=== PATIENT | female | born 1940 | race Caucasian/White ===

== ENCOUNTER → 2018-01-21 10:38 | Outpatient (POV) | payer MEDICARE, BC, SELFPAY ==
[2018-01-21 11:17] VITALS: BP 136/67; PULSE 91; RESP 18; O2SAT 98; BMI 35.6
--- NOTE | 2018-01-21 11:36 | HMH.PAINSOAP ---
[facility] Pain Management SOAP Note Subjective:: She is a pleasant 77-year-old white female who presents today for medication refills. Patient has been in [place] for the last 5 months. Patient has been able to stretch her medication over this time. Patient states that she is ready for her Dougherty 5 mg 1 p.o. 3 times daily refill. Patient is being treated for pain secondary to degenerative disc disease of lumbar spine with lumbar radiculopathy. Patient has done well with epidurals in the past. Patient denies any side effects or medication. Patient is taking Lyrica from her primary care physician and states that it does well for her. Patient's COLTON #[id number] reviewed and appropriate. Patient will go for UDS today. She rates her pain a 6 out of 10 mainly in her back. ROS General: no recent weight change, no fever, no sleep disturbances Respiratory: no cough, no shortness of air, no recurring pulmonary infections Cardiovascular/Peripheral Vascular: No chest pain, No palpitations, no edema, no shortness of breath. Gastrointestinal: no incontinence, normal bowel movements reported Genitourinary: no incontinence Musculoskeletal: Back pain, leg pain Psychiatric: normal mood/ affect, [denies depression], [denies anxiety] Neurological: [denies weakness in extremities], [denies balance issues] Objective:: Physical Exam General: Alert and oriented x3, no acute distress, pleasant and cooperative, [on room air] Lungs: Resps E/U, Symmetrical chest expansion, Eyes: PERRL Musculoskeletal: Flexion and extension of lumbar spine somewhat guarded secondary to pain, deep tendon reflexes normal, strength in upper and lower extremities [5/5], [abnormal gait noted] Neurological: speech clear, refractory manager equal, no gross sensory deficits Assessment:: Degenerative disc disease of lumbar spine with lumbar radiculopathy Plan:: We will refill the patient's medication give her 2 prescriptions of Dougherty 5 mg 1 p.o. 3 times daily. Patient's Colton reviewed and patient will go for UDS today. Dr. Brown has reviewed this chart and agrees with this plan of care. I will follow-up with this patient in 2 months. Patient has been prescribed a controlled substance after being counseled on the medication, medication safety, and possible side effects. COLTON report has been obtained and reviewed prior to prescription and found to be appropriate. Opioid contract was reviewed and signed by the patient, and that they have agreed to all of the terms set forth by our compliance program. This note was dictated using voice recognition software and may contain errors or omissions
--- NOTE | 2018-01-21 11:39 | P.CONS_ITS ---
[facility] Pain Management SOAP Note Subjective:: She is a pleasant 77-year-old white female who presents today for medication refills. Patient has been in [place] for the last 5 months. Patient has been able to stretch her medication over this time. Patient states that she is ready for her [place] 5 mg 1 p.o. 3 times daily refill. Patient is being treated for pain secondary to degenerative disc disease of lumbar spine with lumbar radiculopathy. Patient has done well with epidurals in the past. Patient denies any side effects or medication. Patient is taking Lyrica from her primary care physician and states that it does well for her. Patient's COLTON # [id number] reviewed and appropriate. Patient will go for UDS today. She rates her pain a 6 out of 10 mainly in her back. ROS General: no recent weight change, no fever, no sleep disturbances Respiratory: no cough, no shortness of air, no recurring pulmonary infections Cardiovascular/Peripheral Vascular: No chest pain, No palpitations, no edema, no shortness of breath. Gastrointestinal: no incontinence, normal bowel movements reported Genitourinary: no incontinence Musculoskeletal: Back pain, leg pain Psychiatric: normal mood/ affect, [denies depression], [denies anxiety] Neurological: [denies weakness in extremities], [denies balance issues] Objective:: Physical Exam General: Alert and oriented x3, no acute distress, pleasant and cooperative, [ on room air] Lungs: Resps E/U, Symmetrical chest expansion, Eyes: PERRL Musculoskeletal: Flexion and extension of lumbar spine somewhat guarded secondary to pain, deep tendon reflexes normal, strength in upper and lower extremities [5/5], [abnormal gait noted] Neurological: speech clear, wood finisher apprentice equal, no gross sensory deficits Assessment:: Degenerative disc disease of lumbar spine with lumbar radiculopathy Plan:: We will refill the patient's medication give her 2 prescriptions of Cres[place] 5 mg 1 p.o. 3 times daily. Patient's Colton reviewed and patient will go for UDS today. Dr. Brown has reviewed this chart and agrees with this plan of care. I will follow-up with this patient in 2 months. Patient has been prescribed a controlled substance after being counseled on the medication, medication safety, and possible side effects. COLTON report has been obtained and reviewed prior to prescription and found to be appropriate. Opioid contract was reviewed and signed by the patient, and that they have agreed to all of the terms set forth by our compliance program. This note was dictated using voice recognition software and may contain errors or omissions
[2018-01-21 15:30] LABS: Amphetamine/Metha Screen,Urine Negative ng/mL (<1000); Barbiturates Screen,Urine Negative ng/mL (<200); Benzodiazepines Screen,Urine Negative ng/mL (200); Cannabinoid Screen,Urine Negative ng/mL (<50); Cocaine Screen,Urine Negative ng/g (<300); Methadone Screen,Urine Negative ng/mL (<300); Opiate Screen,Urine Positive ng/mL (<300); Phencyclidine Screen,Urine Negative ng/mL (<25)
[2018-01-28 19:11] LABS: Codeine Negative (Cutoff=100); Hydrocodone Positive (.); Hydromorphone Positive (.); Morphine Negative (Cutoff=100)
[2018-01-30 15:20] LABS: Opiates Positive (.)
== END ==
PROVIDERS: Family Provider Family Medicine; PCP Family Medicine; Visit Provider Clinical Nurse Specialist Family Health
DX: M54.16 Radiculopathy, lumbar region (principal); Z79.899 Other long term (current) drug therapy
CPT/HCPCS: 80305; 80361; 80365; 99212; G0480

== ENCOUNTER → 2018-02-05 09:59 | Outpatient (CLI) | payer MEDICARE, BC, SELFPAY ==
--- NOTE | 2018-02-05 10:01 | MM_ITS ---
MM Dig screening mamm BI w/CAD CAD Screening ORDERING PHYSICIAN : Peter Persaud MD PATIENT AGE: 77 years GENDER: Female COMPARISON: Previous mammograms: July 2016, 2014.. June 2015 TECHNIQUE: Standard CC and MLO images were obtained. R2 CAD reviewed. FINDINGS: Low-density breast with generalized fatty replacement with minimal fibroglandular elements No dominant mass nor suspicious calcifications either breast. No subcutaneous change since prior studies. Scattered benign appearing calcifications mainly skin calcifications probably with some additional benign punctate calcifications within the breast bilaterally. These are not of concern. Stable and can be followed. . No new mass densities or architectural distortion. Follow-up in one year recommended: IMPRESSION: ...... Stable bilateral mammogram. No new areas of concern Follow up one year BI-RADS Category: 1 Negative RECOMMENDED FOLLOW-UP: 1YR - 1 YEAR FOLLOW-UP (A letter has been sent to the patient regarding results of the study.)
== END ==
PROVIDERS: Family Provider Family Medicine; PCP Family Medicine; Visit Provider Nurse Practitioner Obstetrics & Gynecology
DX: Z12.31 Encounter for screening mammogram for malignant neoplasm of breast (principal)
CPT/HCPCS: 77067

== ENCOUNTER → 2018-03-17 13:09 | Outpatient (POV) | payer MEDICARE, BC, SELFPAY ==
[2018-03-17 13:23] VITALS: BP 144/51; PULSE 76; RESP 18; O2SAT 98; BMI 35.6
--- NOTE | 2018-03-17 13:23 | HMH.PAINSOAP ---
[facility] Pain Management SOAP Note Subjective:: Patient is a pleasant 77-year-old white female who presents today for medication refills. Patient's been doing well on her current medication regimen of [place] 5 mg 1 p.o. 3 times daily for patient is doing well on this and her Lyrica from her primary care physician. Patient's COLTON #[id number] reviewed and appropriate. Patient's UDS has been appropriate in the past. She rates her pain a 0 out of 10 today. We are treating the patient for pain secondary to degenerative disc disease of the lumbar spine with lumbar radiculopathy. ROS General: no recent weight change, no fever, no sleep disturbances Respiratory: no cough, no shortness of air, no recurring pulmonary infections Cardiovascular/Peripheral Vascular: No chest pain, No palpitations, no edema, no shortness of breath. Gastrointestinal: no incontinence, normal bowel movements reported Genitourinary: no incontinence Musculoskeletal: Back pain, leg pain Psychiatric: normal mood/ affect Neurological: [denies weakness in extremities], [denies balance issues] Objective:: Physical Exam General: Alert and oriented x3, no acute distress, pleasant and cooperative, [on room air] Lungs: Resps E/U, Symmetrical chest expansion, Eyes: PERRL Musculoskeletal: Flexion and extension of lumbar spine somewhat guarded secondary to pain, deep tendon reflexes normal, strength in upper and lower extremities [5/5], [abnormal gait noted] Neurological: speech clear, oracle database architect equal, no gross sensory deficits Assessment:: Degenerative disc disease of the lumbar spine with lumbar radiculopathy Plan:: We will refill the patient's medication give HER-2 prescriptions of [place] 5 mg 1 p.o. 3 times daily. Patient's Colton and urine drug screen both reviewed. Dr. Brown has reviewed this chart and agrees with this plan of care. We will follow-up with the patient in 2 months. Patient has been prescribed a controlled substance after being counseled on the medication, medication safety, and possible side effects. COLTON report has been obtained and reviewed prior to prescription and found to be appropriate. Opioid contract was reviewed and signed by the patient, and that they have agreed to all of the terms set forth by our compliance program. This note was dictated using voice recognition software and may contain errors or omissions
--- NOTE | 2018-03-17 13:26 | P.CONS_ITS ---
[facility] Pain Management SOAP Note Subjective:: Patient is a pleasant 77-year-old white female who presents today for medication refills. Patient's been doing well on her current medication regimen of [place] 5 mg 1 p.o. 3 times daily for patient is doing well on this and her Lyrica from her primary care physician. Patient's COLTON #[id number] reviewed and appropriate. Patient's UDS has been appropriate in the past. She rates her pain a 0 out of 10 today. We are treating the patient for pain secondary to degenerative disc disease of the lumbar spine with lumbar radiculopathy. ROS General: no recent weight change, no fever, no sleep disturbances Respiratory: no cough, no shortness of air, no recurring pulmonary infections Cardiovascular/Peripheral Vascular: No chest pain, No palpitations, no edema, no shortness of breath. Gastrointestinal: no incontinence, normal bowel movements reported Genitourinary: no incontinence Musculoskeletal: Back pain, leg pain Psychiatric: normal mood/ affect Neurological: [denies weakness in extremities], [denies balance issues] Objective:: Physical Exam General: Alert and oriented x3, no acute distress, pleasant and cooperative, [ on room air] Lungs: Resps E/U, Symmetrical chest expansion, Eyes: PERRL Musculoskeletal: Flexion and extension of lumbar spine somewhat guarded secondary to pain, deep tendon reflexes normal, strength in upper and lower extremities [5/5], [abnormal gait noted] Neurological: speech clear, secured entrance monitor equal, no gross sensory deficits Assessment:: Degenerative disc disease of the lumbar spine with lumbar radiculopathy Plan:: We will refill the patient's medication give HER-2 prescriptions of [place] 5 mg 1 p.o. 3 times daily. Patient's Colton and urine drug screen both reviewed. Dr. Brown has reviewed this chart and agrees with this plan of care. We will follow-up with the patient in 2 months. Patient has been prescribed a controlled substance after being counseled on the medication, medication safety, and possible side effects. COLTON report has been obtained and reviewed prior to prescription and found to be appropriate. Opioid contract was reviewed and signed by the patient, and that they have agreed to all of the terms set forth by our compliance program. This note was dictated using voice recognition software and may contain errors or omissions
== END ==
PROVIDERS: Family Provider Family Medicine; PCP Family Medicine; Visit Provider Clinical Nurse Specialist Family Health
DX: M54.16 Radiculopathy, lumbar region (principal)
CPT/HCPCS: 99212

== ENCOUNTER → 2018-05-26 13:06 | Outpatient (POV) | payer MEDICARE, BC, SELFPAY ==
[2018-05-26 13:36] VITALS: BP 122/47; PULSE 87; RESP 18; O2SAT 18; BMI 38.4
--- NOTE | 2018-05-26 14:23 | P.CONS_ITS ---
[facility] Pain Management SOAP Note Subjective:: She is a pleasant 77-year-old white female who presents today for medication refills. Patient's been doing well on her current medication regimen of [place] 5 mg 1 p.o. 3 times daily. Patient is also on Lyrica from her primary care physician. Patient's COLTON #[id number] reviewed and appropriate she rates her pain a 3 out of 10 today. Patient's UDS has been appropriate in the past. We are treating her for pain secondary to degenerative disc disease lumbar spine with lumbar radiculopathy. Patient denies side effects or medication and states it helps up to 80%. ROS General: no recent weight change, no fever, no sleep disturbances Respiratory: no cough, no shortness of air, no recurring pulmonary infections Cardiovascular/Peripheral Vascular: No chest pain, No palpitations, no edema, no shortness of breath. Gastrointestinal: no incontinence, normal bowel movements reported Genitourinary: no incontinence Musculoskeletal: Back pain, leg pain Psychiatric: normal mood/ affect Neurological: [denies weakness in extremities], [denies balance issues] Objective:: Physical Exam General: Alert and oriented x3, no acute distress, pleasant and cooperative, [on room air] Lungs: Resps E/U, Symmetrical chest expansion, Eyes: PERRL Musculoskeletal: Flexion and extension of lumbar spine somewhat guarded secondary to pain, deep tendon reflexes normal, strength in upper and lower extremities [5/5], [abnormal gait noted] Neurological: speech clear, cloth bleaching range tender equal, no gross sensory deficits Assessment:: degenerative disc disease lumbar spine with lumbar radiculopathy Plan:: We will refill the patient's medication and give her 2 months worth of [place] 5 mg 1 p.o. 3 times daily. Patient's current drug screen reviewed. Dr. Brown has reviewed this chart and agrees with this plan of care. We will follow-up with her in 2 months. Patient has been prescribed a controlled substance after being counseled on the medication, medication safety, and possible side effects. COLTON report has been obtained and reviewed prior to prescription and found to be appropriate. Opioid contract was reviewed and signed by the patient, and that they have agreed to all of the terms set forth by our compliance program. This note was dictated using voice recognition software and may contain errors or omissions
[2018-05-26 14:53] LABS: Amphetamine/Metha Screen,Urine Negative ng/mL (<1000); Barbiturates Screen,Urine Negative ng/mL (<200); Benzodiazepines Screen,Urine Negative ng/mL (<200); Cannabinoid Screen,Urine Negative ng/mL (<50); Cocaine Screen,Urine Negative ng/mL (<300); Methadone Screen,Urine Negative ng/mL (<300); Opiate Screen,Urine Positive ng/mL (<300); Phencyclidine Screen,Urine Negative ng/mL (<25)
[2018-06-03 00:07] LABS: Codeine Negative (Cutoff=100); Hydrocodone Positive (.); Hydromorphone Positive (.); Morphine Negative (Cutoff=100)
[2018-06-03 07:37] LABS: Opiates Positive (.)
== END ==
PROVIDERS: Family Provider Family Medicine; PCP Family Medicine; Visit Provider Clinical Nurse Specialist Family Health
DX: M51.16 Intervertebral disc disorders with radiculopathy, lumbar region (principal); Z79.899 Other long term (current) drug therapy
CPT/HCPCS: 80305; 80361; 80365; 99213; G0480

== ENCOUNTER → 2018-07-28 13:02 | Outpatient (POV) | payer MEDICARE, BC, SELFPAY ==
[2018-07-28 13:14] VITALS: BP 133/62; PULSE 93; RESP 18; O2SAT 98; BMI 38.4
--- NOTE | 2018-07-28 13:25 | P.CONS_ITS ---
[facility] Pain Management SOAP Note Subjective:: A pleasant 77-year-old white female who presents today for medication refills. Patient is being treated for pain secondary to degenerative disc disease lumbar spine with lumbar radiculopathy. Patient is currently being medically managed with [place] 5 mg 1 p.o. 3 times daily. Patient's urine drug screens have been appropriate. Patient's COLTON reviewed and appropriate. Patient states her pain is a 4 out of 10. She is continue with day care home provider and doing very well with this. She denies side effects or medication and states it helps up to 80% with her symptoms. ROS General: no recent weight change, no fever, no sleep disturbances Respiratory: no cough, no shortness of air, no recurring pulmonary infections Cardiovascular/Peripheral Vascular: No chest pain, No palpitations, no edema, no shortness of breath. Gastrointestinal: no incontinence, normal bowel movements reported Genitourinary: no incontinence Musculoskeletal: Back pain Psychiatric: normal mood/ affect Neurological: [denies weakness in extremities], [denies balance issues] Objective:: Physical Exam General: Alert and oriented x3, no acute distress, pleasant and cooperative, [on room air] Lungs: Resps E/U, Symmetrical chest expansion, Eyes: PERRL Musculoskeletal: Flexion and extension of lumbar spine somewhat guarded secondary to pain, deep tendon reflexes normal, strength in upper and lower extremities [5/5], [abnormal gait noted] Neurological: speech clear, entry level electrician equal, no gross sensory deficits Assessment:: Degenerative disc disease lumbar spine with lumbar radiculopathy Plan:: We will refill the patient's [place] 5 mg 1 p.o. 3 times daily and give her 2 months worth of medication. Patient will follow-up in 3 months. 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 Dr. Brown is re viewed this chart and agrees with this plan of care. Patient has been prescribed a controlled substance after being counseled on the medication, medication safety, and possible side effects. COLTON report has been obtained and reviewed prior to prescription and found to be appropriate. Opioid contract was reviewed and signed by the patient, and that they have agreed to all of the terms set forth by our compliance program. This note was dictated using voice recognition software and may contain errors or omissions
== END ==
PROVIDERS: PCP Family Medicine; Visit Provider Clinical Nurse Specialist Family Health
DX: M51.16 Intervertebral disc disorders with radiculopathy, lumbar region (principal)
CPT/HCPCS: 99213

== ENCOUNTER → 2018-11-04 11:14 | Outpatient (POV) | payer MEDICARE, BC, SELFPAY ==
[2018-11-04 11:23] VITALS: BP 184/60; PULSE 94; RESP 18; O2SAT 98; BMI 38.5
--- NOTE | 2018-11-04 12:10 | HMH.PAINSOAP ---
[facility] Pain Management SOAP Note Subjective:: Patient is a very pleasant 78-year-old white female who presents today for medication refills. She is being treated for pain secondary to degenerative disc disease lumbar spine with lumbar radiculopathy. Patient's UDS and COLTON been appropriate. She states her pain is a 2 out of 10 today. She is continuing with resident care provider and doing well with this. She denies side effects from medication and states it helps up to 80% with her symptoms. ROS General: no recent weight change, no fever, no sleep disturbances Respiratory: no cough, no shortness of air, no recurring pulmonary infections Cardiovascular/Peripheral Vascular: No chest pain, No palpitations, no edema, no shortness of breath. Gastrointestinal: no incontinence, normal bowel movements reported Genitourinary: no incontinence Musculoskeletal: Back pain Psychiatric: normal mood/ affect Neurological: [denies weakness in extremities], [denies balance issues] Objective:: Physical Exam General: Alert and oriented x3, no acute distress, pleasant and cooperative, [on room air] Lungs: Resps E/U, Symmetrical chest expansion, Eyes: PERRL Musculoskeletal: Flexion and extension of lumbar spine somewhat guarded secondary to pain, deep tendon reflexes normal, strength in upper and lower extremities [5/5], [abnormal gait noted] Neurological: speech clear, rangelands conservation laborer equal, no gross sensory deficits Assessment:: Degenerative disc disease lumbar spine with lumbar radiculopathy Plan:: We will refill the patient's [place] 5 mg 1 p.o. 3 times daily and give her 1 month worth of medication. She is to follow-up in 3 months and slate picker her additional prescriptions in the interim. Patient's been instructed to call the office if she has any issues prior to her next appointment. Patient has been prescribed a controlled substance after being counseled on the medication, medication safety, and possible side effects. COLTON report has been obtained and reviewed prior to prescription and found to be appropriate. Opioid contract was reviewed and signed by the patient, and that they have agreed to all of the terms set forth by our compliance program. Dr. Brown has reviewed this note and agrees with this plan of care. This note was dictated using voice recognition software and may contain errors or omissions
== END ==
PROVIDERS: PCP Family Medicine; Visit Provider Clinical Nurse Specialist Family Health
DX: M51.16 Intervertebral disc disorders with radiculopathy, lumbar region (principal)
CPT/HCPCS: 99213

== ENCOUNTER → 2019-01-26 14:18 | Outpatient (POV) | payer MEDICARE, BC, SELFPAY ==
[2019-01-26 14:20] VITALS: BP 169/54; PULSE 97; RESP 18; O2SAT 98; BMI 38.4
--- NOTE | 2019-01-26 14:38 | HMH.PAINSOAP ---
[facility] Pain Management SOAP Note Subjective:: Patient is a pleasant 78-year-old white female who presents today for medication refills. She is being treated for pain secondary to degenerative disc disease lumbar spine with lumbar radiculopathy. Patient rates her pain a 6 out of 10 today. She says her pain was okay until she lifted her walker out of her car prior to coming into the office. Generally her pain medication helps up to 80% with her symptoms. She denies any effects to the medication. The patient does state that she is planning to see Dr. Hayden with orthopedics in the next few months to discuss surgery for her right hip. She has had her left hip and bilateral knee surgery by Dr. Hayden in the past. Patient is being medically managed with [place] 5 mg 1 p.o. 3 times daily. ROS General: no recent weight change, no fever, no sleep disturbances Respiratory: no cough, no shortness of air, no recurring pulmonary infections Cardiovascular/Peripheral Vascular: No chest pain, No palpitations, no edema, no shortness of breath. Gastrointestinal: no incontinence, normal bowel movements reported Genitourinary: no incontinence Musculoskeletal: Back pain Psychiatric: normal mood/ affect, [denies depression], [denies anxiety] Neurological: [denies weakness in extremities], [denies balance issues] Objective:: Physical Exam General: Alert and oriented x3, no acute distress, pleasant and cooperative, [on room air] Lungs: Resps E/U, Symmetrical chest expansion, Eyes: PERRL Musculoskeletal: Flexion and extension of lumbar spine somewhat guarded secondary to pain, deep tendon reflexes normal, strength in upper and lower extremities [5/5], [abnormal gait noted secondary to right hip pain] Neurological: speech clear, senior infrastructure engineer equal, no gross sensory deficits Assessment:: Narrative disc disease lumbar spine with lumbar radiculopathy Plan:: We will refill the patient's [place] 5 mg 1 p.o. 3 times daily and give her 2 months worth of medication. She is to follow-up in 3 months and diamond picker her additional prescriptions in the interim. She has been instructed to call the office if she has any issues prior to her next appointment. Her Colton #[id number] has been reviewed and is appropriate. Patient has been prescribed a controlled substance after being counseled on the medication, medication safety, and possible side effects. COLTON report has been obtained and reviewed prior to prescription and found to be appropriate. Opioid contract was reviewed and signed by the patient, and that they have agreed to all of the terms set forth by our compliance program. Dr. Brown has reviewed this note and agrees with this plan of care. This note was dictated using voice recognition software and may contain errors or omissions
--- NOTE | 2019-01-26 14:41 | P.CONS_ITS ---
[facility] Pain Management SOAP Note Subjective:: Patient is a pleasant 78-year-old white female who presents today for medication refills. She is being treated for pain secondary to degenerative disc disease lumbar spine with lumbar radiculopathy. Patient rates her pain a 6 out of 10 today. She says her pain was okay until she lifted her walker out of her car prior to coming into the office. Generally her pain medication helps up to 80% with her symptoms. She denies any effects to the medication. The patient does state that she is planning to see Dr. Hayden with orthopedics in the next few months to discuss surgery for her right hip. She has had her left hip and bilateral knee surgery by Dr. Hayden in the past. Patient is being medically managed with [place] 5 mg 1 p.o. 3 times daily. ROS General: no recent weight change, no fever, no sleep disturbances Respiratory: no cough, no shortness of air, no recurring pulmonary infections Cardiovascular/Peripheral Vascular: No chest pain, No palpitations, no edema, no shortness of breath. Gastrointestinal: no incontinence, normal bowel movements reported Genitourinary: no incontinence Musculoskeletal: Back pain Psychiatric: normal mood/ affect, [denies depression], [denies anxiety] Neurological: [denies weakness in extremities], [denies balance issues] Objective:: Physical Exam General: Alert and oriented x3, no acute distress, pleasant and cooperative, [on room air] Lungs: Resps E/U, Symmetrical chest expansion, Eyes: PERRL Musculoskeletal: Flexion and extension of lumbar spine somewhat guarded secondary to pain, deep tendon reflexes normal, strength in upper and lower extremities [5/5], [abnormal gait noted secondary to right hip pain] Neurological: speech clear, insurance sales associate equal, no gross sensory deficits Assessment:: Narrative disc disease lumbar spine with lumbar radiculopathy Plan:: We will refill the patient's [place] 5 mg 1 p.o. 3 times daily and give her 2 months worth of medication. She is to follow-up in 3 months and garbage pick up man her additional prescriptions in the interim. She has been instructed to call the office if she has any issues prior to her next appointment. Her Colton #[id number] has been reviewed and is appropriate. Patient has been prescribed a controlled substance after being counseled on the medication, medication safety, and possible side effects. COLTON report has been obtained and reviewed prior to prescription and found to be appropriate. Opioid contract was reviewed and signed by the patient, and that they have agreed to all of the terms set forth by our compliance program. Dr. Brown has reviewed this note and agrees with this plan of care. This note was dictated using voice recognition software and may contain errors or omissions
[2019-01-26 16:35] LABS: Amphetamine/Metha Screen,Urine Negative ng/mL (<1000); Barbiturates Screen,Urine Negative ng/mL (<200); Benzodiazepines Screen,Urine Negative ng/mL (<200); Cannabinoid Screen,Urine Negative ng/mL (<50); Cocaine Screen,Urine Negative ng/mL (<300); Methadone Screen,Urine Negative ng/mL (<300); Opiate Screen,Urine Positive ng/mL (<300); Phencyclidine Screen,Urine Negative ng/mL (<25)
[2019-02-01 14:09] LABS: Codeine Negative (Cutoff=100); Hydrocodone Positive (.); Hydromorphone Positive (.); Morphine Negative (Cutoff=100)
[2019-02-01 15:57] LABS: Opiates Positive (.)
== END ==
PROVIDERS: PCP Family Medicine; Visit Provider Clinical Nurse Specialist Family Health
DX: M51.16 Intervertebral disc disorders with radiculopathy, lumbar region (principal); Z79.899 Other long term (current) drug therapy
CPT/HCPCS: 80305; 80361; 80365; 99212; G0480

== ENCOUNTER → 2019-04-14 09:19 | Outpatient (CLI) | payer MEDICARE, BC, SELFPAY ==
--- NOTE | 2019-04-14 09:22 | MM_ITS ---
PROCEDURE: MM DIG SCREENING MAMM BI W/CAD CLINICAL INDICATION: Routine Screening Mammogram There is no personal or family history of breast cancer. There has been a previous biopsy left breast for benign disease. COMPARISON: [facility] DIG MAMM-SCREEN BRIANA from 08/16/2015 [facility] DIG MAMM-SCREEN BRIANA from 08/22/2016 [facility] MM Dig screening mamm BI w/CAD from 02/05/2018 TECHNIQUE: Standard CC and MLO images were obtained. R2 CAD reviewed. FINDINGS: The breasts are composed primarily of fat with minimal scattered fibroglandular densities in the subareolar regions bilaterally. There are scattered benign-appearing microcalcifications in each breast. There is no suspicious lesion and no suspicious microcalcifications. IMPRESSION: Fibrofatty parenchyma with no suspicious lesions seen BI-RAD Category: 2 Benign Finding(s) FOLLOW-UP: 1YR 1 Year Follow-up (A letter has been sent to the patient regarding results of the study.) Dictated by: Dr. Severiano Zuleta MD 04/17/2019 12:03 Signed by: <Electronically signed by Dr. Severiano Zuleta MD in [place]> 04/17/2019 12:03
--- NOTE | 2019-04-14 09:22 | XR_ITS ---
PROCEDURE: XR CHEST 2V CLINICAL HISTORY: HX MELANOMA COMPARISON: CXR CHEST(2 VIEWS-NOT PORTABLE) from 01/21/2014 CXR CHEST(2 VIEWS-NOT PORTABLE) from 05/03/2017 FINDINGS: The cardiomediastinal silhouette and pulmonary vascularity are within normal limits.The lungs are clear without infiltrates, suspicious nodules, or pleural effusions. There is minimal blunting of the right costophrenic angle.No acute bony abnormalities. There is prominent degenerative change of the AC joint both shoulders. IMPRESSION: No acute findings. Dictated by: Dr. Severiano Zuleta MD 04/14/2019 10:44 Signed by: <Electronically signed by Dr. Severiano Zuleta MD in [place]> 04/14/2019 10:44
== END ==
PROVIDERS: PCP Family Medicine; Visit Provider Nurse Practitioner Obstetrics & Gynecology
DX: Z12.31 Encounter for screening mammogram for malignant neoplasm of breast (principal); Z85.820 Personal history of malignant melanoma of skin
CPT/HCPCS: 71046; 77067

== ENCOUNTER → 2019-04-20 13:09 | Outpatient (POV) | payer MEDICARE, BC, SELFPAY ==
[2019-04-20 13:38] VITALS: BP 147/63; PULSE 96; RESP 18; O2SAT 98; BMI 38.4
--- NOTE | 2019-04-20 13:52 | HMH.PAINSOAP ---
[facility] Pain Management SOAP Note Subjective:: Patient is a pleasant 78-year-old white female who presents today for medication refills. She being treated for pain secondary to degenerative disc disease lumbar spine with lumbar radiculopathy. She rates her pain a 4 out of 10 today. She is currently being medically managed with [place] 5 mg 1 p.o. 3 times daily. oClton #[id number] reviewed and appropriate she denies side effects or medication. Overall she is done well with her medication. She is considering moving into an assisted living. ROS General: no recent weight change, no fever, no sleep disturbances Respiratory: no cough, no shortness of air, no recurring pulmonary infections Cardiovascular/Peripheral Vascular: No chest pain, No palpitations, no edema, no shortness of breath. Gastrointestinal: no incontinence, normal bowel movements reported Genitourinary: no incontinence Musculoskeletal: Back pain, leg pain Psychiatric: normal mood/ affect Neurological: [denies weakness in extremities], [denies balance issues] Objective:: Physical Exam General: Alert and oriented x3, no acute distress, pleasant and cooperative, [on room air] Lungs: Resps E/U, Symmetrical chest expansion, Eyes: PERRL Musculoskeletal: Flexion and extension of lumbar spine somewhat guarded secondary to pain, deep tendon reflexes normal, strength in upper and lower extremities [5/5], [abnormal gait noted] Neurological: speech clear, technical sales support manager equal, no gross sensory deficits Assessment:: Degenerative disc disease lumbar spine with lumbar radiculopathy Plan:: We will refill her [place] 5 mg 1 p.o. 3 times daily give her 2 months with medication we will follow-up with her in 3 months she can curing pickling packer an additional prescription in the interim. Colton reviewed and appropriate. Urine drug screens have been appropriate she is been instructed to call the office if she has any issues prior to her next appointment. Patient has been prescribed a controlled substance after being counseled on the medication, medication safety, and possible side effects. COLTON report has been obtained and reviewed prior to prescription and found to be appropriate. Opioid contract was reviewed and signed by the patient, and that they have agreed to all of the terms set forth by our compliance program. Dr. Brown has reviewed this note and agrees with this plan of care. This note was dictated using voice recognition software and may contain errors or omissions Pain Management Hx Components *Have you ever received a pneumonia vaccine?: Yes *Have you received a flu vaccine this season?: Yes - *Social History *Occupational Status:: other *Travel in the last 8 weeks: None
== END ==
PROVIDERS: PCP Family Medicine; Visit Provider Clinical Nurse Specialist Family Health
DX: M51.16 Intervertebral disc disorders with radiculopathy, lumbar region (principal)
CPT/HCPCS: 99212

== ENCOUNTER → 2019-07-13 13:08 | Outpatient (POV) | payer MEDICARE, BC, SELFPAY ==
[2019-07-13 13:22] VITALS: BP 172/61; PULSE 89; RESP 18; O2SAT 94; BMI 36.1
--- NOTE | 2019-07-13 14:09 | HMH.PAINSOAP ---
[facility] Pain Management SOAP Note Subjective:: Patient is a pleasant 78-year-old white female who presents today for medication refills she is being treated for pain secondary to degenerative disc disease lumbar spine with lumbar radiculopathy she rates her pain a 4 out of 10 she is currently being medically managed with [place] 5 mg 1 p.o. 3 times daily Colton #[id number] reviewed and appropriate. Urine drug screen is appropriate. She denies side effects to her medications. She states it helps up to 80%. ROS General: no recent weight change, no fever, no sleep disturbances Respiratory: no cough, no shortness of air, no recurring pulmonary infections Cardiovascular/Peripheral Vascular: No chest pain, No palpitations, no edema, no shortness of breath. Gastrointestinal: no new onset incontinence, normal bowel movements reported Genitourinary: no new onset incontinence Musculoskeletal: Back pain, leg pain Psychiatric: normal mood/ affect, , Neurological: [denies new onset weakness in extremities], [denies new onset balance issues] Objective:: Physical Exam General: Alert and oriented x3, no acute distress, pleasant and cooperative, [on room air] Lungs: Resps E/U, Symmetrical chest expansion, Eyes: PERRL Musculoskeletal: Flexion and extension of lumbar spine somewhat guarded secondary to pain, deep tendon reflexes normal, strength in upper and lower extremities [5/5], [abnormal gait noted] Neurological: speech clear, sleep manager equal, no gross sensory deficits Assessment:: Degenerative disc disease lumbar spine with lumbar radiculopathy Plan:: We will refill the patient's [place] 5 mg 1 p.o. 3 a day and give her 2 months worth of medication we will follow-up with her in 3 months reassess her symptoms at that time she is able to chart picker her third month in the interim. Is been instructed to call the office if she has any issues prior to her next appointment Patient has been prescribed a controlled substance after being counseled on the medication, medication safety, and possible side effects. COLTON report has been obtained and reviewed prior to prescription and found to be appropriate. Opioid contract was reviewed and signed by the patient, and that they have agreed to all of the terms set forth by our compliance program. Dr. Brown has reviewed this note and agrees with this plan of care. This note was dictated using voice recognition software and may contain errors or omissions [facility] History I have reviewed the patient's past medical history: Yes Medical History: Reports:: Diabetes Mellitus Type 2, Hyperlipidemia, Hypertension, Lung Disease (asthma, katie cpap) Denies:: Diabetes Mellitus Type 1, Internal Pacemaker, Seizures *Have you ever received a pneumonia vaccine?: Yes *Have you received a flu vaccine this season?: Yes Other Surgeries: Yes: Appendectomy, Other (cataract, ankle fx, hip fx). No: Pacemaker - *Social History *Occupational Status:: retired *Travel in the last 8 weeks: None Family Hx:: Non-contributory
--- NOTE | 2019-07-13 14:13 | P.CONS_ITS ---
[facility] Pain Management SOAP Note Subjective:: Patient is a pleasant 78-year-old white female who presents today for medication refills she is being treated for pain secondary to degenerative disc disease lumbar spine with lumbar radiculopathy she rates her pain a 4 out of 10 she is currently being medically managed with [place] 5 mg 1 p.o. 3 times daily Colton #[id number] reviewed and appropriate. Urine drug screen is appropriate. She denies side effects to her medications. She states it helps up to 80%. ROS General: no recent weight change, no fever, no sleep disturbances Respiratory: no cough, no shortness of air, no recurring pulmonary infections Cardiovascular/Peripheral Vascular: No chest pain, No palpitations, no edema, no shortness of breath. Gastrointestinal: no new onset incontinence, normal bowel movements reported Genitourinary: no new onset incontinence Musculoskeletal: Back pain, leg pain Psychiatric: normal mood/ affect, , Neurological: [denies new onset weakness in extremities], [denies new onset balance issues] Objective:: Physical Exam General: Alert and oriented x3, no acute distress, pleasant and cooperative, [on room air] Lungs: Resps E/U, Symmetrical chest expansion, Eyes: PERRL Musculoskeletal: Flexion and extension of lumbar spine somewhat guarded secondary to pain, deep tendon reflexes normal, strength in upper and lower extremities [5/5], [abnormal gait noted] Neurological: speech clear, wood router equal, no gross sensory deficits Assessment:: Degenerative disc disease lumbar spine with lumbar radiculopathy Plan:: We will refill the patient's [place] 5 mg 1 p.o. 3 a day and give her 2 months worth of medication we will follow-up with her in 3 months reassess her symptoms at that time she is able to roll picker her third month in the interim. Is been instructed to call the office if she has any issues prior to her next appointment Patient has been prescribed a controlled substance after being counseled on the medication, medication safety, and possible side effects. COLTON report has been obtained and reviewed prior to prescription and found to be appropriate. Opioid contract was reviewed and signed by the patient, and that they have agreed to all of the terms set forth by our compliance program. Dr. Brown has reviewed this note and agrees with this plan of care. This note was dictated using voice recognition software and may contain errors or omissions [facility] History I have reviewed the patient's past medical history: Yes Medical History: Reports:: Diabetes Mellitus Type 2, Hyperlipidemia, Hypertension, Lung Disease (asthma, katie cpap) Denies:: Diabetes Mellitus Type 1, Internal Pacemaker, Seizures *Have you ever received a pneumonia vaccine?: Yes *Have you received a flu vaccine this season?: Yes Other Surgeries: Yes: Appendectomy, Other (cataract, ankle fx, hip fx). No: Pacemaker - *Social History *Occupational Status:: retired *Travel in the last 8 weeks: None Family Hx:: Non-contributory
[2019-07-13 20:02] LABS: Amphetamine/Metha Screen,Urine Negative ng/mL (<1000); Barbiturates Screen,Urine Negative ng/mL (<200); Benzodiazepines Screen,Urine Negative ng/mL (<200); Cannabinoid Screen,Urine Negative ng/mL (<50); Cocaine Screen,Urine Negative ng/mL (<300); Methadone Screen,Urine Negative ng/mL (<300); Opiate Screen,Urine Positive ng/mL (<300); Phencyclidine Screen,Urine Negative ng/mL (<25)
[2019-07-19 13:40] LABS: Codeine Negative (Cutoff=100); Hydrocodone Positive (.); Hydromorphone Positive (.); Morphine Negative (Cutoff=100)
[2019-07-20 06:38] LABS: Opiates Positive (.)
== END ==
PROVIDERS: PCP Family Medicine; Visit Provider Clinical Nurse Specialist Family Health
DX: M51.16 Intervertebral disc disorders with radiculopathy, lumbar region (principal); Z79.899 Other long term (current) drug therapy
CPT/HCPCS: 80305; 80361; 80365; 99212; G0480

== ENCOUNTER → 2019-10-12 13:10 | Outpatient (POV) | payer MEDICARE, BC, SELFPAY ==
[2019-10-12 13:23] VITALS: BP 156/62; PULSE 115; RESP 18; O2SAT 99; BMI 36.1
--- NOTE | 2019-10-12 13:30 | HMH.PAINSOAP ---
[facility] Pain Management SOAP Note Subjective:: Patient is a pleasant 78-year-old white female who presents today for medication refills. She is being treated for pain secondary to degenerative disc disease lumbar spine with lumbar radiculopathy symptoms. She rates her pain a 5 out of 10 today. She is currently managed with [place] 5 mg 1 tablet p.o. 3 times daily. She denies any side effects from medications. Her [place] #[id number] report has been reviewed and is appropriate. Her urine drug screens are appropriate. Her morphine equivalent is 0. Review of Systems General: No recent weight changes, no fever, no sleep disturbances Respiratory: No cough, no shortness of air, no recurring pulmonary infections Cardiovascular/peripheral vascular: No chest pain, no palpitations, no edema, no shortness of breath Gastrointestinal: No new onset incontinence, normal bowel movements reported Genitourinary: No new onset incontinence Musculoskeletal: Low back pain Psychiatric: Normal mood/affect Neurological: [Denies weakness in extremities], [denies balance issues] Objective:: Physical exam General: Alert and oriented x3, no acute distress, pleasant and cooperative, [on room air] Lungs: Respirations even and unlabored, symmetrical chest expansion Eyes: PERRL Musculoskeletal: Flexion and extension of lumbar spine somewhat guarded secondary to pain, deep tendon reflexes normal, strength in upper and lower extremities [5/5], [abnormal gait noted] Neurological: Speech clear, adobe block maker equal, no gross sensory deficit Assessment:: Degenerative disc disease lumbar spine with lumbar radiculopathy symptoms Plan:: We will refill the patient's [place] 5 mg 1 tablet p.o. 3 times daily. We will give HER-2 and she can sweet pickled fruit maker her third month in the interim. We will see her back in the clinic in 3 months to reassess her symptoms. She has been instructed to contact clinic if she has any concerns before next appointment. Dr. Brown has reviewed this note and agrees with this plan of care. This note was dictated using voice recognition software and make contain errors or omissions. [facility] History Medical History: Reports:: Diabetes Mellitus Type 2, Hyperlipidemia, Hypertension, Lung Disease (asthma, katie cpap) Denies:: Diabetes Mellitus Type 1, Internal Pacemaker, Seizures *Have you ever received a pneumonia vaccine?: Yes *Have you received a flu vaccine this season?: Yes Other Surgeries: Yes: Appendectomy, Other (cataract, ankle fx, hip fx). No: Pacemaker - *Social History *Occupational Status:: other *Travel in the last 8 weeks: None Family Hx:: Non-contributory
[2019-10-12 19:17] LABS: Amphetamine/Metha Screen,Urine Negative ng/mL (<1000); Barbiturates Screen,Urine Negative ng/mL (<200); Benzodiazepines Screen,Urine Negative ng/mL (<200); Cannabinoid Screen,Urine Negative ng/mL (<50); Cocaine Screen,Urine Negative ng/mL (<300); Methadone Screen,Urine Negative ng/mL (<300); Opiate Screen,Urine Positive ng/mL (<300); Phencyclidine Screen,Urine Negative ng/mL (<25)
[2019-10-20 10:19] LABS: Codeine Negative (Cutoff=100); Hydrocodone Positive (.); Hydromorphone Positive (.); Morphine Negative (Cutoff=100)
[2019-10-20 11:51] LABS: Opiates Positive (.)
== END ==
PROVIDERS: Clinical Nurse Specialist Family Health; PCP Family Medicine; Visit Provider Clinical Nurse Specialist Family Health
DX: Z79.899 Other long term (current) drug therapy (principal); M51.16 Intervertebral disc disorders with radiculopathy, lumbar region
CPT/HCPCS: 80305; 80361; 80365; 99212; G0480

== ENCOUNTER → 2020-01-05 11:15 | Outpatient (POV) | payer MEDICARE, BC, SELFPAY ==
[2020-01-05 11:33] VITALS: BP 178/80; PULSE 101; RESP 22; TEMP 36.6; O2SAT 97; BMI 37.1
--- NOTE | 2020-01-05 11:55 | P.CONS_ITS ---
[facility] Pain Management SOAP Note Subjective:: Is a pleasant 79-year-old white female who presents today for medication refills she is being treated for pain secondary to degenerative disc disease lumbar spine with lumbar radiculopathy symptoms she rates her pain today 4 out of 10. She is currently managed with [place] 5 mg 1 tab p.o. 3 times daily she denies side effects to her medication. Colton reviewed and appropriate. Urine drug screens have been appropriate. ROS General: no recent weight change, no fever, no sleep disturbances Respiratory: no cough, no shortness of air, no recurring pulmonary infections Cardiovascular/Peripheral Vascular: No chest pain, No palpitations, no edema, no shortness of breath. Gastrointestinal: no new onset incontinence, normal bowel movements reported Genitourinary: no new onset incontinence Musculoskeletal: Low back pain Psychiatric: normal mood/ affect, [denies depression], [denies anxiety] Neurological: [denies new onset weakness in extremities], [denies new onset balance issues] Objective:: Physical Exam General: Alert and oriented x3, no acute distress, pleasant and cooperative, [on room air] Lungs: Resps E/U, Symmetrical chest expansion, Eyes: PERRL Musculoskeletal: Flexion and extension of lumbar spine somewhat guarded secondary to pain, deep tendon reflexes normal, strength in upper and lower extremities [5/5], [abnormal gait noted] Neurological: speech clear, storekeeper engineering equal, no gross sensory deficits Assessment:: Degenerative disc disease lumbar spine with lumbar radiculopathy Plan:: We will refill her [place] 5 mg 1 p.o. 3 times daily give her 2 months worth of medication. She can bulk picker her /3-month prescription in the interim and return patient's been instructed to call the office if he has any issues prior to her next appointment. Patient has been prescribed a controlled substance after being counseled on the medication, medication safety, and possible side effects. COLTON report has been obtained and reviewed prior to prescription and found to be appropriate. Opioid contract was reviewed and signed by the patient, and that they have agreed to all of the terms set forth by our compliance program. We specifically discussed risk factors for Covid-19 including age, heart or lung disease, diabetes, immunosuppression and travel. We also discussed that NSAIDs may worsen Covid-19 infection symptoms and that they should not be used to treat Covid-19 symptoms. Patient was also informed that corticosteroids in any form oral or injectable will decrease immune response and may increase risk of Covid-[address] Brown has reviewed this patient's chart and this note and agrees with plan of care. Patient has been instructed to call the office if they have any issues prior to the next appointment. [facility] History I have reviewed the patient's past medical history: Yes Medical History: Reports:: Diabetes Mellitus Type 2, Hyperlipidemia, Hypertension, Lung Disease (asthma, katie cpap) Denies:: Diabetes Mellitus Type 1, Internal Pacemaker, Seizures *Have you ever received a pneumonia vaccine?: Yes *Have you received a flu vaccine this season?: Yes Other Surgeries: Yes: Appendectomy, Other (cataract, ankle fx, hip fx). No: Pacemaker - *Social History *Occupational Status:: retired *Travel in the last 8 weeks: None Family Hx:: Non-contributory
== END ==
PROVIDERS: PCP Family Medicine; Visit Provider Clinical Nurse Specialist Family Health
DX: M51.16 Intervertebral disc disorders with radiculopathy, lumbar region (principal)
CPT/HCPCS: 99212

== ENCOUNTER → 2020-04-18 11:47 | Outpatient (POV) | payer MEDICARE, BC, SELFPAY ==
[2020-04-18 12:49] VITALS: BP 127/74; PULSE 74; RESP 18; O2SAT 98; BMI 34.5
--- NOTE | 2020-04-18 12:57 | HMH.PAINSOAP ---
[facility] Pain Management SOAP Note Subjective:: She is a pleasant 79-year-old white female who presents today for medication refills. She is being treated for pain secondary to degenerative disc disease lumbar spine lumbar radiculopathy symptoms. She rates her pain today 6 out of 10. She is currently medically managed with [place] 5 mg 1 tab p.o. 3 times daily. Colton #[id number] reviewed and appropriate. Drug screens have been appropriate. Patient is awaiting a hip replacement by Dr. Hayden. She is scheduled for that this next month. ROS General: no recent weight change, no fever, no sleep disturbances Respiratory: no cough, no shortness of air, no recurring pulmonary infections Cardiovascular/Peripheral Vascular: No chest pain, No palpitations, no edema, no shortness of breath. Gastrointestinal: no new onset incontinence, normal bowel movements reported Genitourinary: no new onset incontinence Musculoskeletal: Hip pain, back pain Psychiatric: normal mood/ affect, Neurological: [denies new onset weakness in extremities], [denies new onset balance issues] Objective:: Physical Exam General: Alert and oriented x3, no acute distress, pleasant and cooperative, [on room air] Lungs: Resps E/U, Symmetrical chest expansion, Eyes: PERRL Musculoskeletal: Flexion and extension of lumbar spine somewhat guarded secondary to pain, deep tendon reflexes normal, strength in upper and lower extremities [5/5], [abnormal gait noted] Neurological: speech clear, hog counter equal, no gross sensory deficits Assessment:: Degenerative disc disease lumbar spine lumbar radiculopathy, arthritis Plan:: We will continue the patient's [place] 5 mg 1 p.o. 3 times daily. We will give her 2 months worth of medication. We will follow-up with her in 3 months reassess her symptoms at that time she has been instructed to call the office if she has any issues prior to her next appointment. Patient has been prescribed a controlled substance after being counseled on the medication, medication safety, and possible side effects. COLTON report has been obtained and reviewed prior to prescription and found to be appropriate. Opioid contract was reviewed and signed by the patient, and that they have agreed to all of the terms set forth by our compliance program. Dr. Brown has reviewed this note and agrees with this plan of care. This note was dictated using voice recognition software and may contain errors or omissions [facility] History I have reviewed the patient's past medical history: Yes Medical History: Reports:: Diabetes Mellitus Type 2, Hyperlipidemia, Hypertension, Lung Disease (asthma, katie cpap) Denies:: Diabetes Mellitus Type 1, Internal Pacemaker, Seizures *Have you ever received a pneumonia vaccine?: Yes *Have you received a flu vaccine this season?: Yes Other Surgeries: Yes: Appendectomy, Other (cataract, ankle fx, hip fx). No: Pacemaker - *Social History *Occupational Status:: other *Travel in the last 8 weeks: None Family Hx:: Non-contributory
== END ==
PROVIDERS: PCP Family Medicine; Visit Provider Clinical Nurse Specialist Family Health
DX: M51.16 Intervertebral disc disorders with radiculopathy, lumbar region (principal); M19.90 Unspecified osteoarthritis, unspecified site
CPT/HCPCS: 99212

== ENCOUNTER → 2020-05-10 11:54 | Outpatient (CLI) | payer MEDICARE, BC, SELFPAY ==
--- NOTE | 2020-05-10 12:03 | XR_ITS ---
PROCEDURE: XR CHEST 2V CLINICAL HISTORY: SOB, PRE-OP COMPARISON: CR CXR CHEST(2 VIEWS-NOT PORTABLE) from 01/21/2014 CR CXR CHEST(2 VIEWS-NOT PORTABLE) from 05/03/2017 CR XR CHEST 2V from 04/14/2019 FINDINGS: There is cardiomegaly with mild pulmonary venous congestion suggesting mild CHF. Chronic changes are present in the lingula. There is a small right pleural effusion. There is mild chronic wedge changes of T12. There is chronic coarsening of the bronchovascular markings. IMPRESSION: Mild CHF with chronic changes of the lungs with small right pleural effusion Dictated by: Janusz Tamayo MD 05/10/2020 18:08 Janusz Tamayo MD in [place] 05/10/2020 18:08
[2020-05-10 12:32] LABS: Microscopic, Urine URINE MICROSCOPIC (MICROSCOPIC)
[2020-05-10 12:56] LABS: Appearance,Urine CLEAR (Clear); Bilirubin,Urine Negative (Negative); Blood, Urine Negative (Negative); Color,Urine YELLOW (Yellow); Glucose,Urine (UA) Negative (Negative); Ketones,Urine Negative (Negative); Leukocyte Esterase,Urine TRACE (Negative); Nitrate,Urine POSITIVE (Negative); PH,Urine 6.5 (5.0-8.5); Protein,Urine Negative (Negative); Specific Gravity, Urine 1.015 (1.005-1.030); Urobilinogen,Urine 0.2 EU/dl (0.2)
--- NOTE | 2020-05-10 12:59 | ECG_ITS ---
APPROVED REPORT Exam: Resting ECG HR:68 bpm ECG Measurements Heart Rate 68 AXES PA 206 P 38 QRSd 78 QRS 73 QT 436 T 56 QTc 463 <Conclusion> Normal sinus rhythm,First Degree AV Block Incomplete RBBB Otherwise a normal ECG Electronically signed by : Salinas Steiner, 05/10/2020 13:54:08
[2020-05-10 13:01] LABS: Basophils % 0.5 % (0.1-2.0); Eosinophils # 0.1 K/mm3 (0.0-0.4); Eosinophils % 2.4 % (0.1-12.0); Hematocrit 37.3 % (37.0-47.0); Hemoglobin 12.2 g/dL (12.2-16.2); Lymphocytes # 1.6 K/mm3 (0.7-4.5); Lymphocytes % 27.1 % (10-50); Mean Corpuscular HGB Conc 32.7 g/dL (31.8-35.4); Mean Corpuscular Hemoglobin 29.3 pg (27.0-31.2); Mean Corpuscular Volume 89.6 fl (81-99); Mean Platelet Volume 8.3 fl (7.4-10.4); Monocytes # 0.5 K/mm3 (0.1-1.0); Monocytes % 8.5 % (1.7-9.3); Neutrophils # 3.6 K/mm3 (1.8-7.8); Neutrophils % 61.5 % (37.0-80.0); Platelet Count 201 K/mm3 (142-424); Red Blood Count 4.17 M/mm3 (4.20-5.40); Red Cell Distribution Width 14.9 % (11.5-17.5); White Blood Count 5.9 K/mm3 (4.8-10.8)
[2020-05-10 13:19] LABS: Bacteria,Urine Trace /lpf; Yeast,Urine 3+ /lpf
[2020-05-10 13:26] LABS: Chloride 101 mmol/L (98-107); Potassium 3.3 mmoL/L (3.5-5.1); Sodium 141 mmol/L (136-145)
[2020-05-10 13:29] LABS: Alanine Aminotransferase 11 U/L (12-78); Albumin Level 3.4 g/dl (3.5-5.0); Albumin/Globulin Ratio 1.3 (1.1-1.8); Alkaline Phosphatase 62 U/L (38-126); Anion Gap 9.3 mEq/L (5-15); Aspartate Amino Transferase 28 U/L (14-36); Bilirubin,Total 0.7 mg/dl (0.2-1.3); Blood Urea Nitrogen 14 mg/dl (7-17); Carbon Dioxide 34 mmol/L (22.0-30.0); Estimated Glomerular Filt Rate 80 ml/min (>60); GFR (African American) 97 ML/MIN (>60); Globulin 2.7 g/dL (1.3-3.2); Glucose 92 mg/dl (74-100); Total Protein,Serum 6.1 g/dl (6.3-8.2)
[2020-05-10 15:31] LABS: Activated Partial Thrombo Time 27.4 seconds (23.6-34.0); INR 1.08 (0.9-1.1); Prothrombin Time 10.8 seconds (9.4-11.8)
[2020-05-11 16:47] LABS: Prealbumin 16 mg/dL (9-32)
== END ==
PROVIDERS: PCP Family Medicine; Visit Provider Family Medicine
DX: Z01.818 Encounter for other preprocedural examination (principal); N39.41 Urge incontinence; E11.9 Type 2 diabetes mellitus without complications; Z79.84 Long term (current) use of oral hypoglycemic drugs; Z51.81 Encounter for therapeutic drug level monitoring
CPT/HCPCS: 36415; 71046; 80053; 81001; 83036; 84134; 85025; 85610; 85730; 87086; 87088; 87186; 93005

== ENCOUNTER → 2020-07-07 10:29 | Outpatient (CLI) | payer MEDICARE, BC, SELFPAY ==
--- NOTE | 2020-07-07 10:29 | MM_ITS ---
PROCEDURE: MM DIG SCREENING MAMM BI W/CAD Digital Breast Tomosynthesis Included CLINICAL INDICATION: Routine Screening Mammogram No personal or family history of breast cancer. There has been a previous biopsy left breast for benign disease. COMPARISON: MG DMSB DIG MAMM-SCREEN BRIANA from 08/22/2016 MG SCBI MM Dig screening mamm BI w/CAD from 02/05/2018 MG MM DIG SCREENING MAMM BI W/CAD from 04/14/2019 TECHNIQUE: Standard CC and MLO images and 3D Tomosynthesis was obtained. R2 CAD reviewed. FINDINGS: Mild to moderate scattered fibroglandular densities are seen in both breast. There are multiple scattered benign-appearing calcifications in each breast many of which appear to be secretory in nature in the right subareolar region. Zeferino images are helpful and there is no suspicious lesions seen in either breast. There are no suspicious microcalcifications. IMPRESSION: Fibrofatty parenchyma with no suspicious lesions seen BI-RAD Category: 2 Benign Finding(s) FOLLOW-UP: 1YR 1 Year Follow-up (A letter has been sent to the patient regarding results of the study.) Dictated by: Dr. Severiano Zuleta MD 07/08/2020 11:35 Dr. Severiano Zuleta MD in [place] 07/08/2020 11:35
== END ==
PROVIDERS: PCP Family Medicine; Visit Provider Nurse Practitioner Obstetrics & Gynecology
DX: Z12.31 Encounter for screening mammogram for malignant neoplasm of breast (principal)
CPT/HCPCS: 77063; 77067

== ENCOUNTER → 2020-07-14 10:14 | Outpatient (POV) | payer MEDICARE, BC, SELFPAY ==
[2020-07-14 10:36] VITALS: BP 182/82; PULSE 82; RESP 18; TEMP 36.7; O2SAT 98; BMI 33.0
--- NOTE | 2020-07-14 13:11 | HMH.PAINSOAP ---
[facility] Pain Management SOAP Note Subjective:: Patient is a pleasant 79-year-old white female who presents today for follow-up. She has been treated for chronic low back pain with lumbar radiculopathy symptoms. Patient reports that she recently had a right hip replacement with Dr. Hayden in April 2020. She is doing very well. She also underwent physical therapy at home. Patient rates her pain at 5 out of 10 today. She says that she is doing much better since having her right hip replaced. She is also currently wearing an left ankle brace. She did see a physician regarding continued left ankle pain, however, was not considered a surgical candidate. She is managed in our clinic with [place] 5 mg 1 tablet p.o. 3 times daily. Her [place] #[id number] has been reviewed and is appropriate. Drug screen is appropriate. Morphine equivalent is 0. She denies any side effects to the medication. Review of Systems General: No recent weight changes, no fever, no sleep disturbances Respiratory: No cough, no shortness of air, no recurring pulmonary infections Cardiovascular/peripheral vascular: No chest pain, no palpitations, no edema, no shortness of breath Gastrointestinal: No new onset incontinence, normal bowel movements reported Genitourinary: No new onset incontinence Musculoskeletal: Low back pain Psychiatric: Normal mood/affect Neurological: [Denies weakness in extremities], [denies balance issues] Objective:: Physical exam General: Alert and oriented x3, no acute distress, pleasant and cooperative, [on room air] Lungs: Respirations even and unlabored, symmetrical chest expansion Eyes: PERRL Musculoskeletal: Flexion and extension of lumbar spine somewhat guarded secondary to pain, deep tendon reflexes normal, strength in upper and lower extremities [5/5], [abnormal gait noted] Neurological: Speech clear, 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 3 times daily. She is doing well with this medication regimen. She says she is feeling much better since having her hip replaced as well. We will give the patient 3 months worth medication see her back in the clinic in 3 months to reassess her symptoms. She has been instructed to contact the clinic if she has any concerns before next appointment. The patient and I specifically discussed risk factors for COVID19. These risks include, but are not limited to age greater than 60, heart or lung disease, diabetes, immunosuppression, and travel. We also discussed NSAIDs may worsen COVID19 infection or symptoms. Patient should not use NSAIDs to treat COVID19 signs or symptoms. Patient was also informed that any type of corticosteroid of any form (oral or injection) will decrease the patient's immune system response and may increase the likelihood of COVID19 infection and symptoms[address] Dr. Brown has reviewed this note and agrees with this plan of care. This note was dictated using voice recognition software and make contain errors or omissions. Patient has been prescribed a controlled substance after being counseled on the medication, medication safety, and possible side effects. COLTON report has been obtained and reviewed prior to prescription and found to be appropriate. Opioid contract was reviewed and signed by the patient, and that they have agreed to all of the terms set forth by our compliance program. [facility] History I have reviewed the patient's past medical history: Yes Medical History: Reports:: Diabetes Mellitus Type 2, Hyperlipidemia, Hypertension, Lung Disease (asthma, katie cpap) Denies:: Diabetes Mellitus Type 1, Internal Pacemaker, Seizures *Have you ever received a pneumonia vaccine?: Yes *Have you received a flu vaccine this season?: Yes Other Surgeries: Yes: Appendectomy, Other (cataract, ankle fx, hip fx). No: Pacemaker - *Social H
== END ==
PROVIDERS: PCP Family Medicine; Visit Provider Clinical Nurse Specialist Family Health
DX: M51.16 Intervertebral disc disorders with radiculopathy, lumbar region (principal)
CPT/HCPCS: 99212

== ENCOUNTER → 2020-09-14 13:06 | Outpatient (POV) | payer MEDICARE, BC, SELFPAY | DX: Z00.00 Encounter for general adult medical examination without abnormal findings (principal) ==

== ENCOUNTER → 2020-10-20 10:28 | Outpatient (POV) | payer MEDICARE, BC, SELFPAY ==
[2020-10-20 11:19] VITALS: BP 136/74; PULSE 74; RESP 18; O2SAT 98; BMI 34.5
--- NOTE | 2020-10-20 11:34 | P.CONS_ITS ---
[facility] Pain Management SOAP Note Subjective:: Patient is an 79-year-old white female who presents today for follow-up and for medication refills. The patient is being treated for pain secondary to degenerative disc disease lumbar spine with lumbar radiculopathy symptoms. She is managed with [place] 5 mg 1 tablet p.o. 3 times daily. She denies any side effects to the medication. She says that she is doing well overall. Patient does report that her nephew recently from [place]. She says that he is the only person that helps her. She is very tearful today regarding this. She does say, however, she gets 70 to 80% relief with her medication regimen. She is a 5 out of 10 pain today. Colton and drug screens are appropriate today. Review of Systems General: No recent weight changes, no fever, no sleep disturbances Respiratory: No cough, no shortness of air, no recurring pulmonary infections Cardiovascular/peripheral vascular: No chest pain, no palpitations, no edema, no shortness of breath Gastrointestinal: No new onset incontinence, normal bowel movements reported Genitourinary: No new onset incontinence Musculoskeletal: Low back pain Psychiatric: Normal mood/affect Neurological: [Denies weakness in extremities], [denies balance issues] Objective:: Physical exam General: Alert and oriented x3, no acute distress, pleasant and cooperative, [on room air] Lungs: Respirations even and unlabored, symmetrical chest expansion Eyes: PERRL Musculoskeletal: Flexion and extension of lumbar spine somewhat guarded secondary to pain, deep tendon reflexes normal, strength in upper and lower extremities [5/5], [abnormal gait noted] Neurological: Speech clear, underbaster equal, no gross sensory deficit Assessment:: Degenerative disc disease lumbar spine with lumbar radiculopathy symptoms Plan:: We will refill the patient's [place] 5 mg 1 tablet p.o. 3 times daily. We will give the patient 2 months of medication. She can call the clinic in the interim months for her third month of medication. We will see her back in the clinic in 3 months. She has been instructed to contact clinic if she has any concerns before her next appointment. Risks and benefits of the medication have been explained in detail to the patient. The patient has been advised to consult with his/her primary care provider and pharmacist regarding drug-drug interaction of medications currently prescribed. Dr. Brown has reviewed this note and agrees with this plan of care. This note was dictated using voice recognition software and make contain errors or omissions. Patient has been prescribed a controlled substance after being counseled on the medication, medication safety, and possible side effects. COLTON report has been obtained and reviewed prior to prescription and found to be appropriate. Opioid contract was reviewed and signed by the patient, and that they have agreed to all of the terms set forth by our compliance program. [facility] History I have reviewed the patient's past medical history: Yes Medical History: Reports:: Diabetes Mellitus Type 2, Hyperlipidemia, Hypertension, Lung Disease (asthma, katie cpap) Denies:: Diabetes Mellitus Type 1, Internal Pacemaker, Seizures *Have you ever received a pneumonia vaccine?: Yes *Have you received a flu vaccine this season?: Yes Other Surgeries: Yes: Appendectomy, Other (cataract, ankle fx, hip fx). No: Pacemaker - *Social History *Occupational Status:: other *Travel in the last 8 weeks: None Family Hx:: Non-contributory
== END ==
PROVIDERS: PCP Family Medicine; Visit Provider Clinical Nurse Specialist Family Health
DX: M51.16 Intervertebral disc disorders with radiculopathy, lumbar region (principal)
CPT/HCPCS: 99212; G0463

== ENCOUNTER → 2021-01-19 10:17 | Outpatient (POV) | payer MEDICARE, BC, SELFPAY ==
[2021-01-19 10:34] VITALS: PULSE 61; RESP 18; O2SAT 96; BMI 35.0
--- NOTE | 2021-01-19 10:51 | P.CONS_ITS ---
[facility] Pain Management SOAP Note Subjective:: Patient is an 80-year-old white female who presents today for follow-up and medication refills. She has been treated for degenerative disc disease lumbar spine with lumbar radiculopathy symptoms. Patient rates her pain a 5 out of 10 today. She will undergo a drug screen. She reports her pain to be in her left ankle at this time. She does have a new brace that she has to her left ankle that she wears while walking. She says this has helped with her pain. She had an ankle fracture approximately 10 years ago and has residual pain to the area. She is managed in the clinic with [place] 5 mg 1 tablet p.o. 3 times daily. She denies any side effects. The patient says that she is doing well overall with the medication regimen and gets up to 70 to 80% relief. Her morphine equivalent is 0. Her [place] #[id number] has been reviewed and is appropriate. Review of Systems General: No recent weight changes, no fever, no sleep disturbances Respiratory: No cough, no shortness of air, no recurring pulmonary infections Cardiovascular/peripheral vascular: No chest pain, no palpitations, no edema, no shortness of breath Gastrointestinal: No new onset incontinence, normal bowel movements reported Genitourinary: No new onset incontinence Musculoskeletal: Chronic low back pain with left ankle pain Psychiatric: Normal mood/affect Neurological: [Denies weakness in extremities], [denies balance issues] Objective:: Physical exam General: Alert and oriented x3, no acute distress, pleasant and cooperative, [on room air] Lungs: Respirations even and unlabored, symmetrical chest expansion Eyes: PERRL Musculoskeletal: Flexion and extension of lumbar spine somewhat guarded secondary to pain, deep tendon reflexes normal, strength in upper and lower extremities [5/5], slightly antalgic gait noted Neurological: Speech clear, roll scale man equal, no gross sensory deficit Assessment:: Degenerative disc disease lumbar spine with lumbar radiculopathy symptoms, left ankle pain Plan:: We will refill the patient's [place] 5 mg 1 tablet p.o. 3 times daily. We will give her 2 months of medication she c Patient has been prescribed a controlled substance after being counseled on the medication, medication safety, and possible side effects. COLTON report has been obtained and reviewed prior to prescription and found to be appropriate. Opioid contract was reviewed and signed by the patient, and that they have agreed to all of the terms set forth by our compliance program.an follow-up with a call in the interim and we will refill her third month. We will schedule her for a 3- month follow-up. She has been instructed to contact clinic if she has any concerns before next appointment. Dr. Brown has reviewed this note and agrees with this plan of care. This note was dictated using voice recognition software and make contain errors or omissions. [facility] History I have reviewed the patient's past medical history: Yes Medical History: Reports:: Diabetes Mellitus Type 2, Hyperlipidemia, Hypertension, Lung Disease (asthma, katie cpap) Denies:: Diabetes Mellitus Type 1, Internal Pacemaker, Seizures *Have you ever received a pneumonia vaccine?: Yes *Have you received a flu vaccine this season?: Yes Other Surgeries: Yes: Appendectomy, Other (cataract, ankle fx, hip fx). No: Pacemaker - *Social History Smoking Status: Never smoker Alcohol Intake: never *Occupational Status:: retired *Travel in the last 8 weeks: None Family Hx:: Non-contributory
== END ==
PROVIDERS: Visit Provider Clinical Nurse Specialist Family Health
DX: M51.16 Intervertebral disc disorders with radiculopathy, lumbar region (principal); M25.572 Pain in left ankle and joints of left foot
CPT/HCPCS: 99212; G0463

== ENCOUNTER → 2021-04-10 10:39 | Outpatient (POV) | payer MEDICARE, BC, SELFPAY ==
[2021-04-10 10:47] VITALS: BP 180/75; PULSE 78; RESP 18; O2SAT 96; BMI 35.5
--- NOTE | 2021-04-10 10:53 | HMH.PAINSOAP ---
[facility] Pain Management SOAP Note Subjective:: Patient is an 80-year-old white female who presents today for follow-up for medication refills. She has been treated for degenerative disc disease lumbar spine with lumbar radiculopathy symptoms. Patient says her pain is baseline 5 out of 10 today. She does have pain in her left ankle that is chronic. She does use a brace to the area for walking. She has had an ankle fracture in the past with which causes residual pain to the area. Patient's [place] #[id number] has been reviewed and is appropriate. Morphine equivalent is 0. She denies any side effects. She is managed with [place] 5 mg 1 tablet p.o. 3 times daily. Review of Systems General: No recent weight changes, no fever, no sleep disturbances Respiratory: No cough, no shortness of air, no recurring pulmonary infections Cardiovascular/peripheral vascular: No chest pain, no palpitations, no edema, no shortness of breath Gastrointestinal: No new onset incontinence, normal bowel movements reported Genitourinary: No new onset incontinence Musculoskeletal: Low back pain, left ankle pain Psychiatric: [Normal mood/affect] Neurological: [Denies weakness in extremities], [denies balance issues] Objective:: Physical exam General: Alert and oriented x3, no acute distress, pleasant and cooperative, [on room air] Lungs: Respirations even and unlabored, symmetrical chest expansion Eyes: PERRL Musculoskeletal: Flexion and extension of [] lumbar [spine] somewhat guarded secondary to pain, strength in upper and lower extremities [5/5], [antalgic gait noted] Neurological: Speech clear, [geodetic technician equal], no gross sensory deficit Assessment:: Degenerative disc disease lumbar spine with lumbar radiculopathy symptoms, left ankle pain Plan:: We will refill the patient's [place] 5 mg 1 tablet p.o. 3 times daily. She will get a month medication and we will plan for a telehealth visit at her next refill. The patient's nephew did pass away from [place]. She does have concerns with being in areas with high risk and her comorbidities. Risks and benefits of the medication have been explained in detail to the patient. The patient has been advised to consult with his/her primary care provider and pharmacist regarding drug-drug interaction of medications currently prescribed. Patient has been prescribed a controlled substance after being counseled on the medication, medication safety, and possible side effects. COLTON report has been obtained and reviewed prior to prescription and found to be appropriate. Opioid contract was reviewed and signed by the patient, and that they have agreed to all of the terms set forth by our compliance program. Patient has been instructed to contact the clinic with any concerns before the next appointment. Dr. Brown has reviewed this note and agrees with this plan of care. This note was dictated using voice recognition software and make contain errors or omissions. [facility] History I have reviewed the patient's past medical history: Yes Medical History: Reports:: Diabetes Mellitus Type 2, Hyperlipidemia, Hypertension, Lung Disease (asthma, katie cpap) Denies:: Diabetes Mellitus Type 1, Internal Pacemaker, Seizures *Have you ever received a pneumonia vaccine?: Yes *Have you received a flu vaccine this season?: No Other Surgeries: Yes: Appendectomy, Other (cataract, ankle fx, hip fx). No: Pacemaker - *Social History Smoking Status: Never smoker Alcohol Intake: never *Occupational Status:: unemployed *Travel in the last 8 weeks: None Family Hx:: Non-contributory
== END ==
PROVIDERS: Visit Provider Clinical Nurse Specialist Family Health
DX: M51.16 Intervertebral disc disorders with radiculopathy, lumbar region (principal); M25.572 Pain in left ankle and joints of left foot
CPT/HCPCS: 99212; G0463

== ENCOUNTER → 2021-05-05 11:16 | Outpatient (CLI) | payer MEDICARE, BC, SELFPAY | PROVIDERS: Visit Provider Internal Medicine Gastroenterology | DX: Z01.812 Encounter for preprocedural laboratory examination (principal); Z20.822 Contact with and (suspected) exposure to COVID-19; Z12.11 Encounter for screening for malignant neoplasm of colon | CPT/HCPCS: U0003 ==

== ENCOUNTER 2021-05-08 07:28 | Day surgery (SDC) | payer MEDICARE, BC, SELFPAY ==
[2021-05-03 14:33] VITALS: BMI 35.5
[2021-05-08 07:52] VITALS: BP 140/62; PULSE 65; RESP 18; TEMP 36.8; O2SAT 92
[2021-05-08 08:11] LABS: POC Glucose,Bedside 111 (70-110)
--- NOTE | 2021-05-08 08:29 | HMH.ANESCL ---
[facility] Anesthesia Checklist - Patient Identification Patient Identification: Arm Band - Structural Data Admitted From: Home Planned Operative Procedure/s: colonoscopy Consent for Planned Operative Procedure(s) Verified: Yes Verified Documents: Surgical Consent, History and Physical - NPO Status Verified Time NPO: 00:00 - Additional verifications Anesthesia Reactions: No - Airway Assessment C-Spine Mobility Assessed: Yes (mp2) TMJ Mobility Assessed: Yes Dentition: Dentures-good fit - Neurological Assessment Level of Consciousness: Awake, Alert - Anesthesia Plan Anesthesia Risk discussed: Yes Anesthesia Plan: Verified ASA Class: III Anesthesia Type: MAC [facility] History I have reviewed the patient's past medical history: Yes Medical History: Reports:: Cancer (skin left eye), Diabetes Mellitus Type 2, Hyperlipidemia, Hypertension, Lung Disease (asthma, katie cpap) Denies:: Diabetes Mellitus Type 1, Internal Pacemaker, MRSA, Seizures *Have you ever received a pneumonia vaccine?: Yes *Have you received a flu vaccine this season?: No Anesthesia experience/problems:: nac Laterality Cases: Bilateral: Cataract, Total Hip Replacement, Total Knee Replacement Other Surgeries: Yes: Appendectomy, Other (cataract, ankle fx, hip fx). No: Pacemaker Amputation: No Fractures: Yes (L ankle ORIF, L arm) - *Social History Last grade of school completed: High school graduate Smoking Status: Never smoker Alcohol Intake: never Substance Use Type: denies use *Occupational Status:: unemployed Household Members: none *Travel in the last 8 weeks: None Family Hx:: Non-contributory
--- NOTE | 2021-05-08 08:57 | HMH.PROC ---
[facility] Procedure Note Procedure Note:: Colonoscopy Procedure Report: Colonoscopy with cold snare polypectomy Endoscopist: Randolph Pineda II, MD Referring physician: Allan Adamson MD Date of Procedure: May 08, 2021 Equipment: Olympus 190 variable stiffness pediatric colonoscope Sedation: MAC sedation Indication: Mrs. Nascimento is an 80-year-old female who is here for surveillance colonoscopy secondary to a personal history of colon polyps. The patient did have a colonoscopy in February 2018 and had 8 colon polyps removed (tubular adenomas x6, serrated adenoma x1/hyperplastic polyp x1) ranging in size from 3 to 11 mm). The patient reports no abdominal pain, weight loss or change in her bowel habits. She does get some intermittent but seldom hemorrhoidal bleeding especially if she has some straining or constipation. Procedure: Prior to the procedure, a history and physical exam was performed, and patient's medications and allergies were reviewed. The risks, benefits and alternatives of the sedation and procedure were discussed with the patient. All questions were answered and informed consent was obtained. The patient was brought to the procedure room. Patient identification and proposed procedure were verified by the physician and the nurse. The patient was placed in a left lateral decubitus position and the scope was passed under direct vision. Throughout the procedure, the patient's blood pressure, pulse, and oxygen saturations were monitored continuously. The colonoscopy was accomplished without difficulty. The patient tolerated the procedure well. Findings: On digital rectal examination there was normal rectal tone. There were no external hemorrhoids. The colonoscope was introduced through the anal canal to the rectum and advanced to the cecum. The ileocecal valve and appendiceal orifice were identified. The scope was advanced a short distance into the ileum which appeared grossly normal. The scope was then withdrawn into the colon. There were 3 colon polyps (cecum x1 (12 mm), ascending x1 (6 mm) and transverse x1 (5 mm)) which were removed via cold snare polypectomy. There were scattered diverticuli throughout the descending and sigmoid colon (LEFT colon). The rectum itself was normal. Upon retroflexion within the rectum there were grade 2 internal hemorrhoids. The preparation was fair throughout with Kelliher Preparation Score of 7 out of 9. The cecal time was 16 minutes. Impression: 1. Colonic polyps x3 2. Left-sided diverticulosis 3. Grade 2 internal hemorrhoids Plan: I will follow up the polyp histology. Based upon the patient's age, I am not convinced that she will require any further surveillance colonoscopy. I will discuss the findings with the patient and family. I would continue a fiber bowel regimen on a long-term daily maintenance basis.
[2021-05-08 09:00] VITALS: BP 137/76; PULSE 65; RESP 12; TEMP 36.3; O2SAT 90
[2021-05-08 09:10] VITALS: BP 162/102; PULSE 57; RESP 12; O2SAT 91
[2021-05-08 09:20] VITALS: BP 187/76; PULSE 72; RESP 16; O2SAT 95
[2021-05-08 09:30] VITALS: BP 189/77; PULSE 64; RESP 16; TEMP 36.3; O2SAT 96
[2021-05-08 12:50] VITALS: O2SAT 97
== END 2021-05-08 09:36 | disposition home or self-care (01) ==
LOC: OUTP 07:30
PROVIDERS: PCP Family Medicine; Visit Provider Internal Medicine Gastroenterology
PROC: 0DJD8ZZ Inspection of Lower Intestinal Tract, Via Natural or Artificial Opening Endoscopic (ICD-10-PCS; CPT 45378; principal; 2021-05-08 08:30)
DX: Z12.11 Encounter for screening for malignant neoplasm of colon (principal); Z86.010 Personal history of colon polyps; K63.5 Polyp of colon; K57.32 Diverticulitis of large intestine without perforation or abscess without bleeding; K64.1 Second degree hemorrhoids; E11.9 Type 2 diabetes mellitus without complications; E78.5 Hyperlipidemia, unspecified; I10 Essential (primary) hypertension; J45.909 Unspecified asthma, uncomplicated; G47.33 Obstructive sleep apnea (adult) (pediatric); Z90.49 Acquired absence of other specified parts of digestive tract; Z85.828 Personal history of other malignant neoplasm of skin
CPT/HCPCS: 45385; 82962; 88305

== ENCOUNTER → 2021-05-11 09:41 | Outpatient (POV) | payer MEDICARE, BC, SELFPAY ==
--- NOTE | 2021-05-11 12:40 | HMH.VVPMSO ---
[facility] PM Virtual Visit SOAP Consent for virtual visit:: With the recent concerns about the COVID-19, we are trying to minimize exposure to you by shifting to telehealth appointments whenever possible. It restricts me from seeing you in person, but the trade off is protecting you during this pandemic. Can you see and hear me okay, and do you consent to this option? If not, I would be happy to see if we can reschedule your appointment in the future, when feasible. Has patient consented to this virtual visit?: Yes Subjective:: Patient is an 80-year-old white female who is following up via telephone for medication refills. The patient is advanced in age with comorbidities placing her at high risk for Covid. To reduce exposure we have agreed to a telephone visit today. 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 Patient does rate her pain a 6 out of 10. She did have a colonoscopy on Saturday. She says prior to the colonoscopy she stopped taking her oral medications for pain management. She wanted to make sure she was not constipated before the procedure. Patient noticed a significant increase in her pain at this time. She denies any side effects to the medication She does take Lyrica as well which is prescribed by her primary care provider. She is managed with us with [place] 5 mg 1 tablet p.o. 3 times daily. Review of Systems General: No recent weight changes, no fever, no sleep disturbances Respiratory: No cough, no shortness of air, no recurring pulmonary infections Cardiovascular/peripheral vascular: No chest pain, no palpitations, no edema, no shortness of breath Gastrointestinal: No new onset incontinence, normal bowel movements reported Genitourinary: No new onset incontinence Musculoskeletal: Chronic low back pain Psychiatric: [Normal mood/affect] Neurological: [Denies weakness in extremities], [denies balance issues] Objective:: Physical exam General: Alert and oriented x3, cooperative and pleasant Assessment:: Degenerative disc disease lumbar spine with lumbar radiculopathy symptoms Plan:: We will refill the patient's [place] 5 mg 1 tablet p.o. 3 times daily. She will get a month medication we will follow up with her in 1 month. [facility] #[id number] has been reviewed and is appropriate. Morphine equivalent is 0. Drug screens have been appropriate. Risks and benefits of the medication have been explained in detail to the patient. The patient has been advised to consult with his/her primary care provider and pharmacist regarding drug-drug interaction of medications currently prescribed. Patient has been prescribed a controlled substance after being counseled on the medication, medication safety, and possible side effects. [place] report has been obtained and reviewed prior to prescription and found to be appropriate. Opioid contract was reviewed and signed by the patient, and that they have agreed to all of the terms set forth by our compliance program. Patient has been instructed to contact the clinic with any concerns before the next appointment. Dr. Brown has reviewed this note and agrees with this plan of care. This note was dictated using voice recognition software and make contain errors or omissions. Time In:: 11:00 Time Out:: 11:[address] [facility] History I have reviewed the patient's past medical history: Yes Medical History: Reports:: Cancer (skin left eye), Diabetes Mellitus Type 2, Hyperlipidemia, Hypertension, Lung Disease (asthma, katie cpap) Denies:: Diabetes Mellitus Type 1, Internal Pacemaker, MRSA, Seizures *Have you ever received a pneumonia vaccine?: Yes *Have you received a flu vaccine this season?: No Laterality Cases: Bilateral: Total Hip Replacement Other Surgeries: Yes: Appendectomy, Other (cataract, ankle fx, hip fx). No: Pacemaker Amputation: No Fractures: Yes (L ankle ORIF, L arm) - *Social History Smoking Status: Never smoker Alcohol Intake: never
== END ==
PROVIDERS: Visit Provider Clinical Nurse Specialist Family Health
DX: M51.16 Intervertebral disc disorders with radiculopathy, lumbar region (principal)
CPT/HCPCS: 99212; G0463

== ENCOUNTER → 2021-06-19 11:03 | Outpatient (POV) | payer MEDICARE, BC, SELFPAY ==
--- NOTE | 2021-06-19 11:11 | HMH.VVPMSO ---
[facility] PM Virtual Visit SOAP Consent for virtual visit:: With the recent concerns about the COVID-19, we are trying to minimize exposure to you by shifting to telehealth appointments whenever possible. It restricts me from seeing you in person, but the trade off is protecting you during this pandemic. Can you see and hear me okay, and do you consent to this option? If not, I would be happy to see if we can reschedule your appointment in the future, when feasible. Has patient consented to this virtual visit?: Yes Subjective:: Patient is an 80-year-old white female who is a telehealth medicine for medication refills. The patient was advised at last visit we can do a telehealth visit to prevent exposure to Covid. Patient is treated for low back pain with lumbar radicular symptoms. We do manage the patient with [place] 5 mg 1 tablet p.o. 3 times daily. The patient denies any side effects. She rates her pain a 4 out of 10. Review of Systems General: No recent weight changes, no fever, no sleep disturbances Respiratory: No cough, no shortness of air, no recurring pulmonary infections Cardiovascular/peripheral vascular: No chest pain, no palpitations, no edema, no shortness of breath Gastrointestinal: No new onset incontinence, normal bowel movements reported Genitourinary: No new onset incontinence Musculoskeletal: Low back pain chronic Psychiatric: [Normal mood/affect] Neurological: [Denies weakness in extremities], [denies balance issues] Objective:: Physical exam General: Alert and oriented x3, no acute distress, pleasant and cooperative Assessment:: Degenerative disc disease lumbar spine with lumbar radiculopathy symptoms Plan:: We will refill the patient's [place] 5 mg 1 tablet p.o. 3 times daily. We will plan a visit within the clinic next visit so that we can obtain a drug screen. Patient's [place] #[id number] has been reviewed and is appropriate. Drug screens are appropriate. Morphine equivalent is 0. Risks and benefits of the medication have been explained in detail to the patient. The patient does understand the risk of dependence on the medication when given over a prolonged period. Patient has been advised of risks of oversedation with the prescribed medication. Narcan has been offered to the paitent in the event of oversedation. Patient has been advised that a family member should also be educated regarding administration of Narcan. The patient has been advised to consult with his/her primary care provider and pharmacist regarding drug-drug interaction of medications currently prescribed. Patient has been prescribed a controlled substance after being counseled on the medication, medication safety, and possible side effects. [place] report has been obtained and reviewed prior to prescription and found to be appropriate. Opioid contract was reviewed and signed by the patient, and that they have agreed to all of the terms set forth by our compliance program. Patient has been instructed to contact the clinic with any concerns before the next appointment. Dr. Brown has reviewed this note and agrees with this plan of care. This note was dictated using voice recognition software and make contain errors or omissions. Time In:: 11:00 Time Out:: 11:10 [facility] History I have reviewed the patient's past medical history: Yes Medical History: Reports:: Cancer (skin left eye), Diabetes Mellitus Type 2, Hyperlipidemia, Hypertension, Lung Disease (asthma, katie cpap) Denies:: Diabetes Mellitus Type 1, Internal Pacemaker, MRSA, Seizures *Have you ever received a pneumonia vaccine?: Yes *Have you received a flu vaccine this season?: Yes Laterality Cases: Bilateral: Total Hip Replacement Other Surgeries: Yes: Appendectomy, Other (cataract, ankle fx, hip fx). No: Pacemaker Amputation: No Fractures: Yes (L ankle ORIF, L arm) - *Social History Smoking Status: Never smoker Alcohol Intake: never Substance Use Type: denies us
== END ==
PROVIDERS: Visit Provider Clinical Nurse Specialist Family Health
DX: M51.16 Intervertebral disc disorders with radiculopathy, lumbar region (principal)
CPT/HCPCS: 99212; G0463

== ENCOUNTER → 2021-07-18 10:23 | Outpatient (CLI) | payer MEDICARE, BC, SELFPAY ==
--- NOTE | 2021-07-18 10:24 | MM_ITS ---
PROCEDURE INFORMATION: Exam: MG Bilateral Screening 3D Mammography Exam date and time: 07/18/2021 10:24 AM Age: 80 years old Clinical indication: Screening mammogram TECHNIQUE: Imaging protocol: Bilateral screening tomosynthesis and 2D mammography including computer-aided detection (CAD) when performed. COMPARISON: 1. MG MM DIG SCREENING MAMM BI W/CAD 07/07/2020 10:39 AM 2. MG MM DIG SCREENING MAMM BI W/CAD 04/14/2019 9:54 AM 3. MG SCBI MM Dig screening mamm BI w/CAD 02/05/2018 10:09 AM 4. MG DMSB DIG MAMM-SCREEN BRIANA 08/22/2016 10:47 AM FINDINGS: MAMMOGRAPHY: Breast composition: There are scattered areas of fibroglandular density. Mass: None. Architectural distortion: No new or suspicious architectural distortion. Calcifications: Stable benign-appearing calcifications are present. No new or suspicious cluster of microcalcifications have developed. Asymmetric density: No new or suspicious asymmetric density is present Skin thickening: None. Axillary adenopathy: None. IMPRESSION: No mammographic evidence of malignancy. Recommend annual screening mammography unless otherwise clinically indicated. ASSESSMENT: BI-RADS category 2: Benign
== END ==
PROVIDERS: PCP Family Medicine; Visit Provider Nurse Practitioner Obstetrics & Gynecology
DX: Z12.31 Encounter for screening mammogram for malignant neoplasm of breast (principal)
CPT/HCPCS: 77063; 77067

== ENCOUNTER → 2021-07-18 11:14 | Outpatient (POV) | payer MEDICARE, BC, SELFPAY ==
[2021-07-18 11:22] VITALS: BP 193/83; PULSE 80; RESP 18; O2SAT 94; BMI 35.0
--- NOTE | 2021-07-18 11:36 | HMH.PAINSOAP ---
[facility] Pain Management SOAP Note Subjective:: Patient is an 80-year-old white female who presents today for medication refills. The patient does have chronic low back pain as well as bilateral lower extremity pain. She is doing well with her medicine. She is currently on [place] 5 mg 1 tablet p.o. 3 times daily and denies any side effects. Last visit was performed via telehealth. The patient has difficulty getting to the clinic with transportation and is advanced age with high risk of Covid. Patient did lose her only living family member this past year to [employer]. She is now along, with few friends. She does have to request transportation from [facility] to get to her appointments. [facility] [place] #[id number] has been reviewed and is appropriate. Direction is appropriate. She denies any side effects from medication. Patient rates her pain a 6 out of 10. Review of Systems General: No recent weight changes, no fever, no sleep disturbances Respiratory: No cough, no shortness of air, no recurring pulmonary infections Cardiovascular/peripheral vascular: No chest pain, no palpitations, no edema, no shortness of breath Gastrointestinal: No new onset incontinence, normal bowel movements reported Genitourinary: No new onset incontinence Musculoskeletal: Chronic low back pain with radiation into bilateral lower extremities Psychiatric: [Normal mood/affect] Neurological: [Denies weakness in extremities], [denies balance issues] Objective:: Physical exam General: Alert and oriented x3, no acute distress, pleasant and cooperative Lungs: Respirations even and unlabored, symmetrical chest expansion Eyes: PERRL Musculoskeletal: Flexion and extension of lumbar [spine] somewhat guarded secondary to pain, [antalgic gait noted] Neurological: Speech clear, no gross sensory deficit Assessment:: Degenerative disc disease lumbar spine with lumbar radiculopathy symptoms Plan:: The patient is doing well with her medication regimen. We will continue her on [place] 5 mg 1 tablet p.o. 3 times daily. We will give the patient a month medication and will follow up with her via telehealth visit in 1 month. Risks and benefits of the medication have been explained in detail to the patient. The patient does understand the risk of dependence on the medication when given over a prolonged period. Patient has been advised of risks of oversedation with the prescribed medication. Narcan has been offered to the paitent in the event of oversedation. Patient has been advised that a family member should also be educated regarding administration of Narcan. The patient has been advised to consult with his/her primary care provider and pharmacist regarding drug-drug interaction of medications currently prescribed. Patient has been prescribed a controlled substance after being counseled on the medication, medication safety, and possible side effects. [place] report has been obtained and reviewed prior to prescription and found to be appropriate. Opioid contract was reviewed and signed by the patient, and that they have agreed to all of the terms set forth by our compliance program. Patient has been instructed to contact the clinic with any concerns before the next appointment. Dr. Brown has reviewed this note and agrees with this plan of care. This note was dictated using voice recognition software and make contain errors or omissions. [facility] History I have reviewed the patient's past medical history: Yes Medical History: Reports:: Cancer (skin left eye), Diabetes Mellitus Type 2, Hyperlipidemia, Hypertension, Lung Disease (asthma, katie cpap) Denies:: Diabetes Mellitus Type 1, Internal Pacemaker, MRSA, Seizures *Have you ever received a pneumonia vaccine?: Yes *Have you received a flu vaccine this season?: Yes Laterality Cases: Bilateral: Total Hip Replacement Other Surgeries: Yes: Appendectomy, Other (cataract, ankle fx, hip fx). No: Pacemaker Amputation: No Fra
[2021-07-18 14:05] LABS: Amphetamine/Metha Screen,Urine Negative ng/ml (<1000)
[2021-07-18 14:06] LABS: Barbiturates Screen,Urine Negative ng/ml (<200); Benzodiazepines Screen,Urine Negative ng/ml (<200)
[2021-07-18 14:07] LABS: Cannabinoid Screen,Urine Negative ng/ml (<50); Cocaine Screen,Urine Negative ng/ml (<300)
[2021-07-18 14:08] LABS: Methadone Screen,Urine Negative ng/ml (<300)
[2021-07-18 14:09] LABS: Opiate Screen,Urine Positive ng/ml (<300)
[2021-07-18 14:10] LABS: Phencyclidine Screen,Urine Negative ng/ml (<25)
== END ==
PROVIDERS: Visit Provider Clinical Nurse Specialist Family Health
DX: M51.16 Intervertebral disc disorders with radiculopathy, lumbar region (principal); Z79.891 Long term (current) use of opiate analgesic; Z12.31 Encounter for screening mammogram for malignant neoplasm of breast
CPT/HCPCS: 77063; 77067; 80305; 99212; G0463

== ENCOUNTER → 2021-08-24 13:03 | Outpatient (POV) | payer MEDICARE, BC, SELFPAY ==
--- NOTE | 2021-08-24 13:30 | HMH.VVPMSO ---
[facility] PM Virtual Visit SOAP Consent for virtual visit:: With the recent concerns about the COVID-19, we are trying to minimize exposure to you by shifting to telehealth appointments whenever possible. It restricts me from seeing you in person, but the trade off is protecting you during this pandemic. Can you see and hear me okay, and do you consent to this option? If not, I would be happy to see if we can reschedule your appointment in the future, when feasible. Has patient consented to this virtual visit?: Yes Subjective:: Patient is an 80-year-old white female who is following up via telehealth medicine today for medication refills. We are doing telehealth visit to decrease patient's exposure to Covid. She does have multiple comorbidities increasing her risk. The patient did lose a family member to Covid this past year. She is doing well with her oral medications. She gets [place] 5 mg 1 tablet p.o. 3 times daily and denies any side effects. She says that the medication is working well. She rates her pain a 2 out of 10 today. [facility] #[id number] has been reviewed and is appropriate. Morphine equivalent is 0. She also takes pregabalin prescribed by Dr. Adamson. She did undergo interventional therapies in the past which gave minimal relief. As result she does continue with oral medication management. She does well with her regimen at this time. Review of Systems General: No recent weight changes, no fever, no sleep disturbances Respiratory: No cough, no shortness of air, no recurring pulmonary infections Cardiovascular/peripheral vascular: No chest pain, no palpitations, no edema, no shortness of breath Gastrointestinal: No new onset incontinence, normal bowel movements reported Genitourinary: No new onset incontinence Musculoskeletal: Chronic low back pain manageable at this time Psychiatric: [Normal mood/affect] Neurological: [Denies weakness in extremities], [denies balance issues] Objective:: Physical exam General: Alert and oriented x3, no acute distress, pleasant and cooperative Assessment:: Degenerative disc disease lumbar spine with lumbar radiculopathy symptoms Plan:: We will continue the patient's [place] 5 mg 1 tablet p.o. 3 times daily. She will get a month medication will be back in the clinic next visit. Risks and benefits of the medication have been explained in detail to the patient. The patient does understand the risk of dependence on the medication when given over a prolonged period. Patient has been advised of risks of oversedation with the prescribed medication. Narcan has been offered to the paitent in the event of oversedation. Patient has been advised that a family member should also be educated regarding administration of Narcan. The patient has been advised to consult with his/her primary care provider and pharmacist regarding drug-drug interaction of medications currently prescribed. Patient has been prescribed a controlled substance after being counseled on the medication, medication safety, and possible side effects. [place] report has been obtained and reviewed prior to prescription and found to be appropriate. Opioid contract was reviewed and signed by the patient, and that they have agreed to all of the terms set forth by our compliance program. Patient has been instructed to contact the clinic with any concerns before the next appointment. Dr. Brown has reviewed this note and agrees with this plan of care. This note was dictated using voice recognition software and make contain errors or omissions. Time In:: 13:00 Time Out:: 13:15 [facility] History I have reviewed the patient's past medical history: Yes Medical History: Reports:: Cancer (skin left eye), Diabetes Mellitus Type 2, Hyperlipidemia, Hypertension, Lung Disease (asthma, katie cpap) Denies:: Diabetes Mellitus Type 1, Internal Pacemaker, MRSA, Seizures *Have you ever received a pneumonia vaccine?: Yes *Have you received
== END ==
PROVIDERS: Visit Provider Clinical Nurse Specialist Family Health
DX: M51.16 Intervertebral disc disorders with radiculopathy, lumbar region (principal)
CPT/HCPCS: 99212; G0463

== ENCOUNTER → 2021-09-21 14:32 | Outpatient (POV) | payer MEDICARE, BC, SELFPAY ==
[2021-09-21 14:46] VITALS: BP 129/65; PULSE 85; RESP 18; O2SAT 95; BMI 35.0
--- NOTE | 2021-09-21 15:09 | HMH.PAINSOAP ---
[facility] Pain Management SOAP Note Subjective:: Patient is an 80-year-old white female who presents today for medication refills. She is treated for chronic low back pain. She is doing well with her medication regimen. She has been doing every other visit via telehealth due to high risk Covid exposure. [place] #[id number] has been reviewed and is appropriate. Drug screens have been appropriate. Morphine equivalent is 15. Patient has had family members with Covid over the last year. She says her medications are working well for her, and does rate her pain a 5 out of 10 today. Review of Systems General: No recent weight changes, no fever, no sleep disturbances Respiratory: No cough, no shortness of air, no recurring pulmonary infections Cardiovascular/peripheral vascular: No chest pain, no palpitations, no edema, no shortness of breath Gastrointestinal: No new onset incontinence, normal bowel movements reported Genitourinary: No new onset incontinence Musculoskeletal: Low back pain with radiation into bilateral lower extremities Psychiatric: [Normal mood/affect] Neurological: [Denies weakness in extremities], [denies balance issues] Objective:: Physical exam General: Alert and oriented x3, no acute distress, pleasant and cooperative Lungs: Respirations even and unlabored, symmetrical chest expansion Eyes: PERRL Musculoskeletal: Flexion and extension of lumbar [spine] somewhat guarded secondary to pain, [antalgic gait noted] Neurological: Speech clear, no gross sensory deficit Assessment:: Degenerative disc disease lumbar spine with lumbar radiculopathy symptoms Plan:: We will continue patient's [place] 5 mg 1 tablet p.o. 3 times daily. Per month medication appointment with [facility] telehealth visit in 1 month. Risks and benefits of the medication have been explained in detail to the patient. The patient does understand the risk of dependence on the medication when given over a prolonged period. Patient has been advised of risks of oversedation with the prescribed medication. Narcan has been offered to the paitent in the event of oversedation. Patient has been advised that a family member should also be educated regarding administration of Narcan. The patient has been advised to consult with his/her primary care provider and pharmacist regarding drug-drug interaction of medications currently prescribed. Patient has been prescribed a controlled substance after being counseled on the medication, medication safety, and possible side effects. [place] report has been obtained and reviewed prior to prescription and found to be appropriate. Opioid contract was reviewed and signed by the patient, and that they have agreed to all of the terms set forth by our compliance program. Patient has been instructed to contact the clinic with any concerns before the next appointment. Dr. Brown has reviewed this note and agrees with this plan of care. This note was dictated using voice recognition software and make contain errors or omissions. [facility] History I have reviewed the patient's past medical history: Yes Medical History: Reports:: Cancer (skin left eye), Diabetes Mellitus Type 2, Hyperlipidemia, Hypertension, Lung Disease (asthma, katie cpap) Denies:: Diabetes Mellitus Type 1, Internal Pacemaker, MRSA, Seizures *Have you ever received a pneumonia vaccine?: Yes *Have you received a flu vaccine this season?: Yes Laterality Cases: Bilateral: Total Hip Replacement Other Surgeries: Yes: Appendectomy, Other (cataract, ankle fx, hip fx). No: Pacemaker Amputation: No Fractures: Yes (L ankle ORIF, L arm) - *Social History Smoking Status: Never smoker Alcohol Intake: never Substance Use Type: denies use *Occupational Status:: unemployed Household Members: none *Travel in the last 8 weeks: None Family Hx:: Non-contributory
== END ==
PROVIDERS: Visit Provider Clinical Nurse Specialist Family Health
DX: M51.16 Intervertebral disc disorders with radiculopathy, lumbar region (principal)
CPT/HCPCS: 99212; G0463

== ENCOUNTER → 2021-10-19 13:19 | Outpatient (POV) | payer MEDICARE, BC, SELFPAY ==
--- NOTE | 2021-10-19 14:30 | P.CONS_ITS ---
[facility] Pain Management SOAP Note Subjective:: This patient is a very pleasant 80-year-old white female who presents today via telehealth visit for follow-up and medication refills. She is currently being treated for degenerative disease of the lumbar spine lumbar radiculopathy. She is currently prescribed hydrocodone 5 mg 1 tablet p.o. 3 times daily but she states that she is currently trying to cut down to 1 tablet a day. However she states that her pain remains uncontrolled with 1 tablet a day for lately with the cold weather. She denies any adverse effects to this medication. She states that the medication helps her maintain her functionality and overall mobility. She rates her pain today as a 6 out of 10. Objective:: General: Alert and oriented x3, no acute distress, pleasant and cooperative Lungs: Resps E/U, symmetric chest expansion Eyes: PERRL Musculoskeletal: limited flexion and extension of the lumbar spine secondary to pain. Deep tendon reflexes were normal in bilateral lower extremities. Motor exam was grossly intact in the bilateral lower extremities, antalgic gait noted. Neurological: Speech is clear, tug master equal, no gross sensory deficits Assessment:: Degenerative disc disease of lumbar spine with lumbar radiculopathy Plan:: I discussed with the patient that we will refill [place] 5 mg 1-2 tablets p.o. twice daily #60 for 1 month supply. I discussed with the patient to take 1 to 2 tablets/day for the management of her chronic pain symptoms. I discussed with the patient depending on how much she is requiring we will potentially wean her to either 30 to 60 tablets for 1 month supply. I will follow up with the patient in 1 month in clinic for reassessment of her chronic pain symptoms and medication refills. [facility] History Medical History: Reports:: Cancer (skin left eye), Diabetes Mellitus Type 2, Hyperlipidemia, Hypertension, Lung Disease (asthma, katie cpap) Denies:: Diabetes Mellitus Type 1, Internal Pacemaker, MRSA, Seizures *Have you ever received a pneumonia vaccine?: Yes *Have you received a flu vaccine this season?: Yes Laterality Cases: Bilateral: Total Hip Replacement Other Surgeries: Yes: Appendectomy, Other (cataract, ankle fx, hip fx). No: Pacemaker Amputation: No Fractures: Yes (L ankle ORIF, L arm) - *Social History Smoking Status: Never smoker Alcohol Intake: never Substance Use Type: denies use *Occupational Status:: unemployed Household Members: none *Travel in the last 8 weeks: None Family Hx:: Non-contributory
== END ==
PROVIDERS: Visit Provider Anesthesiology Pain Medicine
DX: M51.16 Intervertebral disc disorders with radiculopathy, lumbar region (principal)
CPT/HCPCS: 99212; G0463

== ENCOUNTER → 2021-12-05 11:16 | Outpatient (POV) | payer MEDICARE, BC, SELFPAY ==
--- NOTE | 2021-12-05 11:42 | P.CONS_ITS ---
[facility] Pain Management SOAP Note Subjective:: This patient is a very pleasant 80-year-old white female that we have been treating for quite some time for chronic low back pain with medication. She is currently being treated for degenerative disc disease lumbar spine multilevels. Lumbar radiculopathy at times. She is currently being prescribed hydrocodone 5 mg 1 p.o. 3 times daily. Patient states the pain medicine keeps her under control. Patient says her back is dull aching at times. Standing for any length of time increases pain. She rates her pain 6/10 today. Objective:: Patient is awake alert oriented x3. In no acute distress. Flexion and extension of the lumbar spine is guarded secondary to pain. Deep tendon reflexes upper lower extremities normal. Motor strength upper and lower extremities normal. Gait is antalgic requiring walker for assistance. Assessment:: Degenerative disc disease lumbar spine multilevels. Lumbar radiculopathy symptoms. Plan:: Patient will follow up with us in a month. [facility] History Medical History: Reports:: Cancer (skin left eye), Diabetes Mellitus Type 2, Hyperlipidemia, Hypertension, Lung Disease (asthma, katie cpap) Denies:: Diabetes Mellitus Type 1, Internal Pacemaker, MRSA, Seizures *Have you ever received a pneumonia vaccine?: Yes *Have you received a flu vaccine this season?: Yes Laterality Cases: Bilateral: Total Hip Replacement Other Surgeries: Yes: Appendectomy, Other (cataract, ankle fx, hip fx). No: Pacemaker Amputation: No Fractures: Yes (L ankle ORIF, L arm) - *Social History Smoking Status: Never smoker Alcohol Intake: never Substance Use Type: denies use *Occupational Status:: unemployed Household Members: none *Travel in the last 8 weeks: None Family Hx:: Non-contributory
[2021-12-05 11:56] VITALS: BP 197/77; PULSE 70; RESP 18; TEMP 36.8; O2SAT 94; BMI 32.9
[2021-12-05 12:25] LABS: Barbiturates Screen,Urine Negative ng/ml (<200)
[2021-12-05 12:26] LABS: Amphetamine/Metha Screen,Urine Negative ng/ml (<1000); Benzodiazepines Screen,Urine Negative ng/ml (<200)
[2021-12-05 12:27] LABS: Cannabinoid Screen,Urine Negative ng/ml (<50)
[2021-12-05 12:28] LABS: Cocaine Screen,Urine Negative ng/ml (<300); Methadone Screen,Urine Negative ng/ml (<300)
[2021-12-05 12:29] LABS: Opiate Screen,Urine Positive ng/ml (<300)
[2021-12-05 12:30] LABS: Phencyclidine Screen,Urine Negative ng/ml (<25)
[2021-12-13 20:09] LABS: Codeine Negative (Cutoff=100); Hydrocodone Positive (.); Hydromorphone Positive (.); Morphine Negative (Cutoff=100); Opiates Positive (.)
== END ==
PROVIDERS: Student in an Organized Health Care Education/Training Program; Visit Provider Nurse Anesthetist, Certified Registered
DX: M51.16 Intervertebral disc disorders with radiculopathy, lumbar region (principal); Z79.891 Long term (current) use of opiate analgesic
CPT/HCPCS: 80305; 80361; 80365; 99212; G0463; G0480

== ENCOUNTER → 2022-01-04 10:34 | Outpatient (POV) | payer MEDICARE, BC, SELFPAY ==
[2022-01-04 10:57] VITALS: BP 221/89; PULSE 89; RESP 19; TEMP 37.1; O2SAT 88; BMI 32.9
--- NOTE | 2022-01-04 11:35 | HMH.PAINSOAP ---
[facility] Pain Management SOAP Note Subjective:: Patient is a pleasant 81-year-old female who is here for medication refill and follow-up. Patient is currently being treated for degenerative disc disease of the lumbar spine with lumbar radiculopathy symptoms. Patient is being managed with Encino 5 mg twice a day. Patient denies any side effects from the medications. Patient denies any changes to the location and type of pain. Patient states that this is adequately helping manage their pain. Rates pain as 5 out of 10. [facility] number [id number] with an active morphine equivalent 15. Drug screens have been reviewed and appropriate. Patient is also prescribed Lyrica 75 mg twice a day by Dr. Adamson. Additionally, patient states that she typically takes the Encino 1-2 times a day. We will consider decreasing her number of tablets this month. Review of Systems: General: No recent weight changes, no fever, no sleep disturbances Respiratory: No cough, no shortness of air, no recurring pulmonary infections Cardiovascular/peripheral vascular: No chest pain, no palpitations, no edema, no shortness of breath Gastrointestinal: No new onset incontinence, normal bowel movements reported Genitourinary: No new onset incontinence Musculoskeletal: Low back pain Psychiatric: [Normal mood/affect] Neurological: [Denies weakness in extremities], [denies balance issues] Objective:: Physical Exam: General: Alert and oriented x3, no acute distress, pleasant and cooperative Lungs: Respirations even and unlabored, symmetrical chest expansion Eyes: PERRL Musculoskeletal: Flexion and extension of lumbar [spine] somewhat guarded secondary to pain, [antalgic gait noted] Neurological: Speech clear, no gross sensory deficit Assessment:: Degenerative disc disease of lumbar spine with lumbar radiculopathy symptoms Plan:: We will change the patient to Encino 5mg twice a day #75 tablets. We will provide the patient with 1 month of refills. We would like to see the patient back in 1 month for follow-up and reevaluation of chronic pain syndrome. Patient has been advised of risks of oversedation with the prescribed medication. Narcan has been offered to the patient in the event of oversedation. Patient has been advised that a family member should also be educated regarding administration of Narcan. Patient has been instructed to contact the clinic with any concerns before the next appointment. Dr. Brown has reviewed this note and agrees with this plan of care. This note was dictated using voice recognition software and make contain errors or omissions. [facility] History Medical History: Reports:: Cancer (skin left eye), Diabetes Mellitus Type 2, Hyperlipidemia, Hypertension, Lung Disease (asthma, katie cpap) Denies:: Diabetes Mellitus Type 1, Internal Pacemaker, MRSA, Seizures *Have you ever received a pneumonia vaccine?: Yes *Have you received a flu vaccine this season?: Yes Laterality Cases: Bilateral: Total Hip Replacement Other Surgeries: Yes: Appendectomy, Other (cataract, ankle fx, hip fx). No: Pacemaker Amputation: No Fractures: Yes (L ankle ORIF, L arm) - *Social History Smoking Status: Never smoker Alcohol Intake: never Substance Use Type: denies use *Occupational Status:: retired Household Members: none *Travel in the last 8 weeks: None Family Hx:: Non-contributory
== END ==
PROVIDERS: Visit Provider Student in an Organized Health Care Education/Training Program
DX: M51.16 Intervertebral disc disorders with radiculopathy, lumbar region (principal)
CPT/HCPCS: 99212; G0463

== ENCOUNTER → 2022-02-07 12:11 | Outpatient (CLI) | payer MEDICARE, BC, SELFPAY ==
[2022-02-07 12:18] LABS: Microscopic, Urine URINE MICROSCOPIC (MICROSCOPIC)
--- NOTE | 2022-02-07 12:38 | ECG_ITS ---
APPROVED REPORT Exam: Resting ECG HR:71 bpm ECG Measurements Heart Rate 71 AXES NV 210 P -57 QRSd 92 QRS 46 QT 401 T 53 QTc 423 Conclusion SINUS RHYTHM WITH FIRST DEGREE AV BLOCK ABNORMAL ECG UNCONFIRMED REPORT Electronically signed by : Cody Hernandez MD 02/09/2022 17:52:21
[2022-02-07 12:43] LABS: Basophils # 0.1 K/mm3 (0-0.2); Basophils % 0.7 % (0.1-2.0); Eosinophils # 0.1 K/mm3 (0.0-0.4); Hematocrit 41.8 % (37.0-47.0); Hemoglobin 13.8 g/dL (12.2-16.2); Lymphocytes # 1.7 K/mm3 (0.7-4.5); Lymphocytes % 24.5 % (10-50); Mean Corpuscular HGB Conc 33.1 g/dL (31.8-35.4); Mean Corpuscular Hemoglobin 28.1 pg (27.0-31.2); Mean Corpuscular Volume 84.8 fl (81-99); Mean Platelet Volume 8.7 fl (7.4-10.4); Monocytes # 0.5 K/mm3 (0.1-1.0); Monocytes % 7.5 % (1.7-9.3); Neutrophils # 4.5 K/mm3 (1.8-7.8); Neutrophils % 65.2 % (37.0-80.0); Platelet Count 180 K/mm3 (142-424); Red Blood Count 4.92 M/mm3 (4.20-5.40); Red Cell Distribution Width 15.8 % (11.5-17.5); White Blood Count 6.8 K/mm3 (4.8-10.8)
[2022-02-07 12:48] LABS: Appearance,Urine CLEAR (Clear); Bilirubin,Urine Negative (Negative); Blood, Urine Negative (Negative); Color,Urine YELLOW (Yellow); Glucose,Urine (UA) Negative (Negative); Ketones,Urine Negative (Negative); Leukocyte Esterase,Urine Negative (Negative); Nitrate,Urine Negative (Negative); Protein,Urine TRACE (Negative); Specific Gravity, Urine 1.025 (1.005-1.030); Urobilinogen,Urine 0.2 EU/dl (0.2)
[2022-02-07 13:02] LABS: Bacteria,Urine Trace /lpf; RBC,Urine Occasional #/hpf (0-3); Squamous Epithelial Cell,Urine Occasional #/hpf (0-5); WBC,Urine Occasional #/hpf (0-3)
[2022-02-07 13:06] LABS: Alanine Aminotransferase 30 U/L (12-78); Albumin Level 4.3 g/dl (3.5-5.0); Albumin/Globulin Ratio 1.3 (1.1-1.8); Alkaline Phosphatase 66 U/L (38-126); Anion Gap 13.2 mEq/L (5-15); Aspartate Amino Transferase 53 U/L (14-36); Bilirubin,Total 0.6 mg/dl (0.2-1.3); Blood Urea Nitrogen 13 mg/dl (7-17); Calcium 9.6 mg/dl (8.4-10.2); Carbon Dioxide 30 mmol/L (22.0-30.0); Chloride 102 mmol/L (98-107); Estimated Glomerular Filt Rate 60 ml/min (>60); GFR (African American) 72 ML/MIN (>60); Globulin 3.2 g/dL (1.3-3.2); Glucose 114 mg/dl (74-100); Potassium 4.2 mmoL/L (3.5-5.1); Sodium 141 mmol/L (136-145); Total Protein,Serum 7.5 g/dl (6.3-8.2)
== END ==
PROVIDERS: PCP Family Medicine; Visit Provider Family Medicine
DX: Z01.818 Encounter for other preprocedural examination (principal); E11.9 Type 2 diabetes mellitus without complications; Z79.84 Long term (current) use of oral hypoglycemic drugs
CPT/HCPCS: 36415; 80053; 81001; 83036; 85025; 93005

== ENCOUNTER → 2022-02-19 09:15 | Outpatient (POV) | payer MEDICARE, BC, SELFPAY ==
--- NOTE | 2022-02-19 09:55 | HMH.PAINSOAP ---
[facility] Pain Management SOAP Note Subjective:: Patient is a pleasant 81-year-old female who is here as a telehealth for medication refill and follow-up. Patient is currently being treated for degenerative disc disease of lumbar spine with lumbar radiculopathy symptoms. Patient is being managed with Sontag 5 mg twice a day #75tabs. She is also prescribed pregabalin 75 mg 3 times a day by Dr. Adamson. Patient denies any side effects from the medications. Patient denies any changes to the location and type of pain. Patient states that this is adequately helping manage their pain. Rates pain as 5 out of 10. [facility] number [id number] with an active morphine equivalent 0. Drug screens have been reviewed and appropriate. Review of Systems: General: No recent weight changes, no fever, no sleep disturbances Respiratory: No cough, no shortness of air, no recurring pulmonary infections Cardiovascular/peripheral vascular: No chest pain, no palpitations, no edema, no shortness of breath Gastrointestinal: No new onset incontinence, normal bowel movements reported Genitourinary: No new onset incontinence Musculoskeletal: Low back pain Psychiatric: [Normal mood/affect] Neurological: [Denies weakness in extremities], [denies balance issues] Objective:: Physical Exam: General: Alert and oriented x3, no acute distress, pleasant and cooperative Lungs: Respirations even and unlabored, symmetrical chest expansion Eyes: PERRL Musculoskeletal: Flexion and extension of lumbar [spine] somewhat guarded secondary to pain, [antalgic gait noted] Neurological: Speech clear, no gross sensory deficit Assessment:: Degenerative disc disease of lumbar spine with lumbar radiculopathy symptoms Plan:: We will continue the patient's Sontag 5mg BID #75tabs. We will provide the patient with 1 month of refills. We would like to see the patient back in 1 month for follow-up and reevaluation of chronic pain syndrome. Patient has been advised of risks of oversedation with the prescribed medication. Narcan has been offered to the patient in the event of oversedation. Patient has been advised that a family member should also be educated regarding administration of Narcan. Patient has been instructed to contact the clinic with any concerns before the next appointment. Dr. Brown has reviewed this note and agrees with this plan of care. This note was dictated using voice recognition software and make contain errors or omissions. [facility] History Medical History: Reports:: Cancer (skin left eye), Diabetes Mellitus Type 2, Hyperlipidemia, Hypertension, Lung Disease (asthma, katie cpap) Denies:: Diabetes Mellitus Type 1, Internal Pacemaker, MRSA, Seizures *Have you ever received a pneumonia vaccine?: Yes *Have you received a flu vaccine this season?: Yes Laterality Cases: Bilateral: Total Hip Replacement Other Surgeries: Yes: Appendectomy, Other (cataract, ankle fx, hip fx). No: Pacemaker Amputation: No Fractures: Yes (L ankle ORIF, L arm) - *Social History Smoking Status: Never smoker Alcohol Intake: never Substance Use Type: denies use *Occupational Status:: retired Household Members: none *Travel in the last 8 weeks: Inside the [place] Family Hx:: Non-contributory
== END ==
PROVIDERS: Visit Provider Student in an Organized Health Care Education/Training Program
DX: M51.16 Intervertebral disc disorders with radiculopathy, lumbar region (principal)
CPT/HCPCS: 99212; G0463

== ENCOUNTER → 2022-03-15 10:27 | Outpatient (POV) | payer MEDICARE, BC, SELFPAY ==
[2022-03-15 10:31] VITALS: BP 180/62; PULSE 87; RESP 20; O2SAT 91; BMI 34.5
--- NOTE | 2022-03-15 10:36 | HMH.PAINSOAP ---
[facility] Pain Management SOAP Note Subjective:: Patient is a pleasant 81-year-old female who is here for medication refill and follow-up. Patient is currently being treated for degenerative disc disease of lumbar spine with lumbar radiculopathy symptoms. Patient is being managed with Beeson 5 mg twice a day #75tabs. Patient states that she is stable on this medication and currently takes this medication 1 to 2 tablets a day. She is also prescribed pregabalin 75 mg 3 times a day by Dr. Adamson. Patient denies any side effects from the medications. Patient denies any changes to the location and type of pain. Patient states that this is adequately helping manage their pain. Rates pain as 5 out of 10. [facility] number [id number] with an active morphine equivalent 15. Drug screens have been reviewed and appropriate. Review of Systems: General: No recent weight changes, no fever, no sleep disturbances Respiratory: No cough, no shortness of air, no recurring pulmonary infections Cardiovascular/peripheral vascular: No chest pain, no palpitations, no edema, no shortness of breath Gastrointestinal: No new onset incontinence, normal bowel movements reported Genitourinary: No new onset incontinence Musculoskeletal: Low back pain Psychiatric: [Normal mood/affect] Neurological: [Denies weakness in extremities], [denies balance issues] Objective:: Physical Exam: General: Alert and oriented x3, no acute distress, pleasant and cooperative Lungs: Respirations even and unlabored, symmetrical chest expansion Eyes: PERRL Musculoskeletal: Flexion and extension of lumbar [spine] somewhat guarded secondary to pain, [antalgic gait noted] Neurological: Speech clear, no gross sensory deficit Assessment:: Degenerative disc disease of the lumbar spine with lumbar radiculopathy symptoms Plan:: We will continue the patient's Beeson 5 mg twice a day #60 tabs. We will provide the patient with 1 month of refills. We would like to see the patient back in 1 month for follow-up and reevaluation of chronic pain syndrome. Patient has been advised of risks of oversedation with the prescribed medication. Narcan has been offered to the patient in the event of oversedation. Patient has been advised that a family member should also be educated regarding administration of Narcan. Patient has been instructed to contact the clinic with any concerns before the next appointment. Dr. Brown has reviewed this note and agrees with this plan of care. This note was dictated using voice recognition software and make contain errors or omissions. [facility] History Medical History: Reports:: Cancer (skin left eye), Diabetes Mellitus Type 2, Hyperlipidemia, Hypertension, Lung Disease (asthma, katie cpap) Denies:: Diabetes Mellitus Type 1, Internal Pacemaker, MRSA, Seizures *Have you ever received a pneumonia vaccine?: No *Have you received a flu vaccine this season?: Yes Laterality Cases: Bilateral: Total Hip Replacement Other Surgeries: Yes: Appendectomy, Other (cataract, ankle fx, hip fx). No: Pacemaker Amputation: No Fractures: Yes (L ankle ORIF, L arm) - *Social History Smoking Status: Never smoker Alcohol Intake: never Substance Use Type: denies use *Occupational Status:: retired Household Members: none *Travel in the last 8 weeks: None Family Hx:: Non-contributory
== END ==
PROVIDERS: Visit Provider Student in an Organized Health Care Education/Training Program
DX: M51.16 Intervertebral disc disorders with radiculopathy, lumbar region (principal)
CPT/HCPCS: 99212; G0463

== ENCOUNTER → 2022-04-12 10:33 | Outpatient (POV) | payer MEDICARE, BC, SELFPAY ==
--- NOTE | 2022-04-12 11:44 | HMH.PAINSOAP ---
[facility] Pain Management SOAP Note Subjective:: Patient is a pleasant 81-year-old female who is here as a telehealth visit for medication refill and follow-up. Patient is currently being treated for degenerative disc disease of lumbar spine with lumbar radiculopathy symptoms. Patient is being managed with Tar Heel 5 mg twice a day. Patient is also prescribed pregabalin 75 mg 3 times a day that is prescribed by Dr. Adamson. Patient denies any side effects from the medications. Patient denies any changes to the location and type of pain. Patient states that this is adequately helping manage their pain. Rates pain as 5 out of 10. [facility] number [id number] with an active morphine equivalent 10. Drug screens have been reviewed and appropriate. We recently changed this patient from 75 tablets of Tar Heel to 60 tablets of Tar Heel. She has been doing well with the change. Review of Systems: General: No recent weight changes, no fever, no sleep disturbances Respiratory: No cough, no shortness of air, no recurring pulmonary infections Cardiovascular/peripheral vascular: No chest pain, no palpitations, no edema, no shortness of breath Gastrointestinal: No new onset incontinence, normal bowel movements reported Genitourinary: No new onset incontinence Musculoskeletal: Low back pain Psychiatric: [Normal mood/affect] Neurological: [Denies weakness in extremities], [denies balance issues] Objective:: Physical Exam: General: Alert and oriented x3, no acute distress, pleasant and cooperative Lungs: Respirations even and unlabored, symmetrical chest expansion Eyes: PERRL Musculoskeletal: Flexion and extension of lumbar [spine] somewhat guarded secondary to pain, [antalgic gait noted] Neurological: Speech clear, no gross sensory deficit Assessment:: Degenerative disc disease of lumbar spine with lumbar radiculopathy symptoms Plan:: We will continue the patient's [place]el 5 mg twice a day. We will provide the patient with 1 month of refills. We would like to see the patient back in 1 month for follow-up and reevaluation of chronic pain syndrome. Patient has been advised of risks of oversedation with the prescribed medication. Narcan has been offered to the patient in the event of oversedation. Patient has been advised that a family member should also be educated regarding administration of Narcan. Patient has been instructed to contact the clinic with any concerns before the next appointment. Dr. Brown has reviewed this note and agrees with this plan of care. This note was dictated using voice recognition software and make contain errors or omissions. [facility] History Medical History: Reports:: Cancer (skin left eye), Diabetes Mellitus Type 2, Hyperlipidemia, Hypertension, Lung Disease (asthma, katie cpap) Denies:: Diabetes Mellitus Type 1, Internal Pacemaker, MRSA, Seizures *Have you ever received a pneumonia vaccine?: No *Have you received a flu vaccine this season?: Yes Laterality Cases: Bilateral: Total Hip Replacement Other Surgeries: Yes: Appendectomy, Other (cataract, ankle fx, hip fx). No: Pacemaker Amputation: No Fractures: Yes (L ankle ORIF, L arm) - *Social History Smoking Status: Never smoker Alcohol Intake: never Substance Use Type: denies use *Occupational Status:: retired Household Members: none *Travel in the last 8 weeks: Inside the [place] Family Hx:: Non-contributory
== END ==
PROVIDERS: PCP Family Medicine; Visit Provider Student in an Organized Health Care Education/Training Program
DX: M51.16 Intervertebral disc disorders with radiculopathy, lumbar region (principal)
CPT/HCPCS: 99212; G0463

== ENCOUNTER → 2022-05-10 11:35 | Outpatient (POV) | payer MEDICARE, BC, SELFPAY ==
--- NOTE | 2022-05-10 11:53 | A.OFFVIS_ITS ---
[facility] Pain Management SOAP Note Subjective:: Patient is a pleasant 81-year-old female who presents today for follow-up and medication refill. We are currently treating the patient for degenerative disc disease of lumbar spine with lumbar radiculopathy symptoms. Today the patient rates her pain a 4 out of 10. She states her pain is primarily in her low back that radiates into her bilateral extremities. Patient denies any new trauma or injury to the site. Patient denies any change to the location or type of pain she experiences. Patient is currently managed with pregabalin 75 mg twice a day by Dr. Allan Adamson and Hoven 5 mg twice a day by our office. Patient denies any side effects from this medication. She states these medications do adequately manage her pain. She is requesting a refill of her Hoven today. Her Gabriele is [id number]. It has been reviewed and appropriate. Review of Systems: General: No recent weight changes, no fever, no sleep disturbances Respiratory: No cough, no shortness of air, no recurring pulmonary infections Cardiovascular/peripheral vascular: No chest pain, no palpitations, no edema, n o shortness of breath Gastrointestinal: No new onset incontinence, normal bowel movements reported Genitourinary: No new onset incontinence Musculoskeletal: Low back pain, bilateral leg pain Psychiatric: [Normal mood/affect] Neurological: [Denies weakness in extremities], [denies balance issues] Objective:: Physical Exam: General: Alert and oriented x3, no acute distress, pleasant and cooperative Lungs: Respirations even and unlabored, symmetrical chest expansion Eyes: PERRL Musculoskeletal: Flexion and extension of lumbar [spine] somewhat guarded secondary to pain, [antalgic gait noted] Neurological: Speech clear, no gross sensory deficit Assessment:: Degenerative disc disease of lumbar spine with lumbar radiculopathy symptoms Plan:: Patient continues to have significant improvement of her pain symptoms with her current medication regimen. I will refill the patient's Hoven 5 mg twice a day and provide a 1 month supply of this medication. We will follow-up with the patient in 1 month for reevaluation of symptoms and medication refill. Patient has been advised of risks of oversedation with the prescribed medication. Narcan has been offered to the patient in the event of oversedation. Patient has been advised that a family member should also be educated regarding administration of Narcan. Patient has been instructed to contact the clinic with any concerns before the next appointment. Dr. Brown has reviewed this note and agrees with this plan of care. This note was dictated using voice recognition software and make contain errors or omissions. PFSH PFS Social History Smoking Status: Never smoker alcohol intake: never substance use type: denies use current occupational status: retired Travel in the last 8 weeks: Inside the [place] household members: none caffeine: Yes
[2022-05-10 12:05] VITALS: BP 143/65; PULSE 84; RESP 20; TEMP 37.3; O2SAT 92; BMI 34.5
== END | disposition home or self-care (01) ==
PROVIDERS: PCP Family Medicine; Visit Provider Nurse Practitioner Family
DX: M51.16 Intervertebral disc disorders with radiculopathy, lumbar region (principal); Z79.899 Other long term (current) drug therapy
CPT/HCPCS: 99212; G0463

== ENCOUNTER → 2022-06-11 13:54 | Outpatient (POV) | payer MEDICARE, BC, SELFPAY ==
--- NOTE | 2022-06-11 14:06 | A.OFFVIS_ITS ---
[facility] Pain Management SOAP Note Subjective:: Patient is a pleasant 81-year-old female who presents today for telehealth visit for medication refill and follow-up. We are currently treating the patient for degenerative disc disease of lumbar spine with lumbar radiculopathy symptoms. Today she rates her pain a 4-5 out of 10 and states the pain is all in her low back. Patient denies any new trauma or injury. She denies any change to location or type of pain she experiences. Patient is currently managed with pregabalin 75 mg twice a day by Dr. Allan Adamson. She is also prescribed Marissa 5 mg twice a day by our office. Patient denies any side effects from these medications. She states these medications do adequately help manage her pain symptoms. She is requesting a refill of her Marissa at today's visit. This telehealth visit did occur at the patient's home. Her Gabriele is [id number]. It has been reviewed and appropriate. Review of Systems: General: No recent weight changes, no fever, no sleep disturbances Respiratory: No cough, no shortness of air, no recurring pulmonary infections Cardiovascular/peripheral vascular: No chest pain, no palpitations, no edema, no shortness of breath Gastrointestinal: No new onset incontinence, normal bowel movements reported Genitourinary: No new onset incontinence Musculoskeletal: Low back pain Psychiatric: [Normal mood/affect] Neurological: [Denies weakness in extremities], [denies balance issues] Objective:: General: Alert and oriented x3, pleasant and cooperative Lungs: Patient is able to say complete sentences without dyspnea Neurological: Speech clear Assessment:: Degenerative disc disease of lumbar spine with lumbar radiculopathy symptoms Plan:: Patient continues to have low back pain that is managed well with her current medication regimen. I will refill the patient's Marissa 5 mg twice a day and provide a 1 month supply of this medication. This telehealth visit did last for roughly 10 minutes. We will schedule the patient for a 1 month follow-up. Patient will return to clinic in 1 month for reevaluation of symptoms, medication refill and follow-up. Patient has been advised of risks of oversedation with the prescribed medication. Narcan has been offered to the patient in the event of oversedation. Patient has been advised that a family member should also be educated regarding administration of Narcan. Patient has been instructed to contact the clinic with any concerns before the next appointment. Dr. Brown has reviewed this note and agrees with this plan of care. This note was dictated using voice recognition software and make contain errors or omissions. PFSH PFSH Social History Smoking Status: Never smoker alcohol intake: never substance use type: denies use current occupational status: retired Travel in the last 8 weeks: None household members: none caffeine: Yes
== END | disposition home or self-care (01) ==
PROVIDERS: PCP Family Medicine; Visit Provider Nurse Practitioner Family
DX: M51.16 Intervertebral disc disorders with radiculopathy, lumbar region (principal)
CPT/HCPCS: 99212; G0463

== ENCOUNTER → 2022-07-12 10:22 | Outpatient (POV) | payer MEDICARE, BC, SELFPAY ==
--- NOTE | 2022-07-12 10:45 | A.OFFVIS_ITS ---
[facility] Pain Management SOAP Note Subjective:: Patient is a pleasant 81-year-old female who presents today for medication refill and follow-up. We are currently treating the patient for degenerative disc disease of lumbar spine with lumbar radiculopathy symptoms. Today she rates her pain a 4 out of 10. She states the pain is in her low back as well as her left ankle and hands. Patient does state that she feels like all of it is related to worsening arthritis. She also states that years ago she fractured her left ankle and that its not ever been the same since. Patient states that she was not a surgical candidate and that even tried bracing but that made her pain worse. Patient is currently prescribed pregabalin [address] Adamson's office and [place] 5 mg 3 times a day from our office. Patient denies any side effects from this medication. She states these medications do help manage her pain symptoms. She is requesting a refill of her [place] at today's visit. Patient does use a walker for ambulation. Her Gabriele is [phone]. It has been reviewed and appropriate. Review of Systems: General: No recent weight changes, no fever, no sleep disturbances Respiratory: No cough, no shortness of air, no recurring pulmonary infections Cardiovascular/peripheral vascular: No chest pain, no palpitations, no edema, no shortness of breath Gastrointestinal: No new onset incontinence, normal bowel movements reported Genitourinary: No new onset incontinence Musculoskeletal: Low back pain, left ankle pain, hand pain Psychiatric: [Normal mood/affect] Neurological: [Denies weakness in extremities], [denies balance issues] Objective:: Physical Exam: General: Alert and oriented x3, no acute distress, pleasant and cooperative Lungs: Respirations even and unlabored, symmetrical chest expansion Eyes: PERRL Musculoskeletal: Flexion and extension of lumbar [spine] somewhat guarded secondary to pain, [antalgic gait noted] Neurological: Speech clear, no gross sensory deficit Assessment:: Degenerative disc disease of lumbar spine with lumbar radiculopathy symptoms, left ankle pain Plan:: Patient continues to experience significant pain in her low back as well as her left ankle and hands. I will refill the patient's [place] 5 mg 3 times a day and provide a 1 month supply of this medication. I will also order the patient a compounding cream at today's visit. Patient will follow-up in 1 month via telehealth visit for reevaluation of symptoms, medication refill and follow-up. Patient has been advised of risks of oversedation with the prescribed medication. Narcan has been offered to the patient in the event of oversedation. Patient has been advised that a family member should also be educated regarding administration of Narcan. Patient has been instructed to contact the clinic with any concerns before the next appointment. Dr. Brown has reviewed this note and agrees with this plan of care. This note was dictated using voice recognition software and make contain errors or omissions. PFSH PFSH Social History Smoking Status: Never smoker alcohol intake: never substance use type: denies use current occupational status: retired Travel in the last 8 weeks: None household members: none caffeine: Yes
[2022-07-12 11:11] VITALS: BP 163/81; PULSE 77; RESP 18; O2SAT 98; BMI 34.5
[2022-07-12 18:16] LABS: Amphetamine/Metha Screen,Urine Negative ng/ml (<1000)
[2022-07-12 18:17] LABS: Benzodiazepines Screen,Urine Negative ng/ml (<200)
[2022-07-12 18:18] LABS: Barbiturates Screen,Urine Negative ng/ml (<200); Cannabinoid Screen,Urine Negative ng/ml (<50)
[2022-07-12 18:19] LABS: Methadone Screen,Urine Negative ng/ml (<300)
[2022-07-12 18:20] LABS: Cocaine Screen,Urine Negative ng/ml (<300); Opiate Screen,Urine Positive ng/ml (<300)
[2022-07-12 18:21] LABS: Phencyclidine Screen,Urine Negative ng/ml (<25)
[2022-07-20 23:11] LABS: Codeine Negative (Cutoff=100); Hydrocodone Positive (.); Hydromorphone Positive (.); Morphine Negative (Cutoff=100); Opiates Positive (.)
== END | disposition home or self-care (01) ==
PROVIDERS: PCP Family Medicine; Visit Provider Nurse Practitioner Family
DX: M51.16 Intervertebral disc disorders with radiculopathy, lumbar region (principal); Z79.891 Long term (current) use of opiate analgesic; M25.572 Pain in left ankle and joints of left foot
CPT/HCPCS: 80305; 80361; 80365; 99212; G0463; G0480

== ENCOUNTER → 2022-08-10 16:18 | Outpatient (CLI) | payer MEDICARE, BC, SELFPAY ==
--- NOTE | 2022-08-10 16:18 | MM_ITS ---
PROCEDURE INFORMATION: Exam: MG Bilateral Screening 3D Mammography Exam date and time: 08/10/2022 4:26 PM Age: 81 years old Clinical indication: Screening mammogram. TECHNIQUE: Imaging protocol: Bilateral Screening tomosynthesis and 2D mammography including computer-aided detection (CAD) when performed. COMPARISON: 1. MG MM DIG SCREENING MAMM BI W/CAD 07/18/2021 10:45 AM 2. MG MM DIG SCREENING MAMM BI W/CAD 07/07/2020 10:39 AM 3. MG MM DIG SCREENING MAMM BI W/CAD 04/14/2019 9:54 AM 4. MG SCBI MM Dig screening mamm BI w/CAD 02/05/2018 10:09 AM FINDINGS: MAMMOGRAPHY: Breast composition: There are scattered areas of fibroglandular density. Mass: None. Architectural distortion: No new or suspicious architectural distortion. Calcifications: Stable benign-appearing calcifications are present. No new or suspicious cluster of microcalcifications have developed. Asymmetric density: No new or suspicious asymmetric density is present Skin thickening: None. Axillary adenopathy: None. IMPRESSION: No mammographic evidence of malignancy. Recommend annual screening mammography unless otherwise clinically indicated. ASSESSMENT: BI-RADS category 2: Benign
== END ==
PROVIDERS: PCP Family Medicine; Visit Provider Nurse Practitioner Obstetrics & Gynecology
DX: Z12.31 Encounter for screening mammogram for malignant neoplasm of breast (principal)
CPT/HCPCS: 77063; 77067

== ENCOUNTER → 2022-09-03 09:46 | Outpatient (POV) | payer MEDICARE, BC, SELFPAY ==
--- NOTE | 2022-09-03 09:52 | EXP.PAIN.SOA ---
[facility] Pain Management SOAP Note Subjective:: Patient is a pleasant 81-year-old female who presents today for medication refill and follow-up via telehealth visit. This telehealth visit is occurring at the patient's home and she has consented for this appointment. We are currently treating the patient for degenerative disc disease of lumbar spine with lumbar radiculopathy symptoms. Today the patient rates her pain a 4 out of 10. Patient denies any new trauma or injury. Patient denies any change location or type of pain she experiences. Patient does state that she has noticed a significant difference in her pain with the weather. Patient states that rain aggravates her symptoms. Patient continues to have pain also around her left ankle from an old fracture. Patient was not a surgical candidate and even tried bracing however this aggravated her pain symptoms. Patient is currently prescribed pregabalin 75 mg from her primary care doctor's office. Patient denies any side effects from this medication. She is also managed with [place] 5 mg twice a day from our office. Patient denies any side effects from this medication. She states this medication does help her pain symptoms. She is requesting a refill at today's visit. Patient is also prescribed compounding cream however she states she has not noticed significant improvement. Her Gabriele is [phone]. Its been reviewed and appropriate. Review of Systems: General: No recent weight changes, no fever, no sleep disturbances Respiratory: No cough, no shortness of air, no recurring pulmonary infections Cardiovascular/peripheral vascular: No chest pain, no palpitations, no edema, no shortness of breath Gastrointestinal: No new onset incontinence, normal bowel movements reported Genitourinary: No new onset incontinence Musculoskeletal: Low back pain Psychiatric: [Normal mood/affect] Neurological: [Denies weakness in extremities], [denies balance issues] Objective:: Physical Exam: General: Alert and oriented x3, no acute distress, pleasant and cooperative Lungs: Respirations even and unlabored, symmetrical chest expansion Eyes: PERRL Musculoskeletal: Flexion and extension of lumbar [spine] somewhat guarded secondary to pain, [antalgic gait noted] Neurological: Speech clear, no gross sensory deficit Assessment:: Degenerative disc disease of lumbar spine with lumbar radiculopathy symptoms Plan:: Patient continues to experience significant pain in her low back with radiating symptoms into her lower extremities however she is doing well with her current medication regimen. I will refill the patient's [place] 5 mg twice a day and provide a 1 month supply of this medication. Patient will return to clinic in 1 month for reevaluation of symptoms, medication refill and follow-up. This telehealth visit lasted from [id number]. Patient has been advised of risks of oversedation with the prescribed medication. Narcan has been offered to the patient in the event of oversedation. Patient has been advised that a family member should also be educated regarding administration of Narcan. Patient has been instructed to contact the clinic with any concerns before the next appointment. Dr. Brown has reviewed this note and agrees with this plan of care. This note was dictated using voice recognition software and make contain errors or omissions. [facility] Disclaimer: The information contained in this section may have been updated after the patient was seen, as this information can be updated by other users. Social History Smoking Status: Never smoker alcohol intake: never substance use type: denies use current occupational status: retired Travel in the last 8 weeks: None household members: none caffeine: Yes
== END | disposition home or self-care (01) ==
PROVIDERS: Visit Provider Nurse Practitioner Family
DX: M51.16 Intervertebral disc disorders with radiculopathy, lumbar region (principal)
CPT/HCPCS: 99212; G0463

== ENCOUNTER → 2022-10-04 11:39 | Outpatient (POV) | payer MEDICARE, BC, SELFPAY ==
--- NOTE | 2022-10-04 11:49 | A.OFFVIS_ITS ---
[facility] Pain Management SOAP Note Subjective:: Patient is a pleasant 81-year-old female who presents today for medication refill and follow-up. We are currently treating the patient for degenerative disc disease of lumbar spine with lumbar radiculopathy symptoms. Today she rates her pain a 6 out of 10. Patient denies any new trauma or injury. Patient denies any change location or type of pain she experiences. Patient states she continues to experience pain in her low back with some radiating symptoms into her lower extremities. Patient states that it frequently is worse with increased activity such as doing laundry or mopping. Patient does state that she notices back pain more frequently at night when she is going to bed. Isaiah nair is currently managed with pregabalin 75 mg twice a day by her primary care doctor. Patient denies any side effects from this medication. She is also managed with compounding cream and [place] 5 mg twice a day from our office. Patient denies any side effects from this medication and states this medication does improve her pain symptoms. She is requesting a refill of her [place] at today's visit. Her Gabriele is [phone]. Its been reviewed and appropriate. Review of Systems: General: No recent weight changes, no fever, no sleep disturbances Respiratory: No cough, no shortness of air, no recurring pulmonary infections Cardiovascular/peripheral vascular: No chest pain, no palpitations, no edema, no shortness of breath Gastrointestinal: No new onset incontinence, normal bowel movements reported Genitourinary: No new onset incontinence Musculoskeletal: Low back pain Psychiatric: [Normal mood/affect] Neurological: [Denies weakness in extremities], [denies balance issues] Objective:: Physical Exam: General: Alert and oriented x3, no acute distress, pleasant and cooperative Lungs: Respirations even and unlabored, symmetrical chest expansion Eyes: PERRL Musculoskeletal: Flexion and extension of lumbar [spine] somewhat guarded secondary to pain, [antalgic gait noted] Neurological: Speech clear, no gross sensory deficit ORT score updated with low risk Assessment:: Degenerative disc disease of lumbar spine with lumbar radiculopathy symptoms Plan:: Patient continues to experience significant pain in her low back and radiating into her legs however she is doing well with her current medication regimen. I will refill the patient's [place] 5 mg twice a day and provide a 1 month supply of this medication. I will send in a new prescription for tizanidine 4 mg at bedtime as needed and provide a 1 month supply of this medication. Patient will return to clinic in 1 month for reevaluation of symptoms, medication refill and follow-up. Patient has been advised of risks of oversedation with the prescribed medication. Narcan has been offered to the patient in the event of oversedation. Patient has been advised that a family member should also be educated regarding administration of Narcan. Patient has been instructed to contact the clinic with any concerns before the next appointment. Dr. Brown has reviewed this note and agrees with this plan of care. This note was dictated using voice recognition software and make contain errors or omissions. [facility] Disclaimer: The information contained in this section may have been updated after the patient was seen, as this information can be updated by other users. Social History Smoking Status: Never smoker alcohol intake: never substance use type: denies use current occupational status: retired Travel in the last 8 weeks: None household members: none caffeine: Yes
[2022-10-04 12:14] VITALS: BP 151/49; PULSE 90; RESP 18; O2SAT 98; BMI 35.0
[2022-10-04 12:48] LABS: Amphetamine/Metha Screen,Urine Negative ng/ml (<1000); Barbiturates Screen,Urine Negative ng/ml (<200); Benzodiazepines Screen,Urine Negative ng/ml (<200); Cannabinoid Screen,Urine Negative ng/ml (<50); Cocaine Screen,Urine Negative ng/ml (<300); Methadone Screen,Urine Negative ng/ml (<300); Opiate Screen,Urine Positive ng/ml (<300); Phencyclidine Screen,Urine Negative ng/ml (<25)
[2022-10-10 00:08] LABS: Codeine Negative (Cutoff=100); Hydrocodone Positive (.); Hydromorphone Positive (.); Morphine Negative (Cutoff=100); Opiates Positive (.)
== END | disposition home or self-care (01) ==
PROVIDERS: PCP Family Medicine; Visit Provider Nurse Practitioner Family
DX: M51.16 Intervertebral disc disorders with radiculopathy, lumbar region (principal); Z79.891 Long term (current) use of opiate analgesic
CPT/HCPCS: 80305; 80361; 80365; 99212; G0463; G0480

== ENCOUNTER → 2022-11-01 10:15 | Outpatient (POV) | payer MEDICARE, BC, SELFPAY ==
--- NOTE | 2022-11-01 10:27 | EXP.PAIN.SOA ---
[facility] Pain Management SOAP Note Subjective:: Patient is a pleasant 82-year-old female who presents today for 1 month follow-up and medication refill. We are currently treating the patient for degenerative disc disease of lumbar spine with lumbar radiculopathy symptoms. Today she rates her pain a 5 out of 10. Patient denies any new trauma or injury. Patient denies any change location or type of pain she experiences. At our last visit we did prescribe tizanidine 4 mg at night and she states this has significantly improved her symptoms. She is currently managed with pregabalin 75 mg twice a day from her primary care doctor. Patient denies any side effects from this medication. We are prescribing compounding cream along with [place] 5 mg twice a day from our office. Patient denies any side effects from this medication. She does states she does frequently use the cream on her arthritis in her hands which does help along with heat. Her Gabriele is [phone]. Its been reviewed and appropriate. Review of Systems: General: No recent weight changes, no fever, no sleep disturbances Respiratory: No cough, no shortness of air, no recurring pulmonary infections Cardiovascular/peripheral vascular: No chest pain, no palpitations, no edema, no shortness of breath Gastrointestinal: No new onset incontinence, normal bowel movements reported Genitourinary: No new onset incontinence Musculoskeletal: Low back pain Psychiatric: [Normal mood/affect] Neurological: [Denies weakness in extremities], [denies balance issues] Objective:: Physical Exam: General: Alert and oriented x3, no acute distress, pleasant and cooperative Lungs: Respirations even and unlabored, symmetrical chest expansion Eyes: PERRL Musculoskeletal: Flexion and extension of lumbar [spine] somewhat guarded secondary to pain, [antalgic gait noted] Neurological: Speech clear, no gross sensory deficit Assessment:: Degenerative disc disease of lumbar spine with lumbar radiculopathy symptoms Plan:: Patient continues to do well with her current medication regimen. I will refill her [place] 5 mg twice a day and tizanidine 4 mg at bedtime and provide a 1 month supply of this medication. Patient will return to clinic in 1 month for reevaluation of symptoms, medication refill and follow-up. Patient has been advised of risks of oversedation with the prescribed medication. Narcan has been offered to the patient in the event of oversedation. Patient has been advised that a family member should also be educated regarding administration of Narcan. Patient has been instructed to contact the clinic with any concerns before the next appointment. Dr. Brown has reviewed this note and agrees with this plan of care. This note was dictated using voice recognition software and make contain errors or omissions. [facility] Disclaimer: The information contained in this section may have been updated after the patient was seen, as this information can be updated by other users. Social History Smoking Status: Never smoker alcohol intake: never substance use type: denies use current occupational status: retired Travel in the last 8 weeks: None household members: none caffeine: Yes
[2022-11-01 10:39] VITALS: BP 159/53; PULSE 91; RESP 18; O2SAT 96; BMI 35.0
== END | disposition home or self-care (01) ==
PROVIDERS: PCP Family Medicine; Visit Provider Nurse Practitioner Family
DX: M51.16 Intervertebral disc disorders with radiculopathy, lumbar region (principal); Z79.899 Other long term (current) drug therapy
CPT/HCPCS: 99212; G0463

== ENCOUNTER → 2022-12-06 10:53 | Outpatient (POV) | payer MEDICARE, BC, SELFPAY ==
--- NOTE | 2022-12-06 11:41 | EXP.PAIN.SOA ---
[facility] Pain Management SOAP Note Subjective:: Patient is a pleasant 82-year-old female who presents today for 1 month follow-up and medication refill. We are currently treating the patient for degenerative disc disease of lumbar spine with lumbar radiculopathy symptoms. Today she rates her pain a 5 out of 10. Patient denies any new trauma or injury. She is currently managed with tizanidine 4 mg at bedtime and [place] 5 mg twice a day. Patient denies any side effects from this medication. She does state it helps her overall pain. She is also prescribed compounding cream and does get pregabalin 75 mg twice a day from her primary care doctor. Her Gabriele is [phone]. Its been reviewed and appropriate. Review of Systems: General: No recent weight changes, no fever, no sleep disturbances Respiratory: No cough, no shortness of air, no recurring pulmonary infections Cardiovascular/peripheral vascular: No chest pain, no palpitations, no edema, no shortness of breath Gastrointestinal: No new onset incontinence, normal bowel movements reported Genitourinary: No new onset incontinence Musculoskeletal: Low back pain Psychiatric: [Normal mood/affect] Neurological: [Denies weakness in extremities], [denies balance issues] Objective:: Physical Exam: General: Alert and oriented x3, no acute distress, pleasant and cooperative Lungs: Respirations even and unlabored, symmetrical chest expansion Eyes: PERRL Musculoskeletal: Flexion and extension of lumbar [spine] somewhat guarded secondary to pain, [antalgic gait noted] Neurological: Speech clear, no gross sensory deficit Assessment:: Degenerative disc disease of lumbar spine with lumbar radiculopathy symptoms Plan:: Patient is doing well with her current medication regimen. I will refill her [place] 5 mg twice a day and tizanidine 4 mg at bedtime and provide a 1 month supply of this medication. Patient will return to clinic in 1 month for reevaluation of symptoms, medication refill and follow-up. Patient has been advised of risks of oversedation with the prescribed medication. Narcan has been offered to the patient in the event of oversedation. Patient has been advised that a family member should also be educated regarding administration of Narcan. Patient has been instructed to contact the clinic with any concerns before the next appointment. Dr. Brown has reviewed this note and agrees with this plan of care. This note was dictated using voice recognition software and make contain errors or omissions. [facility] Disclaimer: The information contained in this section may have been updated after the patient was seen, as this information can be updated by other users. Social History Smoking Status: Never smoker alcohol intake: never substance use type: denies use current occupational status: retired Travel in the last 8 weeks: None household members: none caffeine: Yes
[2022-12-06 11:44] VITALS: BP 138/56; PULSE 91; RESP 20; O2SAT 96; BMI 38.2
== END | disposition home or self-care (01) ==
PROVIDERS: PCP Family Medicine; Visit Provider Nurse Practitioner Family
DX: M51.16 Intervertebral disc disorders with radiculopathy, lumbar region (principal)
CPT/HCPCS: 99212; G0463

== ENCOUNTER → 2022-12-31 10:45 | Outpatient (POV) | payer MEDICARE, BC, SELFPAY ==
--- NOTE | 2022-12-31 11:44 | EXP.PAIN.SOA ---
[facility] Pain Management SOAP Note Subjective:: Patient is a pleasant 82-year-old female who presents today for medication refill and follow-up. We are currently treating the patient for degenerative disc disease of lumbar spine with lumbar radiculopathy symptoms. Today she rates her pain a 5 out of 10. Patient denies any new trauma or injury. Patient denies any change to location or type of pain she experiences. Patient is currently managed with tizanidine 4 mg at bedtime and [place] 5 mg twice a day. Patient denies any side effects from this medication. She is also prescribed compounding cream and pregabalin 75 mg twice a day from her primary care doctor. Her Gabriele is [id number]. Its been reviewed and appropriate. Patient states she does not need any refills on her tizanidine. Review of Systems: General: No recent weight changes, no fever, no sleep disturbances Respiratory: No cough, no shortness of air, no recurring pulmonary infections Cardiovascular/peripheral vascular: No chest pain, no palpitations, no edema, no shortness of breath Gastrointestinal: No new onset incontinence, normal bowel movements reported Genitourinary: No new onset incontinence Musculoskeletal: Low back pain Psychiatric: [Normal mood/affect] Neurological: [Denies weakness in extremities], [denies balance issues] Objective:: Physical Exam: General: Alert and oriented x3, no acute distress, pleasant and cooperative Lungs: Respirations even and unlabored, symmetrical chest expansion Eyes: PERRL Musculoskeletal: Flexion and extension of lumbar [spine] somewhat guarded secondary to pain, [antalgic gait noted] Neurological: Speech clear, no gross sensory deficit Assessment:: Degenerative disc disease of lumbar spine with lumbar radiculopathy symptoms Plan:: We will refill her [place] 5 mg twice a day and provide a 1 month supply of this medication. Patient will return to clinic in 1 month for reevaluation of symptoms, medication refill and follow-up. Patient has been advised of risks of oversedation with the prescribed medication. Narcan has been offered to the patient in the event of oversedation. Patient has been advised that a family member should also be educated regarding administration of Narcan. Patient has been instructed to contact the clinic with any concerns before the next appointment. Dr. Brown has reviewed this note and agrees with this plan of care. This note was dictated using voice recognition software and make contain errors or omissions. PFSH PFSH Disclaimer: The information contained in this section may have been updated after the patient was seen, as this information can be updated by other users. Social History Smoking Status: Never smoker alcohol intake: never substance use type: denies use current occupational status: retired Travel in the last 8 weeks: None household members: none caffeine: Yes
[2022-12-31 11:54] VITALS: BP 153/68; PULSE 82; RESP 18; O2SAT 97; BMI 35.0
== END | disposition home or self-care (01) ==
PROVIDERS: PCP Family Medicine; Visit Provider Nurse Practitioner Family
DX: M51.16 Intervertebral disc disorders with radiculopathy, lumbar region (principal)
CPT/HCPCS: 99212; G0463

== ENCOUNTER → 2023-01-31 10:18 | Outpatient (POV) | payer MEDICARE, BC, SELFPAY ==
--- NOTE | 2023-01-31 10:31 | EXP.PAIN.SOA ---
[facility] Pain Management SOAP Note Subjective:: Patient is a pleasant 82-year-old female who presents today for medication refill and follow-up. We are currently treating the patient for degenerative disc disease of lumbar spine with lumbar radiculopathy symptoms. Today she rates her pain a 5 out of 10. Patient denies any new trauma or injury. Patient denies any change in location or type of pain she experiences. She is currently managed with [place] 5 mg twice a day from our office and pregabalin 75 mg twice a day from Dr. Adamson's office. Patient denies any side effects from these medications. She states that she does not need refills at this time. Her Gabriele is [id number]. Has been reviewed and appropriate. Review of Systems: General: No recent weight changes, no fever, no sleep disturbances Respiratory: No cough, no shortness of air, no recurring pulmonary infections Cardiovascular/peripheral vascular: No chest pain, no palpitations, no edema, no shortness of breath Gastrointestinal: No new onset incontinence, normal bowel movements reported Genitourinary: No new onset incontinence Musculoskeletal: Low back pain Psychiatric: [Normal mood/affect] Neurological: [Denies weakness in extremities], [denies balance issues] Objective:: Physical Exam: General: Alert and oriented x3, no acute distress, pleasant and cooperative Lungs: Respirations even and unlabored, symmetrical chest expansion Eyes: PERRL Musculoskeletal: Flexion and extension of lumbar [spine] somewhat guarded secondary to pain, [antalgic gait noted] Neurological: Speech clear, no gross sensory deficit Assessment:: Degenerative disc disease of lumbar spine with lumbar radiculopathy symptoms Plan:: Patient does not need any refills at this time. She will return to clinic in 1 month for for reevaluation of symptoms, medication refill and follow-up. Patient has been advised of risks of oversedation with the prescribed medication. Narcan has been offered to the patient in the event of oversedation. Patient has been advised that a family member should also be educated regarding administration of Narcan. Patient has been instructed to contact the clinic with any concerns before the next appointment. Dr. Brown has reviewed this note and agrees with this plan of care. This note was dictated using voice recognition software and make contain errors or omissions. [facility] Disclaimer: The information contained in this section may have been updated after the patient was seen, as this information can be updated by other users. Social History Smoking Status: Never smoker alcohol intake: never substance use type: denies use current occupational status: retired Travel in the last 8 weeks: None household members: none caffeine: Yes
[2023-01-31 11:19] LABS: Barbiturates Screen,Urine Negative ng/ml (<200); Benzodiazepines Screen,Urine Negative ng/ml (<200)
[2023-01-31 11:20] LABS: Amphetamine/Metha Screen,Urine Negative ng/ml (<1000)
[2023-01-31 11:21] LABS: Methadone Screen,Urine Negative ng/ml (<300)
[2023-01-31 11:22] LABS: Cannabinoid Screen,Urine Negative ng/ml (<50); Cocaine Screen,Urine Negative ng/ml (<300)
[2023-01-31 11:23] LABS: Opiate Screen,Urine Positive ng/ml (<300); Phencyclidine Screen,Urine Negative ng/ml (<25)
[2023-01-31 11:32] VITALS: BP 122/71; PULSE 80; RESP 18; O2SAT 90; BMI 35.0
[2023-02-07 12:10] LABS: Codeine Negative (Cutoff=100); Hydrocodone Positive (.); Hydromorphone Positive (.); Morphine Negative (Cutoff=100); Opiates Positive (.)
== END ==
PROVIDERS: PCP Family Medicine; Visit Provider Nurse Practitioner Family
DX: M51.16 Intervertebral disc disorders with radiculopathy, lumbar region (principal); Z79.891 Long term (current) use of opiate analgesic
CPT/HCPCS: 80305; 80361; 80365; 99212; G0463; G0480

== ENCOUNTER → 2023-02-28 10:06 | Outpatient (POV) | payer MEDICARE, BC, SELFPAY ==
--- NOTE | 2023-02-28 10:42 | A.OFFVIS_ITS ---
[facility] Pain Management SOAP Note Subjective:: Patient is a pleasant 82-year-old female who presents today for medication refill and follow-up. We are currently treating the patient for degenerative disc disease of lumbar spine with lumbar radiculopathy symptoms. Today she rates her pain a 4 out of 10. Patient denies any new trauma or injury. She denies any change location or type of pain she experiences. She is currently managed with [place] 5 mg twice a day and tizanidine 4 mg at bedtime from our office and 75 mg twice a day from Dr. Adamson's office. She denies any side effects from these medications. She does state that she does not need any additional refills on her pain medications however she does on her muscle relaxer. Her Gabriele is [id number]. Its been reviewed and appropriate. Review of Systems: General: No recent weight changes, no fever, no sleep disturbances Respiratory: No cough, no shortness of air, no recurring pulmonary infections Cardiovascular/peripheral vascular: No chest pain, no palpitations, no edema, no shortness of breath Gastrointestinal: No new onset incontinence, normal bowel movements reported Genitourinary: No new onset incontinence Musculoskeletal: Low back pain Psychiatric: [Normal mood/affect] Neurological: [Denies weakness in extremities], [denies balance issues] Objective:: Physical Exam: General: Alert and oriented x3, no acute distress, pleasant and cooperative Lungs: Respirations even and unlabored, symmetrical chest expansion Eyes: PERRL Musculoskeletal: Flexion and extension of lumbar [spine] somewhat guarded secondary to pain, [antalgic gait noted] Neurological: Speech clear, no gross sensory deficit Assessment:: Degenerative disc disease of lumbar spine with lumbar radiculopathy symptoms Plan:: I will refill the patient's tizanidine 4 mg at bedtime and provide a 3-month supply of this medication. Patient will return to clinic in 3 months for reevaluation of symptoms and plan of care. Patient has been instructed to contact the clinic with any concerns before the next appointment. Dr. Brown has reviewed this note and agrees with this plan of care. This note was dictated using voice recognition software and make contain errors or omissions. [facility] Disclaimer: The information contained in this section may have been updated after the patient was seen, as this information can be updated by other users. Social History Smoking Status: Never smoker alcohol intake: never substance use type: denies use current occupational status: retired Travel in the last 8 weeks: None household members: none caffeine: Yes
[2023-02-28 11:14] VITALS: BP 114/75; PULSE 80; RESP 20; O2SAT 92; BMI 35.3
== END | disposition home or self-care (01) ==
PROVIDERS: PCP Family Medicine; Visit Provider Nurse Practitioner Family
DX: M51.16 Intervertebral disc disorders with radiculopathy, lumbar region (principal)
CPT/HCPCS: 99212; G0463

== ENCOUNTER → 2023-07-29 10:52 | Outpatient (POV) | payer MEDICARE, BC, SELFPAY ==
--- NOTE | 2023-07-29 11:01 | EXP.PAIN.SOA ---
[facility] Pain Management SOAP Note Subjective:: Patient is a pleasant 82-year-old female who presents today for 3-month follow-up and medication refill. We are currently treating the patient for degenerative disc disease of lumbar spine with lumbar radiculopathy symptoms. Today she rates her pain a out of 10. Patient denies any new trauma or injury or any change to the location or type of pain she experiences. She is currently managed with tizanidine 4 mg at bedtime from our office and pregabalin 75 mg twice a day from her PCP. She denies any side effects from these medications. Patient was previously prescribed [place] 5 mg twice a day from our office however she states that she does well with the tizanidine and that she preferred that medication over the pain medication. Patient does state since our last visit she has had oral surgery from Dr. Brower in [place]. She also states that due to her macular degeneration in both eyes that she has gone back to having to have injections every month. Her Gabriele has been reviewed and appropriate. Review of Systems: General: No recent weight changes, no fever, no sleep disturbances Respiratory: No cough, no shortness of air, no recurring pulmonary infections Cardiovascular/peripheral vascular: No chest pain, no palpitations, no edema, no shortness of breath Gastrointestinal: No new onset incontinence, normal bowel movements reported Genitourinary: No new onset incontinence Musculoskeletal: Low back pain Psychiatric: [Normal mood/affect] Neurological: [Denies weakness in extremities], [denies balance issue Objective:: Physical Exam: General: Alert and oriented x3, no acute distress, pleasant and cooperative Lungs: Respirations even and unlabored, symmetrical chest expansion Eyes: PERRL Musculoskeletal: Flexion and extension of lumbar [spine] somewhat guarded secondary to pain, [antalgic gait noted] Neurological: Speech clear, no gross sensory deficit Assessment:: Degenerative disc disease of lumbar spine with lumbar radiculopathy symptoms Plan:: I will refill the patient's tizanidine 4 mg at bedtime and provide a 3 month supply of these medications. Patient will return to clinic in 3 months for reevaluation of symptoms and plan of care. Patient has been advised of risks of oversedation with the prescribed medication. Narcan has been offered to the patient in the event of oversedation. Patient has been advised that a family member should also be educated regarding administration of Narcan. Patient has been instructed to contact the clinic with any concerns before the next appointment. Dr. Brown has reviewed this note and agrees with this plan of care. This note was dictated using voice recognition software and make contain errors or omissions. [facility] Disclaimer: The information contained in this section may have been updated after the patient was seen, as this information can be updated by other users. Social History Smoking Status: Never smoker alcohol intake: never substance use type: denies use current occupational status: other Travel in the last 8 weeks: None household members: none caffeine: Yes
[2023-07-29 11:25] VITALS: BP 169/67; PULSE 92; RESP 20; O2SAT 91; BMI 35.0
== END | disposition home or self-care (01) ==
PROVIDERS: PCP Family Medicine; Visit Provider Nurse Practitioner Family
DX: M51.16 Intervertebral disc disorders with radiculopathy, lumbar region (principal)
CPT/HCPCS: 99212; G0463

== ENCOUNTER → 2023-08-15 15:49 | Outpatient (CLI) | payer MEDICARE, BC, SELFPAY ==
--- NOTE | 2023-08-15 15:56 | MM_ITS ---
PROCEDURE INFORMATION: Exam: MG Bilateral Screening 3D Mammography Exam date and time: 08/15/2023 3:44 PM Age: 82 years old Clinical indication: Screening examination TECHNIQUE: Imaging protocol: Bilateral Screening tomosynthesis and 2D mammography including computer-aided detection (CAD) when performed. COMPARISON: 1. MG MM DIG SCREENING MAMM BI W/CAD 08/10/2022 4:26 PM 2. MG MM DIG SCREENING MAMM BI W/CAD 07/18/2021 10:45 AM FINDINGS: MAMMOGRAPHY: Breast composition: There are scattered areas of fibroglandular density. Mass: None. Architectural distortion: None. Calcifications: No suspicious calcifications. Asymmetric density: None. Skin thickening: None. Axillary adenopathy: None. IMPRESSION: No mammographic evidence of malignancy. Annual screening is recommended unless otherwise clinically indicated. ASSESSMENT: BI-RADS Category 1: Negative
== END ==
PROVIDERS: PCP Family Medicine; Visit Provider Family Medicine
DX: Z12.31 Encounter for screening mammogram for malignant neoplasm of breast (principal)
CPT/HCPCS: 77063; 77067

== ENCOUNTER 2023-10-28 10:39 | Outpatient (POV) | payer MEDICARE, BC, SELFPAY ==
--- NOTE | 2023-10-28 11:13 | EXP.PAIN.SOA ---
[facility] Pain Management SOAP Note Subjective:: Patient is a pleasant 82-year-old female who presents today for 3-month follow-up and medication refill. We are currently treating the patient for degenerative disc disease of lumbar spine with lumbar radiculopathy symptoms. Today she rates her pain a 5 out of 10. Patient denies any new trauma or injury. She is currently managed with tizanidine 4 mg at bedtime from our office and pregabalin 75 mg twice a day from her PCP. She denies any side effects from these medications. Her Gabriele has been reviewed and appropriate. Review of Systems: General: No recent weight changes, no fever, no sleep disturbances Respiratory: No cough, no shortness of air, no recurring pulmonary infections Cardiovascular/peripheral vascular: No chest pain, no palpitations, no edema, no shortness of breath Gastrointestinal: No new onset incontinence, normal bowel movements reported Genitourinary: No new onset incontinence Musculoskeletal: Low back pain Psychiatric: [Normal mood/affect] Neurological: [Denies weakness in extremities], [denies balance issue Objective:: Physical Exam: General: Alert and oriented x3, no acute distress, pleasant and cooperative Lungs: Respirations even and unlabored, symmetrical chest expansion Eyes: PERRL Musculoskeletal: Flexion and extension of lumbar [spine] somewhat guarded secondary to pain, [antalgic gait noted] Neurological: Speech clear, no gross sensory deficit Assessment:: Degenerative disc disease of lumbar spine with lumbar radiculopathy symptoms Plan:: Will send in a 6-month supply of her tizanidine 4 mg at bedtime. Patient will return to clinic in 6 months for reevaluation of symptoms and plan of care. Patient has been instructed to contact the clinic with any concerns before the next appointment. Dr. Brown has reviewed this note and agrees with this plan of care. This note was dictated using voice recognition software and make contain errors or omissions. [facility] Disclaimer: The information contained in this section may have been updated after the patient was seen, as this information can be updated by other users. Social History Smoking Status: Never smoker alcohol intake: never substance use type: denies use current occupational status: other Travel in the last 8 weeks: None household members: none caffeine: Yes
[2023-10-28 11:41] VITALS: BP 142/60; PULSE 87; RESP 18; BMI 77.2
== END 2023-10-28 23:59 | disposition home or self-care (01) ==
PROVIDERS: PCP Family Medicine; Visit Provider Nurse Practitioner Family
DX: M51.16 Intervertebral disc disorders with radiculopathy, lumbar region (principal)
CPT/HCPCS: 99212; G0463

== ENCOUNTER 2023-11-10 10:25 | Inpatient (IN) | payer MEDICARE, BC, SELFPAY ==
[2023-11-10] VITALS (18 sets, daily range): BP systolic 123–240; BP diastolic 59–145; PULSE 44–88; RESP 14–30; TEMP 36.6–37.1; O2SAT 88–97; BMI 34.5; BMI 33.9
--- NOTE | 2023-11-10 10:37 | XR_ITS ---
PROCEDURE INFORMATION: Exam: XR Chest Exam date and time: 11/10/2023 10:36 AM Age: 83 years old Clinical indication: Other: Weakness; Additional info: General weakness, low o2 sat on ra TECHNIQUE: Imaging protocol: Radiologic exam of the chest. Views: 1 view. COMPARISON: CR XR CHEST 2V 05/10/2020 12:07 PM FINDINGS: Lungs: Basilar increased markings are noted. Pleural spaces: Unremarkable. No pleural effusion. No pneumothorax. Heart/Mediastinum: Unremarkable. No cardiomegaly. Bones/joints: Unremarkable. IMPRESSION: Basilar atelectasis.
--- NOTE | 2023-11-10 10:39 | HMH.EDGENADL ---
Discharge Plan Disposition Patient Disposition: Admitted Clinical Impressions Clinical Impression: Acute exacerbation of CHF (congestive heart failure), Acute hyperkalemia, Hypomagnesemia, Dyspnea on exertion, Acute hypoxic respiratory failure, General weakness, Hypertensive emergency Discharge ED Provider: Claudia Henderson General Adult HPI General Chief complaint: Shortness of Breath/Dyspnea Stated complaint: weakness Time Seen by Provider: 11/10/23 10:30 Mode of Arrival: EMS Source of Information: Patient and EMS Limitations: No Limitations Description of Symptoms (Recalled from ER Triage Doc. by RN): pt c/o SOA, diarrhea, weakness, and a decreased appetite. 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 pt is 88% on RA here and 93% on 4LNC. pt does not use oxygen at baseline. History of Present Illness HPI narrative: This patient is an 83-year-old female with a history of hypertension, hyperlipidemia, and diabetes on metformin presenting with concern for generalized weakness. Patient states that since , she has just not been feeling well. She states that she is generally weak and has had decreased appetite. She also notes that she has had mild diarrhea, but she states is not been anything bad. Diarrhea is nonbloody. She denies any fevers, chills, headache, vision changes, cough, congestion, sore throat, chest pain, shortness of breath, abdominal pain, urinary symptoms, or any focal neurologic symptoms, only stating that she just does not feel well. EMS noted the patient had significant hypertension with systolics greater than 200 on their assessment, and she was hypoxic with an O2 saturation of 88% on room air. Given this, they put her on 4 L nasal cannula prior to arrival. Patient denies any history of cardiopulmonary issues and denies use of oxygen at home. Of note, she does have chronic bilateral lower extremity edema, left greater than right due to a prior left lower extremity fracture. Related Data Home Medications Medication Instructions Recorded Confirmed celecoxib 200 mg capsule 200 mg PO DAILY Pain 03/06/18 11/10/23 lisinopril 20 mg tablet 20 mg PO DAILY High Blood Pressure 03/06/18 11/10/23 metformin 500 mg tablet 500 mg PO BIDWMEAL Diabetes 03/06/18 11/10/23 montelukast 10 mg tablet 10 mg PO PM Allergy Symptoms 03/06/18 11/10/23 pregabalin 75 mg capsule (Lyrica) 75 mg PO BID Pain 03/06/18 11/10/23 simvastatin 20 mg tablet 20 mg PO HS Cholesterol 03/06/18 11/10/23 spironolactone 50 mg tablet 50 mg PO DAILY Fluid 05/03/21 11/10/23 azelastine 137 mcg (0.1 %) nasal 2 spray intranasal BID Allergy 11/10/23 11/10/23 spray aerosol Symptoms escitalopram oxalate 20 mg tablet 20 mg PO DAILY Mood 11/10/23 11/10/23 esomeprazole magnesium 40 mg 40 mg PO DAILY Acid Reflux 11/10/23 11/10/23 capsule,delayed release fluticasone 250 mcg-salmeterol 50 1 ea inhalation BID Breathing 11/10/23 11/10/23 mcg/dose blistr powdr for Problems inhalation (Wixela Inhub) oxybutynin chloride 10 mg 20 mg PO DAILY 11/10/23 11/10/23 tablet,extended release 24 hr tizanidine 4 mg capsule 4 mg PO HSP PRN muscle spasticity 11/10/23 11/10/23 Allergies Allergy/AdvReac Type Severity Reaction Status Date / Time pollen extracts Allergy Intermediate ASTHMA Verified 11/10/23 10:41 [POLLEN EXTRACTS] [facility] Disclaimer: The information contained in this section may have been updated after the patient was seen, as this information can be updated by other users. Medical History (Updated 11/10/23 @ 13:41 by Louisa Sanchez RN) Asthma Hyperlipidemia Neuropathy Depression GERD (gastroesophageal reflux disease) Arthritis Hypertension Diabetes Social History Smoking Status: Never smoker alcohol intake: never substance use type: denies use current occupational status: other Travel in the last 8 weeks: None household members: none caffeine: Yes ROS Obtained: Yes All systems reviewed & no additional complaints except as documented Physical Exam General General appearance: alert, in no apparent distress and obese Head Head exam: atraumatic and normocephalic Eye Eye exam: Present normal appearance, PERRL and EOMI ENT ENT exam: Present normal exam, normal oropharynx, mucous membranes moist and normal external ear exam Neck Neck exam: Present normal inspection, full ROM and trachea midline; Absent tenderness Chest Chest inspection: Present normal inspection and symmetric chest wall rise; Absent tenderness Respiratory Respiratory exam: Present normal lung sounds bilaterally; Absent respiratory distress, wheezes, stridor or accessory muscle use Cardiovascular Cardiovascular exam: Present normal rhythm and bradycardia Abdominal Exam Abdominal exam: Present soft; Absent distention, tenderness or guarding Extremities Exam Extremities exam: Present full ROM, normal capillary refill and edema (Chronic left ankle deformity with left greater than right lower extremity edema, which the patient states is chronic. Chronic skin changes to the bilateral lower legs related to venous stasis.); Absent tenderness Back Exam Back exam: Present normal inspection and full ROM; Absent tenderness Neurological Exam Neurological exam: Present alert, oriented X3, CN II-XII intact and other (Generally weak with no focal deficits); Absent motor sensory deficit Psychiatric Psychiatric exam: Present normal affect and normal mood Skin Skin exam: Present warm and dry Medical Decision Making Medical Records Medical records reviewed: Yes I reviewed the patient's medical records. Gabriele Inquiry Pt receiving controlled substance: No Vital Signs: 11/10/23 10:31 11/10/23 11:01 11/10/23 11:04 Temperature 98 F Temperature Source Oral Pulse Rate 88 79 Pulse Rate [Left] 69 Respiratory Rate 18 Blood Pressure 224/106 H Blood Pressure [Right Arm] 206/98 H Blood Pressure Mean Blood Pressure Mean [Right Arm] 134 Blood Pressure Source [Right Arm] Automatic Cuff Blood Pressure Position [Right Arm] Sitting 02 Sat by Pulse Oximetry 88 L 97 96 Oxygen Delivery Method Room Air Room Air Oxygen Flow Rate (LPM) 11/10/23 11:12 11/10/23 11:31 11/10/23 12:01 Temperature Temperature Source Pulse Rate 67 70 69 Pulse Rate [Left] Respiratory Rate 20 Blood Pressure 229/100 H 187/94 H 191/99 H Blood Pressure [Right Arm] Blood Pressure Mean 125 120 Blood Pressure Mean [Right Arm] Blood Pressure Source [Right Arm] Blood Pressure Position [Right Arm] 02 Sat by Pulse Oximetry 95 94 L 95 Oxygen Delivery Method Room Air Nasal Cannula Room Air Oxygen Flow Rate (LPM) 3 11/10/23 12:30 11/10/23 13:00 11/10/23 13:34 Temperature Temperature Source Pulse Rate 63 57 L Pulse Rate [Left] Respiratory Rate 18 Blood Pressure 215/127 H 221/101 H 187/145 H Blood Pressure [Right Arm] Blood Pressure Mean 141 Blood Pressure Mean [Right Arm] Blood Pressure Source [Right Arm] Blood Pressure Position [Right Arm] 02 Sat by Pulse Oximetry 95 96 96 Oxygen Delivery Method Room Air Room Air Oxygen Flow Rate (LPM) 11/10/23 13:45 11/10/23 13:47 Temperature Temperature Source Pulse Rate 50 L 44 L Pulse Rate [Left] Respiratory Rate Blood Pressure 240/112 H 221/94 H Blood Pressure [Right Arm] Blood Pressure Mean Blood Pressure Mean [Right Arm] Blood Pressure Source [Right Arm] Blood Pressure Position [Right Arm] 02 Sat by Pulse Oximetry 96 95 Oxygen Delivery Method Room Air Room Air Oxygen Flow Rate (LPM) Lab Data Lab results reviewed: Yes I reviewed the patient's lab results. Lab Results 11/10/23 10:35: WBC 4.5 L, RBC 4.69, Hgb 13.1, Hct 40.0, MCV 85.2, MCH 27.9, MCHC 32.7, RDW 17.1, Plt Count 105 L, MPV 12.0 H, Neut % (Auto) 74.9, Lymph % (Auto) 14.4, Sargent % (Auto) 8.5, Eos % (Auto) 1.3, Baso % (Auto) 1.0, Neut # (Auto) 3.4, Lymph # (Auto) 0.7, Sargent # (Auto) 0.4, Eos # (Auto) 0.1, Baso # (Auto) 0.1, D-Dimer 0.83 H, Sodium 138, Potassium 5.8 H, Chloride 98, Carbon Dioxide 31 H, Anion Gap 14.8, BUN 14, Creatinine 0.80, Estimated Creat Clear 63, Estimated GFR 68, Est GFR ( Amer) 82, Glucose 127 H, Calcium 9.5, Phosphorus 4.2, Magnesium 1.3 L, Total Bilirubin 1.6 H, AST 79 H, ALT 27, Alkaline Phosphatase 70, Troponin I 0.02, NT-Pro-B Natriuret Pep 6290 H, Total Protein 8.6 H, Albumin 4.5, Globulin 4.1 H, Albumin/Globulin Ratio 1.1, Lipase 79, TSH 1.34, Thyroxine (T4) 14.7 H, Urine Color Straw, Urine Appearance Clear, Urine pH 7.0, Ur Specific [place] 1.015, Urine Protein 1+, Urine Glucose (UA) Negative, Urine Ketones Negative, Urine Blood Trace-i, Urine Nitrate Negative, Urine Bilirubin Negative, Urine Urobilinogen 0.2, Ur Leukocyte Esterase Negative, Urine RBC 3-5, Urine WBC Occasional, Ur Squamous Epith Cells Occasional, Urine Bacteria Trace 11/10/23 10:45: SARS-CoV-2 (PCR) Not detected, Influenza A Untype (PCR) Not detected, Influenza Type B (PCR) Not detected 11/10/23 10:57: VBG pH 7.38, VBG pCO2 50.4, VBG pO2 44.6 H, VBG HCO3 29.1, VBG Total CO2 30.7 H, VBG O2 Saturation 77.0 H, VBG Base Excess 4.0 H, VBG Lactic Acid 2.1 H 11/10/23 10:35 11/10/23 10:35 Orders (Tests/Meds): ED MEDICATIONS Generic Name Dose Route Start Last Admin Trade Name Freq PRN Reason Stop Dose Admin Acetaminophen 650 mg 11/10/23 13:08 Acetaminophen 325mg Tab PO 12/10/23 13:07 Q6HP PRN Fever or Mild Pain (1-3) Azelastine HCl 0 mcg 11/10/23 21:00 Azelastine Nasal [place] 30ml Bottle NS 12/10/23 20:59 BID GALA Citalopram Hydrobromide 40 mg 11/11/23 09:00 Citalopram 40mg Tablet PO 12/11/23 08:59 DAILY GALA Hydralazine HCl 20 mg 11/10/23 13:08 Hydralazine 20mg/Ml Vial IV 12/10/23 13:07 Q1HP PRN SBP > 200 Ibuprofen 600 mg 11/10/23 13:08 Ibuprofen 600 Mg Tablet PO 12/10/23 13:07 Q6HP PRN Fever or Mild Pain (1-3) Insulin Human Lispro 0 unit 11/10/23 16:30 Humalog 100 Units/Ml 3ml Vial (Ssi) SQ 12/10/23 16:29 ACHS GALA Protocol Lisinopril 20 mg 11/11/23 09:00 Lisinopril 20mg Tablet PO 12/11/23 08:59 DAILY GALA Montelukast Sodium 10 mg 11/10/23 18:00 Montelukast Sodium 10mg Tab PO 12/10/23 17:59 PM GALA Oxybutynin Chloride 10 mg 11/10/23 21:00 Oxybutynin 5mg Tab PO 12/10/23 20:59 BID GALA Pantoprazole Sodium 40 mg 11/10/23 21:00 Pantoprazole 40mg Tablet PO 12/10/23 20:59 HS GALA Pravastatin Sodium 40 mg 11/10/23 21:00 Pravastatin 40mg Tab PO 12/10/23 20:59 HS GALA Pregabalin 75 mg 11/10/23 21:00 Pregabalin 25mg Capsule PO 12/10/23 20:59 BID GALA Fluticasone/Salmeterol 1 puff 11/10/23 18:00 Fluticasone/Salmeterol 250/50mcg Diskus IH 12/10/23 17:59 BIDRT GALA Sodium Chloride 10 ml 11/10/23 13:19 Sodium Chloride 0.9% 10ml Flush Syringe IV 12/10/23 13:18 NEEDED PRN Maintain IV Site Tizanidine HCl 4 mg 11/10/23 14:55 Tizanidine 4mg Tablet PO 12/10/23 14:54 HSP PRN Muscle Spasm Discontinued Medications Generic Name Dose Route Start Last Admin Trade Name Freq PRN Reason Stop Dose Admin Furosemide 80 mg 11/10/23 11:17 11/10/23 11:33 Furosemide 40mg/4ml Vial IV 11/10/23 11:18 80 mg ONCE ONE Administration Hydralazine HCl 20 mg 11/10/23 13:04 11/10/23 13:48 Hydralazine 20mg/Ml Vial IV 11/10/23 13:05 20 mg ONCE ONE Administration Magnesium Sulfate 2 gm in 50 mls @ 50 mls/hr 11/10/23 11:07 11/10/23 11:33 Magnesium Sulfate 2gm/50ml Premix IV 11/10/23 12:06 50 mls/hr ONCE ONE Administration Iopamidol 75 ml 11/10/23 12:21 11/10/23 12:22 Iopamidol-370 (76%);100ml Bottle IV 11/10/23 12:22 75 ml ONCE ONE Administration Sodium Chloride 50 ml 11/10/23 12:21 11/10/23 12:22 0.9 % Sodium Chloride 50 Ml Vial IV 11/10/23 12:22 50 ml ONCE ONE Administration Sodium Chloride 10 ml 11/10/23 12:21 11/10/23 12:22 Sodium Chloride 0.9% 10ml Syr (Rad Only) IV 12/10/23 12:20 10 ml NEEDED PRN Administration Maintain IV Site ORDERS Category Date Time Status CT angio chest PE protocol Stat Cat Scan 11/10/23 11:28 Completed XR chest portable Stat Exams 11/10/23 10:37 Completed Brain Natriuretic Peptide Stat Lab 11/10/23 10:35 Completed Complete Blood Count Auto Diff Stat Lab 11/10/23 10:35 Completed Comprehensive Metabolic Panel Stat Lab 11/10/23 10:35 Completed D-Dimer Stat Lab 11/10/23 10:35 Completed Diarrhea 6-11 Panel, Cdiff PCR Stat Lab 11/10/23 10:37 Ordered Lipase Stat Lab 11/10/23 10:35 Completed Magnesium Stat Lab 11/10/23 10:35 Completed Phosphorous Stat Lab 11/10/23 10:35 Completed Rapid PCR Covid and Flu A/B Routine Lab 11/10/23 10:45 Completed Rapid PCR Covid and Flu A/B Stat Lab 11/10/23 10:37 Ordered T4 (Thyroxine) Stat Lab 11/10/23 10:35 Completed Thyroid Stimulating Hormone Stat Lab 11/10/23 10:35 Completed Troponin I Q3H Lab 11/10/23 13:36 Completed Troponin I Q3H Lab 11/10/23 16:45 Ordered Troponin I Stat Lab 11/10/23 10:35 Completed Urinalysis and Microscopic Stat Lab 11/10/23 10:35 Completed VBG [Venous Blood Gas] Stat RT 11/10/23 10:57 Completed ECG Data Tracing #1: I reviewed this ECG and interpreted as documented below: Normal sinus rhythm with a ventricular rate of 75 bpm. Occasional premature atrial complexes. No acute ST changes concerning for ischemia. No peaked T waves or other QT abnormalities that are significant. ECG initial impression date: 11/10/23 ECG initial impression time: 11:10 Medical Decision Narrative: In summary, this patient is a 83-year-old female presenting to the Emergency Department for evaluation of generalized weakness and diarrhea. EMS also notes hypoxia and hypertension. Differential diagnoses considered include but are not limited to hypertensive urgency, hypertensive emergency, PE, ACS, CHF exacerbation, pneumonia, viral syndrome, gastroenteritis, electrolyte derangements, dehydration. Ruling out the most morbid conditions drove assessment. On exam, the patient is nontoxic-appearing in no acute distress. Her systolic is greater than 200 on initial assessment, though her only complaint is general weakness. She has chronic lower extremity edema, which she states is not significantly changed for her. Workup included broad lab evaluation including CBC, CMP, troponin, BNP, TSH, T4, D-dimer, magnesium, phosphorus, viral swab, VBG, lactic acid, urinalysis, and diarrhea panel as well as chest x-ray and EKG. Patient attempted to ambulate to the restroom, and she was able to make it there, however ambulatory O2 saturation dipped from 97% on 2 L nasal cannula to 68% on 2 L nasal cannula. She does not typically wear oxygen at home. She became very winded and also had perioral cyanosis. Labs demonstrated elevated BNP of greater than 6000. Patient also has hyperkalemia with potassium of 5.8. EKG does not show any significant T wave changes or other concerns related to hyperkalemia. She has hypomagnesemia, for which IV replacement was ordered. D-dimer is elevated in the setting of acute respiratory failure, symptoms and was made to order a CT PE. I independently interpreted CT scan prior to the radiologist read and noted no large pulmonary embolus, pneumothorax, or focal consolidation. Please see their read for final interpretation. Patient had good urine output after administration of Lasix with 650 cc out. She continues to be hypertensive with systolics greater than 200s, so a dose of IV hydralazine was administered. Patient did have improvement in her blood pressure after this. At this time, feel she would benefit from admission for management of her severe hypertension, CHF, and respiratory failure. I had an interactive discussion with Dr. Nguyen who accepted the patient on the behalf of Dr. Adamson. I had a long discussion with the patient prior to admission who advised that she would like her CODE STATUS to be made DNR/DNI. Her niece witnessed this at bedside. Critical Care Critical Care Time Critical Care Time: No
--- NOTE | 2023-11-10 10:42 | PC.NURSE ---
rad at bedside
[2023-11-10 10:55] LABS: Alanine Aminotransferase 27 U/L (12-78); Albumin Level 4.5 g/dl (3.5-5.0); Albumin/Globulin Ratio 1.1 (1.1-1.8); Alkaline Phosphatase 70 U/L (38-126); Anion Gap 14.8 mEq/L (5-15); Aspartate Amino Transferase 79 U/L (14-36); Bilirubin,Total 1.6 mg/dl (0.2-1.3); Blood Urea Nitrogen 14 mg/dl (7-17); Calcium 9.5 mg/dl (8.4-10.2); Carbon Dioxide 31 mmol/L (22.0-30.0); Chloride 98 mmol/L (98-107); Creatinine Clearance Estimated 63 mL/min (50-200); Estimated Glomerular Filt Rate 68 ml/min (>60); GFR (African American) 82 ML/MIN (>60); Globulin 4.1 g/dL (1.3-3.2); Glucose 127 mg/dl (74-100); Lipase 79 U/L (23-300); Magnesium 1.3 mg/dl (1.6-2.3); Phosphorous 4.2 mg/dl (2.5-4.5); Potassium 5.8 mmoL/L (3.5-5.1); Sodium 138 mmol/L (136-145); Total Protein,Serum 8.6 g/dl (6.3-8.2)
[2023-11-10 10:56] LABS: Coronavirus 19, PCR Not Detected (NotDetected); Influenza A, PCR Not Detected (NotDetected); Influenza B, PCR Not Detected (NotDetected)
[2023-11-10 11:00] LABS: Basophils # 0.1 K/mm3 (0-0.2); Eosinophils # 0.1 K/mm3 (0.0-0.4); Eosinophils % 1.3 % (0.1-12.0); Hemoglobin 13.1 g/dL (12.2-16.2); Lymphocytes # 0.7 K/mm3 (0.7-4.5); Lymphocytes % 14.4 % (10-50); Mean Corpuscular HGB Conc 32.7 g/dL (31.8-35.4); Mean Corpuscular Hemoglobin 27.9 pg (27.0-31.2); Mean Corpuscular Volume 85.2 fl (81-99); Monocytes # 0.4 K/mm3 (0.1-1.0); Monocytes % 8.5 % (1.7-9.3); Neutrophils # 3.4 K/mm3 (1.8-7.8); Neutrophils % 74.9 % (37.0-80.0); Platelet Count 105 K/mm3 (142-424); Red Blood Count 4.69 M/mm3 (4.20-5.40); Red Cell Distribution Width 17.1 % (11.5-17.5); White Blood Count 4.5 K/mm3 (4.8-10.8)
--- NOTE | 2023-11-10 11:04 | PC.NURSE ---
Assisted pt to the bathroom. She became fatigued, SOA, dyspnea, lips dusky, and desat to 68%. Increased O2 to 3LPM NC and doing breathing techniques, sat increased to 95%. Dr. Henderson notified.
[2023-11-10 11:06] LABS: NT Pro Brain Natriuretic Pep. 6290 pg/mL (0-450); Troponin I 0.02 ng/ml (0.00-0.034)
--- NOTE | 2023-11-10 11:08 | ECG_ITS ---
APPROVED REPORT Exam: Resting ECG HR:75 bpm ECG Measurements Heart Rate 75 AXES MI 158 P -81 QRSd 91 QRS 81 QT 412 T 64 QTc 440 Conclusion ECTOPIC ATRIAL RHYTHM WITH OCCASIONAL SUPRAVENTRICULAR PREMATURE COMPLEXES ABNORMAL RHYTHM ECG Electronically signed by : SAGAR LOJA, 11/10/2023 15:37:29
[2023-11-10 11:11] LABS: T4 (Thyroxine) 14.7 ug/dl (5.53-11.0)
[2023-11-10 11:21] LABS: D-Dimer 0.83 ug/mL (0.0-0.5)
[2023-11-10 11:25] LABS: Thyroid Stimulating Hormone 1.34 uIU/mL (0.465-4.68)
--- NOTE | 2023-11-10 11:28 | CT_ITS ---
PROCEDURE INFORMATION: Exam: CTA Chest With Contrast Exam date and time: 11/10/2023 12:13 PM Age: 83 years old Clinical indication: Shortness of breath; Additional info: SOA, elevated d-dimer TECHNIQUE: Imaging protocol: Computed tomographic angiography of the chest with contrast. Exam focused on the arteries. 3D rendering (Not supervised by radiologist): MIP and/or 3D reconstructed images were created by the technologist. Radiation optimization: All CT scans at this facility use at least one of these dose optimization techniques: automated exposure control; mA and/or kV adjustment per patient size (includes targeted exams where dose is matched to clinical indication); or iterative reconstruction. Contrast material: ISOVUE; Contrast volume: 75 ml; Contrast route: INTRAVENOUS (IV); COMPARISON: 1. CR XR CHEST PORTABLE 11/10/2023 10:36 AM 2. CR XR CHEST 2V 05/10/2020 12:07 PM FINDINGS: Pulmonary arteries: No pulmonary emboli. Aorta: No aortic aneurysm. No aortic dissection. Lungs: Interstitial thickening and mild scattered ground-glass opacities affect the lung bases more than the upper lobes. No confluent airspace consolidation or nodules. Pleural spaces: No pneumothorax. No pleural effusion. Heart: No cardiomegaly. No pericardial effusion. Coronary arteries: Moderate number of coronary artery calcifications. Lymph nodes: A pretracheal lymph node measures 1.7 cm in short axis diameter. No other lymphadenopathy. Liver: Liver has cirrhotic morphology. Gallbladder and bile ducts: Gallstones are present. Bones/joints: No acute fracture. Soft tissues: No soft tissue masses. IMPRESSION: 1. No pulmonary emboli. No aortic aneurysm or intimal dissection. 2. Pretracheal 1.7 cm lymph node is of unknown significance. If comparison CT scans are not available, consider follow-up CT of the chest with contrast in 3 months. 3. Chronic interstitial lung disease is similar to past chest x-rays. 4. Cholelithiasis. 5. Liver has cirrhotic morphology.
--- NOTE | 2023-11-10 11:28 | PC.NURSE ---
purwick placed on pt
[2023-11-10 11:30] LABS: VBG HCO3 29.1 mmol/L (23-30); VBG PH 7.38 mmol/L (7.31-7.41); VBG PO2 44.6 mmol/L (28-40); VBG Total CO2 30.7 mmol/L (23-27)
[2023-11-10 11:33] LABS: Lactate Venous 2.1 mmol/L (0.4-2.0); VBG PCO2 50.4 mmol/L (35-51)
[2023-11-10] MEDS: FUROSEMIDE 40MG/4ML VIAL 80 MG IV (11:33)
[2023-11-10] MEDS: MAGNESIUM SULFATE IN WATER 2 GM/50 ML PIGGYBACK IV (11:33)
[2023-11-10 12:14] LABS: Microscopic, Urine URINE MICROSCOPIC (MICROSCOPIC)
[2023-11-10 12:21] LABS: Appearance,Urine CLEAR (Clear); Bilirubin,Urine Negative (Negative); Blood, Urine TRACE-I (Negative); Glucose,Urine (UA) Negative (Negative); Ketones,Urine Negative (Negative); Leukocyte Esterase,Urine Negative (Negative); Nitrate,Urine Negative (Negative); Protein,Urine 1+ (Negative); Specific Gravity, Urine 1.015 (1.005-1.030); Urobilinogen,Urine 0.2 EU/dl (0.2)
[2023-11-10] MEDS: 0.9 % SODIUM CHLORIDE 50 ML VIAL IV (12:22)
[2023-11-10] MEDS: SODIUM CHLORIDE 0.9% 10ML SYR (RAD ONLY) 10 ML IV (12:22)
[2023-11-10] MEDS: IOPAMIDOL-370 (76%);100ML BOTTLE 75 ML IV (12:22)
[2023-11-10 12:23] LABS: Color,Urine Straw (Yellow)
--- NOTE | 2023-11-10 12:28 | PC.NURSE ---
The pt requested something to drink, I told her we were waiting on the result of her scans. I gave her a few ice chips per DO.
[2023-11-10 12:37] LABS: Bacteria,Urine Trace /lpf; Squamous Epithelial Cell,Urine Occasional #/hpf (0-5); WBC,Urine Occasional #/hpf (0-3)
--- NOTE | 2023-11-10 12:45 | PC.NURSE ---
yi adams for [employer]
--- NOTE | 2023-11-10 12:58 | PC.NURSE ---
pt voided 650 out of purwick
--- NOTE | 2023-11-10 13:01 | HMH.PHAINT1 ---
Pharmacy Intervention Comments: MEDICATION RECONCILIATION COMPLETED ON PATIENT USING EXTERNAL FILL HISTORY FROM PHARMACY AND [facility] REPORT. -NICKY CAMP, JAMESOND
--- NOTE | 2023-11-10 13:05 | PC.NURSE ---
Dr. Henderson talking to for possible admission.
--- NOTE | 2023-11-10 13:28 | PC.NURSE ---
I called report to Louisa LARSON
--- NOTE | 2023-11-10 13:28 | PC.NURSE ---
Dr Henderson speaking to Dr Hernandez
[2023-11-10] MEDS: HYDRALAZINE 20MG/ML VIAL 20 MG IV (13:48)
--- NOTE | 2023-11-10 14:04 | PC.NURSE ---
arrived by stretcher from ED
[2023-11-10 14:13] LABS: Troponin I 0.02 ng/ml (0.00-0.034)
[2023-11-10 15:32] LABS: Reflex Lactic Add Lactic Reflex
[2023-11-10] MEDS: ONDANSETRON 4MG/2ML VIAL 4 MG IV (16:03)
[2023-11-10 16:31] LABS: POC Glucose,Bedside 123 (70-110)
[2023-11-10] MEDS: MONTELUKAST SODIUM 10MG TAB 10 MG PO (17:32)
[2023-11-10] MEDS: IBUPROFEN 600 MG TABLET PO (17:32)
[2023-11-10] MEDS: ACETAMINOPHEN 325MG TAB 650 MG PO (17:33)
[2023-11-10] MEDS: FLUTICASONE/SALMETEROL 250/50MCG DISKUS 1 PUFF IH (17:58)
[2023-11-10 19:14] LABS: Troponin I 0.02 ng/ml (0.00-0.034)
[2023-11-10] MEDS: PREGABALIN 25MG CAPSULE 75 MG PO (20:36)
[2023-11-10] MEDS: AZELASTINE NASAL SPRAY 30ML BOTTLE NS (20:36)
[2023-11-10] MEDS: OXYBUTYNIN 5MG TAB 10 MG PO (20:37)
[2023-11-10] MEDS: PANTOPRAZOLE 40MG TABLET 40 MG PO (20:37)
[2023-11-10] MEDS: PRAVASTATIN 40MG TAB 40 MG PO (20:37)
[2023-11-10 21:45] LABS: POC Glucose,Bedside 129 (70-110)
[2023-11-11] VITALS (8 sets, daily range): BP systolic 98–136; BP diastolic 46–77; PULSE 60–90; RESP 16–20; TEMP 36.5–37.1; O2SAT 92–99; BMI 33.7
--- NOTE | 2023-11-11 00:01 | CA_ITS ---
APPROVED REPORT EXAM: Comprehensive 2D, Doppler, and color-flow Echocardiogram [employer] Consultant: India Worthy CRT Ht: 5 ft 6 in Wt: 210lbs BSA: 2.04 BP: 220/94 mmHg Indications: Congestive Heart Failure, Diabetes, Peripheral Edema, Hyperlipidemia, Hypertension/HDD 2D Dimensions LA Volume 32.10 mL LA Volume Index 15.40 mL/m2 (M/F) 16-34 M-Mode Dimensions RVDd 2.53 cm (0.9-2.6) LA Diam 3.73 cm (1.9-4.0) LVDd 3.27 cm (3.5-5.7) LVDs 1.94 cm (3.5-5.7) IVSd 1.94 cm (0.6-1.1) PWd 0.77 cm (0.6-1.1) EF (Teich) 72.70% FS 40.70% EDV (Teich) 43.20 mL TAPSE 1.49 (<1.7) ESV (Teich) 11.80 mL LV Diastology E Decel Time 330 (160-240 msec) E/A Ratio 0.60 MED A' 7.30 cm/s LAT A' 11.10 cm/s Aortic Valve AO Peak GR. 10.20 mmHg Mitral Valve MV E Max Mustapha. 67.0 (40-130 cm/s) MV A Velocity 112.0 (40-130 cm/s) E/A Ratio 0.60 MV PHT 97.0 ms Pulmonary Valve PV Peak Velocity 127.0 (50-150 cm/s) Left Ventricle The left ventricle is normal size. The left ventricular systolic function is normal. The left ventricular ejection fraction is within the normal range. There is increased LV wall thickness. There is normal LV segmental wall motion. Transmitral Doppler flow pattern suggests impaired LV relaxation. LVEF is 55%. Right Ventricle Right ventricle is moderately dilated. Right ventricle is mildly hypokinetic. Atria The left atrium size is normal. The right atrium size is normal. There is no Doppler evidence of interatrial shunt. Aortic Valve The aortic valve is mildly thickened. Aortic sclerosis is present, but no evidence of aortic stenosis. No aortic regurgitation is present. Mitral Valve The mitral valve leaflets are mildly thickened. No evidence of mitral valve stenosis. There is no mitral valve regurgitation noted. Tricuspid Valve The tricuspid valve leaflets are thin and pliable. Trace tricuspid regurgitation. There is insufficient TR jet to estimate RVSP. Pulmonic Valve The pulmonary valve is grossly normal in structure. Trace pulmonic regurgitation. Great Vessels The aortic root is normal in size. The ascending aorta is normal in size. The IVC is not well-visualized. Pericardium There is no pericardial effusion. Other Information Study Quality: Technically Difficult Conclusion Technically difficult study due to poor acoustic windows. Normal LV systolic function. Moderately dilated RV with mild reduction in RV function. No significant valvular stenosis or regurgitation. Electronically signed by : Erica Romero MD 11/11/2023 23:56:36
--- NOTE | 2023-11-11 03:43 | PC.NURSE ---
Addendum entered by Erma Plummer RN 11/11/23 04:04: Received v.o. from Dr. Hernandez for NS 50ml/hr Original Note: SRNA reported patient has not urinated since 1600 yesterday 11/10/23; bladder scan showed 35mL. Family reports patient hasn't been drinking very much <240mL since admission yesterday. On-call provider Dr. Hernandez notified waiting response.
[2023-11-11] MEDS: 0.9 % SODIUM CHLORIDE 1000ML 1,000 ML 50 ML IV (04:30)
[2023-11-11] MEDS: FLUTICASONE/SALMETEROL 250/50MCG DISKUS 1 PUFF IH ×2 (06:05→18:16)
[2023-11-11 06:22] LABS: POC Glucose,Bedside 111 (70-110)
[2023-11-11 07:32] LABS: Basophils # 0.1 K/mm3 (0-0.2); Basophils % 0.6 % (0.1-2.0); Eosinophils # 0.1 K/mm3 (0.0-0.4); Eosinophils % 1.1 % (0.1-12.0); Hematocrit 38.4 % (37.0-47.0); Hemoglobin 12.1 g/dL (12.2-16.2); Lymphocytes % 23.1 % (10-50); Mean Corpuscular HGB Conc 31.5 g/dL (31.8-35.4); Mean Corpuscular Hemoglobin 26.8 pg (27.0-31.2); Mean Platelet Volume 8.2 fl (7.4-10.4); Monocytes # 0.8 K/mm3 (0.1-1.0); Monocytes % 8.7 % (1.7-9.3); Neutrophils # 5.7 K/mm3 (1.8-7.8); Neutrophils % 66.5 % (37.0-80.0); Platelet Count 224 K/mm3 (142-424); Red Blood Count 4.52 M/mm3 (4.20-5.40); Red Cell Distribution Width 17.3 % (11.5-17.5); White Blood Count 8.6 K/mm3 (4.8-10.8)
[2023-11-11 07:52] LABS: Calcium 8.7 mg/dl (8.4-10.2); Carbon Dioxide 34 mmol/L (22.0-30.0); Chloride 95 mmol/L (98-107); Glucose 107 mg/dl (74-100); Magnesium 1.7 mg/dl (1.6-2.3); Sodium 138 mmol/L (136-145)
[2023-11-11 08:37] LABS: Blood Urea Nitrogen 23 mg/dl (7-17); Creatinine Clearance Estimated 33 mL/min (50-200); Estimated Glomerular Filt Rate 25 ml/min (>60); GFR (African American) 30 ML/MIN (>60)
[2023-11-11] MEDS: AZELASTINE NASAL SPRAY 30ML BOTTLE NS ×2 (09:14→21:51)
[2023-11-11] MEDS: OXYBUTYNIN 5MG TAB 10 MG PO ×2 (09:15→21:46)
[2023-11-11] MEDS: LISINOPRIL 20MG TABLET 20 MG PO (09:15)
[2023-11-11] MEDS: CITALOPRAM 40MG TABLET 40 MG PO (09:15)
[2023-11-11] MEDS: PREGABALIN 25MG CAPSULE 75 MG PO ×2 (09:18→21:46)
--- NOTE | 2023-11-11 09:23 | P.HP_ITS ---
History of Present Illness *Admission Date: 11/11/23 *Reason for visit:: Weakness and shortness of breath *History of present illness: Ms. cortes is an 83-year-old female with a history of hyperlipidemia, osteoarthritis, hypertension, sleep apnea, depression, degenerative disc disease, who presented to [facility] emergency room for evaluation after feeling terrible for about 4 days. She states this progressed and then she developed shortness of breath and had a cough as well. She denies having any chest pain, fever and besides the cough no other upper respiratory symptoms. She states she did have some diarrhea and has been unable to eat or drink. She states she just had no appetite. With evaluation in the emergency room she was found to be quite hypertensive with blood pressure high of 224/106. She was afebrile white count was low at 4500. Potassium was elevated at 5.8. Be [employer] was 6290. She did receive Tylenol 80 of Lasix IV hydralazine 20 mg IV send magnesium sulfate. CTA of the chest was negative for PE and revealed chronic interstitial lung disease, cholelithiasis, and cirrhotic morphology of the liver. [facility] Disclaimer: The information contained in this section may have been updated after the patient was seen, as this information can be updated by other users. 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 History of arthroplasty of right knee History of appendectomy Family History (Updated 11/11/23 @ 09:30 by Vero Harris APRN) Other Heart attack Social History Smoking Status: Never smoker alcohol intake: never substance use type: denies use current occupational status: other Travel in the last 8 weeks: None household members: none caffeine: Yes Review of Systems Constitutional Constitutional: Denies fever(s), Denies frequent falls, Denies headache(s), Reports poor appetite and Reports lethargy Eyes Eyes: Denies change in vision and Denies loss of vision Comments: Has monthly eye injections by [facility]NT Ears, Nose, Mouth, and Throat: Denies dizziness, Denies dysphagia, Denies otalgia, Denies headache(s), Denies sore throat and Denies vertigo *Cardiovascular Cardiovascular: Denies chest pain, Reports dyspnea and Reports leg edema *Respiratory Respiratory: Reports chest congestion, Reports cough, Reports dyspnea, Denies hemoptysis, Denies pain with cough and Denies wheezing *Gastrointestinal Gastrointestinal: Denies constipation, Reports diarrhea, Denies dyspepsia, Denies dysphagia, Reports heartburn, Denies hematemesis, Denies hematochezia, Denies melena, Denies nausea and Denies vomiting *Genitourinary Genitourinary: Denies difficulty voiding *Musculoskeletal Musculoskeletal: Reports abnormal gait (Uses a walker for ambulation due to chronic left ankle deformity) *Neurologic Neurologic: Reports abnormal gait (Uses a walker for ambulation due to chronic left ankle deformity), Denies abnormal speech, Denies dizziness, Denies frequent falls, Denies headache(s), Denies loss of vision and Denies vertigo Allergic/Immunologic Allergic/Immunologic: Denies wheezing Meds Home Medications and Allergies Home Medications Medication Instructions Recorded Confirmed Type celecoxib 200 mg capsule 200 mg PO DAILY Pain 03/06/18 11/10/23 History lisinopril 20 mg tablet 20 mg PO DAILY High Blood Pressure 03/06/18 11/10/23 History metformin 500 mg tablet 500 mg PO BIDWMEAL Diabetes 03/06/18 11/10/23 History montelukast 10 mg tablet 10 mg PO PM Allergy Symptoms 03/06/18 11/10/23 History pregabalin 75 mg capsule (Lyrica) 75 mg PO BID Pain 03/06/18 11/10/23 History simvastatin 20 mg tablet 20 mg PO HS Cholesterol 03/06/18 11/10/23 History spironolactone 50 mg tablet 50 mg PO DAILY Fluid 05/03/21 11/10/23 History azelastine 137 mcg (0.1 %) nasal 2 spray intranasal BID Allergy 11/10/23 11/10/23 History spray aerosol Symptoms escitalopram oxalate 20 mg tablet 20 mg PO DAILY Mood 11/10/23 11/10/23 History esomeprazole magnesium 40 mg 40 mg PO DAILY Acid Reflux 11/10/23 11/10/23 History capsule,delayed release fluticasone 250 mcg-salmeterol 50 1 ea inhalation BID Breathing 11/10/23 11/10/23 History mcg/dose blistr powdr for Problems inhalation (Wixela Inhub) oxybutynin chloride 10 mg 20 mg PO DAILY 11/10/23 11/10/23 History tablet,extended release 24 hr tizanidine 4 mg capsule 4 mg PO HSP PRN muscle spasticity 11/10/23 11/10/23 History New Prescriptions to Start Prescriptions: Allergies Allergy/AdvReac Type Severity Reaction Status Date / Time pollen extracts Allergy Intermediate ASTHMA Verified 11/10/23 10:41 [POLLEN EXTRACTS] Exam Data for Last 24 hours Vital signs and Labs for Last 24 Hours: Temp Pulse Resp BP Pulse Ox O2 Del Method O2 Flow Rate 98.8 F 76 20 129/59 L 94 L Nasal Cannula 4 11/11/23 07:40 11/11/23 07:40 11/11/23 07:40 11/11/23 07:40 11/11/23 07:40 11/11/23 07:40 11/11/23 07:40 Laboratory Results - last 24 hr 11/10/23 10:35: WBC 4.5 L, RBC 4.69, Hgb 13.1, Hct 40.0, MCV 85.2, MCH 27.9, MCHC 32.7, RDW 17.1, Plt Count 105 L, MPV 12.0 H, Neut % (Auto) 74.9, Lymph % (Auto) 14.4, [place] % (Auto) 8.5, Eos % (Auto) 1.3, Baso % (Auto) 1.0, Neut # (Auto) 3.4, Lymph # (Auto) 0.7, [place] # (Auto) 0.4, Eos # (Auto) 0.1, Baso # (Auto) 0.1, D-Dimer 0.83 H, Sodium 138, Potassium 5.8 H, Chloride 98, Carbon Dioxide 31 H, Anion Gap 14.8, BUN 14, Creatinine 0.80, Estimated Creat Clear 63, Estimated GFR 68, Est GFR ( Amer) 82, Glucose 127 H, Calcium 9.5, Phosphorus 4.2, Magnesium 1.3 L, Total Bilirubin 1.6 H, AST 79 H, ALT 27, Alkaline Phosphatase 70, Troponin I 0.02, NT-Pro-B Natriuret Pep 6290 H, Total Protein 8.6 H, Albumin 4.5, Globulin 4.1 H, Albumin/Globulin Ratio 1.1, Lipase 79, TSH 1.34, Thyroxine (T4) 14.7 H, Urine Color Straw, Urine Appearance Clear, Urine pH 7.0, Ur Specific [place] 1.015, Urine Protein 1+, Urine Glucose (UA) Negative, Urine Ketones Negative, Urine Blood Trace-i, Urine Nitrate Negative, Urine Bilirubin Negative, Urine Urobilinogen 0.2, Ur Leukocyte Esterase Negative, Urine RBC 3-5, Urine WBC Occasional, Ur Squamous Epith Cells Occasional, Urine Bacteria Trace 11/10/23 10:45: SARS-CoV-2 (PCR) Not detected, Influenza A Untype (PCR) Not detected, Influenza Type B (PCR) Not detected 11/10/23 10:57: VBG pH 7.38, VBG pCO2 50.4, VBG pO2 44.6 H, VBG HCO3 29.1, VBG Total CO2 30.7 H, VBG O2 Saturation 77.0 H, VBG Base Excess 4.0 H, VBG Lactic Acid 2.1 H 11/10/23 13:36: Troponin I 0.02 11/10/23 15:50: Lactate 1.0 11/10/23 16:06: POC Glucose 123 H 11/10/23 18:10: Troponin I 0.02 11/10/23 20:35: POC Glucose 129 H 11/11/23 06:15: POC Glucose 111 H 11/11/23 06:45: WBC 8.6 D, RBC 4.52, Hgb 12.1 L, Hct 38.4, MCV 85.0, MCH 26.8 L , MCHC 31.5 L, RDW 17.3, Plt Count 224 D, MPV 8.2, Neut % (Auto) 66.5, Lymph % (Auto) 23.1, [place] % (Auto) 8.7, Eos % (Auto) 1.1, Baso % (Auto) 0.6, Neut # (Auto) 5.7, Lymph # (Auto) 2.0, [place] # (Auto) 0.8, Eos # (Auto) 0.1, Baso # (Au to) 0.1, Sodium 138, Potassium 4.0 D, Chloride 95 L, Carbon Dioxide 34 H, Anion Gap 13.0, BUN 23 H D, Creatinine 1.90 H D, Estimated Creat Clear 33, Estimated GFR 25 L, Est GFR ( Amer) 30 L D, Glucose 107 H, Calcium 8.7, Magnesium 1.7 D I & O for Last 24 hours: Intake & Output 11/08/23 11/09/23 11/10/23 11/11/23 11:59 11:59 11:59 11:59 Intake Total 170 / 170 Output Total 800 / 800 Balance -630 / -630 Weight 214 lb 210 lb 1.608 oz Constitutional Constitutional: no acute distress Comments: eating her breakfast and seeme to enjoy *Routine HEENT Exam Head: Present normocephalic and atraumatic Eye: Present PERRL; Absent conjunctival icterus, scleral injection or conjunctivae pink ENT: Present mucous membranes moist and oropharynx clear *Routine Neck Exam Neck: Present supple; Absent carotid bruit, lymphadenopathy or thyromegaly *Routine Respiratory Exam Respiratory: Present wheezes (bilateral scattered posteriorly) *Routine Cardiovascular Exam Cardiovascular: Present irregular rhythm (frequent PAC's and what appears to be runs of atrial fib) *Routine Abdominal Exam Abdominal: Present soft, normoactive bowel sounds, obese and hernia (umbilical); Absent tenderness or distended *Routine Rectal Exam Rectal:: deferred *Routine Genitalia Exam Genitalia:: deferred *Routine Extremities Exam Extremities: Present edema Comments: left lower leg with alligator like skin *Routine Neurological Exam Neurological: Present alert and oriented X3 Assessment and Plan *Assessment and plan (1) Acute hypoxic respiratory failure: Status: Acute Category: Medical Code(s): J96.01 - Acute respiratory failure with hypoxia (2) Hypertensive urgency: Status: Acute Category: Medical Code(s): I16.0 - Hypertensive urgency (3) Elevated brain natriuretic peptide (BNP) level: Status: Acute Category: Medical Code(s): R79.89 - Other specified abnormal findings of blood chemistry (4) General weakness: Status: Acute Category: Medical Code(s): R53.1 - Weakness (5) Hypomagnesemia: Status: Acute Category: Medical Code(s): E83.42 - Hypomagnesemia (6) Acute hyperkalemia: Status: Acute Category: Medical Code(s): E87.5 - Hyperkalemia Plan ECHO; continue with cardiac monitoring; monitor labs; PT/OT to evaluate Dr. Adamson entry - Saw patient, agree with above note. It seems like she could have CHF, await echo report.
[2023-11-11] MEDS: humaLOG 100 UNITS/ML 3ML VIAL (SSI) SQ ×2 (10:36→21:50)
--- NOTE | 2023-11-11 10:49 | HMH.PTEV ---
Physical Therapy Evaluation Rehab PT IP Evaluation Start: 11/11/23 09:37 Freq: ONCE Status: Active Protocol: Document 11/11/23 10:33 SHALINI (Rec: 11/11/23 10:48 SHALINI [id number]) Subjective/History History History Patient is an 83 yof that presents to [facility] after feeling bad for several days. The patient presented to the ED with a blood pressure of 224/ 106. The patient's PMH is significant for Asthma Hyperlipidemia Neuropathy Depression GERD (gastroesophageal reflux disease) Arthritis Hypertension Diabetes Subjective Subjective Patient is agreeable to PT. The patient is supine in bed upon arrival with 5L of O2 and peripheral IV. The patient reports that she is in no pain , at this time. The patient reports that she lives at the [facility] by herself and has had no trouble with ambulation prior to her admission. The patient reports that she previously used a Rollator for community ambulation. New diagnosis of cancer in past 12 No months? Rehab PT IP Eval Objective Appearance Patient Behavior Appropriate,Cooperative, Patient Baseline Patient Orientation Person,Place,Time,Birthday Difficulty following instructions none Speech Pattern Clear,Appropriate,Coherent, Patient Baseline Ambulation Patient Able to Ambulate Yes Ambulation Observation IP General Gait Pattern Observation Shuffling Step Ambulation Distance (feet) 15 Ambulation Assistive Device Rolling Walker Ambulation Ability Contact Guard/Hand Hold Balance Ability to Arise Able, uses arms to help Sitting Balance Steady, safe Standing Balance Steady, wide stance Dynamic Sitting Balance Ability Good Dynamic Standing Balance Ability Good Transfers Bed Transfer Ability Minimal x 1 (25% assist) Chair Transfer Ability Contact Guard/Hand Hold Sit to Stand Bed Transfer Ability Contact Guard/Hand Hold Sit to Stand Chair Transfer Ability Contact Guard/Hand Hold Rehab PT IP prob,goals,plan Problems Date of Evaluation: 11/11/23 PT IP Problems Bed Mobility,Transfers,Gait, Balance,Self care,Safety Rehab Potential Rehab Potential Good Equipment Needs Assistive Devices Rolling / Wheeled Walker Plan PT Intervention Plan Bed Mobility,Transfers,Gait, Balance,Self care,Safety, Therapeutic Exercise PT Plan Frequency Daily Duration LOS Discharge Goals Bed Transfer Ability Independent Sit to Stand Chair Transfer Ability Independent Ambulation Assistive Device Rolling Walker Ambulation Distance (feet) 50 Discharge Plan PT Discharge Plan The patient presents for initial evaluation today and presents below baseline for functional mobility, transfers and endurance. Skilled PT is indicated for this patient to promote a return to her prior level of function. The patient may be most approrpraite for a discharge to home with home health, when she is deemed medically stable for discharge . Eval Complexity Eval Charge Codes 34201 - High Complexity PHYSICIAN CERTIFICATION: I certify the specified therapy services for Kirstie Nascimento are required, authorized, and reviewed every 30 days.
[2023-11-11 11:07] LABS: POC Glucose,Bedside 166 (70-110)
--- NOTE | 2023-11-11 11:24 | HMH.OTEV ---
OT Inpatient Evaluation Rehab OT IP Evaluation Start: 11/11/23 09:37 Freq: ONCE Status: Active Protocol: Document 11/11/23 11:18 [facility] (Rec: 11/11/23 11:24 [facility] [id number]) Rehab OT IP Assessment Subjective History Patient is an 83 yof that presents to [facility] after feeling bad for several days. The patient presented to the ED with a blood pressure of 224/ 106. The patient's PMH is significant for Asthma Hyperlipidemia Neuropathy Depression GERD (gastroesophageal reflux disease) Arthritis Hypertension Diabetes Subjective Patient is agreeable to OT. The patient is supine in bed upon arrival with 5L of O2 and peripheral IV. The patient reports that she is in no pain , at this time. The patient reports that she lives at the [facility] by herself and has had no trouble with ambulation prior to her admission. The patient reports that she previously used a Rollator for community ambulation. Pt also claims she is normally independent with all ADLs and IADLs. Objective Patient Orientation Person,Place,Birthday Right Upper Extremity Gross ROM WFL Left Upper Extremity Gross ROM WFL Transfer Training Sit/Stand Transfer Assist Level Minimal x 1 (25% assist) Chair Transfer Ability Minimal x 1 (25% assist) Chair Transfer Technique Sit to/from Ambulatory Chair Transfer Assistive Devices Rolling Walker Rehab OT IP prob,goals,plan Problems Date of Evaluation: 11/11/23 OT IP Problems Bed Mobility,Transfers,Balance ,Self care,Safety Rehab Potential Rehab Potential Good Equipment Needs Assistive Devices Rolling / Wheeled Walker Plan OT intervention Plan Bed Mobility,Transfers,Balance ,Self care,Safety,Therapeutic Exercise OT Plan Frequency Daily Duration LOS Discharge Goals Bed Mobility Ability Assistance x1 Sit to Stand Chair Transfer Ability Contact Guard/Hand Hold Chair Transfer Ability Contact Guard/Hand Hold Chair Transfer Technique Sit to/from Ambulatory Chair Transfer Assistive Devices Rolling Walker Self care skills uses utensils to feed self Feeding Ability Assist with Tray Set Up Lower Body Dressing Ability Minimal Assistance Upper Body Dressing Ability Contact Guard Bathing Ability Minimal Assistance Performing Toilet Hygiene Ability Contact Guard Overall Commode/Toilet Transfer Ability Standby Assistance,Contact Guard Commode/Toilet Transfer Technique Sit to/from Ambulatory Commode/Toilet Transfer Assistive Grab Bars Devices Oral Care Assist Minimal Assistance Decrease in Endurance No Discharge Plan OT Discharge Plan Pt will continue to be seen for OT services while at [facility]. Pt appears to be close to baseline. Pt can return home once she is medically stable per physician. Therapist recommends HH OT evaluation as needed. Eval Complexity Eval Charge Codes 17410 - Moderate Complexity PHYSICIAN CERTIFICATION: I certify the specified therapy services for Kirstie Nascimento are required, authorized, and reviewed every 30 days.
[2023-11-11 16:31] LABS: POC Glucose,Bedside 147 (70-110)
[2023-11-11] MEDS: MONTELUKAST SODIUM 10MG TAB 10 MG PO (17:14)
--- NOTE | 2023-11-11 17:18 | PC.NURSE ---
A&OX4. STARTED THE DAY ON 4LNC, HAVE BEEN ABLE TO WEAN DOWN TO 1LNC. WILL ATTEMPT TO GET OFF O2. PT AMBULATORY STANDBY ASSIST IN ROOM WITH WALKER. HAS HAD NO NEEDS OR C/O T/O SHIFT. HAS HAD ONE VOID TODAY, 400ML. PT HAS FLUIDS RUNNING AND HAS GOOD ORAL INTAKE. VSS.
[2023-11-11] MEDS: PANTOPRAZOLE 40MG TABLET 40 MG PO (21:46)
[2023-11-11] MEDS: PRAVASTATIN 40MG TAB 40 MG PO (21:46)
[2023-11-11] MEDS: TIZANIDINE 4MG TABLET 4 MG PO (21:50)
[2023-11-11 22:02] LABS: POC Glucose,Bedside 168 (70-110)
[2023-11-12] VITALS (21 sets, daily range): BP systolic 74–136; BP diastolic 36–62; PULSE 52–84; RESP 16–19; TEMP 36.6–36.9; O2SAT 89–97; BMI 35.9; BMI 35.8
--- NOTE | 2023-11-12 00:09 | ECG_ITS ---
APPROVED REPORT Exam: Resting ECG HR:51 bpm ECG Measurements Heart Rate 51 AXES AZ 224 P -36 QRSd 92 QRS 28 QT 466 T 29 QTc 442 Conclusion SINUS BRADYCARDIA WITH FIRST DEGREE AV BLOCK LOW QRS VOLTAGE IN PRECORDIAL LEADS [QRS DEFLECTION < 1.0 mV IN CHEST LEADS] ABNORMAL ECG UNCONFIRMED REPORT Electronically signed by : ELISABET CORNEJO, 11/12/2023 06:47:23
[2023-11-12] MEDS: 0.9 % SODIUM CHLORIDE 200 ML IV (00:12)
[2023-11-12] MEDS: 0.9 % SODIUM CHLORIDE 1000ML 1,000 ML 75 ML IV (00:13)
[2023-11-12 01:00] LABS: POC Glucose,Bedside 137 (70-110)
--- NOTE | 2023-11-12 04:50 | PC.NURSE ---
bp 81/50, hr 53. pt drowsy but arousable but will not stay awake. fsbs 137. dr dickinson made aware. new order for ns bolus 200ml. ekg revealed sb with first degree block. bp improved to 94/44. dr dickinson made aware. no new orders received. bp did continue to improve and pt became more awake and able to converse without falling asleep
[2023-11-12 06:08] LABS: POC Glucose,Bedside 134 (70-110)
[2023-11-12] MEDS: FLUTICASONE/SALMETEROL 250/50MCG DISKUS 1 PUFF IH ×2 (06:33→18:30)
[2023-11-12 07:12] LABS: Basophils % 0.6 % (0.1-2.0); Eosinophils # 0.2 K/mm3 (0.0-0.4); Lymphocytes # 1.7 K/mm3 (0.7-4.5); Lymphocytes % 21.7 % (10-50); Mean Corpuscular HGB Conc 30.9 g/dL (31.8-35.4); Mean Corpuscular Hemoglobin 26.6 pg (27.0-31.2); Mean Corpuscular Volume 85.9 fl (81-99); Mean Platelet Volume 9.3 fl (7.4-10.4); Monocytes # 0.7 K/mm3 (0.1-1.0); Monocytes % 8.3 % (1.7-9.3); Neutrophils # 5.3 K/mm3 (1.8-7.8); Neutrophils % 67.4 % (37.0-80.0); Platelet Count 203 K/mm3 (142-424); Red Blood Count 4.07 M/mm3 (4.20-5.40); Red Cell Distribution Width 17.3 % (11.5-17.5); White Blood Count 7.9 K/mm3 (4.8-10.8)
[2023-11-12 07:26] LABS: Anion Gap 10.4 mEq/L (5-15); Calcium 8.3 mg/dl (8.4-10.2); Carbon Dioxide 32 mmol/L (22.0-30.0); Chloride 94 mmol/L (98-107); Glucose 120 mg/dl (74-100); Potassium 4.4 mmoL/L (3.5-5.1); Sodium 132 mmol/L (136-145)
[2023-11-12 07:30] LABS: Hemoglobin 10.9 g/dL (12.2-16.2)
[2023-11-12 07:31] LABS: Blood Urea Nitrogen 35 mg/dl (7-17); Creatinine Clearance Estimated 30 mL/min (50-200); Estimated Glomerular Filt Rate 21 ml/min (>60); GFR (African American) 26 ML/MIN (>60)
[2023-11-12] MEDS: OXYBUTYNIN 5MG TAB 10 MG PO ×2 (08:09→22:06)
[2023-11-12] MEDS: AZELASTINE NASAL SPRAY 30ML BOTTLE NS ×2 (08:09→22:06)
[2023-11-12] MEDS: LISINOPRIL 20MG TABLET 20 MG PO (08:09)
[2023-11-12] MEDS: CITALOPRAM 40MG TABLET 40 MG PO (08:09)
[2023-11-12] MEDS: PREGABALIN 25MG CAPSULE 75 MG PO ×2 (08:11→22:07)
--- NOTE | 2023-11-12 08:41 | P.PN_ITS ---
Subjective *Date: 11/12/23 *Time: 08:52 Interval history: Patient states she feels well this morning. She did sleep during the night. She states she was up in a chair most of the day yesterday. She did walk with her walker in the room without difficulties and denies shortness of breath. She denies chest pain. She continues to have a periodic cough. She is eating well without problems. Bowels have moved. She is voiding QS. Patient remains on oxygen at 2 L/min with O2 sats 92-98 as documented Laboratory data this morning revealed white blood cell count of 7900 with a hemoglobin of 10.9 hematocrit of 35. Blood chemistries revealed a sodium of 132 potassium is 4.4 BUN is 35 and creatinine has increased to 2.2. Echocardiogram showed normal left ventricular systolic function; moderately dilated right ventricular with mild reduction to right ventricular function; no significant valvular stenosis or regurgitation. Medical Exam Vital signs and Labs for Last 24 Hours: Vital Signs Temp Pulse Pulse Resp BP Pulse Ox O2 Del Method 11/12/23 08:00 98.3 F 68 19 130/54 L 92 L Nasal Cannula 11/12/23 07:00 Nasal Cannula 11/12/23 06:34 97 Nasal Cannula 11/12/23 06:00 100/48 L 11/12/23 05:00 Nasal Cannula 11/12/23 04:10 53 L 11/12/23 04:00 97.8 F 58 L 16 100/42 L 92 L Nasal Cannula 11/12/23 03:10 53 L 102/53 L 11/12/23 03:00 Nasal Cannula 11/12/23 02:38 95/60 L 11/12/23 02:29 76 89/46 L 11/12/23 01:39 56 L 91/43 L 11/12/23 01:24 81/36 L 11/12/23 01:00 Nasal Cannula 11/12/23 01:00 74/51 L 11/12/23 00:39 52 L 18 94/44 L 11/12/23 00:13 52 L 18 85/50 L 92 L Nasal Cannula 11/12/23 00:00 66 11/12/23 00:00 98.5 F 84 16 91/43 L 89 L Nasal Cannula 11/11/23 23:00 Nasal Cannula 11/11/23 21:55 Nasal Cannula 11/11/23 21:00 Nasal Cannula 11/11/23 20:00 60 11/11/23 20:00 98.1 F 63 16 98/46 L 92 L Nasal Cannula 11/11/23 18:33 Nasal Cannula 11/11/23 18:17 Nasal Cannula 11/11/23 17:00 Nasal Cannula 11/11/23 16:00 90 11/11/23 16:00 97.7 F 80 20 110/57 L 99 Nasal Cannula 11/11/23 16:00 99 Nasal Cannula 11/11/23 15:00 Nasal Cannula 11/11/23 13:00 Nasal Cannula 11/11/23 12:00 80 11/11/23 11:00 Nasal Cannula 11/11/23 09:00 Nasal Cannula O2 Flow Rate 11/12/23 08:00 2 11/12/23 07:00 2 11/12/23 06:34 2 11/12/23 06:00 11/12/23 05:00 2 11/12/23 04:10 11/12/23 04:00 2 11/12/23 03:10 11/12/23 03:00 2 11/12/23 02:38 11/12/23 02:29 11/12/23 01:39 11/12/23 01:24 11/12/23 01:00 2 11/12/23 01:00 11/12/23 00:39 11/12/23 00:13 2 11/12/23 00:00 11/12/23 00:00 2 11/11/23 23:00 2 11/11/23 21:55 2 11/11/23 21:00 2 11/11/23 20:00 11/11/23 20:00 2 11/11/23 18:33 2 11/11/23 18:17 2 11/11/23 17:00 2 11/11/23 16:00 11/11/23 16:00 2 11/11/23 16:00 3 11/11/23 15:00 3 11/11/23 13:00 4 11/11/23 12:00 11/11/23 11:00 4 11/11/23 09:00 4 Intake and Output 11/11/23 11/12/23 11/12/23 19:59 03:59 11:59 Intake Total 1010 / 1010 1296 / 2306 554 / 2860 Output Total 400 / 400 0 / 400 Balance 610 / 610 1296 / 1906 554 / 2460 Intake: Intake, Oral Amount 1010 / 1010 240 / 1250 Intake, Total IV Amount 1296 / 1296 314 / 1610 0.9 % Sodium Chloride 1000ML 1, 1296 / 1296 314 / 1610 000 ml @ 50 mls/hr IV .Q20H [facility] Rx#:[id number] Output: Output, Urine Amount 400 / 400 0 / 400 Other: Number of Unmeasured Voids 0 1 Weight 223 lb 1.6 oz Patient Weight 11/12/23 11:59 Weight 223 lb 1.6 oz Laboratory Results - last 24 hr 11/11/23 06:45: BUN 23 H D, Creatinine 1.90 H D, Estimated Creat Clear 33, Estimated GFR 25 L, Est GFR ( Amer) 30 L D 11/11/23 10:30: POC Glucose 166 H 11/11/23 16:22: POC Glucose 147 H 11/11/23 21:40: POC Glucose 168 H 11/11/23 23:55: POC Glucose 137 H 11/12/23 05:56: POC Glucose 134 H 11/12/23 06:05: WBC 7.9, RBC 4.07 L, Hgb 10.9 L, Hct 35.0 L, MCV 85.9, MCH 26.6 L, MCHC 30.9 L, RDW 17.3, Plt Count 203, MPV 9.3, Neut % (Auto) 67.4, Lymph % (Auto) 21.7, [place] % (Auto) 8.3, Eos % (Auto) 2.0, Baso % (Auto) 0.6, Neut # (Auto) 5.3, Lymph # (Auto) 1.7, [place] # (Auto) 0.7, Eos # (Auto) 0.2, Baso # (Auto) 0.0, Sodium 132 L, Potassium 4.4, Chloride 94 L, Carbon Dioxide 32 H, Anion Gap 10.4, BUN 35 H D, Creatinine 2.20 H, Estimated Creat Clear 30, Estimated GFR 21 L, Est GFR ( Amer) 26 L, Glucose 120 H, Calcium 8.3 L I & O for Labs for Last 24 Hours: Intake & Output 11/09/23 11/10/23 11/11/23 03/19/24 11:59 11:59 11:59 11:59 Intake Total 540 / 540 2860 / 2860 Output Total 800 / 800 400 / 400 Balance -260 / -260 2460 / 2460 Weight 214 lb 210 lb 1.608 oz 223 lb 1.6 oz Constitutional: Present no acute distress Comment:: Awakened for exam. Respiratory: Present CTA bilaterally (Anteriorly and posteriorly) Cardiac: Present Irregularly Regular (Monitor revealing sinus rhythm with very frequent PACs) GI: Present soft (Obese) and normal bowel sounds; Absent tenderness, guarding or rigidity Extremities: Absent tenderness, edema or calf tenderness Comment:: Left lower leg with skin changes. Neuro: Present alert and oriented x 3 Assessment and Plan *Assessment and plan (1) Acute hypoxic respiratory failure: Status: Acute Category: Medical Code(s): J96.01 - Acute respiratory failure with hypoxia (2) Hypertensive urgency: Status: Acute Category: Medical Code(s): I16.0 - Hypertensive urgency (3) Elevated brain natriuretic peptide (BNP) level: Status: Acute Category: Medical Code(s): R79.89 - Other specified abnormal findings of blood chemistry (4) General weakness: Status: Acute Category: Medical Code(s): R53.1 - Weakness (5) Hypomagnesemia: Status: Acute Category: Medical Code(s): E83.42 - Hypomagnesemia (6) Acute hyperkalemia: Status: Acute Category: Medical Code(s): E87.5 - Hyperkalemia (7) RICHIE (acute kidney injury): Status: Acute Category: Medical Code(s): N17.9 - Acute kidney failure, unspecified Plan Will gently give patient IV fluids today. Dr. Adamson entry - Saw patient, agree with above note, attempt to wean O2 today.
[2023-11-12] MEDS: 0.9 % SODIUM CHLORIDE 1000ML 1,000 ML 100 ML IV ×2 (10:09→22:10)
[2023-11-12 11:21] LABS: POC Glucose,Bedside 132 (70-110)
--- NOTE | 2023-11-12 11:40 | CARE MANAGER ---
Addendum entered by Melony Kim 11/14/23 10:00: Mary shine/ [facility] stated that services will start for this patient. Addendum entered by Melony Kim 11/14/23 09:10: The plan for this patient is to return home today. Patient information/order will be faxed to [facility]: I will follow up once reviewed. Addendum entered by Kyung Oscar RN 11/12/23 11:41: Error not faxing now. Will fax when ready for DC. Original Note: Therapy recommended home health at discharge. Spoke with patient and wants [facility] when she is ready for DC. Will fax info now. NEO Michele
[2023-11-12 16:25] LABS: POC Glucose,Bedside 135 (70-110)
--- NOTE | 2023-11-12 16:26 | PC.NURSE ---
A&OX4. TOLERATING 1.5LNC AT THIS TIME. HAVE ATTEMPTED TO WEAN TO 1LNC BUT PT O2 SAT STAYED IN THE LOW 80S, SO INCREASED TO 1.5L. TOLERATING WELL THUS FAR. PT HAS BEEN AMBULATING WITH STANDBY ASSIST AND WALKER, TOLERATING WELL. HAS VOIDED MULTIPLE TIMES THIS SHIFT. NO BM NOTED, IS PASSING GAS. HAS BEEN UP TO CHAIR T/O THIS SHIFT. HAS HAD NO C/O THUS FAR. VSS.
[2023-11-12] MEDS: MONTELUKAST SODIUM 10MG TAB 10 MG PO (17:08)
[2023-11-12 20:51] LABS: POC Glucose,Bedside 144 (70-110)
[2023-11-12] MEDS: PANTOPRAZOLE 40MG TABLET 40 MG PO (22:07)
[2023-11-12] MEDS: PRAVASTATIN 40MG TAB 40 MG PO (22:07)
[2023-11-12] MEDS: TIZANIDINE 4MG TABLET 4 MG PO (22:08)
[2023-11-13] VITALS (9 sets, daily range): BP systolic 100–164; BP diastolic 53–66; PULSE 52–70; RESP 17–21; TEMP 36.6–36.7; O2SAT 85–100; BMI 35.4
--- NOTE | 2023-11-13 | PC.NURSE ---
REPIRATORY CARE PLACED PT ON RA SATS DROPPED TO 87 RETURNED PT TO 1.5L NC
[2023-11-13 06:04] LABS: POC Glucose,Bedside 144 (70-110)
[2023-11-13] MEDS: FLUTICASONE/SALMETEROL 250/50MCG DISKUS 1 PUFF IH ×2 (06:48→18:23)
[2023-11-13 07:17] LABS: Basophils % 0.6 % (0.1-2.0); Eosinophils # 0.2 K/mm3 (0.0-0.4); Eosinophils % 3.4 % (0.1-12.0); Hematocrit 34.8 % (37.0-47.0); Hemoglobin 10.9 g/dL (12.2-16.2); Lymphocytes # 1.2 K/mm3 (0.7-4.5); Mean Corpuscular HGB Conc 31.3 g/dL (31.8-35.4); Mean Corpuscular Hemoglobin 27.1 pg (27.0-31.2); Mean Corpuscular Volume 86.7 fl (81-99); Mean Platelet Volume 8.5 fl (7.4-10.4); Monocytes # 0.4 K/mm3 (0.1-1.0); Monocytes % 7.5 % (1.7-9.3); Neutrophils # 3.1 K/mm3 (1.8-7.8); Neutrophils % 63.6 % (37.0-80.0); Platelet Count 177 K/mm3 (142-424); Red Blood Count 4.02 M/mm3 (4.20-5.40); Red Cell Distribution Width 17.3 % (11.5-17.5); White Blood Count 4.9 K/mm3 (4.8-10.8)
[2023-11-13 08:19] LABS: Chloride 103 mmol/L (98-107); Sodium 137 mmol/L (136-145)
--- NOTE | 2023-11-13 08:19 | EXP.ACUTE.PN ---
Subjective *Date: 11/13/23 *Time: 08:50 Interval history: The patient slept well last night and was up in the chair most of the day yesterday. She is able to walk with her walker in the room but complains of some left foot and ankle pain. She is still on oxygen. Medical Exam Vital signs and Labs for Last 24 Hours: Vital Signs Temp Pulse Pulse Resp BP Pulse Ox O2 Del Method 11/13/23 07:00 Nasal Cannula 11/13/23 06:49 91 L Nasal Cannula 11/13/23 05:00 Nasal Cannula 11/13/23 04:00 52 L 11/13/23 04:00 98.1 F 55 L 17 100/53 L 91 L Nasal Cannula 11/13/23 03:00 Nasal Cannula 11/13/23 01:00 Nasal Cannula 11/13/23 00:00 62 11/13/23 00:00 98 F 69 17 136/64 96 11/12/23 23:00 Nasal Cannula 11/12/23 21:55 Nasal Cannula 11/12/23 21:00 Nasal Cannula 11/12/23 20:00 62 11/12/23 20:00 97.9 F 61 16 136/51 L 91 L Nasal Cannula 11/12/23 19:14 91 L Nasal Cannula 11/12/23 18:55 Nasal Cannula 11/12/23 18:48 Nasal Cannula 11/12/23 16:35 Nasal Cannula 11/12/23 16:00 60 11/12/23 15:58 90 L Nasal Cannula 11/12/23 15:51 97.9 F 58 L 18 120/62 90 L Nasal Cannula 11/12/23 14:53 Nasal Cannula 11/12/23 13:00 Nasal Cannula 11/12/23 12:00 60 11/12/23 11:16 97.9 F 59 L 19 119/53 L 94 L Nasal Cannula 11/12/23 10:31 Nasal Cannula 11/12/23 09:00 Nasal Cannula O2 Flow Rate 11/13/23 07:00 2 11/13/23 06:49 3 11/13/23 05:00 2 11/13/23 04:00 11/13/23 04:00 11/13/23 03:00 2 11/13/23 01:00 2 11/13/23 00:00 11/13/23 00:00 11/12/23 23:00 1.5 11/12/23 21:55 1.5 11/12/23 21:00 1.5 11/12/23 20:00 11/12/23 20:00 11/12/23 19:14 2 11/12/23 18:55 1 11/12/23 18:48 1.5 11/12/23 16:35 1.5 11/12/23 16:00 11/12/23 15:58 1 11/12/23 15:51 1 11/12/23 14:53 1 11/12/23 13:00 2 11/12/23 12:00 11/12/23 11:16 2 11/12/23 10:31 1 11/12/23 09:00 2 Intake and Output 11/12/23 11/13/23 11/13/23 19:59 03:59 11:59 Intake Total 480 / 3055 2320 / 3055 255 / 3055 Output Total 200 / 1900 1000 / 1900 700 / 1900 Balance 280 / 1155 1320 / 1155 -445 / 1155 Intake: Intake, Oral Amount 480 / 600 120 / 600 Intake, Total IV Amount 2200 / 2455 255 / 2455 0.9 % Sodium Chloride 1000ML 1, 2200 / 2455 255 / 2455 000 ml @ 100 mls/hr IV .Q10H [facility] Rx#:[id number] Output: Output, Urine Amount 200 / 1900 1000 / 1900 700 / 1900 Other: Number of Unmeasured Voids 1 1 1 Weight 220 lb 1.6 oz Patient Weight 11/13/23 11:59 Weight 220 lb 1.6 oz Laboratory Results - last 24 hr 11/12/23 11:06: POC Glucose 132 H 11/12/23 16:16: POC Glucose 135 H 11/12/23 19:54: POC Glucose 144 H 11/13/23 05:46: POC Glucose 144 H 11/13/23 06:40: WBC 4.9 D, RBC 4.02 L, Hgb 10.9 L, Hct 34.8 L, MCV 86.7, MCH 27.1, MCHC 31.3 L, RDW 17.3, Plt Count 177, MPV 8.5, Neut % (Auto) 63.6, Lymph % (Auto) 25.0, C[place] % (Auto) 7.5, Eos % (Auto) 3.4, Baso % (Auto) 0.6, Neut # (Auto) 3.1, Lymph # (Auto) 1.2, [place] # (Auto) 0.4, Eos # (Auto) 0.2, Baso # (Auto) 0.0 I & O for Labs for Last 24 Hours: Intake & Output 11/10/23 11/11/23 11/12/23 11/13/23 11:59 11:59 11:59 11:59 Intake Total 540 / 540 2860 / 2860 3055 / 3055 Output Total 800 / 800 400 / 400 1900 / 1900 Balance -260 / -260 2460 / 2460 1155 / 1155 Weight 214 lb 210 lb 1.608 oz 222 lb 10.67 oz 220 lb 1.6 oz Constitutional: Present no acute distress Comment:: Awakened for exam. Respiratory: Present CTA bilaterally (Anteriorly and posteriorly) Cardiac: Present Irregularly Regular (Monitor revealing sinus rhythm with very frequent PACs) GI: Present soft (Obese) and normal bowel sounds; Absent tenderness, guarding or rigidity Extremities: Present edema (bilateral LE's); Absent tenderness or calf tenderness Comment:: Left lower leg with skin changes. Neuro: Present alert, awake and oriented x 3 Assessment and Plan *Assessment and plan (1) Acute hypoxic respiratory failure: Status: Acute Category: Medical Code(s): J96.01 - Acute respiratory failure with hypoxia (2) Elevated brain natriuretic peptide (BNP) level: Status: Acute Category: Medical Code(s): R79.89 - Other specified abnormal findings of blood chemistry (3) General weakness: Status: Acute Category: Medical Code(s): R53.1 - Weakness (4) Hypomagnesemia: Status: Acute Category: Medical Code(s): E83.42 - Hypomagnesemia (5) Acute hyperkalemia: Status: Acute Category: Medical Code(s): E87.5 - Hyperkalemia (6) RICHIE (acute kidney injury): Status: Acute Category: Medical Code(s): N17.9 - Acute kidney failure, unspecified (7) Hypertensive urgency: Status: Acute Category: Medical Code(s): I16.0 - Hypertensive urgency Plan Will attempt to wean oxygen today. Blood pressure was low at 4 AM this morning. Will discuss further care with Dr. Adamson. Dr. Adamson entry - Saw patient, agree with above note. Nurses report O2 sat was 74% on room air overnight after patient walked to the bathroom. Respiratory therapy reported a room air sat of 87% this morning while patient was at rest. BMP still pending this morning.
[2023-11-13 08:58] LABS: Calcium 8.7 mg/dl (8.4-10.2); Carbon Dioxide 30 mmol/L (22.0-30.0); Glucose 132 mg/dl (74-100)
[2023-11-13 09:32] LABS: Creatinine Clearance Estimated 54 mL/min (50-200); Estimated Glomerular Filt Rate 43 ml/min (>60); GFR (African American) 52 ML/MIN (>60)
[2023-11-13] MEDS: AZELASTINE NASAL SPRAY 30ML BOTTLE NS ×2 (09:59→20:06)
[2023-11-13] MEDS: OXYBUTYNIN 5MG TAB 10 MG PO ×2 (09:59→20:05)
[2023-11-13] MEDS: PREGABALIN 25MG CAPSULE 75 MG PO ×2 (10:00→20:05)
[2023-11-13] MEDS: LISINOPRIL 20MG TABLET 20 MG PO (10:00)
[2023-11-13] MEDS: CITALOPRAM 40MG TABLET 40 MG PO (10:02)
[2023-11-13 11:48] LABS: POC Glucose,Bedside 115 (70-110)
[2023-11-13 14:05] LABS: Blood Urea Nitrogen 29 mg/dl (7-17)
[2023-11-13 16:27] LABS: POC Glucose,Bedside 127 (70-110)
--- NOTE | 2023-11-13 17:37 | PC.NURSE ---
Azalea avalos&olga4 and vss. Patient unable to tolerate RA, oxygen at 1.5L NC. Patient RA sat at 85%. Patient has had no c/o pain this shift.
[2023-11-13] MEDS: MONTELUKAST SODIUM 10MG TAB 10 MG PO (18:01)
[2023-11-13] MEDS: PRAVASTATIN 40MG TAB 40 MG PO (20:05)
[2023-11-13] MEDS: TIZANIDINE 4MG TABLET 4 MG PO (20:05)
[2023-11-13] MEDS: PANTOPRAZOLE 40MG TABLET 40 MG PO (20:05)
[2023-11-13 21:26] LABS: POC Glucose,Bedside 130 (70-110)
[2023-11-14] VITALS: BP 133/67; PULSE 60; PULSE 64; RESP 18; TEMP 37; O2SAT 96
[2023-11-14 04:00] VITALS: BP 112/52; PULSE 46; PULSE 50; RESP 18; TEMP 36.5; O2SAT 94; BMI 35.4
--- NOTE | 2023-11-14 04:46 | PC.NURSE ---
pATIENT HAS RESTED WELL THIS SHIFT. 02 REMAINS AT 1.5LNC AND TOLERATING WELL. VITAL SIGNS STABLE. HR DROPS TO MID 40s BUT APPEARS TO BE SINUS WITH 1ST DEGREE AVBLOCK.
[2023-11-14 05:10] LABS: POC Glucose,Bedside 186 (70-110)
[2023-11-14] MEDS: FLUTICASONE/SALMETEROL 250/50MCG DISKUS 1 PUFF IH ×2 (05:10→06:40)
[2023-11-14] MEDS: humaLOG 100 UNITS/ML 3ML VIAL (SSI) SQ (05:10)
[2023-11-14 08:00] VITALS: BP 130/61; PULSE 55; PULSE 57; RESP 18; TEMP 36.6; O2SAT 93
--- NOTE | 2023-11-14 08:07 | EXP.ACUTE.PN ---
Subjective *Date: 11/14/23 *Time: 08:35 Interval history: Patient states she is feeling well today. She sat up in a chair most of the day yesterday. Able to move about the room with her walker. Anxious to go home. States she is eating and sleeping well. Unable to wean from oxygen. Room air sats have been in the mid 80's. Medical Exam Vital signs and Labs for Last 24 Hours: Vital Signs Temp Pulse Pulse Resp BP Pulse Ox O2 Del Method 11/14/23 06:42 Nasal Cannula 11/14/23 05:00 Nasal Cannula 11/14/23 04:00 97.7 F 50 L 18 112/52 L 94 L 11/14/23 04:00 46 L 11/14/23 03:00 Nasal Cannula 11/14/23 01:00 Nasal Cannula 11/14/23 00:00 60 11/14/23 00:00 98.6 F 64 18 133/67 96 11/13/23 23:00 Nasal Cannula 11/13/23 21:00 Nasal Cannula 11/13/23 20:00 100 Nasal Cannula 11/13/23 20:00 57 L 11/13/23 19:55 97.9 F 53 L 17 164/66 H 100 Nasal Cannula 11/13/23 16:00 60 11/13/23 16:00 97.8 F 55 L 18 159/66 H 100 Nasal Cannula 11/13/23 12:00 60 11/13/23 12:00 98.0 F 52 L 19 156/63 H 98 Nasal Cannula 11/13/23 10:00 85 L Room Air O2 Flow Rate 11/14/23 06:42 1.5 11/14/23 05:00 1.5 11/14/23 04:00 11/14/23 04:00 11/14/23 03:00 1.5 11/14/23 01:00 1.5 11/14/23 00:00 11/14/23 00:00 11/13/23 23:00 1.5 11/13/23 21:00 1.5 11/13/23 20:00 1.5 11/13/23 20:00 11/13/23 19:55 11/13/23 16:00 11/13/23 16:00 2 11/13/23 12:00 11/13/23 12:00 2 11/13/23 10:00 Intake and Output 11/13/23 11/14/23 11/14/23 19:59 03:59 11:59 Intake Total 820 / 1060 240 / 1060 Output Total 0 / 200 0 / 200 200 / 200 Balance 820 / 860 240 / 860 -200 / 860 Intake: Intake, Oral Amount 820 / 1060 240 / 1060 Output: Output, Urine Amount 0 / 200 0 / 200 200 / 200 Other: Number of Unmeasured Voids 1 1 0 Weight 220 lb 1.611 oz Patient Weight 11/14/23 11:59 Weight 220 lb 1.611 oz Laboratory Results - last 24 hr 11/13/23 06:40: Sodium 137, Potassium 5.0, Chloride 103, Carbon Dioxide 30, Anion Gap 9.0, BUN 29 H, Creatinine 1.20 H D, Estimated Creat Clear 54, Estimated GFR 43 L, Est GFR ( Amer) 52 L D, Glucose 132 H, Calcium 8.7 11/13/23 11:41: POC Glucose 115 H 11/13/23 16:18: POC Glucose 127 H 11/13/23 19:47: POC Glucose 130 H 11/14/23 05:01: POC Glucose 186 H I & O for Labs for Last 24 Hours: Intake & Output 11/11/23 11/12/23 11/13/23 11/14/23 11:59 11:59 11:59 11:59 Intake Total 540 / 540 2860 / 2860 3635 / 3635 1060 / 1060 Output Total 800 / 800 400 / 400 1900 / 1900 200 / 200 Balance -260 / -260 2460 / 2460 1735 / 1735 860 / 860 Weight 210 lb 1.608 oz 222 lb 10.67 oz 220 lb 1.6 oz 220 lb 1.611 oz Constitutional: Present no acute distress Respiratory: Present CTA bilaterally Cardiac: Present Reg Rate and Rhythm GI: Present soft; Absent distention or tenderness Extremities: Present edema (LLE) Skin: Present intact Neuro: Present alert, awake and oriented x 3 Assessment and Plan *Assessment and plan (1) Acute hypoxic respiratory failure: Status: Acute Category: Medical Code(s): J96.01 - Acute respiratory failure with hypoxia (2) Elevated brain natriuretic peptide (BNP) level: Status: Acute Category: Medical Code(s): R79.89 - Other specified abnormal findings of blood chemistry (3) General weakness: Status: Acute Category: Medical Code(s): R53.1 - Weakness (4) Hypomagnesemia: Status: Acute Category: Medical Code(s): E83.42 - Hypomagnesemia (5) Acute hyperkalemia: Status: Acute Category: Medical Code(s): E87.5 - Hyperkalemia (6) RICHIE (acute kidney injury): Status: Acute Category: Medical Code(s): N17.9 - Acute kidney failure, unspecified (7) Hypertensive urgency: Status: Acute Category: Medical Code(s): I16.0 - Hypertensive urgency Plan Renal function has improved. Can likely discharge today but will need home oxygen. Dr. Adamson entry - Saw patient, agree with above note. OK for discharge today with oxygen, plan office f/u next week.
[2023-11-14] MEDS: OXYBUTYNIN 5MG TAB 10 MG PO (08:54)
[2023-11-14] MEDS: PREGABALIN 25MG CAPSULE 75 MG PO (08:54)
[2023-11-14] MEDS: CITALOPRAM 40MG TABLET 40 MG PO (08:54)
[2023-11-14] MEDS: AZELASTINE NASAL SPRAY 30ML BOTTLE NS (08:55)
[2023-11-14] MEDS: LISINOPRIL 20MG TABLET 20 MG PO (08:55)
--- NOTE | 2023-11-14 09:58 | HMH.PHAINT1 ---
Pharmacy Intervention Comments: Discharge medication counseling was provided; patient had no new medications to stop or start. Patient was to continue home medications. Patient verbalized understanding and had no further questions.
[2023-11-14 13:03] LABS: POC Glucose,Bedside 114 (70-110)
--- NOTE | 2023-11-18 16:28 | CARE MANAGER ---
Attempted post-discharge phone call, no answer. No voicemail option.
--- NOTE | 2023-11-20 11:25 | P.DS_ITS ---
General Admission date:: 11/10/23 Discharge date: 11/14/23 HPI HPI HPI: Ms. cortes is an 83-year-old female with a history of hyperlipidemia, osteoarthritis, hypertension, sleep apnea, depression, degenerative disc d isease, who presented to [facility] emergency room for evaluation after feeling terrible for about 4 days. She states this progressed and then she developed shortness of breath and had a cough as well. She denies having any chest pain, fever and besides the cough no other upper respiratory symptoms. She states she did have some diarrhea and has been unable to eat or drink. She states she just had no appetite. With evaluation in the emergency room she was found to be quite hypertensive with blood pressure high of 224/106. She was afebrile white count was low at 4500. Potassium was elevated at 5.8. Be [employer]ATIONS [employer] was 6290. She did receive Tylenol 80 of Lasix IV hydralazine 20 mg IV send magnesium sulfate. CTA of the chest was negative for PE and revealed chronic interstitial lung disease, cholelithiasis, and cirrhotic morphology of the liver. Hospital Course Hospital Course Hospital Course: The patient was admitted and an echo was ordered. PT and OT were also ordered to evaluate the patient. She was able to get up and sit in the chair and was able to walk with her walker around the room without difficulty. She was eating without problems and her bowels were moving. She remained on oxygen at 2 L/min with sats ranging from 92 to 98%. Her echo showed normal left ventricular systolic function, mildly dilated right ventricle with mild reduction to the right ventricular function, and no significant valvular stenosis or regurgitation. She was given some IV fluids and her oxygen was weaned. Her sats dropped to 74% and her oxygen had to be turned back on. By 11/14/2023, she was feeling much better and was anxious to go home. She was unable to be weaned from her oxygen as her room air sats were in the mid 80s. It was felt she could be discharged home with oxygen as her renal function had improved. She will follow-up with Dr. Adamson in the office. Exam Data for Last 24 hours Vital signs and Labs for Last 24 Hours: Temp Pulse Resp BP Pulse Ox O2 Del Method O2 Flow Rate 97.8 F 57 L 18 130/61 93 L Nasal Cannula 1.5 11/14/23 08:00 11/14/23 08:00 11/14/23 08:00 11/14/23 08:00 11/14/23 08:00 11/14/23 08:00 11/14/23 08:00 Narrative: Constitutional Constitutional: no acute distress Comments: eating her breakfast and seeme to enjoy *Routine HEENT Exam Head: Present normocephalic and atraumatic Eye: Present PERRL; Absent conjunctival icterus, scleral injection or conjunctivae pink ENT: Present mucous membranes moist and oropharynx clear *Routine Neck Exam Neck: Present supple; Absent carotid bruit, lymphadenopathy or thyromegaly *Routine Respiratory Exam Respiratory: Present wheezes (bilateral scattered posteriorly) *Routine Cardiovascular Exam Cardiovascular: Present irregular rhythm (frequent PAC's and what appears to be runs of atrial fib) *Routine Abdominal Exam Abdominal: Present soft, normoactive bowel sounds, obese and hernia (umbilical); Absent tenderness or distended *Routine Rectal Exam Rectal:: deferred *Routine Genitalia Exam Genitalia:: deferred *Routine Extremities Exam Extremities: Present edema Comments: left lower leg with alligator like skin *Routine Neurological Exam Neurological: Present alert and oriented X3 DS: Diagnosis Discharge Diagnosis (1) Acute hypoxic respiratory failure: Status: Acute Code(s): J96.01 - Acute respiratory failure with hypoxia (2) Elevated brain natriuretic peptide (BNP) level: Status: Acute Code(s): R79.89 - Other specified abnormal findings of blood chemistry (3) General weakness: Status: Acute Code(s): R53.1 - Weakness (4) Hypomagnesemia: Status: Acute Code(s): E83.42 - Hypomagnesemia (5) Acute hyperkalemia: Status: Acute Code(s): E87.5 - Hyperkalemia (6) RICHIE (acute kidney injury): Status: Acute Code(s): N17.9 - Acute kidney failure, unspecified (7) Hypertensive urgency: Status: Acute Code(s): I16.0 - Hypertensive urgency Meds Home Medications and Allergies Home Medications Medication Instructions Recorded Confirmed Type celecoxib 200 mg capsule 200 mg PO DAILY Pain 03/06/18 11/10/23 History lisinopril 20 mg tablet 20 mg PO DAILY High Blood Pressure 03/06/18 11/10/23 History metformin 500 mg tablet 500 mg PO BIDWMEAL Diabetes 03/06/18 11/10/23 History montelukast 10 mg tablet 10 mg PO PM Allergy Symptoms 03/06/18 11/10/23 History pregabalin 75 mg capsule (Lyrica) 75 mg PO BID Pain 03/06/18 11/10/23 History simvastatin 20 mg tablet 20 mg PO HS Cholesterol 03/06/18 11/10/23 History spironolactone 50 mg tablet 50 mg PO DAILY Fluid 05/03/21 11/10/23 History azelastine 137 mcg (0.1 %) nasal 2 spray intranasal BID Allergy 11/10/23 11/10/23 History spray aerosol Symptoms escitalopram oxalate 20 mg tablet 20 mg PO DAILY Mood 11/10/23 11/10/23 History esomeprazole magnesium 40 mg 40 mg PO DAILY Acid Reflux 11/10/23 11/10/23 History capsule,delayed release fluticasone 250 mcg-salmeterol 50 1 ea inhalation BID Breathing 11/10/23 11/10/23 History mcg/dose blistr powdr for Problems inhalation (Wixela Inhub) oxybutynin chloride 10 mg 20 mg PO DAILY 11/10/23 11/10/23 History tablet,extended release 24 hr tizanidine 4 mg capsule 4 mg PO HSP PRN muscle spasticity 11/10/23 11/10/23 History mv-mn-folic 200 mcg-vit K 15 1 cap PO BID 11/11/23 11/11/23 History mcg-lutein 5 mg-zeaxanthin 1 mg capsule (PreserVision AREDS 2 Plus Multivit) New Prescriptions to Start Prescriptions: Allergies Allergy/AdvReac Type Severity Reaction Status Date / Time pollen extracts Allergy Intermediate ASTHMA Verified 11/10/23 10:41 [POLLEN EXTRACTS] Discharge Plan Disposition Patient Disposition: Home Health Service Condition: Fair Discharge Order Discharge Orders: Discharge Order (Routine); Ordered 11/14/23 Ordered By: Allan Adamson Follow up Plan Follow up with: Allan Adamson MD [Primary Care Provider] - 11/19/23 10:30 am Prescriptions/Medication Reconciliation: Continued fluticasone propion-salmeterol [Wixela Inhub] 250-50 mcg/dose blister with device 1 ea INHALATION BID oxybutynin chloride 10 mg tablet extended release 24hr 20 mg PO DAILY Patient Comments: TAKE 2 TABLETS BY MOUTH ONCE DAILY esomeprazole magnesium 40 mg capsule,delayed release(DR/EC) 40 mg PO DAILY escitalopram oxalate 20 mg tablet 20 mg PO DAILY Patient Comments: TAKE 1 TABLET BY MOUTH ONCE DAILY azelastine 137 mcg (0.1 %) aerosol,spray 2 spray INTRANASAL BID tizanidine 4 mg capsule 4 mg PO HSP PRN (Reason: muscle spasticity) PreserVision AREDS 2 Plus MV 200 mcg-15 mcg- 5 mg-1 mg Capsule 1 cap PO BID celecoxib 200 capsule 200 mg PO DAILY metformin 500 MG tablet 500 mg PO BIDWMEAL lisinopril 20 tablet 20 mg PO DAILY simvastatin 20 tablet 20 mg PO HS montelukast 10 MG tablet 10 mg PO PM pregabalin [Lyrica] 75 capsule 75 mg PO BID spironolactone 50 MG tablet 50 mg PO DAILY Problem Reconciliation Problems Reviewed?: Yes Patient Discharge Instructions ACTIVITY: Continue current activity DIET: continue same diet Additional Instructions: Supplemental oxygen at 2 L/min/NC Patient Instructions: DI for Heart Failure, Acute Kidney Injury, DI for Hyperkalemia, DI for Respiratory Failure Providers Primary Care Provider: Allan Adamson Admit Provider: Cody Hernandez Attending Provider: Allan Adamson
== END 2023-11-14 12:39 | disposition home health service (06) | DRG 291 ==
LOC: ER 13:05 → 2ND 13:14
PROVIDERS: Admitting Provider Internal Medicine Adolescent Medicine; Emergency Provider Emergency Medicine; PCP Family Medicine; Visit Provider Family Medicine
DX: I11.0 Hypertensive heart disease with heart failure (principal); J96.01 Acute respiratory failure with hypoxia; I16.1 Hypertensive emergency; N17.9 Acute kidney failure, unspecified; I50.9 Heart failure, unspecified; E87.5 Hyperkalemia; E83.42 Hypomagnesemia; E78.5 Hyperlipidemia, unspecified; E11.9 Type 2 diabetes mellitus without complications; Z79.84 Long term (current) use of oral hypoglycemic drugs; E11.40 Type 2 diabetes mellitus with diabetic neuropathy, unspecified; K21.9 Gastro-esophageal reflux disease without esophagitis; Z79.899 Other long term (current) drug therapy
CPT/HCPCS: 36415; 71045; 71275; 80048; 80053; 81001; 82803; 82962; 83605; 83690; 83735; 83880; 84100; 84436; 84443; 84484; 85025; 85378; 87636; 93005; 93306; 94640; 94761; 97110; 97116; 97163; 97166; 97530; 97535; 99285; J2405; J3475; Q9967

== ENCOUNTER 2024-02-20 06:39 | Inpatient (IN) | payer MEDICARE, BC, SELFPAY ==
[2024-02-20] VITALS (11 sets, daily range): BP systolic 113–205; BP diastolic 68–97; PULSE 50–79; RESP 17–22; TEMP 36.6–37; O2SAT 79–100; BMI 35.6; BMI 34.0
--- NOTE | 2024-02-20 06:44 | ECG_ITS ---
APPROVED REPORT Exam: Resting ECG HR:55 bpm ECG Measurements Heart Rate 55 AXES OR 168 P -79 QRSd 113 QRS 79 QT 460 T 53 QTc 448 Conclusion ECTOPIC ATRIAL BRADYCARDIA WITH OCCASIONAL SUPRAVENTRICULAR PREMATURE COMPLEXES INCOMPLETE RIGHT BUNDLE BRANCH BLOCK [90+ ms QRS DURATION, TERMINAL R IN V1/V2, 40+ ms S IN I/aVL/V4/V5/V6] Electronically signed by : ALMAS MCCOLLUM, 02/20/2024 07:03:19
--- NOTE | 2024-02-20 06:46 | XR_ITS ---
FINAL REPORT CLINICAL HISTORY: Shortness of breath, hx CHF COMPARISON: 11/10/2023 FINDINGS: No acute pulmonary opacity is present. There is no evidence of effusion or pneumothorax. Mediastinum is unremarkable. Heart size is enlarged. IMPRESSION: No acute abnormality. Reviewed, Interpreted and Dictated by Carlos Lares MD Transcribed by Mariann Hayes Authenticated and [facility]
--- NOTE | 2024-02-20 06:47 | ED_ITS ---
Discharge Plan Disposition Patient Disposition: Admitted Clinical Impressions Clinical Impression: Acute exacerbation of CHF (congestive heart failure), Hypertensive emergency, Acute hypoxemic respiratory failure, Hyperkalemia Discharge ED Provider: Maryam Quiros HPI <Maryam Quiros MD - Last Filed: 02/20/24 06:57> General Chief Complaint: Shortness of Breath/Dyspnea Stated Complaint: Dyspnea Time Seen by Provider: 02/20/24 06:42 History of Present Illness HPI narrative: Patient is a an 83-year-old female with past medical history hypertension, CHF not on home oxygen presenting with shortness of breath. Patient states that she normally wears a CPAP at night and did wear it this evening but was feeling shortness of breath, got up to walk to the bathroom which exacerbated her shortness of breath prompting her to call EMS. They do note that she had an oxygen saturation in the 70s on room air on their arrival and they placed patient on supplemental oxygen and on 4 L. Patient does note improvement in her symptoms since onset after oxygen. Denies any fevers or chills, chest pain, abdominal pain. Related Data Home Medications Medication Instructions Recorded Confirmed celecoxib 200 mg capsule 200 mg PO DAILY Pain 03/06/18 11/10/23 lisinopril 20 mg tablet 20 mg PO DAILY High Blood Pressure 03/06/18 11/10/23 metformin 500 mg tablet 500 mg PO BIDWMEAL Diabetes 03/06/18 11/10/23 montelukast 10 mg tablet 10 mg PO PM Allergy Symptoms 03/06/18 11/10/23 pregabalin 75 mg capsule (Lyrica) 75 mg PO BID Pain 03/06/18 11/10/23 simvastatin 20 mg tablet 20 mg PO HS Cholesterol 03/06/18 11/10/23 spironolactone 50 mg tablet 50 mg PO DAILY Fluid 05/03/21 11/10/23 azelastine 137 mcg (0.1 %) nasal 2 spray intranasal BID Allergy 11/10/23 11/10/23 spray aerosol Symptoms escitalopram oxalate 20 mg tablet 20 mg PO DAILY Mood 11/10/23 11/10/23 esomeprazole magnesium 40 mg 40 mg PO DAILY Acid Reflux 11/10/23 11/10/23 capsule,delayed release fluticasone 250 mcg-salmeterol 50 1 ea inhalation BID Breathing 11/10/23 11/10/23 mcg/dose blistr powdr for Problems inhalation (Wixela Inhub) oxybutynin chloride 10 mg 20 mg PO DAILY 11/10/23 11/10/23 tablet,extended release 24 hr tizanidine 4 mg capsule 4 mg PO HSP PRN muscle spasticity 11/10/23 11/10/23 mv-mn-folic 200 mcg-vit K 15 1 cap PO BID 11/11/23 11/11/23 mcg-lutein 5 mg-zeaxanthin 1 mg capsule (PreserVision AREDS 2 Plus Multivit) Allergies Allergy/AdvReac Type Severity Reaction Status Date / Time pollen extracts Allergy Intermediate ASTHMA Verified 11/10/23 10:41 [POLLEN EXTRACTS] [facility] <Maryam Quiros MD - Last Filed: 02/20/24 06:57> [facility] Disclaimer: The information contained in this section may have been updated after the patient was seen, as this information can be updated by other users. 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 History of arthroplasty of right knee History of appendectomy Family History (Updated 11/11/23 @ 09:30 by Vero Harris APRN) Other Heart attack Social History Smoking Status: Never smoker alcohol intake: never substance use type: denies use current occupational status: other Travel in the last 8 weeks: None household members: none caffeine: Yes <Maryam Quiros MD - Last Filed: 02/20/24 06:57> ROS Obtained: Yes Systems reviewed as appropriate & no additional complaints except as documented Physical Exam <Maryam Quiros MD - Last Filed: 02/20/24 06:57> General General appearance: alert and in no apparent distress Chest Chest inspection: Present normal inspection and symmetric chest wall rise Respiratory Respiratory exam: Present respiratory distress and other (Diffuse crackles and some scattered wheezes bilaterally, on 4 L nasal cannula ) Cardiovascular Cardiovascular exam: Present regular rate, normal rhythm and bradycardia Abdominal Exam Abdominal exam: Present soft and other (Umbilical hernia that is easily reducible); Absent tenderness Extremities Exam Extremities exam: Present other (Chronic venous stasis of bilateral lower extremities, no significant pedal edema, left lower 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) Neurological Exam Neurological exam: Present alert and oriented X3 Skin Skin exam: Present warm and dry HEART Score <Maryam Quiros MD - Last Filed: 02/20/24 06:57> HEART Score HEART Score assessment performed?: Yes History (anamnesis): Slightly suspicious ECG: Non-specific disturbance Age: >65 years Risk factors: 1-2 risk factors <Claudia Henderson DO - Last Filed: 02/20/24 07:56> HEART Score Troponin: </= normal limit HEART Score: 4 Critical Care <Maryam Quiros MD - Last Filed: 02/20/24 06:57> Critical Care Time Critical Care Time: No Medical Decision Making <Maryam Quiros MD - Last Filed: 02/20/24 06:57> Medical Records Medical records reviewed: Yes I reviewed the patient's medical records. Gabriele Inquiry Pt receiving controlled substance: No Vital Signs Vital Signs: 02/20/24 06:39 02/20/24 07:00 02/20/24 07:00 Temperature 97.8 F Temperature Source Oral Pulse Rate 50 L 54 L Pulse Rate [Left Radial] 56 L Respiratory Rate 19 Blood Pressure Blood Pressure [Right Arm] 194/97 H Blood Pressure Mean Blood Pressure Mean [Right Arm] 129 Blood Pressure Source [Right Arm] Automatic Cuff Blood Pressure Position [Right Arm] Sitting 02 Sat by Pulse Oximetry 91 L Oxygen Delivery Method Nasal Cannula Oxygen Flow Rate (LPM) 4 02/20/24 07:14 02/20/24 07:42 Temperature Temperature Source Pulse Rate 79 60 Pulse Rate [Left Radial] Respiratory Rate 20 17 Blood Pressure 196/83 H 152/86 H Blood Pressure [Right Arm] Blood Pressure Mean 110 Blood Pressure Mean [Right Arm] Blood Pressure Source [Right Arm] Blood Pressure Position [Right Arm] 02 Sat by Pulse Oximetry 100 96 Oxygen Delivery Method Nasal Cannula Nasal Cannula Oxygen Flow Rate (LPM) 4 Lab Data Labs: Lab Results 02/20/24 06:43: WBC 9.0, RBC 4.94, Hgb 12.1 L, Hct 39.4, MCV 79.7 L, MCH 24.4 L, MCHC 30.6 L, RDW 17.9 H, Plt Count 180, MPV 9.8, Neut % (Auto) 79.4, Lymph % (Auto) 14.2, [place] % (Auto) 4.5, Eos % (Auto) 1.2, Baso % (Auto) 0.7, Neut # (Auto) 7.2, Lymph # (Auto) 1.3, [place] # (Auto) 0.4, Eos # (Auto) 0.1, Baso # (Auto) 0.1, Sodium 140, Potassium 5.4 H, Chloride 102, Carbon Dioxide 29, Anion Gap 14.4, BUN 24 H, Creatinine 0.90, Estimated Creat Clear 63, Estimated GFR 60, Est GFR ( Amer) 72, Glucose 151 H, Calcium 9.7, Total Bilirubin 1.1, AST 76 H, ALT 37, Alkaline Phosphatase 67, Troponin I < 0.01, NT-Pro-B Natriuret Pep 5080 H, Total Protein 8.5 H, Albumin 4.5, Globulin 4.0 H, Albumin/Globulin Ratio 1.1 02/20/24 06:43 02/20/24 06:43 Response Orders (Tests/Meds): ED MEDICATIONS Generic Name Dose Route Start Last Admin Trade Name Freq PRN Reason Stop Dose Admin Nitroglycerin 0.4 mg 02/20/24 07:36 Nitroglycerin 0.4mg Sl Tablet SL 03/21/24 07:35 Q5MINP PRN Chest Pain Sodium Chloride 10 ml 02/20/24 06:45 Sodium Chloride 0.9% 10ml Flush Syringe IV 03/21/24 06:44 NEEDED PRN Maintain IV Site Discontinued Medications Generic Name Dose Route Start Last Admin Trade Name Freq PRN Reason Stop Dose Admin Albuterol/Ipratropium 3 ml 02/20/24 06:49 02/20/24 06:59 Ipratropium/Albuterol 3 Ml Neb IH 02/20/24 06:50 3 ml ONCE ONE Administration Furosemide 40 mg 02/20/24 06:45 02/20/24 07:10 Furosemide 40mg/4ml Vial IV 02/20/24 06:46 40 mg ONCE ONE Administration ORDERS Category Date Time Status XR chest portable Stat Exams 02/20/24 06:46 Taken Complete Blood Count Auto Diff Stat Lab 02/20/24 06:43 Completed Comprehensive Metabolic Panel Stat Lab 02/20/24 06:43 Completed NT Pro Brain Natriuretic Pep. Stat Lab 02/20/24 06:43 Completed Troponin I Q3H Lab 02/20/24 10:00 Ordered Troponin I Q3H Lab 02/20/24 13:00 Ordered Troponin I Stat Lab 02/20/24 06:43 Completed ECG Data Tracing #1: Attestation: I reviewed this ECG and interpreted as documented below: ECG Narrative: EKG without acute ischemia or infarction but does show bradycardia at a rate of 55 with normal QRS and QTc, does have an occasional ectopic beat ECG initial impression date: 02/20/24 ECG initial impression time: 06:46 MDM Narrative Medical Decision Narrative: Patient is an 83-year-old female with past medical history CHF and hypertension presenting with shortness of breath. She does wear CPAP at night and had worsening shortness of breath especially exacerbated after exertion with subsequent hypoxia in the 70s on EMS arrival requiring 4 L nasal cannula. She is otherwise hemodynamically stable though hypertensive initially for EMS in the 210s p.o. on arrival 195, already proving but will continue to monitor. She does continue to require 4 L nasal cannula and has some crackles and diffuse wheezing bilaterally. Will provide DuoNeb and obtain blood work for further evaluation. EKG without acute ischemia or infarction but does show occasional ectopic beat. Rest of workup pending at time of signout and care of patient transition to oncoming physician Dr. Henderson. <Claudia Henderson, - Last Filed: 02/20/24 07:56> Vital Signs Vital Signs: 02/20/24 06:39 02/20/24 07:00 02/20/24 07:00 Temperature 97.8 F Temperature Source Oral Pulse Rate 50 L 54 L Pulse Rate [Left Radial] 56 L Respiratory Rate 19 Blood Pressure Blood Pressure [Right Arm] 194/97 H Blood Pressure Mean Blood Pressure Mean [Right Arm] 129 Blood Pressure Source [Right Arm] Automatic Cuff Blood Pressure Position [Right Arm] Sitting 02 Sat by Pulse Oximetry 91 L Oxygen Delivery Method Nasal Cannula Oxygen Flow Rate (LPM) 4 02/20/24 07:14 02/20/24 07:42 Temperature Temperature Source Pulse Rate 79 60 Pulse Rate [Left Radial] Respiratory Rate 20 17 Blood Pressure 196/83 H 152/86 H Blood Pressure [Right Arm] Blood Pressure Mean 110 Blood Pressure Mean [Right Arm] Blood Pressure Source [Right Arm] Blood Pressure Position [Right Arm] 02 Sat by Pulse Oximetry 100 96 Oxygen Delivery Method Nasal Cannula Nasal Cannula Oxygen Flow Rate (LPM) 4 Lab Data Labs: Lab Results 02/20/24 06:43: WBC 9.0, RBC 4.94, Hgb 12.1 L, Hct 39.4, MCV 79.7 L, MCH 24.4 L, MCHC 30.6 L, RDW 17.9 H, Plt Count 180, MPV 9.8, Neut % (Auto) 79.4, Lymph % (Auto) 14.2, [place] % (Auto) 4.5, Eos % (Auto) 1.2, Baso % (Auto) 0.7, Neut # (Auto) 7.2, Lymph # (Auto) 1.3, [place] # (Auto) 0.4, Eos # (Auto) 0.1, Baso # (Auto) 0.1, Sodium 140, Potassium 5.4 H, Chloride 102, Carbon Dioxide 29, Anion Gap 14.4, BUN 24 H, Creatinine 0.90, Estimated Creat Clear 63, Estimated GFR 60, Est GFR ( Amer) 72, Glucose 151 H, Calcium 9.7, Total Bilirubin 1.1, AST 76 H, ALT 37, Alkaline Phosphatase 67, Troponin I < 0.01, NT-Pro-B Natriuret Pep 5080 H, Total Protein 8.5 H, Albumin 4.5, Globulin 4.0 H, Albumin/Globulin Ratio 1.1 Response Orders (Tests/Meds): ED MEDICATIONS Generic Name Dose Route Start Last Admin Trade Name Freq PRN Reason Stop Dose Admin Nitroglycerin 0.4 mg 02/20/24 07:36 Nitroglycerin 0.4mg Sl Tablet SL 03/21/24 07:35 Q5MINP PRN Chest Pain Sodium Chloride 10 ml 02/20/24 06:45 Sodium Chloride 0.9% 10ml Flush Syringe IV 03/21/24 06:44 NEEDED PRN Maintain IV Site Discontinued Medications Generic Name Dose Route Start Last Admin Trade Name Freq PRN Reason Stop Dose Admin Albuterol/Ipratropium 3 ml 02/20/24 06:49 02/20/24 06:59 Ipratropium/Albuterol 3 Ml Neb IH 02/20/24 06:50 3 ml ONCE ONE Administration Furosemide 40 mg 02/20/24 06:45 02/20/24 07:10 Furosemide 40mg/4ml Vial IV 02/20/24 06:46 40 mg ONCE ONE Administration ORDERS Category Date Time Status XR chest portable Stat Exams 02/20/24 06:46 Taken Complete Blood Count Auto Diff Stat Lab 02/20/24 06:43 Completed Comprehensive Metabolic Panel Stat Lab 02/20/24 06:43 Completed NT Pro Brain Natriuretic Pep. Stat Lab 02/20/24 06:43 Completed Troponin I Q3H Lab 02/20/24 10:00 Ordered Troponin I Q3H Lab 02/20/24 13:00 Ordered Troponin I Stat Lab 02/20/24 06:43 Completed MDM Narrative Medical Decision Narrative: Patient is an 83-year-old female with past medical history CHF and hypertension presenting with shortness of breath. She does wear CPAP at night and had worsening shortness of breath especially exacerbated after exertion with subsequent hypoxia in the 70s on EMS arrival requiring 4 L nasal cannula. She is otherwise hemodynamically stable though hypertensive initially for EMS in the 210s p.o. on arrival 195, already proving but will continue to monitor. She does continue to require 4 L nasal cannula and has some crackles and diffuse wheezing bilaterally. Will provide DuoNeb and obtain blood work for further evaluation. EKG without acute ischemia or infarction but does show occasional ectopic beat. Rest of workup pending at time of signout and care of patient transition to oncoming physician Dr. Henderson. Santiago, DO: On reassessment, patient continues to require supplemental oxygen though her exam is reassuring with no significantly increased work of breathing. I independently turbid x-ray prior to radiology read and noted that the patient has bilateral pulmonary edema. This coupled with lower extremity edema and exam is concerning for CHF exacerbation with respiratory failure. Patient already received Lasix from other provider. Her blood pressures in the 190s to low 200s systolic, so she was given nitroglycerin from me. At this time, I feel she would benefit from admission. I called and had an interactive discussion with her primary care provider, Dr. Adamson, who agreed and admitted the patient for further evaluation and management.
--- NOTE | 2024-02-20 06:57 | PC.NURSE ---
Iv attempted X 3 times. Blood work sent but no IV access at this time.
[2024-02-20 06:59] LABS: Basophils # 0.1 K/mm3 (0-0.2); Basophils % 0.7 % (0.1-2.0); Eosinophils # 0.1 K/mm3 (0.0-0.4); Eosinophils % 1.2 % (0.1-12.0); Hematocrit 39.4 % (37.0-47.0); Hemoglobin 12.1 g/dL (12.2-16.2); Lymphocytes # 1.3 K/mm3 (0.7-4.5); Lymphocytes % 14.2 % (10-50); Mean Corpuscular HGB Conc 30.6 g/dL (31.8-35.4); Mean Corpuscular Hemoglobin 24.4 pg (27.0-31.2); Mean Corpuscular Volume 79.7 fl (81-99); Mean Platelet Volume 9.8 fl (7.4-10.4); Monocytes # 0.4 K/mm3 (0.1-1.0); Monocytes % 4.5 % (1.7-9.3); Neutrophils # 7.2 K/mm3 (1.8-7.8); Neutrophils % 79.4 % (37.0-80.0); Platelet Count 180 K/mm3 (142-424); Red Blood Count 4.94 M/mm3 (4.20-5.40); Red Cell Distribution Width 17.9 % (11.5-17.5)
[2024-02-20] MEDS: IPRATROPIUM/ALBUTEROL 3 ML NEB IH (06:59)
[2024-02-20 07:00] LABS: Chloride 102 mmol/L (98-107); Potassium 5.4 mmoL/L (3.5-5.1); Sodium 140 mmol/L (136-145)
[2024-02-20 07:02] LABS: Blood Urea Nitrogen 24 mg/dl (7-17); Creatinine Clearance Estimated 63 mL/min (50-200); Estimated Glomerular Filt Rate 60 ml/min (>60); GFR (African American) 72 ML/MIN (>60)
[2024-02-20 07:03] LABS: Alanine Aminotransferase 37 U/L (12-78); Albumin Level 4.5 g/dl (3.5-5.0); Albumin/Globulin Ratio 1.1 (1.1-1.8); Alkaline Phosphatase 67 U/L (38-126); Anion Gap 14.4 mEq/L (5-15); Aspartate Amino Transferase 76 U/L (14-36); Bilirubin,Total 1.1 mg/dl (0.2-1.3); Calcium 9.7 mg/dl (8.4-10.2); Carbon Dioxide 29 mmol/L (22.0-30.0); Glucose 151 mg/dl (74-100); Total Protein,Serum 8.5 g/dl (6.3-8.2)
[2024-02-20] MEDS: FUROSEMIDE 40MG/4ML VIAL 40 MG IV ×2 (07:10→17:35)
[2024-02-20 07:12] LABS: NT Pro Brain Natriuretic Pep. 5080 pg/mL (0-450)
--- NOTE | 2024-02-20 07:22 | PC.NURSE ---
introduced self to pt. provided with warm blanket. family arrived and updated on plan of care. no questions or concerns voiced. call light within reach
--- NOTE | 2024-02-20 07:36 | PC.NURSE ---
dr heller notified
[2024-02-20 07:38] LABS: Troponin I < 0.01 ng/ml (0.00-0.034)
--- NOTE | 2024-02-20 07:42 | PC.NURSE ---
purewick was placed on pt at this time
--- NOTE | 2024-02-20 07:43 | PC.NURSE ---
DR LOJA IS SPEAKING TO DR KLEIN AT THIS TIME.
--- NOTE | 2024-02-20 07:43 | PC.NURSE ---
dr jackson speaking with dr heller
--- NOTE | 2024-02-20 07:45 | PC.NURSE ---
HOUSE AWARE OF ADMISSION
--- NOTE | 2024-02-20 07:47 | PC.NURSE ---
dr heller accepted pt for admission
--- NOTE | 2024-02-20 07:51 | PC.NURSE ---
PT WAS ON 4L NC TURNED DOWN TO 2L NC TOLERATING WELL. O2 NOTED ABOVE 90.
--- NOTE | 2024-02-20 08:09 | EXP.HP ---
History of Present Illness *Admission Date: 02/20/24 *Reason for visit:: SOA *History of present illness: Patient is a an 83-year-old female with past medical history hypertension, CHF not on home oxygen presenting with shortness of breath. Patient states that she normally wears a CPAP at night and did wear it this evening but was feeling shortness of breath, got up to walk to the bathroom which exacerbated her shortness of breath prompting her to call EMS. They do note that she had an oxygen saturation in the 70s on room air on their arrival and they placed patient on supplemental oxygen and on 4 L. Patient does note improvement in her symptoms since onset after oxygen. Denies any fevers or chills, chest pain, abdominal pain. (above as per ER physician) She was evaluated in the ER and her BNP was elevated. CXR showed pulmonary edema. She was given lasix. Her BP was elevated and she was given nitro. She was placed on oxygen and admitted for futher evaluation and treatment. [facility] Disclaimer: The information contained in this section may have been updated after the patient was seen, as this information can be updated by other users. 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 History of arthroplasty of right knee History of appendectomy Family History Heart attack Social History (Updated 02/20/24 @ 10:28 by Minerva Lopez RN) Smoking Status: Never smoker alcohol intake: never substance use type: denies use current occupational status: other Travel in the last 8 weeks: None household members: none caffeine: Yes Review of Systems Constitutional Constitutional: Denies body ache(s), Denies chills, Reports fatigue, Reports headache(s), Reports poor appetite and Reports weakness Eyes Eyes: Denies blurry vision and Denies diplopia ENT Ears, Nose, Mouth, and Throat: Reports headache(s), Denies nasal congestion, Denies sore throat and Denies vertigo *Cardiovascular Cardiovascular: Denies chest pain, Reports dyspnea and Reports leg edema *Respiratory Respiratory: Denies cough, Reports dyspnea and Reports wheezing *Gastrointestinal Gastrointestinal: Denies abdominal pain, Denies loose stools, Denies nausea and Denies vomiting *Genitourinary Genitourinary: Denies difficulty voiding and Denies dysuria *Musculoskeletal Musculoskeletal: Denies myalgias *Neurologic Neurologic: Reports headache(s), Denies vertigo and Reports weakness Endocrine Endocrine: Reports fatigue Allergic/Immunologic Allergic/Immunologic: Reports wheezing Meds Home Medications and Allergies Home Medications Medication Instructions Recorded Confirmed Type celecoxib 200 mg capsule 200 mg PO DAILY 03/06/18 02/20/24 History lisinopril 20 mg tablet 20 mg PO DAILY 03/06/18 02/20/24 History metformin 500 mg tablet 500 mg PO BIDWMEAL 03/06/18 02/20/24 History montelukast 10 mg tablet 10 mg PO PM 03/06/18 02/20/24 History pregabalin 75 mg capsule (Lyrica) 75 mg PO BID 03/06/18 02/20/24 History simvastatin 20 mg tablet 20 mg PO HS 03/06/18 02/20/24 History escitalopram oxalate 20 mg tablet 20 mg PO DAILY 11/10/23 02/20/24 History fluticasone 250 mcg-salmeterol 50 1 ea inhalation BID 11/10/23 02/20/24 History mcg/dose blistr powdr for inhalation (Korinaela Inhub) oxybutynin chloride 10 mg 20 mg PO DAILY 11/10/23 02/20/24 History tablet,extended release 24 hr tizanidine 4 mg capsule 4 mg PO HSP PRN muscle spasticity 11/10/23 02/20/24 History mv-mn-folic 200 mcg-vit K 15 1 cap PO BID 11/11/23 02/20/24 History mcg-lutein 5 mg-zeaxanthin 1 mg capsule (PreserVision AREDS 2 Plus Multivit) amlodipine 5 mg tablet 5 mg PO DAILY 02/20/24 02/20/24 History magnesium oxide 400 mg (241.3 mg 400 mg PO DAILY 02/20/24 02/20/24 History magnesium) tablet metoprolol succinate 50 mg 50 mg PO DAILY 02/20/24 02/20/24 History tablet,extended release 24 hr New Prescriptions to Start Prescriptions: Allergies Allergy/AdvReac Type Severity Reaction Status Date / Time pollen extracts Allergy Intermediate ASTHMA Verified 11/10/23 10:41 [POLLEN EXTRACTS] Exam Data for Last 24 hours Vital signs and Labs for Last 24 Hours: Temp Pulse Resp BP Pulse Ox O2 Del Method O2 Flow Rate 97.8 F 60 17 152/86 H 96 Nasal Cannula 4 02/20/24 06:39 02/20/24 07:42 02/20/24 07:42 02/20/24 07:42 02/20/24 07:42 02/20/24 07:42 02/20/24 07:14 Laboratory Results - last 24 hr 02/20/24 06:43: WBC 9.0, RBC 4.94, Hgb 12.1 L, Hct 39.4, MCV 79.7 L, MCH 24.4 L, MCHC 30.6 L, RDW 17.9 H, Plt Count 180, MPV 9.8, Neut % (Auto) 79.4, Lymph % (Auto) 14.2, [place] % (Auto) 4.5, Eos % (Auto) 1.2, Baso % (Auto) 0.7, Neut # (Auto) 7.2, Lymph # (Auto) 1.3, [place] # (Auto) 0.4, Eos # (Auto) 0.1, Baso # (Auto) 0.1, Sodium 140, Potassium 5.4 H, Chloride 102, Carbon Dioxide 29, Anion Gap 14.4, BUN 24 H, Creatinine 0.90, Estimated Creat Clear 63, Estimated GFR 60, Est GFR ( Amer) 72, Glucose 151 H, Calcium 9.7, Total Bilirubin 1.1, AST 76 H, ALT 37, Alkaline Phosphatase 67, Troponin I < 0.01, NT-Pro-B Natriuret Pep 5080 H, Total Protein 8.5 H, Albumin 4.5, Globulin 4.0 H, Albumin/Globulin Ratio 1.1 I & O for Last 24 hours: Intake & Output 02/17/24 02/18/24 02/19/24 02/20/24 11:59 11:59 11:59 11:59 Weight 214 lb Constitutional Constitutional: no acute distress *Routine HEENT Exam Head: Present normocephalic and atraumatic Eye: Present EOMI and PERRL ENT: Present mucous membranes moist *Routine Neck Exam Neck: Present supple and full ROM *Routine Respiratory Exam Respiratory: Present decreased breath sounds and wheezes *Routine Cardiovascular Exam Cardiovascular: Present RRR *Routine Abdominal Exam Abdominal: Present soft and normoactive bowel sounds; Absent tenderness *Routine Rectal Exam Rectal:: deferred *Routine Genitalia Exam Genitalia:: deferred *Routine Extremities Exam Extremities: Present edema (bilateral LE's); Absent cyanosis or clubbing *Routine Skin Exam Skin: Present intact; Absent erythema *Routine Neurological Exam Neurological: Present alert and oriented X3 H&P: Result Impressions CXR - nothing acute Assessment and Plan *Assessment and plan (1) Acute hypoxemic respiratory failure: Status: Acute Category: Medical Code(s): J96.01 - Acute respiratory failure with hypoxia (2) Acute exacerbation of CHF (congestive heart failure): Status: Acute Category: Medical Code(s): I50.9 - Heart failure, unspecified (3) Hyperkalemia: Status: Acute Category: Medical Code(s): E87.5 - Hyperkalemia (4) Hypertensive emergency: Status: Acute Category: Medical Code(s): I16.1 - Hypertensive emergency (5) Elevated brain natriuretic peptide (BNP) level: Status: Acute Category: Medical Code(s): R79.89 - Other specified abnormal findings of blood chemistry (6) Diabetes: Status: Acute Category: Medical Code(s): E11.9 - Type 2 diabetes mellitus without complications (7) Hypertension: Status: Acute Category: Medical Code(s): I10 - Essential (primary) hypertension (8) Neuropathy: Status: Acute Category: Medical Code(s): G62.9 - Polyneuropathy, unspecified (9) Depression: Status: Acute Category: Medical Code(s): F32.A - Depression, unspecified (10) GERD (gastroesophageal reflux disease): Status: Acute Category: Medical Code(s): K21.9 - Gastro-esophageal reflux disease without esophagitis (11) Hyperlipidemia: Status: Acute Category: Medical Code(s): E78.5 - Hyperlipidemia, unspecified (12) Asthma: Status: Acute Category: Medical Code(s): J45.909 - Unspecified asthma, uncomplicated Plan Patient was given lasix and nitro and started on duonebs for wheezing. CXR was normal. Will get an Echo.
--- NOTE | 2024-02-20 08:10 | PC.NURSE ---
CALLED REPORT TO SUDHIR LARSON
--- NOTE | 2024-02-20 08:10 | PC.NURSE ---
report received from Kristopher
--- NOTE | 2024-02-20 08:20 | PC.NURSE ---
DR KLEIN AT BEDSIDE
--- NOTE | 2024-02-20 08:25 | HMH.PHAINT1 ---
Pharmacy Intervention Comments: MEDICATION RECONCILIATION COMPLETED ON PATIENT USING EXTERNAL FILL HISTORY FROM PHARMACY. -NICKY CAMP, JAMESOND
--- NOTE | 2024-02-20 08:25 | PC.NURSE ---
DR KLEIN AT BEDSIDE
--- NOTE | 2024-02-20 09:00 | CA_ITS ---
APPROVED REPORT EXAM: Comprehensive 2D, Doppler, and color-flow Echocardiogram Traffic Routing Engineer: India Worthy CRT Ht: 5 ft 5 in Wt: 214lbs BSA: 2.04 BP: 152/86 mmHg Indications: Congestive Heart Failure, Shortness of Breath, Diabetes, Hyperlipidemia, Hypertension/HDD 2D Dimensions LA Volume 48.70 mL LA Volume Index 23.30 mL/m2 (M/F) 16-34 M-Mode Dimensions RVDd 3.13 cm (0.9-2.6) LA Diam 3.85 cm (1.9-4.0) LVDd 3.65 cm (3.5-5.7) LVDs 2.53 cm (3.5-5.7) IVSd 1.93 cm (0.6-1.1) PWd 1.81 cm (0.6-1.1) EF (Teich) 59.10% FS 30.70% EDV (Teich) 56.30 mL TAPSE 2.75 (<1.7) ESV (Teich) 23.00 mL LV Diastology E Decel Time 172 (160-240 msec) E/A Ratio 0.51 MED A' 7.90 cm/s LAT A' 9.70 cm/s Aortic Valve AO Peak GR. 9.60 mmHg Mitral Valve MV E Max Mustapha. 61.0 (40-130 cm/s) MV A Velocity 121.0 (40-130 cm/s) E/A Ratio 0.51 MV PHT 50.0 ms Pulmonary Valve PV Peak Velocity 155.0 (50-150 cm/s) Tricuspid Valve TR P. Velocity 125.00 cm/s RAP Estimate 10.00 mmHg RVSP 16.20 mmHg Left Ventricle The left ventricle is normal size. The left ventricular systolic function is normal. The left ventricular ejection fraction is within the normal range. There is increased LV wall thickness. There is normal LV segmental wall motion. Transmitral Doppler flow pattern suggests impaired LV relaxation. LVEF is 55%. Right Ventricle Right ventricle is mildly dilated. The right ventricular systolic function is normal. Atria The left atrium size is normal. The right atrium size is normal. There is no Doppler evidence of interatrial shunt. Aortic Valve The aortic valve is mildly thickened. There is no aortic valvular stenosis. No aortic regurgitation is present. Mitral Valve The mitral valve is normal in structure. No evidence of mitral valve stenosis. Trace mitral regurgitation. Tricuspid Valve The tricuspid valve leaflets are thin and pliable. Trace tricuspid regurgitation. There is insufficient TR jet to estimate RVSP. Pulmonic Valve The pulmonary valve is normal in structure. Trace pulmonic regurgitation. Great Vessels The aortic root is normal in size. The ascending aorta is normal in size. IVC is normal in size and collapses >50% with inspiration. Pericardium There is no pericardial effusion. Other Information Study Quality: Technically Difficult Conclusion Technically difficult study due to poor acoustic windows. Normal biventricular systolic function. Mild RV dilation. No significant valvular stenosis or regurgitation. Electronically signed by : Erica Romero MD 02/23/2024 21:52:17
[2024-02-20] MEDS: CITALOPRAM 40MG TABLET 40 MG PO (09:48)
[2024-02-20] MEDS: IRBESARTAN 300MG TABLET 300 MG PO (09:48)
[2024-02-20 11:03] LABS: Troponin I < 0.01 ng/ml (0.00-0.034)
[2024-02-20 11:09] LABS: POC Glucose,Bedside 176 (70-110)
--- NOTE | 2024-02-20 11:42 | PC.NURSE ---
PATIENTS ROOM AIR OXYGEN SATURATION IS AT 79% AT REST. NURSE NOTIFIED AND PATIENT WAS PLACED BACK ON 2L NASAL CANNULA. CALL LIGHT IS WITHIN REACH NO REQUESTS VOICED AT THIS TIME.
--- NOTE | 2024-02-20 12:55 | EXP.ACUTE.PN ---
Subjective *Date: 02/20/24 *Time: 12:55 Interval history: Saw patient in the ER this morning. She had SOB overnight and BP was elevated. Saw patient in the office yesterday for elevated BP and made medication changes. Patient has a history of hypoxic respiratory failure. Uses supplemental oxygen at night. Medical Exam Vital signs and Labs for Last 24 Hours: Vital Signs Temp Pulse Pulse Resp BP BP Pulse Ox 02/20/24 12:48 02/20/24 12:00 98.3 F 61 18 158/74 H 94 L 02/20/24 11:41 79 L 02/20/24 11:00 02/20/24 10:44 02/20/24 09:05 97.8 F 58 L 18 113/94 H 94 L 02/20/24 09:00 02/20/24 08:11 98.3 F 56 L 22 205/87 H 02/20/24 08:01 56 L 22 205/87 H 93 L 02/20/24 07:42 60 17 152/86 H 96 02/20/24 07:14 79 20 196/83 H 100 02/20/24 07:00 54 L 02/20/24 07:00 50 L 02/20/24 06:39 97.8 F 56 L 19 194/97 H 91 L O2 Del Method O2 Flow Rate 02/20/24 12:48 Nasal Cannula 2 02/20/24 12:00 Nasal Cannula 2 02/20/24 11:41 Room Air 02/20/24 11:00 Nasal Cannula 2 02/20/24 10:44 Nasal Cannula 2 02/20/24 09:05 Room Air 02/20/24 09:00 Nasal Cannula 2 02/20/24 08:11 Nasal Cannula 2 02/20/24 08:01 Nasal Cannula 2 02/20/24 07:42 Nasal Cannula 02/20/24 07:14 Nasal Cannula 4 02/20/24 07:00 02/20/24 07:00 02/20/24 06:39 Nasal Cannula 4 Intake and Output 02/19/24 02/20/24 02/20/24 23:59 07:59 15:59 Intake Total 350 / 350 Output Total 1150 / 1150 Balance -800 / -800 Intake: Intake, Oral Amount 350 / 350 Output: Output, Urine Amount 1150 / 1150 Other: Number of Unmeasured Voids 1 Weight 214 lb 211 lb 4 oz Patient Weight 02/20/24 23:59 Weight 211 lb 4 oz Laboratory Results - last 24 hr 02/20/24 06:43: WBC 9.0, RBC 4.94, Hgb 12.1 L, Hct 39.4, MCV 79.7 L, MCH 24.4 L, MCHC 30.6 L, RDW 17.9 H, Plt Count 180, MPV 9.8, Neut % (Auto) 79.4, Lymph % (Auto) 14.2, Custer % (Auto) 4.5, Eos % (Auto) 1.2, Baso % (Auto) 0.7, Neut # (Auto) 7.2, Lymph # (Auto) 1.3, Custer # (Auto) 0.4, Eos # (Auto) 0.1, Baso # (Auto) 0.1, Sodium 140, Potassium 5.4 H, Chloride 102, Carbon Dioxide 29, Anion Gap 14.4, BUN 24 H, Creatinine 0.90, Estimated Creat Clear 63, Estimated GFR 60, Est GFR ( Amer) 72, Glucose 151 H, Calcium 9.7, Total Bilirubin 1.1, AST 76 H, ALT 37, Alkaline Phosphatase 67, Troponin I < 0.01, NT-Pro-B Natriuret Pep 5080 H, Total Protein 8.5 H, Albumin 4.5, Globulin 4.0 H, Albumin/Globulin Ratio 1.1 02/20/24 10:15: Troponin I < 0.01 02/20/24 11:01: POC Glucose 176 H I & O for Labs for Last 24 Hours: Intake & Output 02/17/24 02/18/24 02/19/24 02/20/24 23:59 23:59 23:59 23:59 Intake Total 350 / 350 Output Total 1150 / 1150 Balance -800 / -800 Weight 211 lb 4 oz Constitutional: Present no acute distress Respiratory: Present crackles and normal respiratory effort Cardiac: Present Reg Rate and Rhythm GI: Present normal bowel sounds; Absent tenderness Extremities: Present normal inspection and edema Comment:: post surgical changes noted at ankle Skin: Present intact; Absent erythema Neuro: Present Grossly Intact and moves all extremities Assessment and Plan *Assessment and plan (1) Acute hypoxemic respiratory failure: Status: Acute Category: Medical Code(s): J96.01 - Acute respiratory failure with hypoxia (2) Hypertensive emergency: Status: Acute Category: Medical Code(s): I16.1 - Hypertensive emergency (3) Elevated brain natriuretic peptide (BNP) level: Status: Acute Category: Medical Code(s): R79.89 - Other specified abnormal findings of blood chemistry (4) Diabetes: Status: Acute Category: Medical Code(s): E11.9 - Type 2 diabetes mellitus without complications (5) Neuropathy: Status: Acute Category: Medical Code(s): G62.9 - Polyneuropathy, unspecified (6) Depression: Status: Acute Category: Medical Code(s): F32.A - Depression, unspecified (7) GERD (gastroesophageal reflux disease): Status: Acute Category: Medical Code(s): K21.9 - Gastro-esophageal reflux disease without esophagitis (8) Hyperlipidemia: Status: Acute Category: Medical Code(s): E78.5 - Hyperlipidemia, unspecified (9) Sleep apnea: Status: Acute Category: Medical Code(s): G47.30 - Sleep apnea, unspecified Plan Admit for diuresis, echo and BP control, see orders.
[2024-02-20 13:53] LABS: Troponin I < 0.01 ng/ml (0.00-0.034)
[2024-02-20] MEDS: MONTELUKAST SODIUM 10MG TAB 10 MG PO (17:37)
[2024-02-20] MEDS: METFORMIN 500MG TABLET 500 MG PO (17:37)
[2024-02-20 17:50] LABS: POC Glucose,Bedside 131 (70-110)
--- NOTE | 2024-02-20 18:42 | PC.NURSE ---
Pt has done well this shift. No c/o pain. Remains on 2L nasal cannula and is tolerating well. Purewick in place to monitor output from lasix. No c/o N/V/D. Call steel within reach.
[2024-02-20 20:42] LABS: POC Glucose,Bedside 129 (70-110)
[2024-02-20] MEDS: OXYBUTYNIN 5MG TAB 10 MG PO (20:52)
[2024-02-20] MEDS: PRAVASTATIN 40MG TAB 40 MG PO (20:52)
[2024-02-20] MEDS: PREGABALIN 25MG CAPSULE 75 MG PO (20:53)
[2024-02-21] VITALS (9 sets, daily range): BP systolic 121–183; BP diastolic 50–69; PULSE 50–88; RESP 15–18; TEMP 36.6–37; O2SAT 88–95; BMI 34.4
--- NOTE | 2024-02-21 05:15 | PC.NURSE ---
Addendum entered by Katie Koenig RN 02/21/24 05:27: Patient mouth breathes and slightly snores in her sleep. She also had some mild, audible expiratory wheezing. Original Note: At 0500, patient's oxygen saturation was dropping to the low 80s during her sleep. Patient's heart rate had also shown consistent bradycardia on telemetry. Patient was bumped to 4L and was awoken by me to take some deep breaths. Patient's oxygen saturation did not surpass 90, and dropped again once she drifted back to sleep. Respiratory was paged and arrived shortly after to the bedside. At this time, patient's oxygen saturation is 93.
[2024-02-21 05:44] LABS: POC Glucose,Bedside 109 (70-110)
--- NOTE | 2024-02-21 05:51 | PC.NURSE ---
Patient is alert and oriented x4. Patient is now currently on 4 L of oxygen. Her oxygen sats fluctuated in the low 80s to the low 90s during this shift. Respiratory has seen her during this shift (after 05:00). A continuous pulse ox was applied around the beginning of the shift. She had a small episode of excruitiating leg cramps at around 20:15 yesterday; I placed a pillow underneath each of her legs and applied ice packs to her thighs. Patient stated that she thinks her leg cramps were due to sitting in one spot for too long and reported relief of her spasms. She was happy with the elevation of her legs. Patient received her scheduled medications per OCT. Her IV is saline-locked. She did not have any other complaints about leg cramping during the shift. Patient rested very comfortably during the night. Upon auscultation, patient had some crackles present in the right lung, and diminished sounds in her left lung. She had slight expiratory wheezing; it is audible when she is asleep. Her heart rate has shown some bradycardia on telemetry during this shift. Patient has moderate edema in both of her calves and in her left ankle; her right arm had slight swelling as well. She has intact lesions underneath both of her knees, and her legs are dry and red. Patient has not had any complaints of nausea, other pain during this shift, as well as no complaints about shortness of air or dizziness. Patient's fingerstick reading at 21:00 was 129; at 05:30, the reading was 109. I emptied a total of 805mL of urine myself from her canister; her purewick is still in place and functioning. No acute changes were noted at this time. Patient is currently resting. Call light is within her reach.
--- NOTE | 2024-02-21 08:13 | EXP.ACUTE.PN ---
Subjective *Date: 02/21/24 *Time: 08:30 Interval history: Patient is feeling much better this am. She slept well and ate well. Her SOA has improved. She has had quite a bit of urine output. She denies any pain. Medical Exam Vital signs and Labs for Last 24 Hours: Vital Signs Temp Pulse Pulse Resp BP Pulse Ox O2 Del Method 02/21/24 07:39 98.3 F 53 L 15 183/67 H 94 L Nasal Cannula 02/21/24 06:59 Nasal Cannula 02/21/24 04:56 Nasal Cannula 02/21/24 04:00 50 L 02/21/24 04:00 98.1 F 56 L 16 148/63 H 94 L Nasal Cannula 02/21/24 02:47 Nasal Cannula 02/21/24 00:51 Nasal Cannula 02/21/24 00:00 50 L 02/21/24 00:00 98.4 F 62 16 134/69 92 L Nasal Cannula 02/20/24 23:00 Nasal Cannula 02/20/24 21:00 Nasal Cannula 02/20/24 20:00 70 02/20/24 20:00 62 18 92 L Nasal Cannula 02/20/24 20:00 98.6 F 62 18 158/80 H 92 L Nasal Cannula 02/20/24 18:50 Nasal Cannula 02/20/24 17:00 Nasal Cannula 02/20/24 16:00 98.4 F 59 L 22 156/68 H 94 L Nasal Cannula 02/20/24 16:00 50 L 02/20/24 15:00 Nasal Cannula 02/20/24 12:48 Nasal Cannula 02/20/24 12:00 60 02/20/24 12:00 98.3 F 61 18 158/74 H 94 L Nasal Cannula 02/20/24 11:41 79 L Room Air 02/20/24 11:00 Nasal Cannula 02/20/24 10:44 Nasal Cannula 02/20/24 09:05 97.8 F 58 L 18 113/94 H 94 L Room Air 02/20/24 09:00 Nasal Cannula O2 Flow Rate 02/21/24 07:39 4 02/21/24 06:59 4 02/21/24 04:56 4 02/21/24 04:00 02/21/24 04:00 3 02/21/24 02:47 3 02/21/24 00:51 3 02/21/24 00:00 02/21/24 00:00 3 02/20/24 23:00 3 02/20/24 21:00 2 02/20/24 20:00 02/20/24 20:00 2 02/20/24 20:00 2 02/20/24 18:50 2 02/20/24 17:00 2 02/20/24 16:00 2 02/20/24 16:00 02/20/24 15:00 2 02/20/24 12:48 2 02/20/24 12:00 02/20/24 12:00 2 02/20/24 11:41 02/20/24 11:00 2 02/20/24 10:44 2 02/20/24 09:05 02/20/24 09:00 2 Intake and Output 02/20/24 02/21/24 02/21/24 19:59 03:59 11:59 Intake Total 340 / 460 120 / 460 0 / 460 Output Total 1552029 Balance -1210 / -1570 -110 / -1570 -250 / -1570 Intake: Intake, Oral Amount 340 / 460 120 / 460 0 / 460 Output: Output, Urine Amount 1549 Other: Number of Unmeasured Voids 0 Weight 214 lb 4.8 oz Patient Weight 02/21/24 11:59 Weight 214 lb 4.8 oz Laboratory Results - last 24 hr 02/20/24 10:15: Troponin I < 0.01 02/20/24 11:01: POC Glucose 176 H 02/20/24 13:15: Troponin I < 0.01 02/20/24 17:43: POC Glucose 131 H 02/20/24 20:05: POC Glucose 129 H 02/21/24 05:30: POC Glucose 109 I & O for Labs for Last 24 Hours: Intake & Output 02/18/24 02/19/24 02/20/24 02/21/24 11:59 11:59 11:59 11:59 Intake Total 350 / 350 460 / 460 Output Total 1150 / 1150 2029 Balance -800 / -800 -1570 / -1570 Weight 211 lb 4 oz 214 lb 4.8 oz Constitutional: Present no acute distress Respiratory: Present CTA bilaterally and normal respiratory effort Cardiac: Present Reg Rate and Rhythm GI: Present normal bowel sounds; Absent tenderness Extremities: Present normal inspection; Absent edema Comment:: post surgical changes noted at ankle Skin: Present intact; Absent erythema Neuro: Present alert, awake and oriented x 3 Assessment and Plan *Assessment and plan (1) Acute hypoxemic respiratory failure: Status: Acute Category: Medical Code(s): J96.01 - Acute respiratory failure with hypoxia (2) Hypertensive emergency: Status: Acute Category: Medical Code(s): I16.1 - Hypertensive emergency (3) Elevated brain natriuretic peptide (BNP) level: Status: Acute Category: Medical Code(s): R79.89 - Other specified abnormal findings of blood chemistry (4) Diabetes: Status: Acute Category: Medical Code(s): E11.9 - Type 2 diabetes mellitus without complications (5) Neuropathy: Status: Acute Category: Medical Code(s): G62.9 - Polyneuropathy, unspecified (6) Depression: Status: Acute Category: Medical Code(s): F32.A - Depression, unspecified (7) GERD (gastroesophageal reflux disease): Status: Acute Category: Medical Code(s): K21.9 - Gastro-esophageal reflux disease without esophagitis (8) Hyperlipidemia: Status: Acute Category: Medical Code(s): E78.5 - Hyperlipidemia, unspecified (9) Sleep apnea: Status: Acute Category: Medical Code(s): G47.30 - Sleep apnea, unspecified Plan Patient has diuresed well. She is much better. BP is still elevated. Awaiting am labs and echo report. Will consult PT/OT. Dr. Adamson entry - Saw patient, agree with above note, prelim echo report shows a normal LV EF, will change to oral Lasix today.
[2024-02-21] MEDS: OXYBUTYNIN 5MG TAB 10 MG PO ×2 (08:27→20:25)
[2024-02-21] MEDS: METFORMIN 500MG TABLET 500 MG PO ×2 (08:27→16:36)
[2024-02-21] MEDS: PREGABALIN 25MG CAPSULE 75 MG PO ×2 (08:27→20:26)
[2024-02-21] MEDS: IRBESARTAN 300MG TABLET 300 MG PO (08:28)
[2024-02-21] MEDS: CITALOPRAM 40MG TABLET 40 MG PO (08:28)
[2024-02-21 08:40] LABS: Chloride 97 mmol/L (98-107); Sodium 138 mmol/L (136-145)
[2024-02-21 08:43] LABS: Blood Urea Nitrogen 25 mg/dl (7-17); Calcium 9.1 mg/dl (8.4-10.2); Carbon Dioxide 31 mmol/L (22.0-30.0); Creatinine Clearance Estimated 53 mL/min (50-200); Estimated Glomerular Filt Rate 43 ml/min (>60); GFR (African American) 52 ML/MIN (>60); Glucose 112 mg/dl (74-100)
[2024-02-21 08:53] LABS: Basophils # 0.1 K/mm3 (0-0.2); Basophils % 1.8 % (0.1-2.0); Eosinophils # 0.2 K/mm3 (0.0-0.4); Eosinophils % 2.2 % (0.1-12.0); Hematocrit 35.9 % (37.0-47.0); Hemoglobin 11.3 g/dL (12.2-16.2); Lymphocytes # 1.2 K/mm3 (0.7-4.5); Lymphocytes % 16.2 % (10-50); Mean Corpuscular HGB Conc 31.4 g/dL (31.8-35.4); Mean Corpuscular Hemoglobin 24.6 pg (27.0-31.2); Mean Corpuscular Volume 78.4 fl (81-99); Mean Platelet Volume 8.5 fl (7.4-10.4); Monocytes # 0.6 K/mm3 (0.1-1.0); Neutrophils # 5.1 K/mm3 (1.8-7.8); Neutrophils % 70.8 % (37.0-80.0); Platelet Count 131 K/mm3 (142-424); Red Blood Count 4.58 M/mm3 (4.20-5.40); Red Cell Distribution Width 17.7 % (11.5-17.5); White Blood Count 7.2 K/mm3 (4.8-10.8)
--- NOTE | 2024-02-21 09:13 | PC.NURSE ---
COURTESY TECH NOTE; ASSISTED PRIMARY TECH TO CHANGE PT BRIEF AND READJUST PT IN BED. CALL LIGHT WITHIN REACH, NO FURTHER REQUESTS AT THIS TIME Jaimie DEAN, SRNA
--- NOTE | 2024-02-21 09:34 | PC.NURSE ---
Addendum entered by Cl Liang RN 02/21/24 09:40: ROOM AIR SATURATION WAS OBTAINED WITH PATIENT AT REST. Original Note: ROOM AIR SATURATION 88% O2 SUPPORT REAPPLIED.
--- NOTE | 2024-02-21 09:37 | HMH.PTEV ---
Physical Therapy Evaluation Rehab PT IP Evaluation Start: 02/21/24 08:18 Freq: ONCE Status: Active Protocol: Document 02/21/24 09:33 DEUCE (Rec: 02/21/24 09:37 DEUCE [email or web address]) Subjective/History History History Per H&P: Patient is a an 83- year-old female with past medical history hypertension, CHF not on home oxygen presenting with shortness of breath. Patient states that she normally wears a CPAP at night and did wear it this evening but was feeling shortness of breath, got up to walk to the bathroom which exacerbated her shortness of breath prompting her to call EMS. They do note that she had an oxygen saturation in the 70s on room air on their arrival and they placed patient on supplemental oxygen and on 4 L. Patient does note improvement in her symptoms since onset after oxygen. Denies any fevers or chills, chest pain, abdominal pain. (above as per ER physician) Subjective Subjective PLOF per pt report: Lives home alone in a single-story home with 0 DONALD. Used a RW and rollator for modified IND funcitonal mobility. Was driving prior to admission. New diagnosis of cancer in past 12 No months? Rehab PT IP Eval Objective Appearance Patient Behavior Appropriate,Cooperative Patient Orientation Person,Birthday Difficulty following instructions none Speech Pattern Clear Ambulation Patient Able to Ambulate Yes Ambulation Observation IP General Gait Pattern Observation Wide Based Gait Ambulation Distance (feet) 15 Ambulation Assistive Device Rolling Walker Ambulation Ability Contact Guard/Hand Hold Balance Ability to Arise Able, uses arms to help Sitting Balance Steady, safe Standing Balance Steady, wide stance Transfers Bed Transfer Ability Minimal x 1 (25% assist) Sit to Stand Bed Transfer Ability Minimal x 1 (25% assist) Rehab PT IP prob,goals,plan Problems Date of Evaluation: 02/21/24 PT IP Problems Bed Mobility,Transfers,Gait, Balance,Safety Rehab Potential Rehab Potential Good Equipment Needs Assistive Devices Rolling / Wheeled Walker Plan PT Intervention Plan Bed Mobility,Transfers,Gait, Balance,Safety,Therapeutic Exercise Other Intervention Plan 1-2 times PT Plan Frequency Daily Duration LOS Discharge Goals Bed Transfer Ability Supervision/Stand by Sit to Stand Chair Transfer Ability Contact Guard/Hand Hold Ambulation Assistive Device Rolling Walker Ambulation Distance (feet) 20 Discharge Plan PT Discharge Plan Initial physical therapy evaluation performed. Patient presents below baseline at this time in functional mobility, transfers, gait, and strength. Upon discharge from [facility], once medically stable per MD, pt. most appropriate to be discharged to a SNF d/t current level to promote and improve overall generalized conditioning, endurance, and strength to further improve on current status w/ ADLs. Pt may be safe to d/c home with PT services if pt demo's improved mobility while at [facility] . Pt would benefit from skilled acute care PT to prevent further functional decline and maximize safety with mobility. Eval Complexity Eval Charge Codes 78098 - Moderate Complexity PHYSICIAN CERTIFICATION: I certify the specified therapy services for Kirstie Nascimento are required, authorized, and reviewed every 30 days.
[2024-02-21] MEDS: FUROSEMIDE 40 MG TABLET PO (09:56)
--- NOTE | 2024-02-21 09:59 | SW/DCPLANNER ---
Addendum entered by Melony Kim 02/25/24 09:14: Updated patient has been faxed to [facility]. I also updated [facility] that patient is ready for discharge today. Addendum entered by Melony Kim 02/24/24 08:01: Updated patient information faxed to [facility]. Addendum entered by Melony Kim 02/21/24 11:54: [facility] accepted patient for SNF level of care. Patient will have qualifying stay on 02/23/2024. [facility] has requested that nursing staff contact her at [phone] when patient is ready for discharge. I have called and left a message w/ [facility] for Dr Adamson. Original Note: I spoke w/ patient this AM regarding plans once medically stable for discharge. PT/OT evaluated patient and recommended SNF level of care. Patient stated that she has been to [place] several times in the past for rehab and is interested in returning to their facility. [facility] stated there are beds available at this time. Patient information has been faxed to [facility]. I will follow up once information is reviewed. Discharge date is unknown at this time. I will continue to update nursing staff and Dr Adamson.
--- NOTE | 2024-02-21 10:02 | HMH.OTEV ---
OT Inpatient Evaluation Rehab OT IP Evaluation Start: 02/21/24 08:18 Freq: ONCE Status: Active Protocol: Document 02/21/24 09:[facility] (Rec: 02/21/24 10:02 [facility] [id number]) Rehab OT IP Assessment Subjective History Patient is a an 83-year-old female with past medical history hypertension, CHF not on home oxygen presenting with shortness of breath. Patient states that she normally wears a CPAP at night and did wear it this evening but was feeling shortness of breath, got up to walk to the bathroom which exacerbated her shortness of breath prompting her to call EMS. They do note that she had an oxygen saturation in the 70s on room air on their arrival and they placed patient on supplemental oxygen and on 4 L. Patient does note improvement in her symptoms since onset after oxygen. Denies any fevers or chills, chest pain, abdominal pain. (above as per ER physician). She was evaluated in the ER and her BNP was elevated. CXR showed pulmonary edema. She was given lasix. Her BP was elevated and she was given nitro. She was placed on oxygen and admitted for futher evaluation and treatment. Pt was admitted on 02/20/24. PLOF: Pt reports they live at the [facility] by self in single story home. Pt reports they are independent in ADLs and need some assist with IADLs. Pt reports they have an aide that comes every other week to assist with IADLs. Pt reports they still drive. Pt reports they have a walker, rollator, shower chair, and bedside commode. Pt reports they do not wear O2 at home, but wear CPAP at night. Subjective I keep getting cramps in this leg. Pt was supine in bed when therapy arrived this morning. Pt agreed to participate in initial OT eval this morning. Pt was oriented x3. Pt reported they wanted to get into the chair. Pt agreed to sit on EOB while therapy adjusted chair and went to get O2 extension. Pt went from supine to EOB Min Assist when needed. Pt was able to sit on EOB for ~4 minutes displaying good static sitting balance with SBA while therapy adjusted chair and retrieved supplies, walker, socks. Pt agreed to demonstrate to therapy how they don socks, but needed Mod Assist from therapy due to O2 dropping and not being able to reach. Pt then completed a STS transfer with Mod Assist x2 with walker . Pt then held static standing balance for ~1 minute with CGA with walker. Pt then sat back on EOB. Pt completed another STS with walker, Mod Assist x2. Pt then completed functional mobility task ~10 feet with walker, Min Assist x2. Pt needed max verbal cues to take deep breaths. Pt sat in chair displaying good safety reaching for chair arms and making sure back of legs were touching chair. Pt sat in chair. Pt was left in chair with call light and all other needs within reach. Nursing was also in room when therapy completed functional mobility task and transfers. Nursing was also in room when therapy exited. Objective Patient Orientation Person,Place,Birthday Bed Mobility bed mobility-scooting,bed mobility - supine/sit Assist Level Minimal x 1 (25% assist) Transfer Training Sit/Stand Transfer Assist Level Moderate x 2 (50% assist) Chair Transfer Ability Moderate x 2 (50% assist) Chair Transfer Technique Sit to/from Ambulatory Chair Transfer Assistive Devices Standard Walker Lower Body Dressing Ability Moderate Assistance Decrease in Endurance Yes Rehab OT IP prob,goals,plan Problems Date of Evaluation: 02/21/24 OT IP Problems Bed Mobility,Transfers,Balance ,Self care,Safety Rehab Potential Rehab Potential Good Equipment Needs Assistive Devices Standard Walker Plan OT intervention Plan Bed Mobility,Transfers,Balance ,Self care,Safety,Therapeutic Exercise OT Plan Frequency Daily Duration LOS Discharge Goals Bed Mobility Ability Standby Assistance Sit to Stand Chair Transfer Ability Minimal x 1 (25% assist) Chair Transfer Ability Minimal x 1 (25% assist) Chair Transfer Technique Sit to/from Ambulatory Chair Transfer Assistive Devices Standard Walker Feeding Ability Assist with Tray Set Up Lower Body Dressing Ability Standby Assistance Upper Body Dressing Ability Standby Assistance Bathing Ability Moderate Assistance Performing Toilet Hygiene Ability Minimal Assistance Overall Commode/Toilet Transfer Ability Contact Guard Commode/Toilet Transfer Technique Sit to/from Ambulatory Decrease in Endurance No Discharge Plan OT Discharge Plan At this time, it is recommended that pt goes to rehab to address in occupational performance deficits with skilled OT services or home with services to address these occupational performance deficits with skilled OT services all pending orders and medical status. Pt will continue to be seen while at this facility to address occupational performance deficits with skilled OT services and interventions. Eval Complexity Eval Charge Codes 03281 - Moderate Complexity PHYSICIAN CERTIFICATION: I certify the specified therapy services for Kirstie Stephie New are required, authorized, and reviewed every 30 days.
[2024-02-21 12:50] LABS: POC Glucose,Bedside 116 (70-110)
--- NOTE | 2024-02-21 16:12 | PC.NURSE ---
no acute changes since previous assessment. sat up to chair for meals today. still requiring 4lnc for o2 support. desaturations noted with exertion.
[2024-02-21] MEDS: MONTELUKAST SODIUM 10MG TAB 10 MG PO (16:36)
[2024-02-21 16:44] LABS: POC Glucose,Bedside 125 (70-110)
[2024-02-21] MEDS: PRAVASTATIN 40MG TAB 40 MG PO (20:25)
[2024-02-21 21:08] LABS: POC Glucose,Bedside 107 (70-110)
[2024-02-22] VITALS (10 sets, daily range): BP systolic 116–159; BP diastolic 56–67; PULSE 57–80; RESP 16–18; TEMP 36.3–37.1; O2SAT 92–96; BMI 33.2
[2024-02-22] MEDS: METFORMIN 500MG TABLET 500 MG PO ×2 (06:40→17:18)
[2024-02-22 06:49] LABS: POC Glucose,Bedside 104 (70-110)
[2024-02-22] MEDS: OXYBUTYNIN 5MG TAB 10 MG PO ×2 (08:07→20:20)
[2024-02-22] MEDS: PREGABALIN 25MG CAPSULE 75 MG PO ×2 (08:07→20:20)
[2024-02-22] MEDS: IRBESARTAN 300MG TABLET 300 MG PO (08:08)
[2024-02-22] MEDS: CITALOPRAM 40MG TABLET 40 MG PO (08:08)
[2024-02-22] MEDS: FUROSEMIDE 40 MG TABLET PO (08:08)
--- NOTE | 2024-02-22 09:07 | EXP.ACUTE.PN ---
Subjective *Date: 02/22/24 *Time: 09:07 Interval history: Patient with no new complaints today, still requiring 4 L of O2 per NC. Medical Exam Vital signs and Labs for Last 24 Hours: Vital Signs Temp Pulse Pulse Resp BP Pulse Ox O2 Del Method 02/22/24 07:56 98.3 F 62 18 141/67 H 93 L Nasal Cannula 02/22/24 06:57 Nasal Cannula 02/22/24 05:00 Nasal Cannula 02/22/24 04:00 60 02/22/24 04:00 98.0 F 57 L 16 159/56 H 95 Nasal Cannula 02/22/24 03:00 Nasal Cannula 02/22/24 01:00 Nasal Cannula 02/22/24 00:00 60 02/22/24 00:00 98.4 F 60 16 128/65 96 Nasal Cannula 02/21/24 23:00 Nasal Cannula 02/21/24 21:00 Nasal Cannula 02/21/24 20:00 70 02/21/24 20:00 95 Nasal Cannula 02/21/24 20:00 97.9 F 64 18 123/50 L 94 L Nasal Cannula 02/21/24 18:17 Nasal Cannula 02/21/24 17:00 Nasal Cannula 02/21/24 16:00 98.0 F 88 18 135/64 92 L Nasal Cannula 02/21/24 16:00 80 02/21/24 15:00 Nasal Cannula 02/21/24 13:00 Nasal Cannula 02/21/24 12:00 70 02/21/24 12:00 98.6 F 67 18 121/62 93 L Nasal Cannula 02/21/24 11:00 Nasal Cannula 02/21/24 09:33 88 L Room Air O2 Flow Rate 02/22/24 07:56 4 02/22/24 06:57 4 02/22/24 05:00 4 02/22/24 04:00 02/22/24 04:00 4 02/22/24 03:00 4 02/22/24 01:00 4 02/22/24 00:00 02/22/24 00:00 3 02/21/24 23:00 4 02/21/24 21:00 4 02/21/24 20:00 02/21/24 20:00 4 02/21/24 20:00 4 02/21/24 18:17 4 02/21/24 17:00 4 02/21/24 16:00 4 02/21/24 16:00 02/21/24 15:00 4 02/21/24 13:00 4 02/21/24 12:00 02/21/24 12:00 4 02/21/24 11:00 4 02/21/24 09:33 Intake and Output 02/21/24 02/22/24 02/22/24 23:59 07:59 15:59 Intake Total 270 / 940 360 / 360 Output Total 0 / 655 0 / 0 Balance 270 / 285 0 / 360 360 / 360 Intake: Intake, Oral Amount 270 / 940 360 / 360 Output: Output, Urine Amount 0 / 655 0 / 0 Other: Number of Unmeasured Voids 1 1 Weight 206 lb 8 oz Patient Weight 02/22/24 23:59 Weight 206 lb 8 oz Laboratory Results - last 24 hr 02/21/24 12:42: POC Glucose 116 H 02/21/24 16:36: POC Glucose 125 H 02/21/24 20:56: POC Glucose 107 02/22/24 06:38: POC Glucose 104 I & O for Labs for Last 24 Hours: Intake & Output 02/19/24 02/20/24 02/21/24 02/22/24 23:59 23:59 23:59 23:59 Intake Total 690 / 810 940 / 940 360 / 360 Output Total 2700 / 2930 655 / 655 0 / 0 Balance -20090 285 / 285 360 / 360 Weight 211 lb 4 oz 214 lb 4.629 oz 206 lb 8 oz Constitutional: Present no acute distress Respiratory: Present CTA bilaterally and normal respiratory effort Cardiac: Present Reg Rate and Rhythm GI: Present normal bowel sounds; Absent tenderness Extremities: Present normal inspection; Absent edema Comment:: post surgical changes noted at ankle Skin: Present intact; Absent erythema Neuro: Present alert, awake and oriented x 3 Assessment and Plan *Assessment and plan (1) Acute hypoxemic respiratory failure: Status: Acute Category: Medical Code(s): J96.01 - Acute respiratory failure with hypoxia (2) Hypertensive emergency: Status: Acute Category: Medical Code(s): I16.1 - Hypertensive emergency (3) Elevated brain natriuretic peptide (BNP) level: Status: Acute Category: Medical Code(s): R79.89 - Other specified abnormal findings of blood chemistry (4) Diabetes: Status: Acute Category: Medical Code(s): E11.9 - Type 2 diabetes mellitus without complications (5) Neuropathy: Status: Acute Category: Medical Code(s): G62.9 - Polyneuropathy, unspecified (6) Depression: Status: Acute Category: Medical Code(s): F32.A - Depression, unspecified (7) GERD (gastroesophageal reflux disease): Status: Acute Category: Medical Code(s): K21.9 - Gastro-esophageal reflux disease without esophagitis (8) Hyperlipidemia: Status: Acute Category: Medical Code(s): E78.5 - Hyperlipidemia, unspecified (9) Sleep apnea: Status: Acute Category: Medical Code(s): G47.30 - Sleep apnea, unspecified Plan BP is better now, still needing supplemental O2, echo still pending, will check CTA of lungs. Patient is agreeable to short term placement.
--- NOTE | 2024-02-22 09:10 | CT_ITS ---
PROCEDURE INFORMATION: Exam: CTA Chest With Contrast Exam date and time: 02/22/2024 10:24 AM Age: 83 years old Clinical indication: Other: Hypoxia TECHNIQUE: Imaging protocol: Computed tomographic angiography of the chest with contrast. Exam focused on the arteries. 3D rendering (Not supervised by radiologist): MIP and/or 3D reconstructed images were created by the technologist. Radiation optimization: All CT scans at this facility use at least one of these dose optimization techniques: automated exposure control; mA and/or kV adjustment per patient size (includes targeted exams where dose is matched to clinical indication); or iterative reconstruction. Contrast material: ISOVUE 370; Contrast volume: 70 ml; Contrast route: INTRAVENOUS (IV); COMPARISON: CT ANGIO CHEST PE PROTOCOL 11/10/2023 12:13 PM FINDINGS: Pulmonary arteries: No evidence of pulmonary embolus to the segmental level. Aorta: No aneurysm of the aorta. No dissection of the aorta. Lungs: Patchy ground-glass opacities in the left upper lobe and lingula and both lower lobes may represent multifocal pneumonia. Pleural spaces: Unremarkable. No pneumothorax. No pleural effusion. Heart: Unremarkable. No cardiomegaly. No pericardial effusion. Coronary arteries: Coronary artery calcifications may indicate coronary artery disease. Lymph nodes: Pathologic node anterior to the trachea 3 x 2.3 cm . Gallbladder and biliary ducts: Gallstones in the gallbladder.. Bones/joints: Chronic Compression fracture T12 No acute fracture. Soft tissues: Unremarkable. IMPRESSION: 1. No evidence of pulmonary embolus to the segmental level. 2. Pathologic node anterior to the trachea 3 x 2.3 cm . Recommend further evaluation 3. Patchy ground-glass opacities in the left upper lobe and lingula and both lower lobes may represent multifocal pneumonia. 4. Gallstones in the gallbladder..
--- NOTE | 2024-02-22 09:13 | HMH.ITSTN ---
Contacted nurse, wood. Advised pt needs IV bolus of fluids before CT because of GFR. He said he will let the doctor know and call me back
[2024-02-22] MEDS: SODIUM CHLORIDE 0.9% 10ML SYR (RAD ONLY) 10 ML IV (10:31)
[2024-02-22] MEDS: IOPAMIDOL-370 (76%);100ML BOTTLE 70 ML IV (10:31)
[2024-02-22] MEDS: 0.9 % SODIUM CHLORIDE 50 ML VIAL IV (10:31)
[2024-02-22] MEDS: 0.9 % SODIUM CHLORIDE 250 ML 999 ML IV (10:55)
[2024-02-22 12:13] LABS: POC Glucose,Bedside 149 (70-110)
[2024-02-22] MEDS: AZITHROMYCIN 500 MG in 0.9 % SODIUM CHLORIDE 250 ML 250 MG IV (15:08)
[2024-02-22] MEDS: CEFTRIAXONE 1 GM 1 GM in 0.9 % SODIUM CHLORIDE 50 ML IV (15:09)
[2024-02-22] MEDS: ALUMINUM/MAGNESIUM/SIMETHICONE 30ML UDC 30 ML PO (16:01)
[2024-02-22] MEDS: FAMOTIDINE 20MG TABLET 40 MG PO (16:01)
[2024-02-22 17:01] LABS: POC Glucose,Bedside 143 (70-110)
[2024-02-22] MEDS: MONTELUKAST SODIUM 10MG TAB 10 MG PO (17:18)
--- NOTE | 2024-02-22 18:56 | PC.NURSE ---
AOX4, CONTINUES TO REQUIRE 4LNC FOR O2 SUPPORT. ATTEMPTED TO WEAN O2 TODAY BUT PATIENT WAS UNABLE TO TOLERATE. PUREWICK REMAINS IN PLACE.
[2024-02-22] MEDS: PRAVASTATIN 40MG TAB 40 MG PO (20:20)
[2024-02-23] VITALS (8 sets, daily range): BP systolic 115–152; BP diastolic 45–67; PULSE 60–80; RESP 16–18; TEMP 36.6–37.1; O2SAT 89–95; BMI 33.3
[2024-02-23] MEDS: METFORMIN 500MG TABLET 500 MG PO ×2 (06:32→17:57)
[2024-02-23 06:57] LABS: POC Glucose,Bedside 151 (70-110)
[2024-02-23 06:57] LABS: POC Glucose,Bedside 105 (70-110)
[2024-02-23] MEDS: CITALOPRAM 40MG TABLET 40 MG PO (08:14)
[2024-02-23] MEDS: PREGABALIN 25MG CAPSULE 75 MG PO ×2 (08:14→20:51)
[2024-02-23] MEDS: IRBESARTAN 300MG TABLET 300 MG PO (08:14)
[2024-02-23] MEDS: OXYBUTYNIN 5MG TAB 10 MG PO ×2 (08:14→20:51)
[2024-02-23] MEDS: FUROSEMIDE 40 MG TABLET PO (08:14)
[2024-02-23] MEDS: FAMOTIDINE 20MG TABLET 40 MG PO (08:15)
[2024-02-23] MEDS: ENOXAPARIN 40MG/0.4ML SYRINGE 40 MG SQ (08:16)
[2024-02-23 08:22] LABS: Basophils # 0.1 K/mm3 (0-0.2); Basophils % 0.5 % (0.1-2.0); Eosinophils # 0.2 K/mm3 (0.0-0.4); Eosinophils % 2.4 % (0.1-12.0); Lymphocytes # 1.6 K/mm3 (0.7-4.5); Lymphocytes % 18.2 % (10-50); Mean Corpuscular HGB Conc 30.9 g/dL (31.8-35.4); Mean Corpuscular Hemoglobin 23.9 pg (27.0-31.2); Mean Corpuscular Volume 77.4 fl (81-99); Mean Platelet Volume 9.9 fl (7.4-10.4); Monocytes # 0.8 K/mm3 (0.1-1.0); Monocytes % 9.6 % (1.7-9.3); Neutrophils % 69.3 % (37.0-80.0); Platelet Count 150 K/mm3 (142-424); Red Blood Count 5.03 M/mm3 (4.20-5.40); Red Cell Distribution Width 18.2 % (11.5-17.5); White Blood Count 8.7 K/mm3 (4.8-10.8)
[2024-02-23 08:27] LABS: Chloride 94 mmol/L (98-107); Sodium 139 mmol/L (136-145)
[2024-02-23 08:28] LABS: Potassium 4.4 mmoL/L (3.5-5.1)
[2024-02-23 08:31] LABS: Anion Gap 13.4 mEq/L (5-15); Blood Urea Nitrogen 34 mg/dl (7-17); Calcium 9.2 mg/dl (8.4-10.2); Carbon Dioxide 36 mmol/L (22.0-30.0); Creatinine Clearance Estimated 51 mL/min (50-200); Estimated Glomerular Filt Rate 43 ml/min (>60); GFR (African American) 52 ML/MIN (>60); Glucose 112 mg/dl (74-100)
--- NOTE | 2024-02-23 08:52 | P.PN_ITS ---
Subjective *Date: 02/23/24 *Time: 08:52 Interval history: Patient with no new complaints today. CTA yesterday showed possible multifocal pneumonia and an enlarging paratracheal lymph node.. Antibiotics were started. Medical Exam Vital signs and Labs for Last 24 Hours: Vital Signs Temp Pulse Pulse Resp BP Pulse Ox O2 Del Method 02/23/24 08:00 98.6 F 65 18 133/63 93 L Nasal Cannula 02/23/24 06:47 Nasal Cannula 02/23/24 05:00 Nasal Cannula 02/23/24 04:00 98.4 F 63 16 124/66 95 Nasal Cannula 02/23/24 04:00 60 02/23/24 03:00 Nasal Cannula 02/23/24 01:00 Nasal Cannula 02/23/24 00:00 80 02/23/24 00:00 97.9 F 63 16 115/61 94 L Nasal Cannula 02/22/24 23:00 Nasal Cannula 02/22/24 21:00 Nasal Cannula 02/22/24 20:00 80 02/22/24 20:00 Nasal Cannula 02/22/24 19:45 98.7 F 66 18 116/58 L 95 Nasal Cannula 02/22/24 19:09 94 L Nasal Cannula 02/22/24 18:57 Nasal Cannula 02/22/24 17:00 Nasal Cannula 02/22/24 16:00 70 02/22/24 16:00 97.9 F 64 18 136/63 94 L Nasal Cannula 02/22/24 15:00 Nasal Cannula 02/22/24 13:00 Nasal Cannula 02/22/24 12:00 60 02/22/24 11:31 97.4 F L 64 18 131/64 92 L Nasal Cannula 02/22/24 11:00 Nasal Cannula 02/22/24 09:00 Nasal Cannula O2 Flow Rate 02/23/24 08:00 02/23/24 06:47 4 02/23/24 05:00 4 02/23/24 04:00 4 02/23/24 04:00 02/23/24 03:00 4 02/23/24 01:00 4 02/23/24 00:00 02/23/24 00:00 3 02/22/24 23:00 4 02/22/24 21:00 4 02/22/24 20:00 02/22/24 20:00 4 02/22/24 19:45 3 02/22/24 19:09 4 02/22/24 18:57 4 02/22/24 17:00 4 02/22/24 16:00 02/22/24 16:00 4 02/22/24 15:00 4 02/22/24 13:00 4 02/22/24 12:00 02/22/24 11:31 4 02/22/24 11:00 4 02/22/24 09:00 4 Intake and Output 02/22/24 02/23/24 02/23/24 23:59 07:59 15:59 Intake Total 970 / 1690 240 / 240 Output Total 1450 / 1900 450 / 450 0 / 450 Balance -480 / -210 -210 / -210 0 / -210 Intake: Intake, Oral Amount 420 / 1140 240 / 240 Infusion Intake 550 / 550 0.9 % Sodium Chloride 250 ml @ 250 / 250 999 mls/hr IV .Q16M [facility] Rx#: [id number] Azithromycin 500 mg In 0.9 % 250 / 250 Sodium Chloride 250 ml @ 250 mls/hr IV Q24H [facility] Rx#:[id number] Ceftriaxone 1 gm 1 gm In 0.9 % 50 / 50 Sodium Chloride 50 ml @ 100 mls /hr IV Q24H [facility] Rx#:[id number] Output: Output, Urine Amount 1450 / 1900 450 / 450 0 / 450 Other: Number of Unmeasured Voids 0 1 1 Weight 207 lb 9.6 oz Patient Weight 02/23/24 23:59 Weight 207 lb 9.6 oz Laboratory Results - last 24 hr 02/22/24 12:06: POC Glucose 149 H 02/22/24 16:54: POC Glucose 143 H 02/22/24 20:18: POC Glucose 151 H 02/23/24 06:50: POC Glucose 105 02/23/24 07:30: WBC 8.7, RBC 5.03, Hgb 12.0 L, Hct 39.0, MCV 77.4 L, MCH 23.9 L, MCHC 30.9 L, RDW 18.2 H, Plt Count 150, MPV 9.9, Neut % (Auto) 69.3, Lymph % (Auto) 18.2, [place] % (Auto) 9.6 H, Eos % (Auto) 2.4, Baso % (Auto) 0.5, Neut # (Auto) 6.0, Lymph # (Auto) 1.6, [place] # (Auto) 0.8, Eos # (Auto) 0.2, Baso # (Auto) 0.1, Sodium 139, Potassium 4.4, Chloride 94 L, Carbon Dioxide 36 H, Anion Gap 13.4, BUN 34 H D, Creatinine 1.20 H, Estimated Creat Clear 51, Estimated GFR 43 L, Est GFR ( Amer) 52 L, Glucose 112 H, Calcium 9.2 I & O for Labs for Last 24 Hours: Intake & Output 02/20/24 02/21/24 02/22/24 02/23/24 23:59 23:59 23:59 23:59 Intake Total 690 / 810 940 / 940 1690 / 1690 240 / 240 Output Total 2700 / 2930 655 / 655 1450 / 1900 450 / 450 Balance -2009 / -2120 285 / 285 240 / -210 -210 / -210 Weight 211 lb 4 oz 214 lb 4.629 oz 206 lb 8 oz 207 lb 9.6 oz Constitutional: Present no acute distress Respiratory: Present CTA bilaterally and normal respiratory effort Cardiac: Present Reg Rate and Rhythm GI: Present normal bowel sounds; Absent tenderness Extremities: Present normal inspection; Absent edema Comment:: post surgical changes noted at ankle Skin: Present intact; Absent erythema Neuro: Present alert, awake and oriented x 3 Assessment and Plan *Assessment and plan (1) Acute hypoxemic respiratory failure: Status: Acute Category: Medical Code(s): J96.01 - Acute respiratory failure with hypoxia (2) Hypertensive emergency: Status: Acute Category: Medical Code(s): I16.1 - Hypertensive emergency (3) Elevated brain natriuretic peptide (BNP) level: Status: Acute Category: Medical Code(s): R79.89 - Other specified abnormal findings of blood chemistry (4) Diabetes: Status: Acute Category: Medical Code(s): E11.9 - Type 2 diabetes mellitus without complications (5) Neuropathy: Status: Acute Category: Medical Code(s): G62.9 - Polyneuropathy, unspecified (6) Depression: Status: Acute Category: Medical Code(s): F32.A - Depression, unspecified (7) GERD (gastroesophageal reflux disease): Status: Acute Category: Medical Code(s): K21.9 - Gastro-esophageal reflux disease without esophagitis (8) Hyperlipidemia: Status: Acute Category: Medical Code(s): E78.5 - Hyperlipidemia, unspecified (9) Sleep apnea: Status: Acute Category: Medical Code(s): G47.30 - Sleep apnea, unspecified (10) CAP (community acquired pneumonia): Status: Acute Category: Medical Code(s): J18.9 - Pneumonia, unspecified organism (11) Paratracheal lymphadenopathy: Status: Acute Category: Medical Code(s): R59.0 - Localized enlarged lymph nodes Plan Echo still pending. Will ask pulmonology to see patient tomorrow , continue antibiotics.
[2024-02-23] MEDS: FLUTICASONE PROP 50MCG NASAL SPRAY 16GM 1 SPRAY NS ×2 (09:30→20:51)
[2024-02-23] MEDS: CEFTRIAXONE 1 GM 1 GM in 0.9 % SODIUM CHLORIDE 50 ML IV (13:29)
[2024-02-23] MEDS: AZITHROMYCIN 500 MG in 0.9 % SODIUM CHLORIDE 250 ML 250 MG IV (14:14)
[2024-02-23 17:02] LABS: POC Glucose,Bedside 149 (70-110)
[2024-02-23] MEDS: MONTELUKAST SODIUM 10MG TAB 10 MG PO (17:57)
--- NOTE | 2024-02-23 18:12 | PC.NURSE ---
no changes since previous assessment. 4lnc for o2 support with humidification added for comfort. purewick in place. pt has remained in bed for most of shift. tolerating diet well.
[2024-02-23] MEDS: PRAVASTATIN 40MG TAB 40 MG PO (20:51)
[2024-02-23 21:18] LABS: POC Glucose,Bedside 156 (70-110)
[2024-02-24] VITALS (9 sets, daily range): BP systolic 113–158; BP diastolic 56–78; PULSE 60–75; RESP 16–20; TEMP 36.3–37.2; O2SAT 93–98; BMI 33.3
[2024-02-24] MEDS: METFORMIN 500MG TABLET 500 MG PO ×2 (06:48→17:43)
[2024-02-24 06:57] LABS: POC Glucose,Bedside 125 (70-110)
--- NOTE | 2024-02-24 07:59 | P.PN_ITS ---
Subjective *Date: 02/24/24 *Time: 08:56 Interval history: Slept well. Feels she is eating well. States she is much better since admission. She still requires oxygen at 4 L/min and is short of breath with exertion. She has been out of bed and walked with her walker and sat in a chair. She has been working with physical therapy. She denies chest pain and shortness of breath. She plans on going to rehab post Hospital discharge Medical Exam Vital signs and Labs for Last 24 Hours: Vital Signs Temp Pulse Pulse Resp BP Pulse Ox O2 Del Method 02/24/24 06:30 Nasal Cannula 02/24/24 05:00 Nasal Cannula 02/24/24 04:00 60 02/24/24 04:00 97.8 F 63 16 139/69 96 Nasal Cannula 02/24/24 03:00 Nasal Cannula 02/24/24 01:00 Nasal Cannula 02/24/24 00:00 65 02/24/24 00:00 98.1 F 65 16 113/56 L 97 Nasal Cannula 02/23/24 23:00 Nasal Cannula 02/23/24 21:00 Nasal Cannula 02/23/24 20:00 70 02/23/24 20:00 Nasal Cannula 02/23/24 20:00 98.1 F 67 18 121/45 L 95 Nasal Cannula 02/23/24 18:33 Nasal Cannula 02/23/24 18:15 Nasal Cannula 02/23/24 18:00 89 L Room Air 02/23/24 17:00 Nasal Cannula 02/23/24 16:00 70 02/23/24 16:00 98.3 F 62 18 130/60 93 L Nasal Cannula 02/23/24 15:00 Nasal Cannula 02/23/24 12:16 Nasal Cannula 02/23/24 12:00 71 02/23/24 11:40 98.8 F 67 18 152/67 H 92 L Nasal Cannula 02/23/24 11:00 Nasal Cannula 02/23/24 09:00 Nasal Cannula 02/23/24 08:00 76 02/23/24 08:00 Nasal Cannula 02/23/24 08:00 98.6 F 65 18 133/63 93 L Nasal Cannula O2 Flow Rate 02/24/24 06:30 4 02/24/24 05:00 4 02/24/24 04:00 02/24/24 04:00 4 02/24/24 03:00 4 02/24/24 01:00 4 02/24/24 00:00 02/24/24 00:00 02/23/24 23:00 4 02/23/24 21:00 4 02/23/24 20:00 02/23/24 20:00 4 02/23/24 20:00 4 02/23/24 18:33 4 02/23/24 18:15 4 02/23/24 18:00 02/23/24 17:00 4 02/23/24 16:00 02/23/24 16:00 4 02/23/24 15:00 4 02/23/24 12:16 4 02/23/24 12:00 02/23/24 11:40 4 02/23/24 11:00 4 02/23/24 09:00 4 02/23/24 08:00 02/23/24 08:00 4 02/23/24 08:00 Intake and Output 02/23/24 02/24/24 02/24/24 19:59 03:59 11:59 Intake Total 1230 / 1230 240 / 1470 Output Total 550 / 550 Balance 1230 / 1230 -310 / 920 Intake: Intake, Oral Amount 930 / 930 240 / 1170 Infusion Intake 300 / 300 Azithromycin 500 mg In 0.9 % 250 / 250 Sodium Chloride 250 ml @ 250 mls/hr IV Q24H [facility] Rx#:[id number] Ceftriaxone 1 gm 1 gm In 0.9 % 50 / 50 Sodium Chloride 50 ml @ 100 mls /hr IV Q24H [facility] Rx#:[id number] Output: Output, Urine Amount 550 / 550 Other: Number of Unmeasured Voids 1 0 Weight 207 lb 8 oz Patient Weight 02/24/24 11:59 Weight 207 lb 8 oz Laboratory Results - last 24 hr 02/23/24 07:30: WBC 8.7, RBC 5.03, Hgb 12.0 L, Hct 39.0, MCV 77.4 L, MCH 23.9 L, MCHC 30.9 L, RDW 18.2 H, Plt Count 150, MPV 9.9, Neut % (Auto) 69.3, Lymph % (Auto) 18.2, [place] % (Auto) 9.6 H, Eos % (Auto) 2.4, Baso % (Auto) 0.5, Neut # (Auto) 6.0, Lymph # (Auto) 1.6, [place] # (Auto) 0.8, Eos # (Auto) 0.2, Baso # (Auto) 0.1, Sodium 139, Potassium 4.4, Chloride 94 L, Carbon Dioxide 36 H, Anion Gap 13.4, BUN 34 H D, Creatinine 1.20 H, Estimated Creat Clear 51, Estimated GFR 43 L, Est GFR ( Amer) 52 L, Glucose 112 H, Calcium 9.2 02/23/24 16:55: POC Glucose 149 H 02/23/24 20:55: POC Glucose 156 H 02/24/24 06:47: POC Glucose 125 H I & O for Labs for Last 24 Hours: Intake & Output 02/21/24 02/22/24 02/23/24 02/24/24 11:59 11:59 11:59 11:59 Intake Total 730 / 730 910 / 910 1840 / 1840 1470 / 1470 Output Total 2205 / 2205 0 / 0 1900 / 1900 550 / 550 Balance -1475 / -1475 910 / 910 -60 / -60 920 / 920 Weight 214 lb 4.8 oz 206 lb 8 oz 207 lb 9.6 oz 207 lb 8 oz Constitutional: Present no acute distress Comment:: Sitting up in the bed and eating breakfast. Appears quite comfortable. O2 at 4 L/min per nasal cannula. Respiratory: Present decreased breath sounds (Posterior lateral with crackles on the left base) Cardiac: Present Regular Rate and Regular Rhythm GI: Present soft, distention (Ventral hernia) and normal bowel sounds; Absent tenderness or guarding Extremities: Absent tenderness, edema or calf tenderness Comment:: Rough skin changes on bilateral lower extremities Neuro: Present alert, awake and oriented x 3 Comment:: Conversant Assessment and Plan *Assessment and plan (1) Acute hypoxemic respiratory failure: Status: Acute Category: Medical Code(s): J96.01 - Acute respiratory failure with hypoxia (2) Hypertensive emergency: Status: Acute Category: Medical Code(s): I16.1 - Hypertensive emergency (3) Elevated brain natriuretic peptide (BNP) level: Status: Acute Category: Medical Code(s): R79.89 - Other specified abnormal findings of blood chemistry (4) Diabetes: Status: Acute Category: Medical Code(s): E11.9 - Type 2 diabetes mellitus without complications (5) Neuropathy: Status: Acute Category: Medical Code(s): G62.9 - Polyneuropathy, unspecified (6) Depression: Status: Acute Category: Medical Code(s): F32.A - Depression, unspecified (7) GERD (gastroesophageal reflux disease): Status: Acute Category: Medical Code(s): K21.9 - Gastro-esophageal reflux disease without esophagitis (8) Hyperlipidemia: Status: Acute Category: Medical Code(s): E78.5 - Hyperlipidemia, unspecified (9) Sleep apnea: Status: Acute Category: Medical Code(s): G47.30 - Sleep apnea, unspecified (10) CAP (community acquired pneumonia): Status: Acute Category: Medical Code(s): J18.9 - Pneumonia, unspecified organism (11) Paratracheal lymphadenopathy: Status: Acute Category: Medical Code(s): R59.0 - Localized enlarged lymph nodes Plan Pulmonology to see patient today. Continue with PT. Continue with antibiotics. Dr. Adamson entry - Saw patient, agree with above note. Cont. to wean supplemental O2 today
[2024-02-24] MEDS: IRBESARTAN 300MG TABLET 300 MG PO (08:42)
[2024-02-24] MEDS: CITALOPRAM 40MG TABLET 40 MG PO (08:42)
[2024-02-24] MEDS: FAMOTIDINE 20MG TABLET 40 MG PO (08:42)
[2024-02-24] MEDS: ENOXAPARIN 40MG/0.4ML SYRINGE 40 MG SQ (08:42)
[2024-02-24] MEDS: FLUTICASONE PROP 50MCG NASAL SPRAY 16GM 1 SPRAY NS ×2 (08:42→20:01)
[2024-02-24] MEDS: FUROSEMIDE 40 MG TABLET PO (08:42)
[2024-02-24] MEDS: PREGABALIN 25MG CAPSULE 75 MG PO ×2 (08:42→20:01)
[2024-02-24] MEDS: OXYBUTYNIN 5MG TAB 10 MG PO ×2 (08:42→20:01)
--- NOTE | 2024-02-24 09:40 | P.CONS_ITS ---
History of Present Illness History of present illness: Ms. Nascimento is a 83-year-old female with reported history of hypertension congestive heart failure presented to ER with worsening respiratory distress and pulmonary was called for further evaluation and management. She does not use any oxygen supplementation at baseline during the daytime but using oxygen supplementation at 2 L with his CPAP. Carries a diagnosis of asthma and allergies receiving Advair inhaler. [facility] Disclaimer: The information contained in this section may have been updated after the patient was seen, as this information can be updated by other users. 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 History of arthroplasty of right knee History of appendectomy Family History Heart attack Social History (Updated 02/20/24 @ 10:28 by Minerva Lopez RN) Smoking Status: Never smoker alcohol intake: never substance use type: denies use current occupational status: other Travel in the last 8 weeks: None household members: none caffeine: Yes Review of Systems Constitutional Constitutional: Reports fatigue, Reports headache(s) and Reports weakness Eyes Eyes: Denies eye discharge, Denies dry eyes, Denies irritation and Denies itchy eyes ENT Ears, Nose, Mouth, and Throat: Reports headache(s), Denies lip swelling, Denies throat swelling and Denies vertigo *Cardiovascular Cardiovascular: Reports dyspnea, Reports dyspnea on exertion and Reports leg edema *Respiratory Respiratory: Reports chest congestion, Reports cough, Reports dyspnea, Reports dyspnea on exertion, Denies excessive phlegm production, Denies hemoptysis, Denies pain on inspiration, Denies pain with cough and Reports wheezing *Gastrointestinal Gastrointestinal: Denies abdominal pain, Denies belching and Denies cramping *Musculoskeletal Musculoskeletal: Reports back pain, Reports myalgias and Reports other (No small joint swelling or Pain) *Neurologic Neurologic: Reports headache(s), Denies vertigo and Reports weakness Psychiatric Psychiatric: Denies homicidal ideation and Denies suicidal ideation Endocrine Endocrine: Reports fatigue and Denies heat intolerance Hematologic/Lymphatic Hematologic/Lymphatic: Denies easy bleeding and Denies lymphadenopathy Allergic/Immunologic Allergic/Immunologic: Denies itchy eyes, Denies lip swelling, Denies throat swelling and Reports wheezing Pulmonology Exam Inpatient Vital signs and Labs for Last 24 Hours: Temp Pulse Resp BP Pulse Ox O2 Del Method O2 Flow Rate 97.5 F L 70 18 142/78 H 96 Nasal Cannula 3 02/24/24 08:00 02/24/24 08:00 02/24/24 08:00 02/24/24 08:00 02/24/24 08:00 02/24/24 09:00 02/24/24 09:00 Laboratory Results - last 24 hr 02/23/24 16:55: POC Glucose 149 H 02/23/24 20:55: POC Glucose 156 H 02/24/24 06:47: POC Glucose 125 H I & O for Labs for Last 24 Hours: Intake & Output 02/21/24 02/22/24 02/23/24 02/24/24 23:59 23:59 23:59 23:59 Intake Total 940 / 940 1690 / 1690 1740 / 1980 240 / 240 Output Total 655 / 655 1450 / 1900 450 / 1000 550 / 550 Balance 285 / 285 240 / -210 1290 / 980 -310 / -310 Weight 214 lb 4.629 oz 206 lb 8 oz 207 lb 9.6 oz 207 lb 8 oz Constitutional: Present moderate distress Head: Present normocephalic and atraumatic ENT: Present normal exam, normal oropharynx and mucous membranes moist Neck: Present normal inspection and full ROM Respiratory: Present respiratory distress, rhonchi, crackles, diminished air movement and able to speak in complete sentences; Absent wheezes Cardiac: Present S1/S2, Tachycardia and radial pulses present GI: Present soft and distention; Absent tenderness or guarding Rectal (female): Present deferred (female): Present deferred Skin: Present intact; Absent cyanosis or jaundice Neuro: Present alert, awake and oriented x 3 Extremities: Present normal inspection; Absent clubbing or cyanosis Psychiatric: Present normal affect and cooperative Meds Home Medications and Allergies Home Medications Medication Instructions Recorded Confirmed Type celecoxib 200 mg capsule 200 mg PO DAILY 03/06/18 02/20/24 History lisinopril 20 mg tablet 20 mg PO DAILY 03/06/18 02/20/24 History metformin 500 mg tablet 500 mg PO BIDWMEAL 03/06/18 02/20/24 History montelukast 10 mg tablet 10 mg PO PM 03/06/18 02/20/24 History pregabalin 75 mg capsule (Lyrica) 75 mg PO BID 03/06/18 02/20/24 History simvastatin 20 mg tablet 20 mg PO HS 03/06/18 02/20/24 History escitalopram oxalate 20 mg tablet 20 mg PO DAILY 11/10/23 02/20/24 History fluticasone 250 mcg-salmeterol 50 1 ea inhalation BID 11/10/23 02/20/24 History mcg/dose blistr powdr for inhalation (Wixela Inhub) oxybutynin chloride 10 mg 20 mg PO DAILY 11/10/23 02/20/24 History tablet,extended release 24 hr tizanidine 4 mg capsule 4 mg PO HSP PRN muscle spasticity 11/10/23 02/20/24 History mv-mn-folic 200 mcg-vit K 15 1 cap PO BID 11/11/23 02/20/24 History mcg-lutein 5 mg-zeaxanthin 1 mg capsule (PreserVision AREDS 2 Plus Multivit) amlodipine 5 mg tablet 5 mg PO DAILY 02/20/24 02/20/24 History magnesium oxide 400 mg (241.3 mg 400 mg PO DAILY 02/20/24 02/20/24 History magnesium) tablet metoprolol succinate 50 mg 50 mg PO DAILY 02/20/24 02/20/24 History tablet,extended release 24 hr New Prescriptions to Start Prescriptions: Allergies Allergy/AdvReac Type Severity Reaction Status Date / Time pollen extracts Allergy Intermediate ASTHMA Verified 11/10/23 10:41 [POLLEN EXTRACTS] Results Laboratory Findings 02/23/24 07:30 02/23/24 07:30 Abnormal lab findings: Abnormal Labs 02/20/24 02/20/24 02/20/24 06:43 11:01 17:43 Hgb 12.1 L Hct MCV 79.7 L MCH 24.4 L MCHC 30.6 L RDW 17.9 H Plt Count [place] % (Auto) Potassium 5.4 H Chloride Carbon Dioxide BUN 24 H Creatinine Estimated GFR Est GFR ( Amer) Glucose 151 H POC Glucose 176 H 131 H AST 76 H NT-Pro-B Natriuret Pep 5080 H Total Protein 8.5 H Globulin 4.0 H 02/20/24 02/21/24 02/21/24 20:05 08:20 12:42 Hgb 11.3 L Hct 35.9 L MCV 78.4 L MCH 24.6 L MCHC 31.4 L RDW 17.7 H Plt Count 131 L D [place] % (Auto) Potassium Chloride 97 L Carbon Dioxide 31 H BUN 25 H Creatinine 1.20 H D Estimated GFR 43 L Est GFR ( Amer) 52 L D Glucose 112 H POC Glucose 129 H 116 H AST NT-Pro-B Natriuret Pep Total Protein Globulin 02/21/24 02/22/24 02/22/24 16:36 12:06 16:54 Hgb Hct MCV MCH MCHC RDW Plt Count [place] % (Auto) Potassium Chloride Carbon Dioxide BUN Creatinine Estimated GFR Est GFR ( Amer) Glucose POC Glucose 125 H 149 H 143 H AST NT-Pro-B Natriuret Pep Total Protein Globulin 02/22/24 02/23/24 02/23/24 20:18 07:30 16:55 Hgb 12.0 L Hct MCV 77.4 L MCH 23.9 L MCHC 30.9 L RDW 18.2 H Plt Count [place] % (Auto) 9.6 H Potassium Chloride 94 L Carbon Dioxide 36 H BUN 34 H D Creatinine 1.20 H Estimated GFR 43 L Est GFR ( Amer) 52 L Glucose 112 H POC Glucose 151 H 149 H AST NT-Pro-B Natriuret Pep Total Protein Globulin 02/23/24 02/24/24 20:55 06:47 Hgb Hct MCV MCH MCHC RDW Plt Count [place] % (Auto) Potassium Chloride Carbon Dioxide BUN Creatinine Estimated GFR Est GFR ( Amer) Glucose POC Glucose 156 H 125 H AST NT-Pro-B Natriuret Pep Total Protein Globulin Assessment and Plan *Assessment and plan (1) CAP (community acquired pneumonia): Status: Acute Category: Medical Code(s): J18.9 - Pneumonia, unspecified organism (2) Acute hypoxemic respiratory failure: Status: Acute Category: Medical Code(s): J96.01 - Acute respiratory failure with hypoxia (3) Mediastinal lymphadenopathy: Status: Acute Category: Medical Code(s): R59.0 - Localized enlarged lymph nodes Plan Ms. Nascimento is a 83-year-old female with reported history of hypertension congestive heart failure presented to ER with worsening respiratory distress and pulmonary was called for further evaluation and management. She does not use any oxygen supplementation at baseline during the daytime but using oxygen supplementation at 2 L with his CPAP. Carries a diagnosis of asthma and allergies receiving Advair inhaler. Afebrile. Hemodynamically stable. No evidence of leukocytosis. CTA upon admission, no evidence of pulmonary embolism. Motion artifact. Bilateral groundglass opacities with patchy airspace disease left lower and right lower lobes. No dense consolidative changes appreciated. Patient also noted lymphadenopathy station 4R and station 7. These lymphnode are increasing in size from prior but can well be reactive given airspace disease. CT also showed bilateral lower lobe predominant bronchial thickening and mucous plugging. No significant effusions noted Patient is being managed for community-acquired pneumonia and heart failure exacerbation receiving Ceftriaxone azithromycin and diuretics. Discussed with the patient regarding the possible differential diagnosis and therapeutic options for the noted lymph nodes and patient clearly stated that if this were to be malignant patient would not opt for any treatment at this point of time. Plan: -Respiratory viral PCR panel -Incentive spirometry and flutter valve -Initiate Trelegy 200 inhaler -Continue oxygen supplementation to maintain O2 saturation goal of 90 to 95%. Currently on 3 L saturating 89% to 92%. -Continue ceftriaxone and Azithromycin pending culture results -DuoNebs every 6 hours on as-needed basis -For the noted lymphadenopathy we will follow the patient in the clinic in 3 months with a repeat CT chest without contrast # Thank you for involving pulmonary in this patient care. Will continue to follow.
--- NOTE | 2024-02-24 10:21 | DIET.NUTRFU ---
Addendum entered by Bailey Harp RD, LD 02/24/24 10:24: 450ml output on 02/22. Plans to discharge to [facility] when ready. Original Note: notified provider of no noted BM since 02/19 admit. She is tolerating cardiac diet with good meal intake. She is currently on pain meds and ABT tx which maybe contributing to BM. Labs reviewed, renal labs worse on 02/22. Continues on diuretic tx
[2024-02-24] MEDS: SODIUM CHLORIDE 3% 15ML NEB 3 ML IH (10:44)
[2024-02-24] MEDS: AZITHROMYCIN 250MG TABLET 500 MG PO (10:46)
--- NOTE | 2024-02-24 10:47 | PC.NURSE ---
swab sent to lab
[2024-02-24 10:55] LABS: Adenovirus,PCR Not Detected (NotDetected); Bordetella Pertussis Not Detected (NotDetected); Chlamydophila Pneumoniae, PCR Not Detected (NotDetected); Coronavirus 19, PCR Not Detected (NotDetected); Coronavirus 229E Not Detected (NotDetected); Coronavirus NL63 Not Detected (NotDetected); Coronavirus OC43 Not Detected (NotDetected); Coronovirus HKU1,PCR Not Detected (NotDetected); Human Metapneumovirus Not Detected (NotDetected); Influenza A, PCR Not Detected (NotDetected); Influenza AH1, 2009 Not Detected (NotDetected); Influenza AH1, PCR Not Detected (NotDetected); Influenza AH3,PCR Not Detected (NotDetected); Influenza B, PCR Not Detected (NotDetected); Mycoplasma Pneumoniae, PCR Not Detected (NotDetected); Parainfluenza 1, PCR Not Detected (NotDetected); Parainfluenza 2, PCR Not Detected (NotDetected); Parainfluenza 3, PCR Not Detected (NotDetected); Parainfluenza 4, PCR Not Detected (NotDetected); Respiratory Syncytial Virus Not Detected (NotDetected); Rhinovirus/Enterovirus Not Detected (NotDetected)
[2024-02-24 11:45] LABS: POC Glucose,Bedside 101 (70-110)
[2024-02-24] MEDS: FLUTICASONE/UMECLIDIN/VILANTER 200/62.5/25MCG INHALER 1 PUFF IH (13:09)
--- NOTE | 2024-02-24 13:13 | PC.NURSE ---
Pt weaned down to 2L NC and is tolerating well at 98%.
[2024-02-24] MEDS: CEFTRIAXONE 1 GM 1 GM in 0.9 % SODIUM CHLORIDE 50 ML IV (14:02)
[2024-02-24 16:20] LABS: POC Glucose,Bedside 131 (70-110)
[2024-02-24] MEDS: MONTELUKAST SODIUM 10MG TAB 10 MG PO (17:42)
--- NOTE | 2024-02-24 18:10 | PC.NURSE ---
Pt tolerating 2L NC with O2 sat 93% and above this shift. Pt up to bedside chair for lunch with assist of 2. purewick in place. Pt now resting comfortably in bed with no complaints at this time.
[2024-02-24] MEDS: BISACODYL 5MG TABLET 5 MG PO (19:56)
[2024-02-24] MEDS: PRAVASTATIN 40MG TAB 40 MG PO (20:01)
[2024-02-25] VITALS: BP 128/66; PULSE 55; PULSE 56; RESP 18; TEMP 36.8; O2SAT 93
[2024-02-25 04:00] VITALS: BP 136/54; PULSE 51; PULSE 55; RESP 18; TEMP 36.6; O2SAT 95; BMI 33.6
--- NOTE | 2024-02-25 04:21 | PC.NURSE ---
Patient alert and oriented x4. Patient had to be woken up and encouraged to take deep breaths due to O2 stats dropping to low 80s in the middle of the night. Quickly come back up to 88-91% with deep breathing exercises. Currently on 2L NC. Lung sounds diminished bilaterally. Purewick in place. Patient given Dulcolax per MD Adamson. Bowel sounds active. As of now, patient has not had a bowel movement. She states her last bowel movement was 6-27-24 prior to arrival at [facility]. Patient has rested well this shift with no complaints or needs expressed. Call light within reach.
[2024-02-25] MEDS: FLUTICASONE/UMECLIDIN/VILANTER 200/62.5/25MCG INHALER 1 PUFF IH (06:23)
[2024-02-25] MEDS: METFORMIN 500MG TABLET 500 MG PO (06:35)
[2024-02-25 06:45] LABS: Basophils # 0.1 K/mm3 (0-0.2); Basophils % 0.9 % (0.1-2.0); Eosinophils # 0.2 K/mm3 (0.0-0.4); Eosinophils % 3.9 % (0.1-12.0); Hematocrit 32.9 % (37.0-47.0); Hemoglobin 11.4 g/dL (12.2-16.2); Lymphocytes # 1.3 K/mm3 (0.7-4.5); Lymphocytes % 21.7 % (10-50); Mean Corpuscular HGB Conc 34.7 g/dL (31.8-35.4); Mean Corpuscular Hemoglobin 27.5 pg (27.0-31.2); Mean Corpuscular Volume 79.1 fl (81-99); Mean Platelet Volume 9.6 fl (7.4-10.4); Monocytes # 0.5 K/mm3 (0.1-1.0); Monocytes % 9.3 % (1.7-9.3); Neutrophils # 3.8 K/mm3 (1.8-7.8); Neutrophils % 64.2 % (37.0-80.0); Platelet Count 150 K/mm3 (142-424); Red Blood Count 4.16 M/mm3 (4.20-5.40); Red Cell Distribution Width 18.7 % (11.5-17.5); White Blood Count 5.9 K/mm3 (4.8-10.8)
[2024-02-25 06:52] LABS: Chloride 95 mmol/L (98-107); Potassium 4.6 mmoL/L (3.5-5.1); Sodium 137 mmol/L (136-145)
[2024-02-25 06:55] LABS: Anion Gap 8.6 mEq/L (5-15); Blood Urea Nitrogen 44 mg/dl (7-17); Calcium 9.4 mg/dl (8.4-10.2); Carbon Dioxide 38 mmol/L (22.0-30.0); Creatinine Clearance Estimated 39 mL/min (50-200); Estimated Glomerular Filt Rate 31 ml/min (>60); GFR (African American) 37 ML/MIN (>60); Glucose 93 mg/dl (74-100)
[2024-02-25 07:29] VITALS: BP 135/62; PULSE 71; RESP 21; TEMP 37; O2SAT 92
--- NOTE | 2024-02-25 07:50 | EXP.PHA.PN ---
Subjective *Date: 02/25/24 *Time: 07:50 Medical Exam Vital signs and Labs for Last 24 Hours: Vital Signs Temp Pulse Pulse Resp BP Pulse Ox O2 Del Method 02/25/24 07:29 98.6 F 71 21 135/62 92 L Nasal Cannula 02/25/24 06:35 Nasal Cannula 02/25/24 05:05 Nasal Cannula 02/25/24 04:00 51 L 02/25/24 04:00 97.9 F 55 L 18 136/54 L 95 Nasal Cannula 02/25/24 02:52 Nasal Cannula 02/25/24 00:56 Nasal Cannula 02/25/24 00:00 56 L 02/25/24 00:00 98.3 F 55 L 18 128/66 93 L Nasal Cannula 02/24/24 22:57 Nasal Cannula 02/24/24 21:00 Nasal Cannula 02/24/24 20:00 72 02/24/24 20:00 93 L Nasal Cannula 02/24/24 19:54 99 F 70 17 130/58 L 93 L Nasal Cannula 02/24/24 19:00 Nasal Cannula 02/24/24 17:00 Nasal Cannula 02/24/24 16:00 70 02/24/24 16:00 97.4 F L 66 20 158/63 H 93 L Nasal Cannula 02/24/24 14:51 Nasal Cannula 02/24/24 13:11 98 Nasal Cannula 02/24/24 13:00 Nasal Cannula 02/24/24 12:00 75 02/24/24 12:00 99 F 67 18 136/56 L 93 L Nasal Cannula 02/24/24 11:00 Room Air 02/24/24 10:49 71 18 02/24/24 10:49 93 L Nasal Cannula 02/24/24 09:00 Nasal Cannula 02/24/24 08:00 Nasal Cannula 02/24/24 08:00 70 02/24/24 08:00 97.5 F L 70 18 142/78 H 96 Nasal Cannula O2 Flow Rate 02/25/24 07:29 2 02/25/24 06:35 2 02/25/24 05:05 2 02/25/24 04:00 02/25/24 04:00 2 02/25/24 02:52 2 02/25/24 00:56 2 02/25/24 00:00 02/25/24 00:00 2 02/24/24 22:57 2 02/24/24 21:00 2 02/24/24 20:00 02/24/24 20:00 2 02/24/24 19:54 2 02/24/24 19:00 2 02/24/24 17:00 2 02/24/24 16:00 02/24/24 16:00 2 02/24/24 14:51 2 02/24/24 13:11 3 02/24/24 13:00 3 02/24/24 12:00 02/24/24 12:00 4 02/24/24 11:00 02/24/24 10:49 02/24/24 10:49 3 02/24/24 09:00 3 02/24/24 08:00 3 02/24/24 08:00 02/24/24 08:00 4 Intake and Output 02/24/24 02/24/24 02/25/24 15:59 23:59 07:59 Intake Total 830 / 1470 400 / 1470 Output Total 300 / 1350 500 / 1350 950 / 950 Balance 530 / 120 -100 / 120 -950 / -950 Intake: Intake, Oral Amount 830 / 1470 400 / 1470 Output: Output, Urine Amount 300 / 1350 500 / 1350 950 / 950 Other: Number of Unmeasured Voids 0 0 Weight 94.892 kg Patient Weight 02/25/24 23:59 Weight 94.892 kg Laboratory Results - last 24 hr 02/24/24 10:44: Chlamy pneumoniae PCR Not detected, Adenovirus (PCR) Not detected, B. pertussis DNA (PCR) Not detected, Coronavirus OC43 (PCR) Not detected, Coronavirus HKU1 (PCR) Not detected, Coronavirus 229E (PCR) Not detected, SARS-CoV-2 (PCR) Not detected, Coronavirus NL63 (PCR) Not detected, Human Metapneumovir PCR Not detected, Influenza A (H1) PCR Not detected, Influ A (H1N1/09) PCR Not detected, Influenza A (H3) PCR Not detected, Influenza Type A (PCR) Not detected, Influenza Type B (PCR) Not detected, M. pneumoniae (PCR) Not detected, Parainfluenza 1 (PCR) Not detected, Parainfluenza 2 (PCR) Not detected, Parainfluenza 3 (PCR) Not detected, Parainfluenza 4 (PCR) Not detected, RSV (PCR) Not detected, Entero/Rhino (PCR) Not detected 02/24/24 11:38: POC Glucose 101 02/24/24 16:13: POC Glucose 131 H 02/25/24 05:45: WBC 5.9 D, RBC 4.16 L, Hgb 11.4 L, Hct 32.9 L, MCV 79.1 L, MCH 27.5, MCHC 34.7, RDW 18.7 H, Plt Count 150, MPV 9.6, Neut % (Auto) 64.2, Lymph % (Auto) 21.7, [place] % (Auto) 9.3, Eos % (Auto) 3.9, Baso % (Auto) 0.9, Neut # (Auto) 3.8, Lymph # (Auto) 1.3, [place] # (Auto) 0.5, Eos # (Auto) 0.2, Baso # (Auto) 0.1, Sodium 137, Potassium 4.6, Chloride 95 L, Carbon Dioxide 38 H, Anion Gap 8.6, BUN 44 H D, Creatinine 1.60 H D, Estimated Creat Clear 39, Estimated GFR 31 L, Est GFR ( Amer) 37 L D, Glucose 93, Calcium 9.4 I & O for Labs for Last 24 Hours: Intake & Output 02/22/24 02/23/24 02/24/24 02/25/24 23:59 23:59 23:59 23:59 Intake Total 1690 / 1690 1740 / 1980 1470 / 1470 Output Total 1450 / 1900 450 / 1000 1350 / 1350 950 / 950 Balance 240 / -210 1290 / 980 120 / 120 -950 / -950 Weight 93.667 kg 94.166 kg 94.12 kg 94.892 kg Microbiology Reports for the Last 24 Hours: Microbiology 02/24/24 11:38 Sputum - Expectorated Sputum Gram Stain - Final The patient's infection will respond to the chosen ABx?: Yes (SPUTUM CX PENDING, AFEBRILE OVER 24 HRS, WHITE BLOOD CELL COUNT 5.9.) Is the patient receiving the right drug, dose, and route?: Yes Could a more targeted ABx be ordered?: No How long ABx needed (days)?: 7
--- NOTE | 2024-02-25 07:53 | EXP.ACUTE.PN ---
Subjective *Date: 02/25/24 *Time: 08:46 Interval history: Patient has no difficulty with sleeping. She was up out of bed yesterday and did sit in the chair. She states she tolerated well. Nasal O2 is on 2 L/min and she is tolerated this well. She is eating well. She is voiding QS. Bowels have not moved. She denies chest pain and shortness of breath. She was seen by Dr. Ac yesterday. He noted results of CT scan showing that lymphoids increasing in size from prior but felt they could be reactive given airspace disease.; Also showed bilateral lower lobe predominant bronchial thickening and mucous plugging and no significant effusion. He did discuss with the patient possible differential diagnosis and therapeutic Options for the noted lymph nodes. Patient communicated with him that if this were to be a malignant process that she did not want any treatment at this point. Plan is for respiratory viral PCR panel, incentive spirometer and flutter valve, and to initiate Trelegy. He also recommended continuing oxygen to maintain a O2 sats 90 to 95%, to continues Rocephin and Zithromax pending culture results, and DuoNebs every 6 hours as needed. Noted to follow her in 3 months for lymphadenopathy with a repeat CT scan of the chest without contrast. Laboratory data reviewed. BUN is 44 and creatinine is 1.6. Hemoglobin is 11.4 with hematocrit of 32.9. White blood cell count is 5900.Respiratory panel was negative. Medical Exam Vital signs and Labs for Last 24 Hours: Vital Signs Temp Pulse Pulse Resp BP Pulse Ox O2 Del Method 02/25/24 07:29 98.6 F 71 21 135/62 92 L Nasal Cannula 02/25/24 06:35 Nasal Cannula 02/25/24 05:05 Nasal Cannula 02/25/24 04:00 51 L 02/25/24 04:00 97.9 F 55 L 18 136/54 L 95 Nasal Cannula 02/25/24 02:52 Nasal Cannula 02/25/24 00:56 Nasal Cannula 02/25/24 00:00 56 L 02/25/24 00:00 98.3 F 55 L 18 128/66 93 L Nasal Cannula 02/24/24 22:57 Nasal Cannula 02/24/24 21:00 Nasal Cannula 02/24/24 20:00 72 02/24/24 20:00 93 L Nasal Cannula 02/24/24 19:54 99 F 70 17 130/58 L 93 L Nasal Cannula 02/24/24 19:00 Nasal Cannula 02/24/24 17:00 Nasal Cannula 02/24/24 16:00 70 02/24/24 16:00 97.4 F L 66 20 158/63 H 93 L Nasal Cannula 02/24/24 14:51 Nasal Cannula 02/24/24 13:11 98 Nasal Cannula 02/24/24 13:00 Nasal Cannula 02/24/24 12:00 75 02/24/24 12:00 99 F 67 18 136/56 L 93 L Nasal Cannula 02/24/24 11:00 Room Air 02/24/24 10:49 71 18 02/24/24 10:49 93 L Nasal Cannula 02/24/24 09:00 Nasal Cannula 02/24/24 08:00 Nasal Cannula 02/24/24 08:00 70 02/24/24 08:00 97.5 F L 70 18 142/78 H 96 Nasal Cannula O2 Flow Rate 02/25/24 07:29 2 02/25/24 06:35 2 02/25/24 05:05 2 02/25/24 04:00 02/25/24 04:00 2 02/25/24 02:52 2 02/25/24 00:56 2 02/25/24 00:00 02/25/24 00:00 2 02/24/24 22:57 2 02/24/24 21:00 2 02/24/24 20:00 02/24/24 20:00 2 02/24/24 19:54 2 02/24/24 19:00 2 02/24/24 17:00 2 02/24/24 16:00 02/24/24 16:00 2 02/24/24 14:51 2 02/24/24 13:11 3 02/24/24 13:00 3 02/24/24 12:00 02/24/24 12:00 4 02/24/24 11:00 02/24/24 10:49 02/24/24 10:49 3 02/24/24 09:00 3 02/24/24 08:00 3 02/24/24 08:00 02/24/24 08:00 4 Intake and Output 07/01/24 07/02/24 07/02/24 19:59 03:59 11:59 Intake Total 750 / 750 Output Total 500 / 500 400 / 900 550 / 1450 Balance 250 / 250 -400 / -150 -550 / -700 Intake: Intake, Oral Amount 750 / 750 Output: Output, Urine Amount 500 / 500 400 / 900 550 / 1450 Other: Number of Unmeasured Voids 0 Weight 209 lb 3.2 oz Patient Weight 02/25/24 11:59 Weight 209 lb 3.2 oz Laboratory Results - last 24 hr 02/24/24 10:44: Chlamy pneumoniae PCR Not detected, Adenovirus (PCR) Not detected, B. pertussis DNA (PCR) Not detected, Coronavirus OC43 (PCR) Not detected, Coronavirus HKU1 (PCR) Not detected, Coronavirus 229E (PCR) Not detected, SARS-CoV-2 (PCR) Not detected, Coronavirus NL63 (PCR) Not detected, Human Metapneumovir PCR Not detected, Influenza A (H1) PCR Not detected, Influ A (H1N1/09) PCR Not detected, Influenza A (H3) PCR Not detected, Influenza Type A (PCR) Not detected, Influenza Type B (PCR) Not detected, M. pneumoniae (PCR) Not detected, Parainfluenza 1 (PCR) Not detected, Parainfluenza 2 (PCR) Not detected, Parainfluenza 3 (PCR) Not detected, Parainfluenza 4 (PCR) Not detected, RSV (PCR) Not detected, Entero/Rhino (PCR) Not detected 02/24/24 11:38: POC Glucose 101 02/24/24 16:13: POC Glucose 131 H 02/25/24 05:45: WBC 5.9 D, RBC 4.16 L, Hgb 11.4 L, Hct 32.9 L, MCV 79.1 L, MCH 27.5, MCHC 34.7, RDW 18.7 H, Plt Count 150, MPV 9.6, Neut % (Auto) 64.2, Lymph % (Auto) 21.7, [place] % (Auto) 9.3, Eos % (Auto) 3.9, Baso % (Auto) 0.9, Neut # (Auto) 3.8, Lymph # (Auto) 1.3, [place] # (Auto) 0.5, Eos # (Auto) 0.2, Baso # (Auto) 0.1, Sodium 137, Potassium 4.6, Chloride 95 L, Carbon Dioxide 38 H, Anion Gap 8.6, BUN 44 H D, Creatinine 1.60 H D, Estimated Creat Clear 39, Estimated GFR 31 L, Est GFR ( Amer) 37 L D, Glucose 93, Calcium 9.4 I & O for Labs for Last 24 Hours: Intake & Output 02/22/24 02/23/24 02/24/24 02/25/24 11:59 11:59 11:59 11:59 Intake Total 910 / 910 1840 / 1840 1950 / 1950 750 / 750 Output Total 0 / 0 1900 / 1900 850 / 850 1450 / 1450 Balance 910 / 910 -60 / -60 1100 / 1100 -700 / -700 Weight 206 lb 8 oz 207 lb 9.6 oz 207 lb 8 oz 209 lb 3.2 oz Microbiology Reports for the Last 24 Hours: Microbiology 02/24/24 11:38 Sputum - Expectorated Sputum Gram Stain - Final Constitutional: Present no acute distress Comment:: Sitting up in the bed eating her breakfast Respiratory: Present CTA bilaterally (Aand P with diminished breath sounds posteriorly) Cardiac: Present Reg Rate and Rhythm GI: Present soft and normal bowel sounds; Absent tenderness or guarding Extremities: Absent tenderness or edema Neuro: Present alert, awake and oriented x 3 Additional Findings:: Patient does plan to go to [facility]. She does have a bed. Thus possible transfer today for further rehab. Assessment and Plan *Assessment and plan (1) CAP (community acquired pneumonia): Status: Acute Category: Medical Code(s): J18.9 - Pneumonia, unspecified organism (2) Acute hypoxemic respiratory failure: Status: Acute Category: Medical Code(s): J96.01 - Acute respiratory failure with hypoxia (3) Mediastinal lymphadenopathy: Status: Acute Category: Medical Code(s): R59.0 - Localized enlarged lymph nodes (4) Paratracheal lymphadenopathy: Status: Acute Category: Medical Code(s): R59.0 - Localized enlarged lymph nodes (5) Sleep apnea: Status: Acute Category: Medical Code(s): G47.30 - Sleep apnea, unspecified (6) RICHIE (acute kidney injury): Status: Acute Category: Medical Code(s): N17.9 - Acute kidney failure, unspecified (7) Hypertensive urgency: Status: Acute Category: Medical Code(s): I16.0 - Hypertensive urgency (8) Elevated brain natriuretic peptide (BNP) level: Status: Acute Category: Medical Code(s): R79.89 - Other specified abnormal findings of blood chemistry (9) Acute hypoxic respiratory failure: Status: Acute Category: Medical Code(s): J96.01 - Acute respiratory failure with hypoxia (10) Acute exacerbation of CHF (congestive heart failure): Status: Acute Category: Medical Code(s): I50.9 - Heart failure, unspecified (11) General weakness: Status: Acute Category: Medical Code(s): R53.1 - Weakness (12) Depression: Status: Acute Category: Medical Code(s): F32.A - Depression, unspecified (13) GERD (gastroesophageal reflux disease): Status: Acute Category: Medical Code(s): K21.9 - Gastro-esophageal reflux disease without esophagitis (14) Other abnormal blood chemistry: Status: Acute Category: Medical Code(s): R79.89 - Other specified abnormal findings of blood chemistry Plan Pt is stable for ongoing rehab at [facility]. Dr. Adamson entry - Saw patient, agree with above note. OK for discharge to [facility] today, will cont. supplemental oxygen at 2 L/min per NC, oral antibiotics and daily Lasix.
[2024-02-25 08:00] VITALS: PULSE 70; O2SAT 92
--- NOTE | 2024-02-25 08:03 | EXP.DC.SUM ---
General Admission date:: 02/20/24 Discharge date: 02/25/24 HPI HPI HPI: Patient is a an 83-year-old female with past medical history hypertension, CHF not on home oxygen presenting with shortness of breath. Patient states that she normally wears a CPAP at night and did wear it this evening but was feeling shortness of breath, got up to walk to the bathroom which exacerbated her shortness of breath prompting her to call EMS. They do note that she had an oxygen saturation in the 70s on room air on their arrival and they placed patient on supplemental oxygen and on 4 L. Patient does note improvement in her symptoms since onset after oxygen. Denies any fevers or chills, chest pain, abdominal pain. (above as per ER physician) She was evaluated in the ER and her BNP was elevated. CXR showed pulmonary edema. She was given lasix. Her BP was elevated and she was given nitro. She was placed on oxygen and admitted for futher evaluation and treatment. Hospital Course Hospital Course Hospital Course: On admission BNP was elevated and chest x-ray showed pulmonary edema. She was given IV Lasix and started on 40 mg of po Lasix daily. With elevated blood pressure she was given nitro and placed on oxygen. She was started on DuoNebs for wheezing. Patient was noted to have a history of hypoxic respiratory failure using supplemental oxygen at night. She was requiring continuous O2 to maintain adequate O2 sats. She was started on diuretics and blood pressure medicine and her shortness of breath improved. She did have a great response to the diuretics. PT and OT were consulted. Blood pressure did improve. She was continued on O2 at 4 L/min per nasal cannula. At this point patient did agree to short-term placement at discharge. CTA of the chest showed possible multiple focal pneumonia and an enlarging paratracheal lymph node. Antibiotics were initiated. By 02/24/2024 patient stated she felt much better. She was able to walk and sit up in a chair while working with physical therapy. At this point she denied any shortness of breath and chest pain. She was seen by pulmonology who recommended to continue with her antibiotics, O2 supplementation, and DuoNebs every 6 hours. He did order respiratory viral panel which was negative. He encouraged incentive spirometer and flutter valve. He also initiated Trelegy 200 inhaler. And on 02/25/2024 patient continued to feel well. She continued to work with rehab. She denied any cough and shortness of breath. O2 was weaned down to 2 L per nasal cannula with adequate O2 sats. At this point she was ready for discharge to [facility] for ongoing rehab. Exam Data for Last 24 hours Vital signs and Labs for Last 24 Hours: Temp Pulse Resp BP Pulse Ox O2 Del Method O2 Flow Rate 98.6 F 71 21 135/62 92 L Nasal Cannula 2 02/25/24 07:02/25/24 07:02/25/24 07:02/25/24 07:02/25/24 07:02/25/24 07:02/25/24 07:29 Laboratory Results - last 24 hr 02/24/24 10:44: Chlamy pneumoniae PCR Not detected, Adenovirus (PCR) Not detected, B. pertussis DNA (PCR) Not detected, Coronavirus OC43 (PCR) Not detected, Coronavirus HKU1 (PCR) Not detected, Coronavirus 229E (PCR) Not detected, SARS-CoV-2 (PCR) Not detected, Coronavirus NL63 (PCR) Not detected, Human Metapneumovir PCR Not detected, Influenza A (H1) PCR Not detected, Influ A (H1N1/09) PCR Not detected, Influenza A (H3) PCR Not detected, Influenza Type A (PCR) Not detected, Influenza Type B (PCR) Not detected, M. pneumoniae (PCR) Not detected, Parainfluenza 1 (PCR) Not detected, Parainfluenza 2 (PCR) Not detected, Parainfluenza 3 (PCR) Not detected, Parainfluenza 4 (PCR) Not detected, RSV (PCR) Not detected, Entero/Rhino (PCR) Not detected 02/24/24 11:38: POC Glucose 101 02/24/24 16:13: POC Glucose 131 H 02/25/24 05:45: WBC 5.9 D, RBC 4.16 L, Hgb 11.4 L, Hct 32.9 L, MCV 79.1 L, MCH 27.5, MCHC 34.7, RDW 18.7 H, Plt Count 150, MPV 9.6, Neut % (Auto) 64.2, Lymph % (Auto) 21.7, [place] % (Auto) 9.3, Eos % (Auto) 3.9, Baso % (Auto) 0.9, Neut # (Auto) 3.8, Lymph # (Auto) 1.3, [place] # (Auto) 0.5, Eos # (Auto) 0.2, Baso # (Auto) 0.1, Sodium 137, Potassium 4.6, Chloride 95 L, Carbon Dioxide 38 H, Anion Gap 8.6, BUN 44 H D, Creatinine 1.60 H D, Estimated Creat Clear 39, Estimated GFR 31 L, Est GFR ( Amer) 37 L D, Glucose 93, Calcium 9.4 I & O for Last 24 hours: Intake & Output 02/22/24 02/23/24 02/24/24 02/25/24 11:59 11:59 11:59 11:59 Intake Total 910 / 910 1840 / 1840 1950 / 1950 750 / 750 Output Total 0 / 0 1900 / 1900 850 / 850 1450 / 1450 Balance 910 / 910 -60 / -60 1100 / 1100 -700 / -700 Weight 206 lb 8 oz 207 lb 9.6 oz 207 lb 8 oz 209 lb 3.2 oz Microbiology Reports for the Last 24 Hours: Microbiology 02/24/24 11:38 Sputum - Expectorated Sputum Gram Stain - Final Constitutional Constitutional: no acute distress Comments: Sitting up in the bed and eating her breakfast *Routine Respiratory Exam Respiratory: Present CTA bilaterally (Anteriorly and posteriorly with diminished breath sounds) *Routine Cardiovascular Exam Cardiovascular: Present RRR *Routine Abdominal Exam Abdominal: Present soft and normoactive bowel sounds; Absent tenderness *Routine Extremities Exam Extremities: Absent edema or calf tenderness *Routine Neurological Exam Neurological: Present alert, oriented X3 and normal speech Results Data Completed and Pending Completed studies during hospitalization [Text1]: 02/22/2024 CTA of the chest IMPRESSION: 1. No evidence of pulmonary embolus to the segmental level. 2. Pathologic node anterior to the trachea 3 x 2.3 cm . Recommend further evaluation 3. Patchy ground-glass opacities in the left upper lobe and lingula and both lower lobes may represent multifocal pneumonia. 4. Gallstones in the gallbladder.. 02/20/2024 echocardiogram Conclusion Technically difficult study due to poor acoustic windows. Normal biventricular systolic function. Mild RV dilation. No significant valvular stenosis or regurgitation. 02/20/2024 chest x-ray IMPRESSION: No acute abnormality. Labs on day of discharge: Labs from last 24 hours 02/25/24 02/24/24 02/24/24 05:45 16:13 11:38 WBC 5.9 D RBC 4.16 L Hgb 11.4 L Hct 32.9 L MCV 79.1 L MCH 27.5 MCHC 34.7 RDW 18.7 H Plt Count 150 MPV 9.6 Neut % (Auto) 64.2 Lymph % (Auto) 21.7 [place] % (Auto) 9.3 Eos % (Auto) 3.9 Baso % (Auto) 0.9 Neut # (Auto) 3.8 Lymph # (Auto) 1.3 [place] # (Auto) 0.5 Eos # (Auto) 0.2 Baso # (Auto) 0.1 Sodium 137 Potassium 4.6 Chloride 95 L Carbon Dioxide 38 H Anion Gap 8.6 BUN 44 H D Creatinine 1.60 H D Estimated Creat Clear 39 Estimated GFR 31 L Est GFR ( Amer) 37 L D Glucose 93 POC Glucose 131 H 101 Calcium 9.4 Chlamy pneumoniae PCR Adenovirus (PCR) B. pertussis DNA (PCR) Coronavirus OC43 (PCR) Coronavirus HKU1 (PCR) Coronavirus 229E (PCR) SARS-CoV-2 (PCR) Coronavirus NL63 (PCR) Human Metapneumovir PCR Influenza A (H1) PCR Influ A (H1N1/09) PCR Influenza A (H3) PCR Influenza Type A (PCR) Influenza Type B (PCR) M. pneumoniae (PCR) Parainfluenza 1 (PCR) Parainfluenza 2 (PCR) Parainfluenza 3 (PCR) Parainfluenza 4 (PCR) RSV (PCR) Entero/Rhino (PCR) 02/24/24 10:44 WBC RBC Hgb Hct MCV MCH MCHC RDW Plt Count MPV Neut % (Auto) Lymph % (Auto) [place] % (Auto) Eos % (Auto) Baso % (Auto) Neut # (Auto) Lymph # (Auto) [place] # (Auto) Eos # (Auto) Baso # (Auto) Sodium Potassium Chloride Carbon Dioxide Anion Gap BUN Creatinine Estimated Creat Clear Estimated GFR Est GFR ( Amer) Glucose POC Glucose Calcium Chlamy pneumoniae PCR Not detected Adenovirus (PCR) Not detected B. pertussis DNA (PCR) Not detected Coronavirus OC43 (PCR) Not detected Coronavirus HKU1 (PCR) Not detected Coronavirus 229E (PCR) Not detected SARS-CoV-2 (PCR) Not detected Coronavirus NL63 (PCR) Not detected Human Metapneumovir PCR Not detected Influenza A (H1) PCR Not detected Influ A (H1N1/09) PCR Not detected Influenza A (H3) PCR Not detected Influenza Type A (PCR) Not detected Influenza Type B (PCR) Not detected M. pneumoniae (PCR) Not detected Parainfluenza 1 (PCR) Not detected Parainfluenza 2 (PCR) Not detected Parainfluenza 3 (PCR) Not detected Parainfluenza 4 (PCR) Not detected RSV (PCR) Not detected Entero/Rhino (PCR) Not detected DS: Diagnosis Discharge Diagnosis (1) CAP (community acquired pneumonia): Status: Acute Code(s): J18.9 - Pneumonia, unspecified organism (2) Acute hypoxemic respiratory failure: Status: Acute Code(s): J96.01 - Acute respiratory failure with hypoxia (3) Mediastinal lymphadenopathy: Status: Acute Code(s): R59.0 - Localized enlarged lymph nodes (4) Sleep apnea: Status: Acute Code(s): G47.30 - Sleep apnea, unspecified (5) Diabetes: Status: Acute Code(s): E11.9 - Type 2 diabetes mellitus without complications (6) Neuropathy: Status: Acute Code(s): G62.9 - Polyneuropathy, unspecified (7) Depression: Status: Acute Code(s): F32.A - Depression, unspecified (8) GERD (gastroesophageal reflux disease): Status: Acute Code(s): K21.9 - Gastro-esophageal reflux disease without esophagitis (9) Hyperlipidemia: Status: Acute Code(s): E78.5 - Hyperlipidemia, unspecified (10) RICHIE (acute kidney injury): Status: Acute Code(s): N17.9 - Acute kidney failure, unspecified (11) Elevated brain natriuretic peptide (BNP) level: Status: Acute Code(s): R79.89 - Other specified abnormal findings of blood chemistry (12) General weakness: Status: Acute Code(s): R53.1 - Weakness (13) Acute hypoxic respiratory failure: Status: Acute Code(s): J96.01 - Acute respiratory failure with hypoxia (14) Acute exacerbation of CHF (congestive heart failure): Status: Acute Code(s): I50.9 - Heart failure, unspecified Meds Home Medications and Allergies Home Medications Medication Instructions Recorded Confirmed Type celecoxib 200 mg capsule 200 mg PO DAILY 03/06/18 02/20/24 History metformin 500 mg tablet 500 mg PO BIDWMEAL 03/06/18 02/20/24 History montelukast 10 mg tablet 10 mg PO PM 03/06/18 02/20/24 History pregabalin 75 mg capsule (Lyrica) 75 mg PO BID 03/06/18 02/20/24 History simvastatin 20 mg tablet 20 mg PO HS 03/06/18 02/20/24 History escitalopram oxalate 20 mg tablet 20 mg PO DAILY 11/10/23 02/20/24 History fluticasone 250 mcg-salmeterol 50 1 ea inhalation BID 11/10/23 02/20/24 History mcg/dose blistr powdr for inhalation (Wixela Inhub) oxybutynin chloride 10 mg 20 mg PO DAILY 11/10/23 02/20/24 History tablet,extended release 24 hr tizanidine 4 mg capsule 4 mg PO HSP PRN muscle spasticity 11/10/23 02/20/24 History mv-mn-folic 200 mcg-vit K 15 1 cap PO BID 11/11/23 02/20/24 History mcg-lutein 5 mg-zeaxanthin 1 mg capsule (PreserVision AREDS 2 Plus Multivit) magnesium oxide 400 mg (241.3 mg 400 mg PO DAILY 02/20/24 02/20/24 History magnesium) tablet acetaminophen 325 mg tablet 650 mg (2 x 325 mg) PO Q4HP PRN 02/25/24 Rx Fever Or Mild Pain (1-3) #1 tab azithromycin 250 mg tablet 500 mg (2 x 250 mg) PO DAILY #10 02/25/24 Rx tabs famotidine 20 mg tablet 40 mg (2 x 20 mg) PO DAILY 30 days 02/25/24 Rx #60 tabs furosemide 20 mg tablet (Lasix) 20 mg PO DAILY #30 tabs 02/25/24 Rx irbesartan 300 mg tablet 300 mg PO DAILY #30 tabs 02/25/24 Rx New Prescriptions to Start Prescriptions: acetaminophen [place],Allan azithromycin Reno,Allan famotidine Ren[place],Allan furosemide [Lasix] [place],Allan irbesartan [place],Allan Allergies Allergy/AdvReac Type Severity Reaction Status Date / Time pollen extracts Allergy Intermediate ASTHMA Verified 11/10/23 10:41 [POLLEN EXTRACTS] Discharge Plan Disposition Patient Disposition: Xfer SNF Condition: Fair Discharge Order Discharge Orders: Discharge Order (Routine); Ordered 02/25/24 Ordered By: Allan Adamson Follow up Plan Follow up with: Allan Adamson MD [Primary Care Provider] - Enter time for follow up (At [facility]) Prescriptions/Medication Reconciliation: New acetaminophen 325 mg Tablet 650 mg PO Q4HP PRN (Reason: Fever Or Mild Pain (1-3)) Qty: 1 0RF azithromycin 250 mg Tablet 500 mg PO DAILY Qty: 10 0RF famotidine 20 mg Tablet 40 mg PO DAILY 30 Days Qty: 60 0RF irbesartan 300 mg Tablet 300 mg PO DAILY Qty: 30 0RF furosemide [Lasix] 20 mg tablet 20 mg PO DAILY Qty: 30 0RF Continued fluticasone propion-salmeterol [Wixela Inhub] 250-50 mcg/dose blister with device 1 ea INHALATION BID oxybutynin chloride 10 mg tablet extended release 24hr 20 mg PO DAILY Patient Comments: TAKE 2 TABLETS BY MOUTH ONCE DAILY escitalopram oxalate 20 mg tablet 20 mg PO DAILY Patient Comments: TAKE 1 TABLET BY MOUTH ONCE DAILY tizanidine 4 mg capsule 4 mg PO HSP PRN (Reason: muscle spasticity) PreserVision AREDS 2 Plus MV 200 mcg-15 mcg- 5 mg-1 mg Capsule 1 cap PO BID magnesium oxide 400 mg (241.3 mg magnesium) tablet 400 mg PO DAILY Patient Comments: TAKE 1 TABLET BY MOUTH ONCE DAILY celecoxib 200 capsule 200 mg PO DAILY metformin 500 MG tablet 500 mg PO BIDWMEAL simvastatin 20 tablet 20 mg PO HS montelukast 10 MG tablet 10 mg PO PM pregabalin [Lyrica] 75 capsule 75 mg PO BID Discontinued metoprolol succinate 50 mg tablet extended release 24 hr 50 mg PO DAILY Patient Comments: TAKE 1 TABLET BY MOUTH ONCE DAILY amlodipine 5 mg tablet 5 mg PO DAILY lisinopril 20 tablet 20 mg PO DAILY Problem Reconciliation Problems Reviewed?: Yes Patient Discharge Instructions ACTIVITY: Continue current activity DIET: continue same diet Additional Instructions: Supplemental oxygen at 2L/min/NC. Please check CBC and BMP on 03/02/24 Patient Instructions: DI for Heart Failure, DI for Respiratory Failure Providers Primary Care Provider: Allan Adamson Admit Provider: Allan Adamson Attending Provider: Allan Adamson
[2024-02-25] MEDS: ENOXAPARIN 40MG/0.4ML SYRINGE 40 MG SQ (09:22)
[2024-02-25] MEDS: AZITHROMYCIN 250MG TABLET 500 MG PO (09:23)
[2024-02-25] MEDS: CITALOPRAM 40MG TABLET 40 MG PO (09:25)
[2024-02-25] MEDS: FAMOTIDINE 20MG TABLET 40 MG PO (09:25)
[2024-02-25] MEDS: FUROSEMIDE 40 MG TABLET PO (09:26)
[2024-02-25] MEDS: IRBESARTAN 300MG TABLET 300 MG PO (09:28)
[2024-02-25] MEDS: OXYBUTYNIN 5MG TAB 10 MG PO (09:29)
[2024-02-25] MEDS: FLUTICASONE PROP 50MCG NASAL SPRAY 16GM 1 SPRAY NS (09:30)
--- NOTE | 2024-02-25 09:30 | EXP.PULM.PN ---
Subjective *Date: 02/25/24 *Time: 10:23 Interval history: No acute respiratory events overnight. Patient admits continued improvement in her respiratory symptoms. Pulmonology Exam Inpatient Vital signs and Labs for Last 24 Hours: Temp Pulse Resp BP Pulse Ox O2 Del Method O2 Flow Rate 98.6 F 71 21 135/62 92 L Nasal Cannula 2 02/25/24 07:29 02/25/24 07:29 02/25/24 07:29 02/25/24 07:29 02/25/24 08:00 02/25/24 08:00 02/25/24 08:00 Laboratory Results - last 24 hr 02/24/24 10:44: Chlamy pneumoniae PCR Not detected, Adenovirus (PCR) Not detected, B. pertussis DNA (PCR) Not detected, Coronavirus OC43 (PCR) Not detected, Coronavirus HKU1 (PCR) Not detected, Coronavirus 229E (PCR) Not detected, SARS-CoV-2 (PCR) Not detected, Coronavirus NL63 (PCR) Not detected, Human Metapneumovir PCR Not detected, Influenza A (H1) PCR Not detected, Influ A (H1N1/09) PCR Not detected, Influenza A (H3) PCR Not detected, Influenza Type A (PCR) Not detected, Influenza Type B (PCR) Not detected, M. pneumoniae (PCR) Not detected, Parainfluenza 1 (PCR) Not detected, Parainfluenza 2 (PCR) Not detected, Parainfluenza 3 (PCR) Not detected, Parainfluenza 4 (PCR) Not detected, RSV (PCR) Not detected, Entero/Rhino (PCR) Not detected 02/24/24 11:38: POC Glucose 101 02/24/24 16:13: POC Glucose 131 H 02/25/24 05:45: WBC 5.9 D, RBC 4.16 L, Hgb 11.4 L, Hct 32.9 L, MCV 79.1 L, MCH 27.5, MCHC 34.7, RDW 18.7 H, Plt Count 150, MPV 9.6, Neut % (Auto) 64.2, Lymph % (Auto) 21.7, [place] % (Auto) 9.3, Eos % (Auto) 3.9, Baso % (Auto) 0.9, Neut # (Auto) 3.8, Lymph # (Auto) 1.3, [place] # (Auto) 0.5, Eos # (Auto) 0.2, Baso # (Auto) 0.1, Sodium 137, Potassium 4.6, Chloride 95 L, Carbon Dioxide 38 H, Anion Gap 8.6, BUN 44 H D, Creatinine 1.60 H D, Estimated Creat Clear 39, Estimated GFR 31 L, Est GFR ( Amer) 37 L D, Glucose 93, Calcium 9.4 Temp Pulse Resp BP Pulse Ox O2 Del Method O2 Flow Rate 97.5 F L 70 18 142/78 H 96 Nasal Cannula 3 02/24/24 08:00 02/24/24 08:00 02/24/24 08:00 02/24/24 08:00 02/24/24 08:00 02/24/24 09:00 02/24/24 09:00 Laboratory Results - last 24 hr 02/23/24 16:55: POC Glucose 149 H 02/23/24 20:55: POC Glucose 156 H 02/24/24 06:47: POC Glucose 125 H I & O for Labs for Last 24 Hours: Intake & Output 02/22/24 02/23/24 02/24/24 02/25/24 23:59 23:59 23:59 23:59 Intake Total 1690 / 1690 1740 / 1980 1470 / 1470 235 / 235 Output Total 1450 / 1900 450 / 1000 1350 / 1350 950 / 950 Balance 240 / -210 1290 / 980 120 / 120 -715 / -715 Weight 206 lb 8 oz 207 lb 9.6 oz 207 lb 8 oz 209 lb 3.2 oz Intake & Output 02/21/24 02/22/24 02/23/24 02/24/24 23:59 23:59 23:59 23:59 Intake Total 940 / 940 1690 / 1690 1740 / 1980 240 / 240 Output Total 655 / 655 1450 / 1900 450 / 1000 550 / 550 Balance 285 / 285 240 / -210 1290 / 980 -310 / -310 Weight 214 lb 4.629 oz 206 lb 8 oz 207 lb 9.6 oz 207 lb 8 oz Microbiology Reports for the Last 24 Hours: Microbiology 02/24/24 11:38 Sputum - Expectorated Sputum Gram Stain - Final Constitutional: Present moderate distress Head: Present normocephalic and atraumatic ENT: Present normal exam, normal oropharynx and mucous membranes moist Neck: Present normal inspection and full ROM Respiratory: Present respiratory distress, rhonchi, crackles, diminished air movement and able to speak in complete sentences; Absent wheezes Cardiac: Present S1/S2, Tachycardia and radial pulses present GI: Present soft and distention; Absent tenderness or guarding Rectal (female): Present deferred (female): Present deferred Skin: Present intact; Absent cyanosis or jaundice Neuro: Present alert, awake and oriented x 3 Extremities: Present normal inspection; Absent clubbing or cyanosis Psychiatric: Present normal affect and cooperative Assessment and Plan *Assessment and plan (1) CAP (community acquired pneumonia): Status: Acute Category: Medical Code(s): J18.9 - Pneumonia, unspecified organism (2) Acute hypoxemic respiratory failure: Status: Acute Category: Medical Code(s): J96.01 - Acute respiratory failure with hypoxia (3) Mediastinal lymphadenopathy: Status: Acute Category: Medical Code(s): R59.0 - Localized enlarged lymph nodes Plan Ms. Nascimento is a 83-year-old female with reported history of hypertension congestive heart failure presented to ER with worsening respiratory distress and pulmonary was called for further evaluation and management. She does not use any oxygen supplementation at baseline during the daytime but using oxygen supplementation at 2 L with his CPAP. Carries a diagnosis of asthma and allergies receiving Advair inhaler. Afebrile. Hemodynamically stable. No evidence of leukocytosis. CTA upon admission, no evidence of pulmonary embolism. Motion artifact. Bilateral groundglass opacities with patchy airspace disease left lower and right lower lobes. No dense consolidative changes appreciated. Patient also noted lymphadenopathy station 4R and station 7. These lymphnode are increasing in size from prior but can well be reactive given airspace disease. CT also showed bilateral lower lobe predominant bronchial thickening and mucous plugging. No significant effusions noted Patient is being managed for community-acquired pneumonia and heart failure exacerbation receiving Ceftriaxone azithromycin and diuretics. Discussed with the patient regarding the possible differential diagnosis and therapeutic options for the noted lymph nodes and patient clearly stated that if this were to be malignant patient would not opt for any treatment at this point of time. Interval update: Complaints of respiratory viral PCR panel negative. Tolerating new Trelegy inhaler well. Plan: -Incentive spirometry and flutter valve -Continue Trelegy 200 inhaler -Continue oxygen supplementation to maintain O2 saturation goal of 90 to 95%. -Continue ceftriaxone and Azithromycin pending culture results -DuoNebs every 6 hours on as-needed basis -For the noted lymphadenopathy we will follow the patient in the clinic in 3 months with a repeat CT chest without contrast # Thank you for involving pulmonary in this patient care. Will follow the patient in pulmonary clinic 5 to 10 days postdischarge.
[2024-02-25] MEDS: PREGABALIN 25MG CAPSULE 75 MG PO (09:56)
== END 2024-02-25 11:31 | DRG 193 ==
LOC: ER 07:42 → 2ND 07:51
PROVIDERS: Internal Medicine Pulmonary Disease; Physician Assistant; Admitting Provider Family Medicine; Emergency Provider Emergency Medicine; PCP Family Medicine; Visit Provider Family Medicine
DX: J18.9 Pneumonia, unspecified organism (principal); J96.01 Acute respiratory failure with hypoxia; N17.9 Acute kidney failure, unspecified; I16.1 Hypertensive emergency; I11.0 Hypertensive heart disease with heart failure; I50.9 Heart failure, unspecified; G47.30 Sleep apnea, unspecified; E11.42 Type 2 diabetes mellitus with diabetic polyneuropathy; K21.9 Gastro-esophageal reflux disease without esophagitis; F32.A Depression, unspecified; E78.5 Hyperlipidemia, unspecified; Z96.662 Presence of left artificial ankle joint; Z96.641 Presence of right artificial hip joint; Z96.651 Presence of right artificial knee joint; Z79.84 Long term (current) use of oral hypoglycemic drugs
CPT/HCPCS: 36415; 71045; 71275; 80048; 80053; 82962; 83880; 84484; 85025; 87070; 87205; 87581; 87632; 87635; 87798; 93005; 93306; 94761; 97110; 97116; 97162; 97166; 97530; J0456; J0696; J1650; J1940; J7030; J7620; Q9967

== ENCOUNTER 2024-05-04 11:38 | Outpatient (POV) | payer MEDICARE, BC, SELFPAY ==
--- NOTE | 2024-05-04 12:14 | EXP.PAIN.SOA ---
[facility] Disclaimer: The information contained in this section may have been updated after the patient was seen, as this information can be updated by other users. 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 Today she rates her pain a 5 out of 10. Patient denies any new trauma or injury. She does state that she still continues to have the chronic low back and leg symptoms that is worse with increased activity. Patient does state that the increased walking to our office today has flared up some of her pain. Patient is currently managed from our office with tizanidine 4 mg at bedtime and pregabalin from her PCP. She does state that she noticed her recently that she felt like the 4 mg were causing more hallucinations. Patient was thinking that in the past she has been on 2 mg. Her Gabriele has been reviewed and is appropriate. Review of Systems: General: No recent weight changes, no fever, no sleep disturbances Respiratory: No cough, no shortness of air, no recurring pulmonary infections Cardiovascular/peripheral vascular: No chest pain, no palpitations, no edema, no shortness of breath Gastrointestinal: No new onset incontinence, normal bowel movements reported Genitourinary: No new onset incontinence Musculoskeletal: Low back pain Psychiatric: [Normal mood/affect] Neurological: [Denies weakness in extremities], [denies balance issues] Pain at rest (0-10 scale): 5 Objective Objective:: Physical Exam: General: Alert and oriented x3, no acute distress, pleasant and cooperative Lungs: Respirations even and unlabored, symmetrical chest expansion Eyes: PERRL Musculoskeletal: Flexion and extension of lumbar [spine] somewhat guarded secondary to pain, [antalgic gait noted] Neurological: Speech clear, no gross sensory deficit Has patient had previous pain injection?: No Conservative treatment options previously tried: Home exercise plan Length of treatment: Longer than 6 weeks Meds Home Medications and Allergies Home Medications ?Medication ?Instructions ?Recorded ?Confirmed ?Type celecoxib 200 mg capsule 200 mg PO DAILY 03/06/18 02/20/24 History metformin 500 mg tablet 500 mg PO BIDWMEAL 03/06/18 02/20/24 History montelukast 10 mg tablet 10 mg PO PM 03/06/18 02/20/24 History pregabalin 75 mg capsule (Lyrica) 75 mg PO BID 03/06/18 02/20/24 History simvastatin 20 mg tablet 20 mg PO HS 03/06/18 02/20/24 History escitalopram oxalate 20 mg tablet 20 mg PO DAILY 11/10/23 02/20/24 History fluticasone 250 mcg-salmeterol 50 1 ea inhalation BID 11/10/23 02/20/24 History mcg/dose blistr powdr for inhalation (Wixela Inhub) oxybutynin chloride 10 mg 20 mg PO DAILY 11/10/23 02/20/24 History tablet,extended release 24 hr tizanidine 4 mg capsule 4 mg PO HSP PRN muscle spasticity 11/10/23 02/20/24 History mv-mn-folic 200 mcg-vit K 15 1 cap PO BID 11/11/23 02/20/24 History mcg-lutein 5 mg-zeaxanthin 1 mg capsule (PreserVision AREDS 2 Plus Multivit) magnesium oxide 400 mg (241.3 mg 400 mg PO DAILY 02/20/24 02/20/24 Hi
[2024-05-04 12:52] VITALS: BP 133/64; PULSE 65; RESP 16; O2SAT 92; BMI 35.0
== END 2024-05-04 23:59 | disposition home or self-care (01) ==
PROVIDERS: PCP Family Medicine; Visit Provider Nurse Practitioner Family
DX: M51.16 Intervertebral disc disorders with radiculopathy, lumbar region (principal); Z79.899 Other long term (current) drug therapy
CPT/HCPCS: 99212; G0463

== ENCOUNTER 2024-05-08 21:00 | Observation (INO) | payer MEDICARE, BC, SELFPAY ==
[2024-05-08] VITALS (7 sets, daily range): BP systolic 122–156; BP diastolic 46–71; PULSE 57–61; RESP 17–18; TEMP 36.6–36.8; O2SAT 88–94; BMI 35.0
--- NOTE | 2024-05-08 21:00 | XR_ITS ---
PROCEDURE INFORMATION: Exam: XR Left Tibia and Fibula Exam date and time: 05/08/2024 9:04 PM Age: 83 years old Clinical indication: Injury or trauma; Fall; Other: Pain TECHNIQUE: Imaging protocol: Radiologic exam of the left tibia and fibula. Views: 2 views. COMPARISON: CR XR ANKLE LT MIN 3V 05/08/2024 9:04 PM FINDINGS: Bones/joints: Left total knee arthroplasty. Old plate and screw fixation of the ankle. No definite acute fracture seen. Soft tissues: Normal. IMPRESSION: No acute abnormality.
--- NOTE | 2024-05-08 21:00 | XR_ITS ---
PROCEDURE INFORMATION: Exam: XR Left Ankle Exam date and time: 05/08/2024 9:04 PM Age: 83 years old Clinical indication: Injury or trauma; Fall; Other: Pain TECHNIQUE: Imaging protocol: Radiologic exam of the left ankle. Views: 3 or more views. COMPARISON: CR XR ANKLE LT MIN 3V 05/08/2024 9:04 PM FINDINGS: Bones/joints: Healed distal fibula fracture with plate and screw fixation noted. Severe degenerative changes of the tibiotalar joint with total loss of the joint space laterally noted. There is lateral angulation of the talus and foot in relation to the tibia noted. Generalized osteopenia of the bony structures. No definite acute fracture seen. Soft tissues: Normal. IMPRESSION: No definite acute fracture. Lateral angulation of the talus and foot in relation to the tibia with associated widening of the medial tibiotalar joint space. These findings may be chronic related to old trauma and advanced degenerative changes. The possibility these findings may be related to acute injury not totally excluded as we have no previous study for comparison.
--- NOTE | 2024-05-08 21:09 | HMH.EDGENADL ---
Discharge Plan Disposition Patient Disposition: Admitted Prescriptions Prescriptions: No Action tizanidine 2 mg tablet 2 mg PO HS Qty: 30 5RF fluticasone propion-salmeterol [Wixela Inhub] 250-50 mcg/dose blister with device 1 ea INHALATION BID oxybutynin chloride 10 mg tablet extended release 24hr 20 mg PO DAILY Patient Comments: TAKE 2 TABLETS BY MOUTH ONCE DAILY escitalopram oxalate 20 mg tablet 20 mg PO DAILY Patient Comments: TAKE 1 TABLET BY MOUTH ONCE DAILY tizanidine 4 mg capsule 4 mg PO HSP PRN (Reason: muscle spasticity) PreserVision AREDS 2 Plus MV 200 mcg-15 mcg- 5 mg-1 mg Capsule 1 cap PO BID magnesium oxide 400 mg (241.3 mg magnesium) tablet 400 mg PO DAILY Patient Comments: TAKE 1 TABLET BY MOUTH ONCE DAILY acetaminophen 325 mg Tablet 650 mg PO Q4HP PRN (Reason: Fever Or Mild Pain (1-3)) Qty: 1 0RF azithromycin 250 mg Tablet 500 mg PO DAILY Qty: 10 0RF famotidine 20 mg Tablet 40 mg PO DAILY 30 Days Qty: 60 0RF irbesartan 300 mg Tablet 300 mg PO DAILY Qty: 30 0RF furosemide [Lasix] 20 mg tablet 20 mg PO DAILY Qty: 30 0RF celecoxib 200 capsule 200 mg PO DAILY metformin 500 MG tablet 500 mg PO BIDWMEAL simvastatin 20 tablet 20 mg PO HS montelukast 10 MG tablet 10 mg PO PM pregabalin [Lyrica] 75 capsule 75 mg PO BID Clinical Impressions Clinical Impression: Fall, Chronic pain of left ankle, Inability to bear weight Print Language Print Language: Filipino Discharge ED Provider: Ata Stewart General Adult HPI General Chief complaint: Fall Stated complaint: left ankle pain Time Seen by Provider: 05/08/24 21:00 History of Present Illness HPI narrative: Patient is an asymptomatic 83-year-old woman brought in today by EMS because she was unable to ambulate after falling from a seated position and having difficulty walking on her left lower extremity after standing. She does have a history of orthopedic interventions on her left lower extremity and her deformities are chronic and unchanged. She currently denies any pain in her left lower extremity. She states that she otherwise feels normal. She lives at home by herself and typically walks with a walker. Related Data Home Medications ?Medication ?Instructions ?Recorded ?Confirmed celecoxib 200 mg capsule 200 mg PO DAILY 03/06/18 05/04/24 metformin 500 mg tablet 500 mg PO BIDWMEAL 03/06/18 05/04/24 montelukast 10 mg tablet 10 mg PO PM 03/06/18 05/04/24 pregabalin 75 mg capsule (Lyrica) 75 mg PO BID 03/06/18 05/04/24 simvastatin 20 mg tablet 20 mg PO HS 03/06/18 05/04/24 escitalopram oxalate 20 mg tablet 20 mg PO DAILY 11/10/23 05/04/24 fluticasone 250 mcg-salmeterol 50 1 ea inhalation BID 11/10/23 05/04/24 mcg/dose blistr powdr for inhalation (Wixela Inhub) oxybutynin chloride 10 mg 20 mg PO DAILY 11/10/23 05/04/24 tablet,extended release 24 hr tizanidine 4 mg capsule 4 mg PO HSP PRN muscle spasticity 11/10/23 05/04/24 mv-mn-folic 200 mcg-vit K 15 1 cap PO BID 11/11/23 05/04/24 mcg-lutein 5 mg-zeaxanthin 1 mg capsule (PreserVision AREDS 2 Plus Multivit) magnesium oxide 400 mg (241.3 mg 400 mg PO DAILY 02/20/24 05/04/24 magnesium) tablet Previous Rx's ?Medication ?Instructions ?Recorded acetaminophen 325 mg tablet 650 mg (2 x 325 mg) PO Q4HP PRN 02/25/24 Fever Or Mild Pain (1-3) #1 tab azithromycin 250 mg tablet 500 mg (2 x 250 mg) PO DAILY #10 02/25/24 tabs famotidine 20 mg tablet 40 mg (2 x 20 mg) PO DAILY 30 days 02/25/24 #60 tabs furosemide 20 mg tablet (Lasix) 20 mg PO DAILY #30 tabs 02/25/24 irbesartan 300 mg tablet 300 mg PO DAILY #30 tabs 02/25/24 tizanidine 2 mg tablet 2 mg PO HS #30 tabs 05/04/24 Allergies Allergy/AdvReac Type Severity Reaction Status Date / Time pollen extracts Allergy Intermediate ASTHMA Verified 11/10/23 10:41 [POLLEN EXTRACTS] [facility] Disclaimer: The information contained in this section may have been updated after the patient was seen, as this information can be updated by other users. Medical History (Updated 05/08/24 @ 23:05 by Ata Stewart MD) Mediastinal lymphadenopathy Sleep apnea Asthma Hyperlipidemia Neuropathy Depression GERD (gastroesophageal reflux disease) Arthritis Hypertension Diabetes Surgical History (Updated 02/29/24 @ 00:00 by Yared Jackman) History of left ankle joint replacement 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 History of arthroplasty of right knee History of appendectomy Family History Heart attack Social History (Updated 02/20/24 @ 10:28 by Minerva Lopez RN) Smoking Status: Unknown if ever smoked alcohol intake: never substance use type: denies use current occupational status: other Travel in the last 8 weeks: None household members: none caffeine: Yes ROS Obtained: Yes All systems reviewed & no additional complaints except as documented Physical Exam General General appearance: alert Respiratory Respiratory exam: Present normal lung sounds bilaterally Cardiovascular Cardiovascular exam: Present regular rate Extremities Exam Extremities exam: Present other (Significant soft tissue abnormality left medial lateral malleolus of the left ankle no significant tenderness there is swelling bilateral lower extremity edema erythema and warmth which patient states is stable and chronic) Neurological Exam Neurological exam: Present alert and oriented X3 Medical Decision Making Gabriele Inquiry Pt receiving controlled substance: No Vital Signs: 05/08/24 21:00 05/08/24 21:00 05/08/24 21:31 Temperature 98.2 F Temperature Source Oral Pulse Rate 59 L 58 L Pulse Rate [Left Radial] 60 Respiratory Rate 18 Blood Pressure 149/48 H 127/54 L Blood Pressure [Right Arm] 149/71 H Blood Pressure Mean [Right Arm] 97 Blood Pressure Source [Right Arm] Automatic Cuff Blood Pressure Position [Right Arm] Sitting 02 Sat by Pulse Oximetry 92 L 91 L 88 L Oxygen Delivery Method Nasal Cannula Oxygen Flow Rate (LPM) 2 05/08/24 22:01 Temperature Temperature Source Pulse Rate 58 L Pulse Rate [Left Radial] Respiratory Rate Blood Pressure 122/46 L Blood Pressure [Right Arm] Blood Pressure Mean [Right Arm] Blood Pressure Source [Right Arm] Blood Pressure Position [Right Arm] 02 Sat by Pulse Oximetry 93 L Oxygen Delivery Method Oxygen Flow Rate (LPM) Orders (Tests/Meds): ORDERS Category Date Time Status Ankle XR - Left minimum 3 Views [XR ankle LT min 3V] Exams 05/08/24 21:00 Completed Stat Tibia/fibula XR left 2 views [XR tibia fibula LT 2V] Exams 05/08/24 21:00 Completed Stat Medical Decision Narrative: Asymptomatic 83-year-old female with chronic deformity of left lower extremity and ankle after orthopedic intervention in the past with also chronic bilateral lower extremity edema and erythema and warmth which she states is at her baseline presents today with a fall from a seated position and EMS brought her in because she was having difficult time bearing weight in the left foot. She was at home by herself and walks with a walker. Her exact words to me where that she felt like she did not need to be here. We will get plain films of her tib-fib and ankle and then reassess and see if she can bear weight and walk. X-rays performed to person interpreted which show chronic old orthopedic interventions including hardware that has not loosened or is out of place. There is chronic abnormalities but no definitive acute fracture or dislocation. Patient unable to bear weight. No indication for emergent CT at this point patient will need to be admitted for PT OT possible orthopedic evaluation and advanced imaging if she is not improving. Family and patient are aware that she may need to be placed in a penitentiary and they are agreeable to this. I will discuss the case with members on-call for Dr. Adamson the patient will be admitted. Critical Care Critical Care Time Critical Care Time: No
--- OUTSIDE RECORDS SUMMARY | 2024-05-08 21:09 | XMS_ITS | Continuity of Care Document ---
Author Organization [facility] Address [address] [place] [address] Phone Care Team Providers Care Entertainment Production Professional Name Role Phone Adebayo ROSEN, Vikas Merritt Unavaila ble Advance Directives Directive Yes / No Effective Date File Name No Information Encounters Encounter Description Practice Location Reason(s) For Visit Diagnoses Date Provider Providers Copied on Encounter [facility] , [address] [place], [address], tel:[phone] [facility] No Information Adebayo rocha [address] [place] [address], [id number]. tel:[phone] Family History Family Member Type Diagnosis Age [...]
--- NOTE | 2024-05-08 22:51 | PC.NURSE ---
Per Chaim Lares SRNA, pt is unable to bear weight to ambulate
--- NOTE | 2024-05-08 23:08 | PC.NURSE ---
Dr. Hernandez production weigher for Dr. Hanna, page placed
--- NOTE | 2024-05-08 23:29 | PC.NURSE ---
reports called to herve rn at this time
--- NOTE | 2024-05-08 23:41 | PC.NURSE ---
Patient arrived to floor via stretcher from ED at 23:39.
[2024-05-09] VITALS (7 sets, daily range): BP systolic 131–153; BP diastolic 57–77; PULSE 58–61; RESP 17–18; TEMP 37–37.2; O2SAT 91–95; BMI 34.7
--- NOTE | 2024-05-09 02:20 | PC.NURSE ---
Patient arrived to floor via stretcher from ED at 02:19.
--- NOTE | 2024-05-09 02:30 | PC.NURSE ---
At this time, Dr Hernandez (on-call for Dr Adamson) was notified about the patient. Orders were requested.
--- NOTE | 2024-05-09 05:46 | PC.NURSE ---
Ms Nascimento was newly admitted last night on behalf of a fall out of a chair, directly onto her knees at home. She was unable to ambulate with her walker, nor was able to bear weight on her legs and ankles in the ER. She is alert and oriented x4. Patient has a history of a left ankle fracture which has resulted her with a left foot deformity. She also has histories of bilateral ankle and hip replacements. Patient reports pain in her affected foot, as well as pain in her knees with movement. Patient has bilateral scrapes, noticeable redness, and swelling below both knees. She also has rough, scaly skin on her both lower legs. Patient has been on bed rest throughout the night and has a PT consult put into place. Dr Hernandez was made aware of her admission this shift (see prior note). New orders were put into place by his requests. Patient has a history of diabetes but fingerstick glucose was not recommended by Mary at this time; patient takes metformin 500mg BID. DNR wish form was signed by patient this shift per her request; patient wanted no intubation as well. Patient's home medications were reviewed and confirmed during admission. Patient's lung sounds were clear and her bowel sounds were very active upon auscultation. Patient's heart rhythm has been slightly bradycardic this shift. She is currently on 2 L of oxygen per nasal cannula; oxygen saturations have sustained within the low 90s. Patient was observed to have eyes closed, respirations even and unlabored, and no apparent distress throughout the majority of the night since her admission. She has not had any further complaints thus far. Call light within reach.
--- NOTE | 2024-05-09 11:18 | EXP.HP ---
History of Present Illness *Admission Date: 05/08/24 *Reason for visit:: Can not stand up *History of present illness: Mrs. Nascimento is an 83 year old female patient of [facility] who has been in declining health recently. She was admitted a little over a month ago for pneumonia with hypoxic respiratory failure and renal failure. She was just able to be wean off of supplemental oxygen a few weeks ago. She had been feeling stronger but had new problems yesterday. Last night she was at home and was unable to stand due to weakness and pain in her left ankle. She eventually got to her knees and was able to crawl to the phone and call for help. She states she never lost consciousness and did not fall. She has a long history of orthopedic issues with her ankle and with fractures and surgeries. She typically uses a walker to assist with ambulation. She currently lives at home by herself. [facility] Disclaimer: The information contained in this section may have been updated after the patient was seen, as this information can be updated by other users. Medical History (Updated 05/09/24 @ 11:34 by Allan Adamson MD) CKD (chronic kidney disease) stage 3, GFR 30-59 ml/min Pneumonia Allergic rhinitis Colon polyps Hemorrhoids, internal Osteoporosis Herpes zoster Closed left ankle fracture Closed left hip fracture Lumbar spinal stenosis Lumbar compression fracture Ocular melanoma COPD (chronic obstructive pulmonary disease) Mediastinal lymphadenopathy Sleep apnea Asthma Hyperlipidemia Neuropathy Depression GERD (gastroesophageal reflux disease) Arthritis Hypertension Diabetes Surgical History (Updated 05/09/24 @ 00:45 by Katie Koenig RN) History of left knee replacement History of left hip replacement History of left ankle joint replacement 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 History of arthroplasty of right knee History of appendectomy Family History Heart attack Social History (Updated 05/09/24 @ 01:50 by Katie Koenig RN) Smoking Status: Unknown if ever smoked alcohol intake: never substance use type: denies use current occupational status: other Travel in the last 8 weeks: None household members: none caffeine: Yes Review of Systems Constitutional Constitutional: Denies chills and Denies fever(s) ENT Ears, Nose, Mouth, and Throat: Denies dizziness *Cardiovascular Cardiovascular: Denies chest pain and Denies dyspnea *Respiratory Respiratory: Denies cough and Denies dyspnea *Gastrointestinal Gastrointestinal: Denies abdominal pain and Denies dyspepsia *Genitourinary Genitourinary: Denies dysuria *Musculoskeletal Musculoskeletal: Reports arthralgias (left ankle) *Neurologic Neurologic: Denies dizziness Meds Home Medications and Allergies Home Medications ?Medication ?Instructions ?Recorded ?Confirmed ?Type metformin 500 mg tablet 500 mg PO BIDWMEAL 03/06/18 05/09/24 History montelukast 10 mg tablet 10 mg PO PM 03/06/18 05/09/24 History pregabalin 75 mg capsule (Lyrica) 75 mg PO BID 03/06/18 05/09/24 History simvastatin 20 mg tablet 20 mg PO HS 03/06/18 05/09/24 History escitalopram oxalate 20 mg tablet 20 mg PO DAILY 11/10/23 05/09/24 History fluticasone 250 mcg-salmeterol 50 1 ea inhalation BID 11/10/23 05/09/24 History mcg/dose blistr powdr for inhalation (Ishan Inhcarlie) oxybutynin chloride 10 mg 20 mg PO DAILY 11/10/23 05/09/24 History tablet,extended release 24 hr mv-mn-folic 200 mcg-vit K 15 1 cap PO BID 11/11/23 05/09/24 History mcg-lutein 5 mg-zeaxanthin 1 mg capsule (PreserVision AREDS 2 Plus Multivit) magnesium oxide 400 mg (241.3 mg 400 mg PO DAILY 02/20/24 05/09/24 History magnesium) tablet famotidine 20 mg tablet 40 mg (2 x 20 mg) PO DAILY 30 days 02/25/24 05/09/24 Rx #60 tabs furosemide 20 mg tablet (Lasix) 20 mg PO DAILY #30 tabs 02/25/24 05/09/24 Rx irbesartan 300 mg tablet 300 mg PO DAILY #30 tabs 02/25/24 05/09/24 Rx metoprolol succinate 50 mg 50 mg PO DAILY 05/09/24 05/09/24 History tablet,extended release 24 hr New Prescriptions to Start Prescriptions: Allergies Allergy/AdvReac Type Severity Reaction Status Date / Time pollen extracts Allergy Intermediate ASTHMA Verified 11/10/23 10:41 [POLLEN EXTRACTS] Exam Data for Last 24 hours Vital signs and Labs for Last 24 Hours: Temp Pulse Resp BP Pulse Ox O2 Del Method O2 Flow Rate 98.8 F 61 18 153/77 H 91 L Room Air 2 05/09/24 08:00 05/09/24 08:00 05/09/24 08:00 05/09/24 08:00 05/09/24 08:00 05/09/24 09:00 05/09/24 08:00 I & O for Last 24 hours: Intake & Output 05/06/24 05/07/24 05/08/24 05/09/24 23:59 23:59 23:59 23:59 Intake Total 510 / 510 Output Total 800 / 800 Balance -290 / -290 Weight 217 lb 215 lb 14.4 oz Constitutional Constitutional: no acute distress *Routine HEENT Exam Head: Present normocephalic Eye: Present EOMI and PERRL ENT: Present mucous membranes moist *Routine Neck Exam Neck: Present supple; Absent lymphadenopathy *Routine Respiratory Exam Respiratory: Present CTA bilaterally *Routine Cardiovascular Exam Cardiovascular: Present RRR *Routine Abdominal Exam Abdominal: Present soft and normoactive bowel sounds; Absent tenderness *Routine Rectal Exam Rectal:: deferred *Routine Genitalia Exam Genitalia:: deferred *Routine Extremities Exam Extremities: Absent cyanosis, clubbing or edema Comments: chronic deformity of the left ankle, with foot externally rotated *Routine Skin Exam Skin: Present warm Comments: Dull skin redness with thickening of the skin over the anterior portion of both lower legs, few small healing skin wounds as well *Routine Neurological Exam Neurological: Present alert and oriented X3 Assessment and Plan *Assessment and plan (1) Inability to bear weight: Status: Acute Category: Medical Code(s): R26.89 - Other abnormalities of gait and mobility (2) Chronic pain of left ankle: Status: Acute Category: Medical Code(s): M25.572 - Pain in left ankle and joints of left foot; G89.29 - Other chronic pain (3) Lumbar radiculopathy: Status: Acute Category: Medical Code(s): M54.16 - Radiculopathy, lumbar region (4) General weakness: Status: Acute Category: Medical Code(s): R53.1 - Weakness (5) Sleep apnea: Status: Acute Category: Medical Code(s): G47.30 - Sleep apnea, unspecified (6) Diabetes: Status: Acute Category: Medical Code(s): E11.9 - Type 2 diabetes mellitus without complications (7) Hypertension: Status: Acute Category: Medical Code(s): I10 - Essential (primary) hypertension (8) Depression: Status: Acute Category: Medical Code(s): F32.A - Depression, unspecified (9) GERD (gastroesophageal reflux disease): Status: Acute Category: Medical Code(s): K21.9 - Gastro-esophageal reflux disease without esophagitis (10) Hyperlipidemia: Status: Acute Category: Medical Code(s): E78.5 - Hyperlipidemia, unspecified Plan Patient admitted for further evaluation and management. Will have PT see patient, as she may need placement in a SNF. Will need to check some labs and a CXR as well, as these were not done in the ER. Resume some of her home meds.
--- NOTE | 2024-05-09 11:47 | XR_ITS ---
PROCEDURE INFORMATION: Exam: XR Chest Exam date and time: 05/09/2024 2:38 PM Age: 83 years old Clinical indication: Other: Hypoxia TECHNIQUE: Imaging protocol: Radiologic exam of the chest. Views: 1 view. COMPARISON: CT ANGIO CHEST PE PROTOCOL 02/22/2024 10:24 AM FINDINGS: Lungs: Opacity in the left base may represent atelectasis or pneumonia.. Pleural spaces: Blunting in the left costophrenic angle may represent small left pleural effusion. Heart/Mediastinum: Cardiomegaly Bones/joints: Stable IMPRESSION: 1. Blunting in the left costophrenic angle may represent small left pleural effusion. 2. Opacity in the left base may represent atelectasis or pneumonia..
[2024-05-09] MEDS: ACETAMINOPHEN 325MG TAB 650 MG PO ×2 (12:09→22:50)
[2024-05-09 12:35] LABS: Basophils # 0.1 K/mm3 (0-0.2); Eosinophils # 0.2 K/mm3 (0.0-0.4); Eosinophils % 2.6 % (0.1-12.0); Hematocrit 34.6 % (37.0-47.0); Hemoglobin 9.9 g/dL (12.2-16.2); Lymphocytes # 1.2 K/mm3 (0.7-4.5); Lymphocytes % 18.1 % (10-50); Mean Corpuscular HGB Conc 28.6 g/dL (31.8-35.4); Mean Corpuscular Hemoglobin 23.3 pg (27.0-31.2); Mean Corpuscular Volume 81.5 fl (81-99); Mean Platelet Volume 9.4 fl (7.4-10.4); Monocytes # 0.6 K/mm3 (0.1-1.0); Neutrophils # 4.6 K/mm3 (1.8-7.8); Neutrophils % 69.3 % (37.0-80.0); Platelet Count 197 K/mm3 (142-424); Red Blood Count 4.25 M/mm3 (4.20-5.40); Red Cell Distribution Width 19.9 % (11.5-17.5); White Blood Count 6.6 K/mm3 (4.8-10.8)
[2024-05-09] MEDS: CITALOPRAM 40MG TABLET 40 MG PO (13:10)
[2024-05-09] MEDS: FAMOTIDINE 20MG TABLET 40 MG PO (13:11)
[2024-05-09] MEDS: METOPROLOL SUCCINATE XL 50MG TABLET 50 MG PO (13:11)
--- NOTE | 2024-05-09 13:20 | HMH.PTEV ---
Physical Therapy Evaluation Rehab PT IP Evaluation Start: 05/08/24 23:50 Freq: ONCE Status: Active Protocol: Document 05/09/24 13:05 PDESEROUX (Rec: 05/09/24 13:20 PDESEROUX [id number]) Subjective/History History History Pt. is a 83 year old female who presents to [facility] Inpatient secondary to having a fall at home last night. Pt. reports she fell asleep in her recliner at home and fell forward out of the chair onto the floor. Pt. vocalizes crawling on her knees to her bed to assist herself back up. However, pt. reports she was unable to assist herself back up and had to call some people to who were also unable to assist pt. back into chair. Therefore, EMS were called to assist pt. and was brought to the E.R. Pt. reports having an increase in LLE knee and ankle/ft. P! secondary to fall , vocalizes a 6/10 at rest that worsens to a 9/10 w/ activity. Pt. reports having difficulty bearing weight through the LLE secondary to P !. Pt. reports she lives alone , and hates having to call for others to help assist. Pt. reports she current resides in the [facility] at [facility]. Pt. c/ o having a functional decline secondary to of relatives and not having the physical ability to IND. participate in ADLs safely at home w/o the risk for a fall. Pt. vocalizes having a chronic history of falls that have results in BLE hip replacements. PMH includes BLE TKA, LLE ankle jt. replacement, and BLE NASIR. Subjective Subjective Pt. was supine in hospital bed upon entry after being given consent per pt. to enter room. Pt. c/o increased LLE knee and ankle soreness secondary to fall yesterday. Pt. reports having difficulty w/ weight-bearing through the LLE secondary to history of surgery on top of recent fall. Pt. agreeable to participate in Physical Therapy Inpatient initial eval. this date. New diagnosis of cancer in past 12 No months? Rehab PT IP Eval Objective Appearance Patient Behavior Appropriate,Cooperative Patient Orientation Person,Place,Birthday Difficulty following instructions none Speech Pattern Clear,Appropriate Ambulation Patient Able to Ambulate No Balance Ability to Arise Able, uses arms to help Sitting Balance Steady, safe Standing Balance Steady, wide stance Dynamic Sitting Balance Ability Good Dynamic Standing Balance Ability Good Transfers Bed Transfer Ability Supervision/Stand by Sit to Stand Bed Transfer Ability Moderate x 1 (50% assist) Pain Knee Pain Intensity 6 ROM LLE PT ROM Status ABN Abnormal ROM Comment d/t LLE knee P! and hx. LLE ankle surgery RLE PT ROM Status WFL MMT LLE PT MMT ABN RLE PT MMT WFL Rehab PT IP prob,goals,plan Problems Date of Evaluation: 05/09/24 PT IP Problems Transfers,Gait,Balance,Self care,Safety Rehab Potential Rehab Potential Good Equipment Needs Assistive Devices Standard Walker,Rolling / Wheeled Walker Plan PT Intervention Plan Transfers,Gait,Balance,Self care,Safety,Therapeutic Exercise PT Plan Frequency BID Duration LOS Discharge Goals Bed Transfer Ability Supervision/Stand by Sit to Stand Chair Transfer Ability Minimal x 1 (25% assist) Ambulation Assistive Device Standard Walker,Rolling Walker Ambulation Distance (feet) 5 Discharge Plan PT Discharge Plan Upon discharge from [facility], once deemed medically stable per MD , pt. is most appropriate for long-term care facility secondary to current functional status and living environment. Pt. exhibits increased limitations in functional status secondary to history of Orthopedic conditions, but also secondary to increased difficulty to weight bear through the LLE d/ t recent fall. Therefore, pt. would receive the most benefit and reduce the risk for another fall w/ long-term facility care to promote muscle strengthening and endurance to improve current quality of life. Eval Complexity Eval Charge Codes 39133 - Low Complexity PHYSICIAN CERTIFICATION: I certify the specified therapy services for Kisrtie Nascimento are required, authorized, and reviewed every 30 days.
[2024-05-09] MEDS: FLUTICASONE/SALMETEROL 250/50MCG DISKUS 1 PUFF IH ×2 (13:45→18:58)
[2024-05-09 14:36] LABS: Chloride 105 mmol/L (98-107)
[2024-05-09 14:37] LABS: Albumin Level 3.5 g/dl (3.5-5.0); Potassium 4.5 mmoL/L (3.5-5.1); Sodium 141 mmol/L (136-145)
[2024-05-09 14:39] LABS: Blood Urea Nitrogen 23 mg/dl (7-17); Creatinine Clearance Estimated 53 mL/min (50-200); Estimated Glomerular Filt Rate 43 ml/min (>60); GFR (African American) 52 ML/MIN (>60)
[2024-05-09 14:40] LABS: Alanine Aminotransferase 17 U/L (12-78); Albumin/Globulin Ratio 1.1 (1.1-1.8); Alkaline Phosphatase 74 U/L (38-126); Anion Gap 7.5 mEq/L (5-15); Aspartate Amino Transferase 33 U/L (14-36); Bilirubin,Total 0.6 mg/dl (0.2-1.3); Calcium 8.6 mg/dl (8.4-10.2); Carbon Dioxide 33 mmol/L (22.0-30.0); Globulin 3.1 g/dL (1.3-3.2); Glucose 108 mg/dl (74-100); Total Protein,Serum 6.6 g/dl (6.3-8.2)
[2024-05-09 15:10] LABS: Microscopic, Urine URINE MICROSCOPIC (MICROSCOPIC)
[2024-05-09 15:12] LABS: Appearance,Urine CLEAR (Clear); Bilirubin,Urine Negative (Negative); Blood, Urine Negative (Negative); Color,Urine YELLOW (Yellow); Glucose,Urine (UA) Negative (Negative); Ketones,Urine Negative (Negative); Leukocyte Esterase,Urine Negative (Negative); Nitrate,Urine Negative (Negative); Protein,Urine Negative (Negative); Specific Gravity, Urine 1.015 (1.005-1.030); Urobilinogen,Urine 0.2 EU/dl (0.2)
[2024-05-09 15:40] LABS: Squamous Epithelial Cell,Urine Occasional #/hpf (0-5); WBC,Urine Occasional #/hpf (0-3)
[2024-05-09] MEDS: METFORMIN 500MG TABLET 500 MG PO (17:33)
--- NOTE | 2024-05-09 17:38 | PC.NURSE ---
Pt alert and oriented x4. on 2L NC. Pt worked with PT today, she sat on the side of the bed without assistance and stood with assistance with walker but was unable to walk because of being non weight bearing on left ankle because of recent fall. Pt using bedpan to void. Pt has some abrasions below the knees from fall and swelling in the left ankle. Pt has not c/o pain or asked for pain medication. Pt resting in bed comfortably with no complaints at this time.
[2024-05-09] MEDS: PREGABALIN 25MG CAPSULE 75 MG PO (21:30)
[2024-05-10] VITALS (8 sets, daily range): BP systolic 137–159; BP diastolic 59–79; PULSE 52–73; RESP 17–20; TEMP 36.8–37; O2SAT 90–96; BMI 34.1
--- NOTE | 2024-05-10 06:14 | PC.NURSE ---
Addendum entered by Katie Koenig RN 05/10/24 06:31: An umbilical hernia was noticed upon assessment this shift. Patient voiced that the hernia does not cause her problems, stated has been there for a long time, and that Juan Diego is aware of it. Original Note: Patient is alert and oriented x4. Patient was observed to have eyes closed, respirations even and unlabored, and no apparent distress throughout the night. Patient's bilateral lower extremities were assessed; the left leg had more significant swelling and redness compared to the right leg. Skin on bilateral legs to anterior shins and posterior calves is also rough and scaly-like. Swelling of left leg +3 and swelling of right leg +2. Scrapes with no drainage or bleeding were noted below both knees. Patient's left foot is turned outward. Patient's lung sounds were clear and bowel sounds were active this shift. Patient reports pain with movement of her legs but no pain when at rest. Patient was given Tylenol once this shift before bed per OCT per patient's request of pre-medication. Patient also received her scheduled medications per OCT. Patient was observed to be on 3 L of oxygen via nasal cannula this shift; patient's oxygen sats have maintained in the upper 90s. Patient's heart rate has been slightly bradycardic this shift. She has been placed on the purewick the previous shift to void and uses the bedpan to defecate. Patient does not have any further complaints at this time. Patient is currently resting supine in bed. Bed alarm on. Call light within reach.
[2024-05-10] MEDS: FLUTICASONE/SALMETEROL 250/50MCG DISKUS 1 PUFF IH ×2 (06:39→18:23)
--- NOTE | 2024-05-10 07:01 | P.PN_ITS ---
Subjective *Date: 05/10/24 *Time: 07:01 Interval history: Patient with no new complaints today. PT note reviewed. Medical Exam Vital signs and Labs for Last 24 Hours: Vital Signs Temp Pulse Resp BP Pulse Ox O2 Del Method O2 Flow Rate 05/10/24 06:52 Nasal Cannula 3 05/10/24 06:41 96 Nasal Cannula 3 05/10/24 05:00 Nasal Cannula 3 05/10/24 04:00 98.5 F 58 L 18 137/59 L 96 Nasal Cannula 05/10/24 03:00 Nasal Cannula 3 05/10/24 01:00 Nasal Cannula 3 05/09/24 23:00 Nasal Cannula 3 05/09/24 21:00 Nasal Cannula 3 05/09/24 20:00 58 L 17 95 Nasal Cannula 3 05/09/24 20:00 99.0 F 58 L 17 144/66 H 95 05/09/24 19:27 Nasal Cannula 3 05/09/24 18:45 Nasal Cannula 2 05/09/24 18:30 92 L Room Air 05/09/24 17:00 Nasal Cannula 2 05/09/24 16:00 98.6 F 58 L 18 131/60 93 L Nasal Cannula 3 05/09/24 15:00 Nasal Cannula 2 05/09/24 13:48 93 L Nasal Cannula 3 05/09/24 13:00 Nasal Cannula 2 05/09/24 11:00 Room Air 05/09/24 09:00 Room Air 05/09/24 08:00 Room Air 05/09/24 08:00 98.8 F 61 18 153/77 H 91 L Nasal Cannula 2 Intake and Output 05/09/24 05/09/24 05/10/24 15:59 23:59 07:59 Intake Total 630 / 1170 270 / 1170 150 / 150 Output Total 950 / 1750 400 / 400 Balance 630 / -580 -680 / -580 -250 / -250 Intake: Intake, Oral Amount 630 / 1170 270 / 1170 150 / 150 Output: Output, Urine Amount 950 / 1750 400 / 400 Other: Number of Unmeasured Voids 0 0 Weight 212 lb 4.8 oz Patient Weight 05/10/24 23:59 Weight 212 lb 4.8 oz Laboratory Results - last 24 hr 05/09/24 11:59: Urine Color Yellow, Urine Appearance Clear, Urine pH 7.0, Ur Specific [place] 1.015, Urine Protein Negative, Urine Glucose (UA) Negative, Urine Ketones Negative, Urine Blood Negative, Urine Nitrate Negative, Urine Bilirubin Negative, Urine Urobilinogen 0.2, Ur Leukocyte Esterase Negative, Urine RBC None, Urine WBC Occasional, Ur Squamous Epith Cells Occasional, Urine Bacteria None 05/09/24 12:15: WBC 6.6, RBC 4.25, Hgb 9.9 L, Hct 34.6 L, MCV 81.5, MCH 23.3 L, MCHC 28.6 L, RDW 19.9 H, Plt Count 197, MPV 9.4, Neut % (Auto) 69.3, Lymph % (Auto) 18.1, [place] % (Auto) 9.0, Eos % (Auto) 2.6, Baso % (Auto) 1.0, Neut # (Auto) 4.6, Lymph # (Auto) 1.2, [place] # (Auto) 0.6, Eos # (Auto) 0.2, Baso # (Auto) 0.1, Sodium 141, Potassium 4.5, Chloride 105, Carbon Dioxide 33 H, Anion Gap 7.5, BUN 23 H, Creatinine 1.20 H, Estimated Creat Clear 53, Estimated GFR 43 L, Est GFR ( Amer) 52 L, Glucose 108 H, Calcium 8.6, Total Bilirubin 0.6, AST 33, ALT 17, Alkaline Phosphatase 74, Total Protein 6.6, Albumin 3.5, Globulin 3.1, Albumin/Globulin Ratio 1.1 I & O for Labs for Last 24 Hours: Intake & Output 05/07/24 05/08/24 05/09/24 05/10/24 23:59 23:59 23:59 23:59 Intake Total 1020 / 1170 150 / 150 Output Total 1750 / 1750 400 / 400 Balance -730 / -580 -250 / -250 Weight 217 lb 215 lb 14.4 oz 212 lb 4.8 oz Constitutional: Present no acute distress Respiratory: Present normal respiratory effort Cardiac: Present Reg Rate and Rhythm GI: Present normal bowel sounds; Absent tenderness Neuro: Present Grossly Intact and moves all extremities Assessment and Plan *Assessment and plan (1) Inability to bear weight: Status: Acute Category: Medical Code(s): R26.89 - Other abnormalities of gait and mobility (2) Chronic pain of left ankle: Status: Acute Category: Medical Code(s): M25.572 - Pain in left ankle and joints of left foot; G89.29 - Other chronic pain (3) Lumbar radiculopathy: Status: Acute Category: Medical Code(s): M54.16 - Radiculopathy, lumbar region (4) General weakness: Status: Acute Category: Medical Code(s): R53.1 - Weakness (5) Sleep apnea: Status: Acute Category: Medical Code(s): G47.30 - Sleep apnea, unspecified (6) Diabetes: Status: Acute Category: Medical Code(s): E11.9 - Type 2 diabetes mellitus without complications (7) Hypertension: Status: Acute Category: Medical Code(s): I10 - Essential (primary) hypertension (8) Depression: Status: Acute Category: Medical Code(s): F32.A - Depression, unspecified (9) GERD (gastroesophageal reflux disease): Status: Acute Category: Medical Code(s): K21.9 - Gastro-esophageal reflux disease without esophagitis (10) Hyperlipidemia: Status: Acute Category: Medical Code(s): E78.5 - Hyperlipidemia, unspecified (11) Anemia: Status: Acute Category: Medical Code(s): D64.9 - Anemia, unspecified (12) Hypoxia: Status: Acute Category: Medical Code(s): R09.02 - Hypoxemia Plan Testing shows anemia and an abnormal CXR, patient has been requiring supplemental oxygen, will repeat CXR today and will check labs in the morning. PT is recommending placement for rehab due to inability to bear weight, will consult care management.
--- NOTE | 2024-05-10 07:04 | XR_ITS ---
PROCEDURE INFORMATION: Exam: XR Chest Exam date and time: 05/10/2024 11:37 AM Age: 83 years old Clinical indication: Other: Hypoxia TECHNIQUE: Imaging protocol: Radiologic exam of the chest. Views: 1 view. COMPARISON: CR XR CHEST PORTABLE 05/09/2024 2:38 PM FINDINGS: Lungs: There is mild linear atelectasis in the left lung base and medial aspect of the right lung base. Pleural spaces: There is no pneumothorax or pleural effusion. Heart/Mediastinum: Unremarkable. No cardiomegaly. Bones/joints: Unremarkable. IMPRESSION: Mild linear atelectasis in the lung bases. No radiographic evidence of pneumonia.
[2024-05-10] MEDS: CITALOPRAM 40MG TABLET 40 MG PO (08:04)
[2024-05-10] MEDS: METOPROLOL SUCCINATE XL 50MG TABLET 50 MG PO (08:04)
[2024-05-10] MEDS: FAMOTIDINE 20MG TABLET 40 MG PO (08:04)
[2024-05-10] MEDS: METFORMIN 500MG TABLET 500 MG PO ×2 (08:04→17:25)
[2024-05-10] MEDS: PREGABALIN 25MG CAPSULE 75 MG PO ×2 (08:08→20:48)
[2024-05-10] MEDS: ACETAMINOPHEN 325MG TAB 650 MG PO ×2 (10:19→20:55)
--- NOTE | 2024-05-10 17:30 | PC.NURSE ---
Pt resting in bed comfortably most of day. She has been sitting on side of bed for meals. Pt using purewick to void. pt c/o left knee pain and was given tylenol for pain which was effective. Pt LLE is swollen and skin on BLE is rough and scaly. Pt on 3L NC. She is laying in bed at this time with no complaints.
[2024-05-11 04:00] VITALS: BP 142/59; PULSE 64; RESP 17; TEMP 36.9; O2SAT 94; BMI 34.1
--- NOTE | 2024-05-11 05:32 | PC.NURSE ---
Patient is alert and oriented x4. Patient was observed to have eyes closed, respirations even and unlabored, and no apparent distress throughout the night. Patient stated that the pain in her left leg was better this shift, but she still continues to struggle to bear weight on it when working with PT. The swelling in the patient's bilateral lower extremities have slightly decreased but remain significant; swelling in the left leg continues to be more moderate than the right. Scrapes and rough skin are still present. Patient's umbilical hernia protrusion was noted to be slightly mild upon assessment this shift. Expiratory wheezing was noticed with auscultation of the bilateral lung bases this shift; upper lobes were clear. A sputum sample was collected and sent to lab this shift. Patient's bowel sounds were very active, but she stated that she has not had a bowel movement since the day before she was admitted (05/07/24). Her heart rate has been in the 60s and 70s this shift. Patient received her scheduled medication per OCT. She was also given Tylenol at bedtime for premedication per patient request. Patient continues to be on 3 L of oxygen via nasal cannula and tolerates it fairly. Purewick is in place. Patient does not have any further complaints thus far. Patient is currently resting supine in bed. Bed alarm on. Call light within reach.
[2024-05-11] MEDS: FLUTICASONE/SALMETEROL 250/50MCG DISKUS 1 PUFF IH ×2 (06:52→18:31)
[2024-05-11 07:16] LABS: Chloride 103 mmol/L (98-107); Sodium 140 mmol/L (136-145)
[2024-05-11 07:17] LABS: Potassium 4.1 mmoL/L (3.5-5.1)
[2024-05-11 07:19] LABS: Blood Urea Nitrogen 18 mg/dl (7-17); Creatinine Clearance Estimated 63 mL/min (50-200); Estimated Glomerular Filt Rate 60 ml/min (>60); GFR (African American) 72 ML/MIN (>60)
[2024-05-11 07:20] LABS: Anion Gap 6.1 mEq/L (5-15); Calcium 8.7 mg/dl (8.4-10.2); Carbon Dioxide 35 mmol/L (22.0-30.0); Glucose 102 mg/dl (74-100)
--- NOTE | 2024-05-11 07:49 | EXP.ACUTE.PN ---
Subjective *Date: 05/11/24 *Time: 09:08 Interval history: Patient states she slept last night. Breathing is as usual. She states she does have a cough which is sometimes productive. She denies chest pain. She ate poorly this morning. Bowels have not moved in several days and she is on the bedpan now. Physical therapy has seen patient. She is able to sit on the side of the bed. She states she could not bear weight on that left leg and did not walk. Repeat chest x-ray 05/10/2024 FINDINGS: Lungs: There is mild linear atelectasis in the left lung base and medial aspect of the right lung base. Pleural spaces: There is no pneumothorax or pleural effusion. Heart/Mediastinum: Unremarkable. No cardiomegaly. Bones/joints: Unremarkable. IMPRESSION: Mild linear atelectasis in the lung bases. No radiographic evidence of pneumonia. Medical Exam Vital signs and Labs for Last 24 Hours: Vital Signs Temp Pulse Resp BP Pulse Ox O2 Del Method O2 Flow Rate 05/11/24 06:47 Nasal Cannula 3 05/11/24 05:00 Nasal Cannula 3 05/11/24 04:00 98.5 F 64 17 142/59 H 94 L Nasal Cannula 3 05/11/24 03:00 Nasal Cannula 3 05/11/24 01:00 Nasal Cannula 3 05/10/24 23:00 Nasal Cannula 3 05/10/24 21:00 Nasal Cannula 3 05/10/24 20:00 73 17 95 Nasal Cannula 3 05/10/24 20:00 98.6 F 73 17 159/73 H 95 Nasal Cannula 05/10/24 19:27 91 L Nasal Cannula 3 05/10/24 18:35 Nasal Cannula 05/10/24 16:41 Nasal Cannula 3 05/10/24 16:00 98.4 F 52 L 20 146/60 H 96 Nasal Cannula 3 05/10/24 15:00 Nasal Cannula 3 05/10/24 12:48 Nasal Cannula 3 05/10/24 12:00 98.4 F 56 L 19 147/79 H 93 L Nasal Cannula 3 05/10/24 11:41 98.4 F 56 L 19 147/79 H 93 L Nasal Cannula 3 05/10/24 11:00 Nasal Cannula 3 05/10/24 09:00 Nasal Cannula 3 05/10/24 08:00 Nasal Cannula 05/10/24 07:54 98.2 F 65 19 143/63 H 90 L Nasal Cannula 3 Intake and Output 05/10/24 05/11/24 05/11/24 19:59 03:59 11:59 Intake Total 580 / 580 120 / 700 Output Total 175 / 175 350 / 525 Balance 580 / 580 -55 / 525 -350 / 175 Intake: Intake, Oral Amount 580 / 580 120 / 700 Output: Output, Urine Amount 175 / 175 350 / 525 Other: Number of Unmeasured Voids 0 Weight 212 lb 4.812 oz Patient Weight 05/11/24 11:59 Weight 212 lb 4.812 oz Laboratory Results - last 24 hr 05/11/24 06:37: Sodium 140, Potassium 4.1, Chloride 103, Carbon Dioxide 35 H, Anion Gap 6.1, BUN 18 H, Creatinine 0.90 D, Estimated Creat Clear 63, Estimated GFR 60, Est GFR ( Amer) 72 D, Glucose 102 H, Calcium 8.7 I & O for Labs for Last 24 Hours: Intake & Output 05/08/24 05/09/24 05/10/24 05/11/24 11:59 11:59 11:59 11:59 Intake Total 510 / 510 1050 / 1050 700 / 700 Output Total 800 / 800 1750 / 1750 525 / 525 Balance -290 / -290 -700 / -700 175 / 175 Weight 215 lb 14.4 oz 212 lb 4.8 oz 212 lb 4.812 oz Microbiology Reports for the Last 24 Hours: Microbiology 05/10/24 20:50 Sputum - Expectorated Sputum Gram Stain - Final 05/09/24 12:07 Blood Blood Culture - Preliminary NO GROWTH AFTER 24 HOURS 05/09/24 12:15 Blood Blood Culture - Preliminary NO GROWTH AFTER 24 HOURS Constitutional: Present no acute distress Comment:: Sitting on bedpan in bed at present. Respiratory: Present wheezes (Scattered anteriorly) Cardiac: Present Reg Rate and Rhythm GI: Present soft, normal bowel sounds and other (Obese) Extremities: Present edema and joint swelling (Left knee) Comment:: Right leg with minimal edema. Wrinkled skin of bilateral lower extremities with excoriations. Left leg with edema and foot rotated outwards. Skin: Present dry (Bilateral lower legs.) Neuro: Present alert, awake and oriented x 3 Assessment and Plan *Assessment and plan (1) Inability to bear weight: Status: Acute Category: Medical Code(s): R26.89 - Other abnormalities of gait and mobility (2) Chronic pain of left ankle: Status: Acute Category: Medical Code(s): M25.572 - Pain in left ankle and joints of left foot; G89.29 - Other chronic pain (3) Lumbar radiculopathy: Status: Acute Category: Medical Code(s): M54.16 - Radiculopathy, lumbar region (4) General weakness: Status: Acute Category: Medical Code(s): R53.1 - Weakness (5) Sleep apnea: Status: Acute Category: Medical Code(s): G47.30 - Sleep apnea, unspecified (6) Diabetes: Status: Acute Category: Medical Code(s): E11.9 - Type 2 diabetes mellitus without complications (7) Hypertension: Status: Acute Category: Medical Code(s): I10 - Essential (primary) hypertension (8) Depression: Status: Acute Category: Medical Code(s): F32.A - Depression, unspecified (9) GERD (gastroesophageal reflux disease): Status: Acute Category: Medical Code(s): K21.9 - Gastro-esophageal reflux disease without esophagitis (10) Hyperlipidemia: Status: Acute Category: Medical Code(s): E78.5 - Hyperlipidemia, unspecified (11) Anemia: Status: Acute Category: Medical Code(s): D64.9 - Anemia, unspecified (12) Hypoxia: Status: Acute Category: Medical Code(s): R09.02 - Hypoxemia (13) Obesity: Status: Acute Category: Medical Code(s): E66.9 - Obesity, unspecified Plan Patient continues with productive cough and requires O2. Physical therapy is seeing patient. Care management has been consulted. Dr. Adamson entry - Saw patient, agree with above note. Plan to check CT of chest as CXR does not show pneumonia.
[2024-05-11 08:00] VITALS: BP 150/64; PULSE 66; RESP 19; TEMP 37.2; O2SAT 93
[2024-05-11 08:05] LABS: Basophils % 0.3 % (0.1-2.0); Eosinophils # 0.2 K/mm3 (0.0-0.4); Eosinophils % 3.2 % (0.1-12.0); Hematocrit 32.8 % (37.0-47.0); Hemoglobin 9.7 g/dL (12.2-16.2); Lymphocytes # 1.1 K/mm3 (0.7-4.5); Lymphocytes % 17.8 % (10-50); Mean Corpuscular HGB Conc 29.5 g/dL (31.8-35.4); Mean Corpuscular Hemoglobin 23.7 pg (27.0-31.2); Mean Corpuscular Volume 80.4 fl (81-99); Mean Platelet Volume 9.1 fl (7.4-10.4); Monocytes # 0.7 K/mm3 (0.1-1.0); Monocytes % 10.5 % (1.7-9.3); Neutrophils # 4.2 K/mm3 (1.8-7.8); Neutrophils % 68.3 % (37.0-80.0); Platelet Count 178 K/mm3 (142-424); Red Blood Count 4.07 M/mm3 (4.20-5.40); Red Cell Distribution Width 19.7 % (11.5-17.5); White Blood Count 6.2 K/mm3 (4.8-10.8)
[2024-05-11] MEDS: METOPROLOL SUCCINATE XL 50MG TABLET 50 MG PO (08:50)
[2024-05-11] MEDS: METFORMIN 500MG TABLET 500 MG PO ×2 (08:50→17:41)
[2024-05-11] MEDS: CITALOPRAM 40MG TABLET 40 MG PO (08:50)
[2024-05-11] MEDS: FAMOTIDINE 20MG TABLET 40 MG PO (08:51)
[2024-05-11] MEDS: PREGABALIN 25MG CAPSULE 75 MG PO ×2 (08:53→20:10)
--- NOTE | 2024-05-11 09:09 | CT_ITS ---
FINAL REPORT TECHNIQUE: Axial imaging of the chest is obtained after the administration of contrast. 3-D MIP reformatted images were also obtained and reviewed per PE protocol. CLINICAL HISTORY: Hypoxia COMPARISON: 02/22/2024 FINDINGS: The heart is enlarged which is unchanged from prior exam. The pulmonary arteries are well filled. There is no evidence of pulmonary embolus. There is no aortic dissection or intimal flap. There is no axillary lymphadenopathy. There is a stable, enlarged pretracheal lymph node measuring 25 mm. Additional enlarged mediastinal lymph nodes are also stable. There is no hilar lymphadenopathy. There is a small left pleural effusion. There is no pericardial effusion. There is left lower lobe atelectasis. The nodular groundglass opacities in the left upper lobe and right lower lobe are unchanged. Largest nodule is stable at 17 mm. There is interlobular septal thickening which is improved. Limited imaging of the upper abdomen demonstrates cholelithiasis. Liver has a nodular contour. T12 compression fracture is unchanged from prior exam. There is no acute osseous abnormality. IMPRESSION: No PE or dissection. Persistent mediastinal lymphadenopathy. Neoplasm not excluded. Nodular groundglass opacities in the left upper lobe and right lower lobe, stable from prior exam. Continued follow-up recommended. Possible cirrhosis. Reviewed, Interpreted and Dictated by Michelle Frank MD Transcribed by Laina Khalil Authenticated and [facility]
[2024-05-11] MEDS: 0.9 % SODIUM CHLORIDE 50 ML VIAL IV (09:46)
[2024-05-11] MEDS: IOPAMIDOL-370 (76%);100ML BOTTLE 70 ML IV (09:46)
[2024-05-11] MEDS: SODIUM CHLORIDE 0.9% 10ML SYR (RAD ONLY) 10 ML IV (09:46)
--- NOTE | 2024-05-11 10:30 | SW/DCPLANNER ---
Addendum entered by Melony Kim 05/13/24 13:39: Patient has been accepted to [facility] private pay. Patient will need to have belongings from home prior to admission including home O2. I have attempted to contact patient's friend that will be gathering her belongings (Laina Ibrahim [phone]) regarding a time of delivery. Patient can not discharge to [facility] till this happens. I will continue to follow up w/ patient, friend, and [facility]. Addendum entered by Melony Kim 05/13/24 11:14: Patient is now agreeable to placement under private pay at [facility]. Patient information has been faxed to [facility]. I will follow up w/ [facility] once information is reviewed. Original Note: I spoke w/ this patient regarding plans once medically stable for discharge. PT/OT evaluated patient and recommended SNF level of care. Due to patient being in OBS I explained that her Medicare benefit would not cover SNF. Patient is not agreeable to placement under private pay at this time. Patient is agreeable to home health services if covered by insurance. Patient does not have a home health preference. Patient stated that she does have a friend that helps her at home when needed but does not have any family. I have provided patient w/ a private sitters list at this time. I will also set up home health at time of discharge. Discharge date is unknown at this time. I will continue to follow up.
[2024-05-11 11:21] VITALS: BMI 34.1
[2024-05-11 16:05] VITALS: BP 155/70; PULSE 59; RESP 17; TEMP 36.7; O2SAT 94
[2024-05-11 16:08] VITALS: O2SAT 94
[2024-05-11 20:00] VITALS: O2SAT 93
[2024-05-11] MEDS: ACETAMINOPHEN 325MG TAB 650 MG PO (20:11)
[2024-05-11 20:12] VITALS: BP 164/74; PULSE 60; RESP 19; TEMP 37; O2SAT 93
[2024-05-12 04:00] VITALS: BMI 34.1
[2024-05-12 05:12] VITALS: BP 167/74; PULSE 54; RESP 19; TEMP 36.8; O2SAT 93
--- NOTE | 2024-05-12 05:12 | PC.NURSE ---
Patient has rested throughout the night comfortably. Patient remains on 3L of O2 with nasal cannula, lung sounds have wheezing noted on exhaling throughout, bowel sounds active in all quadrants, Pt has used external catheter during this shift 150ml of urine out put noted in canister, about 200ml of urine output noted on brief, pt was changed and repositioned. pt took PRN tyelnol twice this shift, see EMAR. pt states she has slept well tonight and denies any needs at this time.
[2024-05-12] MEDS: ACETAMINOPHEN 325MG TAB 650 MG PO ×2 (05:14→15:59)
[2024-05-12] MEDS: FLUTICASONE/SALMETEROL 250/50MCG DISKUS 1 PUFF IH ×2 (06:28→18:45)
--- NOTE | 2024-05-12 08:18 | EXP.ACUTE.PN ---
Subjective *Date: 05/12/24 *Time: 09:14 Interval history: Patient states she is feeling well this morning. She did sleep. She has eaten all her breakfast. She feels her breathing is better. Her cough is only infrequent. Her bowels finally moved yesterday which made her feel better. She did not stand or walk yesterday. She does sit on the side of the bed. She does feel the discomfort is somewhat better in the left lower extremity and feels she might be able to stand today. CTA of the chest on 05/11/2024 showed no PE or dissection. Persistent mediastinal lymphapathy. Neoplasm not excluded. Nodular pete groundglass opacities in the left upper lobe and right upper lobe stable from prior exam. Possible cirrhosis. Medical Exam Vital signs and Labs for Last 24 Hours: Vital Signs Temp Pulse Resp BP Pulse Ox O2 Del Method O2 Flow Rate 05/12/24 05:12 98.3 F 54 L 19 167/74 H 93 L Nasal Cannula 3 05/12/24 05:00 Nasal Cannula 3 05/12/24 04:00 Nasal Cannula 3 05/12/24 03:00 Nasal Cannula 3 05/12/24 02:28 Nasal Cannula 3 05/12/24 01:00 Nasal Cannula 3 05/12/24 00:00 Nasal Cannula 3 05/11/24 23:00 Nasal Cannula 3 05/11/24 22:00 Nasal Cannula 3 05/11/24 21:15 Nasal Cannula 3 05/11/24 20:12 98.6 F 60 19 164/74 H 93 L Nasal Cannula 3 05/11/24 20:00 Nasal Cannula 3 05/11/24 20:00 93 L Nasal Cannula 3 05/11/24 19:17 Nasal Cannula 3 05/11/24 18:32 Nasal Cannula 3 05/11/24 17:43 Nasal Cannula 3 05/11/24 16:08 94 L Nasal Cannula 3 05/11/24 16:05 98.1 F 59 L 17 155/70 H 94 L Nasal Cannula 3 05/11/24 15:10 Nasal Cannula 3 05/11/24 13:00 Nasal Cannula 3 05/11/24 10:54 Nasal Cannula 3 05/11/24 09:00 Nasal Cannula 3 Intake and Output 05/11/24 05/12/24 05/12/24 19:59 03:59 11:59 Other: Number of Unmeasured Voids 1 1 Weight 212 lb 4.53 oz Patient Weight 05/12/24 11:59 Weight 212 lb 4.53 oz I & O for Labs for Last 24 Hours: Intake & Output 05/09/24 05/10/24 05/11/24 05/12/24 11:59 11:59 11:59 11:59 Intake Total 510 / 510 1050 / 1050 970 / 970 Output Total 800 / 800 1750 / 1750 525 / 525 Balance -290 / -290 -700 / -700 445 / 445 Weight 215 lb 14.4 oz 212 lb 4.8 oz 212 lb 4.53 oz 212 lb 4.53 oz Microbiology Reports for the Last 24 Hours: Microbiology 05/09/24 12:07 Blood Blood Culture - Preliminary NO GROWTH AFTER 48 HOURS 05/09/24 12:15 Blood Blood Culture - Preliminary NO GROWTH AFTER 48 HOURS Constitutional: Present no acute distress Comment:: Sitting on the bedside and has completed all of her breakfast. She appears most comfortable. Respiratory: Present crackles (Bilateral basilar crackles) Cardiac: Present Reg Rate and Rhythm GI: Present soft, normal bowel sounds and hernia (Umbilical); Absent distention or tenderness Comments:: Obese Extremities: Present edema (Left lower extremity) Comment:: Left leg is larger than the right with tuft recalled skin from the knees down bilaterally. External rotation at the left ankle Neuro: Present alert, awake and oriented x 3 Assessment and Plan *Assessment and plan (1) Inability to bear weight: Status: Acute Category: Medical Code(s): R26.89 - Other abnormalities of gait and mobility (2) Chronic pain of left ankle: Status: Acute Category: Medical Code(s): M25.572 - Pain in left ankle and joints of left foot; G89.29 - Other chronic pain (3) Lumbar radiculopathy: Status: Acute Category: Medical Code(s): M54.16 - Radiculopathy, lumbar region (4) General weakness: Status: Acute Category: Medical Code(s): R53.1 - Weakness (5) Sleep apnea: Status: Acute Category: Medical Code(s): G47.30 - Sleep apnea, unspecified (6) Diabetes: Status: Acute Category: Medical Code(s): E11.9 - Type 2 diabetes mellitus without complications (7) Hypertension: Status: Acute Category: Medical Code(s): I10 - Essential (primary) hypertension (8) Depression: Status: Acute Category: Medical Code(s): F32.A - Depression, unspecified (9) GERD (gastroesophageal reflux disease): Status: Acute Category: Medical Code(s): K21.9 - Gastro-esophageal reflux disease without esophagitis (10) Hyperlipidemia: Status: Acute Category: Medical Code(s): E78.5 - Hyperlipidemia, unspecified (11) Anemia: Status: Acute Category: Medical Code(s): D64.9 - Anemia, unspecified (12) Hypoxia: Status: Acute Category: Medical Code(s): R09.02 - Hypoxemia (13) Obesity: Status: Acute Category: Medical Code(s): E66.9 - Obesity, unspecified (14) Degenerative disc disease, lumbar: Status: Acute Category: Medical Code(s): M51.36 - Other intervertebral disc degeneration, lumbar region (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 Disposition is a problem. Physical therapy to see patient today. Blood pressure has been elevated. Will restart her home medicine of irbesartan Dr. Adamson entry - Saw patient, agree with above note. PT will work with patient today.
[2024-05-12 08:25] VITALS: O2SAT 94
[2024-05-12] MEDS: METFORMIN 500MG TABLET 500 MG PO ×2 (08:25→17:52)
[2024-05-12] MEDS: FAMOTIDINE 20MG TABLET 40 MG PO (08:52)
[2024-05-12] MEDS: PREGABALIN 25MG CAPSULE 75 MG PO ×2 (08:52→20:06)
[2024-05-12] MEDS: METOPROLOL SUCCINATE XL 50MG TABLET 50 MG PO (08:52)
[2024-05-12] MEDS: CITALOPRAM 40MG TABLET 40 MG PO (08:52)
[2024-05-12 08:58] VITALS: BP 185/76; PULSE 57; RESP 17; TEMP 36.7; O2SAT 96
[2024-05-12] MEDS: IRBESARTAN 300MG TABLET 300 MG PO (09:47)
--- NOTE | 2024-05-12 13:36 | PC.NURSE ---
PT at bedside.
[2024-05-12 17:04] VITALS: BP 133/60; PULSE 51; PULSE 52; RESP 17; TEMP 36.3; O2SAT 96
--- NOTE | 2024-05-12 18:13 | PC.NURSE ---
Patient taken to 2nd floor at this time via wheelchair.
[2024-05-12 18:46] VITALS: O2SAT 93
--- NOTE | 2024-05-12 19:03 | PC.NURSE ---
PATIENT BACK TO FLOOR, ROOM 210 AROUND 1800. A&OX4. X2 ASSIST FROM CHAIR TO BED, BUT DOES WELL WITH HER WALKER. TOLERATING 3LNC WELL. IN [employer] SPIRITS. BED SAFETY IN PLACE. VSS.
[2024-05-12 20:00] VITALS: BP 127/59; PULSE 57; RESP 18; TEMP 36.4; O2SAT 91
--- NOTE | 2024-05-13 03:10 | PC.NURSE ---
02 at 3lnc. 02 sats 91-92%. Resting in bed. Voices no complaints of pain/discomfort. Vital signs stable, afebrile.
[2024-05-13 04:00] VITALS: BP 142/66; PULSE 54; RESP 18; TEMP 36.6; O2SAT 94; BMI 34.3
[2024-05-13] MEDS: FLUTICASONE/SALMETEROL 250/50MCG DISKUS 1 PUFF IH (06:27)
[2024-05-13 08:00] VITALS: BP 144/70; PULSE 67; RESP 18; TEMP 36.8; O2SAT 90
[2024-05-13] MEDS: IRBESARTAN 300MG TABLET 300 MG PO (08:07)
[2024-05-13] MEDS: METOPROLOL SUCCINATE XL 50MG TABLET 50 MG PO (08:07)
[2024-05-13] MEDS: PREGABALIN 25MG CAPSULE 75 MG PO (08:07)
[2024-05-13] MEDS: METFORMIN 500MG TABLET 500 MG PO (08:07)
[2024-05-13] MEDS: CITALOPRAM 40MG TABLET 40 MG PO (08:07)
[2024-05-13] MEDS: OLOPATADINE 0.1% OP (08:07)
[2024-05-13] MEDS: FLUTICASONE PROPIONATE 50 MCG 2 SPRAY NS (08:08)
[2024-05-13] MEDS: AZELASTINE 274 MCG NS (08:08)
--- NOTE | 2024-05-13 08:26 | EXP.ACUTE.PN ---
Subjective *Date: 05/13/24 *Time: 09:02 Interval history: Patient states she is feeling better today. She has been able to walk 10 feet with PT. She is still weak. She is on oxygen. Medical Exam Vital signs and Labs for Last 24 Hours: Vital Signs Temp Pulse Resp BP Pulse Ox O2 Del Method O2 Flow Rate 05/13/24 06:40 Nasal Cannula 3 05/13/24 04:55 Nasal Cannula 3 05/13/24 04:00 97.8 F 54 L 18 142/66 H 94 L Nasal Cannula 3 05/13/24 02:59 Nasal Cannula 3 05/13/24 01:00 Nasal Cannula 3 05/12/24 23:00 Nasal Cannula 3 05/12/24 21:00 Nasal Cannula 3 05/12/24 20:00 91 L Nasal Cannula 3 05/12/24 20:00 97.6 F 57 L 18 127/59 L 91 L Nasal Cannula 3 05/12/24 19:00 Nasal Cannula 3 05/12/24 18:46 93 L Nasal Cannula 3 05/12/24 17:07 Nasal Cannula 3 05/12/24 17:04 52 L 96 Nasal Cannula 3 05/12/24 17:04 97.3 F L 51 L 17 133/60 96 Nasal Cannula 3 05/12/24 15:55 Nasal Cannula 3 05/12/24 13:51 Nasal Cannula 3 05/12/24 11:25 Nasal Cannula 3 05/12/24 09:09 Nasal Cannula 3 05/12/24 08:58 98.0 F 57 L 17 185/76 H 96 Nasal Cannula 3 Intake and Output 05/12/24 05/13/24 05/13/24 19:59 03:59 11:59 Intake Total 360 / 600 240 / 600 Output Total 200 / 200 0 / 200 Balance 160 / 400 240 / 400 Intake: Intake, Oral Amount 360 / 600 240 / 600 Output: Output, Urine Amount 200 / 200 0 / 200 Other: Number of Unmeasured Voids 1 Number of Bowel Movements 1 Weight 213 lb 8 oz Patient Weight 05/13/24 11:59 Weight 213 lb 8 oz I & O for Labs for Last 24 Hours: Intake & Output 05/10/24 05/11/24 05/12/24 05/13/24 11:59 11:59 11:59 11:59 Intake Total 1050 / 1050 970 / 970 270 / 270 600 / 600 Output Total 1750 / 1750 525 / 525 200 / 200 200 / 200 Balance -700 / -700 445 / 445 70 / 70 400 / 400 Weight 212 lb 4.8 oz 212 lb 4.53 oz 212 lb 4.53 oz 213 lb 8 oz Microbiology Reports for the Last 24 Hours: Microbiology 05/10/24 20:50 Sputum - Expectorated Sputum Gram Stain - Final 05/10/24 20:50 Sputum - Expectorated Sputum Sputum Culture - Preliminary Constitutional: Present no acute distress Respiratory: Present decreased breath sounds and CTA bilaterally Cardiac: Present Reg Rate and Rhythm GI: Present soft; Absent distention or tenderness Extremities: Present edema (bilateral LE's) Skin: Present intact Neuro: Present alert, awake and oriented x 3 Assessment and Plan *Assessment and plan (1) Inability to bear weight: Status: Acute Category: Medical Code(s): R26.89 - Other abnormalities of gait and mobility (2) Chronic pain of left ankle: Status: Acute Category: Medical Code(s): M25.572 - Pain in left ankle and joints of left foot; G89.29 - Other chronic pain (3) Lumbar radiculopathy: Status: Acute Category: Medical Code(s): M54.16 - Radiculopathy, lumbar region (4) General weakness: Status: Acute Category: Medical Code(s): R53.1 - Weakness (5) Sleep apnea: Status: Acute Category: Medical Code(s): G47.30 - Sleep apnea, unspecified (6) Diabetes: Status: Acute Category: Medical Code(s): E11.9 - Type 2 diabetes mellitus without complications (7) Hypertension: Status: Acute Category: Medical Code(s): I10 - Essential (primary) hypertension (8) Depression: Status: Acute Category: Medical Code(s): F32.A - Depression, unspecified (9) GERD (gastroesophageal reflux disease): Status: Acute Category: Medical Code(s): K21.9 - Gastro-esophageal reflux disease without esophagitis (10) Hyperlipidemia: Status: Acute Category: Medical Code(s): E78.5 - Hyperlipidemia, unspecified (11) Anemia: Status: Acute Category: Medical Code(s): D64.9 - Anemia, unspecified (12) Hypoxia: Status: Acute Category: Medical Code(s): R09.02 - Hypoxemia (13) Obesity: Status: Acute Category: Medical Code(s): E66.9 - Obesity, unspecified (14) Degenerative disc disease, lumbar: Status: Acute Category: Medical Code(s): M51.36 - Other intervertebral disc degeneration, lumbar region (15) Left ankle instability: Status: Acute Category: Medical Code(s): M25.372 - Other instability, left ankle (1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 Category: Medical Code(s): M21.962 - Unspecified acquired deformity of left lower leg Plan Doing better. Able to walk with PT. May be able to discharge today. Will discuss with Dr. Adamson. Dr. Adamson entry - Saw patient, agree with above note. Rounded with care management today, discussed discharge options with patient. She is still deciding between short term SNF placement or home with sitters.
[2024-05-13] MEDS: FAMOTIDINE 20MG TABLET 40 MG PO (08:52)
--- NOTE | 2024-05-13 14:57 | PC.NURSE ---
THIS NURSE TOOK OVER CARE OF PATIENT AT THIS TIME.
--- NOTE | 2024-05-13 15:26 | PC.NURSE ---
PATIENT RA SATURATION 68% ON ROOM AIR AT REST.
--- NOTE | 2024-05-13 15:34 | EXP.DC.SUM ---
General Admission date:: 05/08/24 Discharge date: 05/13/24 HPI HPI HPI: Mrs. Nascimento is an 83 year old female patient of [facility] who has been in declining health recently. She was admitted a little over a month ago for pneumonia with hypoxic respiratory failure and renal failure. She was just able to be wean off of supplemental oxygen a few weeks ago. She had been feeling stronger but had new problems yesterday. Last night she was at home and was unable to stand due to weakness and pain in her left ankle. She eventually got to her knees and was able to crawl to the phone and call for help. She states she never lost consciousness and did not fall. She has a long history of orthopedic issues with her ankle and with fractures and surgeries. She typically uses a walker to assist with ambulation. She currently lives at home by herself. Hospital Course Hospital Course Hospital Course: The patient was admitted and physical therapy saw the patient. They felt she would need rehab. A chest x-ray was ordered and was abnormal. She also had anemia. She had been requiring supplemental oxygen and had a room air sat of 68% at rest. Her repeat chest x-ray showed mild linear atelectasis in the lung bases but no pneumonia. She continued to have difficulty with ambulation and could only walk with assistance. She had a CTA of the chest which showed no PE or dissection. It did show persistent mediastinal lymphadenopathy. It also showed nodular groundglass opacities in the left upper lobe and right upper lobe stable from prior exam. The patient was agreeable to go to [facility] for rehab. A bed was found for her and she is stable for discharge today. Exam Data for Last 24 hours Vital signs and Labs for Last 24 Hours: Temp Pulse Resp BP Pulse Ox O2 Del Method O2 Flow Rate 98.2 F 67 18 144/70 H 90 L Room Air 3 05/13/24 08:00 05/13/24 08:00 05/13/24 08:00 05/13/24 08:00 05/13/24 08:00 05/13/24 14:36 05/13/24 08:00 I & O for Last 24 hours: Intake & Output 05/11/24 05/12/24 05/13/24 05/14/24 11:59 11:59 11:59 11:59 Intake Total 970 / 970 270 / 270 1000 / 1000 Output Total 525 / 525 200 / 200 200 / 200 Balance 445 / 445 70 / 70 800 / 800 Weight 212 lb 4.53 oz 212 lb 4.53 oz 213 lb 8 oz Microbiology Reports for the Last 24 Hours: Microbiology 05/09/24 12:07 Blood Blood Culture - Preliminary NO GROWTH AFTER 4 DAYS 05/09/24 12:15 Blood Blood Culture - Preliminary NO GROWTH AFTER 4 DAYS 05/10/24 20:50 Sputum - Expectorated Sputum Gram Stain - Final 05/10/24 20:50 Sputum - Expectorated Sputum Sputum Culture - Preliminary Gram Positive Cocci Narrative: Constitutional Constitutional: no acute distress *Routine HEENT Exam Head: Present normocephalic Eye: Present EOMI and PERRL ENT: Present mucous membranes moist *Routine Neck Exam Neck: Present supple; Absent lymphadenopathy *Routine Respiratory Exam Respiratory: Present CTA bilaterally *Routine Cardiovascular Exam Cardiovascular: Present RRR *Routine Abdominal Exam Abdominal: Present soft and normoactive bowel sounds; Absent tenderness *Routine Rectal Exam Rectal:: deferred *Routine Genitalia Exam Genitalia:: deferred *Routine Extremities Exam Extremities: Absent cyanosis, clubbing or edema Comments: chronic deformity of the left ankle, with foot externally rotated *Routine Skin Exam Skin: Present warm Comments: Dull skin redness with thickening of the skin over the anterior portion of both lower legs, few small healing skin wounds as well *Routine Neurological Exam Neurological: Present alert and oriented X3 Results Data Completed and Pending Labs on day of discharge: Preliminary micro results at discharge 05/09/24 12:07 Blood Culture - Preliminary Blood NO GROWTH AFTER 4 DAYS 05/09/24 12:15 Blood Culture - Preliminary Blood NO GROWTH AFTER 4 DAYS 05/10/24 20:50 Sputum Culture - Preliminary Sputum - Expectorated Sputum Gram Positive Cocci DS: Diagnosis Discharge Diagnosis (1) Inability to bear weight: Status: Acute Code(s): R26.89 - Other abnormalities of gait and mobility (2) Chronic pain of left ankle: Status: Acute Code(s): M25.572 - Pain in left ankle and joints of left foot; G89.29 - Other chronic pain (3) Lumbar radiculopathy: Status: Acute Code(s): M54.16 - Radiculopathy, lumbar region (4) General weakness: Status: Acute Code(s): R53.1 - Weakness (5) Sleep apnea: Status: Acute Code(s): G47.30 - Sleep apnea, unspecified (6) Diabetes: Status: Acute Code(s): E11.9 - Type 2 diabetes mellitus without complications (7) Hypertension: Status: Acute Code(s): I10 - Essential (primary) hypertension (8) Depression: Status: Acute Code(s): F32.A - Depression, unspecified (9) GERD (gastroesophageal reflux disease): Status: Acute Code(s): K21.9 - Gastro-esophageal reflux disease without esophagitis (10) Hyperlipidemia: Status: Acute Code(s): E78.5 - Hyperlipidemia, unspecified (11) Anemia: Status: Acute Code(s): D64.9 - Anemia, unspecified (12) Hypoxia: Status: Acute Code(s): R09.02 - Hypoxemia (13) Obesity: Status: Acute Code(s): E66.9 - Obesity, unspecified (14) Degenerative disc disease, lumbar: Status: Acute Code(s): M51.36 - Other intervertebral disc degeneration, lumbar region (15) Left ankle instability: Status: Acute Code(s): M25.372 - Other instability, left ankle (1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 Code(s): M21.962 - Unspecified acquired deformity of left lower leg Meds Home Medications and Allergies Home Medications ?Medication ?Instructions ?Recorded ?Confirmed ?Type metformin 500 mg tablet 500 mg PO BIDWMEAL 03/06/18 05/09/24 History montelukast 10 mg tablet 10 mg PO PM 03/06/18 05/09/24 History pregabalin 75 mg capsule (Lyrica) 75 mg PO BID 03/06/18 05/09/24 History simvastatin 20 mg tablet 20 mg PO HS 03/06/18 05/09/24 History escitalopram oxalate 20 mg tablet 20 mg PO DAILY 11/10/23 05/09/24 History fluticasone 250 mcg-salmeterol 50 1 ea inhalation BID 11/10/23 05/09/24 History mcg/dose blistr powdr for inhalation (Wixela Inhub) oxybutynin chloride 10 mg 20 mg PO DAILY 11/10/23 05/09/24 History tablet,extended release 24 hr mv-mn-folic 200 mcg-vit K 15 1 cap PO BID 11/11/23 05/09/24 History mcg-lutein 5 mg-zeaxanthin 1 mg capsule (PreserVision AREDS 2 Plus Multivit) magnesium oxide 400 mg (241.3 mg 400 mg PO DAILY 02/20/24 05/09/24 History magnesium) tablet furosemide 20 mg tablet (Lasix) 20 mg PO DAILY #30 tabs 02/25/24 05/09/24 Rx irbesartan 300 mg tablet 300 mg PO DAILY #30 tabs 02/25/24 05/09/24 Rx amlodipine 5 mg tablet 5 mg PO DAILY 05/09/24 05/09/24 History esomeprazole magnesium 40 mg 40 mg PO DAILY 05/09/24 05/09/24 History capsule,delayed release metoprolol succinate 50 mg 50 mg PO DAILY 05/09/24 05/09/24 History tablet,extended release 24 hr tizanidine 2 mg tablet 2 mg PO HSP PRN Muscle Pain 05/09/24 05/09/24 History azelastine 137 mcg (0.1 %) nasal 2 spray intranasal DAILY 05/12/24 05/12/24 History spray fluticasone propionate 50 2 spray intranasal DAILY 05/12/24 05/12/24 History mcg/actuation nasal spray,suspension olopatadine 0.7 % eye drops 1 drp ophthalmic (eye) DAILY 05/12/24 05/12/24 History (Pataday Once Daily Relief) New Prescriptions to Start Prescriptions: Allergies Allergy/AdvReac Type Severity Reaction Status Date / Time pollen extracts Allergy Intermediate ASTHMA Verified 11/10/23 10:41 [POLLEN EXTRACTS] Discharge Plan Disposition Patient Disposition: Xfer Other Condition: Fair Discharge Order Discharge Orders: Discharge Order (Routine); Ordered 05/13/24 Ordered By: Allan Adamson Follow up Plan Follow up with: Allan Adamson MD [Primary Care Provider] - 2 weeks Prescriptions/Medication Reconciliation: Continued fluticasone propion-salmeterol [Wixela Inhub] 250-50 mcg/dose blister with device 1 ea INHALATION BID oxybutynin chloride 10 mg tablet extended release 24hr 20 mg PO DAILY Patient Comments: TAKE 2 TABLETS BY MOUTH ONCE DAILY escitalopram oxalate 20 mg tablet 20 mg PO DAILY Patient Comments: TAKE 1 TABLET BY MOUTH ONCE DAILY PreserVision AREDS 2 Plus MV 200 mcg-15 mcg- 5 mg-1 mg Capsule 1 cap PO BID magnesium oxide 400 mg (241.3 mg magnesium) tablet 400 mg PO DAILY Patient Comments: TAKE 1 TABLET BY MOUTH ONCE DAILY irbesartan 300 mg Tablet 300 mg PO DAILY Qty: 30 0RF furosemide [Lasix] 20 mg tablet 20 mg PO DAILY Qty: 30 0RF metformin 500 MG tablet 500 mg PO BIDWMEAL simvastatin 20 tablet 20 mg PO HS montelukast 10 MG tablet 10 mg PO PM pregabalin [Lyrica] 75 capsule 75 mg PO BID metoprolol succinate 50 mg tablet extended release 24 hr 50 mg PO DAILY Patient Comments: TAKE 1 TABLET BY MOUTH ONCE DAILY amlodipine 5 mg tablet 5 mg PO DAILY Patient Comments: TAKE 1 TABLET BY MOUTH ONCE DAILY esomeprazole magnesium 40 mg capsule,delayed release(DR/EC) 40 mg PO DAILY tizanidine 2 mg tablet 2 mg PO HSP PRN (Reason: Muscle Pain) azelastine 137 mcg (0.1 %) [place],Non-Aerosol 2 spray INTRANASAL DAILY Rx Instructions: administer into each nostril fluticasone propionate 50 mcg/actuation [place],Suspension 2 spray INTRANASAL DAILY Rx Instructions: administer into each nostril Pataday Once Daily Relief 0.7 % Drops 1 drp OPHTHALMIC (EYE) DAILY Problem Reconciliation Problems Reviewed?: Yes Patient Discharge Instructions ACTIVITY: Continue current activity DIET: continue same diet Additional Instructions: PT/OT at [facility] Patient Instructions: Weight-bearing Exercise, How to Prevent Falls, DI for Ankle Pain Print Language: Luxembourgish Providers Primary Care Provider: Allan Adamson Admit Provider: Cody Hernandez Attending Provider: Allan Adamson
--- NOTE | 2024-05-14 14:54 | CARE MANAGER ---
Contacted patient related to hospital discharge. She states she is ok. She feels better today than last night. She is aware needing to follow up with Dr. Adamson. NEO Michele
== END 2024-05-13 16:22 | disposition home or self-care (01) ==
LOC: ER 23:05 → 2ND 23:38 → OB 05-11 14:32 → 2ND 05-12 17:22
PROVIDERS: Admitting Provider Internal Medicine Adolescent Medicine; Emergency Provider Student in an Organized Health Care Education/Training Program; PCP Family Medicine; Visit Provider Family Medicine
DX: R26.89 Other abnormalities of gait and mobility (principal); M25.572 Pain in left ankle and joints of left foot; G89.29 Other chronic pain; W07.XXXA Fall from chair, initial encounter; M54.16 Radiculopathy, lumbar region; R53.1 Weakness; G47.30 Sleep apnea, unspecified; E11.9 Type 2 diabetes mellitus without complications; I10 Essential (primary) hypertension; F32.A Depression, unspecified; K21.9 Gastro-esophageal reflux disease without esophagitis; E78.5 Hyperlipidemia, unspecified; D64.9 Anemia, unspecified; R09.02 Hypoxemia; E66.9 Obesity, unspecified; Z68.34 Body mass index [BMI] 34.0-34.9, adult; M51.36 Other intervertebral disc degeneration, lumbar region; M25.372 Other instability, left ankle; M21.962 Unspecified acquired deformity of left lower leg; Z79.899 Other long term (current) drug therapy; Z79.84 Long term (current) use of oral hypoglycemic drugs
CPT/HCPCS: 36415; 71045; 71275; 73590; 73610; 80048; 80053; 81001; 85025; 87040; 87070; 87077; 87186; 87205; 94640; 94760; 94761; 97116; 97161; 97530; 99285; G0378; Q9967

== ENCOUNTER 2024-06-27 11:42 | Observation (INO) | payer MEDICARE, BC, SELFPAY ==
[2024-06-27] VITALS (12 sets, daily range): BP systolic 135–166; BP diastolic 52–66; PULSE 51–60; RESP 18–22; TEMP 36.5–36.7; O2SAT 88–95; BMI 34.3; BMI 33.7
--- NOTE | 2024-06-27 11:49 | HMH.EDGENADL ---
Discharge Plan Disposition Patient Disposition: Admitted Condition: Fair Clinical Impressions Clinical Impression: Ankle pain Discharge ED Provider: Kaylene Gallardo General Adult HPI General Chief complaint: Extremity Problem,Nontraumatic Stated complaint: LEFT ANKLE PAIN Time Seen by Provider: 06/27/24 11:45 Mode of Arrival: EMS Source of Information: Patient and EMS Limitations: Physical Limitations Description of Symptoms (Recalled from ER Triage Doc. by RN): left ankle pain and deformity. History of Present Illness HPI narrative: Patient is an 83-year-old with past medical history significant for debility in the setting of heart failure hypertension chronic left ankle fracture baseline hypoxic respiratory failure on 3 L nasal cannula at home presents to the emergency department after difficulty bearing weight on her left ankle. Patient currently lives at home but was being moved to an assisted living facility today when she was trying to bear weight on her left ankle using a walker and felt instability of her left ankle with pain 10 out of 10. Patient has no pain whenever she is not putting weight on the ankle however whenever she puts weight on the ankle notes that the ankle everts more than normal with significant pain whenever she puts pressure on the joint. No fevers chills increased swelling or redness of the ankle. Patient has chronic venous stasis with overlying venous dermatitis that has not changed recently. Patient did not fall and did not lose consciousness. Patient was told that she can do weightbearing as tolerated of the left ankle but was not a surgical candidate so never had her ankle fracture operated on. Related Data Home Medications ?Medication ?Instructions ?Recorded ?Confirmed metformin 500 mg tablet 500 mg PO BIDWMEAL 03/06/18 05/09/24 montelukast 10 mg tablet 10 mg PO PM 03/06/18 05/09/24 pregabalin 75 mg capsule (Lyrica) 75 mg PO BID 03/06/18 05/09/24 simvastatin 20 mg tablet 20 mg PO HS 03/06/18 05/09/24 escitalopram oxalate 20 mg tablet 20 mg PO DAILY 11/10/23 05/09/24 fluticasone 250 mcg-salmeterol 50 1 ea inhalation BID 11/10/23 05/09/24 mcg/dose blistr powdr for inhalation (Wixela Inhub) oxybutynin chloride 10 mg 20 mg PO DAILY 11/10/23 05/09/24 tablet,extended release 24 hr mv-mn-folic 200 mcg-vit K 15 1 cap PO BID 11/11/23 05/09/24 mcg-lutein 5 mg-zeaxanthin 1 mg capsule (PreserVision AREDS 2 Plus Multivit) magnesium oxide 400 mg (241.3 mg 400 mg PO DAILY 02/20/24 05/09/24 magnesium) tablet amlodipine 5 mg tablet 5 mg PO DAILY 05/09/24 05/09/24 esomeprazole magnesium 40 mg 40 mg PO DAILY 05/09/24 05/09/24 capsule,delayed release metoprolol succinate 50 mg 50 mg PO DAILY 05/09/24 05/09/24 tablet,extended release 24 hr tizanidine 2 mg tablet 2 mg PO HSP PRN Muscle Pain 05/09/24 05/09/24 azelastine 137 mcg (0.1 %) nasal 2 spray intranasal DAILY 05/12/24 05/12/24 spray fluticasone propionate 50 2 spray intranasal DAILY 05/12/24 05/12/24 mcg/actuation nasal spray,suspension olopatadine 0.7 % eye drops 1 drp ophthalmic (eye) DAILY 05/12/24 05/12/24 (Pataday Once Daily Relief) Previous Rx's ?Medication ?Instructions ?Recorded furosemide 20 mg tablet (Lasix) 20 mg PO DAILY #30 tabs 02/25/24 irbesartan 300 mg tablet 300 mg PO DAILY #30 tabs 02/25/24 Allergies Allergy/AdvReac Type Severity Reaction Status Date / Time pollen extracts Allergy Intermediate ASTHMA Verified 11/10/23 10:41 [POLLEN EXTRACTS] [facility] Disclaimer: The information contained in this section may have been updated after the patient was seen, as this information can be updated by other users. Medical History (Updated 06/27/24 @ 13:19 by Kaylene Gallardo MD) CKD (chronic kidney disease) stage 3, GFR 30-59 ml/min Pneumonia Allergic rhinitis Colon polyps Hemorrhoids, internal Osteoporosis Herpes zoster Closed left ankle fracture Closed left hip fracture Lumbar spinal stenosis Lumbar compression fracture Ocular melanoma COPD (chronic obstructive pulmonary disease) Mediastinal lymphadenopathy Sleep apnea Asthma Hyperlipidemia Neuropathy Depression GERD (gastroesophageal reflux disease) Arthritis Hypertension Diabetes Surgical History (Updated 05/17/24 @ 00:00 by Yared Jackman) History of left knee replacement History of left hip replacement History of left ankle joint replacement 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 History of arthroplasty of right knee History of appendectomy Family History Heart attack Social History (Updated 05/09/24 @ 01:50 by Katie Koenig RN) Smoking Status: Never smoker alcohol intake: never substance use type: denies use current occupational status: other Travel in the last 8 weeks: None household members: none caffeine: Yes Other Medical History Have you received the Flu Vaccine for this season: No Have you received the Pneumonia Vaccine: No ROS Obtained: Yes All systems reviewed & no additional complaints except as documented Physical Exam General General appearance: alert and in no apparent distress Comment: Chronically ill-appearing woman Head Head exam: atraumatic and normocephalic Eye Eye exam: Present PERRL and EOMI ENT ENT exam: Present normal exam and mucous membranes moist Neck Neck exam: Present full ROM; Absent tenderness Chest Chest inspection: Present normal inspection and symmetric chest wall rise Respiratory Respiratory exam: Absent respiratory distress Cardiovascular Cardiovascular exam: Present regular rate, normal rhythm and other (Bilateral nonpitting edema to the knee) Abdominal Exam Abdominal exam: Present soft; Absent tenderness Extremities Exam Extremities exam: Present other (Deformity left ankle without overlying warmth swelling bruising or erythema neurovascularly intact left distal foot with palpable DP and PT pulses, bilateral jennings erythema associated with venous stasis) Back Exam Back exam: Present normal inspection; Absent tenderness Neurological Exam Neurological exam: Present alert and motor sensory deficit (Chronic decreased sensation right lower extremity) Medical Decision Making Medical Records Screening: Per USPSTF and CDC recommendations, given the prevalence of disease in our region, it is our hospital?s policy to screen for HIV and viral Hepatitis for all patients aged 18 and over and those with ongoing risk factors. Gabriele Inquiry Pt receiving controlled substance: No Vital Signs: 06/27/24 11:42 06/27/24 11:44 06/27/24 12:24 Temperature 98 F Temperature Source Oral Pulse Rate 59 L 60 Pulse Rate [Right] 57 L Respiratory Rate 18 18 Blood Pressure 166/62 H 152/52 H Blood Pressure [Right Arm] 166/62 H Blood Pressure Mean 107 125 Blood Pressure Mean [Right Arm] 96 02 Sat by Pulse Oximetry 94 L 94 L 93 L Oxygen Delivery Method Nasal Cannula Nasal Cannula Nasal Cannula Oxygen Flow Rate (LPM) 3 3 3 06/27/24 12:31 06/27/24 13:00 Temperature Temperature Source Pulse Rate 54 L 53 L Pulse Rate [Right] Respiratory Rate Blood Pressure 140/57 L 141/54 H Blood Pressure [Right Arm] Blood Pressure Mean 89 83 Blood Pressure Mean [Right Arm] 02 Sat by Pulse Oximetry 91 L 92 L Oxygen Delivery Method Nasal Cannula Nasal Cannula Oxygen Flow Rate (LPM) 3 3 Orders (Tests/Meds): ORDERS Category Date Time Status Ankle XR - Left minimum 3 Views [XR ankle LT min 3V] Exams 06/27/24 12:00 Completed Stat Fibula/tibia XR left 2 views [XR tibia fibula LT 2V] Exams 06/27/24 12:00 Completed Stat Foot XR left minimum 3 views [XR foot LT min 3V] Stat Exams 06/27/24 12:00 Completed HIV (1&2) Antibody Rapid Stat Lab 06/27/24 11:48 Ordered Hep C Ab with Reflex to RNA Stat Lab 06/27/24 11:48 Ordered Medical Decision Narrative: In summary, this 83-year-old presents to the emergency department today with left ankle pain. On initial evaluation patient is hemodynamically stable saturating appropriately on baseline 3 L nasal cannula. Differential diagnosis includes but is not limited to acute worsening of chronic fracture, dislocation, ligamentous/tendon injury, neurovascular injury. Based on these concerns, I ordered x-rays of the left foot and ankle and tib-fib. XR personally interpreted demonstrates widening of the medial tibiotalar joint which appears similar to ankle film Apr 2024. Per radiology no acute fractures. On reevaluation patient unable to bear weight on left ankle requiring maximum assistance. Patient currently lives at home alone was in the process of going to assisted living facility today however the assisted living facility is only able to check on her and does not provide 24 7 care. At this time it be most beneficial for patient to come in for rehabilitation until she is able to transition to assisted living. I had an interactive discussion with Dr. Vences with hospital medicine with recommendations to admit to hospital medicine. Of note, social determinants of health include limited health literacy. Critical Care Critical Care Time Critical Care Time: No
--- NOTE | 2024-06-27 11:53 | PC.NURSE ---
DR MORALES AT BEDSIDE
--- NOTE | 2024-06-27 12:00 | XR_ITS ---
PROCEDURE INFORMATION: Exam: XR Left Ankle Exam date and time: 06/27/2024 12:00 PM Age: 83 years old Clinical indication: Pain; Ankle; Left; Prior surgery; Surgery date: 6+ months; Surgery type: Orif; Additional info: Fall, pain TECHNIQUE: Imaging protocol: Radiologic exam of the left ankle. Views: 3 or more views. COMPARISON: CR XR ANKLE LT MIN 3V 05/08/2024 9:04 PM FINDINGS: Bones/joints: Prior screw plate fixation distal fibula with additional syndesmotic tibiofibular screw redemonstrated. Hardware is intact. There are pronounced degenerative changes at the ankle mortise with diffuse joint space narrowing, subchondral sclerosis and marginal spurring. There is lateral deviation/angulation of the talar dome in relation to the tibia again noted. No acute fracture detected. Soft tissues: Unremarkable. IMPRESSION: No acute bony abnormalities..
--- NOTE | 2024-06-27 12:00 | XR_ITS ---
PROCEDURE INFORMATION: Exam: XR Left Foot Exam date and time: 06/27/2024 12:00 PM Age: 83 years old Clinical indication: Pain; Foot; Left; Additional info: Fall, pain TECHNIQUE: Imaging protocol: Radiologic exam of the left foot. Views: 3 or more views. COMPARISON: CR XR ANKLE LT MIN 3V 05/08/2024 9:04 PM FINDINGS: Bones/joints: Bones are demineralized. Internally fixed old fracture distal fibula again demonstrated. Advanced degenerative changes of the ankle mortise with lateral deviation of the talar dome again demonstrated. Chronic deformity 5th proximal phalanx that may be postsurgical in nature from prior arthroplasty. Mild degenerative changes 1st MTP joint. No acute fracture detected. No dislocation. Soft tissues: Normal. IMPRESSION: Stable postsurgical and degenerative changes along the ankle mortise. No acute bony abnormalities.
--- NOTE | 2024-06-27 12:00 | XR_ITS ---
PROCEDURE INFORMATION: Exam: XR Left Tibia and Fibula Exam date and time: 06/27/2024 12:00 PM Age: 83 years old Clinical indication: Pain; Lower leg; Left; Prior surgery; Surgery date: 6+ months; Surgery type: Orif; Additional info: Fall, pain TECHNIQUE: Imaging protocol: Radiologic exam of the left tibia and fibula. Views: 2 views. COMPARISON: CR XR TIBIA FIBULA LT 2V 05/08/2024 9:04 PM FINDINGS: Bones/joints: Redemonstration of left total knee arthroplasty and screw plate fixation distal fibula with additional syndesmotic screw. Hardware is intact. Bone mineralization is unremarkable. No periprosthetic fracture. Maintenance of the visualized osseous structures are unremarkable. Soft tissues: Unremarkable. IMPRESSION: No acute bony abnormalities. No evidence of hardware failure.
--- NOTE | 2024-06-27 12:05 | PC.NURSE ---
XR AT BEDSIDE
--- NOTE | 2024-06-27 13:11 | PC.NURSE ---
DR MORALES AT BEDSIDE TO UPDATE PT AND FAMILY
--- NOTE | 2024-06-27 13:14 | PC.NURSE ---
DR HUBER MCCORMICK FOR DR KLEIN
--- NOTE | 2024-06-27 13:32 | PC.NURSE ---
[employer] SUPERVISOR NOTIFIED OF ADMISSION
--- NOTE | 2024-06-27 13:46 | PC.NURSE ---
report called to [facility]
--- NOTE | 2024-06-27 13:57 | HMH.PHAINT1 ---
Pharmacy Intervention Comments: MEDICATION RECONCILIATION COMPLETED ON PATIENT USING EXTERNAL FILL HISTORY FROM PHARMACY AND DISCHARGE SUMMARY FROM PREVIOUS ADMISSION. -NICKY CAMP, JAMESOND
[2024-06-27 18:01] LABS: HIV (1&2) Antibody Rapid NONREACTIVE (NONREACTIVE)
--- NOTE | 2024-06-27 19:46 | PC.NURSE ---
patient alarm on r/t fall hx. increased to 4L NC r/t sats at 88% on 3L NC - with increase patient maintained at 90%.
[2024-06-27] MEDS: METFORMIN 500MG TABLET 500 MG PO (20:19)
[2024-06-27] MEDS: FAMOTIDINE 20MG TABLET 20 MG PO (20:19)
[2024-06-27] MEDS: PREGABALIN 25MG CAPSULE 75 MG PO (20:19)
[2024-06-27] MEDS: PRAVASTATIN 40MG TAB 40 MG PO (20:19)
[2024-06-27 20:26] LABS: Basophils # 0.1 K/mm3 (0-0.2); Eosinophils # 0.1 K/mm3 (0.0-0.4); Eosinophils % 1.8 % (0.1-12.0); Hematocrit 30.6 % (37.0-47.0); Hemoglobin 9.5 g/dL (12.2-16.2); Lymphocytes # 1.4 K/mm3 (0.7-4.5); Lymphocytes % 23.8 % (10-50); Mean Corpuscular HGB Conc 31.2 g/dL (31.8-35.4); Mean Corpuscular Hemoglobin 24.2 pg (27.0-31.2); Mean Corpuscular Volume 77.5 fl (81-99); Monocytes # 0.7 K/mm3 (0.1-1.0); Monocytes % 10.9 % (1.7-9.3); Neutrophils # 3.8 K/mm3 (1.8-7.8); Neutrophils % 62.5 % (37.0-80.0); Platelet Count 180 K/mm3 (142-424); Red Blood Count 3.95 M/mm3 (4.20-5.40); Red Cell Distribution Width 18.9 % (11.5-17.5)
[2024-06-27 20:37] LABS: Chloride 99 mmol/L (98-107)
[2024-06-27 20:38] LABS: Albumin Level 3.4 g/dl (3.5-5.0); Potassium 4.4 mmoL/L (3.5-5.1); Sodium 140 mmol/L (136-145)
[2024-06-27 20:40] LABS: Alanine Aminotransferase 15 U/L (12-78); Alkaline Phosphatase 67 U/L (38-126); Aspartate Amino Transferase 28 U/L (14-36); Bilirubin,Total 0.5 mg/dl (0.2-1.3); Blood Urea Nitrogen 27 mg/dl (7-17); Creatinine Clearance Estimated 51 mL/min (50-200); Estimated Glomerular Filt Rate 43 ml/min (>60); GFR (African American) 52 ML/MIN (>60)
[2024-06-27 20:41] LABS: Albumin/Globulin Ratio 1.1 (1.1-1.8); Anion Gap 5.4 mEq/L (5-15); Calcium 8.3 mg/dl (8.4-10.2); Carbon Dioxide 40 mmol/L (22.0-30.0); Glucose 130 mg/dl (74-100); Total Protein,Serum 6.4 g/dl (6.3-8.2)
[2024-06-27 21:57] LABS: Thyroid Stimulating Hormone 0.78 uIU/mL (0.465-4.68)
[2024-06-28 03:09] VITALS: BP 137/66; PULSE 52; RESP 16; TEMP 36.6; O2SAT 93; BMI 33.7
--- NOTE | 2024-06-28 07:26 | CARE MANAGER ---
Addendum entered by Melony Kim 06/29/24 12:35: Per Sanjuana patient will admit to [facility]. Sanjuana stated that if patient needs to be moved to Healthcare Unit they will take care of this after admission to their facility. Addendum entered by Melony Kim 06/29/24 10:11: Patient does prefer to discharge to [facility] at time of discharge. Sanjuana Moralez stated that she does have a SNF bed available for this patient. Patient does understand she is in OBS status and will require private pay. Per MD patient could be ready for discharge later today. Sanjuana will be onsite to evaluate patient this AM. Addendum entered by Melony Kim 06/29/24 08:21: Updated patient information has been faxed to Sanjuana shine/ Isaías Moralez. Original Note: Patient was moving to [facility] yesterday and was unable to bear weight on ankle. Patient brought to the ER and was admitted due to ankle pain and inability to walk on it. PT eval is ordered. Reached out to [facility] who state that when the MD decides patient is medically stable they do have beds available if patient is interested in rehab and/or their facility or doing assisted living with therapy as done when she was previously there. At this time patient is in observation status and does not have a qualifying stay and would most likely be private pay.
--- NOTE | 2024-06-28 07:57 | P.HP_ITS ---
History of Present Illness *Admission Date: 06/27/24 *Reason for visit:: Left ankle pain/unable to walk *History of present illness: Ms. Nascimento is an 83 year old female patient of [facility] who presented to [facility] ER yesterday with severe left ankle pain and inability to ambulate. She has been in declining health and was in the process of moving into an assisted living room at [facility] yesterday. She had a similar episode of pain a few months ago and was admitted to [facility] at that time. Skilled rehab was recommended but she declined, she has been using a walker to assist with ambulation. She has a history of left ankle fracture/dislocation requiring surgical repair. She has been under the care of a streaming media specialist, Dr. Wright, in [place], [place]. [facility] Disclaimer: The information contained in this section may have been updated after the patient was seen, as this information can be updated by other users. Medical History CKD (chronic kidney disease) stage 3, GFR 30-59 ml/min Pneumonia Allergic rhinitis Colon polyps Hemorrhoids, internal Osteoporosis Herpes zoster Closed left ankle fracture Closed left hip fracture Lumbar spinal stenosis Lumbar compression fracture Ocular melanoma COPD (chronic obstructive pulmonary disease) Mediastinal lymphadenopathy Sleep apnea Asthma Hyperlipidemia Neuropathy Depression GERD (gastroesophageal reflux disease) Arthritis Hypertension Diabetes Surgical History History of left knee replacement History of left hip replacement History of left ankle joint replacement 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 History of arthroplasty of right knee History of appendectomy Family History Heart attack Social History Smoking Status: Never smoker alcohol intake: never substance use type: denies use current occupational status: other Travel in the last 8 weeks: None household members: none caffeine: Yes Other Medical History Have you received the Flu Vaccine for this season: No Have you received the Pneumonia Vaccine: No Review of Systems Constitutional Constitutional: Denies chills and Denies fever(s) ENT Ears, Nose, Mouth, and Throat: Denies dizziness *Cardiovascular Cardiovascular: Denies chest pain and Reports dyspnea on exertion *Respiratory Respiratory: Reports dyspnea on exertion *Gastrointestinal Gastrointestinal: Denies abdominal pain *Genitourinary Genitourinary: Denies difficulty voiding *Musculoskeletal Musculoskeletal: Reports as per HPI *Neurologic Neurologic: Denies dizziness Meds Home Medications and Allergies Home Medications ?Medication ?Instructions ?Recorded ?Confirmed ?Type metformin 500 mg tablet 500 mg PO BIDWMEAL 03/06/18 06/27/24 History montelukast 10 mg tablet 10 mg PO PM 03/06/18 06/27/24 History pregabalin 75 mg capsule (Lyrica) 75 mg PO BID 03/06/18 06/27/24 History simvastatin 20 mg tablet 20 mg PO HS 03/06/18 06/27/24 History escitalopram oxalate 20 mg tablet 20 mg PO DAILY 11/10/23 06/27/24 History fluticasone 250 mcg-salmeterol 50 1 ea inhalation BID 11/10/23 06/27/24 History mcg/dose blistr powdr for inhalation (Wixela Inhub) oxybutynin chloride 10 mg 20 mg PO DAILY 11/10/23 06/27/24 History tablet,extended release 24 hr mv-mn-folic 200 mcg-vit K 15 1 cap PO BID 11/11/23 06/27/24 History mcg-lutein 5 mg-zeaxanthin 1 mg capsule (PreserVision AREDS 2 Plus Multivit) magnesium oxide 400 mg (241.3 mg 400 mg PO DAILY 02/20/24 06/27/24 History magnesium) tablet furosemide 20 mg tablet (Lasix) 20 mg PO DAILY #30 tabs 02/25/24 06/27/24 Rx irbesartan 300 mg tablet 300 mg PO DAILY #30 tabs 02/25/24 06/27/24 Rx amlodipine 5 mg tablet 5 mg PO DAILY 05/09/24 06/27/24 History esomeprazole magnesium 40 mg 40 mg PO DAILY 05/09/24 06/27/24 History capsule,delayed release metoprolol succinate 50 mg 50 mg PO DAILY 05/09/24 06/27/24 History tablet,extended release 24 hr tizanidine 2 mg tablet 2 mg PO HSP PRN Muscle Pain 05/09/24 06/27/24 History azelastine 137 mcg (0.1 %) nasal 2 spray intranasal DAILY 05/12/24 06/27/24 History spray fluticasone propionate 50 2 spray intranasal DAILY 05/12/24 06/27/24 History mcg/actuation nasal spray,suspension olopatadine 0.7 % eye drops 1 drp ophthalmic (eye) DAILY 05/12/24 06/27/24 History (Pataday Once Daily Relief) New Prescriptions to Start Prescriptions: Allergies Allergy/AdvReac Type Severity Reaction Status Date / Time pollen extracts Allergy Intermediate ASTHMA Verified 11/10/23 10:41 [POLLEN EXTRACTS] Exam Data for Last 24 hours Vital signs and Labs for Last 24 Hours: Temp Pulse Resp BP Pulse Ox O2 Del Method O2 Flow Rate 97.9 F 52 L 16 137/66 93 L Nasal Cannula 4 06/28/24 03:09 06/28/24 03:09 06/28/24 03:09 06/28/24 03:09 06/28/24 03:09 06/28/24 06:26 06/28/24 06:26 Laboratory Results - last 24 hr 06/27/24 16:21: HIV 1&2 Antibody Rapid Nonreactive 06/27/24 20:18: WBC 6.0, RBC 3.95 L, Hgb 9.5 L, Hct 30.6 L, MCV 77.5 L, MCH 24.2 L, MCHC 31.2 L, RDW 18.9 H, Plt Count 180, MPV 9.0, Neut % (Auto) 62.5, Lymph % (Auto) 23.8, Ransom % (Auto) 10.9 H, Eos % (Auto) 1.8, Baso % (Auto) 1.0, Neut # (Auto) 3.8, Lymph # (Auto) 1.4, Ransom # (Auto) 0.7, Eos # (Auto) 0.1, Baso # (Auto) 0.1, Sodium 140, Potassium 4.4, Chloride 99, Carbon Dioxide 40 H, Anion Gap 5.4, BUN 27 H, Creatinine 1.20 H, Estimated Creat Clear 51, Estimated GFR 43 L, Est GFR ( Amer) 52 L, Glucose 130 H, Calcium 8.3 L, Total Bilirubin 0.5, AST 28, ALT 15, Alkaline Phosphatase 67, Total Protein 6.4, Albumin 3.4 L, Globulin 3.0, Albumin/Globulin Ratio 1.1, TSH 0.78 I & O for Last 24 hours: Intake & Output 06/25/24 06/26/24 06/27/24 06/28/24 23:59 23:59 23:59 22:59 Intake Total 480 / 480 Output Total 0 / 0 Balance 480 / 480 Weight 208 lb 12.444 oz 210 lb 5.136 oz Constitutional Constitutional: no acute distress *Routine HEENT Exam Head: Present normocephalic Eye: Present EOMI and PERRL ENT: Present mucous membranes moist *Routine Neck Exam Neck: Present supple; Absent lymphadenopathy *Routine Respiratory Exam Respiratory: Present CTA bilaterally *Routine Cardiovascular Exam Cardiovascular: Present RRR *Routine Abdominal Exam Abdominal: Present soft and normoactive bowel sounds; Absent tenderness *Routine Rectal Exam Rectal:: deferred *Routine Genitalia Exam Genitalia:: deferred *Routine Extremities Exam Extremities: Absent cyanosis, clubbing or edema Comments: chronic deformity of the left ankle, with foot externally rotated *Routine Skin Exam Skin: Present warm Comments: Dull skin redness with thickening of the skin over the anterior portion of both lower legs *Routine Neurological Exam Neurological: Present alert and oriented X3 Assessment and Plan *Assessment and plan (1) Ankle pain: Status: Acute Category: Medical Code(s): M25.579 - Pain in unspecified ankle and joints of unspecified foot (2) Left ankle joint deformity: Status: Acute Category: Medical Code(s): M21.962 - Unspecified acquired deformity of left lower leg (3) Left ankle instability: Status: Acute Category: Medical Code(s): M25.372 - Other instability, left ankle (4) Obesity: Status: Acute Category: Medical Code(s): E66.9 - Obesity, unspecified (5) Anemia: Status: Acute Category: Medical Code(s): D64.9 - Anemia, unspecified (6) Hypoxia: Status: Acute Category: Medical Code(s): R09.02 - Hypoxemia (7) Inability to bear weight: Status: Acute Category: Medical Code(s): R26.89 - Other abnormalities of gait and mobility (8) General weakness: Status: Acute Category: Medical Code(s): R53.1 - Weakness (9) Diabetes: Status: Acute Category: Medical Code(s): E11.9 - Type 2 diabetes mellitus without complications (10) Hypertension: Status: Acute Category: Medical Code(s): I10 - Essential (primary) hypertension (11) Neuropathy: Status: Acute Category: Medical Code(s): G62.9 - Polyneuropathy, unspecified Plan Admitted to [facility] for pain control and PT evaluation. Spoke to care management about rehab placement at [facility] with possible transition to assisted living as she improves.
[2024-06-28 08:00] VITALS: BP 132/50; PULSE 53; RESP 18; TEMP 36.8; O2SAT 90
[2024-06-28] MEDS: MAGNESIUM OXIDE 400MG TABLET 400 MG PO (08:36)
[2024-06-28] MEDS: IRBESARTAN 300MG TABLET 300 MG PO (08:36)
[2024-06-28] MEDS: FUROSEMIDE 20MG TABLET 20 MG PO (08:36)
[2024-06-28] MEDS: METOPROLOL SUCCINATE XL 50MG TABLET 50 MG PO (08:36)
[2024-06-28] MEDS: PREGABALIN 25MG CAPSULE 75 MG PO ×2 (08:36→20:05)
[2024-06-28] MEDS: METFORMIN 500MG TABLET 500 MG PO ×2 (08:36→16:51)
[2024-06-28 15:43] VITALS: BP 151/75; PULSE 54; RESP 17; TEMP 36.9; O2SAT 95
--- NOTE | 2024-06-28 16:16 | HMH.PTEV ---
Physical Therapy Evaluation Rehab PT IP Evaluation Start: 06/27/24 20:08 Freq: ONCE Status: Active Protocol: Document 06/28/24 16:05 EVANS (Rec: 06/28/24 16:15 EVANS [id number]) Subjective/History History History Ms. Nascimento is an 83 year old female patient of [facility] who presented to [facility] ER yesterday with severe left ankle pain and inability to ambulate. She has been in declining health and was in the process of moving into an assisted living room at [facility] yesterday. She had a similar episode of pain a few months ago and was admitted to [facility] at that time. Skilled rehab was recommended but she declined, she has been using a walker to assist with ambulation. She has a history of left ankle fracture/dislocation requiring surgical repair. She has been under the care of a sand mill grinder, Dr. Wright, in [place], [place]. Reports of multiple falls over the past 6 months. Previously independent with all ADL's/IADL's per patient report. Fear avoidance noted with transfers/ambulation. Subjective Subjective I just don't know what I'm gonna do. New diagnosis of cancer in past 12 No months? Rehab PT IP Eval Objective Appearance Patient Behavior Appropriate,Cooperative Patient Orientation Person,Place,Birthday Difficulty following instructions none Speech Pattern Clear,Appropriate Ambulation Patient Able to Ambulate No Balance Ability to Arise Unable Sitting Balance Leans or slides in chair Standing Balance Unsteady Dynamic Sitting Balance Ability Poor Dynamic Standing Balance Ability Poor Transfers Bed Transfer Ability Moderate x 1 (50% assist) Chair Transfer Ability Moderate x 1 (50% assist), Maximum x 1 (75% assist) Sit to Stand Bed Transfer Ability Maximum x 1 (75% assist) Pain Left Ankle Pain Intensity 7 ROM LLE PT ROM Status WFL All Extremities PT ROM Status WFL MMT LLE PT MMT WFL Rehab PT IP prob,goals,plan Problems Date of Evaluation: 06/28/24 PT IP Problems Bed Mobility,Transfers,Gait, Balance,Self care,Safety Rehab Potential Rehab Potential Fair Plan PT Intervention Plan Bed Mobility,Transfers,Gait, Balance,Self care,Safety, Therapeutic Exercise PT Plan Frequency BID Duration LOS Discharge Goals Bed Transfer Ability Minimal x 1 (25% assist) Sit to Stand Chair Transfer Ability Minimal x 1 (25% assist) Ambulation Assistive Device Rolling Walker Ambulation Distance (feet) 20 Discharge Plan PT Discharge Plan Patient was previously planning to go to SNF/assisted living. PT suggests discharge to SNF for further rehab and observation. Eval Complexity Eval Charge Codes 90362 - High Complexity PHYSICIAN CERTIFICATION: I certify the specified therapy services for Kirstie Nascimento are required, authorized, and reviewed every 30 days.
--- NOTE | 2024-06-28 16:59 | PC.NURSE ---
AOX4, UP TO CHAIR AT TIME OF WRITING AND TOLERATING WELL. STILL REQUIRING 4LNC FOR O2 SUPPORT. SMALL AMOUNT OF BLEEDING TO FOOT. DSG PLACED BY THIS RN.
[2024-06-28 20:00] VITALS: BP 169/74; PULSE 54; RESP 20; TEMP 36.7; O2SAT 96; O2SAT 99
[2024-06-28] MEDS: FAMOTIDINE 20MG TABLET 20 MG PO (20:05)
[2024-06-28] MEDS: PRAVASTATIN 40MG TAB 40 MG PO (20:05)
[2024-06-29 04:00] VITALS: BP 137/82; PULSE 46; RESP 16; TEMP 36.7; O2SAT 93; BMI 33.5
[2024-06-29] MEDS: METFORMIN 500MG TABLET 500 MG PO (06:38)
[2024-06-29 07:26] VITALS: BP 163/66; PULSE 50; RESP 19; TEMP 36.9; O2SAT 91
--- NOTE | 2024-06-29 08:25 | P.PN_ITS ---
Subjective *Date: 06/29/24 *Time: 09:05 Interval history: Patient states she slept last night. She wears constant nasal oxygen. She states she is short of breath. She has a productive cough at times. She denies chest pain. She ate her breakfast but did not like it. She was up in a chair yesterday. She is working with physical therapy. She does not bear weight on the left leg. Bowels are moving. She has a pure wick in place. Medical Exam Vital signs and Labs for Last 24 Hours: Vital Signs Temp Pulse Resp BP Pulse Ox O2 Del Method O2 Flow Rate 06/29/24 07:26 98.4 F 50 L 19 163/66 H 91 L Nasal Cannula 4 06/29/24 06:32 Nasal Cannula 4 06/29/24 05:00 Nasal Cannula 4 06/29/24 04:00 98.1 F 46 L 16 137/82 93 L Nasal Cannula 4 06/29/24 03:00 Nasal Cannula 4 06/29/24 01:00 Nasal Cannula 4 06/28/24 23:00 Nasal Cannula 4 06/28/24 20:47 Nasal Cannula 4 06/28/24 20:00 98.0 F 54 L 20 169/74 H 99 Nasal Cannula 4 06/28/24 20:00 96 Nasal Cannula 4 06/28/24 18:34 Nasal Cannula 4 06/28/24 16:45 Nasal Cannula 4 06/28/24 15:43 98.4 F 54 L 17 151/75 H 95 Nasal Cannula 3 06/28/24 15:00 Nasal Cannula 4 06/28/24 12:29 Nasal Cannula 4 06/28/24 11:00 Nasal Cannula 4 06/28/24 09:00 Nasal Cannula 4 Intake and Output 06/28/24 06/29/24 06/29/24 19:59 03:59 11:59 Intake Total 720 / 720 120 / 840 Output Total 700 / 700 0 / 700 550 / 1250 Balance 120 / 140 -550 / -410 Intake: Intake, Oral Amount 720 / 720 120 / 840 Output: Output, Urine Amount 700 / 700 0 / 700 550 / 1250 Other: Number of Unmeasured Voids 0 1 0 Number of Bowel Movements 1 Weight 208 lb 9.6 oz Patient Weight 06/29/24 11:59 Weight 208 lb 9.6 oz I & O for Labs for Last 24 Hours: Intake & Output 06/26/24 06/27/24 06/28/24 06/29/24 11:59 11:59 10:59 11:59 Intake Total 980 / 980 840 / 840 Output Total 0 / 0 1250 / 1250 Balance 980 / 980 -410 / -410 Weight 213 lb 210 lb 5.136 oz 208 lb 9.6 oz Constitutional: Present no acute distress Comment:: Sitting up in the bed and appears comfortable. Wearing nasal O2. Respiratory: Present diminished air movement (Posteriorly bilaterally) Cardiac: Present Reg Rate and Rhythm GI: Present soft and normal bowel sounds Comments:: Obese Extremities: Present edema; Absent calf tenderness Comment:: Lesion on inner left foot. Rough dry skin worse on the left lower extremity. Edema of the left lower extremity Skin: Present wounds (Left foot) Neuro: Present alert, awake and oriented x 3 Assessment and Plan *Assessment and plan (1) Ankle pain: Status: Acute Category: Medical Code(s): M25.579 - Pain in unspecified ankle and joints of unspecified foot (2) Left ankle joint deformity: Status: Acute Category: Medical Code(s): M21.962 - Unspecified acquired deformity of left lower leg (3) Left ankle instability: Status: Acute Category: Medical Code(s): M25.372 - Other instability, left ankle (4) Obesity: Status: Acute Category: Medical Code(s): E66.9 - Obesity, unspecified (5) Anemia: Status: Acute Category: Medical Code(s): D64.9 - Anemia, unspecified (6) Hypoxia: Status: Acute Category: Medical Code(s): R09.02 - Hypoxemia (7) Inability to bear weight: Status: Acute Category: Medical Code(s): R26.89 - Other abnormalities of gait and mobility (8) General weakness: Status: Acute Category: Medical Code(s): R53.1 - Weakness (9) Diabetes: Status: Acute Category: Medical Code(s): E11.9 - Type 2 diabetes mellitus without complications (10) Hypertension: Status: Acute Category: Medical Code(s): I10 - Essential (primary) hypertension (11) Neuropathy: Status: Acute Category: Medical Code(s): G62.9 - Polyneuropathy, unspecified Plan Patient seems ready to go to rehab. She still desires to go to [facility] which apparently has been arranged. Will need ongoing physical therapy. She needs her special shoes and order to protect the foot and ankle. Dr. Adamson entry - Saw patient, agree with above note. Probable discharge to [facility] today, would benefit from a short time in skilled care prior to assisted living.
[2024-06-29] MEDS: IRBESARTAN 300MG TABLET 300 MG PO (08:45)
[2024-06-29] MEDS: METOPROLOL SUCCINATE XL 50MG TABLET 50 MG PO (08:45)
[2024-06-29] MEDS: MAGNESIUM OXIDE 400MG TABLET 400 MG PO (08:45)
[2024-06-29] MEDS: FUROSEMIDE 20MG TABLET 20 MG PO (08:45)
[2024-06-29] MEDS: PREGABALIN 25MG CAPSULE 75 MG PO (08:47)
--- NOTE | 2024-06-29 13:54 | EXP.DC.SUM ---
General Admission date:: 06/27/24 Discharge date: 06/29/24 HPI HPI HPI: Ms. Nascimento is an 83 year old female patient of [facility] who presented to [facility] ER yesterday with severe left ankle pain and inability to ambulate. She has been in declining health and was in the process of moving into an assisted living room at [facility] yesterday. She had a similar episode of pain a few months ago and was admitted to [facility] at that time. Skilled rehab was recommended but she declined, she has been using a walker to assist with ambulation. She has a history of left ankle fracture/dislocation requiring surgical repair. She has been under the care of a sports physician, Dr. Wright, in [place], [place]. Hospital Course Hospital Course Hospital Course: Patient was admitted to [facility] for pain control and physical therapy evaluation. Dr. Adamson spoke with care management about rehab placement at [place] initially with possible transition to assisted living as she improves. Patient during her brief stay was able to get out of bed with assistance by physical therapy with no weightbearing on the left leg. She did sit up in a chair without any problems. She was noted to be short of breath with any activity and wears oxygen per nasal cannula at all times. She was able to eat without problems. On 06/29/2024 she was stable to be transferred to [place] for ongoing rehab with plans to transition to [place]. Again she has been unable to bear weight on the left foot/ankle. Exam Data for Last 24 hours Vital signs and Labs for Last 24 Hours: Temp Pulse Resp BP Pulse Ox O2 Del Method O2 Flow Rate 98.4 F 50 L 19 163/66 H 91 L Nasal Cannula 4 06/29/24 07:26 06/29/24 07:26 06/29/24 07:26 06/29/24 07:26 06/29/24 07:26 06/29/24 12:58 06/29/24 12:58 I & O for Last 24 hours: Intake & Output 06/27/24 06/28/24 06/29/24 06/30/24 11:59 10:59 11:59 11:59 Intake Total 980 / 980 1080 / 1080 Output Total 0 / 0 1250 / 1250 Balance 980 / 980 -170 / -170 Weight 213 lb 210 lb 5.136 oz 208 lb 9.6 oz Narrative: Constitutional: Present no acute distress Comment:: Sitting up in the bed and appears comfortable. Wearing nasal O2. Respiratory: Present diminished air movement (Posteriorly bilaterally) Cardiac: Present Reg Rate and Rhythm GI: Present soft and normal bowel sounds Comments:: Obese Extremities: Present edema; Absent calf tenderness Comment:: Lesion on inner left foot. Rough dry skin worse on the left lower extremity. Edema of the left lower extremity Skin: Present wounds (Left foot) Neuro: Present alert, awake and oriented x 3 Results Data Completed and Pending Completed studies during hospitalization [Text1]: 06/27/2024 left ankle xray FINDINGS: Bones/joints: Prior screw plate fixation distal fibula with additional syndesmotic tibiofibular screw redemonstrated. Hardware is intact. There are pronounced degenerative changes at the ankle mortise with diffuse joint space narrowing, subchondral sclerosis and marginal spurring. There is lateral deviation/angulation of the talar dome in relation to the tibia again noted. No acute fracture detected. Soft tissues: Unremarkable. IMPRESSION: No acute bony abnormalities.. 06/27/2024 left foot xray FINDINGS: Bones/joints: Bones are demineralized. Internally fixed old fracture distal fibula again demonstrated. Advanced degenerative changes of the ankle mortise with lateral deviation of the talar dome again demonstrated. Chronic deformity 5th proximal phalanx that may be postsurgical in nature from prior arthroplasty. Mild degenerative changes 1st MTP joint. No acute fracture detected. No dislocation. Soft tissues: Normal. IMPRESSION: Stable postsurgical and degenerative changes along the ankle mortise. No acute bony abnormalities. 06/27/2024 left Tib/fib xray: FINDINGS: Bones/joints: Redemonstration of left total knee arthroplasty and screw plate fixation distal fibula with additional syndesmotic screw. Hardware is intact. Bone mineralization is unremarkable. No periprosthetic fracture. Maintenance of the visualized osseous structures are unremarkable. Soft tissues: Unremarkable. IMPRESSION: No acute bony abnormalities. No evidence of hardware failure. 06/27/24 16:21: HIV 1&2 Antibody Rapid Nonreactive 06/27/24 20:18: WBC 6.0, RBC 3.95 L, Hgb 9.5 L, Hct 30.6 L, MCV 77.5 L, MCH 24.2 L, MCHC 31.2 L, RDW 18.9 H, Plt Count 180, MPV 9.0, Neut % (Auto) 62.5, Lymph % (Auto) 23.8, [place] % (Auto) 10.9 H, Eos % (Auto) 1.8, Baso % (Auto) 1.0, Neut # (Auto) 3.8, Lymph # (Auto) 1.4, [place] # (Auto) 0.7, Eos # (Auto) 0.1, Baso # (Auto) 0.1, Sodium 140, Potassium 4.4, Chloride 99, Carbon Dioxide 40 H, Anion Gap 5.4, BUN 27 H, Creatinine 1.20 H, Estimated Creat Clear 51, Estimated GFR 43 L, Est GFR ( Amer) 52 L, Glucose 130 H, Calcium 8.3 L, Total Bilirubin 0.5, AST 28, ALT 15, Alkaline Phosphatase 67, Total Protein 6.4, Albumin 3.4 L, Globulin 3.0, Albumin/Globulin Ratio 1.1, TSH 0.78 DS: Diagnosis Discharge Diagnosis (1) Ankle pain: Status: Acute Code(s): M25.579 - Pain in unspecified ankle and joints of unspecified foot (2) Left ankle joint deformity: Status: Acute Code(s): M21.962 - Unspecified acquired deformity of left lower leg (3) Left ankle instability: Status: Acute Code(s): M25.372 - Other instability, left ankle (4) Obesity: Status: Acute Code(s): E66.9 - Obesity, unspecified (5) Anemia: Status: Acute Code(s): D64.9 - Anemia, unspecified (6) Hypoxia: Status: Acute Code(s): R09.02 - Hypoxemia (7) Inability to bear weight: Status: Acute Code(s): R26.89 - Other abnormalities of gait and mobility (8) General weakness: Status: Acute Code(s): R53.1 - Weakness (9) Diabetes: Status: Acute Code(s): E11.9 - Type 2 diabetes mellitus without complications (10) Hypertension: Status: Acute Code(s): I10 - Essential (primary) hypertension (11) Neuropathy: Status: Acute Code(s): G62.9 - Polyneuropathy, unspecified Meds Home Medications and Allergies Home Medications ?Medication ?Instructions ?Recorded ?Confirmed ?Type metformin 500 mg tablet 500 mg PO BIDWMEAL 03/06/18 06/27/24 History montelukast 10 mg tablet 10 mg PO PM 03/06/18 06/27/24 History pregabalin 75 mg capsule (Lyrica) 75 mg PO BID 03/06/18 06/27/24 History simvastatin 20 mg tablet 20 mg PO HS 03/06/18 06/27/24 History escitalopram oxalate 20 mg tablet 20 mg PO DAILY 11/10/23 06/27/24 History fluticasone 250 mcg-salmeterol 50 1 ea inhalation BID 11/10/23 06/27/24 History mcg/dose blistr powdr for inhalation (Wixela Inhub) oxybutynin chloride 10 mg 20 mg PO DAILY 11/10/23 06/27/24 History tablet,extended release 24 hr mv-mn-folic 200 mcg-vit K 15 1 cap PO BID 11/11/23 06/27/24 History mcg-lutein 5 mg-zeaxanthin 1 mg capsule (PreserVision AREDS 2 Plus Multivit) magnesium oxide 400 mg (241.3 mg 400 mg PO DAILY 02/20/24 06/27/24 History magnesium) tablet furosemide 20 mg tablet (Lasix) 20 mg PO DAILY #30 tabs 02/25/24 06/27/24 Rx irbesartan 300 mg tablet 300 mg PO DAILY #30 tabs 02/25/24 06/27/24 Rx amlodipine 5 mg tablet 5 mg PO DAILY 05/09/24 06/27/24 History esomeprazole magnesium 40 mg 40 mg PO DAILY 05/09/24 06/27/24 History capsule,delayed release metoprolol succinate 50 mg 50 mg PO DAILY 05/09/24 06/27/24 History tablet,extended release 24 hr tizanidine 2 mg tablet 2 mg PO HSP PRN Muscle Pain 05/09/24 06/27/24 History azelastine 137 mcg (0.1 %) nasal 2 spray intranasal DAILY 05/12/24 06/27/24 History spray fluticasone propionate 50 2 spray intranasal DAILY 05/12/24 06/27/24 History mcg/actuation nasal spray,suspension olopatadine 0.7 % eye drops 1 drp ophthalmic (eye) DAILY 05/12/24 06/27/24 History (Pataday Once Daily Relief) New Prescriptions to Start Prescriptions: Allergies Allergy/AdvReac Type Severity Reaction Status Date / Time pollen extracts Allergy Intermediate ASTHMA Verified 11/10/23 10:41 [POLLEN EXTRACTS] Discharge Plan Disposition Patient Disposition: Xfer Other Condition: Fair Discharge Order Discharge Orders: Discharge Order (Routine); Ordered 06/29/24 Ordered By: Allan Adamson Follow up Plan Follow up with: Allan Adamson MD [Primary Care Provider] - 1 month Prescriptions/Medication Reconciliation: Continued fluticasone propion-salmeterol [Wixela Inhub] 250-50 mcg/dose blister with device 1 ea INHALATION BID oxybutynin chloride 10 mg tablet extended release 24hr 20 mg PO DAILY Patient Comments: TAKE 2 TABLETS BY MOUTH ONCE DAILY escitalopram oxalate 20 mg tablet 20 mg PO DAILY Patient Comments: TAKE 1 TABLET BY MOUTH ONCE DAILY PreserVision AREDS 2 Plus MV 200 mcg-15 mcg- 5 mg-1 mg Capsule 1 cap PO BID magnesium oxide 400 mg (241.3 mg magnesium) tablet 400 mg PO DAILY Patient Comments: TAKE 1 TABLET BY MOUTH ONCE DAILY irbesartan 300 mg Tablet 300 mg PO DAILY Qty: 30 0RF furosemide [Lasix] 20 mg tablet 20 mg PO DAILY Qty: 30 0RF metformin 500 MG tablet 500 mg PO BIDWMEAL simvastatin 20 tablet 20 mg PO HS montelukast 10 MG tablet 10 mg PO PM pregabalin [Lyrica] 75 capsule 75 mg PO BID metoprolol succinate 50 mg tablet extended release 24 hr 50 mg PO DAILY Patient Comments: TAKE 1 TABLET BY MOUTH ONCE DAILY amlodipine 5 mg tablet 5 mg PO DAILY Patient Comments: TAKE 1 TABLET BY MOUTH ONCE DAILY esomeprazole magnesium 40 mg capsule,delayed release(DR/EC) 40 mg PO DAILY tizanidine 2 mg tablet 2 mg PO HSP PRN (Reason: Muscle Pain) azelastine 137 mcg (0.1 %) Reeds,Non-Aerosol 2 spray INTRANASAL DAILY Rx Instructions: administer into each nostril fluticasone propionate 50 mcg/actuation Reeds,Suspension 2 spray INTRANASAL DAILY Rx Instructions: administer into each nostril Pataday Once Daily Relief 0.7 % Drops 1 drp OPHTHALMIC (EYE) DAILY Problem Reconciliation Problems Reviewed?: Yes Patient Discharge Instructions ACTIVITY: Continue current activity DIET: continue same diet Additional Instructions: Patient needs PT at [place] Print Language: Sami Providers Primary Care Provider: Allan Adamson Admit Provider: Allan Adamson Attending Provider: Allan Adamson
[2024-06-30 05:10] LABS: HCV Ab Non Reactive (Non Reactive)
--- NOTE | 2024-06-30 14:10 | CARE MANAGER ---
Contacted patient related to hospital discharge. She reports feeling better. She had no new medication and is aware of follow up appointment. Denies questions or concerns. NEO Michele
== END 2024-06-29 16:35 | disposition home or self-care (01) ==
LOC: ER 13:19 → 2ND 13:34
PROVIDERS: Family Medicine; Admitting Provider Family Medicine; Emergency Provider Student in an Organized Health Care Education/Training Program; PCP Family Medicine; Visit Provider Family Medicine
DX: M25.572 Pain in left ankle and joints of left foot (principal); M21.962 Unspecified acquired deformity of left lower leg; M25.372 Other instability, left ankle; E66.9 Obesity, unspecified; D64.9 Anemia, unspecified; R09.02 Hypoxemia; R26.89 Other abnormalities of gait and mobility; R53.1 Weakness; E11.22 Type 2 diabetes mellitus with diabetic chronic kidney disease; I12.9 Hypertensive chronic kidney disease with stage 1 through stage 4 chronic kidney disease, or unspecified chronic kidney disease; G62.9 Polyneuropathy, unspecified; Z99.81 Dependence on supplemental oxygen; J96.11 Chronic respiratory failure with hypoxia; N18.30 Chronic kidney disease, stage 3 unspecified; Z60.2 Problems related to living alone
CPT/HCPCS: 36415; 73590; 73610; 73630; 80053; 84443; 85025; 86803; 87389; 97163; 97530; 99285; G0378

== ENCOUNTER 2024-07-08 09:07 | Inpatient (IN) | payer MEDICARE, BC, SELFPAY ==
[2024-07-08] VITALS (22 sets, daily range): BP systolic 116–173; BP diastolic 44–63; PULSE 51–69; RESP 14–26; TEMP 36.6–37.1; O2SAT 86–100; BMI 32.9; BMI 35.0
--- NOTE | 2024-07-08 09:10 | ECG_ITS ---
APPROVED REPORT Exam: Resting ECG HR:61 bpm ECG Measurements Heart Rate 61 AXES SC 193 P -84 QRSd 137 QRS 71 QT 468 T 29 QTc 471 Conclusion Ectopic atrial rhythm with right bundle branch block morphology. Electronically signed by : NATHALIA SOARES, 07/08/2024 13:16:06
--- NOTE | 2024-07-08 09:21 | XR_ITS ---
FINAL REPORT CLINICAL HISTORY: Shortness of breath, cough COMPARISON: 05/10/2024 FINDINGS: A single portable view of the chest was obtained. The heart size and pulmonary vascularity are within normal limits. The mediastinum is within normal limits. There are worsening bilateral pulmonary opacities, right greater than left, consistent with bilateral pneumonia. The bony thorax is intact. IMPRESSION: Worsening bilateral pulmonary opacities, right greater than left, consistent with bilateral pneumonia. Reviewed, Interpreted and Dictated by Adrián Peralta III, MD Transcribed by Yamilex Abbott Authenticated and [facility]
--- NOTE | 2024-07-08 09:29 | PC.NURSE ---
XR AT BEDSIDE
[2024-07-08 09:30] LABS: Basophils # 0.2 K/mm3 (0-0.2); Basophils % 1.5 % (0.1-2.0); Eosinophils % 0.2 % (0.1-12.0); Hematocrit 35.3 % (37.0-47.0); Hemoglobin 10.7 g/dL (12.2-16.2); Lymphocytes % 7.6 % (10-50); Mean Corpuscular HGB Conc 30.4 g/dL (31.8-35.4); Mean Platelet Volume 8.2 fl (7.4-10.4); Monocytes # 0.7 K/mm3 (0.1-1.0); Monocytes % 5.8 % (1.7-9.3); Neutrophils # 10.7 K/mm3 (1.8-7.8); Neutrophils % 84.9 % (37.0-80.0); Platelet Count 140 K/mm3 (142-424); Red Blood Count 4.48 M/mm3 (4.20-5.40); Red Cell Distribution Width 18.9 % (11.5-17.5); White Blood Count 12.6 K/mm3 (4.8-10.8)
[2024-07-08] MEDS: METHYLPREDNISOLONE SOD SUCC 125MG VIAL 125 MG IV ×2 (09:30→18:16)
[2024-07-08] MEDS: IPRATROPIUM/ALBUTEROL 3 ML NEB 9 ML IH (09:30)
[2024-07-08 09:34] LABS: VBG Base Excess 5.9 mmol/L (-2.4-2.3); VBG HCO3 33.6 mmol/L (23-30); VBG PH 7.22 mmol/L (7.31-7.41); VBG PO2 43.2 mmol/L (28-40); VBG Total CO2 36.1 mmol/L (23-27)
--- NOTE | 2024-07-08 09:34 | PC.NURSE ---
RESPIRATORY NOTIFIED OF BI-PAP ORDER
[2024-07-08 09:36] LABS: Alanine Aminotransferase 31 U/L (12-78); Albumin Level 4.1 g/dl (3.5-5.0); Albumin/Globulin Ratio 1.2 (1.1-1.8); Alkaline Phosphatase 80 U/L (38-126); Anion Gap 10.1 mEq/L (5-15); Aspartate Amino Transferase 54 U/L (14-36); Bilirubin,Total 1.2 mg/dl (0.2-1.3); Blood Urea Nitrogen 36 mg/dl (7-17); Calcium 8.6 mg/dl (8.4-10.2); Carbon Dioxide 37 mmol/L (22.0-30.0); Chloride 99 mmol/L (98-107); Creatinine Clearance Estimated 55 mL/min (50-200); Estimated Glomerular Filt Rate 47 ml/min (>60); GFR (African American) 57 ML/MIN (>60); Globulin 3.5 g/dL (1.3-3.2); Glucose 174 mg/dl (74-100); Potassium 5.1 mmoL/L (3.5-5.1); Sodium 141 mmol/L (136-145); Total Protein,Serum 7.6 g/dl (6.3-8.2)
[2024-07-08 09:36] LABS: Lactate Venous 2.4 mmol/L (0.4-2.0); VBG PCO2 83.1 mmol/L (35-51)
[2024-07-08 09:37] LABS: Activated Partial Thrombo Time 26.6 seconds (22.8-30.6); INR 1.07 (0.9-1.1); Prothrombin Time 11.9 seconds (10.1-12.5)
--- NOTE | 2024-07-08 09:40 | PC.NURSE ---
Respiratory bedside starting the pt on BIPAP
[2024-07-08 09:47] LABS: NT Pro Brain Natriuretic Pep. 12500 pg/mL (0-450)
[2024-07-08 09:49] LABS: Lactic Acid 1.2 mmol/L (0.7-2.1)
[2024-07-08] MEDS: CEFTRIAXONE SODIUM 2 GM in 0.9 % SODIUM CHLORIDE 100 ML IV (10:03)
[2024-07-08] MEDS: AZITHROMYCIN 500 MG in 0.9 % SODIUM CHLORIDE 250 ML 250 MG IV (10:04)
--- NOTE | 2024-07-08 10:07 | PC.NURSE ---
I rounded on the pt, no new complaints at this time. pt is lethargic. call steel in reach.
[2024-07-08 10:16] LABS: Troponin I < 0.01 ng/ml (0.00-0.034)
--- NOTE | 2024-07-08 10:28 | ED_ITS ---
Discharge Plan Disposition Chief Complaint: Shortness of Breath/Dyspnea Prescriptions Prescriptions: No Action fluticasone propion-salmeterol [Wixela Inhub] 250-50 mcg/dose blister with device 1 ea INHALATION BID oxybutynin chloride 10 mg tablet extended release 24hr 20 mg PO DAILY Patient Comments: TAKE 2 TABLETS BY MOUTH ONCE DAILY escitalopram oxalate 20 mg tablet 20 mg PO DAILY Patient Comments: TAKE 1 TABLET BY MOUTH ONCE DAILY PreserVision AREDS 2 Plus MV 200 mcg-15 mcg- 5 mg-1 mg Capsule 1 cap PO BID magnesium oxide 400 mg (241.3 mg magnesium) tablet 400 mg PO DAILY Patient Comments: TAKE 1 TABLET BY MOUTH ONCE DAILY irbesartan 300 mg Tablet 300 mg PO DAILY Qty: 30 0RF furosemide [Lasix] 20 mg tablet 20 mg PO DAILY Qty: 30 0RF metformin 500 MG tablet 500 mg PO BIDWMEAL simvastatin 20 tablet 20 mg PO HS montelukast 10 MG tablet 10 mg PO PM pregabalin [Lyrica] 75 capsule 75 mg PO BID metoprolol succinate 50 mg tablet extended release 24 hr 50 mg PO DAILY Patient Comments: TAKE 1 TABLET BY MOUTH ONCE DAILY amlodipine 5 mg tablet 5 mg PO DAILY Patient Comments: TAKE 1 TABLET BY MOUTH ONCE DAILY esomeprazole magnesium 40 mg capsule,delayed release(DR/EC) 40 mg PO DAILY tizanidine 2 mg tablet 2 mg PO HSP PRN (Reason: Muscle Pain) azelastine 137 mcg (0.1 %) [place],Non-Aerosol 2 spray INTRANASAL DAILY Rx Instructions: administer into each nostril fluticasone propionate 50 mcg/actuation [place],Suspension 2 spray INTRANASAL DAILY Rx Instructions: administer into each nostril Pataday Once Daily Relief 0.7 % Drops 1 drp OPHTHALMIC (EYE) DAILY Referrals Follow up/Referrals: Allan Adamson MD [Primary Care Provider] - See instructions Clinical Impressions Clinical Impression: Acute hypoxemic respiratory failure, Acute hypercapnic respiratory failure, Pneumonia, Sepsis Print Language Print Language: Azeri Discharge ED Provider: Ken Alston General Chief Complaint: Shortness of Breath/Dyspnea Stated Complaint: SOA Time Seen by Provider: 07/08/24 09:21 Mode of Arrival: EMS Source of Information: Patient and EMS Limitations: No Limitations Description of Symptoms (Recalled from ER Triage Doc. by RN): per EMS pt did not use her CPAP last night. Isaías Moralez called EMS because the pts saturation was in the 70's. On pts arrival she was 86% on 4LNC. pt is now 94% on 6L simple mask. pts baseline is 4LNC. pt is lethargic, SOA and has a weak cough. pt denies pain. pt BLE are red and edematous (pts baseline.) pt is A&O x4. pt received 1 duo neb in route. History of Present Illness HPI narrative: Please note that above description of symptoms, in this electronic medical record under categorization of recalled from ER triage doctor by RN are reflective of an initial nursing assessment, however, is not reflective of my full history and physical exam that was personally taken and clarified. Consequentially, this preceding description of symptoms, which may include the patient's categorized chief complaint in the EMR, do not reflect my personal clinical impression, and the ultimate description of history of present illness and patient stated complaints should be deferred to this section of the note. Unless stated otherwise or congruent with this section of the note, additional signs, symptoms, or incongruence should be interpreted as inaccurate with my clinical impression. Related Data Home Medications ?Medication ?Instructions ?Recorded ?Confirmed metformin 500 mg tablet 500 mg PO BIDWMEAL 03/06/18 06/27/24 montelukast 10 mg tablet 10 mg PO PM 03/06/18 06/27/24 pregabalin 75 mg capsule (Lyrica) 75 mg PO BID 03/06/18 06/27/24 simvastatin 20 mg tablet 20 mg PO HS 03/06/18 06/27/24 escitalopram oxalate 20 mg tablet 20 mg PO DAILY 11/10/23 06/27/24 fluticasone 250 mcg-salmeterol 50 1 ea inhalation BID 11/10/23 06/27/24 mcg/dose blistr powdr for inhalation (Wixela Inhub) oxybutynin chloride 10 mg 20 mg PO DAILY 11/10/23 06/27/24 tablet,extended release 24 hr mv-mn-folic 200 mcg-vit K 15 1 cap PO BID 11/11/23 06/27/24 mcg-lutein 5 mg-zeaxanthin 1 mg capsule (PreserVision AREDS 2 Plus Multivit) magnesium oxide 400 mg (241.3 mg 400 mg PO DAILY 02/20/24 06/27/24 magnesium) tablet amlodipine 5 mg tablet 5 mg PO DAILY 05/09/24 06/27/24 esomeprazole magnesium 40 mg 40 mg PO DAILY 05/09/24 06/27/24 capsule,delayed release metoprolol succinate 50 mg 50 mg PO DAILY 05/09/24 06/27/24 tablet,extended release 24 hr tizanidine 2 mg tablet 2 mg PO HSP PRN Muscle Pain 05/09/24 06/27/24 azelastine 137 mcg (0.1 %) nasal 2 spray intranasal DAILY 05/12/24 06/27/24 spray fluticasone propionate 50 2 spray intranasal DAILY 05/12/24 06/27/24 mcg/actuation nasal spray,suspension olopatadine 0.7 % eye drops 1 drp ophthalmic (eye) DAILY 05/12/24 06/27/24 (Pataday Once Daily Relief) Previous Rx's ?Medication ?Instructions ?Recorded furosemide 20 mg tablet (Lasix) 20 mg PO DAILY #30 tabs 02/25/24 irbesartan 300 mg tablet 300 mg PO DAILY #30 tabs 02/25/24 Allergies Allergy/AdvReac Type Severity Reaction Status Date / Time pollen extracts (POLLEN Allergy Intermediate ASTHMA Verified 07/08/24 09:35 EXTRACTS) [facility] Disclaimer: The information contained in this section may have been updated after the patient was seen, as this information can be updated by other users. Medical History CKD (chronic kidney disease) stage 3, GFR 30-59 ml/min Pneumonia Allergic rhinitis Colon polyps Hemorrhoids, internal Osteoporosis Herpes zoster Closed left ankle fracture Closed left hip fracture Lumbar spinal stenosis Lumbar compression fracture Ocular melanoma COPD (chronic obstructive pulmonary disease) Mediastinal lymphadenopathy Sleep apnea Asthma Hyperlipidemia Neuropathy Depression GERD (gastroesophageal reflux disease) Arthritis Hypertension Diabetes Surgical History History of left knee replacement History of left hip replacement History of left ankle joint replacement 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 History of arthroplasty of right knee History of appendectomy Family History Heart attack Social History Smoking Status: Never smoker alcohol intake: never substance use type: denies use current occupational status: other Travel in the last 8 weeks: None household members: none caffeine: Yes Other Medical History Have you received the Flu Vaccine for this season: No Have you received the Pneumonia Vaccine: No ROS Obtained: Yes All systems reviewed & no additional complaints except as documented Physical Exam General General appearance: alert and in distress Head Head exam: atraumatic and normocephalic Eye Eye exam: Present periorbital swelling Neck Neck exam: Present trachea midline Chest Chest inspection: Present normal inspection and symmetric chest wall rise Respiratory Respiratory exam: Present wheezes (Primarily wheezes on the right, minimal breath sounds on the left.), accessory muscle use and prolonged expiratory phase; Absent respiratory distress or stridor Cardiovascular Cardiovascular exam: Present regular rate, normal rhythm and other (Pulses equal and symmetric in upper and lower extremities) Extremities Exam Extremities exam: Absent edema Neurological Exam Neurological exam: Present alert, oriented X3 and CN II-XII intact Skin Skin exam: Present warm and dry; Absent cyanosis, diaphoresis or pallor HEART Score HEART Score HEART Score assessment performed?: Yes History (anamnesis): Moderately suspicious ECG: Normal Age: >65 years Risk factors: 3 or more risk factors Troponin: </= normal limit HEART Score: 5 Critical Care Critical Care Time Critical Care Time: Yes (respiratory) Attestation: On 07/08/24, the high probability of a clinically significant, sudden or life threatening deterioration of the following system(s) required my full and direct attention, intervention and personal management. The time I documented below is in addition to time spent performing reported procedures but includes the following listed in this critical care notation. Total Time Total Critical Care Time: 60 Medical Decision Making Medical Records Medical records reviewed: Yes I reviewed the patient's medical records. Gabriele Inquiry Pt receiving controlled substance: No Gabriele was queried for this patient: No Vital Signs Vital Signs: 07/08/24 09:21 07/08/24 09:23 07/08/24 09:31 Temperature 98.8 F Temperature Source Axillary Pulse Rate 58 L Pulse Rate [Left] 62 Respiratory Rate 26 H 18 Blood Pressure 159/48 H Blood Pressure [Right Arm] 173/63 H Blood Pressure Mean Blood Pressure Mean [Right Arm] 99 Blood Pressure Source [Right Arm] Automatic Cuff Blood Pressure Position [Right Arm] Sitting 02 Sat by Pulse Oximetry 95 86 L 92 L Oxygen Delivery Method Simple Mask Nasal Cannula BiPAP Oxygen Flow Rate (LPM) 6 07/08/24 09:42 07/08/24 10:01 07/08/24 10:30 Temperature Temperature Source Pulse Rate 69 54 L 54 L Pulse Rate [Left] Respiratory Rate 21 21 17 Blood Pressure 152/59 H 122/45 L 116/44 L Blood Pressure [Right Arm] Blood Pressure Mean 70 62 Blood Pressure Mean [Right Arm] Blood Pressure Source [Right Arm] Blood Pressure Position [Right Arm] 02 Sat by Pulse Oximetry 95 100 96 Oxygen Delivery Method BiPAP Oxygen Flow Rate (LPM) 07/08/24 11:00 Temperature Temperature Source Pulse Rate 54 L Pulse Rate [Left] Respiratory Rate 20 Blood Pressure 128/52 L Blood Pressure [Right Arm] Blood Pressure Mean 66 Blood Pressure Mean [Right Arm] Blood Pressure Source [Right Arm] Blood Pressure Position [Right Arm] 02 Sat by Pulse Oximetry 93 L Oxygen Delivery Method Oxygen Flow Rate (LPM) Lab Data Labs: Lab Results 07/08/24 09:12: WBC 12.6 H, RBC 4.48, Hgb 10.7 L, Hct 35.3 L, MCV 79.0 L, MCH 24.0 L, MCHC 30.4 L, RDW 18.9 H, Plt Count 140 L, MPV 8.2, Neut % (Auto) 84.9 H, Lymph % (Auto) 7.6 L, [place] % (Auto) 5.8, Eos % (Auto) 0.2, Baso % (Auto) 1.5, N eut # (Auto) 10.7 H, Lymph # (Auto) 1.0, [place] # (Auto) 0.7, Eos # (Auto) 0.0, Baso # (Auto) 0.2, PT 11.9, INR 1.07, APTT 26.6, Sodium 141, Potassium 5.1, Chloride 99, Carbon Dioxide 37 H, Anion Gap 10.1, BUN 36 H, Creatinine 1.10 H, Estimated Creat Clear 55, Estimated GFR 47 L, Est GFR ( Amer) 57 L, G lucose 174 H, Lactate 1.2, Calcium 8.6, Total Bilirubin 1.2, AST 54 H, ALT 31, Alkaline Phosphatase 80, Troponin I < 0.01, NT-Pro-B Natriuret Pep 46083 H, Total Protein 7.6, Albumin 4.1, Globulin 3.5 H, Albumin/Globulin Ratio 1.2 07/08/24 09:22: VBG pH 7.22 L, VBG pCO2 83.1 H, VBG pO2 43.2 H, VBG HCO3 33.6 H, VBG Total CO2 36.1 H, VBG O2 Saturation 70.0, VBG Base Excess 5.9 H, VBG Lactic Acid 2.4 H 07/08/24 09:12 07/08/24 09:12 Response Orders (Tests/Meds): ED MEDICATIONS Discontinued Medications Generic Name Dose Route Start Last Admin Trade Name Freq PRN Reason Stop Dose Admin Albuterol/Ipratropium 9 ml 07/08/24 09:21 07/08/24 09:30 Ipratropium/Albuterol 3 Ml Neb IH 07/08/24 09:22 9 ml ONCE ONE Administration Furosemide 60 mg 07/08/24 11:11 07/08/24 11:14 Furosemide 40mg/4ml Vial IV 07/08/24 11:12 60 mg ONCE ONE Administration Azithromycin 500 mg/ Sodium 250 mls @ 250 mls/hr 07/08/24 09:35 07/08/24 10:04 Chloride IV 07/08/24 09:36 250 mls/hr ONCE ONE Administration Ceftriaxone Sodium 2 gm/ 100 mls @ 200 mls/hr 07/08/24 09:35 07/08/24 10:03 Sodium Chloride IV 07/08/24 10:04 200 mls/hr ONCE ONE Administration Magnesium Sulfate 2 gm in 50 mls @ 50 mls/hr 07/08/24 10:33 07/08/24 10:46 Magnesium Sulfate 2gm/50ml Premix IV 07/08/24 11:32 50 mls/hr ONCE ONE Administration Methylprednisolone Sodium Succinate 125 mg 07/08/24 09:21 07/08/24 09:30 Methylprednisolone Sod Succ 125mg Vial IV 07/08/24 09:22 125 mg ONCE ONE Administration ORDERS Category Date Time Status XR chest portable Stat Exams 07/08/24 09:21 Taken Complete Blood Count Auto Diff Stat Lab 07/08/24 09:12 Completed Comprehensive Metabolic Panel Stat Lab 07/08/24 09:12 Completed Lactic Acid Stat Lab 07/08/24 09:12 Completed NT Pro Brain Natriuretic Pep. Stat Lab 07/08/24 09:12 Completed PT INR [Prothrombin Time INR] Stat Lab 07/08/24 09:12 Completed PTT [Activated Partial Thrombo Time] Stat Lab 07/08/24 09:12 Completed Troponin I Q3H Lab 07/08/24 12:30 Ordered Troponin I Q3H Lab 07/08/24 15:30 Ordered Troponin I Stat Lab 07/08/24 09:12 Completed Blood Culture Stat Micro 07/08/24 09:46 Received Venous Blood Gas Stat RT 07/08/24 09:22 Completed MDM Narrative Medical Decision Narrative: This is an ill-appearing 83-year-old female presenting with shortness of patient has hyper, hyperlipidemia, hypoxemia likely secondary to restrictive lung disease and obesity, CHF, COPD, diabetes presenting with shortness of breath. Patient states that she has been feeling short of breath since yesterday, 07/07 in the PM. Got worse throughout the night. Did not wear her CPAP overnight because she did not want to. EMS was called today because she was having difficulty breathing. On arrival, EMS states that she was in the 70%. Given DuoNebs, brought immediately to the emergency department. On arrival, patient speaking in partial 1-2 word sentences, increased accessory muscle use use, prolonged expiratory phase, minimal breath sounds bilaterally, but isolated wheezes on the right. No fevers or chills, nausea or vomiting, or any other concerns. History was obtained via conversation with patient and EMS. On arrival, patient hemodynamically stable, alert, oriented x4, appropriate, GCS 15, moving all extremities spontaneously, pupils equal and reactive to light. Full physical exam performed and significant for patient is ill-appearing. Prolonged expiratory phase, tachypneic, speaking in 1-2 word sentences. Moderate respiratory distress. Minimal breath sounds and minimal air movement bilaterally, primarily on the left. Patient has isolated wheezes throughout on the right. Periorbital edema, patient is able to open her eyes. No evidence of cyanosis. Abdomen soft, nontender, nondistended. No lower extremity edema. Differential includes COPD exacerbation, CHF exacerbation, ACS, MD, pulmonary edema, pleural effusions, pneumonia, bronchitis, among others. Patient was given DuoNebs, Solu-Medrol, BiPAP for symptomatic management and correction of underlying abnormalities. Patient placed on continuous cardiac monitoring and continuous pulse ox with initial blood pressure 173/63, heart rate C2, saturation 95% on BiPAP 50% FiO2 18/10. Independent interpretation of EKG shows what appears to be sinus versus ectopic atrial rhythm 61 beats a minute. NC 193, QRS 137, QTc 471. IV magnesium given. On independent interpretation of imaging, patient has bilateral pleural effusions, pulmonary edema, right middle lobe consolidation. See radiology read for full review of final results. Patient given empiric antibiotics as well as 60 mg IV Lasix. Heart score 5. Independent interpretation of workup with leukocytosis neutrophilia. VBG with hypercapnic respiratory failure with lactate 2.2. Patient's BNP elevated at 12,500. Patient's primary care doctor was contacted and interactive discussion was had, patient to be admitted. Patient appears to be in mixed respiratory failure hypercapnic and hypoxemic in the setting of COPD and CHF exacerbation with pneumonia. Because patient high risk for clinical decompensation, deemed appropriate for inpatient admission. Results were relayed to patient and family who voiced understanding and patient was agreeable to inpatient admission and management. Patient was admitted to the hospital for further definitive management. Respiratory Technician disclaimer Much of this encounter note is an electronic medical office specialist spoken language to printed text. Electronic medical office specialist of the spoken language may permit errors. Although I have reviewed the note, some errors may still exist.
--- NOTE | 2024-07-08 10:45 | PC.NURSE ---
I rounded on the pt, she is resting with her eyes closed. call steel in reach.
[2024-07-08] MEDS: MAGNESIUM SULFATE IN WATER 2 GM/50 ML PIGGYBACK IV (10:46)
--- NOTE | 2024-07-08 11:13 | PC.NURSE ---
I paged the provider medical secretary receptionist for Dr. Adamson
[2024-07-08] MEDS: FUROSEMIDE 40MG/4ML VIAL 60 MG IV (11:14)
--- NOTE | 2024-07-08 11:29 | PC.NURSE ---
DR SOARES SPEAKING WITH DR KLEIN
--- NOTE | 2024-07-08 11:43 | PC.NURSE ---
Juan Diego accepted admission.
--- NOTE | 2024-07-08 12:23 | PC.NURSE ---
COMMUNITY LEADER NOTIFIED OF ADMISSION
--- NOTE | 2024-07-08 12:27 | P.HP_ITS ---
History of Present Illness *Admission Date: 07/08/24 *Reason for visit:: SOA *History of present illness: This is an ill-appearing 83-year-old female presenting with shortness of patient has hyper, hyperlipidemia, hypoxemia likely secondary to restrictive lung disease and obesity, CHF, COPD, diabetes presenting with shortness of breath. Patient states that she has been feeling short of breath since yesterday, 11/12 in the PM. Got worse throughout the night. Did not wear her CPAP overnight because she did not want to. EMS was called today because she was having difficulty breathing. On arrival, EMS states that she was in the 70%. Given DuoNebs, brought immediately to the emergency department. On arrival, patient speaking in partial 1-2 word sentences, increased accessory muscle use use, prolonged expiratory phase, minimal breath sounds bilaterally, but isolated wheezes on the right. No fevers or chills, nausea or vomiting, or any other concerns. History was obtained via conversation with patient and EMS. On arrival, patient hemodynamically stable, alert, oriented x4, appropriate, GCS 15, moving all extremities spontaneously, pupils equal and reactive to light. Full physical exam performed and significant for patient is ill-appearing. Prolonged expiratory phase, tachypneic, speaking in 1-2 word sentences. Moderate respiratory distress. Minimal breath sounds and minimal air movement bilaterally, primarily on the left. Patient has isolated wheezes throughout on the right. Periorbital edema, patient is able to open her eyes. No evidence of cyanosis. Abdomen soft, nontender, nondistended. No lower extremity edema. Differential includes COPD exacerbation, CHF exacerbation, ACS, OK, pulmonary edema, pleural effusions, pneumonia, bronchitis, among others. Patient was given DuoNebs, Solu-Medrol, BiPAP for symptomatic management and correction of underlying abnormalities. Patient placed on continuous cardiac monitoring and continuous pulse ox with initial blood pressure 173/63, heart rate C2, saturation 95% on BiPAP 50% FiO2 18/10. Independent interpretation of EKG shows what appears to be sinus versus ectopic atrial rhythm 61 beats a minute. MI 193, QRS 137, QTc 471. IV magnesium given. On independent interpretation of imaging, patient has bilateral pleural effusions, pulmonary edema, right middle lobe consolidation. See radiology read for full review of final results. Patient given empiric antibiotics as well as 60 mg IV Lasix. Heart score 5. Independent interpretation of workup with leukocytosis neutrophilia. VBG with hypercapnic respiratory failure with lactate 2.2. Patient's BNP elevated at 12,500. Patient's primary care doctor was contacted and interactive discussion was had, patient to be admitted. Patient appears to be in mixed respiratory failure hypercapnic and hypoxemic in the setting of COPD and CHF exacerbation with pneumonia. Because patient high risk for clinical decompensation, deemed appropriate for inpatient admission. Results were relayed to patient and family who voiced understanding and patient was agreeable to inpatient admission and management. Patient was admitted to the hospital for further definitive management. (above as per ER physician) Further to above, patient was just recently discharged from [facility] after a stay for left ankle/foot pain and was discharged to [place] for rehab. She is only minimally responsive but does deny any pain. [facility] Disclaimer: The information contained in this section may have been updated after the patient was seen, as this information can be updated by other users. Medical History Lumbar radiculopathy Degenerative disc disease, lumbar Paratracheal lymphadenopathy CAP (community acquired pneumonia) RICHIE (acute kidney injury) Hypertensive urgency Elevated brain natriuretic peptide (BNP) level Hypertensive emergency CKD (chronic kidney disease) stage 3, GFR 30-59 ml/min Pneumonia Allergic rhinitis Colon polyps Hemorrhoids, internal Osteoporosis Herpes zoster Closed left ankle fracture Closed left hip fracture Lumbar spinal stenosis Lumbar compression fracture Ocular melanoma COPD (chronic obstructive pulmonary disease) Mediastinal lymphadenopathy Sleep apnea Asthma Hyperlipidemia Neuropathy Depression GERD (gastroesophageal reflux disease) Arthritis Hypertension Diabetes Surgical History History of right knee joint replacement History of left knee replacement History of left hip replacement History of left ankle joint replacement 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 History of arthroplasty of right knee History of appendectomy Family History Heart attack Social History Smoking Status: Never smoker alcohol intake: never substance use type: denies use current occupational status: other Travel in the last 8 weeks: None household members: none caffeine: Yes Other Medical History Have you received the Flu Vaccine for this season: No Have you received the Pneumonia Vaccine: No Review of Systems Constitutional Constitutional: Reports fatigue, Denies headache(s), Reports lethargy, Reports malaise and Reports weakness Eyes Eyes: Denies blurry vision and Denies diplopia ENT Ears, Nose, Mouth, and Throat: Denies headache(s), Denies nasal congestion and Denies sore throat *Cardiovascular Cardiovascular: Denies chest pain, Reports dyspnea and Reports leg edema *Respiratory Respiratory: Reports chest congestion, Reports cough and Reports dyspnea *Gastrointestinal Gastrointestinal: Denies abdominal pain, Denies nausea and Denies vomiting *Genitourinary Genitourinary: Reports difficulty voiding *Musculoskeletal Musculoskeletal: Reports arthralgias (left foot/ankle) *Neurologic Neurologic: Denies headache(s) and Reports weakness Endocrine Endocrine: Reports fatigue Meds Home Medications and Allergies Home Medications ?Medication ?Instructions ?Recorded ?Confirmed ?Type metformin 500 mg tablet 500 mg PO BIDWMEAL 03/06/18 07/08/24 History montelukast 10 mg tablet 10 mg PO DAILY 03/06/18 07/08/24 History pregabalin 75 mg capsule (Lyrica) 75 mg PO BID 03/06/18 07/08/24 History simvastatin 20 mg tablet 20 mg PO HS 03/06/18 07/08/24 History escitalopram oxalate 20 mg tablet 20 mg PO DAILY 11/10/23 07/08/24 History fluticasone 250 mcg-salmeterol 50 1 ea inhalation BID 11/10/23 07/08/24 History mcg/dose blistr powdr for inhalation (Wixela Inhub) oxybutynin chloride 10 mg 20 mg PO DAILY 11/10/23 07/08/24 History tablet,extended release 24 hr magnesium oxide 400 mg (241.3 mg 400 mg PO DAILY 02/20/24 07/08/24 History magnesium) tablet furosemide 20 mg tablet (Lasix) 20 mg PO DAILY #30 tabs 02/25/24 07/08/24 Rx irbesartan 300 mg tablet 300 mg PO DAILY #30 tabs 02/25/24 07/08/24 Rx amlodipine 5 mg tablet 5 mg PO DAILY 05/09/24 07/08/24 History esomeprazole magnesium 40 mg 40 mg PO DAILY 05/09/24 07/08/24 History capsule,delayed release metoprolol succinate 50 mg 50 mg PO DAILY 05/09/24 07/08/24 History tablet,extended release 24 hr tizanidine 2 mg tablet 2 mg PO HSP PRN Muscle Pain 05/09/24 07/08/24 History azelastine 137 mcg (0.1 %) nasal 2 spray intranasal DAILY 05/12/24 07/08/24 History spray fluticasone propionate 50 2 spray intranasal DAILY 05/12/24 07/08/24 History mcg/actuation nasal spray,suspension olopatadine 0.7 % eye drops 1 drp ophthalmic (eye) DAILY 05/12/24 07/08/24 History (Pataday Once Daily Relief) bismuth subsalicylate 262 mg tablet 262 mg PO DAILYP PRN indigestion/ 07/08/24 07/08/24 History upset stomach calcium carbonate (Calcium 600) 600 mg PO DAILY 07/08/24 07/08/24 History cholecalciferol (vitamin D3) 25 25 mcg PO DAILY 07/08/24 07/08/24 History mcg (1,000 unit) tablet (Vitamin D3) cinnamon bark 500 mg capsule 1,000 mg PO DAILY 07/08/24 07/08/24 History (Cinnamon) famotidine 20 mg tablet 20 mg PO DAILY 07/08/24 07/08/24 History glucosamine sulfate 2KCl 1,000 mg 1,000 mg PO DAILY 07/08/24 07/08/24 History tablet hydroxyzine HCl 25 mg tablet 25 mg PO TIDP PRN Anxiety 07/08/24 07/08/24 History mecobalamin (vitamin B12) 1,000 3,000 mcg PO DAILY 07/08/24 07/08/24 History mcg chewable tablet (B12 Active) multivitamin 1 tab PO DAILY 07/08/24 07/08/24 History vit C 250 mg-vit E 90 mg-zinc 40 1 tab PO BID 07/08/24 07/08/24 History mg-copper 1 [id number] capsule (PreserVision AREDS-2) New Prescriptions to Start Prescriptions: Allergies Allergy/AdvReac Type Severity Reaction Status Date / Time pollen extracts (POLLEN Allergy Intermediate ASTHMA Verified 07/08/24 09:35 EXTRACTS) Exam Data for Last 24 hours Vital signs and Labs for Last 24 Hours: Temp Pulse Resp BP Pulse Ox O2 Del Method O2 Flow Rate 98.8 F 54 L 20 128/52 L 93 L BiPAP 6 07/08/24 09:23 07/08/24 11:00 07/08/24 11:00 07/08/24 11:00 07/08/24 11:00 07/08/24 09:42 07/08/24 09:21 FiO2 50 07/08/24 10:07 Laboratory Results - last 24 hr 07/08/24 09:12: WBC 12.6 H, RBC 4.48, Hgb 10.7 L, Hct 35.3 L, MCV 79.0 L, MCH 24.0 L, MCHC 30.4 L, RDW 18.9 H, Plt Count 140 L, MPV 8.2, Neut % (Auto) 84.9 H, Lymph % (Auto) 7.6 L, [place] % (Auto) 5.8, Eos % (Auto) 0.2, Baso % (Auto) 1.5, Neut # (Auto) 10.7 H, Lymph # (Auto) 1.0, [place] # (Auto) 0.7, Eos # (Auto) 0.0, Baso # (Auto) 0.2, PT 11.9, INR 1.07, APTT 26.6, Sodium 141, Potassium 5.1, Chloride 99, Carbon Dioxide 37 H, Anion Gap 10.1, BUN 36 H, Creatinine 1.10 H, Estimated Creat Clear 55, Estimated GFR 47 L, Est GFR ( Amer) 57 L, Glucose 174 H, Lactate 1.2, Calcium 8.6, Total Bilirubin 1.2, AST 54 H, ALT 31, Alkaline Phosphatase 80, Troponin I < 0.01, NT-Pro-B Natriuret Pep 88175 H, Total Protein 7.6, Albumin 4.1, Globulin 3.5 H, Albumin/Globulin Ratio 1.2 07/08/24 09:22: VBG pH 7.22 L, VBG pCO2 83.1 H, VBG pO2 43.2 H, VBG HCO3 33.6 H, VBG Total CO2 36.1 H, VBG O2 Saturation 70.0, VBG Base Excess 5.9 H, VBG Lactic Acid 2.4 H I & O for Last 24 hours: Intake & Output 07/06/24 07/07/24 07/08/24 07/09/24 11:59 11:59 11:59 11:59 Weight 204 lb Constitutional Constitutional: mild distress (can shake head yes and no to questioning) *Routine HEENT Exam Head: Present normocephalic Eye: Present EOMI and PERRL ENT: Present mucous membranes dry *Routine Neck Exam Neck: Present supple *Routine Respiratory Exam Respiratory: Present decreased breath sounds (BIPAP in place) *Routine Cardiovascular Exam Cardiovascular: Present RRR *Routine Abdominal Exam Abdominal: Present soft and normoactive bowel sounds; Absent tenderness *Routine Rectal Exam Rectal:: deferred *Routine Genitalia Exam Genitalia:: deferred *Routine Extremities Exam Extremities: Present edema (bilateral LE's) *Routine Skin Exam Skin: Present intact *Routine Neurological Exam Neurological: Present altered mental status (able to answer yes and no questions) H&P: Result Impressions CXR - pending Assessment and Plan *Assessment and plan (1) Sepsis: Status: Acute Category: Medical Code(s): A41.9 - Sepsis, unspecified organism (2) Pneumonia: Status: Acute Category: Medical Code(s): J18.9 - Pneumonia, unspecified organism (3) Acute hypercapnic respiratory failure: Status: Acute Category: Medical Code(s): J96.02 - Acute respiratory failure with hypercapnia (4) Acute hypoxemic respiratory failure: Status: Acute Category: Medical Code(s): J96.01 - Acute respiratory failure with hypoxia (5) Ankle pain: Status: Acute Category: Medical Code(s): M25.579 - Pain in unspecified ankle and joints of unspecified foot (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 Category: Medical Code(s): M21.962 - Unspecified acquired deformity of left lower leg (7) Left ankle instability: Status: Acute Category: Medical Code(s): M25.372 - Other instability, left ankle (8) General weakness: Status: Acute Category: Medical Code(s): R53.1 - Weakness (9) Hypertension: Status: Acute Category: Medical Code(s): I10 - Essential (primary) hypertension (10) Neuropathy: Status: Acute Category: Medical Code(s): G62.9 - Polyneuropathy, unspecified (11) Depression: Status: Acute Category: Medical Code(s): F32.A - Depression, unspecified (12) GERD (gastroesophageal reflux disease): Status: Acute Category: Medical Code(s): K21.9 - Gastro-esophageal reflux disease without esophagitis (13) Hyperlipidemia: Status: Acute Category: Medical Code(s): E78.5 - Hyperlipidemia, unspecified Plan Patient has been started on BIPAP, antibiotics, and lasix. Will get a respiratory panel as well. Dr. Adamson entry - Saw patient, agree with above note.
--- NOTE | 2024-07-08 13:00 | PC.NURSE ---
pt boarding in the ED
[2024-07-08 13:36] LABS: Reflex Lactic Add Lactic Reflex
[2024-07-08 13:59] LABS: Lactic Acid Follow Up (RFLX 1) 1.5 mmol/L (0.7-2.1)
[2024-07-08 14:14] LABS: Microscopic, Urine URINE MICROSCOPIC (MICROSCOPIC)
[2024-07-08 14:23] LABS: Appearance,Urine CLEAR (Clear); Bilirubin,Urine Negative (Negative); Blood, Urine Negative (Negative); Color,Urine YELLOW (Yellow); Glucose,Urine (UA) Negative (Negative); Ketones,Urine Negative (Negative); Leukocyte Esterase,Urine Negative (Negative); Nitrate,Urine Negative (Negative); PH,Urine 5.5 (5.0-8.5); Protein,Urine Negative (Negative); Specific Gravity, Urine 1.025 (1.005-1.030); Urobilinogen,Urine 0.2 EU/dl (0.2)
--- NOTE | 2024-07-08 14:31 | SW/DCPLANNER ---
Addendum entered by Melony Longwood 07/15/24 11:06: I have updated MD that [facility] can accept this patient back SNF level of care and transport patient if medically stable to discharge before 3PM today. Addendum entered by Melony Kim 07/14/24 07:31: Updated patient information faxed to [facility]. Addendum entered by Melony Longwood 07/13/24 09:32: Updated patient information has been faxed to [facility]/ [facility]. Addendum entered by Melony Longwood 07/10/24 13:00: Updated patient information has been faxed to [facility]. Addendum entered by Melony Longwood 07/09/24 09:30: Rich w/ [facility] stated that he will have a female SNF level of care bed available for this patient on Friday 07/13 if needed. Original Note: This patient currently resides at [facility]. I will continue to follow up fátima/ Rich at [facility] until patient is medically stable for discharge. Discharge date is unknown at this time. Updated patient information will be faxed.
--- NOTE | 2024-07-08 14:31 | PC.NURSE ---
report called to ran on second floor
[2024-07-08 14:40] LABS: Squamous Epithelial Cell,Urine Occasional #/hpf (0-5)
--- NOTE | 2024-07-08 14:40 | PC.NURSE ---
arrived by stretcher from ED
--- NOTE | 2024-07-08 16:13 | P.CONPHA_ITS ---
Pharmacy Intervention Comments: home medications verified via [facility] med list and outpatient pharmacy
--- NOTE | 2024-07-08 16:13 | HMH.PHAINT1 ---
Pharmacy Intervention Comments: home medications verified via [facility] med list and outpatient pharmacy
[2024-07-08 16:28] LABS: Troponin I < 0.01 ng/ml (0.00-0.034)
[2024-07-08] MEDS: IPRATROPIUM/ALBUTEROL 3 ML NEB IH ×2 (18:22→23:06)
[2024-07-08] MEDS: FAMOTIDINE 20MG/2ML VIAL 20 MG IV (20:06)
[2024-07-09] VITALS (29 sets, daily range): BP systolic 124–175; BP diastolic 46–81; PULSE 48–76; RESP 18–26; TEMP 36.5–37.1; O2SAT 89–99; BMI 35.2
[2024-07-09] MEDS: METHYLPREDNISOLONE SOD SUCC 125MG VIAL 125 MG IV ×3 (00:47→18:20)
--- NOTE | 2024-07-09 04:17 | PC.NURSE ---
Patient has had a good night. Has woken up confused at times but is quickly reoriented. she has kept her bipap on all night and done well. She did get a bath and has rested well since.
[2024-07-09] MEDS: AZITHROMYCIN 500 MG in 0.9 % SODIUM CHLORIDE 250 ML 250 MG IV (06:06)
[2024-07-09] MEDS: IPRATROPIUM/ALBUTEROL 3 ML NEB IH ×4 (06:57→23:01)
--- NOTE | 2024-07-09 07:00 | XR_ITS ---
FINAL REPORT CLINICAL HISTORY: Shortness of breath COMPARISON: 07/08/2024 FINDINGS: A single portable view of the chest was obtained. The heart is enlarged. Pulmonary vascularity is within normal limits. The mediastinum is within normal limits. There are partially improved bilateral pulmonary opacities consistent with improved edema or pneumonia. The bony thorax is intact. IMPRESSION: Findings consistent with improved edema or pneumonia. Reviewed, Interpreted and Dictated by Adrián Peralta III, MD Transcribed by [employer] Authenticated and [facility]
--- NOTE | 2024-07-09 08:14 | EXP.ACUTE.PN ---
Subjective *Date: 07/09/24 *Time: 09:09 Interval history: Patient is much more awake and alert today. She is c/o her eyes watering and would like something to help. She normally uses pataday. She denies any pain and states her SOA is slightly better today. Medical Exam Vital signs and Labs for Last 24 Hours: Vital Signs Temp Pulse Pulse Resp BP BP Pulse Ox 07/09/24 08:09 96 07/09/24 07:38 60 97 07/09/24 06:56 53 L 07/09/24 06:56 52 L 07/09/24 06:56 07/09/24 06:46 07/09/24 06:00 54 L 18 166/69 H 95 07/09/24 05:00 07/09/24 04:00 60 07/09/24 04:00 98 F 52 L 26 H 146/74 H 94 L 07/09/24 04:00 07/09/24 03:00 07/09/24 02:15 07/09/24 02:00 54 L 18 138/62 93 L 07/09/24 00:33 07/09/24 00:00 50 L 07/09/24 00:00 97.7 F 48 L 18 133/55 L 96 07/08/24 23:07 59 L 07/08/24 23:07 62 07/08/24 23:07 97 07/08/24 23:00 07/08/24 22:45 07/08/24 22:00 66 18 123/56 L 94 L 07/08/24 21:00 07/08/24 20:00 98.3 F 60 18 135/52 L 91 L 07/08/24 20:00 07/08/24 19:50 60 07/08/24 19:00 66 20 147/55 H 95 07/08/24 19:00 07/08/24 18:23 61 07/08/24 18:23 64 07/08/24 18:23 94 L 07/08/24 18:00 60 18 116/49 L 95 07/08/24 17:00 53 L 18 126/55 L 95 07/08/24 17:00 07/08/24 16:30 57 L 95 07/08/24 16:00 60 07/08/24 16:00 97.9 F 07/08/24 15:04 07/08/24 15:00 07/08/24 14:38 98.0 F 59 L 14 123/53 L 07/08/24 12:27 98.0 F 51 L 18 125/48 L 07/08/24 11:00 54 L 20 128/52 L 93 L 07/08/24 10:30 54 L 17 116/44 L 96 07/08/24 10:07 07/08/24 10:01 54 L 21 122/45 L 100 07/08/24 09:42 69 21 152/59 H 95 07/08/24 09:31 58 L 18 159/48 H 92 L 07/08/24 09:23 98.8 F 62 26 H 173/63 H 86 L 07/08/24 09:21 95 O2 Del Method O2 Flow Rate FiO2 07/09/24 08:09 BiPAP 35 07/09/24 07:38 BiPAP 35 07/09/24 06:56 07/09/24 06:56 07/09/24 06:56 35 07/09/24 06:46 BiPAP 07/09/24 06:00 BiPAP 35 07/09/24 05:00 BiPAP 07/09/24 04:00 07/09/24 04:00 BiPAP 07/09/24 04:00 BiPAP 35 07/09/24 03:00 BiPAP 07/09/24 02:15 35 07/09/24 02:00 BiPAP 35 07/09/24 00:33 BiPAP 07/09/24 00:00 07/09/24 00:00 BiPAP 07/08/24 23:07 07/08/24 23:07 07/08/24 23:07 BiPAP 07/08/24 23:00 BiPAP 07/08/24 22:45 50 07/08/24 22:00 Nasal Cannula 6 07/08/24 21:00 Nasal Cannula 6 07/08/24 20:00 Nasal Cannula 6 07/08/24 20:00 Nasal Cannula, BiPAP 07/08/24 19:50 07/08/24 19:00 Nasal Cannula 6 07/08/24 19:00 Nasal Cannula 6 07/08/24 18:23 07/08/24 18:23 07/08/24 18:23 Nasal Cannula 6 07/08/24 18:00 BiPAP 50 07/08/24 17:00 BiPAP 50 07/08/24 17:00 BiPAP 07/08/24 16:30 BiPAP 50 07/08/24 16:00 07/08/24 16:00 07/08/24 15:04 50 07/08/24 15:00 BiPAP 07/08/24 14:38 07/08/24 12:27 BiPAP 07/08/24 11:00 07/08/24 10:30 07/08/24 10:07 50 07/08/24 10:01 07/08/24 09:42 BiPAP 07/08/24 09:31 BiPAP 07/08/24 09:23 Nasal Cannula 07/08/24 09:21 Simple Mask 6 Intake and Output 07/08/24 07/09/24 07/09/24 19:59 03:59 11:59 Intake Total 210 / 210 Output Total 600 / 1600 700 / 1600 300 / 1600 Balance -390 / -1390 -700 / -1390 -300 / -1390 Intake: Intake, Oral Amount 210 / 210 Output: Output, Urine Amount 700 / 700 Output, Urine Amount (Catheter) 600 / 900 300 / 900 Ramirez 600 / 900 300 / 900 Other: Number of Unmeasured Voids 0 0 Weight 218 lb 219 lb Patient Weight 07/09/24 11:59 Weight 219 lb Laboratory Results - last 24 hr 07/08/24 09:12: WBC 12.6 H, RBC 4.48, Hgb 10.7 L, Hct 35.3 L, MCV 79.0 L, MCH 24.0 L, MCHC 30.4 L, RDW 18.9 H, Plt Count 140 L, MPV 8.2, Neut % (Auto) 84.9 H, Lymph % (Auto) 7.6 L, [place] % (Auto) 5.8, Eos % (Auto) 0.2, Baso % (Auto) 1.5, Neut # (Auto) 10.7 H, Lymph # (Auto) 1.0, [place] # (Auto) 0.7, Eos # (Auto) 0.0, Baso # (Auto) 0.2, PT 11.9, INR 1.07, APTT 26.6, Sodium 141, Potassium 5.1, Chloride 99, Carbon Dioxide 37 H, Anion Gap 10.1, BUN 36 H, Creatinine 1.10 H, Estimated Creat Clear 55, Estimated GFR 47 L, Est GFR ( Amer) 57 L, Glucose 174 H, Lactate 1.2, Calcium 8.6, Total Bilirubin 1.2, AST 54 H, ALT 31, Alkaline Phosphatase 80, Troponin I < 0.01, NT-Pro-B Natriuret Pep 96094 H, Total Protein 7.6, Albumin 4.1, Globulin 3.5 H, Albumin/Globulin Ratio 1.2 07/08/24 09:22: VBG pH 7.22 L, VBG pCO2 83.1 H, VBG pO2 43.2 H, VBG HCO3 33.6 H, VBG Total CO2 36.1 H, VBG O2 Saturation 70.0, VBG Base Excess 5.9 H, VBG Lactic Acid 2.4 H 07/08/24 13:31: Urine Color Yellow, Urine Appearance Clear, Urine pH 5.5, Ur Specific [place] 1.025, Urine Protein Negative, Urine Glucose (UA) Negative, Urine Ketones Negative, Urine Blood Negative, Urine Nitrate Negative, Urine Bilirubin Negative, Urine Urobilinogen 0.2, Ur Leukocyte Esterase Negative, Urine RBC None, Urine WBC None, Ur Squamous Epith Cells Occasional, Urine Bacteria None 07/08/24 13:40: Lactate 1.5 07/08/24 15:53: Troponin I < 0.01 I & O for Labs for Last 24 Hours: Intake & Output 07/06/24 07/07/24 07/08/24 07/09/24 11:59 11:59 11:59 11:59 Intake Total 210 / 210 Output Total 1600 / 1600 Balance -1390 / -1390 Weight 204 lb 219 lb Constitutional: Present no acute distress Respiratory: Present decreased breath sounds Cardiac: Present Reg Rate and Rhythm GI: Present soft and hernia; Absent distention or tenderness Extremities: Present edema (bilateral LE's) Skin: Present intact Neuro: Present alert, awake and oriented x 3 Assessment and Plan *Assessment and plan (1) Sepsis: Status: Acute Category: Medical Code(s): A41.9 - Sepsis, unspecified organism (2) Pneumonia: Status: Acute Category: Medical Code(s): J18.9 - Pneumonia, unspecified organism (3) Acute hypercapnic respiratory failure: Status: Acute Category: Medical Code(s): J96.02 - Acute respiratory failure with hypercapnia (4) Acute hypoxemic respiratory failure: Status: Acute Category: Medical Code(s): J96.01 - Acute respiratory failure with hypoxia (5) Ankle pain: Status: Acute Category: Medical Code(s): M25.579 - Pain in unspecified ankle and joints of unspecified foot (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 Category: Medical Code(s): M21.962 - Unspecified acquired deformity of left lower leg (7) Left ankle instability: Status: Acute Category: Medical Code(s): M25.372 - Other instability, left ankle (8) General weakness: Status: Acute Category: Medical Code(s): R53.1 - Weakness (9) Hypertension: Status: Acute Category: Medical Code(s): I10 - Essential (primary) hypertension (10) Neuropathy: Status: Acute Category: Medical Code(s): G62.9 - Polyneuropathy, unspecified (11) Depression: Status: Acute Category: Medical Code(s): F32.A - Depression, unspecified (12) GERD (gastroesophageal reflux disease): Status: Acute Category: Medical Code(s): K21.9 - Gastro-esophageal reflux disease without esophagitis (13) Hyperlipidemia: Status: Acute Category: Medical Code(s): E78.5 - Hyperlipidemia, unspecified Plan Will continue BIPAP, antibiotics, and lasix. Awaiting respiratory panel. Will order pataday eye drops. Dr. Adamson entry - Saw patient, agree with above note, other than will attempt to wean from BiPAP today.
[2024-07-09] MEDS: OLOPATADINE 0.1% OP ×2 (08:44→20:35)
[2024-07-09] MEDS: CEFTRIAXONE 1 GM 1 GM in 0.9 % SODIUM CHLORIDE 50 ML IV (08:46)
[2024-07-09] MEDS: SODIUM CHLORIDE 0.9% 10ML VIAL 8 ML IV (08:46)
[2024-07-09] MEDS: FAMOTIDINE 20MG/2ML VIAL 20 MG IV (08:46)
[2024-07-09] MEDS: ENOXAPARIN 40MG/0.4ML SYRINGE 40 MG SUBCUT (08:46)
[2024-07-09 09:00] LABS: Adenovirus,PCR Not Detected (NotDetected); Bordetella Pertussis Not Detected (NotDetected); Chlamydophila Pneumoniae, PCR Not Detected (NotDetected); Coronavirus 19, PCR Not Detected (NotDetected); Coronavirus 229E Not Detected (NotDetected); Coronavirus NL63 Not Detected (NotDetected); Coronavirus OC43 Not Detected (NotDetected); Coronovirus HKU1,PCR Not Detected (NotDetected); Human Metapneumovirus Not Detected (NotDetected); Influenza A, PCR Not Detected (NotDetected); Influenza AH1, 2009 Not Detected (NotDetected); Influenza AH1, PCR Not Detected (NotDetected); Influenza AH3,PCR Not Detected (NotDetected); Influenza B, PCR Not Detected (NotDetected); Mycoplasma Pneumoniae, PCR Not Detected (NotDetected); Parainfluenza 1, PCR Not Detected (NotDetected); Parainfluenza 2, PCR Not Detected (NotDetected); Parainfluenza 3, PCR Not Detected (NotDetected); Parainfluenza 4, PCR Not Detected (NotDetected); Respiratory Syncytial Virus Not Detected (NotDetected); Rhinovirus/Enterovirus Not Detected (NotDetected)
--- NOTE | 2024-07-09 11:27 | PC.NURSE ---
1124 notified Smita in [facility] that Dr Adamson has ordered for pt to be placed on vapotherm r/t sats 87-89 on 6 lpm
--- NOTE | 2024-07-09 11:38 | PC.NURSE ---
RESP CARE NOTE: Pt placed on 20L/60% vapotherm to maintain SPO2 above 90%. Will continue to monitor patient.
[2024-07-10] VITALS (20 sets, daily range): BP systolic 137–183; BP diastolic 62–99; PULSE 57–82; RESP 18–63; TEMP 36.6–37; O2SAT 87–97; BMI 35.0
[2024-07-10] MEDS: METHYLPREDNISOLONE SOD SUCC 125MG VIAL 125 MG IV ×3 (02:02→16:52)
[2024-07-10] MEDS: IPRATROPIUM/ALBUTEROL 3 ML NEB IH ×4 (06:35→23:05)
[2024-07-10] MEDS: AZITHROMYCIN 500 MG in 0.9 % SODIUM CHLORIDE 250 ML 250 MG IV (07:40)
--- NOTE | 2024-07-10 08:21 | EXP.ACUTE.PN ---
Subjective *Date: 07/10/24 *Time: 08:54 Interval history: Patient is feeling a little better today. She tried nasal oxygen and her saturations dropped so she was placed on vapotherm. She states she would like to try nasal oxygen again today because the vapotherm makes her nose run. She denies any pain. She did not rest as well last night. She got choked on her gravy this am and did not eat very much. Medical Exam Vital signs and Labs for Last 24 Hours: Vital Signs Temp Pulse Pulse Resp BP Pulse Ox O2 Del Method 07/10/24 07:00 Vapotherm 07/10/24 06:35 96 Vapotherm 07/10/24 06:35 63 07/10/24 06:35 57 L 07/10/24 06:00 62 18 183/81 H CPAP 07/10/24 05:00 CPAP 07/10/24 04:00 98.6 F 07/10/24 04:00 70 07/10/24 04:00 64 20 179/72 H CPAP 07/10/24 04:00 95 CPAP 07/10/24 03:00 CPAP 07/10/24 02:00 61 18 157/75 H CPAP 07/10/24 01:00 CPAP 07/10/24 00:44 CPAP 07/10/24 00:00 70 07/09/24 23:34 97.7 F 07/09/24 23:01 67 07/09/24 23:01 67 07/09/24 23:00 CPAP 07/09/24 22:00 74 18 175/81 H Vapotherm 07/09/24 21:00 Vapotherm 07/09/24 20:00 70 07/09/24 20:00 92 L Vapotherm 07/09/24 20:00 98.2 F 07/09/24 18:38 Vapotherm 07/09/24 18:00 74 20 154/68 H 96 Vapotherm 07/09/24 17:29 70 07/09/24 17:29 67 07/09/24 17:29 99 Vapotherm 07/09/24 17:00 Vapotherm 07/09/24 17:00 67 20 159/70 H 97 Vapotherm 07/09/24 16:26 69 20 158/77 H 89 L Vapotherm 07/09/24 16:16 95 Vapotherm 07/09/24 16:00 98.4 F 07/09/24 16:00 70 07/09/24 15:30 66 93 L Vapotherm 07/09/24 15:23 Vapotherm 07/09/24 15:00 76 20 153/66 H 92 L Vapotherm 07/09/24 14:00 66 22 135/65 91 L Vapotherm 07/09/24 13:30 Vapotherm 07/09/24 13:00 73 20 135/64 92 L Vapotherm 07/09/24 12:00 70 07/09/24 11:58 94 L Vapotherm 07/09/24 11:50 Vapotherm 07/09/24 11:26 69 07/09/24 11:26 62 07/09/24 11:26 91 L Nasal Cannula 07/09/24 11:00 98.8 F 07/09/24 11:00 66 20 124/55 L 91 L Vapotherm 07/09/24 10:00 68 22 132/61 91 L Nasal Cannula 07/09/24 09:00 Nasal Cannula 07/09/24 09:00 97.9 F O2 Flow Rate FiO2 07/10/24 07:00 07/10/24 06:35 30 50 07/10/24 06:35 07/10/24 06:35 07/10/24 06:00 07/10/24 05:00 07/10/24 04:00 07/10/24 04:00 07/10/24 04:00 07/10/24 04:00 07/10/24 03:00 07/10/24 02:00 07/10/24 01:00 07/10/24 00:44 6 07/10/24 00:00 07/09/24 23:34 07/09/24 23:01 07/09/24 23:01 07/09/24 23:00 07/09/24 22:00 07/09/24 21:00 07/09/24 20:00 07/09/24 20:00 07/09/24 20:00 07/09/24 18:38 07/09/24 18:00 20 60 07/09/24 17:29 07/09/24 17:29 07/09/24 17:29 20 60 07/09/24 17:00 07/09/24 17:00 20 60 07/09/24 16:26 20 60 07/09/24 16:16 20 60 07/09/24 16:00 07/09/24 16:00 07/09/24 15:30 20 60 07/09/24 15:23 07/09/24 15:00 07/09/24 14:00 07/09/24 13:30 07/09/24 13:00 07/09/24 12:00 07/09/24 11:58 20 60 07/09/24 11:50 07/09/24 11:26 07/09/24 11:26 07/09/24 11:26 6 07/09/24 11:00 07/09/24 11:00 07/09/24 10:00 6 07/09/24 09:00 6 07/09/24 09:00 Intake and Output 07/09/24 07/10/24 07/10/24 19:59 03:59 11:59 Intake Total 900 / 900 Output Total 0 / 1200 800 / 1200 400 / 1200 Balance 900 / -300 -800 / -300 -400 / -300 Intake: Intake, Oral Amount 900 / 900 Output: Output, Urine Amount 0 / 0 Output, Urine Amount (Catheter) 800 / 1200 400 / 1200 Ramirez 800 / 1200 400 / 1200 Other: Number of Voids 0 Number of Unmeasured Voids 0 0 0 Number of Bowel Movements 1 Weight 218 lb 1.6 oz Patient Weight 07/10/24 11:59 Weight 218 lb 1.6 oz Laboratory Results - last 24 hr 07/09/24 08:51: Chlamy pneumoniae PCR Not detected, Adenovirus (PCR) Not detected, B. pertussis DNA (PCR) Not detected, Coronavirus OC43 (PCR) Not detected, Coronavirus HKU1 (PCR) Not detected, Coronavirus 229E (PCR) Not detected, SARS-CoV-2 (PCR) Not detected, Coronavirus NL63 (PCR) Not detected, Human Metapneumovir PCR Not detected, Influenza A (H1) PCR Not detected, Influ A (H1N1/09) PCR Not detected, Influenza A (H3) PCR Not detected, Influenza Type A (PCR) Not detected, Influenza Type B (PCR) Not detected, M. pneumoniae (PCR) Not detected, Parainfluenza 1 (PCR) Not detected, Parainfluenza 2 (PCR) Not detected, Parainfluenza 3 (PCR) Not detected, Parainfluenza 4 (PCR) Not detected, RSV (PCR) Not detected, Entero/Rhino (PCR) Not detected I & O for Labs for Last 24 Hours: Intake & Output 07/07/24 07/08/24 07/09/24 07/10/24 11:59 11:59 11:59 11:59 Intake Total 510 / 510 900 / 900 Output Total 1600 / 1600 1200 / 1200 Balance -1090 / -1090 -300 / -300 Weight 204 lb 219 lb 218 lb 1.6 oz Microbiology Reports for the Last 24 Hours: Microbiology 07/08/24 09:46 Blood Blood Culture - Preliminary NO GROWTH AFTER 24 HOURS 07/08/24 09:40 Blood Blood Culture - Preliminary NO GROWTH AFTER 24 HOURS Constitutional: Present no acute distress Respiratory: Present decreased breath sounds Cardiac: Present Reg Rate and Rhythm GI: Present soft and hernia; Absent distention or tenderness Extremities: Present edema (LLE) Skin: Present intact Neuro: Present alert, awake and oriented x 3 Assessment and Plan *Assessment and plan (1) Sepsis: Status: Acute Category: Medical Code(s): A41.9 - Sepsis, unspecified organism (2) Pneumonia: Status: Acute Category: Medical Code(s): J18.9 - Pneumonia, unspecified organism (3) Acute hypercapnic respiratory failure: Status: Acute Category: Medical Code(s): J96.02 - Acute respiratory failure with hypercapnia (4) Acute hypoxemic respiratory failure: Status: Acute Category: Medical Code(s): J96.01 - Acute respiratory failure with hypoxia (5) Ankle pain: Status: Acute Category: Medical Code(s): M25.579 - Pain in unspecified ankle and joints of unspecified foot (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 Category: Medical Code(s): M21.962 - Unspecified acquired deformity of left lower leg (7) Left ankle instability: Status: Acute Category: Medical Code(s): M25.372 - Other instability, left ankle (8) General weakness: Status: Acute Category: Medical Code(s): R53.1 - Weakness (9) Hypertension: Status: Acute Category: Medical Code(s): I10 - Essential (primary) hypertension (10) Neuropathy: Status: Acute Category: Medical Code(s): G62.9 - Polyneuropathy, unspecified (11) Depression: Status: Acute Category: Medical Code(s): F32.A - Depression, unspecified (12) GERD (gastroesophageal reflux disease): Status: Acute Category: Medical Code(s): K21.9 - Gastro-esophageal reflux disease without esophagitis (13) Hyperlipidemia: Status: Acute Category: Medical Code(s): E78.5 - Hyperlipidemia, unspecified Plan Will continue antibiotics. Respiratory panel was negative. Pataday eye drops are helping. Will attempt to wean from vapotherm today. Dr. Adamson entry - Saw patient, agree with above note.
[2024-07-10] MEDS: CEFTRIAXONE 1 GM 1 GM in 0.9 % SODIUM CHLORIDE 50 ML IV (08:46)
[2024-07-10] MEDS: FAMOTIDINE 20MG/2ML VIAL 20 MG IV (08:48)
[2024-07-10] MEDS: AMLODIPINE 5MG TABLET 5 MG PO (09:39)
[2024-07-10] MEDS: OLOPATADINE 0.1% OP ×2 (09:39→20:14)
[2024-07-10] MEDS: CITALOPRAM 40MG TABLET 40 MG PO (09:39)
[2024-07-10] MEDS: ENOXAPARIN 40MG/0.4ML SYRINGE 40 MG SUBCUT (09:39)
[2024-07-10] MEDS: PREGABALIN 25MG CAPSULE 75 MG PO ×2 (09:41→20:14)
--- NOTE | 2024-07-10 16:29 | PC.NURSE ---
Patient remains on 25L 50% vapotherm, lung sounds diminished. Patient alert and oriented times 4, vs stable. Patient turned q2, lopez in place. Clear yellow drainage noted.
--- NOTE | 2024-07-10 16:30 | PC.NURSE ---
Patient remains on 25L 50% vapotherm, lung sounds diminished. Patient alert and oriented times 4, vs stable. Patient turned q2, lopez in place. Clear yellow urine in lopez bag.
[2024-07-10] MEDS: FUROSEMIDE 40MG/4ML VIAL 40 MG IV (16:52)
[2024-07-10] MEDS: PRAVASTATIN 40MG TAB 40 MG PO (20:14)
[2024-07-10] MEDS: PANTOPRAZOLE 40MG TABLET 40 MG PO (20:14)
[2024-07-11] VITALS (18 sets, daily range): BP systolic 150–197; BP diastolic 63–86; PULSE 51–102; RESP 18–23; TEMP 36.7–37.1; O2SAT 90–97; BMI 35.0
[2024-07-11] MEDS: METHYLPREDNISOLONE SOD SUCC 125MG VIAL 125 MG IV ×3 (00:52→18:02)
--- NOTE | 2024-07-11 05:54 | PC.NURSE ---
Patient remains A/O able to voice needs to staff. Patient rested throughout the night and was compliant with c pap. Turned and repositioned q2 per staff. Reviewed POC and d/c goals pt v/u and has no new c/o. Call light at reach.
[2024-07-11 06:11] LABS: Basophils % 0.2 % (0.1-2.0); Eosinophils % 0.1 % (0.1-12.0); Hematocrit 33.4 % (37.0-47.0); Hemoglobin 10.3 g/dL (12.2-16.2); Lymphocytes # 0.4 K/mm3 (0.7-4.5); Lymphocytes % 4.7 % (10-50); Mean Corpuscular HGB Conc 30.9 g/dL (31.8-35.4); Mean Corpuscular Hemoglobin 23.8 pg (27.0-31.2); Mean Corpuscular Volume 77.1 fl (81-99); Mean Platelet Volume 7.5 fl (7.4-10.4); Monocytes # 0.4 K/mm3 (0.1-1.0); Monocytes % 5.7 % (1.7-9.3); Neutrophils # 6.8 K/mm3 (1.8-7.8); Neutrophils % 89.4 % (37.0-80.0); Platelet Count 163 K/mm3 (142-424); Red Blood Count 4.33 M/mm3 (4.20-5.40); Red Cell Distribution Width 18.9 % (11.5-17.5); White Blood Count 7.6 K/mm3 (4.8-10.8)
[2024-07-11] MEDS: AZITHROMYCIN 500 MG in 0.9 % SODIUM CHLORIDE 250 ML 250 MG IV (06:11)
[2024-07-11 06:12] LABS: MANUAL DIFFERENTIAL MANUAL DIFFERENTIAL (MANUAL DIFF)
[2024-07-11 06:16] LABS: Anion Gap 9.3 mEq/L (5-15); Blood Urea Nitrogen 35 mg/dl (7-17); Calcium 8.6 mg/dl (8.4-10.2); Carbon Dioxide 40 mmol/L (22.0-30.0); Chloride 94 mmol/L (98-107); Creatinine Clearance Estimated 64 mL/min (50-200); Estimated Glomerular Filt Rate 68 ml/min (>60); GFR (African American) 82 ML/MIN (>60); Glucose 242 mg/dl (74-100); Potassium 3.3 mmoL/L (3.5-5.1); Sodium 140 mmol/L (136-145)
[2024-07-11] MEDS: IPRATROPIUM/ALBUTEROL 3 ML NEB IH ×4 (06:17→23:18)
[2024-07-11 06:36] LABS: Lymphocytes % 8 % (10-50); Monocytes % 2 % (2-9); Neutrophils % 90 % (42-76); Platelet Estimate Normal; RBC Morphology Normal; Total Cells Counted 100
[2024-07-11] MEDS: CEFTRIAXONE 1 GM 1 GM in 0.9 % SODIUM CHLORIDE 50 ML IV (08:40)
[2024-07-11] MEDS: CITALOPRAM 40MG TABLET 40 MG PO (08:40)
[2024-07-11] MEDS: ENOXAPARIN 40MG/0.4ML SYRINGE 40 MG SUBCUT (08:40)
[2024-07-11] MEDS: AMLODIPINE 5MG TABLET 5 MG PO (08:41)
[2024-07-11] MEDS: OLOPATADINE 0.1% OP ×2 (08:41→20:10)
[2024-07-11] MEDS: FAMOTIDINE 20MG/2ML VIAL 20 MG IV (08:41)
[2024-07-11] MEDS: SODIUM CHLORIDE 0.9% 10ML VIAL 8 ML IV (08:41)
[2024-07-11] MEDS: PREGABALIN 25MG CAPSULE 75 MG PO ×2 (08:44→20:09)
--- NOTE | 2024-07-11 08:51 | EXP.ACUTE.PN ---
Subjective *Date: 07/11/24 *Time: 08:51 Interval history: Patient states she feels better today, does not like the Vapotherm. Medical Exam Vital signs and Labs for Last 24 Hours: Vital Signs Temp Pulse Pulse Resp BP Pulse Ox O2 Del Method 07/11/24 08:00 98.1 F 07/11/24 08:00 78 18 185/71 H 93 L Vapotherm 07/11/24 07:34 Vapotherm 07/11/24 07:00 Vapotherm 07/11/24 06:17 83 07/11/24 06:17 102 H 07/11/24 06:17 96 Vapotherm 07/11/24 06:00 70 20 183/85 H 95 Vapotherm 07/11/24 05:00 CPAP 07/11/24 04:00 68 07/11/24 04:00 51 L 20 197/86 H CPAP 07/11/24 04:00 CPAP 07/11/24 03:00 CPAP 07/11/24 02:00 68 23 176/82 H 94 L CPAP 07/11/24 00:55 CPAP 07/11/24 00:00 68 07/11/24 00:00 62 18 176/78 H 97 CPAP 07/10/24 23:06 68 07/10/24 23:06 71 07/10/24 23:06 92 L Vapotherm 07/10/24 23:00 Vapotherm 07/10/24 22:00 73 18 183/99 H 97 Vapotherm 07/10/24 21:00 Vapotherm 07/10/24 20:00 80 07/10/24 20:00 98 F 07/10/24 19:50 92 L Vapotherm 07/10/24 19:47 82 20 164/68 H 92 L Vapotherm 07/10/24 18:38 Vapotherm 07/10/24 18:18 71 07/10/24 18:18 72 07/10/24 18:18 91 L Vapotherm 07/10/24 18:00 98.6 F 07/10/24 17:00 Vapotherm 07/10/24 16:00 60 07/10/24 16:00 Vapotherm 07/10/24 16:00 64 20 169/70 H 92 L Vapotherm 07/10/24 15:00 Vapotherm 07/10/24 14:00 66 24 152/67 H 93 L Vapotherm 07/10/24 13:05 Vapotherm 07/10/24 12:00 60 07/10/24 12:00 98.2 F 07/10/24 11:06 Vapotherm 07/10/24 11:00 64 07/10/24 11:00 66 07/10/24 10:00 63 24 176/62 H 93 L Vapotherm 07/10/24 09:33 87 L Vapotherm 07/10/24 09:15 91 L Vapotherm 07/10/24 09:00 Vapotherm O2 Flow Rate FiO2 07/11/24 08:00 07/11/24 08:00 50 07/11/24 07:34 20 50 07/11/24 07:00 07/11/24 06:17 07/11/24 06:17 07/11/24 06:17 20 50 07/11/24 06:00 07/11/24 05:00 07/11/24 04:00 07/11/24 04:00 07/11/24 04:00 07/11/24 03:00 07/11/24 02:00 07/11/24 00:55 07/11/24 00:00 07/11/24 00:00 07/10/24 23:06 07/10/24 23:06 07/10/24 23:06 25 50 07/10/24 23:00 07/10/24 22:00 07/10/24 21:00 07/10/24 20:00 07/10/24 20:00 07/10/24 19:50 07/10/24 19:47 07/10/24 18:38 25 07/10/24 18:18 07/10/24 18:18 07/10/24 18:18 25 50 07/10/24 18:00 07/10/24 17:00 25 07/10/24 16:00 07/10/24 16:00 25 50 07/10/24 16:00 07/10/24 15:00 25 07/10/24 14:00 25 50 07/10/24 13:05 25 07/10/24 12:00 07/10/24 12:00 07/10/24 11:06 25 07/10/24 11:00 07/10/24 11:00 07/10/24 10:00 25 50 07/10/24 09:33 25 50 07/10/24 09:15 20 50 07/10/24 09:00 25 Intake and Output 07/10/24 07/11/24 07/11/24 23:59 07:59 15:59 Intake Total 540 / 1980 240 / 640 400 / 640 Output Total 1000 / 3125 1999 Balance -460 / -1145 -1760 / -1360 400 / -1360 Intake: Intake, Oral Amount 540 / 1630 240 / 640 400 / 640 Output: Output, Urine Amount 1000 / 1425 0 / 0 Output, Urine Amount (Catheter) 1999 Ramirez 1999 Other: Number of Unmeasured Voids 0 0 Weight 218 lb 1.653 oz Patient Weight 07/11/24 23:59 Weight 218 lb 1.653 oz Laboratory Results - last 24 hr 07/11/24 05:39: WBC 7.6 D, RBC 4.33, Hgb 10.3 L, Hct 33.4 L, MCV 77.1 L, MCH 23.8 L, MCHC 30.9 L, RDW 18.9 H, Plt Count 163, MPV 7.5, Neut % (Auto) 89.4 H, Lymph % (Auto) 4.7 L, Dewitt % (Auto) 5.7, Eos % (Auto) 0.1, Baso % (Auto) 0.2, Neut # (Auto) 6.8, Lymph # (Auto) 0.4 L, Dewitt # (Auto) 0.4, Eos # (Auto) 0.0, Baso # (Auto) 0.0, Total Counted 100, Neutrophils % (Manual) 90 H, Lymphocytes % (Manual) 8 L, Monocytes % (Manual) 2, Platelet Estimate Normal, RBC Morphology Normal, Sodium 140, Potassium 3.3 L D, Chloride 94 L, Carbon Dioxide 40 H, Anion Gap 9.3, BUN 35 H, Creatinine 0.80 D, Estimated Creat Clear 64, Estimated GFR 68, Est GFR ( Amer) 82 D, Glucose 242 H, Calcium 8.6 I & O for Labs for Last 24 Hours: Intake & Output 07/08/24 07/09/24 07/10/24 07/11/24 23:59 23:59 23:59 23:59 Intake Total 210 / 210 1200 / 1200 1740 / 1980 640 / 640 Output Total 1300 / 1300 1100 / 1100 1825 / 3125 1999 Balance -1090 / -1090 100 / 100 -85 / -1145 -1360 / -1360 Weight 218 lb 219 lb 218 lb 1.653 oz 218 lb 1.653 oz Microbiology Reports for the Last 24 Hours: Microbiology 07/08/24 09:46 Blood Blood Culture - Preliminary NO GROWTH AFTER 48 HOURS 07/08/24 09:40 Blood Blood Culture - Preliminary NO GROWTH AFTER 48 HOURS Constitutional: Present no acute distress Respiratory: Present decreased breath sounds Cardiac: Present Reg Rate and Rhythm GI: Present soft and hernia; Absent distention or tenderness Extremities: Present edema (LLE) Skin: Present intact Neuro: Present alert, awake and oriented x 3 Assessment and Plan *Assessment and plan (1) Sepsis: Status: Acute Category: Medical Code(s): A41.9 - Sepsis, unspecified organism (2) Pneumonia: Status: Acute Category: Medical Code(s): J18.9 - Pneumonia, unspecified organism (3) Acute hypercapnic respiratory failure: Status: Acute Category: Medical Code(s): J96.02 - Acute respiratory failure with hypercapnia (4) Acute hypoxemic respiratory failure: Status: Acute Category: Medical Code(s): J96.01 - Acute respiratory failure with hypoxia (5) Ankle pain: Status: Acute Category: Medical Code(s): M25.579 - Pain in unspecified ankle and joints of unspecified foot (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 Category: Medical Code(s): M21.962 - Unspecified acquired deformity of left lower leg (7) Left ankle instability: Status: Acute Category: Medical Code(s): M25.372 - Other instability, left ankle (8) General weakness: Status: Acute Category: Medical Code(s): R53.1 - Weakness (9) Hypertension: Status: Acute Category: Medical Code(s): I10 - Essential (primary) hypertension (10) Neuropathy: Status: Acute Category: Medical Code(s): G62.9 - Polyneuropathy, unspecified (11) Depression: Status: Acute Category: Medical Code(s): F32.A - Depression, unspecified (12) GERD (gastroesophageal reflux disease): Status: Acute Category: Medical Code(s): K21.9 - Gastro-esophageal reflux disease without esophagitis (13) Hyperlipidemia: Status: Acute Category: Medical Code(s): E78.5 - Hyperlipidemia, unspecified Plan Plan to give a dose of Lasix today, attempt to wean off of Vapotherm. Replace potassium.
[2024-07-11] MEDS: FUROSEMIDE 40MG/4ML VIAL 40 MG IV ×2 (11:08→18:02)
[2024-07-11] MEDS: POTASSIUM CHLORIDE 20MEQ TAB 20 MEQ PO ×2 (11:09→20:09)
--- NOTE | 2024-07-11 17:41 | PC.NURSE ---
Pt is sitting up in bed. Has been watching jhonny movies on TV. Pt has been less emotional today. Pt states, I can't wait to get this off , pointing to cannula of Vapotherm. She is currently on 20L 40%. Pt has been given 40 mg of Lasix this AM. MD Adamson ordered an additional 40 mg this evening for a total of 80mg of Lasix IV. Pt has diuresed well. 2100 ml. No BM this shift. Pt has c/o any discomfort. Call light within reach.
[2024-07-11] MEDS: PRAVASTATIN 40MG TAB 40 MG PO (20:10)
[2024-07-11] MEDS: PANTOPRAZOLE 40MG TABLET 40 MG PO (20:10)
[2024-07-12] VITALS (16 sets, daily range): BP systolic 106–182; BP diastolic 67–83; PULSE 67–100; RESP 12–24; TEMP 36.8–37.2; O2SAT 89–98; BMI 35.0
[2024-07-12] MEDS: METHYLPREDNISOLONE SOD SUCC 125MG VIAL 125 MG IV ×3 (02:27→16:52)
[2024-07-12] MEDS: IPRATROPIUM/ALBUTEROL 3 ML NEB IH ×4 (05:23→23:37)
[2024-07-12 07:04] LABS: Basophils % 0.4 % (0.1-2.0); Eosinophils % 0.2 % (0.1-12.0); Hemoglobin 11.2 g/dL (12.2-16.2); Lymphocytes # 0.4 K/mm3 (0.7-4.5); Lymphocytes % 4.7 % (10-50); Mean Corpuscular HGB Conc 31.1 g/dL (31.8-35.4); Mean Corpuscular Volume 77.1 fl (81-99); Mean Platelet Volume 8.2 fl (7.4-10.4); Monocytes # 0.5 K/mm3 (0.1-1.0); Monocytes % 6.3 % (1.7-9.3); Neutrophils # 6.8 K/mm3 (1.8-7.8); Neutrophils % 88.4 % (37.0-80.0); Platelet Count 184 K/mm3 (142-424); Red Blood Count 4.67 M/mm3 (4.20-5.40); Red Cell Distribution Width 18.7 % (11.5-17.5); White Blood Count 7.7 K/mm3 (4.8-10.8)
[2024-07-12 07:07] LABS: MANUAL DIFFERENTIAL MANUAL DIFFERENTIAL (MANUAL DIFF)
[2024-07-12 07:08] LABS: Chloride 85 mmol/L (98-107)
[2024-07-12 07:09] LABS: Sodium 139 mmol/L (136-145)
[2024-07-12 07:12] LABS: Blood Urea Nitrogen 36 mg/dl (7-17); Calcium 8.2 mg/dl (8.4-10.2); Creatinine Clearance Estimated 64 mL/min (50-200); Estimated Glomerular Filt Rate 60 ml/min (>60); GFR (African American) 72 ML/MIN (>60); Glucose 347 mg/dl (74-100)
[2024-07-12 07:29] LABS: Carbon Dioxide 42 mmol/L (22.0-30.0)
[2024-07-12 07:35] LABS: Lymphocytes % 7 % (10-50); Monocytes % 3 % (2-9); Neutrophils % 90 % (42-76); Total Cells Counted 100
[2024-07-12 07:36] LABS: Platelet Estimate Normal; RBC Morphology Normal
[2024-07-12] MEDS: OLOPATADINE 0.1% OP ×2 (08:07→20:32)
[2024-07-12] MEDS: AZITHROMYCIN 500 MG in 0.9 % SODIUM CHLORIDE 250 ML 250 MG IV (08:07)
[2024-07-12] MEDS: ENOXAPARIN 40MG/0.4ML SYRINGE 40 MG SUBCUT (08:07)
[2024-07-12] MEDS: CITALOPRAM 40MG TABLET 40 MG PO (08:07)
[2024-07-12] MEDS: AMLODIPINE 5MG TABLET 5 MG PO (08:08)
[2024-07-12] MEDS: FAMOTIDINE 20MG/2ML VIAL 20 MG IV (08:08)
[2024-07-12] MEDS: SODIUM CHLORIDE 0.9% 10ML VIAL 8 ML IV (08:08)
[2024-07-12] MEDS: POTASSIUM CHLORIDE 20MEQ TAB 20 MEQ PO ×2 (08:09→20:30)
[2024-07-12] MEDS: FUROSEMIDE 40MG/4ML VIAL 40 MG IV (08:09)
[2024-07-12] MEDS: PREGABALIN 25MG CAPSULE 75 MG PO ×2 (08:16→20:30)
--- NOTE | 2024-07-12 08:34 | P.PN_ITS ---
Subjective *Date: 07/12/24 *Time: 08:34 Interval history: Patient with no new complaints today, still requiring Vapotherm. Medical Exam Vital signs and Labs for Last 24 Hours: Vital Signs Temp Pulse Pulse Pulse Resp BP Pulse Ox 07/12/24 08:00 98.9 F 96 H 22 166/80 H 91 L 07/12/24 06:54 07/12/24 06:00 89 21 182/82 H 91 L 07/12/24 05:24 78 07/12/24 05:24 75 07/12/24 05:24 92 L 07/12/24 05:00 07/12/24 04:00 98.9 F 07/12/24 04:00 07/12/24 04:00 67 20 166/70 H 92 L 07/12/24 04:00 80 07/12/24 03:00 07/12/24 02:00 72 14 168/77 H 92 L 07/12/24 01:00 07/12/24 00:00 100 H 07/12/24 00:00 98.7 F 07/11/24 23:31 77 07/11/24 23:30 75 07/11/24 23:00 07/11/24 22:00 102 H 21 153/80 H 93 L 07/11/24 21:00 07/11/24 20:00 70 07/11/24 20:00 83 20 172/80 H 91 L 07/11/24 20:00 93 L 07/11/24 20:00 98.8 F 07/11/24 18:47 07/11/24 18:31 07/11/24 18:30 79 07/11/24 18:30 74 07/11/24 18:00 78 22 150/68 H 91 L 07/11/24 17:00 07/11/24 16:00 81 20 162/77 H 90 L 07/11/24 16:00 90 07/11/24 16:00 07/11/24 15:41 98.4 F 07/11/24 14:50 07/11/24 14:00 83 20 160/63 H 90 L 07/11/24 13:00 07/11/24 12:59 79 07/11/24 12:59 83 07/11/24 12:59 96 07/11/24 12:00 70 07/11/24 12:00 82 19 163/79 H 90 L 07/11/24 11:00 07/11/24 10:00 54 L 20 188/67 H 96 07/11/24 08:59 O2 Del Method O2 Flow Rate FiO2 07/12/24 08:00 Vapotherm 07/12/24 06:54 Vapotherm 07/12/24 06:00 Vapotherm 07/12/24 05:24 07/12/24 05:24 07/12/24 05:24 Vapotherm 20 40 07/12/24 05:00 Vapotherm 07/12/24 04:00 07/12/24 04:00 Vapotherm 20 07/12/24 04:00 Vapotherm 20 40 07/12/24 04:00 07/12/24 03:00 Vapotherm 07/12/24 02:00 Vapotherm 20 40 07/12/24 01:00 Vapotherm 07/12/24 00:00 07/12/24 00:00 07/11/24 23:31 07/11/24 23:30 07/11/24 23:00 Vapotherm 07/11/24 22:00 Vapotherm 20 40 07/11/24 21:00 Vapotherm 20 07/11/24 20:00 07/11/24 20:00 Vapotherm 20 40 07/11/24 20:00 Vapotherm 20 40 07/11/24 20:00 07/11/24 18:47 Vapotherm 20 07/11/24 18:31 Vapotherm 20 35 07/11/24 18:30 07/11/24 18:30 07/11/24 18:00 20 40 07/11/24 17:00 Vapotherm 20 07/11/24 16:00 Vapotherm 20 40 07/11/24 16:00 07/11/24 16:00 Vapotherm 20 40 07/11/24 15:41 07/11/24 14:50 Vapotherm 07/11/24 14:00 Vapotherm 07/11/24 13:00 Vapotherm 07/11/24 12:59 07/11/24 12:59 07/11/24 12:59 Vapotherm 20 40 07/11/24 12:00 07/11/24 12:00 Vapotherm 07/11/24 11:00 Vapotherm 07/11/24 10:00 Vapotherm 07/11/24 08:59 Vapotherm 20 Intake and Output 07/11/24 07/12/24 07/12/24 23:59 07:59 15:59 Intake Total 370 / 1280 2600 / 2600 Output Total 300 / 4800 240 / 740 500 / 740 Balance 70 / -3520 2360 / 1860 -500 / 1860 Intake: Intake, Oral Amount 270 / 1180 2600 / 2600 Intake, Total IV Amount 100 / 100 Ceftriaxone 1 gm 1 gm In 0.9 % 100 / 100 Sodium Chloride 50 ml @ 100 mls /hr IV Q24H [facility] Rx#:[id number] Output: Output, Urine Amount 300 / 2400 240 / 240 Output, Urine Amount (Catheter) 500 / 500 Ramirez 500 / 500 Other: Number of Unmeasured Voids 0 Weight 218 lb 1.653 oz Patient Weight 07/12/24 23:59 Weight 218 lb 1.653 oz Laboratory Results - last 24 hr 07/12/24 06:15: WBC 7.7, RBC 4.67, Hgb 11.2 L, Hct 36.0 L, MCV 77.1 L, MCH 24.0 L, MCHC 31.1 L, RDW 18.7 H, Plt Count 184, MPV 8.2, Neut % (Auto) 88.4 H, Lymph % (Auto) 4.7 L, Bonner % (Auto) 6.3, Eos % (Auto) 0.2, Baso % (Auto) 0.4, Neut # (Auto) 6.8, Lymph # (Auto) 0.4 L, Bonner # (Auto) 0.5, Eos # (Auto) 0.0, Baso # (Auto) 0.0, Total Counted 100, Neutrophils % (Manual) 90 H, Lymphocytes % (Manual) 7 L, Monocytes % (Manual) 3, Platelet Estimate Normal, RBC Morphology Normal, Sodium 139, Potassium 3.0 L, Chloride 85 L, Carbon Dioxide 42 H*, Anion Gap 15.0, BUN 36 H, Creatinine 0.90, Estimated Creat Clear 64, Estimated GFR 60, Est GFR ( Amer) 72, Glucose 347 H, Calcium 8.2 L I & O for Labs for Last 24 Hours: Intake & Output 07/09/24 07/10/24 07/11/24 07/12/24 23:59 23:59 23:59 23:59 Intake Total 1200 / 1200 1740 / 1980 1280 / 1280 2600 / 2600 Output Total 1100 / 1100 1825 / 3125 4800 / 4800 740 / 740 Balance 100 / 100 -85 / -1145 -3520 / -3520 1860 / 1860 Weight 219 lb 218 lb 1.653 oz 218 lb 1.653 oz 218 lb 1.653 oz Constitutional: Present no acute distress Respiratory: Present decreased breath sounds Cardiac: Present Reg Rate and Rhythm GI: Present soft and hernia; Absent distention or tenderness Extremities: Present edema (LLE) Skin: Present intact Neuro: Present alert, awake and oriented x 3 Assessment and Plan *Assessment and plan (1) Sepsis: Status: Acute Category: Medical Code(s): A41.9 - Sepsis, unspecified organism (2) Pneumonia: Status: Acute Category: Medical Code(s): J18.9 - Pneumonia, unspecified organism (3) Acute hypercapnic respiratory failure: Status: Acute Category: Medical Code(s): J96.02 - Acute respiratory failure with hypercapnia (4) Acute hypoxemic respiratory failure: Status: Acute Category: Medical Code(s): J96.01 - Acute respiratory failure with hypoxia (5) Ankle pain: Status: Acute Category: Medical Code(s): M25.579 - Pain in unspecified ankle and joints of unspecified foot (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 Category: Medical Code(s): M21.962 - Unspecified acquired deformity of left lower leg (7) Left ankle instability: Status: Acute Category: Medical Code(s): M25.372 - Other instability, left ankle (8) General weakness: Status: Acute Category: Medical Code(s): R53.1 - Weakness (9) Hypertension: Status: Acute Category: Medical Code(s): I10 - Essential (primary) hypertension (10) Neuropathy: Status: Acute Category: Medical Code(s): G62.9 - Polyneuropathy, unspecified (11) Depression: Status: Acute Category: Medical Code(s): F32.A - Depression, unspecified (12) GERD (gastroesophageal reflux disease): Status: Acute Category: Medical Code(s): K21.9 - Gastro-esophageal reflux disease without esophagitis (13) Hyperlipidemia: Status: Acute Category: Medical Code(s): E78.5 - Hyperlipidemia, unspecified (14) Hypokalemia: Status: Acute Category: Medical Code(s): E87.6 - Hypokalemia (15) DM type 2 (diabetes mellitus, type 2): Status: Acute Category: Medical Code(s): E11.9 - Type 2 diabetes mellitus without complications Plan Continue current treatment, replace potassium, start sliding scale insulin.
[2024-07-12] MEDS: IRBESARTAN 75MG TABLET 75 MG PO (10:19)
[2024-07-12] MEDS: KCl 20mEq/100ml 100 ML 50 MEQ IV (10:19)
[2024-07-12] MEDS: CEFTRIAXONE 1 GM 1 GM in 0.9 % SODIUM CHLORIDE 50 ML IV (10:19)
--- NOTE | 2024-07-12 10:30 | EXP.PHA.PN ---
Subjective *Date: 07/12/24 *Time: 10:30 Medical Exam Vital signs and Labs for Last 24 Hours: Vital Signs Temp Pulse Pulse Pulse Resp BP Pulse Ox 07/12/24 08:51 07/12/24 08:00 07/12/24 08:00 98.9 F 96 H 22 166/80 H 91 L 07/12/24 06:54 07/12/24 06:00 89 21 182/82 H 91 L 07/12/24 05:24 78 07/12/24 05:24 75 07/12/24 05:24 92 L 07/12/24 05:00 07/12/24 04:00 98.9 F 07/12/24 04:00 07/12/24 04:00 67 20 166/70 H 92 L 07/12/24 04:00 80 07/12/24 03:00 07/12/24 02:00 72 14 168/77 H 92 L 07/12/24 01:00 07/12/24 00:00 100 H 07/12/24 00:00 98.7 F 07/11/24 23:31 77 07/11/24 23:30 75 07/11/24 23:00 07/11/24 22:00 102 H 21 153/80 H 93 L 07/11/24 21:00 07/11/24 20:00 70 07/11/24 20:00 83 20 172/80 H 91 L 07/11/24 20:00 93 L 07/11/24 20:00 98.8 F 07/11/24 18:47 07/11/24 18:31 07/11/24 18:30 79 07/11/24 18:30 74 07/11/24 18:00 78 22 150/68 H 91 L 07/11/24 17:00 07/11/24 16:00 81 20 162/77 H 90 L 07/11/24 16:00 90 07/11/24 16:00 07/11/24 15:41 98.4 F 07/11/24 14:50 07/11/24 14:00 83 20 160/63 H 90 L 07/11/24 13:00 07/11/24 12:59 79 07/11/24 12:59 83 07/11/24 12:59 96 07/11/24 12:00 70 07/11/24 12:00 82 19 163/79 H 90 L 07/11/24 11:00 O2 Del Method O2 Flow Rate FiO2 07/12/24 08:51 Vapotherm 07/12/24 08:00 Vapotherm 20 40 07/12/24 08:00 Vapotherm 07/12/24 06:54 Vapotherm 07/12/24 06:00 Vapotherm 07/12/24 05:24 07/12/24 05:24 07/12/24 05:24 Vapotherm 20 40 07/12/24 05:00 Vapotherm 07/12/24 04:00 07/12/24 04:00 Vapotherm 20 07/12/24 04:00 Vapotherm 20 40 07/12/24 04:00 07/12/24 03:00 Vapotherm 07/12/24 02:00 Vapotherm 20 40 07/12/24 01:00 Vapotherm 07/12/24 00:00 07/12/24 00:00 07/11/24 23:31 07/11/24 23:30 07/11/24 23:00 Vapotherm 07/11/24 22:00 Vapotherm 20 40 07/11/24 21:00 Vapotherm 20 07/11/24 20:00 07/11/24 20:00 Vapotherm 20 40 07/11/24 20:00 Vapotherm 20 40 07/11/24 20:00 07/11/24 18:47 Vapotherm 20 07/11/24 18:31 Vapotherm 20 35 07/11/24 18:30 07/11/24 18:30 07/11/24 18:00 20 40 07/11/24 17:00 Vapotherm 20 07/11/24 16:00 Vapotherm 20 40 07/11/24 16:00 07/11/24 16:00 Vapotherm 20 40 07/11/24 15:41 07/11/24 14:50 Vapotherm 07/11/24 14:00 Vapotherm 07/11/24 13:00 Vapotherm 07/11/24 12:59 07/11/24 12:59 07/11/24 12:59 Vapotherm 20 40 07/11/24 12:00 07/11/24 12:00 Vapotherm 07/11/24 11:00 Vapotherm Intake and Output 07/11/24 07/12/24 07/12/24 23:59 07:59 15:59 Intake Total 370 / 1280 2600 / 2600 Output Total 300 / 4800 240 / 740 500 / 740 Balance 70 / -3520 2360 / 1860 -500 / 1860 Intake: Intake, Oral Amount 270 / 1180 2600 / 2600 Intake, Total IV Amount 100 / 100 Ceftriaxone 1 gm 1 gm In 0.9 % 100 / 100 Sodium Chloride 50 ml @ 100 mls /hr IV Q24H [facility] Rx#:[id number] Output: Output, Urine Amount 300 / 2400 240 / 240 Output, Urine Amount (Catheter) 500 / 500 Ramirez 500 / 500 Other: Number of Unmeasured Voids 0 0 Weight 98.93 kg Patient Weight 07/12/24 23:59 Weight 98.93 kg Laboratory Results - last 24 hr 07/12/24 06:15: WBC 7.7, RBC 4.67, Hgb 11.2 L, Hct 36.0 L, MCV 77.1 L, MCH 24.0 L, MCHC 31.1 L, RDW 18.7 H, Plt Count 184, MPV 8.2, Neut % (Auto) 88.4 H, Lymph % (Auto) 4.7 L, Lanier % (Auto) 6.3, Eos % (Auto) 0.2, Baso % (Auto) 0.4, Neut # (Auto) 6.8, Lymph # (Auto) 0.4 L, Lanier # (Auto) 0.5, Eos # (Auto) 0.0, Baso # (Auto) 0.0, Total Counted 100, Neutrophils % (Manual) 90 H, Lymphocytes % (Manual) 7 L, Monocytes % (Manual) 3, Platelet Estimate Normal, RBC Morphology Normal, Sodium 139, Potassium 3.0 L, Chloride 85 L, Carbon Dioxide 42 H*, Anion Gap 15.0, BUN 36 H, Creatinine 0.90, Estimated Creat Clear 64, Estimated GFR 60, Est GFR ( Amer) 72, Glucose 347 H, Calcium 8.2 L I & O for Labs for Last 24 Hours: Intake & Output 07/09/24 07/10/24 07/11/24 07/12/24 23:59 23:59 23:59 23:59 Intake Total 1200 / 1200 1740 / 1980 1280 / 1280 2600 / 2600 Output Total 1100 / 1100 1825 / 3125 4800 / 4800 740 / 740 Balance 100 / 100 -85 / -1145 -3520 / -3520 1860 / 1860 Weight 99.337 kg 98.93 kg 98.93 kg 98.93 kg Microbiology Reports for the Last 24 Hours: Microbiology 07/08/24 09:46 Blood Blood Culture - Preliminary NO GROWTH AFTER 4 DAYS 07/08/24 09:40 Blood Blood Culture - Preliminary NO GROWTH AFTER 4 DAYS The patient's infection will respond to the chosen ABx?: Yes Is the patient receiving the right drug, dose, and route?: Yes Could a more targeted ABx be ordered?: No (PATIENT AFEBRILE, WBC WNL NOW, CONTINUE CURRENT.)
[2024-07-12] MEDS: humaLOG 100 UNITS/ML 10ML VIAL (SSI) SUBCUT ×3 (10:48→20:40)
[2024-07-12 11:18] LABS: POC Glucose,Bedside 416 (70-110)
[2024-07-12] MEDS: POTASSIUM CHLORIDE 20 MEQ, LIDOCAINE HCL/PF 3 ML in 0.9 % SODIUM CHLORIDE 100 ML 56.5 MEQ IV ×2 (13:49→16:52)
[2024-07-12 17:14] LABS: POC Glucose,Bedside 290 (70-110)
[2024-07-12] MEDS: PRAVASTATIN 40MG TAB 40 MG PO (20:30)
[2024-07-12] MEDS: PANTOPRAZOLE 40MG TABLET 40 MG PO (20:30)
[2024-07-12 20:52] LABS: POC Glucose,Bedside 375 (70-110)
[2024-07-13] VITALS (21 sets, daily range): BP systolic 122–160; BP diastolic 40–88; PULSE 60–90; RESP 18–24; TEMP 36.8–37.3; O2SAT 89–100; BMI 33.4
[2024-07-13] MEDS: METHYLPREDNISOLONE SOD SUCC 125MG VIAL 125 MG IV ×3 (01:22→16:31)
[2024-07-13] MEDS: humaLOG 100 UNITS/ML 10ML VIAL (SSI) SUBCUT ×4 (05:35→20:01)
[2024-07-13 05:37] LABS: POC Glucose,Bedside 263 (70-110)
--- NOTE | 2024-07-13 06:06 | PC.NURSE ---
Patient remains A/O able to voice needs to staff. Rested well throughout night with no new c/o. Staff provided assist as needed, turned and repositioned every 2 hours and PRN. Reviewed POC and d/c goals patient v/u no new c/o, call light in reach
[2024-07-13] MEDS: IPRATROPIUM/ALBUTEROL 3 ML NEB IH ×3 (06:23→18:24)
--- NOTE | 2024-07-13 07:30 | XR_ITS ---
PROCEDURE INFORMATION: Exam: XR Chest Exam date and time: 07/13/2024 7:07 AM Age: 83 years old Clinical indication: Dyspnea; Additional info: Cap follow up TECHNIQUE: Imaging protocol: Radiologic exam of the chest. Views: 1 view. COMPARISON: CR XR CHEST PORTABLE 07/09/2024 8:36 AM FINDINGS: Lungs: Basilar infiltrates similar to prior comparison likely indicative of atelectasis or scarring. No new pulmonary infiltrate. Pleural spaces: Unremarkable. No pleural effusion. No pneumothorax. Heart/Mediastinum: Unremarkable. No cardiomegaly. Vasculature: Atherosclerotic disease of the aortic arch. 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 Bones/joints: Unremarkable. IMPRESSION: Stable examination from 07/09/2024.
--- NOTE | 2024-07-13 08:09 | EXP.ACUTE.PN ---
Subjective *Date: 07/13/24 *Time: 09:05 Interval history: Patient remains on Vapotherm at 40%. Nursing continues to try to wean. Patient has been unable to get out of bed. Took 4 people to get her up last week. Patient states her left ankle turns and she cannot bear weight on it at all. Patient states she has been eating well. She has no difficulty with sleeping. She states she has diuresed well with the Lasix. Patient feels she is breathing better and would like to be on regular oxygen. She has been wearing her CPAP at night. She denies chest pain. Bowels have not moved in 3 to 4 days. She continues with Ramirez catheter. Blood pressure is elevated. Medical Exam Vital signs and Labs for Last 24 Hours: Vital Signs Temp Pulse Pulse Resp BP Pulse Ox O2 Del Method 07/13/24 08:04 89 L Vapotherm 07/13/24 08:00 80 20 140/69 90 L Vapotherm 07/13/24 08:00 98.2 F 78 24 160/40 H 89 L Vapotherm 07/13/24 06:58 Vapotherm 07/13/24 06:23 69 07/13/24 06:23 65 07/13/24 06:23 93 L Vapotherm 07/13/24 06:00 73 22 159/71 H Vapotherm 07/13/24 05:00 Vapotherm 07/13/24 04:00 70 07/13/24 04:00 Vapotherm 07/13/24 03:22 98.7 F 07/13/24 03:00 Vapotherm 07/13/24 02:00 67 24 152/70 H Vapotherm 07/13/24 01:00 CPAP 07/13/24 00:07 83 07/13/24 00:07 81 07/13/24 00:00 99.2 F 07/13/24 00:00 82 18 157/88 H CPAP 07/12/24 23:00 Vapotherm 07/12/24 22:00 72 12 106/67 L 98 Nasal Cannula 07/12/24 21:00 Vapotherm 07/12/24 20:00 80 07/12/24 19:51 98.2 F 07/12/24 19:45 Vapotherm 07/12/24 19:00 Vapotherm 07/12/24 18:27 Vapotherm 07/12/24 18:26 68 07/12/24 18:26 84 07/12/24 18:00 91 H 19 168/82 H 90 L Vapotherm 07/12/24 17:00 Vapotherm 07/12/24 16:00 75 19 162/83 H 89 L Vapotherm 07/12/24 16:00 80 07/12/24 16:00 Vapotherm 07/12/24 16:00 98.9 F 07/12/24 15:00 Vapotherm 07/12/24 14:00 91 H 24 158/78 H 91 L Vapotherm 07/12/24 13:00 Vapotherm 07/12/24 12:13 85 07/12/24 12:13 69 07/12/24 12:00 79 22 154/67 H 89 L Vapotherm 07/12/24 12:00 80 07/12/24 12:00 98.4 F 07/12/24 10:51 Vapotherm 07/12/24 10:00 92 H 22 146/74 H 90 L Vapotherm 07/12/24 08:51 Vapotherm O2 Flow Rate FiO2 07/13/24 08:04 20 35 07/13/24 08:00 20 35 07/13/24 08:00 20 35 07/13/24 06:58 07/13/24 06:23 07/13/24 06:23 07/13/24 06:23 20 40 07/13/24 06:00 07/13/24 05:00 07/13/24 04:00 07/13/24 04:00 07/13/24 03:22 07/13/24 03:00 07/13/24 02:00 07/13/24 01:00 07/13/24 00:07 07/13/24 00:07 07/13/24 00:00 07/13/24 00:00 07/12/24 23:00 07/12/24 22:00 2 07/12/24 21:00 07/12/24 20:00 07/12/24 19:51 07/12/24 19:45 07/12/24 19:00 20 07/12/24 18:27 20 40 07/12/24 18:26 07/12/24 18:26 07/12/24 18:00 07/12/24 17:00 07/12/24 16:00 07/12/24 16:00 07/12/24 16:00 20 40 07/12/24 16:00 07/12/24 15:00 07/12/24 14:00 07/12/24 13:00 20 07/12/24 12:13 07/12/24 12:13 07/12/24 12:00 07/12/24 12:00 07/12/24 12:00 07/12/24 10:51 20 07/12/24 10:00 07/12/24 08:51 Intake and Output 07/12/24 07/13/24 07/13/24 19:59 03:59 11:59 Intake Total 750 / 750 Output Total 600 / 600 600 / 1200 Balance 150 / 150 -600 / -450 Intake: Intake, Oral Amount 750 / 750 Output: Output, Urine Amount 300 / 300 0 / 300 Output, Urine Amount (Catheter) 300 / 300 600 / 900 Ramirez 300 / 300 600 / 900 Other: Number of Unmeasured Voids 0 0 0 Weight 208 lb 3.2 oz Patient Weight 07/13/24 11:59 Weight 208 lb 3.2 oz Laboratory Results - last 24 hr 07/12/24 10:44: POC Glucose 416 H* 07/12/24 16:58: POC Glucose 290 H 07/12/24 20:27: POC Glucose 375 H* 07/13/24 05:29: POC Glucose 263 H I & O for Labs for Last 24 Hours: Intake & Output 07/10/24 07/11/24 07/12/24 07/13/24 11:59 11:59 11:59 11:59 Intake Total 1650 / 1650 1630 / 1630 3480 / 3480 750 / 750 Output Total 1200 / 1200 3825 / 3825 3840 / 3840 1200 / 1200 Balance 450 / 450 -2195 / -2195 -360 / -360 -450 / -450 Weight 218 lb 1.6 oz 218 lb 1.653 oz 218 lb 1.653 oz 208 lb 3.2 oz Microbiology Reports for the Last 24 Hours: Microbiology 07/08/24 09:46 Blood Blood Culture - Preliminary NO GROWTH AFTER 4 DAYS 07/08/24 09:40 Blood Blood Culture - Preliminary NO GROWTH AFTER 4 DAYS Constitutional: Present no acute distress Comment:: Sitting up in the bed and is eating her breakfast. She appears comfortable. Breathing is easy. Respiratory: Present CTA bilaterally (ANP posteriorly) Cardiac: Absent Regular Rate (Monitor showing atrial fibrillation with varying ventricular response anywhere from 70 up to 130) GI: Present soft, normal bowel sounds and other (Obese); Absent tenderness (female): Present other (Ramirez catheter in place) Extremities: Present edema (Minimal left lower leg edema. Right lower extremity without edema.) Skin: Present wounds (In order left foot wound appears to be healing) Neuro: Present alert, awake and oriented x 3 Assessment and Plan *Assessment and plan (1) Sepsis: Status: Acute Category: Medical Code(s): A41.9 - Sepsis, unspecified organism (2) Pneumonia: Status: Acute Category: Medical Code(s): J18.9 - Pneumonia, unspecified organism (3) Acute hypercapnic respiratory failure: Status: Acute Category: Medical Code(s): J96.02 - Acute respiratory failure with hypercapnia (4) Acute hypoxemic respiratory failure: Status: Acute Category: Medical Code(s): J96.01 - Acute respiratory failure with hypoxia (5) Ankle pain: Status: Acute Category: Medical Code(s): M25.579 - Pain in unspecified ankle and joints of unspecified foot (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 Category: Medical Code(s): M21.962 - Unspecified acquired deformity of left lower leg (7) Left ankle instability: Status: Acute Category: Medical Code(s): M25.372 - Other instability, left ankle (8) General weakness: Status: Acute Category: Medical Code(s): R53.1 - Weakness (9) Hypertension: Status: Acute Category: Medical Code(s): I10 - Essential (primary) hypertension (10) Neuropathy: Status: Acute Category: Medical Code(s): G62.9 - Polyneuropathy, unspecified (11) Depression: Status: Acute Category: Medical Code(s): F32.A - Depression, unspecified (12) GERD (gastroesophageal reflux disease): Status: Acute Category: Medical Code(s): K21.9 - Gastro-esophageal reflux disease without esophagitis (13) Hyperlipidemia: Status: Acute Category: Medical Code(s): E78.5 - Hyperlipidemia, unspecified (14) Hypokalemia: Status: Acute Category: Medical Code(s): E87.6 - Hypokalemia (15) DM type 2 (diabetes mellitus, type 2): Status: Acute Category: Medical Code(s): E11.9 - Type 2 diabetes mellitus without complications Plan Blood sugars are elevated and she remains on sliding scale insulin. She also continues with Solu-Medrol 125 every 8 hours will consider weaning. Will increase irbesartan to 150 mg daily. Will consult PT and OT. Patient needs to be out of bed daily. Nursing will continue to wean from Vapotherm. Dr. Adamson entry - Saw patient, agree with above note. Plan to consult pulmonology about continued Vapotherm need, remove Ramirez today. Last 3 CXR results are still pending.
[2024-07-13 08:49] LABS: Albumin Level 3.4 g/dl (3.5-5.0); Chloride 89 mmol/L (98-107); Potassium 3.5 mmoL/L (3.5-5.1); Sodium 138 mmol/L (136-145)
[2024-07-13 08:52] LABS: Alanine Aminotransferase 52 U/L (12-78); Albumin/Globulin Ratio 1.1 (1.1-1.8); Alkaline Phosphatase 74 U/L (38-126); Aspartate Amino Transferase 46 U/L (14-36); Bilirubin,Total 0.6 mg/dl (0.2-1.3); Blood Urea Nitrogen 36 mg/dl (7-17); Creatinine Clearance Estimated 61 mL/min (50-200); Estimated Glomerular Filt Rate 60 ml/min (>60); GFR (African American) 72 ML/MIN (>60); Total Protein,Serum 6.4 g/dl (6.3-8.2)
[2024-07-13 08:53] LABS: Calcium 7.7 mg/dl (8.4-10.2); Glucose 325 mg/dl (74-100)
[2024-07-13 08:59] LABS: Anion Gap 15.5 mEq/L (5-15); Carbon Dioxide 37 mmol/L (22.0-30.0)
[2024-07-13] MEDS: SODIUM CHLORIDE 3% 15ML NEB 3 ML IH (09:14)
--- NOTE | 2024-07-13 09:15 | HMH.PTEV ---
Physical Therapy Evaluation Rehab PT IP Evaluation Start: 07/13/24 08:18 Freq: ONCE Status: Active Protocol: Document 07/13/24 09:09 DEUCE (Rec: 07/13/24 09:15 DEUCE [id number]) Subjective/History History History Per H&P: This is an ill- appearing 83-year-old female presenting with shortness of patient has hyper, hyperlipidemia, hypoxemia likely secondary to restrictive lung disease and obesity, CHF, COPD, diabetes presenting with shortness of breath. Patient states that she has been feeling short of breath since yesterday, 07/07 in the PM... Subjective Subjective Pt reports she was at [facility] prior to admission. Pt reports she was not ambulating d/t L ankle pain and weakness . Pt used a RW for transfers to/from w/c. I fall a lot New diagnosis of cancer in past 12 No months? Rehab PT IP Eval Objective Appearance Patient Behavior Appropriate,Cooperative Patient Orientation Person,Place,Situation Difficulty following instructions none Speech Pattern Clear Ambulation Patient Able to Ambulate No Balance Ability to Arise Able, uses arms to help Sitting Balance Steady, safe Standing Balance Unsteady Transfers Bed Transfer Ability Minimal x 1 (25% assist) Sit to Stand Bed Transfer Ability Minimal x 2 (25% assist) Sit to Stand Chair Transfer Ability Minimal x 2 (25% assist) Rehab PT IP prob,goals,plan Problems Date of Evaluation: 07/13/24 PT IP Problems Bed Mobility,Transfers,Gait, Balance,Safety Rehab Potential Rehab Potential Good Plan PT Intervention Plan Bed Mobility,Transfers,Gait, Balance,Safety,Therapeutic Exercise Other Intervention Plan 1-2 times PT Plan Frequency Daily Duration LOS Discharge Goals Bed Transfer Ability Contact Guard/Hand Hold Sit to Stand Chair Transfer Ability Minimal x 1 (25% assist) Ambulation Assistive Device Rolling Walker Ambulation Distance (feet) 10 Discharge Plan PT Discharge Plan Initial PT evaluation performed. Pt presents below baseline at this time in bed mobility and transfers. Pt would benefit from skilled PT in rehab placement to address her deficits and return to PLOF. Pt would benefit from skilled acute care PT while at [facility] to prevent functional decline and improve mobility. Eval Complexity Eval Charge Codes 80896 - High Complexity PHYSICIAN CERTIFICATION: I certify the specified therapy services for Kirstie Stephie New are required, authorized, and reviewed every 30 days.
[2024-07-13] MEDS: IRBESARTAN 150MG TAB 150 MG PO (09:33)
[2024-07-13] MEDS: PREGABALIN 25MG CAPSULE 75 MG PO ×2 (09:33→20:01)
[2024-07-13] MEDS: POLYETHYLENE GLYCOL 3350 17 GM PACKET PO ×2 (09:33)
[2024-07-13] MEDS: POTASSIUM CHLORIDE 20MEQ TAB 20 MEQ PO ×2 (09:33→20:01)
[2024-07-13] MEDS: FAMOTIDINE 20MG TABLET 20 MG PO (09:34)
[2024-07-13] MEDS: CITALOPRAM 40MG TABLET 40 MG PO (09:34)
[2024-07-13] MEDS: FUROSEMIDE 40MG/4ML VIAL 40 MG IV (09:35)
[2024-07-13] MEDS: AMLODIPINE 5MG TABLET 5 MG PO (09:35)
[2024-07-13] MEDS: OLOPATADINE 0.1% OP ×2 (09:35→20:01)
[2024-07-13] MEDS: ENOXAPARIN 40MG/0.4ML SYRINGE 40 MG SUBCUT (09:35)
[2024-07-13] MEDS: AZITHROMYCIN 250MG TABLET 500 MG PO (09:35)
[2024-07-13] MEDS: CEFTRIAXONE 1 GM 1 GM in 0.9 % SODIUM CHLORIDE 50 ML IV (09:36)
--- NOTE | 2024-07-13 09:42 | P.CONS_ITS ---
History of Present Illness History of present illness: Ms. Nascimento is a 83-year-old female presented to the hospital on 07/08/2024 with progressively worsening respiratory distress. Patient admission was noted to have hypercarbic respiratory failure, elevated BNP. Patient is and has been managed for COPD and CHF exacerbation along with pneumonia. Patient has been initiate noninvasive ventilatory therapy, eventually weaned to high flow nasal cannula supplementation. She continued to remain on Vapotherm since then and pulmonary was called for further evaluation and management. She continue to use CPAP therapy at night. No significant smoking history. Admits to history of allergic rhinitis and asthma. [facility] Disclaimer: The information contained in this section may have been updated after the patient was seen, as this information can be updated by other users. Medical History (Updated 07/13/24 @ 10:58 by Federico Morris MD) Acute and chronic respiratory failure with hypoxia Lumbar radiculopathy Degenerative disc disease, lumbar Paratracheal lymphadenopathy CAP (community acquired pneumonia) RICHIE (acute kidney injury) Hypertensive urgency Elevated brain natriuretic peptide (BNP) level Hypertensive emergency CKD (chronic kidney disease) stage 3, GFR 30-59 ml/min Pneumonia Allergic rhinitis Colon polyps Hemorrhoids, internal Osteoporosis Herpes zoster Closed left ankle fracture Closed left hip fracture Lumbar spinal stenosis Lumbar compression fracture Ocular melanoma COPD (chronic obstructive pulmonary disease) Mediastinal lymphadenopathy Sleep apnea Asthma Hyperlipidemia Neuropathy Depression GERD (gastroesophageal reflux disease) Arthritis Hypertension Diabetes Surgical History History of right knee joint replacement History of left knee replacement History of left hip replacement History of left ankle joint replacement 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 History of arthroplasty of right knee History of appendectomy Family History Heart attack Social History Smoking Status: Never smoker alcohol intake: never substance use type: denies use current occupational status: other Travel in the last 8 weeks: None household members: none caffeine: Yes Review of Systems Constitutional Constitutional: Reports fatigue, Denies headache(s) and Reports weakness Eyes Eyes: Denies eye discharge, Denies dry eyes, Denies irritation and Denies itchy eyes ENT Ears, Nose, Mouth, and Throat: Denies headache(s), Denies lip swelling and Denies throat swelling *Cardiovascular Cardiovascular: Reports dyspnea and Reports dyspnea on exertion *Respiratory Respiratory: Reports change in phlegm color, Reports chest congestion, Reports cough, Reports dyspnea, Reports dyspnea on exertion, Reports excessive phlegm production, Denies hemoptysis, Denies pain on inspiration, Denies pain with cough and Reports wheezing *Gastrointestinal Gastrointestinal: Denies abdominal pain, Denies belching and Denies cramping *Musculoskeletal Musculoskeletal: Reports back pain, Reports myalgias and Reports other (No small joint swelling or Pain) *Neurologic Neurologic: Denies headache(s) and Reports weakness Psychiatric Psychiatric: Denies homicidal ideation and Denies suicidal ideation Endocrine Endocrine: Reports fatigue and Denies heat intolerance Hematologic/Lymphatic Hematologic/Lymphatic: Denies easy bleeding and Denies lymphadenopathy Allergic/Immunologic Allergic/Immunologic: Denies itchy eyes, Denies lip swelling, Denies throat swelling and Reports wheezing Pulmonology Exam Inpatient Vital signs and Labs for Last 24 Hours: Temp Pulse Resp BP Pulse Ox O2 Del Method O2 Flow Rate 98.2 F 60 18 140/69 95 Nasal Cannula 3 07/13/24 08:00 07/13/24 09:15 07/13/24 09:15 07/13/24 08:00 07/13/24 09:10 07/13/24 09:25 07/13/24 09:25 FiO2 40 07/13/24 09:00 Laboratory Results - last 24 hr 07/12/24 10:44: POC Glucose 416 H* 07/12/24 16:58: POC Glucose 290 H 07/12/24 20:27: POC Glucose 375 H* 07/13/24 05:29: POC Glucose 263 H 07/13/24 08:32: Sodium 138, Potassium 3.5, Chloride 89 L, Carbon Dioxide 37 H, A nion Gap 15.5 H, BUN 36 H, Creatinine 0.90, Glucose 325 H, Calcium 7.7 L, Total Bilirubin 0.6, AST 46 H, ALT 52, Alkaline Phosphatase 74, Total Protein 6.4, A lbumin 3.4 L I & O for Labs for Last 24 Hours: Intake & Output 07/10/24 07/11/24 07/12/24 07/13/24 23:59 23:59 23:59 23:59 Intake Total 1740 / 1980 1280 / 1280 3590 / 3590 270 / 270 Output Total 1825 / 3125 4800 / 4800 2040 / 2040 600 / 600 Balance -85 / -1145 -3520 / -3520 1550 / 1550 -330 / -330 Weight 218 lb 1.653 oz 218 lb 1.653 oz 218 lb 1.653 oz 208 lb 3.2 oz Microbiology Reports for the Last 24 Hours: Microbiology 07/08/24 09:46 Blood Blood Culture - Preliminary NO GROWTH AFTER 4 DAYS 07/08/24 09:40 Blood Blood Culture - Preliminary NO GROWTH AFTER 4 DAYS Constitutional: Present moderate distress Head: Present normocephalic and atraumatic ENT: Present normal exam, normal oropharynx and mucous membranes moist Neck: Present normal inspection and full ROM Respiratory: Present prolonged expiratory phase, respiratory distress, diminished air movement, able to speak in complete sentences and symmetric chest movement; Absent rhonchi, wheezes or crackles Cardiac: Present S1/S2, Tachycardia and radial pulses present GI: Present soft and distention; Absent tenderness or guarding Rectal (female): Present deferred (female): Present deferred Skin: Present intact; Absent cyanosis or jaundice Neuro: Present alert, awake and oriented x 3 Extremities: Present normal inspection; Absent clubbing or cyanosis Psychiatric: Present normal affect and cooperative Meds Home Medications and Allergies Home Medications ?Medication ?Instructions ?Recorded ?Confirmed ?Type metformin 500 mg tablet 500 mg PO BIDWMEAL 03/06/18 07/08/24 History montelukast 10 mg tablet 10 mg PO DAILY 03/06/18 07/08/24 History pregabalin 75 mg capsule (Lyrica) 75 mg PO BID 03/06/18 07/08/24 History simvastatin 20 mg tablet 20 mg PO HS 03/06/18 07/08/24 History escitalopram oxalate 20 mg tablet 20 mg PO DAILY 11/10/23 07/08/24 History fluticasone 250 mcg-salmeterol 50 1 ea inhalation BID 11/10/23 07/08/24 History mcg/dose blistr powdr for inhalation (Wixela Inhub) oxybutynin chloride 10 mg 20 mg PO DAILY 11/10/23 07/08/24 History tablet,extended release 24 hr magnesium oxide 400 mg (241.3 mg 400 mg PO DAILY 02/20/24 07/08/24 History magnesium) tablet furosemide 20 mg tablet (Lasix) 20 mg PO DAILY #30 tabs 02/25/24 07/08/24 Rx irbesartan 300 mg tablet 300 mg PO DAILY #30 tabs 02/25/24 07/08/24 Rx amlodipine 5 mg tablet 5 mg PO DAILY 05/09/24 07/08/24 History esomeprazole magnesium 40 mg 40 mg PO DAILY 05/09/24 07/08/24 History capsule,delayed release metoprolol succinate 50 mg 50 mg PO DAILY 05/09/24 07/08/24 History tablet,extended release 24 hr tizanidine 2 mg tablet 2 mg PO HSP PRN Muscle Pain 05/09/24 07/08/24 History azelastine 137 mcg (0.1 %) nasal 2 spray intranasal DAILY 05/12/24 07/08/24 History spray fluticasone propionate 50 2 spray intranasal DAILY 05/12/24 07/08/24 History mcg/actuation nasal spray,suspension olopatadine 0.7 % eye drops 1 drp ophthalmic (eye) DAILY 05/12/24 07/08/24 History (Pataday Once Daily Relief) bismuth subsalicylate 262 mg tablet 262 mg PO DAILYP PRN indigestion/ 07/08/24 07/08/24 History upset stomach calcium carbonate (Calcium 600) 600 mg PO DAILY 07/08/24 07/08/24 History cholecalciferol (vitamin D3) 25 25 mcg PO DAILY 07/08/24 07/08/24 History mcg (1,000 unit) tablet (Vitamin D3) cinnamon bark 500 mg capsule 1,000 mg PO DAILY 07/08/24 07/08/24 History (Cinnamon) famotidine 20 mg tablet 20 mg PO DAILY 07/08/24 07/08/24 History glucosamine sulfate 2KCl 1,000 mg 1,000 mg PO DAILY 07/08/24 07/08/24 History tablet hydroxyzine HCl 25 mg tablet 25 mg PO TIDP PRN Anxiety 07/08/24 07/08/24 History mecobalamin (vitamin B12) 1,000 3,000 mcg PO DAILY 07/08/24 07/08/24 History mcg chewable tablet (B12 Active) multivitamin 1 tab PO DAILY 07/08/24 07/08/24 History vit C 250 mg-vit E 90 mg-zinc 40 1 tab PO BID 07/08/24 07/08/24 History mg-copper 1 dt-cjtexz-anntlb capsule (PreserVision AREDS-2) New Prescriptions to Start Prescriptions: Allergies Allergy/AdvReac Type Severity Reaction Status Date / Time pollen extracts (POLLEN Allergy Intermediate ASTHMA Verified 07/08/24 09:35 EXTRACTS) Results Laboratory Findings 07/12/24 06:15 07/13/24 08:32 PT/INR, D-dimer PT 11.9 seconds (10.1-12.5) 07/08/24 09:12 INR 1.07 (0.9-1.1) 07/08/24 09:12 Abnormal lab findings: Abnormal Labs 07/08/24 07/08/24 07/11/24 09:12 09:22 05:39 WBC 12.6 H Hgb 10.7 L 10.3 L Hct 35.3 L 33.4 L MCV 79.0 L 77.1 L MCH 24.0 L 23.8 L MCHC 30.4 L 30.9 L RDW 18.9 H 18.9 H Plt Count 140 L Neut % (Auto) 84.9 H 89.4 H Lymph % (Auto) 7.6 L 4.7 L Neut # (Auto) 10.7 H Lymph # (Auto) 0.4 L Neutrophils % (Manual) 90 H Lymphocytes % (Manual) 8 L VBG pH 7.22 L VBG pCO2 83.1 H VBG pO2 43.2 H VBG HCO3 33.6 H VBG Total CO2 36.1 H VBG Base Excess 5.9 H VBG Lactic Acid 2.4 H Potassium 3.3 L D Chloride 94 L Carbon Dioxide 37 H 40 H Anion Gap BUN 36 H 35 H Creatinine 1.10 H Estimated GFR 47 L Est GFR ( Amer) 57 L Glucose 174 H 242 H POC Glucose Calcium AST 54 H NT-Pro-B Natriuret Pep 43577 H Albumin Globulin 3.5 H 07/12/24 07/12/24 07/12/24 06:15 10:44 16:58 WBC Hgb 11.2 L Hct 36.0 L MCV 77.1 L MCH 24.0 L MCHC 31.1 L RDW 18.7 H Plt Count Neut % (Auto) 88.4 H Lymph % (Auto) 4.7 L Neut # (Auto) Lymph # (Auto) 0.4 L Neutrophils % (Manual) 90 H Lymphocytes % (Manual) 7 L VBG pH VBG pCO2 VBG pO2 VBG HCO3 VBG Total CO2 VBG Base Excess VBG Lactic Acid Potassium 3.0 L Chloride 85 L Carbon Dioxide 42 H* Anion Gap BUN 36 H Creatinine Estimated GFR Est GFR ( Amer) Glucose 347 H POC Glucose 416 H* 290 H Calcium 8.2 L AST NT-Pro-B Natriuret Pep Albumin Globulin 07/12/24 07/13/24 07/13/24 20:27 05:29 08:32 WBC Hgb Hct MCV MCH MCHC RDW Plt Count Neut % (Auto) Lymph % (Auto) Neut # (Auto) Lymph # (Auto) Neutrophils % (Manual) Lymphocytes % (Manual) VBG pH VBG pCO2 VBG pO2 VBG HCO3 VBG Total CO2 VBG Base Excess VBG Lactic Acid Potassium Chloride 89 L Carbon Dioxide 37 H Anion Gap 15.5 H BUN 36 H Creatinine Estimated GFR Est GFR ( Amer) Glucose 325 H POC Glucose 375 H* 263 H Calcium 7.7 L AST 46 H NT-Pro-B Natriuret Pep Albumin 3.4 L Globulin Assessment and Plan *Assessment and plan (1) Pneumonia: Status: Acute Category: Medical Code(s): J18.9 - Pneumonia, unspecified organism (2) Acute and chronic respiratory failure with hypoxia: Status: Acute Category: Medical Code(s): J96.21 - Acute and chronic respiratory failure with hypoxia Plan Ms. Nascimento is a 83-year-old female presented to the hospital on 07/08/2024 with progressively worsening respiratory distress. Patient admission was noted to have hypercarbic respiratory failure, elevated BNP. Patient is and has been managed for COPD and CHF exacerbation along with pneumonia. Patient has been initiate noninvasive ventilatory therapy, eventually weaned to high flow nasal cannula supplementation. She continued to remain on Vapotherm since then and pulmonary was called for further evaluation and management. She continue to use CPAP therapy at night. No significant smoking history. Admits to history of allergic rhinitis and asthma. Blood gas upon admission on 07/08/2024 venous, hypercarbic respiratory failure with a pH of 7.22 and a pCO2 of 83.1. Chest x-ray upon admission bilateral diffuse patchy consolidative airspace disease, right greater than left. Repeat chest x-ray from this morning continued improvement in the noted airspace disease. Prior sputum cultures MSSA no sputum cultures available on this admission. Blood cultures no growth at 4 days. Neutrophilic predominant leukocytosis upon admission, improving. Patient has been receiving ceftriaxone and azithromycin since admission. However our patient's airspace disease and respiratory status has been gradually improving since admission. Will continue current management course. Plan: Continue ceftriaxone and azithromycin pending sputum culture results to complete a total of 7-10 day course Continue DuoNebs every 6 hours along with supplementation to maintain O2 saturation goal of 90% and above Incentive spirometry and flutter valve PT OT consult Patient also having frequent hospital admissions recently January and April status posttreatment for pneumonia. No obvious consolidative changes noted on her CT scans on both admissions except for groundglass opacities. Will follow as an outpatient basis.
[2024-07-13] MEDS: INSULIN GLARGINE 100 UNITS/ML 3ML FLEXPEN 20 UNIT SUBCUT (10:23)
[2024-07-13 12:35] LABS: POC Glucose,Bedside 267 (70-110)
[2024-07-13 16:40] LABS: POC Glucose,Bedside 290 (70-110)
[2024-07-13] MEDS: BUDESONIDE 0.5MG/2ML NEB 0.5 MG IH (18:24)
[2024-07-13 19:55] LABS: POC Glucose,Bedside 259 (70-110)
[2024-07-13] MEDS: PRAVASTATIN 40MG TAB 40 MG PO (20:01)
[2024-07-13] MEDS: PANTOPRAZOLE 40MG TABLET 40 MG PO (20:01)
[2024-07-14] VITALS (12 sets, daily range): BP systolic 114–166; BP diastolic 52–86; PULSE 56–90; RESP 16–20; TEMP 36.7–37.2; O2SAT 92–97; BMI 33.3
[2024-07-14 06:07] LABS: POC Glucose,Bedside 229 (70-110)
[2024-07-14] MEDS: humaLOG 100 UNITS/ML 10ML VIAL (SSI) SUBCUT ×4 (06:08→20:56)
[2024-07-14] MEDS: BUDESONIDE 0.5MG/2ML NEB 0.5 MG IH (06:15)
[2024-07-14] MEDS: IPRATROPIUM/ALBUTEROL 3 ML NEB IH ×2 (06:15→11:14)
[2024-07-14 06:47] LABS: Basophils % 0.3 % (0.1-2.0); Eosinophils % 0.1 % (0.1-12.0); Hematocrit 37.9 % (37.0-47.0); Hemoglobin 11.7 g/dL (12.2-16.2); Lymphocytes # 0.5 K/mm3 (0.7-4.5); Lymphocytes % 3.8 % (10-50); Mean Corpuscular HGB Conc 30.9 g/dL (31.8-35.4); Mean Corpuscular Hemoglobin 23.5 pg (27.0-31.2); Mean Corpuscular Volume 75.9 fl (81-99); Mean Platelet Volume 7.8 fl (7.4-10.4); Monocytes # 0.6 K/mm3 (0.1-1.0); Monocytes % 5.1 % (1.7-9.3); Neutrophils # 10.8 K/mm3 (1.8-7.8); Neutrophils % 90.7 % (37.0-80.0); Platelet Count 184 K/mm3 (142-424); Red Blood Count 4.99 M/mm3 (4.20-5.40); Red Cell Distribution Width 18.4 % (11.5-17.5); White Blood Count 11.9 K/mm3 (4.8-10.8)
[2024-07-14 06:49] LABS: Blood Urea Nitrogen 38 mg/dl (7-17); Calcium 7.9 mg/dl (8.4-10.2); Chloride 88 mmol/L (98-107); Creatinine Clearance Estimated 61 mL/min (50-200); Estimated Glomerular Filt Rate 68 ml/min (>60); GFR (African American) 82 ML/MIN (>60); Glucose 228 mg/dl (74-100); Potassium 3.7 mmoL/L (3.5-5.1); Sodium 137 mmol/L (136-145)
[2024-07-14 06:55] LABS: MANUAL DIFFERENTIAL MANUAL DIFFERENTIAL (MANUAL DIFF)
[2024-07-14 06:57] LABS: Anion Gap 15.7 mEq/L (5-15); Carbon Dioxide 37 mmol/L (22.0-30.0)
--- NOTE | 2024-07-14 07:41 | P.PN_ITS ---
Subjective *Date: 07/14/24 *Time: 08:50 Interval history: Patient states she definitely feels better today. She had a good day yesterday. She was weaned to oxygen per nasal cannula at 3 L per minute with adequate oxygen saturations. She denies any pain. She was able to get up and sit in the chair yesterday with the help from physical therapy. She states she thought she did rather well. Ramirez catheter is out she has a pure wick at place and she is voiding QS. Bowels have not moved. She has been able to eat without problems. She states she already sleeps well. Laboratory data with CBC showing white blood cell count 11,900 with a hemoglobin of 11.7 hematocrit 37.9. Blood chemistries with normal potassium at 3.7 BUN is 38 and creatinine is 0.8. Blood sugars have been consistently lower she remains on sliding scale. Chest x-ray 07/13/2024 revealed the following: FINDINGS: Lungs: Basilar infiltrates similar to prior comparison likely indicative of atelectasis or scarring. No new pulmonary infiltrate. Pleural spaces: Unremarkable. No pleural effusion. No pneumothorax. Heart/Mediastinum: Unremarkable. No cardiomegaly. Vasculature: Atherosclerotic disease of the aortic arch. 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 Bones/joints: Unremarkable. IMPRESSION: Stable examination from 07/09/2024. Patient was also seen by special service representative Dr. Morris Medical Exam Vital signs and Labs for Last 24 Hours: Vital Signs Temp Pulse Pulse Resp BP Pulse Ox O2 Del Method 07/14/24 06:42 Nasal Cannula 07/14/24 06:15 80 07/14/24 06:15 80 07/14/24 06:15 96 Nasal Cannula 07/14/24 06:00 92 L Nasal Cannula 07/14/24 05:00 Nasal Cannula, CPAP 07/14/24 04:00 80 07/14/24 03:57 98.5 F 66 17 166/86 H 92 L Nasal Cannula, CPAP 07/14/24 03:00 Nasal Cannula, CPAP 07/14/24 01:00 Nasal Cannula, CPAP 07/14/24 00:00 70 07/14/24 00:00 CPAP 07/14/24 00:00 98.1 F 75 17 164/66 H 97 BiPAP 07/13/24 23:00 Nasal Cannula, CPAP 07/13/24 21:00 Nasal Cannula 07/13/24 20:00 80 07/13/24 20:00 Nasal Cannula 07/13/24 20:00 98.4 F 76 18 122/55 L 92 L Nasal Cannula 07/13/24 19:00 Nasal Cannula 07/13/24 18:35 65 07/13/24 18:35 74 07/13/24 18:35 100 Nasal Cannula 07/13/24 16:55 Nasal Cannula 07/13/24 16:42 69 97 Nasal Cannula 07/13/24 16:14 96 Nasal Cannula 07/13/24 16:00 80 07/13/24 16:00 83 22 157/76 H 96 Nasal Cannula 07/13/24 15:24 Nasal Cannula 07/13/24 14:00 82 24 134/71 90 L Nasal Cannula 07/13/24 13:20 Nasal Cannula 07/13/24 12:00 90 07/13/24 12:00 76 22 136/76 90 L Nasal Cannula 07/13/24 12:00 98.4 F 07/13/24 11:35 71 07/13/24 11:35 74 07/13/24 11:09 Nasal Cannula 07/13/24 10:00 74 22 153/68 H 92 L Nasal Cannula 07/13/24 09:25 Nasal Cannula 07/13/24 09:15 60 18 07/13/24 09:10 95 Nasal Cannula 07/13/24 09:00 75 98 Vapotherm 07/13/24 08:04 89 L Vapotherm 07/13/24 08:00 80 07/13/24 08:00 80 20 140/69 90 L Vapotherm 07/13/24 08:00 98.2 F 78 24 160/40 H 89 L Vapotherm O2 Flow Rate FiO2 07/14/24 06:42 3 07/14/24 06:15 07/14/24 06:15 07/14/24 06:15 3 07/14/24 06:00 3 07/14/24 05:00 3 07/14/24 04:00 07/14/24 03:57 3 07/14/24 03:00 3 07/14/24 01:00 3 07/14/24 00:00 07/14/24 00:00 3 07/14/24 00:00 07/13/24 23:00 3 07/13/24 21:00 3 07/13/24 20:00 07/13/24 20:00 3 07/13/24 20:00 3 07/13/24 19:00 3 07/13/24 18:35 07/13/24 18:35 07/13/24 18:35 3 07/13/24 16:55 3 07/13/24 16:42 3 07/13/24 16:14 3 07/13/24 16:00 07/13/24 16:00 3 07/13/24 15:24 3 07/13/24 14:00 3 07/13/24 13:20 3 07/13/24 12:00 07/13/24 12:00 3 07/13/24 12:00 07/13/24 11:35 07/13/24 11:35 07/13/24 11:09 3 07/13/24 10:00 3 07/13/24 09:25 3 07/13/24 09:15 07/13/24 09:10 2 07/13/24 09:00 20 40 07/13/24 08:04 20 35 07/13/24 08:00 07/13/24 08:00 20 35 07/13/24 08:00 20 35 Intake and Output 07/13/24 07/14/24 07/14/24 19:59 03:59 11:59 Intake Total 580 / 580 Output Total 600 / 600 400 / 1000 Balance 580 / 580 -600 / -20 -400 / -420 Intake: Intake, Oral Amount 580 / 580 Output: Output, Urine Amount 600 / 600 400 / 1000 Other: Number of Unmeasured Voids 0 0 Weight 207 lb 8 oz Patient Weight 07/14/24 11:59 Weight 207 lb 8 oz Laboratory Results - last 24 hr 07/13/24 08:32: Sodium 138, Potassium 3.5, Chloride 89 L, Carbon Dioxide 37 H, Anion Gap 15.5 H, BUN 36 H, Creatinine 0.90, Estimated Creat Clear 61, Estimated GFR 60, Est GFR ( Amer) 72, Glucose 325 H, Calcium 7.7 L, Total Bilirubin 0.6, AST 46 H, ALT 52, Alkaline Phosphatase 74, Total Protein 6.4, Albumin 3.4 L , Globulin 3.0, Albumin/Globulin Ratio 1.1 07/13/24 12:16: POC Glucose 267 H 07/13/24 16:31: POC Glucose 290 H 07/13/24 19:47: POC Glucose 259 H 07/14/24 05:57: POC Glucose 229 H 07/14/24 06:13: WBC 11.9 H D, RBC 4.99, Hgb 11.7 L, Hct 37.9, MCV 75.9 L, MCH 23.5 L, MCHC 30.9 L, RDW 18.4 H, Plt Count 184, MPV 7.8, Neut % (Auto) 90.7 H, Lymph % (Auto) 3.8 L, [place] % (Auto) 5.1, Eos % (Auto) 0.1, Baso % (Auto) 0.3, Neut # (Auto) 10.8 H, Lymph # (Auto) 0.5 L, [place] # (Auto) 0.6, Eos # (Auto) 0.0, Baso # (Auto) 0.0, Sodium 137, Potassium 3.7, Chloride 88 L, Carbon Dioxide 37 H , Anion Gap 15.7 H, BUN 38 H, Creatinine 0.80, Estimated Creat Clear 61, Estimated GFR 68, Est GFR ( Amer) 82, Glucose 228 H D, Calcium 7.9 L I & O for Labs for Last 24 Hours: Intake & Output 07/11/24 07/12/24 07/13/24 07/14/24 11:59 11:59 11:59 11:59 Intake Total 1630 / 1630 3480 / 3480 1120 / 1120 580 / 580 Output Total 3825 / 3825 3840 / 3840 2200 / 2200 1000 / 1000 Balance -2195 / -2195 -360 / -360 -1080 / -1080 -420 / -420 Weight 218 lb 1.653 oz 218 lb 1.653 oz 208 lb 3.2 oz 207 lb 8 oz Microbiology Reports for the Last 24 Hours: Microbiology 07/08/24 09:46 Blood Blood Culture - Final NO GROWTH AFTER 5 DAYS 07/08/24 09:40 Blood Blood Culture - Final NO GROWTH AFTER 5 DAYS Constitutional: Present no acute distress Comment:: Dyspneic with talking Respiratory: Present decreased breath sounds (Posteriorly) and CTA bilaterally (A&P) Cardiac: Present Irregularly Regular (Monitor showing atrial fib) GI: Present soft, hyperactive bowel sounds and other (Obese) Comment:: Pure wick in place Extremities: Present edema (Minimal edema in the left lower leg); Absent calf tenderness Neuro: Present alert, awake and oriented x 3 Assessment and Plan *Assessment and plan (1) Sepsis: Status: Acute Category: Medical Code(s): A41.9 - Sepsis, unspecified organism (2) Pneumonia: Status: Acute Category: Medical Code(s): J18.9 - Pneumonia, unspecified organism (3) Acute hypercapnic respiratory failure: Status: Acute Category: Medical Code(s): J96.02 - Acute respiratory failure with hypercapnia (4) Acute hypoxemic respiratory failure: Status: Acute Category: Medical Code(s): J96.01 - Acute respiratory failure with hypoxia (5) Ankle pain: Status: Acute Category: Medical Code(s): M25.579 - Pain in unspecified ankle and joints of unspecified foot (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 Category: Medical Code(s): M21.962 - Unspecified acquired deformity of left lower leg (7) Left ankle instability: Status: Acute Category: Medical Code(s): M25.372 - Other instability, left ankle (8) General weakness: Status: Acute Category: Medical Code(s): R53.1 - Weakness (9) Hypertension: Status: Acute Category: Medical Code(s): I10 - Essential (primary) hypertension (10) Neuropathy: Status: Acute Category: Medical Code(s): G62.9 - Polyneuropathy, unspecified (11) Depression: Status: Acute Category: Medical Code(s): F32.A - Depression, unspecified (12) GERD (gastroesophageal reflux disease): Status: Acute Category: Medical Code(s): K21.9 - Gastro-esophageal reflux disease without esophagitis (13) Hyperlipidemia: Status: Acute Category: Medical Code(s): E78.5 - Hyperlipidemia, unspecified (14) Hypokalemia: Status: Acute Category: Medical Code(s): E87.6 - Hypokalemia (15) DM type 2 (diabetes mellitus, type 2): Status: Acute Category: Medical Code(s): E11.9 - Type 2 diabetes mellitus without complications (16) Acute and chronic respiratory failure with hypoxia: Status: Acute Category: Medical Code(s): J96.21 - Acute and chronic respiratory failure with hypoxia Plan Will continue with current care. Patient is using incentive spirometer and flutter valve. Continue to get out of bed. Dr. Adamson entry - Saw patient, agree with above note. She is improving, possible discharge to [facility] tomorrow.
[2024-07-14] MEDS: FUROSEMIDE 40MG/4ML VIAL 40 MG IV (09:17)
[2024-07-14] MEDS: CEFTRIAXONE 1 GM 1 GM in 0.9 % SODIUM CHLORIDE 50 ML IV (09:18)
[2024-07-14] MEDS: ENOXAPARIN 40MG/0.4ML SYRINGE 40 MG SUBCUT (09:23)
[2024-07-14] MEDS: AZITHROMYCIN 250MG TABLET 500 MG PO (09:23)
[2024-07-14] MEDS: predniSONE 20MG TAB 40 MG PO (09:23)
[2024-07-14] MEDS: PREGABALIN 25MG CAPSULE 75 MG PO ×2 (09:24→20:55)
[2024-07-14] MEDS: OLOPATADINE 0.1% OP ×2 (09:25→20:56)
[2024-07-14] MEDS: AMLODIPINE 5MG TABLET 5 MG PO (09:25)
[2024-07-14] MEDS: IRBESARTAN 150MG TAB 150 MG PO (09:25)
[2024-07-14] MEDS: POTASSIUM CHLORIDE 20MEQ TAB 20 MEQ PO ×2 (09:25→20:55)
[2024-07-14] MEDS: FAMOTIDINE 20MG TABLET 20 MG PO (09:25)
[2024-07-14] MEDS: CITALOPRAM 40MG TABLET 40 MG PO (09:25)
[2024-07-14] MEDS: INSULIN GLARGINE 100 UNITS/ML 3ML FLEXPEN 20 UNIT SUBCUT (09:26)
[2024-07-14 09:35] LABS: Lymphocytes % 14 % (10-50); Monocytes % 2 % (2-9); Neutrophils % 84 % (42-76); Platelet Estimate Normal; Total Cells Counted 100
[2024-07-14 09:36] LABS: Hypochromasia 1+
[2024-07-14 10:16] LABS: POC Glucose,Bedside 240 (70-110)
--- NOTE | 2024-07-14 10:17 | DIET.NUTRFU ---
interviewed patient who confirmed she has not had a BM since 07/09. She plans on going to rehab tomorrow. Miralax was added yesterday and again today. Patient agreed to try some prune juice also, ordered from kitchen for now and at lunch.
--- NOTE | 2024-07-14 10:45 | P.PN_ITS ---
Subjective *Date: 07/14/24 *Time: 12:17 Interval history: No acute respiratory vents overnight. Patient admits continued improvement in her respiratory symptoms. Pulmonology Exam Inpatient Vital signs and Labs for Last 24 Hours: Temp Pulse Resp BP Pulse Ox O2 Del Method O2 Flow Rate 98.6 F 79 20 147/58 H 94 L Nasal Cannula 3 07/14/24 08:00 07/14/24 08:00 07/14/24 08:00 07/14/24 08:00 07/14/24 08:00 07/14/24 09:52 07/14/24 09:52 FiO2 40 07/13/24 09:00 Laboratory Results - last 24 hr 07/13/24 12:16: POC Glucose 267 H 07/13/24 16:31: POC Glucose 290 H 07/13/24 19:47: POC Glucose 259 H 07/14/24 05:57: POC Glucose 229 H 07/14/24 06:13: WBC 11.9 H D, RBC 4.99, Hgb 11.7 L, Hct 37.9, MCV 75.9 L, MCH 23.5 L, MCHC 30.9 L, RDW 18.4 H, Plt Count 184, MPV 7.8, Neut % (Auto) 90.7 H, Lymph % (Auto) 3.8 L, [place] % (Auto) 5.1, Eos % (Auto) 0.1, Baso % (Auto) 0.3, Neut # (Auto) 10.8 H, Lymph # (Auto) 0.5 L, [place] # (Auto) 0.6, Eos # (Auto) 0.0, Baso # (Auto) 0.0, Total Counted 100, Neutrophils % (Manual) 84 H, Lymphocytes % (Manual) 14, Monocytes % (Manual) 2, Platelet Estimate Normal, Hypochromasia 1+, Sodium 137, Potassium 3.7, Chloride 88 L, Carbon Dioxide 37 H, Anion Gap 15.7 H, BUN 38 H, Creatinine 0.80, Estimated Creat Clear 61, Estimated GFR 68, Est GFR ( Amer) 82, Glucose 228 H D, Calcium 7.9 L 07/14/24 10:10: POC Glucose 240 H Temp Pulse Resp BP Pulse Ox O2 Del Method O2 Flow Rate 98.2 F 60 18 140/69 95 Nasal Cannula 3 07/13/24 08:00 07/13/24 09:15 07/13/24 09:15 07/13/24 08:00 07/13/24 09:10 07/13/24 09:25 07/13/24 09:25 FiO2 40 07/13/24 09:00 Laboratory Results - last 24 hr 07/12/24 10:44: POC Glucose 416 H* 07/12/24 16:58: POC Glucose 290 H 07/12/24 20:27: POC Glucose 375 H* 07/13/24 05:29: POC Glucose 263 H 07/13/24 08:32: Sodium 138, Potassium 3.5, Chloride 89 L, Carbon Dioxide 37 H, Anion Gap 15.5 H, BUN 36 H, Creatinine 0.90, Glucose 325 H, Calcium 7.7 L, Total Bilirubin 0.6, AST 46 H, ALT 52, Alkaline Phosphatase 74, Total Protein 6.4, Albumin 3.4 L I & O for Labs for Last 24 Hours: Intake & Output 07/11/24 07/12/24 07/13/24 07/14/24 23:59 23:59 23:59 23:59 Intake Total 1280 / 1280 3590 / 3590 950 / 950 350 / 350 Output Total 4800 / 4800 2040 / 2040 1600 / 2200 1000 / 1000 Balance -3520 / -3520 1550 / 1550 -650 / -1250 -650 / -650 Weight 218 lb 1.653 oz 218 lb 1.653 oz 208 lb 3.2 oz 207 lb 8 oz Intake & Output 07/10/24 07/11/24 07/12/24 07/13/24 23:59 23:59 23:59 23:59 Intake Total 1740 / 1980 1280 / 1280 3590 / 3590 270 / 270 Output Total 1825 / 3125 4800 / 4800 2040 / 2040 600 / 600 Balance -85 / -1145 -3520 / -3520 1550 / 1550 -330 / -330 Weight 218 lb 1.653 oz 218 lb 1.653 oz 218 lb 1.653 oz 208 lb 3.2 oz Microbiology Reports for the Last 24 Hours: Microbiology 07/08/24 09:46 Blood Blood Culture - Final NO GROWTH AFTER 5 DAYS 07/08/24 09:40 Blood Blood Culture - Final NO GROWTH AFTER 5 DAYS Microbiology 07/08/24 09:46 Blood Blood Culture - Preliminary NO GROWTH AFTER 4 DAYS 07/08/24 09:40 Blood Blood Culture - Preliminary NO GROWTH AFTER 4 DAYS Constitutional: Present moderate distress Head: Present normocephalic and atraumatic ENT: Present normal exam, normal oropharynx and mucous membranes moist Neck: Present normal inspection and full ROM Respiratory: Present prolonged expiratory phase, respiratory distress, diminished air movement, able to speak in complete sentences and symmetric chest movement; Absent rhonchi, wheezes or crackles Cardiac: Present S1/S2, Tachycardia and radial pulses present GI: Present soft and distention; Absent tenderness or guarding Rectal (female): Present deferred (female): Present deferred Skin: Present intact; Absent cyanosis or jaundice Neuro: Present alert, awake and oriented x 3 Extremities: Present normal inspection; Absent clubbing or cyanosis Psychiatric: Present normal affect and cooperative Assessment and Plan *Assessment and plan (1) Pneumonia: Status: Acute Category: Medical Code(s): J18.9 - Pneumonia, unspecified organism (2) Acute and chronic respiratory failure with hypoxia: Status: Acute Category: Medical Code(s): J96.21 - Acute and chronic respiratory failure with hypoxia Plan Ms. Nascimento is a 83-year-old female presented to the hospital on 07/08/2024 with progressively worsening respiratory distress. Patient admission was noted to have hypercarbic respiratory failure, elevated BNP. Patient is and has been managed for COPD and CHF exacerbation along with pneumonia. Patient has been initiate noninvasive ventilatory therapy, eventually weaned to high flow nasal cannula supplementation. She continued to remain on Vapotherm since then and pulmonary was called for further evaluation and management. She continue to use CPAP therapy at night. No significant smoking history. Admits to history of allergic rhinitis and asthma. Blood gas upon admission on 07/08/2024 venous, hypercarbic respiratory failure with a pH of 7.22 and a pCO2 of 83.1. Chest x-ray upon admission bilateral diffuse patchy consolidative airspace disease, right greater than left. Repeat chest x-ray from this morning continued improvement in the noted airspace disease. Prior sputum cultures MSSA no sputum cultures available on this admission. Blood cultures no growth at 4 days. Neutrophilic predominant leukocytosis upon admission, improving. Patient has been receiving ceftriaxone and azithromycin since admission. However our patient's airspace disease and respiratory status has been gradually improving since admission. Will continue current management course. Interval update: Acute respiratory vents overnight. Tolerating nasal cannula well. Slight worsening leukocytosis. Continue to receive antibiotics. Plan: Continue oxygen supplementation to maintain O2 saturation goal of 90% and above Continue ceftriaxone and azithromycin pending sputum culture results to complete a total of 10 day course. No need for prednisone at this point of time. Initiate Advair 250 twice daily as scheduled. Continue DuoNebs only on as- needed basis. Incentive spirometry and flutter valve PT OT consult Patient also having frequent hospital admissions recently January and April status posttreatment for pneumonia. No obvious consolidative changes noted on her CT scans on both admissions except for groundglass opacities. Will follow as an outpatient basis. # Thank you for involving pulmonary in this patient care.
[2024-07-14 16:31] LABS: POC Glucose,Bedside 233 (70-110)
[2024-07-14] MEDS: FLUTICASONE/SALMETEROL 250/50MCG DISKUS 1 PUFF IH (18:12)
[2024-07-14] MEDS: PRAVASTATIN 40MG TAB 40 MG PO (20:55)
[2024-07-14] MEDS: PANTOPRAZOLE 40MG TABLET 40 MG PO (20:55)
[2024-07-14 21:11] LABS: POC Glucose,Bedside 292 (70-110)
[2024-07-15] VITALS: PULSE 60
[2024-07-15 04:00] VITALS: BP 146/75; PULSE 60; RESP 16; TEMP 36.6; O2SAT 96; BMI 32.3
--- NOTE | 2024-07-15 04:59 | PC.NURSE ---
Pt. is alert and orientated x 4. Pt. was on 3 liters nasal cannula oxygen while awake and uses BiPAP at night No c/o pain. Vital signs stable. Pt. is supposed to be transferred to [facility] [place]. Person items and call steel in reach.
[2024-07-15] MEDS: FLUTICASONE/SALMETEROL 250/50MCG DISKUS 1 PUFF IH (06:09)
[2024-07-15 06:10] VITALS: O2SAT 90
[2024-07-15 07:46] VITALS: BP 115/47; PULSE 80; RESP 18; TEMP 36.6; O2SAT 91
--- NOTE | 2024-07-15 08:19 | P.PN_ITS ---
Subjective *Date: 07/15/24 *Time: 08:57 Interval history: Patient states she is feeling a little better. She had some problems with her CPAP last night and had to take it off. She has nasal oxygen on this am and is comfortable. She denies any pain other than in her buttocks from lying in the bed so long. She was able to get up in a chair. She is eating and did rest last night. Medical Exam Vital signs and Labs for Last 24 Hours: Vital Signs Temp Pulse Pulse Resp BP Pulse Ox O2 Del Method 07/15/24 07:46 97.9 F 80 18 115/47 L 91 L Nasal Cannula 07/15/24 07:00 Nasal Cannula 07/15/24 06:10 90 L Nasal Cannula 07/15/24 04:58 Nasal Cannula 07/15/24 04:00 60 07/15/24 04:00 97.8 F 60 16 146/75 H 96 Nasal Cannula 07/15/24 03:00 BiPAP 07/15/24 01:00 BiPAP 07/15/24 00:00 60 07/14/24 23:49 98.6 F 70 18 154/58 H 97 CPAP 07/14/24 23:00 BiPAP 07/14/24 21:00 Nasal Cannula 07/14/24 20:00 Nasal Cannula 07/14/24 20:00 60 07/14/24 19:36 98.9 F 60 16 138/67 92 L Nasal Cannula 07/14/24 19:00 Nasal Cannula 07/14/24 18:18 Nasal Cannula 07/14/24 17:00 Nasal Cannula 07/14/24 16:00 70 07/14/24 16:00 98.6 F 56 L 20 141/64 H 93 L Nasal Cannula 07/14/24 16:00 Nasal Cannula 07/14/24 15:00 Nasal Cannula 07/14/24 12:14 Nasal Cannula 07/14/24 12:00 80 07/14/24 11:59 98.5 F 60 20 114/52 L 93 L Nasal Cannula 07/14/24 09:52 Nasal Cannula 07/14/24 08:52 Nasal Cannula O2 Flow Rate FiO2 07/15/24 07:46 3 07/15/24 07:00 3 07/15/24 06:10 2 07/15/24 04:58 3 07/15/24 04:00 07/15/24 04:00 3 07/15/24 03:00 07/15/24 01:00 07/15/24 00:00 07/14/24 23:49 07/14/24 23:00 07/14/24 21:00 3 07/14/24 20:00 3 07/14/24 20:00 07/14/24 19:36 3 07/14/24 19:00 3 07/14/24 18:18 3 32 07/14/24 17:00 3 07/14/24 16:00 07/14/24 16:00 3 07/14/24 16:00 3 07/14/24 15:00 3 07/14/24 12:14 3 07/14/24 12:00 07/14/24 11:59 3 07/14/24 09:52 3 07/14/24 08:52 3 Intake and Output 07/14/24 07/15/24 07/15/24 19:59 03:59 11:59 Intake Total 600 / 870 270 / 870 Output Total 400 / 1050 650 / 1050 Balance 200 / -180 -380 / -180 Intake: Intake, Oral Amount 600 / 870 270 / 870 Output: Output, Urine Amount 400 / 1050 650 / 1050 Other: Number of Unmeasured Voids 0 Number of Bowel Movements 1 Weight 201 lb 9.6 oz Patient Weight 07/15/24 11:59 Weight 201 lb 9.6 oz Laboratory Results - last 24 hr 07/14/24 06:13: Total Counted 100, Neutrophils % (Manual) 84 H, Lymphocytes % (Manual) 14, Monocytes % (Manual) 2, Platelet Estimate Normal, Hypochromasia 1+ 07/14/24 10:10: POC Glucose 240 H 07/14/24 16:24: POC Glucose 233 H 07/14/24 20:39: POC Glucose 292 H I & O for Labs for Last 24 Hours: Intake & Output 07/12/24 07/13/24 07/14/24 07/15/24 11:59 11:59 11:59 11:59 Intake Total 3480 / 3480 1120 / 1120 930 / 930 870 / 870 Output Total 3840 / 3840 2200 / 2200 2100 / 2100 1050 / 1050 Balance -360 / -360 -1080 / -1080 -1170 / -1170 -180 / -180 Weight 218 lb 1.653 oz 208 lb 3.2 oz 207 lb 8 oz 201 lb 9.6 oz Constitutional: Present no acute distress Respiratory: Present decreased breath sounds (Posteriorly) and wheezes Cardiac: Present Irregularly Regular (Monitor showing atrial fib) GI: Present soft, hyperactive bowel sounds and other (Obese) Comment:: Pure wick in place Extremities: Present edema (Minimal edema in the left lower leg); Absent calf t enderness Neuro: Present alert, awake and oriented x 3 Assessment and Plan *Assessment and plan (1) Sepsis: Status: Acute Category: Medical Code(s): A41.9 - Sepsis, unspecified organism (2) Pneumonia: Status: Acute Category: Medical Code(s): J18.9 - Pneumonia, unspecified organism (3) Acute hypercapnic respiratory failure: Status: Acute Category: Medical Code(s): J96.02 - Acute respiratory failure with hypercapnia (4) Acute hypoxemic respiratory failure: Status: Acute Category: Medical Code(s): J96.01 - Acute respiratory failure with hypoxia (5) Ankle pain: Status: Acute Category: Medical Code(s): M25.579 - Pain in unspecified ankle and joints of unspecified foot (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 Category: Medical Code(s): M21.962 - Unspecified acquired deformity of left lower leg (7) Left ankle instability: Status: Acute Category: Medical Code(s): M25.372 - Other instability, left ankle (8) General weakness: Status: Acute Category: Medical Code(s): R53.1 - Weakness (9) Hypertension: Status: Acute Category: Medical Code(s): I10 - Essential (primary) hypertension (10) Neuropathy: Status: Acute Category: Medical Code(s): G62.9 - Polyneuropathy, unspecified (11) Depression: Status: Acute Category: Medical Code(s): F32.A - Depression, unspecified (12) GERD (gastroesophageal reflux disease): Status: Acute Category: Medical Code(s): K21.9 - Gastro-esophageal reflux disease without esophagitis (13) Hyperlipidemia: Status: Acute Category: Medical Code(s): E78.5 - Hyperlipidemia, unspecified (14) Hypokalemia: Status: Acute Category: Medical Code(s): E87.6 - Hypokalemia (15) DM type 2 (diabetes mellitus, type 2): Status: Acute Category: Medical Code(s): E11.9 - Type 2 diabetes mellitus without complications (16) Acute and chronic respiratory failure with hypoxia: Status: Acute Category: Medical Code(s): J96.21 - Acute and chronic respiratory failure with hypoxia Plan Possible discharge to [place] today. Will discuss with Dr. Adamson. Dr. Adamson entry - Saw patient, agree with above note. Check labs this luhn ing.
[2024-07-15] MEDS: AZITHROMYCIN 250MG TABLET 500 MG PO (08:32)
[2024-07-15] MEDS: IRBESARTAN 150MG TAB 150 MG PO (08:32)
[2024-07-15] MEDS: predniSONE 20MG TAB 40 MG PO (08:32)
[2024-07-15] MEDS: FAMOTIDINE 20MG TABLET 20 MG PO (08:32)
[2024-07-15] MEDS: FUROSEMIDE 40MG/4ML VIAL 40 MG IV (08:33)
[2024-07-15] MEDS: CITALOPRAM 40MG TABLET 40 MG PO (08:33)
[2024-07-15] MEDS: AMLODIPINE 5MG TABLET 5 MG PO (08:33)
[2024-07-15] MEDS: POTASSIUM CHLORIDE 20MEQ TAB 20 MEQ PO (08:33)
[2024-07-15] MEDS: CEFTRIAXONE 1 GM 1 GM in 0.9 % SODIUM CHLORIDE 50 ML IV (08:34)
[2024-07-15] MEDS: OLOPATADINE 0.1% OP (08:34)
[2024-07-15] MEDS: ENOXAPARIN 40MG/0.4ML SYRINGE 40 MG SUBCUT (08:34)
[2024-07-15] MEDS: POLYETHYLENE GLYCOL 3350 17 GM PACKET PO (08:35)
[2024-07-15] MEDS: INSULIN GLARGINE 100 UNITS/ML 3ML FLEXPEN 20 UNIT SUBCUT (08:37)
[2024-07-15] MEDS: PREGABALIN 25MG CAPSULE 75 MG PO (08:39)
[2024-07-15 08:56] LABS: POC Glucose,Bedside 220 (70-110)
--- NOTE | 2024-07-15 09:35 | XR_ITS ---
FINAL REPORT CLINICAL HISTORY: pneumonia COMPARISON: 07/13/2024 FINDINGS: The heart size is normal. The mediastinum is normal. There is scarring at the left base, which is stable. There is no focal infiltrate or edema. There are no pleural effusions. There is no pneumothorax. There is no osseous abnormality. IMPRESSION: Stable exam without acute cardiopulmonary process. Reviewed, Interpreted and Dictated by Matt Lund MD Transcribed by Yamilex Abbott Authenticated and . [facility]
--- NOTE | 2024-07-15 09:35 | P.PN_ITS ---
Subjective *Date: 07/15/24 *Time: 11:15 Interval history: No acute respiratory vents overnight. Patient admits continued improvement in her respiratory symptoms. Pulmonology Exam Inpatient Vital signs and Labs for Last 24 Hours: Temp Pulse Resp BP Pulse Ox O2 Del Method O2 Flow Rate 97.9 F 80 18 115/47 L 91 L Nasal Cannula 3 07/15/24 07:46 07/15/24 07:46 07/15/24 07:46 07/15/24 07:46 07/15/24 07:46 07/15/24 07:46 07/15/24 07:46 FiO2 32 07/14/24 18:18 Laboratory Results - last 24 hr 07/14/24 06:13: Total Counted 100, Neutrophils % (Manual) 84 H, Lymphocytes % (Manual) 14, Monocytes % (Manual) 2, Platelet Estimate Normal, Hypochromasia 1+ 07/14/24 10:10: POC Glucose 240 H 07/14/24 16:24: POC Glucose 233 H 07/14/24 20:39: POC Glucose 292 H 07/15/24 08:30: POC Glucose 220 H Temp Pulse Resp BP Pulse Ox O2 Del Method O2 Flow Rate 98.2 F 60 18 140/69 95 Nasal Cannula 3 07/13/24 08:00 07/13/24 09:15 07/13/24 09:15 07/13/24 08:00 07/13/24 09:10 07/13/24 09:25 07/13/24 09:25 FiO2 40 07/13/24 09:00 Laboratory Results - last 24 hr 07/12/24 10:44: POC Glucose 416 H* 07/12/24 16:58: POC Glucose 290 H 07/12/24 20:27: POC Glucose 375 H* 07/13/24 05:29: POC Glucose 263 H 07/13/24 08:32: Sodium 138, Potassium 3.5, Chloride 89 L, Carbon Dioxide 37 H, Anion Gap 15.5 H, BUN 36 H, Creatinine 0.90, Glucose 325 H, Calcium 7.7 L, Total Bilirubin 0.6, AST 46 H, ALT 52, Alkaline Phosphatase 74, Total Protein 6.4, Albumin 3.4 L I & O for Labs for Last 24 Hours: Intake & Output 07/12/24 07/13/24 07/14/2424 23:59 23:59 23:59 23:59 Intake Total 3590 / 3590 950 / 950 950 / 950 270 / 270 Output Total 2040 / 2040 1600 / 2200 2500 / 2500 650 / 650 Balance 1550 / 1550 -650 / -1250 -1550 / -1550 -380 / -380 Weight 218 lb 1.653 oz 208 lb 3.2 oz 207 lb 8 oz 201 lb 9.6 oz Intake & Output 07/10/24 07/11/24 07/12/24 07/13/24 23:59 23:59 23:59 23:59 Intake Total 1740 / 1980 1280 / 1280 3590 / 3590 270 / 270 Output Total 1825 / 3125 4800 / 4800 2039 / 0 600 / 600 Balance -85 / -1145 -3520 / -3520 1550 / 1550 -330 / -330 Weight 218 lb 1.653 oz 218 lb 1.653 oz 218 lb 1.653 oz 208 lb 3.2 oz Microbiology Reports for the Last 24 Hours: Microbiology 07/08/24 09:46 Blood Blood Culture - Preliminary NO GROWTH AFTER 4 DAYS 07/08/24 09:40 Blood Blood Culture - Preliminary NO GROWTH AFTER 4 DAYS Constitutional: Present moderate distress Head: Present normocephalic and atraumatic ENT: Present normal exam, normal oropharynx and mucous membranes moist Neck: Present normal inspection and full ROM Respiratory: Present prolonged expiratory phase, respiratory distress, diminished air movement, able to speak in complete sentences and symmetric chest movement; Absent rhonchi, wheezes or crackles Cardiac: Present S1/S2, Tachycardia and radial pulses present GI: Present soft and distention; Absent tenderness or guarding Rectal (female): Present deferred (female): Present deferred Skin: Present intact; Absent cyanosis or jaundice Neuro: Present alert, awake and oriented x 3 Extremities: Present normal inspection; Absent clubbing or cyanosis Psychiatric: Present normal affect and cooperative Assessment and Plan *Assessment and plan (1) Pneumonia: Status: Acute Category: Medical Code(s): J18.9 - Pneumonia, unspecified organism (2) Acute and chronic respiratory failure with hypoxia: Status: Acute Category: Medical Code(s): J96.21 - Acute and chronic respiratory failure with hypoxia Plan Ms. Nascimento is a 83-year-old female presented to the hospital on 07/08/2024 with progressively worsening respiratory distress. Patient admission was noted to have hypercarbic respiratory failure, elevated BNP. Patient is and has been managed for COPD and CHF exacerbation along with pneumonia. Patient has been initiate noninvasive ventilatory therapy, eventually weaned to high flow nasal cannula supplementation. She continued to remain on Vapotherm since then and pulmonary was called for further evaluation and management. She continue to use CPAP therapy at night. No significant smoking history. Admits to history of allergic rhinitis and asthma. Blood gas upon admission on 07/08/2024 venous, hypercarbic respiratory failure with a pH of 7.22 and a pCO2 of 83.1. Chest x-ray upon admission bilateral diffuse patchy consolidative airspace disease, right greater than left. Repeat chest x-ray from this morning continued improvement in the noted airspace disease. Prior sputum cultures MSSA no sputum cultures available on this admission. Blood cultures no growth at 4 days. Neutrophilic predominant leukocytosis upon admission, improving. Patient has been receiving ceftriaxone and azithromycin since admission. However our patient's airspace disease and respiratory status has been gradually improving since admission. Will continue current management course. Interval update: No acute respiratory events overnight. Stable oxygen requirements. Leukocytosis mild, relatively stable from yesterday at 11.9. Afebrile. Hemodynamically stable. Chest x-ray from today continued improvement in the noted airspace disease from prior. Plan: Continue oxygen supplementation to maintain O2 saturation goal of 90% and above Continue ceftriaxone and azithromycin pending sputum culture results to complete a total of 10 day course. No need for prednisone at this point of time. Continue Advair 250 twice daily as scheduled. Continue DuoNebs only on as- needed basis. Incentive spirometry and flutter valve PT OT consult Patient also having frequent hospital admissions recently January and April s tatus posttreatment for pneumonia. No obvious consolidative changes noted on her CT scans on both admissions except for groundglass opacities. Will follow as an outpatient basis. # Thank you for involving pulmonary in this patient care. Patient can be discharged from pulmonary standpoint at this point of time to complete total of 10-day course of antibiotics. Will follow the patient in pulmonary clinic 2 to 3 weeks post discharge.
[2024-07-15 09:53] LABS: Basophils # 0.1 K/mm3 (0-0.2); Basophils % 0.4 % (0.1-2.0); Eosinophils # 0.1 K/mm3 (0.0-0.4); Eosinophils % 0.5 % (0.1-12.0); Hematocrit 38.4 % (37.0-47.0); Lymphocytes # 0.7 K/mm3 (0.7-4.5); Lymphocytes % 6.1 % (10-50); Mean Corpuscular HGB Conc 31.2 g/dL (31.8-35.4); Mean Corpuscular Hemoglobin 23.9 pg (27.0-31.2); Mean Corpuscular Volume 76.5 fl (81-99); Mean Platelet Volume 8.1 fl (7.4-10.4); Monocytes # 0.5 K/mm3 (0.1-1.0); Monocytes % 4.5 % (1.7-9.3); Neutrophils # 10.5 K/mm3 (1.8-7.8); Neutrophils % 88.5 % (37.0-80.0); Platelet Count 182 K/mm3 (142-424); Red Blood Count 5.02 M/mm3 (4.20-5.40); Red Cell Distribution Width 18.5 % (11.5-17.5); White Blood Count 11.9 K/mm3 (4.8-10.8)
[2024-07-15 09:55] LABS: MANUAL DIFFERENTIAL MANUAL DIFFERENTIAL (MANUAL DIFF)
[2024-07-15 10:02] LABS: Blood Urea Nitrogen 41 mg/dl (7-17); Calcium 7.6 mg/dl (8.4-10.2); Chloride 91 mmol/L (98-107); Creatinine Clearance Estimated 59 mL/min (50-200); Estimated Glomerular Filt Rate 68 ml/min (>60); GFR (African American) 82 ML/MIN (>60); Glucose 183 mg/dl (74-100); Potassium 3.9 mmoL/L (3.5-5.1); Sodium 138 mmol/L (136-145)
[2024-07-15 10:09] LABS: Anion Gap 13.9 mEq/L (5-15); Carbon Dioxide 37 mmol/L (22.0-30.0)
[2024-07-15 12:00] VITALS: BP 102/64; PULSE 63; RESP 18; TEMP 36.9; O2SAT 91
[2024-07-15] MEDS: humaLOG 100 UNITS/ML 10ML VIAL (SSI) SUBCUT ×2 (12:10→16:51)
--- NOTE | 2024-07-15 14:35 | P.DS_ITS ---
General Admission date:: 07/08/24 Discharge date: 07/15/24 HPI HPI HPI: This is an ill-appearing 83-year-old female presenting with shortness of patient has hyper, hyperlipidemia, hypoxemia likely secondary to restrictive lung disease and obesity, CHF, COPD, diabetes presenting with shortness of breath. Patient states that she has been feeling short of breath since yesterday, 1112 in the PM. Got worse throughout the night. Did not wear her CPAP overnight because she did not want to. EMS was called today because she was having difficulty breathing. On arrival, EMS states that she was in the 70%. Given DuoNebs, brought immediately to the emergency department. On arrival, patient speaking in partial 1-2 word sentences, increased accessory muscle use use, prolonged expiratory phase, minimal breath sounds bilaterally, but isolated wheezes on the right. No fevers or chills, nausea or vomiting, or any other concerns. History was obtained via conversation with patient and EMS. On arrival, patient hemodynamically stable, alert, oriented x4, appropriate, GCS 15, moving all extremities spontaneously, pupils equal and reactive to light. Full physical exam performed and significant for patient is ill-appearing. Prolonged expiratory phase, tachypneic, speaking in 1-2 word sentences. Moderate respiratory distress. Minimal breath sounds and minimal air movement bilaterally, primarily on the left. Patient has isolated wheezes throughout on the right. Periorbital edema, patient is able to open her eyes. No evidence of cyanosis. Abdomen soft, nontender, nondistended. No lower extremity edema. Differential includes COPD exacerbation, CHF exacerbation, ACS, [place], pulmonary edema, pleural effusions, pneumonia, bronchitis, among others. Patient was given DuoNebs, Solu-Medrol, BiPAP for symptomatic management and correction of underlying abnormalities. Patient placed on continuous cardiac monitoring and continuous pulse ox with initial blood pressure 173/63, heart rate C2, saturation 95% on BiPAP 50% FiO2 18/10. Independent interpretation of EKG shows what appears to be sinus versus ectopic atrial rhythm 61 beats a minute. [place] 193, QRS 137, QTc 471. IV magnesium given. On independent interpretation of imaging, patient has bilateral pleural effusions, pulmonary edema, right middle lobe consolidation. See radiology read for full review of final results. Patient given empiric antibiotics as well as 60 mg IV Lasix. Heart score 5. Independent interpretation of workup with leukocytosis neutrophilia. VBG with hypercapnic respiratory failure with lactate 2.2. Patient's BNP elevated at 12,500. Patient's primary care doctor was contacted and interactive discussion was had, patient to be admitted. Patient appears to be in mixed respiratory failure hypercapnic and hypoxemic in the setting of COPD and CHF exacerbation with pneumonia. Because patient high risk for clinical decompensation, deemed appropriate for inpatient admission. Results were relayed to patient and family who voiced understanding and patient was agreeable to inpatient admission and management. Patient was admitted to the hospital for further definitive management. (above as per ER physician) Further to above, patient was just recently discharged from [facility] after a stay for left ankle/foot pain and was discharged to [facility] for rehab. She is only minimally responsive but does deny any pain. Hospital Course Hospital Course Hospital Course: The patient was admitted and started on BiPAP, antibiotics, and Lasix. A respiratory panel was ordered as well and was negative. The patient did become more awake and alert. She was weaned off of the BiPAP and placed on Vapotherm. Her blood culture showed no growth at 48 hours. Her potassium was replaced and she was given Lasix. She was also started on sliding scale insulin. She continued with left ankle pain and had difficulty bearing weight on it. It took numerous people to help get her up in the chair. She diuresed well with Lasix and felt less short of breath. She was wearing her CPAP at night with humidity. She was unable to be weaned off of the Vapotherm. Pulmonology was therefore consulted. PT and OT were also consulted. The java flex developer felt she should continue the Rocephin and Zithromax for 7 to 10-day course as well as DuoNebs every 6 hours and oxygen supplementation to keep her saturation goal above 90%. He also ordered incentive spirometry with a flutter valve. He did not see any obvious consolidative changes on her CT scans except for groundglass opacities. He wanted to follow-up with her on an outpatient basis. She was finally able to be weaned off of her Vapotherm with adequate oxygen saturations on 3 L nasal cannula. She was able to sit up in a chair with the help from physical therapy it was felt she would need intermediate care for rehabilitation. The java flex developer initiated Advair 250 mg twice a day and felt she could be weaned off of her oral steroids. By 07/15/2024 she was stable to be discharged to [facility] for continued rehab. She will remain on nasal oxygen and will also need her CPAP at night. Exam Data for Last 24 hours Vital signs and Labs for Last 24 Hours: Temp Pulse Resp BP Pulse Ox O2 Del Method O2 Flow Rate 98.5 F 63 18 102/64 L 91 L Nasal Cannula 3 07/15/24 12:00 07/15/24 12:00 07/15/24 12:00 07/15/24 12:00 07/15/24 12:00 07/15/24 12:00 07/15/24 12:00 FiO2 32 07/14/24 18:18 Laboratory Results - last 24 hr 07/14/24 16:24: POC Glucose 233 H 07/14/24 20:39: POC Glucose 292 H 07/15/24 08:30: POC Glucose 220 H 07/15/24 09:39: WBC 11.9 H, RBC 5.02, Hgb 12.0 L, Hct 38.4, MCV 76.5 L, MCH 23.9 L, MCHC 31.2 L, RDW 18.5 H, Plt Count 182, MPV 8.1, Neut % (Auto) 88.5 H, Lymph % (Auto) 6.1 L, [place] % (Auto) 4.5, Eos % (Auto) 0.5, Baso % (Auto) 0.4, Neut # (Auto) 10.5 H, Lymph # (Auto) 0.7, [place] # (Auto) 0.5, Eos # (Auto) 0.1, Baso # (Auto) 0.1, Sodium 138, Potassium 3.9, Chloride 91 L, Carbon Dioxide 37 H, Anion Gap 13.9, BUN 41 H, Creatinine 0.80, Estimated Creat Clear 59, Estimated GFR 68, Est GFR ( Amer) 82, Glucose 183 H, Calcium 7.6 L I & O for Last 24 hours: Intake & Output 07/13/24 07/14/24 07/15/24 07/16/24 11:59 11:59 11:59 11:59 Intake Total 1120 / 1120 930 / 930 870 / 870 270 / 270 Output Total 2200 / 2200 2100 / 2100 1050 / 1050 800 / 800 Balance -1080 / -1080 -1170 / -1170 -180 / -180 -530 / -530 Weight 208 lb 3.2 oz 207 lb 8 oz 201 lb 9.6 oz Narrative: Constitutional Constitutional: mild distress (can shake head yes and no to questioning) *Routine HEENT Exam Head: Present normocephalic Eye: Present EOMI and PERRL ENT: Present mucous membranes dry *Routine Neck Exam Neck: Present supple *Routine Respiratory Exam Respiratory: Present decreased breath sounds (BIPAP in place) *Routine Cardiovascular Exam Cardiovascular: Present RRR *Routine Abdominal Exam Abdominal: Present soft and normoactive bowel sounds; Absent tenderness *Routine Rectal Exam Rectal:: deferred *Routine Genitalia Exam Genitalia:: deferred *Routine Extremities Exam Extremities: Present edema (bilateral LE's) *Routine Skin Exam Skin: Present intact *Routine Neurological Exam Neurological: Present altered mental status (able to answer yes and no questions) Results Data Completed and Pending Labs on day of discharge: Labs from last 24 hours 07/15/24 07/15/24 07/14/24 09:39 08:30 20:39 WBC 11.9 H RBC 5.02 Hgb 12.0 L Hct 38.4 MCV 76.5 L MCH 23.9 L MCHC 31.2 L RDW 18.5 H Plt Count 182 MPV 8.1 Neut % (Auto) 88.5 H Lymph % (Auto) 6.1 L [place] % (Auto) 4.5 Eos % (Auto) 0.5 Baso % (Auto) 0.4 Neut # (Auto) 10.5 H Lymph # (Auto) 0.7 [place] # (Auto) 0.5 Eos # (Auto) 0.1 Baso # (Auto) 0.1 Sodium 138 Potassium 3.9 Chloride 91 L Carbon Dioxide 37 H Anion Gap 13.9 BUN 41 H Creatinine 0.80 Estimated Creat Clear 59 Estimated GFR 68 Est GFR ( Amer) 82 Glucose 183 H POC Glucose 220 H 292 H Calcium 7.6 L 07/14/24 16:24 WBC RBC Hgb Hct MCV MCH MCHC RDW Plt Count MPV Neut % (Auto) Lymph % (Auto) [place] % (Auto) Eos % (Auto) Baso % (Auto) Neut # (Auto) Lymph # (Auto) [place] # (Auto) Eos # (Auto) Baso # (Auto) Sodium Potassium Chloride Carbon Dioxide Anion Gap BUN Creatinine Estimated Creat Clear Estimated GFR Est GFR ( Amer) Glucose POC Glucose 233 H Calcium DS: Diagnosis Discharge Diagnosis (1) Pneumonia: Status: Acute Code(s): J18.9 - Pneumonia, unspecified organism (2) Sepsis: Status: Acute Code(s): A41.9 - Sepsis, unspecified organism (3) Acute hypercapnic respiratory failure: Status: Acute Code(s): J96.02 - Acute respiratory failure with hypercapnia (4) Acute hypoxemic respiratory failure: Status: Acute Code(s): J96.01 - Acute respiratory failure with hypoxia (5) Ankle pain: Status: Acute Code(s): M25.579 - Pain in unspecified ankle and joints of unspecified foot (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 Code(s): M21.962 - Unspecified acquired deformity of left lower leg (7) Left ankle instability: Status: Acute Code(s): M25.372 - Other instability, left ankle (8) General weakness: Status: Acute Code(s): R53.1 - Weakness (9) Hypertension: Status: Acute Code(s): I10 - Essential (primary) hypertension (10) Neuropathy: Status: Acute Code(s): G62.9 - Polyneuropathy, unspecified (11) Depression: Status: Acute Code(s): F32.A - Depression, unspecified (12) GERD (gastroesophageal reflux disease): Status: Acute Code(s): K21.9 - Gastro-esophageal reflux disease without esophagitis (13) Hyperlipidemia: Status: Acute Code(s): E78.5 - Hyperlipidemia, unspecified (14) DM type 2 (diabetes mellitus, type 2): Status: Acute Code(s): E11.9 - Type 2 diabetes mellitus without complications (15) Hypokalemia: Status: Acute Code(s): E87.6 - Hypokalemia Meds Home Medications and Allergies Home Medications ?Medication ?Instructions ?Recorded ?Confirmed ?Type metformin 500 mg tablet 500 mg PO BIDWMEAL 03/06/18 07/28/24 History montelukast 10 mg tablet 10 mg PO DAILY 03/06/18 07/28/24 History simvastatin 20 mg tablet 20 mg PO HS 03/06/18 07/28/24 History escitalopram oxalate 20 mg tablet 20 mg PO DAILY 11/10/23 07/28/24 History fluticasone 250 mcg-salmeterol 50 1 ea inhalation BID 11/10/23 07/28/24 History mcg/dose blistr powdr for inhalation (Wixela Inhub) oxybutynin chloride 10 mg 20 mg PO DAILY 11/10/23 07/28/24 History tablet,extended release 24 hr magnesium oxide 400 mg (241.3 mg 400 mg PO DAILY 02/20/24 07/28/24 History magnesium) tablet furosemide 20 mg tablet (Lasix) 20 mg PO DAILY #30 tabs 02/25/24 07/28/24 Rx irbesartan 300 mg tablet 300 mg PO DAILY #30 tabs 02/25/24 07/28/24 Rx amlodipine 5 mg tablet 5 mg PO DAILY 05/09/24 07/28/24 History esomeprazole magnesium 40 mg 40 mg PO DAILY 05/09/24 07/28/24 History capsule,delayed release metoprolol succinate 50 mg 50 mg PO DAILY 05/09/24 07/28/24 History tablet,extended release 24 hr tizanidine 2 mg tablet 2 mg PO HSP PRN Muscle Pain 05/09/24 07/28/24 History azelastine 137 mcg (0.1 %) nasal 2 spray intranasal DAILY 05/12/24 07/28/24 History spray fluticasone propionate 50 2 spray intranasal DAILY 05/12/24 07/28/24 History mcg/actuation nasal spray,suspension olopatadine 0.7 % eye drops 1 drp ophthalmic (eye) DAILY 05/12/24 07/28/24 History (Pataday Once Daily Relief) bismuth subsalicylate 262 mg tablet 262 mg PO DAILYP PRN indigestion/ 07/08/24 07/28/24 History upset stomach calcium carbonate (Calcium 600) 600 mg PO DAILY 07/08/24 07/28/24 History cholecalciferol (vitamin D3) 25 25 mcg PO DAILY 07/08/24 07/28/24 History mcg (1,000 unit) tablet (Vitamin D3) cinnamon bark 500 mg capsule 1,000 mg PO DAILY 07/08/24 07/28/24 History (Cinnamon) famotidine 20 mg tablet 20 mg PO DAILY 07/08/24 07/28/24 History glucosamine sulfate 2KCl 1,000 mg 1,000 mg PO DAILY 07/08/24 07/28/24 History tablet hydroxyzine HCl 25 mg tablet 25 mg PO TIDP PRN Anxiety 07/08/24 07/28/24 History mecobalamin (vitamin B12) 1,000 3,000 mcg PO DAILY 07/08/24 07/28/24 History mcg chewable tablet (B12 Active) multivitamin 1 tab PO DAILY 07/08/24 07/28/24 History vit C 250 mg-vit E 90 mg-zinc 40 1 tab PO BID 07/08/24 07/28/24 History mg-copper 1 [id number] capsule (PreserVision AREDS-2) Bifidobacterium infantis 4 mg 4 mg PO DAILY #30 caps 07/15/24 07/28/24 Rx capsule (Align) azithromycin 500 mg tablet 500 mg PO DAILY 3 days #3 tabs 07/15/24 07/28/24 Rx (Zithromax) cefdinir 300 mg capsule 300 mg PO BID 5 days #10 caps 07/15/24 07/28/24 Rx pregabalin 75 mg capsule (Lyrica) 75 mg PO BID #60 caps 07/15/24 07/28/24 Rx New Prescriptions to Start Prescriptions: azithromycin [Zithromax] Malone,Allan Bifidobacterium infantis [Align] Malone,Allan cefdinir Malone,Lalan pregabalin [Lyrica] Malone,Allan Allergies Allergy/AdvReac Type Severity Reaction Status Date / Time pollen extracts (POLLEN Allergy Intermediate ASTHMA Verified 07/28/24 13:07 EXTRACTS) Discharge Plan Disposition Patient Disposition: Xfer SNF Condition: Fair Discharge Order Discharge Orders: Discharge Order (Routine); Ordered 07/15/24 Ordered By: Allan Adamson Follow up Plan Follow up with: Federico Morris MD [Physician] - 07/28/24 1:00 pm Prescriptions/Medication Reconciliation: New azithromycin [Zithromax] 500 mg tablet 500 mg PO DAILY 3 Days Qty: 3 0RF cefdinir 300 mg capsule 300 mg PO BID 5 Days Qty: 10 0RF Align 4 mg capsule 4 mg PO DAILY Qty: 30 0RF Continued fluticasone propion-salmeterol [Wixela Inhub] 250-50 mcg/dose blister with device 1 ea INHALATION BID oxybutynin chloride 10 mg tablet extended release 24hr 20 mg PO DAILY Patient Comments: TAKE 2 TABLETS BY MOUTH ONCE DAILY escitalopram oxalate 20 mg tablet 20 mg PO DAILY Patient Comments: TAKE 1 TABLET BY MOUTH ONCE DAILY magnesium oxide 400 mg (241.3 mg magnesium) tablet 400 mg PO DAILY Patient Comments: TAKE 1 TABLET BY MOUTH ONCE DAILY irbesartan 300 mg Tablet 300 mg PO DAILY Qty: 30 0RF furosemide [Lasix] 20 mg tablet 20 mg PO DAILY Qty: 30 0RF calcium carbonate [Calcium 600] 600 mg calcium (1,500 mg) Tablet 600 mg PO DAILY hydroxyzine HCl 25 mg Tablet 25 mg PO TIDP PRN (Reason: Anxiety) PreserVision AREDS-2 250-90-40-1 mg Capsule 1 tab PO BID multivitamin Tablet 1 tab PO DAILY famotidine 20 mg Tablet 20 mg PO DAILY bismuth subsalicylate 262 mg Tablet 262 mg PO DAILYP PRN (Reason: indigestion/ upset stomach ) cinnamon bark [Cinnamon] 500 mg Capsule 1,000 mg PO DAILY glucosamine sulfate 2KCl 1,000 mg Tablet 1,000 mg PO DAILY Rx Instructions: administer with meals cholecalciferol (vitamin D3) [Vitamin D3] 25 mcg (1,000 unit) Tablet 25 mcg PO DAILY mecobalamin (vitamin B12) [B12 Active] 1,000 mcg Tablet,Chewable 3,000 mcg PO DAILY pregabalin [Lyrica] 75 capsule 75 mg PO BID Qty: 60 0RF metformin 500 MG tablet 500 mg PO BIDWMEAL simvastatin 20 tablet 20 mg PO HS montelukast 10 MG tablet 10 mg PO DAILY metoprolol succinate 50 mg tablet extended release 24 hr 50 mg PO DAILY Patient Comments: TAKE 1 TABLET BY MOUTH ONCE DAILY amlodipine 5 mg tablet 5 mg PO DAILY Patient Comments: TAKE 1 TABLET BY MOUTH ONCE DAILY esomeprazole magnesium 40 mg capsule,delayed release(DR/EC) 40 mg PO DAILY tizanidine 2 mg tablet 2 mg PO HSP PRN (Reason: Muscle Pain) azelastine 137 mcg (0.1 %) [place],Non-Aerosol 2 spray INTRANASAL DAILY Rx Instructions: administer into each nostril fluticasone propionate 50 mcg/actuation [place],Suspension 2 spray INTRANASAL DAILY Rx Instructions: administer into each nostril Pataday Once Daily Relief 0.7 % Drops 1 drp OPHTHALMIC (EYE) DAILY Rx Instructions: apply 1 drop to the affected eye once daily Problem Reconciliation Problems Reviewed?: Yes Patient Discharge Instructions Additional Instructions: Supplemental oxygen at 3 L/min, please check CBC and BMP in 1 week. Patient Instructions: DI for Pneumonia -- Adult, DI for Sepsis -- Adult, DI for Respiratory Failure Print Language: [place] Citizen Providers Primary Care Provider: Allan Adamson Admit Provider: Allan Adamson Attending Provider: Allan Adamson
[2024-07-15 14:45] LABS: Lymphocytes % 13 % (10-50); Monocytes % 1 % (2-9); Neutrophils % 86 % (42-76); Total Cells Counted 100
[2024-07-15 14:46] LABS: Hypochromasia 2+; Platelet Estimate Normal
[2024-07-15 17:00] LABS: POC Glucose,Bedside 175 (70-110)
[2024-07-15 17:00] LABS: POC Glucose,Bedside 196 (70-110)
[2024-07-15 19:13] LABS: POC Glucose,Bedside 111 (70-110)
== END 2024-07-15 17:29 | DRG 871 ==
LOC: ER 09:39 → 2ND 13:14
PROVIDERS: Nurse Practitioner Family; Physician Assistant; Admitting Provider Family Medicine; Emergency Provider Emergency Medicine; PCP Family Medicine; Visit Provider Family Medicine
DX: A41.9 Sepsis, unspecified organism (principal); J18.9 Pneumonia, unspecified organism; J96.02 Acute respiratory failure with hypercapnia; J96.01 Acute respiratory failure with hypoxia; N17.9 Acute kidney failure, unspecified; I10 Essential (primary) hypertension; G62.9 Polyneuropathy, unspecified; F32.A Depression, unspecified; K21.9 Gastro-esophageal reflux disease without esophagitis; E87.6 Hypokalemia; E78.5 Hyperlipidemia, unspecified; E11.9 Type 2 diabetes mellitus without complications; E66.9 Obesity, unspecified; Z68.32 Body mass index [BMI] 32.0-32.9, adult; N18.9 Chronic kidney disease, unspecified; Z96.612 Presence of left artificial shoulder joint; Z96.611 Presence of right artificial shoulder joint; Z79.84 Long term (current) use of oral hypoglycemic drugs
CPT/HCPCS: 36415; 51702; 71045; 80048; 80053; 81001; 82803; 82962; 83605; 83880; 84484; 85007; 85025; 85610; 85730; 87040; 87633; 93005; 94640; 94660; 94667; 94760; 94761; 97110; 97163; 97530; 99291; J0456; J0696; J1650; J1940; J2919; J3475; J3480; J7050; J7620; S0028

== ENCOUNTER 2024-08-08 07:00 | Inpatient (IN) | payer MEDICARE, BC, SELFPAY ==
[2024-08-08] VITALS (12 sets, daily range): BP systolic 111–176; BP diastolic 44–81; PULSE 75–95; RESP 16–28; TEMP 36.7–39.5; O2SAT 90–97; BMI 32.8
--- NOTE | 2024-08-08 06:58 | ECG_ITS ---
APPROVED REPORT Exam: Resting ECG HR:96 bpm ECG Measurements Heart Rate 96 AXES [place] 194 P 36 QRSd 134 QRS 85 QT 365 T 34 QTc 419 Conclusion SINUS RHYTHM RIGHT BUNDLE BRANCH BLOCK [120+ ms QRS DURATION, UPRIGHT V1, 40+ ms S IN I/aVL/V4/V5/V6] Electronically signed by : SAGAR LOJA, 08/08/2024 16:08:13
--- NOTE | 2024-08-08 07:03 | XR_ITS ---
PROCEDURE INFORMATION: Exam: XR Chest Exam date and time: 08/08/2024 7:05 AM Age: 83 years old Clinical indication: Shortness of breath; Additional info: SOA TECHNIQUE: Imaging protocol: Radiologic exam of the chest. Views: 1 view. COMPARISON: CR XR CHEST PORTABLE 07/15/2024 9:39 AM FINDINGS: Lungs: Mild opacities in the bases have exacerbated since the prior study and may represent atelectasis or pneumonia.. Pleural spaces: There may be mild left pleural effusion.. Heart/Mediastinum: Stable cardiomegaly Bones/joints: Unremarkable. IMPRESSION: 1. Mild opacities in the bases have exacerbated since the prior study and may represent atelectasis or pneumonia.. 2. There may be mild left pleural effusion..
--- NOTE | 2024-08-08 07:04 | [facility].EDCP ---
Discharge Plan Disposition Patient Disposition: Admitted Condition: Fair Clinical Impressions Clinical Impression: Sepsis due to pneumonia, Acute and chronic respiratory failure, Hypomagnesemia, Acute exacerbation of chronic obstructive pulmonary disease, Lymphadenopathy, mediastinal, Gallstone Discharge ED Provider: Claudia Henderson HPI General Chief Complaint: Shortness of Breath/Dyspnea Stated Complaint: SOA, hx of pnuemonia Time Seen by Provider: 08/08/24 07:02 History of Present Illness HPI narrative: This patient is an 83-year-old female with a history of pulmonary emphysema on 3 L nasal cannula at baseline, recurrent pneumonia, mild persistent asthma, prior tobacco use, GERD presenting to the emergency department for evaluation concern for shortness of breath. Patient reports that she was feeling fine when she went to bed last night woke up this morning feeling acutely short of air. EMS notes they were called to [place] where the patient is a resident and patient was noted to be 78% on her home 3 L nasal cannula. She reports that she woke up this morning feeling like she could not breathe. No fevers, chills, chest pain, abdominal pain, or other concerns noted. She does complain of shortness of breath and cough this morning. Related Data Home Medications ?Medication ?Instructions ?Recorded ?Confirmed metformin 500 mg tablet 500 mg PO BIDWMEAL 03/06/18 08/08/24 montelukast 10 mg tablet 10 mg PO DAILY 03/06/18 08/08/24 simvastatin 20 mg tablet 20 mg PO HS 03/06/18 08/08/24 escitalopram oxalate 20 mg tablet 20 mg PO DAILY 11/10/23 08/08/24 fluticasone 250 mcg-salmeterol 50 1 ea inhalation BID 11/10/23 08/08/24 mcg/dose blistr powdr for inhalation (Wixela Inhub) oxybutynin chloride 10 mg 20 mg PO DAILY 11/10/23 08/08/24 tablet,extended release 24 hr magnesium oxide 400 mg (241.3 mg 400 mg PO DAILY 02/20/24 08/08/24 magnesium) tablet amlodipine 5 mg tablet 5 mg PO DAILY 05/09/24 08/08/24 esomeprazole magnesium 40 mg 40 mg PO DAILY 05/09/24 08/08/24 capsule,delayed release metoprolol succinate 50 mg 50 mg PO DAILY 05/09/24 08/08/24 tablet,extended release 24 hr tizanidine 2 mg tablet 2 mg PO HSP PRN Muscle Pain 05/09/24 08/08/24 azelastine 137 mcg (0.1 %) nasal 2 spray intranasal DAILY 05/12/24 08/08/24 spray fluticasone propionate 50 2 spray intranasal DAILY 05/12/24 08/08/24 mcg/actuation nasal spray,suspension olopatadine 0.7 % eye drops 1 drp ophthalmic (eye) DAILY 05/12/24 08/08/24 (Pataday Once Daily Relief) bismuth subsalicylate 262 mg tablet 262 mg PO DAILYP PRN indigestion/ 07/08/24 08/08/24 upset stomach calcium carbonate (Calcium 600) 600 mg PO DAILY 07/08/24 08/08/24 cholecalciferol (vitamin D3) 25 25 mcg PO DAILY 07/08/24 08/08/24 mcg (1,000 unit) tablet (Vitamin D3) cinnamon bark 500 mg capsule 1,000 mg PO DAILY 07/08/24 08/08/24 (Cinnamon) famotidine 20 mg tablet 20 mg PO DAILY 07/08/24 08/08/24 glucosamine sulfate 2KCl 1,000 mg 1,000 mg PO DAILY 07/08/24 08/08/24 tablet mecobalamin (vitamin B12) 1,000 3,000 mcg PO DAILY 07/08/24 08/08/24 mcg chewable tablet (B12 Active) multivitamin 1 tab PO DAILY 07/08/24 08/08/24 vit C 250 mg-vit E 90 mg-zinc 40 1 tab PO BID 07/08/24 08/08/24 mg-copper 1 [id number] capsule (PreserVision AREDS-2) furosemide 40 mg tablet 40 mg PO DAILY 08/08/24 08/08/24 Previous Rx's ?Medication ?Instructions ?Recorded irbesartan 300 mg tablet 300 mg PO DAILY #30 tabs 02/25/24 Bifidobacterium infantis 4 mg 4 mg PO DAILY #30 caps 07/15/24 capsule (Align) pregabalin 75 mg capsule (Lyrica) 75 mg PO BID #60 caps 07/15/24 Allergies Allergy/AdvReac Type Severity Reaction Status Date / Time pollen extracts (POLLEN Allergy Intermediate ASTHMA Verified 07/28/24 13:07 EXTRACTS) PFSH PFSH Disclaimer: The information contained in this section may have been updated after the patient was seen, as this information can be updated by other users. Medical History Pulmonary emphysema Chronic respiratory failure with hypoxia Recurrent pneumonia Acute and chronic respiratory failure with hypoxia Lumbar radiculopathy Degenerative disc disease, lumbar Paratracheal lymphadenopathy CAP (community acquired pneumonia) RICHIE (acute kidney injury) Hypertensive urgency Elevated brain natriuretic peptide (BNP) level Hypertensive emergency CKD (chronic kidney disease) stage 3, GFR 30-59 ml/min Pneumonia Allergic rhinitis Colon polyps Hemorrhoids, internal Osteoporosis Herpes zoster Closed left ankle fracture Closed left hip fracture Lumbar spinal stenosis Lumbar compression fracture Ocular melanoma COPD (chronic obstructive pulmonary disease) Mediastinal lymphadenopathy Sleep apnea Asthma Hyperlipidemia Neuropathy Depression GERD (gastroesophageal reflux disease) Arthritis Hypertension Diabetes Surgical History History of right knee joint replacement History of left knee replacement History of left hip replacement History of left ankle joint replacement 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 History of arthroplasty of right knee History of appendectomy Family History Other Heart attack Social History (Updated 08/08/24 @ 10:42 by Loni Farmer RN) Smoking Status: Unknown if ever smoked alcohol intake: never substance use type: denies use current occupational status: other Travel in the last 8 weeks: None household members: none caffeine: Yes Have you lived/traveled outside US in past 30 days?: No Contact w/someone who lives/traveled outside US past 30 days?: No Exposure to someone with infectious disease in past 14 days?: No Do you have a fever (greater than 100.4 F or 38 C)?: No Have you tested positive for COVID-19: No Exposed to someone with COVID-19 in past 14 days?: No Do you have a sore throat?: No Do you have a cough?: Yes Do you have any weakness?: Yes Do you have any diarrhea?: No Are you experiencing any unusual bleeding?: No Do you have any muscle aches/pain?: No Do you have any abdominal pain?: No Are you experiencing loss of taste or smell?: No Other Medical History Have you received the Flu Vaccine for this season: No Have you received the Pneumonia Vaccine: Yes ROS Obtained: Yes All systems reviewed & no additional complaints except as documented Physical Exam General General appearance: alert, in distress and obese Head Head exam: atraumatic and normocephalic Eye Eye exam: Present normal appearance, PERRL and EOMI ENT ENT exam: Present normal exam, normal oropharynx, mucous membranes moist and normal external ear exam Neck Neck exam: Present normal inspection, full ROM and trachea midline; Absent tenderness Chest Chest inspection: Present normal inspection and symmetric chest wall rise; Absent tenderness Respiratory Respiratory exam: Present respiratory distress, wheezes, accessory muscle use and prolonged expiratory phase; Absent stridor Cardiovascular Cardiovascular exam: Present regular rate and normal rhythm Abdominal Exam Abdominal exam: Present soft; Absent distention, tenderness or guarding Extremities Exam Extremities exam: Present full ROM, normal capillary refill and edema (Symmetric bilateral lower extremity edema with venous stasis changes to lower extremities, chronic deformity of left lower leg); Absent tenderness Back Exam Back exam: Present normal inspection and full ROM; Absent tenderness Neurological Exam Neurological exam: Present alert, oriented X3 and CN II-XII intact; Absent motor sensory deficit Psychiatric Psychiatric exam: Present normal affect and normal mood Skin Skin exam: Present warm and dry HEART Score HEART Score HEART Score assessment performed?: Yes History (anamnesis): Slightly suspicious ECG: Normal Age: >65 years Risk factors: 3 or more risk factors Troponin: </= normal limit HEART Score: 4 Critical Care Critical Care Time Critical Care Time: Yes Attestation: On 08/08/24, the high probability of a clinically significant, sudden or life threatening deterioration of the following system(s) required my full and direct attention, intervention and personal management. The time I documented below is in addition to time spent performing reported procedures but includes the following listed in this critical care notation. Total Time Total Critical Care Time: 30 Medical Decision Making Gabriele Inquiry Pt receiving controlled substance: No Vital Signs Vital Signs: 08/08/24 07:00 08/08/24 07:30 08/08/24 08:00 Temperature 103.1 F H Temperature Source Axillary Pulse Rate 93 H Pulse Rate [Left Radial] 93 H Respiratory Rate 28 H 24 27 H Blood Pressure 126/52 L 120/49 L Blood Pressure [Right Arm] 141/59 H Blood Pressure Mean 82 Blood Pressure Mean [Right Arm] 86 Blood Pressure Source [Right Arm] Automatic Cuff Blood Pressure Position Blood Pressure Position [Right Arm] Sitting 02 Sat by Pulse Oximetry 91 L 95 97 Oxygen Delivery Method Oxygen Flow Rate (LPM) 15 08/08/24 08:31 08/08/24 09:01 08/08/24 09:23 Temperature 101.0 F H Temperature Source Rectal Pulse Rate 90 95 H Pulse Rate [Left Radial] Respiratory Rate 27 H 24 Blood Pressure 116/47 L 124/44 L Blood Pressure [Right Arm] Blood Pressure Mean Blood Pressure Mean [Right Arm] Blood Pressure Source [Right Arm] Blood Pressure Position Blood Pressure Position [Right Arm] 02 Sat by Pulse Oximetry 95 90 L Oxygen Delivery Method Oxygen Flow Rate (LPM) 15 15 08/08/24 10:15 08/08/24 10:30 08/08/24 10:34 Temperature 100.4 F H Temperature Source Axillary Pulse Rate 85 85 85 Pulse Rate [Left Radial] Respiratory Rate 16 20 20 Blood Pressure 150/61 H 176/81 H 176/81 H Blood Pressure [Right Arm] Blood Pressure Mean Blood Pressure Mean [Right Arm] Blood Pressure Source [Right Arm] Blood Pressure Position Sitting Blood Pressure Position [Right Arm] 02 Sat by Pulse Oximetry 90 L 90 L Oxygen Delivery Method Venturi Mask Oxygen Flow Rate (LPM) 15 15 15 08/08/24 11:00 Temperature Temperature Source Pulse Rate 84 Pulse Rate [Left Radial] Respiratory Rate 20 Blood Pressure 166/75 H Blood Pressure [Right Arm] Blood Pressure Mean 105 Blood Pressure Mean [Right Arm] Blood Pressure Source [Right Arm] Blood Pressure Position Blood Pressure Position [Right Arm] 02 Sat by Pulse Oximetry 95 Oxygen Delivery Method Oxygen Flow Rate (LPM) Lab Data Labs: Lab Results 08/08/24 07:00: WBC 10.7, RBC 4.26, Hgb 10.8 L, Hct 33.6 L, MCV 78.9 L, MCH 25.3 L, MCHC 32.1, RDW 21.2 H, Plt Count 199, MPV 8.4, Neut % (Auto) 78.3, Lymph % (Auto) 11.9, [place] % (Auto) 7.3, Eos % (Auto) 1.5, Baso % (Auto) 1.0, Neut # (Auto) 8.4 H, Lymph # (Auto) 1.3, [place] # (Auto) 0.8, Eos # (Auto) 0.2, Baso # (Auto) 0.1, D-Dimer 1.59 H, Sodium 141, Potassium 4.9, Chloride 101, Carbon Dioxide 36 H, Anion Gap 8.9, BUN 27 H, Creatinine 1.30 H, Estimated Creat Clear 46, Estimated GFR 39 L, Est GFR ( Amer) 47 L, Glucose 165 H, Lactate 1.8, Calcium 8.4, Magnesium 0.8 L, Total Bilirubin 0.7, AST 32, ALT 16, Alkaline Phosphatase 88, Troponin I 0.03, C-Reactive Protein 20.6 H, NT-Pro-B Natriuret Pep 958 H, Total Protein 6.3, Albumin 3.4 L, Globulin 2.9, Albumin/Globulin Ratio 1.2, Procalcitonin 0.131, TSH 0.53, Thyroxine (T4) 11.0 08/08/24 07:02: VBG pH 7.41, VBG pCO2 53.0 H, VBG pO2 100.9 H, VBG HCO3 32.5 H, VBG Total CO2 34.2 H, VBG O2 Saturation 97.7 H, VBG Base Excess 7.8 H, VBG Lactic Acid 2.9 H 08/08/24 08:34: Urine Color Yellow, Urine Appearance Clear, Urine pH 8.0, Ur Specific [place] 1.015, Urine Protein Negative, Urine Glucose (UA) Negative, Urine Ketones Negative, Urine Blood Negative, Urine Nitrate Negative, Urine Bilirubin Negative, Urine Urobilinogen 0.2, Ur Leukocyte Esterase Negative, Urine RBC None, Urine WBC None, Ur Squamous Epith Cells 3-5, Urine Bacteria None, SARS-CoV-2 (PCR) Not detected, Influenza A Untype (PCR) Not detected, Influenza Type B (PCR) Not detected 08/08/24 10:11: Chlamy pneumoniae PCR Not detected, Adenovirus (PCR) Not detected, B. pertussis DNA (PCR) Not detected, Coronavirus OC43 (PCR) Not detected, Coronavirus HKU1 (PCR) Not detected, Coronavirus 229E (PCR) Not detected, SARS-CoV-2 (PCR) Not detected, Coronavirus NL63 (PCR) Not detected, Human Metapneumovir PCR Not detected, Influenza A (H1) PCR Not detected, Influ A (H1N1/09) PCR Not detected, Influenza A (H3) PCR Not detected, Influenza Type A (PCR) Not detected, Influenza Type B (PCR) Not detected, M. pneumoniae (PCR) Not detected, Parainfluenza 1 (PCR) Not detected, Parainfluenza 2 (PCR) Not detected, Parainfluenza 3 (PCR) Not detected, Parainfluenza 4 (PCR) Not detected, RSV (PCR) Not detected, Entero/Rhino (PCR) Not detected 08/08/24 07:00 08/08/24 07:00 Response Orders (Tests/Meds): ED MEDICATIONS Generic Name Dose Route Start Last Admin Trade Name Freq PRN Reason Stop Dose Admin Acetaminophen 650 mg 08/08/24 10:12 Acetaminophen 325mg Tab PO 09/07/24 10:11 Q6HP PRN Fever or Mild Pain (1-3) Amlodipine Besylate 5 mg 08/09/24 09:00 Amlodipine 5mg Tablet PO 09/08/24 08:59 DAILY [facility] Azelastine HCl 0 mcg 08/09/24 09:00 Azelastine Nasal [place] 30ml Bottle NS 09/08/24 08:59 DAILY [facility] Calcium Carbonate 500 mg 08/09/24 09:00 Oyster Shell Calcium (Elemental) 500mg Tab PO 09/08/24 08:59 DAILY [facility] Citalopram Hydrobromide 40 mg 08/09/24 09:00 Citalopram 40mg Tablet PO 09/08/24 08:59 DAILY [facility] Famotidine 20 mg 08/09/24 09:00 Famotidine 20mg Tablet PO 09/08/24 08:59 DAILY [facility] Fluticasone Propionate 2 spray 08/09/24 09:00 Fluticasone Prop 50mcg Nasal [place] 16gm NS 09/08/24 08:59 DAILY [facility] Vancomycin/PEG/NADA/Lysine/Water 1.25 gm in 250 mls @ 125 mls/hr 08/09/24 09:00 Vancomycin 1.25gm/250ml (Peg) Premix IV 08/19/24 08:59 Q24H [facility] Cefepime HCl 2 gm/ Sodium 100 mls @ 200 mls/hr 08/08/24 21:00 Chloride IV 08/18/24 20:59 Q12H [facility] Sodium Chloride 1,000 mls @ 100 mls/hr 08/08/24 12:15 08/08/24 12:25 Sod Chlor 0.9% 1000ml Bag IV 09/07/24 12:14 100 mls/hr .Q10H [facility] Administration Irbesartan 300 mg 08/09/24 09:00 Irbesartan 300mg Tablet PO 09/08/24 08:59 DAILY [facility] Lactobacillus 1 cap 08/09/24 09:00 Lactobacillus Probiotic Comb Capsule PO 09/08/24 08:59 DAILY [facility] Magnesium Oxide 400 mg 08/09/24 09:00 Magnesium Oxide 400mg Tablet PO 09/08/24 08:59 DAILY [facility] Metoprolol Succinate 50 mg 08/09/24 09:00 Metoprolol Succinate Xl 50mg Tablet PO 09/08/24 08:59 DAILY [facility] Montelukast Sodium 10 mg 08/09/24 09:00 Montelukast Sodium 10mg Tab PO 09/08/24 08:59 DAILY [facility] Multivitamins 1 each 08/08/24 17:00 Multivitamin Tablet PO 09/07/24 16:59 1700 [facility] Pantoprazole Sodium 40 mg 08/08/24 21:00 Pantoprazole 40mg Tablet PO 09/07/24 20:59 HS [facility] Pravastatin Sodium 40 mg 08/08/24 21:00 Pravastatin 40mg Tab PO 09/07/24 20:59 HS [facility] Pregabalin 75 mg 08/08/24 21:00 Pregabalin 25mg Capsule PO 09/07/24 20:59 BID [facility] Fluticasone/Salmeterol 1 puff 08/08/24 21:00 Fluticasone/Salmeterol 250/50mcg Diskus 09/07/24 20:59 BID [facility] Sodium Chloride 3 ml 08/08/24 07:24 Sodium Chloride 3% 15ml Neb 09/07/24 07:23 ONCE PRN [employer] Tizanidine HCl 2 mg 08/08/24 14:52 Tizanidine 4mg Tablet PO 09/07/24 14:51 HSP PRN Muscle Pain Vitamin D 25 mcg 08/09/24 09:00 Cholecalciferol 1,000 Units (25mcg) Tablet PO 09/08/24 08:59 DAILY [facility] Discontinued Medications Generic Name Dose Route Start Last Admin Trade Name Freq PRN Reason Stop Dose Admin Acetaminophen 1,000 mg 08/08/24 07:24 08/08/24 07:29 Acetaminophen 1,000mg/100ml Vial IV 08/08/24 07:25 1,000 mg ONCE ONE Administration Albuterol/Ipratropium 9 ml 08/08/24 07:03 08/08/24 07:30 Ipratropium/Albuterol 3 Ml Neb IH 08/08/24 07:04 9 ml ONCE ONE Administration Lactated Ringer's 1,000 mls @ 999 mls/hr 08/08/24 07:24 08/08/24 07:30 Lactated Ringer's 1000 Ml Bag IV 08/08/24 08:24 999 mls/hr .Q1H1M ONE Administration Cefepime HCl 2 gm/ Sodium 100 mls @ 200 mls/hr 08/08/24 07:56 08/08/24 08:25 Chloride IV 08/08/24 08:25 200 mls/hr ONCE ONE Administration Vancomycin/PEG/NADA/Lysine/Water 1.5 gm in 300 mls @ 150 mls/hr 08/08/24 08:30 08/08/24 08:38 Vancomycin 1.5gm/300ml (Peg) Premix IV 08/08/24 10:29 150 mls/hr ONCE ONE Administration Magnesium Sulfate 2 gm in 50 mls @ 50 mls/hr 08/08/24 08:32 08/08/24 08:47 Magnesium Sulfate 2gm/50ml Premix IV 08/08/24 09:31 50 mls/hr ONCE ONE Administration Iopamidol 70 ml 08/08/24 08:32 08/08/24 08:33 Iopamidol-370 (76%);100ml Bottle IV 08/08/24 08:33 70 ml ONCE ONE Administration Methylprednisolone Sodium Succinate 125 mg 08/08/24 07:04 08/08/24 07:29 Methylprednisolone Sod Succ 125mg Vial IV 08/08/24 07:05 125 mg ONCE ONE Administration Miscellaneous 1 each 08/08/24 08:00 08/08/24 08:33 Vancomycin Consult Request NOTAPPLIC 09/07/24 07:59 1 each [facility]ULT [facility]Y [facility] Administration Sodium Chloride 10 ml 08/08/24 08:32 08/08/24 08:33 Sodium Chloride 0.9% 10ml Syr (Rad Only) IV 08/08/24 08:33 10 ml ONCE ONE Administration Sodium Chloride 50 ml 08/08/24 08:32 08/08/24 08:33 0.9 % Sodium Chloride 50 Ml Vial IV 08/08/24 08:33 50 ml ONCE ONE Administration ORDERS Category Date Time Status CTA Chest [CT angio chest PE protocol] Stat Cat Scan 08/08/24 07:56 Completed CXR --portable [XR chest portable] Stat Exams 08/08/24 07:03 Completed BNP [NT Pro Brain Natriuretic Pep.] Stat Lab 08/08/24 07:00 Completed CBC w/Auto Diff [Complete Blood Count Auto Diff] Stat Lab 08/08/24 07:00 Completed CMP [Comprehensive Metabolic Panel] Stat Lab 08/08/24 07:00 Completed CRP [C-Reactive Protein] Stat Lab 08/08/24 07:00 Completed D-Dimer Stat Lab 08/08/24 07:00 Completed Full Resp Panel w/COVID ([facility]) Routine Lab 08/08/24 10:11 Completed Lactic Acid Stat Lab 08/08/24 07:00 Completed MAG [Magnesium] Stat Lab 08/08/24 07:00 Completed Procalcitonin Stat Lab 08/08/24 07:00 Completed Rapid PCR Covid and Flu A/B Stat Lab 08/08/24 08:34 Completed T4 (Thyroxine) Stat Lab 08/08/24 07:00 Completed TSH [Thyroid Stimulating Hormone] Stat Lab 08/08/24 07:00 Completed Trop I [Troponin I] Stat Lab 08/08/24 07:00 Completed Troponin I Q3H Lab 08/08/24 11:30 Completed Troponin I Q3H Lab 08/08/24 14:05 Completed UA [Urinalysis and Microscopic] Stat Lab 08/08/24 08:34 Completed Blood Culture Stat Micro 08/08/24 07:00 Received Sputum Culture & Gram Stain Stat Micro 08/08/24 07:24 Ordered Urine Culture Stat Micro 08/08/24 08:34 Received VBG [Venous Blood Gas] Stat RT 08/08/24 07:02 Completed ECG Data Tracing #1: Attestation: I reviewed this ECG and interpreted as documented below: ECG Narrative: Normal sinus rhythm with a ventricular rate of 96 bpm. Right bundle branch block noted. No acute ST changes concerning for STEMI. ECG initial impression date: 08/08/24 ECG initial impression time: 07:00 MDM Narrative Medical Decision Narrative: In summary, this patient is a 83-year-old female presenting to the Emergency Department for evaluation of shortness of breath that started this morning. Differential diagnoses considered include but are not limited to COPD exacerbation, CHF exacerbation, ACS, pneumonia, PE, acute on chronic respiratory failure. Ruling out the most morbid conditions drove assessment. It should be noted patient's history includes chronic respiratory failure, diabetes, pulmonary emphysema, CKD which likely are not at goal therapy. This complicates all aspects of care by increasing patient's risk for morbidity. I reviewed patient's past medical records and noted previous admissions back in June multiple times for respiratory failure in the setting of pulmonary emphysema. Patient was discharged to [place]. Noted outpatient pulmonology follow-up after discharge 07/28/2024. On exam, the patient is in respiratory distress. She arrives by EMS. Workup included lab evaluation to evaluate for infectious, metabolic, cardiac causes. Cannot exclude PE as a cause given the patient's age. Given this, D-dimer was ordered. EKG obtained is reassuring without acute ST changes. Patient was given DuoNebs x 3 as well as IV methylprednisolone. For fever, she was given IV acetaminophen. She is febrile, tachycardic, tachypneic. This started, I gave her a liter bolus of IV fluids, as I felt volume overload could be detrimental to her in the setting of respiratory failure. She was not given full sepsis bolus initially given this. She was given IV acetaminophen for fever. I independently interpreted x-ray prior to the radiologist read and noted concerns for pneumonia. Please see their read for final interpretation. Labs were obtained that demonstrated mild neutrophilic predominance, elevated lactic. Patient also has an RICHIE. Initial troponin reassuring. Second troponin pending. Patient was found to have hypomagnesemia, for which IV replacement was ordered. She was given a liter bolus of IV fluids was not given sepsis bolus given history of volume overload. D-dimer was elevated so CT PE protocol was ordered. On reassessment, patient had good improvement after administration of DuoNeb's and Solu-Medrol. She remained stable after IV fluids and medications. She was started on IV vancomycin and cefepime with concern for sepsis. CT PE concerning for multifocal pneumonia, gallstone, pulmonary nodules but no PE. Patient continues to have low oxygen saturation on 5 L nasal cannula, and she is breathing through her mouth quite a bit, so she was placed on Ventimask which she tolerated well with reassuring oxygen saturations. Ultimately, at this time, it is felt she is stable for admission for pneumonia, COPD suspicion, acute on chronic respiratory failure. I had an indirect discussion with Dr. Hernandez who admitted the patient on behalf of Dr. Adamson. Patient was admitted in stable condition.
[2024-08-08 07:16] LABS: VBG Base Excess 7.8 mmol/L (-2.4-2.3); VBG HCO3 32.5 mmol/L (23-30); VBG Oxygen Saturation 97.7 % (50-70); VBG PH 7.41 mmol/L (7.31-7.41); VBG PO2 100.9 mmol/L (28-40); VBG Total CO2 34.2 mmol/L (23-27)
[2024-08-08 07:17] LABS: Albumin Level 3.4 g/dl (3.5-5.0); Chloride 101 mmol/L (98-107); Potassium 4.9 mmoL/L (3.5-5.1); Sodium 141 mmol/L (136-145)
[2024-08-08 07:18] LABS: Lactate Venous 2.9 mmol/L (0.4-2.0)
[2024-08-08 07:20] LABS: Alanine Aminotransferase 16 U/L (12-78); Albumin/Globulin Ratio 1.2 (1.1-1.8); Alkaline Phosphatase 88 U/L (38-126); Anion Gap 8.9 mEq/L (5-15); Aspartate Amino Transferase 32 U/L (14-36); Bilirubin,Total 0.7 mg/dl (0.2-1.3); Blood Urea Nitrogen 27 mg/dl (7-17); Calcium 8.4 mg/dl (8.4-10.2); Carbon Dioxide 36 mmol/L (22.0-30.0); Creatinine Clearance Estimated 46 mL/min (50-200); Estimated Glomerular Filt Rate 39 ml/min (>60); GFR (African American) 47 ML/MIN (>60); Globulin 2.9 g/dL (1.3-3.2); Glucose 165 mg/dl (74-100); Total Protein,Serum 6.3 g/dl (6.3-8.2)
[2024-08-08 07:21] LABS: Lactic Acid 1.8 mmol/L (0.7-2.1)
[2024-08-08 07:22] LABS: Basophils # 0.1 K/mm3 (0-0.2); Eosinophils # 0.2 K/mm3 (0.0-0.4); Eosinophils % 1.5 % (0.1-12.0); Hematocrit 33.6 % (37.0-47.0); Hemoglobin 10.8 g/dL (12.2-16.2); Lymphocytes # 1.3 K/mm3 (0.7-4.5); Lymphocytes % 11.9 % (10-50); Mean Corpuscular HGB Conc 32.1 g/dL (31.8-35.4); Mean Corpuscular Hemoglobin 25.3 pg (27.0-31.2); Mean Corpuscular Volume 78.9 fl (81-99); Mean Platelet Volume 8.4 fl (7.4-10.4); Monocytes # 0.8 K/mm3 (0.1-1.0); Monocytes % 7.3 % (1.7-9.3); Neutrophils # 8.4 K/mm3 (1.8-7.8); Neutrophils % 78.3 % (37.0-80.0); Platelet Count 199 K/mm3 (142-424); Red Blood Count 4.26 M/mm3 (4.20-5.40); Red Cell Distribution Width 21.2 % (11.5-17.5); White Blood Count 10.7 K/mm3 (4.8-10.8)
[2024-08-08 07:25] LABS: D-Dimer 1.59 ug/mL (0.0-0.5)
[2024-08-08 07:26] LABS: C-Reactive Protein 20.6 mg/L (0-4)
[2024-08-08] MEDS: ACETAMINOPHEN 1,000MG/100ML VIAL 1000 MG IV (07:29)
[2024-08-08] MEDS: METHYLPREDNISOLONE SOD SUCC 125MG VIAL 125 MG IV (07:29)
[2024-08-08] MEDS: IPRATROPIUM/ALBUTEROL 3 ML NEB 9 ML IH (07:30)
[2024-08-08] MEDS: LACTATED RINGERS 1000ML 1,000 ML 999 ML IV (07:30)
[2024-08-08 07:33] LABS: NT Pro Brain Natriuretic Pep. 958 pg/mL (0-450)
[2024-08-08 07:35] LABS: Troponin I 0.03 ng/ml (0.00-0.034)
[2024-08-08 07:54] LABS: Thyroid Stimulating Hormone 0.53 uIU/mL (0.465-4.68)
--- NOTE | 2024-08-08 07:56 | CT_ITS ---
PROCEDURE INFORMATION: Exam: CTA Chest With Contrast Exam date and time: 08/08/2024 8:21 AM Age: 83 years old Clinical indication: Shortness of breath; Additional info: SOA, elevated dimer TECHNIQUE: Imaging protocol: Computed tomographic angiography of the chest with contrast. Exam focused on the arteries. 3D rendering (Not supervised by radiologist): MIP and/or 3D reconstructed images were created by the technologist. Radiation optimization: All CT scans at this facility use at least one of these dose optimization techniques: automated exposure control; mA and/or kV adjustment per patient size (includes targeted exams where dose is matched to clinical indication); or iterative reconstruction. Contrast material: ISOVUE 370; Contrast volume: 70 ml; Contrast route: INTRAVENOUS (IV); COMPARISON: CT ANGIO CHEST PE PROTOCOL 05/11/2024 9:40 AM FINDINGS: Pulmonary arteries: No evidence of pulmonary embolus to the segmental level. Aorta: No aneurysm of the aorta. No dissection of the aorta. Lungs: Ground-glass opacities in the left upper lobe. Mild opacities in the lingula and both lower lobes. Findings may reflect multifocal pneumonia.. Pleural spaces: Unremarkable. No pneumothorax. No pleural effusion. Heart: There is calcification of the aortic valve annulus. There is calcification of the mitral valve annulus. Coronary arteries: Coronary artery calcifications may indicate coronary artery disease. Lymph nodes: Pathologic node adjacent to the celiac axis 17 x 10 mm . Pathologic node adjacent to gallbladder 16 x 17 mm. Pathologic node anterior to the trachea measures 22 x 28 mm. Subcarinal adenopathy 23 x 18 mm. Gallbladder and biliary ducts: Gallstone in the gallbladder.. Bones/joints: Compression fracture T12 Soft tissues: Unremarkable. IMPRESSION: 1. No evidence of pulmonary embolus to the segmental level. 2. Ground-glass opacities in the left upper lobe. Mild opacities in the lingula and both lower lobes. Findings may reflect multifocal pneumonia.. 3. Gallstone in the gallbladder.. 4. Pathologic node anterior to the trachea measures 22 x 28 mm. 5. Subcarinal adenopathy 23 x 18 mm.
[2024-08-08] MEDS: CEFEPIME HCL 2 GM in 0.9 % SODIUM CHLORIDE 100 ML IV ×2 (08:25→21:50)
[2024-08-08 08:30] LABS: Magnesium 0.8 mg/dl (1.6-2.3)
--- NOTE | 2024-08-08 08:32 | PC.NURSE ---
Dr. Henderson notified of critical mag level
[2024-08-08] MEDS: VANCOMYCIN CONSULT REQUEST 1 EACH NOTAPPLIC (08:33)
[2024-08-08] MEDS: IOPAMIDOL-370 (76%);100ML BOTTLE 70 ML IV (08:33)
[2024-08-08] MEDS: 0.9 % SODIUM CHLORIDE 50 ML VIAL IV (08:33)
[2024-08-08] MEDS: SODIUM CHLORIDE 0.9% 10ML SYR (RAD ONLY) 10 ML IV (08:33)
[2024-08-08 08:38] LABS: Procalcitonin 0.131 ng/mL (0.0-2.0)
[2024-08-08 08:38] LABS: Coronavirus 19, PCR Not Detected (NotDetected); Influenza A, PCR Not Detected (NotDetected); Influenza B, PCR Not Detected (NotDetected); Microscopic, Urine URINE MICROSCOPIC (MICROSCOPIC)
[2024-08-08] MEDS: VANCOMYCIN/WATER FOR INJ (PEG) 1.5 GM/300 ML PIGGYBACK IV (08:38)
[2024-08-08 08:45] LABS: Appearance,Urine CLEAR (Clear); Bilirubin,Urine Negative (Negative); Blood, Urine Negative (Negative); Color,Urine YELLOW (Yellow); Glucose,Urine (UA) Negative (Negative); Ketones,Urine Negative (Negative); Leukocyte Esterase,Urine Negative (Negative); Nitrate,Urine Negative (Negative); Protein,Urine Negative (Negative); Specific Gravity, Urine 1.015 (1.005-1.030); Urobilinogen,Urine 0.2 EU/dl (0.2)
[2024-08-08] MEDS: MAGNESIUM SULFATE IN WATER 2 GM/50 ML PIGGYBACK IV (08:47)
--- NOTE | 2024-08-08 09:49 | PC.NURSE ---
DR AUSTIN MCCORMICK
--- NOTE | 2024-08-08 10:08 | PC.NURSE ---
DR AVILA PAGED AGAIN
--- NOTE | 2024-08-08 10:10 | PC.NURSE ---
DR LOJA SPEAKING WITH DR AVILA
--- NOTE | 2024-08-08 10:12 | PC.NURSE ---
BIOLOGICAL TECHNICIAN NOTIFIED OF ADMISSION
--- NOTE | 2024-08-08 10:34 | PC.NURSE ---
REPORT CALLED NEO GALLEGOS
[2024-08-08 10:38] LABS: Adenovirus,PCR Not Detected (NotDetected); Bordetella Pertussis Not Detected (NotDetected); Chlamydophila Pneumoniae, PCR Not Detected (NotDetected); Coronavirus 19, PCR Not Detected (NotDetected); Coronavirus 229E Not Detected (NotDetected); Coronavirus NL63 Not Detected (NotDetected); Coronavirus OC43 Not Detected (NotDetected); Coronovirus HKU1,PCR Not Detected (NotDetected); Human Metapneumovirus Not Detected (NotDetected); Influenza A, PCR Not Detected (NotDetected); Influenza AH1, 2009 Not Detected (NotDetected); Influenza AH1, PCR Not Detected (NotDetected); Influenza AH3,PCR Not Detected (NotDetected); Influenza B, PCR Not Detected (NotDetected); Mycoplasma Pneumoniae, PCR Not Detected (NotDetected); Parainfluenza 1, PCR Not Detected (NotDetected); Parainfluenza 2, PCR Not Detected (NotDetected); Parainfluenza 3, PCR Not Detected (NotDetected); Parainfluenza 4, PCR Not Detected (NotDetected); Respiratory Syncytial Virus Not Detected (NotDetected); Rhinovirus/Enterovirus Not Detected (NotDetected)
--- NOTE | 2024-08-08 11:15 | PC.NURSE ---
pt transferred to floor at this time
[2024-08-08 11:18] LABS: Reflex Lactic Add Lactic Reflex
[2024-08-08 11:49] LABS: Lactic Acid Follow Up (RFLX 1) 1.9 mmol/L (0.7-2.1)
[2024-08-08 12:07] LABS: Troponin I 0.41 ng/ml (0.00-0.034)
[2024-08-08] MEDS: 0.9 % SODIUM CHLORIDE 1000ML 1,000 ML 100 ML IV ×2 (12:25→23:17)
--- NOTE | 2024-08-08 13:35 | PC.NURSE ---
Dr. Hernandez asked to have charge call him with pt's medication list when done.
[2024-08-08 13:39] LABS: POC Glucose,Bedside 245 (70-110)
[2024-08-08 14:58] LABS: Troponin I 0.42 ng/ml (0.00-0.034)
--- NOTE | 2024-08-08 15:03 | EXP.PHA.CONS ---
Pharmacy Consult Date: 08/08/24 Time: 15:04 Referring provider: DR. AVILA Reason for Consult:: VANCOMYCIN DOSING Allergies Allergy/AdvReac Type Severity Reaction Status Date / Time pollen extracts (POLLEN Allergy Intermediate ASTHMA Verified 07/28/24 13:07 EXTRACTS) Home Medications ?Medication ?Instructions ?Recorded ?Confirmed ?Type metformin 500 mg tablet 500 mg PO BIDWMEAL 03/06/18 08/08/24 History montelukast 10 mg tablet 10 mg PO DAILY 03/06/18 08/08/24 History simvastatin 20 mg tablet 20 mg PO HS 03/06/18 08/08/24 History escitalopram oxalate 20 mg tablet 20 mg PO DAILY 11/10/23 08/08/24 History fluticasone 250 mcg-salmeterol 50 1 ea inhalation BID 11/10/23 08/08/24 History mcg/dose blistr powdr for inhalation (Wixela Inhub) oxybutynin chloride 10 mg 20 mg PO DAILY 11/10/23 08/08/24 History tablet,extended release 24 hr magnesium oxide 400 mg (241.3 mg 400 mg PO DAILY 02/20/24 08/08/24 History magnesium) tablet irbesartan 300 mg tablet 300 mg PO DAILY #30 tabs 02/25/24 08/08/24 Rx amlodipine 5 mg tablet 5 mg PO DAILY 05/09/24 08/08/24 History esomeprazole magnesium 40 mg 40 mg PO DAILY 05/09/24 08/08/24 History capsule,delayed release metoprolol succinate 50 mg 50 mg PO DAILY 05/09/24 08/08/24 History tablet,extended release 24 hr tizanidine 2 mg tablet 2 mg PO HSP PRN Muscle Pain 05/09/24 08/08/24 History azelastine 137 mcg (0.1 %) nasal 2 spray intranasal DAILY 05/12/24 08/08/24 History spray fluticasone propionate 50 2 spray intranasal DAILY 05/12/24 08/08/24 History mcg/actuation nasal spray,suspension olopatadine 0.7 % eye drops 1 drp ophthalmic (eye) DAILY 05/12/24 08/08/24 History (Pataday Once Daily Relief) bismuth subsalicylate 262 mg tablet 262 mg PO DAILYP PRN indigestion/ 07/08/24 08/08/24 History upset stomach calcium carbonate (Calcium 600) 600 mg PO DAILY 07/08/24 08/08/24 History cholecalciferol (vitamin D3) 25 25 mcg PO DAILY 07/08/24 08/08/24 History mcg (1,000 unit) tablet (Vitamin D3) cinnamon bark 500 mg capsule 1,000 mg PO DAILY 07/08/24 08/08/24 History (Cinnamon) famotidine 20 mg tablet 20 mg PO DAILY 07/08/24 08/08/24 History glucosamine sulfate 2KCl 1,000 mg 1,000 mg PO DAILY 07/08/24 08/08/24 History tablet mecobalamin (vitamin B12) 1,000 3,000 mcg PO DAILY 07/08/24 08/08/24 History mcg chewable tablet (B12 Active) multivitamin 1 tab PO DAILY 07/08/24 08/08/24 History vit C 250 mg-vit E 90 mg-zinc 40 1 tab PO BID 07/08/24 08/08/24 History mg-copper 1 [id number] capsule (PreserVision AREDS-2) Bifidobacterium infantis 4 mg 4 mg PO DAILY #30 caps 07/15/24 08/08/24 Rx capsule (Align) pregabalin 75 mg capsule (Lyrica) 75 mg PO BID #60 caps 07/15/24 08/08/24 Rx furosemide 40 mg tablet 40 mg PO DAILY 08/08/24 08/08/24 History New Prescriptions to Start Prescriptions: Height: 1.68 m Weight: 92.079 kg Laboratory Results:: Laboratory Results - last 24 hr 08/08/24 07:00: WBC 10.7, RBC 4.26, Hgb 10.8 L, Hct 33.6 L, MCV 78.9 L, MCH 25.3 L, MCHC 32.1, RDW 21.2 H, Plt Count 199, MPV 8.4, Neut % (Auto) 78.3, Lymph % (Auto) 11.9, [place] % (Auto) 7.3, Eos % (Auto) 1.5, Baso % (Auto) 1.0, Neut # (Auto) 8.4 H, Lymph # (Auto) 1.3, [place] # (Auto) 0.8, Eos # (Auto) 0.2, Baso # (Auto) 0.1, D-Dimer 1.59 H, Sodium 141, Potassium 4.9, Chloride 101, Carbon Dioxide 36 H, Anion Gap 8.9, BUN 27 H, Creatinine 1.30 H, Estimated Creat Clear 46, Estimated GFR 39 L, Est GFR ( Amer) 47 L, Glucose 165 H, Lactate 1.8, Calcium 8.4, Magnesium 0.8 L, Total Bilirubin 0.7, AST 32, ALT 16, Alkaline Phosphatase 88, Troponin I 0.03, C-Reactive Protein 20.6 H, NT-Pro-B Natriuret Pep 958 H, Total Protein 6.3, Albumin 3.4 L, Globulin 2.9, Albumin/Globulin Ratio 1.2, Procalcitonin 0.131, TSH 0.53, Thyroxine (T4) 11.0 08/08/24 07:02: VBG pH 7.41, VBG pCO2 53.0 H, VBG pO2 100.9 H, VBG HCO3 32.5 H, VBG Total CO2 34.2 H, VBG O2 Saturation 97.7 H, VBG Base Excess 7.8 H, VBG Lactic Acid 2.9 H 08/08/24 08:34: Urine Color Yellow, Urine Appearance Clear, Urine pH 8.0, Ur Specific [place] 1.015, Urine Protein Negative, Urine Glucose (UA) Negative, Urine Ketones Negative, Urine Blood Negative, Urine Nitrate Negative, Urine Bilirubin Negative, Urine Urobilinogen 0.2, Ur Leukocyte Esterase Negative, Urine RBC None, Urine WBC None, Ur Squamous Epith Cells 3-5, Urine Bacteria None, SARS-CoV-2 (PCR) Not detected, Influenza A Untype (PCR) Not detected, Influenza Type B (PCR) Not detected 08/08/24 10:11: Chlamy pneumoniae PCR Not detected, Adenovirus (PCR) Not detected, B. pertussis DNA (PCR) Not detected, Coronavirus OC43 (PCR) Not detected, Coronavirus HKU1 (PCR) Not detected, Coronavirus 229E (PCR) Not detected, SARS-CoV-2 (PCR) Not detected, Coronavirus NL63 (PCR) Not detected, Human Metapneumovir PCR Not detected, Influenza A (H1) PCR Not detected, Influ A (H1N1/09) PCR Not detected, Influenza A (H3) PCR Not detected, Influenza Type A (PCR) Not detected, Influenza Type B (PCR) Not detected, M. pneumoniae (PCR) Not detected, Parainfluenza 1 (PCR) Not detected, Parainfluenza 2 (PCR) Not detected, Parainfluenza 3 (PCR) Not detected, Parainfluenza 4 (PCR) Not detected, RSV (PCR) Not detected, Entero/Rhino (PCR) Not detected 08/08/24 11:30: Lactate 1.9, Troponin I 0.41 H 08/08/24 13:32: POC Glucose 245 H 08/08/24 14:05: Troponin I 0.42 H Medical History: Medical History (Updated 08/08/24 @ 09:49 by Claudia Henderson DO) Pulmonary emphysema Chronic respiratory failure with hypoxia Recurrent pneumonia Acute and chronic respiratory failure with hypoxia Lumbar radiculopathy Degenerative disc disease, lumbar Paratracheal lymphadenopathy CAP (community acquired pneumonia) RICHIE (acute kidney injury) Hypertensive urgency Elevated brain natriuretic peptide (BNP) level Hypertensive emergency CKD (chronic kidney disease) stage 3, GFR 30-59 ml/min Pneumonia Allergic rhinitis Colon polyps Hemorrhoids, internal Osteoporosis Herpes zoster Closed left ankle fracture Closed left hip fracture Lumbar spinal stenosis Lumbar compression fracture Ocular melanoma COPD (chronic obstructive pulmonary disease) Mediastinal lymphadenopathy Sleep apnea Asthma Hyperlipidemia Neuropathy Depression GERD (gastroesophageal reflux disease) Arthritis Hypertension Diabetes Assessment and Plan Assessment and plan all Dx Assessment and Plan for all problems:: Pharmacokinetic dosing service Objective: Patient: Floor: Age: 83 yo Serum creatinine: 1.3 mg/dL Height: 66.1 Inches Weight (kg): 92 Assessment: IBW (kg): 59.53 Dosing wt(kg): 92 Estimated Creatinine clearance (ml/min): 29.7 CRCL method: Cockcroft and Gault using ibw(default). Drug selected: Vancomycin Loading dose (mg): 0 Vd (liters): 73.6 (factor used: 0.8 L/kg) [place] (hr-1): 0.029 Half life (hrs): 23.90 Recommended dose: 1250 mg Interval: 24 hrs Infusion time (hrs): 2.0 Predicted peak (mcg/mL): 32.9 Predicted trough (mcg/mL): 17.38 Total body weight is being used for vancomycin dosing. Recommendations: Give Vancomycin 1250 mg q 24 hrs with an expected Cpeak of 32.9 mcg/ml and an expected Ctrough of 17.38 mcg/ml ----Vanco only - ignore for aminoglycosides----- CLvanco= 2.13 L/hr AUC 0-24 /SARIKA Data: SARIKA 0.5 mcg/mL: AUC/SARIKA: 1173.7 SARIKA 1.0 mcg/mL: AUC/SARIKA: 586.9 --------- SARIKA 1.5 mcg/mL: AUC/SARIKA: 391.2 SARIKA 2.0 mcg/mL: AUC/SARIKA: 293.4
[2024-08-08] MEDS: FLUTICASONE/SALMETEROL 250/50MCG DISKUS 1 PUFF IH (20:34)
[2024-08-08] MEDS: PANTOPRAZOLE 40MG TABLET 40 MG PO (21:49)
[2024-08-08] MEDS: PREGABALIN 25MG CAPSULE 75 MG PO (21:49)
[2024-08-08] MEDS: PRAVASTATIN 40MG TAB 40 MG PO (21:49)
[2024-08-08 22:04] LABS: POC Glucose,Bedside 242 (70-110)
[2024-08-09] VITALS (7 sets, daily range): BP systolic 112–131; BP diastolic 47–63; PULSE 50–73; RESP 16–22; TEMP 36.6–37; O2SAT 90–96; BMI 34.0
[2024-08-09] MEDS: SODIUM CHLORIDE 3% 15ML NEB 3 ML IH (06:35)
[2024-08-09] MEDS: FLUTICASONE/SALMETEROL 250/50MCG DISKUS 1 PUFF IH (06:36)
[2024-08-09 06:44] LABS: POC Glucose,Bedside 128 (70-110)
[2024-08-09 07:32] LABS: MANUAL DIFFERENTIAL MANUAL DIFFERENTIAL (MANUAL DIFF)
[2024-08-09 08:04] LABS: Albumin Level 3.1 g/dl (3.5-5.0); Chloride 103 mmol/L (98-107); Potassium 4.5 mmoL/L (3.5-5.1); Sodium 140 mmol/L (136-145)
[2024-08-09 08:07] LABS: Alanine Aminotransferase 12 U/L (12-78); Albumin/Globulin Ratio 1.1 (1.1-1.8); Alkaline Phosphatase 80 U/L (38-126); Anion Gap 6.5 mEq/L (5-15); Aspartate Amino Transferase 31 U/L (14-36); Bilirubin,Total 0.4 mg/dl (0.2-1.3); Blood Urea Nitrogen 32 mg/dl (7-17); Carbon Dioxide 35 mmol/L (22.0-30.0); Creatinine Clearance Estimated 62 mL/min (50-200); Estimated Glomerular Filt Rate 53 ml/min (>60); GFR (African American) 64 ML/MIN (>60); Globulin 2.7 g/dL (1.3-3.2); Total Protein,Serum 5.8 g/dl (6.3-8.2)
[2024-08-09 08:08] LABS: Glucose 129 mg/dl (74-100)
[2024-08-09 08:12] LABS: Hematocrit 33.1 % (37.0-47.0); Hemoglobin 9.6 g/dL (12.2-16.2); Mean Corpuscular Hemoglobin 24.1 pg (27.0-31.2); Red Blood Count 3.99 M/mm3 (4.20-5.40); White Blood Count 10.6 K/mm3 (4.8-10.8)
[2024-08-09 08:13] LABS: Basophils % 0.2 % (0.1-2.0); Lymphocytes # 0.6 K/mm3 (0.7-4.5); Lymphocytes % 5.8 % (10-50); Mean Platelet Volume 10.2 fl (7.4-10.4); Monocytes # 0.8 K/mm3 (0.1-1.0); Monocytes % 7.2 % (1.7-9.3); Neutrophils # 9.1 K/mm3 (1.8-7.8); Neutrophils % 85.4 % (37.0-80.0); Platelet Count 194 K/mm3 (142-424); Red Cell Distribution Width 21.7 % (11.5-17.5)
--- NOTE | 2024-08-09 08:14 | PC.NURSE ---
Pt. is alert and orientated x 4. Pt. on venti mask. O2 sats 92-94% 15 liters O2. Pt, slept most of shift. wakes easily. VSS, personal items and call steel in reach.
--- NOTE | 2024-08-09 09:08 | P.HP_ITS ---
History of Present Illness *Admission Date: 08/08/24 *Reason for visit:: Difficulty breathing *History of present illness: Ms. Nascimento is an 83 year old patient of [facility] that was recently admitted into [facility] due to debility and chronic respiratory failure. She has had multiple recent hospital admission due to inability to stand/ambulate and for pneumonia/hypoxia/respiratory failure. She has no recollection of why she was brought to the ER yesterday but per the ER record and the EMS report patient was found to be hypoxic with sats in the mid 70's at [facility] yesterday despite using her supplemental oxygen at 3 L/min/nc. She states that when she went to bed night before last she felt fine. She denies new respiratory problems. ER work up reviewed. CT scan showed bilateral pneumonia. [facility] Disclaimer: The information contained in this section may have been updated after the patient was seen, as this information can be updated by other users. Medical History Pulmonary emphysema Chronic respiratory failure with hypoxia Recurrent pneumonia Acute and chronic respiratory failure with hypoxia Lumbar radiculopathy Degenerative disc disease, lumbar Paratracheal lymphadenopathy CAP (community acquired pneumonia) RICHIE (acute kidney injury) Hypertensive urgency Elevated brain natriuretic peptide (BNP) level Hypertensive emergency CKD (chronic kidney disease) stage 3, GFR 30-59 ml/min Pneumonia Allergic rhinitis Colon polyps Hemorrhoids, internal Osteoporosis Herpes zoster Closed left ankle fracture Closed left hip fracture Lumbar spinal stenosis Lumbar compression fracture Ocular melanoma COPD (chronic obstructive pulmonary disease) Mediastinal lymphadenopathy Sleep apnea Asthma Hyperlipidemia Neuropathy Depression GERD (gastroesophageal reflux disease) Arthritis Hypertension Diabetes Surgical History History of right knee joint replacement History of left knee replacement History of left hip replacement History of left ankle joint replacement 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 History of arthroplasty of right knee History of appendectomy Family History Heart attack Social History Smoking Status: Former smoker alcohol intake: never substance use type: denies use current occupational status: other Travel in the last 8 weeks: None household members: none caffeine: Yes Other Medical History Have you received the Flu Vaccine for this season: Yes Have you received the Pneumonia Vaccine: Yes Review of Systems Constitutional Constitutional: Denies chills and Denies fever(s) ENT Ears, Nose, Mouth, and Throat: Denies dizziness *Cardiovascular Cardiovascular: Denies chest pain *Respiratory Respiratory: Denies cough *Gastrointestinal Gastrointestinal: Denies abdominal pain *Genitourinary Genitourinary: Denies difficulty voiding *Musculoskeletal Musculoskeletal: Reports deformity (left ankle) *Neurologic Neurologic: Denies dizziness Meds Home Medications and Allergies Home Medications ?Medication ?Instructions ?Recorded ?Confirmed ?Type metformin 500 mg tablet 500 mg PO BIDWMEAL 03/06/18 08/08/24 History montelukast 10 mg tablet 10 mg PO DAILY 03/06/18 08/08/24 History simvastatin 20 mg tablet 20 mg PO HS 03/06/18 08/08/24 History escitalopram oxalate 20 mg tablet 20 mg PO DAILY 11/10/23 08/08/24 History fluticasone 250 mcg-salmeterol 50 1 ea inhalation BID 11/10/23 08/08/24 History mcg/dose blistr powdr for inhalation (Wixela Inhub) oxybutynin chloride 10 mg 20 mg PO DAILY 11/10/23 08/08/24 History tablet,extended release 24 hr magnesium oxide 400 mg (241.3 mg 400 mg PO DAILY 02/20/24 08/08/24 History magnesium) tablet irbesartan 300 mg tablet 300 mg PO DAILY #30 tabs 02/25/24 08/08/24 Rx amlodipine 5 mg tablet 5 mg PO DAILY 05/09/24 08/08/24 History esomeprazole magnesium 40 mg 40 mg PO DAILY 05/09/24 08/08/24 History capsule,delayed release metoprolol succinate 50 mg 50 mg PO DAILY 05/09/24 08/08/24 History tablet,extended release 24 hr tizanidine 2 mg tablet 2 mg PO HSP PRN Muscle Pain 05/09/24 08/08/24 History azelastine 137 mcg (0.1 %) nasal 2 spray intranasal DAILY 05/12/24 08/08/24 History spray fluticasone propionate 50 2 spray intranasal DAILY 05/12/24 08/08/24 History mcg/actuation nasal spray,suspension olopatadine 0.7 % eye drops 1 drp ophthalmic (eye) DAILY 05/12/24 08/08/24 History (Pataday Once Daily Relief) bismuth subsalicylate 262 mg tablet 262 mg PO DAILYP PRN indigestion/ 07/08/24 08/08/24 History upset stomach calcium carbonate (Calcium 600) 600 mg PO DAILY 07/08/24 08/08/24 History cholecalciferol (vitamin D3) 25 25 mcg PO DAILY 07/08/24 08/08/24 History mcg (1,000 unit) tablet (Vitamin D3) cinnamon bark 500 mg capsule 1,000 mg PO DAILY 07/08/24 08/08/24 History (Cinnamon) famotidine 20 mg tablet 20 mg PO DAILY 07/08/24 08/08/24 History glucosamine sulfate 2KCl 1,000 mg 1,000 mg PO DAILY 07/08/24 08/08/24 History tablet mecobalamin (vitamin B12) 1,000 3,000 mcg PO DAILY 07/08/24 08/08/24 History mcg chewable tablet (B12 Active) multivitamin 1 tab PO DAILY 07/08/24 08/08/24 History vit C 250 mg-vit E 90 mg-zinc 40 1 tab PO BID 07/08/24 08/08/24 History mg-copper 1 [id number] capsule (PreserVision AREDS-2) Bifidobacterium infantis 4 mg 4 mg PO DAILY #30 caps 07/15/24 08/08/24 Rx capsule (Align) pregabalin 75 mg capsule (Lyrica) 75 mg PO BID #60 caps 07/15/24 08/08/24 Rx furosemide 40 mg tablet 40 mg PO DAILY 08/08/24 08/08/24 History New Prescriptions to Start Prescriptions: Allergies Allergy/AdvReac Type Severity Reaction Status Date / Time pollen extracts (POLLEN Allergy Intermediate ASTHMA Verified 07/28/24 13:07 EXTRACTS) Exam Data for Last 24 hours Vital signs and Labs for Last 24 Hours: Temp Pulse Resp BP Pulse Ox O2 Del Method O2 Flow Rate 97.8 F 66 20 131/63 91 L Nasal Cannula 3 08/09/24 04:00 08/09/24 06:35 08/09/24 04:00 08/09/24 04:00 08/09/24 04:00 08/09/24 09:00 08/09/24 09:00 Laboratory Results - last 24 hr 08/08/24 08:34: SARS-CoV-2 (PCR) Not detected, Influenza A Untype (PCR) Not detected, Influenza Type B (PCR) Not detected 08/08/24 10:11: Chlamy pneumoniae PCR Not detected, Adenovirus (PCR) Not detected, B. pertussis DNA (PCR) Not detected, Coronavirus OC43 (PCR) Not detected, Coronavirus HKU1 (PCR) Not detected, Coronavirus 229E (PCR) Not detected, SARS-CoV-2 (PCR) Not detected, Coronavirus NL63 (PCR) Not detected, Human Metapneumovir PCR Not detected, Influenza A (H1) PCR Not detected, Influ A (H1N1/09) PCR Not detected, Influenza A (H3) PCR Not detected, Influenza Type A (PCR) Not detected, Influenza Type B (PCR) Not detected, M. pneumoniae (PCR) Not detected, Parainfluenza 1 (PCR) Not detected, Parainfluenza 2 (PCR) Not detected, Parainfluenza 3 (PCR) Not detected, Parainfluenza 4 (PCR) Not detected, RSV (PCR) Not detected, Entero/Rhino (PCR) Not detected 08/08/24 11:30: Lactate 1.9, Troponin I 0.41 H 08/08/24 13:32: POC Glucose 245 H 08/08/24 14:05: Troponin I 0.42 H 08/08/24 21:40: POC Glucose 242 H 08/09/24 06:35: POC Glucose 128 H 08/09/24 07:25: WBC 10.6, RBC 3.99 L, Hgb 9.6 L, Hct 33.1 L, MCV 83.0, MCH 24.1 L, MCHC 29.0 L, RDW 21.7 H, Plt Count 194, MPV 10.2, Neut % (Auto) 85.4 H, Lymph % (Auto) 5.8 L, [place] % (Auto) 7.2, Eos % (Auto) 0.0 L, Baso % (Auto) 0.2, Neut # (Auto) 9.1 H, Lymph # (Auto) 0.6 L, [place] # (Auto) 0.8, Eos # (Auto) 0.0, Baso # (Auto) 0.0, Sodium 140, Potassium 4.5, Chloride 103, Carbon Dioxide 35 H, Anion Gap 6.5, BUN 32 H, Creatinine 1.00 D, Estimated Creat Clear 62, Estimated GFR 53 L, Est GFR ( Amer) 64 D, Glucose 129 H, Calcium 8.0 L, Total Bilirubin 0.4, AST 31, ALT 12, Alkaline Phosphatase 80, Total Protein 5.8 L, Albumin 3.1 L, Globulin 2.7, Albumin/Globulin Ratio 1.1 I & O for Last 24 hours: Intake & Output 08/06/24 08/07/24 08/08/24 08/09/24 23:59 23:59 23:59 23:59 Intake Total 980 / 2420 1790 / 1790 Output Total 300 / 300 550 / 550 Balance 680 / 2120 1240 / 1240 Weight 203 lb 211 lb 9.6 oz Microbiology Reports for the Last 24 Hours: Microbiology 08/08/24 07:00 Blood Blood Culture - Preliminary NO GROWTH AFTER 24 HOURS 08/08/24 07:00 Blood Blood Culture - Preliminary NO GROWTH AFTER 24 HOURS Constitutional Constitutional: no acute distress *Routine HEENT Exam Head: Present normocephalic Eye: Present EOMI and PERRL ENT: Present mucous membranes moist *Routine Neck Exam Neck: Present supple; Absent lymphadenopathy *Routine Respiratory Exam Respiratory: Present crackles (few bibasilar); Absent wheezes *Routine Cardiovascular Exam Cardiovascular: Present RRR *Routine Abdominal Exam Abdominal: Present soft and normoactive bowel sounds; Absent tenderness *Routine Rectal Exam Rectal:: deferred *Routine Genitalia Exam Genitalia:: deferred *Routine Extremities Exam Extremities: Absent cyanosis or clubbing Comments: chronic changes at left ankle *Routine Skin Exam Skin: Present warm; Absent rash *Routine Neurological Exam Neurological: Present alert and oriented X3 Assessment and Plan *Assessment and plan (1) Recurrent pneumonia: Status: Acute Category: Medical Code(s): J18.9 - Pneumonia, unspecified organism (2) Sepsis due to pneumonia: Status: Acute Category: Medical Code(s): J18.9 - Pneumonia, unspecified organism; A41.9 - Sepsis, unspecified organism (3) Acute exacerbation of chronic obstructive pulmonary disease: Status: Acute Category: Medical Code(s): J44.1 - Chronic obstructive pulmonary disease with (acute) exacerbation (4) Acute and chronic respiratory failure: Status: Acute Category: Medical Code(s): J96.20 - Acute and chronic respiratory failure, unspecified whether with hypoxia or hypercapnia (5) Lymphadenopathy, mediastinal: Status: Acute Category: Medical Code(s): R59.0 - Localized enlarged lymph nodes (6) Pulmonary emphysema: Status: Acute Category: Medical Code(s): J43.9 - Emphysema, unspecified (7) DM type 2 (diabetes mellitus, type 2): Status: Acute Category: Medical Code(s): E11.9 - Type 2 diabetes mellitus without complications (8) Left ankle joint deformity: Status: Acute Category: Medical Code(s): M21.962 - Unspecified acquired deformity of left lower leg (9) Obesity: Status: Acute Category: Medical Code(s): E66.9 - Obesity, unspecified (10) Anemia: Status: Acute Category: Medical Code(s): D64.9 - Anemia, unspecified (11) Neuropathy: Status: Acute Category: Medical Code(s): G62.9 - Polyneuropathy, unspecified (12) Depression: Status: Acute Category: Medical Code(s): F32.A - Depression, unspecified (13) GERD (gastroesophageal reflux disease): Status: Acute Category: Medical Code(s): K21.9 - Gastro-esophageal reflux disease without esophagitis (14) Hyperlipidemia: Status: Acute Category: Medical Code(s): E78.5 - Hyperlipidemia, unspecified (15) Elevated troponin: Status: Acute Category: Medical Code(s): R79.89 - Other specified abnormal findings of blood chemistry (16) Gallstone: Status: Acute Category: Medical Code(s): K80.20 - Calculus of gallbladder without cholecystitis without obstruction (17) Hypomagnesemia: Status: Acute Category: Medical Code(s): E83.42 - Hypomagnesemia Plan Patient admitted for further evaluation and management of her current pneumonia and respiratory failure. Plan to continue Vanc and Cefepime as patient is feeling better this morning.
[2024-08-09] MEDS: CEFEPIME HCL 2 GM in 0.9 % SODIUM CHLORIDE 100 ML IV ×2 (09:13→20:50)
[2024-08-09] MEDS: FAMOTIDINE 20MG TABLET 20 MG PO (09:14)
[2024-08-09] MEDS: OYSTER SHELL CALCIUM (ELEMENTAL) 500MG TAB 500 MG PO (09:14)
[2024-08-09] MEDS: CITALOPRAM 40MG TABLET 40 MG PO (09:14)
[2024-08-09] MEDS: LACTOBACILLUS PROBIOTIC COMB CAPSULE 1 CAP PO (09:14)
[2024-08-09] MEDS: IRBESARTAN 300MG TABLET 300 MG PO (09:14)
[2024-08-09] MEDS: AZELASTINE NASAL SPRAY 30ML BOTTLE NS (09:14)
[2024-08-09] MEDS: MAGNESIUM OXIDE 400MG TABLET 400 MG PO (09:14)
[2024-08-09] MEDS: AMLODIPINE 5MG TABLET 5 MG PO (09:14)
[2024-08-09] MEDS: MONTELUKAST SODIUM 10MG TAB 10 MG PO (09:14)
[2024-08-09] MEDS: CHOLECALCIFEROL 1,000 UNITS (25MCG) TABLET 25 MCG PO (09:14)
[2024-08-09] MEDS: METOPROLOL SUCCINATE XL 50MG TABLET 50 MG PO (09:14)
[2024-08-09] MEDS: FLUTICASONE PROP 50MCG NASAL SPRAY 16GM 2 SPRAY NS (09:15)
[2024-08-09] MEDS: PREGABALIN 25MG CAPSULE 75 MG PO ×2 (09:31→20:51)
[2024-08-09 09:32] LABS: Lymphocytes % 10 % (10-50); Monocytes % 3 % (2-9); Neutrophils % 87 % (42-76); Platelet Estimate Normal; Total Cells Counted 100
[2024-08-09 09:33] LABS: Hypochromasia 2+
[2024-08-09] MEDS: 0.9 % SODIUM CHLORIDE 1000ML 1,000 ML 100 ML IV (10:03)
[2024-08-09] MEDS: VANCOMYCIN/WATER FOR INJ (PEG) 1.25 GM/250 ML PIGGYBACK IV (10:03)
[2024-08-09 12:01] LABS: POC Glucose,Bedside 149 (70-110)
--- NOTE | 2024-08-09 14:46 | PC.NURSE ---
Pt. is aox 4, turn every two hours, purewick in place, 2-3L nc sats low 90's, 20g L AC NS @ 100ML/HR, [facility], had a BM today, from [facility].
[2024-08-09 17:17] LABS: POC Glucose,Bedside 138 (70-110)
[2024-08-09] MEDS: PRAVASTATIN 40MG TAB 40 MG PO (20:51)
[2024-08-09] MEDS: PANTOPRAZOLE 40MG TABLET 40 MG PO (20:51)
[2024-08-09 21:41] LABS: POC Glucose,Bedside 140 (70-110)
[2024-08-10] VITALS (12 sets, daily range): BP systolic 126–147; BP diastolic 49–67; PULSE 47–70; RESP 18–24; TEMP 36.7–37.1; O2SAT 90–95; BMI 34.2
[2024-08-10] MEDS: IPRATROPIUM/ALBUTEROL 3 ML NEB IH (05:50)
[2024-08-10] MEDS: FLUTICASONE/SALMETEROL 250/50MCG DISKUS 1 PUFF IH ×2 (05:51→17:57)
--- NOTE | 2024-08-10 06:00 | XR_ITS ---
PROCEDURE INFORMATION: Exam: XR Chest Exam date and time: 08/10/2024 5:52 AM Age: 83 years old Clinical indication: Condition or disease; Lung condition and disease; Pneumonia; Additional info: Pneumonia follow up TECHNIQUE: Imaging protocol: Radiologic exam of the chest. Views: 1 view. COMPARISON: CT ANGIO CHEST PE PROTOCOL 08/08/2024 8:21 AM FINDINGS: Lungs: Patchy subtle left retrocardiac airspace disease. No consolidation. Pleural spaces: Unremarkable. No pleural effusion. No pneumothorax. Heart/Mediastinum: Unremarkable. No cardiomegaly. Bones/joints: Unremarkable. IMPRESSION: Subtle retrocardiac airspace disease likely not significantly changed from prior.
--- NOTE | 2024-08-10 06:18 | PC.NURSE ---
83 yo fe pt admitted with PNA/sepsis is A/O X 4. IV to R arm infiltrated during shift. Discontinued and restarted access to R FA with 20 guage. Pt tolerated well. She has been able to rest some however, approx 4 am, pt found to have 02 sats in the mid 80s with 02 on at 4 liters. Increased 02 to 15 liters per Venti mask, notified RT and Dr Hernandez, OC for [place]. Order obtained for neb treatments every 4 hours prn. Pt now resting comfortably.
[2024-08-10 06:48] LABS: POC Glucose,Bedside 121 (70-110)
[2024-08-10 07:28] LABS: Chloride 105 mmol/L (98-107); Potassium 4.4 mmoL/L (3.5-5.1); Sodium 137 mmol/L (136-145)
[2024-08-10 07:31] LABS: Anion Gap 2.4 mEq/L (5-15); Blood Urea Nitrogen 29 mg/dl (7-17); Calcium 8.2 mg/dl (8.4-10.2); Carbon Dioxide 34 mmol/L (22.0-30.0); Creatinine Clearance Estimated 63 mL/min (50-200); Estimated Glomerular Filt Rate 60 ml/min (>60); GFR (African American) 72 ML/MIN (>60); Glucose 90 mg/dl (74-100)
[2024-08-10 07:32] LABS: Basophils % 0.3 % (0.1-2.0); Eosinophils % 0.2 % (0.1-12.0); Hematocrit 31.9 % (37.0-47.0); Hemoglobin 10.1 g/dL (12.2-16.2); Lymphocytes # 1.4 K/mm3 (0.7-4.5); Lymphocytes % 12.8 % (10-50); Mean Corpuscular HGB Conc 31.7 g/dL (31.8-35.4); Mean Corpuscular Hemoglobin 25.2 pg (27.0-31.2); Mean Corpuscular Volume 79.6 fl (81-99); Monocytes # 0.8 K/mm3 (0.1-1.0); Neutrophils # 8.7 K/mm3 (1.8-7.8); Neutrophils % 79.6 % (37.0-80.0); Platelet Count 187 K/mm3 (142-424); Red Cell Distribution Width 21.1 % (11.5-17.5); White Blood Count 10.9 K/mm3 (4.8-10.8)
--- NOTE | 2024-08-10 08:08 | SW/DCPLANNER ---
Addendum entered by Melony Kim 08/14/24 10:18: I have updated Sanjuana shine/ Isaías Moralez that patient will return today. Addendum entered by Melony Kim 08/13/24 14:24: I have updated Sanjuana that patient will not discharge today. Addendum entered by Melony Kim 08/11/24 13:20: Updated patient information has been faxed to Sanjuana shine/ Isaías Moralez. Original Note: This patient currently resides at [facility] level of care. I will continue to follow up w/ Sanjuana until patient is medically stable for discharge. Discharge date is unknown at this time.
--- NOTE | 2024-08-10 08:18 | P.PN_ITS ---
Subjective *Date: 08/10/24 *Time: 09:05 Interval history: Not feeling as well this morning. Oxygen levels have been low. She continues with a cough which is sometimes productive. She states she has a lot of drainage. She is able to eat/drink without any problems. Her bowels did move y esterday after constipation issues at [place]. Per nursing: Patient's O2 sats dropped and she ended up with O2 per mask at 15 L/min. Lab data this morning showed a white blood cell count of 10,900 with a hemoglobin of 10.1 hematocrit 31.9. Blood chemistries with normal sodium potassium BUN is 29 creatinine 0.9. Respiratory panel is negative. She has an Unna boot on which she states has been on for a couple of days. This was placed due to some weeping areas on her left lower leg. Medical Exam Vital signs and Labs for Last 24 Hours: Vital Signs Temp Pulse Resp BP Pulse Ox O2 Del Method O2 Flow Rate 08/10/24 07:00 Venturi Mask 15 08/10/24 05:00 Venturi Mask 15 08/10/24 04:00 98.7 F 63 20 147/61 H 90 L Nasal Cannula 8 08/10/24 03:00 Nasal Cannula 4 08/10/24 00:56 Nasal Cannula 4 08/10/24 00:00 98.0 F 56 L 18 138/64 95 Nasal Cannula 2 08/09/24 23:00 Nasal Cannula 4 08/09/24 21:00 Nasal Cannula 4 08/09/24 20:00 90 L Nasal Cannula 3 08/09/24 20:00 98.3 F 50 L 16 129/57 L 90 L Nasal Cannula 3 08/09/24 18:25 Nasal Cannula 3 08/09/24 16:55 Nasal Cannula 3 08/09/24 16:00 98.6 F 57 L 19 112/47 L 91 L Nasal Cannula 3 08/09/24 14:12 Nasal Cannula 3 08/09/24 12:11 Nasal Cannula 3 08/09/24 11:47 97.9 F 62 18 115/58 L 96 Nasal Cannula 3 08/09/24 09:56 Nasal Cannula 3 08/09/24 09:00 Nasal Cannula 3 Intake and Output 08/09/24 08/10/24 08/10/24 19:59 03:59 11:59 Intake Total 1650 / 1650 600 / 2250 Output Total 0 / 0 0 / 0 650 / 650 Balance 1650 / 1650 600 / 2250 -650 / 1600 Intake: Intake, Oral Amount 750 / 750 Intake, Total IV Amount 900 / 900 600 / 1500 0.9 % Sodium Chloride 1000ML 1, 900 / 900 500 / 1400 000 ml @ 100 mls/hr IV .Q10H [facility] Rx#:[id number] Cefepime HCl 2 gm In 0.9 % 100 / 100 Sodium Chloride 100 ml @ 200 mls/hr IV Q12H [facility] Rx#:[id number] Output: Output, Urine Amount 0 / 0 0 / 0 650 / 650 Other: Number of Unmeasured Voids 1 1 0 Number of Bowel Movements 1 Weight 213 lb 3.2 oz Patient Weight 08/10/24 11:59 Weight 213 lb 3.2 oz Laboratory Results - last 24 hr 08/09/24 07:25: Total Counted 100, Neutrophils % (Manual) 87 H, Lymphocytes % (Manual) 10, Monocytes % (Manual) 3, Platelet Estimate Normal, Hypochromasia 2+ 08/09/24 11:34: POC Glucose 149 H 08/09/24 17:09: POC Glucose 138 H 08/09/24 20:55: POC Glucose 140 H 08/10/24 06:36: POC Glucose 121 H 08/10/24 06:46: WBC 10.9 H, RBC 4.00 L, Hgb 10.1 L, Hct 31.9 L, MCV 79.6 L, MCH 25.2 L, MCHC 31.7 L, RDW 21.1 H, Plt Count 187, MPV 8.0, Neut % (Auto) 79.6, Lymph % (Auto) 12.8, [place] % (Auto) 7.0, Eos % (Auto) 0.2, Baso % (Auto) 0.3, Neut # (Auto) 8.7 H, Lymph # (Auto) 1.4, [place] # (Auto) 0.8, Eos # (Auto) 0.0, Baso # (Auto) 0.0, Sodium 137, Potassium 4.4, Chloride 105, Carbon Dioxide 34 H, Anion Gap 2.4 L, BUN 29 H, Creatinine 0.90, Estimated Creat Clear 63, Estimated GFR 60, Est GFR ( Amer) 72, Glucose 90 D, Calcium 8.2 L, Magnesium 2.0 D I & O for Labs for Last 24 Hours: Intake & Output 08/07/24 08/08/24 08/09/24 08/10/24 11:59 11:59 11:59 11:59 Intake Total 3490 / 3490 2250 / 2250 Output Total 850 / 850 650 / 650 Balance 2640 / 2640 1600 / 1600 Weight 203 lb 211 lb 9.6 oz 213 lb 3.2 oz Microbiology Reports for the Last 24 Hours: Microbiology 08/08/24 07:00 Blood Blood Culture - Preliminary NO GROWTH AFTER 48 HOURS 08/08/24 07:00 Blood Blood Culture - Preliminary NO GROWTH AFTER 48 HOURS 08/09/24 06:55 Sputum - Expectorated Sputum Gram Stain - Final Constitutional: Present no acute distress and cooperative Comment:: Dyspneic with talking Respiratory: Present wheezes (Expiratory wheezing) Cardiac: Present Reg Rate and Rhythm Comment:: Pure wick in place Comment:: Right lower extremity with erythema posteriorly and minimal edema. Left lower extremity with Unna boot on. Neuro: Present alert, awake and oriented x 3 Assessment and Plan *Assessment and plan (1) Recurrent pneumonia: Status: Acute Category: Medical Code(s): J18.9 - Pneumonia, unspecified organism (2) Sepsis due to pneumonia: Status: Acute Category: Medical Code(s): J18.9 - Pneumonia, unspecified organism; A41.9 - Sepsis, unspecified organism (3) Acute exacerbation of chronic obstructive pulmonary disease: Status: Acute Category: Medical Code(s): J44.1 - Chronic obstructive pulmonary disease with (acute) exacerbation (4) Acute and chronic respiratory failure: Status: Acute Category: Medical Code(s): J96.20 - Acute and chronic respiratory failure, unspecified whether with hypoxia or hypercapnia (5) Lymphadenopathy, mediastinal: Status: Acute Category: Medical Code(s): R59.0 - Localized enlarged lymph nodes (6) Pulmonary emphysema: Status: Acute Category: Medical Code(s): J43.9 - Emphysema, unspecified (7) DM type 2 (diabetes mellitus, type 2): Status: Acute Category: Medical Code(s): E11.9 - Type 2 diabetes mellitus without complications (8) Left ankle joint deformity: Status: Acute Category: Medical Code(s): M21.962 - Unspecified acquired deformity of left lower leg (9) Obesity: Status: Acute Category: Medical Code(s): E66.9 - Obesity, unspecified (10) Anemia: Status: Acute Category: Medical Code(s): D64.9 - Anemia, unspecified (11) Neuropathy: Status: Acute Category: Medical Code(s): G62.9 - Polyneuropathy, unspecified (12) Depression: Status: Acute Category: Medical Code(s): F32.A - Depression, unspecified (13) GERD (gastroesophageal reflux disease): Status: Acute Category: Medical Code(s): K21.9 - Gastro-esophageal reflux disease without esophagitis (14) Hyperlipidemia: Status: Acute Category: Medical Code(s): E78.5 - Hyperlipidemia, unspecified (15) Elevated troponin: Status: Acute Category: Medical Code(s): R79.89 - Other specified abnormal findings of blood chemistry (16) Gallstone: Status: Acute Category: Medical Code(s): K80.20 - Calculus of gallbladder without cholecystitis without obstruction (17) Hypomagnesemia: Status: Acute Category: Medical Code(s): E83.42 - Hypomagnesemia Plan Will continue with Vanco and cefepime. DuoNebs have been ordered as needed. Will decrease IV fluids to 50 an hour. Will also do wound care consult. Dr. Adamson entry - Saw patient, agree with above note.
[2024-08-10] MEDS: CEFEPIME HCL 2 GM in 0.9 % SODIUM CHLORIDE 100 ML IV ×2 (08:51→20:24)
[2024-08-10] MEDS: LACTOBACILLUS PROBIOTIC COMB CAPSULE 1 CAP PO (08:54)
[2024-08-10] MEDS: MONTELUKAST SODIUM 10MG TAB 10 MG PO (08:54)
[2024-08-10] MEDS: CITALOPRAM 40MG TABLET 40 MG PO (08:54)
[2024-08-10] MEDS: AZELASTINE NASAL SPRAY 30ML BOTTLE NS (08:55)
[2024-08-10] MEDS: METOPROLOL SUCCINATE XL 50MG TABLET 50 MG PO (08:55)
[2024-08-10] MEDS: CHOLECALCIFEROL 1,000 UNITS (25MCG) TABLET 25 MCG PO (08:55)
[2024-08-10] MEDS: AMLODIPINE 5MG TABLET 5 MG PO (08:55)
[2024-08-10] MEDS: MAGNESIUM OXIDE 400MG TABLET 400 MG PO (08:55)
[2024-08-10] MEDS: OYSTER SHELL CALCIUM (ELEMENTAL) 500MG TAB 500 MG PO (08:55)
[2024-08-10] MEDS: FAMOTIDINE 20MG TABLET 20 MG PO (08:55)
[2024-08-10] MEDS: IRBESARTAN 300MG TABLET 300 MG PO (08:55)
[2024-08-10] MEDS: FLUTICASONE PROP 50MCG NASAL SPRAY 16GM 2 SPRAY NS (08:56)
[2024-08-10] MEDS: PREGABALIN 25MG CAPSULE 75 MG PO ×2 (09:00→20:24)
[2024-08-10] MEDS: VANCOMYCIN/WATER FOR INJ (PEG) 1.25 GM/250 ML PIGGYBACK IV (09:58)
--- NOTE | 2024-08-10 10:05 | P.CONS_ITS ---
History of Present Illness History of present illness: Ms. Nascimento is a 83-year-old female recently admitted to the hospital with a prolonged course of pneumonia exacerbation presented to the ER again complaining of worsening respiratory distress and increasing oxygen requirements and pulmonary was called for further evaluation and management. [facility] Disclaimer: The information contained in this section may have been updated after the patient was seen, as this information can be updated by other users. Medical History Pulmonary emphysema Chronic respiratory failure with hypoxia Recurrent pneumonia Acute and chronic respiratory failure with hypoxia Lumbar radiculopathy Degenerative disc disease, lumbar Paratracheal lymphadenopathy CAP (community acquired pneumonia) RICHIE (acute kidney injury) Hypertensive urgency Elevated brain natriuretic peptide (BNP) level Hypertensive emergency CKD (chronic kidney disease) stage 3, GFR 30-59 ml/min Pneumonia Allergic rhinitis Colon polyps Hemorrhoids, internal Osteoporosis Herpes zoster Closed left ankle fracture Closed left hip fracture Lumbar spinal stenosis Lumbar compression fracture Ocular melanoma COPD (chronic obstructive pulmonary disease) Mediastinal lymphadenopathy Sleep apnea Asthma Hyperlipidemia Neuropathy Depression GERD (gastroesophageal reflux disease) Arthritis Hypertension Diabetes Surgical History History of right knee joint replacement History of left knee replacement History of left hip replacement History of left ankle joint replacement 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 History of arthroplasty of right knee History of appendectomy Family History Heart attack Social History Smoking Status: Former smoker alcohol intake: never substance use type: denies use current occupational status: other Travel in the last 8 weeks: None household members: none caffeine: Yes Have you lived/traveled outside [place] in past 30 days?: No Contact w/someone who lives/traveled outside [place] past 30 days?: No Exposure to someone with infectious disease in past 14 days?: No Do you have a fever (greater than 100.4 F or 38 C)?: No Have you tested positive for COVID-19: No Exposed to someone with COVID-19 in past 14 days?: No Do you have a sore throat?: No Do you have a cough?: Yes Do you have any weakness?: Yes Do you have any diarrhea?: No Are you experiencing any unusual bleeding?: No Do you have any muscle aches/pain?: No Do you have any abdominal pain?: No Are you experiencing loss of taste or smell?: No Review of Systems Constitutional Constitutional: Reports fatigue, Denies headache(s) and Reports weakness Eyes Eyes: Denies eye discharge, Denies dry eyes, Denies irritation and Denies itchy eyes ENT Ears, Nose, Mouth, and Throat: Denies dizziness, Denies headache(s), Denies lip swelling, Reports nasal congestion, Reports nasal discharge, Reports nasal obstruction and Denies throat swelling *Cardiovascular Cardiovascular: Reports dyspnea, Reports dyspnea on exertion and Reports leg edema *Respiratory Respiratory: Denies change in phlegm color, Reports chest congestion, Reports cough, Reports dyspnea, Reports dyspnea on exertion, Denies excessive phlegm production, Denies hemoptysis, Denies pain on inspiration, Denies pain with cough and Reports wheezing *Gastrointestinal Gastrointestinal: Denies abdominal pain, Denies belching and Denies cramping *Musculoskeletal Musculoskeletal: Reports back pain, Reports myalgias and Reports other (No small joint swelling or Pain) *Neurologic Neurologic: Denies dizziness, Denies headache(s) and Reports weakness Psychiatric Psychiatric: Denies homicidal ideation and Denies suicidal ideation Endocrine Endocrine: Reports fatigue and Denies heat intolerance Hematologic/Lymphatic Hematologic/Lymphatic: Denies easy bleeding and Denies lymphadenopathy Allergic/Immunologic Allergic/Immunologic: Denies itchy eyes, Denies lip swelling, Denies throat swelling and Reports wheezing Pulmonology Exam Inpatient Vital signs and Labs for Last 24 Hours: Temp Pulse Resp BP Pulse Ox O2 Del Method O2 Flow Rate 98.8 F 57 L 24 138/59 L 91 L Nasal Cannula 5 08/10/24 08:00 08/10/24 08:00 08/10/24 08:00 08/10/24 08:00 08/10/24 09:21 08/10/24 09:21 08/10/24 09:21 Laboratory Results - last 24 hr 08/09/24 11:34: POC Glucose 149 H 08/09/24 17:09: POC Glucose 138 H 08/09/24 20:55: POC Glucose 140 H 08/10/24 06:36: POC Glucose 121 H 08/10/24 06:46: WBC 10.9 H, RBC 4.00 L, Hgb 10.1 L, Hct 31.9 L, MCV 79.6 L, MCH 25.2 L, MCHC 31.7 L, RDW 21.1 H, Plt Count 187, MPV 8.0, Neut % (Auto) 79.6, Lymph % (Auto) 12.8, [place] % (Auto) 7.0, Eos % (Auto) 0.2, Baso % (Auto) 0.3, [place] # (Auto) 8.7 H, Lymph # (Auto) 1.4, [place] # (Auto) 0.8, Eos # (Auto) 0.0, Baso # (Auto) 0.0, Sodium 137, Potassium 4.4, Chloride 105, Carbon Dioxide 34 H, Anion Gap 2.4 L, BUN 29 H, Creatinine 0.90, Estimated Creat Clear 63, Estimated GFR 60, Est GFR ( Amer) 72, Glucose 90 D, Calcium 8.2 L, Magnesium 2.0 D I & O for Labs for Last 24 Hours: Intake & Output 08/07/24 08/08/24 08/09/24 08/10/24 23:59 23:59 23:59 23:59 Intake Total 980 / 2420 4160 / 4760 4400 / 4400 Output Total 300 / 300 550 / 550 650 / 650 Balance 680 / 2120 3610 / 4210 3750 / 3750 Weight 203 lb 211 lb 9.6 oz 213 lb 3.2 oz Microbiology Reports for the Last 24 Hours: Microbiology 08/08/24 08:34 Urine,Clean Catch Urine Culture - Final 08/08/24 07:00 Blood Blood Culture - Preliminary NO GROWTH AFTER 48 HOURS 08/08/24 07:00 Blood Blood Culture - Preliminary NO GROWTH AFTER 48 HOURS 08/09/24 06:55 Sputum - Expectorated Sputum Gram Stain - Final Constitutional: Present moderate distress Head: Present normocephalic and atraumatic ENT: Present normal exam, normal oropharynx and mucous membranes moist Neck: Present normal inspection and full ROM Respiratory: Present respiratory distress and able to speak in complete sentences; Absent prolonged expiratory phase or wheezes Cardiac: Present S1/S2, Tachycardia and radial pulses present GI: Present soft and distention; Absent tenderness or guarding Rectal (female): Present deferred (female): Present deferred Skin: Present intact; Absent cyanosis or jaundice Neuro: Present alert, awake and oriented x 3 Extremities: Present normal inspection; Absent clubbing or cyanosis Psychiatric: Present normal affect and cooperative Meds Home Medications and Allergies Home Medications ?Medication ?Instructions ?Recorded ?Confirmed ?Type metformin 500 mg tablet 500 mg PO BIDWMEAL 03/06/18 08/08/24 History montelukast 10 mg tablet 10 mg PO DAILY 03/06/18 08/08/24 History simvastatin 20 mg tablet 20 mg PO HS 03/06/18 08/08/24 History escitalopram oxalate 20 mg tablet 20 mg PO DAILY 11/10/23 08/08/24 History fluticasone 250 mcg-salmeterol 50 1 ea inhalation BID 11/10/23 08/08/24 History mcg/dose blistr powdr for inhalation (Wixela Inhub) oxybutynin chloride 10 mg 20 mg PO DAILY 11/10/23 08/08/24 History tablet,extended release 24 hr magnesium oxide 400 mg (241.3 mg 400 mg PO DAILY 02/20/24 08/08/24 History magnesium) tablet irbesartan 300 mg tablet 300 mg PO DAILY #30 tabs 02/25/24 08/08/24 Rx amlodipine 5 mg tablet 5 mg PO DAILY 05/09/24 08/08/24 History esomeprazole magnesium 40 mg 40 mg PO DAILY 05/09/24 08/08/24 History capsule,delayed release metoprolol succinate 50 mg 50 mg PO DAILY 05/09/24 08/08/24 History tablet,extended release 24 hr tizanidine 2 mg tablet 2 mg PO HSP PRN Muscle Pain 05/09/24 08/08/24 History azelastine 137 mcg (0.1 %) nasal 2 spray intranasal DAILY 05/12/24 08/08/24 History spray fluticasone propionate 50 2 spray intranasal DAILY 05/12/24 08/08/24 History mcg/actuation nasal spray,suspension olopatadine 0.7 % eye drops 1 drp ophthalmic (eye) DAILY 05/12/24 08/08/24 History (Pataday Once Daily Relief) bismuth subsalicylate 262 mg tablet 262 mg PO DAILYP PRN indigestion/ 07/08/24 08/08/24 History upset stomach calcium carbonate (Calcium 600) 600 mg PO DAILY 07/08/24 08/08/24 History cholecalciferol (vitamin D3) 25 25 mcg PO DAILY 07/08/24 08/08/24 History mcg (1,000 unit) tablet (Vitamin D3) cinnamon bark 500 mg capsule 1,000 mg PO DAILY 07/08/24 08/08/24 History (Cinnamon) famotidine 20 mg tablet 20 mg PO DAILY 07/08/24 08/08/24 History glucosamine sulfate 2KCl 1,000 mg 1,000 mg PO DAILY 07/08/24 08/08/24 History tablet mecobalamin (vitamin B12) 1,000 3,000 mcg PO DAILY 07/08/24 08/08/24 History mcg chewable tablet (B12 Active) multivitamin 1 tab PO DAILY 07/08/24 08/08/24 History vit C 250 mg-vit E 90 mg-zinc 40 1 tab PO BID 07/08/24 08/08/24 History mg-copper 1 [id number] capsule (PreserVision AREDS-2) Bifidobacterium infantis 4 mg 4 mg PO DAILY #30 caps 07/15/24 08/08/24 Rx capsule (Align) pregabalin 75 mg capsule (Lyrica) 75 mg PO BID #60 caps 07/15/24 08/08/24 Rx furosemide 40 mg tablet 40 mg PO DAILY 08/08/24 08/08/24 History New Prescriptions to Start Prescriptions: Allergies Allergy/AdvReac Type Severity Reaction Status Date / Time pollen extracts (POLLEN Allergy Intermediate ASTHMA Verified 07/28/24 13:07 EXTRACTS) Results Laboratory Findings 08/10/24 06:46 08/10/24 06:46 PT/INR, D-dimer D-Dimer 1.59 ug/mL (0.0-0.5) H 08/08/24 07:00 Abnormal lab findings: Abnormal Labs 08/08/24 08/08/24 08/08/24 07:00 07:02 11:30 WBC RBC Hgb 10.8 L Hct 33.6 L MCV 78.9 L MCH 25.3 L MCHC RDW 21.2 H Neut % (Auto) Lymph % (Auto) Eos % (Auto) Neut # (Auto) 8.4 H Lymph # (Auto) Neutrophils % (Manual) D-Dimer 1.59 H VBG pCO2 53.0 H VBG pO2 100.9 H VBG HCO3 32.5 H VBG Total CO2 34.2 H VBG O2 Saturation 97.7 H VBG Base Excess 7.8 H VBG Lactic Acid 2.9 H Carbon Dioxide 36 H Anion Gap BUN 27 H Creatinine 1.30 H Estimated GFR 39 L Est GFR ( Amer) 47 L Glucose 165 H POC Glucose Calcium Magnesium 0.8 L Troponin I 0.41 H C-Reactive Protein 20.6 H NT-Pro-B Natriuret Pep 958 H Total Protein Albumin 3.4 L 08/08/24 08/08/24 08/08/24 13:32 14:05 21:40 WBC RBC Hgb Hct MCV MCH MCHC RDW Neut % (Auto) Lymph % (Auto) Eos % (Auto) Neut # (Auto) Lymph # (Auto) Neutrophils % (Manual) D-Dimer VBG pCO2 VBG pO2 VBG HCO3 VBG Total CO2 VBG O2 Saturation VBG Base Excess VBG Lactic Acid Carbon Dioxide Anion Gap BUN Creatinine Estimated GFR Est GFR ( Amer) Glucose POC Glucose 245 H 242 H Calcium Magnesium Troponin I 0.42 H C-Reactive Protein NT-Pro-B Natriuret Pep Total Protein Albumin 08/09/24 08/09/24 08/09/24 06:35 07:25 11:34 WBC RBC 3.99 L Hgb 9.6 L Hct 33.1 L MCV MCH 24.1 L MCHC 29.0 L RDW 21.7 H Neut % (Auto) 85.4 H Lymph % (Auto) 5.8 L Eos % (Auto) 0.0 L Neut # (Auto) 9.1 H Lymph # (Auto) 0.6 L Neutrophils % (Manual) 87 H D-Dimer VBG pCO2 VBG pO2 VBG HCO3 VBG Total CO2 VBG O2 Saturation VBG Base Excess VBG Lactic Acid Carbon Dioxide 35 H Anion Gap BUN 32 H Creatinine Estimated GFR 53 L Est GFR ( Amer) Glucose 129 H POC Glucose 128 H 149 H Calcium 8.0 L Magnesium Troponin I C-Reactive Protein NT-Pro-B Natriuret Pep Total Protein 5.8 L Albumin 3.1 L 08/09/24 08/09/24 08/10/24 17:09 20:55 06:36 WBC RBC Hgb Hct MCV MCH MCHC RDW Neut % (Auto) Lymph % (Auto) Eos % (Auto) Neut # (Auto) Lymph # (Auto) Neutrophils % (Manual) D-Dimer VBG pCO2 VBG pO2 VBG HCO3 VBG Total CO2 VBG O2 Saturation VBG Base Excess VBG Lactic Acid Carbon Dioxide Anion Gap BUN Creatinine Estimated GFR Est GFR ( Amer) Glucose POC Glucose 138 H 140 H 121 H Calcium Magnesium Troponin I C-Reactive Protein NT-Pro-B Natriuret Pep Total Protein Albumin 08/10/24 06:46 WBC 10.9 H RBC 4.00 L Hgb 10.1 L Hct 31.9 L MCV 79.6 L MCH 25.2 L MCHC 31.7 L RDW 21.1 H Neut % (Auto) Lymph % (Auto) Eos % (Auto) Neut # (Auto) 8.7 H Lymph # (Auto) Neutrophils % (Manual) D-Dimer VBG pCO2 VBG pO2 VBG HCO3 VBG Total CO2 VBG O2 Saturation VBG Base Excess VBG Lactic Acid Carbon Dioxide 34 H Anion Gap 2.4 L BUN 29 H Creatinine Estimated GFR Est GFR ( Amer) Glucose POC Glucose Calcium 8.2 L Magnesium Troponin I C-Reactive Protein NT-Pro-B Natriuret Pep Total Protein Albumin Assessment and Plan *Assessment and plan (1) Acute and chronic respiratory failure with hypoxia: Status: Acute Category: Medical Code(s): J96.21 - Acute and chronic respiratory failure with hypoxia (2) Pneumonia: Status: Acute Category: Medical Code(s): J18.9 - Pneumonia, unspecified organism Plan Ms. Nascimento is a 83-year-old female recently admitted to the hospital with a prolonged course of pneumonia exacerbation presented to the ER again complaining of worsening respiratory distress and increasing oxygen requirements and pulmonary was called for further evaluation and management. CTA upon admission, negative for pulmonary embolism. Evidence of pulmonary opacities predominantly in the left lingula and lower lobes with no dense consolidative changes noted. Mild neutrophilic predominant leukocytosis. Afebrile. Hemodynamically stable. Comprehensive respiratory viral PCR panel negative. Patient currently receiving vancomycin and cefepime for possible hospital- acquired pneumonia. Echo January 2024 normal EF at 55, diastolic dysfunction. On examination patient appeared to be in respiratory distress. Needing 4 to 5 L Oxygen supplementation with saturations maintained at 90 to 93%. No significant wheezing noted on auscultation. Admits nasal congestion. Plan: Continue home Advair inhaler therapy Continue oxygen supplementation to maintain O2 saturation of 90% and above Wean antibiotics to clindamycin from pulmonary standpoint pending final culture results Lasix 40 mg IV once Thank you for involving pulmonary in this patient care. Will continue to follow
[2024-08-10 11:53] LABS: POC Glucose,Bedside 133 (70-110)
[2024-08-10] MEDS: FUROSEMIDE 40MG/4ML VIAL 40 MG IV (13:39)
[2024-08-10] MEDS: MULTIVITAMIN TABLET 1 EACH PO (16:47)
--- NOTE | 2024-08-10 18:24 | PC.NURSE ---
PT HAS HAD A FAIR DAY. PT HAS HAD TO BE ON VENTI MASK. SHE HAS HAD MULTIPLE EPISODE OF EDUCATION ON LEAVING THE VENTI MASK ON THIS SHIFT DUE TO HOW LOW HER OXYGEN DROPS. PT STATES THAT MASK IS UNCOMFORTABLE.
[2024-08-10] MEDS: PANTOPRAZOLE 40MG TABLET 40 MG PO (20:24)
[2024-08-10] MEDS: PRAVASTATIN 40MG TAB 40 MG PO (20:24)
[2024-08-10] MEDS: 0.9 % SODIUM CHLORIDE 1000ML 1,000 ML 50 ML IV (20:26)
[2024-08-10 21:22] LABS: POC Glucose,Bedside 124 (70-110)
--- NOTE | 2024-08-10 23:37 | PC.NURSE ---
2210: RT contacted at this time, Pt SOA and sating in low 80s, seems to continue when pt is sleeping. Pt admits to wearing CPAP at home. 2220: Pt placed on CPAP and sating in mid 90s
[2024-08-11] VITALS (9 sets, daily range): BP systolic 132–148; BP diastolic 57–64; PULSE 47–60; RESP 17–20; TEMP 36.7–37.2; O2SAT 92–95; BMI 33.9
[2024-08-11 05:34] LABS: POC Glucose,Bedside 92 (70-110)
[2024-08-11] MEDS: FLUTICASONE/SALMETEROL 250/50MCG DISKUS 1 PUFF IH ×2 (06:19→18:07)
[2024-08-11] MEDS: FLUTICASONE PROP 50MCG NASAL SPRAY 16GM 2 SPRAY NS (08:16)
[2024-08-11] MEDS: CEFEPIME HCL 2 GM in 0.9 % SODIUM CHLORIDE 100 ML IV ×2 (08:16→16:21)
[2024-08-11] MEDS: FAMOTIDINE 20MG TABLET 20 MG PO (08:17)
[2024-08-11] MEDS: AMLODIPINE 5MG TABLET 5 MG PO (08:17)
[2024-08-11] MEDS: IRBESARTAN 300MG TABLET 300 MG PO (08:17)
[2024-08-11] MEDS: MONTELUKAST SODIUM 10MG TAB 10 MG PO (08:17)
[2024-08-11] MEDS: OYSTER SHELL CALCIUM (ELEMENTAL) 500MG TAB 500 MG PO (08:17)
[2024-08-11] MEDS: METOPROLOL SUCCINATE XL 50MG TABLET 50 MG PO (08:17)
[2024-08-11] MEDS: MAGNESIUM OXIDE 400MG TABLET 400 MG PO (08:17)
[2024-08-11] MEDS: LACTOBACILLUS PROBIOTIC COMB CAPSULE 1 CAP PO (08:17)
[2024-08-11] MEDS: CHOLECALCIFEROL 1,000 UNITS (25MCG) TABLET 25 MCG PO (08:17)
[2024-08-11] MEDS: CITALOPRAM 40MG TABLET 40 MG PO (08:17)
[2024-08-11] MEDS: AZELASTINE NASAL SPRAY 30ML BOTTLE NS (08:18)
[2024-08-11] MEDS: PREGABALIN 25MG CAPSULE 75 MG PO ×2 (08:20→21:33)
--- NOTE | 2024-08-11 08:33 | EXP.ACUTE.PN ---
Subjective *Date: 08/11/24 *Time: 08:54 Interval history: After waking patient states she is not short of breath. She denies pain. She remains on CPAP. She is anxious to eat. She assist with exam. Medical Exam Vital signs and Labs for Last 24 Hours: Vital Signs Temp Pulse Pulse Resp BP Pulse Ox O2 Del Method 08/11/24 06:35 CPAP 08/11/24 06:23 CPAP 08/11/24 06:14 08/11/24 04:53 CPAP 08/11/24 04:00 98.0 F 47 L 17 136/64 95 CPAP 08/11/24 04:00 50 L 08/11/24 03:00 CPAP 08/11/24 01:00 CPAP 08/11/24 00:00 50 L 08/11/24 00:00 98.0 F 52 L 18 132/57 L 94 L CPAP 08/10/24 23:00 CPAP 08/10/24 22:29 08/10/24 21:00 Venturi Mask 08/10/24 20:00 50 L 08/10/24 20:00 90 L Venturi Mask 08/10/24 20:00 98.7 F 47 L 18 138/67 92 L Venturi Mask 08/10/24 19:55 91 L Venturi Mask 08/10/24 19:00 Venturi Mask 08/10/24 17:00 Venturi Mask 08/10/24 16:00 50 L 08/10/24 16:00 98.5 F 48 L 20 128/58 L 91 L Venturi Mask 08/10/24 16:00 Venturi Mask 08/10/24 15:00 Venturi Mask 08/10/24 13:55 60 08/10/24 13:00 Nasal Cannula 08/10/24 12:00 98.6 F 54 L 22 126/49 L 93 L Nasal Cannula 08/10/24 11:00 Nasal Cannula 08/10/24 09:21 91 L Nasal Cannula 08/10/24 09:00 Nasal Cannula 08/10/24 08:35 70 O2 Flow Rate FiO2 08/11/24 06:35 08/11/24 06:23 40 08/11/24 06:14 40 08/11/24 04:53 08/11/24 04:00 08/11/24 04:00 08/11/24 03:00 08/11/24 01:00 08/11/24 00:00 08/11/24 00:00 08/10/24 23:00 08/10/24 22:29 40 08/10/24 21:00 08/10/24 20:00 08/10/24 20:00 08/10/24 20:00 08/10/24 19:55 15 50 08/10/24 19:00 15 08/10/24 17:00 15 08/10/24 16:00 08/10/24 16:00 08/10/24 16:00 08/10/24 15:00 08/10/24 13:55 08/10/24 13:00 5 08/10/24 12:00 5 08/10/24 11:00 5 08/10/24 09:21 5 08/10/24 09:00 5 08/10/24 08:35 Intake and Output 08/10/24 08/11/24 08/11/24 19:59 03:59 11:59 Intake Total 1223 / 1223 470 / 1693 Output Total 1200 / 1200 1450 / 2650 400 / 3050 Balance -980 / -957 -400 / -1357 Intake: Intake, Oral Amount 510 / 510 120 / 630 Intake, Total IV Amount 713 / 713 350 / 1063 0.9 % Sodium Chloride 1000ML 1, 363 / 363 250 / 613 000 ml @ 50 mls/hr IV .Q20H [facility] Rx#:[id number] Cefepime HCl 2 gm In 0.9 % 100 / 100 100 / 200 Sodium Chloride 100 ml @ 200 mls/hr IV Q12H [facility] Rx#:[id number] Vancomycin/Water For Inj (Peg) 250 / 250 1.25 gm In 250 ml @ 125 mls/hr IV Q24H [facility] Rx#:[id number] Output: Output, Urine Amount 1200 / 1200 1450 / 2650 400 / 3050 Other: Number of Unmeasured Voids 0 0 Weight 211 lb Patient Weight 08/11/24 11:59 Weight 211 lb Laboratory Results - last 24 hr 08/10/24 11:43: POC Glucose 133 H 08/10/24 20:19: POC Glucose 124 H 08/11/24 05:20: POC Glucose 92 I & O for Labs for Last 24 Hours: Intake & Output 1208/09/24 08/10/24 08/11/24 11:59 11:59 11:59 11:59 Intake Total 3490 / 3490 6050 / 6050 1693 / 1693 Output Total 850 / 850 650 / 650 3050 / 3050 Balance 2640 / 2640 5400 / 5400 -1357 / -1357 Weight 203 lb 211 lb 9.6 oz 213 lb 3.2 oz 211 lb Microbiology Reports for the Last 24 Hours: Microbiology 08/08/24 08:34 Urine,Clean Catch Urine Culture - Final 08/08/24 07:00 Blood Blood Culture - Preliminary NO GROWTH AFTER 48 HOURS 08/08/24 07:00 Blood Blood Culture - Preliminary NO GROWTH AFTER 48 HOURS Constitutional: Present no acute distress Comment:: Awaken for physical assessment. She speaks without dyspnea today. At time of exam patient remains on CPAP. Respiratory: Present wheezes (Posteriorly) and crackles (Posteriorly) Cardiac: Present Regular Rate (Monitor showing sinus bradycardia at 49 and in the 50s while sleeping) GI: Present soft and normal bowel sounds; Absent distention, tenderness or guarding Extremities: Present edema (Unna boot remains on the left lower extremity) Neuro: Present alert (Once awake patient who was in where she is) and awake (Awakened for assessment) Assessment and Plan *Assessment and plan (1) Acute and chronic respiratory failure with hypoxia: Status: Acute Category: Medical Code(s): J96.21 - Acute and chronic respiratory failure with hypoxia (2) Pneumonia: Status: Acute Category: Medical Code(s): J18.9 - Pneumonia, unspecified organism (3) Recurrent pneumonia: Status: Acute Category: Medical Code(s): J18.9 - Pneumonia, unspecified organism (4) Sepsis due to pneumonia: Status: Acute Category: Medical Code(s): J18.9 - Pneumonia, unspecified organism; A41.9 - Sepsis, unspecified organism (5) Acute exacerbation of chronic obstructive pulmonary disease: Status: Acute Category: Medical Code(s): J44.1 - Chronic obstructive pulmonary disease with (acute) exacerbation (6) Acute and chronic respiratory failure: Status: Acute Category: Medical Code(s): J96.20 - Acute and chronic respiratory failure, unspecified whether with hypoxia or hypercapnia (7) Lymphadenopathy, mediastinal: Status: Acute Category: Medical Code(s): R59.0 - Localized enlarged lymph nodes (8) Pulmonary emphysema: Status: Acute Category: Medical Code(s): J43.9 - Emphysema, unspecified (9) DM type 2 (diabetes mellitus, type 2): Status: Acute Category: Medical Code(s): E11.9 - Type 2 diabetes mellitus without complications (10) Left ankle joint deformity: Status: Acute Category: Medical Code(s): M21.962 - Unspecified acquired deformity of left lower leg (11) Obesity: Status: Acute Category: Medical Code(s): E66.9 - Obesity, unspecified (12) Anemia: Status: Acute Category: Medical Code(s): D64.9 - Anemia, unspecified (13) Neuropathy: Status: Acute Category: Medical Code(s): G62.9 - Polyneuropathy, unspecified (14) Depression: Status: Acute Category: Medical Code(s): F32.A - Depression, unspecified (15) GERD (gastroesophageal reflux disease): Status: Acute Category: Medical Code(s): K21.9 - Gastro-esophageal reflux disease without esophagitis (16) Hyperlipidemia: Status: Acute Category: Medical Code(s): E78.5 - Hyperlipidemia, unspecified (17) Elevated troponin: Status: Acute Category: Medical Code(s): R79.89 - Other specified abnormal findings of blood chemistry (18) Gallstone: Status: Acute Category: Medical Code(s): K80.20 - Calculus of gallbladder without cholecystitis without obstruction (19) Hypomagnesemia: Status: Acute Category: Medical Code(s): E83.42 - Hypomagnesemia Plan Patient was seen by Dr. Morris, pulmonology, with plans to continue her Advil inhaler therapy, O2 supplementation to maintain O2 sats of 90% or above, and to wean antibiotics to clindamycin from pulmonary standpoint pending final culture results. He also gave her one-time dose of 40 mg of Lasix. Will continue with current care. Patient needs to be out of bed daily. Pulmonology to follow as well. Physical therapy consult. Also wound care consulted yesterday. Dr. Adamson entry - Saw patient, agree with above note.
--- NOTE | 2024-08-11 08:47 | EXP.PHA.PN ---
Subjective *Date: 08/11/24 *Time: 08:47 Medical Exam Vital signs and Labs for Last 24 Hours: Vital Signs Temp Pulse Pulse Resp BP Pulse Ox O2 Del Method 08/11/24 06:35 CPAP 08/11/24 06:23 CPAP 08/11/24 06:14 08/11/24 04:53 CPAP 08/11/24 04:00 98.0 F 47 L 17 136/64 95 CPAP 08/11/24 04:00 50 L 08/11/24 03:00 CPAP 08/11/24 01:00 CPAP 08/11/24 00:00 50 L 08/11/24 00:00 98.0 F 52 L 18 132/57 L 94 L CPAP 08/10/24 23:00 CPAP 08/10/24 22:29 08/10/24 21:00 Venturi Mask 08/10/24 20:00 50 L 08/10/24 20:00 90 L Venturi Mask 08/10/24 20:00 98.7 F 47 L 18 138/67 92 L Venturi Mask 08/10/24 19:55 91 L Venturi Mask 08/10/24 19:00 Venturi Mask 08/10/24 17:00 Venturi Mask 08/10/24 16:00 50 L 08/10/24 16:00 98.5 F 48 L 20 128/58 L 91 L Venturi Mask 08/10/24 16:00 Venturi Mask 08/10/24 15:00 Venturi Mask 08/10/24 13:55 60 08/10/24 13:00 Nasal Cannula 08/10/24 12:00 98.6 F 54 L 22 126/49 L 93 L Nasal Cannula 08/10/24 11:00 Nasal Cannula 08/10/24 09:21 91 L Nasal Cannula 08/10/24 09:00 Nasal Cannula O2 Flow Rate FiO2 08/11/24 06:35 08/11/24 06:23 40 08/11/24 06:14 40 08/11/24 04:53 08/11/24 04:00 08/11/24 04:00 08/11/24 03:00 08/11/24 01:00 08/11/24 00:00 08/11/24 00:00 08/10/24 23:00 08/10/24 22:29 40 08/10/24 21:00 08/10/24 20:00 08/10/24 20:00 08/10/24 20:00 08/10/24 19:55 15 50 08/10/24 19:00 15 08/10/24 17:00 15 08/10/24 16:00 08/10/24 16:00 08/10/24 16:00 08/10/24 15:00 08/10/24 13:55 08/10/24 13:00 5 08/10/24 12:00 5 08/10/24 11:00 5 08/10/24 09:21 5 08/10/24 09:00 5 Intake and Output 08/10/24 08/11/24 08/11/24 23:59 07:59 15:59 Intake Total 953 / 6093 470 / 470 Output Total 850 / 3300 1000 / 1000 Balance 103 / 2793 -530 / -530 Intake: Intake, Oral Amount 240 / 870 120 / 120 Intake, Total IV Amount 713 / 5223 350 / 350 0.9 % Sodium Chloride 1000ML 1, 363 / 4673 250 / 250 000 ml @ 50 mls/hr IV .Q20H [facility] Rx#:[id number] Cefepime HCl 2 gm In 0.9 % 100 / 300 100 / 100 Sodium Chloride 100 ml @ 200 mls/hr IV Q12H [facility] Rx#:[id number] Vancomycin/Water For Inj (Peg) 250 / 250 1.25 gm In 250 ml @ 125 mls/hr IV Q24H [facility] Rx#:[id number] Output: Output, Urine Amount 850 / 3300 1000 / 1000 Other: Number of Unmeasured Voids 1 0 Weight 95.708 kg Patient Weight 08/11/24 23:59 Weight 95.708 kg Laboratory Results - last 24 hr 08/10/24 11:43: POC Glucose 133 H 08/10/24 20:19: POC Glucose 124 H 08/11/24 05:20: POC Glucose 92 I & O for Labs for Last 24 Hours: Intake & Output 08/08/24 08/09/24 08/10/24 08/11/24 23:59 23:59 23:59 23:59 Intake Total 980 / 2420 4160 / 4760 5623 / 6093 470 / 470 Output Total 300 / 300 550 / 550 2700 / 3300 1000 / 1000 Balance 680 / 2120 3610 / 4210 2923 / 2793 -530 / -530 Weight 92.079 kg 95.98 kg 96.706 kg 95.708 kg Microbiology Reports for the Last 24 Hours: Microbiology 08/08/24 08:34 Urine,Clean Catch Urine Culture - Final 08/08/24 07:00 Blood Blood Culture - Preliminary NO GROWTH AFTER 48 HOURS 08/08/24 07:00 Blood Blood Culture - Preliminary NO GROWTH AFTER 48 HOURS The patient's infection will respond to the chosen ABx?: Yes (SPUTUM PENDING, BLOOD CX NO GROWTH AT 48 HR.) Is the patient receiving the right drug, dose, and route?: Yes Could a more targeted ABx be ordered?: No
[2024-08-11 09:00] LABS: Basophils # 0.1 K/mm3 (0-0.2); Basophils % 0.9 % (0.1-2.0); Eosinophils # 0.1 K/mm3 (0.0-0.4); Hematocrit 32.8 % (37.0-47.0); Hemoglobin 10.1 g/dL (12.2-16.2); Lymphocytes # 1.1 K/mm3 (0.7-4.5); Lymphocytes % 15.7 % (10-50); Mean Corpuscular HGB Conc 30.8 g/dL (31.8-35.4); Mean Corpuscular Hemoglobin 24.6 pg (27.0-31.2); Mean Corpuscular Volume 79.8 fl (81-99); Mean Platelet Volume 8.8 fl (7.4-10.4); Monocytes # 0.5 K/mm3 (0.1-1.0); Monocytes % 7.7 % (1.7-9.3); Neutrophils % 74.7 % (37.0-80.0); Platelet Count 141 K/mm3 (142-424); Red Blood Count 4.12 M/mm3 (4.20-5.40); Red Cell Distribution Width 20.9 % (11.5-17.5); White Blood Count 6.7 K/mm3 (4.8-10.8)
[2024-08-11 09:26] LABS: Vancomycin,Trough 14.2 ug/mL (5.0-10.0)
--- NOTE | 2024-08-11 09:46 | P.PN_ITS ---
Subjective *Date: 08/11/24 *Time: 10:53 Interval history: No acute respiratory events overnight. Patient denies any new respiratory complaints. Pulmonology Exam Inpatient Vital signs and Labs for Last 24 Hours: Temp Pulse Resp BP Pulse Ox O2 Del Method O2 Flow Rate 98.0 F 55 L 18 137/61 95 Nasal Cannula 6 08/11/24 08:00 08/11/24 08:00 08/11/24 08:00 08/11/24 08:00 08/11/24 08:00 08/11/24 08:00 08/11/24 08:00 FiO2 40 08/11/24 06:23 Laboratory Results - last 24 hr 08/10/24 11:43: POC Glucose 133 H 08/10/24 20:19: POC Glucose 124 H 08/11/24 05:20: POC Glucose 92 08/11/24 08:20: WBC 6.7 D, RBC 4.12 L, Hgb 10.1 L, Hct 32.8 L, MCV 79.8 L, MCH 24.6 L, MCHC 30.8 L, RDW 20.9 H, Plt Count 141 L, MPV 8.8, Neut % (Auto) 74.7, Lymph % (Auto) 15.7, Christian % (Auto) 7.7, Eos % (Auto) 1.0, Baso % (Auto) 0.9, Neut # (Auto) 5.0, Lymph # (Auto) 1.1, Christian # (Auto) 0.5, Eos # (Auto) 0.1, Baso # (Auto) 0.1, Vancomycin Trough 14.2 H Temp Pulse Resp BP Pulse Ox O2 Del Method O2 Flow Rate 98.8 F 57 L 24 138/59 L 91 L Nasal Cannula 5 08/10/24 08:00 08/10/24 08:00 08/10/24 08:00 08/10/24 08:00 08/10/24 09:21 08/10/24 09:21 08/10/24 09:21 Laboratory Results - last 24 hr 08/09/24 11:34: POC Glucose 149 H 08/09/24 17:09: POC Glucose 138 H 08/09/24 20:55: POC Glucose 140 H 08/10/24 06:36: POC Glucose 121 H 08/10/24 06:46: WBC 10.9 H, RBC 4.00 L, Hgb 10.1 L, Hct 31.9 L, MCV 79.6 L, MCH 25.2 L, MCHC 31.7 L, RDW 21.1 H, Plt Count 187, MPV 8.0, Neut % (Auto) 79.6, Lymph % (Auto) 12.8, Christian % (Auto) 7.0, Eos % (Auto) 0.2, Baso % (Auto) 0.3, Neut # (Auto) 8.7 H, Lymph # (Auto) 1.4, Christian # (Auto) 0.8, Eos # (Auto) 0.0, Baso # (Auto) 0.0, Sodium 137, Potassium 4.4, Chloride 105, Carbon Dioxide 34 H, Anion Gap 2.4 L, BUN 29 H, Creatinine 0.90, Estimated Creat Clear 63, Estimated GFR 60, Est GFR ( Amer) 72, Glucose 90 D, Calcium 8.2 L, Magnesium 2.0 D I & O for Labs for Last 24 Hours: Intake & Output 08/08/24 08/09/24 08/10/24 08/11/24 23:59 23:59 23:59 23:59 Intake Total 980 / 2420 4160 / 4760 5623 / 6093 470 / 470 Output Total 300 / 300 550 / 550 2700 / 3300 1000 / 1000 Balance 680 / 2120 3610 / 4210 2923 / 2793 -530 / -530 Weight 203 lb 211 lb 9.6 oz 213 lb 3.2 oz 211 lb Intake & Output 08/07/24 08/08/24 08/09/24 08/10/24 23:59 23:59 23:59 23:59 Intake Total 980 / 2420 4160 / 4760 4400 / 4400 Output Total 300 / 300 550 / 550 650 / 650 Balance 680 / 2120 3610 / 4210 3750 / 3750 Weight 203 lb 211 lb 9.6 oz 213 lb 3.2 oz Microbiology Reports for the Last 24 Hours: Microbiology 08/08/24 08:34 Urine,Clean Catch Urine Culture - Final 08/08/24 07:00 Blood Blood Culture - Preliminary NO GROWTH AFTER 48 HOURS 08/08/24 07:00 Blood Blood Culture - Preliminary NO GROWTH AFTER 48 HOURS Microbiology 08/08/24 08:34 Urine,Clean Catch Urine Culture - Final 08/08/24 07:00 Blood Blood Culture - Preliminary NO GROWTH AFTER 48 HOURS 08/08/24 07:00 Blood Blood Culture - Preliminary NO GROWTH AFTER 48 HOURS 08/09/24 06:55 Sputum - Expectorated Sputum Gram Stain - Final Constitutional: Present moderate distress Head: Present normocephalic and atraumatic ENT: Present normal exam, normal oropharynx and mucous membranes moist Neck: Present normal inspection and full ROM Respiratory: Present respiratory distress and able to speak in complete sent[place] loy; Absent prolonged expiratory phase or wheezes Cardiac: Present S1/S2, Tachycardia and radial pulses present GI: Present soft and distention; Absent tenderness or guarding Rectal (female): Present deferred (female): Present deferred Skin: Present intact; Absent cyanosis or jaundice Neuro: Present alert, awake and oriented x 3 Extremities: Present normal inspection; Absent clubbing or cyanosis Psychiatric: Present normal affect and cooperative Assessment and Plan *Assessment and plan (1) Acute and chronic respiratory failure with hypoxia: Status: Acute Category: Medical Code(s): J96.21 - Acute and chronic respiratory failure with hypoxia (2) Pneumonia: Status: Acute Category: Medical Code(s): J18.9 - Pneumonia, unspecified organism Plan Ms. Nascimento is a 83-year-old female recently admitted to the hospital with a prolonged course of pneumonia exacerbation presented to the ER again complaining of worsening respiratory distress and increasing oxygen requirements and pulmonary was called for further evaluation and management. CTA upon admission, negative for pulmonary embolism. Evidence of pulmonary opacities predominantly in the left lingula and lower lobes with no dense consolidative changes noted. Mild neutrophilic predominant leukocytosis. A febrile. Hemodynamically stable. Comprehensive respiratory viral PCR panel negative. Patient currently receiving vancomycin and cefepime for possible hospital- acquired pneumonia. Echo January 2024 normal EF at 55, diastolic dysfunction. On examination patient appeared to be in respiratory distress. Needing 4 to 5 L On initial examination oxygen supplementation with saturations maintained at 90 to 93%. No significant wheezing noted on auscultation. Admits nasal congestion. Interval update: Net negative volume status. Continue to receive vancomycin and cefepime. Improving leukocytosis. Improving oxygen requirements, oxygen weaned to 3 L this morning. On 6 L this morning saturating 96%. Increased overnight. Plan: Lasix 40 mg IV once again today Continue home Advair inhaler therapy Continue oxygen supplementation to maintain O2 saturation of 90% and above Wean antibiotics to clindamycin from pulmonary standpoint pending final culture results Concern for concomitant diastolic heart failure, recommend cardiology consult Thank you for involving pulmonary in this patient care. Will continue to follow
[2024-08-11 09:59] LABS: Chloride 104 mmol/L (98-107); Potassium 4.5 mmoL/L (3.5-5.1); Sodium 137 mmol/L (136-145)
[2024-08-11 10:02] LABS: Blood Urea Nitrogen 25 mg/dl (7-17); Creatinine Clearance Estimated 62 mL/min (50-200); Estimated Glomerular Filt Rate 68 ml/min (>60); GFR (African American) 82 ML/MIN (>60)
[2024-08-11 10:03] LABS: Anion Gap 3.5 mEq/L (5-15); Calcium 8.6 mg/dl (8.4-10.2); Carbon Dioxide 34 mmol/L (22.0-30.0); Glucose 95 mg/dl (74-100)
[2024-08-11] MEDS: VANCOMYCIN/WATER FOR INJ (PEG) 1.25 GM/250 ML PIGGYBACK IV (11:16)
[2024-08-11] MEDS: FUROSEMIDE 40MG/4ML VIAL 40 MG IV (11:22)
--- NOTE | 2024-08-11 11:42 | HMH.PTEV ---
Physical Therapy Evaluation Rehab PT IP Evaluation Start: 08/11/24 08:44 Freq: ONCE Status: Active Protocol: Document 08/11/24 11:34 SHALINI (Rec: 08/11/24 11:42 PHOANDREW [id number]) Subjective/History History History 83 year old patient of [facility] that was recently admitted into [facility] due to debility and chronic respiratory failure. She has had multiple recent hospital admission due to inability to stand/ambulate and for pneumonia/hypoxia/respiratory failure. She has no recollection of why she was brought to the ER yesterday but per the ER record and the EMS report patient was found to be hypoxic with sats in the mid 70's at [place] yesterday despite using her supplemental oxygen at 3 L/min /nc. Pt is generally only able to transfer to w/c for mobility, but does so independently at baseline. She presents with unna boot in place on L lower leg and she is unsure of how long it has been on. Subjective Subjective Currently she reports no c/o pain, presents on 4L O2 via NC , agrees to wound care and mobility assessments. New diagnosis of cancer in past 12 No months? Rehab PT IP Eval Objective Appearance Patient Behavior Appropriate Patient Orientation Person,Place Difficulty following instructions none Speech Pattern Clear Ambulation Patient Able to Ambulate No Balance Ability to Arise Able, uses arms to help Sitting Balance Steady, safe Standing Balance Unsteady Dynamic Sitting Balance Ability Good Dynamic Standing Balance Ability Poor Transfers Bed Transfer Ability Supervision/Stand by Chair Transfer Ability Minimal x 1 (25% assist) Sit to Stand Bed Transfer Ability Minimal x 1 (25% assist) Sit to Stand Chair Transfer Ability Minimal x 1 (25% assist) Rehab PT IP prob,goals,plan Problems Date of Evaluation: 08/11/24 PT IP Problems Bed Mobility,Transfers Rehab Potential Rehab Potential Good Plan PT Intervention Plan Bed Mobility,Transfers, Therapeutic Exercise PT Plan Frequency Daily Duration LOS Discharge Goals Bed Transfer Ability Independent Sit to Stand Chair Transfer Ability Contact Guard/Hand Hold Discharge Plan PT Discharge Plan Pt is currently most appropriate to return to SNF for rehab placement once medically stable for d/c. Skilled therapy is indicate to increase strength and improve transfer ability in order to return pt to [facility]. Eval Complexity Eval Charge Codes 41753 - High Complexity PHYSICIAN CERTIFICATION: I certify the specified therapy services for Kirstie Stephie New are required, authorized, and reviewed every 30 days.
--- NOTE | 2024-08-11 11:42 | HMH.PTWOUND ---
Rehab Inpt Wound Evaluation Rehab IP Wound Evaluation Start: 08/11/24 08:45 Freq: ONCE Status: Active Protocol: Document 08/11/24 11:34 SHALINI (Rec: 08/11/24 11:42 SHALINI [id number]) Rehab PT Wound Assessment Subjective Subjective 83 year old patient of [facility] that was recently admitted into [facility] due to debility and chronic respiratory failure. She has had multiple recent hospital admission due to inability to stand/ambulate and for pneumonia/hypoxia/respiratory failure. She has no recollection of why she was brought to the ER yesterday but per the ER record and the EMS report patient was found to be hypoxic with sats in the mid 70's at [place] yesterday despite using her supplemental oxygen at 3 L/min /nc. She presents with unna boot in place on L lower leg and she is unsure of how long it has been on. 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 Yes Wound Length (cm) 3.0 Wound Width (cm) 2.0 Wound Depth (cm) 0.1 Wound Bed Appearance [place] Wound Margins Description Well Defined Surrounding Tissue Appearance [place] Edema Type Pitting Edema Degree 1+ Query Text:1+ Trace, Barely Detectable, Rebound 15-30 seconds 2+ Moderate, Slight Indentation, Rebound 10-20 seconds 3+ Deep, Deeper Indentation, Rebound > 30 seconds 4+ Very Deep, Rebound > 60 seconds Wound Drainage Description Serosanguineous Drainage Amount Small Wound Topical Solution/Irrigant Saline Irrigant Primary Dressing Unna Boot Dressing Change Patient Tolerance Tolerated Well Plan/Recommendation Comment Continue dressing changes once every 3-5 days for UNNA boot until wound is fully healed. PHYSICIAN CERTIFICATION: I certify the specified therapy services for Kirstie Nascimento are required, authorized, and reviewed every 30 days.
--- NOTE | 2024-08-11 13:17 | EXP.PHA.CONS ---
Pharmacy Consult Date: 08/11/24 Time: 13:17 Referring provider: DR. ADAMSON Reason for Consult:: VANCOMYCIN LEVEL Allergies Allergy/AdvReac Type Severity Reaction Status Date / Time pollen extracts (POLLEN Allergy Intermediate ASTHMA Verified 07/28/24 13:07 EXTRACTS) Home Medications ?Medication ?Instructions ?Recorded ?Confirmed ?Type metformin 500 mg tablet 500 mg PO BIDWMEAL 03/06/18 08/08/24 History montelukast 10 mg tablet 10 mg PO DAILY 03/06/18 08/08/24 History simvastatin 20 mg tablet 20 mg PO HS 03/06/18 08/08/24 History escitalopram oxalate 20 mg tablet 20 mg PO DAILY 11/10/23 08/08/24 History fluticasone 250 mcg-salmeterol 50 1 ea inhalation BID 11/10/23 08/08/24 History mcg/dose blistr powdr for inhalation (Wixela Inhub) oxybutynin chloride 10 mg 20 mg PO DAILY 11/10/23 08/08/24 History tablet,extended release 24 hr magnesium oxide 400 mg (241.3 mg 400 mg PO DAILY 02/20/24 08/08/24 History magnesium) tablet irbesartan 300 mg tablet 300 mg PO DAILY #30 tabs 02/25/24 08/08/24 Rx amlodipine 5 mg tablet 5 mg PO DAILY 05/09/24 08/08/24 History esomeprazole magnesium 40 mg 40 mg PO DAILY 05/09/24 08/08/24 History capsule,delayed release metoprolol succinate 50 mg 50 mg PO DAILY 05/09/24 08/08/24 History tablet,extended release 24 hr tizanidine 2 mg tablet 2 mg PO HSP PRN Muscle Pain 05/09/24 08/08/24 History azelastine 137 mcg (0.1 %) nasal 2 spray intranasal DAILY 05/12/24 08/08/24 History spray fluticasone propionate 50 2 spray intranasal DAILY 05/12/24 08/08/24 History mcg/actuation nasal spray,suspension olopatadine 0.7 % eye drops 1 drp ophthalmic (eye) DAILY 05/12/24 08/08/24 History (Pataday Once Daily Relief) bismuth subsalicylate 262 mg tablet 262 mg PO DAILYP PRN indigestion/ 07/08/24 08/08/24 History upset stomach calcium carbonate (Calcium 600) 600 mg PO DAILY 07/08/24 08/08/24 History cholecalciferol (vitamin D3) 25 25 mcg PO DAILY 07/08/24 08/08/24 History mcg (1,000 unit) tablet (Vitamin D3) cinnamon bark 500 mg capsule 1,000 mg PO DAILY 07/08/24 08/08/24 History (Cinnamon) famotidine 20 mg tablet 20 mg PO DAILY 07/08/24 08/08/24 History glucosamine sulfate 2KCl 1,000 mg 1,000 mg PO DAILY 07/08/24 08/08/24 History tablet mecobalamin (vitamin B12) 1,000 3,000 mcg PO DAILY 07/08/24 08/08/24 History mcg chewable tablet (B12 Active) multivitamin 1 tab PO DAILY 07/08/24 08/08/24 History vit C 250 mg-vit E 90 mg-zinc 40 1 tab PO BID 07/08/24 08/08/24 History mg-copper 1 [id number] capsule (PreserVision AREDS-2) Bifidobacterium infantis 4 mg 4 mg PO DAILY #30 caps 07/15/24 08/08/24 Rx capsule (Align) pregabalin 75 mg capsule (Lyrica) 75 mg PO BID #60 caps 07/15/24 08/08/24 Rx furosemide 40 mg tablet 40 mg PO DAILY 08/08/24 08/08/24 History New Prescriptions to Start Prescriptions: Height: 1.68 m Weight: 95.708 kg Laboratory Results:: Laboratory Results - last 24 hr 08/10/24 20:19: POC Glucose 124 H 08/11/24 05:20: POC Glucose 92 08/11/24 08:20: WBC 6.7 D, RBC 4.12 L, Hgb 10.1 L, Hct 32.8 L, MCV 79.8 L, MCH 24.6 L, MCHC 30.8 L, RDW 20.9 H, Plt Count 141 L, MPV 8.8, Neut % (Auto) 74.7, Lymph % (Auto) 15.7, [place] % (Auto) 7.7, Eos % (Auto) 1.0, Baso % (Auto) 0.9, Neut # (Auto) 5.0, Lymph # (Auto) 1.1, [place] # (Auto) 0.5, Eos # (Auto) 0.1, Baso # (Auto) 0.1, Sodium 137, Potassium 4.5, Chloride 104, Carbon Dioxide 34 H, Anion Gap 3.5 L, BUN 25 H, Creatinine 0.80, Estimated Creat Clear 62, Estimated GFR 68, Est GFR ( Amer) 82, Glucose 95, Calcium 8.6, Vancomycin Trough 14.2 H Medical History: Medical History (Updated 08/09/24 @ 09:23 by Allan Adamson MD) Pulmonary emphysema Chronic respiratory failure with hypoxia Recurrent pneumonia Acute and chronic respiratory failure with hypoxia Lumbar radiculopathy Degenerative disc disease, lumbar Paratracheal lymphadenopathy CAP (community acquired pneumonia) RICHIE (acute kidney injury) Hypertensive urgency Elevated brain natriuretic peptide (BNP) level Hypertensive emergency CKD (chronic kidney disease) stage 3, GFR 30-59 ml/min Pneumonia Allergic rhinitis Colon polyps Hemorrhoids, internal Osteoporosis Herpes zoster Closed left ankle fracture Closed left hip fracture Lumbar spinal stenosis Lumbar compression fracture Ocular melanoma COPD (chronic obstructive pulmonary disease) Mediastinal lymphadenopathy Sleep apnea Asthma Hyperlipidemia Neuropathy Depression GERD (gastroesophageal reflux disease) Arthritis Hypertension Diabetes Assessment and Plan Assessment and plan all Dx Assessment and Plan for all problems:: PATIENT'S VANCOMYCIN TROUGH LEVEL WAS 14.2 MCG/ML THIS AM. RECOMMEND CONTINUING WITH VANCOMYCIN 1250 MG Q24H AT THIS TIME.
[2024-08-11 14:15] LABS: Vancomycin,Peak 29.6 ug/ml (11-39)
[2024-08-11] MEDS: MULTIVITAMIN TABLET 1 EACH PO (16:21)
[2024-08-11] MEDS: PANTOPRAZOLE 40MG TABLET 40 MG PO (21:33)
[2024-08-11] MEDS: PRAVASTATIN 40MG TAB 40 MG PO (21:33)
[2024-08-12] VITALS (12 sets, daily range): BP systolic 130–150; BP diastolic 62–74; PULSE 50–75; RESP 16–24; TEMP 36.6–37.6; O2SAT 90–97; BMI 33.5
[2024-08-12] MEDS: CEFEPIME HCL 2 GM in 0.9 % SODIUM CHLORIDE 100 ML IV ×4 (00:09→23:41)
[2024-08-12 06:18] LABS: POC Glucose,Bedside 107 (70-110)
[2024-08-12] MEDS: FLUTICASONE/SALMETEROL 250/50MCG DISKUS 1 PUFF IH ×2 (06:29→18:13)
[2024-08-12] MEDS: MONTELUKAST SODIUM 10MG TAB 10 MG PO (08:12)
[2024-08-12] MEDS: LACTOBACILLUS PROBIOTIC COMB CAPSULE 1 CAP PO (08:12)
[2024-08-12] MEDS: IRBESARTAN 300MG TABLET 300 MG PO (08:12)
[2024-08-12] MEDS: AMLODIPINE 5MG TABLET 5 MG PO (08:13)
[2024-08-12] MEDS: CHOLECALCIFEROL 1,000 UNITS (25MCG) TABLET 25 MCG PO (08:13)
[2024-08-12] MEDS: MAGNESIUM OXIDE 400MG TABLET 400 MG PO (08:13)
[2024-08-12] MEDS: AZELASTINE NASAL SPRAY 30ML BOTTLE NS (08:13)
[2024-08-12] MEDS: OYSTER SHELL CALCIUM (ELEMENTAL) 500MG TAB 500 MG PO (08:13)
[2024-08-12] MEDS: FLUTICASONE PROP 50MCG NASAL SPRAY 16GM 2 SPRAY NS (08:13)
[2024-08-12] MEDS: PREGABALIN 25MG CAPSULE 75 MG PO ×2 (08:13→20:33)
[2024-08-12] MEDS: FAMOTIDINE 20MG TABLET 20 MG PO (08:13)
[2024-08-12] MEDS: CITALOPRAM 40MG TABLET 40 MG PO (08:18)
--- NOTE | 2024-08-12 08:20 | P.PN_ITS ---
Subjective *Date: 08/12/24 *Time: 08:51 Interval history: The patient states she is feeling a little better this morning. She is tired. She denies any pain. She has not eaten yet this morning. Medical Exam Vital signs and Labs for Last 24 Hours: Vital Signs Temp Pulse Pulse Resp BP Pulse Ox O2 Del Method 08/12/24 06:34 94 L CPAP 08/12/24 06:30 08/12/24 04:00 50 L 08/12/24 04:00 98.2 F 53 L 18 143/70 H 95 CPAP 08/12/24 02:00 08/12/24 00:00 60 08/12/24 00:00 99.6 F 52 L 17 138/68 97 CPAP 08/11/24 22:00 08/11/24 20:00 Room Air 08/11/24 20:00 50 L 08/11/24 20:00 99.0 F 51 L 18 148/61 H 93 L Nasal Cannula 08/11/24 19:00 Nasal Cannula 08/11/24 18:08 94 L Nasal Cannula 08/11/24 17:00 Nasal Cannula 08/11/24 16:00 50 L 08/11/24 16:00 98.7 F 58 L 18 134/63 92 L Nasal Cannula 08/11/24 16:00 95 Nasal Cannula 08/11/24 15:00 Nasal Cannula 08/11/24 13:00 Nasal Cannula 08/11/24 12:00 60 08/11/24 12:00 98.7 F 52 L 20 134/63 92 L Nasal Cannula 08/11/24 11:00 Nasal Cannula 08/11/24 09:00 Room Air O2 Flow Rate FiO2 08/12/24 06:34 40 08/12/24 06:30 40 08/12/24 04:00 08/12/24 04:00 08/12/24 02:00 40 08/12/24 00:00 08/12/24 00:00 08/11/24 22:00 40 08/11/24 20:00 08/11/24 20:00 08/11/24 20:00 3 08/11/24 19:00 3 08/11/24 18:08 3 08/11/24 17:00 3.5 08/11/24 16:00 08/11/24 16:00 3.5 08/11/24 16:00 3 08/11/24 15:00 3 08/11/24 13:00 6 08/11/24 12:00 08/11/24 12:00 6 08/11/24 11:00 6 08/11/24 09:00 Intake and Output 08/11/24 08/12/24 08/12/24 19:59 03:59 11:59 Intake Total 630 / 630 Output Total 1500 / 2300 500 / 2300 300 / 2300 Balance -870 / -1670 -500 / -1670 -300 / -1670 Intake: Intake, Oral Amount 630 / 630 Output: Output, Urine Amount 1500 / 2300 500 / 2300 300 / 2300 Other: Number of Unmeasured Voids 1 0 0 Number of Urine Attends/Diapers 3 Number of Bowel Movements 1 Weight 211 lb 209 lb Patient Weight 08/12/24 11:59 Weight 209 lb Laboratory Results - last 24 hr 08/11/24 08:20: WBC 6.7 D, RBC 4.12 L, Hgb 10.1 L, Hct 32.8 L, MCV 79.8 L, MCH 24.6 L, MCHC 30.8 L, RDW 20.9 H, Plt Count 141 L, MPV 8.8, Neut % (Auto) 74.7, Lymph % (Auto) 15.7, [place] % (Auto) 7.7, Eos % (Auto) 1.0, Baso % (Auto) 0.9, Neut # (Auto) 5.0, Lymph # (Auto) 1.1, [place] # (Auto) 0.5, Eos # (Auto) 0.1, Baso # (Auto) 0.1, Sodium 137, Potassium 4.5, Chloride 104, Carbon Dioxide 34 H, Anion Gap 3.5 L, BUN 25 H, Creatinine 0.80, Estimated Creat Clear 62, Estimated GFR 68, Est GFR ( Amer) 82, Glucose 95, Calcium 8.6, Vancomycin Trough 14.2 H 08/11/24 13:25: Vancomycin Peak 29.6 08/12/24 05:56: POC Glucose 107 I & O for Labs for Last 24 Hours: Intake & Output 08/09/24 08/10/24 08/11/24 08/12/24 11:59 11:59 11:59 11:59 Intake Total 3490 / 3490 6050 / 6050 1693 / 1693 630 / 630 Output Total 850 / 850 650 / 650 3050 / 3050 2300 / 2300 Balance 2640 / 2640 5400 / 5400 -1357 / -1357 -1670 / -1670 Weight 211 lb 9.6 oz 213 lb 3.2 oz 211 lb 209 lb Microbiology Reports for the Last 24 Hours: Microbiology 08/08/24 07:00 Blood Blood Culture - Preliminary NO GROWTH AFTER 4 DAYS 08/08/24 07:00 Blood Blood Culture - Preliminary NO GROWTH AFTER 4 DAYS 08/09/24 06:55 Sputum - Expectorated Sputum Gram Stain - Final 08/09/24 06:55 Sputum - Expectorated Sputum Sputum Culture - Preliminary Constitutional: Present no acute distress Comment:: Awaken for physical assessment. At time of exam patient remains on CPAP. Respiratory: Present wheezes (Posteriorly) and crackles (Posteriorly) Cardiac: Present Regular Rate (Monitor showing sinus bradycardia at 49 and in the 50s while sleeping) GI: Present soft and normal bowel sounds; Absent distention, tenderness or guarding Extremities: Present edema (Unna boot remains on the left lower extremity) Skin: Present intact Neuro: Present alert (Once awake patient who was in where she is) and awake (Awakened for assessment) Assessment and Plan *Assessment and plan (1) Acute and chronic respiratory failure with hypoxia: Status: Acute Category: Medical Code(s): J96.21 - Acute and chronic respiratory failure with hypoxia (2) Pneumonia: Status: Acute Category: Medical Code(s): J18.9 - Pneumonia, unspecified organism (3) Recurrent pneumonia: Status: Acute Category: Medical Code(s): J18.9 - Pneumonia, unspecified organism (4) Sepsis due to pneumonia: Status: Acute Category: Medical Code(s): J18.9 - Pneumonia, unspecified organism; A41.9 - Sepsis, unspecified organism (5) Acute exacerbation of chronic obstructive pulmonary disease: Status: Acute Category: Medical Code(s): J44.1 - Chronic obstructive pulmonary disease with (acute) exacerbation (6) Acute and chronic respiratory failure: Status: Acute Category: Medical Code(s): J96.20 - Acute and chronic respiratory failure, unspecified whether with hypoxia or hypercapnia (7) Lymphadenopathy, mediastinal: Status: Acute Category: Medical Code(s): R59.0 - Localized enlarged lymph nodes (8) Pulmonary emphysema: Status: Acute Category: Medical Code(s): J43.9 - Emphysema, unspecified (9) DM type 2 (diabetes mellitus, type 2): Status: Acute Category: Medical Code(s): E11.9 - Type 2 diabetes mellitus without complications (10) Left ankle joint deformity: Status: Acute Category: Medical Code(s): M21.962 - Unspecified acquired deformity of left lower leg (11) Obesity: Status: Acute Category: Medical Code(s): E66.9 - Obesity, unspecified (12) Anemia: Status: Acute Category: Medical Code(s): D64.9 - Anemia, unspecified (13) Neuropathy: Status: Acute Category: Medical Code(s): G62.9 - Polyneuropathy, unspecified (14) Depression: Status: Acute Category: Medical Code(s): F32.A - Depression, unspecified (15) GERD (gastroesophageal reflux disease): Status: Acute Category: Medical Code(s): K21.9 - Gastro-esophageal reflux disease without esophagitis (16) Hyperlipidemia: Status: Acute Category: Medical Code(s): E78.5 - Hyperlipidemia, unspecified (17) Elevated troponin: Status: Acute Category: Medical Code(s): R79.89 - Other specified abnormal findings of blood chemistry (18) Gallstone: Status: Acute Category: Medical Code(s): K80.20 - Calculus of gallbladder without cholecystitis without obstruction (19) Hypomagnesemia: Status: Acute Category: Medical Code(s): E83.42 - Hypomagnesemia Plan Patient was seen by Dr. Morris who gave her a dose of lasix 40 mg IV yesterday and wanted to continue home Advair inhaler therapy, continue oxygen supplementation to maintain O2 saturation of 90% and above, and wean antibiotics to clindamycin. He did recommend a cardiology consult. Will discuss further care with Dr. Adamson. Dr. Adamson entry - Saw patient, agree with above note. Patient is more alert today but is less oriented, OK for cardiology consultation.
--- NOTE | 2024-08-12 08:35 | PC.NURSE ---
Pt. taken off bipap to take morning medications and eat breakfast. O2 applied via NC @ 3L. Pt. states she slept well and feels good this morning. Assisted pt. with breakfast tray. No other needs at this time.
--- NOTE | 2024-08-12 08:51 | PC.NURSE ---
08/12/24 0700 Pt. alert and orientated x 4. Pt. had a stable night. slept most of night. Pt. VSS. personal items and call steel in reach.
--- NOTE | 2024-08-12 09:44 | P.PN_ITS ---
Subjective *Date: 08/12/24 *Time: 11:42 Interval history: No acute respiratory events overnight. Pulmonology Exam Inpatient Vital signs and Labs for Last 24 Hours: Temp Pulse Resp BP Pulse Ox O2 Del Method O2 Flow Rate 98.4 F 53 L 19 134/73 94 L CPAP 2 08/12/24 08:00 08/12/24 08:00 08/12/24 08:00 08/12/24 08:00 08/12/24 08:00 08/12/24 08:00 08/12/24 07:00 FiO2 40 08/12/24 06:34 Laboratory Results - last 24 hr 08/11/24 08:20: Sodium 137, Potassium 4.5, Chloride 104, Carbon Dioxide 34 H, Anion Gap 3.5 L, BUN 25 H, Creatinine 0.80, Estimated Creat Clear 62, Estimated GFR 68, Est GFR ( Amer) 82, Glucose 95, Calcium 8.6 08/11/24 13:25: Vancomycin Peak 29.6 08/12/24 05:56: POC Glucose 107 Temp Pulse Resp BP Pulse Ox O2 Del Method O2 Flow Rate 98.8 F 57 L 24 138/59 L 91 L Nasal Cannula 5 08/10/24 08:00 08/10/24 08:00 08/10/24 08:00 08/10/24 08:00 08/10/24 09:21 08/10/24 09:21 08/10/24 09:21 Laboratory Results - last 24 hr 08/09/24 11:34: POC Glucose 149 H 08/09/24 17:09: POC Glucose 138 H 08/09/24 20:55: POC Glucose 140 H 08/10/24 06:36: POC Glucose 121 H 08/10/24 06:46: WBC 10.9 H, RBC 4.00 L, Hgb 10.1 L, Hct 31.9 L, MCV 79.6 L, MCH 25.2 L, MCHC 31.7 L, RDW 21.1 H, Plt Count 187, MPV 8.0, Neut % (Auto) 79.6, Lymph % (Auto) 12.8, [place] % (Auto) 7.0, Eos % (Auto) 0.2, Baso % (Auto) 0.3, Neut # (Auto) 8.7 H, Lymph # (Auto) 1.4, [place] # (Auto) 0.8, Eos # (Auto) 0.0, Baso # (Auto) 0.0, Sodium 137, Potassium 4.4, Chloride 105, Carbon Dioxide 34 H, Anion Gap 2.4 L, BUN 29 H, Creatinine 0.90, Estimated Creat Clear 63, Estimated GFR 60, Est GFR ( Amer) 72, Glucose 90 D, Calcium 8.2 L, Magnesium 2.0 D I & O for Labs for Last 24 Hours: Intake & Output 08/09/24 08/10/24 08/11/24 08/12/24 23:59 23:59 23:59 23:59 Intake Total 4160 / 4760 5623 / 6093 1100 / 1100 Output Total 550 / 550 2700 / 3300 2500 / 3000 1200 / 1200 Balance 3610 / 4210 2923 / 2793 -1400 / -1900 -1200 / -1200 Weight 211 lb 9.6 oz 213 lb 3.2 oz 211 lb 209 lb Intake & Output 08/07/24 08/08/24 08/09/24 08/10/24 23:59 23:59 23:59 23:59 Intake Total 980 / 2420 4160 / 4760 4400 / 4400 Output Total 300 / 300 550 / 550 650 / 650 Balance 680 / 2120 3610 / 4210 3750 / 3750 Weight 203 lb 211 lb 9.6 oz 213 lb 3.2 oz Microbiology Reports for the Last 24 Hours: Microbiology 08/08/24 07:00 Blood Blood Culture - Preliminary NO GROWTH AFTER 4 DAYS 08/08/24 07:00 Blood Blood Culture - Preliminary NO GROWTH AFTER 4 DAYS 08/09/24 06:55 Sputum - Expectorated Sputum Gram Stain - Final 08/09/24 06:55 Sputum - Expectorated Sputum Sputum Culture - Preliminary Microbiology 08/08/24 08:34 Urine,Clean Catch Urine Culture - Final 08/08/24 07:00 Blood Blood Culture - Preliminary NO GROWTH AFTER 48 HOURS 08/08/24 07:00 Blood Blood Culture - Preliminary NO GROWTH AFTER 48 HOURS 08/09/24 06:55 Sputum - Expectorated Sputum Gram Stain - Final Constitutional: Present moderate distress Head: Present normocephalic and atraumatic ENT: Present normal exam, normal oropharynx and mucous membranes moist Neck: Present normal inspection and full ROM Respiratory: Present respiratory distress and able to speak in complete sentences; Absent prolonged expiratory phase or wheezes Cardiac: Present S1/S2, Tachycardia and radial pulses present GI: Present soft and distention; Absent tenderness or guarding Rectal (female): Present deferred (female): Present deferred Skin: Present intact; Absent cyanosis or jaundice Neuro: Present alert, awake and oriented x 3 Extremities: Present normal inspection; Absent clubbing or cyanosis Psychiatric: Present normal affect and cooperative Assessment and Plan *Assessment and plan (1) Acute and chronic respiratory failure with hypoxia: Status: Acute Category: Medical Code(s): J96.21 - Acute and chronic respiratory failure with hypoxia (2) Pneumonia: Status: Acute Category: Medical Code(s): J18.9 - Pneumonia, unspecified organism Plan Ms. Nascimento is a 83-year-old female recently admitted to the hospital with a prolonged course of pneumonia exacerbation presented to the ER again complaining of worsening respiratory distress and increasing oxygen requirements and pulmonary was called for further evaluation and management. CTA upon admission, negative for pulmonary embolism. Evidence of pulmonary opacities predominantly in the left lingula and lower lobes with no dense consolidative changes noted. Mild neutrophilic predominant leukocytosis. Afebrile. Hemodynamically stable. Comprehensive respiratory viral PCR panel negative. Patient currently receiving vancomycin and cefepime for possible hospital- acquired pneumonia. Echo January 2024 normal EF at 55, diastolic dysfunction. On examination patient appeared to be in respiratory distress. Needing 4 to 5 L On initial examination oxygen supplementation with saturations maintained at 90 to 93%. No significant wheezing noted on auscultation. Admits nasal congestion. Interval update: Improving oxygen requirements. Saturating 96% on 4 L, weaned to 2 L this luh seng. Received 2 doses of diuretics on this admission. Plan: Wean antibiotics to clindamycin to complete a total of 7-day course from pulmonary standpoint Concern for concomitant diastolic heart failure and volume overload as a possible etiology of patient's worsening respiratory status on this admission. Recommend cardiology consult for evaluation Lasix 40 mg IV once Continue home Advair inhaler therapy Continue oxygen supplementation to maintain O2 saturation of 90% and above Thank you for involving pulmonary in this patient care. Will continue to follow
--- NOTE | 2024-08-12 09:45 | XR_ITS ---
FINAL REPORT CLINICAL HISTORY: Hypoxia COMPARISON: 08/10/2024 FINDINGS: There is a small left pleural effusion. Mild left basilar atelectasis is identified. There is chronic elevation of the left diaphragm. Heart size is normal. IMPRESSION: Small left effusion with mild left basilar atelectasis, increased since prior. Reviewed, Interpreted and Dictated by Carlos Lares MD Transcribed by Vero Kulkarni Authenticated and [facility]
[2024-08-12] MEDS: VANCOMYCIN HCL 1,250 MG in 0.9 % SODIUM CHLORIDE 250 ML 125 MG IV (09:59)
--- NOTE | 2024-08-12 10:45 | PC.NURSE ---
PT. assisted to bedside commode, transferred well with assistance and walker. New brief and purwick in place.
[2024-08-12] MEDS: FUROSEMIDE 40MG/4ML VIAL 40 MG IV (12:44)
[2024-08-12] MEDS: MULTIVITAMIN TABLET 1 EACH PO (16:02)
[2024-08-12] MEDS: IPRATROPIUM/ALBUTEROL 3 ML NEB IH (18:13)
--- NOTE | 2024-08-12 18:30 | PC.NURSE ---
AOX4, 2LNC FOR O2 SUPPORT. PUREWICK IN PLACE. SAT UP TO CHAIR FOR MEALS THIS SHIFT.
[2024-08-12] MEDS: PANTOPRAZOLE 40MG TABLET 40 MG PO (20:33)
[2024-08-12] MEDS: PRAVASTATIN 40MG TAB 40 MG PO (20:33)
[2024-08-12] MEDS: humaLOG 100 UNITS/ML 10ML VIAL (SSI) SUBCUT (21:06)
[2024-08-13] VITALS (10 sets, daily range): BP systolic 125–140; BP diastolic 54–68; PULSE 58–80; RESP 16–21; TEMP 36.8–37.4; O2SAT 91–96; BMI 32.7
--- NOTE | 2024-08-13 05:15 | PC.NURSE ---
Alert and oriented. 3L NC, O2 sat >90%. BiPAP placed on patient when she was ready for sleep and has wore it throughout night with no issues. Expiratory wheezing noted. No complaints from patient. ACHS FS, treated per oct. Call light in reach.
[2024-08-13] MEDS: FLUTICASONE/SALMETEROL 250/50MCG DISKUS 1 PUFF IH ×2 (06:05→18:11)
[2024-08-13 07:10] LABS: Chloride 98 mmol/L (98-107)
[2024-08-13 07:11] LABS: Potassium 3.7 mmoL/L (3.5-5.1); Sodium 137 mmol/L (136-145)
[2024-08-13 07:14] LABS: Blood Urea Nitrogen 19 mg/dl (7-17); Calcium 9.1 mg/dl (8.4-10.2); Creatinine Clearance Estimated 60 mL/min (50-200); Estimated Glomerular Filt Rate 60 ml/min (>60); GFR (African American) 72 ML/MIN (>60); Glucose 108 mg/dl (74-100)
[2024-08-13 07:21] LABS: Anion Gap 3.7 mEq/L (5-15); Carbon Dioxide 39 mmol/L (22.0-30.0)
[2024-08-13] MEDS: CHOLECALCIFEROL 1,000 UNITS (25MCG) TABLET 25 MCG PO (08:08)
[2024-08-13] MEDS: FAMOTIDINE 20MG TABLET 20 MG PO (08:09)
[2024-08-13] MEDS: AMLODIPINE 5MG TABLET 5 MG PO (08:09)
[2024-08-13] MEDS: CITALOPRAM 40MG TABLET 40 MG PO (08:09)
[2024-08-13] MEDS: MAGNESIUM OXIDE 400MG TABLET 400 MG PO (08:09)
[2024-08-13] MEDS: IRBESARTAN 300MG TABLET 300 MG PO (08:09)
[2024-08-13] MEDS: MONTELUKAST SODIUM 10MG TAB 10 MG PO (08:09)
[2024-08-13] MEDS: LACTOBACILLUS PROBIOTIC COMB CAPSULE 1 CAP PO (08:09)
[2024-08-13] MEDS: FLUTICASONE PROP 50MCG NASAL SPRAY 16GM 2 SPRAY NS (08:10)
[2024-08-13] MEDS: OYSTER SHELL CALCIUM (ELEMENTAL) 500MG TAB 500 MG PO (08:10)
[2024-08-13] MEDS: AZELASTINE NASAL SPRAY 30ML BOTTLE NS (08:10)
[2024-08-13] MEDS: CEFEPIME HCL 2 GM in 0.9 % SODIUM CHLORIDE 100 ML IV ×3 (08:10→23:37)
--- NOTE | 2024-08-13 08:11 | EXP.ACUTE.PN ---
Subjective *Date: 08/13/24 *Time: 08:50 Interval history: Patient is feeling much better today. She is up sitting in a chair and has had a bath and breakfast. Her only complaint is of a sore on her buttocks. She denies any other pain. Medical Exam Vital signs and Labs for Last 24 Hours: Vital Signs Temp Pulse Pulse Resp BP Pulse Ox O2 Del Method 08/13/24 07:34 98.3 F 58 L 16 140/68 94 L Nasal Cannula 08/13/24 06:39 Nasal Cannula, Venturi Mask 08/13/24 05:00 BiPAP 08/13/24 04:00 60 08/13/24 04:00 98.3 F 61 16 132/64 95 BiPAP 08/13/24 03:00 BiPAP 08/13/24 02:33 08/13/24 00:58 BiPAP 08/13/24 00:00 99.4 F 68 20 136/63 96 BiPAP 08/12/24 23:00 BiPAP 08/12/24 22:25 08/12/24 20:46 Nasal Cannula 08/12/24 19:58 99.0 F 69 18 141/67 H 96 Nasal Cannula 08/12/24 19:50 Nasal Cannula 08/12/24 18:24 Nasal Cannula 08/12/24 18:14 58 L 08/12/24 18:14 62 08/12/24 18:14 90 L Nasal Cannula 08/12/24 17:00 Nasal Cannula 08/12/24 16:00 97.8 F 75 18 130/62 95 Nasal Cannula 08/12/24 15:00 Nasal Cannula 08/12/24 13:00 Nasal Cannula 08/12/24 12:00 60 08/12/24 11:59 98.5 F 56 L 16 150/74 H 94 L Nasal Cannula 08/12/24 11:00 Nasal Cannula 08/12/24 09:00 Nasal Cannula O2 Flow Rate FiO2 08/13/24 07:34 08/13/24 06:39 08/13/24 05:00 08/13/24 04:00 08/13/24 04:00 08/13/24 03:00 08/13/24 02:33 40 08/13/24 00:58 08/13/24 00:00 08/12/24 23:00 08/12/24 22:25 40 08/12/24 20:46 3 08/12/24 19:58 2 08/12/24 19:50 4 08/12/24 18:24 2 08/12/24 18:14 08/12/24 18:14 08/12/24 18:14 2 08/12/24 17:00 2 08/12/24 16:00 2 08/12/24 15:00 2 08/12/24 13:00 3 08/12/24 12:00 08/12/24 11:59 2 08/12/24 11:00 2 08/12/24 09:00 2 Intake and Output 08/12/24 08/13/24 08/13/24 19:59 03:59 11:59 Intake Total 570 / 850 280 / 850 Output Total 1750 / 2350 600 / 2350 Balance -1180 / -1500 280 / -1500 -600 / -1500 Intake: Intake, Oral Amount 570 / 750 180 / 750 Intake, Total IV Amount 100 / 100 Cefepime HCl 2 gm In 0.9 % 100 / 100 Sodium Chloride 100 ml @ 200 mls/hr IV Q8H [facility] Rx#:[id number] Output: Output, Urine Amount 1750 / 2350 600 / 2350 Other: Number of Unmeasured Voids 0 0 Weight 203 lb 8 oz Patient Weight 08/13/24 11:59 Weight 203 lb 8 oz Laboratory Results - last 24 hr 08/13/24 06:39: Sodium 137, Potassium 3.7, Chloride 98, Carbon Dioxide 39 H, Anion Gap 3.7 L, BUN 19 H, Creatinine 0.90, Estimated Creat Clear 60, Estimated GFR 60, Est GFR ( Amer) 72, Glucose 108 H, Calcium 9.1 I & O for Labs for Last 24 Hours: Intake & Output 08/10/24 08/11/24 08/12/24 08/13/24 11:59 11:59 11:59 11:59 Intake Total 6050 / 6050 1693 / 1693 900 / 900 850 / 850 Output Total 650 / 650 3050 / 3050 2850 / 2850 2350 / 2350 Balance 5400 / 5400 -1357 / -1357 -1950 / -1950 -1500 / -1500 Weight 213 lb 3.2 oz 211 lb 209 lb 203 lb 8 oz Microbiology Reports for the Last 24 Hours: Microbiology 08/08/24 07:00 Blood Blood Culture - Final NO GROWTH AFTER 5 DAYS 08/08/24 07:00 Blood Blood Culture - Final NO GROWTH AFTER 5 DAYS 08/09/24 Unknown Sputum - Expectorated Sputum - Final Not Reportable 08/09/24 Unknown Sputum - Expectorated Sputum - Final Not Reportable 08/09/24 Unknown Sputum - Expectorated Sputum - Final Not Reportable 08/09/24 Unknown Sputum - Expectorated Sputum - Final Not Reportable 08/09/24 Unknown Sputum - Expectorated Sputum - Final Not Reportable 08/09/24 06:55 Sputum - Expectorated Sputum Gram Stain - Final 08/09/24 06:55 Sputum - Expectorated Sputum Sputum Culture - Final Constitutional: Present no acute distress Comment:: Conversant. Respiratory: Present decreased breath sounds and CTA bilaterally Cardiac: Present Regular Rate (Monitor showing sinus bradycardia at 49 and in the 50s while sleeping) GI: Present soft and normal bowel sounds; Absent distention, tenderness or guarding Extremities: Present edema (Unna boot remains on the left lower extremity) Skin: Present intact Neuro: Present alert (Once awake patient who was in where she is) and awake (Awakened for assessment) Assessment and Plan *Assessment and plan (1) Acute and chronic respiratory failure with hypoxia: Status: Acute Category: Medical Code(s): J96.21 - Acute and chronic respiratory failure with hypoxia (2) Pneumonia: Status: Acute Category: Medical Code(s): J18.9 - Pneumonia, unspecified organism (3) Recurrent pneumonia: Status: Acute Category: Medical Code(s): J18.9 - Pneumonia, unspecified organism (4) Sepsis due to pneumonia: Status: Acute Category: Medical Code(s): J18.9 - Pneumonia, unspecified organism; A41.9 - Sepsis, unspecified organism (5) Acute exacerbation of chronic obstructive pulmonary disease: Status: Acute Category: Medical Code(s): J44.1 - Chronic obstructive pulmonary disease with (acute) exacerbation (6) Acute and chronic respiratory failure: Status: Acute Category: Medical Code(s): J96.20 - Acute and chronic respiratory failure, unspecified whether with hypoxia or hypercapnia (7) Lymphadenopathy, mediastinal: Status: Acute Category: Medical Code(s): R59.0 - Localized enlarged lymph nodes (8) Pulmonary emphysema: Status: Acute Category: Medical Code(s): J43.9 - Emphysema, unspecified (9) DM type 2 (diabetes mellitus, type 2): Status: Acute Category: Medical Code(s): E11.9 - Type 2 diabetes mellitus without complications (10) Left ankle joint deformity: Status: Acute Category: Medical Code(s): M21.962 - Unspecified acquired deformity of left lower leg (11) Obesity: Status: Acute Category: Medical Code(s): E66.9 - Obesity, unspecified (12) Anemia: Status: Acute Category: Medical Code(s): D64.9 - Anemia, unspecified (13) Neuropathy: Status: Acute Category: Medical Code(s): G62.9 - Polyneuropathy, unspecified (14) Depression: Status: Acute Category: Medical Code(s): F32.A - Depression, unspecified (15) GERD (gastroesophageal reflux disease): Status: Acute Category: Medical Code(s): K21.9 - Gastro-esophageal reflux disease without esophagitis (16) Hyperlipidemia: Status: Acute Category: Medical Code(s): E78.5 - Hyperlipidemia, unspecified (17) Elevated troponin: Status: Acute Category: Medical Code(s): R79.89 - Other specified abnormal findings of blood chemistry (18) Gallstone: Status: Acute Category: Medical Code(s): K80.20 - Calculus of gallbladder without cholecystitis without obstruction (19) Hypomagnesemia: Status: Acute Category: Medical Code(s): E83.42 - Hypomagnesemia Plan Patient is much improved today. Cardiology has been consulted per recommendation by pulmonology. Dr. Adamson entry - Saw patient, agree with above note.
[2024-08-13 08:13] LABS: Red Blood Count 4.36 M/mm3 (4.20-5.40); White Blood Count 9.3 K/mm3 (4.8-10.8)
[2024-08-13 08:14] LABS: Eosinophils % 0.8 % (0.1-12.0); Hematocrit 35.1 % (37.0-47.0); Hemoglobin 10.5 g/dL (12.2-16.2); Lymphocytes # 1.2 K/mm3 (0.7-4.5); Lymphocytes % 12.8 % (10-50); Mean Corpuscular HGB Conc 29.9 g/dL (31.8-35.4); Mean Corpuscular Hemoglobin 24.1 pg (27.0-31.2); Mean Corpuscular Volume 80.5 fl (81-99); Mean Platelet Volume 10.2 fl (7.4-10.4); Monocytes % 7.6 % (1.7-9.3); Neutrophils # 6.8 K/mm3 (1.8-7.8); Neutrophils % 72.5 % (37.0-80.0); Platelet Count 178 K/mm3 (142-424); Red Cell Distribution Width 21.2 % (11.5-17.5)
[2024-08-13 08:15] LABS: Basophils # 0.1 K/mm3 (0-0.2); Eosinophils # 0.1 K/mm3 (0.0-0.4); Monocytes # 0.7 K/mm3 (0.1-1.0)
[2024-08-13] MEDS: PREGABALIN 25MG CAPSULE 75 MG PO ×2 (08:31→20:43)
[2024-08-13] MEDS: 0.9 % SODIUM CHLORIDE 1000ML 1,000 ML 50 ML IV (08:34)
--- NOTE | 2024-08-13 08:52 | CA_ITS ---
APPROVED REPORT EXAM: Comprehensive 2D, Doppler, and color-flow Echocardiogram Print Color Matcher: India Worthy CRT Ht: 5 ft 6 in Wt: 203lbs BSA: 2.01 BP: 131/63 mmHg Indications: Congestive Heart Failure, COPD, Shortness of Breath, Diabetes, Hyperlipidemia, Hypertension/HDD, arrhythmia, ex smoker 2D Dimensions LA Volume 37.10 mL LA Volume Index 18.00 mL/m2 (M/F) 16-34 M-Mode Dimensions RVDd 3.48 cm (0.9-2.6) LA Diam 4.07 cm (1.9-4.0) LVDd 4.42 cm (3.5-5.7) LVDs 2.76 cm (3.5-5.7) IVSd 1.44 cm (0.6-1.1) PWd 1.02 cm (0.6-1.1) EF (Teich) 67.80% FS 37.60% EDV (Teich) 88.60 mL TAPSE 1.15 (<1.7) ESV (Teich) 28.50 mL LV Diastology E Decel Time 293 (160-240 msec) E/A Ratio 0.62 MED A' 7.80 cm/s LAT A' 12.70 cm/s Aortic Valve AO Peak GR. 11.10 mmHg Mitral Valve MV E Max Mustapha. 77.0 (40-130 cm/s) MV A Velocity 125.0 (40-130 cm/s) E/A Ratio 0.62 MV PHT 86.0 ms Pulmonary Valve PV Peak Velocity 125.0 (50-150 cm/s) Tricuspid Valve TR P. Velocity 162.00 cm/s RAP Estimate 10.00 mmHg RVSP 20.50 mmHg Left Ventricle The left ventricle is normal size. The left ventricular systolic function is normal. The left ventricular ejection fraction is within the normal range. There is increased LV wall thickness. The septum is asynchronous. Transmitral Doppler flow pattern suggests impaired LV relaxation. LVEF is 60%. Right Ventricle Right ventricle is mildly dilated. The right ventricular systolic function is normal. Atria Left atrium is mildly dilated. Right atrium is mildly dilated. There is no Doppler evidence of interatrial shunt. Aortic Valve The aortic valve is mildly thickened. There is no aortic valvular stenosis. Mild aortic regurgitation. Mitral Valve The mitral valve is mildly thickened. No evidence of mitral valve stenosis. Mild mitral regurgitation. Tricuspid Valve The tricuspid valve leaflets are thin and pliable. Mild tricuspid regurgitation. RVSP is normal. Pulmonic Valve The pulmonary valve is normal in structure. Trace pulmonic regurgitation. Great Vessels The aortic root is normal in size. The ascending aorta is normal in size. IVC is normal in size and collapses >50% with inspiration. Pericardium There is no pericardial effusion. Other Information Study Quality: Fair Conclusion Normal biventricular systolic function. Asynchronous septum. Mild RV dilation. Mild biatrial dilation. Mild AI, mild TR, mild MR. Electronically signed by : Erica Romero MD 08/13/2024 12:12:25
[2024-08-13 09:19] LABS: NT Pro Brain Natriuretic Pep. 4450 pg/mL (0-450)
--- NOTE | 2024-08-13 09:42 | P.PN_ITS ---
Subjective *Date: 08/13/24 *Time: 12:33 Interval history: No acute respiratory vents overnight. Pulmonology Exam Inpatient Vital signs and Labs for Last 24 Hours: Temp Pulse Resp BP Pulse Ox O2 Del Method O2 Flow Rate 98.3 F 58 L 16 140/68 94 L Nasal Cannula 3 08/13/24 07:34 08/13/24 07:34 08/13/24 07:34 08/13/24 07:34 08/13/24 07:34 08/13/24 07:34 08/12/24 20:46 FiO2 40 08/13/24 02:33 Laboratory Results - last 24 hr 08/13/24 06:39: WBC 9.3 D, RBC 4.36, Hgb 10.5 L, Hct 35.1 L, MCV 80.5 L, MCH 24.1 L, MCHC 29.9 L, RDW 21.2 H, Plt Count 178 D, MPV 10.2, Neut % (Auto) 72.5, Lymph % (Auto) 12.8, Rice % (Auto) 7.6, Eos % (Auto) 0.8, Baso % (Auto) 1.0, Neut # (Auto) 6.8, Lymph # (Auto) 1.2, Rice # (Auto) 0.7, Eos # (Auto) 0.1, Baso # (Auto) 0.1, Sodium 137, Potassium 3.7, Chloride 98, Carbon Dioxide 39 H, Anion Gap 3.7 L, BUN 19 H, Creatinine 0.90, Estimated Creat Clear 60, Estimated GFR 60, Est GFR ( Amer) 72, Glucose 108 H, Calcium 9.1, NT-Pro-B Natriuret Pep 4450 H Temp Pulse Resp BP Pulse Ox O2 Del Method O2 Flow Rate 98.8 F 57 L 24 138/59 L 91 L Nasal Cannula 5 08/10/24 08:00 08/10/24 08:00 08/10/24 08:00 08/10/24 08:00 08/10/24 09:21 08/10/24 09:21 08/10/24 09:21 Laboratory Results - last 24 hr 08/09/24 11:34: POC Glucose 149 H 08/09/24 17:09: POC Glucose 138 H 08/09/24 20:55: POC Glucose 140 H 08/10/24 06:36: POC Glucose 121 H 08/10/24 06:46: WBC 10.9 H, RBC 4.00 L, Hgb 10.1 L, Hct 31.9 L, MCV 79.6 L, MCH 25.2 L, MCHC 31.7 L, RDW 21.1 H, Plt Count 187, MPV 8.0, Neut % (Auto) 79.6, Lymph % (Auto) 12.8, Rice % (Auto) 7.0, Eos % (Auto) 0.2, Baso % (Auto) 0.3, Neut # (Auto) 8.7 H, Lymph # (Auto) 1.4, Rice # (Auto) 0.8, Eos # (Auto) 0.0, Baso # (Auto) 0.0, Sodium 137, Potassium 4.4, Chloride 105, Carbon Dioxide 34 H, Anion Gap 2.4 L, BUN 29 H, Creatinine 0.90, Estimated Creat Clear 63, Estimated GFR 60, Est GFR ( Amer) 72, Glucose 90 D, Calcium 8.2 L, Magnesium 2.0 D I & O for Labs for Last 24 Hours: Intake & Output 08/10/24 08/11/24 08/12/24 08/13/24 23:59 23:59 23:59 23:59 Intake Total 5623 / 6093 1100 / 1100 1120 / 1120 0 / 0 Output Total 2700 / 3300 2500 / 3000 3100 / 3100 600 / 600 Balance 2923 / 2793 -1400 / -1900 -1979 / -1979 -600 / -600 Weight 213 lb 3.2 oz 211 lb 209 lb 203 lb 8 oz Intake & Output 08/07/24 08/08/24 08/09/24 08/10/24 23:59 23:59 23:59 23:59 Intake Total 980 / 2420 4160 / 4760 4400 / 4400 Output Total 300 / 300 550 / 550 650 / 650 Balance 680 / 2120 3610 / 4210 3750 / 3750 Weight 203 lb 211 lb 9.6 oz 213 lb 3.2 oz Microbiology Reports for the Last 24 Hours: Microbiology 08/08/24 07:00 Blood Blood Culture - Final NO GROWTH AFTER 5 DAYS 08/08/24 07:00 Blood Blood Culture - Final NO GROWTH AFTER 5 DAYS 08/09/24 Unknown Sputum - Expectorated Sputum - Final Not Reportable 08/09/24 Unknown Sputum - Expectorated Sputum - Final Not Reportable 08/09/24 Unknown Sputum - Expectorated Sputum - Final Not Reportable 08/09/24 Unknown Sputum - Expectorated Sputum - Final Not Reportable 08/09/24 Unknown Sputum - Expectorated Sputum - Final Not Reportable 08/09/24 06:55 Sputum - Expectorated Sputum Gram Stain - Final 08/09/24 06:55 Sputum - Expectorated Sputum Sputum Culture - Final Microbiology 08/08/24 08:34 Urine,Clean Catch Urine Culture - Final 08/08/24 07:00 Blood Blood Culture - Preliminary NO GROWTH AFTER 48 HOURS 08/08/24 07:00 Blood Blood Culture - Preliminary NO GROWTH AFTER 48 HOURS 08/09/24 06:55 Sputum - Expectorated Sputum Gram Stain - Final Constitutional: Present moderate distress Head: Present normocephalic and atraumatic ENT: Present normal exam, normal oropharynx and mucous membranes moist Neck: Present normal inspection and full ROM Respiratory: Present respiratory distress and able to speak in complete sentences; Absent prolonged expiratory phase or wheezes Cardiac: Present S1/S2, Tachycardia and radial pulses present GI: Present soft and distention; Absent tenderness or guarding Rectal (female): Present deferred (female): Present deferred Skin: Present intact; Absent cyanosis or jaundice Neuro: Present alert, awake and oriented x 3 Extremities: Present normal inspection; Absent clubbing or cyanosis Psychiatric: Present normal affect and cooperative Assessment and Plan *Assessment and plan (1) Acute and chronic respiratory failure with hypoxia: Status: Acute Category: Medical Code(s): J96.21 - Acute and chronic respiratory failure with hypoxia (2) Pneumonia: Status: Acute Category: Medical Code(s): J18.9 - Pneumonia, unspecified organism Plan Ms. Nascimento is a 83-year-old female recently admitted to the hospital with a prolonged course of pneumonia exacerbation presented to the ER again complaining of worsening respiratory distress and increasing oxygen requirements and pulmonary was called for further evaluation and management. CTA upon admission, negative for pulmonary embolism. Evidence of pulmonary opacities predominantly in the left lingula and lower lobes with no dense consolidative changes noted. Mild neutrophilic predominant leukocytosis. Afebrile. Hemodynamically stable. Comprehensive respiratory viral PCR panel negative. Patient currently receiving vancomycin and cefepime for possible hospital- acquired pneumonia. Echo January 2024 normal EF at 55, diastolic dysfunction. On examination patient appeared to be in respiratory distress. Needing 4 to 5 L On initial examination oxygen supplementation with saturations maintained at 90 to 93%. No significant wheezing noted on auscultation. Admits nasal congestion. Interval update: Continued improvement in her respiratory distress with antibiotics and Lasix. Recommended to wean antibiotics to clindamycin. Received Lasix 40 mg IV daily for the last 3 days Plan: Wean antibiotics to clindamycin to complete a total of 7-day course from pulmonary standpoint Concern for concomitant diastolic heart failure and volume overload as a possible etiology of patient's worsening respiratory status on this admission. Continue home Advair inhaler therapy Continue oxygen supplementation to maintain O2 saturation of 90% and above Thank you for involving pulmonary in this patient care. Will continue to follow
[2024-08-13] MEDS: VANCOMYCIN HCL 1,250 MG in 0.9 % SODIUM CHLORIDE 250 ML 125 MG IV (10:54)
--- NOTE | 2024-08-13 14:21 | EXP.CARD.CON ---
History of Present Illness History of Present Illness Consult date: 08/13/24 Requesting physician: Federico Morris Consult reason: shortness of breath Chief complaint: resp failure History of present illness: 83-year-old white female without known cardiovascular disease currently admitted from SN[facility] for debility respiratory failure and recurrent pneumonia. Her respiratory status is not improving as expected so cardiology was asked to evaluate for any possible underlying CV pathology. Her proBNP is 958, chest x-ray shows small left effusion. She had an echo in January of this year showing mild RV dilation otherwise normal. Echo repeated here showing mild asynchronous septum otherwise normal function. EKG sinus rhythm at 69 bpm. Patient is not a great historian but denies cardiac history. She is still mildly short of breath at rest and has bilateral lower extremity edema which is chronic and is currently wrapped and medicated. [facility] Disclaimer: The information contained in this section may have been updated after the patient was seen, as this information can be updated by other users. Medical History Pulmonary emphysema Chronic respiratory failure with hypoxia Recurrent pneumonia Acute and chronic respiratory failure with hypoxia Lumbar radiculopathy Degenerative disc disease, lumbar Paratracheal lymphadenopathy CAP (community acquired pneumonia) RICHIE (acute kidney injury) Hypertensive urgency Elevated brain natriuretic peptide (BNP) level Hypertensive emergency CKD (chronic kidney disease) stage 3, GFR 30-59 ml/min Pneumonia Allergic rhinitis Colon polyps Hemorrhoids, internal Osteoporosis Herpes zoster Closed left ankle fracture Closed left hip fracture Lumbar spinal stenosis Lumbar compression fracture Ocular melanoma COPD (chronic obstructive pulmonary disease) Mediastinal lymphadenopathy Sleep apnea Asthma Hyperlipidemia Neuropathy Depression GERD (gastroesophageal reflux disease) Arthritis Hypertension Diabetes Surgical History History of right knee joint replacement History of left knee replacement History of left hip replacement History of left ankle joint replacement 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 History of arthroplasty of right knee History of appendectomy Family History Other Heart attack Social History Smoking Status: Former smoker alcohol intake: never substance use type: denies use current occupational status: other Travel in the last 8 weeks: None household members: none caffeine: Yes Review of Systems Constitutional Constitutional: Denies headache(s) and Reports weakness ENT Ears, Nose, Mouth, and Throat: Denies dizziness and Denies headache(s) *Neurologic Neurologic: Denies dizziness, Denies headache(s) and Reports weakness Exam Data for Last 24 hours Vital signs and Labs for Last 24 Hours: Temp Pulse Resp BP Pulse Ox O2 Del Method O2 Flow Rate 98.2 F 61 16 125/63 94 L Nasal Cannula 3 08/13/24 11:28 08/13/24 11:08/13/24 11:28 08/13/24 11:28 08/13/24 11:28 08/13/24 13:00 08/13/24 13:00 FiO2 40 08/13/24 02:33 Laboratory Results - last 24 hr 08/13/24 06:39: WBC 9.3 D, RBC 4.36, Hgb 10.5 L, Hct 35.1 L, MCV 80.5 L, MCH 24.1 L, MCHC 29.9 L, RDW 21.2 H, Plt Count 178 D, MPV 10.2, Neut % (Auto) 72.5, Lymph % (Auto) 12.8, Rhea % (Auto) 7.6, Eos % (Auto) 0.8, Baso % (Auto) 1.0, Neut # (Auto) 6.8, Lymph # (Auto) 1.2, Rhea # (Auto) 0.7, Eos # (Auto) 0.1, Baso # (Auto) 0.1, Sodium 137, Potassium 3.7, Chloride 98, Carbon Dioxide 39 H, Anion Gap 3.7 L, BUN 19 H, Creatinine 0.90, Estimated Creat Clear 60, Estimated GFR 60, Est GFR ( Amer) 72, Glucose 108 H, Calcium 9.1, NT-Pro-B Natriuret Pep 4450 H I & O for Last 24 hours: Intake & Output 08/10/24 08/11/24 08/12/24 08/13/24 23:59 23:59 23:59 23:59 Intake Total 5623 / 6093 1100 / 1100 1120 / 1120 500 / 500 Output Total 2700 / 3300 2500 / 3000 3100 / 3100 600 / 600 Balance 2923 / 2793 -1400 / -1900 -1979 / -1979 -100 / -100 Weight 213 lb 3.2 oz 211 lb 209 lb 203 lb 8 oz Microbiology Reports for the Last 24 Hours: Microbiology 08/08/24 07:00 Blood Blood Culture - Final NO GROWTH AFTER 5 DAYS 08/08/24 07:00 Blood Blood Culture - Final NO GROWTH AFTER 5 DAYS 08/09/24 Unknown Sputum - Expectorated Sputum - Final Not Reportable 08/09/24 Unknown Sputum - Expectorated Sputum - Final Not Reportable 08/09/24 Unknown Sputum - Expectorated Sputum - Final Not Reportable 08/09/24 Unknown Sputum - Expectorated Sputum - Final Not Reportable 08/09/24 Unknown Sputum - Expectorated Sputum - Final Not Reportable 08/09/24 06:55 Sputum - Expectorated Sputum Gram Stain - Final 08/09/24 06:55 Sputum - Expectorated Sputum Sputum Culture - Final Constitutional Constitutional: obese *Routine Extremities Exam Extremities: Present edema and ANUM stockings Meds Home Medications and Allergies Home Medications ?Medication ?Instructions ?Recorded ?Confirmed ?Type metformin 500 mg tablet 500 mg PO BIDWMEAL 03/06/18 08/08/24 History montelukast 10 mg tablet 10 mg PO DAILY 03/06/18 08/08/24 History simvastatin 20 mg tablet 20 mg PO HS 03/06/18 08/08/24 History escitalopram oxalate 20 mg tablet 20 mg PO DAILY 11/10/23 08/08/24 History fluticasone 250 mcg-salmeterol 50 1 ea inhalation BID 11/10/23 08/08/24 History mcg/dose blistr powdr for inhalation (Wixela Inhub) oxybutynin chloride 10 mg 20 mg PO DAILY 11/10/23 08/08/24 History tablet,extended release 24 hr magnesium oxide 400 mg (241.3 mg 400 mg PO DAILY 02/20/24 08/08/24 History magnesium) tablet irbesartan 300 mg tablet 300 mg PO DAILY #30 tabs 02/25/24 08/08/24 Rx amlodipine 5 mg tablet 5 mg PO DAILY 05/09/24 08/08/24 History esomeprazole magnesium 40 mg 40 mg PO DAILY 05/09/24 08/08/24 History capsule,delayed release metoprolol succinate 50 mg 50 mg PO DAILY 05/09/24 08/08/24 History tablet,extended release 24 hr tizanidine 2 mg tablet 2 mg PO HSP PRN Muscle Pain 05/09/24 08/08/24 History azelastine 137 mcg (0.1 %) nasal 2 spray intranasal DAILY 05/12/24 08/08/24 History spray fluticasone propionate 50 2 spray intranasal DAILY 05/12/24 08/08/24 History mcg/actuation nasal spray,suspension olopatadine 0.7 % eye drops 1 drp ophthalmic (eye) DAILY 05/12/24 08/08/24 History (Pataday Once Daily Relief) bismuth subsalicylate 262 mg tablet 262 mg PO DAILYP PRN indigestion/ 07/08/24 08/08/24 History upset stomach calcium carbonate (Calcium 600) 600 mg PO DAILY 07/08/24 08/08/24 History cholecalciferol (vitamin D3) 25 25 mcg PO DAILY 07/08/24 08/08/24 History mcg (1,000 unit) tablet (Vitamin D3) cinnamon bark 500 mg capsule 1,000 mg PO DAILY 07/08/24 08/08/24 History (Cinnamon) famotidine 20 mg tablet 20 mg PO DAILY 07/08/24 08/08/24 History glucosamine sulfate 2KCl 1,000 mg 1,000 mg PO DAILY 07/08/24 08/08/24 History tablet mecobalamin (vitamin B12) 1,000 3,000 mcg PO DAILY 07/08/24 08/08/24 History mcg chewable tablet (B12 Active) multivitamin 1 tab PO DAILY 07/08/24 08/08/24 History vit C 250 mg-vit E 90 mg-zinc 40 1 tab PO BID 07/08/24 08/08/24 History mg-copper 1 [id number] capsule (PreserVision AREDS-2) Bifidobacterium infantis 4 mg 4 mg PO DAILY #30 caps 07/15/24 08/08/24 Rx capsule (Align) pregabalin 75 mg capsule (Lyrica) 75 mg PO BID #60 caps 07/15/24 08/08/24 Rx furosemide 40 mg tablet 40 mg PO DAILY 08/08/24 08/08/24 History New Prescriptions to Start Prescriptions: Allergies Allergy/AdvReac Type Severity Reaction Status Date / Time pollen extracts (POLLEN Allergy Intermediate ASTHMA Verified 07/28/24 13:07 EXTRACTS) Assessment and Plan *Assessment and plan (1) Acute exacerbation of chronic obstructive pulmonary disease: Status: Acute Category: Medical Code(s): J44.1 - Chronic obstructive pulmonary disease with (acute) exacerbation (2) Recurrent pneumonia: Status: Acute Category: Medical Code(s): J18.9 - Pneumonia, unspecified organism Plan Acute on Chronic HFpEF - ECHO is largely unremarkable but pt has clinical heart failure with SOA, pleural effusion, elevated ProBNP and LE Edema - continue Lasix - change amlodipine to aldactone due to swelling of hfpef - add farxiga - can consider RHC this admission if needed but I think primarly her acute issues are respiratory not cardiac COPD and Recurrent PNA - per Pulmonology Htn - change amlodipine to aldactone due to LE edema No further inpatient cardiac intervention anticipated at this time. I recommend she f/u in our clinic 1-2 weeks post discharge.
[2024-08-13] MEDS: DAPAGLIFLOZIN PROPANEDIOL 10 MG TABLET PO (14:53)
[2024-08-13] MEDS: SPIRONOLACTONE 25MG TABLET 25 MG PO (14:53)
[2024-08-13] MEDS: FUROSEMIDE 40MG/4ML VIAL 40 MG IV (14:54)
[2024-08-13] MEDS: MULTIVITAMIN TABLET 1 EACH PO (16:05)
[2024-08-13] MEDS: humaLOG 100 UNITS/ML 10ML VIAL (SSI) SUBCUT ×2 (16:06→20:43)
[2024-08-13 19:07] LABS: POC Glucose,Bedside 184 (70-110)
[2024-08-13] MEDS: PRAVASTATIN 40MG TAB 40 MG PO (20:43)
[2024-08-13] MEDS: PANTOPRAZOLE 40MG TABLET 40 MG PO (20:43)
[2024-08-14] VITALS: BP 131/68; PULSE 64; PULSE 70; RESP 18; TEMP 36.9; O2SAT 95
[2024-08-14 01:38] VITALS: RESP 25
[2024-08-14 04:00] VITALS: BP 126/53; PULSE 56; PULSE 70; RESP 16; TEMP 36.6; O2SAT 95; BMI 32.6
[2024-08-14 05:56] VITALS: O2SAT 98
[2024-08-14] MEDS: FLUTICASONE/SALMETEROL 250/50MCG DISKUS 1 PUFF IH (05:56)
--- NOTE | 2024-08-14 06:06 | PC.NURSE ---
Alert and oriented. Patient had no complaints. Requested to be turned throughout the night to help her hip that felt sore and turning relieved this feeling. 3L NC, wore BiPAP some through night, tolerated well. Lung sounds diminished. ACHS FS. Antibiotics given per oct. Call light in reach.
[2024-08-14 08:00] VITALS: BP 116/59; PULSE 68; PULSE 90; RESP 22; TEMP 36.9; O2SAT 90
--- NOTE | 2024-08-14 08:08 | P.PN_ITS ---
Subjective *Date: 08/14/24 *Time: 08:33 Interval history: Patient is feeling better today. She slept and ate well and was actually able to walk in the rouse with her walker yesterday. She denies any pain and is less SOA. Medical Exam Vital signs and Labs for Last 24 Hours: Vital Signs Temp Pulse Pulse Resp BP Pulse Ox O2 Del Method 08/14/24 06:45 Nasal Cannula 08/14/24 05:56 98 Nasal Cannula 08/14/24 05:00 Nasal Cannula 08/14/24 04:00 70 08/14/24 04:00 97.9 F 56 L 16 126/53 L 95 BiPAP 08/14/24 03:00 BiPAP 08/14/24 01:38 08/14/24 01:00 Nasal Cannula 08/14/24 00:00 70 08/14/24 00:00 98.5 F 64 18 131/68 95 Nasal Cannula 08/13/24 22:44 Nasal Cannula 08/13/24 21:00 Nasal Cannula 08/13/24 20:00 80 08/13/24 20:00 98.7 F 74 18 135/54 L 92 L Nasal Cannula 08/13/24 20:00 Nasal Cannula 08/13/24 18:18 Nasal Cannula 08/13/24 18:12 91 L Nasal Cannula 08/13/24 16:17 Nasal Cannula 08/13/24 16:15 Nasal Cannula 08/13/24 16:00 70 08/13/24 16:00 98.6 F 74 17 127/61 91 L Room Air 08/13/24 13:00 Nasal Cannula 08/13/24 12:00 80 08/13/24 11:28 98.2 F 61 16 125/63 94 L Nasal Cannula 08/13/24 11:00 Nasal Cannula 08/13/24 09:00 Nasal Cannula O2 Flow Rate FiO2 08/14/24 06:45 3 08/14/24 05:56 3 08/14/24 05:00 3 08/14/24 04:00 08/14/24 04:00 08/14/24 03:00 08/14/24 01:38 40 08/14/24 01:00 3 08/14/24 00:00 08/14/24 00:00 2 08/13/24 22:44 3 08/13/24 21:00 3 08/13/24 20:00 12/19/24 20:00 2 08/13/24 20:00 3 08/13/24 18:18 3 08/13/24 18:12 3 08/13/24 16:17 3 08/13/24 16:15 3 08/13/24 16:00 08/13/24 16:00 08/13/24 13:00 3 08/13/24 12:00 08/13/24 11:28 08/13/24 11:00 3 08/13/24 09:00 3 Intake and Output 08/13/24 08/14/24 08/14/24 19:59 03:59 11:59 Intake Total 675 / 955 280 / 955 Output Total 1100 / 1850 750 / 1850 Balance -425 / -895 -470 / -895 Intake: Intake, Oral Amount 675 / 855 180 / 855 Intake, Total IV Amount 100 / 100 Cefepime HCl 2 gm In 0.9 % 100 / 100 Sodium Chloride 100 ml @ 200 mls/hr IV Q8H [facility] Rx#:[id number] Output: Output, Urine Amount 1100 / 1850 750 / 1850 Other: Number of Unmeasured Voids 0 Weight 203 lb 6.4 oz Patient Weight 08/14/24 11:59 Weight 203 lb 6.4 oz Laboratory Results - last 24 hr 08/13/24 06:39: WBC 9.3 D, RBC 4.36, Hgb 10.5 L, Hct 35.1 L, MCV 80.5 L, MCH 24.1 L, MCHC 29.9 L, RDW 21.2 H, Plt Count 178 D, MPV 10.2, Neut % (Auto) 72.5, Lymph % (Auto) 12.8, [place] % (Auto) 7.6, Eos % (Auto) 0.8, Baso % (Auto) 1.0, Neut # (Auto) 6.8, Lymph # (Auto) 1.2, [place] # (Auto) 0.7, Eos # (Auto) 0.1, Baso # (Auto) 0.1, NT-Pro-B Natriuret Pep 4450 H 08/13/24 16:03: POC Glucose 184 H I & O for Labs for Last 24 Hours: Intake & Output 08/11/24 08/12/24 08/13/24 12/20/24 11:59 11:59 11:59 11:59 Intake Total 1693 / 1693 900 / 900 850 / 850 955 / 955 Output Total 3050 / 3050 2850 / 2850 2350 / 2350 1850 / 1850 Balance -1357 / -1357 -1950 / -1950 -1500 / -1500 -895 / -895 Weight 211 lb 209 lb 203 lb 8 oz 203 lb 6.4 oz Microbiology Reports for the Last 24 Hours: Microbiology 08/08/24 07:00 Blood Blood Culture - Final NO GROWTH AFTER 5 DAYS 08/08/24 07:00 Blood Blood Culture - Final NO GROWTH AFTER 5 DAYS Constitutional: Present no acute distress Comment:: Conversant. Respiratory: Present decreased breath sounds and CTA bilaterally Cardiac: Present Regular Rate (Monitor showing sinus bradycardia at 49 and in the 50s while sleeping) GI: Present soft and normal bowel sounds; Absent distention, tenderness or guarding Extremities: Present edema (Unna boot remains on the left lower extremity) Skin: Present intact Neuro: Present alert (Once awake patient who was in where she is) and awake (Awakened for assessment) Assessment and Plan *Assessment and plan (1) Acute and chronic respiratory failure with hypoxia: Status: Acute Category: Medical Code(s): J96.21 - Acute and chronic respiratory failure with hypoxia (2) Pneumonia: Status: Acute Category: Medical Code(s): J18.9 - Pneumonia, unspecified organism (3) Recurrent pneumonia: Status: Acute Category: Medical Code(s): J18.9 - Pneumonia, unspecified organism (4) Sepsis due to pneumonia: Status: Acute Category: Medical Code(s): J18.9 - Pneumonia, unspecified organism; A41.9 - Sepsis, unspecified organism (5) Acute exacerbation of chronic obstructive pulmonary disease: Status: Acute Category: Medical Code(s): J44.1 - Chronic obstructive pulmonary disease with (acute) exacerbation (6) Acute and chronic respiratory failure: Status: Acute Category: Medical Code(s): J96.20 - Acute and chronic respiratory failure, unspecified whether with hypoxia or hypercapnia (7) Lymphadenopathy, mediastinal: Status: Acute Category: Medical Code(s): R59.0 - Localized enlarged lymph nodes (8) Pulmonary emphysema: Status: Acute Category: Medical Code(s): J43.9 - Emphysema, unspecified (9) DM type 2 (diabetes mellitus, type 2): Status: Acute Category: Medical Code(s): E11.9 - Type 2 diabetes mellitus without complications (10) Left ankle joint deformity: Status: Acute Category: Medical Code(s): M21.962 - Unspecified acquired deformity of left lower leg (11) Obesity: Status: Acute Category: Medical Code(s): E66.9 - Obesity, unspecified (12) Anemia: Status: Acute Category: Medical Code(s): D64.9 - Anemia, unspecified (13) Neuropathy: Status: Acute Category: Medical Code(s): G62.9 - Polyneuropathy, unspecified (14) Depression: Status: Acute Category: Medical Code(s): F32.A - Depression, unspecified (15) GERD (gastroesophageal reflux disease): Status: Acute Category: Medical Code(s): K21.9 - Gastro-esophageal reflux disease without esophagitis (16) Hyperlipidemia: Status: Acute Category: Medical Code(s): E78.5 - Hyperlipidemia, unspecified (17) Elevated troponin: Status: Acute Category: Medical Code(s): R79.89 - Other specified abnormal findings of blood chemistry (18) Gallstone: Status: Acute Category: Medical Code(s): K80.20 - Calculus of gallbladder without cholecystitis without obstruction (19) Hypomagnesemia: Status: Acute Category: Medical Code(s): E83.42 - Hypomagnesemia Plan Patient can likely be discharged today. Cardiology made some medication changes and pulmonology wanted her to complete a 7 day course of clindamycin. Will discuss with Dr. Adamson. Dr. Adamson entry - Saw patient, agree with above note. Today is day 7 of antibiotics, will change BP meds as recommended, discharge back to [facility].
--- NOTE | 2024-08-14 08:34 | P.DS_ITS ---
General Admission date:: 08/08/24 Discharge date: 08/14/24 HPI HPI HPI: Ms. Nascimento is an 83 year old patient of [facility] that was recently admitted into [facility] due to debility and chronic respiratory failure. She has had multiple recent hospital admission due to inability to stand/ambulate and for pneumonia/hypoxia/respiratory failure. She has no recollection of why she was brought to the ER yesterday but per the ER record and the EMS report patient was found to be hypoxic with sats in the mid 70's at [facility] yesterday despite using her supplemental oxygen at 3 L/min/nc. She states that when she went to bed night before last she felt fine. She denies new respiratory problems. ER work up reviewed. CT scan showed bilateral pneumonia. Hospital Course Hospital Course Hospital Course: The patient was admitted and started on vancomycin and cefepime. Her oxygen sats dropped and she had to be placed on oxygen per mask at 15 L/min. DuoNebs were ordered as well. A wound care consult was made for her left foot and leg and an unna boot was placed. Pulmonology was consulted and wanted the patient continued on Advair. He wanted her antibiotics weaned to clindamycin and gave her a dose of Lasix. Physical therapy was consulted. She was given additional IV Lasix and her breathing did improve. There was concern for diastolic heart failure and pulmonology recommended a cardiology consult as well. The patient did begin feeling better. She was able to get up in the chair and also walk in the hallway with physical therapy. Cardiology saw the patient and her felt her echo was largely unremarkable. They wanted her Lasix continued and they changed her amlodipine to Aldactone due to swelling. They also added Farxiga. By 08/14/2024, the patient was feeling well and was stable to be discharged back to [facility] for continued rehab. Exam Data for Last 24 hours Vital signs and Labs for Last 24 Hours: Temp Pulse Resp BP Pulse Ox O2 Del Method O2 Flow Rate 97.9 F 56 L 16 126/53 L 98 Nasal Cannula 3 08/14/24 04:00 08/14/24 04:00 08/14/24 04:00 08/14/24 04:00 08/14/24 05:56 08/14/24 06:45 08/14/24 06:45 FiO2 40 08/14/24 01:38 Laboratory Results - last 24 hr 08/13/24 06:39: NT-Pro-B Natriuret Pep 4450 H 08/13/24 16:03: POC Glucose 184 H I & O for Last 24 hours: Intake & Output 08/11/24 08/12/24 08/13/24 08/14/24 11:59 11:59 11:59 11:59 Intake Total 1693 / 1693 900 / 900 850 / 850 955 / 955 Output Total 3050 / 3050 2850 / 2850 2350 / 2350 1850 / 1850 Balance -1357 / -1357 -1950 / -1950 -1500 / -1500 -895 / -895 Weight 211 lb 209 lb 203 lb 8 oz 203 lb 6.4 oz Microbiology Reports for the Last 24 Hours: Microbiology 08/08/24 07:00 Blood Blood Culture - Final NO GROWTH AFTER 5 DAYS 08/08/24 07:00 Blood Blood Culture - Final NO GROWTH AFTER 5 DAYS Narrative: Constitutional Constitutional: no acute distress *Routine HEENT Exam Head: Present normocephalic Eye: Present EOMI and PERRL ENT: Present mucous membranes moist *Routine Neck Exam Neck: Present supple; Absent lymphadenopathy *Routine Respiratory Exam Respiratory: Present crackles (few bibasilar); Absent wheezes *Routine Cardiovascular Exam Cardiovascular: Present RRR *Routine Abdominal Exam Abdominal: Present soft and normoactive bowel sounds; Absent tenderness *Routine Rectal Exam Rectal:: deferred *Routine Genitalia Exam Genitalia:: deferred *Routine Extremities Exam Extremities: Absent cyanosis or clubbing Comments: chronic changes at left ankle *Routine Skin Exam Skin: Present warm; Absent rash *Routine Neurological Exam Neurological: Present alert and oriented X3 Results Data Completed and Pending Labs on day of discharge: Labs from last 24 hours 08/13/24 08/13/24 16:03 06:39 POC Glucose 184 H NT-Pro-B Natriuret Pep 4450 H DS: Diagnosis Discharge Diagnosis (1) Acute and chronic respiratory failure with hypoxia: Status: Acute Code(s): J96.21 - Acute and chronic respiratory failure with hypoxia (2) Pneumonia: Status: Acute Code(s): J18.9 - Pneumonia, unspecified organism (3) Recurrent pneumonia: Status: Acute Code(s): J18.9 - Pneumonia, unspecified organism (4) Sepsis due to pneumonia: Status: Acute Code(s): J18.9 - Pneumonia, unspecified organism; A41.9 - Sepsis, unspecified organism (5) Acute exacerbation of chronic obstructive pulmonary disease: Status: Acute Code(s): J44.1 - Chronic obstructive pulmonary disease with (acute) exacerbation (6) Acute and chronic respiratory failure: Status: Acute Code(s): J96.20 - Acute and chronic respiratory failure, unspecified whether with hypoxia or hypercapnia (7) Lymphadenopathy, mediastinal: Status: Acute Code(s): R59.0 - Localized enlarged lymph nodes (8) Pulmonary emphysema: Status: Acute Code(s): J43.9 - Emphysema, unspecified (9) DM type 2 (diabetes mellitus, type 2): Status: Acute Code(s): E11.9 - Type 2 diabetes mellitus without complications (10) Left ankle joint deformity: Status: Acute Code(s): M21.962 - Unspecified acquired deformity of left lower leg (11) Obesity: Status: Acute Code(s): E66.9 - Obesity, unspecified (12) Anemia: Status: Acute Code(s): D64.9 - Anemia, unspecified (13) Neuropathy: Status: Acute Code(s): G62.9 - Polyneuropathy, unspecified (14) Depression: Status: Acute Code(s): F32.A - Depression, unspecified (15) GERD (gastroesophageal reflux disease): Status: Acute Code(s): K21.9 - Gastro-esophageal reflux disease without esophagitis (16) Hyperlipidemia: Status: Acute Code(s): E78.5 - Hyperlipidemia, unspecified (17) Elevated troponin: Status: Acute Code(s): R79.89 - Other specified abnormal findings of blood chemistry (18) Gallstone: Status: Acute Code(s): K80.20 - Calculus of gallbladder without cholecystitis without obstruction (19) Hypomagnesemia: Status: Acute Code(s): E83.42 - Hypomagnesemia Meds Home Medications and Allergies Home Medications ?Medication ?Instructions ?Recorded ?Confirmed ?Type metformin 500 mg tablet 500 mg PO BIDWMEAL 03/06/18 08/08/24 History montelukast 10 mg tablet 10 mg PO DAILY 03/06/18 08/08/24 History simvastatin 20 mg tablet 20 mg PO HS 03/06/18 08/08/24 History escitalopram oxalate 20 mg tablet 20 mg PO DAILY 11/10/23 08/08/24 History fluticasone 250 mcg-salmeterol 50 1 ea inhalation BID 11/10/23 08/08/24 History mcg/dose blistr powdr for inhalation (Wixela Inhub) oxybutynin chloride 10 mg 20 mg PO DAILY 11/10/23 08/08/24 History tablet,extended release 24 hr magnesium oxide 400 mg (241.3 mg 400 mg PO DAILY 02/20/24 08/08/24 History magnesium) tablet irbesartan 300 mg tablet 300 mg PO DAILY #30 tabs 02/25/24 08/08/24 Rx esomeprazole magnesium 40 mg 40 mg PO DAILY 05/09/24 08/08/24 History capsule,delayed release metoprolol succinate 50 mg 50 mg PO DAILY 05/09/24 08/08/24 History tablet,extended release 24 hr tizanidine 2 mg tablet 2 mg PO HSP PRN Muscle Pain 05/09/24 08/08/24 History azelastine 137 mcg (0.1 %) nasal 2 spray intranasal DAILY 05/12/24 08/08/24 History spray fluticasone propionate 50 2 spray intranasal DAILY 05/12/24 08/08/24 History mcg/actuation nasal spray,suspension olopatadine 0.7 % eye drops 1 drp ophthalmic (eye) DAILY 05/12/24 08/08/24 History (Pataday Once Daily Relief) bismuth subsalicylate 262 mg tablet 262 mg PO DAILYP PRN indigestion/ 07/08/24 08/08/24 History upset stomach calcium carbonate (Calcium 600) 600 mg PO DAILY 07/08/24 08/08/24 History cholecalciferol (vitamin D3) 25 25 mcg PO DAILY 07/08/24 08/08/24 History mcg (1,000 unit) tablet (Vitamin D3) cinnamon bark 500 mg capsule 1,000 mg PO DAILY 07/08/24 08/08/24 History (Cinnamon) famotidine 20 mg tablet 20 mg PO DAILY 07/08/24 08/08/24 History glucosamine sulfate 2KCl 1,000 mg 1,000 mg PO DAILY 07/08/24 08/08/24 History tablet mecobalamin (vitamin B12) 1,000 3,000 mcg PO DAILY 07/08/24 08/08/24 History mcg chewable tablet (B12 Active) multivitamin 1 tab PO DAILY 07/08/24 08/08/24 History vit C 250 mg-vit E 90 mg-zinc 40 1 tab PO BID 07/08/24 08/08/24 History mg-copper 1 [id number] capsule (PreserVision AREDS-2) Bifidobacterium infantis 4 mg 4 mg PO DAILY #30 caps 07/15/24 08/08/24 Rx capsule (Align) furosemide 40 mg tablet 40 mg PO DAILY 08/08/24 08/08/24 History dapagliflozin propanediol 10 mg 10 mg PO DAILY #30 tabs 08/14/24 Rx tablet (Farxiga) pregabalin 75 mg capsule (Lyrica) 75 mg PO BID #60 caps 08/14/24 Rx spironolactone 50 mg tablet 50 mg PO DAILY #30 tabs 08/14/24 Rx New Prescriptions to Start Prescriptions: dapagliflozin propanediol [Farxiga] Darlington,Allan pregabalin [Lyrica] Darlington,Allan spironolactone Darlington,Allan Allergies Allergy/AdvReac Type Severity Reaction Status Date / Time pollen extracts (POLLEN Allergy Intermediate ASTHMA Verified 07/28/24 13:07 EXTRACTS) Discharge Plan Disposition Patient Disposition: Xfer [facility] Condition: Fair Discharge Order Discharge Orders: Discharge Order (Routine); Ordered 08/14/24 Ordered By: Allan Adamson Follow up Plan Follow up with: Federico Morris MD [Physician] - 09/09/24 1:00 pm Prescriptions/Medication Reconciliation: New spironolactone 50 mg tablet 50 mg PO DAILY Qty: 30 0RF dapagliflozin propanediol [Farxiga] 10 mg tablet 10 mg PO DAILY Qty: 30 0RF Continued fluticasone propion-salmeterol [Wixela Inhub] 250-50 mcg/dose blister with device 1 ea INHALATION BID oxybutynin chloride 10 mg tablet extended release 24hr 20 mg PO DAILY Patient Comments: TAKE 2 TABLETS BY MOUTH ONCE DAILY escitalopram oxalate 20 mg tablet 20 mg PO DAILY Patient Comments: TAKE 1 TABLET BY MOUTH ONCE DAILY magnesium oxide 400 mg (241.3 mg magnesium) tablet 400 mg PO DAILY Patient Comments: TAKE 1 TABLET BY MOUTH ONCE DAILY irbesartan 300 mg Tablet 300 mg PO DAILY Qty: 30 0RF calcium carbonate [Calcium 600] 600 mg calcium (1,500 mg) Tablet 600 mg PO DAILY PreserVision AREDS-2 250-90-40-1 mg Capsule 1 tab PO BID multivitamin Tablet 1 tab PO DAILY famotidine 20 mg Tablet 20 mg PO DAILY bismuth subsalicylate 262 mg Tablet 262 mg PO DAILYP PRN (Reason: indigestion/ upset stomach ) cinnamon bark [Cinnamon] 500 mg Capsule 1,000 mg PO DAILY glucosamine sulfate 2KCl 1,000 mg Tablet 1,000 mg PO DAILY Rx Instructions: administer with meals cholecalciferol (vitamin D3) [Vitamin D3] 25 mcg (1,000 unit) Tablet 25 mcg PO DAILY mecobalamin (vitamin B12) [B12 Active] 1,000 mcg Tablet,Chewable 3,000 mcg PO DAILY Align 4 mg capsule 4 mg PO DAILY Qty: 30 0RF metformin 500 MG tablet 500 mg PO BIDWMEAL simvastatin 20 tablet 20 mg PO HS montelukast 10 MG tablet 10 mg PO DAILY metoprolol succinate 50 mg tablet extended release 24 hr 50 mg PO DAILY Patient Comments: TAKE 1 TABLET BY MOUTH ONCE DAILY esomeprazole magnesium 40 mg capsule,delayed release(DR/EC) 40 mg PO DAILY tizanidine 2 mg tablet 2 mg PO HSP PRN (Reason: Muscle Pain) azelastine 137 mcg (0.1 %) [place],Non-Aerosol 2 spray INTRANASAL DAILY Rx Instructions: administer into each nostril fluticasone propionate 50 mcg/actuation [place],Suspension 2 spray INTRANASAL DAILY Rx Instructions: administer into each nostril Pataday Once Daily Relief 0.7 % Drops 1 drp OPHTHALMIC (EYE) DAILY Rx Instructions: apply 1 drop to the affected eye once daily furosemide 40 mg Tablet 40 mg PO DAILY pregabalin [Lyrica] 75 capsule 75 mg PO BID Qty: 60 0RF Discontinued amlodipine 5 mg tablet 5 mg PO DAILY Patient Comments: TAKE 1 TABLET BY MOUTH ONCE DAILY Problem Reconciliation Problems Reviewed?: Yes Patient Discharge Instructions ACTIVITY: Continue current activity DIET: low salt diet Patient Instructions: DI for Pneumonia -- Adult, DI for Sepsis -- Adult, DI for Hypomagnesemia Print Language: Guamanian Providers Primary Care Provider: Allan Adamson Admit Provider: Cody Hernandez Attending Provider: Allan Adamson
--- NOTE | 2024-08-14 08:36 | P.PN_ITS ---
Subjective *Date: 08/14/24 *Time: 08:36 Medical Exam Vital signs and Labs for Last 24 Hours: Vital Signs Temp Pulse Pulse Resp BP Pulse Ox O2 Del Method 08/14/24 06:45 Nasal Cannula 08/14/24 05:56 98 Nasal Cannula 08/14/24 05:00 Nasal Cannula 08/14/24 04:00 70 08/14/24 04:00 97.9 F 56 L 16 126/53 L 95 BiPAP 08/14/24 03:00 BiPAP 08/14/24 01:38 08/14/24 01:00 Nasal Cannula 08/14/24 00:00 70 08/14/24 00:00 98.5 F 64 18 131/68 95 Nasal Cannula 08/13/24 22:44 Nasal Cannula 08/13/24 21:00 Nasal Cannula 08/13/24 20:00 80 08/13/24 20:00 98.7 F 74 18 135/54 L 92 L Nasal Cannula 08/13/24 20:00 Nasal Cannula 08/13/24 18:18 Nasal Cannula 08/13/24 18:12 91 L Nasal Cannula 08/13/24 16:17 Nasal Cannula 08/13/24 16:15 Nasal Cannula 08/13/24 16:00 70 08/13/24 16:00 98.6 F 74 17 127/61 91 L Room Air 08/13/24 13:00 Nasal Cannula 08/13/24 12:00 80 08/13/24 11:28 98.2 F 61 16 125/63 94 L Nasal Cannula 08/13/24 11:00 Nasal Cannula 08/13/24 09:00 Nasal Cannula O2 Flow Rate FiO2 08/14/24 06:45 3 08/14/24 05:56 3 08/14/24 05:00 3 08/14/24 04:00 08/14/24 04:00 08/14/24 03:00 08/14/24 01:38 40 08/14/24 01:00 3 08/14/24 00:00 08/14/24 00:00 2 08/13/24 22:44 3 08/13/24 21:00 3 08/13/24 20:00 08/13/24 20:00 2 08/13/24 20:00 3 08/13/24 18:18 3 08/13/24 18:12 3 08/13/24 16:17 3 08/13/24 16:15 3 08/13/24 16:00 08/13/24 16:00 08/13/24 13:00 3 08/13/24 12:00 08/13/24 11:28 08/13/24 11:00 3 08/13/24 09:00 3 Intake and Output 08/13/24 08/14/24 08/14/24 23:59 07:59 15:59 Intake Total 175 / 955 280 / 280 Output Total 1850 / 2450 Balance -1675 / -1495 280 / 280 Intake: Intake, Oral Amount 175 / 855 180 / 180 Intake, Total IV Amount 100 / 100 Cefepime HCl 2 gm In 0.9 % 100 / 100 Sodium Chloride 100 ml @ 200 mls/hr IV Q8H [facility] Rx#:[id number] Output: Output, Urine Amount 1850 / 2450 Other: Number of Unmeasured Voids 0 Weight 92.261 kg Patient Weight 08/14/24 23:59 Weight 92.261 kg Laboratory Results - last 24 hr 08/13/24 06:39: NT-Pro-B Natriuret Pep 4450 H 08/13/24 16:03: POC Glucose 184 H I & O for Labs for Last 24 Hours: Intake & Output 08/11/24 08/12/24 08/13/24 08/14/24 23:59 23:59 23:59 23:59 Intake Total 1100 / 1100 1120 / 1120 675 / 955 280 / 280 Output Total 2500 / 3000 3100 / 3100 2450 / 2450 Balance -1400 / -1900 -1980 / -1980 -1775 / -1495 280 / 280 Weight 95.708 kg 94.801 kg 92.306 kg 92.261 kg Microbiology Reports for the Last 24 Hours: Microbiology 08/08/24 07:00 Blood Blood Culture - Final NO GROWTH AFTER 5 DAYS 08/08/24 07:00 Blood Blood Culture - Final NO GROWTH AFTER 5 DAYS The patient's infection will respond to the chosen ABx?: Yes (SPUTUM PENDING, URINE CONTAMINATED, BLOOD NO GROWTH 5 DAYS, AFEBRILE 24HR) Is the patient receiving the right drug, dose, and route?: Yes Could a more targeted ABx be ordered?: No How long ABx needed (days)?: 7
[2024-08-14] MEDS: IRBESARTAN 300MG TABLET 300 MG PO (09:14)
[2024-08-14] MEDS: SPIRONOLACTONE 25MG TABLET 25 MG PO (09:14)
[2024-08-14] MEDS: DAPAGLIFLOZIN PROPANEDIOL 10 MG TABLET PO (09:14)
[2024-08-14] MEDS: MONTELUKAST SODIUM 10MG TAB 10 MG PO (09:14)
[2024-08-14] MEDS: LACTOBACILLUS PROBIOTIC COMB CAPSULE 1 CAP PO (09:14)
[2024-08-14] MEDS: OYSTER SHELL CALCIUM (ELEMENTAL) 500MG TAB 500 MG PO (09:14)
[2024-08-14] MEDS: CITALOPRAM 40MG TABLET 40 MG PO (09:14)
[2024-08-14] MEDS: MAGNESIUM OXIDE 400MG TABLET 400 MG PO (09:14)
[2024-08-14] MEDS: CHOLECALCIFEROL 1,000 UNITS (25MCG) TABLET 25 MCG PO (09:14)
[2024-08-14] MEDS: PREGABALIN 25MG CAPSULE 75 MG PO (09:14)
[2024-08-14] MEDS: FAMOTIDINE 20MG TABLET 20 MG PO (09:14)
[2024-08-14] MEDS: CEFEPIME HCL 2 GM in 0.9 % SODIUM CHLORIDE 100 ML IV (09:15)
[2024-08-14] MEDS: AZELASTINE NASAL SPRAY 30ML BOTTLE NS (09:15)
[2024-08-14] MEDS: FLUTICASONE PROP 50MCG NASAL SPRAY 16GM 2 SPRAY NS (09:15)
--- NOTE | 2024-08-14 09:45 | EXP.PULM.PN ---
Subjective *Date: 08/14/24 *Time: 12:00 Interval history: No acute respiratory vents overnight. Pulmonology Exam Inpatient Vital signs and Labs for Last 24 Hours: Temp Pulse Resp BP Pulse Ox O2 Del Method O2 Flow Rate 98.5 F 68 22 116/59 L 90 L Nasal Cannula 3 08/14/24 08:00 08/14/24 08:00 08/14/24 08:00 08/14/24 08:00 08/14/24 08:00 08/14/24 09:00 08/14/24 09:00 FiO2 40 08/14/24 01:38 Laboratory Results - last 24 hr 08/13/24 16:03: POC Glucose 184 H Temp Pulse Resp BP Pulse Ox O2 Del Method O2 Flow Rate 98.8 F 57 L 24 138/59 L 91 L Nasal Cannula 5 08/10/24 08:00 08/10/24 08:00 08/10/24 08:00 08/10/24 08:00 08/10/24 09:21 08/10/24 09:21 08/10/24 09:21 Laboratory Results - last 24 hr 08/09/24 11:34: POC Glucose 149 H 08/09/24 17:09: POC Glucose 138 H 08/09/24 20:55: POC Glucose 140 H 08/10/24 06:36: POC Glucose 121 H 08/10/24 06:46: WBC 10.9 H, RBC 4.00 L, Hgb 10.1 L, Hct 31.9 L, MCV 79.6 L, MCH 25.2 L, MCHC 31.7 L, RDW 21.1 H, Plt Count 187, MPV 8.0, Neut % (Auto) 79.6, Lymph % (Auto) 12.8, Dickson % (Auto) 7.0, Eos % (Auto) 0.2, Baso % (Auto) 0.3, Neut # (Auto) 8.7 H, Lymph # (Auto) 1.4, Dickson # (Auto) 0.8, Eos # (Auto) 0.0, Baso # (Auto) 0.0, Sodium 137, Potassium 4.4, Chloride 105, Carbon Dioxide 34 H, Anion Gap 2.4 L, BUN 29 H, Creatinine 0.90, Estimated Creat Clear 63, Estimated GFR 60, Est GFR ( Amer) 72, Glucose 90 D, Calcium 8.2 L, Magnesium 2.0 D I & O for Labs for Last 24 Hours: Intake & Output 08/11/24 08/12/24 08/13/24 08/14/24 23:59 23:59 23:59 23:59 Intake Total 1100 / 1100 1120 / 1120 675 / 955 380 / 380 Output Total 2500 / 3000 3100 / 3100 2450 / 2450 0 / 0 Balance -1400 / -1900 -1979 / -1979 -1775 / -1495 380 / 380 Weight 211 lb 209 lb 203 lb 8 oz 203 lb 6.4 oz Intake & Output 08/07/24 08/08/24 08/09/24 08/10/24 23:59 23:59 23:59 23:59 Intake Total 980 / 2420 4160 / 4760 4400 / 4400 Output Total 300 / 300 550 / 550 650 / 650 Balance 680 / 2120 3610 / 4210 3750 / 3750 Weight 203 lb 211 lb 9.6 oz 213 lb 3.2 oz Microbiology Reports for the Last 24 Hours: Microbiology 08/08/24 07:00 Blood Blood Culture - Final NO GROWTH AFTER 5 DAYS 08/08/24 07:00 Blood Blood Culture - Final NO GROWTH AFTER 5 DAYS Microbiology 08/08/24 08:34 Urine,Clean Catch Urine Culture - Final 08/08/24 07:00 Blood Blood Culture - Preliminary NO GROWTH AFTER 48 HOURS 08/08/24 07:00 Blood Blood Culture - Preliminary NO GROWTH AFTER 48 HOURS 08/09/24 06:55 Sputum - Expectorated Sputum Gram Stain - Final Constitutional: Present moderate distress Head: Present normocephalic and atraumatic ENT: Present normal exam, normal oropharynx and mucous membranes moist Neck: Present normal inspection and full ROM Respiratory: Present respiratory distress and able to speak in complete sentences; Absent prolonged expiratory phase or wheezes Cardiac: Present S1/S2, Tachycardia and radial pulses present GI: Present soft and distention; Absent tenderness or guarding Rectal (female): Present deferred (female): Present deferred Skin: Present intact; Absent cyanosis or jaundice Neuro: Present alert, awake and oriented x 3 Extremities: Present normal inspection; Absent clubbing or cyanosis Psychiatric: Present normal affect and cooperative Assessment and Plan *Assessment and plan (1) Acute and chronic respiratory failure with hypoxia: Status: Acute Category: Medical Code(s): J96.21 - Acute and chronic respiratory failure with hypoxia (2) Pneumonia: Status: Acute Category: Medical Code(s): J18.9 - Pneumonia, unspecified organism Plan Ms. Nascimento is a 83-year-old female recently admitted to the hospital with a prolonged course of pneumonia presented to the ER again complaining of worsening respiratory distress and increasing oxygen requirements and pulmonary was called for further evaluation and management. CTA upon admission, negative for pulmonary embolism. Evidence of pulmonary opacities predominantly in the left lingula and lower lobes with no dense consolidative changes noted. Mild neutrophilic predominant leukocytosis. Afebrile. Hemodynamically stable. Comprehensive respiratory viral PCR panel negative. Patient currently receiving vancomycin and cefepime for possible hospital-acquired pneumonia. Echo January 2024 normal EF at 55, diastolic dysfunction. On examination patient appeared to be in respiratory distress. Needing 4 to 5 L On initial examination oxygen supplementation with saturations maintained at 90 to 93%. No significant wheezing noted on auscultation. Admits nasal congestion. Etiology likely combination of her baseline respiratory comorbidities/emphysema wit Pneumonia and diastolic heart failure exacerbation. Patient has prior admissions admissions this year with elevated BNP and clinical evidence of volume overload with symptoms improved post diuresis Interval update: Continued improvement in her respiratory distress with antibiotics and Lasix. Recommended to wean antibiotics to clindamycin. Saturating 99% on 2 L methadone this morning. Weaned to 1 L. Continue to wean as tolerated. Plan: Wean antibiotics to clindamycin to complete a total of 7-day course from pulmonary standpoint Volume optimization as per primary team and cardiology. Continue home Advair inhaler therapy Continue oxygen supplementation to maintain O2 saturation of 90% and above Thank you for involving pulmonary in this patient care. Will follow the patient in pulmonary clinic 2 to 4 weeks post discharge.
[2024-08-14] MEDS: VANCOMYCIN HCL 1,250 MG in 0.9 % SODIUM CHLORIDE 250 ML 125 MG IV (10:04)
[2024-08-14 10:35] LABS: POC Glucose,Bedside 152 (70-110)
--- NOTE | 2024-08-14 10:45 | PC.NURSE ---
Report called to [facility] nurse Buc[facility].
--- NOTE | 2024-08-14 11:57 | PC.NURSE ---
Ambulance called and iv removed.
[2024-08-14 12:01] VITALS: PULSE 80
== END 2024-08-14 12:37 | DRG 193 ==
LOC: ER 07:55 → 2ND 10:21
PROVIDERS: Physician Assistant; Admitting Provider Internal Medicine Adolescent Medicine; Emergency Provider Emergency Medicine; PCP Family Medicine; Visit Provider Family Medicine
DX: J18.9 Pneumonia, unspecified organism (principal); I50.33 Acute on chronic diastolic (congestive) heart failure; J96.21 Acute and chronic respiratory failure with hypoxia; J44.1 Chronic obstructive pulmonary disease with (acute) exacerbation; I13.0 Hypertensive heart and chronic kidney disease with heart failure and stage 1 through stage 4 chronic kidney disease, or unspecified chronic kidney disease; J43.9 Emphysema, unspecified; E11.22 Type 2 diabetes mellitus with diabetic chronic kidney disease; M21.962 Unspecified acquired deformity of left lower leg; E66.9 Obesity, unspecified; D64.9 Anemia, unspecified; E78.5 Hyperlipidemia, unspecified; K80.20 Calculus of gallbladder without cholecystitis without obstruction; E83.42 Hypomagnesemia; Z68.32 Body mass index [BMI] 32.0-32.9, adult; Z79.899 Other long term (current) drug therapy; Z99.81 Dependence on supplemental oxygen; N18.30 Chronic kidney disease, stage 3 unspecified
CPT/HCPCS: 36415; 71045; 71275; 80048; 80053; 80202; 81001; 82803; 82962; 83605; 83735; 83880; 84145; 84436; 84443; 84484; 85007; 85014; 85018; 85025; 85048; 85049; 85378; 86140; 87040; 87070; 87077; 87086; 87205; 87633; 87636; 93005; 93306; 94640; 94660; 94760; 94761; 97110; 97163; 97530; 99291; J0131; J1940; J2919; J3370; J3372; J3475; J7030; J7120; J7620; Q9967

== ENCOUNTER 2024-09-29 13:16 | Outpatient (CLI) | payer MEDICARE, BC, SELFPAY ==
--- NOTE | 2024-09-29 14:38 | CT_ITS ---
FINAL REPORT TECHNIQUE: Axial images were obtained from the lung apices through the pubic symphysis by computed tomography. Supine inspiration and expiration and prone inspiration hi-resolution images were obtained and reviewed. This study was performed with techniques to keep radiation doses as low as reasonably achievable, (ALARA). Individualized dose reduction techniques using automated exposure control or adjustment of mA and/or kV according to the patient's size were employed. CLINICAL HISTORY: SOB. HISTORY OF INTERISTIAL LUNG DISEASE. COMPARISON: CTA from 08/08/2024 FINDINGS: There is no axillary or hilar adenopathy. Again noted are moderately enlarged mediastinal nodes. The right paratracheal node measures up to 2.7 x 1.4 cm. There are smaller prevascular nodes present. Heart size is normal. There is some coarse linear opacity at the lung bases. This coarse and basilar linear opacity is stable as compared to the previous exam and may be due to scar or fibrosis. There is no definite honeycombing seen. There is no significant bronchiectasis. There is no pericardial or pleural effusion identified. Gallstones are noted in the gallbladder. IMPRESSION: Stable basilar scar or atelectasis. Stable moderate mediastinal adenopathy. Reviewed, Interpreted and Dictated by Matt Lund MD Transcribed by Yamilex Abbott Authenticated and . [facility]
[2024-09-29] MEDS: IPRATROPIUM/ALBUTEROL 3 ML NEB IH (15:39)
== END 2024-09-29 23:59 | disposition home or self-care (01) ==
LOC: RT 13:17
PROVIDERS: PCP Family Medicine; Visit Provider Internal Medicine Pulmonary Disease
DX: J84.9 Interstitial pulmonary disease, unspecified (principal); R06.09 Other forms of dyspnea
CPT/HCPCS: 71250; 94060; 94727; 94729; J7620

== ENCOUNTER 2024-12-27 09:42 | Emergency (ER) | payer MEDICARE, BC, SELFPAY ==
[2024-12-27 09:49] VITALS: BP 118/52; PULSE 56; RESP 20; TEMP 36.7; O2SAT 90; BMI 34.0
--- NOTE | 2024-12-27 09:57 | XR_ITS ---
PROCEDURE INFORMATION: Exam: XR Right Femur Exam date and time: 12/27/2024 10:02 AM Age: 84 years old Clinical indication: Injury or trauma; Fall; Other: Pain; Additional info: Fall, controlled to ground, bilateral hip pain TECHNIQUE: Imaging protocol: Radiologic exam of the right femur. Views: 2 views. COMPARISON: CR XR HIP RT 2-3V W/PELVIS 12/27/2024 10:02 AM FINDINGS: Bones/joints: Total hip and knee prostheses. No acute fracture or dislocation. No evidence of hardware malfunction. Soft tissues: Unremarkable. IMPRESSION: No acute findings.
--- NOTE | 2024-12-27 09:57 | XR_ITS ---
PROCEDURE INFORMATION: Exam: XR Left Hip Exam date and time: 12/27/2024 10:02 AM Age: 84 years old Clinical indication: Injury or trauma; Fall; Other: Pain; Additional info: Fall, controlled to ground, bilateral hip pain TECHNIQUE: Imaging protocol: Radiologic exam of the left hip. Views: 2 or 3 views hip with pelvis when performed. COMPARISON: CR XR FEMUR LT 2V 12/27/2024 10:02 AM FINDINGS: Bones/joints: Bilateral hip prostheses. No acute fracture or evidence of hardware malfunction. Degenerative changes lumbar spine. Soft tissues: Unremarkable. IMPRESSION: No acute findings.
--- NOTE | 2024-12-27 09:57 | XR_ITS ---
PROCEDURE INFORMATION: Exam: XR Left Femur Exam date and time: 12/27/2024 10:02 AM Age: 84 years old Clinical indication: Injury or trauma; Fall; Other: Pain; Additional info: Fall, controlled to ground, bilateral hip pain TECHNIQUE: Imaging protocol: Radiologic exam of the left femur. Views: 2 views. COMPARISON: CR XR HIP LT 2-3V W/PELVIS 12/27/2024 10:02 AM FINDINGS: Bones/joints: Total hip and knee prostheses. No acute fracture or dislocation. No evidence of hardware malfunction. Soft tissues: Unremarkable. IMPRESSION: No acute findings.
--- NOTE | 2024-12-27 09:57 | XR_ITS ---
PROCEDURE INFORMATION: Exam: XR Right Hip Exam date and time: 12/27/2024 10:02 AM Age: 84 years old Clinical indication: Injury or trauma; Fall; Other: Pain; Additional info: Fall, controlled to ground, bilateral hip pain TECHNIQUE: Imaging protocol: Radiologic exam of the right hip. Views: 2 or 3 views hip with pelvis when performed. COMPARISON: CR XR FEMUR RT 2V 12/27/2024 10:02 AM FINDINGS: Bones/joints: Bilateral hip prostheses. No acute fracture or evidence of hardware malfunction. Degenerative changes lumbar spine. Soft tissues: Unremarkable. IMPRESSION: No acute findings.
--- NOTE | 2024-12-27 09:58 | HMH.EDGENADL ---
Discharge Plan Disposition Patient Disposition: Home, Self-Care Condition: Good Chief Complaint: Fall Prescriptions Prescriptions: No Action fluticasone propion-salmeterol [Wixela Inhub] 250-50 mcg/dose blister with device 1 inh inhalation BID 90 Days Qty: 180 3RF fluticasone propionate [Flonase Allergy Relief] 50 mcg/actuation spray,suspension 2 spray intranasal DAILY 90 Days Qty: 16 2RF Rx Instructions: administer into each nostril montelukast 10 mg tablet 10 mg PO QPM 90 Days Qty: 90 2RF albuterol sulfate 90 mcg/actuation HFA aerosol inhaler 2 inh inhalation Q6H PRN (Reason: shortness of breath or wheezing) 90 Days Qty: 8.5 2RF fluticasone propion-salmeterol [Wixela Inhub] 250-50 mcg/dose blister with device 1 ea INHALATION BID oxybutynin chloride 10 mg tablet extended release 24hr 20 mg PO DAILY Patient Comments: TAKE 2 TABLETS BY MOUTH ONCE DAILY escitalopram oxalate 20 mg tablet 20 mg PO DAILY Patient Comments: TAKE 1 TABLET BY MOUTH ONCE DAILY irbesartan 300 mg Tablet 300 mg PO DAILY Qty: 30 0RF calcium carbonate [Calcium 600] 600 mg calcium (1,500 mg) Tablet 600 mg PO DAILY PreserVision AREDS-2 250-90-40-1 mg Capsule 1 tab PO BID multivitamin Tablet 1 tab PO DAILY glucosamine sulfate 2KCl 1,000 mg Tablet 1,000 mg PO DAILY Rx Instructions: administer with meals mecobalamin (vitamin B12) [B12 Active] 1,000 mcg Tablet,Chewable 3,000 mcg PO DAILY metformin 500 MG tablet 500 mg PO BIDWMEAL simvastatin 20 tablet 20 mg PO HS montelukast 10 MG tablet 10 mg PO DAILY metoprolol succinate 50 mg tablet extended release 24 hr 50 mg PO DAILY Patient Comments: TAKE 1 TABLET BY MOUTH ONCE DAILY esomeprazole magnesium 40 mg capsule,delayed release(DR/EC) 40 mg PO DAILY tizanidine 2 mg tablet 2 mg PO HSP PRN (Reason: Muscle Pain) azelastine 137 mcg (0.1 %) [place],Non-Aerosol 2 spray INTRANASAL DAILY Rx Instructions: administer into each nostril fluticasone propionate 50 mcg/actuation [place],Suspension 2 spray INTRANASAL DAILY Rx Instructions: administer into each nostril furosemide 40 mg Tablet 40 mg PO DAILY spironolactone 50 mg tablet 50 mg PO DAILY Qty: 30 0RF dapagliflozin propanediol [Farxiga] 10 mg tablet 10 mg PO DAILY Qty: 30 0RF pregabalin [Lyrica] 75 capsule 75 mg PO BID Qty: 60 0RF Referrals Follow up/Referrals: Allan Adamson MD [Primary Care Provider] - See instructions Activity Restrictions/Add. Instructions Additional Instructions/Restrictions: Please follow-up with primary care provider regarding today's visit to the ED. Return to ED if symptoms worsen. Clinical Impressions Clinical Impression: Fall, Acute hip pain, bilateral Instructions Patient Instructions: How to Prevent Falls Print Language Print Language: Georgian Discharge ED Provider: Nathan Gates General Adult HPI General Chief complaint: Fall Stated complaint: Assisted Fall, R hip/tailbone pain Time Seen by Provider: 12/27/24 09:46 Mode of Arrival: EMS Source of Information: Patient and EMS Description of Symptoms (Recalled from ER Triage Doc. by RN): States she was trying to transfer herself from a chair to her wheelchair when her knees gave out and she was assisted to the floor. Denies hitting her head or LOC. Complaint of right hip pain. History of Present Illness HPI narrative: 84-year-old female presents to ED via EMS from care facility due to falling from her wheelchair while trying to transfer from chair to wheelchair. States that her knees gave out, patient was assisted to the floor without significant fall mechanism or injury. Denies head injury, loss of consciousness, neck pain, back pain beyond her chronic back pain, further injury or complaints beyond pain at left and right hips with right hip being more painful. Pulse motor sensory intact. Past medical history significant for COPD, 4 L O2 at baseline, diabetes, spinal stenosis, heart failure. Patient denies chest pain, shortness of breath, nausea, vomiting, abdominal pain, any other symptoms or complaints at this time Please note that above description of symptoms, in this electronic medical record under categorization of recalled from ER triage doctor by RN are reflective of an initial nursing assessment, however, is not reflective of my full history and physical exam that was personally taken and clarified. Consequentially, this preceding description of symptoms, which may include the patient's categorized chief complaint in the EMR, do not reflect my personal clinical impression, and the ultimate description of history of present illness and patient stated complaints should be deferred to this section of the note. Unless stated otherwise or congruent with this section of the note, additional signs, symptoms, or incongruence should be interpreted as inaccurate with my clinical impression. Related Data Home Medications ?Medication ?Instructions ?Recorded ?Confirmed metformin 500 mg tablet 500 mg PO BIDWMEAL 03/06/18 09/29/24 montelukast 10 mg tablet 10 mg PO DAILY 03/06/18 09/29/24 simvastatin 20 mg tablet 20 mg PO HS 03/06/18 09/29/24 escitalopram oxalate 20 mg tablet 20 mg PO DAILY 11/10/23 09/29/24 fluticasone 250 mcg-salmeterol 50 1 ea inhalation BID 11/10/23 09/29/24 mcg/dose blistr powdr for inhalation (Wixela Inhub) oxybutynin chloride 10 mg 20 mg PO DAILY 11/10/23 09/29/24 tablet,extended release 24 hr esomeprazole magnesium 40 mg 40 mg PO DAILY 05/09/24 09/29/24 capsule,delayed release metoprolol succinate 50 mg 50 mg PO DAILY 05/09/24 09/29/24 tablet,extended release 24 hr tizanidine 2 mg tablet 2 mg PO HSP PRN Muscle Pain 05/09/24 09/29/24 azelastine 137 mcg (0.1 %) nasal 2 spray intranasal DAILY 05/12/24 09/29/24 spray fluticasone propionate 50 2 spray intranasal DAILY 05/12/24 09/29/24 mcg/actuation nasal spray,suspension calcium carbonate (Calcium 600) 600 mg PO DAILY 07/08/24 09/29/24 glucosamine sulfate 2KCl 1,000 mg 1,000 mg PO DAILY 07/08/24 09/29/24 tablet mecobalamin (vitamin B12) 1,000 3,000 mcg PO DAILY 07/08/24 09/29/24 mcg chewable tablet (B12 Active) multivitamin 1 tab PO DAILY 07/08/24 09/29/24 vit C 250 mg-vit E 90 mg-zinc 40 1 tab PO BID 07/08/24 09/29/24 mg-copper 1 [id number] capsule (PreserVision AREDS-2) furosemide 40 mg tablet 40 mg PO DAILY 08/08/24 09/29/24 Previous Rx's ?Medication ?Instructions ?Recorded irbesartan 300 mg tablet 300 mg PO DAILY #30 tabs 02/25/24 dapagliflozin propanediol 10 mg 10 mg PO DAILY #30 tabs 08/14/24 tablet (Farxiga) pregabalin 75 mg capsule (Lyrica) 75 mg PO BID #60 caps 08/14/24 spironolactone 50 mg tablet 50 mg PO DAILY #30 tabs 08/14/24 albuterol sulfate 90 mcg/actuation 2 inh inhalation Q6H PRN shortness 09/29/24 aerosol inhaler of breath or wheezing 90 days #8.5 grams fluticasone 250 mcg-salmeterol 50 1 inh inhalation BID 90 days #180 09/29/24 mcg/dose blistr powdr for ea inhalation (Wixela Inhub) fluticasone propionate 50 2 spray intranasal DAILY 90 days 09/29/24 mcg/actuation nasal #16 grams spray,suspension (Flonase Allergy Relief) montelukast 10 mg tablet 10 mg PO QPM 90 days #90 tabs 09/29/24 Allergies Allergy/AdvReac Type Severity Reaction Status Date / Time pollen extracts (POLLEN Allergy Intermediate ASTHMA Verified 09/29/24 15:33 EXTRACTS) [facility] Disclaimer: The information contained in this section may have been updated after the patient was seen, as this information can be updated by other users. Medical History (Updated 12/27/24 @ 10:59 by Nathan Gates DO) Asthma Fibrosis of lung Decreased diffusion capacity of lung Pulmonary emphysema Chronic respiratory failure with hypoxia Recurrent pneumonia Acute and chronic respiratory failure with hypoxia Lumbar radiculopathy Degenerative disc disease, lumbar Paratracheal lymphadenopathy CAP (community acquired pneumonia) RICHIE (acute kidney injury) Hypertensive urgency Elevated brain natriuretic peptide (BNP) level Hypertensive emergency CKD (chronic kidney disease) stage 3, GFR 30-59 ml/min Pneumonia Allergic rhinitis Colon polyps Hemorrhoids, internal Osteoporosis Herpes zoster Closed left ankle fracture Closed left hip fracture Lumbar spinal stenosis Lumbar compression fracture Ocular melanoma COPD (chronic obstructive pulmonary disease) Mediastinal lymphadenopathy Sleep apnea Hyperlipidemia Neuropathy Depression GERD (gastroesophageal reflux disease) Arthritis Hypertension Diabetes Surgical History History of right knee joint replacement History of left knee replacement History of left hip replacement History of left ankle joint replacement 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 History of arthroplasty of right knee History of appendectomy Family History Other Heart attack Social History Smoking Status: Former smoker alcohol intake: never substance use type: denies use current occupational status: other Travel in the last 8 weeks?: None household members: none caffeine: Yes Have you lived/traveled outside US in past 30 days?: No Contact w/someone who lives/traveled outside US past 30 days?: No Exposure to someone with infectious disease in past 14 days?: No Do you have a fever (greater than 100.4 F or 38 C)?: No Have you tested positive for COVID-19?: No Exposed to someone with COVID-19 in past 14 days?: No Do you have a sore throat?: No Do you have a cough?: No Do you have any weakness?: No Do you have any diarrhea?: No Are you experiencing any unusual bleeding?: No Do you have any muscle aches/pain?: Yes Do you have any abdominal pain?: No Are you experiencing loss of taste or smell?: No Other Medical History Have you received the Flu Vaccine for this season: No Have you received the Pneumonia Vaccine: Yes ROS Obtained: Yes Systems reviewed as appropriate & no additional complaints except as documented Physical Exam General General appearance: alert and in no apparent distress Head Head exam: atraumatic, normocephalic and normal inspection Eye Eye exam: Present normal appearance and EOMI ENT ENT exam: Present normal exam Neck Neck exam: Present normal inspection, full ROM and tenderness Chest Chest inspection: Present normal inspection and symmetric chest wall rise; Absent tenderness Respiratory Respiratory exam: Present normal lung sounds bilaterally; Absent respiratory distress, wheezes, stridor or accessory muscle use Cardiovascular Cardiovascular exam: Present regular rate, normal rhythm and normal heart sounds Abdominal Exam Abdominal exam: Present soft and normal bowel sounds; Absent distention, tenderness, guarding, rebound or rigidity Extremities Exam Extremities exam: Present normal inspection, full ROM and tenderness (Mild tenderness to palpation of right and left hips. Spine nontender to palpation, remainder of exam without tenderness. Patient has deformity of left ankle which is chronic, nontender. Pulse motor sensory intact) Back Exam Back exam: Present normal inspection; Absent tenderness Neurological Exam Neurological exam: Present alert, oriented X3, CN II-XII intact and motor sensory deficit (Motor and sensory intact beyond neuropathy of bilateral lower extremities at feet which is chronic, symmetrical, and normal for patient.) Psychiatric Psychiatric exam: Present normal affect and normal mood Skin Skin exam: Present warm, dry, intact and normal color; Absent rash Medical Decision Making Medical Records Medical records reviewed: Yes I reviewed the patient's medical records. Screening: Per USPSTF and CDC recommendations, given the prevalence of disease in our region, it is our hospital?s policy to screen for HIV and viral Hepatitis for all patients aged 18 and over and those with ongoing risk factors. Gabriele Inquiry Pt receiving controlled substance: No Vital Signs: 12/27/24 09:49 Temperature 98.0 F Temperature Source Oral Pulse Rate [Radial] 56 L Respiratory Rate 20 Blood Pressure [Right Arm] 118/52 L Blood Pressure Mean [Right Arm] 74 Blood Pressure Source [Right Arm] Automatic Cuff Blood Pressure Position [Right Arm] Sitting 02 Sat by Pulse Oximetry 90 L Oxygen Delivery Method Nasal Cannula Oxygen Flow Rate (LPM) 4 Orders (Tests/Meds): ORDERS Category Date Time Status Hip XR left minimum 2 views [XR hip LT 2-3V w/pelvis] Exams 12/27/24 09:57 Completed Stat XR femur LT 2V Stat Exams 12/27/24 09:57 Completed XR femur RT 2V Stat Exams 12/27/24 09:57 Completed XR hip RT 2-3V w/pelvis Stat Exams 12/27/24 09:57 Completed Medical Decision Narrative: Patient with history and exam per above presenting for evaluation of controlled fall without loss of consciousness for which patient is now having some worsening pain of bilateral hips. Physical and neurologic exam as above, reassuring. Patient denies chest pain, shortness of breath, on baseline O2 requirement. Fall was mechanical and controlled this patient was trying to transfer from chair to wheelchair and was assisted to the ground without significant injury per report and per patient Diagnoses considered include fracture, dislocation, musculoskeletal pain, ligamentous injury, among others ED workup and treatment included: As above, radiographs obtained. Further imaging and labs deferred given reassuring story, physical exam, patient presentation. Imaging was independently visualized and interpreted by me, significant for no noted acute fracture or dislocation, prosthetic hardware in place without noted failure, damage. Please refer to radiology report for full details. My clinical impression at this time is most consistent with fall with musculoskeletal pain. On reassessment patient resting comfortably, doing well. Remains hemodynamically stable, well-appearing. Medically clear for discharge at this time. Patient is agreeable with this plan. Given instructions to return to ED if symptoms worsen otherwise to follow-up with patient primary care provider. Discharged with hemodynamically stable vitals I discussed my clinical impression with patient and answered all questions. At this time, the evidence for any other entities in the differential is insufficient to warrant any further testing or ED observation. This was explained to the patient. The patient was advised that persistent or worsening symptoms require further evaluation. Critical Care Critical Care Time Critical Care Time: No
[2024-12-27 10:00] VITALS: BP 124/40; PULSE 57; RESP 14; O2SAT 83
--- NOTE | 2024-12-27 10:09 | PC.NURSE ---
RAD currently in room with pt for xrays at bedside
[2024-12-27 10:30] VITALS: BP 132/46; RESP 17
[2024-12-27 11:00] VITALS: BP 127/50; RESP 20
[2024-12-27 11:31] VITALS: BP 127/50; PULSE 57; RESP 18; TEMP 36.7; O2SAT 90
== END 2024-12-27 11:32 | disposition home or self-care (01) ==
PROVIDERS: Emergency Provider Student in an Organized Health Care Education/Training Program; PCP Family Medicine
DX: M25.551 Pain in right hip (principal); M25.552 Pain in left hip; W07.XXXA Fall from chair, initial encounter
CPT/HCPCS: 73502; 73552; 99284

== ENCOUNTER 2025-02-21 10:16 | Outpatient (CLI) | payer MEDICARE, BC, SELFPAY ==
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
--- OUTSIDE RECORDS SUMMARY | 2025-02-21 10:19 | XMS_ITS | Clinical Summary ---
Author Organization [email or web address] [employer] Address [address] [place] [id number] Care Team Providers Care Dealer Support Technician Name Role Phone Unavailable Primary Care Provider Unavailabl e Social History Tobacco Use Types Packs/Day Years Used Date Smoking Tobacco: Never Assessed Comments Unknown Sex and Gender Information Value Date Recorded Sex Assigned at Female 02/20/2022 5:50 PM CDT Legal Sex Female 5:50 PM CDT Gender Identity Female 02/20/2022 5:50 PM CDT Sexual Orientation Not on file Plan of Treatment Not on file
--- OUTSIDE RECORDS SUMMARY | 2025-02-21 10:19 | XMS_ITS | Referral Summary ---
Author Organization [facility] [employer] Address [address] [place] [id number] Care Team Providers Care Reo Asset Manager Name Role Phone Unavailable Primary Care Provider [...]
--- OUTSIDE RECORDS SUMMARY | 2025-02-21 10:19 | XMS_ITS | Clinical Summary ---
Author Organization [facility] Address [address] [place] [address] Care Team Providers Care Mechanical Expert Name Role Phone Allan Adamson MD Primary Care Provider [phone] Allergies No known active allergies Medications lisinopril 20 MG tablet Take 20 mg by mouth 1 (one) time each day. Active simvastatin (Zocor) 10 MG tablet Take 20 mg by mouth every night. Active glucosamine-cho ndroitin 500-400 MG tablet Take 1 tablet by mouth 3 (three) times a day. Active calcium citrate-vitamin D 250-100 MG-UNIT tablet Take 1 tablet by mouth 2 (two) times a day. Active escitalopram (Lexapro) 20 MG tablet Take 20 mg by mouth 1 (one) time each day. Active montelukast (Singulair) 10 MG tablet Take 10 mg by mouth every night. Active celecoxib (CeleBREX) 200 MG capsule Take 200 mg by mouth 2 (two) times a day. Active HYDROcodone-rikki taminophen ([place]) 5-325 MG tablet Active oxybutynin XL (Ditropan-XL) 10 MG 24 hr tablet Take 10 mg by mouth 2 (two) times a day. Do not crush, chew, or split. Active cetirizine (ZyrTEC) 10 MG tablet Take 10 mg by mouth 1 (one) time each day. Active metFORMIN (Glucophage) 1000 MG tablet Take 1,000 mg by mouth 2 (two) times a day with meals. Active esomeprazole (NexIUM) [address] capsule Take 20 mg by mouth 1 (one) time each day before breakfast. Do not open capsule. Active amoxicillin-cla vulanate (Augmentin) 875-125 MG tablet Take 1 tablet by mouth 2 (two) times a day. 14 tablet 2 Active Elastic Bandages & Supports (Post-OP Shoe/Soft Top Men) misc Use for ambulation on surgical foot as instructed 1 each 2 Active Social History Tobacco Use Types Packs/Day Years Used Date Smoking Tobacco: Never Smokeless Tobacco: Never Alcohol Use Standard Drinks/Week Comments Not Currently 0 (1 standard drink = 0.6 oz pur e alcohol) Comments No Sex and Gender Information Value Date Recorded Sex Assigned at Not on file Legal Sex Female 8:25 PM EDT Gender Identity Not on file Sexual Orientation Not on file Last Filed Vital Signs Vital Sign Reading Time Taken Comments Blood Pressure 147/70 02/14/2022 11:00 AM EDT Pulse 66 02/14/2022 11:00 AM EDT Temperature 36.1 C (97 F) 02/14/2022 11:00 AM EDT Respiratory Rate 15 02/14/2022 11:00 AM EDT Oxygen Saturation 93% 02/14/2022 11:00 AM EDT Inhaled Oxygen Concentration - - Weight 97 kg (213 lb 13.5 oz) 02/14/2022 7:50 AM EDT Height 165.1 cm (5' 5 ) 02/14/2022 7:50 AM EDT Body Mass Index 35.59 02/14/2022 7:50 AM EDT Plan of Treatment Not on file Insurance MEDICARE [facility] Care Teams Mechanical Expert Relationship Specialty Start Date End Date Allan Adamson MD [facility] [place] [address] PCP - General 01/06/21
--- OUTSIDE RECORDS SUMMARY | 2025-02-21 10:20 | XMS_ITS | Patient Health Record ---
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 Role Phone Allan Adamson Primary Care Provider Ata Vences Unavailable [phone] Yvette Harris Unavailable [phone] MylesYanci mccauley Unavailable [phone] Allergies No Known Allergies Results Component Value [...] 26 Performing Lab: Notes/Report: Test performed by [email or web address] [address] [place] [address] , [address], [place] [address] Tristian Amado MD, Event Planner CLIA: [id number] Sodium 142 135-145 mmol/L Potassium 5.0 3.5-5.3 mmol/L Chloride 99 97-108 mmol/L CO2 34 22-32 mmol/L Glucose 61 65-99 mg/dL BUN 51 8-23 mg/dL Creatinine 1.87 0.50-1.00 mg/dL Calcium 9.3 8.6-10.4 mg/dL eGFR by Creatinine 26 >59 mL/min/1.73m2 P-Hemoglobin A1C Reviewed date:12/22/2024 09:28:32 AM Interpretation:6.1 Performing Lab: Notes/Report: Test performed by [facility] [address] [place] [address] [address], [place] [address] Tristian Amado MD, Event Planner CLIA: [id number] Hemoglobin A1C 6.1 <5.7 % The following HbA1c ranges recommended by the [place] [employer] (ADA) may be used as an aid in the diagnosis of diabetes mellitus. HbA1c Suggested Diagnosis >=6.5% Diabetic 5.7% - 6.4% Pre-Diabetic <5.7% Non-Diabetic P-Magnesium Reviewed date:12/22/2024 09:28:32 AM Interpretation: Normal Performing Lab: Notes/Report: Test performed by [facility] [address] [place] [address] [place] [address] Tristian Amado MD, Event Planner CLIA: [id number] Magnesium 1.9 1.6-2.4 mg/dL Estimated Average Glucose Reviewed date:12/22/2024 09:28:32 AM Interpretation:128 Performing Lab: Notes/Report: Test performed by [email or web address] [address] [place] [address] Tristian Amado MD, Event Planner CLIA: [id number] Estimated Average Glucose (eAG) 128 Estimated Average Glucose (eAG) is calculated using the equation eAG = (28.7 x HbA1c) - 46.7 based on the guidelines established by the ADA. If the patient has certain diseases including kidney disease, sickle cell anemia, thalassemia, or is taking medications such as dapsone, erythropoietin, or iron, eAG should not be evaluated. P-Basic Metabolic Panel (BMP ) Reviewed date:05/06/2024 08:56:47 AM Interpretation:bun 27, Cr 1.32, gfr 39 Performing Lab: Notes/Report: Test performed by [facility] [address] [place] [address] [place] [address] Tristian Amado MD, Event Planner CLIA: [id number] Sodium 145 135-145 mmol/L Potassium 4.4 3.5-5.3 mmol/L Chloride 103 97-108 mmol/L CO2 32 22-32 mmol/L Glucose 97 65-99 mg/dL BUN 27 8-23 mg/dL Creatinine 1.32 0.50-1.00 mg/dL Calcium 8.7 8.6-10.4 mg/dL eGFR by Creatinine 39 >59 mL/min/1.73m2 H-CMP Reviewed date:07/13/2024 03:48:34 PM Interpretation: Performing Lab: Notes/Report: NA 138 136-145 mmol/L K 3.5 3.5-5.1 mmoL/L CL 89 98-107 mmol/L CO2 37 22.0-30.0 mmol/L GAP 15.5 5-15 mEq/L BUN 36 7-17 mg/dl CREATT 0.90 0.52-1.04 mg/dl CRCLE 61 50-200 mL/min GFRAA 72 >60 ML/MIN EGFR 60 >60 ml/min GLU 325 74-100 mg/dl CA 7.7 8.4-10.2 mg/dl BILIT 0.6 0.2-1.3 mg/dl AST 46 14-36 U/L ALT 52 12-78 U/L TP 6.4 6.3-8.2 g/dl ALB 3.4 3.5-5.0 g/dl GLOB 3.0 1.3-3.2 g/dL AGRATIO 1.1 1.1-1.8 ALP 74 38-126 U/L H-DIFF Reviewed date:07/14/2024 10:33:49 AM Interpretation: Performing Lab: Notes/Report: PIPE MANUAL DIFFERENTIAL MANUAL DIFF TCC 100 NEUT%M 84 42-76 % LYMPH%M 14 10-50 % MONO%M 2 2-9 % PLTE Normal HYPO 1+ H-BMP Reviewed date:07/14/2024 08:47:31 AM Interpretation: Performing Lab: Notes/Report: NA 137 136-145 mmol/L K 3.7 3.5-5.1 mmoL/L CL 88 98-107 mmol/L GAP 12.7 5-15 mEq/L BUN 38 7-17 mg/dl CREATT 0.80 0.52-1.04 mg/dl CRCLE 61 50-200 mL/min GFRAA 82 >60 ML/MIN EGFR 68 >60 ml/min GLU 228 74-100 mg/dl Delta: 325 on 07/13/24 Delta: 325 on 07/13/24 CA 7.9 8.4-10.2 mg/dl NA 137 136-145 mmol/L K 3.7 3.5-5.1 mmoL/L CL 88 98-107 mmol/L CO2 37 22.0-30.0 mmol/L GAP 15.7 5-15 mEq/L BUN 38 7-17 mg/dl CREATT 0.80 0.52-1.04 mg/dl CRCLE 61 50-200 mL/min GFRAA 82 >60 ML/MIN EGFR 68 >60 ml/min GLU 228 74-100 mg/dl Delta: 325 on 07/13/24 Delta: 325 on 07/13/24 CA 7.9 8.4-10.2 mg/dl H-CBC Reviewed date:07/15/2024 04:26:26 PM Interpretation: Performing Lab: Notes/Report: WBC 11.9 4.8-10.8 K/mm3 RBC 5.02 4.20-5.40 M/mm3 HGB 12.0 12.2-16.2 g/dL HCT 38.4 37.0-47.0 % MCV 76.5 81-99 fl MCH 23.9 27.0-31.2 pg MCHC 31.2 31.8-35.4 g/dL RDW 18.5 11.5-17.5 % PLT 182 142-424 K/mm3 MPV 8.1 7.4-10.4 fl NE% 88.5 37.0-80.0 % LY% 6.1 10-50 % MO% 4.5 1.7-9.3 % EO% 0.5 0.1-12.0 % BA% 0.4 0.1-2.0 % NE# 10.5 1.8-7.8 K/mm3 LY# 0.7 0.7-4.5 K/mm3 MO# 0.5 0.1-1.0 K/mm3 EO# 0.1 0.0-0.4 K/mm3 BA# 0.1 0-0.2 K/mm3 H-DIFF Reviewed date:07/15/2024 04:26:26 PM Interpretation: Performing Lab: Notes/Report: PIPE MANUAL DIFFERENTIAL MANUAL DIFF TCC 100 NEUT%M 86 42-76 % LYMPH%M 13 10-50 % MONO%M 1 2-9 % PLTE Normal HYPO 2+ H-BMP Reviewed date:07/15/2024 11:15:17 AM Interpretation: Performing Lab: Notes/Report: NA 138 136-145 mmol/L K 3.9 3.5-5.1 mmoL/L CL 91 98-107 mmol/L CO2 37 22.0-30.0 mmol/L GAP 13.9 5-15 mEq/L BUN 41 7-17 mg/dl CREATT 0.80 0.52-1.04 mg/dl CRCLE 59 50-200 mL/min GFRAA 82 >60 ML/MIN EGFR 68 >60 ml/min GLU 183 74-100 mg/dl CA 7.6 8.4-10.2 mg/dl H-Vancomycin, Peak Reviewed date:08/12/2024 02:40:36 PM Interpretation: Performing Lab: Notes/Report: VANCP 29.6 11-39 ug/ml H-CBC Reviewed date:05/11/2024 09:23:49 AM Interpretation: Performing Lab: Notes/Report: WBC 6.6 4.8-10.8 K/mm3 RBC 4.25 4.20-5.40 M/mm3 HGB 9.9 12.2-16.2 g/dL HCT 34.6 37.0-47.0 % MCV 81.5 81-99 fl MCH 23.3 27.0-31.2 pg MCHC 28.6 31.8-35.4 g/dL RDW 19.9 11.5-17.5 % PLT 197 142-424 K/mm3 MPV 9.4 7.4-10.4 fl NE% 69.3 37.0-80.0 % LY% 18.1 10-50 % MO% 9.0 1.7-9.3 % EO% 2.6 0.1-12.0 % BA% 1.0 0.1-2.0 % NE# 4.6 1.8-7.8 K/mm3 LY# 1.2 0.7-4.5 K/mm3 MO# 0.6 0.1-1.0 K/mm3 EO# 0.2 0.0-0.4 K/mm3 BA# 0.1 0-0.2 K/mm3 H-UA Reviewed date:05/11/2024 09:23:49 AM Interpretation: Performing Lab: Notes/Report: Method to collect specimen clean catch UCOL YELLOW Yellow UAPP CLEAR Clear UPH 7.0 5.0-8.5 USG 1.015 1.005-1.030 UPRO Negative Negative UGLU Negative Negative UKET Negative Negative UBLD Negative Negative UNIT Negative Negative UBIL Negative Negative UURO 0.2 0.2 EU/dl ULEU Negative Negative UMICU URINE MICROSCOPIC MICROSCOPIC URBC None 0-3 #/hpf UWBC Occasional 0-3 #/hpf USQEPI Occasional 0-5 #/hpf UBACT None NONE /lpf H-CMP Reviewed date:05/11/2024 09:23:50 AM Interpretation: Performing Lab: Notes/Report: NA 141 136-145 mmol/L K 4.5 3.5-5.1 mmoL/L CL 105 98-107 mmol/L CO2 33 22.0-30.0 mmol/L GAP 7.5 5-15 mEq/L BUN 23 7-17 mg/dl CREATT 1.20 0.52-1.04 mg/dl CRCLE 53 50-200 mL/min GFRAA 52 >60 ML/MIN EGFR 43 >60 ml/min GLU 108 74-100 mg/dl CA 8.6 8.4-10.2 mg/dl BILIT 0.6 0.2-1.3 mg/dl AST 33 14-36 U/L ALT 17 12-78 U/L TP 6.6 6.3-8.2 g/dl ALB 3.5 3.5-5.0 g/dl GLOB 3.1 1.3-3.2 g/dL AGRATIO 1.1 1.1-1.8 ALP 74 38-126 U/L H-Culture, Blood Reviewed date:05/15/2024 10:24:55 AM Interpretation: Performing Lab: Notes/Report: CUBLD NO GROWTH AFTER 5 DAYS CUBLD NO GROWTH AFTER 5 DAYS H-Sputum Culture with Gram Chaim gilliland Reviewed date:05/14/2024 08:29:43 AM Interpretation: Performing Lab: Notes/Report: Comment: Induce w/3ml NS neb tx if necessary GS Gram Stain: GS 10 - 25 White Blood Cells / LPF GS Moderate Gram Positi ve Cocci GS <10 Epithelial Cells / LPF CUSPU ORGANISM 1: Staphylococcus aureus RX CHANG: R- Resistant S- Susceptible I- Intermediate * [facility]: R- Resistant S- Susceptible I- Intermediate * Not on [facility] RX CHANG: R- Resistant S- Susceptible I- Intermediate * Not on [facility] RX CHANG: R- Resistant S- Susceptible I- Intermediate * Not on [facility] Staphylococcus aureu s: REACTION RX CHANG: R- Resistant S- Susceptible I- Intermediate * Not on [facility] Clindamycin <=0.5 S RX CHANG: R- Resistant S- Susceptible I- Intermediate * Not on [facility] Erythromycin <=0.5 S RX CHANG: R- Resistant S- Susceptible I- Intermediate * Not on [facility] Gentamicin <=1 S RX CHANG: R- Resistant S- Susceptible I- Intermediate * Not on [facility] Minocycline <=1 S RX CHANG: R- Resistant S- Susceptible I- Intermediate * Not on [facility] Oxacillin <=0.25 S RX CHANG: R- Resistant S- Susceptible I- Intermediate * Not on [facility] Rifampin <=0.5 S RX CHANG: R- Resistant S- Susceptible I- Intermediate * Not on [facility] Tetracycline <=0.5 S RX CHANG: R- Resistant S- Susceptible I- Intermediate * Not on [facility] Trimethoprim/Sulfame tho xazole <=0.5/9.5 S RX CHANG: R- Resistant S- Susceptible I- Intermediate * Not on [facility] Vancomycin 1 S RX CHANG: R- Resistant S- Susceptible I- Intermediate * Not on [facility] RX CHANG: R- Resistant S- Susceptible I- Intermediate * Not on [facility] H-CBC Reviewed date:05/11/2024 09:23:49 AM Interpretation: Performing Lab: Notes/Report: WBC 6.2 4.8-10.8 K/mm3 RBC 4.07 4.20-5.40 M/mm3 HGB 9.7 12.2-16.2 g/dL HCT 32.8 37.0-47.0 % MCV 80.4 81-99 fl MCH 23.7 27.0-31.2 pg MCHC 29.5 31.8-35.4 g/dL RDW 19.7 11.5-17.5 % PLT 178 142-424 K/mm3 MPV 9.1 7.4-10.4 fl NE% 68.3 37.0-80.0 % LY% 17.8 10-50 % MO% 10.5 1.7-9.3 % EO% 3.2 0.1-12.0 % BA% 0.3 0.1-2.0 % NE# 4.2 1.8-7.8 K/mm3 LY# 1.1 0.7-4.5 K/mm3 MO# 0.7 0.1-1.0 K/mm3 EO# 0.2 0.0-0.4 K/mm3 BA# 0.0 0-0.2 K/mm3 H-BMP Reviewed date:05/11/2024 09:23:49 AM Interpretation: Performing Lab: Notes/Report: NA 140 136-145 mmol/L K 4.1 3.5-5.1 mmoL/L CL 103 98-107 mmol/L CO2 35 22.0-30.0 mmol/L GAP 6.1 5-15 mEq/L BUN 18 7-17 mg/dl CREATT 0.90 0.52-1.04 mg/dl Delta: 1.20 on 05/09/24 CRCLE 63 50-200 mL/min GFRAA 72 >60 ML/MIN Delta: 52 on 05/09/24 EGFR 60 >60 ml/min GLU 102 74-100 mg/dl CA 8.7 8.4-10.2 mg/dl H-CBC Reviewed date:07/11/2024 09:06:38 AM Interpretation: Performing Lab: Notes/Report: WBC 7.6 4.8-10.8 K/mm3 Delta: 12.6 o n 07/08/24 RBC 4.33 4.20-5.40 M/mm3 HGB 10.3 12.2-16.2 g/dL HCT 33.4 37.0-47.0 % MCV 77.1 81-99 fl MCH 23.8 27.0-31.2 pg MCHC 30.9 31.8-35.4 g/dL RDW 18.9 11.5-17.5 % PLT 163 142-424 K/mm3 MPV 7.5 7.4-10.4 fl NE% 89.4 37.0-80.0 % LY% 4.7 10-50 % MO% 5.7 1.7-9.3 % EO% 0.1 0.1-12.0 % BA% 0.2 0.1-2.0 % NE# 6.8 1.8-7.8 K/mm3 LY# 0.4 0.7-4.5 K/mm3 MO# 0.4 0.1-1.0 K/mm3 EO# 0.0 0.0-0.4 K/mm3 BA# 0.0 0-0.2 K/mm3 H-DIFF Reviewed date:07/11/2024 09:06:38 AM Interpretation: Performing Lab: Notes/Report: PIPE MANUAL DIFFERENTIAL MANUAL DIFF TCC 100 NEUT%M 90 42-76 % LYMPH%M 8 10-50 % MONO%M 2 2-9 % PLTE Normal RM Normal H-BMP Reviewed date:07/11/2024 09:06:38 AM Interpretation: Performing Lab: Notes/Report: NA 140 136-145 mmol/L K 3.3 3.5-5.1 mmoL/L Delta: 5.1 on 07/08/24 CL 94 98-107 mmol/L CO2 40 22.0-30.0 mmol/L GAP 9.3 5-15 mEq/L BUN 35 7-17 mg/dl CREATT 0.80 0.52-1.04 mg/dl Delta: 1.10 on 07/08/24 CRCLE 64 50-200 mL/min GFRAA 82 >60 ML/MIN Delta: 57 on 07/08/24 EGFR 68 >60 ml/min GLU 242 74-100 mg/dl CA 8.6 8.4-10.2 mg/dl H-Sputum Culture with Gram Chaim gilliland Reviewed date:07/15/2024 06:28:51 PM Interpretation: Performing Lab: Notes/Report: Cancel Comments Cancelled via OM: Order cancelled - Patient discharged Comment: Induce w/3ml NS neb tx if necessary P-Magnesium Reviewed date:03/23/2024 09:26:48 AM Interpretation:Normal Performing Lab: Notes/Report: Test performed by [facility] [address] [place] [address] , [address], [place] [address] Tristian Amado MD, Event Planner CLIA: [id number] Magnesium 2.0 1.6-2.4 mg/dL P-Basic Metabolic Panel (BMP ) Reviewed date:03/23/2024 09:26:19 AM Interpretation:bun 64, creat 1.63, K+ 5.4, gfr 31 Performing Lab: Notes/Report: Test performed by [email or web address] [address] , [address], [place] [address] Tristian Amado MD, Event Planner CLIA: [id number] Sodium 145 135-145 mmol/L Potassium 5.4 3.5-5.3 mmol/L Chloride 108 97-108 mmol/L CO2 26 22-32 mmol/L Glucose 89 65-99 mg/dL BUN 64 8-23 mg/dL Creatinine 1.63 0.50-1.00 mg/dL Calcium 9.3 8.6-10.4 mg/dL eGFR by Creatinine 31 >59 mL/min/1.73m2 CBC Venipuncture (in house) Reviewed date:03/23/2024 09:27:05 AM Interpretation: Performing Lab: Notes/Report: wbc 5.2 3.5 - 10 lymph 23.7% 15 - 50 mid 5.9% 2 - 15 gran 70.4% 35 - 80 rbc 4.18 3.5 - 5.5 hgb 10.3 11.5 - 16.5 hct 33.4 35 - 55 mcv 79.8 75 - 100 mch 24.7 25 - 35 mchc 31.0 31 - 38 platlet 113 100 - 400 CBC Venipuncture (in house) Reviewed date:04/29/2024 09:47:53 AM Interpretation: Performing Lab: Notes/Report: wbc 6.7 3.5 - 10 lymph 21.7 15 - 50 mid 6.7 2 - 15 gran 71.6 35 - 80 rbc 4.03 3.5 - 5.5 hgb 9.9 11.5 - 16.5 hct 31.9 35 - 55 mcv 79.1 75 - 100 mch 24.6 25 - 35 mchc 31.1 31 - 38 platlet 158 100 - 400 P-Comprehensive Metabolic Pa amador (CMP) Reviewed date:04/29/2024 09:47:53 AM Interpretation:K+ 5.8, bun 27, creat 1.40, gfr 37 Performing Lab: Notes/Report: Test performed by [facility] [address] [place] [address] , [address], [place] [address] Tristian Amado MD, Event Planner CLIA: [id number] Sodium 145 135-145 mmol/L Potassium 5.8 3.5-5.3 mmol/L Chloride 108 97-108 mmol/L CO2 28 22-32 mmol/L Glucose 82 65-99 mg/dL BUN 27 8-23 mg/dL Creatinine 1.40 0.50-1.00 mg/dL Calcium 9.1 8.6-10.4 mg/dL eGFR by Creatinine 37 >59 mL/min/1.73m2 Protein 6.3 6.0-8.3 g/dL Albumin 3.7 3.5-5.3 g/dL Alkaline Phosphatase 94 35-121 IU/L ALT (SGPT) 13 <5-47 IU/L AST (SGOT) 26 <5-40 IU/L Bilirubin, Total 0.4 <0.2-1.2 mg/dL A/G Ratio 1.4 1.1-2.5 P-Iron Reviewed date:04/29/2024 09:47:53 AM Interpretation:21 Performing Lab: Notes/Report: Test performed by [email or web address] [address] , [address], [place] [address] Tristian Amado MD, Event Planner CLIA: [id number] Iron 21 37-145 ug/dL P-Magnesium Reviewed date:04/29/2024 09:47:53 AM Interpretation:Normal Performing Lab: Notes/Report: Test performed by [email or web address] [address] , [address], [place] [address] Tristian Amado MD, Event Planner CLIA: [id number] Magnesium 1.8 1.6-2.4 mg/dL H-BMP Reviewed date:02/25/2024 10:57:35 AM Interpretation: Performing Lab: Notes/Report: NA 137 136-145 mmol/L K 4.6 3.5-5.1 mmoL/L CL 95 98-107 mmol/L CO2 38 22.0-30.0 mmol/L GAP 8.6 5-15 mEq/L BUN 44 7-17 mg/dl Delta: 34 on 02/23/24 CREATT 1.60 0.52-1.04 mg/dl Delta: 1.20 on 02/23/24 CRCLE 39 50-200 mL/min GFRAA 37 >60 ML/MIN Delta: 52 on 02/23/24 EGFR 31 >60 ml/min GLU 93 74-100 mg/dl CA 9.4 8.4-10.2 mg/dl H-CBC Reviewed date:02/25/2024 10:57:35 AM Interpretation: Performing Lab: Notes/Report: WBC 5.9 4.8-10.8 K/mm3 Delta: 8.7 on 02/23/24 RBC 4.16 4.20-5.40 M/mm3 HGB 11.4 12.2-16.2 g/dL HCT 32.9 37.0-47.0 % MCV 79.1 81-99 fl MCH 27.5 27.0-31.2 pg MCHC 34.7 31.8-35.4 g/dL RDW 18.7 11.5-17.5 % PLT 150 142-424 K/mm3 MPV 9.6 7.4-10.4 fl NE% 64.2 37.0-80.0 % LY% 21.7 10-50 % MO% 9.3 1.7-9.3 % EO% 3.9 0.1-12.0 % BA% 0.9 0.1-2.0 % NE# 3.8 1.8-7.8 K/mm3 LY# 1.3 0.7-4.5 K/mm3 MO# 0.5 0.1-1.0 K/mm3 EO# 0.2 0.0-0.4 K/mm3 BA# 0.1 0-0.2 K/mm3 H-Sputum Culture with Ameena gilliland Reviewed date:02/26/2024 09:50:36 AM Interpretation: Performing Lab: Notes/Report: Comment: Induce w/3ml NS neb tx if necessary GS Gram Stain: GS 10 - 25 Epithelial Cells / LPF GS No Organisms Seen CUSPU ORGANISM 1: Yeast CUSPU Quantify Moderate CUSPU YEAST ISOLATED. PLEA SE CONTACT LAB IF FURTHER YEAST ID CUSPU REQUIRED. LAB WILL H OLD YEAST FOR 5 DAYS. H-BMP Reviewed date:02/24/2024 09:26:24 AM Interpretation: Performing Lab: Notes/Report: NA 139 136-145 mmol/L K 4.4 3.5-5.1 mmoL/L CL 94 98-107 mmol/L CO2 36 22.0-30.0 mmol/L GAP 13.4 5-15 mEq/L BUN 34 7-17 mg/dl Delta: 25 on 02/21/24-0820 CREATT 1.20 0.52-1.04 mg/dl CRCLE 51 50-200 mL/min GFRAA 52 >60 ML/MIN EGFR 43 >60 ml/min GLU 112 74-100 mg/dl CA 9.2 8.4-10.2 mg/dl H-CBC Reviewed date:02/24/2024 09:26:24 AM Interpretation: Performing Lab: Notes/Report: WBC 8.7 4.8-10.8 K/mm3 RBC 5.03 4.20-5.40 M/mm3 HGB 12.0 12.2-16.2 g/dL HCT 39.0 37.0-47.0 % MCV 77.4 81-99 fl MCH 23.9 27.0-31.2 pg MCHC 30.9 31.8-35.4 g/dL RDW 18.2 11.5-17.5 % PLT 150 142-424 K/mm3 MPV 9.9 7.4-10.4 fl NE% 69.3 37.0-80.0 % LY% 18.2 10-50 % MO% 9.6 1.7-9.3 % EO% 2.4 0.1-12.0 % BA% 0.5 0.1-2.0 % NE# 6.0 1.8-7.8 K/mm3 LY# 1.6 0.7-4.5 K/mm3 MO# 0.8 0.1-1.0 K/mm3 EO# 0.2 0.0-0.4 K/mm3 BA# 0.1 0-0.2 K/mm3 H-CBC Reviewed date:07/14/2024 10:33:49 AM Interpretation: Performing Lab: Notes/Report: WBC 11.9 4.8-10.8 K/mm3 Delta: 7.7 on 07/12/24-0615 RBC 4.99 4.20-5.40 M/mm3 HGB 11.7 12.2-16.2 g/dL HCT 37.9 37.0-47.0 % MCV 75.9 81-99 fl MCH 23.5 27.0-31.2 pg MCHC 30.9 31.8-35.4 g/dL RDW 18.4 11.5-17.5 % PLT 184 142-424 K/mm3 MPV 7.8 7.4-10.4 fl NE% 90.7 37.0-80.0 % LY% 3.8 10-50 % MO% 5.1 1.7-9.3 % EO% 0.1 0.1-12.0 % BA% 0.3 0.1-2.0 % NE# 10.8 1.8-7.8 K/mm3 LY# 0.5 0.7-4.5 K/mm3 MO# 0.6 0.1-1.0 K/mm3 EO# 0.0 0.0-0.4 K/mm3 BA# 0.0 0-0.2 K/mm3 H-CBC Reviewed date:08/10/2024 03:13:24 PM Interpretation: Performing Lab: Notes/Report: WBC 10.9 4.8-10.8 K/mm3 RBC 4.00 4.20-5.40 M/mm3 HGB 10.1 12.2-16.2 g/dL HCT 31.9 37.0-47.0 % MCV 79.6 81-99 fl MCH 25.2 27.0-31.2 pg MCHC 31.7 31.8-35.4 g/dL RDW 21.1 11.5-17.5 % PLT 187 142-424 K/mm3 MPV 8.0 7.4-10.4 fl NE% 79.6 37.0-80.0 % LY% 12.8 10-50 % MO% 7.0 1.7-9.3 % EO% 0.2 0.1-12.0 % BA% 0.3 0.1-2.0 % NE# 8.7 1.8-7.8 K/mm3 LY# 1.4 0.7-4.5 K/mm3 MO# 0.8 0.1-1.0 K/mm3 EO# 0.0 0.0-0.4 K/mm3 BA# 0.0 0-0.2 K/mm3 H-BMP Reviewed date:08/10/2024 03:13:24 PM Interpretation: Performing Lab: Notes/Report: NA 137 136-145 mmol/L K 4.4 3.5-5.1 mmoL/L CL 105 98-107 mmol/L CO2 34 22.0-30.0 mmol/L GAP 2.4 5-15 mEq/L BUN 29 7-17 mg/dl CREATT 0.90 0.52-1.04 mg/dl CRCLE 63 50-200 mL/min GFRAA 72 >60 ML/MIN EGFR 60 >60 ml/min GLU 90 74-100 mg/dl Delta: 129 on 08/09/24 CA 8.2 8.4-10.2 mg/dl H-Magnesium Reviewed date:08/10/2024 03:13:24 PM Interpretation: Performing Lab: Notes/Report: MG 2.0 1.6-2.3 mg/dl Delta: 0.8 on 08/08/24-0700 H-CBC Reviewed date:08/11/2024 10:07:56 AM Interpretation: Performing Lab: Notes/Report: WBC 6.7 4.8-10.8 K/mm3 Delta: 10.9 o n 08/10/24 RBC 4.12 4.20-5.40 M/mm3 HGB 10.1 12.2-16.2 g/dL HCT 32.8 37.0-47.0 % MCV 79.8 81-99 fl MCH 24.6 27.0-31.2 pg MCHC 30.8 31.8-35.4 g/dL RDW 20.9 11.5-17.5 % PLT 141 142-424 K/mm3 MPV 8.8 7.4-10.4 fl NE% 74.7 37.0-80.0 % LY% 15.7 10-50 % MO% 7.7 1.7-9.3 % EO% 1.0 0.1-12.0 % BA% 0.9 0.1-2.0 % NE# 5.0 1.8-7.8 K/mm3 LY# 1.1 0.7-4.5 K/mm3 MO# 0.5 0.1-1.0 K/mm3 EO# 0.1 0.0-0.4 K/mm3 BA# 0.1 0-0.2 K/mm3 H-BMP Reviewed date:08/11/2024 11:35:04 AM Interpretation: Performing Lab: Notes/Report: NA 137 136-145 mmol/L K 4.5 3.5-5.1 mmoL/L CL 104 98-107 mmol/L CO2 34 22.0-30.0 mmol/L GAP 3.5 5-15 mEq/L BUN 25 7-17 mg/dl CREATT 0.80 0.52-1.04 mg/dl CRCLE 62 50-200 mL/min GFRAA 82 >60 ML/MIN EGFR 68 >60 ml/min GLU 95 74-100 mg/dl CA 8.6 8.4-10.2 mg/dl H-Vancomycin, Trough Reviewed date:08/11/2024 10:07:57 AM Interpretation: Performing Lab: Notes/Report: VANCT 14.2 5.0-10.0 ug/mL H-CBC Reviewed date:08/13/2024 09:36:50 AM Interpretation: Performing Lab: Notes/Report: WBC 9.3 4.8-10.8 K/mm3 Delta: 6.7 on 08/11/24 RBC 4.36 4.20-5.40 M/mm3 HGB 10.5 12.2-16.2 g/dL HCT 35.1 37.0-47.0 % MCV 80.5 81-99 fl MCH 24.1 27.0-31.2 pg MCHC 29.9 31.8-35.4 g/dL RDW 21.2 11.5-17.5 % PLT 178 142-424 K/mm3 Delta: 141 on 08/11/24 MPV 10.2 7.4-10.4 fl NE% 72.5 37.0-80.0 % LY% 12.8 10-50 % MO% 7.6 1.7-9.3 % EO% 0.8 0.1-12.0 % BA% 1.0 0.1-2.0 % NE# 6.8 1.8-7.8 K/mm3 LY# 1.2 0.7-4.5 K/mm3 MO# 0.7 0.1-1.0 K/mm3 EO# 0.1 0.0-0.4 K/mm3 BA# 0.1 0-0.2 K/mm3 H-BMP Reviewed date:08/13/2024 09:36:50 AM Interpretation: Performing Lab: Notes/Report: NA 137 136-145 mmol/L K 3.7 3.5-5.1 mmoL/L CL 98 98-107 mmol/L CO2 39 22.0-30.0 mmol/L GAP 3.7 5-15 mEq/L BUN 19 7-17 mg/dl CREATT 0.90 0.52-1.04 mg/dl CRCLE 60 50-200 mL/min GFRAA 72 >60 ML/MIN EGFR 60 >60 ml/min GLU 108 74-100 mg/dl CA 9.1 8.4-10.2 mg/dl CXR Reviewed date:12/24/2024 08:24:52 AM Interpretation: Performing Lab: Notes/Report: H-COVIDPANEL Reviewed date:07/09/2024 12:34:39 PM Interpretation: Performing Lab: Notes/Report: No Is this the 1st COVID test for the patient? No Does the patient have COVID symptoms? Yes Is the patient employed in healthcare? No Is patient an [facility] employee? N Is patient currently hospitalized? Yes Is patient currently in ICU? No Date of Symptom onset Is patient a resident in a congregate care setting? No ADENOQIA Not Detected NotDetected CORONAHKU1 Not Detected NotDetected [id number] Not Detected NotDetected [id number] Not Detected NotDetected DIRLHJM52 Not Detected NotDetected METAPNEUMO Not Detected NotDetected RHINOENTER Not Detected NotDetected INFLUAPCR Not Detected NotDetected FLUAH1 Not Detected NotDetected [id number] Not Detected NotDetected INFLUAH3 Not Detected NotDetected INFLUB Not Detected NotDetected PARAINFLU1 Not Detected NotDetected PARAINFLU2 Not Detected NotDetected PARAINFLU3 Not Detected NotDetected PARAINFLU 4 Not Detected NotDetected RSVPCR Not Detected NotDetected COVIDHMH Not Detected NotDetected Effective 04/18/21, Positive covid results will no longer be called to the ordering physician. Infection control and the physician?s office will continue to report positive covid results to the local Health Department as required. This assay is for in vitro diagnostic use under FDA Emergency Use Authorization only. Negative results do not preclude infection with SARS CoV 2 virus and should not be the sole basis of a patient treatment/management or public health decision. Follow up testing should be performed according to the current CDC recommendations. BORDPERT Not Detected NotDetected CHLAMYDPNEUM Not Detected NotDetected MYCOPLASM Not Detected NotDetected H-COVIDPANEL Reviewed date:07/08/2024 02:44:12 PM Interpretation: Performing Lab: Notes/Report: Cancel Comments NEEDS REORDER NOT SENT H-BMP Reviewed date:07/13/2024 08:42:30 AM Interpretation: Performing Lab: Notes/Report: NA 139 136-145 mmol/L K 3.0 3.5-5.1 mmoL/L CRITICAL RESULT Results called and read back/verified to: Sarah DUEÑAS on 07/12/24 at 0729 By Val Herrera CL 85 98-107 mmol/L CO2 42 22.0-30.0 mmol/L GAP 15.0 5-15 mEq/L BUN 36 7-17 mg/dl CREATT 0.90 0.52-1.04 mg/dl CRCLE 64 50-200 mL/min GFRAA 72 >60 ML/MIN EGFR 60 >60 ml/min GLU 347 74-100 mg/dl CA 8.2 8.4-10.2 mg/dl H-DIFF Reviewed date:07/13/2024 08:42:29 AM Interpretation: Performing Lab: Notes/Report: MDIFF MANUAL DIFFERENTIAL MANUAL DIFF TCC 100 NEUT%M 90 42-76 % LYMPH%M 7 10-50 % MONO%M 3 2-9 % PLTE Normal RM Normal H-CBC Reviewed date:07/13/2024 08:42:29 AM Interpretation: Performing Lab: Notes/Report: WBC 7.7 4.8-10.8 K/mm3 RBC 4.67 4.20-5.40 M/mm3 HGB 11.2 12.2-16.2 g/dL HCT 36.0 37.0-47.0 % MCV 77.1 81-99 fl MCH 24.0 27.0-31.2 pg MCHC 31.1 31.8-35.4 g/dL RDW 18.7 11.5-17.5 % PLT 184 142-424 K/mm3 MPV 8.2 7.4-10.4 fl NE% 88.4 37.0-80.0 % LY% 4.7 10-50 % MO% 6.3 1.7-9.3 % EO% 0.2 0.1-12.0 % BA% 0.4 0.1-2.0 % NE# 6.8 1.8-7.8 K/mm3 LY# 0.4 0.7-4.5 K/mm3 MO# 0.5 0.1-1.0 K/mm3 EO# 0.0 0.0-0.4 K/mm3 BA# 0.0 0-0.2 K/mm3 H-TSH Reviewed date:06/30/2024 11:34:11 AM Interpretation: Performing Lab: Notes/Report: TSH 0.78 0.465-4.68 uIU/mL H-CBC Reviewed date:06/30/2024 11:34:11 AM Interpretation: Performing Lab: Notes/Report: WBC 6.0 4.8-10.8 K/mm3 RBC 3.95 4.20-5.40 M/mm3 HGB 9.5 12.2-16.2 g/dL HCT 30.6 37.0-47.0 % MCV 77.5 81-99 fl MCH 24.2 27.0-31.2 pg MCHC 31.2 31.8-35.4 g/dL RDW 18.9 11.5-17.5 % PLT 180 142-424 K/mm3 MPV 9.0 7.4-10.4 fl NE% 62.5 37.0-80.0 % LY% 23.8 10-50 % MO% 10.9 1.7-9.3 % EO% 1.8 0.1-12.0 % BA% 1.0 0.1-2.0 % NE# 3.8 1.8-7.8 K/mm3 LY# 1.4 0.7-4.5 K/mm3 MO# 0.7 0.1-1.0 K/mm3 EO# 0.1 0.0-0.4 K/mm3 BA# 0.1 0-0.2 K/mm3 H-CMP Reviewed date:06/30/2024 11:34:12 AM Interpretation: Performing Lab: Notes/Report: NA 140 136-145 mmol/L K 4.4 3.5-5.1 mmoL/L CL 99 98-107 mmol/L CO2 40 22.0-30.0 mmol/L GAP 5.4 5-15 mEq/L BUN 27 7-17 mg/dl CREATT 1.20 0.52-1.04 mg/dl CRCLE 51 50-200 mL/min GFRAA 52 >60 ML/MIN EGFR 43 >60 ml/min GLU 130 74-100 mg/dl CA 8.3 8.4-10.2 mg/dl BILIT 0.5 0.2-1.3 mg/dl AST 28 14-36 U/L ALT 15 12-78 U/L TP 6.4 6.3-8.2 g/dl ALB 3.4 3.5-5.0 g/dl GLOB 3.0 1.3-3.2 g/dL AGRATIO 1.1 1.1-1.8 ALP 67 38-126 U/L Medications Medication SIG (Take, Route, Frequency, Duration) Notes Start Date End Date Status tiZANidine HCl 4 MG 1 tablet at bedtime as needed Orally at HS prn Active Oxygen - per nasal cannula as directed 3 LPM Active Eye Vitamins - as directed Orally Active Zithromax Z-Paul 250 MG as directed Orall y once daily; Duration: 5 days 12/25/2024 Active CPAP machine and supplies - as directed as directed at night and whenever sleepng Active Escitalopram Oxalate 20 MG Take 1 tablet by mouth once daily Active Fluticasone-Salmeterol 250-50 MCG/ACT 1 puff Inhalation Twice a day Active Anusol-HC 25 MG 1 suppository Rectal Twice a day 12/21/2024 Active Glucosamine Sulfate 1000 MG as directed Orally qd Active Vitamin B12 1000 MCG 1 tablet Orally Once a day; Duration: 90 days Active Acetaminophen 500 MG 2 tablet as needed Orally every 6h prn Active Esomeprazole Magnesium 40 MG 1 cap(s) orally once a day; Duration: 90 days Active Dapagliflozin Propanediol 10 MG 1 tablet Orally Once a day; Duration: 90 days Active Metoprolol Succinate 50 MG as directed Orally Once a day; Duration: 90 days Active Furosemide 40 MG 1 tablet Orally Once a day Active Hospital Bed - as directed 12/28/2024 Ac tive metFORMIN HCl 500 MG TAKE 1 TABLET BY MOUTH TWICE DAILY WITH MEALS; Duration: 90 Active Metoprolol Succinate ER 50 MG Take 1 tablet by mouth once daily; Duration: 90 Active Pregabalin 75 MG 1 cap(s) orally 2 times a day; Duration: 7 days 11/13/2024 Active Montelukast Sodium 10 MG 1 tablet Orally Once a day; Duration: 90 days Active Nebulizer Air Tube/Plugs - as directed 12/03/2024 Active o2 with portable conserving device 1 use as directed 06/04/2024 Activ e Nebulizer - as directed 12/03/2024 Activ e Escitalopram Oxalate 20 MG 1 tablet Orally Once a day; Duration: 90 days Active Spironolactone 50 MG Take 1 tablet by mouth once daily; Duration: 90 Active Wheelchair - as directed As needed Diagnosis: E11.42, M15.0, M16.11, M21.969, I51.89, J44.9, M21.962, R26.89, G62.9 08/04/2024 Active Irbesartan 300 MG Take 1 tablet by mouth once daily for 90 days; Duration: 90 Active Multivitamin Adults - as directed Orally qd Active oxyBUTYnin Chloride ER 10 MG 2 tab(s) Orally Once a day; Duration: 90 days Active Fluticasone Propionate 50 MCG/DOSE 1 spray in each nostril Nasally Twice a day Active Simvastatin 20 MG TAKE 1 TABLET BY MOUTH ONCE DAILY AT BEDTIME FOR 90 DAYS; Duration: 90 Active Regular Diet - as directed RICARDO; CCHO Act linda Caltrate 600+D3 600-800 MG-UNIT 1 tablet with a meal Orally Once a day Active Immunizations Vaccine Route Administration Date Status Comme nts XXXDexamethasone IM Intramuscular 02/01/2006 Administered xFluzone High Dose-private (65yr&older) IM Intramuscular 05/13/2013 Administered xFluzone High Dose-private (65yr&older) Unknown 05/14/2019 Administered Tetanus Tdap-Adacel (over 7yrs) IM Intramuscular 10/29/2013 Administered Shingrix IM Intramuscular 01/13/2019 Administered Shingrix IM Intramuscular 03/18/2019 Administered Prevnar (PCV13) IM Intramuscular 11/01/2014 Administered PNEUMOVAX 23 VACCINE IM Intramuscular 06/12/2016 Administe red Fluzone PF Quad (6-35 months) Unknown 05/18/2020 Administered Fluzone High Dose (65yr and older) IM Intramuscular 05/02/2012 Administered Fluzone High Dose (65yr and older) IM Intramuscular 05/03/2015 Administered Fluzone High Dose (65yr and older) IM Intramuscular 06/12/2016 Administered Fluzone High Dose (65yr and older) IM Intramuscular 05/21/2018 Administered Fluzone High Dose (65yr and older) Unknown 05/19/2021 Administered Fluzone High Dose (65yr and older) Unknown 05/17/2023 Administered COVID 19 Moderna Unknown 10/03/2020 Administered COVID 19 Moderna Unknown 06/07/2021 Administered COVID 19 Moderna Unknown 12/05/2021 Administered Problems Problem Type SNOMED Code ICD Code Onset Dates Problem Status W/U Status Risk Notes Problem Hyperlipidaemia (68496827) Hyperlipemia (272.4) Active confirmed Problem Essential hypertension (08433302) Essential (primary) hypertension (I10) Active confirmed Problem Tear film insufficiency (87562304) Dry eyes, bilateral (H04.123) Active confirmed Problem History of malignant melanoma of the skin (584647072881) History of melanoma (Z85.820) Active confirmed Problem Essential hypertension (05257748) Essential hypertension (I10) Active confirmed Problem Hypertriglyceridemia (216789202) Hypertriglyceridemia (E78.1) Active confirmed Problem Long-term current us e 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 (746866715) shelter current use 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 (Z79.01) Active confirmed Problem Obstructive sleep apnea (41463374) Obstructive sleep apnea (G47.33) Active confirmed Problem Hypokalemia (51979584) History of hypokalemia (Z86.39) Active confirmed Problem Mixed anxiety and depressive disorder (114215865) Depression with anxiety (F41.8) Active confirmed Problem Acute exacerbation o f chronic obstructive airways disease (353362934) COPD exacerbation (J44.1) Active confirmed Problem Mixed hyperlipidemia (336644985) Mixed hyperlipidemia (E78.2) Active confirmed Problem Hypomagnesemia (616461673) Hypomagnesemia (E83.42) Active confirmed Problem Allergic rhinitis (78235739) Allergic rhinitis, unspecified (J30.9) Active confirmed Problem Chronic respiratory failure (21321017) Chronic respiratory failure, unspecified whether with hypoxia or hypercapnia (J96.10) Active confirmed Problem Syqkv-pp-rwchgnu hypoxemic respiratory failure (00141869036177687) Acute and chronic respiratory failure with hypoxia (J96.21) Active confirmed Problem Abnormal findings on diagnostic imaging of breast (790299661) Other abnormal and inconclusive findings on diagnostic imaging of breast (R92.8) Active confirmed Problem History of polyp of colon (situation) (661585804) History of colon polyps (Z86.010) Active confirmed Problem Chronic pain (60039357) Other chronic pain (G89.29) Active confirmed Problem Pulmonary emphysema (77717322) Pulmonary emphysema, unspecified emphysema type (J43.9) Active confirmed Problem Primary osteoarthritis (987881081) Primary osteoarthritis involving multiple joints (M15.0) Active confirmed Problem Gastroesophageal reflux disease (disorder) (863457887) Chronic GERD (K21.9) Active confirmed Problem COPD - Chronic obstructive pulmonary disease (90518417) Chronic obstructive pulmonary disease, unspecified COPD type (J44.9) Active confirmed Problem Gastroesophageal reflux disease (256886147) Gastroesophageal reflux disease, esophagitis presence not specified (K21.9) Active confirmed Problem Neuropathy (962589518) Neuropathy (G62.9) Active confirmed Problem Allergic rhinitis (95441804) Allergic rhinitis (J30.9) Active confirmed Problem Lumbar spinal stenosis (14771116) Spinal stenosis, lumbar (M48.06) Active confirmed Problem Osteoporosis (78600749) Osteoporosis (M81.0) Active confirmed Problem Cardiac arrhythmia (869945443) Atrial dysrhythmia (I49.8) Active confirmed Problem Sleep apnea (55998809) Sleep apnea, unspecified type (G47.30) Active confirmed Problem Hyperlipidaemia (62889635) Hyperlipidemia, unspecified hyperlipidemia type (E78.5) Active confirmed Problem Polyneuropathy due t o type 2 diabetes mellitus (236320408) 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) Active confirmed Problem Mqrla-df-nvajwxs hypoxemic respiratory failure (55013094258956910) Acute on chronic respiratory failure with hypoxia (J96.21) Active confirmed Problem Atrial ectopic (974840552) Atrial ectopic (I49.1) Active confirmed Problem Low back pain (066610771) Chronic right-sided low back pain without sciatica (M54.5) Active confirmed Problem Type II diabetes mellitus without complication (901189341) Type 2 diabetes mellitus without complication, without long-term current use of insulin (E11.9) Active confirmed Problem Cramp in lower leg associated with rest (445153247) Leg cramps, sleep related (G47.62) Active confirmed Problem 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, choroid, 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 Problem Hypertensive urgency (349616887) Hypertensive urgency (I16.0) Active confirmed Problem Urge incontinence of urine (21543847) Urge incontinence of urine (N39.41) Active confirmed Problem Sleep apnea (84388823) Sleep apnea in adult (G47.30) Active confirmed Problem Arthritis of right hip (8706296882921486) Arthritis of right hip (M16.11) Active confirmed Problem Deformity of foot (finding) (251557404) Deformity of foot, unspecified laterality (M21.969) Active confirmed Problem Type II diabetes mellitus without complication (374019076) Type 2 diabetes mellitus without complication, unspecified whether dedicated intermodal truck driver insulin use (E11.9) Active confirmed Problem Diastolic dysfunctio n (2070293) Diastolic dysfunction (I51.89) Active confirmed Problem Osteomyelitis (93841123) Osteomyelitis of toe of right foot (M86.9) Active confirmed Problem Gastroesophageal reflux disease (677919157) Gastroesophageal reflux disease, unspecified whether esophagitis present (K21.9) Active confirmed Problem Chronic kidney disease stage 3B (disorder) (122347602) Stage 3b chronic kidney disease (CKD) (N18.32) Active confirmed Problem Chronic kidney disease stage 3A (disorder) (900488821) Stage 3a chronic kidney disease (CKD) (N18.31) Active confirmed Problem Anemia (887570121) Acute anemia (D64.9) Active confirmed Problem Abnormal gait (66602999) Inability to bear weight (R26.89) Active confirmed Problem Left ankle joint deformity (M21.962) Active confirmed Vital Signs Heart Rate 54 /min 09/22/2024 Respiratory Rate 18 /min 08/25/2024 Blood pressure diastolic 74 mm Hg 12/21/2024 Height 65.50 in 12/21/2024 Blood pressure systolic 132 mm Hg 12/21/2024 Weight 000 lbs 12/21/2024 BMI 36.70 kg/m2 06/04/2024 Encounters Encounter Location Date Provider Diagnosis [address] [place] [id number] 03/03/2024 Yvette Harris Acute pneumonia J18. 9 ; Acute respiratory failure with hypoxia J96.01 ; Enlarged lymph node in neck R59.0 ; Sleep apnea in adult G47.30 ; Type 2 diabetes mellitus without complication, unspecified whether dedicated intermodal truck driver insulin use E11.9 ; Chronic GERD K21.9 ; Hyperlipidemia, unspecified hyperlipidemia type E78.5 ; RICHIE (acute kidney injury) N17.9 ; Elevated brain natriuretic peptide (BNP) level R79.89 ; Weakness R53.1 ; Essential hypertension I10 ; Depression with anxiety F41.8 ; Primary osteoarthritis involving multiple joints M15.0 ; Spinal stenosis, lumbar M48.06 ; Allergic rhinitis, unspecified J30.9 ; Urge incontinence of urine N39.41 and Diabetic polyneuropathy associated with type [address] [facility] [facility] [address] [place], [place] [id number] 03/20/2024 Allan Festus Essential hypertensi on I10 ; Hypomagnesemia E83.42 ; Anemia, unspecified type D64.9 ; Renal insufficiency N28.9 and Obstructive sleep apnea G47.[address] [facility] [facility] [address] [place], [place] [id number] 04/24/2024 Allan Festus Peripheral edema R60 .0 ; Stage 3b chronic kidney disease (CKD) N18.32 ; Anemia, unspecified type D64.9 ; Hypomagnesemia E83.42 and SOB (shortness of breath) R06.02 [facility] [place] [facility] [address] [place] [id number] 05/04/2024 Allan Festus Hypokalemia E87.6 [facility] [address] [place] [facility] [address] [place] [id number] 06/04/2024 Allan Festus Pain in left ankle a nd joints of left foot M25.572 ; Diastolic dysfunction I51.89 ; Hypoxia R09.02 and Chronic obstructive pulmonary disease, unspecified COPD type J44.[address] [place] [id number] 07/21/2024 Yvette Harris Acute on chronic respiratory failure with hypoxia J96.21 ; Acute left ankle pain M25.572 ; Left ankle joint deformity M21.962 ; Left ankle instability M25.372 ; Hypoxia R09.02 ; Generalized weakness R53.1 ; Type 2 diabetes mellitus without complication, unspecified whether dedicated intermodal truck driver insulin use E11.9 ; Essential (primary) hypertension I10 ; Neuropathy G62.9 ; Chronic obstructive pulmonary disease, unspecified COPD type J44.9 ; Depression with anxiety F41.8 ; Gastroesophageal reflux disease, esophagitis presence not specified K21.9 ; Primary osteoarthritis involving multiple joints M15.0 ; Obstructive sleep apnea G47.33 ; Hypomagnesemia E83.42 ; Renal insufficiency N28.9 ; Urge incontinence of urine N39.41 ; Hyperlipidemia, unspecified hyperlipidemia type E78.5 ; Diabetic polyneuropathy associated with type 2 diabetes mellitus E11.42 ; Osteoporosis M81.0 ; Peripheral edema R60.9 ; Deformity of foot, unspecified laterality M21.969 ; History of melanoma Z85.820 ; Allergic rhinitis J30.9 ; Atrial dysrhythmia I49.8 ; Atrial ectopic I49.1 ; Dry eyes, bilateral H04.123 ; Debility R53.81 and Leg cramps, sleep related G47.62 [address] [place] [id number] 08/25/2024 Yvette Harris Left ankle joint deformity M21.962 ; Acute anemia D64.9 ; Neuropathy G62.9 ; Hyperlipidemia, unspecified hyperlipidemia type E78.5 ; Hypomagnesemia E83.42 ; Acute on chronic respiratory failure with hypoxia J96.21 ; Acute left ankle pain M25.572 ; Left ankle instability M25.372 ; Hypoxia R09.02 ; Generalized weakness R53.1 ; Type 2 diabetes mellitus without complication, unspecified whether fci insulin use E11.9 ; Essential (primary) hypertension I10 ; Chronic obstructive pulmonary disease, unspecified COPD type J44.9 ; Depression with anxiety F41.8 ; Gastroesophageal reflux disease, esophagitis presence not specified K21.9 ; Primary osteoarthritis involving multiple joints M15.0 ; Obstructive sleep apnea G47.33 ; Renal insufficiency N28.9 ; Urge incontinence of urine N39.41 ; Diabetic polyneuropathy associated with type 2 diabetes mellitus E11.42 ; Osteoporosis M81.0 ; Peripheral edema R60.9 ; Deformity of foot, unspecified laterality M21.969 ; History of melanoma Z85.820 ; Allergic rhinitis J30.9 ; Atrial dysrhythmia I49.8 ; Dry eyes, bilateral H04.123 ; Debility R53.81 and Leg cramps, sleep related G47.[address] [facility] [address] [place] [address] [id number] 09/22/2024 Allan Festus Essential hypertensi on I10 ; Chronic obstructive pulmonary disease, unspecified COPD type J44.9 ; Dry eyes, bilateral H04.123 ; Depression with anxiety F41.8 ; Gastroesophageal reflux disease, esophagitis presence not specified K21.9 ; Hypomagnesemia E83.42 ; Debility R53.81 ; Allergic rhinitis J30.9 ; Osteoporosis M81.0 and Obstructive sleep apnea G47.33 [facility] [address] [id number] 12/21/2024 Allan Festus Type 2 diabetes rere itus without complication, without long-term current use of insulin E11.9 ; Chronic respiratory failure, unspecified whether with hypoxia or hypercapnia J96.10 ; Other hemorrhoids K64.8 ; BRBPR (bright red blood per rectum) K62.5 ; Hypomagnesemia E83.42 ; Stage 3b chronic kidney disease (CKD) N18.32 and Chronic obstructive pulmonary disease, unspecified COPD type J44.9 [facility] [address] [place], [place] [id number] 02/25/2024 Allan Festus Diabetic polyneuropa thy associated with type 2 diabetes mellitus E11.42 [facility] [address] [place], [place] [id number] 03/04/2024 Yanci Crowdy [facility] [address] [place] [id number] 03/05/2024 Allan Festus [facility] [address] [place] [id number] 03/09/2024 Allan Festus [facility] [address] [place] [id number] 03/12/2024 Allan Festus [facility] [address] [place] [id number] 03/13/2024 Allan Festus [facility] [address] [place] [id number] 03/23/2024 Allan Festus [facility] [address] [place] [id number] 04/08/2024 Allan Festus [facility] [address] [place] [id number] 04/29/2024 Allan Festus [facility] [address] [place] [id number] 05/06/2024 Allan Festus [facility] [address] [place], [place] [id number] 05/27/2024 Allan Festus Essential hypertensi on I10 [facility] [address] [place] [id number] 06/04/2024 Allan Festus [facility] [address] [place] [id number] 06/18/2024 Allan Festus [facility] [address] [place] [id number] 08/04/2024 Allan Festus [facility] [address] [place] [id number] 08/10/2024 Allan Festus [facility] [address] [place] [id number] 08/21/2024 Allan Festus [facility] [address] [place], [place] [id number] 09/07/2024 Allan Festus Diabetic polyneuropa thy associated with type 2 diabetes mellitus E11.42 [facility] [address] [place], [place] [id number] 09/07/2024 Allan Festus Type 2 diabetes rere itus without complication, unspecified whether dedicated intermodal truck driver insulin use E11.9 ; Peripheral edema R60.9 and Debility R53.81 [facility] [address] [place] [id number] 09/08/2024 Allan Festus Type 2 diabetes rere itus without complication, unspecified whether dedicated intermodal truck driver insulin use E11.9 [facility] [address] [place] [id number] 09/22/2024 Allan Festus [facility] [address] [place] [id number] 09/24/2024 Allan Festus Allergic rhinitis J3 0.9 [facility] [address] [place] [id number] 11/04/2024 Allan Festus [facility] [address] [place] [id number] 11/04/2024 Allan Festus Gastroesophageal ref lux disease, esophagitis presence not specified K21.9 and Diabetic polyneuropathy associated with type 2 diabetes mellitus E11.42 [facility] [address] [place] [id number] 11/05/2024 Allan Festus [facility] [address] [place] [id number] 11/12/2024 Allan Festus [facility] [address] [place] [id number] 11/13/2024 Ata Vences Essential hypertensi on I10 and Diabetic polyneuropathy associated with type 2 diabetes mellitus E11.42 [facility] [address] [place] [id number] 11/27/2024 Allan Festus [facility] [address] [place] [id number] 12/03/2024 Allan Festus Chronic obstructive pulmonary disease, unspecified COPD type J44.9 [facility] [address] [place] [id number] 12/18/2024 Allan Festus [facility] [address] [place] [id number] 12/21/2024 Allan Festus Urge incontinence of urine N39.41 and Hyperlipidemia, unspecified hyperlipidemia type E78.5 [facility] [address] [place] [id number] 12/22/2024 Allan Festus [facility] [address] [place] [id number] 12/23/2024 Allan Festus [facility] [address] [place] [id number] 12/24/2024 Allan Festus [facility] [address] [place] [id number] 12/25/2024 Allan Festus [facility] [address] [place] [id number] 12/28/2024 Allan Festus [facility] [address] [place] [id number] 12/30/2024 Allan Festus [facility] [address] [place] [id number] 12/30/2024 Allan Festus [facility] [address] [place] [id number] 01/04/2025 Allan Festus [facility] [address] [place] [id number] 02/12/2025 Allan Adamson Assessments Encounter Date Diagnosis (ICD Code) Assessment Notes Treatment Notes Treatment Clinical Notes Section Notes 02/25/2024 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) 03/03/2024 Acute respiratory failure with hypoxia (ICD-10 - J96.01) 03/03/2024 Acute pneumonia (ICD-10 - J18.9) 03/20/2024 Essential hypertension (ICD-10 - I10) 03/20/2024 Hypomagnesemia (ICD-10 - E83.42) 05/04/2024 Hypokalemia (ICD-10 - E87.6) 05/27/2024 Essential hypertension (ICD-10 - I10) 06/04/2024 Pain in left ankle and joints of left foot (ICD-10 - M25.572) 06/04/2024 Diastolic dysfunction (ICD-10 - I51.89) 08/25/2024 Left ankle joint deformity (ICD-10 - M21.962) 09/07/2024 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) 09/07/2024 Type 2 diabetes mellitus without complication, unspecified whether dedicated intermodal truck driver insulin use (ICD-10 - E11.9) 09/08/2024 Type 2 diabetes mellitus without complication, unspecified whether fci insulin use (ICD-10 - E11.9) 09/22/2024 Essential hypertension (ICD-10 - I10) 09/22/2024 Chronic obstructive pulmonary disease, unspecified COPD type (ICD-10 - J44.9) Patient to follow up with pulmonology this afternoon 09/24/2024 Allergic rhinitis (ICD-10 - J30.9) 11/04/2024 Gastroesophageal reflux disease, esophagitis presence not specified (ICD-10 - K21.9) 11/13/2024 Essential hypertension (ICD-10 - I10) 12/03/2024 Chronic obstructive pulmonary disease, unspecified COPD type (ICD-10 - J44.9) 12/21/2024 Urge incontinence of urine (ICD-10 - N39.41) 12/21/2024 Chronic respiratory failure, unspecified whether with hypoxia or hypercapnia (ICD-10 - J96.10) 12/21/2024 Type 2 diabetes mellitus without complication, without long-term current use of insulin (ICD-10 - E11.9) 07/21/2024 Acute on chronic respiratory failure with hypoxia (ICD-10 - J96.21) 07/21/2024 Acute left ankle pain (ICD-10 - M25.572) 04/24/2024 Stage 3b chronic kidney disease (CKD) (ICD-10 - N18.32) 04/24/2024 Peripheral edema (ICD-10 - R60.0) 04/24/2024 Anemia, unspecified type (ICD-10 - D64.9) 07/21/2024 Left ankle joint deformity (ICD-10 - M21.962) 12/21/2024 Other hemorrhoids (ICD-10 - K64.8) 12/21/2024 Hyperlipidemia, unspecified hyperlipidemia type (ICD-10 - E78.5) 11/13/2024 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) 11/04/2024 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) 09/07/2024 Peripheral edema (ICD-10 - R60.9) 09/22/2024 Dry eyes, bilateral (ICD-10 - H04.123) 08/25/2024 Acute anemia (ICD-10 - D64.9) 06/04/2024 Hypoxia (ICD-10 - R09.02) Will request a portable concentrator 03/20/2024 Anemia, unspecified type (ICD-10 - D64.9) 03/03/2024 Enlarged lymph node in neck (ICD-10 - R59.0) 03/03/2024 Sleep apnea in adult (ICD-10 - G47.30) 03/20/2024 Renal insufficiency (ICD-10 - N28.9) 06/04/2024 Chronic obstructive pulmonary disease, unspecified COPD type (ICD-10 - J44.9) 09/07/2024 Debility (ICD-10 - R53.81) 08/25/2024 Neuropathy (ICD-10 - G62.9) 09/22/2024 Depression with anxiety (ICD-10 - F41.8) 12/21/2024 BRBPR (bright red blood per rectum) (ICD-10 - K62.5) 07/21/2024 Left ankle instability (ICD-10 - M25.372) continues with PT 04/24/2024 Hypomagnesemia (ICD-10 - E83.42) 04/24/2024 SOB (shortness of breath) (ICD-10 - R06.02) 07/21/2024 Hypoxia (ICD-10 - R09.02) needs O 2 and CPAP EVERY NIGHT AND IF SLEEPS DURING THE DAY 12/21/2024 Hypomagnesemia (ICD-10 - E83.42) 09/22/2024 Gastroesophageal reflux disease, esophagitis presence not specified (ICD-10 - K21.9) 08/25/2024 Hyperlipidemia, unspecified hyperlipidemia type (ICD-10 - E78.5) 03/03/2024 Type 2 diabetes mellitus without complication, unspecified whether dedicated intermodal truck driver insulin use (ICD-10 - E11.9) 03/20/2024 Obstructive sleep apnea (ICD-10 - G47.33) Patient is doing well with CPAP use and needs to continue using it whenever she sleeps. Her machine is inoperable and needs to be replaced 03/03/2024 Chronic GERD (ICD-10 - K21.9) 08/25/2024 Hypomagnesemia (ICD-10 - E83.42) 09/22/2024 Hypomagnesemia (ICD-10 - E83.42) 07/21/2024 Generalized weakness (ICD-10 - R53.1) CONTINUE WITH EXERCISES 07/21/2024 Type 2 diabetes mellitus without complication, unspecified whether dedicated intermodal truck driver insulin use (ICD-10 - E11.9) 12/21/2024 Stage 3b chronic kidney disease (CKD) (ICD-10 - N18.32) 08/25/2024 Acute on chronic respiratory failure with hypoxia (ICD-10 - J96.21) continue with O2 08/25/2024 Acute left ankle pain (ICD-10 - M25.572) 09/22/2024 Debility (ICD-10 - R53.81) 03/03/2024 Hyperlipidemia, unspecified hyperlipidemia type (ICD-10 - E78.5) 03/03/2024 RICHIE (acute kidney injury) (ICD-10 - N17.9) 08/25/2024 Left ankle instability (ICD-10 - M25.372) continues with PT 09/22/2024 Allergic rhinitis (ICD-10 - J30.9) 07/21/2024 Essential (primary) hypertension (ICD-10 - I10) 12/21/2024 Chronic obstructive pulmonary disease, unspecified COPD type (ICD-10 - J44.9) 07/21/2024 Neuropathy (ICD-10 - G62.9) 09/22/2024 Osteoporosis (ICD-10 - M81.0) Patient is required to use a wheelchair as her primary mode of transportation. Patient is only able to walk two to three steps without having to sit back down. 08/25/2024 Hypoxia (ICD-10 - R09.02) needs O 2 and CPAP EVERY NIGHT AND IF SLEEPS DURING THE DAY 03/03/2024 Elevated brain natriuretic peptide (BNP) level (ICD-10 - R79.89) 03/03/2024 Weakness (ICD-10 - R53.1) continue with PT?OT; she plans to return home 08/25/2024 Generalized weakness (ICD-10 - R53.1) CONTINUE WITH EXERCISES 09/22/2024 Obstructive sleep apnea (ICD-10 - G47.33) Patient is compliant with CPAP and should continue CPAP. 07/21/2024 Chronic obstructive pulmonary disease, unspecified COPD type (ICD-10 - J44.9) 07/21/2024 Depression with anxiety (ICD-10 - F41.8) 08/25/2024 Type 2 diabetes mellitus without complication, unspecified whether fci insulin use (ICD-10 - E11.9) 03/03/2024 Essential hypertension (ICD-10 - I10) 03/03/2024 Depression with anxiety (ICD-10 - F41.8) 08/25/2024 Essential (primary) hypertension (ICD-10 - I10) 07/21/2024 Gastroesophageal reflux disease, esophagitis presence not specified (ICD-10 - K21.9) 07/21/2024 Primary osteoarthritis involving multiple joints (ICD-10 - M15.0) 08/25/2024 Chronic obstructive pulmonary disease, unspecified COPD type (ICD-10 - J44.9) 03/03/2024 Primary osteoarthritis involving multiple joints (ICD-10 - M15.0) 03/03/2024 Spinal stenosis, lumbar (ICD-10 - M48.06) 08/25/2024 Depression with anxiety (ICD-10 - F41.8) 07/21/2024 Obstructive sleep apnea (ICD-10 - G47.33) needs CPAP nightly due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
[2025-02-21 10:33] LABS: Microscopic, Urine URINE MICROSCOPIC (MICROSCOPIC)
[2025-02-21 10:35] LABS: Appearance,Urine CLEAR (Clear); Bilirubin,Urine Negative (Negative); Blood, Urine Negative (Negative); Color,Urine YELLOW (Yellow); Glucose,Urine (UA) Negative (Negative); Ketones,Urine Negative (Negative); Leukocyte Esterase,Urine Negative (Negative); Nitrate,Urine Negative (Negative); PH,Urine 5.5 (5.0-8.5); Protein,Urine Negative (Negative); Urobilinogen,Urine 0.2 EU/dl (0.2)
[2025-02-21 10:49] LABS: Bacteria,Urine Trace /lpf; WBC,Urine Occasional #/hpf (0-3)
== END 2025-02-21 23:59 | disposition home or self-care (01) ==
LOC: LAB 10:17
PROVIDERS: PCP Family Medicine; Visit Provider Family Medicine
DX: N39.0 Urinary tract infection, site not specified (principal); R82.79 Other abnormal findings on microbiological examination of urine
CPT/HCPCS: 81001; 87086

== ENCOUNTER 2025-02-26 10:59 | Outpatient (CLI) | payer MEDICARE, BC, SELFPAY ==
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
--- OUTSIDE RECORDS SUMMARY | 2025-02-26 11:03 | XMS_ITS | Clinical Summary ---
Author Organization [facility] ([place], [place], [place], [place]) Address [address] [place] [address] Care Team Providers Care Tower Dragline Operator Name Role Phone Unavailable Primary Care Provider [...]
--- OUTSIDE RECORDS SUMMARY | 2025-02-26 11:03 | XMS_ITS | Clinical Summary ---
Author Organization [facility] Address [address] [place] [address] Care Team Providers Care Pan Devulcanizer Name Role Phone Allan Adamson MD Primary Care Provider [phone] Allergies No known active allergies Medications lisinopril [...] (two) times a day. Active HYDROcodone-rikki taminophen ([place]) 5-325 MG tablet Active oxybutynin XL (Ditropan-XL) [...] of Treatment Not on file Insurance MEDICARE [facility] Care Teams Pan Devulcanizer Relationship Specialty Start Date End Date Allan Adamson MD [facility] [place] [address] PCP - General 01/06/21
--- OUTSIDE RECORDS SUMMARY | 2025-02-26 11:03 | XMS_ITS | Referral Summary ---
Author Organization [employer] ([place], [place], [place], [place]) Address [address] [place] [address] Care Team Providers Care Supervisor Shuttle Fitting Name Role Phone Unavailable Primary Care Provider [...]
--- OUTSIDE RECORDS SUMMARY | 2025-02-26 11:03 | XMS_ITS | Patient Health Record ---
Author Organization [facility] Address [address] [place] [id number] Care Team Providers Care Lapping Machine Set Up Operator Name Role Phone Allan Adamson Primary Care Provider Ata Vences Unavailable [phone] Yvette Harris Unavailable [phone] MylesYanci mccauley Unavailable [phone] Allergies No Known Allergies Results Component Value [...] 26 Performing Lab: Notes/Report: Test performed by [facility] [address] [place] [address] , [address], [place] [address] Tristian Amado MD, [employer] CLIA: [id number] Sodium 142 135-145 mmol/L Potassium 5.0 3.5-5.3 mmol/L Chloride 99 97-108 mmol/L CO2 34 22-32 mmol/L Glucose 61 65-99 mg/dL BUN 51 8-23 mg/dL Creatinine 1.87 0.50-1.00 mg/dL Calcium 9.3 8.6-10.4 mg/dL eGFR by Creatinine 26 >59 mL/min/1.73m2 P-Hemoglobin A1C Reviewed date:12/22/2024 09:28:32 AM Interpretation:6.1 Performing Lab: Notes/Report: Test performed by [facility] [address] [place] [address] Dr[facility] [place] [address] Tristian Amado MD, [employer] CLIA: [id number] Hemoglobin A1C 6.1 <5.7 % The following HbA1c ranges recommended by the [place] [employer] (ADA) may be used as an aid in the diagnosis of diabetes mellitus. HbA1c Suggested Diagnosis >=6.5% Diabetic 5.7% - 6.4% Pre-Diabetic <5.7% Non-Diabetic P-Magnesium Reviewed date:12/22/2024 09:28:32 AM Interpretation: Normal Performing Lab: Notes/Report: Test performed by [facility] [employer] [address] [place] [address] Dr. [facility] [place] [address] Tristian Amado MD, Electric [employer] CLIA: [id number] Magnesium 1.9 1.6-2.4 mg/dL Estimated Average Glucose Reviewed date:12/22/2024 09:28:32 AM Interpretation:128 Performing Lab: Notes/Report: Test performed by [facility] [address] [place] [address] [place] [address] Tristian Amado MD, Electric [employer] CLIA: [id number] Estimated Average Glucose (eAG) 128 Estimated Average Glucose (eAG) is calculated using the equation eAG = (28.7 x HbA1c) - 46.7 based on the guidelines established by the ADA. If the patient has certain diseases including kidney disease, sickle cell anemia, thalassemia, or is taking medications such as dapsone, erythropoietin, or iron, eAG should not be evaluated. H-Urine Culture and Sensitiv ity Reviewed date:02/24/2025 02:29:45 PM Interpretation:suggests contamination Performing Lab: Notes/Report: suggests contamination CXR Reviewed date:12/24/2024 08:24:52 AM Interpretation: Performing Lab: Notes/Report: H-BMP Reviewed date:07/15/2024 11:15:17 AM Interpretation: Performing Lab: Notes/Report: NA 138 136-145 mmol/L K 3.9 3.5-5.1 mmoL/L CL 91 98-107 mmol/L CO2 37 22.0-30.0 mmol/L GAP 13.9 5-15 mEq/L BUN 41 7-17 mg/dl CREATT 0.80 0.52-1.04 mg/dl CRCLE 59 50-200 mL/min GFRAA 82 >60 ML/MIN EGFR 68 >60 ml/min GLU 183 74-100 mg/dl CA 7.6 8.4-10.2 mg/dl H-DIFF Reviewed date:07/15/2024 04:26:26 PM Interpretation: Performing Lab: Notes/Report: PIPE MANUAL DIFFERENTIAL MANUAL DIFF TCC 100 NEUT%M 86 42-76 % LYMPH%M 13 10-50 % MONO%M 1 2-9 % PLTE Normal HYPO 2+ H-CBC Reviewed date:07/15/2024 04:26:26 PM Interpretation: Performing [...] K/mm3 BA# 0.1 0-0.2 K/mm3 H-CMP Reviewed date:07/13/2024 03:48:34 PM Interpretation: Performing [...] AGRATIO 1.1 1.1-1.8 ALP 74 38-126 U/L H-Sputum Culture with Gram S talat Reviewed date:07/15/2024 06:28:51 PM Interpretation: Performing Lab: Notes/Report: Cancel Comments Cancelled via OM: Order cancelled - Patient discharged Comment: Induce w/3ml NS neb tx if necessary H-BMP Reviewed date:07/13/2024 08:42:30 AM Interpretation: Performing [...] 0.0 0.0-0.4 K/mm3 BA# 0.0 0-0.2 K/mm3 H-COVIDPANEL Reviewed date:07/09/2024 12:34:39 PM Interpretation: Performing Lab: Notes/Report: No Is this the 1st COVID test for the patient? No Does the patient have COVID symptoms? Yes Is the patient employed in healthcare? No Is patient an [facility] employee? N Is patient currently hospitalized? Yes Is patient currently in ICU? No Date of Symptom onset Is patient a resident in a congregate care setting? No ADENOQIA Not Detected NotDetected CORONAHKU1 Not Detected NotDetected [id number] Not Detected NotDetected [id number] Not Detected NotDetected [id number] Not Detected NotDetected METAPNEUMO Not Detected NotDetected RHINOENTER Not Detected NotDetected INFLUAPCR Not Detected NotDetected FLUAH1 Not Detected NotDetected [id number] Not Detected NotDetected INFLUAH3 Not Detected NotDetected [...] Notes/Report: Cancel Comments NEEDS REORDER NOT SENT H-Vancomycin, Trough Reviewed date:08/11/2024 10:07:57 AM Interpretation: Performing Lab: Notes/Report: VANCT 14.2 5.0-10.0 ug/mL H-BMP Reviewed date:08/11/2024 11:35:04 AM Interpretation: Performing Lab: Notes/Report: NA 137 136-145 mmol/L K 4.5 3.5-5.1 mmoL/L CL 104 98-107 mmol/L CO2 34 22.0-30.0 mmol/L GAP 3.5 5-15 mEq/L BUN 25 7-17 mg/dl CREATT 0.80 0.52-1.04 mg/dl CRCLE 62 50-200 mL/min GFRAA 82 >60 ML/MIN EGFR 68 >60 ml/min GLU 95 74-100 mg/dl CA 8.6 8.4-10.2 mg/dl H-CBC Reviewed date:08/11/2024 10:07:56 AM Interpretation: Performing [...] 0.1 0.0-0.4 K/mm3 BA# 0.1 0-0.2 K/mm3 H-Magnesium Reviewed date:08/10/2024 03:13:24 PM Interpretation: Performing Lab: Notes/Report: MG 2.0 1.6-2.3 mg/dl Delta: 0.8 on 08/08/24 H-BMP Reviewed date:08/10/2024 03:13:24 PM Interpretation: Performing Lab: Notes/Report: NA 137 136-145 mmol/L K 4.4 3.5-5.1 mmoL/L CL 105 98-107 mmol/L CO2 34 22.0-30.0 mmol/L GAP 2.4 5-15 mEq/L BUN 29 7-17 mg/dl CREATT 0.90 0.52-1.04 mg/dl CRCLE 63 50-200 mL/min GFRAA 72 >60 ML/MIN EGFR 60 >60 ml/min GLU 90 74-100 mg/dl Delta: 129 on 08/09/24 CA 8.2 8.4-10.2 mg/dl H-CBC Reviewed date:08/10/2024 03:13:24 PM Interpretation: Performing [...] K/mm3 BA# 0.0 0-0.2 K/mm3 H-BMP Reviewed date:07/14/2024 08:47:31 AM Interpretation: Performing [...] 325 on 07/13/24 CA 7.9 8.4-10.2 mg/dl H-DIFF Reviewed date:07/14/2024 10:33:49 AM Interpretation: Performing Lab: Notes/Report: PIPE MANUAL DIFFERENTIAL MANUAL DIFF TCC 100 NEUT%M 84 42-76 % LYMPH%M 14 10-50 % MONO%M 2 2-9 % PLTE Normal HYPO 1+ H-CBC Reviewed date:07/14/2024 10:33:49 AM Interpretation: Performing Lab: Notes/Report: WBC 11.9 4.8-10.8 K/mm3 Delta: 7.7 on 07/12/24 RBC 4.99 4.20-5.40 M/mm3 HGB 11.7 12.2-16.2 [...] K/mm3 BA# 0.0 0-0.2 K/mm3 H-BMP Reviewed date:07/11/2024 09:06:38 AM Interpretation: Performing [...] 242 74-100 mg/dl CA 8.6 8.4-10.2 mg/dl H-DIFF Reviewed date:07/11/2024 09:06:38 AM Interpretation: Performing Lab: Notes/Report: PIPE MANUAL DIFFERENTIAL MANUAL DIFF TCC 100 NEUT%M 90 42-76 % LYMPH%M 8 10-50 % MONO%M 2 2-9 % PLTE Normal RM Normal H-CBC Reviewed date:07/11/2024 09:06:38 AM Interpretation: Performing [...] 0.0 0.0-0.4 K/mm3 BA# 0.0 0-0.2 K/mm3 H-CMP Reviewed date:06/30/2024 11:34:12 AM [...] AGRATIO 1.1 1.1-1.8 ALP 67 38-126 U/L H-CBC Reviewed date:06/30/2024 11:34:11 AM Interpretation: Performing [...] 0.1 0.0-0.4 K/mm3 BA# 0.1 0-0.2 K/mm3 H-TSH Reviewed date:06/30/2024 11:34:11 AM Interpretation: Performing Lab: Notes/Report: TSH 0.78 0.465-4.68 uIU/mL H-BMP Reviewed date:05/11/2024 09:23:49 AM Interpretation: Performing [...] mg/dl CA 8.7 8.4-10.2 mg/dl H-CBC Reviewed date:05/11/2024 09:23:49 AM Interpretation: Performing [...] 0.2 0.0-0.4 K/mm3 BA# 0.0 0-0.2 K/mm3 H-Sputum Culture with Gram Chaim gilliland Reviewed date:05/14/2024 08:29:43 AM Interpretation: Performing Lab: Notes/Report: Comment: Induce w/3ml NS neb tx if necessary GS Gram Stain: GS 10 - 25 White Blood Cells / LPF GS Moderate Gram Positi ve Cocci GS <10 Epithelial Cells / LPF CUSPU ORGANISM 1: Staphylococcus aureus RX CHANG: R- Resistant S- Susceptible I- Intermediate * Not on [facility] CUSPU Quantify Many RX CHANG: R- Resistant S- Susceptible I- Intermediate * Not on [facility] CUSU RX CHANG: R- Resistant S- Susceptible I- Intermediate * Not on [facility] CUSU RX CHANG: R- Resistant S- Susceptible I- Intermediate * Not on [facility] Staphylococcus aureu s: REACTION RX CHANG: R- Resistant S- Susceptible I- Intermediate * Not on [facility] Clindamycin <=0.5 S RX CHANG: R- Resistant S- Susceptible I- Intermediate * Not on [facility] Erythromycin <=0.5 S RX CHANG: R- Resistant S- Susceptible I- Intermediate * Not on [facility] Gentamicin <=1 S RX CHANG: R- Resistant S- Susceptible I- Intermediate * [facility] Min[facility]1 S RX CHANG: R- Resistant S- Susceptible I- Intermediate * Not on [facility] Oxacillin <=0.25 S RX CHANG: R- Resistant S- Susceptible I- Intermediate * Not on [facility] Rifampin <=0.5 S RX CHANG: R- Resistant S- Susceptible I- Intermediate * Not on [facility] Tetracycline <=0.5 S RX CHANG: R- Resistant S- Susceptible I- Intermediate * Not on [facility] Trimethoprim/Sulfame tho xazole <=0.5/9.5 S RX CHANG: R- Resistant S- Susceptible I- Intermediate * [facility] Van[facility] 1 S RX CHANG: R- Resistant S- Susceptible I- Intermediate * [facility]ANG: R- Resistant S- Susceptible I- Intermediate * Not on [facility] H-Culture, Blood Reviewed date:05/15/2024 10:24:55 AM Interpretation: Performing Lab: Notes/Report: CUBLD NO GROWTH AFTER 5 DAYS CUBLD NO GROWTH AFTER 5 DAYS H-CMP Reviewed date:05/11/2024 09:23:50 AM Interpretation: Performing [...] AGRATIO 1.1 1.1-1.8 ALP 74 38-126 U/L H-UA Reviewed date:05/11/2024 09:23:49 AM Interpretation: Performing [...] Occasional 0-5 #/hpf UBACT None NONE /lpf H-CBC Reviewed date:05/11/2024 09:23:49 AM Interpretation: Performing [...] 0.2 0.0-0.4 K/mm3 BA# 0.1 0-0.2 K/mm3 P-Basic Metabolic Panel (BMP ) Reviewed date:05/06/2024 08:56:47 AM Interpretation:bun 27, Cr 1.32, gfr 39 Performing Lab: Notes/Report: Test performed by [facility] [address] [place] [address] , [address], [place] [address] Tristian Amado MD, [employer] CLIA: [id number] Sodium 145 135-145 mmol/L Potassium 4.4 3.5-5.3 mmol/L Chloride 103 97-108 mmol/L CO2 32 22-32 mmol/L Glucose 97 65-99 mg/dL BUN 27 8-23 mg/dL Creatinine 1.32 0.50-1.00 mg/dL Calcium 8.7 8.6-10.4 mg/dL eGFR by Creatinine 39 >59 mL/min/1.73m2 CBC Venipuncture (in house) Reviewed date:04/29/2024 09:47:53 [...] 37 Performing Lab: Notes/Report: Test performed by [facility] [address] [place] [address] , [address], [place] [address] Tristian Amado MD, Electric [employer] As[employer]er CLIA: [id number] Sodium 145 135-145 mmol/L Potassium 5.8 3.5-5.3 [...] Interpretation:21 Performing Lab: Notes/Report: Test performed by [employer] [address] [place] [address] , [address], [place] [address] Tristian Amado MD, Electric [employer] CLIA: [id number] Iron 21 37-145 ug/dL P-Magnesium Reviewed date:04/29/2024 09:47:53 AM Interpretation:Normal Performing Lab: Notes/Report: Test performed by [employer] [address] [place] [address] [address], [address], [place] [address] Tristian Amado MD, Electric [employer] CLIA: [id number] Magnesium 1.8 1.6-2.4 mg/dL CBC Venipuncture (in house) Reviewed date:03/23/2024 09:27:05 [...] - 38 platlet 113 100 - 400 P-Basic Metabolic Panel (BMP ) Reviewed date:03/23/2024 09:26:19 AM Interpretation:bun 64, creat 1.63, K+ 5.4, gfr 31 Performing Lab: Notes/Report: Test performed by [employer] [address] [place] [address] , [address], [place] [address] Tristian Amado MD, Electric [employer]er CLIA: [id number] Sodium 145 135-145 mmol/L Potassium 5.4 3.5-5.3 mmol/L Chloride 108 97-108 mmol/L CO2 26 22-32 mmol/L Glucose 89 65-99 mg/dL BUN 64 8-23 mg/dL Creatinine 1.63 0.50-1.00 mg/dL Calcium 9.3 8.6-10.4 mg/dL eGFR by Creatinine 31 >59 mL/min/1.73m2 P-Magnesium Reviewed date:03/23/2024 09:26:48 AM Interpretation:Normal Performing Lab: Notes/Report: Test performed by [employer] [address] [place] [address] , [address], [place] [address] Tristian Amado MD, Electric [employer] Assembler CLIA: [id number] Magnesium 2.0 1.6-2.4 mg/dL H-Vancomycin, Peak Reviewed date:08/12/2024 02:40:36 PM Interpretation: Performing Lab: Notes/Report: VANCP 29.6 11-39 ug/ml H-CBC Reviewed date:08/13/2024 09:36:50 AM Interpretation: Performing Lab: Notes/Report: WBC 9.3 4.8-10.8 K/mm3 Delta: 6.7 on 08/11/24-0820 RBC 4.36 4.20-5.40 M/mm3 HGB 10.5 12.2-16.2 g/dL HCT 35.1 37.0-47.0 % MCV 80.5 81-99 fl MCH 24.1 27.0-31.2 pg MCHC 29.9 31.8-35.4 g/dL RDW 21.2 11.5-17.5 % PLT 178 142-424 K/mm3 Delta: 141 on 08/11/24-0820 MPV 10.2 7.4-10.4 fl NE% 72.5 37.0-80.0 [...] 108 74-100 mg/dl CA 9.1 8.4-10.2 mg/dl H-UA Reviewed date:02/24/2025 04:52:18 PM Interpretation: Performing Lab: Notes/Report: UCOL YELLOW Yellow UAPP CLEAR Clear UPH 5.5 5.0-8.5 USG 1.020 1.005-1.030 UPRO Negative Negative UGLU Negative Negative UKET Negative Negative UBLD Negative Negative UNIT Negative Negative UBIL Negative Negative UURO 0.2 0.2 EU/dl ULEU Negative Negative UMICU URINE MICROSCOPIC MICROSCOPIC URBC None 0-3 #/hpf UWBC Occasional 0-3 #/hpf USQEPI 3-5 0-5 #/hpf UBACT Trace NONE /lpf Medications Medication SIG (Take, Route, Frequency, Duration) [...] Active Regular Diet - as directed [facility]; [facility] Act linda Caltrate 600+D3 600-800 MG-UNIT [...] Status W/U Status Risk Notes Problem Hyperlipidaemia (59783888) Hyperlipemia (272.4) Active confirmed Problem Essential hypertension (71697574) Essential (primary) hypertension (I10) Active confirmed Problem Tear film insufficiency (57113568) Dry eyes, bilateral (H04.123) Active confirmed Problem History of malignant melanoma of the skin (612281074395) History of melanoma (Z85.820) Active confirmed Problem Essential hypertension (05877729) Essential hypertension (I10) Active confirmed Problem Hypertriglyceridemia (838734767) Hypertriglyceridemia (E78.1) Active confirmed Problem 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-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 confirmed Problem Obstructive sleep apnea (74069259) Obstructive sleep apnea (G47.33) Active confirmed Problem Hypokalemia (23867753) History of hypokalemia (Z86.39) Active confirmed Problem Mixed anxiety and depressive disorder (332244691) Depression with anxiety (F41.8) Active confirmed Problem Acute exacerbation o f chronic obstructive airways disease (671265793) COPD exacerbation (J44.1) Active confirmed Problem Mixed hyperlipidemia (352887536) Mixed hyperlipidemia (E78.2) Active confirmed Problem Hypomagnesemia (882815952) Hypomagnesemia (E83.42) Active confirmed Problem Allergic rhinitis (87474754) Allergic rhinitis, unspecified (J30.9) Active confirmed Problem Chronic respiratory failure (86906665) Chronic respiratory failure, unspecified whether with hypoxia or hypercapnia (J96.10) Active confirmed Problem Ppppw-fb-cmdpatf hypoxemic respiratory failure (58138955690800318) Acute and chronic respiratory failure with hypoxia (J96.21) Active confirmed Problem Abnormal findings on diagnostic imaging of breast (738911417) Other abnormal and inconclusive findings on diagnostic imaging of breast (R92.8) Active confirmed Problem History of polyp of colon (situation) (873557267) History of colon polyps (Z86.010) Active confirmed Problem Chronic pain (42109731) Other chronic pain (G89.29) Active confirmed Problem Pulmonary emphysema (40667479) Pulmonary emphysema, unspecified emphysema type (J43.9) Active confirmed Problem Primary osteoarthritis (822054531) Primary osteoarthritis involving multiple joints (M15.0) Active confirmed Problem Gastroesophageal reflux disease (disorder) (064865333) Chronic GERD (K21.9) Active confirmed Problem COPD - Chronic obstructive pulmonary disease (34140729) Chronic obstructive pulmonary disease, unspecified COPD type (J44.9) Active confirmed Problem Gastroesophageal reflux disease (731854915) Gastroesophageal reflux disease, esophagitis presence not specified (K21.9) Active confirmed Problem Neuropathy (459936563) Neuropathy (G62.9) Active confirmed Problem Allergic rhinitis (86674653) Allergic rhinitis (J30.9) Active confirmed Problem Lumbar spinal stenosis (14474480) Spinal stenosis, lumbar (M48.06) Active confirmed Problem Osteoporosis (68527434) Osteoporosis (M81.0) Active confirmed Problem Cardiac arrhythmia (904816044) Atrial dysrhythmia (I49.8) Active confirmed Problem Sleep apnea (05531438) Sleep apnea, unspecified type (G47.30) Active confirmed Problem Hyperlipidaemia (60053945) Hyperlipidemia, unspecified hyperlipidemia type (E78.5) Active confirmed Problem Polyneuropathy due t o type 2 diabetes mellitus (928276049) 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) Active confirmed Problem Lftqj-qm-kbswmqp hypoxemic respiratory failure (11849199502673104) Acute on chronic respiratory failure with hypoxia (J96.21) Active confirmed Problem Atrial ectopic (237728502) Atrial ectopic (I49.1) Active confirmed Problem Low back pain (408135034) Chronic right-sided low back pain without sciatica (M54.5) Active confirmed Problem Type II diabetes mellitus without complication (808239316) Type 2 diabetes mellitus without complication, without long-term current use of insulin (E11.9) Active confirmed Problem Cramp in lower leg associated with rest (320411278) Leg cramps, sleep related (G47.62) Active confirmed Problem 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, choroid, 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 Problem Hypertensive urgency (882897436) Hypertensive urgency (I16.0) Active confirmed Problem Urge incontinence of urine (34353808) Urge incontinence of urine (N39.41) Active confirmed Problem Sleep apnea (32399472) Sleep apnea in adult (G47.30) Active confirmed Problem Arthritis of right hip (3297892429371338) Arthritis of right hip (M16.11) Active confirmed Problem Deformity of foot (finding) (417749252) Deformity of foot, unspecified laterality (M21.969) Active confirmed Problem Type II diabetes mellitus without complication (230880479) Type 2 diabetes mellitus without complication, unspecified whether supervisor intermediates insulin use (E11.9) Active confirmed Problem Diastolic dysfunctio n (6244946) Diastolic dysfunction (I51.89) Active confirmed Problem Osteomyelitis (17934684) Osteomyelitis of toe of right foot (M86.9) Active confirmed Problem Gastroesophageal reflux disease (529427815) Gastroesophageal reflux disease, unspecified whether esophagitis present (K21.9) Active confirmed Problem Chronic kidney disease stage 3B (disorder) (753512955) Stage 3b chronic kidney disease (CKD) (N18.32) Active confirmed Problem Chronic kidney disease stage 3A (disorder) (940091555) Stage 3a chronic kidney disease (CKD) (N18.31) Active confirmed Problem Anemia (296792622) Acute anemia (D64.9) Active confirmed Problem Abnormal gait (89797976) Inability to bear weight (R26.89) Active confirmed Problem Left ankle joint deformity (M21.962) Active confirmed Vital Signs Heart Rate 54 /min 09/22/2024 Respiratory Rate 18 /min 08/25/2024 Blood pressure diastolic 74 mm Hg 12/21/2024 Height 65.50 in 12/21/2024 Blood pressure systolic 132 mm Hg 12/21/2024 Weight 000 lbs 12/21/2024 BMI 36.70 kg/m2 06/04/2024 Encounters Encounter Location Date Provider Diagnosis [address] [place] [id number] 03/03/2024 Yvette Harris Acute pneumonia J18. 9 ; Acute respiratory failure with hypoxia J96.01 ; Enlarged lymph node in neck R59.0 ; Sleep apnea in adult G47.30 ; Type 2 diabetes mellitus without complication, unspecified whether correction insulin use E11.9 ; Chronic GERD K21.9 [...] associated with type 2 diabetes mellitus E11.42 [facility] [address] [facility] [address] [place] [id number] 03/20/2024 Allan Newkirk Essential hypertensi on I10 ; Hypomagnesemia E83.42 ; Anemia, unspecified type D64.9 ; Renal insufficiency N28.9 and Obstructive sleep apnea G47.33 [facility] [address] [facility] [address] [place] [id number] 04/24/2024 Allan Newkirk Peripheral edema R60 .0 ; Stage 3b chronic kidney disease (CKD) N18.32 ; Anemia, unspecified type D64.9 ; Hypomagnesemia E83.42 and SOB (shortness of breath) R06.02 [facility] [address] [facility] [address] [place] [id number] 05/04/2024 Allan Newkirk Hypokalemia E87.6 [facility] [address] [address] [place] [id number] 06/04/2024 Allan Newkirk Pain in left ankle a nd joints of left foot M25.572 ; Diastolic dysfunction I51.89 ; Hypoxia R09.02 and Chronic obstructive pulmonary disease, unspecified COPD type J44.9 [address] [place] [id number] 07/21/2024 Yvette Harris Acute on chronic respiratory failure with hypoxia J96.21 ; Acute left ankle pain M25.572 ; Left ankle joint deformity M21.962 ; Left ankle instability M25.372 ; Hypoxia R09.02 ; Generalized weakness R53.1 ; Type 2 diabetes mellitus without complication, unspecified whether supervisor intermediates insulin use E11.9 ; Essential (primary) hypertension [...] R53.81 and Leg cramps, sleep related G47.62 [place] [address] [place] [id number] 08/25/2024 Yvette Harris Left ankle joint deformity M21.962 ; Acute anemia D64.9 ; Neuropathy G62.9 ; Hyperlipidemia, unspecified hyperlipidemia type E78.5 ; Hypomagnesemia E83.42 ; Acute on chronic respiratory failure with hypoxia J96.21 ; Acute left ankle pain M25.572 ; Left ankle instability M25.372 ; Hypoxia R09.02 ; Generalized weakness R53.1 ; Type 2 diabetes mellitus without complication, unspecified whether supervisor intermediates insulin use E11.9 ; Essential (primary) hypertension [...] R53.81 and Leg cramps, sleep related G47.62 [place] [address] [place] [id number] 09/22/2024 Allan Adamson Essential hypertensi on I10 ; Chronic obstructive pulmonary disease, unspecified COPD type J44.9 ; Dry eyes, bilateral H04.123 ; Depression with anxiety F41.8 ; Gastroesophageal reflux disease, esophagitis presence not specified K21.9 ; Hypomagnesemia E83.42 ; Debility R53.81 ; Allergic rhinitis J30.9 ; Osteoporosis M81.0 and Obstructive sleep apnea G47.33 [facility] [address] [place], [place] [id number] 12/21/2024 Allan Newkirk Type 2 diabetes rere itus without complication, without long-term current use of insulin E11.9 ; Chronic respiratory failure, unspecified whether with hypoxia or hypercapnia J96.10 ; Other hemorrhoids K64.8 ; BRBPR (bright red blood per rectum) K62.5 ; Hypomagnesemia E83.42 ; Stage 3b chronic kidney disease (CKD) N18.32 and Chronic obstructive pulmonary disease, unspecified COPD type J44.9 [facility] [address] [place], [place] [id number] 03/04/2024 Yanci Crowdy [facility] [address] [place], [place] [id number] 03/05/2024 Allan Newkirk [facility] [address] [place], [place] [id number] 03/09/2024 Allan Newkirk [facility] [address] [place], [place] [id number] 03/12/2024 Allan Newkirk [facility] [address] [place], [place] [id number] 03/13/2024 Allan Newkirk [facility] [address] [place], [place] [id number] 03/23/2024 Allan Newkirk [facility] [address] [place], [place] [id number] 04/08/2024 Allan Newkirk [facility] [address] [place], [place] [id number] 04/29/2024 Allan Newkirk [facility] [address] [place], [place] [id number] 05/06/2024 Allan Newkirk [facility] [address] [place], [place] [id number] 05/27/2024 Allan Newkirk Essential hypertensi on I10 [facility] [address] [place], [place] [id number] 06/04/2024 Allan Newkirk [facility] [address] [place], [place] [id number] 06/18/2024 Allan Newkirk [facility] [address] [place], [place] [id number] 08/04/2024 Allan Newkirk [facility] [address] [place], [place] [id number] 08/10/2024 Allan Newkirk [facility] [address] [place] [id number] 08/21/2024 Allan Newkirk [facility] [address] [place], [place] [id number] 09/07/2024 Allan Newkirk Diabetic polyneuropa thy associated with type 2 diabetes mellitus E11.42 [facility] [address] [place], [place] [id number] 09/07/2024 Allan Newkirk Type 2 diabetes rere itus without complication, unspecified whether correction insulin use E11.9 ; Peripheral edema R60.9 and Debility R53.81 [facility] [address] [place], [place] [id number] 09/08/2024 Allan Newkirk Type 2 diabetes rere itus without complication, unspecified whether correction insulin use E11.9 [facility] [address] [place], [place] [id number] 09/22/2024 Allan Newkirk [facility] [address] [place] [id number] 09/24/2024 Allan Newkirk Allergic rhinitis J3 0.9 [facility] [address] [place], [place] [id number] 11/04/2024 Allan Newkirk [facility] [address] [place], [place] [id number] 11/04/2024 Allan Newkirk Gastroesophageal ref lux disease, esophagitis presence not specified K21.9 and Diabetic polyneuropathy associated with type 2 diabetes mellitus E11.42 [facility] [address] [place], [place] [id number] 11/05/2024 Allan Newkirk [facility] [address]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
[2025-02-26 11:07] LABS: Microscopic, Urine URINE MICROSCOPIC (MICROSCOPIC)
[2025-02-26 11:19] LABS: Bilirubin,Urine Negative (Negative); Color,Urine YELLOW (Yellow); Glucose,Urine (UA) Negative (Negative); Ketones,Urine Negative (Negative); Leukocyte Esterase,Urine Negative (Negative); PH,Urine 5.5 (5.0-8.5); Protein,Urine Negative (Negative); Specific Gravity, Urine 1.020 (1.005-1.030); Urobilinogen,Urine 0.2 EU/dl (0.2)
[2025-02-26 11:26] LABS: WBC,Urine Occasional #/hpf (0-3)
[2025-02-26 11:27] LABS: Bacteria,Urine Trace /lpf; Squamous Epithelial Cell,Urine Occasional #/hpf (0-5)
== END 2025-02-26 23:59 | disposition home or self-care (01) ==
LOC: LAB.DROPOF 11:00
PROVIDERS: PCP Family Medicine; Visit Provider Family Medicine
DX: N39.0 Urinary tract infection, site not specified (principal)
CPT/HCPCS: 81001; 87086

== ENCOUNTER 2025-04-01 18:33 | Inpatient (IN) | payer MEDICARE, BC, SELFPAY ==
--- OUTSIDE RECORDS SUMMARY | 2016-01-31 05:28 | XMS_ITS | Continuity of Care Document ---
Author Organization [facility] Address [address] [place] [address] Phone Care Team Providers Care Delivery Driver/Customer Service Name Role Phone Adebayo ROSEN, Vikas Merritt Unavaila ble Advance Directives Directive Yes / No Effective Date File Name No Information Encounters Encounter Description Practice Location Reason(s) For Visit Diagnoses Date Provider Providers Copied on Encounter [facility] , [address] [place], [address], tel:[phone] [facility] No Information Adebayo rocha [address] [place] [address], [id number]. tel:[phone] Family History Family Member Type Diagnosis Age At Onset No Information Payers Payer name Insurance type Covered libertarian ID Authoriza tion(s) No Information Social History Type Description Quantity Date Captured Comments Sex Female Smoking Status No Information Chief Complaint And Reason For Visit No Information Reason For Referral Reason For Referral No Information History Of Present Illness Encounter Date Complaint History Of Prese nt Illness No Information Functional Status Date Functional Assessmen t No Information Instructions Date Instruction Additional Infor mation No Information Assessments Type Assessment Date No Information Patient Care Teams Name Effective Dates (start - stop) Status Members No Information
--- OUTSIDE RECORDS SUMMARY | 2016-01-31 05:28 | XMS_ITS | Continuity of Care Document ---
Author Organization [facility] Address [address] [place] [address] Phone Care Team Providers Care Audio Installer Name Role Phone Adebayo ROSEN, Vikas Merritt Unavaila ble Advance Directives Directive Yes / No Effective Date File Name No Information Encounters Encounter Description Practice Location Reason(s) For Visit Diagnoses Date Provider Providers Copied on Encounter [facility] , [address] [place], [address], tel:[phone] [facility] No Information Adebayo rocha [address] [place] [address], [id number]. tel:[phone] Family History Family Member Type Diagnosis Age At Onset No Information Payers Payer name Insurance type Covered democrat ID Authoriza tion(s) No Information Social History [...]
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
--- OUTSIDE RECORDS SUMMARY | 2025-03-24 10:15 | XMS_ITS ---
Author Organization [facility] Address [address] [place] [id number] Care Team Providers Care Engraver Name Role Phone Allan Adamson Primary Care Provider REASON FOR VISIT check up Encounters Encounter Location Date Provider Diagnosis [facility] [address] [place] [id number] 03/24/2025 Allan Adamson Plan Of Treatment No Information Progress Notes * CAMPOS MONTGOMERYDOB:1940 ( 84 yo F)Acc No.[id number]:03/24/2025 Progress Notes Patient: CAMPOS PHAM Provider: Meli Adamson M.D. :1940 A ge:84 Y S ex:Female Date:03/24/2025 Address:[address] [facility] [id number] Subjective: * Chief Complaints: * 1 . Check up. * Medical History: Objective: * Vitals: Assessment: Plan: * Treatment: * Images: Billing Information: * Visit Code: * Procedure Codes: * Electronic signature of Julia Adamson MD on 04/01/2025 at 06:41 PM EDT Sign off status: Pending * Provider: Meli Adamson M.D. Date: 03/24/2025 Generated for Chucho forrester/Rubia/eTjennyfersmitting on: 04/01/2025 06:41 PM EDT
[2025-04-01] VITALS (18 sets, daily range): BP systolic 132–167; BP diastolic 50–87; PULSE 43–85; RESP 11–24; TEMP 36.8–36.9; O2SAT 79–98; BMI 32.5
--- NOTE | 2025-04-01 18:31 | ECG_ITS ---
APPROVED REPORT Exam: Resting ECG HR:62 bpm ECG Measurements Heart Rate 62 AXES RI 194 P 243 QRSd 136 QRS 71 QT 422 T 30 QTc 428 Conclusion Normal sinus rhythm rate of [address] or T wave changes concerning for ischemia Electronically signed by : Lazara Macedo, 04/02/2025 01:03:26
--- NOTE | 2025-04-01 18:33 | CT_ITS ---
PROCEDURE INFORMATION: Exam: CTA Chest With Contrast Exam date and time: 04/01/2025 6:45 PM Age: 84 years old Clinical indication: Other: Hypoxic TECHNIQUE: Imaging protocol: Computed tomographic angiography of the chest with contrast. Exam focused on the arteries. 3D rendering (Not supervised by radiologist): MIP and/or 3D reconstructed images were created by the technologist. Radiation optimization: All CT scans at this facility use at least one of these dose optimization techniques: automated exposure control; mA and/or kV adjustment per patient size (includes targeted exams where dose is matched to clinical indication); or iterative reconstruction. Contrast material: ISO 370; Contrast volume: 70 ml; Contrast route: INTRAVENOUS (IV); COMPARISON: CT ANGIO CHEST PE PROTOCOL 08/08/2024 8:21 AM FINDINGS: Pulmonary arteries: No central or segmental pulmonary arterial intraluminal filling defects identified. Aorta: Atherosclerotic calcification of aorta without aneurysm. Lungs: Interstitial prominence. Subtle Ankit B-lines. Right middle lobar perihilar opacity. Pleural spaces: Unremarkable. No pneumothorax. No pleural effusion. Heart: Unremarkable. No cardiomegaly. No pericardial effusion. Coronary arteries: Atherosclerotic calcification of left anterior descending coronary artery. Lymph nodes: Unremarkable. No enlarged lymph nodes. Bones/joints: Age-indeterminate T12 vertebral body height loss. No bony retropulsion. No acute osseous findings identified. Soft tissues: Unremarkable. Other findings: Image degradation from motion artifacts. IMPRESSION: 1. No central or segmental pulmonary arterial intraluminal emboli identified. 2. Interstitial prominence. Correlate with low-grade CHF/pulmonary edema. 3. Right middle lobar perihilar infiltration.
--- NOTE | 2025-04-01 18:33 | CT_ITS ---
PROCEDURE INFORMATION: Exam: CTA Head With Contrast, Arteriography Exam date and time: 04/01/2025 6:40 PM Age: 84 years old Clinical indication: Stroke-like symptoms; Other: Stroke symptoms; Additional info: Stroke alert TECHNIQUE: Imaging protocol: Computed tomographic angiography of the head with contrast. Exam focused on the arteries. 3D rendering (Not supervised by radiologist): MIP and/or 3D reconstructed images were created by the technologist. Radiation optimization: All CT scans at this facility use at least one of these dose optimization techniques: automated exposure control; mA and/or kV adjustment per patient size (includes targeted exams where dose is matched to clinical indication); or iterative reconstruction. Contrast material: ISO 370; Contrast volume: 80 ml; Contrast route: INTRAVENOUS (IV); COMPARISON: CT HEAD/BRAIN WO CON 04/01/2025 6:38 PM FINDINGS: ANTERIOR CIRCULATION: Right internal carotid artery: Calcified plaque causes mild stenosis of the right intracranial ICA. Right middle cerebral artery: No occlusion or significant stenosis. No aneurysm. Right anterior cerebral artery: No occlusion or significant stenosis. No aneurysm. Left internal carotid artery: Calcified plaque causes mild stenosis of the left intracranial ICA. Left middle cerebral artery: No occlusion or significant stenosis. No aneurysm. Left anterior cerebral artery: No occlusion or significant stenosis. No aneurysm. POSTERIOR CIRCULATION: Right vertebral artery: No occlusion or significant stenosis. No aneurysm. Left vertebral artery: No occlusion or significant stenosis. No aneurysm. Basilar artery: No occlusion or significant stenosis. No aneurysm. Right posterior cerebral artery: No occlusion or significant stenosis. No aneurysm. Left posterior cerebral artery: No occlusion or significant stenosis. No aneurysm. Brain: No definite mass, mass effect, or midline shift. Cerebral ventricles: No ventriculomegaly. Bones/joints: Unremarkable. No acute fracture. Soft tissues: Unremarkable. IMPRESSION: Mild stenosis of the intracranial ICAs bilaterally.
--- NOTE | 2025-04-01 18:33 | CT_ITS ---
PROCEDURE INFORMATION: Exam: CT Head Without Contrast Exam date and time: 04/01/2025 6:38 PM Age: 84 years old Clinical indication: Stroke-like symptoms; Other: Stroke symptoms TECHNIQUE: Imaging protocol: Computed tomography of the head without contrast. Radiation optimization: All CT scans at this facility use at least one of these dose optimization techniques: automated exposure control; mA and/or kV adjustment per patient size (includes targeted exams where dose is matched to clinical indication); or iterative reconstruction. Other technique: STROKE PROTOCOL was implemented. COMPARISON: No relevant prior studies available. FINDINGS: Tubes, catheters and devices: There is significant beam hardening artifact related to metallic densities external to the patient. Motion artifact also significantly degrades anatomic detail on portions this study. Brain: There are global involutional changes of the brain which are in keeping with the patient's age. Periventricular hypodensities are nonspecific but most likely reflect chronic microvascular ischemic disease. No acute intracranial hemorrhage, mass effect or midline shift is seen. Reece-white differentiation appears preserved. Cerebral ventricles: No ventriculomegaly. Paranasal sinuses: There is minimal sinus mucosal disease, with no air-fluid level identified. Mastoid air cells: There is no mastoid effusion detected. Bones: No calvarial fracture. Soft tissues: Unremarkable. IMPRESSION: 1. Artifactual degradation of the study. 2. No acute intracranial hemorrhage, mass effect or midline shift. 3. Involutional changes of the brain in keeping with the patient's age, with findings of chronic microvascular ischemic disease. ASSESSMENT: ASPECTS ([place] Stroke Program Early CT Score) is 10.
--- NOTE | 2025-04-01 18:33 | CT_ITS ---
PROCEDURE INFORMATION: Exam: CTA Neck With Contrast Exam date and time: 04/01/2025 6:40 PM Age: 84 years old Clinical indication: Stroke alert TECHNIQUE: Imaging protocol: Computed tomographic angiography of the neck with contrast. Exam focused on the cervical segments of the vasculature. 3D rendering (Not supervised by radiologist): MIP and/or 3D reconstructed images were created by the technologist. Radiation optimization: All CT scans at this facility use at least one of these dose optimization techniques: automated exposure control; mA and/or kV adjustment per patient size (includes targeted exams where dose is matched to clinical indication); or iterative reconstruction. Contrast material: ISOVUE 370; Contrast volume: 80 ml; Contrast route: INTRAVENOUS (IV); COMPARISON: CT ANGIO CHEST PE PROTOCOL 08/08/2024 8:21 AM FINDINGS: Right common carotid artery: No stenosis. No dissection or occlusion. Right internal carotid artery: No stenosis of the extracranial segment. No dissection or occlusion. Right external carotid artery: No occlusion or stenosis of the origin. Left common carotid artery: No stenosis. No dissection or occlusion. Left internal carotid artery: Calcified plaque causes mild stenosis of the left proximal ICA. Left external carotid artery: No occlusion or stenosis of the origin. Right vertebral artery: No stenosis. No dissection or occlusion. Left vertebral artery: No stenosis. No dissection or occlusion. Lymph nodes: There is mediastinal lymphadenopathy, with nodes measuring up to 2.1 cm in the short axis. These are nonspecific. Differential diagnosis includes inflammatory response, lymphangitic tumor metastatic disease. Soft tissues: Normal. No significant soft tissue swelling. Bones/joints: Spinal degenerative changes. Lungs: Patchy density in the right lobe may reflect atelectasis or pneumonitis. IMPRESSION: 1. Mild left ICA stenosis. 2. Patchy density in the right lobe may reflect atelectasis or pneumonitis. 3. Mediastinal lymphadenopathy, with differential diagnosis as above. REFERENCES: NASCET CRITERIA. The degree of stenosis in the cervical segment of the internal carotid artery is based on NASCET criteria. Normal is no stenosis. Mild is less than 50% stenosis. Moderate is 50-69% stenosis. Severe is 70% to 99% stenosis. Total occlusion is no detectable patent lumen.
--- OUTSIDE RECORDS SUMMARY | 2025-04-01 18:41 | XMS_ITS | Referral Summary ---
Author Organization [employer] ([place], [place], [place], [place]) Address [address] [place] [address] Care Team Providers Care Rider Ticket Worker Name Role Phone Unavailable Primary Care Provider [...]
--- OUTSIDE RECORDS SUMMARY | 2025-04-01 18:41 | XMS_ITS | Clinical Summary ---
Author Organization [facility] Address [address] [place] [address] Care Team Providers Care On Air Personality Name Role Phone Allan Adamson MD Primary Care Provider [phone] Allergies No known active allergies Medications lisinopril [...] (two) times a day. Active HYDROcodone-rikki taminophen (Durand) 5-325 MG tablet Active oxybutynin XL (Ditropan-XL) [...] of Treatment Not on file Insurance MEDICARE [facility] Care Teams On Air Personality Relationship Specialty Start Date End Date Allan Adamson MD [facility] [place] [address] PCP - General 01/06/21
--- OUTSIDE RECORDS SUMMARY | 2025-04-01 18:41 | XMS_ITS | Clinical Summary ---
Author Organization [employer] ([place], [place], [place], [place]) Address [address] [place] [address] Care Team Providers Care Reconciliation Manager Name Role Phone Unavailable Primary Care [...]
--- OUTSIDE RECORDS SUMMARY | 2025-04-01 18:41 | XMS_ITS ---
Author Organization Unknown Problems Date Problem Result OnSetDate Icd10 SnomedCode Severity Cu stom 04/24/2024 00:00:00 Stage 3b chronic kidney disease (CKD) N18.32 [id number] 05/14/2024 00:00:00 Other chronic pain G89.29 [id number] 05/14/2024 00:00:00 Sleep apnea, unspecified type G47.30 [id number] 05/14/2024 00:00:00 Essential (primary) hypertension I10 [id number] 05/14/2024 00:00:00 Gastroesophageal reflux disease, unspecified whether esophagitis present K21.9 [id number] 06/04/2024 00:00:00 Chronic obstructive pulmonary disease, unspecified COPD type J44.9 [id number] 06/30/2024 00:00:00 Left ankle joint deformity M21.962 [id number] 06/30/2024 00:00:00 Acute anemia D64.9 [id number] 06/30/2024 00:00:00 Inability to bear weight R26.89 [id number] 06/30/2024 00:00:00 Neuropathy G62.9 [id number] 07/16/2024 00:00:00 Acute on chronic respiratory failure with hypoxia J96.21 [id number] 07/25/2024 00:00:00 Atrial dysrhythmia I49.8 07/25/2024 00:00:00 Atrial ectopic I49.1 07/25/2024 00:00:00 Dry eyes, bilateral H04.123 07/25/2024 00:00:00 Leg cramps, sleep related G47.62 08/14/2024 00:00:00 Acute and chronic respiratory failure with hypoxia J96.21 [id number] 08/14/2024 00:00:00 COPD exacerbation J44.1 [id number] 08/14/2024 00:00:00 Pulmonary emphysema, unspecified emphysema type J43.9 [id number] 08/17/2024 00:00:00 Other abnormal and inconclusive findings on diagnostic imaging of breast R92.8 12/21/2024 00:00:00 Chronic respiratory failure, unspecified whether with hypoxia or hypercapnia J96.10 [id number]
--- OUTSIDE RECORDS SUMMARY | 2025-04-01 18:42 | XMS_ITS | Patient Health Record ---
[facility] Organization [facility] Address [address] [facility] [address] [place] [id number] Care Team Providers Care Arm Maker Name Role Phone Allan Adamson Primary Care Provider Ata Vences Unavailable [phone] Yvette Harris Unavailable [phone] Allergies No Known Allergies Results Component Value [...] 26 Performing Lab: Notes/Report: Test performed by [facility] [address] [place] [address] , [address], [place] [address] Tristian Amado MD, Shrimp Peeling Machine Tender CLIA: [id number] Sodium 142 135-145 mmol/L Potassium 5.0 3.5-5.3 mmol/L Chloride 99 97-108 mmol/L CO2 34 22-32 mmol/L Glucose 61 65-99 mg/dL BUN 51 8-23 mg/dL Creatinine 1.87 0.50-1.00 mg/dL Calcium 9.3 8.6-10.4 mg/dL eGFR by Creatinine 26 >59 mL/min/1.73m2 P-Hemoglobin A1C Reviewed date:12/22/2024 09:28:32 AM Interpretation:6.1 Performing Lab: Notes/Report: Test performed by [facility] [address] [place] [address] [place] [address] Tristian Amado MD, Shrimp Peeling Machine Tender CLIA: [id number] Hemoglobin A1C 6.1 <5.7 % The following HbA1c ranges recommended by the [place] [employer] (ADA) may be used as an aid in the diagnosis of diabetes mellitus. HbA1c Suggested Diagnosis >=6.5% Diabetic 5.7% - 6.4% Pre-Diabetic <5.7% Non-Diabetic P-Magnesium Reviewed date:12/22/2024 09:28:32 AM Interpretation: Normal Performing Lab: Notes/Report: Test performed by [facility] [address] [place] [address] [place] [address] Tristian Amado MD, Shrimp Peeling Machine Tender CLIA: [id number] Magnesium 1.9 1.6-2.4 mg/dL Estimated Average Glucose Reviewed date:12/22/2024 09:28:32 AM Interpretation:128 Performing Lab: Notes/Report: Test performed by [facility] [address] [place] [address] [place] [address] Tristian Amado MD, Shrimp Peeling Machine Tender CLIA: [id number] Estimated Average Glucose (eAG) 128 Estimated Average Glucose (eAG) is calculated using the equation eAG = (28.7 x HbA1c) - 46.7 based on the guidelines established by the ADA. If the patient has certain diseases including kidney disease, sickle cell anemia, thalassemia, or is taking medications such as dapsone, erythropoietin, or iron, eAG should not be evaluated. H-BMP Reviewed date:05/11/2024 09:23:49 AM Interpretation: Performing Lab: Notes/Report: NA 140 136-145 mmol/L K 4.1 3.5-5.1 mmoL/L CL 103 98-107 mmol/L CO2 35 22.0-30.0 mmol/L GAP 6.1 5-15 mEq/L BUN 18 7-17 mg/dl CREATT 0.90 0.52-1.04 mg/dl Delta: 1.20 on 09/14/24-1215 CRCLE 63 50-200 mL/min GFRAA 72 >60 ML/MIN Delta: 52 on 05/09/24 EGFR 60 >60 ml/min GLU 102 74-100 mg/dl CA 8.7 8.4-10.2 mg/dl H-CBC Reviewed date:07/13/2024 08:42:29 AM Interpretation: Performing [...] K/mm3 BA# 0.0 0-0.2 K/mm3 H-DIFF Reviewed date:07/13/2024 08:42:29 AM Interpretation: Performing Lab: Notes/Report: PIPE MANUAL DIFFERENTIAL MANUAL DIFF TCC 100 NEUT%M 90 42-76 % LYMPH%M 7 10-50 % MONO%M 3 2-9 % PLTE Normal RM Normal H-BMP Reviewed date:07/13/2024 08:42:30 AM Interpretation: Performing [...] 347 74-100 mg/dl CA 8.2 8.4-10.2 mg/dl H-CMP Reviewed date:07/13/2024 03:48:34 PM Interpretation: Performing [...] 1.1-1.8 ALP 74 38-126 U/L H-UA Reviewed date:03/15/2025 04:38:33 PM Interpretation: Performing Lab: Notes/Report: UCOL YELLOW Yellow UAPP CLEAR Clear UPH 5.5 5.0-8.5 USG 1.020 1.005-1.030 UPRO Negative Negative UGLU Negative Negative UKET Negative Negative UBLD Negative Negative UNIT Negative Negative UBIL Negative Negative UURO 0.2 0.2 EU/dl ULEU Negative Negative UMICU URINE MICROSCOPIC MICROSCOPIC URBC None 0-3 #/hpf UWBC Occasional 0-3 #/hpf USQEPI Occasional 0-5 #/hpf UBACT Trace NONE /lpf H-Urine Culture and Sensitiv ity Reviewed date:03/15/2025 04:38:33 PM Interpretation: Performing Lab: Notes/Report: CUU Multiple organisms, suggests contamination. CBC Venipuncture (in house) Reviewed date:04/29/2024 09:47:53 [...] 37 Performing Lab: Notes/Report: Test performed by [facility] [address] [place], [place] [address] , [address], [place] [address] Tristian Amado MD, Shrimp Peeling Machine Tender CLIA: [id number] Sodium 145 135-145 mmol/L Potassium 5.8 3.5-5.3 [...] Interpretation:21 Performing Lab: Notes/Report: Test performed by [facility] [address] [place], [place] [address] , [address], [place] [address] Tristian Amado MD, Shrimp Peeling Machine Tender CLIA: [id number] Iron 21 37-145 ug/dL P-Magnesium Reviewed date:04/29/2024 09:47:53 AM Interpretation:Normal Performing Lab: Notes/Report: Test performed by [facility] [address] , [address], [place] [address] Tristian Amado MD, Shrimp Peeling Machine Tender CLIA: [id number] Magnesium 1.8 1.6-2.4 mg/dL P-Basic Metabolic Panel (BMP ) Reviewed date:05/06/2024 08:56:47 AM Interpretation:bun 27, Cr 1.32, gfr 39 Performing Lab: Notes/Report: Test performed by [facility] [address] , [place] [address] Tristian Amado MD, Shrimp Peeling Machine Tender CLIA: [id number] Sodium 145 135-145 mmol/L Potassium 4.4 3.5-5.3 mmol/L Chloride 103 97-108 mmol/L CO2 32 22-32 mmol/L Glucose 97 65-99 mg/dL BUN 27 8-23 mg/dL Creatinine 1.32 0.50-1.00 mg/dL Calcium 8.7 8.6-10.4 mg/dL eGFR by Creatinine 39 >59 mL/min/1.73m2 H-CBC Reviewed date:05/11/2024 09:23:49 AM Interpretation: Performing [...] S- Susceptible I- Intermediate * Not on [facility] CUSPU Quantify Many RX CHAGN: R- Resistant S- Susceptible I- Intermediate * [facility]- [facility] S- Susceptible I- Intermediate * Not on [facility] RX CHANG: R- Resistant S- Susceptible I- Intermediate * Not on [facility] Staphylococcus aureu s: REACTION RX CHANG: R- Resistant S- Susceptible I- Intermediate * Not on [facility] Clindamycin <=0.5 S RX CHANG: R- Resistant S- Susceptible I- Intermediate * Not on [facility] Erythromycin <=0.5 S RX CHANG: R- Resistant S- Susceptible I- Intermediate * Not on [facility] Gentamicin <=1 S RX CHANG: R- Resistant S- Susceptible I- Intermediate * Not on [facility] Minocycline <=1 S RX CHANG: R- Resistant S- Susceptible I- Intermediate * Not on [facility] Oxacillin <=0.25 S RX CHANG: R- Resistant S- Susceptible I- Intermediate * Not on [facility] Rifampin <=0.5 S RX CHANG: R- Resistant S- Susceptible I- Intermediate * Not on [facility] Tetracycline <=0.5 S RX CHANG: R- Resistant S- Susceptible I- Intermediate * Not on [facility] Trimethoprim/Sulfame tho xazole <=0.5/9.5 S RX CHANG: R- Resistant S- Susceptible I- Intermediate * Not on [facility] Vancomycin 1 S RX CHANG: R- Resistant S- Susceptible I- Intermediate * Not on [facility] RX CHANG: R- Resistant S- Susceptible I- Intermediate * Not on [facility] H-CBC Reviewed date:05/11/2024 09:23:49 AM [...] 0.2 0.0-0.4 K/mm3 BA# 0.0 0-0.2 K/mm3 H-TSH [...] 1.1-1.8 ALP 67 38-126 U/L H-CBC Reviewed date:07/11/2024 09:06:38 AM Interpretation: Performing Lab: Notes/Report: WBC 7.6 4.8-10.8 K/mm3 Delta: 12.6 o n 07/08/24-911 RBC 4.33 4.20-5.40 M/mm3 HGB 10.3 12.2-16.2 [...] 8.6 8.4-10.2 mg/dl H-Sputum Culture with Gram S talat Reviewed date:07/15/2024 06:28:51 PM Interpretation: Performing Lab: Notes/Report: Cancel Comments Cancelled via OM: Order cancelled - Patient discharged Comment: Induce w/3ml NS neb tx if necessary H-CBC Reviewed date:07/14/2024 10:33:49 AM Interpretation: Performing [...] K/mm3 BA# 0.0 0-0.2 K/mm3 H-DIFF Reviewed date:07/14/2024 10:33:49 AM Interpretation: Performing [...] 183 74-100 mg/dl CA 7.6 8.4-10.2 mg/dl H-CBC Reviewed date:08/10/2024 03:13:24 PM [...] MG 2.0 1.6-2.3 mg/dl Delta: 0.8 on 08/08/24-699 H-CBC Reviewed date:08/11/2024 10:07:56 AM Interpretation: Performing [...] Performing Lab: Notes/Report: VANCT 14.2 5.0-10.0 ug/mL H-Vancomycin, Peak Reviewed date:08/12/2024 02:40:36 PM Interpretation: [...] date:12/24/2024 08:24:52 AM Interpretation: Performing Lab: Notes/Report: H-Urine Culture and Sensitiv ity Reviewed date:03/15/2025 04:38:33 PM Interpretation: Performing Lab: Notes/Report: CUU Multiple organisms, suggests contamination. H-COVIDPANEL Reviewed date:07/08/2024 02:44:12 PM Interpretation: Performing Lab: Notes/Report: Cancel Comments NEEDS REORDER NOT SENT H-COVIDPANEL Reviewed date:07/09/2024 12:34:39 PM Interpretation: Performing Lab: Notes/Report: No Is this the 1st COVID test for the patient? No Does the patient have COVID symptoms? Yes Is the patient employed in healthcare? No Is patient an [facility] employee? N Is patient currently hospitalized? Yes Is patient currently in ICU? No Date of Symptom onset Is patient a resident in a congregate care setting? No ADENOQIA Not Detected NotDetected CORONAHKU1 Not Detected NotDetected [id number] Not Detected NotDetected [id number] Not Detected NotDetected LEFYBHN12 Not Detected NotDetected METAPNEUMO Not Detected NotDetected RHINOENTER Not Detected NotDetected INFLUAPCR Not Detected NotDetected FLUAH1 Not Detected NotDetected [id number] Not Detected NotDetected INFLUAH3 Not Detected NotDetected [...] Not Detected NotDetected MYCOPLASM Not Detected NotDetected H-Urine Culture and Sensitiv ity Reviewed date:02/24/2025 02:29:45 PM Interpretation:suggests contamination Performing Lab: Notes/Report: suggests contamination Iron (Not yet reviewed by quinn escalante) Interpretation: Performing Lab: Notes/Report: Urine Culture and Sensitivit y Reviewed date:03/31/2025 02:29:25 PM Interpretation:No Growth Performing Lab: Notes/Report: No Growth H-UA Reviewed date:02/24/2025 04:52:18 PM Interpretation: Performing [...] 3-5 0-5 #/hpf UBACT Trace NONE /lpf UA Reviewed date:03/30/2025 01:01:11 PM Interpretation:Abnormal Performing Lab: Notes/Report: Abnormal CBC Reviewed date:04/01/2025 04:10:32 PM Interpretation: Performing Lab: Notes/Report: Medications Medication SIG (Take, Route, Frequency, Duration) Notes Start Date End Date Status tiZANidine HCl 4 MG 1 tablet at bedtime as needed Orally at HS prn Active Oxygen - per nasal cannula as directed 3 LPM Active Zithromax Z-Paul 250 MG as directed Orall y daily; Duration: 5 days 03/31/2025 Active Cefdinir 300 MG 1 capsule Orally twice a day; Duration: 7 days 03/31/2025 Active Eye Vitamins - as directed Orally [...] Once a day; Duration: 90 days Active Pregabalin 75 MG 1 cap(s) orally 2 times a day; Duration: 90 days 03/08/2025 Active Acetaminophen 500 MG 2 tablet as [...] by mouth once daily; Duration: 90 Active Montelukast Sodium 10 MG 1 tablet [...] Vaccine Route Administration Date Status Comme nts COVID 19 Moderna Unknown 10/03/2020 Administered COVID 19 Moderna Unknown 06/07/2021 Administered COVID 19 Moderna Unknown 12/05/2021 Administered Fluzone High Dose (65yr and older) IM Intramuscular 05/02/2012 Administered Fluzone High Dose (65yr and older) IM Intramuscular 05/03/2015 Administered Fluzone High Dose (65yr and older) IM Intramuscular 06/12/2016 Administered Fluzone High Dose (65yr and older) IM Intramuscular 05/21/2018 Administered Fluzone High Dose (65yr and older) Unknown 05/19/2021 Administered Fluzone High Dose (65yr and older) Unknown 05/17/2023 Administered Fluzone PF Quad (6-35 months) Unknown 05/18/2020 Administered PNEUMOVAX 23 VACCINE IM Intramuscular 06/12/2016 Administe red Prevnar (PCV13) IM Intramuscular 11/01/2014 Administered Shingrix IM Intramuscular 01/13/2019 Administered Shingrix IM Intramuscular 03/18/2019 Administered Tetanus Tdap-Adacel (over 7yrs) IM Intramuscular 10/29/2013 Administered xFluzone High Dose-private (65yr&older) IM Intramuscular 05/13/2013 Administered xFluzone High Dose-private (65yr&older) Unknown 05/14/2019 Administered XXXDexamethasone IM Intramuscular 02/01/2006 Administered Problems Problem Type SNOMED Code ICD Code Onset Dates Problem Status W/U Status Risk Notes Problem Hyperlipidaemia (65748249) Hyperlipemia (272.4) Active confirmed Problem Essential hypertension (43366934) Essential (primary) hypertension (I10) Active confirmed Problem Tear film insufficiency (50326227) Dry eyes, bilateral (H04.123) Active confirmed Problem History of malignant melanoma of the skin (598808368392) History of melanoma (Z85.820) Active confirmed Problem Essential hypertension (54286409) Essential hypertension (I10) Active confirmed Problem Hypertriglyceridemia (794431030) Hypertriglyceridemia (E78.1) Active confirmed Problem Long-term current us e 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 (642091835) 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 customer service current use 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 (Z79.01) Active confirmed Problem Obstructive sleep apnea (46102477) Obstructive sleep apnea (G47.33) Active confirmed Problem Hypokalemia (87872975) History of hypokalemia (Z86.39) Active confirmed Problem Mixed anxiety and depressive disorder (402869360) Depression with anxiety (F41.8) Active confirmed Problem Acute exacerbation o f chronic obstructive airways disease (076825720) COPD exacerbation (J44.1) Active confirmed Problem Mixed hyperlipidemia (311861343) Mixed hyperlipidemia (E78.2) Active confirmed Problem Hypomagnesemia (524593912) Hypomagnesemia (E83.42) Active confirmed Problem Allergic rhinitis (59519029) Allergic rhinitis, unspecified (J30.9) Active confirmed Problem Chronic respiratory failure (44196329) Chronic respiratory failure, unspecified whether with hypoxia or hypercapnia (J96.10) Active confirmed Problem Hkjkx-wb-clvajjm hypoxemic respiratory failure (76705070502262596) Acute and chronic respiratory failure with hypoxia (J96.21) Active confirmed Problem Abnormal findings on diagnostic imaging of breast (895536735) Other abnormal and inconclusive findings on diagnostic imaging of breast (R92.8) Active confirmed Problem History of polyp of colon (situation) (831365705) History of colon polyps (Z86.010) Active confirmed Problem Chronic pain (23895987) Other chronic pain (G89.29) Active confirmed Problem Pulmonary emphysema (13499526) Pulmonary emphysema, unspecified emphysema type (J43.9) Active confirmed Problem Primary osteoarthritis (325890059) Primary osteoarthritis involving multiple joints (M15.0) Active confirmed Problem Gastroesophageal reflux disease (disorder) (529799756) Chronic GERD (K21.9) Active confirmed Problem COPD - Chronic obstructive pulmonary disease (27092530) Chronic obstructive pulmonary disease, unspecified COPD type (J44.9) Active confirmed Problem Gastroesophageal reflux disease (003377324) Gastroesophageal reflux disease, esophagitis presence not specified (K21.9) Active confirmed Problem Neuropathy (599780896) Neuropathy (G62.9) Active confirmed Problem Allergic rhinitis (03872706) Allergic rhinitis (J30.9) Active confirmed Problem Lumbar spinal stenosis (33453594) Spinal stenosis, lumbar (M48.06) Active confirmed Problem Osteoporosis (70151689) Osteoporosis (M81.0) Active confirmed Problem Cardiac arrhythmia (999416762) Atrial dysrhythmia (I49.8) Active confirmed Problem Sleep apnea (41458812) Sleep apnea, unspecified type (G47.30) Active confirmed Problem Hyperlipidaemia (32411874) Hyperlipidemia, unspecified hyperlipidemia type (E78.5) Active confirmed Problem Polyneuropathy due t o type 2 diabetes mellitus (756130233) 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) Active confirmed Problem Kqfvf-wm-ywyruqw hypoxemic respiratory failure (41530766792000901) Acute on chronic respiratory failure with hypoxia (J96.21) Active confirmed Problem Atrial ectopic (265046047) Atrial ectopic (I49.1) Active confirmed Problem Low back pain (656463392) Chronic right-sided low back pain without sciatica (M54.5) Active confirmed Problem Type II diabetes mellitus without complication (815174920) Type 2 diabetes mellitus without complication, without long-term current use of insulin (E11.9) Active confirmed Problem Cramp in lower leg associated with rest (229015250) Leg cramps, sleep related (G47.62) Active confirmed Problem 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, choroid, 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 Problem Hypertensive urgency (748303855) Hypertensive urgency (I16.0) Active confirmed Problem Urge incontinence of urine (94779885) Urge incontinence of urine (N39.41) Active confirmed Problem Sleep apnea (09586655) Sleep apnea in adult (G47.30) Active confirmed Problem Arthritis of right hip (4779256498650751) Arthritis of right hip (M16.11) Active confirmed Problem Deformity of foot (finding) (807855451) Deformity of foot, unspecified laterality (M21.969) Active confirmed Problem Type II diabetes mellitus without complication (816611600) Type 2 diabetes mellitus without complication, unspecified whether mcc insulin use (E11.9) Active confirmed Problem Diastolic dysfunctio n (1970074) Diastolic dysfunction (I51.89) Active confirmed Problem Osteomyelitis (90815537) Osteomyelitis of toe of right foot (M86.9) Active confirmed Problem Gastroesophageal reflux disease (339861240) Gastroesophageal reflux disease, unspecified whether esophagitis present (K21.9) Active confirmed Problem Chronic kidney disease stage 3B (disorder) (920574583) Stage 3b chronic kidney disease (CKD) (N18.32) Active confirmed Problem Chronic kidney disease stage 3A (disorder) (199548033) Stage 3a chronic kidney disease (CKD) (N18.31) Active confirmed Problem Anemia (638398106) Acute anemia (D64.9) Active confirmed Problem Abnormal gait (88483689) Inability to bear weight (R26.89) Active confirmed Problem Left ankle joint deformity (M21.962) Active confirmed Vital Signs Heart Rate 54 /min 09/22/2024 Respiratory Rate 18 /min 08/25/2024 Blood pressure diastolic 74 mm Hg 12/21/2024 Height 65.50 in 12/21/2024 Blood pressure systolic 132 mm Hg 12/21/2024 Weight 000 lbs 12/21/2024 BMI 36.70 kg/m2 06/04/2024 Encounters Encounter Location Date Provider Diagnosis [facility] [address] [facility] [address] [place], [place] [id number] 04/24/2024 Allan Gatzke Peripheral edema R60 .0 ; Stage 3b chronic kidney disease (CKD) N18.32 ; Anemia, unspecified type D64.9 ; Hypomagnesemia E83.42 and SOB (shortness of breath) R06.02 [facility] [address] [facility] [address] [place], [place] [id number] 05/04/2024 Allan Gatzke Hypokalemia E87.6 [facility] [address] [facility] [address] [place], [place] [id number] 06/04/2024 Allan Gatzke Pain in left ankle a nd joints of left foot M25.572 ; Diastolic dysfunction I51.89 ; Hypoxia R09.02 and Chronic obstructive pulmonary disease, unspecified COPD type J44.9 [address] [place], [place] [id number] 07/21/2024 Yvette Harris Acute on chronic respiratory failure with hypoxia J96.21 ; Acute left ankle pain M25.572 ; Left ankle joint deformity M21.962 ; Left ankle instability M25.372 ; Hypoxia R09.02 ; Generalized weakness R53.1 ; Type 2 diabetes mellitus without complication, unspecified whether mcc insulin use E11.9 ; Essential (primary) hypertension [...] R53.81 and Leg cramps, sleep related G47.[address] [place] [id number] 08/25/2024 Yvette Harris Left ankle joint deformity M21.962 ; Acute anemia D64.9 ; Neuropathy G62.9 ; Hyperlipidemia, unspecified hyperlipidemia type E78.5 ; Hypomagnesemia E83.42 ; Acute on chronic respiratory failure with hypoxia J96.21 ; Acute left ankle pain M25.572 ; Left ankle instability M25.372 ; Hypoxia R09.02 ; Generalized weakness R53.1 ; Type 2 diabetes mellitus without complication, unspecified whether terminal gauger supervisor insulin use E11.9 ; Essential (primary) hypertension [...] R53.81 and Leg cramps, sleep related G47.62 [facility] [address] [place], [place] [id number] 09/22/2024 Allan Gatzke Essential hypertensi on I10 ; Chronic obstructive pulmonary disease, unspecified COPD type J44.9 ; Dry eyes, bilateral H04.123 ; Depression with anxiety F41.8 ; Gastroesophageal reflux disease, esophagitis presence not specified K21.9 ; Hypomagnesemia E83.42 ; Debility R53.81 ; Allergic rhinitis J30.9 ; Osteoporosis M81.0 and Obstructive sleep apnea G47.33 [facility] [address] [place] [id number] 12/21/2024 Allan Gatzke Type 2 diabetes rere itus without complication, without long-term current use of insulin E11.9 ; Chronic respiratory failure, unspecified whether with hypoxia or hypercapnia J96.10 ; Other hemorrhoids K64.8 ; BRBPR (bright red blood per rectum) K62.5 ; Hypomagnesemia E83.42 ; Stage 3b chronic kidney disease (CKD) N18.32 and Chronic obstructive pulmonary disease, unspecified COPD type J44.9 [facility] [address] [facility] [address] [place], [place] [id number] 04/01/2025 Allan Gatzke [facility] [address] [facility] [address] [place] [id number] 04/08/2024 Allan Gatzke [facility] [address] [facility] [address] [place] [id number] 04/29/2024 Allan Gatzke [facility] [address] [facility] [address] [place] [id number] 05/06/2024 Allan Gatzke [facility] [address] [place], [place] [id number] 05/27/2024 Allan Gatzke Essential hypertensi on I10 [facility] [address] [place], [place] [id number] 06/04/2024 Allan Gatzke [facility] [address] [place] [id number] 06/18/2024 Allan Gatzke [facility] [address] [place], [place] [id number] 08/04/2024 Allan Gatzke [facility] [address] [place] [id number] 08/10/2024 Allan Gatzke [facility] [address] [place] [id number] 08/21/2024 Allan Gatzke [facility] [address] [place] [id number] 09/07/2024 Allan Gatzke Diabetic polyneuropa thy associated with type 2 diabetes mellitus E11.42 [facility] [address] [place] [id number] 09/07/2024 Allan Gatzke Type 2 diabetes rere itus without complication, unspecified whether terminal gauger supervisor insulin use E11.9 ; Peripheral edema R60.9 and Debility R53.81 [facility] [address] [place] [id number] 09/08/2024 Allan Gatzke Type 2 diabetes rere itus without complication, unspecified whether terminal gauger supervisor insulin use E11.9 [facility] [address] [place] [id number] 09/22/2024 Allan Gatzke [facility] [address] [place] [id number] 09/24/2024 Allan Gatzke Allergic rhinitis J3 0.9 [facility] [address] [place] [id number] 11/04/2024 Allan Gatzke [facility] [address] [place], [place] [id number] 11/04/2024 Allan Gatzke Gastroesophageal ref lux disease, esophagitis presence not specified K21.9 and Diabetic polyneuropathy associated with type 2 diabetes mellitus E11.42 [facility] [address] [place] [id number] 11/05/2024 Allan Gatzke [facility] [address] [place] [id number] 11/12/2024 Allan Gatzke [facility] [address] [place] [id number] 11/13/2024 Ata IslasWilber Ru Essential hypertensi on I10 and Diabetic polyneuropathy associated with type 2 diabetes mellitus E11.42 [facility] [address] [place] [id number] 11/27/2024 Allan Gatzke [facility] [address] [place] [id number] 12/03/2024 Allan Gatzke Chronic obstructive pulmonary disease, unspecified COPD type J44.9 [facility] [address] [place] [id number] 12/18/2024 Allan Gatzke [facility] [address] [place] [id number] 12/21/2024 Allan Gatzke Urge incontinence of urine N39.41 and Hyperlipidemia, unspecified hyperlipidemia type E78.5 [facility] [address] [place] [id number] 12/22/2024 Allan Gatzke [facility] [address] [place] [id number] 12/23/2024 Allan Gatzke [facility] [address] [place], [place] [id number] 12/24/2024 Allan Gatzke [facility] [address] [place], [place] [id number] 12/25/2024 Allan Gatzke [facility] [address] [place], [place] [id number] 12/28/2024 Allan Gatzke [facility] [address] [place], [place] [id number] 12/30/2024 Allan Gatzke [facility] [address] [place], [place] [id number] 12/30/2024 Allan Gatzke [facility] [address] [place], [place] [id number] 01/04/2025 Allan Gatzke [facility] [address] [place], [place] [id number] 02/12/2025 Allan Gatzke [facility] [address] [place], [place] [id number] 02/24/2025 Allan Gatzke [facility] [address] [place], [place] [id number] 03/02/2025 Allan Gatzke [facility] [address] [place], [place] [id number] 03/08/2025 Allan Gatzke Diabetic polyneuropa thy associated with type 2 diabetes mellitus E11.42 [facility] [address] [place], [place] [id number] 03/25/2025 Allan Gatzke [facility] [address] [place], [place] [id number] 03/29/2025 Allan Gatzke [facility] [address] [place], [place] [id number] 03/31/2025 Allan Gatzke [facility] [address] [place], [place] [id number] 03/31/2025 Allan Gatzke Assessments Encounter Date Diagnosis (ICD Code) Assessment Notes Treatment Notes Treatment Clinical Notes Section Notes 04/24/2024 Stage 3b chronic kidney disease (CKD) (ICD-10 - N18.32) 04/24/2024 Peripheral edema (ICD-10 - R60.0) 05/04/2024 Hypokalemia (ICD-10 - E87.6) 05/27/2024 Essential hypertension (ICD-10 - I10) 06/04/2024 Pain in left ankle and joints of left foot (ICD-10 - M25.572) 06/04/2024 Diastolic dysfunction (ICD-10 - I51.89) 07/21/2024 Acute on chronic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
[2025-04-01] MEDS: IOPAMIDOL-370 (76%);100ML BOTTLE 150 ML IV (18:46)
[2025-04-01] MEDS: SODIUM CHLORIDE 0.9% 10ML SYR (RAD ONLY) 10 ML IV (18:46)
[2025-04-01] MEDS: 0.9 % SODIUM CHLORIDE 50 ML VIAL IV (18:46)
[2025-04-01] MEDS: IPRATROPIUM/ALBUTEROL 3 ML NEB 9 ML IH (18:47)
[2025-04-01 18:52] LABS: Hematocrit 39.4 % (37.0-47.0); Hemoglobin 11.3 g/dL (12.2-16.2); Immature Granulocytes % 2.6 %; Mean Corpuscular HGB Conc 28.7 g/dL (31.8-35.4); Mean Corpuscular Hemoglobin 26.8 pg (27.0-31.2); Mean Corpuscular Volume 93.6 fl (81-99); Nucleated Red Blood Cells % 0 %; Platelet Count 131 K/mm3 (142-424); Red Blood Count 4.21 M/mm3 (4.20-5.40); Red Cell Distribution Width-SD 60.2 fL; White Blood Count 9.1 K/mm3 (4.8-10.8)
[2025-04-01 18:59] LABS: Adenovirus,PCR Not Detected (NotDetected); Chlamydophila Pneumoniae, PCR Not Detected (NotDetected); Coronavirus 19, PCR Not Detected (NotDetected); Coronovirus HKU1,PCR Not Detected (NotDetected); Influenza A, PCR Not Detected (NotDetected); Influenza AH1, 2009 Not Detected (NotDetected); Influenza AH1, PCR Not Detected (NotDetected); Influenza AH3,PCR Not Detected (NotDetected); Influenza B, PCR Not Detected (NotDetected); Mycoplasma Pneumoniae, PCR Not Detected (NotDetected); Parainfluenza 1, PCR Not Detected (NotDetected); Parainfluenza 2, PCR Not Detected (NotDetected); Parainfluenza 3, PCR Not Detected (NotDetected); Parainfluenza 4, PCR Not Detected (NotDetected)
[2025-04-01 19:00] LABS: Lactate Venous 1.4 mmol/L (0.4-2.0); VBG HCO3 35.0 mmol/L (23-30); VBG PH 7.31 mmol/L (7.31-7.41); VBG PO2 30.8 mmol/L (28-40)
[2025-04-01 19:01] LABS: VBG PCO2 70.8 mmol/L (35-51)
[2025-04-01 19:02] LABS: Albumin Level 4.0 g/dl (3.5-5.0); Chloride 101 mmol/L (98-107); Potassium 5.0 mmoL/L (3.5-5.1); Sodium 146 mmol/L (136-145)
[2025-04-01 19:04] LABS: Blood Urea Nitrogen 53 mg/dl (7-17); Creatinine Clearance Estimated 39 mL/min (50-200); Creatinine,Serum 1.40 mg/dl (0.52-1.04); Estimated Glomerular Filt Rate 36 ml/min (>60); GFR (African American) 43 ML/MIN (>60); INR 1.11 (0.9-1.1); Prothrombin Time 12.2 seconds (10.1-12.5)
[2025-04-01 19:05] LABS: Alanine Aminotransferase 11 U/L (12-78); Alkaline Phosphatase 84 U/L (38-126); Aspartate Amino Transferase 27 U/L (14-36); Bilirubin,Total 0.4 mg/dl (0.2-1.3); Calcium 9.9 mg/dl (8.4-10.2); Glucose 137 mg/dl (74-100); Magnesium 1.7 mg/dl (1.6-2.3)
[2025-04-01 19:12] LABS: Anion Gap 11.0 mEq/L (5-15); Carbon Dioxide 39 mmol/L (22.0-30.0)
[2025-04-01 19:19] LABS: Troponin I < 0.01 ng/ml (0.00-0.034)
[2025-04-01] MEDS: METHYLPREDNISOLONE SOD SUCC 125MG VIAL 125 MG IV (19:22)
[2025-04-01] MEDS: LACTATED RINGERS 1000ML 1,000 ML 999 ML IV (19:22)
[2025-04-01 19:23] LABS: Free T4 (Free Thyroxine) 1.29 ng/dl (0.78-2.19)
[2025-04-01 19:36] LABS: Thyroid Stimulating Hormone 1.11 uIU/mL (0.465-4.68)
--- NOTE | 2025-04-01 19:41 | HMH.EDGENADL ---
Discharge Plan Disposition Patient Disposition: Admitted Condition: Fair Clinical Impressions Clinical Impression: Acute exacerbation of chronic obstructive pulmonary disease, Pneumonia, RICHIE (acute kidney injury) Discharge ED Provider: Lazara Macedo Adult HPI General Chief complaint: Neuro Symptoms/Deficit Stated complaint: Confusion Time Seen by Provider: 04/01/25 18:33 Mode of Arrival: Ambulatory Source of Information: Patient Description of Symptoms (Recalled from ER Triage Doc. by RN): Pt presents via [facility] from [facility] as a stroke alert. Per staff patient is normally AO x4, but has been altered all day. Staff was unable to provide a LKN. Per staff patient has been incontinent today, had right sided droop, and slurred. speech. BGL 160, pt on 4L o2 which is baseline History of Present Illness HPI narrative: Patient is an 84-year-old female who presented to the emergency department from [place] with concern for a stroke alert. Per EMS, had increased lethargy over the last several days, nursing facility had reported a possible right-sided facial droop. Nursing facility was unable to report last known normal. They felt that her speech was also worse than her usual. Patient does have a history of COPD, wears 4 L nasal cannula at baseline. Patient had a normal blood sugar with EMS. At this time, patient denies any symptoms. Patient reports mild shortness of breath but no chest pain. Patient denies any abdominal pain nausea vomiting. Does report some mild decreased oral intake. 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 Related Data Home Medications ?Medication ?Instructions ?Recorded ?Confirmed metformin 500 mg tablet 500 mg PO BIDWMEAL 03/06/18 04/01/25 montelukast 10 mg tablet 10 mg PO DAILY 03/06/18 04/01/25 simvastatin 20 mg tablet 20 mg PO HS 03/06/18 04/01/25 escitalopram oxalate 20 mg tablet 20 mg PO DAILY 11/10/23 04/01/25 fluticasone 250 mcg-salmeterol 50 1 ea inhalation BID 11/10/23 09/29/24 mcg/dose blistr powdr for inhalation (Wixela Inhub) oxybutynin chloride 10 mg 20 mg PO DAILY 11/10/23 04/01/25 tablet,extended release 24 hr esomeprazole magnesium 40 mg 40 mg PO DAILY 05/09/24 04/01/25 capsule,delayed release metoprolol succinate 50 mg 50 mg PO DAILY 05/09/24 04/01/25 tablet,extended release 24 hr tizanidine 2 mg tablet 2 mg PO HSP PRN Muscle Pain 05/09/24 04/01/25 azelastine 137 mcg (0.1 %) nasal 2 spray intranasal DAILY 05/12/24 09/29/24 spray fluticasone propionate 50 2 spray intranasal DAILY 05/12/24 04/01/25 mcg/actuation nasal spray,suspension calcium carbonate (Calcium 600) 600 mg PO DAILY 07/08/24 04/01/25 glucosamine sulfate 2KCl 1,000 mg 1,000 mg PO DAILY 07/08/24 04/01/25 tablet mecobalamin (vitamin B12) 1,000 1,000 mcg PO DAILY 07/08/24 04/01/25 mcg chewable tablet (B12 Active) multivitamin 1 tab PO DAILY 07/08/24 04/01/25 vit C 250 mg-vit E 90 mg-zinc 40 1 tab PO BID 07/08/24 09/29/24 mg-copper 1 [id number] capsule (PreserVision AREDS-2) furosemide 40 mg tablet 40 mg PO DAILY 08/08/24 04/01/25 cefdinir 300 mg capsule 300 mg PO BID 04/01/25 04/01/25 Previous Rx's ?Medication ?Instructions ?Recorded irbesartan 300 mg tablet 300 mg PO DAILY #30 tabs 02/25/24 dapagliflozin propanediol 10 mg 10 mg PO DAILY #30 tabs 08/14/24 tablet (Farxiga) pregabalin 75 mg capsule (Lyrica) 75 mg PO BID #60 caps 08/14/24 spironolactone 50 mg tablet 50 mg PO DAILY #30 tabs 08/14/24 albuterol sulfate 90 mcg/actuation 2 inh inhalation Q6H PRN shortness 09/29/24 aerosol inhaler of breath or wheezing 90 days #8.5 grams fluticasone 250 mcg-salmeterol 50 1 inh inhalation BID 90 days #180 09/29/24 mcg/dose blistr powdr for ea inhalation (Wixela Inhub) fluticasone propionate 50 2 spray intranasal DAILY 90 days 09/29/24 mcg/actuation nasal #16 grams spray,suspension (Flonase Allergy Relief) montelukast 10 mg tablet 10 mg PO QPM 90 days #90 tabs 09/29/24 Allergies Allergy/AdvReac Type Severity Reaction Status Date / Time pollen extracts (POLLEN Allergy Intermediate ASTHMA Verified 09/29/24 15:33 EXTRACTS) azithromycin Allergy Redness of Verified 04/01/25 22:47 Skin ceftriaxone (From Rocephin) Allergy Redness of Verified 04/01/25 22:48 Skin PFSH [facility] Disclaimer: The information contained in this section may have been updated after the patient was seen, as this information can be updated by other users. Medical History (Updated 04/01/25 @ 20:59 by Lazara Macedo DO) Asthma Fibrosis of lung Decreased diffusion capacity of lung Pulmonary emphysema Chronic respiratory failure with hypoxia Recurrent pneumonia Acute and chronic respiratory failure with hypoxia Lumbar radiculopathy Degenerative disc disease, lumbar Paratracheal lymphadenopathy CAP (community acquired pneumonia) RICHIE (acute kidney injury) Hypertensive urgency Elevated brain natriuretic peptide (BNP) level Hypertensive emergency CKD (chronic kidney disease) stage 3, GFR 30-59 ml/min Pneumonia Allergic rhinitis Colon polyps Hemorrhoids, internal Osteoporosis Herpes zoster Closed left ankle fracture Closed left hip fracture Lumbar spinal stenosis Lumbar compression fracture Ocular melanoma COPD (chronic obstructive pulmonary disease) Mediastinal lymphadenopathy Sleep apnea Hyperlipidemia Neuropathy Depression GERD (gastroesophageal reflux disease) Arthritis Hypertension Diabetes Surgical History History of right knee joint replacement History of left knee replacement History of left hip replacement History of left ankle joint replacement 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 History of arthroplasty of right knee History of appendectomy Family History Other Heart attack Social History (Updated 04/02/25 @ 00:46 by Brittany Velazquez RN) Smoking Status: Never smoker alcohol intake: never substance use type: denies use current occupational status: other Travel in the last 8 weeks?: None household members: none caffeine: Yes Have you lived/traveled outside US in past 30 days?: No Contact w/someone who lives/traveled outside US past 30 days?: No Exposure to someone with infectious disease in past 14 days?: No Do you have a fever (greater than 100.4 F or 38 C)?: No Have you tested positive for COVID-19?: No Exposed to someone with COVID-19 in past 14 days?: No Do you have a sore throat?: No Do you have a cough?: No Do you have any weakness?: No Do you have any diarrhea?: No Are you experiencing any unusual bleeding?: No Do you have any muscle aches/pain?: No Do you have any abdominal pain?: No Are you experiencing loss of taste or smell?: No Other Medical History Have you received the Flu Vaccine for this season: No Have you received the Pneumonia Vaccine: Yes ROS Obtained: Yes All systems reviewed & no additional complaints except as documented and Yes Systems reviewed as appropriate & no additional complaints except as documented Physical Exam General General appearance: alert and in no apparent distress Head Head exam: atraumatic, normocephalic and normal inspection Eye Eye exam: Present normal appearance, PERRL and EOMI; Absent scleral icterus ENT ENT exam: Present normal exam and normal external ear exam Neck Neck exam: Present normal inspection and full ROM Chest Chest inspection: Present normal inspection and symmetric chest wall rise Respiratory Respiratory exam: Present normal lung sounds bilaterally, wheezes and other (Decreased breath sounds bilaterally); Absent respiratory distress Cardiovascular Cardiovascular exam: Present regular rate, normal rhythm and normal heart sounds Abdominal Exam Abdominal exam: Present soft and distention; Absent tenderness, guarding or rebound Extremities Exam Extremities exam: Present normal inspection and full ROM Back Exam Back exam: Present normal inspection and full ROM Neurological Exam Neurological exam: Present alert, oriented X3 and other (NIH 2, no slurred speech, no facial droop, 5 out of 5 strength in bilateral upper extremities, full strength in right lower extremity, decrease strength in the left lower extremity was at patient's baseline, sensation intact, normal [id number], vision intact) Psychiatric Psychiatric exam: Present normal affect and normal mood Skin Skin exam: Present warm and dry Medical Decision Making Medical Records Medical records reviewed: Yes I reviewed the patient's medical records. Screening: Per USPSTF and CDC recommendations, given the prevalence of disease in our region, it is our hospital?s policy to screen for HIV and viral Hepatitis for all patients aged 18 and over and those with ongoing risk factors. Gabriele Inquiry Pt receiving controlled substance: No Vital Signs: 04/01/25 18:31 04/01/25 18:33 04/01/25 18:51 Temperature 98.3 F Temperature Source Oral Pulse Rate 53 L 60 Pulse Rate [Right] 54 L Respiratory Rate 20 21 Blood Pressure 136/56 L 142/54 H Blood Pressure [Right Arm] 148/54 H Blood Pressure Mean Blood Pressure Mean [Right Arm] 85 Blood Pressure Source [Right Arm] Automatic Cuff Blood Pressure Position [Right Arm] Sitting 02 Sat by Pulse Oximetry 96 79 L 98 Oxygen Delivery Method Room Air Fraction of Inspired Oxygen 04/01/25 18:59 04/01/25 19:01 04/01/25 19:30 Temperature Temperature Source Pulse Rate 61 55 L 60 Pulse Rate [Right] Respiratory Rate 20 Blood Pressure 132/50 L Blood Pressure [Right Arm] Blood Pressure Mean 77 Blood Pressure Mean [Right Arm] Blood Pressure Source [Right Arm] Blood Pressure Position [Right Arm] 02 Sat by Pulse Oximetry 98 Oxygen Delivery Method Fraction of Inspired Oxygen 04/01/25 19:31 04/01/25 20:00 04/01/25 20:30 Temperature Temperature Source Pulse Rate 62 58 L 52 L Pulse Rate [Right] Respiratory Rate 16 17 11 L Blood Pressure 146/59 H 158/60 H 138/50 L Blood Pressure [Right Arm] Blood Pressure Mean 74 80 Blood Pressure Mean [Right Arm] Blood Pressure Source [Right Arm] Blood Pressure Position [Right Arm] 02 Sat by Pulse Oximetry 98 98 93 L Oxygen Delivery Method Fraction of Inspired Oxygen 04/01/25 20:51 04/01/25 21:00 04/01/25 21:05 Temperature Temperature Source Pulse Rate 52 L Pulse Rate [Right] 55 L Respiratory Rate 17 Blood Pressure 146/61 H Blood Pressure [Right Arm] Blood Pressure Mean Blood Pressure Mean [Right Arm] Blood Pressure Source [Right Arm] Blood Pressure Position [Right Arm] 02 Sat by Pulse Oximetry 93 L 95 Oxygen Delivery Method BiPAP Fraction of Inspired Oxygen 45 35 Lab Data Lab results reviewed: Yes I reviewed the patient's lab results. Lab Results 04/01/25 18:29: WBC 9.1, RBC 4.21, Hgb 11.3 L, Hct 39.4, MCV 93.6, MCH 26.8 L, MCHC 28.7 L, RDW 17.5, Plt Count 131 L, MPV 10.7 H, Neut % (Auto) 74.4, Lymph % (Auto) 12.1, [place] % (Auto) 8.7, Eos % (Auto) 1.8, Baso % (Auto) 0.4, Neut # (Auto) 6.8, Lymph # (Auto) 1.1, [place] # (Auto) 0.8, Eos # (Auto) 0.2, Baso # (Auto) 0.0, PT 12.2, INR 1.11 H, VBG pH 7.31, VBG pCO2 70.8 H, VBG pO2 30.8, VBG HCO3 35.0 H, VBG Total CO2 37.2 H, VBG O2 Saturation 61.7, VBG Base Excess 8.8 H, VBG Lactic Acid 1.4, Sodium 146 H, Potassium 5.0, Chloride 101, Carbon Dioxide 39 H, Anion Gap 11.0, BUN 53 H, Creatinine 1.40 H, Estimated Creat Clear 39, Estimated GFR 36 L, Est GFR ( Amer) 43 L, Glucose 137 H, Calcium 9.9, Magnesium 1.7, Total Bilirubin 0.4, AST 27, ALT 11 L, Alkaline Phosphatase 84, Troponin I < 0.01, Total Protein 7.4 D, Albumin 4.0, Globulin 3.4 H, Albumin/Globulin Ratio 1.2, TSH 1.11, Free T4 1.29 04/01/25 18:52: Chlamy pneumoniae PCR Not detected, Adenovirus (PCR) Not detected, B. pertussis DNA (PCR) Not detected, Coronavirus OC43 (PCR) Not detected, Coronavirus HKU1 (PCR) Not detected, Coronavirus 229E (PCR) Not detected, SARS-CoV-2 (PCR) Not detected, Coronavirus NL63 (PCR) Not detected, Human Metapneumovir PCR Not detected, Influenza A (H1) PCR Not detected, Influ A (H1N1/09) PCR Not detected, Influenza A (H3) PCR Not detected, Influenza Type A (PCR) Not detected, Influenza Type B (PCR) Not detected, M. pneumoniae (PCR) Not detected, Parainfluenza 1 (PCR) Not detected, Parainfluenza 2 (PCR) Not detected, Parainfluenza 3 (PCR) Not detected, Parainfluenza 4 (PCR) Not detected, RSV (PCR) Not detected, Entero/Rhino (PCR) Not detected 04/01/25 19:30: Urine Color Yellow, Urine Appearance Clear, Urine pH 6.0, Ur Specific Burt 1.010, Urine Protein Negative, Urine Glucose (UA) Negative, Urine Ketones Negative, Urine Blood Negative, Urine Nitrate Negative, Urine Bilirubin Negative, Urine Urobilinogen 0.2, Ur Leukocyte Esterase Negative, Urine RBC None, Urine WBC Occasional, Ur Squamous Epith Cells Occasional, Urine Bacteria Trace 04/01/25 20:26: VBG pH 7.26 L, VBG pCO2 74.9 H, VBG pO2 30.4, VBG HCO3 32.9 H, VBG Total CO2 35.2 H, VBG O2 Saturation 56.3, VBG Base Excess 5.9 H, VBG Lactic Acid 1.9 04/01/25 18:29 04/01/25 18:29 Orders (Tests/Meds): ED MEDICATIONS Generic Name Dose Route Start Last Admin Trade Name Freq PRN Reason Stop Dose Admin Acetaminophen 650 mg 04/01/25 21:17 Acetaminophen 325mg Tab PO 05/01/25 21:16 Q6HP PRN Fever or Mild Pain (1-3) Diphenhydramine HCl 25 mg 04/01/25 21:08 04/01/25 21:09 Diphenhydramine 50mg/Ml Vial IV 04/01/25 21:09 25 mg ONCE ONE Administration Ceftriaxone Sodium 2 gm/ 100 mls @ 200 mls/hr 04/01/25 20:00 04/01/25 20:12 Sodium Chloride IV 04/11/25 19:59 200 mls/hr Q24H GALA Administration Azithromycin 500 mg/ Sodium 250 mls @ 250 mls/hr 04/01/25 20:00 04/01/25 20:46 Chloride IV 04/11/25 19:59 250 mls/hr Q24H GALA Administration Ibuprofen 600 mg 04/01/25 21:17 Ibuprofen 600 Mg Tablet PO 05/01/25 21:16 Q6HP PRN Fever or Mild Pain (1-3) Irbesartan 300 mg 04/02/25 09:00 Irbesartan 300mg Tablet PO 05/02/25 08:59 DAILY GALA Metformin HCl 500 mg 04/02/25 07:30 Metformin 500mg Tablet PO 05/02/25 07:29 BIDWMEAL GALA Metoprolol Succinate 50 mg 04/02/25 09:00 Metoprolol Succinate Xl 50mg Tablet PO 05/02/25 08:59 DAILY GALA Discontinued Medications Generic Name Dose Route Start Last Admin Trade Name Rajesh PRN Reason Stop Dose Admin Albuterol/Ipratropium 9 ml 04/01/25 18:37 04/01/25 18:47 Ipratropium/Albuterol 3 Ml Neb IH 04/01/25 18:38 9 ml ONCE ONE Administration Lactated Ringer's 1,000 mls @ 999 mls/hr 04/01/25 19:09 04/01/25 19:22 Lactated Ringer's 1000 Ml Bag IV 04/01/25 20:09 999 mls/hr .Q1H1M ONE Administration Iopamidol 150 ml 04/01/25 18:45 04/01/25 18:46 Iopamidol-370 (76%);100ml Bottle IV 04/01/25 18:46 150 ml ONCE ONE Administration Methylprednisolone Sodium Succinate 125 mg 04/01/25 19:09 04/01/25 19:22 Methylprednisolone Sod Succ 125mg Vial IV 04/01/25 19:10 125 mg ONCE ONE Administration Methylprednisolone Sodium Succinate 125 mg 04/01/25 22:15 04/01/25 22:24 Methylprednisolone Sod Succ 125mg Vial IV 04/01/25 22:16 Not Given ONCE ONE Sodium Chloride 50 ml 04/01/25 18:45 04/01/25 18:46 0.9 % Sodium Chloride 50 Ml Vial IV 04/01/25 18:46 50 ml ONCE ONE Administration Sodium Chloride 10 ml 04/01/25 18:45 04/01/25 18:46 Sodium Chloride 0.9% 10ml Syr (Rad Only) IV 04/01/25 18:46 10 ml ONCE ONE Administration ORDERS Category Date Time Status CT angio chest PE protocol Stat Cat Scan 04/01/25 18:[address] angio head Stat Cat Scan 04/01/25 18:[address] angio neck Stat Cat Scan 04/01/25 18:[address] head/brain wo con Stat Cat Scan 04/01/25 18:33 Completed CBC w/Auto Diff [Complete Blood Count Auto Diff] Stat Lab 04/01/25 18:29 Completed CMP [Comprehensive Metabolic Panel] Stat Lab 04/01/25 18:29 Completed Free T4 (Free Thyroxine) Stat Lab 04/01/25 18:29 Completed Full Resp Panel w/COVID ([facility]) Routine Lab 04/01/25 18:52 Completed MAG [Magnesium] Stat Lab 04/01/25 18:29 Completed PT INR [Prothrombin Time INR] Stat Lab 04/01/25 18:29 Completed Thyroid Stimulating Hormone Stat Lab 04/01/25 18:29 Completed Trop I [Troponin I] Stat Lab 04/01/25 18:29 Completed Troponin I Q3H Lab 04/01/25 22:08 Completed Troponin I Q3H Lab 04/02/25 00:45 Ordered Urinalysis and Microscopic Stat Lab 04/01/25 19:30 Completed Blood Culture Stat Micro 04/01/25 20:28 Received VBG [Venous Blood Gas] Stat RT 04/01/25 18:33 Ordered VBG [Venous Blood Gas] Stat RT 04/01/25 20:26 Completed Medical Decision Narrative: Patient is an 84-year-old female with a past medical history of COPD, heart failure who presented to the emergency department from her nursing facility with concern for possible stroke and lethargy. Patient was made a stroke alert by EMS on arrival. Patient was also found to be hypoxic on arrival, patient was requiring a nonrebreather found to be 80% on her baseline 4 L nasal cannula. Differential includes but not limited to: Dehydration, electrolyte abnormalities, intracranial pathology including hemorrhage versus stroke, infectious etiology such as pneumonia, COPD exacerbation, hypercapnia, UTI, PE, amongst others. Patient's labs were reviewed and interpreted by myself and patient's CBC showed no leukocytosis, hemoglobin was stable, INR was mildly elevated at 1.11, VBG showed mild acidosis at 7.31 with hypercapnia with a CO2 of 70. Patient was mildly hypernatremic at 146, had a mild RICHIE with a creatinine of 1.4. Patient's UA showed no evidence of infection. Patient CT scans including CT head, CTA head and neck and CT chest showed no intracranial ischemia, no LVO, no increased intracranial hemorrhage. CT chest showed possible edema and concern for perihilar infiltrate. Given that patient's CT scan showed no intracranial hemorrhage or ischemia, I had low concern for stroke at this time after further discussion with the nursing facility stating that patient symptoms were only lethargy over the last 3 days with unknown last known normal. Patient was outside the window for thrombolytics or further intervention. Patient was given 3 DuoNebs given her decreased breath sounds as well as Solu-Medrol with concern for COPD exacerbation. Given patient CT scan showed possible perihilar infiltrate, patient was given Rocephin as well as azithromycin for COPD coverage as well as community-acquired pneumonia. Patient's repeat VBG was obtained which showed worsening acidosis and increasing CO2 therefore patient was placed on BiPAP. Hospital medicine was consulted and patient was admitted to their service for COPD exacerbation, hypercapnic respiratory failure as well as pneumonia and RICHIE. Critical Care Critical Care Time Critical Care Time: Yes Attestation: On 04/01/25, the high probability of a clinically significant, sudden or life threatening deterioration of the following system(s) required my full and direct attention, intervention and personal management. The time I documented below is in addition to time spent performing reported procedures but includes the following listed in this critical care notation. Total Time Total Critical Care Time: 30
[2025-04-01 19:47] LABS: Microscopic, Urine URINE MICROSCOPIC (MICROSCOPIC)
[2025-04-01 19:58] LABS: Bilirubin,Urine Negative (Negative); Color,Urine YELLOW (Yellow); Glucose,Urine (UA) Negative (Negative); Ketones,Urine Negative (Negative); Leukocyte Esterase,Urine Negative (Negative); PH,Urine 6.0 (5.0-8.5); Protein,Urine Negative (Negative); Specific Gravity, Urine 1.010 (1.005-1.030); Urobilinogen,Urine 0.2 EU/dl (0.2)
[2025-04-01 20:32] LABS: Lactate Venous 1.9 mmol/L (0.4-2.0); VBG HCO3 32.9 mmol/L (23-30); VBG PH 7.26 mmol/L (7.31-7.41); VBG PO2 30.4 mmol/L (28-40)
[2025-04-01 20:33] LABS: Bacteria,Urine Trace /lpf; Squamous Epithelial Cell,Urine Occasional #/hpf (0-5); WBC,Urine Occasional #/hpf (0-3)
[2025-04-01 20:35] LABS: VBG PCO2 74.9 mmol/L (35-51)
--- NOTE | 2025-04-01 20:35 | PC.NURSE ---
repeat vbg results given to
[2025-04-01 20:44] LABS: Albumin/Globulin Ratio 1.2 (1.1-1.8); Globulin 3.4 g/dL (1.3-3.2); Total Protein,Serum 7.4 g/dl (6.3-8.2)
[2025-04-01] MEDS: AZITHROMYCIN 500 MG in 0.9 % SODIUM CHLORIDE 250 ML 250 MG IV (20:46)
--- NOTE | 2025-04-01 21:02 | PC.NURSE ---
report given to NEO Baker. patient being taken to ICU
--- NOTE | 2025-04-01 21:02 | PC.NURSE ---
redness noted on patients coccyx/sacrum
--- NOTE | 2025-04-01 21:08 | PC.NURSE ---
RT notifies staff of redness to left arm and pt complains of itching. Pt denies other complaints. Remington ROSEN notified verbal ordered received for benadryl 25mg IV to be given and zithromax paused. Pt being prepared for transport to assigned room by giovanna LARSON
--- NOTE | 2025-04-01 21:09 | PC.NURSE ---
red rash noted in patients left hand Iv after the start of zithromax IV. antibiotic stopped. VO given by MD to give 25mg IV benadryl now. Verbal orders repeated and correct. 25 mg IV benadryl administered.
--- OUTSIDE RECORDS SUMMARY | 2025-04-01 21:29 | XMS_ITS | Clinical Summary ---
Author Organization [facility] Address [address] [place] [address] Care Team Providers Care Coal Trammer Name Role Phone Allan Adamson MD Primary Care Provider [phone] Allergies No known active allergies Medications lisinopril [...] (two) times a day. Active HYDROcodone-rikki taminophen ([place]) 5-325 MG tablet Active oxybutynin XL (Ditropan-XL) [...] of Treatment Not on file Insurance MEDICARE [facility] Care Teams Coal Trammer Relationship Specialty Start Date End Date Allan Adamson MD [facility] [place] [address] PCP - General 01/06/21
--- OUTSIDE RECORDS SUMMARY | 2025-04-01 21:29 | XMS_ITS | Clinical Summary ---
Author Organization [facility] ([place] Address [address] [place] [address] Care Team Providers Care Radio Officer Name Role Phone Unavailable Primary Care Provider [...]
--- OUTSIDE RECORDS SUMMARY | 2025-04-01 21:29 | XMS_ITS | Referral Summary ---
Author Organization [employer] ([place]) Address [address] [place] [address] Care Team Providers Care Water Project Engineer Name Role Phone Unavailable Primary Care Provider [...]
--- NOTE | 2025-04-01 21:53 | ECG_ITS ---
APPROVED REPORT Exam: Resting ECG HR:56 bpm ECG Measurements Heart Rate [address] 208 P -69 QRSd 139 QRS 70 QT 448 T 31 QTc 439 Conclusion SINUS BRADYCARDIA WITH FREQUENT SUPRAVENTRICULAR PREMATURE COMPLEXES RIGHT BUNDLE BRANCH BLOCK [120+ ms QRS DURATION, UPRIGHT V1, 40+ ms S IN I/aVL/V4/V5/V6] ABNORMAL ECG INTERPRETATION BASED ON A DEFAULT AGE OF 38 YEARS UNCONFIRMED REPORT Electronically signed by : Cody Hernandez MD 04/02/2025 08:37:53
--- NOTE | 2025-04-01 22:15 | PC.NURSE ---
Patient admitted to stepdown in the icu in 2621, patient arrived at 2114 to unit. RT and nursing staff brought up patient to room. At this time, patient HR was having some pauses and irregularity and with no PMH and family present, we did an EKG and called dr dickinson who is television picture tube rebuilder for their service since it is [place] patient. I expressed my concerns and updated him on the patient condition with hypertensive blood pressure of 182/71 and HR of 51 appearing irregular on the monitor. Patient mentation is alert to self and that is all. She is covered in trunk, bilateral arms and neck redness with moderate itching and facial redness from the reaction to ABX in er, Dr dickinson was also made aware of this. He stated she had a history of bradycardia and her blood pressure is fine with him at this time stable . I will continue to call the service if my assessments change and for any orders or condition updates. no new orders at this time, will continue to monitor patient at the bedside closely.
[2025-04-01 22:40] LABS: Troponin I < 0.01 ng/ml (0.00-0.034)
[2025-04-01 22:45] LABS: Lactate Venous 1.6 mmol/L (0.4-2.0); VBG HCO3 33.8 mmol/L (23-30); VBG PH 7.29 mmol/L (7.31-7.41); VBG PO2 28.5 mmol/L (28-40)
[2025-04-01 22:48] LABS: VBG PCO2 72.0 mmol/L (35-51)
--- NOTE | 2025-04-01 22:57 | PC.WOUNDNOTE ---
bottom with paste present
--- NOTE | 2025-04-01 22:58 | PC.WOUNDNOTE ---
hive/itchy reaction to abx.
[2025-04-02] VITALS (40 sets, daily range): BP systolic 115–178; BP diastolic 42–79; PULSE 44–74; RESP 13–24; TEMP 36.7–37.3; O2SAT 87–97; BMI 32.5
[2025-04-02 02:19] LABS: Troponin I < 0.01 ng/ml (0.00-0.034)
[2025-04-02 03:05] LABS: Lactate Venous 1.7 mmol/L (0.4-2.0); VBG HCO3 34.0 mmol/L (23-30); VBG PH 7.37 mmol/L (7.31-7.41); VBG PO2 36.9 mmol/L (28-40)
[2025-04-02 03:07] LABS: VBG PCO2 59.8 mmol/L (35-51)
--- NOTE | 2025-04-02 03:11 | PC.NURSE ---
Dr Vences was called for orders, patient is very agitated wearing the bipap, I have had no new orders for agitation or a repeat VBG since the one from 2244 was done and adjustments were made to her rate. I personally called him since he is communications instructor for their services and obtained permission and a verbal order to follow up on her co2 and get another vbg. He had no new orders or concerns besides the vbg to be ordered. VBG revealed better c02 but there is concern that since she is requiring a high amt of o2 on the venti mask when she is off, the co2 will climb again.patient is altered and her mentation is poor stating she wants to if she has to keep this mask on . I have educated her on the use of the mask and decreasing her co2 levels and why it is important to wear the mask when her levels of c02 are high. I will call Dr. Vences again if concerns continue with agitation and see what he would like to do to address her comfort at this time. patient repositioned and warm blanket provided, will monitor her closely at the bedside. HR still dipping into the low 40's and is irregular with pauses. sbp is 158 and saturations on her o2 are staying 91-96%, on venti mask now.
[2025-04-02] MEDS: ACETAMINOPHEN 325MG TAB 650 MG PO (03:27)
--- NOTE | 2025-04-02 05:29 | PC.NURSE ---
Patient crying, Nurse and Cherelle coulter Rn at bedside to witness her confusion. She states she is outside and wants to go inside also thinks she is trying to get in her house and is periodically yelling out a adriana name, when asked who he is, she stated we should know . Nurses provided therapeutic communication at this time and have had multiple attempts to reorient her without success. patient pulled out her iv in left hand, we have put her in mittens still keeping good circulation and pulses on both sides and she will not stop yelling out.
--- NOTE | 2025-04-02 08:18 | SW/DCPLANNER ---
Addendum entered by Melony [place] 04/07/25 08:51: I have updated Larry that patient will return to [facility] today. Patient will be SNF level of care. Addendum entered by Melony [place] 04/06/25 10:59: I have updated Larry shine/ Isaías Moralez that per Dr Adamson patient may be ready for discharge tomorrow pending no setbacks. CM will continue to follow up. Addendum entered by Melony [place] 04/05/25 09:44: Per patient is not medically stable for discharge today. I have updated Larry shine/ Isaías Moralez. Addendum entered by Melony [place] 04/02/25 10:03: Per Larry patient can admit Saturday or Saturday if medically stable for discharge. Addendum entered by [facility] 04/02/25 08:53: Per Larry if SNF is needed at discharge they can accept starting 04/04. I will continue to follow up w/ and Isaías Moralez. Discharge date is unknown at this time. Original Note: Patient currently resides at [facility]. Updated patient information has been faxed to Larry. Discharge date is unknown at this time. CM will continue to follow up.
--- NOTE | 2025-04-02 08:24 | EXP.HP ---
History of Present Illness *Admission Date: 04/01/25 *Reason for visit:: shortness of breath *History of present illness: Patient is an 84-year-old female who presented to the emergency department from [place] with concern for a stroke alert. Per EMS, had increased lethargy over the last several days, nursing facility had reported a possible right-sided facial droop. Nursing facility was unable to report last known normal. They felt that her speech was also worse than her usual. Patient does have a history of COPD, wears 4 L nasal cannula at baseline. Patient had a normal blood sugar with EMS. At this time, patient denies any symptoms. Patient reports mild shortness of breath but no chest pain. Patient denies any abdominal pain nausea vomiting. Does report some mild decreased oral intake. 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 Patient's labs were reviewed and interpreted by myself and patient's CBC showed no leukocytosis, hemoglobin was stable, INR was mildly elevated at 1.11, VBG showed mild acidosis at 7.31 with hypercapnia with a CO2 of 70. Patient was mildly hypernatremic at 146, had a mild RICHIE with a creatinine of 1.4. Patient's UA showed no evidence of infection. Patient CT scans including CT head, CTA head and neck and CT chest showed no intracranial ischemia, no LVO, no increased intracranial hemorrhage. CT chest showed possible edema and concern for perihilar infiltrate. Given that patient's CT scan showed no intracranial hemorrhage or ischemia, I had low concern for stroke at this time after further discussion with the nursing facility stating that patient symptoms were only lethargy over the last 3 days with unknown last known normal. Patient was outside the window for thrombolytics or further intervention. Patient was given 3 DuoNebs given her decreased breath sounds as well as Solu-Medrol with concern for COPD exacerbation. Given patient CT scan showed possible perihilar infiltrate, patient was given Rocephin as well as azithromycin for COPD coverage as well as community-acquired pneumonia. Patient's repeat VBG was obtained which showed worsening acidosis and increasing CO2 therefore patient was placed on BiPAP. Hospital medicine was consulted and patient was admitted to their service for COPD exacerbation, hypercapnic respiratory failure as well as pneumonia and RICHIE. (above as per ER physican) Of note, patient had been on antibiotics for a UTI and was then switched to zithromax and cefdinir yesterday for possible pneumonia on CXR. She states she feels much better this am. She did not like wearing the BIPAP and this was removed during the night. She is now on nasal oxygen. [facility] Disclaimer: The information contained in this section may have been updated after the patient was seen, as this information can be updated by other users. Medical History Asthma Fibrosis of lung Decreased diffusion capacity of lung Pulmonary emphysema Chronic respiratory failure with hypoxia Recurrent pneumonia Acute and chronic respiratory failure with hypoxia Lumbar radiculopathy Degenerative disc disease, lumbar Paratracheal lymphadenopathy CAP (community acquired pneumonia) RICHIE (acute kidney injury) Hypertensive urgency Elevated brain natriuretic peptide (BNP) level Hypertensive emergency CKD (chronic kidney disease) stage 3, GFR 30-59 ml/min Pneumonia Allergic rhinitis Colon polyps Hemorrhoids, internal Osteoporosis Herpes zoster Closed left ankle fracture Closed left hip fracture Lumbar spinal stenosis Lumbar compression fracture Ocular melanoma COPD (chronic obstructive pulmonary disease) Mediastinal lymphadenopathy Sleep apnea Hyperlipidemia Neuropathy Depression GERD (gastroesophageal reflux disease) Arthritis Hypertension Diabetes Surgical History History of right knee joint replacement History of left knee replacement History of left hip replacement History of left ankle joint replacement 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 History of arthroplasty of right knee History of appendectomy Family History Heart attack Social History Smoking Status: Never smoker alcohol intake: never substance use type: denies use current occupational status: other Travel in the last 8 weeks?: None household members: none caffeine: Yes Have you lived/traveled outside US in past 30 days?: No Contact w/someone who lives/traveled outside US past 30 days?: No Exposure to someone with infectious disease in past 14 days?: No Do you have a fever (greater than 100.4 F or 38 C)?: No Have you tested positive for COVID-19?: No Exposed to someone with COVID-19 in past 14 days?: No Do you have a sore throat?: No Do you have a cough?: No Do you have any weakness?: No Do you have any diarrhea?: No Are you experiencing any unusual bleeding?: No Do you have any muscle aches/pain?: No Do you have any abdominal pain?: No Are you experiencing loss of taste or smell?: No Other Medical History Have you received the Flu Vaccine for this season: Yes Have you received the Pneumonia Vaccine: Yes Review of Systems Constitutional Constitutional: Reports fatigue, Denies fever(s), Denies headache(s) and Reports weakness Eyes Eyes: Denies blurry vision and Denies diplopia ENT Ears, Nose, Mouth, and Throat: Denies headache(s), Denies sore throat and Denies vertigo *Cardiovascular Cardiovascular: Denies chest pain and Reports dyspnea *Respiratory Respiratory: Reports chest congestion, Reports cough and Reports dyspnea *Gastrointestinal Gastrointestinal: Denies abdominal pain, Denies loose stools, Denies nausea and Denies vomiting *Genitourinary Genitourinary: Denies difficulty voiding and Denies dysuria *Musculoskeletal Musculoskeletal: Reports muscle weakness and Denies myalgias *Neurologic Neurologic: Denies headache(s), Denies vertigo and Reports weakness Endocrine Endocrine: Reports fatigue Meds Home Medications and Allergies Home Medications ?Medication ?Instructions ?Recorded ?Confirmed ?Type metformin 500 mg tablet 500 mg PO BIDWMEAL 03/06/18 04/01/25 History simvastatin 20 mg tablet 20 mg PO HS 03/06/18 04/01/25 History escitalopram oxalate 20 mg tablet 20 mg PO DAILY 11/10/23 04/01/25 History fluticasone 250 mcg-salmeterol 50 1 ea inhalation BID 11/10/23 04/02/25 History mcg/dose blistr powdr for inhalation (Wixela Inhub) oxybutynin chloride 10 mg 10 mg PO DAILY 11/10/23 04/02/25 History tablet,extended release 24 hr irbesartan 300 mg tablet 300 mg PO DAILY #30 tabs 02/25/24 04/01/25 Rx esomeprazole magnesium 40 mg 40 mg PO DAILY 05/09/24 04/01/25 History capsule,delayed release metoprolol succinate 50 mg 50 mg PO DAILY 05/09/24 04/01/25 History tablet,extended release 24 hr tizanidine 2 mg tablet 2 mg PO HSP PRN Muscle Pain 05/09/24 04/01/25 History fluticasone propionate 50 2 spray intranasal DAILY 05/12/24 04/01/25 History mcg/actuation nasal spray,suspension calcium carbonate (Calcium 600) 600 mg PO DAILY 07/08/24 04/01/25 History glucosamine sulfate 2KCl 1,000 mg 1,000 mg PO DAILY 07/08/24 04/01/25 History tablet mecobalamin (vitamin B12) 1,000 1,000 mcg PO DAILY 07/08/24 04/01/25 History mcg chewable tablet (B12 Active) multivitamin 1 tab PO DAILY 07/08/24 04/01/25 History vit C 250 mg-vit E 90 mg-zinc 40 1 tab PO BID 07/08/24 04/02/25 History mg-copper 1 [id number] capsule (PreserVision AREDS-2) furosemide 40 mg tablet 40 mg PO DAILY 08/08/24 04/01/25 History dapagliflozin propanediol 10 mg 10 mg PO DAILY #30 tabs 08/14/24 04/01/25 Rx tablet (Farxiga) pregabalin 75 mg capsule (Lyrica) 75 mg PO BID #60 caps 08/14/24 04/01/25 Rx spironolactone 50 mg tablet 50 mg PO DAILY #30 tabs 08/14/24 04/01/25 Rx cefdinir 300 mg capsule 300 mg PO BID 04/01/25 04/01/25 History acetaminophen 500 mg tablet 500 mg PO Q6HP PRN Mild Pain 04/02/25 04/02/25 History (Scale Score 1-4) azithromycin 250 mg tablet 250 mg PO DAILY 04/02/25 04/02/25 History ipratropium 0.5 mg-albuterol 3 mg 3 ml inhalation Q6HP PRN Shortness 04/02/25 04/02/25 History (2.5 mg base)/3 mL nebulization Of Breath soln lidocaine 4 % topical patch 1 - 3 patch topical DAILY 04/02/25 04/02/25 History montelukast 10 mg tablet 10 mg PO PM 04/02/25 04/02/25 History New Prescriptions to Start Prescriptions: Allergies Allergy/AdvReac Type Severity Reaction Status Date / Time pollen extracts (POLLEN Allergy Intermediate ASTHMA Verified 09/29/24 15:33 EXTRACTS) azithromycin Allergy Redness of Verified 04/01/25 22:47 Skin ceftriaxone (From [facility]) Allergy Redness of Verified 04/01/25 22:48 Skin Exam Data for Last 24 hours Vital signs and Labs for Last 24 Hours: Temp Pulse Resp BP Pulse Ox O2 Del Method FiO2 98.4 F 63 19 156/58 H 94 L Venturi Mask 35 04/01/25 21:16 04/02/25 08:00 04/02/25 06:00 04/02/25 06:00 04/02/25 07:38 04/02/25 07:38 04/02/25 02:00 Laboratory Results - last 24 hr 04/01/25 18:29: WBC 9.1, RBC 4.21, Hgb 11.3 L, Hct 39.4, MCV 93.6, MCH 26.8 L, MCHC 28.7 L, RDW 17.5, Plt Count 131 L, MPV 10.7 H, Neut % (Auto) 74.4, Lymph % (Auto) 12.1, Douglas % (Auto) 8.7, Eos % (Auto) 1.8, Baso % (Auto) 0.4, Neut # (Auto) 6.8, Lymph # (Auto) 1.1, Douglas # (Auto) 0.8, Eos # (Auto) 0.2, Baso # (Auto) 0.0, PT 12.2, INR 1.11 H, VBG pH 7.31, VBG pCO2 70.8 H, VBG pO2 30.8, VBG HCO3 35.0 H, VBG Total CO2 37.2 H, VBG O2 Saturation 61.7, VBG Base Excess 8.8 H, VBG Lactic Acid 1.4, Sodium 146 H, Potassium 5.0, Chloride 101, Carbon Dioxide 39 H, Anion Gap 11.0, BUN 53 H, Creatinine 1.40 H, Estimated Creat Clear 39, Estimated GFR 36 L, Est GFR ( Amer) 43 L, Glucose 137 H, Calcium 9.9, Magnesium 1.7, Total Bilirubin 0.4, AST 27, ALT 11 L, Alkaline Phosphatase 84, Troponin I < 0.01, Total Protein 7.4 D, Albumin 4.0, Globulin 3.4 H, Albumin/Globulin Ratio 1.2, TSH 1.11, Free T4 1.29 04/01/25 18:52: Chlamy pneumoniae PCR Not detected, Adenovirus (PCR) Not detected, B. pertussis DNA (PCR) Not detected, Coronavirus OC43 (PCR) Not detected, Coronavirus HKU1 (PCR) Not detected, Coronavirus 229E (PCR) Not detected, SARS-CoV-2 (PCR) Not detected, Coronavirus NL63 (PCR) Not detected, Human Metapneumovir PCR Not detected, Influenza A (H1) PCR Not detected, Influ A (H1N1/09) PCR Not detected, Influenza A (H3) PCR Not detected, Influenza Type A (PCR) Not detected, Influenza Type B (PCR) Not detected, M. pneumoniae (PCR) Not detected, Parainfluenza 1 (PCR) Not detected, Parainfluenza 2 (PCR) Not detected, Parainfluenza 3 (PCR) Not detected, Parainfluenza 4 (PCR) Not detected, RSV (PCR) Not detected, Entero/Rhino (PCR) Not detected 04/01/25 19:30: Urine Color Yellow, Urine Appearance Clear, Urine pH 6.0, Ur Specific [place] 1.010, Urine Protein Negative, Urine Glucose (UA) Negative, Urine Ketones Negative, Urine Blood Negative, Urine Nitrate Negative, Urine Bilirubin Negative, Urine Urobilinogen 0.2, Ur Leukocyte Esterase Negative, Urine RBC None, Urine WBC Occasional, Ur Squamous Epith Cells Occasional, Urine Bacteria Trace 04/01/25 20:26: VBG pH 7.26 L, VBG pCO2 74.9 H, VBG pO2 30.4, VBG HCO3 32.9 H, VBG Total CO2 35.2 H, VBG O2 Saturation 56.3, VBG Base Excess 5.9 H, VBG Lactic Acid 1.9 04/01/25 22:08: Troponin I < 0.01 04/01/25 22:40: VBG pH 7.29 L, VBG pCO2 72.0 H, VBG pO2 28.5, VBG HCO3 33.8 H, VBG Total CO2 36.1 H, VBG O2 Saturation 54.6, VBG Base Excess 7.3 H, VBG Lactic Acid 1.6 04/02/25 01:24: Troponin I < 0.01 04/02/25 03:00: VBG pH 7.37, VBG pCO2 59.8 H, VBG pO2 36.9, VBG HCO3 34.0 H, VBG Total CO2 35.9 H, VBG O2 Saturation 71.7 H, VBG Base Excess 8.8 H, VBG Lactic Acid 1.7 I & O for Last 24 hours: Intake & Output 03/30/25 03/31/25 04/01/25 04/02/25 11:59 11:59 11:59 11:59 Intake Total 200 / 200 Output Total 1000 / 1000 Balance -800 / -800 Weight 190 lb 11.198 oz Constitutional Constitutional: no acute distress *Routine HEENT Exam Head: Present normocephalic and atraumatic Eye: Present EOMI and PERRL ENT: Present mucous membranes dry *Routine Neck Exam Neck: Present supple and full ROM *Routine Respiratory Exam Respiratory: Present decreased breath sounds, rhonchi and wheezes *Routine Cardiovascular Exam Cardiovascular: Present RRR and ectopic (frequent ectopics) *Routine Abdominal Exam Abdominal: Present soft and normoactive bowel sounds; Absent tenderness *Routine Rectal Exam Rectal:: deferred *Routine Genitalia Exam Genitalia:: deferred *Routine Extremities Exam Extremities: Present edema (trace bilateral LE's); Absent cyanosis or clubbing *Routine Skin Exam Skin: Present intact; Absent erythema *Routine Neurological Exam Neurological: Present alert and oriented X3 H&P: Result Impressions Chest CTA 1. No central or segmental pulmonary arterial intraluminal emboli identified. 2. Interstitial prominence. Correlate with low-grade CHF/pulmonary edema. 3. Right middle lobar perihilar infiltration. Head CT 1. Artifactual degradation of the study. 2. No acute intracranial hemorrhage, mass effect or midline shift. 3. Involutional changes of the brain in keeping with the patient's age, with findings of chronic microvascular ischemic disease. Head CTA - Mild stenosis of the intracranial ICAs bilaterally. Neck CTA - 1. Mild left ICA stenosis. 2. Patchy density in the right lobe may reflect atelectasis or pneumonitis. 3. Mediastinal lymphadenopathy, with differential diagnosis as above. Assessment and Plan *Assessment and plan (1) Acute hypercapnic respiratory failure: Status: Acute Category: Medical Code(s): J96.02 - Acute respiratory failure with hypercapnia (2) Pneumonia: Status: Acute Qualifiers: Pneumonia type: due to unspecified organism Laterality: right Lung location: middle lobe of lung Qualified Code(s): J18.9 - Pneumonia, unspecified organism Category: Medical Code(s): J18.9 - Pneumonia, unspecified organism (3) Acute exacerbation of chronic obstructive pulmonary disease: Status: Acute Category: Medical Code(s): J44.1 - Chronic obstructive pulmonary disease with (acute) exacerbation (4) Pulmonary edema: Status: Acute Qualifiers: Chronicity: acute Qualified Code(s): J81.0 - Acute pulmonary edema Category: Medical Code(s): J81.1 - Chronic pulmonary edema (5) General weakness: Status: Acute Category: Medical Code(s): R53.1 - Weakness (6) RICHIE (acute kidney injury): Status: Acute Category: Medical Code(s): N17.9 - Acute kidney failure, unspecified (7) Asthma: Status: Acute Qualifiers: Asthma complication type: uncomplicated Asthma persistence: persistent Asthma severity: moderate Qualified Code(s): J45.40 - Moderate persistent asthma, uncomplicated Category: Medical Code(s): J45.909 - Unspecified asthma, uncomplicated (8) DM type 2 (diabetes mellitus, type 2): Status: Acute Qualifiers: Diabetes mellitus [facility] insulin use: unspecified [facility] insulin use status Diabetes mellitus complication detail: with chronic kidney disease Chronic kidney disease stage: stage 3 (moderate) Chronic kidney disease stage 3 subtype: stage 3b (GFR 30-44) Category: Medical Code(s): E11.9 - Type 2 diabetes mellitus without complications (9) Hypertension: Status: Acute Qualifiers: Hypertension type: primary hypertension Qualified Code(s): I10 - Essential (primary) hypertension Category: Medical Code(s): I10 - Essential (primary) hypertension (10) Neuropathy: Status: Acute Category: Medical Code(s): G62.9 - Polyneuropathy, unspecified (11) Depression: Status: Acute Qualifiers: Depression Type: unspecified Qualified Code(s): F32.A - Depression, unspecified Category: Medical Code(s): F32.A - Depression, unspecified (12) GERD (gastroesophageal reflux disease): Status: Acute Qualifiers: Esophagitis presence: esophagitis presence not specified Qualified Code(s): K21.9 - Gastro-esophageal reflux disease without esophagitis Category: Medical Code(s): K21.9 - Gastro-esophageal reflux disease without esophagitis (13) Hyperlipidemia: Status: Acute Qualifiers: Hyperlipidemia type: unspecified Qualified Code(s): E78.5 - Hyperlipidemia, unspecified Category: Medical Code(s): E78.5 - Hyperlipidemia, unspecified Plan Patient was placed on BIPAP during the night and confusion has improved. She is on nasal oxygen this am. She is able to eat and feels better this am. Will continue current antibiotics and await sputum and blood cultures. Respiratory panel was negative. Dr. Adamson entry - Saw patient, agree with above note. CTA chest showed right sided pneumonia and some pulmonary edema. Patient has a skin reaction after receiving Zithromax and Ceftriaxone last night. Will give one dose of Lasix and continue antibiotics but change to Levaquin due to reaction, wean FiO2 down to 4 L/min. Recheck labs tomorrow, hold Metformin, use sliding scale insulin as needed.
--- NOTE | 2025-04-02 08:30 | P.CONPHA_ITS ---
Pharmacy Intervention Comments: MEDICATION RECONCILIATION COMPLETED ON PATIENT USING MAR FROM [facility]. -NICKY CAMP, JAMESOND
--- NOTE | 2025-04-02 08:30 | HMH.PHAINT1 ---
Pharmacy Intervention Comments: MEDICATION RECONCILIATION COMPLETED ON PATIENT USING [facility] FROM [facility]. -NICKY CAMP, JAMESOND
--- NOTE | 2025-04-02 08:41 | PC.NURSE ---
Physical therapy and this SRNA got patient up to chair upon request. Patient is now up to chair with legs elevated. call light is within reach and pure wick is still in place.
--- NOTE | 2025-04-02 09:00 | PC.NURSE ---
states I will review the chart and put in orders. Continuation of care plan.
--- NOTE | 2025-04-02 09:00 | PC.NURSE ---
Patients oxygen weaned down from 6 L NC to 5 L NC at this time. Continuation of care plan.
[2025-04-02] MEDS: IRBESARTAN 300MG TABLET 300 MG PO (09:19)
[2025-04-02] MEDS: FUROSEMIDE 40MG/4ML VIAL 40 MG IV (09:21)
--- NOTE | 2025-04-02 09:47 | HMH.OTEV ---
OT Inpatient Evaluation Rehab OT IP Evaluation Start: 04/02/25 08:24 Freq: ONCE Status: Active Protocol: Document 04/02/25 09:43 HAROLDOCOOSADA (Rec: 04/02/25 09:[address] [facility] [id number]) Rehab OT IP Assessment Subjective History Pt oriented x 2 on arrival. Pt confused at times throughout therapy evaluation. Pt admitted on 04/01/25 due to acute respiratory failure. History and physical: Patient is an 84-year-old female who presented to the emergency department from [place] with concern for a stroke alert. Per EMS, had increased lethargy over the last several days, nursing facility had reported a possible right-sided facial droop. Nursing facility was unable to report last known normal. They felt that her speech was also worse than her usual. Patient does have a history of COPD, wears 4 L nasal cannula at baseline. Patient had a normal blood sugar with EMS. At this time, patient denies any symptoms. Patient reports mild shortness of breath but no chest pain. Patient denies any abdominal pain nausea vomiting. Does report some mild decreased oral intake. 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 Subjective Pt reports prior to being in the hospital, she was living at [facility] assisted living. Pt claims she is normally independent with feeding and dressing. However, she does get assistance with bathing. She is dependent upon staff for completion of all IADLs. Pt uses a wheelchair primarily for functional transfers. She does need assistance transferring to and from wheelchair. Objective Patient Orientation Person,Birthday Transfer Training Sit/Stand/Pivot Transfer Assist Level Moderate x 1 (50% assist) Chair Transfer Moderate x 2 (50% assist) Ability Chair Transfer Stand Step Pivot Technique Rehab OT IP prob,goals,plan Problems Date of Evaluation: 04/02/25 OT IP Problems Bed Mobility,Transfers,Balance,Self care,Safety Rehab Potential Rehab Potential Good Equipment Needs Assistive Devices Rolling / Wheeled Walker Plan OT intervention Plan Bed Mobility,Transfers,Balance,Self care,Safety, Therapeutic Exercise OT Plan Frequency Daily Duration LOS Discharge Goals Bed Mobility Ability Assistance x1 Sit to Stand Chair Moderate x 1 (50% assist) Transfer Ability Chair Transfer Moderate x 1 (50% assist) Ability Chair Transfer Stand Step Pivot Technique Chair Transfer Rolling Walker Assistive Devices Lower Body Dressing Moderate Assistance Ability Upper Body Dressing Standby Assistance Ability Performing Toilet Moderate Assistance Hygiene Ability Overall Commode/ Moderate Assistance Toilet Transfer Ability Commode/Toilet Stand Step Pivot Transfer Technique Discharge Plan OT Discharge Plan Pt will continue to be seen for OT services while at [facility]. Pt would benefit most from short term rehab once she returns to [place]. Continued skilled therapy is important in order for patient to improve strength, safety, endurance, ADL independence, and functional transfers to reach OF. Eval Complexity Eval Charge Codes 44895 - Moderate Complexity PHYSICIAN CERTIFICATION: I certify the specified therapy services for Kirstie Nascimento are required, authorized, and reviewed every 30 days.
--- NOTE | 2025-04-02 09:51 | HMH.PTEV ---
Physical Therapy Evaluation Rehab PT IP Evaluation Start: 04/02/25 08:24 Freq: ONCE Status: Active Protocol: Document 04/02/25 09:00 SHALINI (Rec: 04/02/25 09:51 SHALINI [id number]) Subjective/History History History 84-year-old female who presented to the emergency department from [place] with concern for a stroke alert. Per EMS, had increased lethargy over the last several days, nursing facility had reported a possible right-sided facial droop. Nursing facility was unable to report last known normal. They felt that her speech was also worse than her usual. Patient does have a history of COPD, wears 4 L nasal cannula at baseline. Patient had a normal blood sugar with EMS. At this time, patient denies any symptoms. Patient reports mild shortness of breath but no chest pain. Patient denies any abdominal pain nausea vomiting. Does report some mild decreased oral intake. 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 Pt resides in [facility] at baseline requiring assistance to transfer to w/c and uses the w/c for all mobility. She does report independent with ADLs at baseline. Subjective Subjective Pt reports she feels tired this am, I had a rough night, but she does agree to mobility assessment. [facility] How much help from another person do you currently need... Turning from your None back to your side while in a flat bed without using bedrails? Moving from lying on A little back to sitting on the side of a flat bed without using bedrails? Moving to and from a A little bed to a chair ( including a wheelchair)? Standing up from a A little chair using your arms? (e.g., wheelchair, bedside chair) Walking in hospital A lot room? Climbing 3-5 steps A lot with a railing? Mobility Score 17 Mobility Level [facility] Mobility 5 Stand (1 or more minutes) Mobility Calculator Rehab PT IP Eval Objective Appearance Patient Behavior Appropriate Patient Orientation Person,Place,Time Difficulty following none instructions Speech Pattern Clear Ambulation Patient Able to Yes Ambulate Ambulation Observation IP General Gait Wide Based Gait,Shuffling Step Pattern Observation Ambulation Distance 3 (feet) Ambulation Assistive None Device Ambulation Ability Moderate x 1 (50% assist) Balance Ability to Arise Able, uses arms to help Sitting Balance Steady, safe Standing Balance Unsteady Dynamic Sitting Fair Balance Ability Dynamic Standing Poor Balance Ability Transfers Bed Transfer Ability Minimal x 1 (25% assist) Chair Transfer Moderate x 1 (50% assist) Ability Sit to Stand Bed Moderate x 1 (50% assist) Transfer Ability Sit to Stand Chair Moderate x 1 (50% assist) Transfer Ability Rehab PT IP prob,goals,plan Problems Date of Evaluation: 04/02/25 PT IP Problems Bed Mobility,Transfers,Gait Rehab Potential Rehab Potential Good Plan PT Intervention Plan Bed Mobility,Transfers,Gait,Therapeutic Exercise PT Plan Frequency Daily Duration LOS Discharge Goals Bed Transfer Ability Contact Guard/Hand Hold Sit to Stand Chair Minimal x 2 (25% assist) Transfer Ability Ambulation Assistive Rolling Walker Device Ambulation Distance 5 (feet) Discharge Plan PT Discharge Plan Pt is currently most appropriate for rehab placement once medically stable for d/c. Skilled acute therapy services are indicated to improve all mobility, general strength, and endurance to activity in order to return pt to [facility]. Eval Complexity Eval Charge Codes 71290 - High Complexity PHYSICIAN CERTIFICATION: I certify the specified therapy services for Kirstie Nascimento are required, authorized, and reviewed every 30 days.
[2025-04-02] MEDS: METOPROLOL SUCCINATE XL 50MG TABLET 50 MG PO (10:04)
[2025-04-02] MEDS: LEVOFLOXACIN/D5W 750 MG/150 ML 750 MG/150 ML PIGGYBACK 100 MG IV (13:30)
--- NOTE | 2025-04-02 15:00 | PC.NURSE ---
Patients oxygen weaned from 5 L NC to 4 L NC at this time. Continuation of care plan.
--- NOTE | 2025-04-02 18:03 | PC.NURSE ---
Report given to NEO Palma at this time. Continuation of care plan.
--- NOTE | 2025-04-02 18:22 | PC.NURSE ---
Patient transferred to Medical Surgical room 215 by Medical Surgical staff.
--- NOTE | 2025-04-02 18:22 | PC.NURSE ---
PT left the ICU to go to room 215 @[id number] via bed
[2025-04-02 19:57] LABS: POC Glucose,Bedside 105 (70-110)
[2025-04-03] VITALS (7 sets, daily range): BP systolic 129–163; BP diastolic 58–76; PULSE 47–57; RESP 16–19; TEMP 36.7–36.9; O2SAT 91–96; BMI 32.8
--- NOTE | 2025-04-03 04:34 | PC.NURSE ---
Patient alert and oriented x4. Per previous shift report, patient noted to be confused and disoriented; however, during assessment, patient correctly identified self, location, current year, current president, and situation correctly. Speech is clear, appropriate, and coherent. Patient on Bipap for short duration, declined continued use despite being educated on benefits. Nasal cannula reapplied at 4L. Blood glucose monitored per MD order, no insulin coverage indicated per sliding scale protocol. Patient denies pain, discomfort, or additional needs at this time. Patient is in room resting with eyes closed. No needs or complaints voiced at this time.
[2025-04-03 05:07] LABS: POC Glucose,Bedside 264 (70-110)
[2025-04-03 05:07] LABS: POC Glucose,Bedside 143 (70-110)
[2025-04-03 05:38] LABS: POC Glucose,Bedside 120 (70-110)
[2025-04-03 06:27] LABS: Hematocrit 34.9 % (37.0-47.0); Hemoglobin 10.3 g/dL (12.2-16.2); Immature Granulocytes % 2.0 %; Mean Corpuscular HGB Conc 29.5 g/dL (31.8-35.4); Mean Corpuscular Hemoglobin 26.7 pg (27.0-31.2); Mean Corpuscular Volume 90.4 fl (81-99); Nucleated Red Blood Cells % 0 %; Platelet Count 132 K/mm3 (142-424); Red Blood Count 3.86 M/mm3 (4.20-5.40); Red Cell Distribution Width-SD 58.2 fL; White Blood Count 7.9 K/mm3 (4.8-10.8)
[2025-04-03 06:32] LABS: Chloride 101 mmol/L (98-107); Potassium 4.6 mmoL/L (3.5-5.1); Sodium 142 mmol/L (136-145)
[2025-04-03 06:35] LABS: Anion Gap 9.6 mEq/L (5-15); Blood Urea Nitrogen 54 mg/dl (7-17); Calcium 9.7 mg/dl (8.4-10.2); Carbon Dioxide 36 mmol/L (22.0-30.0); Creatinine Clearance Estimated 37 mL/min (50-200); Creatinine,Serum 1.50 mg/dl (0.52-1.04); Estimated Glomerular Filt Rate 33 ml/min (>60); GFR (African American) 40 ML/MIN (>60); Glucose 104 mg/dl (74-100)
--- NOTE | 2025-04-03 09:20 | P.PN_ITS ---
Subjective *Date: 04/03/25 *Time: 09:20 Interval history: Patient feels a little better this morning, no new complaints. Medical Exam Vital signs and Labs for Last 24 Hours: Vital Signs Temp Pulse Pulse Resp BP BP Pulse Ox 04/03/25 08:00 98.5 F 54 L 18 149/65 H 93 L 04/03/25 06:40 04/03/25 05:00 04/03/25 04:00 98.2 F 57 L 19 144/73 H 96 04/03/25 03:00 04/03/25 01:00 04/03/25 00:00 98.3 F 52 L 18 149/76 H 91 L 04/02/25 23:00 04/02/25 22:50 04/02/25 21:00 04/02/25 20:00 94 L 04/02/25 19:42 98.4 F 54 L 19 147/77 H 94 L 04/02/25 18:41 04/02/25 16:13 04/02/25 16:01 98.1 F 56 L 20 155/79 H 92 L 04/02/25 16:00 60 04/02/25 15:54 04/02/25 14:00 60 22 158/73 H 94 L 04/02/25 14:00 94 L 04/02/25 12:39 04/02/25 12:01 99.1 F 61 22 155/68 H 93 L 04/02/25 12:00 65 04/02/25 11:00 57 L 22 91 L 04/02/25 10:46 04/02/25 10:45 54 L 14 94 L 04/02/25 10:35 54 L 22 158/71 H 92 L 04/02/25 10:30 67 14 93 L 04/02/25 10:15 68 17 95 04/02/25 10:02 66 18 128/57 L 94 L 04/02/25 10:00 63 24 95 04/02/25 09:45 68 21 92 L 04/02/25 09:30 65 16 93 L 04/02/25 09:29 68 22 147/55 H 92 L O2 Del Method O2 Flow Rate FiO2 04/03/25 08:00 Nasal Cannula 3.5 04/03/25 06:40 Nasal Cannula 4 04/03/25 05:00 Nasal Cannula 4 04/03/25 04:00 Nasal Cannula 4 04/03/25 03:00 Nasal Cannula 4 04/03/25 01:00 Nasal Cannula 4 04/03/25 00:00 Nasal Cannula 4 04/02/25 23:00 Nasal Cannula 4 04/02/25 22:50 35 04/02/25 21:00 Nasal Cannula 4 04/02/25 20:00 Nasal Cannula 4 04/02/25 19:42 Nasal Cannula 4 04/02/25 18:41 Nasal Cannula 4 04/02/25 16:13 Nasal Cannula 4 04/02/25 16:01 Nasal Cannula 4 04/02/25 16:00 04/02/25 15:54 Nasal Cannula 4 04/02/25 14:00 Nasal Cannula 4 04/02/25 14:00 Nasal Cannula 4 04/02/25 12:39 Nasal Cannula 4 04/02/25 12:01 Nasal Cannula 5 04/02/25 12:00 04/02/25 11:00 Nasal Cannula 5 04/02/25 10:46 Nasal Cannula 5 04/02/25 10:45 Nasal Cannula 5 04/02/25 10:35 Nasal Cannula 5 04/02/25 10:30 Nasal Cannula 5 04/02/25 10:15 Nasal Cannula 5 04/02/25 10:02 Nasal Cannula 5 04/02/25 10:00 Nasal Cannula 5 04/02/25 09:45 Nasal Cannula 5 04/02/25 09:30 Nasal Cannula 5 04/02/25 09:29 Nasal Cannula 5 Intake and Output 04/02/25 04/03/25 04/03/25 23:59 07:59 15:59 Intake Total 105 / 920 0 / 240 240 / 240 Output Total 200 / 1600 0 / 0 Balance -95 / -680 0 / 240 240 / 240 Intake: Intake, Oral Amount 105 / 770 0 / 240 240 / 240 Output: Output, Urine Amount 200 / 1600 0 / 0 Other: Number of Unmeasured Voids 1 1 Number of Bowel Movements 1 Weight 192 lb 4.8 oz Patient Weight 04/03/25 23:59 Weight 192 lb 4.8 oz Laboratory Results - last 24 hr 04/02/25 11:05: POC Glucose 264 H 04/02/25 16:01: POC Glucose 143 H 04/02/25 19:43: POC Glucose 105 04/03/25 05:24: POC Glucose 120 H 04/03/25 06:15: WBC 7.9, RBC 3.86 L, Hgb 10.3 L, Hct 34.9 L, MCV 90.4, MCH 26.7 L, MCHC 29.5 L, RDW 17.5, Plt Count 132 L, MPV 9.9, Neut % (Auto) 72.2, Lymph % (Auto) 14.6, [place] % (Auto) 10.7 H, Eos % (Auto) 0.4, Baso % (Auto) 0.1, Neut # (Auto) 5.7, Lymph # (Auto) 1.2, [place] # (Auto) 0.8, Eos # (Auto) 0.0, Baso # (Auto) 0.0, Sodium 142, Potassium 4.6, Chloride 101, Carbon Dioxide 36 H, Anion Gap 9.6, BUN 54 H, Creatinine 1.50 H, Estimated Creat Clear 37, Estimated GFR 33 L, Est GFR ( Amer) 40 L, Glucose 104 H, Calcium 9.7 I & O for Labs for Last 24 Hours: Intake & Output 03/31/25 04/01/25 04/02/25 04/03/25 23:59 23:59 23:59 23:59 Intake Total 920 / 920 240 / 240 Output Total 1600 / 1600 0 / 0 Balance -680 / -680 240 / 240 Weight 190 lb 190 lb 11.198 oz 192 lb 4.8 oz Microbiology Reports for the Last 24 Hours: Microbiology 04/01/25 20:28 Blood Blood Culture - Preliminary NO GROWTH AFTER 24 HOURS 04/01/25 20:12 Blood Blood Culture - Preliminary NO GROWTH AFTER 24 HOURS Constitutional: Present no acute distress Respiratory: Present normal respiratory effort Cardiac: Present Reg Rate and Rhythm GI: Present normal bowel sounds; Absent tenderness Extremities: Present normal inspection and full ROM Skin: Present intact; Absent erythema Neuro: Present Grossly Intact and moves all extremities Assessment and Plan *Assessment and plan (1) Acute hypercapnic respiratory failure: Status: Acute Category: Medical Code(s): J96.02 - Acute respiratory failure with hypercapnia (2) Pneumonia: Status: Acute Qualifiers: Laterality: right Lung location: middle lobe of lung Pneumonia type: due to unspecified organism Qualified Code(s): J18.9 - Pneumonia, unspecified organism Category: Medical Code(s): J18.9 - Pneumonia, unspecified organism (3) Acute exacerbation of chronic obstructive pulmonary disease: Status: Acute Category: Medical Code(s): J44.1 - Chronic obstructive pulmonary disease with (acute) exacerbation (4) Pulmonary edema: Status: Acute Qualifiers: Chronicity: acute Qualified Code(s): J81.0 - Acute pulmonary edema Category: Medical Code(s): J81.1 - Chronic pulmonary edema (5) General weakness: Status: Acute Category: Medical Code(s): R53.1 - Weakness (6) RICHIE (acute kidney injury): Status: Acute Category: Medical Code(s): N17.9 - Acute kidney failure, unspecified (7) Asthma: Status: Acute Qualifiers: Asthma severity: moderate Asthma persistence: persistent Asthma complication type: uncomplicated Qualified Code(s): J45.40 - Moderate persistent asthma, uncomplicated Category: Medical Code(s): J45.909 - Unspecified asthma, uncomplicated (8) DM type 2 (diabetes mellitus, type 2): Status: Acute Qualifiers: 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 petroleum terminal plant operator insulin use status Diabetes mellitus complication detail: with chronic kidney disease Chronic kidney disease stage: stage 3 (moderate) Chronic kidney disease stage 3 subtype: stage 3b (GFR 30-44) Category: Medical Code(s): E11.9 - Type 2 diabetes mellitus without complications (9) Hypertension: Status: Acute Qualifiers: Hypertension type: primary hypertension Qualified Code(s): I10 - Essential (primary) hypertension Category: Medical Code(s): I10 - Essential (primary) hypertension (10) Neuropathy: Status: Acute Category: Medical Code(s): G62.9 - Polyneuropathy, unspecified (11) Depression: Status: Acute Qualifiers: Depression Type: unspecified Qualified Code(s): F32.A - Depression, unspecified Category: Medical Code(s): F32.A - Depression, unspecified (12) GERD (gastroesophageal reflux disease): Status: Acute Qualifiers: Esophagitis presence: esophagitis presence not specified Qualified Code(s): K21.9 - Gastro-esophageal reflux disease without esophagitis Category: Medical Code(s): K21.9 - Gastro-esophageal reflux disease without esophagitis (13) Hyperlipidemia: Status: Acute Qualifiers: Hyperlipidemia type: unspecified Qualified Code(s): E78.5 - Hyperlipidemia, unspecified Category: Medical Code(s): E78.5 - Hyperlipidemia, unspecified (14) Anemia: Status: Acute Category: Medical Code(s): D64.9 - Anemia, unspecified Plan Patient has improved, continue current treatment.
[2025-04-03] MEDS: METOPROLOL SUCCINATE XL 50MG TABLET 50 MG PO (09:47)
[2025-04-03] MEDS: IRBESARTAN 300MG TABLET 300 MG PO (09:47)
[2025-04-03 11:42] LABS: POC Glucose,Bedside 123 (70-110)
[2025-04-03] MEDS: ONDANSETRON 4MG/2ML VIAL 4 MG IV (12:58)
[2025-04-03 20:25] LABS: POC Glucose,Bedside 138 (70-110)
[2025-04-04] VITALS (7 sets, daily range): BP systolic 120–137; BP diastolic 55–81; PULSE 43–54; RESP 16–22; TEMP 36.4–36.8; O2SAT 92–98; BMI 34.4
--- NOTE | 2025-04-04 02:52 | PC.NURSE ---
Patient alert and oriented x2. Patient noted to be confused and disoriented; unable to tell me location, the current president, and the situation during assessment. Patient was able to identify self and tell me the current year. Patient sleepy but arousable during assessment. Speech was mumbled at times, but appropriate and coherent. Patient declined Bipap despite being educated on benefits. Nasal cannula on at 4L. Blood glucose monitored per MD order, no insulin coverage indicated per sliding scale protocol. Patient denies pain, discomfort, or additional needs at this time. Patient is in room resting with eyes closed. No needs or complaints voiced at this time.
[2025-04-04 05:37] LABS: POC Glucose,Bedside 114 (70-110)
[2025-04-04 06:30] LABS: POC Glucose,Bedside 111 (70-110)
--- NOTE | 2025-04-04 09:59 | EXP.ACUTE.PN ---
Subjective *Date: 04/04/25 *Time: 09:59 Interval history: Patient refused to use BiPAP overnight. O2 sats declined this morning and she finally agreed to use BiPAP and has since done better. Medical Exam Vital signs and Labs for Last 24 Hours: Vital Signs Temp Pulse Pulse Resp BP Pulse Ox O2 Del Method 04/04/25 08:00 98.2 F 51 L 17 130/55 L 97 Nasal Cannula 04/04/25 06:42 Nasal Cannula 04/04/25 05:00 Nasal Cannula 04/04/25 04:00 98.2 F 50 L 137/69 92 L Nasal Cannula 04/04/25 03:00 Nasal Cannula 04/04/25 00:54 Nasal Cannula 04/04/25 00:00 98.3 F 54 L 19 131/65 95 Nasal Cannula 04/03/25 23:00 Nasal Cannula 04/03/25 21:00 Nasal Cannula 04/03/25 20:00 53 L 96 Nasal Cannula 04/03/25 19:44 98.1 F 53 L 19 129/62 96 Nasal Cannula 04/03/25 17:00 Nasal Cannula 04/03/25 16:00 98.3 F 47 L 16 141/70 H 95 Nasal Cannula 04/03/25 15:00 Room Air 04/03/25 13:00 Nasal Cannula 04/03/25 12:00 98.0 F 47 L 16 163/58 H 93 L Nasal Cannula 04/03/25 11:00 Nasal Cannula O2 Flow Rate 04/04/25 08:00 3.5 04/04/25 06:42 4 04/04/25 05:00 4 04/04/25 04:00 3.5 04/04/25 03:00 04/04/25 00:54 4 04/04/25 00:00 3.5 04/03/25 23:00 4 04/03/25 21:00 4 04/03/25 20:00 4 04/03/25 19:44 3.5 04/03/25 17:00 2 04/03/25 16:00 3.5 04/03/25 15:00 04/03/25 13:00 2 04/03/25 12:00 3.5 04/03/25 11:00 2 Intake and Output 04/03/25 04/04/25 04/04/25 23:59 07:59 15:59 Intake Total 275 / 515 0 / 0 Output Total 300 / 300 Balance 275 / 215 -300 / -300 Intake: Intake, Oral Amount 275 / 515 0 / 0 Output: Output, Urine Amount 300 / 300 Other: Number of Unmeasured Voids 0 Weight 201 lb 6.4 oz Patient Weight 04/04/25 23:59 Weight 201 lb 6.4 oz Laboratory Results - last 24 hr 04/03/25 11:30: POC Glucose 123 H 04/03/25 16:44: POC Glucose 111 H 04/03/25 19:49: POC Glucose 138 H 04/04/25 05:18: POC Glucose 114 H I & O for Labs for Last 24 Hours: Intake & Output 04/01/25 04/02/25 04/03/25 04/04/25 23:59 23:59 23:59 23:59 Intake Total 920 / 920 515 / 515 0 / 0 Output Total 1600 / 1600 0 / 300 300 / 300 Balance -680 / -680 515 / 215 -300 / -300 Weight 190 lb 190 lb 11.198 oz 192 lb 4.8 oz 201 lb 6.4 oz Microbiology Reports for the Last 24 Hours: Microbiology 04/01/25 20:28 Blood Blood Culture - Preliminary NO GROWTH AFTER 48 HOURS 04/01/25 20:12 Blood Blood Culture - Preliminary NO GROWTH AFTER 48 HOURS Constitutional: Present no acute distress Comment:: Sleeping quietly Respiratory: Present decreased breath sounds (bases); Absent respiratory distress or wheezes Cardiac: Present Regular Rhythm Assessment and Plan *Assessment and plan (1) Acute hypercapnic respiratory failure: Status: Acute Category: Medical Code(s): J96.02 - Acute respiratory failure with hypercapnia (2) Pneumonia: Status: Acute Qualifiers: Laterality: right Lung location: middle lobe of lung Pneumonia type: due to unspecified organism Qualified Code(s): J18.9 - Pneumonia, unspecified organism Category: Medical Code(s): J18.9 - Pneumonia, unspecified organism (3) Acute exacerbation of chronic obstructive pulmonary disease: Status: Acute Category: Medical Code(s): J44.1 - Chronic obstructive pulmonary disease with (acute) exacerbation (4) Pulmonary edema: Status: Acute Qualifiers: Chronicity: acute Qualified Code(s): J81.0 - Acute pulmonary edema Category: Medical Code(s): J81.1 - Chronic pulmonary edema (5) General weakness: Status: Acute Category: Medical Code(s): R53.1 - Weakness (6) RICHIE (acute kidney injury): Status: Acute Category: Medical Code(s): N17.9 - Acute kidney failure, unspecified (7) Asthma: Status: Acute Qualifiers: Asthma severity: moderate Asthma persistence: persistent Asthma complication type: uncomplicated Qualified Code(s): J45.40 - Moderate persistent asthma, uncomplicated Category: Medical Code(s): J45.909 - Unspecified asthma, uncomplicated (8) DM type 2 (diabetes mellitus, type 2): Status: Acute Qualifiers: 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 care home insulin use status Diabetes mellitus complication detail: with chronic kidney disease Chronic kidney disease stage: stage 3 (moderate) Chronic kidney disease stage 3 subtype: stage 3b (GFR 30-44) Category: Medical Code(s): E11.9 - Type 2 diabetes mellitus without complications (9) Hypertension: Status: Acute Qualifiers: Hypertension type: primary hypertension Qualified Code(s): I10 - Essential (primary) hypertension Category: Medical Code(s): I10 - Essential (primary) hypertension (10) Neuropathy: Status: Acute Category: Medical Code(s): G62.9 - Polyneuropathy, unspecified (11) Depression: Status: Acute Qualifiers: Depression Type: unspecified Qualified Code(s): F32.A - Depression, unspecified Category: Medical Code(s): F32.A - Depression, unspecified (12) GERD (gastroesophageal reflux disease): Status: Acute Qualifiers: Esophagitis presence: esophagitis presence not specified Qualified Code(s): K21.9 - Gastro-esophageal reflux disease without esophagitis Category: Medical Code(s): K21.9 - Gastro-esophageal reflux disease without esophagitis (13) Hyperlipidemia: Status: Acute Qualifiers: Hyperlipidemia type: unspecified Qualified Code(s): E78.5 - Hyperlipidemia, unspecified Category: Medical Code(s): E78.5 - Hyperlipidemia, unspecified (14) Anemia: Status: Acute Category: Medical Code(s): D64.9 - Anemia, unspecified Plan Improved since agreeing to use BiPAP, continue current care, recheck labs in the morning. Will likely need go back to [place] for some skilled care and not directly back to assisted living.
[2025-04-04 12:04] LABS: POC Glucose,Bedside 116 (70-110)
[2025-04-04] MEDS: LEVOFLOXACIN/D5W 750 MG/150 ML 750 MG/150 ML PIGGYBACK 100 MG IV (13:12)
--- NOTE | 2025-04-04 18:00 | PC.NURSE ---
PT DUDLEY BEEN DISORIENTED/CONFUSED FOR MOST OF THE SHIFT. PT WAS PLACED ON HER BIPAP THIS MORNING FOR A COUPLE OF HOURS R/T DROP IN HER O2 SATURATIONS. DR KLEIN ASKED TO KEEP HER ON BIPAP FOR LONG SHE TOLERATED BUT DID NOT WANT ABG/VBG THIS MORNING DURING ROUNDS. PT IS CURRENTLY REQUIRING 4LNC FOR O2 SUPPORT BUT STILL HAS EPISODES OF DESATURATIONS. SHE HAS BEEN TURNED Q2 HOURS AND HAS RECEIVED ORAL CARE T/O SHIFT.
[2025-04-04 20:17] LABS: POC Glucose,Bedside 106 (70-110)
[2025-04-05] VITALS (9 sets, daily range): BP systolic 116–142; BP diastolic 45–68; PULSE 46–80; RESP 14–21; TEMP 36.7–36.9; O2SAT 90–98; BMI 34.4
--- NOTE | 2025-04-05 02:11 | PC.NURSE ---
Pt alert to self and place. No acute changes this shift. Currently resting in bed with eyes closed, respirations even and unlabored. bed is low, locked, and call light is in reach.
[2025-04-05 05:28] LABS: POC Glucose,Bedside 112 (70-110)
[2025-04-05 06:06] LABS: Hematocrit 34.9 % (37.0-47.0); Hemoglobin 10.1 g/dL (12.2-16.2); Immature Granulocytes % 1.5 %; Mean Corpuscular HGB Conc 28.9 g/dL (31.8-35.4); Mean Corpuscular Hemoglobin 26.2 pg (27.0-31.2); Mean Corpuscular Volume 90.6 fl (81-99); Nucleated Red Blood Cells % 0 %; Platelet Count 100 K/mm3 (142-424); Red Blood Count 3.85 M/mm3 (4.20-5.40); Red Cell Distribution Width-SD 56.7 fL; White Blood Count 6.2 K/mm3 (4.8-10.8)
[2025-04-05 06:17] LABS: Chloride 98 mmol/L (98-107)
[2025-04-05 06:18] LABS: Potassium 4.7 mmoL/L (3.5-5.1); Sodium 141 mmol/L (136-145)
[2025-04-05 06:18] LABS: POC Glucose,Bedside 106 (70-110)
[2025-04-05 06:20] LABS: Blood Urea Nitrogen 52 mg/dl (7-17); Creatinine Clearance Estimated 42 mL/min (50-200); Creatinine,Serum 1.40 mg/dl (0.52-1.04); Estimated Glomerular Filt Rate 36 ml/min (>60); GFR (African American) 43 ML/MIN (>60)
[2025-04-05 06:21] LABS: Anion Gap 8.7 mEq/L (5-15); Calcium 9.3 mg/dl (8.4-10.2); Carbon Dioxide 39 mmol/L (22.0-30.0); Glucose 113 mg/dl (74-100)
--- NOTE | 2025-04-05 08:07 | P.PN_ITS ---
Subjective *Date: 04/05/25 *Time: 09:16 Interval history: Patient states she is not hurting anyplace. She is moaning and wants to move. She has declined eating breakfast. Nursing reports that she is usually oriented x 2. She wore her BiPAP about 2 hours last night. She states it hurts to wear it. Laboratory data this morning show white blood cell count of 6200 and a hemoglobin of 10.1 hematocrit 34.9. Platelet count is low at 100. Blood chemistries with normal sodium and potassium. BUN is 52 and creatinine is 1.4. Blood cultures are negative thus far Exam Data for Last 24 hours Vital signs and Labs for Last 24 Hours: Temp Pulse Resp BP Pulse Ox O2 Del Method O2 Flow Rate 98.1 F 47 L 16 119/62 98 Nasal Cannula 4 04/05/25 04:00 04/05/25 04:00 04/05/25 04:00 04/05/25 04:00 04/05/25 04:00 04/05/25 07:47 04/05/25 07:47 FiO2 45 04/05/25 03:58 Laboratory Results - last 24 hr 04/04/25 11:35: POC Glucose 116 H 04/04/25 16:17: POC Glucose 106 04/04/25 19:49: POC Glucose 106 04/05/25 05:12: POC Glucose 112 H 04/05/25 05:35: WBC 6.2, RBC 3.85 L, Hgb 10.1 L, Hct 34.9 L, MCV 90.6, MCH 26.2 L, MCHC 28.9 L, RDW 17.0, Plt Count 100 L, MPV 10.7 H, Neut % (Auto) 71.6, Lymph % (Auto) 15.9, Cotton % (Auto) 8.9, Eos % (Auto) 1.8, Baso % (Auto) 0.3, Neut # (Auto) 4.4, Lymph # (Auto) 1.0, Cotton # (Auto) 0.6, Eos # (Auto) 0.1, Baso # (Auto) 0.0, Sodium 141, Potassium 4.7, Chloride 98, Carbon Dioxide 39 H, Anion Gap 8.7, BUN 52 H, Creatinine 1.40 H, Estimated Creat Clear 42, Estimated GFR 36 L, Est GFR ( Amer) 43 L, Glucose 113 H, Calcium 9.3 I & O for Last 24 hours: Intake & Output 04/02/25 04/03/25 04/04/25 04/05/25 11:59 11:59 11:59 11:59 Intake Total 560 / 560 600 / 600 275 / 275 Output Total 1000 / 1000 600 / 600 300 / 300 450 / 450 Balance -440 / -440 0 / 0 -25 / -25 -450 / -450 Weight 190 lb 11.198 oz 192 lb 4.8 oz 201 lb 6.4 oz 201 lb 6.417 oz Constitutional Constitutional: no acute distress Comments: Lying in bed and crying *Routine Respiratory Exam Respiratory: Present decreased breath sounds (Poor inspiratory effort.) and crackles (More so in the right posteriorly) *Routine Cardiovascular Exam Cardiovascular: Present RRR *Routine Abdominal Exam Abdominal: Present soft, normoactive bowel sounds, tenderness, guarding and obese *Routine Extremities Exam Extremities: Absent edema Comments: Vascular changes in lower extremities. *Routine Neurological Exam Neurological: Present alert; Absent oriented X3 Comments: States she knows me. Answers all questions appropriately. Words sometimes difficult to understand. Assessment and Plan *Assessment and plan (1) Acute hypercapnic respiratory failure: Status: Acute Category: Medical Code(s): J96.02 - Acute respiratory failure with hypercapnia (2) Pneumonia: Status: Acute Qualifiers: Laterality: right Lung location: middle lobe of lung Pneumonia type: due to unspecified organism Qualified Code(s): J18.9 - Pneumonia, unspecified organism Category: Medical Code(s): J18.9 - Pneumonia, unspecified organism (3) Acute exacerbation of chronic obstructive pulmonary disease: Status: Acute Category: Medical Code(s): J44.1 - Chronic obstructive pulmonary disease with (acute) exacerbation (4) Pulmonary edema: Status: Acute Qualifiers: Chronicity: acute Qualified Code(s): J81.0 - Acute pulmonary edema Category: Medical Code(s): J81.1 - Chronic pulmonary edema (5) General weakness: Status: Acute Category: Medical Code(s): R53.1 - Weakness (6) RICHIE (acute kidney injury): Status: Acute Category: Medical Code(s): N17.9 - Acute kidney failure, unspecified (7) Asthma: Status: Acute Qualifiers: Asthma complication type: uncomplicated Asthma persistence: persistent Asthma severity: moderate Qualified Code(s): J45.40 - Moderate persistent asthma, uncomplicated Category: Medical Code(s): J45.909 - Unspecified asthma, uncomplicated (8) DM type 2 (diabetes mellitus, type 2): Status: Acute Qualifiers: Chronic kidney disease stage: stage 3 (moderate) Chronic kidney disease stage 3 subtype: stage 3b (GFR 30-44) Diabetes mellitus complication detail: with chronic kidney disease Diabetes mellitus continuous churn buttermaker insulin use: unspecified chcf insulin use status Category: Medical Code(s): E11.9 - Type 2 diabetes mellitus without complications (9) Hypertension: Status: Acute Qualifiers: Hypertension type: primary hypertension Qualified Code(s): I10 - Essential (primary) hypertension Category: Medical Code(s): I10 - Essential (primary) hypertension (10) Neuropathy: Status: Acute Category: Medical Code(s): G62.9 - Polyneuropathy, unspecified (11) Depression: Status: Acute Qualifiers: Depression Type: unspecified Qualified Code(s): F32.A - Depression, unspecified Category: Medical Code(s): F32.A - Depression, unspecified (12) GERD (gastroesophageal reflux disease): Status: Acute Qualifiers: Esophagitis presence: esophagitis presence not specified Qualified Code(s): K21.9 - Gastro-esophageal reflux disease without esophagitis Category: Medical Code(s): K21.9 - Gastro-esophageal reflux disease without esophagitis (13) Hyperlipidemia: Status: Acute Qualifiers: Hyperlipidemia type: unspecified Qualified Code(s): E78.5 - Hyperlipidemia, unspecified Category: Medical Code(s): E78.5 - Hyperlipidemia, unspecified (14) Anemia: Status: Acute Category: Medical Code(s): D64.9 - Anemia, unspecified Plan Will add breathing treatments. Dr. Adamson entry - Saw patient, agree with above note. SHe seems worse today, has pain all over, doesn't feel well. She did not get any of the ordered neb treatments yesterday. Will schedule doses today.
--- NOTE | 2025-04-05 08:17 | P.PN_ITS ---
Subjective *Date: 04/05/25 *Time: 08:17 Medical Exam Vital signs and Labs for Last 24 Hours: Vital Signs Temp Pulse Resp BP Pulse Ox O2 Del Method O2 Flow Rate 04/05/25 07:47 Nasal Cannula 4 04/05/25 06:44 Nasal Cannula 4 04/05/25 05:00 BiPAP 04/05/25 04:00 98.1 F 47 L 16 119/62 98 BiPAP 2 04/05/25 03:58 04/05/25 03:00 BiPAP 04/05/25 01:00 Nasal Cannula 4 04/05/25 00:00 98.3 F 54 L 16 122/68 97 Nasal Cannula 6 04/04/25 23:00 Nasal Cannula 4 04/04/25 21:00 Nasal Cannula 4 04/04/25 20:00 97.9 F 53 L 18 136/81 98 Non-Rebreather 04/04/25 20:00 Nasal Cannula 4 04/04/25 18:55 Nasal Cannula 4 04/04/25 18:03 Nasal Cannula 4 04/04/25 17:00 Nasal Cannula 4 04/04/25 15:00 Venturi Mask 04/04/25 13:00 Non-Rebreather 04/04/25 12:00 97.6 F 43 L 16 120/68 93 L BiPAP 04/04/25 11:00 BiPAP 04/04/25 09:00 BiPAP 04/04/25 08:38 FiO2 04/05/25 07:47 04/05/25 06:44 04/05/25 05:00 04/05/25 04:00 04/05/25 03:58 45 04/05/25 03:00 04/05/25 01:00 04/05/25 00:00 04/04/25 23:00 04/04/25 21:00 04/04/25 20:00 04/04/25 20:00 04/04/25 18:55 04/04/25 18:03 04/04/25 17:00 04/04/25 15:00 04/04/25 13:00 04/04/25 12:00 04/04/25 11:00 04/04/25 09:00 04/04/25 08:38 45 Intake and Output 04/04/25 04/05/25 04/05/25 23:59 07:59 15:59 Output Total 200 / 750 Balance -200 / -750 Output: Output, Urine Amount 200 / 750 Other: Number of Unmeasured Voids 1 Weight 91.354 kg Patient Weight 04/05/25 23:59 Weight 91.354 kg Laboratory Results - last 24 hr 04/04/25 11:35: POC Glucose 116 H 04/04/25 16:17: POC Glucose 106 04/04/25 19:49: POC Glucose 106 04/05/25 05:12: POC Glucose 112 H 04/05/25 05:35: WBC 6.2, RBC 3.85 L, Hgb 10.1 L, Hct 34.9 L, MCV 90.6, MCH 26.2 L, MCHC 28.9 L, RDW 17.0, Plt Count 100 L, MPV 10.7 H, Neut % (Auto) 71.6, Lymph % (Auto) 15.9, Cavalier % (Auto) 8.9, Eos % (Auto) 1.8, Baso % (Auto) 0.3, Neut # (Auto) 4.4, Lymph # (Auto) 1.0, [place]alier # (Auto) 0.6, Eos # (Auto) 0.1, Baso # (Auto) 0.0, Sodium 141, Potassium 4.7, Chloride 98, Carbon Dioxide 39 H, Anion Gap 8.7, BUN 52 H, Creatinine 1.40 H, Estimated Creat Clear 42, Estimated GFR 36 L, Est GFR ( Amer) 43 L, Glucose 113 H, Calcium 9.3 I & O for Labs for Last 24 Hours: Intake & Output 04/02/25 04/03/25 04/04/25 04/05/25 23:59 23:59 23:59 23:59 Intake Total 920 / 920 515 / 515 0 / 0 Output Total 1600 / 1600 0 / 300 750 / 750 Balance -680 / -680 515 / 215 -750 / -750 Weight 86.5 kg 87.226 kg 91.354 kg 91.354 kg The patient's infection will respond to the chosen ABx?: Yes (SPUTUM UNCOLLECT ED, BLOOD CX NO GROWTH AT 48 HR, AFEBRILE OVER 24 HR) Is the patient receiving the right drug, dose, and route?: Yes Could a more targeted ABx be ordered?: No How long ABx needed (days)?: 7
[2025-04-05] MEDS: IRBESARTAN 300MG TABLET 300 MG PO (08:27)
[2025-04-05] MEDS: ACETAMINOPHEN 325MG TAB 650 MG PO (08:29)
[2025-04-05] MEDS: IPRATROPIUM/ALBUTEROL 3 ML NEB IH ×3 (09:05→19:04)
[2025-04-05] MEDS: SODIUM CHLORIDE 3% 15ML NEB 3 ML IH (09:05)
[2025-04-05 11:15] LABS: POC Glucose,Bedside 131 (70-110)
[2025-04-05] MEDS: ESCITALOPRAM 20MG TABLET 20 MG PO (16:16)
[2025-04-05] MEDS: PREGABALIN 25MG CAPSULE 75 MG PO ×2 (16:16→21:24)
[2025-04-05 16:28] LABS: POC Glucose,Bedside 119 (70-110)
--- NOTE | 2025-04-05 17:52 | PC.NURSE ---
PT IS RESTING IN BED. ALERT AND ORIENTED X2. PT HAS SLEPT ON AND OFF T/O THE SHIFT. WHEN PT IS AWAKE SHE IS VERY RESTLESS AND UNCOMFORTABLE. TURNED AND REPOSITIONED FREQUENTLY IN THE BED. PT HAS HAD MINIMAL PO INTAKE EVEN WITH STAFF ASSISTING WITH FEEDS AND OFFERING SEVERAL OPTIONS. LUNG SOUNDS DIMINISHED WITH RIGHT SIDED CRACKLES. CALLUS NOTED TO RIGHT FOOT. REDNESS NOTED TO BUTTOCKS. O2 SATURATION HAS MAINTAINED 90-93% ON 2 L . WILL CONTINUE TO MONITOR.
[2025-04-05 21:34] LABS: POC Glucose,Bedside 124 (70-110)
[2025-04-06] VITALS (10 sets, daily range): BP systolic 134–163; BP diastolic 55–75; PULSE 56–84; RESP 16–20; TEMP 36.6–36.9; O2SAT 90–97; BMI 34.4
[2025-04-06] MEDS: IPRATROPIUM/ALBUTEROL 3 ML NEB IH (06:00)
--- NOTE | 2025-04-06 06:32 | PC.NURSE ---
v/s, alert to self and place, pt on 2LNC. No acute events to report. Plan of care ongoing.
[2025-04-06 06:55] LABS: POC Glucose,Bedside 118 (70-110)
--- NOTE | 2025-04-06 07:58 | EXP.PN ---
Subjective *Date: 04/06/25 *Time: 08:47 Interval history: Patient feels jittery this morning. She just had a DuoNeb treatment. She denies chest pain and shortness of breath. She states she is not hurting anywhere today and does feel somewhat better. She did sleep some last night. She is eating rather poorly. States she could not get to her dinner last night. She does hate being in the bed and would like to be up and mobile. She hates the BiPAP. She states it hurts. She is concerned about the absence of her rings. And worries about this. Exam Data for Last 24 hours Vital signs and Labs for Last 24 Hours: Temp Pulse Resp BP Pulse Ox O2 Del Method O2 Flow Rate 98.3 F 56 L 20 134/63 93 L Nasal Cannula 2 04/06/25 04:00 04/06/25 06:00 04/06/25 04:00 04/06/25 04:00 04/06/25 06:00 04/06/25 06:31 04/06/25 06:31 FiO2 45 04/05/25 03:58 Laboratory Results - last 24 hr 04/05/25 11:05: POC Glucose 131 H 04/05/25 16:19: POC Glucose 119 H 04/05/25 21:27: POC Glucose 124 H 04/06/25 06:48: POC Glucose 118 H I & O for Last 24 hours: Intake & Output 04/03/25 04/04/25 04/05/25 04/06/25 11:59 11:59 11:59 11:59 Intake Total 600 / 600 275 / 275 260 / 260 240 / 240 Output Total 600 / 600 300 / 300 450 / 450 750 / 750 Balance 0 / 0 -25 / -25 -190 / -190 -510 / -510 Weight 192 lb 4.8 oz 201 lb 6.4 oz 201 lb 6.417 oz 201 lb 6.417 oz Microbiology Reports for the Last 24 Hours: Microbiology 04/01/25 20:12 Blood Blood Culture - Preliminary NO GROWTH AFTER 4 DAYS 04/01/25 20:28 Blood Blood Culture - Preliminary NO GROWTH AFTER 4 DAYS Constitutional Constitutional: no acute distress Comments: Lying on her side and is wide-awake. Calls me by name. *Routine Respiratory Exam Respiratory: Present diminished air movement (Much improved today. Better inspiratory effort. Few scattered crackles.) *Routine Cardiovascular Exam Cardiovascular: Present RRR *Routine Abdominal Exam Abdominal: Present soft and normoactive bowel sounds; Absent tenderness *Routine Extremities Exam Extremities: Absent edema *Routine Neurological Exam Neurological: Present alert and oriented X3 Assessment and Plan *Assessment and plan (1) Acute hypercapnic respiratory failure: Status: Acute Category: Medical Code(s): J96.02 - Acute respiratory failure with hypercapnia (2) Pneumonia: Status: Acute Qualifiers: Laterality: right Lung location: middle lobe of lung Pneumonia type: due to unspecified organism Qualified Code(s): J18.9 - Pneumonia, unspecified organism Category: Medical Code(s): J18.9 - Pneumonia, unspecified organism (3) Acute exacerbation of chronic obstructive pulmonary disease: Status: Acute Category: Medical Code(s): J44.1 - Chronic obstructive pulmonary disease with (acute) exacerbation (4) Pulmonary edema: Status: Acute Qualifiers: Chronicity: acute Qualified Code(s): J81.0 - Acute pulmonary edema Category: Medical Code(s): J81.1 - Chronic pulmonary edema (5) General weakness: Status: Acute Category: Medical Code(s): R53.1 - Weakness (6) RICHIE (acute kidney injury): Status: Acute Category: Medical Code(s): N17.9 - Acute kidney failure, unspecified (7) Asthma: Status: Acute Qualifiers: Asthma complication type: uncomplicated Asthma persistence: persistent Asthma severity: moderate Qualified Code(s): J45.40 - Moderate persistent asthma, uncomplicated Category: Medical Code(s): J45.909 - Unspecified asthma, uncomplicated (8) DM type 2 (diabetes mellitus, type 2): Status: Acute Qualifiers: Chronic kidney disease stage: stage 3 (moderate) Chronic kidney disease stage 3 subtype: stage 3b (GFR 30-44) Diabetes mellitus complication detail: with chronic kidney disease Diabetes mellitus ferry terminal agent insulin use: unspecified ferry terminal agent insulin use status Category: Medical Code(s): E11.9 - Type 2 diabetes mellitus without complications (9) Hypertension: Status: Acute Qualifiers: Hypertension type: primary hypertension Qualified Code(s): I10 - Essential (primary) hypertension Category: Medical Code(s): I10 - Essential (primary) hypertension (10) Neuropathy: Status: Acute Category: Medical Code(s): G62.9 - Polyneuropathy, unspecified (11) Depression: Status: Acute Qualifiers: Depression Type: unspecified Qualified Code(s): F32.A - Depression, unspecified Category: Medical Code(s): F32.A - Depression, unspecified (12) GERD (gastroesophageal reflux disease): Status: Acute Qualifiers: Esophagitis presence: esophagitis presence not specified Qualified Code(s): K21.9 - Gastro-esophageal reflux disease without esophagitis Category: Medical Code(s): K21.9 - Gastro-esophageal reflux disease without esophagitis (13) Hyperlipidemia: Status: Acute Qualifiers: Hyperlipidemia type: unspecified Qualified Code(s): E78.5 - Hyperlipidemia, unspecified Category: Medical Code(s): E78.5 - Hyperlipidemia, unspecified (14) Anemia: Status: Acute Category: Medical Code(s): D64.9 - Anemia, unspecified Plan Will change DuoNebs to Xopenex due to nervousness/tremors. Nurses will assist patient with her breakfast. She needs to be out of bed. Repeat chest x-ray today. Dr. Adamson entry - Saw patient, agree with above note. She feels better today, plan OOB to chair today.
--- NOTE | 2025-04-06 08:04 | XR_ITS ---
FINAL REPORT CLINICAL HISTORY: Pneumonia/CHF FINDINGS: PA and lateral views of the chest are obtained. Heart is borderline in size. There is bilateral lower lobe airspace disease which is likely atelectasis. Trace bilateral pleural effusions are seen. There is no pneumothorax. Osseous structures demonstrate a fracture of a lower thoracic vertebrae which is age-indeterminate. However, this was present on recent chest CT. IMPRESSION: Bilateral lower lobe airspace disease, likely atelectasis, with trace bilateral pleural effusions. Reviewed, Interpreted and Dictated by Michelle Frank MD Transcribed by Laina Khalil Authenticated and [facility]
[2025-04-06] MEDS: IRBESARTAN 300MG TABLET 300 MG PO (08:28)
[2025-04-06] MEDS: ESCITALOPRAM 20MG TABLET 20 MG PO (08:28)
[2025-04-06] MEDS: PREGABALIN 25MG CAPSULE 75 MG PO ×2 (08:31→21:25)
[2025-04-06 10:59] LABS: POC Glucose,Bedside 147 (70-110)
--- NOTE | 2025-04-06 17:41 | PC.NURSE ---
pt A/O x4, been up to the chair today and went to xray via wheelchair, no complaints at this time, Call light in reach
[2025-04-06 21:44] LABS: POC Glucose,Bedside 121 (70-110)
[2025-04-07] VITALS: BP 134/56; PULSE 55; RESP 20; TEMP 36.6; O2SAT 94
[2025-04-07 04:00] VITALS: BP 121/41; PULSE 57; RESP 19; TEMP 36.7; O2SAT 96; BMI 34.4
--- NOTE | 2025-04-07 04:34 | PC.NURSE ---
Pt is A&Ox4 and currently tolerating 2L well at this time. Pt lung sounds remain diminished throughout. Pt has rested well this shift and has tolerated Q2 turns well at pt request. Pt denies pain and needs when asked.
[2025-04-07] MEDS: ACETAMINOPHEN 325MG TAB 650 MG PO (05:21)
[2025-04-07 06:06] VITALS: PULSE 86; PULSE 88; O2SAT 90
[2025-04-07 08:00] VITALS: BP 123/59; PULSE 74; RESP 20; TEMP 36.9; O2SAT 94
--- NOTE | 2025-04-07 08:06 | EXP.ACUTE.PN ---
Subjective *Date: 04/07/25 *Time: 08:30 Interval history: Patient states she is feeling better today. She denies any pain. She did not rest well and wants to go home. Medical Exam Vital signs and Labs for Last 24 Hours: Vital Signs Temp Pulse Pulse Resp BP Pulse Ox O2 Del Method 04/07/25 06:37 Nasal Cannula 04/07/25 06:06 88 04/07/25 06:06 86 04/07/25 06:06 90 L Nasal Cannula 04/07/25 05:00 Nasal Cannula 04/07/25 04:00 98.1 F 57 L 19 121/41 L 96 Nasal Cannula 04/07/25 02:48 Nasal Cannula 04/07/25 01:00 Nasal Cannula 04/07/25 00:00 Nasal Cannula 04/07/25 00:00 97.8 F 55 L 20 134/56 L 94 L Nasal Cannula 04/06/25 22:44 Nasal Cannula 04/06/25 22:16 Nasal Cannula 04/06/25 21:00 Nasal Cannula 04/06/25 20:00 Nasal Cannula 04/06/25 20:00 98.2 F 57 L 19 148/67 H 96 Nasal Cannula 04/06/25 19:40 77 04/06/25 19:30 84 04/06/25 18:41 Nasal Cannula 04/06/25 17:00 Nasal Cannula 04/06/25 16:00 98.3 F 78 20 145/62 H 97 04/06/25 15:00 Room Air 04/06/25 13:00 Room Air 04/06/25 12:57 82 04/06/25 12:57 80 04/06/25 11:54 98.5 F 62 18 141/75 H 97 Nasal Cannula 04/06/25 11:00 Room Air 04/06/25 09:00 Nasal Cannula O2 Flow Rate FiO2 04/07/25 06:37 2 04/07/25 06:06 04/07/25 06:06 04/07/25 06:06 2 04/07/25 05:00 2 04/07/25 04:00 2 04/07/25 02:48 2 04/07/25 01:00 2 04/07/25 00:00 2 04/07/25 00:00 2 04/06/25 22:44 2 04/06/25 22:16 2 28 04/06/25 21:00 2 04/06/25 20:00 2 04/06/25 20:00 2 04/06/25 19:40 04/06/25 19:30 04/06/25 18:41 2 04/06/25 17:00 2 04/06/25 16:00 2 04/06/25 15:00 04/06/25 13:00 04/06/25 12:57 04/06/25 12:57 04/06/25 11:54 2 04/06/25 11:00 04/06/25 09:00 2 Intake and Output 04/06/25 04/07/25 04/07/25 19:59 03:59 11:59 Intake Total 360 / 600 240 / 600 Output Total 250 / 550 300 / 550 Balance 110 / 50 -60 / 50 Intake: Intake, Oral Amount 360 / 600 240 / 600 Output: Output, Urine Amount 250 / 550 300 / 550 Other: Number of Unmeasured Voids 0 0 Weight 201 lb 6.417 oz Patient Weight 04/07/25 11:59 Weight 201 lb 6.417 oz Laboratory Results - last 24 hr 04/06/25 10:51: POC Glucose 147 H 04/06/25 21:24: POC Glucose 121 H I & O for Labs for Last 24 Hours: Intake & Output 04/04/25 04/05/25 04/06/25 04/07/25 11:59 11:59 11:59 11:59 Intake Total 275 / 275 260 / 260 510 / 510 600 / 600 Output Total 300 / 550 450 / 950 750 / 750 550 / 550 Balance -25 / -275 -190 / -690 -240 / -240 50 / 50 Weight 201 lb 6.4 oz 201 lb 6.417 oz 201 lb 6.417 oz 201 lb 6.417 oz Microbiology Reports for the Last 24 Hours: Microbiology 04/01/25 20:12 Blood Blood Culture - Final NO GROWTH AFTER 5 DAYS 04/01/25 20:28 Blood Blood Culture - Final NO GROWTH AFTER 5 DAYS Constitutional: Present no acute distress Respiratory: Present decreased breath sounds (bases); Absent respiratory distress or wheezes Cardiac: Present Regular Rhythm GI: Present soft; Absent distention or tenderness Neuro: Present alert and awake Assessment and Plan *Assessment and plan (1) Acute hypercapnic respiratory failure: Status: Acute Category: Medical Code(s): J96.02 - Acute respiratory failure with hypercapnia (2) Pneumonia: Status: Acute Qualifiers: Laterality: right Lung location: middle lobe of lung Pneumonia type: due to unspecified organism Qualified Code(s): J18.9 - Pneumonia, unspecified organism Category: Medical Code(s): J18.9 - Pneumonia, unspecified organism (3) Acute exacerbation of chronic obstructive pulmonary disease: Status: Acute Category: Medical Code(s): J44.1 - Chronic obstructive pulmonary disease with (acute) exacerbation (4) Pulmonary edema: Status: Acute Qualifiers: Chronicity: acute Qualified Code(s): J81.0 - Acute pulmonary edema Category: Medical Code(s): J81.1 - Chronic pulmonary edema (5) General weakness: Status: Acute Category: Medical Code(s): R53.1 - Weakness (6) RICHIE (acute kidney injury): Status: Acute Category: Medical Code(s): N17.9 - Acute kidney failure, unspecified (7) Asthma: Status: Acute Qualifiers: Asthma complication type: uncomplicated Asthma persistence: persistent Asthma severity: moderate Qualified Code(s): J45.40 - Moderate persistent asthma, uncomplicated Category: Medical Code(s): J45.909 - Unspecified asthma, uncomplicated (8) DM type 2 (diabetes mellitus, type 2): Status: Acute Qualifiers: Chronic kidney disease stage: stage 3 (moderate) Chronic kidney disease stage 3 subtype: stage 3b (GFR 30-44) Diabetes mellitus complication detail: with chronic kidney disease Diabetes mellitus custodial insulin use: unspecified custodial insulin use status Category: Medical Code(s): E11.9 - Type 2 diabetes mellitus without complications (9) Hypertension: Status: Acute Qualifiers: Hypertension type: primary hypertension Qualified Code(s): I10 - Essential (primary) hypertension Category: Medical Code(s): I10 - Essential (primary) hypertension (10) Neuropathy: Status: Acute Category: Medical Code(s): G62.9 - Polyneuropathy, unspecified (11) Depression: Status: Acute Qualifiers: Depression Type: unspecified Qualified Code(s): F32.A - Depression, unspecified Category: Medical Code(s): F32.A - Depression, unspecified (12) GERD (gastroesophageal reflux disease): Status: Acute Qualifiers: Esophagitis presence: esophagitis presence not specified Qualified Code(s): K21.9 - Gastro-esophageal reflux disease without esophagitis Category: Medical Code(s): K21.9 - Gastro-esophageal reflux disease without esophagitis (13) Hyperlipidemia: Status: Acute Qualifiers: Hyperlipidemia type: unspecified Qualified Code(s): E78.5 - Hyperlipidemia, unspecified Category: Medical Code(s): E78.5 - Hyperlipidemia, unspecified (14) Anemia: Status: Acute Category: Medical Code(s): D64.9 - Anemia, unspecified Plan Possible discharge soon. Will discuss with Dr. Adamson. CXR from yesterday showed bilateral lower lobe airspace disease, likely atelectasis, with trace bilateral pleural effusions. Dr. Adamson entry - Saw patient, agree with above note. OK to discharge to [facility] today into skilled care, with plan to transition back to assisted living there as soon as possible.
[2025-04-07] MEDS: PREGABALIN 25MG CAPSULE 75 MG PO (08:52)
[2025-04-07] MEDS: IRBESARTAN 300MG TABLET 300 MG PO (08:53)
[2025-04-07] MEDS: ESCITALOPRAM 20MG TABLET 20 MG PO (08:53)
--- NOTE | 2025-04-07 10:00 | EXP.DC.SUM ---
General Admission date:: 04/01/25 Discharge date: 04/07/25 HPI HPI HPI: Patient is an 84-year-old female who presented to the emergency department from [facility] with concern for a stroke alert. Per EMS, had increased lethargy over the last several days, nursing facility had reported a possible right-sided facial droop. Nursing facility was unable to report last known normal. They felt that her speech was also worse than her usual. Patient does have a history of COPD, wears 4 L nasal cannula at baseline. Patient had a normal blood sugar with EMS. At this time, patient denies any symptoms. Patient reports mild shortness of breath but no chest pain. Patient denies any abdominal pain nausea vomiting. Does report some mild decreased oral intake. 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 Patient's labs were reviewed and interpreted by myself and patient's CBC showed no leukocytosis, hemoglobin was stable, INR was mildly elevated at 1.11, VBG showed mild acidosis at 7.31 with hypercapnia with a CO2 of 70. Patient was mildly hypernatremic at 146, had a mild RICHIE with a creatinine of 1.4. Patient's UA showed no evidence of infection. Patient CT scans including CT head, CTA head and neck and CT chest showed no intracranial ischemia, no LVO, no increased intracranial hemorrhage. CT chest showed possible edema and concern for perihilar infiltrate. Given that patient's CT scan showed no intracranial hemorrhage or ischemia, I had low concern for stroke at this time after further discussion with the nursing facility stating that patient symptoms were only lethargy over the last 3 days with unknown last known normal. Patient was outside the window for thrombolytics or further intervention. Patient was given 3 DuoNebs given her decreased breath sounds as well as Solu-Medrol with concern for COPD exacerbation. Given patient CT scan showed possible perihilar infiltrate, patient was given Rocephin as well as azithromycin for COPD coverage as well as community-acquired pneumonia. Patient's repeat VBG was obtained which showed worsening acidosis and increasing CO2 therefore patient was placed on BiPAP. Hospital medicine was consulted and patient was admitted to their service for COPD exacerbation, hypercapnic respiratory failure as well as pneumonia and RICHIE. (above as per ER physican) Of note, patient had been on antibiotics for a UTI and was then switched to zithromax and cefdinir yesterday for possible pneumonia on CXR. She states she feels much better this am. She did not like wearing the BIPAP and this was removed during the night. She is now on nasal oxygen. Hospital Course Hospital Course Hospital Course: The patient was placed on BiPAP and her confusion improved. She did not tolerate the BiPAP and was changed to nasal oxygen. She began feeling better and was continued on antibiotics. Her respiratory panel was negative. The CTA of her chest showed a right sided pneumonia and some pulmonary edema. She had a skin reaction after receiving Zithromax and Rocephin IV, so her antibiotics were changed to Levaquin. She did begin improving. Her oxygen sats declined on the morning of 04/04/2025 and she initially refused BiPAP, but then finally agreed and improved with the BiPAP. Nebs were also added. She became jittery after the DuoNeb treatments. The DuoNebs were changed to Xopenex nebs due to nervousness/tremors. A repeat x-ray was ordered. By 04/07/2025 she was feeling better and was anxious to go back to the custodial. Her chest x-ray showed bilateral lower lobe airspace disease likely atelectasis with trace bilateral pleural effusions. It was felt she was stable to be discharged to [facility] into the skilled care with plans to transition back to assisted living as soon as possible. Exam Data for Last 24 hours Vital signs and Labs for Last 24 Hours: Temp Pulse Resp BP Pulse Ox O2 Del Method O2 Flow Rate 98.4 F 74 20 123/59 L 94 L Nasal Cannula 2 04/07/25 08:00 04/07/25 08:00 04/07/25 08:00 04/07/25 08:00 04/07/25 08:00 04/07/25 09:00 04/07/25 09:00 FiO2 28 04/06/25 22:16 Laboratory Results - last 24 hr 04/06/25 10:51: POC Glucose 147 H 04/06/25 21:24: POC Glucose 121 H I & O for Last 24 hours: Intake & Output 04/04/25 04/05/25 04/06/25 04/07/25 11:59 11:59 11:59 11:59 Intake Total 275 / 275 260 / 260 510 / 510 600 / 600 Output Total 300 / 550 450 / 950 750 / 750 550 / 550 Balance -25 / -275 -190 / -690 -240 / -240 50 / 50 Weight 201 lb 6.4 oz 201 lb 6.417 oz 201 lb 6.417 oz 201 lb 6.417 oz Microbiology Reports for the Last 24 Hours: Microbiology 04/01/25 20:12 Blood Blood Culture - Final NO GROWTH AFTER 5 DAYS 04/01/25 20:28 Blood Blood Culture - Final NO GROWTH AFTER 5 DAYS Narrative: Constitutional Constitutional: no acute distress *Routine HEENT Exam Head: Present normocephalic and atraumatic Eye: Present EOMI and PERRL ENT: Present mucous membranes dry *Routine Neck Exam Neck: Present supple and full ROM *Routine Respiratory Exam Respiratory: Present decreased breath sounds, rhonchi and wheezes *Routine Cardiovascular Exam Cardiovascular: Present RRR and ectopic (frequent ectopics) *Routine Abdominal Exam Abdominal: Present soft and normoactive bowel sounds; Absent tenderness *Routine Rectal Exam Rectal:: deferred *Routine Genitalia Exam Genitalia:: deferred *Routine Extremities Exam Extremities: Present edema (trace bilateral LE's); Absent cyanosis or clubbing *Routine Skin Exam Skin: Present intact; Absent erythema *Routine Neurological Exam Neurological: Present alert and oriented X3 Results Data Completed and Pending Labs on day of discharge: Labs from last 24 hours 04/06/25 04/06/25 21:24 10:51 POC Glucose 121 H 147 H DS: Diagnosis Discharge Diagnosis (1) Acute hypercapnic respiratory failure: Status: Acute Code(s): J96.02 - Acute respiratory failure with hypercapnia (2) Pneumonia: Status: Acute Code(s): J18.9 - Pneumonia, unspecified organism Qualifiers: Laterality: right Lung location: middle lobe of lung Pneumonia type: due to unspecified organism Qualified Code(s): J18.9 - Pneumonia, unspecified organism (3) Acute exacerbation of chronic obstructive pulmonary disease: Status: Acute Code(s): J44.1 - Chronic obstructive pulmonary disease with (acute) exacerbation (4) Pulmonary edema: Status: Acute Code(s): J81.1 - Chronic pulmonary edema Qualifiers: Chronicity: acute Qualified Code(s): J81.0 - Acute pulmonary edema (5) General weakness: Status: Acute Code(s): R53.1 - Weakness (6) RICHIE (acute kidney injury): Status: Acute Code(s): N17.9 - Acute kidney failure, unspecified (7) Asthma: Status: Acute Code(s): J45.909 - Unspecified asthma, uncomplicated Qualifiers: Asthma complication type: uncomplicated Asthma persistence: persistent Asthma severity: moderate Qualified Code(s): J45.40 - Moderate persistent asthma, uncomplicated (8) DM type 2 (diabetes mellitus, type 2): Status: Acute Code(s): E11.9 - Type 2 diabetes mellitus without complications Qualifiers: Chronic kidney disease stage: stage 3 (moderate) Chronic kidney disease stage 3 subtype: stage 3b (GFR 30-44) Diabetes mellitus complication detail: with chronic kidney disease Diabetes mellitus [facility] insulin use: unspecified long term acute care registered nurse insulin use status (9) Hypertension: Status: Acute Code(s): I10 - Essential (primary) hypertension Qualifiers: Hypertension type: primary hypertension Qualified Code(s): I10 - Essential (primary) hypertension (10) Neuropathy: Status: Acute Code(s): G62.9 - Polyneuropathy, unspecified (11) Depression: Status: Acute Code(s): F32.A - Depression, unspecified Qualifiers: Depression Type: unspecified Qualified Code(s): F32.A - Depression, unspecified (12) GERD (gastroesophageal reflux disease): Status: Acute Code(s): K21.9 - Gastro-esophageal reflux disease without esophagitis Qualifiers: Esophagitis presence: esophagitis presence not specified Qualified Code(s): K21.9 - Gastro-esophageal reflux disease without esophagitis (13) Hyperlipidemia: Status: Acute Code(s): E78.5 - Hyperlipidemia, unspecified Qualifiers: Hyperlipidemia type: unspecified Qualified Code(s): E78.5 - Hyperlipidemia, unspecified (14) Anemia: Status: Acute Code(s): D64.9 - Anemia, unspecified Meds Home Medications and Allergies Home Medications ?Medication ?Instructions ?Recorded ?Confirmed ?Type metformin 500 mg tablet 500 mg PO BIDWMEAL 03/06/18 04/01/25 History simvastatin 20 mg tablet 20 mg PO HS 03/06/18 04/01/25 History escitalopram oxalate 20 mg tablet 20 mg PO DAILY 11/10/23 04/01/25 History fluticasone 250 mcg-salmeterol 50 1 ea inhalation BID 11/10/23 04/02/25 History mcg/dose blistr powdr for inhalation (Ishan Jameson) oxybutynin chloride 10 mg 10 mg PO DAILY 11/10/23 04/02/25 History tablet,extended release 24 hr irbesartan 300 mg tablet 300 mg PO DAILY #30 tabs 02/25/24 04/01/25 Rx esomeprazole magnesium 40 mg 40 mg PO DAILY 05/09/24 04/01/25 History capsule,delayed release metoprolol succinate 50 mg 50 mg PO DAILY 05/09/24 04/01/25 History tablet,extended release 24 hr tizanidine 2 mg tablet 2 mg PO HSP PRN Muscle Pain 05/09/24 04/01/25 History fluticasone propionate 50 2 spray intranasal DAILY 05/12/24 04/01/25 History mcg/actuation nasal spray,suspension calcium carbonate (Calcium 600) 600 mg PO DAILY 07/08/24 04/01/25 History glucosamine sulfate 2KCl 1,000 mg 1,000 mg PO DAILY 07/08/24 04/01/25 History tablet mecobalamin (vitamin B12) 1,000 1,000 mcg PO DAILY 07/08/24 04/01/25 History mcg chewable tablet (B12 Active) multivitamin 1 tab PO DAILY 07/08/24 04/01/25 History vit C 250 mg-vit E 90 mg-zinc 40 1 tab PO BID 07/08/24 04/02/25 History mg-copper 1 [id number] capsule (PreserVision AREDS-2) furosemide 40 mg tablet 40 mg PO DAILY 08/08/24 04/01/25 History dapagliflozin propanediol 10 mg 10 mg PO DAILY #30 tabs 08/14/24 04/01/25 Rx tablet (Farxiga) spironolactone 50 mg tablet 50 mg PO DAILY #30 tabs 08/14/24 04/01/25 Rx acetaminophen 500 mg tablet 500 mg PO Q6HP PRN Mild Pain 04/02/25 04/02/25 History (Scale Score 1-4) ipratropium 0.5 mg-albuterol 3 mg 3 ml inhalation Q6HP PRN Shortness 04/02/25 04/02/25 History (2.5 mg base)/3 mL nebulization Of Breath soln lidocaine 4 % topical patch 1 - 3 patch topical DAILY 04/02/25 04/02/25 History montelukast 10 mg tablet 10 mg PO PM 04/02/25 04/02/25 History levofloxacin 250 mg tablet 250 mg PO DAILY #5 tabs 04/07/25 Rx pregabalin 75 mg capsule (Lyrica) 75 mg PO BID #60 caps 04/07/25 Rx New Prescriptions to Start Prescriptions: levofloxacin Allan Adamson pregabalin [Lyrica] Allan Adamson Allergies Allergy/AdvReac Type Severity Reaction Status Date / Time pollen extracts (POLLEN Allergy Intermediate ASTHMA Verified 09/29/24 15:33 EXTRACTS) azithromycin Allergy Redness of Verified 04/01/25 22:47 Skin ceftriaxone (From Rocephin) Allergy Redness of Verified 04/01/25 22:48 Skin Discharge Plan Disposition Patient Disposition: er [facility] Condition: Fair Discharge Order Discharge Orders: Discharge Order (Routine); Ordered 04/07/25 Ordered By: Allan Adamson Follow up Plan Follow up with: Allan Adamson MD [Primary Care Provider, Medical] - Enter time for follow up Referral Note: At [facility] Prescriptions/Medication Reconciliation: New levofloxacin 250 mg tablet 250 mg PO DAILY Qty: 5 0RF Continued fluticasone propion-salmeterol [Wixela Inhub] 250-50 mcg/dose blister with device 1 ea INHALATION BID oxybutynin chloride 10 mg tablet extended release 24hr 10 mg PO DAILY Patient Comments: TAKE 2 TABLETS BY MOUTH ONCE DAILY escitalopram oxalate 20 mg tablet 20 mg PO DAILY Patient Comments: TAKE 1 TABLET BY MOUTH ONCE DAILY irbesartan 300 mg Tablet 300 mg PO DAILY Qty: 30 0RF calcium carbonate [Calcium 600] 600 mg calcium (1,500 mg) Tablet 600 mg PO DAILY PreserVision AREDS-2 250-90-40-1 mg Capsule 1 tab PO BID multivitamin Tablet 1 tab PO DAILY glucosamine sulfate 2KCl 1,000 mg Tablet 1,000 mg PO DAILY Rx Instructions: administer with meals mecobalamin (vitamin B12) [B12 Active] 1,000 mcg Tablet,Chewable 1,000 mcg PO DAILY ipratropium-albuterol 0.5 mg-3 mg(2.5 mg base)/3 mL Solution For Nebulization 3 ml INHALATION Q6HP PRN (Reason: Shortness Of Breath) lidocaine 4 % Adhesive Patch,Medicated 1 - 3 patch TOPICAL DAILY acetaminophen 500 mg Tablet 500 mg PO Q6HP PRN (Reason: Mild Pain (Scale Score 1-4)) montelukast 10 mg tablet 10 mg PO PM pregabalin [Lyrica] 75 capsule 75 mg PO BID Qty: 60 0RF metformin 500 MG tablet 500 mg PO BIDWMEAL simvastatin 20 tablet 20 mg PO HS metoprolol succinate 50 mg tablet extended release 24 hr 50 mg PO DAILY Patient Comments: TAKE 1 TABLET BY MOUTH ONCE DAILY esomeprazole magnesium 40 mg capsule,delayed release(DR/EC) 40 mg PO DAILY tizanidine 2 mg tablet 2 mg PO HSP PRN (Reason: Muscle Pain) fluticasone propionate 50 mcg/actuation [place],Suspension 2 spray INTRANASAL DAILY Rx Instructions: administer into each nostril furosemide 40 mg Tablet 40 mg PO DAILY spironolactone 50 mg tablet 50 mg PO DAILY Qty: 30 0RF dapagliflozin propanediol [Farxiga] 10 mg tablet 10 mg PO DAILY Qty: 30 0RF Discontinued cefdinir 300 mg Capsule 300 mg PO BID azithromycin 250 mg Tablet 250 mg PO DAILY Problem Reconciliation Problems Reviewed?: Yes Patient Discharge Instructions ACTIVITY: Continue current activity DIET: continue same diet Patient Instructions: DI for Respiratory Failure, DI for Acute Kidney Injury, Stop Light Pneumonia, Stop Light COPD Print Language: Vietnamese Providers Primary Care Provider: Allan Adamson Admit Provider: Carlos Vences Attending Provider: Allan Adamson
--- NOTE | 2025-04-07 10:58 | PC.NURSE ---
attepted to call report 5 times with no answer from nurse desk.
--- NOTE | 2025-04-07 11:01 | PC.NURSE ---
REPORT GIVEN TO [facility]< TRANSPORT SETUP WITH EMS
== END 2025-04-07 11:30 | DRG 193 ==
LOC: ER 20:59 → ICU 21:27 → 2ND 04-02 18:19
PROVIDERS: Admitting Provider Family Medicine; Emergency Provider Student in an Organized Health Care Education/Training Program; PCP Family Medicine; Visit Provider Family Medicine
DX: J18.9 Pneumonia, unspecified organism (principal); G93.41 Metabolic encephalopathy; J96.02 Acute respiratory failure with hypercapnia; J96.21 Acute and chronic respiratory failure with hypoxia; J44.1 Chronic obstructive pulmonary disease with (acute) exacerbation; E87.20 Acidosis, unspecified; N17.9 Acute kidney failure, unspecified; E87.0 Hyperosmolality and hypernatremia; J44.0 Chronic obstructive pulmonary disease with (acute) lower respiratory infection; T36.3X5A Adverse effect of macrolides, initial encounter; T36.1X5A Adverse effect of cephalosporins and other beta-lactam antibiotics, initial encounter; Y92.239 Unspecified place in hospital as the place of occurrence of the external cause; E11.22 Type 2 diabetes mellitus with diabetic chronic kidney disease; N18.32 Chronic kidney disease, stage 3b; I12.9 Hypertensive chronic kidney disease with stage 1 through stage 4 chronic kidney disease, or unspecified chronic kidney disease; E11.40 Type 2 diabetes mellitus with diabetic neuropathy, unspecified; F32.A Depression, unspecified; K21.9 Gastro-esophageal reflux disease without esophagitis; E78.5 Hyperlipidemia, unspecified; G25.1 Drug-induced tremor; T48.6X5A Adverse effect of antiasthmatics, initial encounter; Z91.048 Other nonmedicinal substance allergy status; Z88.1 Allergy status to other antibiotic agents; Z79.84 Long term (current) use of oral hypoglycemic drugs; Z79.899 Other long term (current) drug therapy
CPT/HCPCS: 36415; 70450; 70496; 70498; 71046; 71275; 80048; 80053; 81001; 82803; 82962; 83735; 84439; 84443; 84484; 85025; 85610; 87040; 87633; 93005; 94640; 94660; 94761; 97116; 97163; 97166; 97530; J0456; J0696; J1200; J1938; J1956; J2405; J2919; J7050; J7120; Q9967

== ENCOUNTER 2025-05-08 11:36 | Inpatient (IN) | payer MEDICARE, BC, SELFPAY ==
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
--- OUTSIDE RECORDS SUMMARY | 2025-03-24 10:15 | XMS_ITS ---
Author Organization [facility] Address [address] [place] [id number] Care Team Providers Care Youtuber Name Role Phone Allan Adamson Primary Care Provider [phone] REASON FOR VISIT check up Encounters Encounter Location Date Provider Diagnosis [facility] [address] [place] [id number] 03/24/2025 Allan Adamson Plan Of Treatment No Information Progress Notes * CAMPOS MONTGOMERYDOB:1940 ( 84 yo F)Acc No.[id number]:03/24/2025 Progress Notes Patient: CAMPOS PHAM Provider: Meli Adamson M.D. :1940 A ge:84 Y S ex:Female Date:03/24/2025 Address:[address] [facility] [id number] Subjective: * Chief Complaints: * 1 . Check up. * Medical History: Objective: * Vitals: Assessment: Plan: * Treatment: * Images: Billing Information: * Visit Code: * Procedure Codes: * Electronic signature of Julia Adamson MD on 05/10/2025 at 07:23 AM EDT Sign off status: Pending * Provider: Meli Adamson M.D. Date: 03/24/2025 Generated for Chucho forrester/Rubia/eTjennyfersmitting on: 05/10/2025 07:23 AM EDT
--- OUTSIDE RECORDS SUMMARY | 2025-03-24 10:15 | XMS_ITS ---
Author Organization [facility] Address [address] [place] [id number] Care Team Providers Care Vice President Industrial Relations Name Role Phone Allan Adamson Primary Care Provider REASON FOR VISIT check up Encounters Encounter Location Date Provider Diagnosis [facility] [address] [place] [id number] 03/24/2025 Allan Adamson Plan Of Treatment No Information Progress Notes * CAMPOS MONTGOMERYDOB:1940 ( 84 yo F)Acc No.[id number]:03/24/2025 Progress Notes Patient: CAMPOS PHAM Provider: Meli Adamson M.D. :1940 A ge:84 Y S ex:Female Date:03/24/2025 Address:[address] [facility] [id number] Subjective: * Chief Complaints: * 1 . Check up. * Medical History: Objective: * Vitals: Assessment: Plan: * Treatment: * Images: Billing Information: * Visit Code: * Procedure Codes: * Electronic signature of Julia Adamson MD on 05/08/2025 at 11:50 AM EDT Sign off status: Pending * Provider: Meli Adamson M.D. Date: 03/24/2025 Generated for Chucho forrester/Rubia/eTransmitting on: 05/08/2025 11:50 AM EDT
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
[2025-05-08] VITALS (32 sets, daily range): BP systolic 85–168; BP diastolic 31–113; PULSE 54–80; RESP 3–24; TEMP 36.9–37; O2SAT 81–98; BMI 35.6; BMI 33.3
--- NOTE | 2025-05-08 11:35 | PC.NURSE ---
Patients FSBS is 99
--- NOTE | 2025-05-08 11:38 | CT_ITS ---
PROCEDURE INFORMATION: Exam: CT Head Without Contrast Exam date and time: 05/08/2025 11:43 AM Age: 84 years old Clinical indication: Stroke-like symptoms; Altered mental status/memory loss; Additional info: Possible stroke TECHNIQUE: Imaging protocol: Computed tomography of the head without contrast. Radiation optimization: All CT scans at this facility use at least one of these dose optimization techniques: automated exposure control; mA and/or kV adjustment per patient size (includes targeted exams where dose is matched to clinical indication); or iterative reconstruction. Other technique: STROKE PROTOCOL was implemented. COMPARISON: CT ANGIO HEAD 04/01/2025 6:40 PM FINDINGS: Brain: There is mild small vessel disease. There is no evidence of acute parenchymal hemorrhage, extra-axial collection, or acute infarction. There is no mass effect, midline shift, or downward herniation. Cerebral ventricles: No ventriculomegaly. Paranasal sinuses: Visualized sinuses are unremarkable. No fluid levels. Mastoid air cells: Visualized mastoid air cells are well aerated. Bones: Unremarkable. No acute fracture. Soft tissues: Unremarkable. IMPRESSION: Mild small vessel disease. No evidence of acute intracranial process. ASSESSMENT: ASPECTS ([place] Stroke Program Early CT Score) is 10.
--- NOTE | 2025-05-08 11:38 | CT_ITS ---
PROCEDURE INFORMATION: Exam: CTA Head With Contrast, Arteriography Exam date and time: 05/08/2025 11:48 AM Age: 84 years old Clinical indication: Stroke-like symptoms; Altered mental status/memory loss; Additional info: Possible stroke TECHNIQUE: Imaging protocol: Computed tomographic angiography of the head with contrast. Exam focused on the arteries. 3D rendering (Not supervised by radiologist): MIP and/or 3D reconstructed images were created by the technologist. Radiation optimization: All CT scans at this facility use at least one of these dose optimization techniques: automated exposure control; mA and/or kV adjustment per patient size (includes targeted exams where dose is matched to clinical indication); or iterative reconstruction. Contrast material: ISOVUE 370; Contrast volume: 80 ml; Contrast route: INTRAVENOUS (IV); COMPARISON: CT ANGIO HEAD 04/01/2025 6:40 PM FINDINGS: ANTERIOR CIRCULATION: Right internal carotid artery: Mild stenosis secondary to calcified plaque. Right middle cerebral artery: No occlusion or significant stenosis. No aneurysm. Right anterior cerebral artery: No occlusion or significant stenosis. No aneurysm. Left internal carotid artery: [id number] stenosis secondary to calcified plaque. Left middle cerebral artery: No occlusion or significant stenosis. No aneurysm. Left anterior cerebral artery: No occlusion or significant stenosis. No aneurysm. POSTERIOR CIRCULATION: Right vertebral artery: No occlusion or significant stenosis. No aneurysm. Left vertebral artery: No occlusion or significant stenosis. No aneurysm. Basilar artery: No occlusion or significant stenosis. No aneurysm. Right posterior cerebral artery: No occlusion or significant stenosis. No aneurysm. Left posterior cerebral artery: No occlusion or significant stenosis. No aneurysm. Brain: No definite mass, mass effect, or midline shift. Cerebral ventricles: No ventriculomegaly. Bones/joints: Unremarkable. No acute fracture. Soft tissues: Unremarkable. IMPRESSION: Bilateral internal carotid artery stenosis. Otherwise patent [id number].
--- NOTE | 2025-05-08 11:38 | CT_ITS ---
PROCEDURE INFORMATION: Exam: CTA Neck With Contrast Exam date and time: 05/08/2025 11:48 AM Age: 84 years old Clinical indication: Stroke-like symptoms; Altered mental status/memory loss; Additional info: Possible stroke TECHNIQUE: Imaging protocol: Computed tomographic angiography of the neck with contrast. Exam focused on the cervical segments of the vasculature. 3D rendering (Not supervised by radiologist): MIP and/or 3D reconstructed images were created by the technologist. Radiation optimization: All CT scans at this facility use at least one of these dose optimization techniques: automated exposure control; mA and/or kV adjustment per patient size (includes targeted exams where dose is matched to clinical indication); or iterative reconstruction. Contrast material: ISOVUE 370; Contrast volume: 80 ml; Contrast route: INTRAVENOUS (IV); COMPARISON: CT ANGIO NECK 04/01/2025 6:40 PM FINDINGS: Right common carotid artery: No stenosis. No dissection or occlusion. Right internal carotid artery: No stenosis of the extracranial segment. No dissection or occlusion. Right external carotid artery: No occlusion or stenosis of the origin. Left common carotid artery: No stenosis. No dissection or occlusion. Left internal carotid artery: There is stenosis of the carotid bulb/internal carotid artery origin measuring less than 50% secondary to calcified plaque. Left external carotid artery: No occlusion or stenosis of the origin. Right vertebral artery: No stenosis. No dissection or occlusion. Left vertebral artery: No stenosis. No dissection or occlusion. Lymph nodes: There is stable mediastinal lymphadenopathy identified. Soft tissues: Normal. No significant soft tissue swelling. Bones/joints: No acute fracture. IMPRESSION: Mild left internal carotid artery stenosis. REFERENCES: NASCET CRITERIA. The degree of stenosis in the cervical segment of the internal carotid artery is based on NASCET criteria. Normal is no stenosis. Mild is less than 50% stenosis. Moderate is 50-69% stenosis. Severe is 70% to 99% stenosis. Total occlusion is no detectable patent lumen.
[2025-05-08 11:41] LABS: POC Glucose,Bedside 99 gm/dL (70-110)
--- NOTE | 2025-05-08 11:41 | PC.NURSE ---
Called lab and Respiratory about the VBG.
[2025-05-08] MEDS: 0.9 % SODIUM CHLORIDE 50 ML VIAL IV (11:44)
[2025-05-08] MEDS: IOPAMIDOL-370 (76%);100ML BOTTLE 80 ML IV (11:44)
--- NOTE | 2025-05-08 11:44 | HMH.EDGENADL ---
Discharge Plan Disposition Patient Disposition: Admitted Clinical Impressions Clinical Impression: Pneumonia, RICHIE (acute kidney injury), Acute on chronic respiratory failure with hypoxia and hypercapnia, Acute hyperkalemia Discharge ED Provider: Jack Toledo Adult HPI General Chief complaint: Altered Mental Status Stated complaint: possible resp failure, decreased responsiveness Time Seen by Provider: 05/08/25 11:36 History of Present Illness HPI narrative: Kirstie Nascimento is an 84y female with a history of COPD on 2 L nasal cannula at baseline who presents to the emergency department via EMS as a possible stroke versus respiratory failure. Per EMS, patient is a resident at [facility] and they were told by staff that she was not acting herself this morning while eating breakfast. It is unknown at this time when her last known normal was. They state the patient was hypoxic on their arrival to the facility at 84% but improved with additional O2. She is mildly confused on arrival but knows where she is, knows the date. She does not know where she is. She follows commands. She complains of pain in both of her arms as well as some shortness of breath. Related Data Home Medications ?Medication ?Instructions ?Recorded ?Confirmed metformin 500 mg tablet 500 mg PO BIDWMEAL 03/06/18 05/08/25 simvastatin 20 mg tablet 20 mg PO HS 03/06/18 05/08/25 escitalopram oxalate 20 mg tablet 20 mg PO DAILY 11/10/23 05/08/25 fluticasone 250 mcg-salmeterol 50 1 ea inhalation BID 11/10/23 05/08/25 mcg/dose blistr powdr for inhalation (Wixela Inhub) oxybutynin chloride 10 mg 10 mg PO DAILY 11/10/23 05/08/25 tablet,extended release 24 hr esomeprazole magnesium 40 mg 40 mg PO DAILY 05/09/24 05/08/25 capsule,delayed release metoprolol succinate 50 mg 50 mg PO DAILY 05/09/24 05/08/25 tablet,extended release 24 hr tizanidine 2 mg tablet 2 mg PO HSP PRN Muscle Pain 05/09/24 05/08/25 fluticasone propionate 50 2 spray intranasal DAILY 05/12/24 05/08/25 mcg/actuation nasal spray,suspension calcium carbonate (Calcium 600) 600 mg PO DAILY 07/08/24 05/08/25 glucosamine sulfate 2KCl 1,000 mg 1,000 mg PO DAILY 07/08/24 05/08/25 tablet multivitamin 1 tab PO DAILY 07/08/24 05/08/25 furosemide 40 mg tablet 40 mg PO DAILY 08/08/24 05/08/25 acetaminophen 500 mg tablet 500 mg PO Q6HP PRN Mild Pain 04/02/25 05/08/25 (Scale Score 1-4) ipratropium 0.5 mg-albuterol 3 mg 3 ml inhalation Q6HP PRN Shortness 04/02/25 05/08/25 (2.5 mg base)/3 mL nebulization Of Breath soln lidocaine 4 % topical patch 1 - 3 patch topical DAILY 04/02/25 05/08/25 montelukast 10 mg tablet 10 mg PO PM 04/02/25 05/08/25 Previous Rx's ?Medication ?Instructions ?Recorded irbesartan 300 mg tablet 300 mg PO DAILY #30 tabs 02/25/24 dapagliflozin propanediol 10 mg 10 mg PO DAILY #30 tabs 08/14/24 tablet (Farxiga) spironolactone 50 mg tablet 50 mg PO DAILY #30 tabs 08/14/24 Allergies Allergy/AdvReac Type Severity Reaction Status Date / Time pollen extracts (POLLEN Allergy Intermediate ASTHMA Verified 09/29/24 15:33 EXTRACTS) azithromycin Allergy Redness of Verified 04/01/25 22:47 Skin ceftriaxone (From Rocephin) Allergy Redness of Verified 04/01/25 22:48 Skin PFSH PFSH Disclaimer: The information contained in this section may have been updated after the patient was seen, as this information can be updated by other users. Medical History Asthma Fibrosis of lung Decreased diffusion capacity of lung Pulmonary emphysema Chronic respiratory failure with hypoxia Recurrent pneumonia Acute and chronic respiratory failure with hypoxia Lumbar radiculopathy Degenerative disc disease, lumbar Paratracheal lymphadenopathy CAP (community acquired pneumonia) RICHIE (acute kidney injury) Hypertensive urgency Elevated brain natriuretic peptide (BNP) level Hypertensive emergency CKD (chronic kidney disease) stage 3, GFR 30-59 ml/min Pneumonia Allergic rhinitis Colon polyps Hemorrhoids, internal Osteoporosis Herpes zoster Closed left ankle fracture Closed left hip fracture Lumbar spinal stenosis Lumbar compression fracture Ocular melanoma COPD (chronic obstructive pulmonary disease) Mediastinal lymphadenopathy Sleep apnea Hyperlipidemia Neuropathy Depression GERD (gastroesophageal reflux disease) Arthritis Hypertension Diabetes Surgical History History of right knee joint replacement History of left knee replacement History of left hip replacement History of left ankle joint replacement 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 History of arthroplasty of right knee History of appendectomy Family History Heart attack Social History (Updated 05/08/25 @ 16:20 by Cece Lares RN) Smoking Status: Never smoker alcohol intake: never substance use type: denies use current occupational status: other Travel in the last 8 weeks?: None household members: none caffeine: Yes Have you lived/traveled outside [place] in past 30 days?: No Contact w/someone who lives/traveled outside US past 30 days?: No Exposure to someone with infectious disease in past 14 days?: No Do you have a fever (greater than 100.4 F or 38 C)?: No Have you tested positive for COVID-19?: No Exposed to someone with COVID-19 in past 14 days?: No Do you have a sore throat?: No Do you have a cough?: No Do you have any weakness?: No Are you experiencing any nausea/vomitting?: No Do you have any diarrhea?: No Are you experiencing any unusual bleeding?: No Do you have any muscle aches/pain?: No Do you have any abdominal pain?: No Are you experiencing loss of taste or smell?: No Other Medical History Have you received the Flu Vaccine for this season: No Have you received the Pneumonia Vaccine: No ROS Obtained: Yes Systems reviewed as appropriate & no additional complaints except as documented Physical Exam General General appearance: alert Comment: ill appearing Head Head exam: atraumatic Eye Eye exam: Present normal appearance, PERRL and EOMI ENT ENT exam: Present mucous membranes dry and normal external ear exam Neck Neck exam: Present full ROM Chest Chest inspection: Present symmetric chest wall rise Respiratory Respiratory exam: Present respiratory distress; Absent normal lung sounds bilaterally (rhonchi and diminished lung sounds bilaterally) Cardiovascular Cardiovascular exam: Present regular rate and normal rhythm Abdominal Exam Abdominal exam: Present soft and hernia; Absent tenderness or guarding Extremities Exam Extremities exam: Present normal inspection Back Exam Back exam: Present normal inspection Neurological Exam Neurological exam: Present alert and other; Absent oriented X3 (oriented to self and year, but not location) Skin Skin exam: Present warm and dry Medical Decision Making Medical Records Screening: Per USPSTF and CDC recommendations, given the prevalence of disease in our region, it is our hospital?s policy to screen for HIV and viral Hepatitis for all patients aged 18 and over and those with ongoing risk factors. Gabriele Inquiry Pt receiving controlled substance: No Vital Signs: 05/08/25 11:37 05/08/25 11:45 05/08/25 12:00 Temperature 98.4 F Temperature Source Rectal Pulse Rate 71 Pulse Rate [Right Radial] 69 Respiratory Rate 16 20 18 Blood Pressure 143/70 H Blood Pressure [Right Arm] 143/70 H Blood Pressure Mean [Right Arm] 94 Blood Pressure Source Blood Pressure Source [Right Arm] Automatic Cuff Blood Pressure Position Blood Pressure Position [Right Arm] Supine 02 Sat by Pulse Oximetry 88 L 81 L Oxygen Delivery Method Nasal Cannula Oxygen Flow Rate (LPM) 4 Fraction of Inspired Oxygen 05/08/25 12:17 05/08/25 12:20 05/08/25 12:30 Temperature Temperature Source Pulse Rate 77 78 Pulse Rate [Right Radial] Respiratory Rate 24 16 Blood Pressure 162/67 H 153/113 H Blood Pressure [Right Arm] Blood Pressure Mean [Right Arm] Blood Pressure Source Blood Pressure Source [Right Arm] Blood Pressure Position Blood Pressure Position [Right Arm] 02 Sat by Pulse Oximetry 92 L 94 L Oxygen Delivery Method BiPAP BiPAP Oxygen Flow Rate (LPM) 35 35 Fraction of Inspired Oxygen 35 05/08/25 13:00 05/08/25 13:30 05/08/25 14:01 Temperature Temperature Source Pulse Rate 74 74 77 Pulse Rate [Right Radial] Respiratory Rate 16 14 19 Blood Pressure 137/56 L 155/68 H 168/67 H Blood Pressure [Right Arm] Blood Pressure Mean [Right Arm] Blood Pressure Source Blood Pressure Source [Right Arm] Blood Pressure Position Blood Pressure Position [Right Arm] 02 Sat by Pulse Oximetry 94 L 98 97 Oxygen Delivery Method BiPAP BiPAP Oxygen Flow Rate (LPM) Fraction of Inspired Oxygen 05/08/25 14:40 Temperature 98.4 F Temperature Source Oral Pulse Rate 72 Pulse Rate [Right Radial] Respiratory Rate 18 Blood Pressure 160/62 H Blood Pressure [Right Arm] Blood Pressure Mean [Right Arm] Blood Pressure Source Automatic Cuff Blood Pressure Source [Right Arm] Blood Pressure Position Supine Blood Pressure Position [Right Arm] 02 Sat by Pulse Oximetry Oxygen Delivery Method BiPAP Oxygen Flow Rate (LPM) 35 Fraction of Inspired Oxygen Lab Data Lab Results 05/08/25 11:33: POC Glucose 99 05/08/25 11:39: VBG pH 7.23 L, VBG pCO2 64.4 H, VBG pO2 42.9 H, VBG HCO3 26.5, VBG Total CO2 28.5 H, VBG O2 Saturation 77.4 H, VBG Base Excess -1.0, VBG Lactic Acid 1.7 05/08/25 11:40: WBC 6.9, RBC 4.06 L, Hgb 11.4 L, Hct 36.5 L, MCV 89.9, MCH 28.1, MCHC 31.2 L, RDW 17.3, Plt Count 116 L, MPV 10.5 H, Neut % (Auto) 73.1, Lymph % (Auto) 14.5, Braxton % (Auto) 9.7 H, Eos % (Auto) 1.7, Baso % (Auto) 0.3, Neut # (Auto) 5.0, Lymph # (Auto) 1.0, Braxton # (Auto) 0.7, Eos # (Auto) 0.1, Baso # (Auto) 0.0, PT 12.4, INR 1.13 H, APTT 28.5, Sodium 142, Potassium 6.2 H*, Chloride 104, Carbon Dioxide 27, Anion Gap 17.2 H, BUN 91 H, Creatinine 3.90 H, Estimated GFR 11 L*, Est GFR ( Amer) 13 L*, Glucose 92, Calcium 9.5, Total Bilirubin 0.6, AST 39 H, ALT 12, Alkaline Phosphatase 77, Troponin I < 0.01, Total Protein 7.0, Albumin 4.1, Globulin 2.9, Albumin/Globulin Ratio 1.4, Triglycerides 182 H, Cholesterol 127 L, LDL Cholesterol Direct 54.72 L, VLDL Cholesterol 36, HDL Cholesterol 25 L, Cholesterol/HDL Ratio 5.1 H, Plasma/Serum Alcohol < 10 05/08/25 12:15: Urine Color Yellow, Urine Appearance Clear, Urine pH 5.5, Ur Specific [place] 1.015, Urine Protein Negative, Urine Glucose (UA) Negative, Urine Ketones Negative, Urine Blood Negative, Urine Nitrate Negative, Urine Bilirubin Negative, Urine Urobilinogen 0.2, Ur Leukocyte Esterase Negative, Urine RBC Occasional, Urine WBC None, Ur Squamous Epith Cells Occasional, Urine Bacteria None 05/08/25 13:20: VBG pH 7.20 L, VBG pCO2 62.6 H, VBG pO2 46.6 H, VBG HCO3 23.7, VBG Total CO2 25.6, VBG O2 Saturation 78.1 H, VBG Base Excess -4.4 L, VBG Lactic Acid 1.7 05/08/25 11:40 05/08/25 11:40 Orders (Tests/Meds): ED MEDICATIONS Generic Name Dose Route Start Last Admin Trade Name Rajesh PRN Reason Stop Dose Admin Levofloxacin/Dextrose 750 mg in 150 mls @ 100 mls/hr 05/08/25 13:30 05/08/25 16:05 Levofloxacin 750mg/150ml Premix IV 05/18/25 13:29 Infused Q24H GALA Infusion Sodium Chloride 10 ml 05/08/25 11:38 Sodium Chloride 0.9% 10ml Flush Syringe IV 06/07/25 11:37 NEEDED PRN Maintain IV Site Sodium Chloride 10 ml 05/08/25 11:43 05/08/25 11:45 Sodium Chloride 0.9% 10ml Syr (Rad Only) IV 06/07/25 11:42 10 ml NEEDED PRN Administration Maintain IV Site Discontinued Medications Generic Name Dose Route Start Last Admin Trade Name Rajesh PRN Reason Stop Dose Admin Albuterol/Ipratropium 9 ml 05/08/25 12:09 05/08/25 12:44 Ipratropium/Albuterol 3 Ml Neb IH 05/08/25 12:10 9 ml ONCE ONE Administration Albuterol/Ipratropium 3 ml 05/08/25 14:00 05/08/25 16:07 Ipratropium/Albuterol 3 Ml Neb IH 06/07/25 13:59 Not Given Q1H GALA Dextrose 50 ml 05/08/25 12:03 05/08/25 12:44 Dextrose 50% 50ml Syringe (Crash Cart) IVP 05/08/25 12:04 50 ml ONCE ONE Administration Magnesium Sulfate 2 gm in 50 mls @ 50 mls/hr 05/08/25 12:09 05/08/25 14:07 Magnesium Sulfate 2gm/50ml Premix IV 05/08/25 13:08 Infused ONCE ONE Infusion Lactated Ringer's 1,710 mls @ 855 mls/hr 05/08/25 13:55 05/08/25 16:30 Lactated Ringer's 1000 Ml Bag 30 ml/kg infuse over 2 hr (1710 ml) 05/08/25 15:54 Infused IV Infusion .Q2H ONE Insulin Human Regular 10 unit 05/08/25 12:03 05/08/25 12:44 Insulin Human Regular 100 Units/Ml 10ml Vial IVP 05/08/25 12:04 10 unit ONCE ONE Administration Iopamidol 80 ml 05/08/25 11:43 05/08/25 11:44 Iopamidol-370 (76%);100ml Bottle IV 05/08/25 11:44 80 ml ONCE ONE Administration Methylprednisolone Sodium Succinate 125 mg 05/08/25 12:09 05/08/25 12:44 Methylprednisolone Sod Succ 125mg Vial IV 05/08/25 12:10 125 mg ONCE ONE Administration Sodium Chloride 50 ml 05/08/25 11:43 05/08/25 11:44 0.9 % Sodium Chloride 50 Ml Vial IV 05/08/25 11:44 50 ml ONCE ONE Administration ORDERS Category Date Time Status CT angio head Stat Cat Scan 05/08/25 11:[address] angio neck Stat Cat Scan 05/08/25 11:[address] chest wo con Stat Cat Scan 05/08/25 11:[address] head/brain wo con Stat Cat Scan 05/08/25 11:38 Completed Activated Partial Thrombo Time Stat Lab 05/08/25 11:40 Completed CBC w/Auto Diff [Complete Blood Count Auto Diff] Timed Lab 05/09/25 08:00 Ordered CMP [Comprehensive Metabolic Panel] Timed Lab 05/09/25 08:00 Ordered Complete Blood Count Auto Diff Stat Lab 05/08/25 11:40 Completed Comprehensive Metabolic Panel Stat Lab 05/08/25 11:40 Completed Ethyl Alcohol Stat Lab 05/08/25 11:40 Completed Lipid Panel Stat Lab 05/08/25 11:40 Completed POC Glucose,Bedside Routine Lab 05/08/25 11:33 Completed Prothrombin Time INR Stat Lab 05/08/25 11:40 Completed Troponin I Q3H Lab 05/08/25 15:15 Completed Troponin I Q3H Lab 05/08/25 17:45 Ordered Troponin I Stat Lab 05/08/25 11:40 Completed Urinalysis and Microscopic Stat Lab 05/08/25 12:15 Completed Blood Culture Stat Micro 05/08/25 13:56 Received VBG [Venous Blood Gas] Stat RT 05/08/25 11:39 Completed VBG [Venous Blood Gas] Stat RT 05/08/25 13:20 Completed ECG Request Stat Y 05/08/25 11:38 Ordered ECG Data Tracing #1: I reviewed this ECG and interpreted as documented below: afib, no peaked T waves, no ST elevation or depression Medical Decision Narrative: Kirstie Nascimento is an 84y female with a history of COPD on 2 L nasal cannula at baseline who presents to the emergency department via EMS as a possible stroke versus respiratory failure. Per EMS, patient is a resident at [facility] and they were told by staff that she was not acting herself this morning while eating breakfast. It is unknown at this time when her last known normal was. They state the patient was hypoxic on their arrival to the facility at 84% but improved with additional O2. She is mildly confused on arrival but knows where she is, knows the date. She does not know where she is. She follows commands. She complains of pain in both of her arms as well as some shortness of breath. On arrival, patient arrives as a stroke alert from the scene. Patient initially hypertensive, heart rate within normal limits, borderline hypoxic the patient's oxygen was increased to 4 L/min. Patient is somnolent but will wake with verbal stimuli. She is answering most questions appropriately although she does not know where she is. She does follow most commands but does fall asleep rather quickly. No obvious cranial nerve deficits. She is able to lift both arms in the air, she is able to move both lower extremities. When touching the right leg, she states that I am touching the left leg. When touching the left leg, she also states that I am touching the left leg. Unable to follow commands for [id number] testing. Pupils equal round and reactive to light. Extraocular movements intact. Patient was then taken to the CT scanner for stroke rule out. Initial NIH of 2. Differential diagnosis includes, but is not limited to: Stroke, hypercapnic encephalopathy, hypoxic respiratory failure, COPD exacerbation, ACS, electrolyte derangement, RICHIE, urinary tract infection, among others. The most morbid conditions were considered and workup was based on these. Workup in the emergency department included: CT head without contrast, CTA head and neck, CT chest without contrast, EKG, CBC with differential, CMP, VBG with lactate, PT/INR, lipid profile, [id number] glucose was 99, troponin, urinalysis. CT images interpreted by me personally. No intracranial hemorrhage, mass or midline shift. No large vessel occlusions. See radiology report for details. Patient's VBG came back with respiratory acidosis with pH of 7.2 and elevated pCO2. Patient was continued to remain hypoxic and was placed on BiPAP at this time. Her altered mental status and and ability to consistently follow commands is likely secondary to hypercapnic encephalopathy rather than stroke. TNK was not administered given this. Patient does not have a leukocytosis, patient's hemoglobin stable, INR mildly elevated at 1.13 but coagulation studies otherwise unremarkable. Patient is hyperkalemic with potassium of 6.2. Patient was administered 10 units of regular and insulin IV with an amp of D50. Patient does not have any peaked T waves or EKG changes, thus calcium gluconate was not administered. Patient's anion gap is mildly elevated at 17.2. She does have an RICHIE with creatinine of 3.9 and BUN of 91 (baseline creatinine is around 1.4). Liver enzymes grossly unremarkable nonactionable. Initial troponin negative. Urinalysis without evidence of infection. Patient's chest CT was also interpreted by me personally and shows bilateral ground glass opacities consistent with multifocal pneumonia. Patient was administered IV Levaquin as well as sepsis bolus fluids. I then discussed the patient's case with Dr. Hanna for admission. Patient remains on BiPAP due to pH remaining consistent at 7.2. pCO2 is mildly improved. Dr. Adamson is in agreement to admit the the patient for further management. Ordered CBC and CMP for the morning as well as scheduled DuoNeb treatments per Dr. Adamson's request. Critical Care Critical Care Time Critical Care Time: Yes Attestation: On 05/08/25, the high probability of a clinically significant, sudden or life threatening deterioration of the following system(s) required my full and direct attention, intervention and personal management. The time I documented below is in addition to time spent performing reported procedures but includes the following listed in this critical care notation. Total Time Total Critical Care Time: 45
[2025-05-08] MEDS: SODIUM CHLORIDE 0.9% 10ML SYR (RAD ONLY) 10 ML IV (11:45)
--- NOTE | 2025-05-08 11:45 | CT_ITS ---
PROCEDURE INFORMATION: Exam: CT Chest Without Contrast; Diagnostic Exam date and time: 05/08/2025 11:51 AM Age: 84 years old Clinical indication: Cough; Additional info: Pneumonia? TECHNIQUE: Imaging protocol: Diagnostic computed tomography of the chest without contrast. Radiation optimization: All CT scans at this facility use at least one of these dose optimization techniques: automated exposure control; mA and/or kV adjustment per patient size (includes targeted exams where dose is matched to clinical indication); or iterative reconstruction. COMPARISON: CT ANGIO CHEST PE PROTOCOL 04/01/2025 6:45 PM FINDINGS: Lungs: Ground-glass opacities in the left upper lobe. Consolidation in the lingula and right middle lobe and both lower lobes. Findings consistent with multifocal pneumonia. Pleural spaces: Unremarkable. No pneumothorax. No pleural effusion. Heart: There is calcification of the aortic valve annulus. There is calcification of the mitral valve annulus. Coronary arteries: Coronary artery calcifications may indicate coronary artery disease. Lymph nodes: 2.9 x 2 cm lymph node anterior to the trachea additional lymph node in the anterior mediastinum 13 x 10 mm Vasculature: Unremarkable. No aortic aneurysm. Liver: Lobulated liver consistent with cirrhosis. Gallbladder and biliary ducts: Gallstones in the gallbladder . Pancreas: Pancreatic atrophy Kidneys: Subcentimeter low attenuation area in the left kidney is too small for characterization. Bones/joints: Compression fracture of unknown age T12 Soft tissues: Unremarkable. IMPRESSION: 1. Ground-glass opacities in the left upper lobe. Consolidation in the lingula and right middle lobe and both lower lobes. Findings consistent with multifocal pneumonia. 2. Gallstones in the gallbladder . 3. Lobulated liver consistent with cirrhosis.
[2025-05-08 11:48] LABS: Hematocrit 36.5 % (37.0-47.0); Hemoglobin 11.4 g/dL (12.2-16.2); Immature Granulocytes % 0.7 %; Mean Corpuscular HGB Conc 31.2 g/dL (31.8-35.4); Mean Corpuscular Hemoglobin 28.1 pg (27.0-31.2); Mean Corpuscular Volume 89.9 fl (81-99); Nucleated Red Blood Cells % 0 %; Platelet Count 116 K/mm3 (142-424); Red Blood Count 4.06 M/mm3 (4.20-5.40); Red Cell Distribution Width-SD 57.1 fL; White Blood Count 6.9 K/mm3 (4.8-10.8)
--- OUTSIDE RECORDS SUMMARY | 2025-05-08 11:51 | XMS_ITS | Clinical Summary ---
Author Organization [facility] Address [address] 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
--- OUTSIDE RECORDS SUMMARY | 2025-05-08 11:52 | XMS_ITS | Patient Health Record ---
[facility] Address [address] [facility] [address] [place] [id number] Care Team Providers Care Equalizer Operator Name Role Phone Allan Adamson Primary Care Provider [phone] Ata Vences Unavailable [phone] Yvette Harris Unavailable [phone] Allergies No Known Allergies Results Component Value [...] 26 Performing Lab: Notes/Report: Test performed by [facility] [address] [place] [address] , [address], [place] [address] Tristian Amado MD, Rocket Engine Tester CLIA: [id number] Sodium 142 135-145 mmol/L Potassium 5.0 3.5-5.3 mmol/L Chloride 99 97-108 mmol/L CO2 34 22-32 mmol/L Glucose 61 65-99 mg/dL BUN 51 8-23 mg/dL Creatinine 1.87 0.50-1.00 mg/dL Calcium 9.3 8.6-10.4 mg/dL eGFR by Creatinine 26 >59 mL/min/1.73m2 P-Hemoglobin A1C Reviewed date:12/22/2024 09:28:32 AM Interpretation:6.1 Performing Lab: Notes/Report: Test performed by [facility] [address] [place] [address] [place] [address] Tristian Amado MD, Rocket Engine Tester CLIA: [id number] Hemoglobin A1C 6.1 <5.7 % The following HbA1c ranges recommended by the [place] [employer] (ADA) may be used as an aid in the diagnosis of diabetes mellitus. HbA1c Suggested Diagnosis >=6.5% Diabetic 5.7% - 6.4% Pre-Diabetic <5.7% Non-Diabetic P-Magnesium Reviewed date:12/22/2024 09:28:32 AM Interpretation: Normal Performing Lab: Notes/Report: Test performed by [facility] [address] [place] [address] [place] [address] Tristian Amado MD, Rocket Engine Tester CLIA: [id number] Magnesium 1.9 1.6-2.4 mg/dL Estimated Average Glucose Reviewed date:12/22/2024 09:28:32 AM Interpretation:128 Performing Lab: Notes/Report: Test performed by [facility] [address] [place] [address] [place] [address] Tristian Amado MD, Rocket Engine Tester CLIA: [id number] Estimated Average Glucose (eAG) 128 Estimated Average Glucose (eAG) is calculated using the equation eAG = (28.7 x HbA1c) - 46.7 based on the guidelines established by the ADA. If the patient has certain diseases including kidney disease, sickle cell anemia, thalassemia, or is taking medications such as dapsone, erythropoietin, or iron, eAG should not be evaluated. CXR Reviewed date:12/24/2024 08:24:52 AM Interpretation: Performing Lab: Notes/Report: H-Urine Culture and Sensitiv ity Reviewed date:02/24/2025 02:29:45 PM Interpretation:suggests contamination Performing Lab: Notes/Report: suggests contamination H-CBC Reviewed date:05/11/2024 09:23:49 AM Interpretation: Performing [...] 0.2 0.0-0.4 K/mm3 BA# 0.0 0-0.2 K/mm3 H-CBC [...] 108 74-100 mg/dl CA 9.1 8.4-10.2 mg/dl H-Urine Culture and Sensitiv ity Reviewed date:03/15/2025 04:38:33 PM Interpretation: Performing Lab: Notes/Report: CUU Multiple organisms, suggests contamination. H-UA Reviewed date:03/15/2025 04:38:33 PM Interpretation: Performing [...] Notes/Report: CUU Multiple organisms, suggests contamination. CBC Reviewed date:04/01/2025 04:10:32 PM Interpretation: Performing Lab: Notes/Report: H-CBC Reviewed date:05/11/2024 09:23:49 AM Interpretation: Performing [...] S- Susceptible I- Intermediate * [facility]: R- Resistant S- Susceptible I- Intermediate * Not on [facility] CUSU RX CHANG: R- Resistant S- Susceptible I- Intermediate * [facility]: R- Resistant S- Susceptible I- Intermediate * [facility] Staphylococcus aureu s: REACTION RX CHANG: R- Resistant S- Susceptible I- Intermediate * [facility] Clindamycin <=0.5 S RX CHANG: R- Resistant S- Susceptible I- Intermediate * [facility] Erythromycin <=0.5 S RX CHANG: R- Resistant S- Susceptible I- Intermediate * [facility] Gentamicin <=1 S RX CHANG: R- Resistant S- Susceptible I- Intermediate * [facility] Minocycline <=1 S RX CHANG: R- Resistant S- Susceptible I- Intermediate * Not on [facility] Oxacillin <=0.25 S RX CHANG: R- Resistant S- Susceptible I- Intermediate * Not on [facility] Rifampin <=0.5 S RX CHANG: R- Resistant S- Susceptible I- Intermediate * Not on [facility] Tetracycline <=0.5 S RX CHANG: R- Resistant S- Susceptible I- Intermediate * Not on [facility] Trimethoprim/Sulfame tho xazole <=0.5/9.5 S RX CHANG: R- Resistant S- Susceptible I- Intermediate * Not on [facility] Vancomycin 1 S RX CHANG: R- Resistant S- Susceptible I- Intermediate * Not on [facility] CUSPU RX CHANG: R- Resistant S- Susceptible I- Intermediate * Not on [facility] H-BMP Reviewed date:05/11/2024 09:23:49 AM Interpretation: Performing [...] 102 74-100 mg/dl CA 8.7 8.4-10.2 mg/dl H-TSH Reviewed date:06/30/2024 11:34:11 AM Interpretation: Performing [...] AGRATIO 1.1 1.1-1.8 ALP 67 38-126 U/L H-COVIDPANEL Reviewed date:07/08/2024 02:44:12 PM Interpretation: Performing Lab: Notes/Report: Cancel Comments NEEDS REORDER NOT SENT H-COVIDPANEL Reviewed date:07/09/2024 12:34:39 PM Interpretation: Performing Lab: Notes/Report: No Is this the 1st COVID test for the patient? No Does the patient have COVID symptoms? Yes Is the patient employed in healthcare? No Is patient an [facility] employee? N Is patient currently hospitalized? Yes Is patient currently in ICU? No Date of Symptom onset Is patient a resident in a congregate care setting? No ADENOQIA Not Detected NotDetected CORONAHKU1 Not Detected NotDetected [id number] Not Detected NotDetected [id number] Not Detected NotDetected BNIBHWK72 Not Detected NotDetected METAPNEUMO Not Detected NotDetected RHINOENTER Not Detected NotDetected INFLUAPCR Not Detected NotDetected FLUAH1 Not Detected NotDetected [id number] Not Detected NotDetected INFLUAH3 Not Detected NotDetected [...] Not Detected NotDetected MYCOPLASM Not Detected NotDetected H-CBC Reviewed date:07/11/2024 09:06:38 AM Interpretation: Performing [...] 242 74-100 mg/dl CA 8.6 8.4-10.2 mg/dl H-CBC Reviewed date:07/13/2024 08:42:29 AM [...] 347 74-100 mg/dl CA 8.2 8.4-10.2 mg/dl H-Sputum Culture with Gram Chaim gilliland Reviewed date:07/15/2024 06:28:51 PM Interpretation: Performing Lab: Notes/Report: Cancel Comments Cancelled via OM: Order cancelled - Patient discharged Comment: Induce w/3ml NS neb tx if necessary H-CMP Reviewed date:07/13/2024 03:48:34 PM Interpretation: Performing [...] AGRATIO 1.1 1.1-1.8 ALP 74 38-126 U/L H-CBC Reviewed date:07/14/2024 10:33:49 AM Interpretation: Performing [...] 183 74-100 mg/dl CA 7.6 8.4-10.2 mg/dl H-UA Reviewed date:02/24/2025 04:52:18 PM [...] 01:01:11 PM Interpretation:Abnormal Performing Lab: Notes/Report: Abnormal M-Venous Blood Gas Reviewed date:04/02/2025 11:02:14 AM Interpretation: Performing Lab: Notes/Report: PHVEN 7.37 7.31-7.41 mmol/L KMB7HWD 59.8 35-51 mmol/L CRITICAL RESULT Results called to:DARLING RN by RT Oni, BIOMEDICAL ENGINEERING TECHNOLOGIST at 0307 on 04/02/25 PO2VEN 36.9 28-40 mmol/L RUJ0EEG 34.0 23-30 mmol/L [id number] 35.9 23-27 mmol/L BEVEN 8.8 -2.4-2.3 mmol/L [id number] 71.7 50-70 % LACVEN 1.7 0.4-2.0 mmol/L H-CBC Reviewed date:04/05/2025 08:37:42 AM Interpretation: Performing Lab: Notes/Report: WBC 7.9 4.8-10.8 K/mm3 RBC 3.86 4.20-5.40 M/mm3 HGB 10.3 12.2-16.2 g/dL HCT 34.9 37.0-47.0 % MCV 90.4 81-99 fl MCH 26.7 27.0-31.2 pg MCHC 29.5 31.8-35.4 g/dL RDW-SD 58.2 RDW 17.5 11.5-17.5 % PLT 132 142-424 K/mm3 MPV 9.9 7.4-10.4 fl NE% 72.2 37.0-80.0 % LY% 14.6 10-50 % MO% 10.7 1.7-9.3 % EO% 0.4 0.1-12.0 % BA% 0.1 0.1-2.0 % NRBC% 0 IG% 2.0 NE# 5.7 1.8-7.8 K/mm3 LY# 1.2 0.7-4.5 K/mm3 MO# 0.8 0.1-1.0 K/mm3 EO# 0.0 0.0-0.4 Kmm3 BA# 0.0 0-0.2 K/mm3 NRBC# 0 IG# 0.16 H-BMP Reviewed date:04/05/2025 08:37:42 AM Interpretation: Performing Lab: Notes/Report: NA 142 136-145 mmol/L K 4.6 3.5-5.1 mmoL/L CL 101 98-107 mmol/L CO2 36 22.0-30.0 mmol/L GAP 9.6 5-15 mEq/L BUN 54 7-17 mg/dl CREATT 1.50 0.52-1.04 mg/dl CRCLE 37 50-200 mL/min GFRAA 40 >60 ML/MIN EGFR 33 >60 ml/min GLU 104 74-100 mg/dl CA 9.7 8.4-10.2 mg/dl H-CBC Reviewed date:04/05/2025 08:37:42 AM Interpretation: Performing Lab: Notes/Report: WBC 6.2 4.8-10.8 K/mm3 RBC 3.85 4.20-5.40 M/mm3 HGB 10.1 12.2-16.2 g/dL HCT 34.9 37.0-47.0 % MCV 90.6 81-99 fl MCH 26.2 27.0-31.2 pg MCHC 28.9 31.8-35.4 g/dL RDW-SD 56.7 RDW 17.0 11.5-17.5 % PLT 100 142-424 K/mm3 MPV 10.7 7.4-10.4 fl NE% 71.6 37.0-80.0 % LY% 15.9 10-50 % MO% 8.9 1.7-9.3 % EO% 1.8 0.1-12.0 % BA% 0.3 0.1-2.0 % NRBC% 0 IG% 1.5 NE# 4.4 1.8-7.8 K/mm3 LY# 1.0 0.7-4.5 K/mm3 MO# 0.6 0.1-1.0 K/mm3 EO# 0.1 0.0-0.4 Kmm3 BA# 0.0 0-0.2 K/mm3 NRBC# 0 IG# 0.09 H-BMP Reviewed date:04/05/2025 08:37:42 AM Interpretation: Performing Lab: Notes/Report: NA 141 136-145 mmol/L K 4.7 3.5-5.1 mmoL/L CL 98 98-107 mmol/L CO2 39 22.0-30.0 mmol/L GAP 8.7 5-15 mEq/L BUN 52 7-17 mg/dl CREATT 1.40 0.52-1.04 mg/dl CRCLE 42 50-200 mL/min GFRAA 43 >60 ML/MIN EGFR 36 >60 ml/min GLU 113 74-100 mg/dl CA 9.3 8.4-10.2 mg/dl Urine Culture and Sensitivit y Reviewed date:03/31/2025 02:29:25 PM Interpretation:No Growth Performing Lab: Notes/Report: No Growth Iron Reviewed date:04/02/2025 11:02:14 AM Interpretation: Performing Lab: Notes/Report: BMP Reviewed date:05/03/2025 04:19:34 PM Interpretation: Performing Lab: Notes/Report: H-Sputum Culture with Gram Chaim gilliland Reviewed date:04/07/2025 01:00:59 PM Interpretation: Performing Lab: Notes/Report: Cancel Comments Cancelled via OM: Order cancelled - Patient discharged Comment: Induce w/3ml NS neb tx if necessary CMP Reviewed date:04/23/2025 11:42:34 AM Interpretation:Abnormal Performing Lab: Notes/Report: Abnormal Medications Medication SIG (Take, Route, Frequency, Duration) Notes Start Date End Date Status o2 with portable conserving device 1 use as directed Activ e Regular Diet - as directed RICARDO; CCHO Act linda Zocor 20 MG 1 tab(s) orally once a day at bedtime Active Spironolactone 50 MG Take 1 tablet by mouth once daily Active Paste Base - as directed Kate's magic butt paste daily to gluteal folds Active Simvastatin 20 MG TAKE 1 TABLET BY MOUTH ONCE DAILY AT BEDTIME FOR 90 DAYS Active Biofreeze 10 % to hands Externally 4 times a day As needed Active oxyBUTYnin Chloride ER 10 MG 2 tab(s) Orally Once a day Active Furosemide 40 MG 1 tablet Orally Once a day Active Dapagliflozin Propanediol 10 MG 1 tablet Orally Once a day Active Esomeprazole Magnesium 40 MG 1 cap(s) orally once a day Active Metoprolol Succinate 50 MG as directed Orally Once a day Active Hospital Bed - as directed 12/28/2024 No t-Taking Pregabalin 75 MG 1 cap(s) orally 2 times a day Active Irbesartan 300 MG Take 1 tablet by mouth once daily for 90 days Active Fluticasone-Salmeterol 250-50 MCG/ACT 1 puff Inhalation Twice a day Active Acetaminophen 500 MG 1 tablet as needed Orally every 6h prn Active Vitamin B12 1000 MCG 1 tablet Orally Once a day Active tiZANidine HCl 2 MG 1 tablet at bedtime as needed Orally at HS prn Active CeraVe Daily Moisturizing - as directed Externally daily 04/30/2025 Active Eye Vitamins - as directed Orally [...] a meal Orally Once a day Active metFORMIN HCl 500 MG TAKE 1 TABLET BY MOUTH TWICE DAILY WITH MEALS Active Montelukast Sodium 10 MG 1 tablet Orally Once a day Active Wheelchair - as directed As needed Diagnosis: E11.42, M15.0, M16.11, M21.969, I51.89, J44.9, M21.962, R26.89, G62.9 Active Lidocaine 4 % 1 patch as needed Externally daily As needed Active Oxygen - per nasal cannula as directed 3 LPM Active Nebulizer - as directed 12/03/2024 Activ e Nebulizer Air Tube/Plugs - as directed 12/03/2024 Active Immunizations Vaccine Route Administration Date Status Comme nts XXXDexamethasone IM Intramuscular 02/01/2006 Administered Tetanus Tdap-Adacel (over 7yrs) IM Intramuscular 10/29/2013 Administered Prevnar (PCV13) IM Intramuscular 11/01/2014 Administered PNEUMOVAX 23 VACCINE IM Intramuscular 06/12/2016 Administe red Fluzone High Dose (65yr and older) IM [...] Administered COVID 19 Moderna Unknown 12/05/2021 Administered xFluzone High Dose-private (65yr&older) IM Intramuscular 05/13/2013 Administered xFluzone High Dose-private (65yr&older) Unknown 05/14/2019 Administered Shingrix IM Intramuscular 01/13/2019 Administered Shingrix IM Intramuscular 03/18/2019 Administered Fluzone PF Quad (6-35 months) Unknown 05/18/2020 Administered Problems Problem Type SNOMED Code ICD Code Onset Dates Problem Status W/U Status Risk Notes Problem Hyperlipidaemia (55056907) Hyperlipemia (272.4) Active confirmed Problem Essential hypertension (72092390) Essential (primary) hypertension (I10) Active confirmed Problem Tear film insufficiency (25905626) Dry eyes, bilateral (H04.123) Active confirmed Problem History of malignant melanoma of the skin (009465766766) History of melanoma (Z85.820) Active confirmed Problem Essential hypertension (22634356) Essential hypertension (I10) Active confirmed Problem Hypertriglyceridemia (472680298) Hypertriglyceridemia (E78.1) Active confirmed Problem Long-term current us e 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 (285842057) 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 use 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 (Z79.01) Active confirmed Problem Obstructive sleep apnea (59128496) Obstructive sleep apnea (G47.33) Active confirmed Problem Hypokalemia (64897642) History of hypokalemia (Z86.39) Active confirmed Problem Mixed anxiety and depressive disorder (872428912) Depression with anxiety (F41.8) Active confirmed Problem Acute exacerbation o f chronic obstructive airways disease (669861557) COPD exacerbation (J44.1) Active confirmed Problem Mixed hyperlipidemia (857976215) Mixed hyperlipidemia (E78.2) Active confirmed Problem Hypomagnesemia (280168750) Hypomagnesemia (E83.42) Active confirmed Problem Allergic rhinitis (71213700) Allergic rhinitis, unspecified (J30.9) Active confirmed Problem Chronic pulmonary edema (06919457) Chronic pulmonary edema (J81.1) Active confirmed Problem Chronic respiratory failure (45169148) Chronic respiratory failure, unspecified whether with hypoxia or hypercapnia (J96.10) Active confirmed Problem Aeyja-iz-cmjuhns hypoxemic respiratory failure (82922482967095078) Acute and chronic respiratory failure with hypoxia (J96.21) Active confirmed Problem Abnormal findings on diagnostic imaging of breast (884988623) Other abnormal and inconclusive findings on diagnostic imaging of breast (R92.8) Active confirmed Problem History of polyp of colon (situation) (756814849) History of colon polyps (Z86.010) Active confirmed Problem Chronic pain (50208621) Other chronic pain (G89.29) Active confirmed Problem Pulmonary emphysema (26087975) Pulmonary emphysema, unspecified emphysema type (J43.9) Active confirmed Problem Primary osteoarthritis (390541757) Primary osteoarthritis involving multiple joints (M15.0) Active confirmed Problem Gastroesophageal reflux disease (disorder) (356588388) Chronic GERD (K21.9) Active confirmed Problem COPD - Chronic obstructive pulmonary disease (70343806) Chronic obstructive pulmonary disease, unspecified COPD type (J44.9) Active confirmed Problem Acute exacerbation o f chronic obstructive airways disease (859611852) Acute exacerbation of chronic obstructive pulmonary disease (COPD) (J44.1) Active confirmed Problem Gastroesophageal reflux disease (405578419) Gastroesophageal reflux disease, esophagitis presence not specified (K21.9) Active confirmed Problem Neuropathy (779882488) Neuropathy (G62.9) Active confirmed Problem Allergic rhinitis (71458482) Allergic rhinitis (J30.9) Active confirmed Problem Lumbar spinal stenosis (83741897) Spinal stenosis, lumbar (M48.06) Active confirmed Problem Osteoporosis (38564000) Osteoporosis (M81.0) Active confirmed Problem Cardiac arrhythmia (268917816) Atrial dysrhythmia (I49.8) Active confirmed Problem Anemia (172418098) Anemia, unspe cified type (D64.9) Active confirmed Problem Sleep apnea (99696723) Sleep apnea, unspecified type (G47.30) Active confirmed Problem Hyperlipidaemia (58267809) Hyperlipidemia, unspecified hyperlipidemia type (E78.5) Active confirmed Problem Polyneuropathy due t o type 2 diabetes mellitus (671472170) 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) Active confirmed Problem Mulrr-ex-uhmrkrx hypoxemic respiratory failure (32829892271711609) Acute on chronic respiratory failure with hypoxia (J96.21) Active confirmed Problem Atrial ectopic (159834348) Atrial ectopic (I49.1) Active confirmed Problem Low back pain (653411471) Chronic right-sided low back pain without sciatica (M54.5) Active confirmed Problem Type II diabetes mellitus without complication (135430906) Type 2 diabetes mellitus without complication, without long-term current use of insulin (E11.9) Active confirmed Problem Cramp in lower leg associated with rest (865481180) Leg cramps, sleep related (G47.62) Active confirmed Problem 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, choroid, 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 Problem Hypertensive urgency (256862176) Hypertensive urgency (I16.0) Active confirmed Problem Urge incontinence of urine (41817479) Urge incontinence of urine (N39.41) Active confirmed Problem Sleep apnea (38673855) Sleep apnea in adult (G47.30) Active confirmed Problem Arthritis of right hip (6135276796778600) Arthritis of right hip (M16.11) Active confirmed Problem Deformity of foot (finding) (547944638) Deformity of foot, unspecified laterality (M21.969) Active confirmed Problem Type II diabetes mellitus without complication (382382054) Type 2 diabetes mellitus without complication, unspecified whether alf insulin use (E11.9) Active confirmed Problem Diastolic dysfunctio n (4892804) Diastolic dysfunction (I51.89) Active confirmed Problem Osteomyelitis (43285741) Osteomyelitis of toe of right foot (M86.9) Active confirmed Problem Gastroesophageal reflux disease (146014749) Gastroesophageal reflux disease, unspecified whether esophagitis present (K21.9) Active confirmed Problem Chronic kidney disease stage 3B (disorder) (507733295) Stage 3b chronic kidney disease (CKD) (N18.32) Active confirmed Problem Chronic kidney disease stage 3A (disorder) (255129012) Stage 3a chronic kidney disease (CKD) (N18.31) Active confirmed Problem Anemia (742742510) Acute anemia (D64.9) Active confirmed Problem Abnormal gait (36412318) Inability to bear weight (R26.89) Active confirmed Problem Left ankle joint deformity (M21.962) Active confirmed Vital Signs Heart Rate 62 /min 04/27/2025 Respiratory Rate 18 /min 04/27/2025 Blood pressure diastolic 64 mm Hg 04/27/2025 Height 65.50 in 04/22/2025 Blood pressure systolic 109 mm Hg 04/27/2025 Weight 197.2 lbs 04/27/2025 BMI 32.51 kg/m2 04/22/2025 Encounters Encounter Location Date Provider Diagnosis [facility] [address] [place] [id number] 06/04/2024 Allan Cherokee Pain in left ankle a nd joints of left foot M25.572 ; Diastolic dysfunction I51.89 ; Hypoxia R09.02 and Chronic obstructive pulmonary disease, unspecified COPD type J44.[address] [place] [id number] 07/21/2024 Yvette Harris Acute on chronic respiratory failure with hypoxia J96.21 ; Acute left ankle pain M25.572 ; Left ankle joint deformity M21.962 ; Left ankle instability M25.372 ; Hypoxia R09.02 ; Generalized weakness R53.1 ; Type 2 diabetes mellitus without complication, unspecified whether alf insulin use E11.9 ; Essential (primary) hypertension [...] R53.81 and Leg cramps, sleep related G47.[address] [facility] [address] [place], [place] [id number] 08/25/2024 Yvette Harris Left ankle joint deformity M21.962 ; Acute anemia D64.9 ; Neuropathy G62.9 ; Hyperlipidemia, unspecified hyperlipidemia type E78.5 ; Hypomagnesemia E83.42 ; Acute on chronic respiratory failure with hypoxia J96.21 ; Acute left ankle pain M25.572 ; Left ankle instability M25.372 ; Hypoxia R09.02 ; Generalized weakness R53.1 ; Type 2 diabetes mellitus without complication, unspecified whether alf insulin use E11.9 ; Essential (primary) hypertension [...] R53.81 and Leg cramps, sleep related G47.62 [facility] [address] [place] [id number] 09/22/2024 Allan Cherokee Essential hypertensi on I10 ; Chronic obstructive pulmonary disease, unspecified COPD type J44.9 ; Dry eyes, bilateral H04.123 ; Depression with anxiety F41.8 ; Gastroesophageal reflux disease, esophagitis presence not specified K21.9 ; Hypomagnesemia E83.42 ; Debility R53.81 ; Allergic rhinitis J30.9 ; Osteoporosis M81.0 and Obstructive sleep apnea G47.33 [facility] [address] [place] [id number] 12/21/2024 Allan Adamson Type 2 diabetes rere itus without complication, without long-term current use of insulin E11.9 ; Chronic respiratory failure, unspecified whether with hypoxia or hypercapnia J96.10 ; Other hemorrhoids K64.8 ; BRBPR (bright red blood per rectum) K62.5 ; Hypomagnesemia E83.42 ; Stage 3b chronic kidney disease (CKD) N18.32 and Chronic obstructive pulmonary disease, unspecified COPD type J44.9 [address] [place] [id number] 04/13/2025 Yvette Harris Chronic pulmonary [place] [...] 2 diabetes mellitus without complication, unspecified whether alf insulin use E11.9 [address] [place] [id number] 04/27/2025 Yvette Harris Chronic pulmonary [place] [...] Peripheral edema R60.9 and Dry skin L85.3 [facility] [address] [place], [place] [id number] 05/27/2024 Allan Cherokee Essential hypertensi on I10 [facility] [address] [place], [place] [id number] 06/04/2024 Allan Cherokee [facility] [address] [place], [place] [id number] 06/18/2024 Allan Cherokee [facility] [address] [place], [place] [id number] 08/04/2024 Allan Cherokee [facility] [address] [place] [id number] 08/10/2024 Allan Cherokee [facility] [address] [place] [id number] 08/21/2024 Allan Cherokee [facility] [address] [place], [place] [id number] 09/07/2024 Allan Cherokee Diabetic polyneuropa thy associated with type 2 diabetes mellitus E11.42 [facility] [address] [place], [place] [id number] 09/07/2024 Allan Cherokee Type 2 diabetes rere itus without complication, unspecified whether 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 insulin use E11.9 ; Peripheral edema R60.9 and Debility R53.81 [facility] [address] [place], [place] [id number] 09/08/2024 Allan Cherokee Type 2 diabetes rere itus without complication, unspecified whether termite 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 insulin use E11.9 [facility] [address] [place], [place] [id number] 09/22/2024 Allan Cherokee [facility] [address] [place] [id number] 09/24/2024 Allan Cherokee Allergic rhinitis J3 0.9 [facility] [address] [place], [place] [id number] 11/04/2024 Allan Cherokee [facility] [address] [place], [place] [id number] 11/04/2024 Allan Cherokee Gastroesophageal ref lux disease, esophagitis presence not specified K21.9 and Diabetic polyneuropathy associated with type 2 diabetes mellitus E11.42 [facility] [address] [place], [place] [id number] 11/05/2024 Allan Cherokee [facility] [address] [place] [id number] 11/12/2024 Allan Cherokee [facility] [address] [place] [id number] 11/13/2024 J Wilber Ru Essential hypertensi on I10 and Diabetic polyneuropathy associated with type 2 diabetes mellitus E11.42 [facility] [address] [place], [place] [id number] 11/27/2024 Allan Cherokee [facility] [address] [place], [place] [id number] 12/03/2024 Allan Cherokee Chronic obstructive pulmonary disease, unspecified COPD type J44.9 [facility] [address] [place], [place] [id number] 12/18/2024 Allan Cherokee [facility] [address] [place], [place] [id number] 12/21/2024 Allan Cherokee Urge incontinence of urine N39.41 and Hyperlipidemia, unspecified hyperlipidemia type E78.5 [facility] [address] [place], [place] [id number] 12/22/2024 Allan Cherokee [facility] [address] [place], [place] [id number] 12/23/2024 Allan Cherokee [facility] [address] [place], [place] [id number] 12/24/2024 Allan Cherokee [facility] [address] [place], [place] [id number] 12/25/2024 Allan Cherokee [facility] [address] [place], [place] [id number] 12/28/2024 Allan Cherokee [facility] [address] [place], [place] [id number] 12/30/2024 Allan Cherokee [facility] [address] [place] [id number] 12/30/2024 Allan Cherokee [facility] [address] [place], [place] [id number] 01/04/2025 Allan Cherokee [facility] [address] [place] [id number] 02/12/2025 Allan Cherokee [facility] [address] [place] [id number] 02/24/2025 Allan Cherokee [facility] [address] [place] [id number] 03/02/2025 Allan Cherokee [facility] [address] [place] [id number] 03/08/2025 Allan Cherokee Diabetic polyneuropa thy associated with type 2 diabetes mellitus E11.42 [facility] [address] [place], [place] [id number] 03/25/2025 Allan Cherokee [facility] [address] [place] [id number] 03/29/2025 Allan Cherokee [facility] [address] [place] [id number] 03/31/2025 Allan Cherokee [facility] [address] [place] [id number] 03/31/2025 Allan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
[2025-05-08 11:56] LABS: Albumin Level 4.1 g/dl (3.5-5.0); Chloride 104 mmol/L (98-107); Sodium 142 mmol/L (136-145)
[2025-05-08 11:58] LABS: Creatinine,Serum 3.90 mg/dl (0.52-1.04); Estimated Glomerular Filt Rate 11 ml/min (>60); GFR (African American) 13 ML/MIN (>60)
--- NOTE | 2025-05-08 11:58 | ECG_ITS ---
APPROVED REPORT Exam: Resting ECG HR:72 bpm ECG Measurements Heart Rate 72 AXES QRSd 139 QRS 47 QT 391 T 12 QTc 416 Conclusion ATRIAL FIBRILLATION RIGHT BUNDLE BRANCH BLOCK [120+ ms QRS DURATION, UPRIGHT V1, 40+ ms S IN I/aVL/V4/V5/V6] ABNORMAL ECG UNCONFIRMED REPORT A-fib. Right bundle branch block. No ST elevation or depression. Electronically signed by : MAHAMED MAYEN, 05/11/2025 06:59:11
[2025-05-08 11:59] LABS: Alanine Aminotransferase 12 U/L (12-78); Albumin/Globulin Ratio 1.4 (1.1-1.8); Alkaline Phosphatase 77 U/L (38-126); Anion Gap 17.2 mEq/L (5-15); Aspartate Amino Transferase 39 U/L (14-36); Bilirubin,Total 0.6 mg/dl (0.2-1.3); Calcium 9.5 mg/dl (8.4-10.2); Carbon Dioxide 27 mmol/L (22.0-30.0); Cholesterol 127 mg/dl (140-200); Globulin 2.9 g/dL (1.3-3.2); Glucose 92 mg/dl (74-100); HDL Cholesterol 25 mg/dl (40-60); Total Protein,Serum 7.0 g/dl (6.3-8.2); Triglycerides 182 mg/dl (30-150)
[2025-05-08 12:02] LABS: Blood Urea Nitrogen 91 mg/dl (7-17); Potassium 6.2 mmoL/L (3.5-5.1)
[2025-05-08 12:06] LABS: Lactate Venous 1.7 mmol/L (0.4-2.0); VBG HCO3 26.5 mmol/L (23-30); VBG PH 7.23 mmol/L (7.31-7.41); VBG PO2 42.9 mmol/L (28-40)
[2025-05-08 12:08] LABS: VBG PCO2 64.4 mmol/L (35-51)
[2025-05-08 12:14] LABS: Activated Partial Thrombo Time 28.5 seconds (22.8-30.6); INR 1.13 (0.9-1.1); Prothrombin Time 12.4 seconds (10.1-12.5)
[2025-05-08 12:17] LABS: Troponin I < 0.01 ng/ml (0.00-0.034)
--- NOTE | 2025-05-08 12:24 | PC.NURSE ---
respiratory placed patient on bipap, 16/5, rate 18, 35% 02
[2025-05-08 12:27] LABS: Microscopic, Urine URINE MICROSCOPIC (MICROSCOPIC)
[2025-05-08 12:44] LABS: Bilirubin,Urine Negative (Negative); Color,Urine YELLOW (Yellow); Glucose,Urine (UA) Negative (Negative); Ketones,Urine Negative (Negative); Leukocyte Esterase,Urine Negative (Negative); PH,Urine 5.5 (5.0-8.5); Protein,Urine Negative (Negative); Specific Gravity, Urine 1.015 (1.005-1.030); Urobilinogen,Urine 0.2 EU/dl (0.2)
[2025-05-08] MEDS: MAGNESIUM SULFATE IN WATER 2 GM/50 ML PIGGYBACK IV (12:44)
[2025-05-08] MEDS: INSULIN HUMAN REGULAR 100 UNITS/ML 10ML VIAL 10 UNIT IVP (12:44)
[2025-05-08] MEDS: METHYLPREDNISOLONE SOD SUCC 125MG VIAL 125 MG IV (12:44)
[2025-05-08] MEDS: DEXTROSE 50% 50ML SYRINGE (CRASH CART) 50 ML IVP (12:44)
[2025-05-08] MEDS: IPRATROPIUM/ALBUTEROL 3 ML NEB 9 ML IH (12:44)
[2025-05-08 12:53] LABS: RBC,Urine Occasional #/hpf (0-3); Squamous Epithelial Cell,Urine Occasional #/hpf (0-5)
[2025-05-08 13:40] LABS: Lactate Venous 1.7 mmol/L (0.4-2.0); VBG HCO3 23.7 mmol/L (23-30); VBG PO2 46.6 mmol/L (28-40)
--- NOTE | 2025-05-08 13:46 | PC.NURSE ---
paged Dr. Adamson for this patient
--- NOTE | 2025-05-08 13:53 | PC.NURSE ---
on phone with Dr. Adamson
--- NOTE | 2025-05-08 14:04 | PC.NURSE ---
[facility] notified of need for a bed to admit the pt.
[2025-05-08] MEDS: LACTATED RINGERS 1000ML 1,710 ML 855 ML IV (14:05)
[2025-05-08] MEDS: LEVOFLOXACIN/D5W 750 MG/150 ML 750 MG/150 ML PIGGYBACK 100 MG IV (14:05)
[2025-05-08 14:11] LABS: VBG PCO2 62.6 mmol/L (35-51); VBG PH 7.20 mmol/L (7.31-7.41)
[2025-05-08] MEDS: IPRATROPIUM/ALBUTEROL 3 ML NEB IH ×2 (14:15→23:02)
--- NOTE | 2025-05-08 15:19 | PC.NURSE ---
patient arrived to the ICU at 1445
--- NOTE | 2025-05-08 15:59 | PC.WOUNDNOTE ---
left foot, medial side
[2025-05-08 16:16] LABS: Troponin I < 0.01 ng/ml (0.00-0.034)
[2025-05-08 16:31] LABS: POC Glucose,Bedside 160 gm/dL (70-110)
--- NOTE | 2025-05-08 16:57 | PC.NURSE ---
I spoke with this patient's POA Mia Moore about code status for patient. She stated that at the long-term the patient is a DNR but since the patient is not alert and oriented she would like the patient to be a full code. Also set up a password with the POA of sandor lucio.
[2025-05-08 18:29] LABS: Troponin I < 0.01 ng/ml (0.00-0.034)
[2025-05-08 20:14] LABS: POC Glucose,Bedside 171 gm/dL (70-110)
[2025-05-08] MEDS: 0.9 % SODIUM CHLORIDE 1000ML 1,000 ML 75 ML IV (21:41)
--- NOTE | 2025-05-08 21:51 | PC.NURSE ---
Spoke with Dr. Adamson regarding pts breathing treatments. New orders placed. Also informed Dr Adamson of pts BP being intermittently low w/ MAP <65. NS started @75ml/hr. VBG and CXR ordered for in the morning as well.
[2025-05-09] VITALS (25 sets, daily range): BP systolic 112–163; BP diastolic 46–75; PULSE 59–100; RESP 13–22; TEMP 36.6–37.2; O2SAT 91–100; BMI 33.9
--- NOTE | 2025-05-09 03:49 | PC.NURSE ---
Addendum entered by Elizabeth Shelton RN 05/09/25 04:25: correction, pressure ulcer prevention on beverly. outer knees Original Note: Received care of patient at 0100. Pt has rested well t/o the night with no complaints of pain or discomfort. She has been sleeping but is easily awaken. She is alert to self and place. NS infusing to right ac without signs of infiltration or difficulty. Pt has pressure ulcer prevention device on coccyx, beverly inner knees and left inner foot. (see bio for skin assessment and wound notes for pictures). Pt being repositioned q2 hours. Pt is incontinent with brief and purwick in place. Excoriation noted to inner abdominal folds, powder being applied q2 hours. Tolerating bipap well with sats in upper 90s. 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 BP stable t/o the night. Tolerates removal of bipap for mouth swabs of water. Report to be given to upcoming shift.
--- NOTE | 2025-05-09 06:00 | XR_ITS ---
PROCEDURE INFORMATION: Exam: XR Chest Exam date and time: 05/09/2025 6:02 AM Age: 84 years old Clinical indication: Abnormal findings; Other: Pneumonia TECHNIQUE: Imaging protocol: Radiologic exam of the chest. Views: 1 view. COMPARISON: CT CHEST WO CON 05/08/2025 11:51 AM FINDINGS: Lungs: Opacity in the left base may represent atelectasis or pneumonia.. Pleural spaces: Unremarkable. No pleural effusion. No pneumothorax. Heart/Mediastinum: Unremarkable. No cardiomegaly. Bones/joints: Unremarkable. IMPRESSION: Opacity in the left base may represent atelectasis or pneumonia..
[2025-05-09 06:11] LABS: Lactate Venous 1.5 mmol/L (0.4-2.0); VBG HCO3 19.8 mmol/L (23-30); VBG PCO2 25.1 mmol/L (35-51); VBG PH 7.52 mmol/L (7.31-7.41); VBG PO2 163.1 mmol/L (28-40)
[2025-05-09 06:33] LABS: Hematocrit 32.1 % (37.0-47.0); Immature Granulocytes % 0.8 %; Mean Corpuscular HGB Conc 31.8 g/dL (31.8-35.4); Mean Corpuscular Hemoglobin 28.0 pg (27.0-31.2); Mean Corpuscular Volume 88.2 fl (81-99); Nucleated Red Blood Cells % 0 %; Platelet Count 111 K/mm3 (142-424); Red Blood Count 3.64 M/mm3 (4.20-5.40); Red Cell Distribution Width-SD 54.9 fL; White Blood Count 7.1 K/mm3 (4.8-10.8)
--- NOTE | 2025-05-09 06:39 | PC.NURSE ---
Addendum entered by Elizabeth Shelton RN 05/09/25 06:44: Correction pt is on 4L NC Original Note: Pt removed from bipap after VBG result. Placed on 3l NC (baseline is 2L) and is tolerating fine, sats remaining in low 90s
[2025-05-09 06:50] LABS: POC Glucose,Bedside 166 gm/dL (70-110)
[2025-05-09 06:51] LABS: Alanine Aminotransferase 11 U/L (12-78); Albumin Level 3.4 g/dl (3.5-5.0); Albumin/Globulin Ratio 1.3 (1.1-1.8); Alkaline Phosphatase 74 U/L (38-126); Anion Gap 14.8 mEq/L (5-15); Aspartate Amino Transferase 27 U/L (14-36); Bilirubin,Total 0.4 mg/dl (0.2-1.3); Blood Urea Nitrogen 78 mg/dl (7-17); Calcium 9.2 mg/dl (8.4-10.2); Carbon Dioxide 25 mmol/L (22.0-30.0); Chloride 107 mmol/L (98-107); Creatinine Clearance Estimated 19 mL/min (50-200); Creatinine,Serum 3.10 mg/dl (0.52-1.04); Estimated Glomerular Filt Rate 14 ml/min (>60); GFR (African American) 17 ML/MIN (>60); Globulin 2.6 g/dL (1.3-3.2); Glucose 139 mg/dl (74-100); Potassium 5.8 mmoL/L (3.5-5.1); Sodium 141 mmol/L (136-145); Total Protein,Serum 6.0 g/dl (6.3-8.2)
[2025-05-09] MEDS: IPRATROPIUM/ALBUTEROL 3 ML NEB IH ×4 (07:37→23:47)
--- NOTE | 2025-05-09 09:18 | EXP.HP ---
History of Present Illness *Admission Date: 05/08/25 *Reason for visit:: ALtered mental status *History of present illness: Ms. Nascimento is an 84 year old patient of [facility] that current resides at [place] in the assisted living facility. The patient has a history of oxygen dependent COPD. The nursing staff called and stated she was difficult to arouse yesterday and was unable to take her medications by mouth due to falling asleep easily. EMS was called and she was brought to [facility] were she was found to be hypoxic and be in respiratory failure. BiPAP treatment was initiated in the ER. She was admitted at [facility] a little over one month ago with a very similar presentation. Patient is unable to provide any historical information today. [facility] Disclaimer: The information contained in this section may have been updated after the patient was seen, as this information can be updated by other users. Medical History Asthma Fibrosis of lung Decreased diffusion capacity of lung Pulmonary emphysema Chronic respiratory failure with hypoxia Recurrent pneumonia Acute and chronic respiratory failure with hypoxia Lumbar radiculopathy Degenerative disc disease, lumbar Paratracheal lymphadenopathy CAP (community acquired pneumonia) RICHIE (acute kidney injury) Hypertensive urgency Elevated brain natriuretic peptide (BNP) level Hypertensive emergency CKD (chronic kidney disease) stage 3, GFR 30-59 ml/min Pneumonia Allergic rhinitis Colon polyps Hemorrhoids, internal Osteoporosis Herpes zoster Closed left ankle fracture Closed left hip fracture Lumbar spinal stenosis Lumbar compression fracture Ocular melanoma COPD (chronic obstructive pulmonary disease) Mediastinal lymphadenopathy Sleep apnea Hyperlipidemia Neuropathy Depression GERD (gastroesophageal reflux disease) Arthritis Hypertension Diabetes Surgical History History of right knee joint replacement History of left knee replacement History of left hip replacement History of left ankle joint replacement 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 History of arthroplasty of right knee History of appendectomy Family History Heart attack Social History Smoking Status: Never smoker alcohol intake: never substance use type: denies use current occupational status: other Travel in the last 8 weeks?: None household members: none caffeine: Yes Have you lived/traveled outside [place] in past 30 days?: No Contact w/someone who lives/traveled outside US past 30 days?: No Exposure to someone with infectious disease in past 14 days?: No Do you have a fever (greater than 100.4 F or 38 C)?: No Have you tested positive for COVID-19?: No Exposed to someone with COVID-19 in past 14 days?: No Do you have a sore throat?: No Do you have a cough?: No Do you have any weakness?: No Are you experiencing any nausea/vomitting?: No Do you have any diarrhea?: No Are you experiencing any unusual bleeding?: No Do you have any muscle aches/pain?: No Do you have any abdominal pain?: No Are you experiencing loss of taste or smell?: No Other Medical History Have you received the Flu Vaccine for this season: Yes Have you received the Pneumonia Vaccine: Yes Review of Systems Review of Systems Review of systems:: unable to obtain Meds Home Medications and Allergies Home Medications ?Medication ?Instructions ?Recorded ?Confirmed ?Type metformin 500 mg tablet 500 mg PO BIDWMEAL 03/06/18 05/08/25 History simvastatin 20 mg tablet 20 mg PO HS 03/06/18 05/08/25 History escitalopram oxalate 20 mg tablet 20 mg PO DAILY 11/10/23 05/08/25 History fluticasone 250 mcg-salmeterol 50 1 ea inhalation BID 11/10/23 05/08/25 History mcg/dose blistr powdr for inhalation (Wixela Inhub) oxybutynin chloride 10 mg 10 mg PO DAILY 11/10/23 05/08/25 History tablet,extended release 24 hr irbesartan 300 mg tablet 300 mg PO DAILY #30 tabs 02/25/24 05/08/25 Rx esomeprazole magnesium 40 mg 40 mg PO DAILY 05/09/24 05/08/25 History capsule,delayed release metoprolol succinate 50 mg 50 mg PO DAILY 05/09/24 05/08/25 History tablet,extended release 24 hr tizanidine 2 mg tablet 2 mg PO HSP PRN Muscle Pain 05/09/24 05/08/25 History fluticasone propionate 50 2 spray intranasal DAILY 05/12/24 05/08/25 History mcg/actuation nasal spray,suspension calcium carbonate (Calcium 600) 600 mg PO DAILY 07/08/24 05/08/25 History glucosamine sulfate 2KCl 1,000 mg 1,000 mg PO DAILY 07/08/24 05/08/25 History tablet multivitamin 1 tab PO DAILY 07/08/24 05/08/25 History furosemide 40 mg tablet 40 mg PO DAILY 08/08/24 05/08/25 History dapagliflozin propanediol 10 mg 10 mg PO DAILY #30 tabs 08/14/24 05/08/25 Rx tablet (Farxiga) spironolactone 50 mg tablet 50 mg PO DAILY #30 tabs 08/14/24 05/08/25 Rx acetaminophen 500 mg tablet 500 mg PO Q6HP PRN Mild Pain 04/02/25 05/08/25 History (Scale Score 1-4) ipratropium 0.5 mg-albuterol 3 mg 3 ml inhalation Q6HP PRN Shortness 04/02/25 05/08/25 History (2.5 mg base)/3 mL nebulization Of Breath soln lidocaine 4 % topical patch 1 - 3 patch topical DAILY 04/02/25 05/08/25 History montelukast 10 mg tablet 10 mg PO PM 04/02/25 05/08/25 History New Prescriptions to Start Prescriptions: Allergies Allergy/AdvReac Type Severity Reaction Status Date / Time pollen extracts (POLLEN Allergy Intermediate ASTHMA Verified 09/29/24 15:33 EXTRACTS) azithromycin Allergy Redness of Verified 04/01/25 22:47 Skin ceftriaxone (From [facility]) Allergy Redness of Verified 04/01/25 22:48 Skin Exam Data for Last 24 hours Vital signs and Labs for Last 24 Hours: Temp Pulse Resp BP Pulse Ox O2 Del Method O2 Flow Rate 98.3 F 77 19 136/58 L 100 Nasal Cannula 4 05/09/25 08:00 05/09/25 08:00 05/09/25 08:00 05/09/25 08:00 05/09/25 08:00 05/09/25 08:51 05/09/25 08:51 FiO2 40 05/09/25 06:00 Laboratory Results - last 24 hr 05/08/25 11:33: POC Glucose 99 05/08/25 11:39: VBG pH 7.23 L, VBG pCO2 64.4 H, VBG pO2 42.9 H, VBG HCO3 26.5, VBG Total CO2 28.5 H, VBG O2 Saturation 77.4 H, VBG Base Excess -1.0, VBG Lactic Acid 1.7 05/08/25 11:40: WBC 6.9, RBC 4.06 L, Hgb 11.4 L, Hct 36.5 L, MCV 89.9, MCH 28.1, MCHC 31.2 L, RDW 17.3, Plt Count 116 L, MPV 10.5 H, Neut % (Auto) 73.1, Lymph % (Auto) 14.5, [place] % (Auto) 9.7 H, Eos % (Auto) 1.7, Baso % (Auto) 0.3, Neut # (Auto) 5.0, Lymph # (Auto) 1.0, [place] # (Auto) 0.7, Eos # (Auto) 0.1, Baso # (Auto) 0.0, PT 12.4, INR 1.13 H, APTT 28.5, Sodium 142, Potassium 6.2 H*, Chloride 104, Carbon Dioxide 27, Anion Gap 17.2 H, BUN 91 H, Creatinine 3.90 H, Estimated GFR 11 L*, Est GFR ( Amer) 13 L*, Glucose 92, Calcium 9.5, Total Bilirubin 0.6, AST 39 H, ALT 12, Alkaline Phosphatase 77, Troponin I < 0.01, Total Protein 7.0, Albumin 4.1, Globulin 2.9, Albumin/Globulin Ratio 1.4, Triglycerides 182 H, Cholesterol 127 L, LDL Cholesterol Direct 54.72 L, VLDL Cholesterol 36, HDL Cholesterol 25 L, Cholesterol/HDL Ratio 5.1 H, Plasma/Serum Alcohol < 10 05/08/25 12:15: Urine Color Yellow, Urine Appearance Clear, Urine pH 5.5, Ur Specific [place] 1.015, Urine Protein Negative, Urine Glucose (UA) Negative, Urine Ketones Negative, Urine Blood Negative, Urine Nitrate Negative, Urine Bilirubin Negative, Urine Urobilinogen 0.2, Ur Leukocyte Esterase Negative, Urine RBC Occasional, Urine WBC None, Ur Squamous Epith Cells Occasional, Urine Bacteria None 05/08/25 13:20: VBG pH 7.20 L, VBG pCO2 62.6 H, VBG pO2 46.6 H, VBG HCO3 23.7, VBG Total CO2 25.6, VBG O2 Saturation 78.1 H, VBG Base Excess -4.4 L, VBG Lactic Acid 1.7 05/08/25 15:15: Troponin I < 0.01 05/08/25 16:23: POC Glucose 160 H 05/08/25 17:45: Troponin I < 0.01 05/08/25 19:51: POC Glucose 171 H 05/09/25 05:42: VBG pH 7.52 H, VBG pCO2 25.1 L, VBG pO2 163.1 H, VBG HCO3 19.8 L, VBG Total CO2 20.6 L, VBG O2 Saturation 98.9 H, VBG Base Excess -3.1 L, VBG Lactic Acid 1.5 05/09/25 05:45: WBC 7.1, RBC 3.64 L, Hct 32.1 L, MCV 88.2, MCH 28.0, MCHC 31.8, RDW 17.0, Plt Count 111 L, MPV 10.7 H, Neut % (Auto) 88.7 H, Lymph % (Auto) 5.5 L, [place] % (Auto) 4.9, Eos % (Auto) 0.0 L, Baso % (Auto) 0.1, Neut # (Auto) 6.3, Lymph # (Auto) 0.4 L, [place] # (Auto) 0.4, Eos # (Auto) 0.0, Baso # (Auto) 0.0, Sodium 141, Potassium 5.8 H, Chloride 107, Carbon Dioxide 25, Anion Gap 14.8, BUN 78 H, Creatinine 3.10 H D, Estimated Creat Clear 19, Estimated GFR 14 L*, Est GFR ( Amer) 17 L* D, Glucose 139 H D, Calcium 9.2, Total Bilirubin 0.4, AST 27 D, ALT 11 L, Alkaline Phosphatase 74, Total Protein 6.0 L, Albumin 3.4 L D, Globulin 2.6, Albumin/Globulin Ratio 1.3 05/09/25 06:16: POC Glucose 166 H I & O for Last 24 hours: Intake & Output 05/06/25 05/07/25 05/08/25 05/09/25 23:59 23:59 23:59 23:59 Intake Total 1910 / 1910 712 / 712 Output Total 750 / 750 550 / 550 Balance 1160 / 1160 162 / 162 Weight 200 lb 6.4 oz 203 lb 11.2 oz Constitutional Comments: Sleeping, will awakens to voice and follow a few commands *Routine HEENT Exam Head: Present normocephalic Eye: Present EOMI and PERRL ENT: Present mucous membranes moist *Routine Neck Exam Neck: Present supple; Absent lymphadenopathy *Routine Respiratory Exam Respiratory: Present CTA bilaterally *Routine Cardiovascular Exam Cardiovascular: Present RRR *Routine Abdominal Exam Abdominal: Present soft and normoactive bowel sounds; Absent tenderness *Routine Rectal Exam Rectal:: deferred *Routine Genitalia Exam Genitalia:: deferred *Routine Extremities Exam Extremities: Absent cyanosis, clubbing or edema *Routine Skin Exam Skin: Present warm; Absent rash *Routine Neurological Exam Comments: Awakens to voice, falls back asleep. Assessment and Plan *Assessment and plan (1) Acute on chronic respiratory failure with hypoxia and hypercapnia: Status: Acute Category: Medical Code(s): J96.21 - Acute and chronic respiratory failure with hypoxia; J96.22 - Acute and chronic respiratory failure with hypercapnia (2) Pneumonia: Status: Acute Category: Medical Code(s): J18.9 - Pneumonia, unspecified organism (3) Acute hyperkalemia: Status: Acute Category: Medical Code(s): E87.5 - Hyperkalemia (4) RICHIE (acute kidney injury): Status: Acute Category: Medical Code(s): N17.9 - Acute kidney failure, unspecified (5) Acidosis, metabolic, with respiratory acidosis: Status: Acute Category: Medical Code(s): E87.4 - Mixed disorder of acid-base balance (6) DM type 2 (diabetes mellitus, type 2): Status: Acute Qualifiers: Chronic kidney disease stage: stage 3 (moderate) Chronic kidney disease stage 3 subtype: stage 3b (GFR 30-44) Diabetes mellitus complication detail: with chronic kidney disease 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 insulin use: unspecified half-way insulin use status Category: Medical Code(s): E11.9 - Type 2 diabetes mellitus without complications (7) Hypertension: Status: Acute Qualifiers: Hypertension type: primary hypertension Qualified Code(s): I10 - Essential (primary) hypertension Category: Medical Code(s): I10 - Essential (primary) hypertension (8) Neuropathy: Status: Acute Category: Medical Code(s): G62.9 - Polyneuropathy, unspecified (9) Depression: Status: Acute Qualifiers: Depression Type: unspecified Qualified Code(s): F32.A - Depression, unspecified Category: Medical Code(s): F32.A - Depression, unspecified (10) GERD (gastroesophageal reflux disease): Status: Acute Qualifiers: Esophagitis presence: esophagitis presence not specified Qualified Code(s): K21.9 - Gastro-esophageal reflux disease without esophagitis Category: Medical Code(s): K21.9 - Gastro-esophageal reflux disease without esophagitis (11) Hyperlipidemia: Status: Acute Qualifiers: Hyperlipidemia type: unspecified Qualified Code(s): E78.5 - Hyperlipidemia, unspecified Category: Medical Code(s): E78.5 - Hyperlipidemia, unspecified Plan Patient admitted for further evaluation and management of her pneumonia, respiratory failure and RICHIE. Labs have improved after BiPAP treatment, pH is 7.5 this morning. Artemio IV hydration will be continued over the next few days, plan a total of 4 liters of NS. See orders.
[2025-05-09 09:53] LABS: Hemoglobin 10.2 g/dL (12.2-16.2)
--- NOTE | 2025-05-09 09:54 | P.CONPHA_ITS ---
Pharmacy Intervention Comments: MEDICATION RECONCILIATION COMPLETE USING MAR FROM [facility].
--- NOTE | 2025-05-09 09:54 | HMH.PHAINT1 ---
Pharmacy Intervention Comments: MEDICATION RECONCILIATION COMPLETE USING MAR FROM [facility].
[2025-05-09 10:08] LABS: RBC Morphology Normal; Total Cells Counted 100
[2025-05-09] MEDS: SODIUM CHLORIDE 3% 15ML NEB 3 ML IH (11:00)
[2025-05-09] MEDS: 0.9 % SODIUM CHLORIDE 1000ML 1,000 ML 75 ML IV (11:03)
[2025-05-09 11:18] LABS: POC Glucose,Bedside 147 gm/dL (70-110)
--- NOTE | 2025-05-09 12:24 | PC.NURSE ---
Pt's POA Mia stated that she still could not make a decision on if she wanted to make the pt a DNR while in the hospital. POA is aware that she is a DNR at the senior living and that patient had made the decision in the past of her own DNR. Currently the patient is only alert to self and cannot tell me where she is, her date of , or her situation. Patient's POA has asked me again to ask the patient what Code status she would like to be. I educated the family member that the patient is confused and is unable to make decisions for herself and we ask the POA for code status. POA kept repeating that she could not make that decision. Patient remains confused.
[2025-05-09 17:14] LABS: POC Glucose,Bedside 119 gm/dL (70-110)
[2025-05-09 19:58] LABS: POC Glucose,Bedside 116 gm/dL (70-110)
--- NOTE | 2025-05-09 20:48 | PC.NURSE ---
received report on pt @1900. Pt is slightly confused, opens eyes spontaneously, follows commands, is appropriate, pleasant, and cooperative with care. Pt is able to tell me her name, age, , location, and the year. Pt is confused to day/month. O2 sat was maintaining >94% so O2 was weaned to 3L NC at this time.
--- NOTE | 2025-05-09 23:42 | PC.NURSE ---
O2 sat >93% so O2 weaned to 2L NC. No changes in pts mental status at this time. Pt turned and repositioned in bed q2 hours. Pt has no complaints.
[2025-05-10] VITALS (23 sets, daily range): BP systolic 96–179; BP diastolic 55–86; PULSE 67–96; RESP 12–27; TEMP 36.7–37.4; O2SAT 85–98; BMI 34.2
[2025-05-10] MEDS: 0.9 % SODIUM CHLORIDE 1000ML 1,000 ML 75 ML IV ×2 (00:45→13:29)
--- NOTE | 2025-05-10 03:35 | PC.NURSE ---
Pt appeared slightly agitated and more confused upon entering room. Pt answering orientation questions the same as previous assessments, but is slightly confused. Pt was placed on BIPAP at this time by RT.
[2025-05-10 05:40] LABS: POC Glucose,Bedside 110 gm/dL (70-110)
[2025-05-10 05:54] LABS: Hematocrit 33.5 % (37.0-47.0); Hemoglobin 10.3 g/dL (12.2-16.2); Immature Granulocytes % 1.5 %; Mean Corpuscular HGB Conc 30.7 g/dL (31.8-35.4); Mean Corpuscular Hemoglobin 28.0 pg (27.0-31.2); Mean Corpuscular Volume 91.0 fl (81-99); Nucleated Red Blood Cells % 0 %; Platelet Count 101 K/mm3 (142-424); Red Blood Count 3.68 M/mm3 (4.20-5.40); Red Cell Distribution Width-SD 59.8 fL; White Blood Count 7.2 K/mm3 (4.8-10.8)
--- NOTE | 2025-05-10 06:16 | PC.NURSE ---
Pt off BIPAP and back on 3L NC per request.
[2025-05-10 06:21] LABS: Alanine Aminotransferase 12 U/L (12-78); Albumin Level 3.5 g/dl (3.5-5.0); Albumin/Globulin Ratio 1.3 (1.1-1.8); Alkaline Phosphatase 59 U/L (38-126); Anion Gap 13.1 mEq/L (5-15); Aspartate Amino Transferase 42 U/L (14-36); Bilirubin,Total 0.7 mg/dl (0.2-1.3); Blood Urea Nitrogen 67 mg/dl (7-17); Calcium 9.1 mg/dl (8.4-10.2); Carbon Dioxide 21 mmol/L (22.0-30.0); Chloride 110 mmol/L (98-107); Creatinine Clearance Estimated 28 mL/min (50-200); Creatinine,Serum 2.10 mg/dl (0.52-1.04); Estimated Glomerular Filt Rate 22 ml/min (>60); GFR (African American) 27 ML/MIN (>60); Globulin 2.7 g/dL (1.3-3.2); Glucose 90 mg/dl (74-100); Magnesium 1.7 mg/dl (1.6-2.3); Phosphorous 3.5 mg/dl (2.5-4.5); Potassium 5.1 mmoL/L (3.5-5.1); Sodium 139 mmol/L (136-145); Total Protein,Serum 6.2 g/dl (6.3-8.2)
[2025-05-10] MEDS: IPRATROPIUM/ALBUTEROL 3 ML NEB IH ×4 (06:27→23:43)
--- OUTSIDE RECORDS SUMMARY | 2025-05-10 07:24 | XMS_ITS | Clinical Summary ---
Author Organization [facility] Address [address] [place] [address] Care Team Providers Care Blending Technician Name Role Phone Allan Adamson MD Primary Care Provider [phone] Allergies No known active allergies Medications lisinopril [...] (two) times a day. Active HYDROcodone-rikki taminophen (Jackson) 5-325 MG tablet Active oxybutynin XL (Ditropan-XL) [...] Not on file Insurance MEDICARE [facility] Care Teams Blending Technician Relationship Specialty Start Date End Date Allan Adamson MD [facility] [place] [address] PCP - General 01/06/21
--- OUTSIDE RECORDS SUMMARY | 2025-05-10 07:25 | XMS_ITS | Patient Health Record ---
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 Facing Machine Operator Name Role Phone Allan Adamson Primary Care Provider Ata Vences Unavailable [phone] Yvette Harris Unavailable [phone] Allergies No Known Allergies Results Component Value [...] 26 Performing Lab: Notes/Report: Test performed by [facility] [address] [place] [address] , [address], [place] [address] Tristian Amado MD, Filbert Grower CLIA: [id number] Sodium 142 135-145 mmol/L Potassium 5.0 3.5-5.3 mmol/L Chloride 99 97-108 mmol/L CO2 34 22-32 mmol/L Glucose 61 65-99 mg/dL BUN 51 8-23 mg/dL Creatinine 1.87 0.50-1.00 mg/dL Calcium 9.3 8.6-10.4 mg/dL eGFR by Creatinine 26 >59 mL/min/1.73m2 P-Hemoglobin A1C Reviewed date:12/22/2024 09:28:32 AM Interpretation:6.1 Performing Lab: Notes/Report: Test performed by [facility] [address] [place] [address] [place] [address] Tristian Amado MD, Filbert Grower CLIA: [id number] Hemoglobin A1C 6.1 <5.7 % The following HbA1c ranges recommended by the [place] [employer] (ADA) may be used as an aid in the diagnosis of diabetes mellitus. HbA1c Suggested Diagnosis >=6.5% Diabetic 5.7% - 6.4% Pre-Diabetic <5.7% Non-Diabetic P-Magnesium Reviewed date:12/22/2024 09:28:32 AM Interpretation: Normal Performing Lab: Notes/Report: Test performed by [facility] [address] [place] [address] [place] [address] Tristian Amado MD, Filbert Grower CLIA: [id number] Magnesium 1.9 1.6-2.4 mg/dL Estimated Average Glucose Reviewed date:12/22/2024 09:28:32 AM Interpretation:128 Performing Lab: Notes/Report: Test performed by [facility] [address] [place] [address] [place] [address] Tristian Amado MD, Filbert Grower CLIA: [id number] Estimated Average Glucose (eAG) 128 Estimated Average Glucose (eAG) is calculated using the equation eAG = (28.7 x HbA1c) - 46.7 based on the guidelines established by the ADA. If the patient has certain diseases including kidney disease, sickle cell anemia, thalassemia, or is taking medications such as dapsone, erythropoietin, or iron, eAG should not be evaluated. H-CBC (Not yet reviewed by stu cagle) Interpretation: Performing Lab: Notes/Report: WBC 7.2 4.8-10.8 K/mm3 RBC 3.68 4.20-5.40 M/mm3 HGB 10.3 12.2-16.2 g/dL HCT 33.5 37.0-47.0 % MCV 91.0 81-99 fl MCH 28.0 27.0-31.2 pg MCHC 30.7 31.8-35.4 g/dL RDW-SD 59.8 RDW 17.9 11.5-17.5 % PLT 101 142-424 K/mm3 MPV 11.1 7.4-10.4 fl NE% 79.2 37.0-80.0 % LY% 9.3 10-50 % MO% 9.7 1.7-9.3 % EO% 0.0 0.1-12.0 % BA% 0.3 0.1-2.0 % NRBC% 0 IG% 1.5 NE# 5.7 1.8-7.8 K/mm3 LY# 0.7 0.7-4.5 K/mm3 MO# 0.7 0.1-1.0 K/mm3 EO# 0.0 0.0-0.4 Kmm3 BA# 0.0 0-0.2 K/mm3 NRBC# 0 IG# 0.11 H-CMP (Not yet reviewed by stu cagle) Interpretation: Performing Lab: Notes/Report: NA 139 136-145 mmol/L K 5.1 3.5-5.1 mmoL/L CL 110 98-107 mmol/L CO2 21 22.0-30.0 mmol/L GAP 13.1 5-15 mEq/L BUN 67 7-17 mg/dl CREATT 2.10 0.52-1.04 mg/dl Delta: 3.10 on 05/09/25 CRCLE 28 50-200 mL/min GFRAA 27 >60 ML/MIN Delta: 17 on 05/09/25 EGFR 22 >60 ml/min GLU 90 74-100 mg/dl Delta: 139 on 05/09/25 CA 9.1 8.4-10.2 mg/dl BILIT 0.7 0.2-1.3 mg/dl AST 42 14-36 U/L Delta: 27 on 05/09/25 ALT 12 12-78 U/L TP 6.2 6.3-8.2 g/dl ALB 3.5 3.5-5.0 g/dl GLOB 2.7 1.3-3.2 g/dL AGRATIO 1.3 1.1-1.8 ALP 59 38-126 U/L H-PHOS (Not yet reviewed by provider) Interpretation: Performing Lab: Notes/Report: PHOS 3.5 2.5-4.5 mg/dl H-Magnesium (Not yet reviewe d by provider) Interpretation: Performing Lab: Notes/Report: MG 1.7 1.6-2.3 mg/dl H-CMP (Not yet reviewed by stu cagle) Interpretation: Performing Lab: Notes/Report: NA 141 136-145 mmol/L K 5.8 3.5-5.1 mmoL/L CL 107 98-107 mmol/L CO2 25 22.0-30.0 mmol/L GAP 14.8 5-15 mEq/L BUN 78 7-17 mg/dl CREATT 3.10 0.52-1.04 mg/dl Delta: 3.90 on 05/08/25 CRCLE 19 50-200 mL/min GFRAA 17 >60 ML/MIN Delta: 13 on 05/08/25 EGFR 14 >60 ml/min GLU 139 74-100 mg/dl Delta: 92 on 05/08/25 CA 9.2 8.4-10.2 mg/dl BILIT 0.4 0.2-1.3 mg/dl AST 27 14-36 U/L Delta: 39 on 05/08/25 ALT 11 12-78 U/L TP 6.0 6.3-8.2 g/dl ALB 3.4 3.5-5.0 g/dl Delta: 4.1 on 05/08/25 GLOB 2.6 1.3-3.2 g/dL AGRATIO 1.3 1.1-1.8 ALP 74 38-126 U/L M-Venous Blood Gas (Not yet reviewed by provider) Interpretation: Performing Lab: Notes/Report: PHVEN 7.52 7.31-7.41 mmol/L [id number] 25.1 35-51 mmol/L PO2VEN 163.1 28-40 mmol/L [id number] 19.8 23-30 mmol/L [id number] 20.6 23-27 mmol/L BEVEN -3.1 -2.4-2.3 mmol/L [id number] 98.9 50-70 % LACVEN 1.5 0.4-2.0 mmol/L H-DIFF (Not yet reviewed by provider) Interpretation: Performing Lab: Notes/Report: PIPE MANUAL DIFFERENTIAL MANUAL DIFF TCC 100 NEUT%M 87 42-76 % LYMPH%M 8 10-50 % MONO%M 5 2-9 % PLTE Slight Decrease RM Normal H-CBC (Not yet reviewed by stu cagle) Interpretation: Performing Lab: Notes/Report: WBC 7.1 4.8-10.8 K/mm3 RBC 3.64 4.20-5.40 M/mm3 HGB 10.2 12.2-16.2 g/dL Delta: 11.4 o n 05/08/25-1140 HCT 32.1 37.0-47.0 % MCV 88.2 81-99 fl MCH 28.0 27.0-31.2 pg MCHC 31.8 31.8-35.4 g/dL RDW-SD 54.9 RDW 17.0 11.5-17.5 % PLT 111 142-424 K/mm3 MPV 10.7 7.4-10.4 fl NE% 88.7 37.0-80.0 % LY% 5.5 10-50 % MO% 4.9 1.7-9.3 % EO% 0.0 0.1-12.0 % BA% 0.1 0.1-2.0 % NRBC% 0 IG% 0.8 NE# 6.3 1.8-7.8 K/mm3 LY# 0.4 0.7-4.5 K/mm3 MO# 0.4 0.1-1.0 K/mm3 EO# 0.0 0.0-0.4 Kmm3 BA# 0.0 0-0.2 K/mm3 NRBC# 0 IG# 0.06 CXR Reviewed date:12/24/2024 08:24:52 AM Interpretation: Performing Lab: Notes/Report: Urine Culture and Sensitivit y Reviewed date:03/31/2025 02:29:25 PM Interpretation:No Growth Performing Lab: Notes/Report: No Growth H-BMP Reviewed date:08/13/2024 09:36:50 AM Interpretation: Performing Lab: Notes/Report: NA 137 136-145 mmol/L K 3.7 3.5-5.1 mmoL/L CL 98 98-107 mmol/L CO2 39 22.0-30.0 mmol/L GAP 3.7 5-15 mEq/L BUN 19 7-17 mg/dl CREATT 0.90 0.52-1.04 mg/dl CRCLE 60 50-200 mL/min GFRAA 72 >60 ML/MIN EGFR 60 >60 ml/min GLU 108 74-100 mg/dl CA 9.1 8.4-10.2 mg/dl H-CBC Reviewed date:08/13/2024 09:36:50 AM Interpretation: Performing [...] MG 2.0 1.6-2.3 mg/dl Delta: 0.8 on 08/08/24-07 H-BMP Reviewed date:08/10/2024 03:13:24 PM Interpretation: Performing [...] K/mm3 BA# 0.0 0-0.2 K/mm3 H-BMP Reviewed date:07/15/2024 11:15:17 AM Interpretation: Performing [...] K/mm3 BA# 0.1 0-0.2 K/mm3 H-BMP Reviewed date:07/14/2024 08:47:31 AM Interpretation: Performing Lab: Notes/Report: NA 137 136-145 mmol/L K 3.7 3.5-5.1 mmoL/L CL 88 98-107 mmol/L GAP 12.7 5-15 mEq/L BUN 38 7-17 mg/dl CREATT 0.80 0.52-1.04 mg/dl CRCLE 61 50-200 mL/min GFRAA 82 >60 ML/MIN EGFR 68 >60 ml/min GLU 228 74-100 mg/dl Delta: 325 on 07/13/24-831 Delta: 325 on 07/13/24 CA 7.9 8.4-10.2 [...] Performing Lab: Notes/Report: TSH 0.78 0.465-4.68 uIU/mL H-Urine Culture and Sensitiv ity Reviewed date:02/24/2025 02:29:45 PM Interpretation:suggests contamination Performing Lab: Notes/Report: suggests contamination H-CBC Reviewed date:04/05/2025 08:37:42 AM Interpretation: Performing [...] 113 74-100 mg/dl CA 9.3 8.4-10.2 mg/dl Iron Reviewed date:04/02/2025 11:02:14 AM Interpretation: Performing Lab: Notes/Report: M-Venous Blood Gas Reviewed date:04/02/2025 11:02:14 AM Interpretation: Performing Lab: Notes/Report: PHVEN 7.37 7.31-7.41 mmol/L [id number] 59.8 35-51 mmol/L CRITICAL RESULT Results called to:DARLING RN by Kate Lopez RT, CHOCOLATE MOLDER at 0307 on 04/02/25 PO2VEN 36.9 28-40 mmol/L JJR3BVU 34.0 23-30 mmol/L [id number] 35.9 23-27 mmol/L BEVEN 8.8 -2.4-2.3 mmol/L [id number] 71.7 50-70 % LACVEN 1.7 0.4-2.0 mmol/L H-Sputum Culture with Gram Chaim gilliland Reviewed date:04/07/2025 01:00:59 PM Interpretation: Performing Lab: Notes/Report: Cancel Comments Cancelled via OM: Order cancelled - Patient discharged Comment: Induce w/3ml NS neb tx if necessary H-CBC Reviewed date:04/05/2025 08:37:42 AM Interpretation: Performing [...] 104 74-100 mg/dl CA 9.7 8.4-10.2 mg/dl CMP Reviewed date:04/23/2025 11:42:34 AM Interpretation:Abnormal Performing Lab: Notes/Report: Abnormal H-COVIDPANEL Reviewed date:07/09/2024 12:34:39 PM Interpretation: Performing Lab: Notes/Report: No Is this the 1st COVID test for the patient? No Does the patient have COVID symptoms? Yes Is the patient employed in healthcare? No Is patient an [employer] employee? N Is patient currently hospitalized? Yes Is patient currently in ICU? No Date of Symptom onset Is patient a resident in a congregate care setting? No ADENOQIA Not Detected NotDetected CORONAHKU1 Not Detected NotDetected [id number] Not Detected NotDetected [id number] Not Detected NotDetected YLBIZVX88 Not Detected NotDetected METAPNEUMO Not Detected NotDetected RHINOENTER Not Detected NotDetected INFLUAPCR Not Detected NotDetected FLUAH1 Not Detected NotDetected [id number] Not Detected NotDetected INFLUAH3 Not Detected NotDetected [...] Notes/Report: Cancel Comments NEEDS REORDER NOT SENT H-UA Reviewed date:03/15/2025 04:38:33 PM Interpretation: Performing [...] date:04/01/2025 04:10:32 PM Interpretation: Performing Lab: Notes/Report: BMP Reviewed date:05/03/2025 04:19:34 PM Interpretation: Performing Lab: Notes/Report: H-UA Reviewed date:02/24/2025 04:52:18 PM Interpretation: Performing [...] 3-5 0-5 #/hpf UBACT Trace NONE /lpf H-Urine Culture and Sensitiv ity Reviewed date:03/15/2025 04:38:33 PM Interpretation: Performing Lab: Notes/Report: CUU Multiple organisms, suggests contamination. H-CBC Reviewed date:08/11/2024 10:07:56 AM Interpretation: Performing Lab: Notes/Report: WBC 6.7 4.8-10.8 K/mm3 Delta: 10.9 o n 08/10/24-0646 RBC 4.12 4.20-5.40 M/mm3 HGB 10.1 12.2-16.2 [...] Performing Lab: Notes/Report: VANCP 29.6 11-39 ug/ml H-CMP Reviewed date:07/13/2024 03:48:34 PM Interpretation: Performing [...] 1.1-1.8 ALP 74 38-126 U/L H-CBC Reviewed date:07/13/2024 08:42:29 AM Interpretation: Performing [...] NS neb tx if necessary H-CBC Reviewed date:07/11/2024 09:06:38 AM Interpretation: Performing [...] 8.4-10.2 mg/dl H-Sputum Culture with Gram Chaim supriyaalena Reviewed date:05/14/2024 08:29:43 AM Interpretation: Performing Lab: Notes/Report: Comment: Induce w/3ml NS neb tx if necessary GS Gram Stain: GS 10 - 25 White Blood Cells / LPF GS Moderate Gram Positi ve Cocci GS <10 Epithelial Cells / LPF CUSPU ORGANISM 1: Staphylococcus aureus RX CHANG: R- Resistant S- Susceptible I- Intermediate * [facility]: R- Resistant S- Susceptible I- Intermediate * Not on [facility] RX CHANG: R- Resistant S- Susceptible I- Intermediate * Not on [facility] RX CHANG: R- Resistant S- Susceptible I- Intermediate * Not on [facility] Staphylococcus aureu s: REACTION RX CHANG: R- Resistant S- Susceptible I- Intermediate * Not on [facility] Clindamycin <=0.5 S RX CHANG: R- Resistant S- Susceptible I- Intermediate * Not on [facility] Erythromycin <=0.5 S RX CHANG: R- Resistant S- Susceptible I- Intermediate * Not on [facility] Gentamicin <=1 S RX CHANG: R- Resistant S- Susceptible I- Intermediate * [facility] Min[facility] <=1 S RX CHANG: R- Resistant S- Susceptible I- Intermediate * Not on [facility] Oxacillin <=0.25 S RX CHANG: R- Resistant S- Susceptible I- Intermediate * Not on [facility] Rifampin <=0.5 S RX CHANG: R- Resistant S- Susceptible I- Intermediate * Not on [facility] Tetracycline <=0.5 S RX CHANG: R- Resistant S- Susceptible I- Intermediate * Not on [facility] Trimethoprim/Sulfame tho xazole <=0.5/9.5 S RX CHANG: R- Resistant S- Susceptible I- Intermediate * Not on [facility] Vancomycin 1 S RX CHANG: R- Resistant S- Susceptible I- Intermediate * Not on [facility] CUSPU RX CHANG: R- Resistant S- Susceptible [...] 102 74-100 mg/dl CA 8.7 8.4-10.2 mg/dl UA Reviewed date:03/30/2025 01:01:11 PM Interpretation:Abnormal Performing Lab: Notes/Report: Abnormal Medications Medication SIG (Take, Route, Frequency, Duration) Notes Start Date End Date Status o2 with portable conserving device 1 use as directed Activ e Regular Diet - as directed [facility] Zocor 20 MG 1 tab(s) [...] Status W/U Status Risk Notes Problem Hyperlipidaemia (18513590) Hyperlipemia (272.4) Active confirmed Problem Essential hypertension (76927504) Essential (primary) hypertension (I10) Active confirmed Problem Tear film insufficiency (90131122) Dry eyes, bilateral (H04.123) Active confirmed Problem History of malignant melanoma of the skin (974103907087) History of melanoma (Z85.820) Active confirmed Problem Essential hypertension (69418386) Essential hypertension (I10) Active confirmed Problem Hypertriglyceridemia (514331066) Hypertriglyceridemia (E78.1) Active confirmed Problem Long-term current us e 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 (206451295) [facility] current use 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 (Z79.01) Active confirmed Problem Obstructive sleep apnea (63165173) Obstructive sleep apnea (G47.33) Active confirmed Problem Hypokalemia (45925053) History of hypokalemia (Z86.39) Active confirmed Problem Mixed anxiety and depressive disorder (740395714) Depression with anxiety (F41.8) Active confirmed Problem Acute exacerbation o f chronic obstructive airways disease (198977111) COPD exacerbation (J44.1) Active confirmed Problem Mixed hyperlipidemia (855794161) Mixed hyperlipidemia (E78.2) Active confirmed Problem Hypomagnesemia (570171277) Hypomagnesemia (E83.42) Active confirmed Problem Allergic rhinitis (79269488) Allergic rhinitis, unspecified (J30.9) Active confirmed Problem Chronic pulmonary edema (15495138) Chronic pulmonary edema (J81.1) Active confirmed Problem Chronic respiratory failure (85082478) Chronic respiratory failure, unspecified whether with hypoxia or hypercapnia (J96.10) Active confirmed Problem Kfqkv-qz-nvppqww hypoxemic respiratory failure (89689039050325756) Acute and chronic respiratory failure with hypoxia (J96.21) Active confirmed Problem Abnormal findings on diagnostic imaging of breast (484239586) Other abnormal and inconclusive findings on diagnostic imaging of breast (R92.8) Active confirmed Problem History of polyp of colon (situation) (946550125) History of colon polyps (Z86.010) Active confirmed Problem Chronic pain (79123942) Other chronic pain (G89.29) Active confirmed Problem Pulmonary emphysema (91741020) Pulmonary emphysema, unspecified emphysema type (J43.9) Active confirmed Problem Primary osteoarthritis (836033365) Primary osteoarthritis involving multiple joints (M15.0) Active confirmed Problem Gastroesophageal reflux disease (disorder) (147764866) Chronic GERD (K21.9) Active confirmed Problem COPD - Chronic obstructive pulmonary disease (14376103) Chronic obstructive pulmonary disease, unspecified COPD type (J44.9) Active confirmed Problem Acute exacerbation o f chronic obstructive airways disease (890930937) Acute exacerbation of chronic obstructive pulmonary disease (COPD) (J44.1) Active confirmed Problem Gastroesophageal reflux disease (936203718) Gastroesophageal reflux disease, esophagitis presence not specified (K21.9) Active confirmed Problem Neuropathy (521965425) Neuropathy (G62.9) Active confirmed Problem Allergic rhinitis (33489464) Allergic rhinitis (J30.9) Active confirmed Problem Lumbar spinal stenosis (47004286) Spinal stenosis, lumbar (M48.06) Active confirmed Problem Osteoporosis (27818790) Osteoporosis (M81.0) Active confirmed Problem Cardiac arrhythmia (339342351) Atrial dysrhythmia (I49.8) Active confirmed Problem Anemia (285317233) Anemia, unspe cified type (D64.9) Active confirmed Problem Sleep apnea (21584437) Sleep apnea, unspecified type (G47.30) Active confirmed Problem Hyperlipidaemia (53716696) Hyperlipidemia, unspecified hyperlipidemia type (E78.5) Active confirmed Problem Polyneuropathy due t o type 2 diabetes mellitus (815158841) 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) Active confirmed Problem Cwaze-tn-hcvzizo hypoxemic respiratory failure (02724547369492705) Acute on chronic respiratory failure with hypoxia (J96.21) Active confirmed Problem Atrial ectopic (960307948) Atrial ectopic (I49.1) Active confirmed Problem Low back pain (740528806) Chronic right-sided low back pain without sciatica (M54.5) Active confirmed Problem Type II diabetes mellitus without complication (427708587) Type 2 diabetes mellitus without complication, without long-term current use of insulin (E11.9) Active confirmed Problem Cramp in lower leg associated with rest (968926558) Leg cramps, sleep related (G47.62) Active confirmed Problem 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, choroid, 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 Problem Hypertensive urgency (498988711) Hypertensive urgency (I16.0) Active confirmed Problem Urge incontinence of urine (81242523) Urge incontinence of urine (N39.41) Active confirmed Problem Sleep apnea (78891315) Sleep apnea in adult (G47.30) Active confirmed Problem Arthritis of right hip (0128860573590050) Arthritis of right hip (M16.11) Active confirmed Problem Deformity of foot (finding) (105053265) Deformity of foot, unspecified laterality (M21.969) Active confirmed Problem Type II diabetes mellitus without complication (530611639) Type 2 diabetes mellitus without complication, unspecified whether binder roller insulin use (E11.9) Active confirmed Problem Diastolic dysfunctio n (6010417) Diastolic dysfunction (I51.89) Active confirmed Problem Osteomyelitis (26034827) Osteomyelitis of toe of right foot (M86.9) Active confirmed Problem Gastroesophageal reflux disease (157737920) Gastroesophageal reflux disease, unspecified whether esophagitis present (K21.9) Active confirmed Problem Chronic kidney disease stage 3B (disorder) (946680902) Stage 3b chronic kidney disease (CKD) (N18.32) Active confirmed Problem Chronic kidney disease stage 3A (disorder) (892897675) Stage 3a chronic kidney disease (CKD) (N18.31) Active confirmed Problem Anemia (999247302) Acute anemia (D64.9) Active confirmed Problem Abnormal gait (43239293) Inability to bear weight (R26.89) Active confirmed Problem Left ankle joint deformity (M21.962) Active confirmed Vital Signs Heart Rate 62 /min 04/27/2025 Respiratory Rate 18 /min 04/27/2025 Blood pressure diastolic 64 mm Hg 04/27/2025 Height 65.50 in 04/22/2025 Blood pressure systolic 109 mm Hg 04/27/2025 Weight 197.2 lbs 04/27/2025 BMI 32.51 kg/m2 04/22/2025 Encounters Encounter Location Date Provider Diagnosis [facility] [address] [facility] [address] [place] [id number] 06/04/2024 Allan [place] Pain in left ankle a nd joints of left foot M25.572 ; Diastolic dysfunction I51.89 ; Hypoxia R09.02 and Chronic obstructive pulmonary disease, unspecified COPD type J44.9 [place] [address] [place] [id number] 07/21/2024 Yvette Larryond Acute on chronic respiratory failure with hypoxia J96.21 ; Acute left ankle pain M25.572 ; Left ankle joint deformity M21.962 ; Left ankle instability M25.372 ; Hypoxia R09.02 ; Generalized weakness R53.1 ; Type 2 diabetes mellitus without complication, unspecified whether shelter insulin use E11.9 ; Essential (primary) hypertension [...] R53.81 and Leg cramps, sleep related G47.62 [place] [address] [place] [id number] 08/25/2024 Yvette Harris Left ankle joint deformity M21.962 ; Acute anemia D64.9 ; Neuropathy G62.9 ; Hyperlipidemia, unspecified hyperlipidemia type E78.5 ; Hypomagnesemia E83.42 ; Acute on chronic respiratory failure with hypoxia J96.21 ; Acute left ankle pain M25.572 ; Left ankle instability M25.372 ; Hypoxia R09.02 ; Generalized weakness R53.1 ; Type 2 diabetes mellitus without complication, unspecified whether binder roller insulin use E11.9 ; Essential (primary) hypertension [...] R53.81 and Leg cramps, sleep related G47.62 [facility] [address] [facility] [address] [facility] [address] [place], [place] [id number] 09/22/2024 Allan [place] Essential hypertensi on I10 ; Chronic obstructive pulmonary disease, unspecified COPD type J44.9 ; Dry eyes, bilateral H04.123 ; Depression with anxiety F41.8 ; Gastroesophageal reflux disease, esophagitis presence not specified K21.9 ; Hypomagnesemia E83.42 ; Debility R53.81 ; Allergic rhinitis J30.9 ; Osteoporosis M81.0 and Obstructive sleep apnea G47.33 [facility] [address] [facility] [address] [place], [place] [id number] 12/21/2024 Allan [place] Type 2 diabetes rere itus without complication, without long-term current use of insulin E11.9 ; Chronic respiratory failure, unspecified whether with hypoxia or hypercapnia J96.10 ; Other hemorrhoids K64.8 ; BRBPR (bright red blood per rectum) K62.5 ; Hypomagnesemia E83.42 ; Stage 3b chronic kidney disease (CKD) N18.32 and Chronic obstructive pulmonary disease, unspecified COPD type J44.9 [address] [place], [place] [id number] 04/13/2025 Yevtte Harris Chronic pulmonary ed [place] J81.1 ; [...] 2 diabetes mellitus without complication, unspecified whether shelter insulin use E11.[address] [place] [address] [place], [place] [id number] 04/27/2025 Yvetteben Harris Chronic pulmonary ed [place] J81.1 ; [...] Peripheral edema R60.9 and Dry skin L85.3 [facility] [address] [place], [place] [id number] 05/27/2024 Allan [place] Essential hypertensi on I10 [facility] [address] [place], [place] [id number] 06/04/2024 Allan [place] [facility] [address] [place], [place] [id number] 06/18/2024 Allan [place] [facility] [address] [place], [place] [id number] 08/04/2024 Allan [place] [facility] [address] [place], [place] [id number] 08/10/2024 Allan [place] [facility] [address] [place], [place] [id number] 08/21/2024 Allan [place] [facility] [address] [place], [place] [id number] 09/07/2024 Allan [place] Diabetic polyneuropa thy associated with type 2 diabetes mellitus E11.42 [facility] [address] [place], [place] [id number] 09/07/2024 Allan [place] Type 2 diabetes rere itus without complication, unspecified whether binder roller insulin use E11.9 ; Peripheral edema R60.9 and Debility R53.81 [facility] [address] [place], [place] [id number] 09/08/2024 Allan [place] Type 2 diabetes rere itus without complication, unspecified whether shelter insulin use E11.9 [facility] [address] [place] [id number] 09/22/2024 Allan [place] [facility] [address] [place] [id number] 09/24/2024 Allan [place] Allergic rhinitis J3 0.9 [facility] [address] [place], [place] [id number] 11/04/2024 Allan [place] [facility] [address] [place], [place] [id number] 11/04/2024 Allan [place] Gastroesophageal ref lux disease, esophagitis presence not specified K21.9 and Diabetic polyneuropathy associated with type 2 diabetes mellitus E11.42 [facility] [address] [place], [place] [id number] 11/05/2024 Allan [place] [facility] [address] [place], [place] [id number] 11/12/2024 Allan [place] [facility] [address] [place], [place] [id number] 11/13/2024 Ata Vences Essential hypertensi on I10 and Diabetic polyneuropathy associated with type 2 diabetes mellitus E11.42 [facility] [address] [place], [place] [id number] 11/27/2024 Allan [place] [facility] [address] [place] [id number] 12/03/2024 Allan [place] Chronic obstructive pulmonary disease, unspecified COPD type J44.9 [facility] [address] [place] [id number] 12/18/2024 Allan [place] [facility] [address] [place] [id number] 12/21/2024 Allan [place] Urge incontinence of urine N39.41 and Hyperlipidemia, unspecified hyperlipidemia type E78.5 [facility] [address] [place], [place] [id number] 12/22/2024 Allan [place] [facility] [address] [place] [id number] 12/23/2024 Allan [place] [facility] [address] [place] [id number] 12/24/2024 Allan [place] [facility] [address] [place] [id number] 12/25/2024 Allan [place] [facility] [address] [place] [id number] 12/28/2024 Allan [place] [facility] [address] [place] [id number] 12/30/2024 Allan [place] [facility] [address] [place], [place] [id number] 12/30/2024 Allan Wichita [facility] [address] [place], [place] [id number] 01/04/2025 Allan Wichita [facility] [address] [place], [place] [id number] 02/12/2025 Allan Wichita [facility] [address] [place], [place] [id number] 02/24/2025 Allan Wichita [facility] [address] [place], [place] [id number] 03/02/2025 Allan Wichita [facility] [address] [place], [place] [id number] 03/08/2025 Allan Wichita Diabetic polyneuropa thy associated with type 2 diabetes mellitus E11.42 [facility] [address] [place], [place] [id number] 03/25/2025 Allan Wichita [facility] [address] [place], [place] [id number] 03/29/2025 Allan Wichita [facility] [address] [place], [place] [id number] 03/31/2025 Allan Wichita [facility] [address] [place] [id number] 03/31/2025 Allan Wichita [facility] [address] [place], [place] [id number] 04/01/2025 Allan Wichita [facility] [address] [place], [place] [id number] 04/07/2025 Allan Wichita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
--- NOTE | 2025-05-10 07:46 | PC.NURSE ---
at 0730 Kailash Garcia APRN with Dr. Adamson is in the room at this time.
--- NOTE | 2025-05-10 08:27 | SW/DCPLANNER ---
Addendum entered by Melony Kim 05/13/25 09:23: I have updated Larry shine/ Isaías Moralez that patient will return today SNF level of care. Addendum entered by Melony Kim 05/12/25 15:19: Updated patient information faxed to Larry Moralez. Addendum entered by Melony Kim 05/11/25 08:01: Updated patient information faxed to Larry Moralez. Per PT/OT recommendation is to return SNF level of care. Original Note: [place] [facility] [place] patient information has been faxed to Larry shine/ Isaías Moralez. Discharge date is unknown at this time. Larry is interested in patient returning SNF if needed at time of discharge.
--- NOTE | 2025-05-10 08:30 | EXP.PN ---
Subjective *Date: 05/10/25 *Time: 09:16 Interval history: Patient is awake this morning. She denies being short of breath at present. She denies chest pain. Potassium is normal this morning at 5.1. BUN has improved to 67 with a creatinine of 2.10. Hemoglobin is 10.3 and hematocrit 33.5. Platelet count is 776043. Chest x-ray completed yesterday 05/09/2025 with the following results.: FINDINGS: Lungs: Opacity in the left base may represent atelectasis or pneumonia.. Pleural spaces: Unremarkable. No pleural effusion. No pneumothorax. Heart/Mediastinum: Unremarkable. No cardiomegaly. Bones/joints: Unremarkable. IMPRESSION: Opacity in the left base may represent atelectasis or pneumonia.. Exam Data for Last 24 hours Vital signs and Labs for Last 24 Hours: Temp Pulse Resp BP Pulse Ox O2 Del Method O2 Flow Rate 98.9 F 84 22 150/70 H 91 L Nasal Cannula 4 05/10/25 08:00 05/10/25 08:00 05/10/25 08:00 05/10/25 08:00 05/10/25 08:00 05/10/25 08:00 05/10/25 08:00 FiO2 40 05/10/25 04:00 Laboratory Results - last 24 hr 05/09/25 05:45: Hgb 10.2 L D, Total Counted 100, Neutrophils % (Manual) 87 H, Lymphocytes % (Manual) 8 L, Monocytes % (Manual) 5, Platelet Estimate Slight decrease, RBC Morphology Normal 05/09/25 11:07: POC Glucose 147 H 05/09/25 17:06: POC Glucose 119 H 05/09/25 19:28: POC Glucose 116 H 05/10/25 05:30: POC Glucose 110 05/10/25 05:36: WBC 7.2, RBC 3.68 L, Hgb 10.3 L, Hct 33.5 L, MCV 91.0, MCH 28.0, MCHC 30.7 L, RDW 17.9 H, Plt Count 101 L, MPV 11.1 H, Neut % (Auto) 79.2, Lymph % (Auto) 9.3 L, Wells % (Auto) 9.7 H, Eos % (Auto) 0.0 L, Baso % (Auto) 0.3, Neut # (Auto) 5.7, Lymph # (Auto) 0.7, Wells # (Auto) 0.7, Eos # (Auto) 0.0, Baso # (Auto) 0.0, Sodium 139, Potassium 5.1, Chloride 110 H, Carbon Dioxide 21 L, Anion Gap 13.1, BUN 67 H, Creatinine 2.10 H D, Estimated Creat Clear 28, Estimated GFR 22 L, Est GFR ( Amer) 27 L D, Glucose 90 D, Calcium 9.1, Phosphorus 3.5, Magnesium 1.7, Total Bilirubin 0.7, AST 42 H D, ALT 12, Alkaline Phosphatase 59, Total Protein 6.2 L, Albumin 3.5, Globulin 2.7, Albumin/Globulin Ratio 1.3 I & O for Last 24 hours: Intake & Output 05/07/25 05/08/25 05/09/25 05/10/25 11:59 11:59 11:59 11:59 Intake Total 3622 / 3622 1720 / 1720 Output Total 1650 / 1650 1550 / 1550 Balance 1971 / 1971 170 / 170 Weight 214 lb 203 lb 11.2 oz 205 lb 9.6 oz Microbiology Reports for the Last 24 Hours: Microbiology 05/08/25 13:56 Blood Blood Culture - Preliminary NO GROWTH AFTER 24 HOURS 05/08/25 13:44 Blood Blood Culture - Preliminary NO GROWTH AFTER 24 HOURS Constitutional Constitutional: no acute distress *Routine Respiratory Exam Respiratory: Present decreased breath sounds (Much improved) and crackles (Right base) *Routine Cardiovascular Exam Cardiovascular: Present RRR (Monitor showing sinus rhythm with runs of PAT.) *Routine Abdominal Exam Abdominal: Present soft, normoactive bowel sounds and obese; Absent tenderness *Routine Extremities Exam Extremities: Present edema (1+ bilateral lower legs) and pulses intact; Absent calf tenderness *Routine Skin Exam Skin: Present dry *Routine Neurological Exam Neurological: Present alert; Absent oriented X3 Assessment and Plan *Assessment and plan (1) Acute on chronic respiratory failure with hypoxia and hypercapnia: Status: Acute Category: Medical Code(s): J96.21 - Acute and chronic respiratory failure with hypoxia; J96.22 - Acute and chronic respiratory failure with hypercapnia (2) Pneumonia: Status: Acute Category: Medical Code(s): J18.9 - Pneumonia, unspecified organism (3) Acute hyperkalemia: Status: Acute Category: Medical Code(s): E87.5 - Hyperkalemia (4) RICHIE (acute kidney injury): Status: Acute Category: Medical Code(s): N17.9 - Acute kidney failure, unspecified (5) Acidosis, metabolic, with respiratory acidosis: Status: Acute Category: Medical Code(s): E87.4 - Mixed disorder of acid-base balance (6) DM type 2 (diabetes mellitus, type 2): Status: Acute Qualifiers: Chronic kidney disease stage: stage 3 (moderate) Chronic kidney disease stage 3 subtype: stage 3b (GFR 30-44) Diabetes mellitus complication detail: with chronic kidney disease Diabetes mellitus halfway insulin use: unspecified intermediate card tender insulin use status Category: Medical Code(s): E11.9 - Type 2 diabetes mellitus without complications (7) Hypertension: Status: Acute Qualifiers: Hypertension type: primary hypertension Qualified Code(s): I10 - Essential (primary) hypertension Category: Medical Code(s): I10 - Essential (primary) hypertension (8) Neuropathy: Status: Acute Category: Medical Code(s): G62.9 - Polyneuropathy, unspecified (9) Depression: Status: Acute Qualifiers: Depression Type: unspecified Qualified Code(s): F32.A - Depression, unspecified Category: Medical Code(s): F32.A - Depression, unspecified (10) GERD (gastroesophageal reflux disease): Status: Acute Qualifiers: Esophagitis presence: esophagitis presence not specified Qualified Code(s): K21.9 - Gastro-esophageal reflux disease without esophagitis Category: Medical Code(s): K21.9 - Gastro-esophageal reflux disease without esophagitis (11) Hyperlipidemia: Status: Acute Qualifiers: Hyperlipidemia type: unspecified Qualified Code(s): E78.5 - Hyperlipidemia, unspecified Category: Medical Code(s): E78.5 - Hyperlipidemia, unspecified (12) Debility: Status: Acute Category: Medical Code(s): R53.81 - Other malaise Plan Continue with current care. Renal function is slowly improving. Respiratory status has greatly improved. Dr. Adamson entry - Saw patient agree with above note.
--- NOTE | 2025-05-10 09:30 | HMH.PTEV ---
Physical Therapy Evaluation Rehab PT IP Evaluation Start: 05/08/25 16:17 Freq: ONCE Status: Active Protocol: Document 05/10/25 09:24 DEUCE (Rec: 05/10/25 09:28 DEUCE [id number]) Subjective/History History History Per H&P: Ms. Nascimento is an 84 year old patient of [facility] that current resides at [place] in the assisted living facility. The patient has a history of oxygen dependent COPD. The nursing staff called and stated she was difficult to arouse yesterday and was unable to take her medications by mouth due to falling asleep easily. EMS was called and she was brought to [facility] were she was found to be hypoxic and be in respiratory failure. BiPAP treatment was initiated in the ER. She was admitted at [facility] a little over one month ago with a very similar presentation. Patient is unable to provide any historical information today. Subjective Subjective Pt reports she lives at [facility] and is usually able to ambulate short distances with a RW and 1 assist. Pt reports she uses a w/c for community distances. New diagnosis of No cancer in past 12 months? [facility] How much help from another person do you currently need... Turning from your A lot back to your side while in a flat bed without using bedrails? Moving from lying on A lot back to sitting on the side of a flat bed without using bedrails? Moving to and from a A lot bed to a chair ( including a wheelchair)? Standing up from a A lot chair using your arms? (e.g., wheelchair, bedside chair) Walking in hospital A lot room? Climbing 3-5 steps A lot with a railing? Mobility Score 12 Mobility Level [facility] Mobility 4 Move to chair/commode Mobility Calculator Rehab PT IP Eval Objective Appearance Patient Behavior Appropriate,Cooperative Difficulty following none instructions Ambulation Patient Able to No Ambulate Balance Ability to Arise Able, uses arms to help Sitting Balance Leans or slides in chair Standing Balance Unsteady Transfers Bed Transfer Ability Moderate x 1 (50% assist) Rehab PT IP prob,goals,plan Problems Date of Evaluation: 05/10/25 PT IP Problems Bed Mobility,Transfers,Gait,Balance,Self care,Safety Rehab Potential Rehab Potential Good Plan PT Intervention Plan Bed Mobility,Transfers,Gait,Balance,Self care,Safety, Therapeutic Exercise Other Intervention 1-2 times Plan PT Plan Frequency Daily Duration LOS Discharge Goals Bed Transfer Ability Minimal x 1 (25% assist) Sit to Stand Chair Moderate x 1 (50% assist) Transfer Ability Ambulation Assistive Rolling Walker Device Ambulation Distance 5 (feet) Discharge Plan PT Discharge Plan Pt is currently most appropriate for rehab placement once medically stable for d/c from [facility]. Skilled acute therapy services are indicated to improve all mobility, general strength, and endurance to activity in order to return pt to [facility]. Eval Complexity Eval Charge Codes 99807 - Moderate Complexity PHYSICIAN CERTIFICATION: I certify the specified therapy services for Kirstie Nascimento are required, authorized, and reviewed every 30 days.
--- NOTE | 2025-05-10 09:52 | HMH.OTEV ---
OT Evaluation Rehab OT IP Evaluation Start: 05/08/25 16:17 Freq: ONCE Status: Active Protocol: Document 05/10/25 09:46 DAVIDA (Rec: 05/10/25 09:52 DAVIDA [id number]) Rehab OT IP Assessment Subjective History Per H&P: Ms. Nascimento is an 84 year old patient of [facility] that current resides at [place] in the assisted living facility. The patient has a history of oxygen dependent COPD. The nursing staff called and stated she was difficult to arouse yesterday and was unable to take her medications by mouth due to falling asleep easily. EMS was called and she was brought to [facility] were she was found to be hypoxic and be in respiratory failure. BiPAP treatment was initiated in the ER. She was admitted at [facility] a little over one month ago with a very similar presentation. Patient is unable to provide any historical information today. Subjective I am scared to fall. Pt supine in bed when therapy entered room. Pt orient x3. Pt reports she lives at [facility] and is usually able to complete FM of short distances with a RW and 1 assist. Pt reports she uses a w/c for community distances. Pt reports they are ind in dressing but need assist for bathing. Pt reports they are normally on O2 at baseline. Pt agreed to sit on EOB. Pt went from supine to EOB with Mod A. Pt able to tolerate sitting at EOB and demo good static sitting balance with CGA. Pt reported they wanted to stay in bed. Pt went from EOB to supine and boost in bed to reposition. Pt left with call light and all other needs within reach. Objective Patient Orientation Person,Place,Name Right Upper WFL Extremity Gross ROM Left Upper Extremity WFL Gross ROM Bed Mobility bed mobility-scooting,bed mobility - supine/sit Assist Level Moderate x 1 (50% assist) Decrease in Yes Endurance Rehab OT IP prob,goals,plan Problems Date of Evaluation: 05/10/25 OT IP Problems Bed Mobility,Transfers,Balance,Self care,Safety Rehab Potential Rehab Potential Good Equipment Needs Assistive Devices Rolling / Wheeled Walker,Wheelchair Plan OT intervention Plan Bed Mobility,Transfers,Balance,Self care,Safety, Therapeutic Exercise OT Plan Frequency Daily Duration LOS Discharge Goals Bed Mobility Ability Standby Assistance Sit to Stand Chair Supervision/Stand by Transfer Ability Chair Transfer Supervision/Stand by Ability Chair Transfer Sit to/from Ambulatory Technique Chair Transfer Rolling Walker Assistive Devices Feeding Ability Assist with Tray Set Up Commode/Toilet Raised Toilet Seat,Grab Bars Transfer Assistive Devices Decrease in No Endurance Discharge Plan OT Discharge Plan At this time, Pt is currently most appropriate for rehab placement once medically stable for d/c from [facility]. Skilled acute OT services are indicated to improve all functional mobility, general strength, and endurance to activity in order to return pt to [facility] to improve optimal occupational performance and QOL. Eval Complexity Eval Charge Codes 50385 - Moderate Complexity PHYSICIAN CERTIFICATION: I certify the specified therapy services for Kirstie Nascimento are required, authorized, and reviewed every 30 days.
[2025-05-10] MEDS: LEVOFLOXACIN/D5W 500 MG/100 ML PIGGYBACK 100 MG IV (10:30)
[2025-05-10] MEDS: ACETAMINOPHEN 325MG TAB 650 MG PO (10:30)
[2025-05-10 11:39] LABS: POC Glucose,Bedside 164 gm/dL (70-110)
[2025-05-10 17:43] LABS: POC Glucose,Bedside 109 gm/dL (70-110)
[2025-05-10 20:11] LABS: POC Glucose,Bedside 115 gm/dL (70-110)
[2025-05-11] VITALS (16 sets, daily range): BP systolic 125–175; BP diastolic 63–91; PULSE 56–110; RESP 16–28; TEMP 36.4–37.1; O2SAT 91–96; BMI 34.5
[2025-05-11] MEDS: IPRATROPIUM/ALBUTEROL 3 ML NEB IH ×3 (06:01→18:54)
[2025-05-11 06:19] LABS: POC Glucose,Bedside 124 gm/dL (70-110)
--- NOTE | 2025-05-11 08:25 | EXP.PN ---
Subjective *Date: 05/11/25 *Time: 08:59 Interval history: Patient appears comfortable. Dyspneic with talking. Will not wear BiPAP. States she will never wear it again. She hates it. She did sleep some. She denies any chest pain. She does not feel short of breath. She states she is not coughing. She did stand at bedside with physical therapy yesterday and became very tired. She has periodic nausea and just does not feel like eating. Exam Data for Last 24 hours Vital signs and Labs for Last 24 Hours: Temp Pulse Resp BP Pulse Ox O2 Del Method O2 Flow Rate 98.6 F 96 H 20 151/75 H 93 L Nasal Cannula 3 05/11/25 08:00 05/11/25 08:00 05/11/25 08:00 05/11/25 08:00 05/11/25 08:00 05/11/25 08:00 05/11/25 08:00 FiO2 40 05/10/25 04:00 Laboratory Results - last 24 hr 05/10/25 11:32: POC Glucose 164 H 05/10/25 17:37: POC Glucose 109 05/10/25 20:02: POC Glucose 115 H 05/11/25 06:11: POC Glucose 124 H I & O for Last 24 hours: Intake & Output 05/08/25 05/09/25 05/10/25 05/11/25 11:59 11:59 11:59 11:59 Intake Total 3622 / 3622 1820 / 1820 2301.25 / 2301.25 Output Total 1650 / 1650 1550 / 1550 2150 / 2150 Balance 1971 / 1971 270 / 270 151.25 / 151.25 Weight 214 lb 203 lb 11.2 oz 205 lb 9.6 oz 207 lb 9.6 oz Microbiology Reports for the Last 24 Hours: Microbiology 05/08/25 13:56 Blood Blood Culture - Preliminary NO GROWTH AFTER 48 HOURS 05/08/25 13:44 Blood Blood Culture - Preliminary NO GROWTH AFTER 48 HOURS Constitutional Constitutional: no acute distress and obese Comments: Sitting up in the bed and completing her breakfast. Appears comfortable. *Routine Respiratory Exam Respiratory: Present CTA bilaterally (Anteriorly and posteriorly with decreased breath sounds.) *Routine Cardiovascular Exam Cardiovascular: Present RRR (Monitor showing sinus rhythm.) *Routine Abdominal Exam Abdominal: Present soft, normoactive bowel sounds and obese; Absent tenderness *Routine Extremities Exam Extremities: Absent edema or calf tenderness *Routine Neurological Exam Neurological: Present alert and oriented X3 (Sometimes difficult to understand due to mumbling) Assessment and Plan *Assessment and plan (1) Acute on chronic respiratory failure with hypoxia and hypercapnia: Status: Acute Category: Medical Code(s): J96.21 - Acute and chronic respiratory failure with hypoxia; J96.22 - Acute and chronic respiratory failure with hypercapnia (2) Pneumonia: Status: Acute Category: Medical Code(s): J18.9 - Pneumonia, unspecified organism (3) Acute hyperkalemia: Status: Acute Category: Medical Code(s): E87.5 - Hyperkalemia (4) RICHIE (acute kidney injury): Status: Acute Category: Medical Code(s): N17.9 - Acute kidney failure, unspecified (5) Acidosis, metabolic, with respiratory acidosis: Status: Acute Category: Medical Code(s): E87.4 - Mixed disorder of acid-base balance (6) DM type 2 (diabetes mellitus, type 2): Status: Acute Qualifiers: Chronic kidney disease stage: stage 3 (moderate) Chronic kidney disease stage 3 subtype: stage 3b (GFR 30-44) Diabetes mellitus complication detail: with chronic kidney disease 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 insulin use status Category: Medical Code(s): E11.9 - Type 2 diabetes mellitus without complications (7) Hypertension: Status: Acute Qualifiers: Hypertension type: primary hypertension Qualified Code(s): I10 - Essential (primary) hypertension Category: Medical Code(s): I10 - Essential (primary) hypertension (8) Neuropathy: Status: Acute Category: Medical Code(s): G62.9 - Polyneuropathy, unspecified (9) Depression: Status: Acute Qualifiers: Depression Type: unspecified Qualified Code(s): F32.A - Depression, unspecified Category: Medical Code(s): F32.A - Depression, unspecified (10) GERD (gastroesophageal reflux disease): Status: Acute Qualifiers: Esophagitis presence: esophagitis presence not specified Qualified Code(s): K21.9 - Gastro-esophageal reflux disease without esophagitis Category: Medical Code(s): K21.9 - Gastro-esophageal reflux disease without esophagitis (11) Hyperlipidemia: Status: Acute Qualifiers: Hyperlipidemia type: unspecified Qualified Code(s): E78.5 - Hyperlipidemia, unspecified Category: Medical Code(s): E78.5 - Hyperlipidemia, unspecified (12) Debility: Status: Acute Category: Medical Code(s): R53.81 - Other malaise Plan Will need to continue with physical therapy. Will restart some of home meds. will move to Med/Surg floor. Dr. Adamson entry - Saw patient, agree with above note. SHe is more alert today, ate some breakfast. She still has some hallucinations. Move to Med/surg today.
[2025-05-11] MEDS: METOPROLOL SUCCINATE XL 50MG TABLET 50 MG PO (09:25)
[2025-05-11] MEDS: ESCITALOPRAM 20MG TABLET 20 MG PO (09:25)
--- NOTE | 2025-05-11 10:34 | PC.NURSE ---
Called report to Gardenia Liang RN. Patient going to med surg room 200
--- NOTE | 2025-05-11 11:17 | PC.NURSE ---
arrived by bed from ICU
[2025-05-11 11:49] LABS: POC Glucose,Bedside 121 gm/dL (70-110)
[2025-05-11 20:12] LABS: POC Glucose,Bedside 114 gm/dL (70-110)
[2025-05-11] MEDS: PRAVASTATIN 40MG TAB 40 MG PO (21:02)
[2025-05-11] MEDS: MONTELUKAST SODIUM 10MG TAB 10 MG PO (21:03)
[2025-05-12] VITALS (12 sets, daily range): BP systolic 128–153; BP diastolic 62–84; PULSE 50–84; RESP 16–20; TEMP 36.1–37.1; O2SAT 91–97; BMI 34.6
[2025-05-12] MEDS: IPRATROPIUM/ALBUTEROL 3 ML NEB IH ×5 (00:01→23:13)
--- NOTE | 2025-05-12 02:37 | PC.NURSE ---
Pt alert and oriented this shift. No acute changes at this point in the shift. VSS. Currently resting in bed with eyes closed. Respirations even and unlabored. Bed is low, locked, and call light is in reach.
[2025-05-12 05:23] LABS: POC Glucose,Bedside 115 gm/dL (70-110)
--- NOTE | 2025-05-12 06:00 | XR_ITS ---
PROCEDURE INFORMATION: Exam: XR Chest Exam date and time: 05/12/2025 5:26 AM Age: 84 years old Clinical indication: Other: F/u pneumonia; Additional info: Follow up pneumonia TECHNIQUE: Imaging protocol: Radiologic exam of the chest. Views: 1 view. COMPARISON: CR XR CHEST PORTABLE 05/09/2025 6:02 AM FINDINGS: Lungs: Increasing airspace disease in the right lung base. Stable opacity in the left lung base. Pleural spaces: Unremarkable. No pleural effusion. No pneumothorax. Heart/Mediastinum: Unremarkable. No cardiomegaly. Bones/joints: Unremarkable. IMPRESSION: Increasing airspace disease in the right lung base. Stable opacity in the left lung base.
[2025-05-12 06:49] LABS: Hematocrit 34.9 % (37.0-47.0); Hemoglobin 10.8 g/dL (12.2-16.2); Immature Granulocytes % 5.8 %; Mean Corpuscular HGB Conc 30.9 g/dL (31.8-35.4); Mean Corpuscular Hemoglobin 27.8 pg (27.0-31.2); Mean Corpuscular Volume 89.9 fl (81-99); Nucleated Red Blood Cells % 0 %; Platelet Count 134 K/mm3 (142-424); Red Blood Count 3.88 M/mm3 (4.20-5.40); Red Cell Distribution Width-SD 58.0 fL; White Blood Count 10.7 K/mm3 (4.8-10.8)
[2025-05-12 07:05] LABS: Alanine Aminotransferase 11 U/L (12-78); Albumin Level 3.2 g/dl (3.5-5.0); Albumin/Globulin Ratio 1.1 (1.1-1.8); Alkaline Phosphatase 80 U/L (38-126); Anion Gap 9.2 mEq/L (5-15); Aspartate Amino Transferase 33 U/L (14-36); Bilirubin,Total 0.6 mg/dl (0.2-1.3); Blood Urea Nitrogen 40 mg/dl (7-17); Calcium 9.4 mg/dl (8.4-10.2); Carbon Dioxide 28 mmol/L (22.0-30.0); Chloride 110 mmol/L (98-107); Creatinine Clearance Estimated 35 mL/min (50-200); Creatinine,Serum 1.70 mg/dl (0.52-1.04); Estimated Glomerular Filt Rate 28 ml/min (>60); GFR (African American) 34 ML/MIN (>60); Globulin 2.8 g/dL (1.3-3.2); Glucose 105 mg/dl (74-100); Potassium 4.2 mmoL/L (3.5-5.1); Sodium 143 mmol/L (136-145); Total Protein,Serum 6.0 g/dl (6.3-8.2)
[2025-05-12 07:16] LABS: Total Cells Counted 100
[2025-05-12 07:17] LABS: RBC Morphology Normal
[2025-05-12] MEDS: ESCITALOPRAM 20MG TABLET 20 MG PO (08:08)
[2025-05-12] MEDS: METOPROLOL SUCCINATE XL 50MG TABLET 50 MG PO (08:08)
--- NOTE | 2025-05-12 08:18 | EXP.ACUTE.PN ---
Subjective *Date: 05/12/25 *Time: 13:41 Interval history: Patient is feeling better this am. She is going to try to eat some breakfast. She denies any pain. Medical Exam Vital signs and Labs for Last 24 Hours: Vital Signs Temp Pulse Pulse Resp BP BP Pulse Ox 05/12/25 08:13 05/12/25 06:35 05/12/25 06:08 68 05/12/25 06:08 70 05/12/25 06:08 95 05/12/25 05:00 05/12/25 04:00 98.7 F 57 L 16 147/62 H 95 05/12/25 04:00 70 05/12/25 03:00 05/12/25 01:00 05/12/25 00:02 58 L 05/12/25 00:02 61 05/12/25 00:00 60 05/11/25 23:46 98.6 F 56 L 17 152/71 H 94 L 05/11/25 23:00 05/11/25 21:00 05/11/25 20:00 05/11/25 20:00 70 05/11/25 20:00 98.6 F 67 17 134/63 91 L 05/11/25 20:00 05/11/25 18:57 92 L 05/11/25 18:57 68 05/11/25 18:57 70 05/11/25 18:24 05/11/25 17:00 05/11/25 16:00 97.6 F 72 16 151/77 H 92 L 05/11/25 16:00 60 05/11/25 15:00 05/11/25 13:00 05/11/25 12:48 79 05/11/25 12:48 80 05/11/25 12:26 90 05/11/25 12:00 98.2 F 72 18 167/88 H 95 05/11/25 11:00 05/11/25 10:00 91 H 16 125/85 92 L 05/11/25 09:00 O2 Del Method O2 Flow Rate FiO2 05/12/25 08:13 Nasal Cannula 05/12/25 06:35 Nasal Cannula 2 05/12/25 06:08 05/12/25 06:08 05/12/25 06:08 Nasal Cannula 2 28 05/12/25 05:00 Nasal Cannula 2 05/12/25 04:00 Nasal Cannula 2 05/12/25 04:00 05/12/25 03:00 Nasal Cannula 2 05/12/25 01:00 Nasal Cannula 2 05/12/25 00:02 05/12/25 00:02 05/12/25 00:00 05/11/25 23:46 Nasal Cannula 3 05/11/25 23:00 Nasal Cannula 2 05/11/25 21:00 Nasal Cannula 2 05/11/25 20:00 3 05/11/25 20:00 05/11/25 20:00 Nasal Cannula 05/11/25 20:00 Nasal Cannula 2 05/11/25 18:57 Nasal Cannula 2 05/11/25 18:57 05/11/25 18:57 05/11/25 18:24 Nasal Cannula 05/11/25 17:00 Nasal Cannula 05/11/25 16:00 Nasal Cannula 3 05/11/25 16:00 05/11/25 15:00 Nasal Cannula 05/11/25 13:00 Nasal Cannula 05/11/25 12:48 05/11/25 12:48 05/11/25 12:26 05/11/25 12:00 Nasal Cannula 3 05/11/25 11:00 Nasal Cannula 05/11/25 10:00 Nasal Cannula 3 05/11/25 09:00 Nasal Cannula 3 Intake and Output 05/11/25 05/12/25 05/12/25 19:59 03:59 11:59 Intake Total 320 / 1180 240 / 1180 620 / 1180 Output Total 0 / 700 300 / 700 400 / 700 Balance 320 / 480 -60 / 480 220 / 480 Intake: Intake, Oral Amount 320 / 1180 240 / 1180 620 / 1180 Output: Output, Urine Amount 0 / 700 300 / 700 400 / 700 Other: Number of Voids 0 Number of Unmeasured Voids 1 0 0 Number of Bowel Movements 1 Weight 207 lb 11.2 oz Patient Weight 05/12/25 11:59 Weight 207 lb 11.2 oz Laboratory Results - last 24 hr 05/11/25 11:42: POC Glucose 121 H 05/11/25 19:52: POC Glucose 114 H 05/12/25 05:13: POC Glucose 115 H 05/12/25 06:38: WBC 10.7 D, RBC 3.88 L, Hgb 10.8 L, Hct 34.9 L, MCV 89.9, MCH 27.8, MCHC 30.9 L, RDW 17.8 H, Plt Count 134 L D, MPV 10.0, Neut % (Auto) 75.3, Lymph % (Auto) 9.6 L, [place] % (Auto) 7.5, Eos % (Auto) 1.2, Baso % (Auto) 0.6, Neut # (Auto) 8.1 H, Lymph # (Auto) 1.0, [place] # (Auto) 0.8, Eos # (Auto) 0.1, Baso # (Auto) 0.1, Total Counted 100, Neutrophils % (Manual) 81 H, Lymphocytes % (Manual) 10, Monocytes % (Manual) 8, Eosinophils % (Manual) 1, Platelet Estimate Normal, RBC Morphology Normal, Sodium 143, Potassium 4.2, Chloride 110 H, Carbon Dioxide 28, Anion Gap 9.2, BUN 40 H D, Creatinine 1.70 H, Estimated Creat Clear 35, Estimated GFR 28 L, Est GFR ( Amer) 34 L D, Glucose 105 H, Calcium 9.4, Total Bilirubin 0.6, AST 33, ALT 11 L, Alkaline Phosphatase 80, Total Protein 6.0 L, Albumin 3.2 L, Globulin 2.8, Albumin/Globulin Ratio 1.1 I & O for Labs for Last 24 Hours: Intake & Output 05/09/25 05/10/25 05/11/25 05/12/25 11:59 11:59 11:59 11:59 Intake Total 3622 / 3622 1820 / 1820 2521.25 / 2521.25 1180 / 1180 Output Total 1650 / 1650 1550 / 1550 2150 / 2150 700 / 700 Balance 1971 / 1971 270 / 270 371.25 / 371.25 480 / 480 Weight 203 lb 11.2 oz 205 lb 9.6 oz 207 lb 9.6 oz 207 lb 11.2 oz Constitutional: Present no acute distress Respiratory: Present decreased breath sounds (bases); Absent respiratory distress or wheezes Cardiac: Present Regular Rhythm GI: Present soft; Absent distention or tenderness Neuro: Present alert and awake Assessment and Plan *Assessment and plan (1) Acute on chronic respiratory failure with hypoxia and hypercapnia: Status: Acute Category: Medical Code(s): J96.21 - Acute and chronic respiratory failure with hypoxia; J96.22 - Acute and chronic respiratory failure with hypercapnia (2) Pneumonia: Status: Acute Category: Medical Code(s): J18.9 - Pneumonia, unspecified organism (3) Acute hyperkalemia: Status: Acute Category: Medical Code(s): E87.5 - Hyperkalemia (4) RICHIE (acute kidney injury): Status: Acute Category: Medical Code(s): N17.9 - Acute kidney failure, unspecified (5) Acidosis, metabolic, with respiratory acidosis: Status: Acute Category: Medical Code(s): E87.4 - Mixed disorder of acid-base balance (6) DM type 2 (diabetes mellitus, type 2): Status: Acute Qualifiers: Chronic kidney disease stage: stage 3 (moderate) Chronic kidney disease stage 3 subtype: stage 3b (GFR 30-44) Diabetes mellitus complication detail: with chronic kidney disease Diabetes mellitus 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 insulin 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 Category: Medical Code(s): E11.9 - Type 2 diabetes mellitus without complications (7) Hypertension: Status: Acute Qualifiers: Hypertension type: primary hypertension Qualified Code(s): I10 - Essential (primary) hypertension Category: Medical Code(s): I10 - Essential (primary) hypertension (8) Neuropathy: Status: Acute Category: Medical Code(s): G62.9 - Polyneuropathy, unspecified (9) Depression: Status: Acute Qualifiers: Depression Type: unspecified Qualified Code(s): F32.A - Depression, unspecified Category: Medical Code(s): F32.A - Depression, unspecified (10) GERD (gastroesophageal reflux disease): Status: Acute Qualifiers: Esophagitis presence: esophagitis presence not specified Qualified Code(s): K21.9 - Gastro-esophageal reflux disease without esophagitis Category: Medical Code(s): K21.9 - Gastro-esophageal reflux disease without esophagitis (11) Hyperlipidemia: Status: Acute Qualifiers: Hyperlipidemia type: unspecified Qualified Code(s): E78.5 - Hyperlipidemia, unspecified Category: Medical Code(s): E78.5 - Hyperlipidemia, unspecified (12) Debility: Status: Acute Category: Medical Code(s): R53.81 - Other malaise Plan Patient is improving. Renal function has improved slightly. Will discuss further care with Dr. Juan Diego Adamson entry - Saw patient, agree with above note.
[2025-05-12 13:53] LABS: POC Glucose,Bedside 170 gm/dL (70-110)
--- NOTE | 2025-05-12 16:52 | PC.NURSE ---
PT IS RESTING IN BED. ALERT AND ORIENTED X3. PT TOLERATED SITTING UP IN THE CHAIR FOR SEVERAL HOURS THIS SHIFT. LUNG SOUNDS DIMINISHED. O2 SATURATION HAS MAINTAINED 92-95% ON 3 L NC . ABDOMEN SOFT/NON TENDER WITH ACTIVE BOWEL SOUNDS. 2 BOWEL MOVEMENTS THIS SHIFT. PURWICK IN PLACE. WILL CONTINUE TO MONITOR.
[2025-05-12] MEDS: PRAVASTATIN 40MG TAB 40 MG PO (19:59)
[2025-05-12] MEDS: MONTELUKAST SODIUM 10MG TAB 10 MG PO (19:59)
[2025-05-12 20:12] LABS: POC Glucose,Bedside 150 gm/dL (70-110)
[2025-05-12] MEDS: ACETAMINOPHEN 325MG TAB 650 MG PO (23:07)
[2025-05-13] VITALS (7 sets, daily range): BP systolic 125–153; BP diastolic 52–74; PULSE 50–80; RESP 16–18; TEMP 36.6–37.1; O2SAT 90–95; BMI 34.3
[2025-05-13 05:54] LABS: POC Glucose,Bedside 110 gm/dL (70-110)
[2025-05-13] MEDS: IPRATROPIUM/ALBUTEROL 3 ML NEB IH (06:00)
[2025-05-13] MEDS: ESCITALOPRAM 20MG TABLET 20 MG PO (08:06)
[2025-05-13] MEDS: METOPROLOL SUCCINATE XL 50MG TABLET 50 MG PO (08:06)
--- NOTE | 2025-05-13 08:12 | EXP.ACUTE.PN ---
Subjective *Date: 05/13/25 *Time: 09:06 Interval history: Patient is feeling better today. She was up in the chair yesterday and is eating and resting well. She denies any pain. Medical Exam Vital signs and Labs for Last 24 Hours: Vital Signs Temp Pulse Pulse Resp BP Pulse Ox O2 Del Method 05/13/25 07:56 98.1 F 64 17 144/74 H 95 Nasal Cannula 05/13/25 06:45 Nasal Cannula 05/13/25 06:00 59 L 05/13/25 06:00 56 L 05/13/25 06:00 95 Nasal Cannula 05/13/25 05:00 Nasal Cannula 05/13/25 04:00 60 05/13/25 04:00 98.3 F 62 17 125/52 L 92 L Nasal Cannula 05/13/25 03:00 Nasal Cannula 05/13/25 01:00 Nasal Cannula 05/13/25 00:00 80 05/13/25 00:00 98.7 F 66 16 133/52 L 92 L Nasal Cannula 05/12/25 23:13 58 L 05/12/25 23:13 59 L 05/12/25 23:00 Nasal Cannula 05/12/25 21:00 Nasal Cannula 05/12/25 20:00 70 05/12/25 20:00 Nasal Cannula 05/12/25 20:00 98.6 F 72 16 130/75 91 L Nasal Cannula 05/12/25 18:29 Nasal Cannula 05/12/25 18:11 56 L 05/12/25 18:11 57 L 05/12/25 18:11 92 L Nasal Cannula 05/12/25 16:57 Nasal Cannula 05/12/25 16:00 60 05/12/25 15:50 97.2 F L 84 20 128/78 97 Nasal Cannula 05/12/25 15:00 Nasal Cannula 05/12/25 13:00 Nasal Cannula 05/12/25 12:00 50 L 05/12/25 12:00 57 L 16 136/84 91 L Nasal Cannula 05/12/25 11:27 57 L 05/12/25 11:27 56 L 05/12/25 11:00 Nasal Cannula 05/12/25 08:13 Nasal Cannula O2 Flow Rate 05/13/25 07:56 05/13/25 06:45 2 05/13/25 06:00 05/13/25 06:00 05/13/25 06:00 3 05/13/25 05:00 2 05/13/25 04:00 05/13/25 04:00 05/13/25 03:00 2 05/13/25 01:00 2 05/13/25 00:00 05/13/25 00:00 2 05/12/25 23:13 05/12/25 23:13 05/12/25 23:00 2 05/12/25 21:00 2 05/12/25 20:00 05/12/25 20:00 2 05/12/25 20:00 05/12/25 18:29 05/12/25 18:11 05/12/25 18:11 05/12/25 18:11 2.5 05/12/25 16:57 05/12/25 16:00 05/12/25 15:50 3 05/12/25 15:00 05/12/25 13:00 05/12/25 12:00 05/12/25 12:00 05/12/25 11:27 05/12/25 11:27 05/12/25 11:00 05/12/25 08:13 Intake and Output 05/12/25 05/13/25 05/13/25 19:59 03:59 11:59 Intake Total 240 / 480 240 / 480 Output Total 350 / 750 400 / 750 Balance -110 / -270 240 / -270 -400 / -270 Intake: Intake, Oral Amount 240 / 480 240 / 480 Output: Output, Urine Amount 350 / 750 400 / 750 Other: Number of Unmeasured Voids 0 0 Number of Bowel Movements 1 Weight 206 lb Patient Weight 05/13/25 11:59 Weight 206 lb Laboratory Results - last 24 hr 05/12/25 13:46: POC Glucose 170 H 05/12/25 19:58: POC Glucose 150 H 05/13/25 05:42: POC Glucose 110 I & O for Labs for Last 24 Hours: Intake & Output 05/10/25 05/11/25 05/12/25 05/13/25 11:59 11:59 11:59 11:59 Intake Total 1820 / 1820 2521.25 / 2521.25 1180 / 1180 480 / 480 Output Total 1550 / 1550 2150 / 2150 1150 / 1150 750 / 750 Balance 270 / 270 371.25 / 371.25 / 30 -270 / -270 Weight 205 lb 9.6 oz 207 lb 9.6 oz 207 lb 11.2 oz 206 lb Microbiology Reports for the Last 24 Hours: Microbiology 05/08/25 13:56 Blood Blood Culture - Preliminary NO GROWTH AFTER 4 DAYS 05/08/25 13:44 Blood Blood Culture - Preliminary NO GROWTH AFTER 4 DAYS Constitutional: Present no acute distress Respiratory: Present decreased breath sounds (bases); Absent respiratory distress or wheezes Cardiac: Present Regular Rhythm GI: Present soft; Absent distention or tenderness Neuro: Present alert and awake Assessment and Plan *Assessment and plan (1) Acute on chronic respiratory failure with hypoxia and hypercapnia: Status: Acute Category: Medical Code(s): J96.21 - Acute and chronic respiratory failure with hypoxia; J96.22 - Acute and chronic respiratory failure with hypercapnia (2) Pneumonia: Status: Acute Category: Medical Code(s): J18.9 - Pneumonia, unspecified organism (3) Acute hyperkalemia: Status: Acute Category: Medical Code(s): E87.5 - Hyperkalemia (4) RICHIE (acute kidney injury): Status: Acute Category: Medical Code(s): N17.9 - Acute kidney failure, unspecified (5) Acidosis, metabolic, with respiratory acidosis: Status: Acute Category: Medical Code(s): E87.4 - Mixed disorder of acid-base balance (6) DM type 2 (diabetes mellitus, type 2): Status: Acute Qualifiers: Chronic kidney disease stage: stage 3 (moderate) Chronic kidney disease stage 3 subtype: stage 3b (GFR 30-44) Diabetes mellitus complication detail: with chronic kidney disease Diabetes mellitus intermediate insulin use: unspecified terminal 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 insulin 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 status Category: Medical Code(s): E11.9 - Type 2 diabetes mellitus without complications (7) Hypertension: Status: Acute Qualifiers: Hypertension type: primary hypertension Qualified Code(s): I10 - Essential (primary) hypertension Category: Medical Code(s): I10 - Essential (primary) hypertension (8) Neuropathy: Status: Acute Category: Medical Code(s): G62.9 - Polyneuropathy, unspecified (9) Depression: Status: Acute Qualifiers: Depression Type: unspecified Qualified Code(s): F32.A - Depression, unspecified Category: Medical Code(s): F32.A - Depression, unspecified (10) GERD (gastroesophageal reflux disease): Status: Acute Qualifiers: Esophagitis presence: esophagitis presence not specified Qualified Code(s): K21.9 - Gastro-esophageal reflux disease without esophagitis Category: Medical Code(s): K21.9 - Gastro-esophageal reflux disease without esophagitis (11) Hyperlipidemia: Status: Acute Qualifiers: Hyperlipidemia type: unspecified Qualified Code(s): E78.5 - Hyperlipidemia, unspecified Category: Medical Code(s): E78.5 - Hyperlipidemia, unspecified (12) Debility: Status: Acute Category: Medical Code(s): R53.81 - Other malaise Plan Patient is improving. Likely back to [place] soon. Dr. Mullen entry - Saw patient, agree with above note. She continues to improve. Plan discharge back to [place] today into skilled care, will continue oral Levaquin for another week.
--- NOTE | 2025-05-13 09:41 | EXP.DC.SUM ---
General Admission date:: 05/08/25 Discharge date: 05/13/25 HPI HPI HPI: Ms. Nascimento is an 84 year old patient of [facility] that current resides at [facility] in the assisted living facility. The patient has a history of oxygen dependent COPD. The nursing staff called and stated she was difficult to arouse yesterday and was unable to take her medications by mouth due to falling asleep easily. EMS was called and she was brought to [facility] were she was found to be hypoxic and be in respiratory failure. BiPAP treatment was initiated in the ER. She was admitted at [facility] a little over one month ago with a very similar presentation. Patient is unable to provide any historical information today. Hospital Course Hospital Course Hospital Course: The patient was admitted and started on BiPAP. Her labs did improve after BiPAP treatment she was given IV hydration and IV antibiotics. Her potassium normalized and her renal function improved. She was able to work with physical therapy and stand and sit in a chair. She began eating and became more alert and awake. She was stable to be discharged back to [facility] into skilled care. She will need continued therapy and oral Levaquin for 1 more week. Exam Data for Last 24 hours Vital signs and Labs for Last 24 Hours: Temp Pulse Resp BP Pulse Ox O2 Del Method O2 Flow Rate 98.1 F 64 17 144/74 H 95 Nasal Cannula 2 05/13/25 07:56 05/13/25 07:56 05/13/25 07:56 05/13/25 07:56 05/13/25 07:56 05/13/25 07:56 05/13/25 06:45 FiO2 28 05/12/25 06:08 Laboratory Results - last 24 hr 05/12/25 13:46: POC Glucose 170 H 05/12/25 19:58: POC Glucose 150 H 05/13/25 05:42: POC Glucose 110 I & O for Last 24 hours: Intake & Output 05/10/25 05/11/25 05/12/25 05/13/25 11:59 11:59 11:59 11:59 Intake Total 1820 / 1820 2521.25 / 2521.25 1180 / 1180 480 / 480 Output Total 1550 / 1550 2150 / 2150 1150 / 1150 750 / 750 Balance 270 / 270 371.25 / 371.25 30 / 30 -270 / -270 Weight 205 lb 9.6 oz 207 lb 9.6 oz 207 lb 11.2 oz 206 lb Microbiology Reports for the Last 24 Hours: Microbiology 05/08/25 13:56 Blood Blood Culture - Preliminary NO GROWTH AFTER 4 DAYS 05/08/25 13:44 Blood Blood Culture - Preliminary NO GROWTH AFTER 4 DAYS Narrative: Constitutional Comments: Sleeping, will awakens to voice and follow a few commands *Routine HEENT Exam Head: Present normocephalic Eye: Present EOMI and PERRL ENT: Present mucous membranes moist *Routine Neck Exam Neck: Present supple; Absent lymphadenopathy *Routine Respiratory Exam Respiratory: Present CTA bilaterally *Routine Cardiovascular Exam Cardiovascular: Present RRR *Routine Abdominal Exam Abdominal: Present soft and normoactive bowel sounds; Absent tenderness *Routine Rectal Exam Rectal:: deferred *Routine Genitalia Exam Genitalia:: deferred *Routine Extremities Exam Extremities: Absent cyanosis, clubbing or edema *Routine Skin Exam Skin: Present warm; Absent rash *Routine Neurological Exam Comments: Awakens to voice, falls back asleep. Results Data Completed and Pending Labs on day of discharge: Labs from last 24 hours 05/13/25 05/12/25 05/12/25 05:42 19:58 13:46 POC Glucose 110 150 H 170 H Preliminary micro results at discharge 05/08/25 13:56 Blood Culture - Preliminary Blood NO GROWTH AFTER 4 DAYS 05/08/25 13:44 Blood Culture - Preliminary Blood NO GROWTH AFTER 4 DAYS DS: Diagnosis Discharge Diagnosis (1) Acute on chronic respiratory failure with hypoxia and hypercapnia: Status: Acute Code(s): J96.21 - Acute and chronic respiratory failure with hypoxia; J96.22 - Acute and chronic respiratory failure with hypercapnia (2) Pneumonia: Status: Acute Code(s): J18.9 - Pneumonia, unspecified organism (3) Acute hyperkalemia: Status: Acute Code(s): E87.5 - Hyperkalemia (4) RICHIE (acute kidney injury): Status: Acute Code(s): N17.9 - Acute kidney failure, unspecified (5) Acidosis, metabolic, with respiratory acidosis: Status: Acute Code(s): E87.4 - Mixed disorder of acid-base balance (6) DM type 2 (diabetes mellitus, type 2): Status: Acute Code(s): E11.9 - Type 2 diabetes mellitus without complications Qualifiers: Chronic kidney disease stage: stage 3 (moderate) Chronic kidney disease stage 3 subtype: stage 3b (GFR 30-44) Diabetes mellitus complication detail: with chronic kidney disease 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: unspecified skilled nursing insulin use status (7) Hypertension: Status: Acute Code(s): I10 - Essential (primary) hypertension Qualifiers: Hypertension type: primary hypertension Qualified Code(s): I10 - Essential (primary) hypertension (8) Neuropathy: Status: Acute Code(s): G62.9 - Polyneuropathy, unspecified (9) Depression: Status: Acute Code(s): F32.A - Depression, unspecified Qualifiers: Depression Type: unspecified Qualified Code(s): F32.A - Depression, unspecified (10) GERD (gastroesophageal reflux disease): Status: Acute Code(s): K21.9 - Gastro-esophageal reflux disease without esophagitis Qualifiers: Esophagitis presence: esophagitis presence not specified Qualified Code(s): K21.9 - Gastro-esophageal reflux disease without esophagitis (11) Hyperlipidemia: Status: Acute Code(s): E78.5 - Hyperlipidemia, unspecified Qualifiers: Hyperlipidemia type: unspecified Qualified Code(s): E78.5 - Hyperlipidemia, unspecified (12) Debility: Status: Acute Code(s): R53.81 - Other malaise Meds Home Medications and Allergies Home Medications ?Medication ?Instructions ?Recorded ?Confirmed ?Type metformin 500 mg tablet 500 mg PO BIDWMEAL 03/06/18 05/09/25 History simvastatin 20 mg tablet 20 mg PO HS 03/06/18 05/09/25 History escitalopram oxalate 20 mg tablet 20 mg PO DAILY 11/10/23 05/09/25 History fluticasone 250 mcg-salmeterol 50 1 ea inhalation BIDRT 11/10/23 05/09/25 History mcg/dose blistr powdr for inhalation (Ishan Inhub) oxybutynin chloride 10 mg 20 mg PO DAILY 11/10/23 05/09/25 History tablet,extended release 24 hr irbesartan 300 mg tablet 300 mg PO DAILY #30 tabs 02/25/24 05/09/25 Rx esomeprazole magnesium 40 mg 40 mg PO DAILY 05/09/24 05/09/25 History capsule,delayed release metoprolol succinate 50 mg 50 mg PO DAILY 05/09/24 05/09/25 History tablet,extended release 24 hr tizanidine 2 mg tablet 2 mg PO HSP PRN Muscle Pain 05/09/24 05/09/25 History fluticasone propionate 50 2 spray intranasal DAILY 05/12/24 05/09/25 History mcg/actuation nasal spray,suspension calcium carbonate (Calcium 600) 600 mg PO DAILY 07/08/24 05/09/25 History glucosamine sulfate 2KCl 1,000 mg 1,000 mg PO DAILY 07/08/24 05/09/25 History tablet multivitamin 1 tab PO DAILY 07/08/24 05/09/25 History furosemide 40 mg tablet 40 mg PO DAILY 08/08/24 05/09/25 History dapagliflozin propanediol 10 mg 10 mg PO DAILY #30 tabs 08/14/24 05/09/25 Rx tablet (Farxiga) spironolactone 50 mg tablet 50 mg PO DAILY #30 tabs 08/14/24 05/09/25 Rx acetaminophen 500 mg tablet 500 mg PO Q6HP PRN Mild Pain 04/02/25 05/09/25 History (Scale Score 1-4) ipratropium 0.5 mg-albuterol 3 mg 3 ml inhalation Q6HP PRN Shortness 04/02/25 05/09/25 History (2.5 mg base)/3 mL nebulization Of Breath soln lidocaine 4 % topical patch 1 patch topical DAILY 04/02/25 05/09/25 History montelukast 10 mg tablet 10 mg PO PM 04/02/25 05/09/25 History cyanocobalamin (vitamin B-12) 1,000 mcg PO DAILY 05/09/25 05/09/25 History 1,000 mcg tablet famotidine 40 mg tablet 40 mg PO HS 05/09/25 05/09/25 History loperamide 2 mg capsule 2 mg PO BID 05/09/25 05/09/25 History menthol 5 % topical gel (Biofreeze 1 ea topical QIDP PRN Pain 05/09/25 05/09/25 History (menthol)) vit C 250 mg-vit E 90 mg-zinc 40 1 tab PO BID 05/09/25 05/09/25 History mg-copper 1 oc-idakme-ivjdmu capsule (PreserVision AREDS-2) levofloxacin 500 mg tablet 500 mg PO Q48H #4 tabs 05/13/25 Rx pregabalin 75 mg capsule 75 mg PO BID #60 caps 05/13/25 Rx New Prescriptions to Start Prescriptions: levofloxacin Allan Adamson pregabalin Allan Adamson Allergies Allergy/AdvReac Type Severity Reaction Status Date / Time pollen extracts (POLLEN Allergy Intermediate ASTHMA Verified 09/29/24 15:33 EXTRACTS) azithromycin Allergy Redness of Verified 04/01/25 22:47 Skin ceftriaxone (From Rocephin) Allergy Redness of Verified 04/01/25 22:48 Skin Discharge Plan Disposition Patient Disposition: [facility] Condition: Fair Discharge Order Discharge Orders: Discharge Order (Routine); Ordered 05/13/25 Ordered By: Allan Adamson Follow up Plan Follow up with: Allan Adamson MD [Staff Physician, Medical] - Enter time for follow up Referral Note: At [facility] Prescriptions/Medication Reconciliation: New levofloxacin 500 mg Tablet 500 mg PO Q48H Qty: 4 0RF Continued fluticasone propion-salmeterol [Wixela Inhub] 250-50 mcg/dose blister with device 1 ea INHALATION BIDRT oxybutynin chloride 10 mg tablet extended release 24hr 20 mg PO DAILY Patient Comments: TAKE 2 TABLETS BY MOUTH ONCE DAILY escitalopram oxalate 20 mg tablet 20 mg PO DAILY irbesartan 300 mg Tablet 300 mg PO DAILY Qty: 30 0RF calcium carbonate [Calcium 600] 600 mg calcium (1,500 mg) Tablet 600 mg PO DAILY multivitamin Tablet 1 tab PO DAILY glucosamine sulfate 2KCl 1,000 mg Tablet 1,000 mg PO DAILY Rx Instructions: administer with meals ipratropium-albuterol 0.5 mg-3 mg(2.5 mg base)/3 mL Solution For Nebulization 3 ml INHALATION Q6HP PRN (Reason: Shortness Of Breath) lidocaine 4 % Adhesive Patch,Medicated 1 patch TOPICAL DAILY acetaminophen 500 mg Tablet 500 mg PO Q6HP PRN (Reason: Mild Pain (Scale Score 1-4)) montelukast 10 mg tablet 10 mg PO PM loperamide 2 mg Capsule 2 mg PO BID famotidine 40 mg Tablet 40 mg PO HS cyanocobalamin (vitamin B-12) 1,000 mcg Tablet 1,000 mcg PO DAILY Biofreeze (menthol) 5 % Gel 1 ea TOPICAL QIDP PRN (Reason: Pain) PreserVision AREDS-2 250-90-40-1 mg Capsule 1 tab PO BID pregabalin 75 mg Capsule 75 mg PO BID Qty: 60 0RF metformin 500 MG tablet 500 mg PO BIDWMEAL simvastatin 20 tablet 20 mg PO HS metoprolol succinate 50 mg tablet extended release 24 hr 50 mg PO DAILY Patient Comments: TAKE 1 TABLET BY MOUTH ONCE DAILY esomeprazole magnesium 40 mg capsule,delayed release(DR/EC) 40 mg PO DAILY tizanidine 2 mg tablet 2 mg PO HSP PRN (Reason: Muscle Pain) fluticasone propionate 50 mcg/actuation [place],Suspension 2 spray INTRANASAL DAILY Rx Instructions: administer into each nostril furosemide 40 mg Tablet 40 mg PO DAILY spironolactone 50 mg tablet 50 mg PO DAILY Qty: 30 0RF dapagliflozin propanediol [Farxiga] 10 mg tablet 10 mg PO DAILY Qty: 30 0RF Problem Reconciliation Problems Reviewed?: Yes Patient Discharge Instructions ACTIVITY: Continue current activity DIET: continue same diet Additional Instructions: Please check CBC and BMP on 05/18/25 Patient Instructions: DI for Kidney Failure, DI for Pneumonia -- Adult, Stop Light Infection Print Language: Macedonian Providers Primary Care Provider: Provider,Referral Admit Provider: Allan Adamson Attending Provider: Allan Adamson
[2025-05-13 11:39] LABS: POC Glucose,Bedside 138 gm/dL (70-110)
[2025-05-13 15:33] LABS: POC Glucose,Bedside 124 gm/dL (70-110)
== END 2025-05-13 17:22 | DRG 193 ==
LOC: ER 12:29 → ICU 05-09 01:21 → 2ND 05-11 10:03
PROVIDERS: Admitting Provider Family Medicine; Emergency Provider Student in an Organized Health Care Education/Training Program; Visit Provider Family Medicine
DX: J18.9 Pneumonia, unspecified organism (principal); J96.21 Acute and chronic respiratory failure with hypoxia; J96.22 Acute and chronic respiratory failure with hypercapnia; J44.0 Chronic obstructive pulmonary disease with (acute) lower respiratory infection; N17.9 Acute kidney failure, unspecified; E87.4 Mixed disorder of acid-base balance; F32.A Depression, unspecified; K21.9 Gastro-esophageal reflux disease without esophagitis; E78.5 Hyperlipidemia, unspecified; E11.22 Type 2 diabetes mellitus with diabetic chronic kidney disease; I12.9 Hypertensive chronic kidney disease with stage 1 through stage 4 chronic kidney disease, or unspecified chronic kidney disease; N18.32 Chronic kidney disease, stage 3b; E11.42 Type 2 diabetes mellitus with diabetic polyneuropathy; R53.81 Other malaise; E87.5 Hyperkalemia; Z91.09 Other allergy status, other than to drugs and biological substances; Z88.1 Allergy status to other antibiotic agents; Z99.81 Dependence on supplemental oxygen; Z79.84 Long term (current) use of oral hypoglycemic drugs; Z79.899 Other long term (current) drug therapy
CPT/HCPCS: 36415; 70450; 70496; 70498; 71045; 71250; 80053; 80061; 80320; 81001; 82803; 82962; 83735; 84100; 84484; 85007; 85025; 85610; 85730; 87040; 89220; 93005; 94640; 94660; 94761; 97110; 97162; 97166; 97530; 99285; J1956; J2919; J3475; J7030; J7120; Q9967

== ENCOUNTER 2025-06-03 17:19 | Emergency (ER) | payer MEDICARE, BC, SELFPAY ==
[2025-06-03 17:05] VITALS: BP 105/44; PULSE 74; RESP 14; O2SAT 77
[2025-06-03 17:14] VITALS: BP 105/44; PULSE 46; RESP 14; TEMP 36.6; O2SAT 94; BMI 22.1
--- NOTE | 2025-06-03 17:28 | CT_ITS ---
PROCEDURE INFORMATION: Exam: CT Head Without Contrast Exam date and time: 06/03/2025 5:56 PM Age: 84 years old Clinical indication: Injury or trauma; Fall; Blunt trauma (contusions or hematomas) TECHNIQUE: Imaging protocol: Computed tomography of the head without contrast. Radiation optimization: All CT scans at this facility use at least one of these dose optimization techniques: automated exposure control; mA and/or kV adjustment per patient size (includes targeted exams where dose is matched to clinical indication); or iterative reconstruction. COMPARISON: 1. CT ANGIO HEAD 05/08/2025 11:[address] HEAD/BRAIN WO CON 05/08/2025 11:[address] HEAD/BRAIN WO CON 04/01/2025 6:38 PM FINDINGS: Brain: No intracranial hemorrhage. Generalized atrophic changes of the ventricles and subarachnoid spaces. Chronic small-vessel ischemic changes noted. No mass, mass effect or midline shift. Intracranial atherosclerotic changes are noted. Cerebral ventricles: See Brain finding. Paranasal sinuses: Visualized sinuses are unremarkable. No fluid levels. Mastoid air cells: Visualized mastoid air cells are well aerated. Bones: Unremarkable. No acute fracture. Soft tissues: Unremarkable. IMPRESSION: Stable noncontrast CT brain with chronic changes. No acute intracranial abnormality.
--- NOTE | 2025-06-03 17:28 | CT_ITS ---
PROCEDURE INFORMATION: Exam: CT Cervical Spine Without Contrast Exam date and time: 06/03/2025 5:59 PM Age: 84 years old Clinical indication: Injury or trauma; Fall; Concussion/head injury TECHNIQUE: Imaging protocol: Computed tomography of the cervical spine without contrast. Radiation optimization: All CT scans at this facility use at least one of these dose optimization techniques: automated exposure control; mA and/or kV adjustment per patient size (includes targeted exams where dose is matched to clinical indication); or iterative reconstruction. COMPARISON: CT ANGIO NECK 05/08/2025 11:48 AM FINDINGS: Bones: No evident fracture. Degenerative changes of the C-spine most pronounced at C3-C4 through C6-C7. Associated moderate degenerative related central canal narrowing at C4-C5 and C5-C6. Otherwise unremarkable CT of the C-spine. Alignment and vertebral body heights are intact. Lungs: Lung apices are normal. Soft tissues: Unremarkable. IMPRESSION: Degenerative changes. No acute abnormality.
[2025-06-03 17:31] VITALS: BP 122/38; PULSE 46; RESP 16; O2SAT 84
--- NOTE | 2025-06-03 17:31 | CT_ITS ---
PROCEDURE INFORMATION: Exam: CT Thoracic Spine Without Contrast Exam date and time: 06/03/2025 6:07 PM Age: 84 years old Clinical indication: Injury or trauma; Fall; Blunt trauma (contusions or hematomas) TECHNIQUE: Imaging protocol: Computed tomography of the thoracic spine without contrast. Radiation optimization: All CT scans at this facility use at least one of these dose optimization techniques: automated exposure control; mA and/or kV adjustment per patient size (includes targeted exams where dose is matched to clinical indication); or iterative reconstruction. COMPARISON: CT CERVICAL SPINE WO CON 06/03/2025 5:59 PM FINDINGS: Bones/joints: Stable moderate compression T12 vertebra with bony retropulsion producing moderate central canal stenosis. No acute vertebral body compression or fracture. [id number] multilevel degenerative disc changes throughout the thoracic spine. Severe degenerative disc changes and facet arthropathy in the lower cervical spine with grade 1 anterolisthesis of C3 and C7. Mild thoracolumbar scoliosis. Soft tissues: Unremarkable. Vasculature: Dense atherosclerotic calcification throughout the thoracic aorta. No aneurysm. Lungs: Diffuse patchy infiltrate noted throughout the visualized portion of the right mid to lower lung. IMPRESSION: 1. Stable moderate compression of T12 with bony retropulsion producing moderate central canal stenosis. No acute fracture 2. Diffuse patchy infiltrate throughout the right mid to lower lung, slightly improved from previous
--- NOTE | 2025-06-03 17:33 | CT_ITS ---
PROCEDURE INFORMATION: Exam: CT Lumbar Spine Without Contrast Exam date and time: 06/03/2025 6:12 PM Age: 84 years old Clinical indication: Injury or trauma; Fall; Blunt trauma (contusions or hematomas) TECHNIQUE: Imaging protocol: Computed tomography of the lumbar spine without contrast. Radiation optimization: All CT scans at this facility use at least one of these dose optimization techniques: automated exposure control; mA and/or kV adjustment per patient size (includes targeted exams where dose is matched to clinical indication); or iterative reconstruction. COMPARISON: CT THORACIC SPINE WO CON 06/03/2025 6:07 PM FINDINGS: Bones/joints: Moderate levoscoliosis of the lumbar spine. Stable moderate compression of T12 with bony retropulsion producing moderate central canal stenosis. Severe multilevel degenerative disc change and facet arthropathy throughout the lumbar spine. Disc bulge and uncovertebral spurring produces moderate multilevel bilateral neural foramen narrowing. Gallbladder and biliary ducts: Partially calcified gallstone noted in the gallbladder. Vasculature: Dense atherosclerotic calcification throughout the abdominal aorta and iliac arteries. No aneurysm. Soft tissues: Unremarkable. IMPRESSION: 1. Stable moderate compression of T12 with bony retropulsion producing moderate central canal stenosis. No acute fracture 2. Cholelithiasis 3. Significant atherosclerotic changes.
--- NOTE | 2025-06-03 17:41 | ECG_ITS ---
APPROVED REPORT Exam: Resting ECG HR:45 bpm ECG Measurements Heart Rate 45 AXES TX 172 P -89 QRSd 142 QRS 42 QT 439 T 3 QTc 396 Conclusion Sinus bradycardia Normal axis Intraventricular conduction delay Electronically signed by : Patrick Perez, 06/04/2025 00:24:51
[2025-06-03 17:43] LABS: Hematocrit 37.2 % (37.0-47.0); Hemoglobin 11.2 g/dL (12.2-16.2); Immature Granulocytes % 2.7 %; Mean Corpuscular HGB Conc 30.1 g/dL (31.8-35.4); Mean Corpuscular Hemoglobin 28.1 pg (27.0-31.2); Mean Corpuscular Volume 93.2 fl (81-99); Nucleated Red Blood Cells % 0 %; Platelet Count 123 K/mm3 (142-424); Red Blood Count 3.99 M/mm3 (4.20-5.40); Red Cell Distribution Width-SD 60.2 fL; White Blood Count 8.5 K/mm3 (4.8-10.8)
--- NOTE | 2025-06-03 17:50 | [facility].EDGENADL ---
Discharge Plan Disposition Patient Disposition: Xfer Other Condition: Serious Prescriptions Prescriptions: No Action fluticasone propion-salmeterol [Wixela Inhub] 250-50 mcg/dose blister with device 1 ea INHALATION BIDRT oxybutynin chloride 10 mg tablet extended release 24hr 20 mg PO DAILY Patient Comments: TAKE 2 TABLETS BY MOUTH ONCE DAILY escitalopram oxalate 20 mg tablet 20 mg PO DAILY irbesartan 300 mg Tablet 300 mg PO DAILY Qty: 30 0RF calcium carbonate [Calcium 600] 600 mg calcium (1,500 mg) Tablet 600 mg PO DAILY multivitamin Tablet 1 tab PO DAILY glucosamine sulfate 2KCl 1,000 mg Tablet 1,000 mg PO DAILY Rx Instructions: administer with meals ipratropium-albuterol 0.5 mg-3 mg(2.5 mg base)/3 mL Solution For Nebulization 3 ml INHALATION Q6HP PRN (Reason: Shortness Of Breath) lidocaine 4 % Adhesive Patch,Medicated 1 patch TOPICAL DAILY acetaminophen 500 mg Tablet 500 mg PO Q6HP PRN (Reason: Mild Pain (Scale Score 1-4)) montelukast 10 mg tablet 10 mg PO PM loperamide 2 mg Capsule 2 mg PO BID famotidine 40 mg Tablet 40 mg PO HS cyanocobalamin (vitamin B-12) 1,000 mcg Tablet 1,000 mcg PO DAILY Biofreeze (menthol) 5 % Gel 1 ea TOPICAL QIDP PRN (Reason: Pain) PreserVision AREDS-2 250-90-40-1 mg Capsule 1 tab PO BID levofloxacin 500 mg Tablet 500 mg PO Q48H Qty: 4 0RF pregabalin 75 mg Capsule 75 mg PO BID Qty: 60 0RF metformin 500 MG tablet 500 mg PO BIDWMEAL simvastatin 20 tablet 20 mg PO HS metoprolol succinate 50 mg tablet extended release 24 hr 50 mg PO DAILY Patient Comments: TAKE 1 TABLET BY MOUTH ONCE DAILY esomeprazole magnesium 40 mg capsule,delayed release(DR/EC) 40 mg PO DAILY tizanidine 2 mg tablet 2 mg PO HSP PRN (Reason: Muscle Pain) fluticasone propionate 50 mcg/actuation [place],Suspension 2 spray INTRANASAL DAILY Rx Instructions: administer into each nostril furosemide 40 mg Tablet 40 mg PO DAILY spironolactone 50 mg tablet 50 mg PO DAILY Qty: 30 0RF dapagliflozin propanediol [Farxiga] 10 mg tablet 10 mg PO DAILY Qty: 30 0RF Clinical Impressions Clinical Impression: Acute renal failure, Acute hyperkalemia, Fall, Contusion of forehead Stand Alone Forms Stand Alone Forms: Transfer Record - ED Instructions Patient Instructions: DI for Altered Mental Status Print Language Print Language: Romansh Discharge ED Provider: Patrick Perez General Adult HPI <Rosalie Bonner (ED), EGG GATHERER - Last Filed: 06/03/25 21:02> General Chief complaint: Altered Mental Status Stated complaint: Fall Oct , Lethargic Time Seen by Provider: 06/03/25 17:57 Mode of Arrival: EMS Source of Information: Patient and EMS Description of Symptoms (Recalled from ER Triage Doc. by RN): PATIENT PRESENTS TO ED FROM [facility] FOR ALTERED MENTAL STATUS. FACILITY REPORTED TO EMS THAT THEY HAVE WITNESSED A DECLINE OVER THE LAST FEW DAYS AND STATES SHE HAS BEEN TALKING OUT OF HER HEAD TODAY AND NOT MAKING SENSE. ON ED ARRIVAL, PT HAS GCS OF 15. History of Present Illness HPI narrative: 84-year-old female presents from correction for altered mental status. This has been on and off for the last few days. Patient has been saying confusing things to staff over the last few days. Not making any sense. But on arrival to the ED she has been GCS 15. Patient has been falling over the last 6 days in the correction. These have been ground-level falls. EMS brought patient in today. Heart rate is mid to high 40s. Staff at [facility] was concerned about this patient as she has declined since she fell the first time on May 28 after reviewing chart patient has seen normal blood pressure typically 1 teens to 120s. On arrival here it was 105/44. Heart rate typically is in the 60s and 70s on arrival here it was 46. Patient does wear oxygen. Patient denies any shortness of breath but O2 with 94% on 2 L nasal cannula. Patient is able to do exam and tell me partially what is going on with her. Related Data Home Medications ?Medication ?Instructions ?Recorded ?Confirmed metformin 500 mg tablet 500 mg PO BIDWMEAL 03/06/18 05/09/25 simvastatin 20 mg tablet 20 mg PO HS 03/06/18 05/09/25 escitalopram oxalate 20 mg tablet 20 mg PO DAILY 11/10/23 05/09/25 fluticasone 250 mcg-salmeterol 50 1 ea inhalation BIDRT 11/10/23 05/09/25 mcg/dose blistr powdr for inhalation (Ishan Jameson) oxybutynin chloride 10 mg 20 mg PO DAILY 11/10/23 05/09/25 tablet,extended release 24 hr esomeprazole magnesium 40 mg 40 mg PO DAILY 05/09/24 05/09/25 capsule,delayed release metoprolol succinate 50 mg 50 mg PO DAILY 05/09/24 05/09/25 tablet,extended release 24 hr tizanidine 2 mg tablet 2 mg PO HSP PRN Muscle Pain 05/09/24 05/09/25 fluticasone propionate 50 2 spray intranasal DAILY 05/12/24 05/09/25 mcg/actuation nasal spray,suspension calcium carbonate (Calcium 600) 600 mg PO DAILY 07/08/24 05/09/25 glucosamine sulfate 2KCl 1,000 mg 1,000 mg PO DAILY 07/08/24 05/09/25 tablet multivitamin 1 tab PO DAILY 07/08/24 05/09/25 furosemide 40 mg tablet 40 mg PO DAILY 08/08/24 05/09/25 acetaminophen 500 mg tablet 500 mg PO Q6HP PRN Mild Pain 04/02/25 05/09/25 (Scale Score 1-4) ipratropium 0.5 mg-albuterol 3 mg 3 ml inhalation Q6HP PRN Shortness 04/02/25 05/09/25 (2.5 mg base)/3 mL nebulization Of Breath soln lidocaine 4 % topical patch 1 patch topical DAILY 04/02/25 05/09/25 montelukast 10 mg tablet 10 mg PO PM 04/02/25 05/09/25 cyanocobalamin (vitamin B-12) 1,000 mcg PO DAILY 05/09/25 05/09/25 1,000 mcg tablet famotidine 40 mg tablet 40 mg PO HS 05/09/25 05/09/25 loperamide 2 mg capsule 2 mg PO BID 05/09/25 05/09/25 menthol 5 % topical gel (Biofreeze 1 ea topical QIDP PRN Pain 05/09/25 05/09/25 (menthol)) vit C 250 mg-vit E 90 mg-zinc 40 1 tab PO BID 05/09/25 05/09/25 mg-copper 1 [id number] capsule (PreserVision AREDS-2) Previous Rx's ?Medication ?Instructions ?Recorded irbesartan 300 mg tablet 300 mg PO DAILY #30 tabs 02/25/24 dapagliflozin propanediol 10 mg 10 mg PO DAILY #30 tabs 08/14/24 tablet (Farxiga) spironolactone 50 mg tablet 50 mg PO DAILY #30 tabs 08/14/24 levofloxacin 500 mg tablet 500 mg PO Q48H #4 tabs 05/13/25 pregabalin 75 mg capsule 75 mg PO BID #60 caps 05/13/25 Allergies Allergy/AdvReac Type Severity Reaction Status Date / Time pollen extracts (POLLEN Allergy Intermediate ASTHMA Verified 09/29/24 15:33 EXTRACTS) azithromycin Allergy Redness of Verified 04/01/25 22:47 Skin ceftriaxone (From Rocephin) Allergy Redness of Verified 04/01/25 22:48 Skin PFSH <Rosalie Bonner (ED), EGG GATHERER - Last Filed: 06/03/25 21:02> PFS Disclaimer: The information contained in this section may have been updated after the patient was seen, as this information can be updated by other users. Medical History Asthma Fibrosis of lung Decreased diffusion capacity of lung Pulmonary emphysema Chronic respiratory failure with hypoxia Recurrent pneumonia Acute and chronic respiratory failure with hypoxia Lumbar radiculopathy Degenerative disc disease, lumbar Paratracheal lymphadenopathy CAP (community acquired pneumonia) RICHIE (acute kidney injury) Hypertensive urgency Elevated brain natriuretic peptide (BNP) level Hypertensive emergency CKD (chronic kidney disease) stage 3, GFR 30-59 ml/min Pneumonia Allergic rhinitis Colon polyps Hemorrhoids, internal Osteoporosis Herpes zoster Closed left ankle fracture Closed left hip fracture Lumbar spinal stenosis Lumbar compression fracture Ocular melanoma COPD (chronic obstructive pulmonary disease) Mediastinal lymphadenopathy Sleep apnea Hyperlipidemia Neuropathy Depression GERD (gastroesophageal reflux disease) Arthritis Hypertension Diabetes Surgical History History of right knee joint replacement History of left knee replacement History of left hip replacement History of left ankle joint replacement 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 History of arthroplasty of right knee History of appendectomy Family History Heart attack Social History Smoking Status: Former smoker alcohol intake: never substance use type: denies use current occupational status: other Travel in the last 8 weeks?: None household members: none caffeine: Yes Have you lived/traveled outside US in past 30 days?: No Contact w/someone who lives/traveled outside US past 30 days?: No Exposure to someone with infectious disease in past 14 days?: No Do you have a fever (greater than 100.4 F or 38 C)?: No Have you tested positive for COVID-19?: No Exposed to someone with COVID-19 in past 14 days?: No Do you have a sore throat?: No Do you have a cough?: No Do you have any weakness?: No Do you have any diarrhea?: No Are you experiencing any unusual bleeding?: No Do you have any muscle aches/pain?: No Do you have any abdominal pain?: No Are you experiencing loss of taste or smell?: No Other Medical History Have you received the Flu Vaccine for this season: No Have you received the Pneumonia Vaccine: No <Rosalie Bonner (ED), EGG GATHERER - Last Filed: 06/03/25 21:02> ROS Obtained: Yes Systems reviewed as appropriate & no additional complaints except as documented Constitutional Constitutional: Reports as per HPI Physical Exam <Rosalie Bonner (ED), EGG GATHERER - Last Filed: 06/03/25 21:02> General General appearance: alert and in no apparent distress Head Head exam: normocephalic Eye Eye exam: Present PERRL and EOMI ENT ENT exam: Present normal oropharynx and mucous membranes moist Neck Neck exam: Present full ROM and trachea midline Respiratory Respiratory exam: Present wheezes Cardiovascular Cardiovascular exam: Present normal rhythm, bradycardia, normal heart sounds, +S1 and +S2 Abdominal Exam Abdominal exam: Present soft and normal bowel sounds Extremities Exam Extremities exam: Present full ROM Neurological Exam Neurological exam: Present alert and oriented X3 Skin Skin exam: Present warm, dry and other (Bilateral lower extremities were dark in color) Medical Decision Making <Rosalie Bonner (ED), EGG GATHERER - Last Filed: 06/03/25 21:02> Medical Records Screening: Per USPSTF and CDC recommendations, given the prevalence of disease in our region, it is our hospital?s policy to screen for HIV and viral Hepatitis for all patients aged 18 and over and those with ongoing risk factors. Gabriele Inquiry Pt receiving controlled substance: No Gabriele was queried for this patient: No Vital Signs: 06/03/25 17:05 06/03/25 17:14 06/03/25 17:14 Temperature 97.9 F 97.9 F Temperature Source Oral Pulse Rate 74 46 L Pulse Rate [Right] 46 L Respiratory Rate 14 14 14 Blood Pressure 105/44 L 105/44 L Blood Pressure [Right Arm] 105/44 L Blood Pressure Mean [Right Arm] 64 02 Sat by Pulse Oximetry 77 L 94 L 94 L Oxygen Delivery Method Nasal Cannula Nasal Cannula Nasal Cannula Oxygen Flow Rate (LPM) 2 2 2 06/03/25 17:31 Temperature Temperature Source Pulse Rate 46 L Pulse Rate [Right] Respiratory Rate 16 Blood Pressure 122/38 L Blood Pressure [Right Arm] Blood Pressure Mean [Right Arm] 02 Sat by Pulse Oximetry 84 L Oxygen Delivery Method Nasal Cannula Oxygen Flow Rate (LPM) 2 Lab Data Lab Results 06/03/25 16:46: WBC 8.5, RBC 3.99 L, Hgb 11.2 L, Hct 37.2, MCV 93.2, MCH 28.1, MCHC 30.1 L, RDW 17.7 H, Plt Count 123 L, MPV 11.3 H, Neut % (Auto) 67.1, Lymph % (Auto) 18.0, Stephenson % (Auto) 9.8 H, Eos % (Auto) 2.0, Baso % (Auto) 0.4, Neut # (Auto) 5.7, Lymph # (Auto) 1.5, Stephenson # (Auto) 0.8, Eos # (Auto) 0.2, Baso # (Auto) 0.0, D-Dimer 1.12 H, Sodium 140, Potassium 7.2 H*, Chloride 103, Carbon Dioxide 24, Anion Gap 20.2 H, BUN 89 H, Creatinine 6.00 H, Estimated Creat Clear 7, Estimated GFR 7 L*, Est GFR ( Amer) 8 L*, Glucose 115 H, Calcium 9.0, Magnesium 1.5 L, Total Bilirubin 0.8, AST 31, ALT 15, Alkaline Phosphatase 105, Troponin I 0.02 06/03/25 16:46: Troponin I 0.02, NT-Pro-B Natriuret Pep 7970 H, Total Protein 6.7, Albumin 3.7, Globulin 3.0, Albumin/Globulin Ratio 1.2, Lipase 122, Acetone Level None detected 06/03/25 18:32: VBG pH 7.23 L, VBG pCO2 57.4 H, VBG pO2 29.1, VBG HCO3 23.6, VBG Total CO2 25.4, VBG O2 Saturation 50.1, VBG Base Excess -3.9 L, VBG Lactic Acid 3.6 H, Sodium 141, Potassium 7.5 H*, Chloride 103, Carbon Dioxide 25, Anion Gap 20.5 H, BUN 88 H, Creatinine 6.20 H, Estimated Creat Clear 6, Estimated GFR 6 L*, Est GFR ( Amer) 8 L*, Glucose 94, Calcium 9.2 06/03/25 19:53: Urine Color Yellow, Urine Appearance Clear, Urine pH 5.5, Ur Specific Aladdin 1.015, Urine Protein Negative, Urine Glucose (UA) Negative, Urine Ketones Negative, Urine Blood Negative, Urine Nitrate Negative, Urine Bilirubin Negative, Urine Urobilinogen 0.2, Ur Leukocyte Esterase Negative, Urine RBC None, Urine WBC None, Ur Squamous Epith Cells Occasional, Urine Bacteria None, Ur Random Urea Nitrogn 399, Urine Creatinine 58, Urine Sodium 86.0 06/03/25 16:46 06/03/25 18:32 Orders (Tests/Meds): ED MEDICATIONS Generic Name Dose Route Start Last Admin Trade Name Freq PRN Reason Stop Dose Admin Calcium Gluconate/Sodium Chloride 2 gm in 100 mls @ 50 mls/hr 06/03/25 19:16 06/03/25 19:50 Calcium Gluconate 2,000mg/100ml Nacl Premix IV 06/03/25 21:15 50 mls/hr ONCE ONE Administration Levofloxacin/Dextrose 750 mg in 150 mls @ 100 mls/hr 06/03/25 20:00 Levofloxacin 750mg/150ml Premix IV 06/13/25 19:59 Q24H GALA Discontinued Medications Generic Name Dose Route Start Last Admin Trade Name Freq PRN Reason Stop Dose Admin Albuterol/Ipratropium 9 ml 06/03/25 19:16 06/03/25 19:48 Ipratropium/Albuterol 3 Ml Neb IH 06/03/25 19:17 9 ml ONCE ONE Administration Dextrose 50 ml 06/03/25 19:16 06/03/25 19:50 Dextrose 50% 50ml Syringe (Crash Cart) IVP 06/03/25 19:17 50 ml ONCE ONE Administration Lactated Ringer's 1,000 mls @ 999 mls/hr 06/03/25 19:34 Lactated Ringer's 1000 Ml Bag IV 06/03/25 20:34 .Q1H1M ONE Insulin Human Regular 5 unit 06/03/25 19:16 06/03/25 20:01 Insulin Human Regular 100 Units/Ml 10ml Vial IVP 06/03/25 19:17 5 unit ONCE ONE Administration Sodium Zirconium Cyclosilicate 10 gm 06/03/25 19:17 06/03/25 19:50 Lokelma 5gm Packet PO 06/03/25 19:18 10 gm ONCE ONE Administration ORDERS Category Date Time Status CT cervical spine wo con Stat Cat Scan 06/03/25 17:[address] head/brain wo con Stat Cat Scan 06/03/25 17:[address] lumbar spine wo con Stat Cat Scan 06/03/25 17:[address] thoracic spine wo con Stat Cat Scan 06/03/25 17:31 Completed CXR --portable [XR chest portable] Stat Exams 06/03/25 19:19 Completed POCUS Point of Care (ER Only) Stat Exams 06/03/25 19:21 Completed XR pelvis 1-2V Stat Exams 06/03/25 19:19 Completed Acetone, Serum (Rapid) Stat Lab 06/03/25 16:46 Completed BMP [Basic Metabolic Panel] Stat Lab 06/03/25 18:32 Completed BNP [NT Pro Brain Natriuretic Pep.] Stat Lab 06/03/25 16:46 Completed CBC [Complete Blood Count Auto Diff] Stat Lab 06/03/25 16:46 Completed Comprehensive Metabolic Panel Stat Lab 06/03/25 16:46 Completed Creatinine,Urine Random Stat Lab 06/03/25 19:53 Completed D-Dimer Stat Lab 06/03/25 16:46 Completed Lipase Stat Lab 06/03/25 16:46 Completed Magnesium Stat Lab 06/03/25 16:46 Completed Sodium,Urine Random Stat Lab 06/03/25 19:53 Completed Trop I [Troponin I] Stat Lab 06/03/25 16:46 Completed Troponin I Q3H Lab 06/03/25 23:45 Ordered Troponin I Stat Lab 06/03/25 16:46 Completed Urea Nitrogen,Urine Random Stat Lab 06/03/25 19:53 Completed Urinalysis and Microscopic Stat Lab 06/03/25 19:53 Completed Venous Blood Gas Stat RT 06/03/25 18:32 Completed Medical Decision Narrative: patient is a 84-year-old female presenting to the emergency department for evaluation of frequent falls and decline. Patient is hemodynamically stable and nontoxic-appearing upon arrival, afebrile. Differential diagnosis includes cognitive decline, falls, altered mental status among others. Workup will be conducted with hematologic labs, specific imaging. Initial inventions include crystalloid bolus. 845 white count, dimer was 1.12, VBG pH was 7.23, pCO2 was 57.4, lactate was 3.6, potassium 7.5 which we gave meds for hyperkalemia, BUN was 88 and creatinine was 6.2. Patient's GFR was 6. BNP was 7970, blood pressure has been stable since patient has been here. Patient has been treated for hyperkalemia. Patient was then given medication for pneumonia as her chest x-ray showed pneumonia. Her CT imaging was all negative. Patient will be sent to [facility] as [facility] was unable to take patient. Dr. Perez talked to DR Philip MOHR who accepted patient to [facility]. Patient safe for discharge with EMS. <Patrick Perez, DO - Last Filed: 06/03/25 21:12> Medical Records Medical records reviewed: Yes I reviewed the patient's medical records. Vital Signs: 06/03/25 17:05 06/03/25 17:14 06/03/25 17:14 Temperature 97.9 F 97.9 F Temperature Source Oral Pulse Rate 74 46 L Pulse Rate [Right] 46 L Respiratory Rate 14 14 14 Blood Pressure 105/44 L 105/44 L Blood Pressure [Right Arm] 105/44 L Blood Pressure Mean [Right Arm] 64 02 Sat by Pulse Oximetry 77 L 94 L 94 L Oxygen Delivery Method Nasal Cannula Nasal Cannula Nasal Cannula Oxygen Flow Rate (LPM) 2 2 2 06/03/25 17:31 Temperature Temperature Source Pulse Rate 46 L Pulse Rate [Right] Respiratory Rate 16 Blood Pressure 122/38 L Blood Pressure [Right Arm] Blood Pressure Mean [Right Arm] 02 Sat by Pulse Oximetry 84 L Oxygen Delivery Method Nasal Cannula Oxygen Flow Rate (LPM) 2 Lab Data Lab Results 06/03/25 16:46: WBC 8.5, RBC 3.99 L, Hgb 11.2 L, Hct 37.2, MCV 93.2, MCH 28.1, MCHC 30.1 L, RDW 17.7 H, Plt Count 123 L, MPV 11.3 H, Neut % (Auto) 67.1, Lymph % (Auto) 18.0, Stephenson % (Auto) 9.8 H, Eos % (Auto) 2.0, Baso % (Auto) 0.4, Neut # (Auto) 5.7, Lymph # (Auto) 1.5, Stephenson # (Auto) 0.8, Eos # (Auto) 0.2, Baso # (Auto) 0.0, D-Dimer 1.12 H, Sodium 140, Potassium 7.2 H*, Chloride 103, Carbon Dioxide 24, Anion Gap 20.2 H, BUN 89 H, Creatinine 6.00 H, Estimated Creat Clear 7, Estimated GFR 7 L*, Est GFR ( Amer) 8 L*, Glucose 115 H, Calcium 9.0, Magnesium 1.5 L, Total Bilirubin 0.8, AST 31, ALT 15, Alkaline Phosphatase 105, Troponin I 0.02 06/03/25 16:46: Troponin I 0.02, NT-Pro-B Natriuret Pep 7970 H, Total Protein 6.7, Albumin 3.7, Globulin 3.0, Albumin/Globulin Ratio 1.2, Lipase 122, Acetone Level None detected 06/03/25 18:32: VBG pH 7.23 L, VBG pCO2 57.4 H, VBG pO2 29.1, VBG HCO3 23.6, VBG Total CO2 25.4, VBG O2 Saturation 50.1, VBG Base Excess -3.9 L, VBG Lactic Acid 3.6 H, Sodium 141, Potassium 7.5 H*, Chloride 103, Carbon Dioxide 25, Anion Gap 20.5 H, BUN 88 H, Creatinine 6.20 H, Estimated Creat Clear 6, Estimated GFR 6 L*, Est GFR ( Amer) 8 L*, Glucose 94, Calcium 9.2 06/03/25 19:53: Urine Color Yellow, Urine Appearance Clear, Urine pH 5.5, Ur Specific Aladdin 1.015, Urine Protein Negative, Urine Glucose (UA) Negative, Urine Ketones Negative, Urine Blood Negative, Urine Nitrate Negative, Urine Bilirubin Negative, Urine Urobilinogen 0.2, Ur Leukocyte Esterase Negative, Urine RBC None, Urine WBC None, Ur Squamous Epith Cells Occasional, Urine Bacteria None, Ur Random Urea Nitrogn 399, Urine Creatinine 58, Urine Sodium 86.0 Orders (Tests/Meds): ED MEDICATIONS Generic Name Dose Route Start Last Admin Trade Name Freq PRN Reason Stop Dose Admin Calcium Gluconate/Sodium Chloride 2 gm in 100 mls @ 50 mls/hr 06/03/25 19:16 06/03/25 19:50 Calcium Gluconate 2,000mg/100ml Nacl Premix IV 06/03/25 21:15 50 mls/hr ONCE ONE Administration Levofloxacin/Dextrose 750 mg in 150 mls @ 100 mls/hr 06/03/25 20:00 Levofloxacin 750mg/150ml Premix IV 06/13/25 19:59 Q24H GALA Discontinued Medications Generic Name Dose Route Start Last Admin Trade Name Rajesh PRN Reason Stop Dose Admin Albuterol/Ipratropium 9 ml 06/03/25 19:16 06/03/25 19:48 Ipratropium/Albuterol 3 Ml Neb IH 06/03/25 19:17 9 ml ONCE ONE Administration Dextrose 50 ml 06/03/25 19:16 06/03/25 19:50 Dextrose 50% 50ml Syringe (Crash Cart) IVP 06/03/25 19:17 50 ml ONCE ONE Administration Lactated Ringer's 1,000 mls @ 999 mls/hr 06/03/25 19:34 Lactated Ringer's 1000 Ml Bag IV 06/03/25 20:34 .Q1H1M ONE Insulin Human Regular 5 unit 06/03/25 19:16 06/03/25 20:01 Insulin Human Regular 100 Units/Ml 10ml Vial IVP 06/03/25 19:17 5 unit ONCE ONE Administration Sodium Zirconium Cyclosilicate 10 gm 06/03/25 19:17 06/03/25 19:50 Lokelma 5gm Packet PO 06/03/25 19:18 10 gm ONCE ONE Administration ORDERS Category Date Time Status CT cervical spine wo con Stat Cat Scan 06/03/25 17:[address] head/brain wo con Stat Cat Scan 06/03/25 17:[address] lumbar spine wo con Stat Cat Scan 06/03/25 17:[address] thoracic spine wo con Stat Cat Scan 06/03/25 17:31 Completed CXR --portable [XR chest portable] Stat Exams 06/03/25 19:19 Completed POCUS Point of Care (ER Only) Stat Exams 06/03/25 19:21 Completed XR pelvis 1-2V Stat Exams 06/03/25 19:19 Completed Acetone, Serum (Rapid) Stat Lab 06/03/25 16:46 Completed BMP [Basic Metabolic Panel] Stat Lab 06/03/25 18:32 Completed BNP [NT Pro Brain Natriuretic Pep.] Stat Lab 06/03/25 16:46 Completed CBC [Complete Blood Count Auto Diff] Stat Lab 06/03/25 16:46 Completed Comprehensive Metabolic Panel Stat Lab 06/03/25 16:46 Completed Creatinine,Urine Random Stat Lab 06/03/25 19:53 Completed D-Dimer Stat Lab 06/03/25 16:46 Completed Lipase Stat Lab 06/03/25 16:46 Completed Magnesium Stat Lab 06/03/25 16:46 Completed Sodium,Urine Random Stat Lab 06/03/25 19:53 Completed Trop I [Troponin I] Stat Lab 06/03/25 16:46 Completed Troponin I Q3H Lab 06/03/25 23:45 Ordered Troponin I Stat Lab 06/03/25 16:46 Completed Urea Nitrogen,Urine Random Stat Lab 06/03/25 19:53 Completed Urinalysis and Microscopic Stat Lab 06/03/25 19:53 Completed Venous Blood Gas Stat RT 06/03/25 18:32 Completed Medical Decision Narrative: patient is a 84-year-old female presenting to the emergency department for evaluation of frequent falls and decline. Patient is hemodynamically stable and nontoxic-appearing upon arrival, afebrile. Differential diagnosis includes cognitive decline, falls, altered mental status among others. Workup will be conducted with hematologic labs, specific imaging. Initial inventions include crystalloid bolus. 845 white count, dimer was 1.12, VBG pH was 7.23, pCO2 was 57.4, lactate was 3.6, potassium 7.5 which we gave meds for hyperkalemia, BUN was 88 and creatinine was 6.2. Patient's GFR was 6. BNP was 7970, blood pressure has been stable since patient has been here. Patient has been treated for hyperkalemia. Patient was then given medication for pneumonia as her chest x-ray showed pneumonia. Her CT imaging was all negative. Patient will be sent to [facility] as [facility] was unable to take patient. Dr. Perez talked to DR Philip MOHR who accepted patient to [facility]. Patient safe for discharge with EMS. Attending attestation This is Dr. Perez. I independently evaluated this patient and obtained collateral history. I do agree with BARBIE assessment and plan above. 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 She was brought in with obvious anterior frontal trauma to the head. On physical examination she had an obvious hematoma along the forehead with no other scalp lacerations, hematomas, or abrasions. She did have tenderness along the thoracic spine. Otherwise, she had no other facial trauma, C and L-spine are nontender, pelvis is stable and she has no anterior chest wall or anterior abdominal wall tenderness. She is requiring 2 L of oxygen to maintain saturations on room air. We proceeded with a screening chest x-ray and screening pelvis x-ray. X-ray of the pelvis was personally interpreted by me and demonstrates no acute bony fracture or malalignment. Chest x-ray was personally interpreted by me and demonstrates a right lower lung field infiltrate. Official radiology read is in agreement and states that this could be compatible with pneumonia. Therefore we treated the patient with 750 mg of Levaquin given that she is allergic to ceftriaxone and azithromycin We then proceeded with CT scans of the head and axial spine. There is no acute intracranial hemorrhages on my interpretation of the scan. Official neurology read is in agreement. CT scans of the spines were interpreted by radiology and demonstrate no acute findings with a stable moderate compression fracture of T12 with bony retropulsion producing moderate central canal stenosis with no acute fracture. We did obtain labs on the patient while she was in the emergency department. These labs were personally interpreted by me and demonstrated a significant elevation of her creatinine to 6.2, her last creatinine on file seems to be around a baseline of 1.4. She has marked hyperkalemia with a potassium of 7.5. Her GFR is 6. BUN is 88. Based on these findings I interviewed the patient again and she told me that she has not been drinking well over the last several days and she feels dehydrated. Her mucous membranes are dry and cru I felt that this could be a prerenal RICHIE with acute renal failure and possible acute tubular necrosis. Sting. She has fissures in her tongue from dry mucous membranes. I then performed a bedside ultrasound and found that her IVC was completely collapsible with respirations. Based on this constellation of findings I felt that her presentation was most consistent with a prerenal RICHIE with acute renal failure and possible acute tubular necrosis. Therefore we administered 1 L of lactated Ringer's to the patient for fluid rehydration. Additionally, we treated the patient with 2 g of calcium gluconate, 10 g of Lokelma, 10 units of insulin with 50 g of dextrose, and albuterol. Patient was closely monitored on telemetry through this time for evidence of cardiac arrhythmia. Additionally we did obtain an EKG that was personally interpreted by me and demonstrated sinus bradycardia at a rate of 45 bpm, borderline first-degree AV block, normal axis, wide QRS this interval with interventricular conduction block, no STEMI. No peaked T waves. We do not have dialysis capabilities at our hospital therefore I do feel this patient necessitates higher level of care at a center that can provide dialysis capabilities if she progresses to necessity for dialysis. Therefore I had an interactive discussion with [facility] in [place]. Dr. Song graciously agreed to accept the patient to an ICU bed at their facility. Patient was transferred in stable condition. Critical Care <Rosalie Bonner (FANI), EGG GATHERER - Last Filed: 06/03/25 21:02> Critical Care Time Critical Care Time: No <Patrick Perez DO - Last Filed: 06/03/25 21:12> Critical Care Time Critical Care Time: Yes Attestation: On 06/03/25, the high probability of a clinically significant, sudden or life threatening deterioration of the following system(s) required my full and direct attention, intervention and personal management. The time I documented below is in addition to time spent performing reported procedures but includes the following listed in this critical care notation. Total Time Total Critical Care Time: 43
[2025-06-03 17:56] LABS: Alanine Aminotransferase 15 U/L (12-78); Albumin Level 3.7 g/dl (3.5-5.0); Albumin/Globulin Ratio 1.2 (1.1-1.8); Alkaline Phosphatase 105 U/L (38-126); Anion Gap 20.2 mEq/L (5-15); Aspartate Amino Transferase 31 U/L (14-36); Bilirubin,Total 0.8 mg/dl (0.2-1.3); Calcium 9.0 mg/dl (8.4-10.2); Carbon Dioxide 24 mmol/L (22.0-30.0); Chloride 103 mmol/L (98-107); Creatinine Clearance Estimated 7 mL/min (50-200); Estimated Glomerular Filt Rate 7 ml/min (>60); GFR (African American) 8 ML/MIN (>60); Globulin 3.0 g/dL (1.3-3.2); Glucose 115 mg/dl (74-100); Lipase 122 U/L (23-300); Magnesium 1.5 mg/dl (1.6-2.3); Sodium 140 mmol/L (136-145); Total Protein,Serum 6.7 g/dl (6.3-8.2)
[2025-06-03 17:57] LABS: Acetone, Serum (Rapid) None Detected (None Detect)
[2025-06-03 18:00] LABS: D-Dimer 1.12 ug/mL (0.0-0.5)
[2025-06-03 18:03] LABS: Potassium 7.2 mmoL/L (3.5-5.1)
[2025-06-03 18:04] LABS: Blood Urea Nitrogen 89 mg/dl (7-17); Creatinine,Serum 6.00 mg/dl (0.52-1.04)
[2025-06-03 18:09] LABS: NT Pro Brain Natriuretic Pep. 7970 pg/mL (0-450); Troponin I 0.02 ng/ml (0.00-0.034)
[2025-06-03 18:16] LABS: Troponin I 0.02 ng/ml (0.00-0.034)
[2025-06-03 18:38] LABS: VBG HCO3 23.6 mmol/L (23-30); VBG PH 7.23 mmol/L (7.31-7.41); VBG PO2 29.1 mmol/L (28-40)
[2025-06-03 18:49] LABS: Lactate Venous 3.6 mmol/L (0.4-2.0); VBG PCO2 57.4 mmol/L (35-51)
[2025-06-03 19:01] LABS: Anion Gap 20.5 mEq/L (5-15); Calcium 9.2 mg/dl (8.4-10.2); Carbon Dioxide 25 mmol/L (22.0-30.0); Chloride 103 mmol/L (98-107); Creatinine Clearance Estimated 6 mL/min (50-200); Estimated Glomerular Filt Rate 6 ml/min (>60); GFR (African American) 8 ML/MIN (>60); Glucose 94 mg/dl (74-100); Sodium 141 mmol/L (136-145)
[2025-06-03 19:13] LABS: Potassium 7.5 mmoL/L (3.5-5.1)
[2025-06-03 19:14] LABS: Blood Urea Nitrogen 88 mg/dl (7-17); Creatinine,Serum 6.20 mg/dl (0.52-1.04)
--- NOTE | 2025-06-03 19:15 | PC.NURSE ---
critical called from MD ananya notified
--- NOTE | 2025-06-03 19:19 | XR_ITS ---
PROCEDURE INFORMATION: Exam: XR Chest Exam date and time: 06/03/2025 7:21 PM Age: 84 years old Clinical indication: Shortness of breath; Additional info: Eval lung grullon TECHNIQUE: Imaging protocol: Radiologic exam of the chest. Views: 1 view. COMPARISON: CR XR CHEST PORTABLE 05/12/2025 5:26 AM FINDINGS: Lungs: Moderate right perihilar airspace disease, most pronounced in the right lower lung. Left lung appears largely clear. Lung volumes are moderately low Pleural spaces: Unremarkable. No pleural effusion. No pneumothorax. Heart/Mediastinum: Unremarkable. No cardiomegaly. Bones/joints: Unremarkable. IMPRESSION: Right perihilar airspace disease suggesting acute pneumonia. This appears slightly worsened from previous.
--- NOTE | 2025-06-03 19:19 | XR_ITS ---
PROCEDURE INFORMATION: Exam: XR Pelvis Exam date and time: 06/03/2025 7:21 PM Age: 84 years old Clinical indication: Injury or trauma; Fall; Blunt trauma (contusions or hematomas); Bilateral; Pelvic region TECHNIQUE: Imaging protocol: Radiologic exam of the pelvis. Views: 1 or 2 view. 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 No evidence of hardware failure or loosening. Severe degenerative disc changes in the lower lumbar spine. No acute fracture. Mild degenerative changes in the pubic symphysis. Soft tissues: Unremarkable. IMPRESSION: No acute abnormality
[2025-06-03] MEDS: IPRATROPIUM/ALBUTEROL 3 ML NEB 9 ML IH (19:48)
[2025-06-03] MEDS: LOKELMA 5GM PACKET 10 GM PO (19:50)
[2025-06-03] MEDS: CALCIUM GLUC IN NACL, ISO-OSM 2 GM/100 ML BAG IV (19:50)
[2025-06-03] MEDS: DEXTROSE 50% 50ML SYRINGE (CRASH CART) 50 ML IVP (19:50)
[2025-06-03 19:59] LABS: Microscopic, Urine URINE MICROSCOPIC (MICROSCOPIC)
--- NOTE | 2025-06-03 19:59 | PC.NURSE ---
Attempted to call [facility] for a transfer to [place] multiple times. Called [facility] to see if they could connect me said they would call back if they could reach them.
[2025-06-03] MEDS: INSULIN HUMAN REGULAR 100 UNITS/ML 10ML VIAL 5 UNIT IVP (20:01)
[2025-06-03 20:16] LABS: Bilirubin,Urine Negative (Negative); Color,Urine YELLOW (Yellow); Glucose,Urine (UA) Negative (Negative); Ketones,Urine Negative (Negative); Leukocyte Esterase,Urine Negative (Negative); PH,Urine 5.5 (5.0-8.5); Protein,Urine Negative (Negative); Specific Gravity, Urine 1.015 (1.005-1.030); Urobilinogen,Urine 0.2 EU/dl (0.2)
[2025-06-03 20:19] LABS: Sodium,Urine Random 86.0 mmol/L (30-90)
--- NOTE | 2025-06-03 20:19 | PC.NURSE ---
Called [facility] to transfer a pt. stated they would call back
[2025-06-03 20:51] LABS: Squamous Epithelial Cell,Urine Occasional #/hpf (0-5)
[2025-06-03] MEDS: LEVOFLOXACIN/D5W 750 MG/150 ML 750 MG/150 ML PIGGYBACK 100 MG IV (21:10)
[2025-06-03 21:23] VITALS: BP 105/54; PULSE 53; RESP 14; TEMP 36.6; O2SAT 95
== END 2025-06-03 21:46 | disposition other institution (70) ==
PROVIDERS: Nurse Practitioner; Emergency Provider Student in an Organized Health Care Education/Training Program
DX: E87.5 Hyperkalemia (principal); J18.9 Pneumonia, unspecified organism; S00.83XA Contusion of other part of head, initial encounter; R74.02 Elevation of levels of lactic acid dehydrogenase [LDH]; N17.9 Acute kidney failure, unspecified; R00.1 Bradycardia, unspecified; E86.0 Dehydration; R41.82 Altered mental status, unspecified; W19.XXXA Unspecified fall, initial encounter
CPT/HCPCS: 51702; 70450; 71045; 72125; 72128; 72131; 72170; 80048; 80053; 81001; 82009; 82570; 82803; 83690; 83735; 83880; 84484; 84540; 85025; 85378; 93005; 96365; 96366; 96367; 96375; 99285; 99291; J0612; J1956; J7030

== ENCOUNTER 2025-07-01 10:59 | Outpatient (CLI) | payer MEDICARE, BC, SELFPAY ==
--- OUTSIDE RECORDS SUMMARY | 2025-07-01 11:09 | XMS_ITS | Clinical Summary ---
Author Organization [facility] Address [address] [place] [address] Care Team Providers Care Requirements Manager Name Role Phone Allan Adamson MD Primary Care Provider [phone] Allergies No known active allergies Medications lisinopril [...] (two) times a day. Active HYDROcodone-rikki taminophen ([place]) 5-325 MG tablet Active oxybutynin XL (Ditropan-XL) [...] Insurance MEDICARE [facility] Care Teams Requirements Manager Relationship Specialty Start Date End Date Allan Adamson MD [facility] [place] [address] PCP - General 01/06/21
== END 2025-07-01 23:59 | disposition home or self-care (01) ==
LOC: RT 11:00
PROVIDERS: PCP Family Medicine; Visit Provider Physician Assistant
DX: I48.92 Unspecified atrial flutter (principal); I49.1 Atrial premature depolarization; I47.19 Other supraventricular tachycardia; I49.3 Ventricular premature depolarization; I48.0 Paroxysmal atrial fibrillation
CPT/HCPCS: 93270

== ENCOUNTER 2025-07-19 07:17 | Outpatient (CLI) | payer MEDICARE, BC, SELFPAY ==
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
--- OUTSIDE RECORDS SUMMARY | 2025-06-03 21:40 | XMS_ITS | Encounter Summary ---
Author Organization [employer] ([place], [place], [place], [place], [place]) Address [address] [place] [address] Care Team Providers Care Silk Screen Cutter Name Role Phone [facility] Ana RenAGaye Primary Care Provider Allan Adamson MD Primary Care Provider [phone] Reason for Visit * Auth/Cert (Routine) Specialty Diagnoses / Procedures Referred By Mary Anne poe Referred To Contact Diagnoses Acute renal failure (ARF) (HCC) Acute Renal Failure [facility] Coronary Care Unit [address] [place] [address] Phone: tel: fax: [facility] [address] [place] [address] Phone: tel: fax: Referral ID Status Reason Start Date Expiration Date Visits Re quested Visits Authorized [id number] 1 1 Encounter Details Date Type Department Care Team (Late st Contact Info) Description 06/03/2025 10:40 PM EDT - 06/11/2025 5:36 PM EDT Hospital Encounter [facility] 5B Medical Telemetry Unit [address] [place] [address] Sima Mancia MD [address] [facility] [place] [place] [address] Jb Turner MD [address] [address] Charity Steiner MD [address] [address] Acute renal failure, unspecified acute renal failure type (HCC) (Primary Dx) Discharge Disposition: [facility] Facility Social History Tobacco Use Types Packs/Day Years Used Date Smoking Tobacco: Former Cigarettes Q uit: 2015 Smokeless Tobacco: Never Tobacco Cessation:Counseling Given: Not Answered Alcohol Use Standard Drinks/Week Comments Never 0 (1 standard drink = 0.6 oz pur e alcohol) Utilities Answer Date Recorded In the past 12 months, has t he electric, gas, oil, or water company threatened to shut off services in your home? No 06/04/2025 Interpersonal Safety Answer Date Record ed How often does anyone, roe stoner family and friends, physically hurt you? Never 06/04/2025 How often does anyone, roe stoner family and friends, insult or talk down to you? Never 06/04/2025 How often does anyone, roe stoner family and friends, threaten you with harm? Never 06/04/2025 How often does anyone, roe stoner family and friends, scream or curse at you? Never 06/04/2025 Housing Stability Answer Date Recorded What is your living situation today? I have a [facility] place to live 06/04/[address] you li ve. Do you have problems with any of the following? None of the above 06/04/2025 Food Insecurity Answer Date Recorded Within the past 12 months, y ou worried that your food would run out before you got money to buy more. Never true 06/04/2025 Within the past 12 months, t he food you bought just didn't last and you didn't have money to get more. Never true 06/04/2025 Transportation Needs Answer Date Record ed In the past 12 months, has l ack of reliable transportation kept you from medical appointments, meetings, work or from getting things needed for daily living? No 06/04/2025 Financial Resource Strain Answer Date R ecorded How hard is it for you to pa y for the very basics like food, housing, medical care, and heating? Would you say it is: Not hard at all 06/04/2025 Employment Answer Date Recorded Do you want help finding or keeping work or a job? I do not need or want help 06/04/2025 Family and Community Support Answer Rio e Recorded If for any reason you need h elp with day-to-day activities such as bathing, preparing meals, shopping, managing finances, etc., do you get the help you need? I get all the help I need 06/04/2025 Feeling Lonely or Isolated 0 06/04 Educational Attainment Answer Date Artur rded Do you speak a language other than Estonian at [facility]? No 06/04/2025 Do you want help with school or training? For example, starting or completing job training or getting a high school diploma, GED or equivalent. No 06/04/2025 Physical Activity Answer Date Recorded Number of minutes of exercise per week 0 06/04/2025 Self Management Answer Date Recorded Because of a physical, menta l, or emotional condition, do you have serious difficulty concentrating, remembering, or making decisions? (5 years or older) No 06/04/2025 Because of a physical, menta l, or emotional condition, do you have difficulty doing errands alone such as visiting a doctor's office or shopping? (15 years or older) No 06/04/2025 Substance Use Answer Date Recorded How many times in the past y ear have you used prescription drugs for non-medical reasons? Never 06/04/2025 How many times in the past year have you used [place] legal drugs? Never 06/04/2025 Mental Health Answer Date Recorded Calculation of above two rows 0 Comments Unknown Sex and Gender Information Value Date Recorded Sex Assigned at Female 02/20/2022 5:50 PM CDT Legal Sex Female 5:50 PM CDT Gender Identity Female 02/20/2022 5:50 PM CDT Sexual Orientation Not on file documented as of this encounter Last Filed Vital Signs Vital Sign Reading Time Taken Comments Blood Pressure 123/61 06/11/2025 12:10 PM EDT Pulse 53 06/11/2025 12:10 PM EDT Temperature 36.3 C (97.3 F) 06/11/2025 12:00 PM EDT Respiratory Rate 17 06/11/2025 9:40 AM EDT Oxygen Saturation 92% 06/11/2025 12:05 PM EDT Inhaled Oxygen Concentration - - Weight 86.7 kg (191 lb 2.2 oz) 06/04/2025 1:00 A M EDT Height 170.2 cm (5' 7 ) 06/04/2025 1:00 AM EDT Body Mass Index 29.94 06/04/2025 1:00 AM EDT documented in this encounter Discharge Summaries * Charity Steiner MD - 06/11/2025 11:09 AM EDT DISCHARGE SUMMARY Internal Medicine, [facility] Patient Name: Kirstie Nascimento : 1940 Date of Admission: 06/03/2025 Date of Discharge: 06/11/2025 Primary Care Physician: Allan Adamson MD Consultations: Treatment Team: Consulting Physician: Steffen Juan PA-C Consulting Physician: Bridgette Perez MD Consulting Physician: Holger Mishra MD Pulmonology/critical care, nephrology Discharge Diagnoses: RICHIE on CKD stage III Acute on chronic respiratory failure Volume overload Sinus arrhythmia Hypernatremia Dysphagia UTI Acute metabolic encephalopathy Chronic thrombocytopenia Chronic anemia Hypomagnesemia Reason for Admission: Per HPI: 84 YO Female with PMH CKD 3, DM 2, HTN, Asthma, Chronic Respiratory Failure, Arthritis, presented on 06/03 from [facility] after she presented there from nursing facility after a fall and noted to have altered mental status and workup showed acute renal failure. At the [facility] workup showed, Na 140, K+ 7.2, Cr 6.00, CO2 24, UA neg, CT Head showed no acute abnormality, CT C-Spine showed degenerativechanges C3-4, C6-7, central canal narrowing C4-C5, C5-C6, CT T-Spine showed showed stable moderate compression T12, patchy infiltrate R mid to lower lung. Pt was placed on hyperkalemia protocol and was transferred for Nephro evaluation. Hospital Course: Patient was admitted to the ICU. Nephrology followed along. Nephrotoxic medications were stopped. Patient was fluid resuscitated. Her BUN and creatinine have trended down and are stable at time of discharge with a creatinine of 2.4 and eGFR of 19. At this time recommend holding Farxiga, Lasix, metformin until follow-up with retort firer. I recommend stopping irbesartan and spironolactone at this time due to the CKD and hyperkalemia on admission. Pulmonology followed along and help to manage her respiratory failure. She did receive a full course of empiric antibiotics for possible pneumonia including aztreonam and doxycycline. Her oxygen requirements have improved to her baseline. At 1 point it appeared she had an episode of rate controlled atrial fibrillation. No other previousdiagnoses in the chart. Her echo had no significant VHD. After this initial episode she has been insinus rhythm. Most recent EKG was sinus bradycardia and a first-degree AV block. She does have an elevated [id number] score but states this was a one-time episode and she is a fall risk, chose not to initiate any anticoagulation. If however in the future patient does have recurrent A-fib we will need to have more of a discussion about anticoagulation. Heart rate has been in the low 50s and I recommend holding the metoprolol at this time. She had hyponatremia which has resolved. She dysphagia and speech therapy saw her. At time of discharge they recommend a regular solid and thin liquid diet. Her encephalopathy has resolved. Of note she does have chronic anemia and thrombocytopenia. No obvious evidence of blood loss. Follow-up with heme-onc for further workup. No further acute inpatient needs at this time and patient is appropriate for discharge. She will goback to longterm facility. Studies Performed: CT chest 06/05: Bronchopneumonia TTE 06/04: EF 55%, normal diastolic function, no significant VHD KUB 06/08: Nonobstructive bowel gas pattern Procedures Performed: None Discharge Medications: Your medication list PAUSE taking these medications Instructions Comments Quantity Refills Farxiga 10 mg tablet Wait to take this until your doctor or other care provider tells you to start again. Until okayed by retort firer Generic drug: dapagliflozin propanediol Take 1 tablet (10 mg total) by mouth daily. 0 furosemide 40 MG tablet Wait to take this until your doctor or other care provider tells you to start again. Until okayed by retort firer Commonly known as: LASIX Take 1 tablet (40 mg total) by mouth daily. 0 metFORMIN 500 MG tablet Wait to take this until your doctor or other care provider tells you to start again. Until okayed by retort firer Commonly known as: GLUCOPHAGE Take 1 tablet (500 mg total) by mouth 2 (two) times daily with breakfast and dinner Look-alike/Sound-alike medication. 0 metoprolol succinate 25 MG 24 hr tablet Wait to take this until your doctor or other care provider tells you to start again. Wait until cardiology follow up. Only recommend taking if HR>60 Commonly known as: TOPROL-XL What changed: medication strength how much to take Take 0.5 tablets (12.5 mg total) by mouth daily for 30 days. 15 tablet 0 START taking these medications Instructions Comments Quantity Refills amLODIPine 5 MG tablet Commonly known as: NORVASC Take 1 tablet (5 mg total) by mouth daily for 30 days. 30 tablet 0 CHANGE how you take these medications Instructions Comments Quantity Refills famotidine 20 MG tablet Commonly known as: PEPCID What changed: how much to take when to take this Take 1 tablet (20 mg total) by mouth daily. 0 CONTINUE taking these medications Instructions Comments Quantity Refills acetaminophen 500 MG tablet Commonly known as: TYLENOL Take 1 tablet (500 mg total) by mouth every 6 (six) hours as needed for pain. 0 Biofreeze (menthol) 5 % Gel Generic drug: menthol Apply 1 Application topically 4 (four) times daily as needed (Pain). 0 calcium carbonate 600 mg calcium (1,500 mg) Commonly known as: OS-ERASMO Take 600 mg by mouth daily. 0 CeraVe Daily Moisturizing Lotn Generic drug: ceramides 1,3,6-II Apply 1 Application topically daily. 0 CertaVite Senior 0.4 mg-300 mcg- 250 mcg Tab tablet Generic drug: wfwrdsft-fue-BX-lycopen-lutein Take 1 tablet by mouth daily. 0 cyanocobalamin 1000 MCG tablet Take 1 tablet (1,000 mcg total) by mouth daily. 0 escitalopram 20 MG tablet Commonly known as: LEXAPRO Take 1 tablet (20 mg total) by mouth daily. 0 esomeprazole 40 MG capsule Commonly known as: NexIUM Take 1 capsule (40 mg total) by mouth Daily (0600). 0 fluticasone propion-salmeteroL 250-50 mcg/dose diskus inhaler Commonly known as: ADVAIR Inhale 1 puff by mouth 2 (two) times daily. 0 fluticasone propionate 50 mcg/actuation nasal spray Commonly known as: FLONASE Administer 2 sprays into each nostril daily. 0 Glucosamine 500 mg Tab Generic drug: glucosamine sulfate Take 1,000 mg by mouth daily. 0 ipratropium-albuteroL 0.5 mg-3 mg(2.5 mg base)/3 mL nebulizer solution Commonly known as: DUO-NEB Inhale 3 mLs by nebulization every 6 (six) hours as needed for wheezing. 0 lidocaine 4 % patch Commonly known as: LIDODERM Place 1 patch on the skin daily. 0 loperamide 2 mg capsule Commonly known as: IMODIUM Take 1 capsule (2 mg total) by mouth 4 (four) times daily as needed for diarrhea. 0 montelukast 10 mg tablet Commonly known as: SINGULAIR Take 1 tablet (10 mg total) by mouth nightly. 0 oxybutynin 10 MG 24 hr tablet Commonly known as: DITROPAN-XL Take 2 tablets (20 mg total) by mouth nightly. 0 pregabalin 75 MG capsule Commonly known as: LYRICA Take 1 capsule (75 mg total) by mouth 2 (two) times daily for 3 days. Max Daily Amount: 150 mg 6 capsule 0 simvastatin 20 MG tablet Commonly known as: ZOCOR Take 1 tablet (20 mg total) by mouth nightly. 0 STOP taking these medications irbesartan 300 MG tablet Commonly known as: AVAPRO spironolactone 50 MG tablet Commonly known as: ALDACTONE TiZANidine 2 MG capsule Commonly known as: ZANAFLEX Where to Get Your Medications These medications were sent to [facility] [address], [facility] [address] amLODIPine 5 MG tablet metoprolol succinate 25 MG 24 hr tablet pregabalin 75 MG capsule Information about where to get these medications is not yet available Ask your nurse or doctor about these medications famotidine 20 MG tablet Physical Exam Constitutional: Appearance: Normal appearance. HENT: Head: Normocephalic. Eyes: Conjunctiva/sclera: Conjunctivae normal. Cardiovascular: Rate and Rhythm: Normal rate and regular rhythm. Heart sounds: No murmur heard. Pulmonary: Effort: No respiratory distress. Breath sounds: Normal breath sounds. No wheezing. Abdominal: General: Bowel sounds are normal. Palpations: Abdomen is soft. Tenderness: There is no abdominal tenderness. Musculoskeletal: General: No swelling or deformity. Skin: General: Skin is warm and dry. Findings: No lesion or rash. Neurological: General: No focal deficit present. Mental Status: She is alert and oriented to person, place, and time. Psychiatric: Mood and Affect: Mood normal. Behavior: Behavior normal. Discharge Instructions Discharge Diet: Regular Discharge Activity: No restrictions Discharge Follow UP: Contact information for follow-up [facility] Specialty: [facility] Facility [address] [place] [address] Next Steps: Follow up Allan Adamson MD Specialty: Family Medicine Relationship: PCP - General [address] [place] [address] [address] [facility] [address] Next Steps: Go in 1 week(s) Instructions: PCP follow up 06/18/25 @11:00am Please discuss Hematology and Nephrology referrals Nicholas Sandy MD Specialty: Nephrology [place] [phone] Next Steps: Follow up in 1 week(s) Instructions: [place] office? [facility] [address] [place] [address] #[phone] You will need a referral prior to scheduling an appointment. Please discuss this with your PCP at your appointment. Ap Kennedy MD Specialty: Hematology and Oncology [address] [place] [address] Next Steps: Follow up in 2 week(s) Instructions: Hemaology follow up for thromboyctopenia You will need a referral prior to scheduling an appointment. Please discuss this with your PCP at your appointment. Lin Fournier MD Specialty: Cardiology [facility] [address] [address] Next Steps: Go in 2 week(s) Instructions: Cardiology follow up 06/28/25 @10:45am with FELICITA Chappell at the [place] office Current Code Status Full Code Time Spent: I have spent 36 minutes discharging this patient including time spent discussing with nursing and case management, as well as time spent educating patient on diagnoses and medication changes. Electronically signed by Charity Steiner MD 06/11/25 11:09 AM EDT documented in this encounter Discharge Instructions * Attachments The following attachments cannot be sent through Care Everywhere. * Acute Kidney Injury Adult (Estonian) documented in this encounter Medications at Time of Discharge calcium carbonate (OS-ERASMO) 600 mg calcium (1,500 mg) Take 600 mg by mouth daily. cyanocobalamin 1000 MCG tablet Take 1 tablet (1,000 mcg total) by mouth daily. dapagliflozin propanediol (Farxiga) 10 mg tablet Take 1 tablet (10 mg total) by mouth daily. escitalopram (LEXAPRO) 20 MG tablet Take 1 tablet (20 mg total) by mouth daily. esomeprazole (NexIUM) 40 MG capsule Take 1 capsule (40 mg total) by mouth Daily (0600). fluticasone propion-salmetero L (ADVAIR) 250-50 mcg/dose diskus inhaler Inhale 1 puff by mouth 2 (two) times daily. furosemide (LASIX) 40 MG tablet Take 1 tablet (40 mg total) by mouth daily. ipratropium-albut Marsha (DUO-NEB) 0.5 mg-3 mg(2.5 mg base)/3 mL nebulizer solution Inhale 3 mLs by nebulization every 6 (six) hours as needed for wheezing. loperamide (IMODIUM) 2 mg capsule Take 1 capsule (2 mg total) by mouth 4 (four) times daily as needed for diarrhea. metFORMIN (GLUCOPHAGE) 500 MG tablet Take 1 tablet (500 mg total) by mouth 2 (two) times daily with breakfast and dinner Look-alike/Soun d-alike medication. montelukast (SINGULAIR) 10 mg tablet Take 1 tablet (10 mg total) by mouth nightly. simvastatin (ZOCOR) 20 MG tablet Take 1 tablet (20 mg total) by mouth nightly. acetaminophen (TYLENOL) 500 MG tablet Take 1 tablet (500 mg total) by mouth every 6 (six) hours as needed for pain. ceramides 1,3,6-II (CeraVe Daily Moisturizing) lotn Apply 1 Application topically daily. famotidine (PEPCID) 20 MG tablet Take 1 tablet (20 mg total) by mouth daily. 06/11/2025 fluticasone propionate (FLONASE) 50 mcg/actuation nasal spray Administer 2 sprays into each nostril daily. glucosamine sulfate (Glucosamine) 500 mg tab Take 1,000 mg by mouth daily. lidocaine (LIDODERM) 4 % patch Place 1 patch on the skin daily. menthol (Biofreeze, menthol,) 5 % gel Apply 1 Application topically 4 (four) times daily as needed (Pain). [id number] ycopen-lutein (CertaVite Senior) 0.4 mg-300 mcg- 250 mcg tab tablet Take 1 tablet by mouth daily. oxybutynin (DITROPAN-XL) 10 MG 24 hr tablet Take 2 tablets (20 mg total) by mouth nightly. amLODIPine (NORVASC) 5 MG tablet Take 1 tablet (5 mg total) by mouth daily for 30 days. 30 tablet 06/11/2025 5 metoprolol succinate (TOPROL-XL) 25 MG 24 hr tablet Take 0.5 tablets (12.5 mg total) by mouth daily for 30 days. 15 tablet 06/11/2025 5 pregabalin (LYRICA) 75 MG capsule Take 1 capsule (75 mg total) by mouth 2 (two) times daily for 3 days. Max Daily Amount: 150 mg 6 capsule 06/11/2025 5 documented as of this encounter Progress Notes * Aleshia Gallegos MD - 06/11/2025 5:36 PM EDT Images from the original note were not included. Pulm/CC Date of consultation: 06/03/2025 Reason for consultation: ICU admission, renal failure Chief complaint: Weakness History of present illness: Patient is an 84-year-old female who presented to an outlying facility from the longterm for altered mental status. Patient has a past medical history including type 2 diabetes mellitus, chronic hypoxemic respiratory failure, chronic kidney disease, BRIDGETTE, hyperlipidemia, depression, GERD. Her mental status has deteriorated over the past couple of days with on and off confusion. Per report she has had multiple ground-level falls without trauma. In the emergency department her blood pressure was 105/44 with a heart rate in the 60s. She does have chronic respiratory failure and typically wears 2 L O2. Her initial laboratory data revealed sodium 140, potassium 7.2, serum CO2 24, serum creatin ine 6.00, glucose 115, WBC 8.5. Patient had a CT scan of the head that revealed no acute abnormalities. CT scan revealed diffuse patchy infiltrate noted throughout the right mid and lower lung. Patient was transferred to [facility] and admitted to the ICU. Pulmonary/critical care consulted for ICU admission. At time of evaluation, patient is awake, answering most questions appropriately. On 2 L O2 with adequate saturation. Hemodynamically stable not requiring vasopressors. No family present at bedside. She denies nausea, vomiting, diarrhea. No chest pain. 06/04 seen examined today, encephalopathic, confused, awake but not oriented, hypoxic 8 L nasal cannula bicarb drip, Azactam/Doxy, chest x-ray right lung infiltrate. Pneumonia panel pending, magnesium replaced, creatinine 5.35, urine output 300 cc. Nephrology following, ultrasound kidney pending 06/05: Seen and examined, awake, follow commands, 5 L nasal cannula, hemodynamically stable, afebrile, Azactam/Doxy. Creatinine trending down 4.7, UOP 1200 cc last 24 hours, 750 cc overnight, nephrology following p.o. diet Discontinue bicarb drip CAT scan of the chest pending 06/06: Seen and examined, remains encephalopathic, but awake follow some commands, alert, not oriented, on nasal cannula 6 L, CAT scan of the chest shows bilateral lower lobe pneumonia patient doxycycline/Azactam, dysphagia: PEG tube feeding, nephrology following. Creatinine 4.16. Patient making urine, urine repeat 2 L, magnesium 1.8. Placement, potassium 4.2. Close monitoring in the ICU 06/07 Patient was seen and evaluated this morning. She is alert and oriented. On 6 L. No issues overnight. Intake to 60, output 1550, -1300. No fever. Sodium up to 147. Free water flushes increased to 30 cc/h. Potassium of 4. Bicarb of 32. Creatinine down to 3.6. Mag 1.7 on replacement. Chest x-ray showing right lung infiltration. On Corpak and tube feeding. 06/08 Patient was seen and evaluated this morning. She was questionable aspiration yesterday but her oxygenation is improving and this morning was on 3 L nasal cannula. Corpak for now. She failed swallow eval this morning. Discussed with RN to place another Corpak and start free water flushes. Sodium up to 152 overnight started on D5. Will repeat BMP at 2:00 and if sodium is improving then we will keepfree water flushes and DC fluid. She still confused. Intake 400, output 700, -300. No family at bedside. 06/09 Patient was seen and evaluated this morning. No issues overnight. She is more alert and oriented this morning. She is answering most of my questions. On 4 L nasal cannula. No fever. Intake 500, output 1200, -700. Sodium down to 147. Creatinine down to 2.5. On free water flushes and D5 quarter per nephrology. Doxycycline discontinued. On Azactam. 06/10: Patient seen and examined at bedside. Alert and oriented. Hemodynamically stable. On supplemental oxygen nasal cannula at 4 L/min and saturating at goal. Remains on IV antibiotics with Azactam. Labs and imaging reviewed. Tolerating oral diet. Normal white count with stable H&H and thrombocytopenia. Electrolytes within normal range. BUN/creatinine stable. Chest x-ray with improving bilateral perihilar opacities. Small pleural effusion stable. 06/11: Patient seen and examined at bedside. Alert and follows commands. On supplemental oxygen via nasal cannula at 4 L/min and saturating around 96%. Hemodynamically stable. Labs and imaging reviewed. On Azactam for aspiration pneumonia. Chest x-ray with improving bibasilar and perihilar opacities. Stable H&H and BUN/creatinine. Electrolytes within normal range. Glycemic control at goal. Very weakand frail and debilitated. Labs and imaging reviewed independently. PAST MEDICAL HISTORY: Past Medical History: Diagnosis Date Asthma Chronic kidney disease Emphysema lung (HCC) History of degenerative disc disease Hypertension Lumbar radiculopathy PAST SURGICAL HISTORY: Allergies: Allergies Allergen Reactions Azithromycin Ceftriaxone Pollen Extracts SOCIAL HISTORY: Social History Tobacco Use Smoking status: Former Current packs/day: 0.00 Types: Cigarettes Quit date: 2014 Years since quittin.8 Smokeless tobacco: Never Substance Use Topics Alcohol use: Never Drug use: Never FAMILY HISTORY: Family history is unknown by patient. ROS Constitutional: No fever, no weight changes HEENT: No headaches, no vision changes Cardiac: No chest pain, no palpitations, no orthopnea Pulmonary: No SOB, no TOLLIVER, no cough GI: No nausea, no vomiting, no abdominal pain, no melena, no constipation, no diarrhea : No dysuria, no hematuria, no flank pain MSK: No muscle cramping, + muscle weakness Neuro: No paresthesias, no focal deficits Skin: No rashes, no skin lesions Psych: No depression, no anxiety Vital Signs Current: Temp: 97.3 ??F (36.3 ??C) Pulse: 53 Resp: 17 BP: 123/61 SpO2: 92 % 24 Hour: No data recorded Intake/Output: No intake/output data recorded. Physical examination: General: Awake and answering questions. Eyes: Pupils equal, round, reactive to light, extraocular movements intact, normal conjunctiva HENT: Normocephalic, atraumatic, Supple, nontender, no carotid bruit Respiratory: Breath sounds equal bilaterally, decreased in the bases, no rhonchi or wheezing Cardiovascular: Normal rhythm, normal rate, currently with controlled rate, S1-S2 Gastrointestinal: Soft, nontender, nondistended, normoactive bowel sounds Integumentary: Warm, intact Genitourinary: Deferred MSK: No deformities, normal range of motion Neurologic: Mostly alert, answering questions. Psychiatric: Cooperative, appropriate mood Vent / O2 Management: LABS No results found for this visit on 06/03/25 (from the past 24 hours). Radiology Radiology Results (last day) No results found for the last 24 hours. Microbiology: Microbiology Results (last 7 days) No results found for the last 168 hours. Echo 06/04/25 Normal sized left ventricle. Mild left ventricular hypertrophy. Visually estimated ejection fraction 55% +/- 5%. Normal left ventricular systolic function with normal systolic strain pattern. Normal left ventricular diastolic function. Normal right ventricular size and function. No hemodynamically significant valvular heart disease. Impression: Neuro: Acute metabolic/uremic encephalopathy, improving Ground level fall Degenerative cervical spine disease T12 compression fracture Pulmonary Acute/chronic hypoxic respiratory failure 4 L nasal cannula Bilateral lower lobe pneumonia Mild pulmonary vascular congestion CXR Former smoker possible COPD Cardiovascular History of hypertension Echo EF 55%, normal LV function, mild LVH Infectious disease Right lung pneumonia possible CAP Renal: Acute hyperkalemia-resolved Acute metabolic acidosis-resolved Acute kidney injury/CKD Hypernatremia Hematology: Chronic anemia Chronic thrombocytopenia Endocrinology Type 2 diabetes mellitus Plan: Neuro: Acute encephalopathy in setting of worsening renal failure, sepsis, pneumonia,. Patient protecting airway on nasal cannula Head CT outside facility: Reported to be negative for acute finding. CT cervical spine degenerative changes with central canal narrowing, moderate compression T12 fracture. Recommend evaluation by neurosurgery. Neuro status is improving and she is more alert and oriented. Pulmonary: Acute on chronic hypoxic respiratory failure. chest x-ray CAT scan bilateral lower lobe infiltrate community-acquired pneumonia possible aspiration Started on Azactam/doxycycline plan to continue 7 days. CAT scan of the chest: Bilateral lower lobe pneumonia Respiratory viral panel: Negative MRSA screen negative Streptococcus pneumonia antigen negative Pulmicort/DuoNebs. Repeated chest x-ray showed improving right lung infiltration. Oxygenation is improving and currently on 4 L nasal cannula Cardiovascular: Hemodynamically stable. Underlying heart failure with EF, proBNP/echo normal EF, mild LVH Infectious: CBC no leukocytosis, Pro-Erasmo elevated, chest imaging suggestive of bilateral pneumonia,IV Azactam , pneumonia workup so far negative, repeat CAT scan of the chest 6 to 8 weeks for resolution of the pneumonia, speech evaluation, rule out aspiration Continue Azactam for total 7 days. S/p doxycycline Renal: RICHIE/CKD, sodium unremarkable, hyperkalemia treated with hyperkalemia cocktail, magnesium replaced Nephrology consulted, ultrasound kidney normal renal ultrasound Mild metabolic acidosis improving. Discontinued bicarb drip Patient making urine. Continue monitoring creatinine trend electrolyte Sodium up to 152. Sodium trended down to 147. Continue with water flushes 50 mL/h. On D5 quarter saline per nephrology. GI/nutrition: Dysphagia, possible aspiration, speech, feeding LFT unremarkable, bilirubin unremarkable, bowel regimen Corpak reinserted and started on tube feeding. She passed swallow eval but she has poor oral intake. Will keep Corpak and tube feeding for now. Hematology: CBC no leukocytosis, H&H stable, thrombocytopenia chronic, mild anemia chronic. Monitor H&H, platelet number Prophylaxis: Subcu heparin/Pepcid Will sign off. * Michelle Shaffer, RAMON - 06/11/2025 3:[address] [facility] NUTRITION ASSESSMENT ADIME Nutrition Assessment The patient is a 84 y.o. female presenting with AMS and s/p fall. Present on Admission: Acute renal failure (ARF) (HCC) Acute resp failure Pna Acute metabolic encephalopathy Nutrition Evaluation Type: Follow Up Reason for Evaluation: MST=2 (2-13# wt loss, decreased intakes) Subjective Comments: 06/10: High f/u. Pt tx to floor, corpak removed. Will d/c TF order. On Renal diet with one intakes recorded at 25%. K WNL. Will adjust diet and add ONS. Noted plan to d/c today. 06/09: RD check on. Pt passed BETTING CLERKS eval, on renal diet. RN reports pt not eating much. Corpak remains in placed, TF running @ 20 ml/hr. Plan to continue to increase to goal as intakes establish. Couldmodify to nocturnal TF prn. 06/08: High f/up. Pt on 3L oxymask. Pulled Corpak overnight. BETTING CLERKS eval this am, recommending continued NPO status. Plan to replace Corpak and resume TF. Orders remain in place. Plan to d/c D5 once TF restarted with 40 ml FW. 06/07: RD check on. Pt remains in ICU, on 6L NC. Corpak placed in duodenum and Nepro started. Running @ 40 ml/hr, goal @ 45 ml/hr. 06/05: Pt remains in ICU, on oxymask. Consult received for TF. Noted per pulmonary- pt with possible aspiration. Corpak placed. KUB pending. Diet still in place, spoke with RN/pulmonary- ok to make pt NPO at this time. 06/04: Screened pt for MST=2. Pt admitted for AMS, s/p falls. Pt passed BETTING CLERKS eval, on soft and bite sized diet. Intakes establishing. Not much wt hx in EMR to determine wt loss. Pt is not appropriate for interview at this time. Will continue to assess for PCM as able. Noted K+ elevated, will add restriction for now. Past Medical/Surgical History: Past Medical History: Diagnosis Date Asthma Chronic kidney disease Emphysema lung (HCC) History of degenerative disc disease Hypertension Lumbar radiculopathy No past surgical history on file. Vitals and Basic Assessment: Vitals: Vitals: 06/11/25 1210 BP: 123/61 Pulse: 53 Resp: Temp: SpO2: Oxygen: 4L NC Julian Scale: Julian Scale Score: 13 Last BM: Last BM Date: 06/10/25 GI Symptoms: WDL Edema: Edema: Right lower extremity, Left lower extremity Skin: ? PU to coccyx per nsg Allergies: Allergies Allergen Reactions Azithromycin Ceftriaxone Pollen Extracts Scheduled Medications: Current Facility-Administered Medications Medication Dose Route Frequency Provider Last Rate Last Admin acetaminophen (TYLENOL) tablet 650 mg 650 mg oral Q6H PRN Sima Mancia MD 650 mg at 06/09/25 2234 amLODIPine (NORVASC) tablet 5 mg 5 mg oral Daily Emhemmid MD Colten 5 mg at 06/10/25 0911 atorvastatin (LIPITOR) tablet 10 mg 10 mg oral Daily Charity Steiner MD 10 mg at 06/11/25 0937 budesonide (PULMICORT) nebulizer suspension 0.5 mg 0.5 mg nebulization 2 times daily Sima Mancia MD 0.5 mg at 06/10/252009 cyanocobalamin tablet 1,000 mcg 1,000 mcg oral Daily Charity Steiner MD 1,000 mcg at 06/11/25 0936 dextrose 50% (D50W) injection 25 g 25 g intravenous Q15 Min PRN Charity Steiner MD escitalopram (LEXAPRO) tablet 20 mg 20 mg oral Daily Charity Steiner MD 20 mg at 06/11/25 0937 famotidine (PEPCID) tablet 20 mg 20 mg oral Daily Sima Mancia MD 20 mg at 06/11/25 0936 glucagon injection 1 mg 1 mg intraMUSCULAR Q15 Min PRN Charity Steiner MD glucose chew tab 16 g 16 g oral Q15 Min PRN Charity Steiner MD heparin injection 5,000 Units 5,000 Units subcutaneous Q8H Octavio Odell MD 5,000 Units at 06/11/25 1331 hydrALAZINE (APRESOLINE) injection 10 mg 10 mg intravenous Q6H PRN Sima Mancia MD 10 mg at 06/07/25 2121 insulin lispro (HUMALOG, ADMELOG) injection 0-6 Units 0-6 Units subcutaneous 4x Daily AC Charity Steiner MD ipratropium-albuteroL (DUO-NEB) 0.5 mg-3 mg(2.5 mg base)/3 mL nebulizer solution 3 mL 3 mL nebulization 2 times daily Sima Mancia MD 3 mL at 06/10/252009 montelukast (SINGULAIR) tablet 10 mg 10 mg oral Every Night Charity Steiner MD 10 mg at 06/10/252055 multivitamin (THERAGRAN) tablet 1 tablet 1 tablet oral Daily Charity Steiner MD 1 tablet at 06/11/25 0936 ondansetron (ZOFRAN) injection 4 mg 4 mg intravenous Q6H PRN Sima Mancia MD oxybutynin (DITROPAN) tablet 20 mg 20 mg oral Daily Charity Steiner MD 20 mg at 06/11/25 0936 polyethylene glycol (GLYCOLAX) packet 17 g 17 g oral Daily PRN Sima Mancia MD polyethylene glycol (GLYCOLAX) packet 17 g 17 g oral Daily Octavio Odell MD 17 g at 06/07/25 0842 pregabalin (LYRICA) capsule 75 mg 75 mg oral BID Charity Steiner MD 75 mg at 06/11/25 0937 Saccharomyces boulardii (FLORASTOR) capsule 250 mg 250 mg oral BID Sima Mancia MD 250 mg at 06/11/25 0936 sennosides-docusate sodium (SENOKOT S) 8.6-50 mg tablet 1 tablet 1 tablet oral BID PRN Sima Mancia MD sodium polystyrene sulf-sorbtL 15-20 gram/60 mL suspension 60 g 60 g oral Once Holger Mishra MD Drips: none Recent Labs 06/09/25 0724 06/09/25 1143 06/10/25 0343 06/10/25 0605 06/10/25 1108 06/10/25 1536 06/11/25 0435 06/11/25 0521 06/11/25 1103 NA 147* -- 143 -- -- -- 142 -- -- K 3.4 -- 3.7 -- 3.9 -- 4.2 -- -- CO2 35* -- 32* -- -- -- 28 -- -- BUN 57.1* -- 57.3* -- -- -- 54.3* -- -- CREATININE 2.50* -- 2.47* -- -- -- 2.40* -- -- GLUCOSE 124* < > 88 < > -- < > 82 90 87 CALCIUM 9.1 -- 9.2 -- -- -- 9.2 -- -- HGB 9.2* -- 8.6* -- -- -- 9.4* -- -- HCT 30.0* -- 28.7* -- -- -- 28.5* -- -- < > = values in this interval not displayed. PLT 70 No results found for: HGBA1C Anthropometrics: Ht: Height: 170.2 cm (5' 7 ) Wt: Weight: 86.7 kg (191 lb 2.2 oz) (06/04). No new wt (06/11) Wt hx: 194# (05/25/25) BMI: Body mass index is 29.94 kg/m??. Wt Change: fairly stable UBW: UTO IBW: 135# Percent IBW: 141% Current Nutrition Intake: Diet Orders: Diet Order(s): Renal diet Supplements: Diet Supplements: None. Will add Nepro BID Intake: 25% x 1 recorded meal so far Enteral Nutrition? no, Rusty hernandez Diet Experience and Nutrition History: Previous Nutrition Education: Unknown Diet Education Provided: pt not appropriate at this time Nutrition Focused Physical Exam: Date performed: unable to assess Physical signs of fat or muscle wasting with severity: UTO Energy intake hx: UTO Wt loss: UTO Assessment of Malnutrition: Unable to complete malnutrition evaluation at this time. Nutrition Diagnoses: Problem #1: Predicted Sub Optimal Intake Etiology: inability to meet metabolic demand Signs/Symptoms: MST=2 Status: New Problem #2: Inadequate Oral Intake Etiology: AMS Signs/Symptoms: NPO, need for TF Status: Resolved Nutrition Interventions and Recommendations: Collaboration with other providers and Enteral nutrition Nutrition Monitoring and Goals: - Adjust diet to 2 g Na, Low phos. Will add Nepro BID Goal: intakes >50%. - Obtain wt 2x weekly Goal: avoid involuntary significant wt change - Monitor elytes/renal fxn Goal: wnls - Assess for PCM as able Goal: accurate PCM diagnosis Nutrition Risk Level: High Risk Michelle Shaffer RD * Emi Salguero RN - 06/11/2025 12:30 PM EDT Report called to [facility] to Vivienne. * Cristina Starks RN - 06/11/2025 8:24 AM EDT Care Coordination Final Discharge Plan Final Discharge Plan IMM reviewed with patient's Mia ALANIZ, , due to patient's confusion, copy with patient. Original to chart. Patient Appealing Discharge: No Does the patient have ability to fill and recive their discharge medications? Yes Patient returning to prior living situation: Yes Support Systems: Home care staff, Family members Discharge Disposition: return to LTC at [facility] Arranged for Discharge: stretcher transport with 4l/min/nc oxygen. Transporation Provider: [employer] [facility] [employer] Provider Date of spring manufacturing set up technician: 06/11/2025 Time of spring manufacturing set up technician: 1300 Pending discharge summary completion and cleared by our pharmacy: Report given to bedside nurse: [phone] Facility Pharmacy: [facility] [place], [place] Notified patient Mia ALANIZ of discharge today back to [facility] with[place] at 1300 today. Mia verbalized appreciation of notification. Cristina MEDINA, RN, [facility] Geophysical Data Technician [phone] 1133: pharmacy cleared discharge summary and sent via [facility] and requested fax of : [phone] Notified nursing report could be called. Cristina MEDINA, RN, [facility] Geophysical Data Technician [phone] 1347: received message from bedside nurse that transport has not arrived. This CM called [facility] [phone] and they stated they had to change transport to 1630. Notified bedside nurse, facility and patient's Mia ALANIZ. Cristina MEDINA, RN, [facility] Geophysical Data Technician [phone] * Aleshia Gallegos MD - 06/10/2025 5:25 PM EDT Images from the original note were not included. Pulm/CC Date of consultation: 06/03/2025 Reason for consultation: ICU admission, renal failure Chief complaint: Weakness History of present illness: Patient is an 84-year-old female who presented to an outlying facility from the longterm for altered mental status. Patient has a past medical history including type 2 diabetes mellitus, chronic hypoxemic respiratory failure, chronic kidney disease, BRIDGETTE, hyperlipidemia, depression, GERD. Her mental status has deteriorated over the past couple of days with on and off confusion. Per report she has had multiple ground-level falls without trauma. In the emergency department her blood pressure was 105/44 with a heart rate in the 60s. She does have chronic respiratory failure and typically wears 2 L O2. Her initial laboratory data revealed sodium 140, potassium 7.2, serum CO2 24, serum creatin ine 6.00, glucose 115, WBC 8.5. Patient had a CT scan of the head that revealed no acute abnormalities. CT scan revealed diffuse patchy infiltrate noted throughout the right mid and lower lung. Patient was transferred to [facility] and admitted to the ICU. Pulmonary/critical care consulted for ICU admission. At time of evaluation, patient is awake, answering most questions appropriately. On 2 L O2 with adequate saturation. Hemodynamically stable not requiring vasopressors. No family present at bedside. She denies nausea, vomiting, diarrhea. No chest pain. 06/04 seen examined today, encephalopathic, confused, awake but not oriented, hypoxic 8 L nasal cannula bicarb drip, Azactam/Doxy, chest x-ray right lung infiltrate. Pneumonia panel pending, magnesium replaced, creatinine 5.35, urine output 300 cc. Nephrology following, ultrasound kidney pending 06/05: Seen and examined, awake, follow commands, 5 L nasal cannula, hemodynamically stable, afebrile, Azactam/Doxy. Creatinine trending down 4.7, UOP 1200 cc last 24 hours, 750 cc overnight, nephrology following p.o. diet Discontinue bicarb drip CAT scan of the chest pending 06/06: Seen and examined, remains encephalopathic, but awake follow some commands, alert, not oriented, on nasal cannula 6 L, CAT scan of the chest shows bilateral lower lobe pneumonia patient doxycycline/Azactam, dysphagia: PEG tube feeding, nephrology following. Creatinine 4.16. Patient making urine, urine repeat 2 L, magnesium 1.8. Placement, potassium 4.2. Close monitoring in the ICU 06/07 Patient was seen and evaluated this morning. She is alert and oriented. On 6 L. No issues overnight. Intake to 60, output 1550, -1300. No fever. Sodium up to 147. Free water flushes increased to 30 cc/h. Potassium of 4. Bicarb of 32. Creatinine down to 3.6. Mag 1.7 on replacement. Chest x-ray showing right lung infiltration. On Corpak and tube feeding. 06/08 Patient was seen and evaluated this morning. She was questionable aspiration yesterday but her oxygenation is improving and this morning was on 3 L nasal cannula. Corpak for now. She failed swallow eval this morning. Discussed with RN to place another Corpak and start free water flushes. Sodium up to 152 overnight started on D5. Will repeat BMP at 2:00 and if sodium is improving then we will keepfree water flushes and DC fluid. She still confused. Intake 400, output 700, -300. No family at bedside. 06/09 Patient was seen and evaluated this morning. No issues overnight. She is more alert and oriented this morning. She is answering most of my questions. On 4 L nasal cannula. No fever. Intake 500, output 1200, -700. Sodium down to 147. Creatinine down to 2.5. On free water flushes and D5 quarter per nephrology. Doxycycline discontinued. On Azactam. 06/10: Patient seen and examined at bedside. Alert and oriented. Hemodynamically stable. On supplemental oxygen nasal cannula at 4 L/min and saturating at goal. Remains on IV antibiotics with Azactam. Labs and imaging reviewed. Tolerating oral diet. Normal white count with stable H&H and thrombocytopenia. Eliquis within normal range. BUN/creatinine stable. Chest x-ray with improving bilateral perihilar opacities. Small pleural effusion stable. PAST MEDICAL HISTORY: Past Medical History: Diagnosis Date Asthma Chronic kidney disease Emphysema lung (HCC) History of degenerative disc disease Hypertension Lumbar radiculopathy PAST SURGICAL HISTORY: Allergies: Allergies Allergen Reactions Azithromycin Ceftriaxone Pollen Extracts SOCIAL HISTORY: Social History Tobacco Use Smoking status: Former Current packs/day: 0.00 Types: Cigarettes Quit date: 2014 Years since quittin.7 Smokeless tobacco: Never Substance Use Topics Alcohol use: Never Drug use: Never FAMILY HISTORY: Family history is unknown by patient. ROS Constitutional: No fever, no weight changes HEENT: No headaches, no vision changes Cardiac: No chest pain, no palpitations, no orthopnea Pulmonary: No SOB, no TOLLIVER, no cough GI: No nausea, no vomiting, no abdominal pain, no melena, no constipation, no diarrhea : No dysuria, no hematuria, no flank pain MSK: No muscle cramping, + muscle weakness Neuro: No paresthesias, no focal deficits Skin: No rashes, no skin lesions Psych: No depression, no anxiety Vital Signs Temp: [98.1 ??F (36.7 ??C)-98.4 ??F (36.9 ??C)] 98.1 ??F (36.7 ??C) Pulse: [49-74] 49 Resp: [16-18] 16 BP: (115-145)/(49-80) 137/55 Current: Temp: 98.1 ??F (36.7 ??C) Pulse: (!) 49 Resp: 16 BP: 137/55 SpO2: 94 % 24 Hour: BP Min: 115/49 Max: 145/80 Temp Min: 98.1 ??F (36.7 ??C) Max: 98.4 ??F (36.9 ??C) Pulse Min: 49 Max: 74 Resp Min: 16 Max: 18 SpO2 Min: 92 % Max: 99 % Intake/Output: I/O last 3 completed shifts: In: 1000 [I.V.:1000] Out: 1004 [Urine:1000; Stool:4] Physical examination: General: Awake and answering questions. Eyes: Pupils equal, round, reactive to light, extraocular movements intact, normal conjunctiva HENT: Normocephalic, atraumatic, Supple, nontender, no carotid bruit Respiratory: Breath sounds equal bilaterally, decreased in the bases, no rhonchi or wheezing Cardiovascular: Normal rhythm, normal rate, currently with controlled rate, S1-S2 Gastrointestinal: Soft, nontender, nondistended, normoactive bowel sounds Integumentary: Warm, intact Genitourinary: Deferred MSK: No deformities, normal range of motion Neurologic: Mostly alert, answering questions. Psychiatric: Cooperative, appropriate mood Vent / O2 Management: LABS Results for orders placed or performed during the hospital encounter of 06/03/25 (from the past 24 hours) Basic Metabolic Panel Status: Abnormal Collection Time: 06/10/25 3:43 AM Result Value Ref Range Sodium 143 136 - 145 meq/L Potassium 3.7 3.4 - 5.1 meq/L CO2 32 (H) 22 - 29 meq/L Chloride 102 98 - 112 meq/L Glucose 88 82 - 115 mg/dL BUN 57.3 (H) 9.8 - 20.1 mg/dL Creatinine 2.47 (H) 0.50 - 1.20 mg/dL BUN/Creatinine 23 (H) 8 - 20 Calcium 9.2 8.4 - 10.2 mg/dL Anion Gap 13 (H) 4 - 12 eGFR (mL/min/1.73m2) 19 (L) >=60 mL/min/1.73m2 Osmolality Calc 300.3 mOsm/kg CBC with automated diff Status: Abnormal Collection Time: 06/10/25 3:43 AM Result Value Ref Range WBC 4.6 4.0 - 10.0 K/??L RBC 3.10 (L) 3.93 - 5.22 M/??L Hemoglobin 8.6 (L) 11.2 - 15.7 GM/DL Hematocrit 28.7 (L) 34.1 - 44.9 % MCV 93 79 - 95 fL MCH 27.7 25.6 - 32.2 pg MCHC 30.0 (L) 32.2 - 35.5 GM/DL RDW 16.6 (H) 11.7 - 14.4 % Platelets 68 (L) 140 - 375 K/CU MM MPV 12.3 9.4 - 12.3 fL % Neutros 64 34 - 71 % % Lymphs 19 19 - 52 % % Monos 12 5 - 13 % % Eos 1.7 1.0 - 6.0 % % Baso 0 0 - 1 % NRBC Absolute <0.01 0 - 0.012 K/ul # Neutros 2.94 1.56 - 6.13 K/??L # Lymphs 0.86 (L) 1.18 - 3.74 K/??L # Monos 0.54 0.24 - 0.86 K/??L # Eos 0.08 0.04 - 0.36 K/??L # Baso <0.03 0.01 - 0.08 K/ L % Imm Grans 4.30 (H) 0.01 - 0.43 % # IG 0.20 (H) 0.00 - 0.03 K/uL Magnesium Status: Normal Collection Time: 06/10/25 3:43 AM Result Value Ref Range Magnesium 1.6 1.6 - 2.6 mg/dL Glucose, Nova Meter Status: None Collection Time: 06/10/25 6:05 AM Result Value Ref Range POC-GLUCOSE 83 70 - 110 mg/dL Electric Organ Checker [id number] ECG 12 lead Status: None (In process) Collection Time: 06/10/25 9:57 AM Result Value Ref Range VENTRICULAR RATE EKG/MIN 56 BPM ATRIAL RATE (MCT) 56 BPM GA Interval 228 ms QRS-INTERVAL (MSEC) 126 ms QT Interval 450 ms QTC Interval 434 ms P [place] 8 degrees R AXIS (MCT) 25 degrees T Wave [place] 0 degrees [place] Diagnosis Sinus bradycardia with 1st degree AV block Right bundle branch block Abnormal ECG When compared with ECG of 07-JUN-2025 07:49, premature supraventricular complexes are no longer present Criteria for Anterior infarct are no longer present Nonspecific T wave abnormality, improved in Lateral leads Glucose, Nova Meter Status: None Collection Time: 06/10/25 10:37 AM Result Value Ref Range POC-GLUCOSE 97 70 - 110 mg/dL Electric Organ Checker [id number] Potassium Status: Normal Collection Time: 06/10/25 11:08 AM Result Value Ref Range Potassium 3.9 3.4 - 5.1 meq/L Glucose, Nova Meter Status: None Collection Time: 06/10/25 3:36 PM Result Value Ref Range POC-GLUCOSE 98 70 - 110 mg/dL Electric Organ Checker [id number] Glucose, Nova Meter Status: Abnormal Collection Time: 06/10/25 7:54 PM Result Value Ref Range POC-GLUCOSE 114 (H) 70 - 110 mg/dL Electric Organ Checker [id number] Radiology Radiology Results (last day) No results found for the last 24 hours. Microbiology: Microbiology Results (last 7 days) Procedure Component Value Units Date/Time Respiratory Panel [[id number]] (Normal) Collected: 06/04/251322 Order Status: Completed Specimen: Nasopharyngeal Swab Updated: 06/04/25 1527 ADENOVIRUS Not detected CORONAVIRUS 229E Not detected CORONAVIRUS HKU1 Not detected CORONAVIRUS NL63 Not detected CORONAVIRUS OC43 Not detected SARS-COV2/RT-PCR Not Detected HUMAN METAPNEUMOVIRUS Not detected HUMAN RHINOVIRUS/ENTEROVIRUS Not detected INFLUENZA A Not detected INFLUENZA B Not detected PARAINFLUENZA VIRUS 1 Not detected PARAINFLUENZA VIRUS 2 Not detected PARAINFLUENZA VIRUS 3 Not detected PARAINFLUENZA VIRUS 4 Not detected RESPIRATORY SYNCYTIAL VIRUS Not detected BORDETELLA PARAPERTUSSIS Not detected BORDETELLA PERTUSSIS Not detected CHLAMYDIA PNEUMONIAE Not detected MYCOPLASMA PNEUMONIAE Not detected Narrative: Testing was performed with RT-PCR methodology using the [employer] Respiratory Panel 2.1 which has FDADe Jacquie approval for SARS-CoV-2 testing. Negative results do not preclude infection with the SARS-CoV-2 virus and should not be used as the sole basis of patient treatment or public health decisions.Negative results must be considered in the context of an individual's recent exposures, history, and presence of clinical signs/symptoms. Follow-up testing should be performed according to the current CDC recommendations. Other viruses and bacteria not targeted by this PCR panel cannot be excluded; therefore clinical correlation and follow up of serology, culture results, and other molecular studies is required. The results are not intended to be used as the sole means for clinical diagnosis or patient management decisions. This sample was tested at the [facility] Molecular Diagnostics Laboratory using the [employer] Respiratory Panel. It is FDA cleared and has been verified and approved by the [facility] for clinical use on nasopharyngeal swab specimens. The performance of the FilmArray RP has not been established in individuals who received influenza vaccine. Recent administration of a nasal influenza vaccine may cause false positive results for Influenza A and/or Influenza B. MRSA Screen [[id number]] (Normal) Collected: 06/04/251322 Order Status: Completed Specimen: Nasal from Nares Updated: 06/04/25 1527 MRSA by PCR [facility] MRSA Not Detected by PCR Pneumonia PCR Panel w/Respiratory Culture [[id number]] Order Status: Canceled Specimen: Sputum from Expectorated Pneumonia PCR Panel [[id number]] Order Status: Canceled Specimen: Sputum from Expectorated Respiratory Culture [[id number]] Order Status: Canceled Specimen: Sputum from Expectorated Strep pneumoniae urine antigen [[id number]] (Normal) Collected: 06/03/25 2350 Order Status: Completed Specimen: Urine, Unspecified Source Updated: 06/04/25 0012 Strep pneumoniae Antigen Presumptive negative for pneumococcal pneumonia - see comment Narrative: A presumptive negative result suggests no current or recent pneumococcal infection. Infection due to S. pneumoniae cannot be ruled out since the antigen present in the specimen may be below the detection limit of the test. Echo 06/04/25 Normal sized left ventricle. Mild left ventricular hypertrophy. Visually estimated ejection fraction 55% +/- 5%. Normal left ventricular systolic function with normal systolic strain pattern. Normal left ventricular diastolic function. Normal right ventricular size and function. No hemodynamically significant valvular heart disease. Impression: Neuro: Acute metabolic/uremic encephalopathy, improving Ground level fall Degenerative cervical spine disease T12 compression fracture Pulmonary Acute/chronic hypoxic respiratory failure 4 L nasal cannula Bilateral lower lobe pneumonia Mild pulmonary vascular congestion CXR Former smoker possible COPD Cardiovascular History of hypertension Echo EF 55%, normal LV function, mild LVH Infectious disease Right lung pneumonia possible CAP Renal: Acute hyperkalemia-resolved Acute metabolic acidosis-resolved Acute kidney injury/CKD Hypernatremia Hematology: Chronic anemia Chronic thrombocytopenia Endocrinology Type 2 diabetes mellitus Plan: Neuro: Acute encephalopathy in setting of worsening renal failure, sepsis, pneumonia,. Patient protecting airway on nasal cannula Head CT outside facility: Reported to be negative for acute finding. CT cervical spine degenerative changes with central canal narrowing, moderate compression T12 fracture. Recommend evaluation by neurosurgery. Neuro status is improving and she is more alert and oriented. Pulmonary: Acute on chronic hypoxic respiratory failure. chest x-ray CAT scan bilateral lower lobe infiltrate community-acquired pneumonia possible aspiration Started on Azactam/doxycycline plan to continue 7 days. CAT scan of the chest: Bilateral lower lobe pneumonia Respiratory viral panel: Negative MRSA screen negative Streptococcus pneumonia antigen negative Pulmicort/DuoNebs. Repeated chest x-ray showed improving right lung infiltration. Oxygenation is improving and currently on 4 L nasal cannula Cardiovascular: Hemodynamically stable. Underlying heart failure with EF, proBNP/echo normal EF, mild LVH Infectious: CBC no leukocytosis, Pro-Erasmo elevated, chest imaging suggestive of bilateral pneumonia,IV Azactam , pneumonia workup so far negative, repeat CAT scan of the chest 6 to 8 weeks for resolution of the pneumonia, speech evaluation, rule out aspiration Continue Azactam for total 7 days. S/p doxycycline Renal: RICHIE/CKD, sodium unremarkable, hyperkalemia treated with hyperkalemia cocktail, magnesium replaced Nephrology consulted, ultrasound kidney normal renal ultrasound Mild metabolic acidosis improving. Discontinued bicarb drip Patient making urine. Continue monitoring creatinine trend electrolyte Sodium up to 152. Sodium trended down to 147. Continue with water flushes 50 mL/h. On D5 quarter saline per nephrology. GI/nutrition: Dysphagia, possible aspiration, speech, feeding LFT unremarkable, bilirubin unremarkable, bowel regimen Corpak reinserted and started on tube feeding. She passed swallow eval but she has poor oral intake. Will keep Corpak and tube feeding for now. Hematology: CBC no leukocytosis, H&H stable, thrombocytopenia chronic, mild anemia chronic. Monitor H&H, platelet number Prophylaxis: Subcu heparin/Pepcid Prognosis: Guarded FULL CODE Patient seen and examined at bedside. Laboratory studies, imaging studies, other diagnostic studies, and inpatient medications reviewed. Chest imaging studies visualized and reviewed independent of radiologist. Complex case and required high level of medical decision making. Voice management trainee technology ([employer]) is used for dictation of this note and sound-alike words might be erroneously placed despite reviewing the note for accuracy. Errors in dictation may reflect use of voice recognition software and not all errors in management trainee may have been detected prior to signing. * Tamar Ha PTA - 06/10/2025 2:50 PM EDT Images from the original note were not included. Inpatient Physical Therapy Treatment Patient Name: Kirstie Pope New Date of : 1940 Date of Treatment: 06/10/25 Start Time 1412 Stop Time 1450 Session Duration 38 minutes General Visit Type: Treatment Approved By: Nurse Middleton Patient Disposition Upon Entry: Supine in bed, Call Light/Pull Cord in reach, All needs met and within reach, Bed Alarm applied , Fall mat placed Patient Verified By: Name and Date of Co-Treated By: OT student Precautions Weight-Bearing Status: No Restrictions Precautions: Fall risk Isolation Precautions: Standard Lines, tubes, drains, airway: nasal cannula , peripheral IV, pulse oximeter , telemetry Subjective Subjective: Patient agreeable to physical therapy treatment. Pain No - Patient not reporting pain at this time Cognition Orientation Level: Oriented to person, Disoriented to place, Disoriented to time, Disoriented to situation Objective Vitals Pre-intervention vitals Heart rate: 99 beats per minute Blood pressure: 141/53 mmHg SpO2: 93% O2: 4 (L/min) nasal cannula O2 sat 84-96% on 4L O2 rest of session with RN alerted. Functional Mobility Bed Mobility: Supine to Sit: moderate assistance, 2-person assist Sit to Supine: moderate assistance, 2-person assist Transfers Unable to assess due to deconditioning, fatigue, weakness, and impaired balance . Gait Unable to assess due to deconditioning, fatigue, weakness, and impaired balance Stair Management Unable to assess due to deconditioning, fatigue, weakness, and impaired balance . Wheelchair Mobility Unable to assess due to deconditioning, fatigue, weakness, and impaired balance . AM-PAC Basic Mobility Inpatient Short Form How much difficulty does the patient currently have: Turning over in bed (including adjusting bedclothes, sheets, and blankets)? (1) Total/Unable (not able to do the activity or can only perform the activity using assistive devices or requires assistance from another person, including supervision or cueing for safety) Sitting down on and standing up from a chair with arms (e.g., wheelchair, bedside commode, etc.)? (1) Total/Unable (not able to do the activity or can only perform the activity using assistive devices or requires assistance from another person, including supervision or cueing for safety) Moving from lying on back to sitting on side of bed? (1) Total/Unable (not able to do the activity or can only perform the activity using assistive devices or requires assistance from another person,including supervision or cueing for safety) How much help from another person does the patient currently need: Moving to and from a bed to a chair (including a wheelchair)? (1) Total/Unable (Total assist/dependent) Need to walk in hospital room? (1) Total/Unable (Total assist/dependent) Climbing 3-5 steps with a railing? (1) Total/Unable (Total assist/dependent) Score Raw score=6 t-Scale score=23.55 Standard error=4.57 [facility] 0-100%=100.00% MDC=4.72 A raw score of >= 16 is significantly associated with increased odds of discharge to home in addition to consideration made for the patient's cognition and social determinants of health. Balance Static/dynamic sitting and static/dynamic standing balance grades Balance Grade Sitting Static Fair - patient able to maintain balance with handhold support; may require occasional minimal assistance Sitting Dynamic Fair - patient accepts minimal challenge; able to maintain balance while turning head/trunk Standing Static Unable to assess Standing Dynamic Unable to assess Activity Tolerance Patient limited with activity/intervention due to fatigue, deconditioning, and weakness Treatment Patient sat EOB for ~20 minutes with SBA and performed ankle pumps x 10 BLE. Assessment Patient was able to transfer to EOB with assistance for safety. Patient would benefit from continued therapy to increase endurance and decrease safety risk and caregiver burden. Plan Treatment plan: Continue per plan of care. PT Frequency/Duration: 5x/week for 14 days Recommendations Discharge recommendations: Patient would benefit from 1-2 hours of multidisciplinary therapy per day upon discharge from acute care setting to assist with returning to prior level of functioning. DME recommendations: Unable to make recommendations at this time. Goals Autvux-jf-xud: By the target date, patient will perform [id number] with contact guard assistance, utilizing no assistive device, to improve independence with bed mobility. Agd-hq-tbipb: By the target date, patient will perform sit to stand with contact guard assistance and rolling walker to improve independence with functional mobility. Transfer: By the target date, patient will perform stand-pivot transfer to a bedside commode, recliner chair, or wheelchair with stand by assistance and utilizing rolling walker, demonstrating ability to safely transfer while in hospital setting to improve independence with functional mobility. Gait: Patient will ambulate 100' with minimal assistance and utilizing rolling walker in order to increase independence with ambulation and improve balance with ambulation and decrease risk of falling Target Date: 06/20/2025 Progress towards goals: progressing Education Patient educated on safety, role of physical therapy, and plan of care and following, they were able to verbalize understanding. No further questions or concerns stated. Interdisciplinary Communication Following treatment, therapist communicated with nursing by completing communication whiteboard in room. Patient Disposition Upon Leaving Supine in bed, Call Light/Pull Cord in reach, All needs met and within reach, Nursing aware/notified, Bed Alarm applied , Fall mat placed If this patient discharges prior to next therapy session, this note serves as the patient's discharge summary. Electronically signed by Tamar Ha PTA - 06/10/25 - 3:53 PM EDT Cosigned by Elpidio Hughes PT at 06/11/2025 1:04 PM EDT Associated attestation - Elpidio Hughes PT - 06/11/2025 12:04 PM CDT I, Elpidio Hughes PT, DPT, reviewed the notes, assessments, and/or procedures performed by Tamar Ha PTA, I concur with their documentation of Kirstie Nascimento. Electronically signed by Elpidio Hughes PT, DPT - 06/11/25 - 1:04 PM EST * Cristina Starks RN - 06/10/2025 2:24 PM EDT Discharge Plan Progress Note Contact Brigid liaison with [facility] to see if patient able to return tomorrow? Brigid reviewingand will let us know if they can accept tomorrow. Patient is a LTC resident at [facility]. Awaiting response and if they have transport available. Cristina MEDINA, RN, [facility] Geophysical Data Technician [phone] Patient Name: Kirstie Nascimento Date of : 1940 Insurance: Primary Coverage (MEDICARE) Authorization number not found. Subscriber number: [id number] Admission Date: 06/03/2025 Admission Diagnosis: Acute renal failure (ARF) (HCC) [N17.9] Hospital Room: [address] [place] [address] Requesting Transport Cristina Starks RN Oxygen Documentation from Nursing Flowsheets: Oxygen Therapy/Pulse Ox Oxygen Therapy: Supplemental oxygen O2 Delivery Method: Nasal cannula O2 Flow Rate (L/min): 4 L/min SpO2: 92 % Patient Activity During SpO2 Measurement: At rest $ Oxygen per 12 hours: Yes $ Pulse Oximetry Spot Check: Single $0 Patient Assessment Charge: Subsequent Ht Readings from Last 3 Encounters: 06/04/25 1.702 m (5' 7 ) Wt Readings from Last 3 Encounters: 06/04/25 86.7 kg (191 lb 2.2 oz) Current Code Status Full Code Isolation precautions: No active isolations Activity from most recent PT note: Bed mobility only (EMS/stretcher appropriate) Transport Type Requested: Ambulance - BLS PCS Justification: PCS Justification: Altered Mental Status, Poor/No Trunk Control, and SignificantWeakness Monitoring Required: Oxygen Administration Destination Type: Destination Types: [facility] Destination Address: [address] [place] [address] Destination Date Transport is Needed: 06/11/2025 afternoon. Phone Number for [facility] Nurses Station: [phone] Cristina MEDINA, RN, [facility] Geophysical Data Technician [phone] * CARLOS Morse/Aditya - 06/10/2025 2:15 PM EDT Images from the original note were not included. [address] [facility] Inpatient Occupational Therapy Treatment Note Patient Name: Kirstie Nascimento Date of : 1940 Date of Treatment: 06/10/25 Start Time: 214 Stop Time: 249 Session Duration: 35 minutes This patient is a 84 y.o. female admitted on 06/03/2025 with Acute renal failure (ARF) (HCC) [N17.9]. Past Medical History: Diagnosis Date Asthma Chronic kidney disease Emphysema lung (HCC) History of degenerative disc disease Hypertension Lumbar radiculopathy No past surgical history on file. General Visit type: Treatment Approved by: Nurse Middleton Patient disposition upon entry: Patient verified by name, Patient verified by date of , Supinein bed, Call light/pull cord in reach, Bed alarm applied, Fall mats in place, Head of bed >30 degrees, Nursing aware/notified Co-treated by: Tamar HILL Assisted by: Therapy student Precautions Weightbearing status: No restrictions Precautions: Fall risk Isolation precautions: Standard LDA/Brace/Protective equipment: Lines, drains, and airways: blood pressure cuff, nasal cannula, peripheral IV, pulse oximeter , telemetry , purewick Subjective Subjective: Pt agreeable Pain No-patient has no complaints of pain Cognition Cognition: Overall cognitive status: Impaired Following commands: Follows one step commands with increased time Follows one step commands with repetition Objective Vitals Heart rate: 101 beats per minute Blood pressure: 141/53 mmHg SpO2: 93% O2 (L/min): 4 (L/min) nasal cannula Bed Mobility Supine to sit: Moderate assistance, 2 person assist, Head of bed elevated, Use of bedrails Sit to supine: Moderate assistance, 2 person assist, Head of bed elevated Balance Static sitting balance:Fair: Patient able to maintain balance with handheld support, may require occasional minimal assistance Dynamic sitting balance:Fair: Patient accepts minimal challenge; able to maintain balance while turning head/trunk Activity Tolerance Patient limited with activity/intervention due to fatigue, weakness, cognitive impairment, and lethargy Treatment Pt presents supine in bed and agreed to therapy session. Pt engaged in bed mobility requiring mod Ax2 to sit EOB. Pt sat EOB for several mins. Pt brushed her hair with brush handed to her. She also demonstrated BLE ROM with PT. While sitting EOB pts O2 remained in the upper 80s low 90s. Pt returned to supine and rolled to each side with min A for pericare. Pt returned supine and positioned comfortably. Nurse notified at the end of session of O2 during session. Assessment Assessment Patient demonstrated improved performance during this treatment session. Patient continues to present with decreased strength, decreased endurance, decreased balance, shortness of air with activity, impaired cognition. These deficits currently impact the patient's ability to perform ADLs and functional mobility, putting them at an increased risk for increased falls, decreased quality of life, poor outcomes, further functional decline, further decreased strength, increased caregiver burden, other medical complications. Patient will benefit from continued OT services to address the aforementioned functional deficits. Plan Recommendations Discharge recommendations: Patient would benefit from 1-2 hours of multidisciplinary therapy per day upon discharge from acute care setting to assist with returning to prior level of functioning. DME recommendations: Unable to make adaptive/DME recommendations at this time. Treatment Plan: Continue OT POC OT Frequency/Duration: 3x/week for 14 days Goals Grooming: grooming, sitting edge of bed with setup Bathing:sponge bath seated with setup. Toileting: toileting with setup. Functional transfers: stand pivot transfer with moderate assistance. Target Date: 06/20/2025 Goals were discussed with patient Progress towards goals: progressing Education Patient educated on safety, use of call light, patient's plan of care and following, they were ableto verbalize understanding. Interdisciplinary Communication Following treatment, therapist communicated with nursing regarding patient's performance during therapy session. Patient Disposition Upon Leaving Patient Disposition: Supine in bed, All needs met and within reach, Call light/pull cord in reach, Bed alarm applied, Fall mats in place, Head of bed >30 degrees, Nursing aware/notified If this patient discharges prior to next therapy session, this note serves as the patient's discharge summary. Electronically signed by Chayito Caruso - 06/10/2025 - 3:15 PM EDT Maryam Farooq OTR/Aditya, has reviewed and agrees with documentation * Bernice Whitney RN - 06/10/2025 1:48 PM EDTSummary: INTEGRITY CONSULTANT USIV placement 20g PIVL placed via US guidance. Flushes and returns blood easily. No ? pain or discomfort at site.Secured with tegaderm and tape. * Holger Mishra MD - 06/10/2025 12:01 PM EDT Images from the original note were not included. Subjective: Patient was seen and examined with all infection control measures. NAD, on 4 L of oxygen, alert andafebrile. Hospital Course: Kirstie Nascimento is an 84 y.o. female with PMHx of stage III CKD, DM 2, HTN, Asthma, Chronic Respiratory Failure, Arthritis, who was transferred from outside hospital after she presented there from nursing facility due to fal and altered mental status. Initial workup showed RICHIE. CXR showed patchy infiltrate R mid to lower lung. Pt was given hyperkalemia protocol and was transferred to [facility] for renal evaluation. Patient is very poor historian and unable to provide reliable history. Allergies: Azithromycin, Ceftriaxone, and Pollen Extracts Home Medications: Prior to Admission medications Medication Sig Start Date End Date Taking? Authorizing Provider calcium carbonate (OS-ERASMO) 600 mg calcium (1,500 mg) Take 600 mg by mouth daily. Yes Historical Provider, cyanocobalamin 1000 MCG tablet Take 1 tablet (1,000 mcg total) by mouth daily. Yes Historical Provider, dapagliflozin propanediol (Farxiga) 10 mg tablet Take 1 tablet (10 mg total) by mouth daily. Yes Historical Provider, escitalopram (LEXAPRO) 20 MG tablet Take 1 tablet (20 mg total) by mouth daily. Yes Historical Provider, esomeprazole (NexIUM) 40 MG capsule Take 1 capsule (40 mg total) by mouth Daily (0600). Yes Historical Provider, famotidine (PEPCID) 20 MG tablet Take 2 tablets (40 mg total) by mouth once at bedtime. Yes Historical Provider, fluticasone propion-salmeteroL (ADVAIR) 250-50 mcg/dose diskus inhaler Inhale 1 puff by mouth 2 (two) times daily. Yes Historical Provider, furosemide (LASIX) 40 MG tablet Take 1 tablet (40 mg total) by mouth daily. Yes Historical Provider, ipratropium-albuteroL (DUO-NEB) 0.5 mg-3 mg(2.5 mg base)/3 mL nebulizer solution Inhale 3 mLs by nebulization every 6 (six) hours as needed for wheezing. Yes Historical Provider, irbesartan (AVAPRO) 300 MG tablet Take 1 tablet (300 mg total) by mouth nightly. Yes Historical Provider, loperamide (IMODIUM) 2 mg capsule Take 1 capsule (2 mg total) by mouth 4 (four) times daily as needed for diarrhea. Yes Historical Provider, metFORMIN (GLUCOPHAGE) 500 MG tablet Take 1 tablet (500 mg total) by mouth 2 (two) times daily withbreakfast and dinner Look-alike/Sound-alike medication. Yes Historical Provider, metoprolol succinate (TOPROL-XL) 50 MG 24 hr tablet Take 1 tablet (50 mg total) by mouth daily. YesHistorical Provider, montelukast (SINGULAIR) 10 mg tablet Take 1 tablet (10 mg total) by mouth nightly. Yes Historical Provider, multivitamin per tablet Take 1 tablet by mouth daily. Yes Historical Provider, oxybutynin (DITROPAN) 5 MG tablet Take 4 tablets (20 mg total) by mouth daily. Yes Historical Provider, pregabalin (LYRICA) 75 MG capsule Take 1 capsule (75 mg total) by mouth 2 (two) times daily. Max Daily Amount: 150 mg Yes Historical Provider, simvastatin (ZOCOR) 20 MG tablet Take 1 tablet (20 mg total) by mouth nightly. Yes Historical Provider, spironolactone (ALDACTONE) 50 MG tablet Take 1 tablet (50 mg total) by mouth daily. Yes Historical Provider, TiZANidine (ZANAFLEX) 2 MG capsule Take 1 capsule (2 mg total) by mouth once at bedtime. Yes Historical Provider, Current Medications: Current Facility-Administered Medications: acetaminophen (TYLENOL) tablet 650 mg, 650 mg, oral, Q6H PRN, Sima Mancia MD, 650 mg at 06/09/25 2234 amLODIPine (NORVASC) tablet 5 mg, 5 mg, oral, Daily, Bela Abel MD, 5 mg at 06/10/25 0911 atorvastatin (LIPITOR) tablet 10 mg, 10 mg, oral, Daily, Charity Steiner MD, 10 mg at 06/10/25 0911 aztreonam (AZACTAM) 1 g in sodium chloride 0.9 % (NS) MBP IVPB, 1 g, intravenous, Q12H, Bela Abel MD, Last Rate: 0 mL/hr at 06/10/25 0415, Restarted at 06/10/25 1139 budesonide (PULMICORT) nebulizer suspension 0.5 mg, 0.5 mg, nebulization, 2 times daily, Sima Mancia MD, 0.5 mg at 06/10/25 08 cyanocobalamin tablet 1,000 mcg, 1,000 mcg, oral, Daily, Charity Steiner MD, 1,000 mcg at 06/10/25 09 dextrose 50% (D50W) injection 25 g, 25 g, intravenous, Q15 Min PRN, Charity Steiner MD escitalopram (LEXAPRO) tablet 20 mg, 20 mg, oral, Daily, Charity Steiner MD, 20 mg at 06/10/25 0910 famotidine (PEPCID) tablet 20 mg, 20 mg, oral, Daily, Sima Mancia MD, 20 mg at 06/10/25 09 glucagon injection 1 mg, 1 mg, intraMUSCULAR, Q15 Min PRN, Charity Steiner MD glucose chew tab 16 g, 16 g, oral, Q15 Min PRN, Charity Steiner MD heparin injection 5,000 Units, 5,000 Units, subcutaneous, Q8H, Octavio Odell MD, 5,000 Units at 06/10/25 0647 hydrALAZINE (APRESOLINE) injection 10 mg, 10 mg, intravenous, Q6H PRN, Sima Mancia MD, 10 mg at 06/07/25 2121 insulin lispro (HUMALOG, ADMELOG) injection 0-6 Units, 0-6 Units, subcutaneous, 4x Daily AC, Charity Steiner MD ipratropium-albuteroL (DUO-NEB) 0.5 mg-3 mg(2.5 mg base)/3 mL nebulizer solution 3 mL, 3 mL, nebulization, 2 times daily, Sima Mancia MD, 3 mL at 06/10/25 08 magnesium sulfate IVPB 2 g in sterile water 50 mL (premix), 2 g, intravenous, Once, Charity Steiner MD metoprolol succinate (TOPROL-XL) 24 hr tablet 50 mg, 50 mg, oral, Daily, Charity Steiner MD, 50 mg at 06/10/25 09 montelukast (SINGULAIR) tablet 10 mg, 10 mg, oral, Every Night, Charity Steiner MD, 10 mg at 06/09/25 2234 multivitamin (THERAGRAN) tablet 1 tablet, 1 tablet, oral, Daily, Charity Steiner MD, 1 tablet at 06/10/25 0912 ondansetron (ZOFRAN) injection 4 mg, 4 mg, intravenous, Q6H PRN, Sima Mancia MD oxybutynin (DITROPAN) tablet 20 mg, 20 mg, oral, Daily, Charity Steiner MD, 20 mg at 06/10/25 0911 polyethylene glycol (GLYCOLAX) packet 17 g, 17 g, oral, Daily PRN, Sima Mancia MD polyethylene glycol (GLYCOLAX) packet 17 g, 17 g, oral, Daily, Octavio Odell MD, 17 g at 06/07/25 0842 pregabalin (LYRICA) capsule 75 mg, 75 mg, oral, BID, Charity Steiner MD, 75 mg at 06/10/25 0911 Saccharomyces boulardii (FLORASTOR) capsule 250 mg, 250 mg, oral, BID, Sima Mancia MD, 250 mg at 06/10/25 0911 sennosides-docusate sodium (SENOKOT S) 8.6-50 mg tablet 1 tablet, 1 tablet, oral, BID PRN, Sima Mancia MD sodium polystyrene sulf-sorbtL 15-20 gram/60 mL suspension 60 g, 60 g, oral, Once, Holger Mishra MD Review of Systems Unable to perform ROS: Mental status change Vitals Blood pressure 135/65, pulse 74, temperature 98.1 ??F (36.7 ??C), temperature source Oral, resp. rate 17, height 1.702 m (5' 7 ), weight 86.7 kg (191 lb 2.2 oz), SpO2 98%. Physical Exam Vitals and nursing note reviewed. Constitutional: Appearance: She is normal weight. She is ill-appearing. HENT: Head: Normocephalic and atraumatic. Nose: Nose normal. Mouth/Throat: Pharynx: Oropharynx is clear. Eyes: Extraocular Movements: Extraocular movements intact. Conjunctiva/sclera: Conjunctivae normal. Pupils: Pupils are equal, round, and reactive to light. Cardiovascular: Rate and Rhythm: Normal rate. Rhythm irregular. Pulses: Normal pulses. Heart sounds: Normal heart sounds. Pulmonary: Effort: Pulmonary effort is normal. Breath sounds: Rhonchi and rales present. Abdominal: General: Abdomen is flat. Bowel sounds are normal. Palpations: Abdomen is soft. Musculoskeletal: General: Normal range of motion. Cervical back: Normal range of motion and neck supple. Right lower leg: Edema present. Left lower leg: Edema present. Skin: General: Skin is warm and dry. Neurological: General: No focal deficit present. Mental Status: She is alert. Mental status is at baseline. She is disoriented. Psychiatric: Behavior: Behavior normal. Labs: Recent Results (from the past 72 hours) Glucose, Nova Meter Collection Time: 06/07/25 5:44 PM Result Value Ref Range POC-GLUCOSE 127 (H) 70 - 110 mg/dL Electric Organ Checker [id number] Glucose, Nova Meter Collection Time: 06/07/25 11:40 PM Result Value Ref Range POC-GLUCOSE 94 70 - 110 mg/dL Electric Organ Checker [id number] Basic Metabolic Panel Collection Time: 06/08/25 2:55 AM Result Value Ref Range Sodium 152 (HH) 136 - 145 meq/L Potassium 3.7 3.4 - 5.1 meq/L CO2 33 (H) 22 - 29 meq/L Chloride 106 98 - 112 meq/L Glucose 94 82 - 115 mg/dL BUN 62.9 (H) 9.8 - 20.1 mg/dL Creatinine 3.01 (H) 0.57 - 1.11 mg/dL BUN/Creatinine 21 (H) 8 - 20 Calcium 8.9 8.4 - 10.2 mg/dL Anion Gap 17 (H) 4 - 12 eGFR (mL/min/1.73m2) 15 (L) >=60 mL/min/1.73m2 Osmolality Calc 319.4 mOsm/kg CBC with automated diff Collection Time: 06/08/25 2:55 AM Result Value Ref Range WBC 4.1 4.0 - 10.0 K/??L RBC 3.30 (L) 3.93 - 5.22 M/??L Hemoglobin 9.3 (L) 11.2 - 15.7 GM/DL Hematocrit 31.0 (L) 34.1 - 44.9 % MCV 94 79 - 95 fL MCH 28.2 25.6 - 32.2 pg MCHC 30.0 (L) 32.2 - 35.5 GM/DL RDW 16.8 (H) 11.7 - 14.4 % Platelets 70 (L) 140 - 375 K/CU MM MPV 11.3 9.4 - 12.3 fL % Neutros 70 34 - 71 % % Lymphs 14 (L) 19 - 52 % % Monos 9 5 - 13 % % Eos 3 1 - 6 % % Baso 0 0 - 1 % NRBC Absolute <0.01 0 - 0.012 K/ul # Neutros 2.84 1.56 - 6.13 K/??L # Lymphs 0.55 (L) 1.18 - 3.74 K/??L # Monos 0.37 0.24 - 0.86 K/??L # Eos 0.11 0.04 - 0.36 K/??L # Baso <0.03 0.01 - 0.08 K/ L % Imm Grans 4.20 (H) 0.01 - 0.43 % # IG 0.17 (H) 0.00 - 0.03 K/uL Glucose, Nova Meter Collection Time: 06/08/25 5:53 AM Result Value Ref Range POC-GLUCOSE 99 70 - 110 mg/dL Electric Organ Checker [id number] Glucose, Nova Meter Collection Time: 06/08/25 12:03 PM Result Value Ref Range POC-GLUCOSE 119 (H) 70 - 110 mg/dL Electric [employer] Checker [id number] Basic Metabolic Panel Collection Time: 06/08/25 2:55 PM Result Value Ref Range Sodium 146 (H) 136 - 145 meq/L Potassium 3.7 3.4 - 5.1 meq/L CO2 33 (H) 22 - 29 meq/L Chloride 100 98 - 112 meq/L Glucose 125 (H) 82 - 115 mg/dL BUN 59.0 (H) 9.8 - 20.1 mg/dL Creatinine 2.86 (H) 0.50 - 1.20 mg/dL BUN/Creatinine 21 (H) 8 - 20 Calcium 8.9 8.4 - 10.2 mg/dL Anion Gap 17 (H) 4 - 12 eGFR (mL/min/1.73m2) 16 (L) >=60 mL/min/1.73m2 Osmolality Calc 308.6 mOsm/kg Glucose, Nova Meter Collection Time: 06/08/25 6:27 PM Result Value Ref Range POC-GLUCOSE 129 (H) 70 - 110 mg/dL Electric [employer] Checker [id number] Glucose, Nova Meter Collection Time: 06/09/25 12:28 AM Result Value Ref Range POC-GLUCOSE 113 (H) 70 - 110 mg/dL Electric Organ Checker [id number] Glucose, Nova Meter Collection Time: 06/09/25 6:13 AM Result Value Ref Range POC-GLUCOSE 105 70 - 110 mg/dL Electric Organ Checker [id number] Basic Metabolic Panel Collection Time: 06/09/25 7:24 AM Result Value Ref Range Sodium 147 (H) 136 - 145 meq/L Potassium 3.4 3.4 - 5.1 meq/L CO2 35 (H) 22 - 29 meq/L Chloride 102 98 - 112 meq/L Glucose 124 (H) 82 - 115 mg/dL BUN 57.1 (H) 9.8 - 20.1 mg/dL Creatinine 2.50 (H) 0.50 - 1.20 mg/dL BUN/Creatinine 23 (H) 8 - 20 Calcium 9.1 8.4 - 10.2 mg/dL Anion Gap 13 (H) 4 - 12 eGFR (mL/min/1.73m2) 18 (L) >=60 mL/min/1.73m2 Osmolality Calc 309.7 mOsm/kg CBC with automated diff Collection Time: 06/09/25 7:24 AM Result Value Ref Range WBC 5.3 4.0 - 10.0 K/??L RBC 3.25 (L) 3.93 - 5.22 M/??L Hemoglobin 9.2 (L) 11.2 - 15.7 GM/DL Hematocrit 30.0 (L) 34.1 - 44.9 % MCV 92 79 - 95 fL MCH 28.3 25.6 - 32.2 pg MCHC 30.7 (L) 32.2 - 35.5 GM/DL RDW 16.6 (H) 11.7 - 14.4 % Platelets 71 (L) 140 - 375 K/CU MM MPV 11.1 9.4 - 12.3 fL % Neutros 69 34 - 71 % % Lymphs 16 (L) 19 - 52 % % Monos 10 5 - 13 % % Eos 2.5 1.0 - 6.0 % % Baso 0 0 - 1 % NRBC Absolute <0.01 0 - 0.012 K/ul # Neutros 3.65 1.56 - 6.13 K/??L # Lymphs 0.85 (L) 1.18 - 3.74 K/??L # Monos 0.53 0.24 - 0.86 K/??L # Eos 0.13 0.04 - 0.36 K/??L # Baso <0.03 0.01 - 0.08 K/ L % Imm Grans 2.10 (H) 0.01 - 0.43 % # IG 0.11 (H) 0.00 - 0.03 K/uL Magnesium Collection Time: 06/09/25 7:24 AM Result Value Ref Range Magnesium 1.8 1.6 - 2.6 mg/dL Glucose, Nova Meter Collection Time: 06/09/25 11:43 AM Result Value Ref Range POC-GLUCOSE 134 (H) 70 - 110 mg/dL Electric [employer] Checker [id number] Glucose, Nova Meter Collection Time: 06/09/25 5:50 PM Result Value Ref Range POC-GLUCOSE 121 (H) 70 - 110 mg/dL Electric Organ Checker [id number] Glucose, Nova Meter Collection Time: 06/09/25 8:49 PM Result Value Ref Range POC-GLUCOSE 159 (H) 70 - 110 mg/dL Electric Organ Checker [id number] Basic Metabolic Panel Collection Time: 06/10/25 3:43 AM Result Value Ref Range Sodium 143 136 - 145 meq/L Potassium 3.7 3.4 - 5.1 meq/L CO2 32 (H) 22 - 29 meq/L Chloride 102 98 - 112 meq/L Glucose 88 82 - 115 mg/dL BUN 57.3 (H) 9.8 - 20.1 mg/dL Creatinine 2.47 (H) 0.50 - 1.20 mg/dL BUN/Creatinine 23 (H) 8 - 20 Calcium 9.2 8.4 - 10.2 mg/dL Anion Gap 13 (H) 4 - 12 eGFR (mL/min/1.73m2) 19 (L) >=60 mL/min/1.73m2 Osmolality Calc 300.3 mOsm/kg CBC with automated diff Collection Time: 06/10/25 3:43 AM Result Value Ref Range WBC 4.6 4.0 - 10.0 K/??L RBC 3.10 (L) 3.93 - 5.22 M/??L Hemoglobin 8.6 (L) 11.2 - 15.7 GM/DL Hematocrit 28.7 (L) 34.1 - 44.9 % MCV 93 79 - 95 fL MCH 27.7 25.6 - 32.2 pg MCHC 30.0 (L) 32.2 - 35.5 GM/DL RDW 16.6 (H) 11.7 - 14.4 % Platelets 68 (L) 140 - 375 K/CU MM MPV 12.3 9.4 - 12.3 fL % Neutros 64 34 - 71 % % Lymphs 19 19 - 52 % % Monos 12 5 - 13 % % Eos 1.7 1.0 - 6.0 % % Baso 0 0 - 1 % NRBC Absolute <0.01 0 - 0.012 K/ul # Neutros 2.94 1.56 - 6.13 K/??L # Lymphs 0.86 (L) 1.18 - 3.74 K/??L # Monos 0.54 0.24 - 0.86 K/??L # Eos 0.08 0.04 - 0.36 K/??L # Baso <0.03 0.01 - 0.08 K/ L % Imm Grans 4.30 (H) 0.01 - 0.43 % # IG 0.20 (H) 0.00 - 0.03 K/uL Magnesium Collection Time: 06/10/25 3:43 AM Result Value Ref Range Magnesium 1.6 1.6 - 2.6 mg/dL Glucose, Nova Meter Collection Time: 06/10/25 6:05 AM Result Value Ref Range POC-GLUCOSE 83 70 - 110 mg/dL Electric Organ Checker [id number] ECG 12 lead Collection Time: 06/10/25 9:57 AM Result Value Ref Range VENTRICULAR RATE EKG/MIN 56 BPM ATRIAL RATE (MCT) 56 BPM GA Interval 228 ms QRS-INTERVAL (MSEC) 126 ms QT Interval 450 ms QTC Interval 434 ms P [place] 8 degrees R AXIS (MCT) 25 degrees T Wave [place] 0 degrees [place] Diagnosis Sinus bradycardia with 1st degree AV block Right bundle branch block Abnormal ECG When compared with ECG of 07-JUN-2025 07:49, premature supraventricular complexes are no longer present Criteria for Anterior infarct are no longer present Nonspecific T wave abnormality, improved in Lateral leads Glucose, Nova Meter Collection Time: 06/10/25 10:37 AM Result Value Ref Range POC-GLUCOSE 97 70 - 110 mg/dL Electric Organ Checker [id number] Imaging: XR KUB PORTABLE Result Date: 06/08/2025 KUB HISTORY: Corpak tube placement. COMPARISON: Earlier in the same day. FINDINGS: A single view ofthe abdomen/pelvis demonstrates an unremarkable bowel gas pattern. A weighted feeding tube is seen just right of midline. This again likely reflects placement within the second portion of the duodenum. There are no abnormal calcifications are identified over the renal shadows or course of the ureters.. No acute osseous findings. Non-obstructive bowel gas pattern. Weighted feeding tube as described above, with tip again overlying the distal second portion of the duodenum. Images reviewed, interpreted, and dictated by Keyon Levy M.D. XR KUB PORTABLE Result Date: 06/08/2025 KUB HISTORY: Feeding tube placement. COMPARISON: 06/05/2025 FINDINGS: The Corpak feeding tube is identified with the tip in the proximal second portion of the duodenum. The bowel gas pattern is nonspecific. There is no bowel obstruction. Feeding tube tip terminates in the proximal second portion of the duodenum. Images reviewed, interpreted, and dictated by Dr. Elbert Hercules. Transcribed by Valarie Abbott XR chest AP portable Result Date: 06/07/2025 PORTABLE CHEST 06/07/2025 2:27 AM HISTORY: Shortness of breath. COMPARISON: Chest x-ray from approximately 11 hours prior. FINDINGS: The heart is stable in size . There has been interval improvement in the perihilar opacities. Small pleural effusions are stable. There is no pneumothorax . There has been interval improvement . Continued follow up recommended . Images reviewed, interpreted, and dictated by Dr. Marisela Luther. Transcribed by Estela Bueno PA-C. XR chest AP portable Result Date: 06/07/2025 Portable chest HISTORY: Shortness of breath FINDINGS: Comparison date 06/04/2025. An enteric tube has been placed rectum towards the left upper quadrant although tip is not included. There are worsening bibasilar infiltrates. There may be a small right effusion. There are low lung volumes with poorinspiration. Heart size is normal. Worsening bibasilar lung infiltrates, which may represent atelectasis and/or pneumonia. XR KUB PORTABLE Result Date: 06/05/2025 SINGLE VIEW ABDOMEN HISTORY: Feeding tube adjustment. COMPARISON: June 04, 2025. ABDOMEN: Singleview of the abdomen demonstrates a nonspecific bowel gas pattern. No abnormal calcifications are identified. There is a feeding tube identified with the tip at the junction of the second and third portion of the duodenum. Nonspecific bowel gas pattern. Feeding tube tip terminates at the junction of the second and third portion of the duodenum. Images reviewed, interpreted, and dictated by Dr. Lino Main. Transcribed by Estela Bueno PA-C. CT CHEST WITHOUT IV CONTRAST Result Date: 06/05/2025 CT SCAN OF THE CHEST WITHOUT CONTRAST 06/05/2025 10:51 AM HISTORY: Pneumonia, unresolved. PROCEDURE: Axial CT images were obtained from the lung apex to the mid abdomen without IV contrast. Coronal and sagittal reformatted images generated from the axial data set and provided for interpretation. This study was performed with techniques to keep radiation doses as low as reasonably achievable, (ALARA). Individualized dose reduction techniques using automated exposure control or adjustment of mA and/or kV according to the patient size were employed. COMPARISON: None. FINDINGS: CHEST: Lack of IV contrast somewhat limits evaluation of the thoracic viscera. Lungs/Pleura: There is severe emphysema. There is severe bronchial wall thickening in the bilateral mid and lower lung zones. Patchy peribronchial consolidations are consistent with bronchopneumonia. There is superimposed atelectasis. No pneumothorax or pleural effusion. Heart, vessels and mediastinum: The heart is normal in size. No erika cardial effusion. There is enlargement of the pulmonary arteries, at to 42 mm. This is consistent with pulmonary arterial hypertension. Coronary artery disease is present. Lymph nodes: No pathologically enlarged thoracic lymph nodes within the limits of a noncontrast-enhanced examination. Chest wall: No acute findings. Bones: No acute fracture. Upper abdomen: Gallbladder is distended with gallstones. There is no evidence of acute cholecystitis. A feeding tube is in place. Bronchopneumonia with superimposed atelectasis. Images reviewed, interpreted, and dictated by Dr. Lino Main. Transcribed by Estela Bueno PA-C. XR KUB PORTABLE Result Date: 06/04/2025 KUB 06/04/2025 2:50 PM HISTORY: Feeding tube placement. COMPARISON: None. FINDINGS: A single view of the abdomen was performed. The feeding tube is identified below the diaphragm at the junction of the second and third portions of duodenum. There is a nonspecific, nonobstructive bowel gas pattern. Corpak feeding tube tip terminates in the second and third portions of duodenum. Images reviewed, interpreted, and dictated by Dr. Matt Lund. Transcribed by Marzena Menendez PA-C. Ultrasound renal limited Result Date: 06/04/2025 RENAL ULTRASOUND HISTORY: Acute kidney injury. PROCEDURE: Ultrasound images of the kidneys were obtained. FINDINGS: Limited images of the liver parenchyma demonstrate normal echogenicity . There are gallstones within the gallbladder. The right kidney measures 10 cm in length. It is normal echogenicity . There is no hydronephrosis . The left kidney measures 11 cm in length. It is normal echogenicity . There is no hydronephrosis . Normal renal ultrasound . Images reviewed, interpreted, and dictated by Dr. Marisela Luther. Transcribed by Maryam Duran PA-C. 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 HR: 60 bpmPatient Status: Routine IP Study Location: [facility] Quality: Adequate visualization History/Tech Notes: Indication: altered mental status R40.4 Impression: Definity ultrasound enhancing agent administered for endocardial border definition. ######################################## Normal sized left ventricle. Mild left ventricular hypertrophy. Visually estimated ejection fraction 55% +/- 5%. Normal left ventricular systolic function with normal systolic strain pattern. Normal left ventricular diastolic function. Normal right ventricular size and function. No hemodynamically significant valvular heart disease. ######################################## Measurements Summary: LVEDd: 3.77 cm LVESd: 2.47 cm IVSEd: 1.28 cm AO Root:3.08 cm LVPWd: 0.8 cm Contractility Score Normal Left Ventricular contractility was noted. LV regional wall motion: (0-Not visualized 1-Normal 2-Hypokinesis 3-Akinesis 4- Dyskinesis 5-Aneurysm) Left Ventricle Peak E-wave: 0.97 Peak A-wave: 1.16 m/s E/A ratio: 0.83 m/s Volume [id number] LV length: 7.95 cm CO: 5.84 l/min ml CI: 2.95 l/min*m^2 Volume .77 ml LVOT diameter: 2.11 cm Normal sized l eft ventricle. Mild left ventricular hypertrophy. Visually estimated ejection fraction 55% +/- 5%. Normal left ventricular systolic function with normal systolic strain pattern. Normal left ventricular diastolic function. No left ventricular masses or thrombi. Right Ventricle Diastolic dimension: 3.39 RV systolic pressure: 24.99 mmHg cm Normal sized right ventricle. Normal TAPSE c/w normal right ventricular function Left Atrium LA dimension: 3.85 cm LA volume:48.99 ml LA/Aorta: 1.25 Normal sized left atrium. Normal left atrial volume index 24.74 ml/m^2. Intact atrial septum. No atrial mass orthrombus. Right Atrium Abnormal right atrial size. Intact atrial septum. No atrial mass or thrombus. Mitral Valve Deceleration time: Mean velocity: 0.8 178.78 msec Area (continuity): m/s 2.95 cm^2 Mean gradient: 2.84 mmHg Peak gradient: 6.38 mmHg Structurally normal mitral valve. Mitral valve annulus calcification. Mild (1+) mitral regurgitation. No mitral stenosis. No masses or vegetations seen.Aortic Valve LVOT VTI: 27.84 cm Mildly thickend free edges of the aortic valve leaflets. Trace aortic valve regurgitation. No aortic stenosis. No masses or vegetations seen. Tricuspid Valve TR velocity: 2.06 m/s TR gradient: 16.47109 mmHg Estimated RAP: 8 mmHg RVSP: 24.99 mmHg Structurally normal tricuspid valve. Trace tricuspid regurgitation. No tricuspid stenosis. No masses or vegetations seen.Pulmonic Valve Acceleration time: 74.22 msec PASP: 24.99 mmHg Structurally normal pulmonic valve. Abnormal pulmonary acceleration time. Trace pulmonic valve regurgitation. No pulmonic stenosis. No masses or vegetations seen. Great Vessels Aorta Aortic Root: 3.08 cm Ascending Aorta: 3.12 cm LVOT Diameter: 2.11 cm Visualized thoracic aorta is normal. Normal aortic root. No evidence of dissection. Dilated IVC with partial inspiratory collapse. Borderline elevated central venous pressure (8-12mmHg). Pericardium / Pleura No pericardial effusion. XR chest AP portable Result Date: 06/04/2025 PORTABLE CHEST 06/04/2025 9:06 AM HISTORY: Acute shortness of breath COMPARISON: 6 hours prior FINDINGS: The heart is mildly enlarged. The mediastinum is unremarkable. Lungs are underinflated with chronic changes throughout both lungs. There is bibasilar atelectasis. There is no pneumothorax. The osseous structures are unremarkable. No acute cardiopulmonary process. Images reviewed, interpreted, and dictated by Dr. Matt Lund. Transcribed by Marzena Menendez PA-C. XR chest AP portable Result Date: 06/04/2025 PORTABLE CHEST 06/04/2025 1:44 AM HISTORY: Acute shortness of breath. COMPARISON: May 18, 2020. FINDINGS: The heart is normal in size . The mediastinum is unremarkable . Lungs are underinflatedwith mild chronic changes in the bases. There is no pneumothorax . No acute cardiopulmonary process . Images reviewed, interpreted, and dictated by Dr. Matt Lund. Transcribed by Pal Cosby PA-C Assessment: Acute kidney injury likely ATN on stage III CKD Hyperkalemia, resolved HAG Metabolic acidosis Uremic and Lactic, resolved Encephalopathy, likely metabolic Thrombocytopenia H/o essential HTN Type II DM Obesity Chronic hypoxemic respiratory failure BRIDGETTE Pneumonia Hypernatremia, resolved Plan: -Renal function slowly improving. -Hypernatremia resolved with Increased free water and short trial of hypotonic solution. -Hyperkalemia and Metabolic acidosis had resolved -Held home meds Irbesartan, Spironolactone, Metformin, and Farxiga. -Renal US was normal -Avoidance of nephrotoxins -Renal dosing of meds -Follow renal function, electrolytes, I/O, and acid base status very closely -Further management of other medical problems is per primary team and other specialities Thank you for this interesting consultation. Please do not hesitate to contact me with any questionor concern regarding this patient at [phone]. * Charity Steiner MD - 06/10/2025 11:15 AM EDT HOSPITALIST PROGRESS NOTE Patient: Kirstie Pope New Date: 06/10/2025 Subjective Date of Service: 06/10/2025 Patient seen this morning on the floor. She states she is feeling okay. No chest pain, no significant shortness of breath. She is on 4 L of oxygen, hemodynamically stable and afebrile. Review of Systems Constitutional: Negative for chills and fever. Respiratory: Negative for cough and shortness of breath. Cardiovascular: Negative for chest pain and palpitations. Gastrointestinal: Negative for abdominal pain, diarrhea and vomiting. Musculoskeletal: Negative for myalgias. Neurological: Negative for weakness and headaches. Objective Vitals: Temp: [97.3 ??F (36.3 ??C)-98.2 ??F (36.8 ??C)] 98.1 ??F (36.7 ??C) Pulse: [58-154] 74 Resp: [14-32] 17 BP: (121-158)/(56-82) 135/65 Intake/Output: Intake/Output Summary (Last 24 hours) at 06/10/2025 1115 Last data filed at 06/09/2025 1800 Gross per 24 hour Intake 1000 ml Output 4 ml Net 996 ml Physical exam: Physical Exam Constitutional: Appearance: Normal appearance. HENT: Head: Normocephalic. Eyes: Conjunctiva/sclera: Conjunctivae normal. Cardiovascular: Rate and Rhythm: Normal rate. Rhythm irregular. Heart sounds: No murmur heard. Pulmonary: Effort: No respiratory distress. Breath sounds: Normal breath sounds. No wheezing. Abdominal: General: Bowel sounds are normal. Palpations: Abdomen is soft. Tenderness: There is no abdominal tenderness. Musculoskeletal: General: No swelling or deformity. Skin: General: Skin is warm and dry. Findings: No lesion or rash. Neurological: General: No focal deficit present. Mental Status: She is alert and oriented to person, place, and time. Psychiatric: Mood and Affect: Mood normal. Behavior: Behavior normal. Pertinent Recent Radiology: CT chest 06/05: Bronchopneumonia TTE 06/04: EF 55%, normal diastolic function, no significant VHD KUB 06/08: Nonobstructive bowel gas pattern Assessment and Plan #RICHIE on suspected CKD stage III Baseline GFR unknown Nephrology following Hold home ARB, metformin, Farxiga, spironolactone BUN stable at 57, creatinine better at 2.4 Order BMP for a.m. #Acute on chronic respiratory failure Currently on 4 L of oxygen, wears 3 L at home Likely due to volume overload Pulmonology following Respiratory panel negative S/p empiric aztreonam, doxycycline #Paroxysmal A-fib--resolved I do not see any previous diagnosis in the chart Related to hypoxia? Echo with no significant VHD [id number] score elevated at 5, however, since this seems to be a one-off, will not initiate any anticoagulation Metoprolol 50 mg daily EKG reviewed with sinus bradycardia rate 56, first-degree AV block Continue to monitor on telemetry #Hypernatremia--resolved Sodium down to 143 D5W Order BMP for a.m. #Dysphagia--resolved Speech therapy following: Regular solids, thin liquids #UTI 21-50 WBCs, 1+ bacteria Culture not sent? Completed empiric antibiotics #Acute metabolic encephalopathy-/resolved Head CT at OSH reportedly unremarkable Could be multifactorial relating to electrolyte disturbances, UTI #Chronic thrombocytopenia, anemia Platelets low at 68, hemoglobin down to 8.6 No obvious signs of blood loss Will monitor Follow-up with heme-onc #Hypomagnesemia Mag low at 1.6 Replace and repeat lab in a.m. Code Status: Current Code Status Full Code Discharge Planning: Barriers to discharge/reason for continued hospitalization: Monitoring improvement in labs, workingon confirmation for facility Expected (tentative) discharge in: 1-2 days Expected discharge disposition: Isaías Moralez Additional discharge needs: Follow-up with nephrology, PCP, heme-onc Signed: Charity Steiner MD 06/10/2025, 2:46 PM * Chaplain Rosa - 06/09/2025 4:05 PM EDT Spiritual Care Progress Note 06/09/25 1604 Clinical Encounter Type Visited With Patient Routine Visit Introduction Crisis Visit Critical care Referral From Cafe Assistant (Claude) Consult Patient care Orthodox Encounters Orthodox Needs Prayer Comments: Routine visit with Ms. Nascimento; Provided reflective and compassionate listening; Alyson is a significant resource; Ms. Nascimento shared all of her relatives have ; Friend, Mia, is appropriate to make decisions, if Ms. Nascimento can't based [place] [phone]; Provided pastoral prayer upon request; Ms. Nascimento expressed gratitude Chaplain Rosa 06/09/2025 4:05 PM * Brea Banks, PT - 06/09/2025 3:30 PM EDT Images from the original note were not included. Inpatient Physical Therapy Treatment Patient Name: Kirstie Nascimento Date of : 1940 Date of Treatment: 06/09/25 Start Time 1452 Stop Time 1517 Session Duration 25 minutes General Visit Type: Treatment Approved by: Nurse Selby Patient Disposition Upon Entry: Supine in bed, Call Light/Pull Cord in reach, All needs met and within reach, Nursing aware/notified, HOB >30 degrees, Side rails up Patient Verified By: Name and Date of Assisted by: pharmacy technician trainee Precautions Weight-Bearing Status: No Restrictions Precautions: Fall risk Isolation Precautions: Standard Lines, tubes, drains, airway: nasal cannula , nasogastric feeding tube, peripheral IV, Purewick, telemetry Subjective Subjective: Patient agreeable to physical therapy treatment. Pain No - Patient not reporting pain at this time Cognition Orientation Level: Oriented x4 Following commands: Follows all commands and directions without difficulty Objective Vitals Heart rate 63 bpm O2 sat : 97% on 4 L O2 nasal cannula Functional Mobility Bed Mobility: Supine to Sit: moderate assistance, 2-person assist, HOB elevated, use of bed features Sit to Supine: moderate assistance, 2-person assist, HOB flat Transfers Unable to assess due to deconditioning, fatigue, and weakness. Gait Not assessed this date due to Pt fatigued from recent transfer to floor room 582 from CCU. Pt reports she mainly transfers to w/c and does not ambulate except a few steps during transfer Stair Management Not addressed today. Focus of treatment today on strengthening exercises and improving activity tolerance. Wheelchair Mobility Not addressed today. Focus of treatment today on strengthening exercises and improving activity tolerance. AM-PAC Basic Mobility Inpatient Short Form How much difficulty does the patient currently have: Turning over in bed (including adjusting bedclothes, sheets, and blankets)? (1) Total/Unable (not able to do the activity or can only perform the activity using assistive devices or requires assistance from another person, including supervision or cueing for safety) Sitting down on and standing up from a chair with arms (e.g., wheelchair, bedside commode, etc.)? (1) Total/Unable (not able to do the activity or can only perform the activity using assistive devices or requires assistance from another person, including supervision or cueing for safety) Moving from lying on back to sitting on side of bed? (1) Total/Unable (not able to do the activity or can only perform the activity using assistive devices or requires assistance from another person,including supervision or cueing for safety) How much help from another person does the patient currently need: Moving to and from a bed to a chair (including a wheelchair)? (2) A lot (Maximal/Moderate assist) Need to walk in hospital room? (1) Total/Unable (Total assist/dependent) Climbing 3-5 steps with a railing? (1) Total/Unable (Total assist/dependent) Score Raw score=7 t-scale score=26.42 Standard error=4.33 [facility] 0-100%=92.36% MDC=4.72 A raw score of >= 16 is significantly associated with increased odds of discharge to home in addition to consideration made for the patient's cognition and social determinants of health. Balance Static/dynamic sitting and static/dynamic standing balance grades Balance Grade Sitting Static Fair - patient able to maintain balance with handhold support; may require occasional minimal assistance Sitting Dynamic Fair - patient accepts minimal challenge; able to maintain balance while turning head/trunk Standing Static Not tested Standing Dynamic Not tested Activity Tolerance Patient limited with activity/intervention due to fatigue, deconditioning, and weakness Treatment Pt was mod asst of 2 for supine-sit to EOB Pt found to have Purewick not attached to wall suction with PT tech obtaining canister and hooking purewick tubing to suction Pt was facilitated with therex of AP, LAQ's, and B UE reaching activity with min ast for dynamic sitting balance Pt fatigued with EOB activity and due to recent transfer to floor with pt declining transfer to chair at this time Pt was able to scoot laterally using B UE tricep depressions with mod asst x 3 reps toward HOB Pt was mod asst of 2 for return supine and total asst to scoot to HOB Pt positioned for comfort with needs in reach and nsg notified of pt status Assessment Patient presenting with decreased activity tolerance, generalized weakness with functional activities, impaired dynamic balance with transfers, shortness of air with physical activity, and fatigue with physical exertion. These functional limitations put the patient at an increased risk for loss of independence with functional mobility and activities of daily living, falling, caregiver burden, anddeconditioning. Pt was cooperative with sitting EOB and therex but too fatigued to attempt transferat this time. Patient would benefit from skilled physical therapy services during length of stay for strengthening, balance training to decrease risk of falling, endurance training to improve activity tolerance, transfer training, and progression of mobility. Problems: Decreased core stability, Decreased functional mobility, Decreased gait tolerance, Decreased strength, Decreased activity tolerance, Impaired sitting balance, Impaired standing balance, Impaired dynamic balance Rehab potential: Good for stated goals Plan Treatment plan: Continue per POC. PT Frequency/Duration: 5x/week for 14 days Recommendations Discharge recommendations: Patient would benefit from 1-2 hours of multidisciplinary therapy per day upon discharge from acute care setting to assist with returning to prior level of functioning. DME recommendations: Unable to make recommendations at this time. Goals [id number]: By the target date, patient will perform [id number]-qy-ecg with contact guard assistance, utilizing no assistive device, to improve independence with bed mobility. [id number]: By the target date, patient will perform sit to stand with contact guard assistance and rolling walker to improve independence with functional mobility. Transfer: By the target date, patient will perform stand-pivot transfer to a bedside commode, recliner chair, or wheelchair with stand by assistance and utilizing rolling walker, demonstrating ability to safely transfer while in hospital setting to improve independence with functional mobility. Gait: Patient will ambulate 100' with minimal assistance and utilizing rolling walker in order to increase independence with ambulation and improve balance with ambulation and decrease risk of falling Target Date: 06/20/2025 Progress towards goals: progressing Education Patient educated on safety, use of call button, role of physical therapy, plan of care, and therapeutic exercise and following, they were able to verbalize understanding. No further questions or concerns stated. Interdisciplinary Communication Following treatment, therapist communicated with nursing regarding patient's performance during physical therapy session and regarding patient's level of assistance needed during transfers for nursing mobility. Patient Disposition Upon Leaving Supine in bed, Call Light/Pull Cord in reach, All needs met and within reach, Nursing aware/notified, HOB >30 degrees, Side rails up If this patient discharges prior to next therapy session, this note serves as the patient's discharge summary. Electronically signed by Brea Banks PT - 06/09/25 - 3:30 PM EDT * Charity Steiner MD - 06/09/2025 2:22 PM EDT HOSPITALIST PROGRESS NOTE Patient: Kirstie Nascimento Date: 06/09/2025 Subjective Date of Service: 06/09/2025 Patient seen this morning in the ICU. She knows that she is in the hospital but does not know the month. She has some confusion as to why she is here. She is currently in A-fib, rate controlled. Denies chest pain or shortness of breath. She is on 4 L of oxygen Review of Systems Constitutional: Negative for chills and fever. Respiratory: Negative for cough and shortness of breath. Cardiovascular: Negative for chest pain and palpitations. Gastrointestinal: Negative for abdominal pain, diarrhea and vomiting. Musculoskeletal: Negative for myalgias. Neurological: Negative for weakness and headaches. Objective Vitals: Temp: [97.7 ??F (36.5 ??C)-98.6 ??F (37 ??C)] 97.8 ??F (36.6 ??C) Pulse: [58-154] 65 Resp: [10-32] 32 BP: (120-172)/(57-94) 126/60 Intake/Output: Intake/Output Summary (Last 24 hours) at 06/09/2025 1422 Last data filed at 06/09/2025 0600 Gross per 24 hour Intake 500 ml Output 1200 ml Net -700 ml Physical exam: Physical Exam Constitutional: Appearance: Normal appearance. HENT: Head: Normocephalic. Eyes: Conjunctiva/sclera: Conjunctivae normal. Cardiovascular: Rate and Rhythm: Normal rate. Rhythm irregular. Heart sounds: No murmur heard. Pulmonary: Effort: No respiratory distress. Breath sounds: Normal breath sounds. No wheezing. Abdominal: General: Bowel sounds are normal. Palpations: Abdomen is soft. Tenderness: There is no abdominal tenderness. Musculoskeletal: General: No swelling or deformity. Skin: General: Skin is warm and dry. Findings: No lesion or rash. Neurological: General: No focal deficit present. Mental Status: She is alert. She is disoriented. Psychiatric: Mood and Affect: Mood normal. Behavior: Behavior normal. Pertinent Recent Radiology: CT chest 06/05: Bronchopneumonia TTE 06/04: EF 55%, normal diastolic function, no significant VHD KUB 06/08: Nonobstructive bowel gas pattern Assessment and Plan #RICHIE on suspected CKD stage III Baseline GFR unknown Nephrology following Hold home ARB, metformin, Farxiga, spironolactone BUN down to 57, creatinine better at 2.5 Order BMP for a.m. #Acute on chronic respiratory failure Currently on 4 L of oxygen, wears 3 L at home Likely due to volume overload Pulmonology following Respiratory panel negative Pulmonology started antibiotics: Aztreonam day 6, doxycycline day 7 Okay to move out of the ICU #A-fib, rate controlled I do not see any previous diagnosis in the chart Related to hypoxia? Echo with no significant VHD [id number] score elevated at 5, if she does not convert with resumption of her home beta-clarence then will need to initiate anticoagulation Metoprolol 50 mg daily Order EKG #Hypernatremia Sodium down to 147 D5W Order BMP for a.m. #Dysphagia Speech therapy following: Regular solids, thin liquids #UTI 21-50 WBCs, 1+ bacteria Culture not sent? Continue IV antibiotics, monitoring for toxicity #Acute metabolic encephalopathy Head CT at OSH reportedly unremarkable Could be multifactorial relating to electrolyte disturbances, UTI #Thrombocytopenia Platelets better at 71 Will monitor #Hyperkalemia--resolved Hold home spironolactone Code Status: Current Code Status Full Code Discharge Planning: Barriers to discharge/reason for continued hospitalization: Patient still confused but better, abnormal electrolytes. Weaning oxygen. Work with PT. Okay to transfer out of the ICU Expected (tentative) discharge in: 2 to 3 days Expected discharge disposition: [facility] Additional discharge needs: Follow-up with nephrology, PCP Signed: Charity Steiner MD 06/09/2025, 2:46 PM * Holger Mishra MD - 06/09/2025 1:04 PM EDT Images from the original note were not included. Subjective: Patient was seen and examined with all infection control measures. SOB improved, more alert. Hospital Course: Kirstie Nascimento is an 84 y.o. female with PMHx of stage III CKD, DM 2, HTN, Asthma, Chronic Respiratory Failure, Arthritis, who was transferred from outside hospital after she presented there from nursing facility due to fal and altered mental status. Initial workup showed RICHIE. CXR showed patchy infiltrate R mid to lower lung. Pt was given hyperkalemia protocol and was transferred to [facility] for renal evaluation. Patient is very poor historian and unable to provide reliable history. Allergies: Azithromycin, Ceftriaxone, and Pollen Extracts Home Medications: Prior to Admission medications Medication Sig Start Date End Date Taking? Authorizing Provider calcium carbonate (OS-ERASMO) 600 mg calcium (1,500 mg) Take 600 mg by mouth daily. Yes Historical Provider, cyanocobalamin 1000 MCG tablet Take 1 tablet (1,000 mcg total) by mouth daily. Yes Historical Provider, dapagliflozin propanediol (Farxiga) 10 mg tablet Take 1 tablet (10 mg total) by mouth daily. Yes Historical Provider, escitalopram (LEXAPRO) 20 MG tablet Take 1 tablet (20 mg total) by mouth daily. Yes Historical Provider, esomeprazole (NexIUM) 40 MG capsule Take 1 capsule (40 mg total) by mouth Daily (0600). Yes Historical Provider, famotidine (PEPCID) 20 MG tablet Take 2 tablets (40 mg total) by mouth once at bedtime. Yes Historical Provider, fluticasone propion-salmeteroL (ADVAIR) 250-50 mcg/dose diskus inhaler Inhale 1 puff by mouth 2 (two) times daily. Yes Historical Provider, furosemide (LASIX) 40 MG tablet Take 1 tablet (40 mg total) by mouth daily. Yes Historical Provider, ipratropium-albuteroL (DUO-NEB) 0.5 mg-3 mg(2.5 mg base)/3 mL nebulizer solution Inhale 3 mLs by nebulization every 6 (six) hours as needed for wheezing. Yes Historical Provider, irbesartan (AVAPRO) 300 MG tablet Take 1 tablet (300 mg total) by mouth nightly. Yes Historical Provider, loperamide (IMODIUM) 2 mg capsule Take 1 capsule (2 mg total) by mouth 4 (four) times daily as needed for diarrhea. Yes Historical Provider, metFORMIN (GLUCOPHAGE) 500 MG tablet Take 1 tablet (500 mg total) by mouth 2 (two) times daily withbreakfast and dinner Look-alike/Sound-alike medication. Yes Historical Provider, metoprolol succinate (TOPROL-XL) 50 MG 24 hr tablet Take 1 tablet (50 mg total) by mouth daily. YesHistorical Provider, montelukast (SINGULAIR) 10 mg tablet Take 1 tablet (10 mg total) by mouth nightly. Yes Historical Provider, multivitamin per tablet Take 1 tablet by mouth daily. Yes Historical Provider, oxybutynin (DITROPAN) 5 MG tablet Take 4 tablets (20 mg total) by mouth daily. Yes Historical Provider, pregabalin (LYRICA) 75 MG capsule Take 1 capsule (75 mg total) by mouth 2 (two) times daily. Max Daily Amount: 150 mg Yes Historical Provider, simvastatin (ZOCOR) 20 MG tablet Take 1 tablet (20 mg total) by mouth nightly. Yes Historical Provider, spironolactone (ALDACTONE) 50 MG tablet Take 1 tablet (50 mg total) by mouth daily. Yes Historical Provider, TiZANidine (ZANAFLEX) 2 MG capsule Take 1 capsule (2 mg total) by mouth once at bedtime. Yes Historical Provider, Current Medications: Current Facility-Administered Medications: acetaminophen (TYLENOL) tablet 650 mg, 650 mg, oral, Q6H PRN, Sima Mancia MD amLODIPine (NORVASC) tablet 5 mg, 5 mg, oral, Daily, Bela Abel MD, 5 mg at 06/09/25 0812 atorvastatin (LIPITOR) tablet 10 mg, 10 mg, oral, Daily, Charity Steiner MD, 10 mg at 06/09/25 1139 aztreonam (AZACTAM) 1 g in sodium chloride 0.9 % (NS) MBP IVPB, 1 g, intravenous, Q12H, Bela Abel MD, Last Rate: 0 mL/hr at 06/09/25 0048, 1 g at 06/09/25 1033 budesonide (PULMICORT) nebulizer suspension 0.5 mg, 0.5 mg, nebulization, 2 times daily, Sima Mancia MD, 0.5 mg at 06/09/25 0806 cyanocobalamin tablet 1,000 mcg, 1,000 mcg, oral, Daily, Charity Steiner MD, 1,000 mcg at 06/09/25 1139 dextrose 5 % infusion, 100 mL/hr, intravenous, Continuous, Holger Mishra MD, Last Rate: 75 mL/hr at 06/08/25 0627, 75 mL/hr at 06/08/25 0627 dextrose 50% (D50W) injection 25 g, 25 g, intravenous, Q15 Min PRN, Sima Mancia MD escitalopram (LEXAPRO) tablet 20 mg, 20 mg, oral, Daily, Charity Steiner MD, 20 mg at 06/09/25 1139 famotidine (PEPCID) tablet 20 mg, 20 mg, oral, Daily, Sima Mancia MD, 20 mg at 06/09/25 0812 glucagon injection 1 mg, 1 mg, intraMUSCULAR, Q15 Min PRN, Sima Mancia MD glucose chew tab 16 g, 16 g, oral, Q15 Min PRN, Sima Mancia MD heparin injection 5,000 Units, 5,000 Units, subcutaneous, Q8H, Octavio Odell MD, 5,000 Units at 06/09/25 1222 hydrALAZINE (APRESOLINE) injection 10 mg, 10 mg, intravenous, Q6H PRN, Sima Mancia MD, 10 mg at 06/07/25 2121 insulin regular (HUMULIN R,NOVOLIN R) injection, 0-6 Units, subcutaneous, Q6H [facility], Stan Robles PA-C, 2 Units at 06/07/25 0025 ipratropium-albuteroL (DUO-NEB) 0.5 mg-3 mg(2.5 mg base)/3 mL nebulizer solution 3 mL, 3 mL, nebulization, 2 times daily, Sima Mancia MD, 3 mL at 06/09/25 0805 metoprolol succinate (TOPROL-XL) 24 hr tablet 50 mg, 50 mg, oral, Daily, Charity Steiner MD, 50 mg at 06/09/25 1139 montelukast (SINGULAIR) tablet 10 mg, 10 mg, oral, Every Night, Charity Steiner MD multivitamin (THERAGRAN) tablet 1 tablet, 1 tablet, oral, Daily, Charity Steiner MD, 1 tablet at 06/09/25 1139 ondansetron (ZOFRAN) injection 4 mg, 4 mg, intravenous, Q6H PRN, Sima Mancia MD oxybutynin (DITROPAN) tablet 20 mg, 20 mg, oral, Daily, Charity Steiner MD, 20 mg at 06/09/25 1139 polyethylene glycol (GLYCOLAX) packet 17 g, 17 g, oral, Daily PRN, Sima Mancia MD polyethylene glycol (GLYCOLAX) packet 17 g, 17 g, oral, Daily, Octavio Odell MD, 17 g at 06/07/25 0842 pregabalin (LYRICA) capsule 75 mg, 75 mg, oral, BID, Charity Steiner MD, 75 mg at 06/09/25 1139 Saccharomyces boulardii (FLORASTOR) capsule 250 mg, 250 mg, oral, BID, Sima Mancia MD, 250 mg at 06/09/25 0812 sennosides-docusate sodium (SENOKOT S) 8.6-50 mg tablet 1 tablet, 1 tablet, oral, BID PRN, Sima Mancia MD sodium polystyrene sulf-sorbtL 15-20 gram/60 mL suspension 60 g, 60 g, oral, Once, Holger Mishra MD Review of Systems Unable to perform ROS: Mental status change Vitals Blood pressure 134/62, pulse 68, temperature 98.1 ??F (36.7 ??C), temperature source Axillary, resp. rate 18, height 1.702 m (5' 7 ), weight 86.7 kg (191 lb 2.2 oz), SpO2 98%. Physical Exam Vitals and nursing note reviewed. Constitutional: Appearance: She is normal weight. She is ill-appearing. HENT: Head: Normocephalic and atraumatic. Nose: Nose normal. Mouth/Throat: Pharynx: Oropharynx is clear. Eyes: Extraocular Movements: Extraocular movements intact. Conjunctiva/sclera: Conjunctivae normal. Pupils: Pupils are equal, round, and reactive to light. Cardiovascular: Rate and Rhythm: Normal rate. Rhythm irregular. Pulses: Normal pulses. Heart sounds: Normal heart sounds. Pulmonary: Effort: Pulmonary effort is normal. Breath sounds: Rhonchi and rales present. Abdominal: General: Abdomen is flat. Bowel sounds are normal. Palpations: Abdomen is soft. Musculoskeletal: General: Normal range of motion. Cervical back: Normal range of motion and neck supple. Right lower leg: Edema present. Left lower leg: Edema present. Skin: General: Skin is warm and dry. Neurological: General: No focal deficit present. Mental Status: She is alert. Mental status is at baseline. She is disoriented. Psychiatric: Behavior: Behavior normal. Labs: Recent Results (from the past 72 hours) Glucose, Nova Meter Collection Time: 10/12/25 4:38 PM Result Value Ref Range POC-GLUCOSE 134 (H) 70 - 110 mg/dL Electric [employer]er [id number] ECG 12 lead Collection Time: 06/06/25 8:45 PM Result Value Ref Range SYSTOLIC BLOOD PRESSURE (MCT) 135 mmHg DIASTOLIC BLOOD PRESSURE (MCT) 62 mmHg VENTRICULAR RATE EKG/MIN 74 BPM ATRIAL RATE (MCT) 61 BPM QRS-INTERVAL (MSEC) 140 ms QT Interval 402 ms QTC Interval 446 ms R AXIS (MCT) 25 degrees T Wave [place] 39 degrees [place] Diagnosis Atrial fibrillation Right bundle branch block Abnormal ECG When compared with ECG of 06-JUN-2025 07:24, No significant change was found Confirmed by Mo Peter ([id number]) on 06/07/2025 8:46:00 PM Glucose, Nova Meter Collection Time: 06/07/25 12:06 AM Result Value Ref Range POC-GLUCOSE 160 (H) 70 - 110 mg/dL [employer] [id number] Basic Metabolic Panel Collection Time: 06/07/25 4:23 AM Result Value Ref Range Sodium 147 (H) 136 - 145 meq/L Potassium 4.0 3.4 - 5.1 meq/L CO2 32 (H) 22 - 29 meq/L Chloride 103 98 - 112 meq/L Glucose 121 (H) 82 - 115 mg/dL BUN 66.4 (H) 9.8 - 20.1 mg/dL Creatinine 3.64 (H) 0.57 - 1.11 mg/dL BUN/Creatinine 18 8 - 20 Calcium 8.5 8.4 - 10.2 mg/dL Anion Gap 16 (H) 4 - 12 eGFR (mL/min/1.73m2) 12 (L) >=60 mL/min/1.73m2 Osmolality Calc 312.9 mOsm/kg CBC with automated diff Collection Time: 06/07/25 4:23 AM Result Value Ref Range WBC 4.4 4.0 - 10.0 K/??L RBC 2.92 (L) 3.93 - 5.22 M/??L Hemoglobin 8.2 (L) 11.2 - 15.7 GM/DL Hematocrit 27.4 (L) 34.1 - 44.9 % MCV 94 79 - 95 fL MCH 28.1 25.6 - 32.2 pg MCHC 29.9 (L) 32.2 - 35.5 GM/DL RDW 17.0 (H) 11.7 - 14.4 % Platelets 61 (L) 140 - 375 K/CU MM MPV 11.3 9.4 - 12.3 fL % Neutros 73 (H) 34 - 71 % % Lymphs 13 (L) 19 - 52 % % Monos 10 5 - 13 % % Eos 2 1 - 6 % % Baso 0 0 - 1 % NRBC Absolute <0.01 0 - 0.012 K/ul # Neutros 3.20 1.56 - 6.13 K/??L # Lymphs 0.59 (L) 1.18 - 3.74 K/??L # Monos 0.43 0.24 - 0.86 K/??L # Eos 0.10 0.04 - 0.36 K/??L # Baso <0.03 0.01 - 0.08 K/ L % Imm Grans 1.40 (H) 0.01 - 0.43 % # IG 0.06 (H) 0.00 - 0.03 K/uL Magnesium Collection Time: 06/07/25 4:23 AM Result Value Ref Range Magnesium 1.7 1.6 - 2.6 mg/dL Glucose, Nova Meter Collection Time: 06/07/25 6:21 AM Result Value Ref Range POC-GLUCOSE 119 (H) 70 - 110 mg/dL [employer] [id number] ECG 12 lead Collection Time: 06/07/25 7:49 AM Result Value Ref Range SYSTOLIC BLOOD PRESSURE (MCT) 120 mmHg DIASTOLIC BLOOD PRESSURE (MCT) 85 mmHg VENTRICULAR RATE EKG/MIN 69 BPM ATRIAL RATE (MCT) 69 BPM GA Interval 220 ms QRS-INTERVAL (MSEC) 132 ms QT Interval 406 ms QTC Interval 435 ms P [place] 63 degrees R AXIS (MCT) 60 degrees T Wave [place] 82 degrees [place] Diagnosis Sinus rhythm with 1st degree AV block with premature supraventricular complexes Right bundle branch block Abnormal ECG When compared with ECG of 06-JUN-2025 20:45, Sinus rhythm has replaced Atrial fibrillation Confirmed by Mo Peter ([id number]) on 06/07/2025 8:58:06 PM Glucose, Nova Meter Collection Time: 06/07/25 11:29 AM Result Value Ref Range POC-GLUCOSE 132 (H) 70 - 110 mg/dL [employer] [id number] Glucose, Nova Meter Collection Time: 06/07/25 5:44 PM Result Value Ref Range POC-GLUCOSE 127 (H) 70 - 110 mg/dL Electric [employer]er [id number] Glucose, Nova Meter Collection Time: 06/07/25 11:40 PM Result Value Ref Range POC-GLUCOSE 94 70 - 110 mg/dL [employer] [id number] Basic Metabolic Panel Collection Time: 06/08/25 2:55 AM Result Value Ref Range Sodium 152 (HH) 136 - 145 meq/L Potassium 3.7 3.4 - 5.1 meq/L CO2 33 (H) 22 - 29 meq/L Chloride 106 98 - 112 meq/L Glucose 94 82 - 115 mg/dL BUN 62.9 (H) 9.8 - 20.1 mg/dL Creatinine 3.01 (H) 0.57 - 1.11 mg/dL BUN/Creatinine 21 (H) 8 - 20 Calcium 8.9 8.4 - 10.2 mg/dL Anion Gap 17 (H) 4 - 12 eGFR (mL/min/1.73m2) 15 (L) >=60 mL/min/1.73m2 Osmolality Calc 319.4 mOsm/kg CBC with automated diff Collection Time: 06/08/25 2:55 AM Result Value Ref Range WBC 4.1 4.0 - 10.0 K/??L RBC 3.30 (L) 3.93 - 5.22 M/??L Hemoglobin 9.3 (L) 11.2 - 15.7 GM/DL Hematocrit 31.0 (L) 34.1 - 44.9 % MCV 94 79 - 95 fL MCH 28.2 25.6 - 32.2 pg MCHC 30.0 (L) 32.2 - 35.5 GM/DL RDW 16.8 (H) 11.7 - 14.4 % Platelets 70 (L) 140 - 375 K/CU MM MPV 11.3 9.4 - 12.3 fL % Neutros 70 34 - 71 % % Lymphs 14 (L) 19 - 52 % % Monos 9 5 - 13 % % Eos 3 1 - 6 % % Baso 0 0 - 1 % NRBC Absolute <0.01 0 - 0.012 K/ul # Neutros 2.84 1.56 - 6.13 K/??L # Lymphs 0.55 (L) 1.18 - 3.74 K/??L # Monos 0.37 0.24 - 0.86 K/??L # Eos 0.11 0.04 - 0.36 K/??L # Baso <0.03 0.01 - 0.08 K/ L % Imm Grans 4.20 (H) 0.01 - 0.43 % # IG 0.17 (H) 0.00 - 0.03 K/uL Glucose, Nova Meter Collection Time: 06/08/25 5:53 AM Result Value Ref Range POC-GLUCOSE 99 70 - 110 mg/dL [employer] [id number] Glucose, Nova Meter Collection Time: 06/08/25 12:03 PM Result Value Ref Range POC-GLUCOSE 119 (H) 70 - 110 mg/dL [employer] [id number] Basic Metabolic Panel Collection Time: 06/08/25 2:55 PM Result Value Ref Range Sodium 146 (H) 136 - 145 meq/L Potassium 3.7 3.4 - 5.1 meq/L CO2 33 (H) 22 - 29 meq/L Chloride 100 98 - 112 meq/L Glucose 125 (H) 82 - 115 mg/dL BUN 59.0 (H) 9.8 - 20.1 mg/dL Creatinine 2.86 (H) 0.50 - 1.20 mg/dL BUN/Creatinine 21 (H) 8 - 20 Calcium 8.9 8.4 - 10.2 mg/dL Anion Gap 17 (H) 4 - 12 eGFR (mL/min/1.73m2) 16 (L) >=60 mL/min/1.73m2 Osmolality Calc 308.6 mOsm/kg Glucose, Nova Meter Collection Time: 06/08/25 6:27 PM Result Value Ref Range POC-GLUCOSE 129 (H) 70 - 110 mg/dL [employer] [id number] Glucose, Nova Meter Collection Time: 06/09/25 12:28 AM Result Value Ref Range POC-GLUCOSE 113 (H) 70 - 110 mg/dL [employer] [id number] Glucose, Nova Meter Collection Time: 06/09/25 6:13 AM Result Value Ref Range POC-GLUCOSE 105 70 - 110 mg/dL [employer] [id number] Basic Metabolic Panel Collection Time: 06/09/25 7:24 AM Result Value Ref Range Sodium 147 (H) 136 - 145 meq/L Potassium 3.4 3.4 - 5.1 meq/L CO2 35 (H) 22 - 29 meq/L Chloride 102 98 - 112 meq/L Glucose 124 (H) 82 - 115 mg/dL BUN 57.1 (H) 9.8 - 20.1 mg/dL Creatinine 2.50 (H) 0.50 - 1.20 mg/dL BUN/Creatinine 23 (H) 8 - 20 Calcium 9.1 8.4 - 10.2 mg/dL Anion Gap 13 (H) 4 - 12 eGFR (mL/min/1.73m2) 18 (L) >=60 mL/min/1.73m2 Osmolality Calc 309.7 mOsm/kg CBC with automated diff Collection Time: 06/09/25 7:24 AM Result Value Ref Range WBC 5.3 4.0 - 10.0 K/??L RBC 3.25 (L) 3.93 - 5.22 M/??L Hemoglobin 9.2 (L) 11.2 - 15.7 GM/DL Hematocrit 30.0 (L) 34.1 - 44.9 % MCV 92 79 - 95 fL MCH 28.3 25.6 - 32.2 pg MCHC 30.7 (L) 32.2 - 35.5 GM/DL RDW 16.6 (H) 11.7 - 14.4 % Platelets 71 (L) 140 - 375 K/CU MM MPV 11.1 9.4 - 12.3 fL % Neutros 69 34 - 71 % % Lymphs 16 (L) 19 - 52 % % Monos 10 5 - 13 % % Eos 2.5 1.0 - 6.0 % % Baso 0 0 - 1 % NRBC Absolute <0.01 0 - 0.012 K/ul # Neutros 3.65 1.56 - 6.13 K/??L # Lymphs 0.85 (L) 1.18 - 3.74 K/??L # Monos 0.53 0.24 - 0.86 K/??L # Eos 0.13 0.04 - 0.36 K/??L # Baso <0.03 0.01 - 0.08 K/ L % Imm Grans 2.10 (H) 0.01 - 0.43 % # IG 0.11 (H) 0.00 - 0.03 K/uL Magnesium Collection Time: 06/09/25 7:24 AM Result Value Ref Range Magnesium 1.8 1.6 - 2.6 mg/dL Glucose, Nova Meter Collection Time: 06/09/25 11:43 AM Result Value Ref Range POC-GLUCOSE 134 (H) 70 - 110 mg/dL Electric Organ Checker [id number] Imaging: XR KUB PORTABLE Result Date: 06/08/2025 KUB HISTORY: Corpak tube placement. COMPARISON: Earlier in the same day. FINDINGS: A single view ofthe abdomen/pelvis demonstrates an unremarkable bowel gas pattern. A weighted feeding tube is seen just right of midline. This again likely reflects placement within the second portion of the duodenum. There are no abnormal calcifications are identified over the renal shadows or course of the ureters.. No acute osseous findings. Non-obstructive bowel gas pattern. Weighted feeding tube as described above, with tip again overlying the distal second portion of the duodenum. Images reviewed, interpreted, and dictated by Keyon Levy M.D. XR KUB PORTABLE Result Date: 06/08/2025 KUB HISTORY: Feeding tube placement. COMPARISON: 06/05/2025 FINDINGS: The Corpak feeding tube is identified with the tip in the proximal second portion of the duodenum. The bowel gas pattern is nonspecific. There is no bowel obstruction. Feeding tube tip terminates in the proximal second portion of the duodenum. Images reviewed, interpreted, and dictated by Dr. Elbert Hercules. Transcribed by Valarie Abbott XR chest AP portable Result Date: 06/07/2025 PORTABLE CHEST 06/07/2025 2:27 AM HISTORY: Shortness of breath. COMPARISON: Chest x-ray from approximately 11 hours prior. FINDINGS: The heart is stable in size . There has been interval improvement in the perihilar opacities. Small pleural effusions are stable. There is no pneumothorax . There has been interval improvement . Continued follow up recommended . Images reviewed, interpreted, and dictated by Dr. Marisela Luther. Transcribed by Estela Bueno PA-C. XR chest AP portable Result Date: 06/07/2025 Portable chest HISTORY: Shortness of breath FINDINGS: Comparison date 06/04/2025. An enteric tube has been placed rectum towards the left upper quadrant although tip is not included. There are worsening bibasilar infiltrates. There may be a small right effusion. There are low lung volumes with poorinspiration. Heart size is normal. Worsening bibasilar lung infiltrates, which may represent atelectasis and/or pneumonia. XR KUB PORTABLE Result Date: 06/05/2025 SINGLE VIEW ABDOMEN HISTORY: Feeding tube adjustment. COMPARISON: June 04, 2025. ABDOMEN: Singleview of the abdomen demonstrates a nonspecific bowel gas pattern. No abnormal calcifications are identified. There is a feeding tube identified with the tip at the junction of the second and third portion of the duodenum. Nonspecific bowel gas pattern. Feeding tube tip terminates at the junction of the second and third portion of the duodenum. Images reviewed, interpreted, and dictated by Dr. Lino Main. Transcribed by Estela Bueno PA-C. CT CHEST WITHOUT IV CONTRAST Result Date: 06/05/2025 CT SCAN OF THE CHEST WITHOUT CONTRAST 06/05/2025 10:51 AM HISTORY: Pneumonia, unresolved. PROCEDURE: Axial CT images were obtained from the lung apex to the mid abdomen without IV contrast. Coronal and sagittal reformatted images generated from the axial data set and provided for interpretation. This study was performed with techniques to keep radiation doses as low as reasonably achievable, (ALARA). Individualized dose reduction techniques using automated exposure control or adjustment of mA and/or kV according to the patient size were employed. COMPARISON: None. FINDINGS: CHEST: Lack of IV contrast somewhat limits evaluation of the thoracic viscera. Lungs/Pleura: There is severe emphysema. There is severe bronchial wall thickening in the bilateral mid and lower lung zones. Patchy peribronchial consolidations are consistent with bronchopneumonia. There is superimposed atelectasis. No pneumothorax or pleural effusion. Heart, vessels and mediastinum: The heart is normal in size. No erika cardial effusion. There is enlargement of the pulmonary arteries, at to 42 mm. This is consistent with pulmonary arterial hypertension. Coronary artery disease is present. Lymph nodes: No pathologically enlarged thoracic lymph nodes within the limits of a noncontrast-enhanced examination. Chest wall: No acute findings. Bones: No acute fracture. Upper abdomen: Gallbladder is distended with gallston es. There is no evidence of acute cholecystitis. A feeding tube is in place. Bronchopneumonia with superimposed atelectasis. Images reviewed, interpreted, and dictated by Dr. Lino Main. Transcribed by Estela Bueno PA-C. XR KUB PORTABLE Result Date: 06/04/2025 KUB 06/04/2025 2:50 PM HISTORY: Feeding tube placement. COMPARISON: None. FINDINGS: A single view of the abdomen was performed. The feeding tube is identified below the diaphragm at the junction of the second and third portions of duodenum. There is a nonspecific, nonobstructive bowel gas pattern. Corpak feeding tube tip terminates in the second and third portions of duodenum. Images reviewed, interpreted, and dictated by Dr. Matt Lund. Transcribed by Marzena Menendez PA-C. Ultrasound renal limited Result Date: 06/04/2025 RENAL ULTRASOUND HISTORY: Acute kidney injury. PROCEDURE: Ultrasound images of the kidneys were obtained. FINDINGS: Limited images of the liver parenchyma demonstrate normal echogenicity . There are gallstones within the gallbladder. The right kidney measures 10 cm in length. It is normal echogenicity . There is no hydronephrosis . The left kidney measures 11 cm in length. It is normal echogenicity . There is no hydronephrosis . Normal renal ultrasound . Images reviewed, interpreted, and dictated by Dr. Marisela Luther. Transcribed by Maryam Duran PA-C. 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 HR: 60 bpmPatient Status: Routine IP Study Location: PortableTechnical Quality: Adequate visualization History/Tech Notes: Indication: altered mental status R40.4 Impression: Definity ultrasound enhancing agent administered for endocardial border definition. ######################################## Normal sized left ventricle. Mild left ventricular hypertrophy. Visually estimated ejection fraction 55% +/- 5%. Normal left ventricular systolic function with normal systolic strain pattern. Normal left ventricular diastolic function. Normal right ventricular size and function. No hemodynamically significant valvular heart disease. ######################################## Measurements Summary: LVEDd: 3.77 cm LVESd: 2.47 cm IVSEd: 1.28 cm AO Root:3.08 cm LVPWd: 0.8 cm Contractility Score Normal Left Ventricular contractility was noted. LV regional wall motion: (0-Not visualized 1-Normal 2-Hypokinesis 3-Akinesis 4- Dyskinesis 5-Aneurysm) Left Ventricle Peak E-wave: 0.97 Peak A-wave: 1.16 m/s E/A ratio: 0.83 m/s Volume [id number] LV length: 7.95 cm CO: 5.84 l/min ml CI: 2.95 l/min*m^2 Volume [id number] ml LVOT diameter: 2.11 cm Normal sized l eft ventricle. Mild left ventricular hypertrophy. Visually estimated ejection fraction 55% +/- 5%. Normal left ventricular systolic function with normal systolic strain pattern. Normal left ventricular diastolic function. No left ventricular masses or thrombi. Right Ventricle Diastolic dimension: 3.39 RV systolic pressure: 24.99 mmHg cm Normal sized right ventricle. Normal TAPSE c/w normal right ventricular function Left Atrium LA dimension: 3.85 cm LA volume:48.99 ml LA/Aorta: 1.25 Normal sized left atrium. Normal left atrial volume index 24.74 ml/m^2. Intact atrial septum. No atrial mass or thrombus. Right Atrium Abnormal right atrial size. Intact atrial septum. No atrial mass or thrombus. Mitral Valve Deceleration time: Mean velocity: 0.8 178.78 msec Area (continuity): m/s 2.95 cm^2 Mean gradient: 2.84 mmHg Peak gradient: 6.38 mmHg Structurally normal mitral valve. Mitral valve annulus calcification. Mild (1+) mitral regurgitation. No mitral stenosis. No masses or vegetations seen. Aortic Valve LVOT VTI: 27.84 cm Mildly thickend free edges of the aortic valve leaflets. Trace aortic valve regurgitation. No aortic stenosis. No masses or vegetations seen. Tricuspid Valve TR velocity: 2.06 m/s TR gradient: 16.68115 mmHg Estimated RAP: 8 mmHg RVSP: 24.99 mmHg Structurally normaltricuspid valve. Trace tricuspid regurgitation. No tricuspid stenosis. No masses or vegetations seen. Pulmonic Valve Acceleration time: 74.22 msec PASP: 24.99 mmHg Structurally normal pulmonic valve.Abnormal pulmonary acceleration time. Trace pulmonic valve regurgitation. No pulmonic stenosis. No masses or vegetations seen. Great Vessels Aorta Aortic Root: 3.08 cm Ascending Aorta: 3.12 cm LVOT Diameter: 2.11 cm Visualized thoracic aorta is normal. Normal aortic root. No evidence of dissection.Dilated IVC with partial inspiratory collapse. Borderline elevated central venous pressure (8-12mmHg). Pericardium / Pleura No pericardial effusion. XR chest AP portable Result Date: 06/04/2025 PORTABLE CHEST 06/04/2025 9:06 AM HISTORY: Acute shortness of breath COMPARISON: 6 hours prior FINDINGS: The heart is mildly enlarged. The mediastinum is unremarkable. Lungs are underinflated with chronic changes throughout both lungs. There is bibasilar atelectasis. There is no pneumothorax. The osseous structures are unremarkable. No acute cardiopulmonary process. Images reviewed, interpreted, and dictated by Dr. Matt Lund. Transcribed by Marzena Menendez PA-C. XR chest AP portable Result Date: 06/04/2025 PORTABLE CHEST 06/04/2025 1:44 AM HISTORY: Acute shortness of breath. COMPARISON: May 18, 2020. FINDINGS: The heart is normal in size . The mediastinum is unremarkable . Lungs are underinflatedwith mild chronic changes in the bases. There is no pneumothorax . No acute cardiopulmonary process . Images reviewed, interpreted, and dictated by Dr. Matt Lund. Transcribed by Pal Cosby PA-C Assessment: Acute kidney injury likely ATN on stage III CKD Hyperkalemia, resolved HAG Metabolic acidosis Uremic and Lactic, resolved Encephalopathy, likely metabolic Thrombocytopenia H/o essential HTN Type II DM Obesity Chronic hypoxemic respiratory failure BRIDGETTE Pneumonia Hypernatremia Plan: -Renal function continue to gradually improve. -Increased free water to address evolving hypernatremia and started short trial of hypotonic solution. Improved -Hyperkalemia and Metabolic acidosis had resolved -Held home meds Irbesartan, Spironolactone, Metformin, and Farxiga. -Renal US was normal -Avoidance of nephrotoxins -Renal dosing of meds -Follow renal function, electrolytes, I/O, and acid base status very closely -Further management of other medical problems is per primary team and other specialities Thank you for this interesting consultation. Please do not hesitate to contact me with any questionor concern regarding this patient at [phone]. * Olivia Casas, RAMON - 06/09/2025 10:57 AM EDT 06/09: RD check on. Pt passed [employer] ericka, on renal diet. RN reports pt not eating much. Corpak remains in placed, TF running @ 20 ml/hr. Plan to continue to increase to goal as intakes establish. Couldmodify to nocturnal TF prn. Estimated Needs 5059-0649 kcal/day (20-22 kcal/kg) ~85 g protein/day (1.0 g/kg) Nutrition Monitoring and Goals: - Continue advancing Nepro to goal @ 45 ml/hr (1782 kcal, 81 gm pro). FW per MD *adjust to nocturnal TF prn Goal: meet >80% of et needs - Continue renal diet, could liberalize prn as elytes are wnls/borderline low. Add ONS if pt showing interest in food. Goal: >50% PO intake - Obtain wt 2x weekly Goal: avoid involuntary significant wt change - Monitor elytes/renal fxn Goal: wnls - Assess for PCM as able Goal: accurate PCM diagnosis Nutrition Risk Level: High Risk Olivia Casas RD * Bela Abel MD - 06/09/2025 8:55 AM EDT Images from the original note were not included. Pulm/CC Date of consultation: 06/03/2025 Reason for consultation: ICU admission, renal failure Chief complaint: Weakness History of present illness: Patient is an 84-year-old female who presented to an outlying facility from the longterm for altered mental status. Patient has a past medical history including type 2 diabetes mellitus, chronic hypoxemic respiratory failure, chronic kidney disease, BRIDGETTE, hyperlipidemia, depression, GERD. Her mental status has deteriorated over the past couple of days with on and off confusion. Per report she has had multiple ground-level falls without trauma. In the emergency department her blood pressure was 105/44 with a heart rate in the 60s. She does have chronic respiratory failure and typically wears 2 L O2. Her initial laboratory data revealed sodium 140, potassium 7.2, serum CO2 24, serum creatin ine 6.00, glucose 115, WBC 8.5. Patient had a CT scan of the head that revealed no acute abnormalities. CT scan revealed diffuse patchy infiltrate noted throughout the right mid and lower lung. Patient was transferred to [facility] and admitted to the ICU. Pulmonary/critical care consulted for ICU admission. At time of evaluation, patient is awake, answering most questions appropriately. On 2 L O2 with adequate saturation. Hemodynamically stable not requiring vasopressors. No family present at bedside. She denies nausea, vomiting, diarrhea. No chest pain. 06/04 seen examined today, encephalopathic, confused, awake but not oriented, hypoxic 8 L nasal cannula bicarb drip, Azactam/Doxy, chest x-ray right lung infiltrate. Pneumonia panel pending, magnesium replaced, creatinine 5.35, urine output 300 cc. Nephrology following, ultrasound kidney pending 06/05: Seen and examined, awake, follow commands, 5 L nasal cannula, hemodynamically stable, afebrile, Azactam/Doxy. Creatinine trending down 4.7, UOP 1200 cc last 24 hours, 750 cc overnight, nephrology following p.o. diet Discontinue bicarb drip CAT scan of the chest pending 06/06: Seen and examined, remains encephalopathic, but awake follow some commands, alert, not oriented, on nasal cannula 6 L, CAT scan of the chest shows bilateral lower lobe pneumonia patient doxycycline/Azactam, dysphagia: PEG tube feeding, nephrology following. Creatinine 4.16. Patient making urine, urine repeat 2 L, magnesium 1.8. Placement, potassium 4.2. Close monitoring in the ICU 06/07 Patient was seen and evaluated this morning. She is alert and oriented. On 6 L. No issues overnight. Intake to 60, output 1550, -1300. No fever. Sodium up to 147. Free water flushes increased to 30 cc/h. Potassium of 4. Bicarb of 32. Creatinine down to 3.6. Mag 1.7 on replacement. Chest x-ray showing right lung infiltration. On Corpak and tube feeding. 06/08 Patient was seen and evaluated this morning. She was questionable aspiration yesterday but her oxygenation is improving and this morning was on 3 L nasal cannula. Corpak for now. She failed swallow eval this morning. Discussed with RN to place another Corpak and start free water flushes. Sodium up to 152 overnight started on D5. Will repeat BMP at 2:00 and if sodium is improving then we will keepfree water flushes and DC fluid. She still confused. Intake 400, output 700, -300. No family at bedside. 06/09 Patient was seen and evaluated this morning. No issues overnight. She is more alert and oriented this morning. She is answering most of my questions. On 4 L nasal cannula. No fever. Intake 500, output 1200, -700. Sodium down to 147. Creatinine down to 2.5. On free water flushes and D5 quarter per nephrology. Doxycycline discontinued. On Azactam. PAST MEDICAL HISTORY: Past Medical History: Diagnosis Date Asthma Chronic kidney disease Emphysema lung (HCC) History of degenerative disc disease Hypertension Lumbar radiculopathy PAST SURGICAL HISTORY: Allergies: Allergies Allergen Reactions Azithromycin Ceftriaxone Pollen Extracts SOCIAL HISTORY: Social History Tobacco Use Smoking status: Former Current packs/day: 0.00 Types: Cigarettes Quit date: 2014 Years since quittin.7 Smokeless tobacco: Never Substance Use Topics Alcohol use: Never Drug use: Never FAMILY HISTORY: Family history is unknown by patient. ROS Constitutional: No fever, no weight changes HEENT: No headaches, no vision changes Cardiac: No chest pain, no palpitations, no orthopnea Pulmonary: No SOB, no TOLLIVER, no cough GI: No nausea, no vomiting, no abdominal pain, no melena, no constipation, no diarrhea : No dysuria, no hematuria, no flank pain MSK: No muscle cramping, + muscle weakness Neuro: No paresthesias, no focal deficits Skin: No rashes, no skin lesions Psych: No depression, no anxiety Vital Signs Temp: [98.1 ??F (36.7 ??C)-98.6 ??F (37 ??C)] 98.1 ??F (36.7 ??C) Pulse: [52-149] 68 Resp: [8-29] 18 BP: (120-177)/(57-79) 167/71 Current: Temp: 98.1 ??F (36.7 ??C) Pulse: 68 Resp: 18 BP: (!) 167/71 SpO2: 98 % 24 Hour: BP Min: 120/58 Max: 177/72 Temp Min: 98.1 ??F (36.7 ??C) Max: 98.6 ??F (37 ??C) Pulse Min: 52 Max: 149 Resp Min: 8 Max: 29 SpO2 Min: 86 % Max: 99 % Intake/Output: I/O last 3 completed shifts: In: 727.5 [I.V.:227.5; IV Piggyback:500] Out: 1900 [Urine:1900] Physical examination: General: Awake and answering questions. Eyes: Pupils equal, round, reactive to light, extraocular movements intact, normal conjunctiva HENT: Normocephalic, atraumatic, Supple, nontender, no carotid bruit Respiratory: Breath sounds equal bilaterally, decreased in the bases, no rhonchi or wheezing Cardiovascular: Normal rhythm, normal rate, currently with controlled rate, S1-S2 Gastrointestinal: Soft, nontender, nondistended, normoactive bowel sounds Integumentary: Warm, intact Genitourinary: Deferred MSK: No deformities, normal range of motion Neurologic: Mostly alert, answering questions. Psychiatric: Cooperative, appropriate mood Vent / O2 Management: LABS Results for orders placed or performed during the hospital encounter of 06/03/25 (from the past 24 hours) Glucose, Nova Meter Status: Abnormal Collection Time: 06/08/25 12:03 PM Result Value Ref Range POC-GLUCOSE 119 (H) 70 - 110 mg/dL Electric Organ Checker [id number] Basic Metabolic Panel Status: Abnormal Collection Time: 06/08/25 2:55 PM Result Value Ref Range Sodium 146 (H) 136 - 145 meq/L Potassium 3.7 3.4 - 5.1 meq/L CO2 33 (H) 22 - 29 meq/L Chloride 100 98 - 112 meq/L Glucose 125 (H) 82 - 115 mg/dL BUN 59.0 (H) 9.8 - 20.1 mg/dL Creatinine 2.86 (H) 0.50 - 1.20 mg/dL BUN/Creatinine 21 (H) 8 - 20 Calcium 8.9 8.4 - 10.2 mg/dL Anion Gap 17 (H) 4 - 12 eGFR (mL/min/1.73m2) 16 (L) >=60 mL/min/1.73m2 Osmolality Calc 308.6 mOsm/kg Glucose, Nova Meter Status: Abnormal Collection Time: 06/08/25 6:27 PM Result Value Ref Range POC-GLUCOSE 129 (H) 70 - 110 mg/dL Electric Organ Checker [id number] Glucose, Nova Meter Status: Abnormal Collection Time: 06/09/25 12:28 AM Result Value Ref Range POC-GLUCOSE 113 (H) 70 - 110 mg/dL Electric Organ Checker [id number] Glucose, Nova Meter Status: None Collection Time: 06/09/25 6:13 AM Result Value Ref Range POC-GLUCOSE 105 70 - 110 mg/dL Electric Organ Checker [id number] Basic Metabolic Panel Status: Abnormal Collection Time: 06/09/25 7:24 AM Result Value Ref Range Sodium 147 (H) 136 - 145 meq/L Potassium 3.4 3.4 - 5.1 meq/L CO2 35 (H) 22 - 29 meq/L Chloride 102 98 - 112 meq/L Glucose 124 (H) 82 - 115 mg/dL BUN 57.1 (H) 9.8 - 20.1 mg/dL Creatinine 2.50 (H) 0.50 - 1.20 mg/dL BUN/Creatinine 23 (H) 8 - 20 Calcium 9.1 8.4 - 10.2 mg/dL Anion Gap 13 (H) 4 - 12 eGFR (mL/min/1.73m2) 18 (L) >=60 mL/min/1.73m2 Osmolality Calc 309.7 mOsm/kg CBC with automated diff Status: Abnormal Collection Time: 06/09/25 7:24 AM Result Value Ref Range WBC 5.3 4.0 - 10.0 K/??L RBC 3.25 (L) 3.93 - 5.22 M/??L Hemoglobin 9.2 (L) 11.2 - 15.7 GM/DL Hematocrit 30.0 (L) 34.1 - 44.9 % MCV 92 79 - 95 fL MCH 28.3 25.6 - 32.2 pg MCHC 30.7 (L) 32.2 - 35.5 GM/DL RDW 16.6 (H) 11.7 - 14.4 % Platelets 71 (L) 140 - 375 K/CU MM MPV 11.1 9.4 - 12.3 fL % Neutros 69 34 - 71 % % Lymphs 16 (L) 19 - 52 % % Monos 10 5 - 13 % % Eos 2.5 1.0 - 6.0 % % Baso 0 0 - 1 % NRBC Absolute <0.01 0 - 0.012 K/ul # Neutros 3.65 1.56 - 6.13 K/??L # Lymphs 0.85 (L) 1.18 - 3.74 K/??L # Monos 0.53 0.24 - 0.86 K/??L # Eos 0.13 0.04 - 0.36 K/??L # Baso <0.03 0.01 - 0.08 K/ L % Imm Grans 2.10 (H) 0.01 - 0.43 % # IG 0.11 (H) 0.00 - 0.03 K/uL Magnesium Status: Normal Collection Time: 06/09/25 7:24 AM Result Value Ref Range Magnesium 1.8 1.6 - 2.6 mg/dL Radiology Radiology Results (last day) Procedure Component Value Units Date/Time XR KUB PORTABLE [[id number]] Collected: 06/08/252301 Order Status: Completed Updated: 06/08/252306 Narrative: KUB HISTORY: Corpak tube placement. COMPARISON: Earlier in the same day. FINDINGS: A single view of the abdomen/pelvis demonstrates an unremarkable bowel gas pattern. A weighted feeding tube is seen just right of midline. This again likely reflects placement within the second portion of the duodenum. There are no abnormal calcifications are identified over the renal shadows or course of the ureters.. No acute osseous findings. Impression: Non-obstructive bowel gas pattern. Weighted feeding tube as described above, with tip again overlying the distal second portion of the duodenum. Images reviewed, interpreted, and dictated by Keyon Levy M.D. XR KUB PORTABLE [[id number]] Collected: 06/08/25 1421 Order Status: Completed Updated: 06/08/25 1508 Narrative: KUB HISTORY: Feeding tube placement. COMPARISON: 06/05/2025 FINDINGS: The Corpak feeding tube is identified with the tip in the proximal second portion of the duodenum. The bowel gas pattern is nonspecific. There is no bowel obstruction. Impression: Feeding tube tip terminates in the proximal second portion of the duodenum. Images reviewed, interpreted, and dictated by Dr. Elbert Hercules. Transcribed by Valarie Abbott Microbiology: Microbiology Results (last 7 days) Procedure Component Value Units Date/Time Respiratory Panel [[id number]] (Normal) Collected: 06/04/25 1323 Order Status: Completed Specimen: Nasopharyngeal Swab Updated: 06/04/25 1527 ADENOVIRUS Not detected CORONAVIRUS 229E Not detected CORONAVIRUS HKU1 Not detected CORONAVIRUS NL63 Not detected CORONAVIRUS OC43 Not detected SARS-COV2/RT-PCR Not Detected HUMAN METAPNEUMOVIRUS Not detected HUMAN RHINOVIRUS/ENTEROVIRUS Not detected INFLUENZA A Not detected INFLUENZA B Not detected PARAINFLUENZA VIRUS 1 Not detected PARAINFLUENZA VIRUS 2 Not detected PARAINFLUENZA VIRUS 3 Not detected PARAINFLUENZA VIRUS 4 Not detected RESPIRATORY SYNCYTIAL VIRUS Not detected BORDETELLA PARAPERTUSSIS Not detected BORDETELLA PERTUSSIS Not detected CHLAMYDIA PNEUMONIAE Not detected MYCOPLASMA PNEUMONIAE Not detected Narrative: Testing was performed with RT-PCR methodology using the [employer] Respiratory Panel 2.1 which has FDADe Jacquie approval for SARS-CoV-2 testing. Negative results do not preclude infection with the SARS-CoV-2 virus and should not be used as the sole basis of patient treatment or public health decisions.Negative results must be considered in the context of an individual's recent exposures, history, and presence of clinical signs/symptoms. Follow-up testing should be performed according to the current CDC recommendations. Other viruses and bacteria not targeted by this PCR panel cannot be excluded; therefore clinical correlation and follow up of serology, culture results, and other molecular studies is required. The results are not intended to be used as the sole means for clinical diagnosis or patient management decisions. This sample was tested at the [facility] using the [employer] FilmArray Respiratory Panel. It is FDA cleared and has been verified and approved by the [facility] for clinical use on nasopharyngeal swab specimens. The performance of the FilmArray RP has not been established in individuals who received influenza vaccine. Recent administration of a nasal influenza vaccine may cause false positive results for Influenza A and/or Influenza B. MRSA Screen [[id number]] (Normal) Collected: 06/04/25 1323 Order Status: Completed Specimen: Nasal from Nares Updated: 06/04/25 1527 MRSA by PCR [facility] MRSA Not Detected by PCR Pneumonia PCR Panel w/Respiratory Culture [[id number]] Order Status: Canceled Specimen: Sputum from Expectorated Pneumonia PCR Panel [[id number]] Order Status: Canceled Specimen: Sputum from Expectorated Respiratory Culture [[id number]] Order Status: Canceled Specimen: Sputum from Expectorated Strep pneumoniae urine antigen [[id number]] (Normal) Collected: 06/03/25 2350 Order Status: Completed Specimen: Urine, Unspecified Source Updated: 06/04/25 0012 Strep pneumoniae Antigen Presumptive negative for pneumococcal pneumonia - see comment Narrative: A presumptive negative result suggests no current or recent pneumococcal infection. Infection due to S. pneumoniae cannot be ruled out since the antigen present in the specimen may be below the detection limit of the test. Echo 06/04/25 Normal sized left ventricle. Mild left ventricular hypertrophy. Visually estimated ejection fraction 55% +/- 5%. Normal left ventricular systolic function with normal systolic strain pattern. Normal left ventricular diastolic function. Normal right ventricular size and function. No hemodynamically significant valvular heart disease. Impression: Neuro: Acute metabolic/uremic encephalopathy, improving Ground level fall Degenerative cervical spine disease T12 compression fracture Pulmonary Acute/chronic hypoxic respiratory failure 4 L nasal cannula Bilateral lower lobe pneumonia Mild pulmonary vascular congestion CXR Former smoker possible COPD Cardiovascular History of hypertension Echo EF 55%, normal LV function, mild LVH Infectious disease Right lung pneumonia possible CAP Renal: Acute hyperkalemia-resolved Acute metabolic acidosis-resolved Acute kidney injury/CKD Hypernatremia Hematology: Chronic anemia Chronic thrombocytopenia Endocrinology Type 2 diabetes mellitus Plan: Neuro: Acute encephalopathy in setting of worsening renal failure, sepsis, pneumonia,. Patient protecting airway on nasal cannula Head CT outside facility: Reported to be negative for acute finding. CT cervical spine degenerative changes with central canal narrowing, moderate compression T12 fracture. Recommend evaluation by neurosurgery. Neuro status is improving and she is more alert and oriented. Pulmonary acute on chronic hypoxic respiratory failure. chest x-ray CAT scan bilateral lower lobe infiltrate community-acquired pneumonia possible aspiration Started on Azactam/doxycycline plan to continue 7 days. CAT scan of the chest: Bilateral lower lobe pneumonia Respiratory viral panel: Negative MRSA screen negative Streptococcus pneumonia antigen negative Pulmicort/DuoNebs. Repeated chest x-ray showed improving right lung infiltration. Oxygenation is improving and currently on 4 L nasal cannula Cardiovascular: Hemodynamically stable. Underlying heart failure with EF, proBNP/echo normal EF, mild LVH Infectious: CBC no leukocytosis, Pro-Erasmo elevated, chest imaging suggestive of bilateral pneumonia,IV Azactam , pneumonia workup so far negative, repeat CAT scan of the chest 6 to 8 weeks for resolution of the pneumonia, speech evaluation, rule out aspiration Continue Azactam for total 7 days. Tomorrow will be the last dose. Will DC doxycycline Renal: RICHIE/CKD, sodium unremarkable, hyperkalemia treated with hyperkalemia cocktail, magnesium replaced Nephrology consulted, ultrasound kidney normal renal ultrasound Mild metabolic acidosis improving. Discontinued bicarb drip Patient making urine. Continue monitoring creatinine trend electrolyte Sodium up to 152. Sodium trended down to 147. Continue with water flushes 50 mL/h. On D5 quarter saline per nephrology. GI/nutrition: Dysphagia, possible aspiration, speech, feeding LFT unremarkable, bilirubin unremarkable, bowel regimen Corpak reinserted and started on tube feeding. She passed swallow eval but she has poor oral intake. Will keep Corpak and tube feeding for now. Hematology: CBC no leukocytosis, H&H stable, thrombocytopenia chronic, mild anemia chronic. Monitor H&H, platelet number Prophylaxis: Subcu heparin/Pepcid CODE STATUS full Prognosis: Guarded/poor Dispo: Okay to transfer patient to telemetry. Oxygenation is improving and currently on 4 L nasal cannula. Continue to monitor sodium. Free water flushes increased to 50 cc/h. On D5 quarter saline atrate of 60 cc/h Per nephrology. PT OT evaluation given her history of fall. Neurosurgery evaluationrecommended giving her T12 fracture Case discussed during round. I have personally evaluated the patient and performed a [id number] diagnostic evaluation on this patient; I have reviewed history, performed physical examination, reviewed laboratory studies. , andreviewed images independent of radiologist. I have actively directed the medical care, formulated assessemnt and plan of care. Patient requires a high complexity of decision making for assessment. 32 minutes critical care time was spent. Voice management trainee technology ([employer]) is used for dictation of this note and sound-alike words might be erroneously placed despite reviewing the note for accuracy.Errors in dictation may reflect use of voice recognition software and not all errors in management trainee may have been detectedprior to signing * MIRIAN Sheldon - 06/09/2025 8:13 AM EDT Images from the original note were not included. [facility] Speech Therapy Treatment Note Dysphagia Patient Name:Kirstie Nascimento Birthday: 1940 Age: 84 y.o. Today: 06/09/2025 Treatment: dysphagia Respiratory: nasal cannula Length of Treatment: [id number] Mental status Alert and Cooperative Pain: [address] Faces Current Diet Recommendation:NPO New Diet Recommendation:Regular solids and thins Subjective RN okayed session Objective Oral Care: yes Photo Printer Goals: Est. PO diet Dysphagia Short Term Goals: 1. Patient will participate in re-evaluation of swallow function. -met Assessment Summary:Patient seen for re-evaluation of swallow function. Patient with improved mentation this date though still confused and required cues to accept PO. Adequate mastication of solids. No overt signs of aspiration noted with single sips of thin liquids. Patient appears safe for regular solids anthin liquids Progress towards goals:All goals met Patient education: Instructed and Verbalized understanding Plan BETTING [employer]ERKS Discharge Planning: No further dysphagia therapy This will serve as a discharge statement if patient is discharged before further visits. Electronically signed by MIRIAN Sheldon- 06/09/2025 - 8:57 AM EDT * Charity Steiner MD - 06/08/2025 2:46 PM EDT HOSPITALIST PROGRESS NOTE Patient: Kirstie Nascimento Date: 06/08/2025 Subjective Date of Service: 06/08/2025 Patient seen this morning, states she feels okay. She is on 3 L of oxygen which is what she says she wears at home. Blood pressure slightly high, no family at bedside Review of Systems Constitutional: Negative for chills and fever. Respiratory: Positive for shortness of breath. Negative for cough. Cardiovascular: Negative for chest pain and palpitations. Gastrointestinal: Negative for abdominal pain, diarrhea and vomiting. Musculoskeletal: Negative for myalgias. Neurological: Negative for weakness and headaches. Objective Vitals: Temp: [97.4 ??F (36.3 ??C)-98.3 ??F (36.8 ??C)] 97.4 ??F (36.3 ??C) Pulse: [52-80] 52 Resp: [10-22] 16 BP: (109-196)/(56-79) 160/71 Intake/Output: Intake/Output Summary (Last 24 hours) at 06/08/2025 1446 Last data filed at 06/08/2025 0627 Gross per 24 hour Intake 227.5 ml Output 700 ml Net -472.5 ml Physical exam: Physical Exam Constitutional: Appearance: Normal appearance. HENT: Head: Normocephalic. Eyes: Conjunctiva/sclera: Conjunctivae normal. Cardiovascular: Rate and Rhythm: Normal rate and regular rhythm. Heart sounds: No murmur heard. Pulmonary: Effort: No respiratory distress. Breath sounds: Normal breath sounds. No wheezing. Abdominal: General: Bowel sounds are normal. Palpations: Abdomen is soft. Tenderness: There is no abdominal tenderness. Musculoskeletal: General: No swelling or deformity. Skin: General: Skin is warm and dry. Findings: No lesion or rash. Neurological: General: No focal deficit present. Mental Status: She is alert and oriented to person, place, and time. Psychiatric: Mood and Affect: Mood normal. Behavior: Behavior normal. Pertinent Recent Radiology: CT chest 06/05: Bronchopneumonia TTE 06/04: EF 55%, normal diastolic function, no significant VHD Assessment and Plan #RICHIE on suspected CKD stage III Baseline GFR unknown Nephrology following Hold home ARB, metformin, Farxiga BUN down to 62, creatinine better at 3.01 Order BMP for a.m. #Acute on chronic respiratory failure Currently back to her home 2 to 3 L of oxygen Likely due to volume overload Pulmonology following Respiratory panel negative Aztreonam, doxycycline #Hypernatremia Sodium up to 152 D5W Order sodium level later this afternoon #Dysphagia Speech therapy following: NPO #UTI 21-50 WBCs, 1+ bacteria Culture not sent? Continue IV antibiotics, monitoring for toxicity #Acute metabolic encephalopathy Head CT at OSH reportedly unremarkable Could be multifactorial relating to electrolyte disturbances, UTI #Thrombocytopenia Platelets better at 70 Will monitor #Hyperkalemia--resolved Hold home spironolactone Code Status: Current Code Status Full Code Discharge Planning: Barriers to discharge/reason for continued hospitalization: Patient still confused, abnormal electrolytes. Weaning oxygen Expected (tentative) discharge in: 2 to 3 days Expected discharge disposition: [facility] Additional discharge needs: Follow-up with nephrology, PCP Signed: Charity Steiner MD 06/08/2025, 2:46 PM * Holger Mishra MD - 06/08/2025 12:28 PM EDT Images from the original note were not included. Subjective: Patient was seen and examined with all infection control measures. On supplemental O2. + lethargy. Hospital Course: Kirstie Nascimento is an 84 y.o. female with PMHx of stage III CKD, DM 2, HTN, Asthma, Chronic Respiratory Failure, Arthritis, who was transferred from outside hospital after she presented there from nursing facility due to fal and altered mental status. Initial workup showed RICHIE. CXR showed patchy infiltrate R mid to lower lung. Pt was given hyperkalemia protocol and was transferred to [facility] for renal evaluation. Patient is very poor historian and unable to provide reliable history. Allergies: Azithromycin, Ceftriaxone, and Pollen Extracts Home Medications: Prior to Admission medications Medication Sig Start Date End Date Taking? Authorizing Provider calcium carbonate (OS-ERASMO) 600 mg calcium (1,500 mg) Take 600 mg by mouth daily. Yes Historical Provider, cyanocobalamin 1000 MCG tablet Take 1 tablet (1,000 mcg total) by mouth daily. Yes Historical Provider, dapagliflozin propanediol (Farxiga) 10 mg tablet Take 1 tablet (10 mg total) by mouth daily. Yes Historical Provider, escitalopram (LEXAPRO) 20 MG tablet Take 1 tablet (20 mg total) by mouth daily. Yes Historical Provider, esomeprazole (NexIUM) 40 MG capsule Take 1 capsule (40 mg total) by mouth Daily (0600). Yes Historical Provider, famotidine (PEPCID) 20 MG tablet Take 2 tablets (40 mg total) by mouth once at bedtime. Yes Historical Provider, fluticasone propion-salmeteroL (ADVAIR) 250-50 mcg/dose diskus inhaler Inhale 1 puff by mouth 2 (two) times daily. Yes Historical Provider, furosemide (LASIX) 40 MG tablet Take 1 tablet (40 mg total) by mouth daily. Yes Historical Provider, ipratropium-albuteroL (DUO-NEB) 0.5 mg-3 mg(2.5 mg base)/3 mL nebulizer solution Inhale 3 mLs by nebulization every 6 (six) hours as needed for wheezing. Yes Historical Provider, irbesartan (AVAPRO) 300 MG tablet Take 1 tablet (300 mg total) by mouth nightly. Yes Historical Provider, loperamide (IMODIUM) 2 mg capsule Take 1 capsule (2 mg total) by mouth 4 (four) times daily as needed for diarrhea. Yes Historical Provider, metFORMIN (GLUCOPHAGE) 500 MG tablet Take 1 tablet (500 mg total) by mouth 2 (two) times daily withbreakfast and dinner Look-alike/Sound-alike medication. Yes Historical Provider, metoprolol succinate (TOPROL-XL) 50 MG 24 hr tablet Take 1 tablet (50 mg total) by mouth daily. YesHistorical Provider, montelukast (SINGULAIR) 10 mg tablet Take 1 tablet (10 mg total) by mouth nightly. Yes Historical Provider, multivitamin per tablet Take 1 tablet by mouth daily. Yes Historical Provider, oxybutynin (DITROPAN) 5 MG tablet Take 4 tablets (20 mg total) by mouth daily. Yes Historical Provider, pregabalin (LYRICA) 75 MG capsule Take 1 capsule (75 mg total) by mouth 2 (two) times daily. Max Daily Amount: 150 mg Yes Historical Provider, simvastatin (ZOCOR) 20 MG tablet Take 1 tablet (20 mg total) by mouth nightly. Yes Historical Provider, spironolactone (ALDACTONE) 50 MG tablet Take 1 tablet (50 mg total) by mouth daily. Yes Historical Provider, TiZANidine (ZANAFLEX) 2 MG capsule Take 1 capsule (2 mg total) by mouth once at bedtime. Yes Historical Provider, Current Medications: Current Facility-Administered Medications: acetaminophen (TYLENOL) tablet 650 mg, 650 mg, oral, Q6H PRN, Sima Mancia MD amLODIPine (NORVASC) tablet 5 mg, 5 mg, oral, Daily, Bela Abel MD aztreonam (AZACTAM) 1 g in sodium chloride 0.9 % (NS) MBP IVPB, 1 g, intravenous, Q12H, Bela Abel MD budesonide (PULMICORT) nebulizer suspension 0.5 mg, 0.5 mg, nebulization, 2 times daily, Sima Mancia MD, 0.5 mg at 06/08/25 0811 dextrose 5 % infusion, 75 mL/hr, intravenous, Continuous, Marcus Bazan DO, Last Rate: 75 mL/hr at 06/08/25 0627, 75 mL/hr at 06/08/25 0627 dextrose 50% (D50W) injection 25 g, 25 g, intravenous, Q15 Min PRN, Sima Mancia MD doxycycline (VIBRAMYCIN) 100 mg in sodium chloride 0.9 % (NS) MADELEINE IVPB, 100 mg, intravenous, Q12H, Bela Abel MD, IVPB Stopped at 06/08/25 0912 famotidine (PEPCID) tablet 20 mg, 20 mg, oral, Daily, Sima Mancia MD, 20 mg at 06/07/25 0843 glucagon injection 1 mg, 1 mg, intraMUSCULAR, Q15 Min PRN, Sima Mancia MD glucose chew tab 16 g, 16 g, oral, Q15 Min PRN, Sima Mancia MD heparin injection 5,000 Units, 5,000 Units, subcutaneous, Q8H, Octavio Odell MD, 5,000 Units at 06/08/25 0559 hydrALAZINE (APRESOLINE) injection 10 mg, 10 mg, intravenous, Q6H PRN, Sima Mancia MD, 10 mg at 06/07/25 2121 insulin regular (HUMULIN R,NOVOLIN R) injection, 0-6 Units, subcutaneous, Q6H GALA, Stan Robles PA-C, 2 Units at 06/07/25 0025 ipratropium-albuteroL (DUO-NEB) 0.5 mg-3 mg(2.5 mg base)/3 mL nebulizer solution 3 mL, 3 mL, nebulization, 2 times daily, Sima Mancia MD, 3 mL at 06/08/25 0811 ondansetron (ZOFRAN) injection 4 mg, 4 mg, intravenous, Q6H PRN, Sima Mancia MD polyethylene glycol (GLYCOLAX) packet 17 g, 17 g, oral, Daily PRN, Sima Mancia MD polyethylene glycol (GLYCOLAX) packet 17 g, 17 g, oral, Daily, Octavio Odell MD, 17 g at 06/07/25 0842 Saccharomyces boulardii (FLORASTOR) capsule 250 mg, 250 mg, oral, BID, Sima Mancia MD, 250 mg at 06/07/25 0843 sennosides-docusate sodium (SENOKOT S) 8.6-50 mg tablet 1 tablet, 1 tablet, oral, BID PRN, Sima Mancia MD sodium polystyrene sulf-sorbtL 15-20 gram/60 mL suspension 60 g, 60 g, oral, Once, Holger Mishra MD Review of Systems Unable to perform ROS: Mental status change Vitals Blood pressure (!) 160/71, pulse 52, temperature 97.4 ??F (36.3 ??C), temperature source Axillary, resp. rate 16, height 1.702 m (5' 7 ), weight 86.7 kg (191 lb 2.2 oz), SpO2 95%. Physical Exam Vitals and nursing note reviewed. Constitutional: Appearance: She is normal weight. She is ill-appearing. HENT: Head: Normocephalic and atraumatic. Nose: Nose normal. Mouth/Throat: Pharynx: Oropharynx is clear. Eyes: Extraocular Movements: Extraocular movements intact. Conjunctiva/sclera: Conjunctivae normal. Pupils: Pupils are equal, round, and reactive to light. Cardiovascular: Rate and Rhythm: Normal rate. Rhythm irregular. Pulses: Normal pulses. Heart sounds: Normal heart sounds. Pulmonary: Effort: Pulmonary effort is normal. Breath sounds: Rhonchi and rales present. Abdominal: General: Abdomen is flat. Bowel sounds are normal. Palpations: Abdomen is soft. Musculoskeletal: General: Normal range of motion. Cervical back: Normal range of motion and neck supple. Right lower leg: Edema present. Left lower leg: Edema present. Skin: General: Skin is warm and dry. Neurological: General: No focal deficit present. Mental Status: She is alert. Mental status is at baseline. She is disoriented. Psychiatric: Behavior: Behavior normal. Labs: Recent Results (from the past 72 hours) Glucose, Nova Meter Collection Time: 06/05/25 5:29 PM Result Value Ref Range POC-GLUCOSE 110 70 - 110 mg/dL Electric Organ Checker [id number] Glucose, Nova Meter Collection Time: 06/05/25 9:34 PM Result Value Ref Range POC-GLUCOSE 87 70 - 110 mg/dL Electric Organ Checker [id number] Glucose, Nova Meter Collection Time: 06/06/25 12:16 AM Result Value Ref Range POC-GLUCOSE 112 (H) 70 - 110 mg/dL Electric Organ Checker [id number] Basic Metabolic Panel Collection Time: 06/06/25 4:24 AM Result Value Ref Range Sodium 145 136 - 145 meq/L Potassium 4.2 3.4 - 5.1 meq/L CO2 31 (H) 22 - 29 meq/L Chloride 100 98 - 112 meq/L Glucose 111 82 - 115 mg/dL BUN 68.2 (H) 9.8 - 20.1 mg/dL Creatinine 4.17 (H) 0.57 - 1.11 mg/dL BUN/Creatinine 16 8 - 20 Calcium 8.3 (L) 8.4 - 10.2 mg/dL Anion Gap 18 (H) 4 - 12 eGFR (mL/min/1.73m2) 10 (L) >=60 mL/min/1.73m2 Osmolality Calc 309.2 mOsm/kg CBC with automated diff Collection Time: 06/06/25 4:24 AM Result Value Ref Range WBC 4.1 4.0 - 10.0 K/??L RBC 3.14 (L) 3.93 - 5.22 M/??L Hemoglobin 8.7 (L) 11.2 - 15.7 GM/DL Hematocrit 29.0 (L) 34.1 - 44.9 % MCV 92 79 - 95 fL MCH 27.7 25.6 - 32.2 pg MCHC 30.0 (L) 32.2 - 35.5 GM/DL RDW 17.4 (H) 11.7 - 14.4 % Platelets 79 (L) 140 - 375 K/CU MM MPV 11.7 9.4 - 12.3 fL % Neutros 70 34 - 71 % % Lymphs 17 (L) 19 - 52 % % Monos 9 5 - 13 % % Eos 2 1 - 6 % % Baso 0 0 - 1 % NRBC Absolute <0.01 0 - 0.012 K/ul # Neutros 2.90 1.56 - 6.13 K/??L # Lymphs 0.69 (L) 1.18 - 3.74 K/??L # Monos 0.39 0.24 - 0.86 K/??L # Eos 0.09 0.04 - 0.36 K/??L # Baso <0.03 0.01 - 0.08 K/ L % Imm Grans 1.40 (H) 0.01 - 0.43 % # IG 0.06 (H) 0.00 - 0.03 K/uL Magnesium Collection Time: 06/06/25 4:24 AM Result Value Ref Range Magnesium 1.8 1.6 - 2.6 mg/dL Glucose, Nova Meter Collection Time: 06/06/25 6:24 AM Result Value Ref Range POC-GLUCOSE 97 70 - 110 mg/dL Electric Organ Checker [id number] ECG 12 lead Collection Time: 06/06/25 7:24 AM Result Value Ref Range SYSTOLIC BLOOD PRESSURE (MCT) 128 mmHg DIASTOLIC BLOOD PRESSURE (MCT) 58 mmHg VENTRICULAR RATE EKG/MIN 68 BPM ATRIAL RATE (MCT) 68 BPM QRS-INTERVAL (MSEC) 128 ms QT Interval 414 ms QTC Interval 440 ms R AXIS (MCT) 37 degrees T Wave [place] 72 degrees [place] Diagnosis Sinus arrhythmia Right bundle branch block Abnormal ECG When compared with ECG of 06-JUN-2025 07:23, Previous ECG has undetermined rhythm, needs review Confirmed by Brandyn LOA STEVE ([id number]) on 06/06/2025 10:14:40 AM Glucose, Nova Meter Collection Time: 06/06/25 11:36 AM Result Value Ref Range POC-GLUCOSE 152 (H) 70 - 110 mg/dL Electric Organ Checker [id number] Glucose, Nova Meter Collection Time: 06/06/25 4:38 PM Result Value Ref Range POC-GLUCOSE 134 (H) 70 - 110 mg/dL Electric Organ Checker [id number] ECG 12 lead Collection Time: 06/06/25 8:45 PM Result Value Ref Range SYSTOLIC BLOOD PRESSURE (MCT) 135 mmHg DIASTOLIC BLOOD PRESSURE (MCT) 62 mmHg VENTRICULAR RATE EKG/MIN 74 BPM ATRIAL RATE (MCT) 61 BPM QRS-INTERVAL (MSEC) 140 ms QT Interval 402 ms QTC Interval 446 ms R AXIS (MCT) 25 degrees T Wave [place] 39 degrees [place] Diagnosis Atrial fibrillation Right bundle branch block Abnormal ECG When compared with ECG of 06-JUN-2025 07:24, No significant change was found Confirmed by Mo Peter ([id number]) on 06/07/2025 8:46:00 PM Glucose, Nova Meter Collection Time: 06/07/25 12:06 AM Result Value Ref Range POC-GLUCOSE 160 (H) 70 - 110 mg/dL Electric Organ Checker [id number] Basic Metabolic Panel Collection Time: 06/07/25 4:23 AM Result Value Ref Range Sodium 147 (H) 136 - 145 meq/L Potassium 4.0 3.4 - 5.1 meq/L CO2 32 (H) 22 - 29 meq/L Chloride 103 98 - 112 meq/L Glucose 121 (H) 82 - 115 mg/dL BUN 66.4 (H) 9.8 - 20.1 mg/dL Creatinine 3.64 (H) 0.57 - 1.11 mg/dL BUN/Creatinine 18 8 - 20 Calcium 8.5 8.4 - 10.2 mg/dL Anion Gap 16 (H) 4 - 12 eGFR (mL/min/1.73m2) 12 (L) >=60 mL/min/1.73m2 Osmolality Calc 312.9 mOsm/kg CBC with automated diff Collection Time: 06/07/25 4:23 AM Result Value Ref Range WBC 4.4 4.0 - 10.0 K/??L RBC 2.92 (L) 3.93 - 5.22 M/??L Hemoglobin 8.2 (L) 11.2 - 15.7 GM/DL Hematocrit 27.4 (L) 34.1 - 44.9 % MCV 94 79 - 95 fL MCH 28.1 25.6 - 32.2 pg MCHC 29.9 (L) 32.2 - 35.5 GM/DL RDW 17.0 (H) 11.7 - 14.4 % Platelets 61 (L) 140 - 375 K/CU MM MPV 11.3 9.4 - 12.3 fL % Neutros 73 (H) 34 - 71 % % Lymphs 13 (L) 19 - 52 % % Monos 10 5 - 13 % % Eos 2 1 - 6 % % Baso 0 0 - 1 % NRBC Absolute <0.01 0 - 0.012 K/ul # Neutros 3.20 1.56 - 6.13 K/??L # Lymphs 0.59 (L) 1.18 - 3.74 K/??L # Monos 0.43 0.24 - 0.86 K/??L # Eos 0.10 0.04 - 0.36 K/??L # Baso <0.03 0.01 - 0.08 K/ L % Imm Grans 1.40 (H) 0.01 - 0.43 % # IG 0.06 (H) 0.00 - 0.03 K/uL Magnesium Collection Time: 06/07/25 4:23 AM Result Value Ref Range Magnesium 1.7 1.6 - 2.6 mg/dL Glucose, Nova Meter Collection Time: 06/07/25 6:21 AM Result Value Ref Range POC-GLUCOSE 119 (H) 70 - 110 mg/dL Electric Organ Checker [id number] ECG 12 lead Collection Time: 06/07/25 7:49 AM Result Value Ref Range SYSTOLIC BLOOD PRESSURE (MCT) 120 mmHg DIASTOLIC BLOOD PRESSURE (MCT) 85 mmHg VENTRICULAR RATE EKG/MIN 69 BPM ATRIAL RATE (MCT) 69 BPM GA Interval 220 ms QRS-INTERVAL (MSEC) 132 ms QT Interval 406 ms QTC Interval 435 ms P [place] 63 degrees R AXIS (MCT) 60 degrees T Wave [place] 82 degrees [place] Diagnosis Sinus rhythm with 1st degree AV block with premature supraventricular complexes Right bundle branch block Abnormal ECG When compared with ECG of 06-JUN-2025 20:45, Sinus rhythm has replaced Atrial fibrillation Confirmed by Mo Peter ([id number]) on 06/07/2025 8:58:06 PM Glucose, Nova Meter Collection Time: 06/07/25 11:29 AM Result Value Ref Range POC-GLUCOSE 132 (H) 70 - 110 mg/dL Electric Organ Checker [id number] Glucose, Nova Meter Collection Time: 06/07/25 5:44 PM Result Value Ref Range POC-GLUCOSE 127 (H) 70 - 110 mg/dL Electric Organ Checker [id number] Glucose, Nova Meter Collection Time: 06/07/25 11:40 PM Result Value Ref Range POC-GLUCOSE 94 70 - 110 mg/dL Electric Organ Checker [id number] Basic Metabolic Panel Collection Time: 06/08/25 2:55 AM Result Value Ref Range Sodium 152 (HH) 136 - 145 meq/L Potassium 3.7 3.4 - 5.1 meq/L CO2 33 (H) 22 - 29 meq/L Chloride 106 98 - 112 meq/L Glucose 94 82 - 115 mg/dL BUN 62.9 (H) 9.8 - 20.1 mg/dL Creatinine 3.01 (H) 0.57 - 1.11 mg/dL BUN/Creatinine 21 (H) 8 - 20 Calcium 8.9 8.4 - 10.2 mg/dL Anion Gap 17 (H) 4 - 12 eGFR (mL/min/1.73m2) 15 (L) >=60 mL/min/1.73m2 Osmolality Calc 319.4 mOsm/kg CBC with automated diff Collection Time: 06/08/25 2:55 AM Result Value Ref Range WBC 4.1 4.0 - 10.0 K/??L RBC 3.30 (L) 3.93 - 5.22 M/??L Hemoglobin 9.3 (L) 11.2 - 15.7 GM/DL Hematocrit 31.0 (L) 34.1 - 44.9 % MCV 94 79 - 95 fL MCH 28.2 25.6 - 32.2 pg MCHC 30.0 (L) 32.2 - 35.5 GM/DL RDW 16.8 (H) 11.7 - 14.4 % Platelets 70 (L) 140 - 375 K/CU MM MPV 11.3 9.4 - 12.3 fL % Neutros 70 34 - 71 % % Lymphs 14 (L) 19 - 52 % % Monos 9 5 - 13 % % Eos 3 1 - 6 % % Baso 0 0 - 1 % NRBC Absolute <0.01 0 - 0.012 K/ul # Neutros 2.84 1.56 - 6.13 K/??L # Lymphs 0.55 (L) 1.18 - 3.74 K/??L # Monos 0.37 0.24 - 0.86 K/??L # Eos 0.11 0.04 - 0.36 K/??L # Baso <0.03 0.01 - 0.08 K/ L % Imm Grans 4.20 (H) 0.01 - 0.43 % # IG 0.17 (H) 0.00 - 0.03 K/uL Glucose, Nova Meter Collection Time: 06/08/25 5:53 AM Result Value Ref Range POC-GLUCOSE 99 70 - 110 mg/dL Electric Organ Checker [id number] Glucose, Nova Meter Collection Time: 06/08/25 12:03 PM Result Value Ref Range POC-GLUCOSE 119 (H) 70 - 110 mg/dL Electric Organ Checker [id number] Imaging: XR chest AP portable Result Date: 06/07/2025 PORTABLE CHEST 06/07/2025 2:27 AM HISTORY: Shortness of breath. COMPARISON: Chest x-ray from approximately 11 hours prior. FINDINGS: The heart is stable in size . There has been interval improvement in the perihilar opacities. Small pleural effusions are stable. There is no pneumothorax . There has been interval improvement . Continued follow up recommended . Images reviewed, interpreted, and dictated by Dr. Marisela Luther. Transcribed by Estela Bueno PA-C. XR chest AP portable Result Date: 06/07/2025 Portable chest HISTORY: Shortness of breath FINDINGS: Comparison date 06/04/2025. An enteric tube has been placed rectum towards the left upper quadrant although tip is not included. There are worsening bibasilar infiltrates. There may be a small right effusion. There are low lung volumes with poorinspiration. Heart size is normal. Worsening bibasilar lung infiltrates, which may represent atelectasis and/or pneumonia. XR KUB PORTABLE Result Date: 06/05/2025 SINGLE VIEW ABDOMEN HISTORY: Feeding tube adjustment. COMPARISON: June 04, 2025. ABDOMEN: Singleview of the abdomen demonstrates a nonspecific bowel gas pattern. No abnormal calcifications are identified. There is a feeding tube identified with the tip at the junction of the second and third portion of the duodenum. Nonspecific bowel gas pattern. Feeding tube tip terminates at the junction of the second and third portion of the duodenum. Images reviewed, interpreted, and dictated by Dr. Lino Main. Transcribed by Estela Bueno PA-C. CT CHEST WITHOUT IV CONTRAST Result Date: 06/05/2025 CT SCAN OF THE CHEST WITHOUT CONTRAST 06/05/2025 10:51 AM HISTORY: Pneumonia, unresolved. PROCEDURE: Axial CT images were obtained from the lung apex to the mid abdomen without IV contrast. Coronal and sagittal reformatted images generated from the axial data set and provided for interpretation. This study was performed with techniques to keep radiation doses as low as reasonably achievable, (ALARA). Individualized dose reduction techniques using automated exposure control or adjustment of mA and/or kV according to the patient size were employed. COMPARISON: None. FINDINGS: CHEST: Lack of IV contrast somewhat limits evaluation of the thoracic viscera. Lungs/Pleura: There is severe emphysema. There is severe bronchial wall thickening in the bilateral mid and lower lung zones. Patchy peribronchial consolidations are consistent with bronchopneumonia. There is superimposed atelectasis. No pneumothorax or pleural effusion. Heart, vessels and mediastinum: The heart is normal in size. No erika cardial effusion. There is enlargement of the pulmonary arteries, at to 42 mm. This is consistent with pulmonary arterial hypertension. Coronary artery disease is present. Lymph nodes: No pathologically enlarged thoracic lymph nodes within the limits of a noncontrast-enhanced examination. Chest wall: No acute findings. Bones: No acute fracture. Upper abdomen: Gallbladder is distended with gallston es. There is no evidence of acute cholecystitis. A feeding tube is in place. Bronchopneumonia with superimposed atelectasis. Images reviewed, interpreted, and dictated by Dr. Lino Main. Transcribed by Estela Bueno PA-C. XR KUB PORTABLE Result Date: 06/04/2025 KUB 06/04/2025 2:50 PM HISTORY: Feeding tube placement. COMPARISON: None. FINDINGS: A single view of the abdomen was performed. The feeding tube is identified below the diaphragm at the junction of the second and third portions of duodenum. There is a nonspecific, nonobstructive bowel gas pattern. Corpak feeding tube tip terminates in the second and third portions of duodenum. Images reviewed, interpreted, and dictated by Dr. Matt Lund. Transcribed by Marzena Menendez PA-C. Ultrasound renal limited Result Date: 06/04/2025 RENAL ULTRASOUND HISTORY: Acute kidney injury. PROCEDURE: Ultrasound images of the kidneys were obtained. FINDINGS: Limited images of the liver parenchyma demonstrate normal echogenicity . There are gallstones within the gallbladder. The right kidney measures 10 cm in length. It is normal echogenicity . There is no hydronephrosis . The left kidney measures 11 cm in length. It is normal echogenicity . There is no hydronephrosis . Normal renal ultrasound . Images reviewed, interpreted, and dictated by Dr. Marisela Luther. Transcribed by Maryam Duran PA-C. 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 HR: 60 bpmPatient Status: Routine IP Study Location: PortableTechnical Quality: Adequate visualization History/Tech Notes: Indication: altered mental [id number] Impression: Definity ultrasound enhancing agent administered for endocardial border definition. ######################################## Normal sized left ventricle. Mild left ventricular hypertrophy. Visually estimated ejection fraction 55% +/- 5%. Normal left ventricular systolic function with normal systolic strain pattern. Normal left ventricular diastolic function. Normal right ventricular size and function. No hemodynamically significant valvular heart disease. ######################################## Measurements Summary: LVEDd: 3.77 cm LVESd: 2.47 cm IVSEd: 1.28 cm AO Root:3.08 cm LVPWd: 0.8 cm Contractility Score Normal Left Ventricular contractility was noted. LV regional wall motion: (0-Not visualized 1-Normal 2-Hypokinesis 3-Akinesis 4- Dyskinesis 5-Aneurysm) Left Ventricle Peak E-wave: 0.97 Peak A-wave: 1.16 m/s E/A ratio: 0.83 m/s Volume [id number] LV length: 7.95cm CO: 5.84 l/min ml CI: 2.95 l/min*m^2 Volume [id number] ml LVOT diameter: 2.11 cm Normal sized left ventricle. Mild left ventricular hypertrophy. Visually estimated ejection fraction 55% +/- 5%.Normal left ventricular systolic function with normal systolic strain pattern. Normal left ventricular diastolic function. No left ventricular masses or thrombi. Right Ventricle Diastolic dimension: 3.39 RV systolic pressure: 24.99 mmHg cm Normal sized right ventricle. Normal TAPSE c/w normal rightventricular function Left Atrium LA dimension: 3.85 cm LA volume:48.99 ml LA/Aorta: 1.25 Normal sized left atrium. Normal left atrial volume index 24.74 ml/m^2. Intact atrial septum. No atrial mass or thrombus. Right Atrium Abnormal right atrial size. Intact atrial septum. No atrial mass or thrombus. Mitral Valve Deceleration time: Mean velocity: 0.8 178.78 msec Area (continuity): m/s 2.95 cm^2 Mean gradient: 2.84 mmHg Peak gradient: 6.38 mmHg Structurally normal mitral valve. Mitral valve annulus calcification. Mild (1+) mitral regurgitation. No mitral stenosis. No masses or vegetations seen. Aortic Valve LVOT VTI: 27.84 cm Mildly thickend free edges of the aortic valve leaflets. Trace aortic valve regurgitation. No aortic stenosis. No masses or vegetations seen. Tricuspid Valve TR velocity: 2.06 m/s TR gradient: 16.97203 mmHg Estimated RAP: 8 mmHg RVSP: 24.99 mmHg Structurally normal tricuspid valve. Trace tricuspid regurgitation. No tricuspid stenosis. No masses or vegetations seen. Pulmonic Valve Acceleration time: 74.22 msec PASP: 24.99 mmHg Structurally normal pulmonic valve. Abnormal pulmonary acceleration time. Trace pulmonic valve regurgitation. No pulmonic stenosis. No masses or vegetations seen. Great Vessels Aorta Aortic Root: 3.08 cm Ascending Aorta: 3.12 cm LVOT Diameter: 2.11 cm Visualized thoracic aorta is normal. Normal aortic root. No evidence of dissection. Dilated IVC with partial inspiratory collapse. Borderline elevated central venous pressure (8-12mmHg). Pericardium / Pleura No pericardial effusion. XR chest AP portable Result Date: 06/04/2025 PORTABLE CHEST 06/04/2025 9:06 AM HISTORY: Acute shortness of breath COMPARISON: 6 hours prior FINDINGS: The heart is mildly enlarged. The mediastinum is unremarkable. Lungs are underinflated with chronic changes throughout both lungs. There is bibasilar atelectasis. There is no pneumothorax. The osseous structures are unremarkable. No acute cardiopulmonary process. Images reviewed, interpreted, and dictated by Dr. Matt Lund. Transcribed by Marzena Menendez PA-C. XR chest AP portable Result Date: 06/04/2025 PORTABLE CHEST 06/04/2025 1:44 AM HISTORY: Acute shortness of breath. COMPARISON: May 18, 2020. FINDINGS: The heart is normal in size . The mediastinum is unremarkable . Lungs are underinflatedwith mild chronic changes in the bases. There is no pneumothorax . No acute cardiopulmonary process . Images reviewed, interpreted, and dictated by Dr. Matt Lund. Transcribed by Pal Cosby PA-C Assessment: Acute kidney injury likely ATN on stage III CKD Hyperkalemia, resolved HAG Metabolic acidosis Uremic and Lactic, resolved Encephalopathy, likely metabolic Thrombocytopenia H/o essential HTN Type II DM Obesity Chronic hypoxemic respiratory failure BRIDGETTE Pneumonia Hypernatremia Plan: -Renal function continue to gradually improve. No need for INTEGRITY CONSULTANT at this time. -Increased free water to address evolving hypernatremia and start short trial of hypotonic solution. -Hyperkalemia and Metabolic acidosis had resolved -Held home meds Irbesartan, Spironolactone, Metformin, and Farxiga. -Initiated RICHIE work up -Avoidance of nephrotoxins -Renal dosing of meds -Follow renal function, electrolytes, I/O, and acid base status very closely -Further management of other medical problems is per primary team and other specialities Thank you for this interesting consultation. Please do not hesitate to contact me with any questionor concern regarding this patient at [phone]. * Olivia Casas RD - 06/08/2025 9:[address] ADIME NUTRITION ASSESSMENT ADIME Nutrition Assessment The patient is a 84 y.o. female presenting with AMS and s/p fall. Present on Admission: Acute renal failure (ARF) (HCC) Acute resp failure Pna Acute metabolic encephalopathy Nutrition Evaluation Type: Follow Up Reason for Evaluation: MST=2 (2-13# wt loss, decreased intakes) Subjective Comments: 06/08: High f/up. Pt on 3L oxymask. Pulled Corpak overnight. BETTING CLERKS eval this am, recommending continued NPO status. Plan to replace Corpak and resume TF. Orders remain in place. Plan to d/c D5 once TF restarted with 40 ml FW. 06/07: RD check on. Pt remains in ICU, on 6L NC. Corpak placed in duodenum and Nepro started. Running @ 40 ml/hr, goal @ 45 ml/hr. 06/05: Pt remains in ICU, on oxymask. Consult received for TF. Noted per pulmonary- pt with possible aspiration. Corpak placed. KUB pending. Diet still in place, spoke with RN/pulmonary- ok to make pt NPO at this time. 06/04: Screened pt for MST=2. Pt admitted for AMS, s/p falls. Pt passed BETTING CLERKS eval, on soft and bite sized diet. Intakes establishing. Not much wt hx in EMR to determine wt loss. Pt is not appropriate for interview at this time. Will continue to assess for PCM as able. Noted K+ elevated, will add restriction for now. Past Medical/Surgical History: Past Medical History: Diagnosis Date Asthma Chronic kidney disease Emphysema lung (HCC) History of degenerative disc disease Hypertension Lumbar radiculopathy No past surgical history on file. Vitals and Basic Assessment: Vitals: Vitals: 06/08/25 0814 BP: Pulse: Resp: 16 Temp: SpO2: 95% Oxygen: 3L oxymask Julian Scale: Julian Scale Score: 13 Last BM: Last BM Date: 06/05/25 (+miralax) GI Symptoms: WDL Edema: Edema: Generalized Skin: ? PU to coccyx per nsg Allergies: Allergies Allergen Reactions Azithromycin Ceftriaxone Pollen Extracts Scheduled Medications: Current Facility-Administered Medications Medication Dose Route Frequency Provider Last Rate Last Admin acetaminophen (TYLENOL) tablet 650 mg 650 mg oral Q6H PRN Sima Mancia MD aztreonam (AZACTAM) 500 mg in sodium chloride 0.9 % (NS) 100 mL IVPB 500 mg intravenous Q12H MD Cherelle IVPB Stopped at 06/07/25 2359 budesonide (PULMICORT) nebulizer suspension 0.5 mg 0.5 mg nebulization 2 times daily Sima Mancia MD 0.5 mg at 06/08/25 0811 dextrose 5 % infusion 75 mL/hr intravenous Continuous Marcus Bazan, DO 75 mL/hr at 06/08/25 0627 75 mL/hr at 06/08/25 0627 dextrose 50% (D50W) injection 25 g 25 g intravenous Q15 Min PRN Sima Mancia MD doxycycline (VIBRAMYCIN) 100 mg in sodium chloride 0.9 % (NS) MADELEINE IVPB 100 mg intravenous Q12H Octavio Odell MD IVPB Stopped at 06/08/25 0912 famotidine (PEPCID) tablet 20 mg 20 mg oral Daily Sima Mancia MD 20 mg at 06/07/25 0843 glucagon injection 1 mg 1 mg intraMUSCULAR Q15 Min PRN Sima Mancia MD glucose chew tab 16 g 16 g oral Q15 Min PRAmelie Mancia MD heparin injection 5,000 Units 5,000 Units subcutaneous Q8H Octavio Odell MD 5,000 Units at 06/08/25 0559 hydrALAZINE (APRESOLINE) injection 10 mg 10 mg intravenous Q6H PRN Sima Mancia MD 10 mg at 06/07/25 2121 insulin regular (HUMULIN R,NOVOLIN R) injection 0-6 Units subcutaneous Q6H FELICITA Crowley-C2 Units at 06/07/25 0025 ipratropium-albuteroL (DUO-NEB) 0.5 mg-3 mg(2.5 mg base)/3 mL nebulizer solution 3 mL 3 mL nebulization 2 times daily Sima Mancia MD 3 mL at 06/08/25 0811 ondansetron (ZOFRAN) injection 4 mg 4 mg intravenous Q6H PRN Sima Mancia MD polyethylene glycol (GLYCOLAX) packet 17 g 17 g oral Daily PRN Sima Mancia MD polyethylene glycol (GLYCOLAX) packet 17 g 17 g oral Daily Octavio Odell MD 17 g at 06/07/25 0842 Saccharomyces boulardii (FLORASTOR) capsule 250 mg 250 mg oral BID Sima Mancia MD 250 mg at 06/07/25 0843 sennosides-docusate sodium (SENOKOT S) 8.6-50 mg tablet 1 tablet 1 tablet oral BID PRN Sima Mancia MD sodium polystyrene sulf-sorbtL 15-20 gram/60 mL suspension 60 g 60 g oral Once Holger Mishra MD Drips: D5 @ 75 ml/hr (306 kcal) Recent Labs 06/06/2542306/06/2524 06/07/25 0423 06/07/25 0621 06/07/25 2340 06/08/25 0255 06/08/25 0553 NA 145 -- 147* -- -- 152* -- K 4.2 -- 4.0 -- -- 3.7 -- CO2 31* -- 32* -- -- 33* -- BUN 68.2* -- 66.4* -- -- 62.9* -- CREATININE 4.17* -- 3.64* -- -- 3.01* -- GLUCOSE 111 < > 121* < > 94 94 99 CALCIUM 8.3* -- 8.5 -- -- 8.9 -- HGB 8.7* -- 8.2* -- -- 9.3* -- HCT 29.0* -- 27.4* -- -- 31.0* -- < > = values in this interval not displayed. PLT 70 No results found for: HGBA1C Anthropometrics: Ht: Height: 170.2 cm (5' 7 ) Wt: Weight: 86.7 kg (191 lb 2.2 oz) (06/04) Wt hx: 194# (05/25/25) BMI: Body mass index is 29.94 kg/m??. Wt Change: fairly stable UBW: UTO IBW: 135# Percent IBW: 141% Current Nutrition Intake: Diet Orders: Diet Order(s): NPO diet Supplements: Diet Supplements: None, NPO Intake: NPO Enteral Nutrition? no, Corpak pulled Diet Experience and Nutrition History: Previous Nutrition Education: Unknown Diet Education Provided: pt not appropriate at this time Nutrition Focused Physical Exam: Date performed: 06/04 - unable to assess Physical signs of fat or muscle wasting with severity: UTO Energy intake hx: UTO Wt loss: UTO Assessment of Malnutrition: Unable to complete malnutrition evaluation at this time. Nutrition Diagnoses: Problem #1: Predicted Sub Optimal Intake Etiology: inability to meet metabolic demand Signs/Symptoms: MST=2 Status: New Problem #2: Inadequate Oral Intake Etiology: AMS Signs/Symptoms: NPO, need for TF Status: Ongoing Nutrition Interventions and Recommendations: Collaboration with other providers and Enteral nutrition Nutrition Monitoring and Goals: - Once Corpak replaced, resume Nepro @ 45 ml/hr (1782 kcal, 81 gm pro). FW per MD *adjust to standard formula prn Goal: meet >80% of et needs - Rec BETTING CLERKS re-eval prior to restarting diet (rec 60g CHO diet with ONS prn) Goal: safe PO - Obtain wt 2x weekly Goal: avoid involuntary significant wt change - Monitor elytes/renal fxn Goal: wnls - Assess for PCM as able Goal: accurate PCM diagnosis Nutrition Risk Level: High Risk Olivia Casas RD * Melony Acevedo, [facility]ET[facility] - 06/08/2025 9:20 AM EDT Images from the original note were not included. [facility] Speech Language Pathology Clinical Swallow Evaluation Initial evaluation Therapy Diagnosis: Decreased mentation impacting safety of swallow Recommendations: NPO with non-oral meds and nutrition Patient Name: Kirstie Nascimento Birthday: 1940 Age: 84 y.o. Today: 06/08/2025 Time: includes time spent for nursing collaboration, chart and systems review, and clinical reasoning. Mental status:Confused and Drowsy Pain: [address] Faces History Additional History: 84-year-old female who presented to an outlying facility from the longterm for altered mental status. Patient has a past medical history including type 2 diabetes mellitus, chronic hypoxemic respiratory failure, chronic kidney disease, BRIDGETTE, hyperlipidemia, depression, GERD. Her mental status has deteriorated over the past couple of days with on and off confusion. Speech and Dysphagia History: NA Intubation History:NA Patient Active Problem List Diagnosis Acute renal failure (ARF) ([facility]) Past Medical History: Diagnosis Date Asthma Chronic kidney disease Emphysema lung ([facility]) History of degenerative disc disease Hypertension Lumbar radiculopathy No past surgical history on file. Diet prior to admission:regular Current diet: NPO diet Diet tube feeding continuous TF Formula: Nepro Subjective RN okayed evaluation Objective Respiratory Status: Simple masks Oral Mechanism Exam: unable to assess and due to impaired mentation Dentition :Adequate Oral hygiene: WFL Secretion Management: functional Vocal Quality: adequate Cough: - Volitional :Could not assess due to impaired mentation - Reflexive : weak Oral Care Completed: yes Oral Feeding Trials: Positioning: upright at 90' Feeding assistance: max assistance Consistencies Administered:ice chips and thin Sofie Swallow Test: not tested due to impaired mentation The three ounce water test -- or Sofie Swallow Protocol -- is a test that identifies patients who may be aspirating. Patients are instructed to drink three ounces of room temperature water consecutively until the cup is empty. This test has high sensitivity/specificity at identifying aspiration, per current research. (Sarah Schmidt. & Genesis Lezama, 2014) Assessment Cognitive/Communication Status: Patient unable to follow commands during evaluation Summary: Patient seen clinical swallow evaluation. Patient awake but confusion. Oral care completed. Patient made no attempt to accept PO therefore BETTING CLERKS placed ice chips in oral cavity. No attempt at mastication noted. Patient let tsp trials of thin fall from oral cavity. When straw trials of thin attempted, patient pull into straw instead. Impaired mentation definite factor at this time. Discussed with RN. BETTING CLERKS will follow. Prognosis: Good Patient Education:Instructed, Needs reinforcement, and Patient Results and recommendations of this evaluation were communicated to RN/MD Plan Therapy Frequency: 5x per week Follow up Imaging: Not indicated at this time Photo Printer Goals: 1.Establish safe PO diet Personal Goals:Did not state Short Term Goals: 1.Patient will participate in re-evaluation of swallow function. BETTING CLERKS Recommendation at Discharge:Patient will need ongoing BETTING CLERKS services at discharge targeting dysphagia This will serve as a discharge statement if patient is discharged before further visits. Electronically signed by Melony Acevedo CCC-BETTING CLERKS - 06/08/2025 - 10:44 AM EDT BETTING CLERKS Evaluation Completed * Bela Abel MD - 06/08/2025 9:06 AM EDT Images from the original note were not included. Pulm/CC Date of consultation: 06/03/2025 Reason for consultation: ICU admission, renal failure Chief complaint: Weakness History of present illness: Patient is an 84-year-old female who presented to an outlying facility from the longterm for altered mental status. Patient has a past medical history including type 2 diabetes mellitus, chronic hypoxemic respiratory failure, chronic kidney disease, BRIDGETTE, hyperlipidemia, depression, GERD. Her mental status has deteriorated over the past couple of days with on and off confusion. Per report she has had multiple ground-level falls without trauma. In the emergency department her blood pressure was 105/44 with a heart rate in the 60s. She does have chronic respiratory failure and typically wears 2 L O2. Her initial laboratory data revealed sodium 140, potassium 7.2, serum CO2 24, serum creatin ine 6.00, glucose 115, WBC 8.5. Patient had a CT scan of the head that revealed no acute abnormalities. CT scan revealed diffuse patchy infiltrate noted throughout the right mid and lower lung. Patient was transferred to [facility] and admitted to the ICU. Pulmonary/critical care consulted for ICU admission. At time of evaluation, patient is awake, answering most questions appropriately. On 2 L O2 with adequate saturation. Hemodynamically stable not requiring vasopressors. No family present at bedside. She denies nausea, vomiting, diarrhea. No chest pain. 06/04 seen examined today, encephalopathic, confused, awake but not oriented, hypoxic 8 L nasal cannula bicarb drip, Azactam/Doxy, chest x-ray right lung infiltrate. Pneumonia panel pending, magnesium replaced, creatinine 5.35, urine output 300 cc. Nephrology following, ultrasound kidney pending 06/05: Seen and examined, awake, follow commands, 5 L nasal cannula, hemodynamically stable, afebrile, Azactam/Doxy. Creatinine trending down 4.7, UOP 1200 cc last 24 hours, 750 cc overnight, nephrology following p.o. diet Discontinue bicarb drip CAT scan of the chest pending 06/06: Seen and examined, remains encephalopathic, but awake follow some commands, alert, not oriented, on nasal cannula 6 L, CAT scan of the chest shows bilateral lower lobe pneumonia patient doxycycline/Azactam, dysphagia: PEG tube feeding, nephrology following. Creatinine 4.16. Patient making urine, urine repeat 2 L, magnesium 1.8. Placement, potassium 4.2. Close monitoring in the ICU 06/07 Patient was seen and evaluated this morning. She is alert and oriented. On 6 L. No issues overnight. Intake to 60, output 1550, -1300. No fever. Sodium up to 147. Free water flushes increased to 30 cc/h. Potassium of 4. Bicarb of 32. Creatinine down to 3.6. Mag 1.7 on replacement. Chest x-ray showing right lung infiltration. On Corpak and tube feeding. 06/08 Patient was seen and evaluated this morning. She was questionable aspiration yesterday but her oxygenation is improving and this morning was on 3 L nasal cannula. Corpak for now. She failed swallow eval this morning. Discussed with RN to place another Corpak and start free water flushes. Sodium up to 152 overnight started on D5. Will repeat BMP at 2:00 and if sodium is improving then we will keepfree water flushes and DC fluid. She still confused. Intake 400, output 700, -300. No family at bedside PAST MEDICAL HISTORY: Past Medical History: Diagnosis Date Asthma Chronic kidney disease Emphysema lung (HCC) History of degenerative disc disease Hypertension Lumbar radiculopathy PAST SURGICAL HISTORY: Allergies: Allergies Allergen Reactions Azithromycin Ceftriaxone Pollen Extracts SOCIAL HISTORY: Social History Tobacco Use Smoking status: Former Current packs/day: 0.00 Types: Cigarettes Quit date: 2014 Years since quittin.7 Smokeless tobacco: Never Substance Use Topics Alcohol use: Never Drug use: Never FAMILY HISTORY: Family history is unknown by patient. ROS Constitutional: No fever, no weight changes HEENT: No headaches, no vision changes Cardiac: No chest pain, no palpitations, no orthopnea Pulmonary: No SOB, no TOLLIVER, no cough GI: No nausea, no vomiting, no abdominal pain, no melena, no constipation, no diarrhea : No dysuria, no hematuria, no flank pain MSK: No muscle cramping, + muscle weakness Neuro: No paresthesias, no focal deficits Skin: No rashes, no skin lesions Psych: No depression, no anxiety Vital Signs Temp: [97.4 ??F (36.3 ??C)-98.8 ??F (37.1 ??C)] 97.4 ??F (36.3 ??C) Pulse: [52-80] 52 Resp: [10-30] 16 BP: (109-196)/(55-82) 160/71 Current: Temp: 97.4 ??F (36.3 ??C) Pulse: 52 Resp: 16 BP: (!) 160/71 SpO2: 95 % 24 Hour: BP Min: 109/56 Max: 196/79 Temp Min: 97.4 ??F (36.3 ??C) Max: 98.8 ??F (37.1 ??C) Pulse Min: 52 Max: 80 Resp Min: 10 Max: 30 SpO2 Min: 90 % Max: 97 % Intake/Output: I/O last 3 completed shifts: In: 437.5 [I.V.:227.5; NG/GT:60; IV Piggyback:150] Out: 1600 [Urine:1600] Physical examination: General: Awake and answering questions. Eyes: Pupils equal, round, reactive to light, extraocular movements intact, normal conjunctiva HENT: Normocephalic, atraumatic, Supple, nontender, no carotid bruit Respiratory: Breath sounds equal bilaterally, decreased in the bases, no rhonchi or wheezing Cardiovascular: Normal rhythm, normal rate, currently with controlled rate, S1-S2 Gastrointestinal: Soft, nontender, nondistended, normoactive bowel sounds Integumentary: Warm, intact Genitourinary: Deferred MSK: No deformities, normal range of motion Neurologic: Mostly alert, answering some questions. Psychiatric: Cooperative, appropriate mood Vent / O2 Management: LABS Results for orders placed or performed during the hospital encounter of 06/03/25 (from the past 24 hours) Glucose, Nova Meter Status: Abnormal Collection Time: 06/07/25 11:29 AM Result Value Ref Range POC-GLUCOSE 132 (H) 70 - 110 mg/dL Electric Organ Checker [id number] Glucose, Nova Meter Status: Abnormal Collection Time: 06/07/25 5:44 PM Result Value Ref Range POC-GLUCOSE 127 (H) 70 - 110 mg/dL Electric Organ Checker [id number] Glucose, Nova Meter Status: None Collection Time: 06/07/25 11:40 PM Result Value Ref Range POC-GLUCOSE 94 70 - 110 mg/dL Electric Organ Checker [id number] Basic Metabolic Panel Status: Abnormal Collection Time: 06/08/25 2:55 AM Result Value Ref Range Sodium 152 (HH) 136 - 145 meq/L Potassium 3.7 3.4 - 5.1 meq/L CO2 33 (H) 22 - 29 meq/L Chloride 106 98 - 112 meq/L Glucose 94 82 - 115 mg/dL BUN 62.9 (H) 9.8 - 20.1 mg/dL Creatinine 3.01 (H) 0.57 - 1.11 mg/dL BUN/Creatinine 21 (H) 8 - 20 Calcium 8.9 8.4 - 10.2 mg/dL Anion Gap 17 (H) 4 - 12 eGFR (mL/min/1.73m2) 15 (L) >=60 mL/min/1.73m2 Osmolality Calc 319.4 mOsm/kg CBC with automated diff Status: Abnormal Collection Time: 06/08/25 2:55 AM Result Value Ref Range WBC 4.1 4.0 - 10.0 K/??L RBC 3.30 (L) 3.93 - 5.22 M/??L Hemoglobin 9.3 (L) 11.2 - 15.7 GM/DL Hematocrit 31.0 (L) 34.1 - 44.9 % MCV 94 79 - 95 fL MCH 28.2 25.6 - 32.2 pg MCHC 30.0 (L) 32.2 - 35.5 GM/DL RDW 16.8 (H) 11.7 - 14.4 % Platelets 70 (L) 140 - 375 K/CU MM MPV 11.3 9.4 - 12.3 fL % Neutros 70 34 - 71 % % Lymphs 14 (L) 19 - 52 % % Monos 9 5 - 13 % % Eos 3 1 - 6 % % Baso 0 0 - 1 % NRBC Absolute <0.01 0 - 0.012 K/ul # Neutros 2.84 1.56 - 6.13 K/??L # Lymphs 0.55 (L) 1.18 - 3.74 K/??L # Monos 0.37 0.24 - 0.86 K/??L # Eos 0.11 0.04 - 0.36 K/??L # Baso <0.03 0.01 - 0.08 K/ L Immature Granulocytes-Relative 4.20 (H) 0.01 - 0.43 % # IG 0.17 (H) 0.00 - 0.03 K/uL Glucose, Nova Meter Status: None Collection Time: 06/08/25 5:53 AM Result Value Ref Range POC-GLUCOSE 99 70 - 110 mg/dL Electric Organ Checker [id number] Radiology Radiology Results (last day) Procedure Component Value Units Date/Time XR chest AP portable [[id number]] Collected: 06/07/25 1552 Order Status: Completed Updated: 06/07/25 1609 Narrative: PORTABLE CHEST 06/07/2025 2:27 AM HISTORY: Shortness of breath. COMPARISON: Chest x-ray from approximately 11 hours prior. FINDINGS: The heart is stable in size . There has been interval improvement in the perihilar opacities. Small pleural effusions are stable. There is no pneumothorax . Impression: There has been interval improvement . Continued follow up recommended . Images reviewed, interpreted, and dictated by Dr. Marisela Luther. Transcribed by Estela Bueno PA-C. Microbiology: Microbiology Results (last 7 days) Procedure Component Value Units Date/Time Respiratory Panel [[id number]] (Normal) Collected: 06/04/251322 Order Status: Completed Specimen: Nasopharyngeal Swab Updated: 06/04/251526 ADENOVIRUS Not detected CORONAVIRUS 229E Not detected CORONAVIRUS HKU1 Not detected CORONAVIRUS NL63 Not detected CORONAVIRUS OC43 Not detected SARS-COV2/RT-PCR Not Detected HUMAN METAPNEUMOVIRUS Not detected HUMAN RHINOVIRUS/ENTEROVIRUS Not detected INFLUENZA A Not detected INFLUENZA B Not detected PARAINFLUENZA VIRUS 1 Not detected PARAINFLUENZA VIRUS 2 Not detected PARAINFLUENZA VIRUS 3 Not detected PARAINFLUENZA VIRUS 4 Not detected RESPIRATORY SYNCYTIAL VIRUS Not detected BORDETELLA PARAPERTUSSIS Not detected BORDETELLA PERTUSSIS Not detected CHLAMYDIA PNEUMONIAE Not detected MYCOPLASMA PNEUMONIAE Not detected Narrative: Testing was performed with RT-PCR methodology using the [employer] Respiratory Panel 2.1 which has FD[employer] Jacquie approval for SARS-CoV-2 testing. Negative results do not preclude infection with the SARS-CoV-2 virus and should not be used as the sole basis of patient treatment or public health decisions.Negative results must be considered in the context of an individual's recent exposures, history, and presence of clinical signs/symptoms. Follow-up testing should be performed according to the current CDC recommendations. Other viruses and bacteria not targeted by this PCR panel cannot be excluded; therefore clinical correlation and follow up of serology, culture results, and other molecular studies is required. The results are not intended to be used as the sole means for clinical diagnosis or patient management decisions. This sample was tested at the [facility] using the [employer] Respiratory Panel. It is FDA cleared and has been verified and approved by the [facility] for clinical use on nasopharyngeal swab specimens. The performance of the Film[employer] RP has not been established in individuals who received influenza vaccine. Recent administration of a nasal influenza vaccine may cause false positive results for Influenza A and/or Influenza B. MRSA Screen [[id number]] (Normal) Collected: 06/04/251322 Order Status: Completed Specimen: Nasal from Nares Updated: 06/04/251526 MRSA by PCR [facility] MRSA Not Detected by PCR Pneumonia PCR Panel w/Respiratory Culture [[id number]] Order Status: Sent Specimen: Sputum from Expectorated Narrative: The following orders were created for panel order Pneumonia PCR Panel w/Respiratory Culture. Procedure Abnormality Status --------- ------ Pneumonia PCR Panel[[id number]] Respiratory Culture[[id number]] Please view results for these tests on the individual orders. Pneumonia PCR Panel [[id number]] Order Status: Sent Specimen: Sputum from Expectorated Respiratory Culture [[id number]] Order Status: Sent Specimen: Sputum from Expectorated Strep pneumoniae urine antigen [[id number]] (Normal) Collected: 06/03/25 4160 Order Status: Completed Specimen: Urine, Unspecified Source Updated: 06/04/2511 Strep pneumoniae Antigen Presumptive negative for pneumococcal pneumonia - see comment Narrative: A presumptive negative result suggests no current or recent pneumococcal infection. Infection due to S. pneumoniae cannot be ruled out since the antigen present in the specimen may be below the detection limit of the test. Echo 06/04/25 Normal sized left ventricle. Mild left ventricular hypertrophy. Visually estimated ejection fraction 55% +/- 5%. Normal left ventricular systolic function with normal systolic strain pattern. Normal left ventricular diastolic function. Normal right ventricular size and function. No hemodynamically significant valvular heart disease. Impression: Neuro: Acute metabolic/uremic encephalopathy Ground level fall Degenerative cervical spine disease T12 compression fracture Pulmonary Acute/chronic hypoxic respiratory failure 6 L nasal cannula Bilateral lower lobe pneumonia Mild pulmonary vascular congestion CXR Former smoker possible COPD Cardiovascular History of hypertension Echo EF 55%, normal LV function, mild LVH Infectious disease Right lung pneumonia possible CAP Renal: Acute hyperkalemia-resolved Acute metabolic acidosis-resolved Acute kidney injury/CKD Hypernatremia Hematology: Chronic anemia Chronic thrombocytopenia Endocrinology Type 2 diabetes mellitus Plan: Neuro: Acute encephalopathy in setting of worsening renal failure, sepsis, pneumonia,. Patient protecting airway on nasal cannula Head CT outside facility: Reported to be negative for acute finding. CT cervical spine degenerative changes with central canal narrowing, moderate compression T12 fracture. Recommend evaluation by neurosurgery. Pulmonary acute on chronic hypoxic respiratory failure. chest x-ray CAT scan bilateral lower lobe infiltrate community-acquired pneumonia possible aspiration Started on Azactam/doxycycline plan to continue 7 days. CAT scan of the chest: Bilateral lower lobe pneumonia Respiratory viral panel: Negative MRSA screen negative Streptococcus pneumonia antigen negative Pulmicort/DuoNebs. Repeated chest x-ray yesterday evening showed improving right lung infiltration. Oxygenation is improving and currently on 3 L nasal cannula Azactam/doxycycline recommend 7 days total Cardiovascular: Hemodynamically stable. Underlying heart failure with EF, proBNP/echo normal EF, mild LVH Infectious: CBC no leukocytosis, Pro-Erasmo elevated, chest imaging suggestive of bilateral pneumonia,IV Azactam doxycycline, pneumonia workup so far negative, repeat CAT scan of the chest 6 to 8 weeksfor resolution of the pneumonia, speech evaluation, rule out aspiration Renal: RICHIE/CKD, sodium unremarkable, hyperkalemia treated with hyperkalemia cocktail, magnesium replaced Nephrology consulted, ultrasound kidney normal renal ultrasound Mild metabolic acidosis improving. Discontinued bicarb drip Patient making urine. Continue monitoring creatinine trend electrolyte Sodium up to 152. Already started on D5 at rate of 75 cc/h. Will repeat BMP at 2:00 and if sodium is improving Will DC fluid and continue free water flushes 40 cc/h after placing Corpak. GI/nutrition: Dysphagia, possible aspiration, speech, feeding LFT unremarkable, bilirubin unremarkable, bowel regimen Will place another Corpak and start tube feeding with a free water flushes today Hematology: CBC no leukocytosis, H&H stable, thrombocytopenia chronic, mild anemia chronic. Monitor H&H, platelet number Prophylaxis: Subcu heparin/Pepcid CODE STATUS full Prognosis: Guarded/poor Dispo: Will keep in ICU today because of the hypernatremia. Oxygenation is improving and currently on 3 L nasal cannula. Continue to monitor her kidney function and sodium. Free water flushes increased to 40 cc/h. On D5 at rate of 75 cc/h. PT OT evaluation given her history of fall. Neurosurgery evaluation recommended giving her T12 fracture Case discussed during round. I have personally evaluated the patient and performed a [id number] diagnostic evaluation on this patient; I have reviewed history, performed physical examination, reviewed laboratory studies. , andreviewed images independent of radiologist. I have actively directed the medical care, formulated assessemnt and plan of care. Patient requires a high complexity of decision making for assessment. 33 minutes critical care time was spent. Voice management trainee technology ([employer]) is used for dictation of this note and sound-alike words might be erroneously placed despite reviewing the note for accuracy.Errors in dictation may reflect use of voice recognition software and not all errors in management trainee may have been detectedprior to signing * Cassy Adams RN - 06/07/2025 6:27 PM EDT Per other nurse, patient's O2 saturation dropped into the mid 80s so she went to check on patient. Nurse found that patient had removed simple mask and had pulled corpak mostly out (including bridle keeping it in place). Tube feeding was stopped, Oxygen was turned up to 10 L simple mask, and patient head was raised. Physician was contacted and nurse was ordered to deep suction patient with no output noted. X-ray ordered per physician (see results), and transfer was canceled at this time. Patient is now back to 5L simple mask with oxygen saturation in the mid to high 90s. Will continue to monitor. * Holger Mishra MD - 06/07/2025 12:27 PM EDT Images from the original note were not included. Subjective: Patient was seen and examined with all infection control measures. On supplemental O2. + lethargy. Hospital Course: Kirstie Nascimento is an 84 y.o. female with PMHx of stage III CKD, DM 2, HTN, Asthma, Chronic Respiratory Failure, Arthritis, who was transferred from outside hospital after she presented there from nursing facility due to fal and altered mental status. Initial workup showed RICHIE. CXR showed patchy infiltrate R mid to lower lung. Pt was given hyperkalemia protocol and was transferred to [facility] for renal evaluation. Patient is very poor historian and unable to provide reliable history. Allergies: Azithromycin, Ceftriaxone, and Pollen Extracts Home Medications: Prior to Admission medications Medication Sig Start Date End Date Taking? Authorizing Provider calcium carbonate (OS-ERASMO) 600 mg calcium (1,500 mg) Take 600 mg by mouth daily. Yes Historical Provider, cyanocobalamin 1000 MCG tablet Take 1 tablet (1,000 mcg total) by mouth daily. Yes Historical Provider, dapagliflozin propanediol (Farxiga) 10 mg tablet Take 1 tablet (10 mg total) by mouth daily. Yes Historical Provider, escitalopram (LEXAPRO) 20 MG tablet Take 1 tablet (20 mg total) by mouth daily. Yes Historical Provider, esomeprazole (NexIUM) 40 MG capsule Take 1 capsule (40 mg total) by mouth Daily (0600). Yes Historical Provider, famotidine (PEPCID) 20 MG tablet Take 2 tablets (40 mg total) by mouth once at bedtime. Yes Historical Provider, fluticasone propion-salmeteroL (ADVAIR) 250-50 mcg/dose diskus inhaler Inhale 1 puff by mouth 2 (two) times daily. Yes Historical Provider, furosemide (LASIX) 40 MG tablet Take 1 tablet (40 mg total) by mouth daily. Yes Historical Provider, ipratropium-albuteroL (DUO-NEB) 0.5 mg-3 mg(2.5 mg base)/3 mL nebulizer solution Inhale 3 mLs by nebulization every 6 (six) hours as needed for wheezing. Yes Historical Provider, irbesartan (AVAPRO) 300 MG tablet Take 1 tablet (300 mg total) by mouth nightly. Yes Historical Provider, loperamide (IMODIUM) 2 mg capsule Take 1 capsule (2 mg total) by mouth 4 (four) times daily as needed for diarrhea. Yes Historical Provider, metFORMIN (GLUCOPHAGE) 500 MG tablet Take 1 tablet (500 mg total) by mouth 2 (two) times daily withbreakfast and dinner Look-alike/Sound-alike medication. Yes Historical Provider, metoprolol succinate (TOPROL-XL) 50 MG 24 hr tablet Take 1 tablet (50 mg total) by mouth daily. YesHistorical Provider, montelukast (SINGULAIR) 10 mg tablet Take 1 tablet (10 mg total) by mouth nightly. Yes Historical Provider, multivitamin per tablet Take 1 tablet by mouth daily. Yes Historical Provider, oxybutynin (DITROPAN) 5 MG tablet Take 4 tablets (20 mg total) by mouth daily. Yes Historical Provider, pregabalin (LYRICA) 75 MG capsule Take 1 capsule (75 mg total) by mouth 2 (two) times daily. Max Daily Amount: 150 mg Yes Historical Provider, simvastatin (ZOCOR) 20 MG tablet Take 1 tablet (20 mg total) by mouth nightly. Yes Historical Provider, spironolactone (ALDACTONE) 50 MG tablet Take 1 tablet (50 mg total) by mouth daily. Yes Historical Provider, TiZANidine (ZANAFLEX) 2 MG capsule Take 1 capsule (2 mg total) by mouth once at bedtime. Yes Historical Provider, Current Medications: Current Facility-Administered Medications: acetaminophen (TYLENOL) tablet 650 mg, 650 mg, oral, Q6H PRN, Sima Mancia MD amLODIPine (NORVASC) tablet 5 mg, 5 mg, oral, Daily, Bela Abel MD aztreonam (AZACTAM) 1 g in sodium chloride 0.9 % (NS) MBP IVPB, 1 g, intravenous, Q12H, Bela Abel MD budesonide (PULMICORT) nebulizer suspension 0.5 mg, 0.5 mg, nebulization, 2 times daily, Sima Mancia MD, 0.5 mg at 06/08/25 0811 dextrose 5 % infusion, 75 mL/hr, intravenous, Continuous, Marcus Bazan DO, Last Rate: 75 mL/hr at 06/08/25 0627, 75 mL/hr at 06/08/25 0627 dextrose 50% (D50W) injection 25 g, 25 g, intravenous, Q15 Min PRN, Sima Mancia MD doxycycline (VIBRAMYCIN) 100 mg in sodium chloride 0.9 % (NS) MADELEINE IVPB, 100 mg, intravenous, Q12H, Bela Abel MD, IVPB Stopped at 06/08/25 0912 famotidine (PEPCID) tablet 20 mg, 20 mg, oral, Daily, Sima Mancia MD, 20 mg at 06/07/25 0843 glucagon injection 1 mg, 1 mg, intraMUSCULAR, Q15 Min PRN, Sima Mancia MD glucose chew tab 16 g, 16 g, oral, Q15 Min PRN, Sima Mancia MD heparin injection 5,000 Units, 5,000 Units, subcutaneous, Q8H, Octavio Odell MD, 5,000 Units at 06/08/25 0559 hydrALAZINE (APRESOLINE) injection 10 mg, 10 mg, intravenous, Q6H PRN, Sima Mancia MD, 10 mg at 06/07/25 2121 insulin regular (HUMULIN R,NOVOLIN R) injection, 0-6 Units, subcutaneous, Q6H [facility], Stan Robles PA-C, 2 Units at 06/07/25 0025 ipratropium-albuteroL (DUO-NEB) 0.5 mg-3 mg(2.5 mg base)/3 mL nebulizer solution 3 mL, 3 mL, nebulization, 2 times daily, Sima Mancia MD, 3 mL at 06/08/25 0811 ondansetron (ZOFRAN) injection 4 mg, 4 mg, intravenous, Q6H PRN, Sima Mancia MD polyethylene glycol (GLYCOLAX) packet 17 g, 17 g, oral, Daily PRN, Sima Mancia MD polyethylene glycol (GLYCOLAX) packet 17 g, 17 g, oral, Daily, Octavio Odell MD, 17 g at 06/07/25 0842 Saccharomyces boulardii (FLORASTOR) capsule 250 mg, 250 mg, oral, BID, Sima Mancia MD, 250 mg at 06/07/25 0843 sennosides-docusate sodium (SENOKOT S) 8.6-50 mg tablet 1 tablet, 1 tablet, oral, BID PRN, Sima Mancia MD sodium polystyrene sulf-sorbtL 15-20 gram/60 mL suspension 60 g, 60 g, oral, Once, Holger Mishra MD Review of Systems Unable to perform ROS: Mental status change Vitals Blood pressure (!) 160/71, pulse 52, temperature 97.4 ??F (36.3 ??C), temperature source Axillary, resp. rate 16, height 1.702 m (5' 7 ), weight 86.7 kg (191 lb 2.2 oz), SpO2 95%. Physical Exam Vitals and nursing note reviewed. Constitutional: Appearance: She is normal weight. She is ill-appearing. HENT: Head: Normocephalic and atraumatic. Nose: Nose normal. Mouth/Throat: Pharynx: Oropharynx is clear. Eyes: Extraocular Movements: Extraocular movements intact. Conjunctiva/sclera: Conjunctivae normal. Pupils: Pupils are equal, round, and reactive to light. Cardiovascular: Rate and Rhythm: Normal rate. Rhythm irregular. Pulses: Normal pulses. Heart sounds: Normal heart sounds. Pulmonary: Effort: Pulmonary effort is normal. Breath sounds: Rhonchi and rales present. Abdominal: General: Abdomen is flat. Bowel sounds are normal. Palpations: Abdomen is soft. Musculoskeletal: General: Normal range of motion. Cervical back: Normal range of motion and neck supple. Right lower leg: Edema present. Left lower leg: Edema present. Skin: General: Skin is warm and dry. Neurological: General: No focal deficit present. Mental Status: She is alert. Mental status is at baseline. She is disoriented. Psychiatric: Behavior: Behavior normal. Labs: Recent Results (from the past 72 hours) Glucose, Nova Meter Collection Time: 06/05/25 5:29 PM Result Value Ref Range POC-GLUCOSE 110 70 - 110 mg/dL Electric Organ Checker [id number] Glucose, Nova Meter Collection Time: 06/05/25 9:34 PM Result Value Ref Range POC-GLUCOSE 87 70 - 110 mg/dL Electric Organ Checker [id number] Glucose, Nova Meter Collection Time: 06/06/25 12:16 AM Result Value Ref Range POC-GLUCOSE 112 (H) 70 - 110 mg/dL Electric Organ Checker [id number] Basic Metabolic Panel Collection Time: 06/06/25 4:24 AM Result Value Ref Range Sodium 145 136 - 145 meq/L Potassium 4.2 3.4 - 5.1 meq/L CO2 31 (H) 22 - 29 meq/L Chloride 100 98 - 112 meq/L Glucose 111 82 - 115 mg/dL BUN 68.2 (H) 9.8 - 20.1 mg/dL Creatinine 4.17 (H) 0.57 - 1.11 mg/dL BUN/Creatinine 16 8 - 20 Calcium 8.3 (L) 8.4 - 10.2 mg/dL Anion Gap 18 (H) 4 - 12 eGFR (mL/min/1.73m2) 10 (L) >=60 mL/min/1.73m2 Osmolality Calc 309.2 mOsm/kg CBC with automated diff Collection Time: 06/06/25 4:24 AM Result Value Ref Range WBC 4.1 4.0 - 10.0 K/??L RBC 3.14 (L) 3.93 - 5.22 M/??L Hemoglobin 8.7 (L) 11.2 - 15.7 GM/DL Hematocrit 29.0 (L) 34.1 - 44.9 % MCV 92 79 - 95 fL MCH 27.7 25.6 - 32.2 pg MCHC 30.0 (L) 32.2 - 35.5 GM/DL RDW 17.4 (H) 11.7 - 14.4 % Platelets 79 (L) 140 - 375 K/CU MM MPV 11.7 9.4 - 12.3 fL % Neutros 70 34 - 71 % % Lymphs 17 (L) 19 - 52 % % Monos 9 5 - 13 % % Eos 2 1 - 6 % % Baso 0 0 - 1 % NRBC Absolute <0.01 0 - 0.012 K/ul # Neutros 2.90 1.56 - 6.13 K/??L # Lymphs 0.69 (L) 1.18 - 3.74 K/??L # Monos 0.39 0.24 - 0.86 K/??L # Eos 0.09 0.04 - 0.36 K/??L # Baso <0.03 0.01 - 0.08 K/ L % Imm Grans 1.40 (H) 0.01 - 0.43 % # IG 0.06 (H) 0.00 - 0.03 K/uL Magnesium Collection Time: 06/06/25 4:24 AM Result Value Ref Range Magnesium 1.8 1.6 - 2.6 mg/dL Glucose, Nova Meter Collection Time: 06/06/25 6:24 AM Result Value Ref Range POC-GLUCOSE 97 70 - 110 mg/dL Electric Organ Checker [id number] ECG 12 lead Collection Time: 06/06/25 7:24 AM Result Value Ref Range SYSTOLIC BLOOD PRESSURE (MCT) 128 mmHg DIASTOLIC BLOOD PRESSURE (MCT) 58 mmHg VENTRICULAR RATE EKG/MIN 68 BPM ATRIAL RATE (MCT) 68 BPM QRS-INTERVAL (MSEC) 128 ms QT Interval 414 ms QTC Interval 440 ms R AXIS (MCT) 37 degrees T Wave [place] 72 degrees [place] Diagnosis Sinus arrhythmia Right bundle branch block Abnormal ECG When compared with ECG of 06-JUN-2025 07:23, Previous ECG has undetermined rhythm, needs review Confirmed by Brandyn LAO STEVE ([id number]) on 06/06/2025 10:14:40 AM Glucose, Nova Meter Collection Time: 06/06/25 11:36 AM Result Value Ref Range POC-GLUCOSE 152 (H) 70 - 110 mg/dL Electric Organ Checker [id number] Glucose, Nova Meter Collection Time: 06/06/25 4:38 PM Result Value Ref Range POC-GLUCOSE 134 (H) 70 - 110 mg/dL Electric Organ Checker [id number] ECG 12 lead Collection Time: 06/06/25 8:45 PM Result Value Ref Range SYSTOLIC BLOOD PRESSURE (MCT) 135 mmHg DIASTOLIC BLOOD PRESSURE (MCT) 62 mmHg VENTRICULAR RATE EKG/MIN 74 BPM ATRIAL RATE (MCT) 61 BPM QRS-INTERVAL (MSEC) 140 ms QT Interval 402 ms QTC Interval 446 ms R AXIS (MCT) 25 degrees T Wave [place] 39 degrees [place] Diagnosis Atrial fibrillation Right bundle branch block Abnormal ECG When compared with ECG of 06-JUN-2025 07:24, No significant change was found Confirmed by Mo Peter ([id number]) on 06/07/2025 8:46:00 PM Glucose, Nova Meter Collection Time: 06/07/25 12:06 AM Result Value Ref Range POC-GLUCOSE 160 (H) 70 - 110 mg/dL Electric Organ Checker [id number] Basic Metabolic Panel Collection Time: 06/07/25 4:23 AM Result Value Ref Range Sodium 147 (H) 136 - 145 meq/L Potassium 4.0 3.4 - 5.1 meq/L CO2 32 (H) 22 - 29 meq/L Chloride 103 98 - 112 meq/L Glucose 121 (H) 82 - 115 mg/dL BUN 66.4 (H) 9.8 - 20.1 mg/dL Creatinine 3.64 (H) 0.57 - 1.11 mg/dL BUN/Creatinine 18 8 - 20 Calcium 8.5 8.4 - 10.2 mg/dL Anion Gap 16 (H) 4 - 12 eGFR (mL/min/1.73m2) 12 (L) >=60 mL/min/1.73m2 Osmolality Calc 312.9 mOsm/kg CBC with automated diff Collection Time: 06/07/25 4:23 AM Result Value Ref Range WBC 4.4 4.0 - 10.0 K/??L RBC 2.92 (L) 3.93 - 5.22 M/??L Hemoglobin 8.2 (L) 11.2 - 15.7 GM/DL Hematocrit 27.4 (L) 34.1 - 44.9 % MCV 94 79 - 95 fL MCH 28.1 25.6 - 32.2 pg MCHC 29.9 (L) 32.2 - 35.5 GM/DL RDW 17.0 (H) 11.7 - 14.4 % Platelets 61 (L) 140 - 375 K/CU MM MPV 11.3 9.4 - 12.3 fL % Neutros 73 (H) 34 - 71 % % Lymphs 13 (L) 19 - 52 % % Monos 10 5 - 13 % % Eos 2 1 - 6 % % Baso 0 0 - 1 % NRBC Absolute <0.01 0 - 0.012 K/ul # Neutros 3.20 1.56 - 6.13 K/??L # Lymphs 0.59 (L) 1.18 - 3.74 K/??L # Monos 0.43 0.24 - 0.86 K/??L # Eos 0.10 0.04 - 0.36 K/??L # Baso <0.03 0.01 - 0.08 K/ L % Imm Grans 1.40 (H) 0.01 - 0.43 % # IG 0.06 (H) 0.00 - 0.03 K/uL Magnesium Collection Time: 06/07/25 4:23 AM Result Value Ref Range Magnesium 1.7 1.6 - 2.6 mg/dL Glucose, Nova Meter Collection Time: 06/07/25 6:21 AM Result Value Ref Range POC-GLUCOSE 119 (H) 70 - 110 mg/dL Electric Organ Checker [id number] ECG 12 lead Collection Time: 06/07/25 7:49 AM Result Value Ref Range SYSTOLIC BLOOD PRESSURE (MCT) 120 mmHg DIASTOLIC BLOOD PRESSURE (MCT) 85 mmHg VENTRICULAR RATE EKG/MIN 69 BPM ATRIAL RATE (MCT) 69 BPM GA Interval 220 ms QRS-INTERVAL (MSEC) 132 ms QT Interval 406 ms QTC Interval 435 ms P [place] 63 degrees R AXIS (MCT) 60 degrees T Wave [place] 82 degrees [place] Diagnosis Sinus rhythm with 1st degree AV block with premature supraventricular complexes Right bundle branch block Abnormal ECG When compared with ECG of 06-JUN-2025 20:45, Sinus rhythm has replaced Atrial fibrillation Confirmed by Mo Peter ([id number]) on 06/07/2025 8:58:06 PM Glucose, Nova Meter Collection Time: 06/07/25 11:29 AM Result Value Ref Range POC-GLUCOSE 132 (H) 70 - 110 mg/dL Electric Organ Checker [id number] Glucose, Nova Meter Collection Time: 06/07/25 5:44 PM Result Value Ref Range POC-GLUCOSE 127 (H) 70 - 110 mg/dL Electric [employer] Checker [id number] Glucose, Nova Meter Collection Time: 06/07/25 11:40 PM Result Value Ref Range POC-GLUCOSE 94 70 - 110 mg/dL Electric [employer] Checker [id number] Basic Metabolic Panel Collection Time: 06/08/25 2:55 AM Result Value Ref Range Sodium 152 (HH) 136 - 145 meq/L Potassium 3.7 3.4 - 5.1 meq/L CO2 33 (H) 22 - 29 meq/L Chloride 106 98 - 112 meq/L Glucose 94 82 - 115 mg/dL BUN 62.9 (H) 9.8 - 20.1 mg/dL Creatinine 3.01 (H) 0.57 - 1.11 mg/dL BUN/Creatinine 21 (H) 8 - 20 Calcium 8.9 8.4 - 10.2 mg/dL Anion Gap 17 (H) 4 - 12 eGFR (mL/min/1.73m2) 15 (L) >=60 mL/min/1.73m2 Osmolality Calc 319.4 mOsm/kg CBC with automated diff Collection Time: 06/08/25 2:55 AM Result Value Ref Range WBC 4.1 4.0 - 10.0 K/??L RBC 3.30 (L) 3.93 - 5.22 M/??L Hemoglobin 9.3 (L) 11.2 - 15.7 GM/DL Hematocrit 31.0 (L) 34.1 - 44.9 % MCV 94 79 - 95 fL MCH 28.2 25.6 - 32.2 pg MCHC 30.0 (L) 32.2 - 35.5 GM/DL RDW 16.8 (H) 11.7 - 14.4 % Platelets 70 (L) 140 - 375 K/CU MM MPV 11.3 9.4 - 12.3 fL % Neutros 70 34 - 71 % % Lymphs 14 (L) 19 - 52 % % Monos 9 5 - 13 % % Eos 3 1 - 6 % % Baso 0 0 - 1 % NRBC Absolute <0.01 0 - 0.012 K/ul # Neutros 2.84 1.56 - 6.13 K/??L # Lymphs 0.55 (L) 1.18 - 3.74 K/??L # Monos 0.37 0.24 - 0.86 K/??L # Eos 0.11 0.04 - 0.36 K/??L # Baso <0.03 0.01 - 0.08 K/ L % Imm Grans 4.20 (H) 0.01 - 0.43 % # IG 0.17 (H) 0.00 - 0.03 K/uL Glucose, Nova Meter Collection Time: 06/08/25 5:53 AM Result Value Ref Range POC-GLUCOSE 99 70 - 110 mg/dL Electric [employer] Checker [id number] Glucose, Nova Meter Collection Time: 06/08/25 12:03 PM Result Value Ref Range POC-GLUCOSE 119 (H) 70 - 110 mg/dL Electric [employer]er [id number] Imaging: XR chest AP portable Result Date: 06/07/2025 PORTABLE CHEST 06/07/2025 2:27 AM HISTORY: Shortness of breath. COMPARISON: Chest x-ray from approximately 11 hours prior. FINDINGS: The heart is stable in size . There has been interval improvement in the perihilar opacities. Small pleural effusions are stable. There is no pneumothorax . There has been interval improvement . Continued follow up recommended . Images reviewed, interpreted, and dictated by Dr. Marisela Luther. Transcribed by Estela Bueno PA-C. XR chest AP portable Result Date: 06/07/2025 Portable chest HISTORY: Shortness of breath FINDINGS: Comparison date 06/04/2025. An enteric tube has been placed rectum towards the left upper quadrant although tip is not included. There are worsening bibasilar infiltrates. There may be a small right effusion. There are low lung volumes with poorinspiration. Heart size is normal. Worsening bibasilar lung infiltrates, which may represent atelectasis and/or pneumonia. XR KUB PORTABLE Result Date: 06/05/2025 SINGLE VIEW ABDOMEN HISTORY: Feeding tube adjustment. COMPARISON: June 04, 2025. ABDOMEN: Singleview of the abdomen demonstrates a nonspecific bowel gas pattern. No abnormal calcifications are identified. There is a feeding tube identified with the tip at the junction of the second and third portion of the duodenum. Nonspecific bowel gas pattern. Feeding tube tip terminates at the junction of the second and third portion of the duodenum. Images reviewed, interpreted, and dictated by Dr. Lino Main. Transcribed by Estela Bueno PA-C. CT CHEST WITHOUT IV CONTRAST Result Date: 06/05/2025 CT SCAN OF THE CHEST WITHOUT CONTRAST 06/05/2025 10:51 AM HISTORY: Pneumonia, unresolved. PROCEDURE: Axial CT images were obtained from the lung apex to the mid abdomen without IV contrast. Coronal and sagittal reformatted images generated from the axial data set and provided for interpretation. This study was performed with techniques to keep radiation doses as low as reasonably achievable, (ALARA). Individualized dose reduction techniques using automated exposure control or adjustment of mA and/or kV according to the patient size were employed. COMPARISON: None. FINDINGS: CHEST: Lack of IV contrast somewhat limits evaluation of the thoracic viscera. Lungs/Pleura: There is severe emphysema. There is severe bronchial wall thickening in the bilateral mid and lower lung zones. Patchy peribronchial consolidations are consistent with bronchopneumonia. There is superimposed atelectasis. No pneumothorax or pleural effusion. Heart, vessels and mediastinum: The heart is normal in size. No erika cardial effusion. There is enlargement of the pulmonary arteries, at to 42 mm. This is consistent with pulmonary arterial hypertension. Coronary artery disease is present. Lymph nodes: No pathologically enlarged thoracic lymph nodes within the limits of a noncontrast-enhanced examination. Chest wall: No acute findings. Bones: No acute fracture. Upper abdomen: Gallbladder is distended with gallstones. There is no evidence of acute cholecystitis. A feeding tube is in place. Bronchopneumonia with superimposed atelectasis. Images reviewed, interpreted, and dictated by Dr. Lino Main. Transcribed by Estela Bueno PA-C. XR KUB PORTABLE Result Date: 06/04/2025 KUB 06/04/2025 2:50 PM HISTORY: Feeding tube placement. COMPARISON: None. FINDINGS: A single view of the abdomen was performed. The feeding tube is identified below the diaphragm at the junction of the second and third portions of duodenum. There is a nonspecific, nonobstructive bowel gas pattern. Corpak feeding tube tip terminates in the second and third portions of duodenum. Images reviewed, interpreted, and dictated by Dr. Matt Lund. Transcribed by Marzena Menendez PA-C. Ultrasound renal limited Result Date: 06/04/2025 RENAL ULTRASOUND HISTORY: Acute kidney injury. PROCEDURE: Ultrasound images of the kidneys were obtained. FINDINGS: Limited images of the liver parenchyma demonstrate normal echogenicity . There are gallstones within the gallbladder. The right kidney measures 10 cm in length. It is normal echogenicity . There is no hydronephrosis . The left kidney measures 11 cm in length. It is normal echogenicity . There is no hydronephrosis . Normal renal ultrasound . Images reviewed, interpreted, and dictated by Dr. Marisela Luther. Transcribed by Maryam Duran PA-C. 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 HR: 60 bpmPatient Status: Routine IP Study Location: [facility] Quality: Adequate visualization History/Tech Notes: Indication: altered mental status R40.4 Impression: Definity ultrasound enhancing agent administered for endocardial border definition. ######################################## Normal sized left ventricle. Mild left ventricular hypertrophy. Visually estimated ejection fraction 55% +/- 5%. Normal left ventricular systolic function with normal systolic strain pattern. Normal left ventricular diastolic function. Normal right ventricular size and function. No hemodynamically significant valvular heart disease. ######################################## Measurements Summary: LVEDd: 3.77 cm LVESd: 2.47 cm IVSEd: 1.28 cm AO Root:3.08cm LVPWd: 0.8 cm Contractility Score Normal Left Ventricular contractility was noted. LV regional wall motion: (0-Not visualized 1-Normal 2-Hypokinesis 3-Akinesis 4- Dyskinesis 5-Aneurysm) Left Ventricle Peak E-wave: 0.97 Peak A-wave: 1.16 m/s E/A ratio: 0.83 m/s Volume [id number] LV length: 7.95 cm CO: 5.84 l/min ml CI: 2.95 l/min*m^2 Volume wcdlpjqi78.77 ml LVOT diameter: 2.11 cm Normal sized left ventricle. Mild left ventricular hypertrophy. Visually estimated ejection fraction 55% +/- 5%. Normal left ventricular systolic function with normal systolic strain pattern. Normal left ventricular diastolic function. No left ventricular masses or thrombi. Right Ventricle Diastolic dimension:3.39 RV systolic pressure: 24.99 mmHg cm Normal sized right ventricle. Normal TAPSE c/w normal right ventricular function Left Atrium LA dimension: 3.85 cm LA volume:48.99 ml LA/Aorta: 1.25 Normal sized left atrium. Normal left atrial volume index 24.74 ml/m^2. Intact atrial septum. No atrial mass or thrombus. Right Atrium Abnormal right atrial size. Intact atrial septum. No atrial mass or thrombus. Mitral Valve Deceleration time: Mean velocity: 0.8 178.78 msec Area (continuity): m/s 2.95 cm^2 Mean gradient: 2.84 mmHg Peak gradient: 6.38 mmHg Structurally normal mitral valve. Mitral valve annulus calcification. Mild (1+) mitral regurgitation. No mitral stenosis. No masses or vegetations seen. Aortic Valve LVOT VTI: 27.84 cm Mildly thickend free edges of the aortic valve leaflets. Trace aortic valve regurgitation. No aortic stenosis. No masses or vegetations seen. Tricuspid Valve TR velocity: 2.06 m/s TR gradient: 16.44700 mmHg Estimated RAP: 8 mmHg RVSP: 24.99 mmHg Structurally normal tricuspid valve. Trace tricuspid regurgitation. No tricuspid stenosis. No masses or vegetations seen. Pulmonic Valve Acceleration time: 74.22 msec PASP: 24.99 mmHg Structurally normal pulmonic valve. Abnormal pulmonary acceleration time. Trace pulmonic valve regurgitation. No pulmonic stenosis. Nomasses or vegetations seen. Great Vessels Aorta Aortic Root: 3.08 cm Ascending Aorta: 3.12 cm LVOT Diameter: 2.11 cm Visualized thoracic aorta is normal. Normal aortic root. No evidence of dissection. Dilated IVC with partial inspiratory collapse. Borderline elevated central venous pressure (8-12mmHg). Pericardium / Pleura No pericardial effusion. XR chest AP portable Result Date: 06/04/2025 PORTABLE CHEST 06/04/2025 9:06 AM HISTORY: Acute shortness of breath COMPARISON: 6 hours prior FINDINGS: The heart is mildly enlarged. The mediastinum is unremarkable. Lungs are underinflated with chronic changes throughout both lungs. There is bibasilar atelectasis. There is no pneumothorax. The osseous structures are unremarkable. No acute cardiopulmonary process. Images reviewed, interpreted, and dictated by Dr. Matt Lund. Transcribed by Marzena Menendez PA-C. XR chest AP portable Result Date: 06/04/2025 PORTABLE CHEST 06/04/2025 1:44 AM HISTORY: Acute shortness of breath. COMPARISON: May 18, 2020. FINDINGS: The heart is normal in size . The mediastinum is unremarkable . Lungs are underinflatedwith mild chronic changes in the bases. There is no pneumothorax . No acute cardiopulmonary process . Images reviewed, interpreted, and dictated by Dr. Matt Lund. Transcribed by Pal Cosby PA-C Assessment: Acute kidney injury likely ATN on stage III CKD Hyperkalemia, resolved HAG Metabolic acidosis Uremic and Lactic, resolved Encephalopathy, likely metabolic Thrombocytopenia H/o essential HTN Type II DM Obesity Chronic hypoxemic respiratory failure BR[place]GETTE Pneumonia Hypernatremia Plan: -Renal function continue to gradually improve. No need for INTEGRITY CONSULTANT at this time. -Increase free water to address evolving hypernatremia -Hyperkalemia and Metabolic acidosis had resolved -Held home meds Irbesartan, Spironolactone, Metformin, and Farxiga. -Initiated RICHIE work up -Avoidance of nephrotoxins -Renal dosing of meds -Follow renal function, electrolytes, I/O, and acid base status very closely -Further management of other medical problems is per primary team and other specialities Thank you for this interesting consultation. Please do not hesitate to contact me with any questionor concern regarding this patient at [phone]. * Jb Turner MD - 06/07/2025 12:16 PM EDT HOSPITALIST PROGRESS NOTE Patient: Kirstie Nascimento Date: 06/07/2025 Subjective Date of Service: 06/07/2025 Patient seen and examined at bedside this AM. In ICU. Lethargic and sleepy this morning. Requiring 6 L nasal cannula. Tube feed at 40 mL/h No family at the bedside Objective Vitals: Temp: [97.7 ??F (36.5 ??C)-98.1 ??F (36.7 ??C)] 97.7 ??F (36.5 ??C) Pulse: [57-90] 63 Resp: [06-23] 16 BP: (108-154)/(55-94) 147/66 Intake/Output: Intake/Output Summary (Last 24 hours) at 06/07/2025 1216 Last data filed at 06/07/2025 1027 Gross per 24 hour Intake 160 ml Output 1550 ml Net -1390 ml Physical exam: General: Drowsy and lethargic, no acute distress Neurologic: no apparent focal deficits Eye: normal conjunctiva HENT: Normocephalic, atraumatic. Corpak in place Neck: no JVD Lungs: Poor air entry bilaterally Heart: Normal rate, regular rhythm Abdomen: nondistended Musculoskeletal: no tenderness or swelling. Chronic foot deformities Skin: Skin is warm, dry, no rashes or lesions Labs: Results for orders placed or performed during the hospital encounter of 06/03/25 (from the past 24 hours) Glucose, Nova Meter Status: Abnormal Collection Time: 06/06/25 4:38 PM Result Value Ref Range POC-GLUCOSE 134 (H) 70 - 110 mg/dL Electric [employer] Checker [id number] ECG 12 lead Status: None (In process) Collection Time: 06/06/25 8:45 PM Result Value Ref Range SYSTOLIC BLOOD PRESSURE (MCT) 135 mmHg DIASTOLIC BLOOD PRESSURE (MCT) 62 mmHg VENTRICULAR RATE EKG/MIN 74 BPM ATRIAL RATE (MCT) 61 BPM QRS-INTERVAL (MSEC) 140 ms QT Interval 402 ms QTC Interval 446 ms R AXIS (MCT) 25 degrees T Wave [place] 39 degrees [place] Diagnosis Atrial fibrillation Right bundle branch block Anterior infarct (cited on or before 06-JUN-2025) Abnormal ECG When compared with ECG of 06-JUN-2025 07:24, No significant change was found Glucose, Nova Meter Status: Abnormal Collection Time: 06/07/25 12:06 AM Result Value Ref Range POC-GLUCOSE 160 (H) 70 - 110 mg/dL Electric [employer] Checker [id number] Basic Metabolic Panel Status: Abnormal Collection Time: 06/07/25 4:23 AM Result Value Ref Range Sodium 147 (H) 136 - 145 meq/L Potassium 4.0 3.4 - 5.1 meq/L CO2 32 (H) 22 - 29 meq/L Chloride 103 98 - 112 meq/L Glucose 121 (H) 82 - 115 mg/dL BUN 66.4 (H) 9.8 - 20.1 mg/dL Creatinine 3.64 (H) 0.57 - 1.11 mg/dL BUN/Creatinine 18 8 - 20 Calcium 8.5 8.4 - 10.2 mg/dL Anion Gap 16 (H) 4 - 12 eGFR (mL/min/1.73m2) 12 (L) >=60 mL/min/1.73m2 Osmolality Calc 312.9 mOsm/kg CBC with automated diff Status: Abnormal Collection Time: 06/07/25 4:23 AM Result Value Ref Range WBC 4.4 4.0 - 10.0 K/??L RBC 2.92 (L) 3.93 - 5.22 M/??L Hemoglobin 8.2 (L) 11.2 - 15.7 GM/DL Hematocrit 27.4 (L) 34.1 - 44.9 % MCV 94 79 - 95 fL MCH 28.1 25.6 - 32.2 pg MCHC 29.9 (L) 32.2 - 35.5 GM/DL RDW 17.0 (H) 11.7 - 14.4 % Platelets 61 (L) 140 - 375 K/CU MM MPV 11.3 9.4 - 12.3 fL % Neutros 73 (H) 34 - 71 % % Lymphs 13 (L) 19 - 52 % % Monos 10 5 - 13 % % Eos 2 1 - 6 % % Baso 0 0 - 1 % NRBC Absolute <0.01 0 - 0.012 K/ul # Neutros 3.20 1.56 - 6.13 K/??L # Lymphs 0.59 (L) 1.18 - 3.74 K/??L # Monos 0.43 0.24 - 0.86 K/??L # Eos 0.10 0.04 - 0.36 K/??L # Baso <0.03 0.01 - 0.08 K/ L Immature Granulocytes-Relative 1.40 (H) 0.01 - 0.43 % # IG 0.06 (H) 0.00 - 0.03 K/uL Magnesium Status: Normal Collection Time: 06/07/25 4:23 AM Result Value Ref Range Magnesium 1.7 1.6 - 2.6 mg/dL Glucose, Nova Meter Status: Abnormal Collection Time: 06/07/25 6:21 AM Result Value Ref Range POC-GLUCOSE 119 (H) 70 - 110 mg/dL Electric [employer] Checker [id number] ECG 12 lead Status: None (In process) Collection Time: 06/07/25 7:49 AM Result Value Ref Range SYSTOLIC BLOOD PRESSURE (MCT) 120 mmHg DIASTOLIC BLOOD PRESSURE (MCT) 85 mmHg VENTRICULAR RATE EKG/MIN 69 BPM ATRIAL RATE (MCT) 69 BPM GA Interval 220 ms QRS-INTERVAL (MSEC) 132 ms QT Interval 406 ms QTC Interval 435 ms P [place] 63 degrees R AXIS (MCT) 60 degrees T Wave [place] 82 degrees [place] Diagnosis Sinus rhythm with 1st degree AV block with premature supraventricular complexes Right bundle branch block Anterior infarct (cited on or before 06-JUN-2025) Abnormal ECG When compared with ECG of 06-JUN-2025 20:45, Sinus rhythm has replaced Atrial fibrillation Glucose, Nova Meter Status: Abnormal Collection Time: 06/07/25 11:29 AM Result Value Ref Range POC-GLUCOSE 132 (H) 70 - 110 mg/dL Electric Organ Checker [id number] Radiology: Radiology Results (last 3 days) Procedure Component Value Units Date/Time XR chest AP portable [[id number]] Collected: 06/07/25 0802 Order Status: Completed Updated: 06/07/25804 Narrative: Portable chest HISTORY: Shortness of breath FINDINGS: Comparison date 06/04/2025. An enteric tube has been placed rectum towards the left upper quadrant although tip is not included. There are worsening bibasilar infiltrates. There may be a small right effusion. There are low lung volumes with poor inspiration. Heart size is normal. Impression: Worsening bibasilar lung infiltrates, which may represent atelectasis and/or pneumonia. XR KUB PORTABLE [[id number]] Collected: 06/05/25 1418 Order Status: Completed Updated: 06/05/251710 Narrative: SINGLE VIEW ABDOMEN HISTORY: Feeding tube adjustment. COMPARISON: June 04, 2025. ABDOMEN: Single view of the abdomen demonstrates a nonspecific bowel gas pattern. No abnormal calcifications are identified. There is a feeding tube identified with the tip at the junction of the second and third portion of the duodenum. Impression: Nonspecific bowel gas pattern. Feeding tube tip terminates at the junction of the second and third portion of the duodenum. Images reviewed, interpreted, and dictated by Dr. Lino Main. Transcribed by sEtela Bueno PA-C. CT CHEST WITHOUT IV CONTRAST [[id number]] Collected: 06/05/25 1145 Order Status: Completed Updated: 06/05/251708 Narrative: CT SCAN OF THE CHEST WITHOUT CONTRAST 06/05/2025 10:51 AM HISTORY: Pneumonia, unresolved. PROCEDURE: Axial CT images were obtained from the lung apex to the mid abdomen without IV contrast. Coronal and sagittal reformatted images generated from the axial data set and provided for interpretation. This study was performed with techniques to keep radiation doses as low as reasonably achievable, (ALARA). Individualized dose reduction techniques using automated exposure control or adjustment of mA and/or kV according to the patient size were employed. COMPARISON: None. FINDINGS: CHEST: Lack of IV contrast somewhat limits evaluation of the thoracic viscera. Lungs/Pleura: There is severe emphysema. There is severe bronchial wall thickening in the bilateral mid and lower lung zones. Patchy peribronchial consolidations are consistent with bronchopneumonia. There is superimposed atelectasis. No pneumothorax or pleural effusion. Heart, vessels and mediastinum: The heart is normal in size. No pericardial effusion. There is enlargement of the pulmonary arteries, at to 42 mm. This is consistent with pulmonary arterial hypertension. Coronary artery disease is present. Lymph nodes: No pathologically enlarged thoracic lymph nodes within the limits of a noncontrast-enhanced examination. Chest wall: No acute findings. Bones: No acute fracture. Upper abdomen: Gallbladder is distended with gallstones. There is no evidence of acute cholecystitis. A feeding tube is in place. Impression: Bronchopneumonia with superimposed atelectasis. Images reviewed, interpreted, and dictated by Dr. Lino Main. Transcribed by Estela Bueno PA-C. XR KUB PORTABLE [[id number]] Collected: 06/04/25 1525 Order Status: Completed Updated: 06/04/25 1536 Narrative: KUB 06/04/2025 2:50 PM HISTORY: Feeding tube placement. COMPARISON: None. FINDINGS: A single view of the abdomen was performed. The feeding tube is identified below the diaphragm at the junction of the second and third portions of duodenum. There is a nonspecific, nonobstructive bowel gas pattern. Impression: Corpak feeding tube tip terminates in the second and third portions of duodenum. Images reviewed, interpreted, and dictated by Dr. Matt Lund. Transcribed by Marzena Menendez PA-C. Ultrasound renal limited [[id number]] Collected: 06/04/25 1435 Order Status: Completed Updated: 06/04/25 1447 Narrative: RENAL ULTRASOUND HISTORY: Acute kidney injury. PROCEDURE: Ultrasound images of the kidneys were obtained. FINDINGS: Limited images of the liver parenchyma demonstrate normal echogenicity . There are gallstones within the gallbladder. The right kidney measures 10 cm in length. It is normal echogenicity . There is no hydronephrosis . The left kidney measures 11 cm in length. It is normal echogenicity . There is no hydronephrosis . Impression: Normal renal ultrasound . Images reviewed, interpreted, and dictated by Dr. Marisela Luther. Transcribed by Maryam Duran PA-C. Medications: Scheduled Meds: aztreonam 500 mg intravenous Q12H 500 mg at 06/07/25 0847 budesonide 0.5 mg nebulization 2 times daily 0.5 mg at 06/07/25 0814 doxycycline 100 mg intravenous Q12H IVPB Stopped at 06/07/25 1027 famotidine 20 mg oral Daily 20 mg at 06/07/25 0843 heparin 5,000 Units subcutaneous Q8H 5,000 Units at 06/07/25 0425 insulin regular 0-6 Units subcutaneous Q6H GALA 2 Units at 06/07/25 0025 ipratropium-albuteroL 3 mL nebulization 2 times daily 3 mL at 06/07/25 0814 magnesium 2 g intravenous Once 2 g at 06/07/25 1030 polyethylene glycol 3350 17 g oral Daily 17 g at 06/07/25 0842 Saccharomyces boulardii 250 mg oral BID 250 mg at 06/07/25 0843 sodium polystyrene sulf-sorbtL 60 g oral Once Continuous Infusions: Current Facility-Administered Medications Medication Dose Route Frequency Provider Last Rate Last Admin acetaminophen (TYLENOL) tablet 650 mg 650 mg oral Q6H PRN Sima Mancia MD aztreonam (AZACTAM) 500 mg in sodium chloride 0.9 % (NS) 100 mL IVPB 500 mg intravenous Q12H MD Cherelle 0 mL/hr at 06/07/25 0000 500 mg at 06/07/25 0847 budesonide (PULMICORT) nebulizer suspension 0.5 mg 0.5 mg nebulization 2 times daily Sima Mancia MD 0.5 mg at 06/07/25 0814 dextrose 50% (D50W) injection 25 g 25 g intravenous Q15 Min PRN Sima Mancia MD doxycycline (VIBRAMYCIN) 100 mg in sodium chloride 0.9 % (NS) MADELEINE IVPB 100 mg intravenous Q12H Octavio Odell MD IVPB Stopped at 06/07/25 1027 famotidine (PEPCID) tablet 20 mg 20 mg oral Daily Sima Mancia MD 20 mg at 06/07/25 0843 glucagon injection 1 mg 1 mg intraMUSCULAR Q15 Min PRN Sima Mancia MD glucose chew tab 16 g 16 g oral Q15 Min PRN Sima Mancia MD heparin injection 5,000 Units 5,000 Units subcutaneous Q8H Octavio Odell MD 5,000 Units at 06/07/25 0425 hydrALAZINE (APRESOLINE) injection 10 mg 10 mg intravenous Q6H PRN Sima Mancia MD insulin regular (HUMULIN R,NOVOLIN R) injection 0-6 Units subcutaneous Q6H [facility] FELICITA King-C2 Units at 06/07/25 0025 ipratropium-albuteroL (DUO-NEB) 0.5 mg-3 mg(2.5 mg base)/3 mL nebulizer solution 3 mL 3 mL nebulization 2 times daily Sima Mancia MD 3 mL at 06/07/25 0814 magnesium sulfate IVPB 2 g in sterile water 50 mL (premix) 2 g intravenous Once Emhemvenus Abel MD 25 mL/hr at 06/07/25 1030 2 g at 06/07/25 1030 ondansetron (ZOFRAN) injection 4 mg 4 mg intravenous Q6H PRN Sima Mancia MD polyethylene glycol (GLYCOLAX) packet 17 g 17 g oral Daily PRN Sima Mancia MD polyethylene glycol (GLYCOLAX) packet 17 g 17 g oral Daily Octavio Odell MD 17 g at 06/07/25 0842 Saccharomyces boulardii (FLORASTOR) capsule 250 mg 250 mg oral BID Sima Mancia MD 250 mg at 06/07/25 0843 sennosides-docusate sodium (SENOKOT S) 8.6-50 mg tablet 1 tablet 1 tablet oral BID PRN Sima Mancia MD sodium polystyrene sulf-sorbtL 15-20 gram/60 mL suspension 60 g 60 g oral Once Holger Mishra MD PRN Meds: @[email or web address]@ Medications Discontinued During This Encounter Medication Reason doxycycline (MONODOX) capsule 100 mg cefTRIAXone (ROCEPHIN) 1 g in sodium chloride 0.9 % (NS) 50 mL MADELEINE IVPB piperacillin-tazobactam (ZOSYN) 2.25 g in sodium chloride 0.9 % (NS) MBP 50 mL IVPB sodium chloride 0.9 % infusion guaiFENesin (mucINEX) 12 hr tablet 600 mg sodium bicarbonate 150 mEq in sterile water 1,150 mL infusion aztreonam (AZACTAM) 1 g in sodium chloride 0.9 % (NS) MBP IVPB doxycycline (VIBRAMYCIN) capsule 100 mg sodium bicarbonate 150 mEq in sterile water 1,150 mL infusion insulin lispro (HUMALOG, ADMELOG) injection 0-[address] scan chest Bronchopneumonia with superimposed atelectasis. Assessment and Plan Acute on chronic renal failure stage III with metabolic acidosis and hyperkalemia -Likely prerenal due to volume depletion -Baseline Cr unknown -Creatinine 5.3---> 4.7---> 3.6 -At home is on irbesartan -Urine studies ordered -Renal US noted within normal limit -Sodium bicarbonate drip discontinued -Nephro consulted Hyperkalemia -Due to renal failure -K+ at [facility] 7.2 -->6.1--> 6.0---> 4.6 -Hyperkalemia protocol at [facility] -[facility] ordered -Continue sodium bicarbonate drip -Monitor closely. -Nephrology following -Resolved Acute on Chronic Hypoxic Respiratory Failure due to bronchopneumonia -At baseline on 2L NC, currently on 6 L NC -Imaging at [facility] showed patchy infiltrate R mid to lower lung -CT scan chest consistent with bronchopneumonia -Urine strep and legionella - Neg -Respiratory PCR panel negative -Speech swallow eval -Corpak and start tube feed for now -DuoNebs BID -Has allergy to Ceftriaxone did get on admission and received solumedrol and benadryl, currently onAztreonam and Dox -CT scan chest noted consistent with bronchopneumonia - Repeat chest x-ray noted worsening -Continue broad-spectrum IV antibiotics. -Pulmonary consulted -Discussed with Dr. Abel Acute Metabolic Encephalopathy -Likely due to renal failure -Pt was confused at nursing facility -CT Head showed no acute abnormality -Speech evaluation - Corpak placed -Started on tube feed titrate up as tolerated Dysphagia. Continue tube feed titrate to goal. Speech evaluation Urinary tract infection. Urinalysis noted. Urine culture pending. Continue broad-spectrum IV antibiotics Fall -CT C-Spine showed degenerative changes C3-4, C6-7, central canal narrowing C4- C5, C5-C6 -CT T-Spine showed showed stable moderate compression T12 -PT/OT Lactic Acidosis -Likely multifactorial volume depletion and hypoxia -Lactic acid 2.4 -Monitor Hypomagnesemia -Replace and monitor Anemia -Hgb currently 10 -Will check iron studies -Monitor Thrombocytopenia -Plt 84K -Will check B12 -Monitor HTN -Hold Irbesartan -IV Hydralazine PRN DM 2, Neuropathy -SSI -Have not restarted Lyrica at this time Debility Physical therapy Occupational Therapy consulted DVT: SCD's at this time Diet: Orders Placed This Encounter Procedures NPO diet Code Status: Current Code Status Full Code Discharge Planning: Acute on chronic renal failure with hyperkalemia and metabolic acidosis. Transferred from ICU to telemetry bed today at 06/07/2025. Inpatient rehab facility referral control system manager consult Discharge date unable to determine. Signed: Jb Turner MD 06/07/2025, 12:22 PM * Olivia Casas RD - 06/07/2025 11:43 AM EDT 06/07: RD check on. Pt remains in ICU, on 6L NC. Corpak placed in duodenum and Nepro started. Running @ 40 ml/hr, goal @ 45 ml/hr. Estimated Needs 4884-1269 kcal/day (20-22 kcal/kg) ~85 g protein/day (1.0 g/kg) Nutrition Monitoring and Goals: - Continue advancing Nepro to goal @ 45 ml/hr (1782 kcal, 81 gm pro). FW per MD Goal: meet >80% of et needs - Rec BETTING CLERKS re-eval prior to restarting diet (rec 60g CHO diet with ONS prn) Goal: safe PO - Obtain wt 2x weekly Goal: avoid involuntary significant wt change - Monitor elytes/renal fxn Goal: wnls - Assess for PCM as able Goal: accurate PCM diagnosis Nutrition Risk Level: High Risk Olivia Casas RD * Tamar Ha PTA - 06/07/2025 11:19 AM EDT Images from the original note were not included. Inpatient Physical Therapy Treatment Patient Name: Kirstie Nascimento Date of : 1940 Date of Treatment: 06/07/25 Start Time 1055 Stop Time 1119 Session Duration 24 minutes General Visit Type: Treatment Approved By: Nurse [place] Patient Disposition Upon Entry: Supine in bed, Call Light/Pull Cord in reach, All needs met and within reach, Fall mat placed Patient Verified By: Name and Date of Precautions Weight-Bearing Status: No Restrictions Precautions: Fall risk Isolation Precautions: Standard Lines, tubes, drains, airway: blood pressure cuff, ramirez catheter, nasogastric feeding tube, peripheral IV, pulse oximeter , telemetry, oxymask Subjective Subjective: Patient agreeable to physical therapy treatment. Pain No - Patient not reporting pain at this time Cognition Orientation Level: Oriented to situation, Oriented to person, Disoriented to place, Disoriented to time Objective Vitals Pre-intervention vitals Heart rate: 61 beats per minute Blood pressure: 137/63 mmHg SpO2: 93% O2: 7 (L/min) oxymask Post-intervention vitals Heart rate: 61 beats per minute Blood pressure: 139/65 mmHg SpO2: 94% O2 : 7 (L/min) oxymask Functional Mobility Bed Mobility: Supine to Sit: moderate assistance Sit to Supine: maximal assistance Transfers Unable to assess due to deconditioning, fatigue, weakness, and impaired balance . Gait Unable to assess due to deconditioning, fatigue, weakness, and impaired balance Stair Management Unable to assess due to deconditioning, fatigue, weakness, and impaired balance . Wheelchair Mobility Unable to assess due to deconditioning, fatigue, weakness, and impaired balance . AM-PAC Basic Mobility Inpatient Short Form How much difficulty does the patient currently have: Turning over in bed (including adjusting bedclothes, sheets, and blankets)? (1) Total/Unable (not able to do the activity or can only perform the activity using assistive devices or requires assistance from another person, including supervision or cueing for safety) Sitting down on and standing up from a chair with arms (e.g., wheelchair, bedside commode, etc.)? (1) Total/Unable (not able to do the activity or can only perform the activity using assistive devices or requires assistance from another person, including supervision or cueing for safety) Moving from lying on back to sitting on side of bed? (1) Total/Unable (not able to do the activity or can only perform the activity using assistive devices or requires assistance from another person,including supervision or cueing for safety) How much help from another person does the patient currently need: Moving to and from a bed to a chair (including a wheelchair)? (1) Total/Unable (Total assist/dependent) Need to walk in hospital room? (1) Total/Unable (Total assist/dependent) Climbing 3-5 steps with a railing? (1) Total/Unable (Total assist/dependent) Score Raw score=6 t-Scale score=23.55 Standard error=4.57 CMS 0-100%=100.00% MDC=4.72 A raw score of >= 16 is significantly associated with increased odds of discharge to home in addition to consideration made for the patient's cognition and social determinants of health. Balance Static/dynamic sitting and static/dynamic standing balance grades Balance Grade Sitting Static Fair - patient able to maintain balance with handhold support; may require occasional minimal assistance Sitting Dynamic Fair - patient accepts minimal challenge; able to maintain balance while turning head/trunk Standing Static Unable to assess Standing Dynamic Unable to assess Activity Tolerance Patient limited with activity/intervention due to fatigue, deconditioning, and weakness Treatment Patient sat EOB for ~8 minutes with SBA initially however became min A to correct R lean as she fatigued. Assessment Patient was able to transfer to EOB with assistance for safety. Patient would benefit from continued therapy to increase endurance and decrease safety risk and caregiver burden. Plan Treatment plan: Continue per plan of care. PT Frequency/Duration: 5x/week for 14 days Recommendations Discharge recommendations: Patient would benefit from 1-2 hours of multidisciplinary therapy per day upon discharge from acute care setting to assist with returning to prior level of functioning. DME recommendations: Unable to make recommendations at this time. Goals [id number]: By the target date, patient will perform [id number] with contact guard assistance, utilizing no assistive device, to improve independence with bed mobility. [id number]-[id number]: By the target date, patient will perform sit to stand with contact guard assistance and rolling walker to improve independence with functional mobility. Transfer: By the target date, patient will perform stand-pivot transfer to a bedside commode, recliner chair, or wheelchair with stand by assistance and utilizing rolling walker, demonstrating ability to safely transfer while in hospital setting to improve independence with functional mobility. Gait: Patient will ambulate 100' with minimal assistance and utilizing rolling walker in order to increase independence with ambulation and improve balance with ambulation and decrease risk of falling Target Date: 06/20/2025 Progress towards goals: progressing Education Patient educated on safety, role of physical therapy, and plan of care and following, they were able to verbalize understanding. No further questions or concerns stated. Interdisciplinary Communication Following treatment, therapist communicated with nursing regarding patient's performance during physical therapy session. Patient Disposition Upon Leaving Supine in bed, Call Light/Pull Cord in reach, All needs met and within reach, Fall mat placed If this patient discharges prior to next therapy session, this note serves as the patient's discharge summary. Electronically signed by Tamar Ha PTA - 06/07/25 - 11:31 AM EDT Cosigned by Elpidio Hughes PT at 06/10/2025 8:14 AM EDT Associated attestation - Elpidio Hughes PT - 06/10/2025 7:14 AM CDT I, Elpidio Hughes PT, DPT, reviewed the notes, assessments, and/or procedures performed by Tamar Ha PTA, I concur with their documentation of Kirstie Pope Ulises. Electronically signed by Elpidio Hughes PT, DPT - 06/10/25 - 8:14 AM EST * Bela Abel MD - 06/07/2025 9:05 AM EDT Images from the original note were not included. Pulm/CC Date of consultation: 06/03/2025 Reason for consultation: ICU admission, renal failure Chief complaint: Weakness History of present illness: Patient is an 84-year-old female who presented to an outlying facility from the longterm for altered mental status. Patient has a past medical history including type 2 diabetes mellitus, chronic hypoxemic respiratory failure, chronic kidney disease, BRIDGETTE, hyperlipidemia, depression, GERD. Her mental status has deteriorated over the past couple of days with on and off confusion. Per report she has had multiple ground-level falls without trauma. In the emergency department her blood pressure was 105/44 with a heart rate in the 60s. She does have chronic respiratory failure and typically wears 2 L O2. Her initial laboratory data revealed sodium 140, potassium 7.2, serum CO2 24, serum creatin ine 6.00, glucose 115, WBC 8.5. Patient had a CT scan of the head that revealed no acute abnormalities. CT scan revealed diffuse patchy infiltrate noted throughout the right mid and lower lung. Patient was transferred to [facility] and admitted to the ICU. Pulmonary/critical care consulted for ICU admission. At time of evaluation, patient is awake, answering most questions appropriately. On 2 L O2 with adequate saturation. Hemodynamically stable not requiring vasopressors. No family present at bedside. She denies nausea, vomiting, diarrhea. No chest pain. 06/04 seen examined today, encephalopathic, confused, awake but not oriented, hypoxic 8 L nasal cannula bicarb drip, Azactam/Doxy, chest x-ray right lung infiltrate. Pneumonia panel pending, magnesium replaced, creatinine 5.35, urine output 300 cc. Nephrology following, ultrasound kidney pending 06/05: Seen and examined, awake, follow commands, 5 L nasal cannula, hemodynamically stable, afebrile, Azactam/Doxy. Creatinine trending down 4.7, UOP 1200 cc last 24 hours, 750 cc overnight, nephrology following p.o. diet Discontinue bicarb drip CAT scan of the chest pending 06/06: Seen and examined, remains encephalopathic, but awake follow some commands, alert, not oriented, on nasal cannula 6 L, CAT scan of the chest shows bilateral lower lobe pneumonia patient doxycycline/Azactam, dysphagia: PEG tube feeding, nephrology following. Creatinine 4.16. Patient making urine, urine repeat 2 L, magnesium 1.8. Placement, potassium 4.2. Close monitoring in the ICU 06/07 Patient was seen and evaluated this morning. She is alert and oriented. On 6 L. No issues overnight. Intake to 60, output 1550, -1300. No fever. Sodium up to 147. Free water flushes increased to 30 cc/h. Potassium of 4. Bicarb of 32. Creatinine down to 3.6. Mag 1.7 on replacement. Chest x-ray showing right lung infiltration. On Corpak and tube feeding. PAST MEDICAL HISTORY: Past Medical History: Diagnosis Date Asthma Chronic kidney disease Emphysema lung (HCC) History of degenerative disc disease Hypertension Lumbar radiculopathy PAST SURGICAL HISTORY: Allergies: Allergies Allergen Reactions Azithromycin Ceftriaxone Pollen Extracts SOCIAL HISTORY: Social History Tobacco Use Smoking status: Former Current packs/day: 0.00 Types: Cigarettes Quit date: 2014 Years since quittin.7 Smokeless tobacco: Never Substance Use Topics Alcohol use: Never Drug use: Never FAMILY HISTORY: Family history is unknown by patient. ROS Constitutional: No fever, no weight changes HEENT: No headaches, no vision changes Cardiac: No chest pain, no palpitations, no orthopnea Pulmonary: No SOB, no TOLLIVER, no cough GI: No nausea, no vomiting, no abdominal pain, no melena, no constipation, no diarrhea : No dysuria, no hematuria, no flank pain MSK: No muscle cramping, + muscle weakness Neuro: No paresthesias, no focal deficits Skin: No rashes, no skin lesions Psych: No depression, no anxiety Vital Signs Temp: [97.8 ??F (36.6 ??C)-98.2 ??F (36.8 ??C)] 97.8 ??F (36.6 ??C) Pulse: [57-90] 64 Resp: [10-29] 19 BP: (108-154)/(52-94) 121/60 Current: Temp: 97.8 ??F (36.6 ??C) Pulse: 64 Resp: 19 BP: 121/60 SpO2: 94 % 24 Hour: BP Min: 108/55 Max: 154/63 Temp Min: 97.8 ??F (36.6 ??C) Max: 98.2 ??F (36.8 ??C) Pulse Min: 57 Max: 90 Resp Min: 10 Max: 29 SpO2 Min: 90 % Max: 98 % Intake/Output: I/O last 3 completed shifts: In: 940 [NG/GT:540; IV Piggyback:400] Out: 2049 [Urine:2049] Physical examination: General: Awake and answering questions. Eyes: Pupils equal, round, reactive to light, extraocular movements intact, normal conjunctiva HENT: Normocephalic, atraumatic, Supple, nontender, no carotid bruit Respiratory: Breath sounds equal bilaterally, decreased in the bases, no rhonchi or wheezing Cardiovascular: Normal rhythm, normal rate, currently with controlled rate, S1-S2 Gastrointestinal: Soft, nontender, nondistended, normoactive bowel sounds Integumentary: Warm, intact Genitourinary: Deferred MSK: No deformities, normal range of motion Neurologic: Mostly alert, answers questions appropriately Psychiatric: Cooperative, appropriate mood Vent / O2 Management: LABS Results for orders placed or performed during the hospital encounter of 06/03/25 (from the past 24 hours) Glucose, Nova Meter Status: Abnormal Collection Time: 06/06/25 11:36 AM Result Value Ref Range POC-GLUCOSE 152 (H) 70 - 110 mg/dL Electric Organ Checker [id number] Glucose, Nova Meter Status: Abnormal Collection Time: 06/06/25 4:38 PM Result Value Ref Range POC-GLUCOSE 134 (H) 70 - 110 mg/dL Electric Organ Checker [id number] ECG 12 lead Status: None (In process) Collection Time: 06/06/25 8:45 PM Result Value Ref Range SYSTOLIC BLOOD PRESSURE (MCT) 135 mmHg DIASTOLIC BLOOD PRESSURE (MCT) 62 mmHg VENTRICULAR RATE EKG/MIN 74 BPM ATRIAL RATE (MCT) 61 BPM QRS-INTERVAL (MSEC) 140 ms QT Interval 402 ms QTC Interval 446 ms R AXIS (MCT) 25 degrees T Wave [place] 39 degrees [place] Diagnosis Atrial fibrillation Right bundle branch block Anterior infarct (cited on or before 06-JUN-2025) Abnormal ECG When compared with ECG of 06-JUN-2025 07:24, No significant change was found Glucose, Nova Meter Status: Abnormal Collection Time: 06/07/25 12:06 AM Result Value Ref Range POC-GLUCOSE 160 (H) 70 - 110 mg/dL Electric Organ Checker [id number] Basic Metabolic Panel Status: Abnormal Collection Time: 06/07/25 4:23 AM Result Value Ref Range Sodium 147 (H) 136 - 145 meq/L Potassium 4.0 3.4 - 5.1 meq/L CO2 32 (H) 22 - 29 meq/L Chloride 103 98 - 112 meq/L Glucose 121 (H) 82 - 115 mg/dL BUN 66.4 (H) 9.8 - 20.1 mg/dL Creatinine 3.64 (H) 0.57 - 1.11 mg/dL BUN/Creatinine 18 8 - 20 Calcium 8.5 8.4 - 10.2 mg/dL Anion Gap 16 (H) 4 - 12 eGFR (mL/min/1.73m2) 12 (L) >=60 mL/min/1.73m2 Osmolality Calc 312.9 mOsm/kg CBC with automated diff Status: Abnormal Collection Time: 06/07/25 4:23 AM Result Value Ref Range WBC 4.4 4.0 - 10.0 K/??L RBC 2.92 (L) 3.93 - 5.22 M/??L Hemoglobin 8.2 (L) 11.2 - 15.7 GM/DL Hematocrit 27.4 (L) 34.1 - 44.9 % MCV 94 79 - 95 fL MCH 28.1 25.6 - 32.2 pg MCHC 29.9 (L) 32.2 - 35.5 GM/DL RDW 17.0 (H) 11.7 - 14.4 % Platelets 61 (L) 140 - 375 K/CU MM MPV 11.3 9.4 - 12.3 fL % Neutros 73 (H) 34 - 71 % % Lymphs 13 (L) 19 - 52 % % Monos 10 5 - 13 % % Eos 2 1 - 6 % % Baso 0 0 - 1 % NRBC Absolute <0.01 0 - 0.012 K/ul # Neutros 3.20 1.56 - 6.13 K/??L # Lymphs 0.59 (L) 1.18 - 3.74 K/??L # Monos 0.43 0.24 - 0.86 K/??L # Eos 0.10 0.04 - 0.36 K/??L # Baso <0.03 0.01 - 0.08 K/ L Immature Granulocytes-Relative 1.40 (H) 0.01 - 0.43 % # IG 0.06 (H) 0.00 - 0.03 K/uL Magnesium Status: Normal Collection Time: 06/07/25 4:23 AM Result Value Ref Range Magnesium 1.7 1.6 - 2.6 mg/dL Glucose, Nova Meter Status: Abnormal Collection Time: 06/07/25 6:21 AM Result Value Ref Range POC-GLUCOSE 119 (H) 70 - 110 mg/dL Electric Organ Checker [id number] ECG 12 lead Status: None (In process) Collection Time: 06/07/25 7:49 AM Result Value Ref Range SYSTOLIC BLOOD PRESSURE (MCT) 120 mmHg DIASTOLIC BLOOD PRESSURE (MCT) 85 mmHg VENTRICULAR RATE EKG/MIN 69 BPM ATRIAL RATE (MCT) 69 BPM GA Interval 220 ms QRS-INTERVAL (MSEC) 132 ms QT Interval 406 ms QTC Interval 435 ms P [place] 63 degrees R AXIS (MCT) 60 degrees T Wave [place] 82 degrees [place] Diagnosis Sinus rhythm with 1st degree AV block with premature supraventricular complexes Right bundle branch block Anterior infarct (cited on or before 06-JUN-2025) Abnormal ECG When compared with ECG of 06-JUN-2025 20:45, Sinus rhythm has replaced Atrial fibrillation Radiology Radiology Results (last day) Procedure Component Value Units Date/Time XR chest AP portable [[id number]] Collected: 06/07/25 08 Order Status: Completed Updated: 06/07/25804 Narrative: Portable chest HISTORY: Shortness of breath FINDINGS: Comparison date 06/04/2025. An enteric tube has been placed rectum towards the left upper quadrant although tip is not included. There are worsening bibasilar infiltrates. There may be a small right effusion. There are low lung volumes with poor inspiration. Heart size is normal. Impression: Worsening bibasilar lung infiltrates, which may represent atelectasis and/or pneumonia. Microbiology: Microbiology Results (last 7 days) Procedure Component Value Units Date/Time Respiratory Panel [[id number]] (Normal) Collected: 06/04/25 1323 Order Status: Completed Specimen: Nasopharyngeal Swab Updated: 06/04/25 1527 ADENOVIRUS Not detected CORONAVIRUS 229E Not detected CORONAVIRUS HKU1 Not detected CORONAVIRUS NL63 Not detected CORONAVIRUS OC43 Not detected SARS-COV2/RT-PCR Not Detected HUMAN METAPNEUMOVIRUS Not detected HUMAN RHINOVIRUS/ENTEROVIRUS Not detected INFLUENZA A Not detected INFLUENZA B Not detected PARAINFLUENZA VIRUS 1 Not detected PARAINFLUENZA VIRUS 2 Not detected PARAINFLUENZA VIRUS 3 Not detected PARAINFLUENZA VIRUS 4 Not detected RESPIRATORY SYNCYTIAL VIRUS Not detected BORDETELLA PARAPERTUSSIS Not detected BORDETELLA PERTUSSIS Not detected CHLAMYDIA PNEUMONIAE Not detected MYCOPLASMA PNEUMONIAE Not detected Narrative: Testing was performed with RT-PCR methodology using the [employer] Respiratory Panel 2.1 which has [employer] Jacquie approval for SARS-CoV-2 testing. Negative results do not preclude infection with the SARS-CoV-2 virus and should not be used as the sole basis of patient treatment or public health decisions.Negative results must be considered in the context of an individual's recent exposures, history, and presence of clinical signs/symptoms. Follow-up testing should be performed according to the current CDC recommendations. Other viruses and bacteria not targeted by this PCR panel cannot be excluded; therefore clinical correlation and follow up of serology, culture results, and other molecular studies is required. The results are not intended to be used as the sole means for clinical diagnosis or patient management decisions. This sample was tested at the [facility] using the [employer] Respiratory Panel. It is FDA cleared and has been verified and approved by the [facility] for clinical use on nasopharyngeal swab specimens. The performance of the FilmArray RP has not been established in individuals who received influenza vaccine. Recent administration of a nasal influenza vaccine may cause false positive results for Influenza A and/or Influenza B. MRSA Screen [[id number]] (Normal) Collected: 06/04/25 1323 Order Status: Completed Specimen: Nasal from Nares Updated: 06/04/25 1527 MRSA by PCR [facility] MRSA Not Detected by PCR Pneumonia PCR Panel w/Respiratory Culture [[id number]] Order Status: Sent Specimen: Sputum from Expectorated Narrative: The following orders were created for panel order Pneumonia PCR Panel w/Respiratory Culture. Procedure Abnormality Status --------- ------ Pneumonia PCR Panel[[id number]] Respiratory Culture[[id number]] Please view results for these tests on the individual orders. Pneumonia PCR Panel [[id number]] Order Status: Sent Specimen: Sputum from Expectorated Respiratory Culture [[id number]] Order Status: Sent Specimen: Sputum from Expectorated Strep pneumoniae urine antigen [[id number]] (Normal) Collected: 06/03/25 2350 Order Status: Completed Specimen: Urine, Unspecified Source Updated: 06/04/25 0012 Strep pneumoniae Antigen Presumptive negative for pneumococcal pneumonia - see comment Narrative: A presumptive negative result suggests no current or recent pneumococcal infection. Infection due to S. pneumoniae cannot be ruled out since the antigen present in the specimen may be below the detection limit of the test. Echo 06/04/25 Normal sized left ventricle. Mild left ventricular hypertrophy. Visually estimated ejection fraction 55% +/- 5%. Normal left ventricular systolic function with normal systolic strain pattern. Normal left ventricular diastolic function. Normal right ventricular size and function. No hemodynamically significant valvular heart disease. Impression: Neuro: Acute metabolic/uremic encephalopathy Ground level fall Degenerative cervical spine disease T12 compression fracture Pulmonary Acute/chronic hypoxic respiratory failure 6 L nasal cannula Bilateral lower lobe pneumonia Mild pulmonary vascular congestion CXR Former smoker possible COPD Cardiovascular History of hypertension Echo EF 55%, normal LV function, mild LVH Infectious disease Right lung pneumonia possible CAP Renal: Acute hyperkalemia-resolved Acute metabolic acidosis-resolved Acute kidney injury/CKD Hematology: Chronic anemia Chronic thrombocytopenia Endocrinology Type 2 diabetes mellitus Plan: Neuro: Acute encephalopathy in setting of worsening renal failure, sepsis, pneumonia,. Patient protecting airway on nasal cannula Head CT outside facility: Reported to be negative for acute finding. CT cervical spine degenerative changes with central canal narrowing, moderate compression T12 fracture. Recommend evaluation by neurosurgery. Pulmonary acute on chronic hypoxic respiratory failure nasal cannula 6 L, chest x-ray CAT scan bilateral lower lobe infiltrate community-acquired pneumonia possible aspiration Started on Azactam/doxycycline CAT scan of the chest: Bilateral lower lobe pneumonia 6L nasal cannula, Respiratory viral panel: Negative MRSA screen negative Streptococcus pneumonia antigen negative Pneumonia PCR pending Pulmicort/DuoNebs. Repeated chest x-ray this morning showed right lung infiltration. Azactam/doxycycline recommend 7 days total Cardiovascular: Hemodynamically stable. Underlying heart failure with EF, proBNP/echo normal EF, mild LVH Infectious: CBC no leukocytosis, Pro-Erasmo elevated, chest imaging suggestive of bilateral pneumonia,IV Azactam doxycycline, pneumonia workup so far negative, repeat CAT scan of the chest 6 to 8 weeksfor resolution of the pneumonia, speech evaluation, rule out aspiration Renal: RICHIE/CKD, sodium unremarkable, hyperkalemia treated with hyperkalemia cocktail, magnesium replaced Nephrology consulted, ultrasound kidney normal renal ultrasound Mild metabolic acidosis improving. Discontinued bicarb drip Patient making urine. Continue monitoring creatinine trend electrolyte GI/nutrition: Dysphagia, possible aspiration, speech, Corpak tube feeding LFT unremarkable, bilirubin unremarkable, bowel regimen Hematology: CBC no leukocytosis, H&H stable, thrombocytopenia chronic, mild anemia chronic. Monitor H&H, platelet number Prophylaxis: Subcu heparin/Pepcid CODE STATUS full Prognosis: Guarded/poor Dispo: Okay to transfer patient to floor from ICU standpoint. Continue to titrate her oxygen down. Continue to monitor her kidney function and sodium. Free water flushes increased to 30 cc/h. PT OT evaluation given her history of fall. Neurosurgery evaluation recommended giving her T12 fracture Case discussed during round. I have personally evaluated the patient and performed a [id number] diagnostic evaluation on this patient; I have reviewed history, performed physical examination, reviewed laboratory studies. , andreviewed images independent of radiologist. I have actively directed the medical care, formulated assessemnt and plan of care. Patient requires a high complexity of decision making for assessment. 33 minutes critical care time was spent. Voice management trainee technology ([employer]) is used for dictation of this note and sound-alike words might be erroneously placed despite reviewing the note for accuracy.Errors in dictation may reflect use of voice recognition software and not all errors in management trainee may have been detectedprior to signing * Neena Petersen, OTR/L - 06/06/2025 3:19 PM EDTSummary: OT Evaluation Images from the original note were not included. [facility] Inpatient Occupational Therapy Initial Evaluation Patient Name: Kirstie Nascimento Date of : 1940 Date of Evaluation: 06/06/25 Start Time: 1107 Stop Time: 1120 Session Duration: 13 minutes Total time: 23 minutes spent, including 10 minutes for nursing collaboration, thorough chart and systems review, and clinical reasoning. This patient is a 84 y.o. female admitted on 06/03/2025 with Acute renal failure (ARF) (HCC) [N17.9]. Past Medical History: Diagnosis Date Asthma Chronic kidney disease Emphysema lung (HCC) History of degenerative disc disease Hypertension Lumbar radiculopathy No past surgical history on file. General Visit type: Initial Evaluation Approved by: Nursing Patient disposition upon entry: Patient verified by name, Patient verified by date of , Patient verified by medical record number, Supine in bed, All needs met and within reach, Call light/pull cord in reach Co-treated by: PT Precautions Weight-Bearing Status: No Restrictions Precautions: Fall risk Isolation Precautions: Standard Lines, tubes, drains, airway: ramirez catheter, nasal cannula , pulse oximeter , telemetry Subjective Subjective: Pt agreeable Patient's stated goal: unable to state Pain No-patient has no complaints of pain Cognition Cognition: Arousal/alertness: Lethargic. Patient appears drowsy and may fall asleep if not stimulated. Patient having difficulty with maintaining attention to activity or command. Home Living Lives with: Alone Home Type: SNF/ECF Home Layout: One level Stairs to enter: None Stairs inside home: none Home Equipment: unable to fully assess due to lethargy Functional Mobility PLOF: Patient reports requiring assistance with all mobility prior to onset. Activities of Daily Living PLOF: Patient reports requiring assistance with ADLs prior to onset. Fall History: Yes, nursing reports multiple fall(s) in the last 6 months. The most recent fall was unknown. Objective Vitals Pre-intervention vitals Heart rate: 61 beats per minute Blood pressure: 116/60 mmHg SpO2: 94% O2: 8 (L/min) non-rebreather Range of Motion Assessment Functional with limitations: Patient is able to use bilateral upper extremities for reaching/grasping/holding objects at or below shoulder level, but not above Strength Assessment Poor: Patient with significant upper extremity weakness and is unable to hold any type of resistance at shoulder, elbow, or wrist. Bed Mobility DNT due to weakness and lethargy Transfers DNT due to weakness and lethergy ADLs Feeding:Maximal Assistance Grooming:Maximal Assistance Bathing:Maximal Assistance Upper body dressing:Maximal Assistance Lower body dressing:Maximal Assistance Toileting:Maximal Assistance Outcome Measures [facility] Daily Living Functional Assessment How much help from another person does the patient currently need: Putting on and taking off regular lower body clothing? 2 Bathing, including washing, rinsing, and drying? 2 Toileting, including using toilet, bedpan or urinal? 2 Putting on and taking off regular upper body clothing? 2 Taking care of personal grooming such as brushing teeth? 2 Eating meals? 2 1=Total/Unable (Total assist/Dependent) 2=A lot (Maximal/Moderate assist) 3=A little (Minimal/Contact guard/Supervision/Setup) 4=None (Modified independent/Independent) The patient's AMPAC raw score is 12. The patient currently has 66.57% functional impairment. Clinicians are most likely to recommend inpatient/SNF/ocean transportation intermediary care for patients with scores between 6-17, home health for scores between 18-22, and routine discharge for scores above 22. Balance DNT Activity Tolerance Patient limited with activity/intervention due to fatigue, deconditioning, weakness, cognitive impairment, difficulty following commands, and lethargy Treatment Pt having difficulty staying awake. Pt completed above MMT/ROM testing Assessment Assessment Prior to admission, patient required assistance with ADLs , required assistance with functional mobility. Currently the patient presents with decreased balance , decreased safety awareness , difficulty with ADLs, fall risk, impaired cognition, impaired endurance, impaired functional mobility, impaired strength . These deficits currently impact the patient's ability to perform ADLs and functional mobility, putting them at an increased risk for increased falls, decreased quality of life, further functional decline, further decreased strength. The patient has guarded rehab potential and would benefit from OT services to address the aforementioned functional deficits in order to return to priorlevel of function. The patient's current AMPAC score of 12 would indicate that the patient will likely be appropriate for inpatient rehab/SNF/ ocean transportation intermediary care post hospitalization. Plan Recommendations Discharge recommendations: Patient would benefit from 1-2 hours of multidisciplinary therapy per day upon discharge from acute care setting to assist with returning to prior level of functioning. DME recommendations: Treatment Plan: ADL training, Cognitive training, Energy conservation instruction, Functional mobility/transfer training, Safety training, Strengthening OT Frequency/Duration: 3x/week for 14 days Goals Grooming: grooming, sitting edge of bed with setup Bathing:sponge bath seated with setup. Toileting: toileting with setup. Functional transfers: stand pivot transfer with moderate assistance. Target Date: 06/20/2025 Goals were discussed with patient Education Patient educated on safety and following, they were able to verbalize understanding. Interdisciplinary Communication Following treatment, therapist communicated with nursing regarding patient's performance during therapy session. Patient Disposition Upon Leaving Patient disposition upon leaving: Supine in bed, All needs met and within reach, Call light/pull cord in reach, Nursing aware/notified If this patient discharges prior to next therapy session, this note serves as the patient's discharge summary. Electronically signed by CARLOS Damico/Aditya - 06/06/2025 - 3:19 PM EDT OT Evaluation Completed * Holger Mishra MD - 06/06/2025 2:04 PM EDT Images from the original note were not included. Subjective: Patient was seen and examined with all infection control measures. On supplemental O2. + lethargy. Hospital Course: Kirstie Nascimento is an 84 y.o. female with PMHx of stage III CKD, DM 2, HTN, Asthma, Chronic Respiratory Failure, Arthritis, who was transferred from outside hospital after she presented there from nursing facility due to fal and altered mental status. Initial workup showed RICHIE. CXR showed patchy infiltrate R mid to lower lung. Pt was given hyperkalemia protocol and was transferred to [facility] for renal evaluation. Patient is very poor historian and unable to provide reliable history. Allergies: Azithromycin, Ceftriaxone, and Pollen Extracts Home Medications: Prior to Admission medications Medication Sig Start Date End Date Taking? Authorizing Provider calcium carbonate (OS-ERASMO) 600 mg calcium (1,500 mg) Take 600 mg by mouth daily. Yes Historical Provider, cyanocobalamin 1000 MCG tablet Take 1 tablet (1,000 mcg total) by mouth daily. Yes Historical Provider, dapagliflozin propanediol (Farxiga) 10 mg tablet Take 1 tablet (10 mg total) by mouth daily. Yes Historical Provider, escitalopram (LEXAPRO) 20 MG tablet Take 1 tablet (20 mg total) by mouth daily. Yes Historical Provider, esomeprazole (NexIUM) 40 MG capsule Take 1 capsule (40 mg total) by mouth Daily (0600). Yes Historical Provider, famotidine (PEPCID) 20 MG tablet Take 2 tablets (40 mg total) by mouth once at bedtime. Yes Historical Provider, fluticasone propion-salmeteroL (ADVAIR) 250-50 mcg/dose diskus inhaler Inhale 1 puff by mouth 2 (two) times daily. Yes Historical Provider, furosemide (LASIX) 40 MG tablet Take 1 tablet (40 mg total) by mouth daily. Yes Historical Provider, ipratropium-albuteroL (DUO-NEB) 0.5 mg-3 mg(2.5 mg base)/3 mL nebulizer solution Inhale 3 mLs by nebulization every 6 (six) hours as needed for wheezing. Yes Historical Provider, irbesartan (AVAPRO) 300 MG tablet Take 1 tablet (300 mg total) by mouth nightly. Yes Historical Provider, loperamide (IMODIUM) 2 mg capsule Take 1 capsule (2 mg total) by mouth 4 (four) times daily as needed for diarrhea. Yes Historical Provider, metFORMIN (GLUCOPHAGE) 500 MG tablet Take 1 tablet (500 mg total) by mouth 2 (two) times daily withbreakfast and dinner Look-alike/Sound-alike medication. Yes Historical Provider, metoprolol succinate (TOPROL-XL) 50 MG 24 hr tablet Take 1 tablet (50 mg total) by mouth daily. YesHistorical Provider, montelukast (SINGULAIR) 10 mg tablet Take 1 tablet (10 mg total) by mouth nightly. Yes Historical Provider, multivitamin per tablet Take 1 tablet by mouth daily. Yes Historical Provider, oxybutynin (DITROPAN) 5 MG tablet Take 4 tablets (20 mg total) by mouth daily. Yes Historical Provider, pregabalin (LYRICA) 75 MG capsule Take 1 capsule (75 mg total) by mouth 2 (two) times daily. Max Daily Amount: 150 mg Yes Historical Provider, simvastatin (ZOCOR) 20 MG tablet Take 1 tablet (20 mg total) by mouth nightly. Yes Historical Provider, spironolactone (ALDACTONE) 50 MG tablet Take 1 tablet (50 mg total) by mouth daily. Yes Historical Provider, TiZANidine (ZANAFLEX) 2 MG capsule Take 1 capsule (2 mg total) by mouth once at bedtime. Yes Historical Provider, Current Medications: Current Facility-Administered Medications: acetaminophen (TYLENOL) tablet 650 mg, 650 mg, oral, Q6H PRN, Sima Mancia MD aztreonam (AZACTAM) 500 mg in sodium chloride 0.9 % (NS) 100 mL IVPB, 500 mg, intravenous, Q12H, Jb Turner MD, IVPB Stopped at 06/06/25 1251 budesonide (PULMICORT) nebulizer suspension 0.5 mg, 0.5 mg, nebulization, 2 times daily, Sima Mancia MD, 0.5 mg at 06/06/25 0757 dextrose 50% (D50W) injection 25 g, 25 g, intravenous, Q15 Min PRN, Sima Mancia MD doxycycline (VIBRAMYCIN) 100 mg in sodium chloride 0.9 % (NS) MADELEINE IVPB, 100 mg, intravenous, Q12H, Octavio Odell MD, IVPB Stopped at 06/06/25 0958 famotidine (PEPCID) tablet 20 mg, 20 mg, oral, Daily, Sima Mancia MD, 20 mg at 06/06/25 0855 glucagon injection 1 mg, 1 mg, intraMUSCULAR, Q15 Min PRN, Sima Mancia MD glucose chew tab 16 g, 16 g, oral, Q15 Min PRN, Sima Mancia MD heparin injection 5,000 Units, 5,000 Units, subcutaneous, Q8H, Octavio Odell MD, 5,000 Units at 06/06/25 1401 hydrALAZINE (APRESOLINE) injection 10 mg, 10 mg, intravenous, Q6H PRN, Sima Mancia MD insulin lispro (HUMALOG, ADMELOG) injection 0-6 Units, 0-6 Units, subcutaneous, 4x Daily AC, Sima Mancia MD, 1 Units at 06/04/25 1230 ipratropium-albuteroL (DUO-NEB) 0.5 mg-3 mg(2.5 mg base)/3 mL nebulizer solution 3 mL, 3 mL, nebulization, 2 times daily, Sima Mancia MD, 3 mL at 06/06/25 0757 ondansetron (ZOFRAN) injection 4 mg, 4 mg, intravenous, Q6H PRN, Sima Mancia MD polyethylene glycol (GLYCOLAX) packet 17 g, 17 g, oral, Daily PRN, Sima Mancia MD polyethylene glycol (GLYCOLAX) packet 17 g, 17 g, oral, Daily, Octavio Odell MD, 17 g at 06/06/25 0854 Saccharomyces boulardii (FLORASTOR) capsule 250 mg, 250 mg, oral, BID, Sima Mancia MD, 250 mg at 06/06/25 0855 sennosides-docusate sodium (SENOKOT S) 8.6-50 mg tablet 1 tablet, 1 tablet, oral, BID PRN, Sima Mancia MD sodium polystyrene sulf-sorbtL 15-20 gram/60 mL suspension 60 g, 60 g, oral, Once, Holger Mishra MD Review of Systems Unable to perform ROS: Mental status change Vitals Blood pressure 130/59, pulse 66, temperature 98.2 ??F (36.8 ??C), temperature source Axillary, resp. rate 21, height 1.702 m (5' 7 ), weight 86.7 kg (191 lb 2.2 oz), SpO2 95%. Physical Exam Vitals and nursing note reviewed. Constitutional: Appearance: She is normal weight. She is ill-appearing. HENT: Head: Normocephalic and atraumatic. Nose: Nose normal. Mouth/Throat: Pharynx: Oropharynx is clear. Eyes: Extraocular Movements: Extraocular movements intact. Conjunctiva/sclera: Conjunctivae normal. Pupils: Pupils are equal, round, and reactive to light. Cardiovascular: Rate and Rhythm: Normal rate. Rhythm irregular. Pulses: Normal pulses. Heart sounds: Normal heart sounds. Pulmonary: Effort: Pulmonary effort is normal. Breath sounds: Rhonchi and rales present. Abdominal: General: Abdomen is flat. Bowel sounds are normal. Palpations: Abdomen is soft. Musculoskeletal: General: Normal range of motion. Cervical back: Normal range of motion and neck supple. Right lower leg: Edema present. Left lower leg: Edema present. Skin: General: Skin is warm and dry. Neurological: General: No focal deficit present. Mental Status: She is alert. Mental status is at baseline. She is disoriented. Psychiatric: Behavior: Behavior normal. Labs: Recent Results (from the past 72 hours) CBC with automated diff Collection Time: 06/03/25 11:42 PM Result Value Ref Range WBC 5.4 4.0 - 10.0 K/??L RBC 3.53 (L) 3.93 - 5.22 M/??L Hemoglobin 10.1 (L) 11.2 - 15.7 GM/DL Hematocrit 33.5 (L) 34.1 - 44.9 % MCV 95 79 - 95 fL MCH 28.6 25.6 - 32.2 pg MCHC 30.1 (L) 32.2 - 35.5 GM/DL RDW 17.3 (H) 11.7 - 14.4 % Platelets 84 (L) 140 - 375 K/CU MM MPV 11.4 9.4 - 12.3 fL % Neutros 65 34 - 71 % % Lymphs 16 (L) 19 - 52 % % Monos 11 5 - 13 % % Eos 2 1 - 6 % % Baso 1 0 - 1 % NRBC Absolute <0.01 0 - 0.012 K/ul # Neutros 3.55 1.56 - 6.13 K/??L # Lymphs 0.88 (L) 1.18 - 3.74 K/??L # Monos 0.59 0.24 - 0.86 K/??L # Eos 0.13 0.04 - 0.36 K/??L # Baso 0.03 0.01 - 0.08 K/??L Immature Granulocytes-Relative 4.60 (H) 0.01 - 0.43 % # IG 0.25 (H) 0.00 - 0.03 K/uL Lactic Acid with reflex (SJ) Collection Time: 06/03/25 11:42 PM Result Value Ref Range Lactic Acid Level (mmol/L) 2.4 (HH) 0.5 - 2.2 mmol/L CBC Scan Collection Time: 06/03/25 11:42 PM Result Value Ref Range Platelet Estimate Decreased (A) Adequate RBC Morphology Normal Normal Basic Metabolic Panel Collection Time: 06/03/25 11:43 PM Result Value Ref Range Sodium 141 136 - 145 meq/L Potassium 6.1 (HH) 3.4 - 5.1 meq/L CO2 16 (L) 22 - 29 meq/L Chloride 109 98 - 112 meq/L Glucose 85 82 - 115 mg/dL BUN 82.5 (H) 9.8 - 20.1 mg/dL Creatinine 5.62 (H) 0.57 - 1.11 mg/dL BUN/Creatinine 15 8 - 20 Calcium 8.9 8.4 - 10.2 mg/dL Anion Gap 22 (H) 4 - 12 eGFR (mL/min/1.73m2) 7 (L) >=60 mL/min/1.73m2 Osmolality Calc 305.4 mOsm/kg Magnesium Collection Time: 06/03/25 11:43 PM Result Value Ref Range Magnesium 1.3 (L) 1.6 - 2.6 mg/dL Phosphorus Collection Time: 06/03/25 11:43 PM Result Value Ref Range Phosphorus 4.4 2.5 - 4.5 mg/dL Creatine Kinase (CK) Collection Time: 06/03/25 11:43 PM Result Value Ref Range Total CK 62 29 - 168 U/L Sodium, random urine Collection Time: 06/03/25 11:50 PM Result Value Ref Range Sodium Urine 109 See Comment meq/L Protein, random urine Collection Time: 06/03/25 11:50 PM Result Value Ref Range Protein, Urine 15 (H) 1 - 14 mg/dL Creatinine, random urine Collection Time: 06/03/25 11:50 PM Result Value Ref Range Creatinine, Ur 39.00 (L) 47.00 - 110.00 mg/dL Strep pneumoniae urine antigen Collection Time: 06/03/25 11:50 PM Specimen: Urine, Unspecified Source Result Value Ref Range Strep pneumoniae Antigen Presumptive negative for pneumococcal pneumonia- see comment Presumptive negative for pneumococcal pneumonia - see comment Legionella antigen, urine Collection Time: 06/03/25 11:50 PM Result Value Ref Range Legionella Urine Antigen Presumptive negative for L. pneumophila serogroup 1 antigen in urine- see comment Presumptive negative for L. pneumophila serogroup 1 antigen in urine- see comment Urea Nitrogen, random urine Collection Time: 06/03/25 11:50 PM Result Value Ref Range Urea Nitrogen, Ur 328 mg/dL Chloride, random urine Collection Time: 06/03/25 11:50 PM Result Value Ref Range ChlorideUr 109 See Comment mmol/L CBC with automated diff Collection Time: 06/04/25 4:41 AM Result Value Ref Range WBC 7.8 4.0 - 10.0 K/??L RBC 3.88 (L) 3.93 - 5.22 M/??L Hemoglobin 11.1 (L) 11.2 - 15.7 GM/DL Hematocrit 36.4 34.1 - 44.9 % MCV 94 79 - 95 fL MCH 28.6 25.6 - 32.2 pg MCHC 30.5 (L) 32.2 - 35.5 GM/DL RDW 17.4 (H) 11.7 - 14.4 % Platelets 83 (L) 140 - 375 K/CU MM MPV 11.5 9.4 - 12.3 fL % Neutros 88 (H) 34 - 71 % % Lymphs 5 (L) 19 - 52 % % Monos 4 (L) 5 - 13 % % Eos 0 (L) 1 - 6 % % Baso 1 0 - 1 % NRBC Absolute <0.01 0 - 0.012 K/ul # Neutros 6.81 (H) 1.56 - 6.13 K/??L # Lymphs 0.37 (L) 1.18 - 3.74 K/??L # Monos 0.28 0.24 - 0.86 K/??L # Eos 0.03 (L) 0.04 - 0.36 K/??L # Baso 0.04 0.01 - 0.08 K/??L Immature Granulocytes-Relative 3.10 (H) 0.01 - 0.43 % # IG 0.24 (H) 0.00 - 0.03 K/uL Comprehensive metabolic panel Collection Time: 06/04/25 5:02 AM Result Value Ref Range Sodium 145 136 - 145 meq/L Potassium 6.5 (HH) 3.4 - 5.1 meq/L Chloride 110 98 - 112 meq/L CO2 17 (L) 22 - 29 meq/L Calcium 8.7 8.4 - 10.2 mg/dL Glucose 116 (H) 82 - 115 mg/dL BUN 79.5 (H) 9.8 - 20.1 mg/dL Creatinine 5.35 (H) 0.57 - 1.11 mg/dL BUN/Creatinine 15 8 - 20 eGFR (mL/min/1.73m2) 7 (L) >=60 mL/min/1.73m2 Albumin 2.5 (L) 3.5 - 5.0 g/dL Alkaline Phosphatase 63 40 - 150 U/L ALT 10 <=34 U/L AST 36 (H) 11 - 34 U/L Total Bilirubin 0.5 0.2 - 1.2 mg/dL Protein, Total 6.3 (L) 6.4 - 8.3 g/dL Globulin 3.8 2.5 - 4.1 g/dL Anion Gap 25 (H) 4 - 12 A/G Ratio 0.7 0.7 - 1.9 Osmolality Calc 313.5 mOsm/kg Iron and TIBC Collection Time: 06/04/25 5:02 AM Result Value Ref Range Iron 101 50 - 170 ug/dL TIBC 244 (L) 250 - 435 ug/dL % Saturation 41 % UIBC 143 Ferritin Collection Time: 06/04/25 5:02 AM Result Value Ref Range Ferritin 162.66 4.63 - 204.00 ng/mL Vitamin B12 Collection Time: 06/04/25 5:02 AM Result Value Ref Range Vitamin B12 >2,000 (H) 213 - 816 pg/mL Magnesium Collection Time: 06/04/25 5:02 AM Result Value Ref Range Magnesium 3.2 (H) 1.6 - 2.6 mg/dL Lactate dehydrogenase (LDH) Collection Time: 06/04/25 5:02 AM Result Value Ref Range LDH 431 (H) 125 - 220 U/L Procalcitonin Collection Time: 06/04/25 5:02 AM Result Value Ref Range Procalcitonin 0.23 See Comment ng/mL PROBNP Collection Time: 06/04/25 5:02 AM Result Value Ref Range ProBNP (pg/mL) 5,625 (H) 16 - 956 pg/mL Glucose, Nova Meter Collection Time: 06/04/25 5:56 AM Result Value Ref Range POC-GLUCOSE 133 (H) 70 - 110 mg/dL Electric Organ Checker [id number] ECG 12 lead Collection Time: 06/04/25 7:16 AM Result Value Ref Range SYSTOLIC BLOOD PRESSURE (MCT) 112 mmHg DIASTOLIC BLOOD PRESSURE (MCT) 53 mmHg VENTRICULAR RATE EKG/MIN 65 BPM ATRIAL RATE (MCT) 65 BPM GA Interval 240 ms QRS-INTERVAL (MSEC) 128 ms QT Interval 420 ms QTC Interval 436 ms P [place] 25 degrees R AXIS (MCT) 20 degrees T Wave [place] 49 degrees [place] Diagnosis Sinus rhythm with 1st degree AV block Right bundle branch block No previous ECGs available Confirmed by Brandyn CONDE MATTHEW ([id number]) on 06/04/2025 6:17:17 PM Complement Components 3 and 4(SENDOUT) Collection Time: 06/04/25 10:53 AM Result Value Ref Range Complement Component 3 109 90 - 180 mg/dL Complement Component 4 30 10 - 40 mg/dL Renal Function Panel Collection Time: 06/04/25 10:58 AM Result Value Ref Range Glucose 183 (H) 82 - 115 mg/dL BUN 81.4 (H) 9.8 - 20.1 mg/dL Creatinine 5.35 (H) 0.57 - 1.11 mg/dL BUN/Creatinine 15 8 - 20 eGFR (mL/min/1.73m2) 7 (L) >=60 mL/min/1.73m2 Sodium 142 136 - 145 meq/L Potassium 6.0 (HH) 3.4 - 5.1 meq/L Chloride 103 98 - 112 meq/L CO2 23 22 - 29 meq/L Anion Gap 22 (H) 4 - 12 Calcium 9.5 8.4 - 10.2 mg/dL Albumin 2.6 (L) 3.5 - 5.0 g/dL Phosphorus 5.1 (H) 2.5 - 4.5 mg/dL Osmolality Calc 312.4 mOsm/kg Glucose, Nova Meter Collection Time: 06/04/25 11:37 AM Result Value Ref Range POC-GLUCOSE 158 (H) 70 - 110 mg/dL Electric Organ Checker [id number] MRSA Screen Collection Time: 06/04/25 1:23 PM Specimen: Nares; Nasal Result Value Ref Range MRSA by PCR [facility] MRSA Not Detected by PCR MRSA Not Detected by PCR Respiratory Panel Collection Time: 06/04/25 1:23 PM Specimen: Nasopharyngeal Swab Result Value Ref Range ADENOVIRUS Not detected Not detected CORONAVIRUS 229E Not detected Not detected CORONAVIRUS HKU1 Not detected Not detected CORONAVIRUS NL63 Not detected Not detected CORONAVIRUS OC43 Not detected Not detected SARS-COV2/RT-PCR Not Detected Not Detected HUMAN METAPNEUMOVIRUS Not detected Not detected HUMAN RHINOVIRUS/ENTEROVIRUS Not detected Not detected INFLUENZA A Not detected Not detected INFLUENZA B Not detected Not detected PARAINFLUENZA VIRUS 1 Not detected Not detected PARAINFLUENZA VIRUS 2 Not detected Not detected PARAINFLUENZA VIRUS 3 Not detected Not detected PARAINFLUENZA VIRUS 4 Not detected Not detected RESPIRATORY SYNCYTIAL VIRUS Not detected Not detected BORDETELLA PARAPERTUSSIS Not detected Not detected BORDETELLA PERTUSSIS Not detected Not detected CHLAMYDIA PNEUMONIAE Not detected Not detected MYCOPLASMA PNEUMONIAE Not detected Not detected Glucose, Nova Meter Collection Time: 06/04/25 5:48 PM Result Value Ref Range POC-GLUCOSE 137 (H) 70 - 110 mg/dL Electric Organ Checker [id number] Renal Function Panel Collection Time: 06/04/25 5:59 PM Result Value Ref Range Glucose 143 (H) 82 - 115 mg/dL BUN 77.1 (H) 9.8 - 20.1 mg/dL Creatinine 5.22 (H) 0.57 - 1.11 mg/dL BUN/Creatinine 15 8 - 20 eGFR (mL/min/1.73m2) 8 (L) >=60 mL/min/1.73m2 Sodium 141 136 - 145 meq/L Potassium 5.7 (H) 3.4 - 5.1 meq/L Chloride 101 98 - 112 meq/L CO2 24 22 - 29 meq/L Anion Gap 22 (H) 4 - 12 Calcium 9.1 8.4 - 10.2 mg/dL Albumin 2.5 (L) 3.5 - 5.0 g/dL Phosphorus 5.3 (H) 2.5 - 4.5 mg/dL Osmolality Calc 306.7 mOsm/kg Urinalysis w/Microscopic Collection Time: 06/04/25 6:56 PM Result Value Ref Range Color, UA Light Yellow Clarity, UA Turbid (A) Clear Specific Goff, UA 1.013 1.005 - 1.030 pH, UA 5.5 (L) 6.0 - 8.0 Leukocytes, UA 250 Danielle/uL (A) Negative Nitrite, UA Negative Negative Protein, UA Trace (A) Negative Glucose, UA 2+ (A) Normal Ketones, UA Negative Negative Urobilinogen, UA Normal Normal Bilirubin, UA Negative Negative Blood, UA 3+ (A) Negative RBC, UA 51-100 (A) None Seen /HPF WBC, UA 21-50 (A) None Seen /HPF Bacteria, UA 1+ (A) None Seen, Trace Mucus 1+ (A) None Seen SQUAMOUS EPITHELIAL 0-2 (A) None Seen /HPF RENAL EPITHELIAL 0-2 (A) None Seen /HPF TRANSITIONAL EPITHELIAL CELLS 0-2 (A) None Seen /HPF HYALINE CASTS 3-5 (A) None Seen /LPF Specimen Source Urine, Ramirez ECG 12 lead Collection Time: 06/04/25 7:49 PM Result Value Ref Range VENTRICULAR RATE EKG/MIN 58 BPM ATRIAL RATE (MCT) 58 BPM GA Interval 230 ms QRS-INTERVAL (MSEC) 116 ms QT Interval 402 ms QTC Interval 394 ms P [place] 59 degrees R AXIS (MCT) 35 degrees T Wave [place] 12 degrees [place] Diagnosis Sinus bradycardia with 1st degree AV block with premature supraventricular complexes Right bundle branch block Poor data quality, interpretation may be adversely affected When compared with ECG of 04-JUN-2025 07:16, premature supraventricular complexes are now present Criteria for Septal infarct are no longer present Confirmed by Brandyn LAO STEVE ([id number]) on 06/05/2025 6:51:23 PM Glucose, Nova Meter Collection Time: 06/04/25 8:47 PM Result Value Ref Range POC-GLUCOSE 109 70 - 110 mg/dL Electric Organ Checker [id number] ECG 12 lead Collection Time: 06/05/25 3:09 AM Result Value Ref Range SYSTOLIC BLOOD PRESSURE (MCT) 160 mmHg DIASTOLIC BLOOD PRESSURE (MCT) 66 mmHg VENTRICULAR RATE EKG/MIN 70 BPM ATRIAL RATE (MCT) 67 BPM QRS-INTERVAL (MSEC) 132 ms QT Interval 398 ms QTC Interval 429 ms R AXIS (MCT) 36 degrees T Wave [place] 53 degrees [place] Diagnosis Normal sinus rhythm Right bundle branch block Anterior infarct , age undetermined Abnormal ECG When compared with ECG of 04-JUN-2025 19:49, Atrial fibrillation has replaced Sinus rhythm Anterior infarct is now present Confirmed by Brandyn LAO STEVE ([id number]) on 06/05/2025 6:30:39 PM Basic Metabolic Panel Collection Time: 06/05/25 4:48 AM Result Value Ref Range Sodium 146 (H) 136 - 145 meq/L Potassium 4.6 3.4 - 5.1 meq/L CO2 30 (H) 22 - 29 meq/L Chloride 101 98 - 112 meq/L Glucose 105 82 - 115 mg/dL BUN 72.3 (H) 9.8 - 20.1 mg/dL Creatinine 4.79 (H) 0.57 - 1.11 mg/dL BUN/Creatinine 15 8 - 20 Calcium 8.7 8.4 - 10.2 mg/dL Anion Gap 20 (H) 4 - 12 eGFR (mL/min/1.73m2) 8 (L) >=60 mL/min/1.73m2 Osmolality Calc 312.2 mOsm/kg CBC with automated diff Collection Time: 06/05/25 4:48 AM Result Value Ref Range WBC 5.4 4.0 - 10.0 K/??L RBC 3.43 (L) 3.93 - 5.22 M/??L Hemoglobin 9.6 (L) 11.2 - 15.7 GM/DL Hematocrit 31.0 (L) 34.1 - 44.9 % MCV 90 79 - 95 fL MCH 28.0 25.6 - 32.2 pg MCHC 31.0 (L) 32.2 - 35.5 GM/DL RDW 17.2 (H) 11.7 - 14.4 % Platelets 87 (L) 140 - 375 K/CU MM MPV 11.5 9.4 - 12.3 fL % Neutros 78 (H) 34 - 71 % % Lymphs 10 (L) 19 - 52 % % Monos 10 5 - 13 % % Eos 0 (L) 1 - 6 % % Baso 0 0 - 1 % NRBC Absolute <0.01 0 - 0.012 K/ul # Neutros 4.22 1.56 - 6.13 K/??L # Lymphs 0.51 (L) 1.18 - 3.74 K/??L # Monos 0.51 0.24 - 0.86 K/??L # Eos <0.03 (L) 0.04 - 0.36 K/ L # Baso <0.03 0.01 - 0.08 K/ L Immature Granulocytes-Relative 2.40 (H) 0.01 - 0.43 % # IG 0.13 (H) 0.00 - 0.03 K/uL Glucose, Nova Meter Collection Time: 06/05/25 6:10 AM Result Value Ref Range POC-GLUCOSE 97 70 - 110 mg/dL Electric [employer] Checker [id number] ECG 12 lead Collection Time: 06/05/25 8:06 AM Result Value Ref Range SYSTOLIC BLOOD PRESSURE (MCT) 151 mmHg DIASTOLIC BLOOD PRESSURE (MCT) 92 mmHg VENTRICULAR RATE EKG/MIN 63 BPM ATRIAL RATE (MCT) 88 BPM QRS-INTERVAL (MSEC) 136 ms QT Interval 440 ms QTC Interval 450 ms R AXIS (MCT) 29 degrees T Wave [place] 50 degrees [place] Diagnosis Normal sinus rhythm with premature atrial contractions Right bundle branch block Anterior infarct (cited on or before 05-JUN-2025) Abnormal ECG When compared with ECG of 05-JUN-2025 03:09, No significant change was found Confirmed by Brandyn LAO STEVE ([id number]) on 06/05/2025 6:27:52 PM Glucose, Nova Meter Collection Time: 06/05/25 11:30 AM Result Value Ref Range POC-GLUCOSE 87 70 - 110 mg/dL Electric [employer] Checker [id number] Glucose, Nova Meter Collection Time: 06/05/25 5:29 PM Result Value Ref Range POC-GLUCOSE 110 70 - 110 mg/dL Electric Organ Checker [id number] Glucose, Nova Meter Collection Time: 06/05/25 9:34 PM Result Value Ref Range POC-GLUCOSE 87 70 - 110 mg/dL Electric [employer] Checker [id number] Glucose, Nova Meter Collection Time: 06/06/25 12:16 AM Result Value Ref Range POC-GLUCOSE 112 (H) 70 - 110 mg/dL Electric [employer] Checker [id number] Basic Metabolic Panel Collection Time: 06/06/25 4:24 AM Result Value Ref Range Sodium 145 136 - 145 meq/L Potassium 4.2 3.4 - 5.1 meq/L CO2 31 (H) 22 - 29 meq/L Chloride 100 98 - 112 meq/L Glucose 111 82 - 115 mg/dL BUN 68.2 (H) 9.8 - 20.1 mg/dL Creatinine 4.17 (H) 0.57 - 1.11 mg/dL BUN/Creatinine 16 8 - 20 Calcium 8.3 (L) 8.4 - 10.2 mg/dL Anion Gap 18 (H) 4 - 12 eGFR (mL/min/1.73m2) 10 (L) >=60 mL/min/1.73m2 Osmolality Calc 309.2 mOsm/kg CBC with automated diff Collection Time: 06/06/25 4:24 AM Result Value Ref Range WBC 4.1 4.0 - 10.0 K/??L RBC 3.14 (L) 3.93 - 5.22 M/??L Hemoglobin 8.7 (L) 11.2 - 15.7 GM/DL Hematocrit 29.0 (L) 34.1 - 44.9 % MCV 92 79 - 95 fL MCH 27.7 25.6 - 32.2 pg MCHC 30.0 (L) 32.2 - 35.5 GM/DL RDW 17.4 (H) 11.7 - 14.4 % Platelets 79 (L) 140 - 375 K/CU MM MPV 11.7 9.4 - 12.3 fL % Neutros 70 34 - 71 % % Lymphs 17 (L) 19 - 52 % % Monos 9 5 - 13 % % Eos 2 1 - 6 % % Baso 0 0 - 1 % NRBC Absolute <0.01 0 - 0.012 K/ul # Neutros 2.90 1.56 - 6.13 K/??L # Lymphs 0.69 (L) 1.18 - 3.74 K/??L # Monos 0.39 0.24 - 0.86 K/??L # Eos 0.09 0.04 - 0.36 K/??L # Baso <0.03 0.01 - 0.08 K/ L Immature Granulocytes-Relative 1.40 (H) 0.01 - 0.43 % # IG 0.06 (H) 0.00 - 0.03 K/uL Magnesium Collection Time: 06/06/25 4:24 AM Result Value Ref Range Magnesium 1.8 1.6 - 2.6 mg/dL Glucose, Nova Meter Collection Time: 06/06/25 6:24 AM Result Value Ref Range POC-GLUCOSE 97 70 - 110 mg/dL Electric Organ Checker [id number] ECG 12 lead Collection Time: 06/06/25 7:24 AM Result Value Ref Range SYSTOLIC BLOOD PRESSURE (MCT) 128 mmHg DIASTOLIC BLOOD PRESSURE (MCT) 58 mmHg VENTRICULAR RATE EKG/MIN 68 BPM ATRIAL RATE (MCT) 68 BPM QRS-INTERVAL (MSEC) 128 ms QT Interval 414 ms QTC Interval 440 ms R AXIS (MCT) 37 degrees T Wave [place] 72 degrees [place] Diagnosis Sinus arrhythmia Right bundle branch block Abnormal ECG When compared with ECG of 06-JUN-2025 07:23, Previous ECG has undetermined rhythm, needs review Confirmed by Brandyn LAO, MATT ([id number]) on 06/06/2025 10:14:40 AM Glucose, Nova Meter Collection Time: 06/06/25 11:36 AM Result Value Ref Range POC-GLUCOSE 152 (H) 70 - 110 mg/dL Electric Organ Checker [id number] Imaging: XR KUB PORTABLE Result Date: 06/05/2025 SINGLE VIEW ABDOMEN HISTORY: Feeding tube adjustment. COMPARISON: June 04, 2025. ABDOMEN: Singleview of the abdomen demonstrates a nonspecific bowel gas pattern. No abnormal calcifications are identified. There is a feeding tube identified with the tip at the junction of the second and third portion of the duodenum. Nonspecific bowel gas pattern. Feeding tube tip terminates at the junction of the second and third portion of the duodenum. Images reviewed, interpreted, and dictated by Dr. Lino Main. Transcribed by Estela Bueno PA-C. CT CHEST WITHOUT IV CONTRAST Result Date: 06/05/2025 CT SCAN OF THE CHEST WITHOUT CONTRAST 06/05/2025 10:51 AM HISTORY: Pneumonia, unresolved. PROCEDURE: Axial CT images were obtained from the lung apex to the mid abdomen without IV contrast. Coronal and sagittal reformatted images generated from the axial data set and provided for interpretation. This study was performed with techniques to keep radiation doses as low as reasonably achievable, (ALARA). Individualized dose reduction techniques using automated exposure control or adjustment of mA and/or kV according to the patient size were employed. COMPARISON: None. FINDINGS: CHEST: Lack of IV contrast somewhat limits evaluation of the thoracic viscera. Lungs/Pleura: There is severe emphysema. There is severe bronchial wall thickening in the bilateral mid and lower lung zones. Patchy peribronchial consolidations are consistent with bronchopneumonia. There is superimposed atelectasis. No pneumothorax or pleural effusion. Heart, vessels and mediastinum: The heart is normal in size. No erika cardial effusion. There is enlargement of the pulmonary arteries, at to 42 mm. This is consistent with pulmonary arterial hypertension. Coronary artery disease is present. Lymph nodes: No pathologically enlarged thoracic lymph nodes within the limits of a noncontrast-enhanced examination. Chest wall: No acute findings. Bones: No acute fracture. Upper abdomen: Gallbladder is distended with gallstones. There is no evidence of acute cholecystitis. A feeding tube is in place. Bronchopneumonia with superimposed atelectasis. Images reviewed, interpreted, and dictated by Dr. Lino Main. Transcribed by Estela Bueno PA-C. XR KUB PORTABLE Result Date: 06/04/2025 KUB 06/04/2025 2:50 PM HISTORY: Feeding tube placement. COMPARISON: None. FINDINGS: A single view of the abdomen was performed. The feeding tube is identified below the diaphragm at the junction of the second and third portions of duodenum. There is a nonspecific, nonobstructive bowel gas pattern. Corpak feeding tube tip terminates in the second and third portions of duodenum. Images reviewed, interpreted, and dictated by Dr. Matt Lund. Transcribed by Marzena Menendez PA-C. Ultrasound renal limited Result Date: 06/04/2025 RENAL ULTRASOUND HISTORY: Acute kidney injury. PROCEDURE: Ultrasound images of the kidneys were obtained. FINDINGS: Limited images of the liver parenchyma demonstrate normal echogenicity . There are gallstones within the gallbladder. The right kidney measures 10 cm in length. It is normal echogenicity . There is no hydronephrosis . The left kidney measures 11 cm in length. It is normal echogenicity . There is no hydronephrosis . Normal renal ultrasound . Images reviewed, interpreted, and dictated by Dr. Marisela Luther. Transcribed by Maryam Duran PA-C. 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 HR: 60 bpmPatient Status: Routine IP [facility] History/Tech Notes: Indication: altered mental [id number] Impression: Definity ultrasound enhancing agent administered for endocardial border definition. ######################################## Normal sized left ventricle. Mild left ventricular hypertrophy. Visually estimated ejection fraction 55% +/- 5%. Normal left ventricular systolic function with normal systolic strain pattern. Normal left ventricular diastolic function. Normal right ventricular size and function. No hemodynamically significant valvular heart disease. ######################################## Measurements Summary: LVEDd: 3.77 cm LVESd: 2.47 cm IVSEd: 1.28 cm AO Root:3.08 cm LVPWd: 0.8 cm Contractility Score Normal Left Ventricular contractility was noted. LV regional wall motion: (0-Not visualized 1-Normal 2-Hypokinesis 3-Akinesis 4- Dyskinesis 5-Aneurysm) Left Ventricle Peak E-wave: 0.97 Peak A-wave: 1.16 m/s E/A ratio: 0.83 m/s Volume .89 LV length: 7.95cm CO: 5.84 l/min ml CI: 2.95 l/min*m^2 Volume osptxixs17.77 ml LVOT diameter: 2.11 cm Normal sized left ventricle. Mild left ventricular hypertrophy. Visually estimated ejection fraction 55% +/- 5%.Normal left ventricular systolic function with normal systolic strain pattern. Normal left ventricular diastolic function. No left ventricular masses or thrombi. Right Ventricle Diastolic dimension: 3.39 RV systolic pressure: 24.99 mmHg cm Normal sized right ventricle. Normal TAPSE c/w normal rightventricular function Left Atrium LA dimension: 3.85 cm LA volume:48.99 ml LA/Aorta: 1.25 Normal sized left atrium. Normal left atrial volume index 24.74 ml/m^2. Intact atrial septum. No atrial mass or thrombus. Right Atrium Abnormal right atrial size. Intact atrial septum. No atrial mass or thrombus. Mitral Valve Deceleration time: Mean velocity: 0.8 178.78 msec Area (continuity): m/s 2.95 cm^2 Mean gradient: 2.84 mmHg Peak gradient: 6.38 mmHg Structurally normal mitral valve. Mitral valve annulus calcification. Mild (1+) mitral regurgitation. No mitral stenosis. No masses or vegetations seen. Aortic Valve LVOT VTI: 27.84 cm Mildly thickend free edges of the aortic valve leaflets. Trace aortic valve regurgitation. No aortic stenosis. No masses or vegetations seen. Tricuspid Valve TR velocity: 2.06 m/s TR gradient: 16.13067 mmHg Estimated RAP: 8 mmHg RVSP: 24.99 mmHg Structurally normal tricuspid valve. Trace tricuspid regurgitation. No tricuspid stenosis. No masses or vegetations seen. Pulmonic Valve Acceleration time: 74.22 msec PASP: 24.99 mmHg Structurally normal pulmonic valve. Abnormal pulmonary acceleration time. Trace pulmonic valve regurgitation. No pulmonic stenosis. No masses or vegetations seen. Great Vessels Aorta Aortic Root: 3.08 cm Ascending Aorta: 3.12 cm LVOT Diameter: 2.11 cm Visualized thoracic aorta is normal. Normal aortic root. No evidence of dissection. Dilated IVC with partial inspiratory collapse. Borderline elevated central venous pressure (8-12mmHg). Pericardium / Pleura No pericardial effusion. XR chest AP portable Result Date: 06/04/2025 PORTABLE CHEST 06/04/2025 9:06 AM HISTORY: Acute shortness of breath COMPARISON: 6 hours prior FINDINGS: The heart is mildly enlarged. The mediastinum is unremarkable. Lungs are underinflated with chronic changes throughout both lungs. There is bibasilar atelectasis. There is no pneumothorax. The osseous structures are unremarkable. No acute cardiopulmonary process. Images reviewed, interpreted, and dictated by Dr. Matt Lund. Transcribed by Marzena Menendez PA-C. XR chest AP portable Result Date: 06/04/2025 PORTABLE CHEST 06/04/2025 1:44 AM HISTORY: Acute shortness of breath. COMPARISON: May 18, 2020. FINDINGS: The heart is normal in size . The mediastinum is unremarkable . Lungs are underinflatedwith mild chronic changes in the bases. There is no pneumothorax . No acute cardiopulmonary process . Images reviewed, interpreted, and dictated by Dr. Matt Lund. Transcribed by Pal Cosby PA-C Assessment: Acute kidney injury likely ATN on stage III CKD Hyperkalemia, resolved HAG Metabolic acidosis Uremic and Lactic, resolved Encephalopathy, likely metabolic Thrombocytopenia H/o essential HTN Type II DM Obesity Chronic hypoxemic respiratory failure BRIDGETTE 11. Pneumonia Plan: -Renal function continue to gradually improve. No need for INTEGRITY CONSULTANT at this time. -Hyperkalemia and Metabolic acidosis had resolved -Held home meds Irbesartan, Spironolactone, Metformin, and Farxiga. -Initiated RICHIE work up -Avoidance of nephrotoxins -Renal dosing of meds -Follow renal function, electrolytes, I/O, and acid base status very closely -Further management of other medical problems is per primary team and other specialities Thank you for this interesting consultation. Please do not hesitate to contact me with any questionor concern regarding this patient at [phone]. * Niranjan Escamilla, PT - 06/06/2025 11:20 AM EDT Images from the original note were not included. Inpatient Physical Therapy Initial Evaluation Patient Name: Kirstie Nsacimento Date of : 1940 Date of Evaluation: 06/06/25 In Time 1107 Out Time 1120 Session Duration 13 minutes Time spent for nursing collaboration, chart and systems review, and clinical reasoning. 11 minutes Total Time 24 minutes Pt is a 84 y.o. female admitted on 06/03/2025 with Acute renal failure (ARF) ([facility]) [N17.9]. Past Medical History: Diagnosis Date Asthma Chronic kidney disease Emphysema lung ([facility]) History of degenerative disc disease Hypertension Lumbar radiculopathy No past surgical history on file. General Visit type: Initial Evaluation Approved by: Nurse [place] Patient Disposition Upon Entry: Supine in bed, Call Light/Pull Cord in reach, All needs met and within reach, Nursing aware/notified, HOB >30 degrees, Yellow non-slip socks donned Patient Verified By: Name and Date of Co-treated by: OT Precautions Weight-Bearing Status: No Restrictions Precautions: Fall risk Isolation Precautions: Standard Lines, tubes, drains, airway: ramirez catheter, nasal cannula , pulse oximeter , telemetry Subjective Subjective: Patient agreeable to physical therapy evaluation and treatment. Patient goal: none stated Pain No - Patient not reporting pain at this time Cognition Overall cognitive status: Impaired Orientation Level: Oriented to time, Oriented to situation, Oriented to person, Disoriented to place Following commands: Follows one step commands with increased time Follows one step commands consistently Home Living Lives with: Alone Home Type: SNF/ECF Home Layout: One level Stairs to enter: None Stairs inside home: none Home Equipment: unable to fully assess due to lethargy Functional Mobility PLOF: Patient reports requiring assistance with all mobility prior to onset. Activities of Daily Living PLOF: Patient reports requiring assistance with ADLs prior to onset. Fall History: Yes, nursing reports multiple fall(s) in the last 6 months. The most recent fall was unknown. Objective Vitals Pre-intervention vitals Heart rate: 61 beats per minute Blood pressure: 116/60 mmHg SpO2: 94% O2: 8 (L/min) non-rebreather Basic Strength Assessment Globally 4-/5 in BLE Range of Motion Assessment WFL LLE WFL RLE L ankle medial malleolus increased prominence with swelling, pt reported this has been that way forawhile, limited EV/IV actively and limited DF Sensation nt Coordination nt Functional Mobility Bed Mobility Patient declined to attempt this date. Transfers Patient declined to attempt this date. Gait Patient declined to attempt this date. Stair Management Patient declined to attempt this date. Wheelchair Mobility Patient declined to attempt this date. AM-PAC Basic Mobility Inpatient Short Form How much difficulty does the patient currently have: Turning over in bed (including adjusting bedclothes, sheets, and blankets)? (1) Total/Unable (not able to do the activity or can only perform the activity using assistive devices or requires assistance from another person, including supervision or cueing for safety) Sitting down on and standing up from a chair with arms (e.g., wheelchair, bedside commode, etc.)? (1) Total/Unable (not able to do the activity or can only perform the activity using assistive devices or requires assistance from another person, including supervision or cueing for safety) Moving from lying on back to sitting on side of bed? (1) Total/Unable (not able to do the activity or can only perform the activity using assistive devices or requires assistance from another person,including supervision or cueing for safety) How much help from another person does the patient currently need: Moving to and from a bed to a chair (including a wheelchair)? (1) Total/Unable (Total assist/dependent) Need to walk in hospital room? (1) Total/Unable (Total assist/dependent) Climbing 3-5 steps with a railing? (1) Total/Unable (Total assist/dependent) Score Raw score=6 t-Scale score=23.55 Standard error=4.57 CMS 0-100%=100.00% MDC=4.72 A raw score of >= 16 is significantly associated with increased odds of discharge to home in addition to consideration made for the patient's cognition and social determinants of health. Balance Unable to assess Activity Tolerance Patient tolerated activity/intervention well with no complaints or adverse events. Treatment Pt sleeping and very lethargic on room entry. She was guided through active ROM following commands well. She did not wish to attempt sitting up due to fatigue and she was left supine following this. She was left with all needs met. Assessment At baseline, patient required assistance with ADLs , required assistance with functional mobility. Patient presenting with decreased activity tolerance, generalized weakness with functional activities, impaired sitting balance, shortness of air with physical activity, and fatigue with physical exertion. Because of this, patient would have difficulty with independently performing bathing, dressing, feeding, grooming, toileting, bed mobility, transferring, ambulating on level surfaces, and ambulating household distances. These functional limitations put the patient at an increased risk for lossof independence with functional mobility and activities of daily living, falling, complications dueto immobilization, deconditioning, and decreased quality of life. Patient would benefit from skilled physical therapy services during length of stay for strengthening, balance training to decrease risk of falling, stair training, gait training, transfer training, progression of mobility, assistive d evice training, review of precautions, and further discharge planning. Problems: Decreased functional mobility, Decreased gait tolerance, Decreased strength, Decreased activity tolerance, Impaired standing balance, Impaired dynamic balance, Gait impairment, Restricted ROM Rehab potential: Good for stated goals Plan Treatment Plan: Therapeutic Exercise, Therapeutic Activity, Gait Training, Neuromuscular Re-education, Transfer Training, Balance Training, Stair Training, Strengthening, Patient/Family/Caregiver Education, DME Recommendations PT Frequency/Duration: 5x/week for 14 days Recommendations Discharge recommendations: Patient would benefit from 1-2 hours of multidisciplinary therapy per day upon discharge from acute care setting to assist with returning to prior level of functioning. DME recommendations: Unable to make recommendations at this time. Goals [id number]: By the target date, patient will perform [id number] with contact guard assistance, utilizing no assistive device, to improve independence with bed mobility. [id number]: By the target date, patient will perform sit to stand with contact guard assistance and rolling walker to improve independence with functional mobility. Transfer: By the target date, patient will perform stand-pivot transfer to a bedside commode, recliner chair, or wheelchair with stand by assistance and utilizing rolling walker, demonstrating ability to safely transfer while in hospital setting to improve independence with functional mobility. Gait: Patient will ambulate 100' with minimal assistance and utilizing rolling walker in order to increase independence with ambulation and improve balance with ambulation and decrease risk of falling Target Date: 06/20/2025 Goals were discussed with patient Education Patient educated on safety, use of call button, role of physical therapy, and plan of care and following, they were able to verbalize understanding. No further questions or concerns stated. Interdisciplinary Communication Following treatment, therapist communicated with nursing regarding patient's performance during physical therapy session and regarding patient's level of assistance needed during transfers for nursing mobility. Patient Disposition Upon Leaving Supine in bed, Call Light/Pull Cord in reach, All needs met and within reach, Nursing aware/notified, HOB >30 degrees, Yellow non-slip socks donned If this patient discharges prior to next therapy session, this note serves as the patient's discharge summary. Electronically signed by Niranjan Escamilla PT - 06/06/25 - 1:26 PM EDT PT Evaluation Completed * Jb Turner MD - 06/06/2025 10:54 AM EDT HOSPITALIST PROGRESS NOTE Patient: Kirstie Nascimento Date: 06/06/2025 Subjective Date of Service: 06/06/2025 Patient seen and examined at bedside this AM. In ICU. Lethargic and sleepy this morning. Requiring 6 L nasal cannula. Tube feed at 30 mL/h No family at the bedside Objective Vitals: Temp: [97.6 ??F (36.4 ??C)-98.6 ??F (37 ??C)] 97.6 ??F (36.4 ??C) Pulse: [56-74] 72 Resp: [11-25] 17 BP: (90-163)/(49-108) 133/59 Intake/Output: Intake/Output Summary (Last 24 hours) at 06/06/2025 1054 Last data filed at 06/06/2025 0600 Gross per 24 hour Intake 735 ml Output 1175 ml Net -440 ml Physical exam: General: Drowsy and lethargic, no acute distress Neurologic: no apparent focal deficits Eye: normal conjunctiva HENT: Normocephalic, atraumatic Neck: no JVD Lungs: Poor air entry bilaterally Heart: Normal rate, regular rhythm Abdomen: nondistended Musculoskeletal: Normal range of motion and strength, no tenderness or swelling Skin: Skin is warm, dry, no rashes or lesions Labs: Results for orders placed or performed during the hospital encounter of 06/03/25 (from the past 24 hours) Glucose, Nova Meter Status: None Collection Time: 06/05/25 11:30 AM Result Value Ref Range POC-GLUCOSE 87 70 - 110 mg/dL Electric Organ Checker [id number] Glucose, Nova Meter Status: None Collection Time: 06/05/25 5:29 PM Result Value Ref Range POC-GLUCOSE 110 70 - 110 mg/dL Electric Organ Checker [id number] Glucose, Nova Meter Status: None Collection Time: 06/05/25 9:34 PM Result Value Ref Range POC-GLUCOSE 87 70 - 110 mg/dL Electric Organ Checker [id number] Glucose, Nova Meter Status: Abnormal Collection Time: 06/06/25 12:16 AM Result Value Ref Range POC-GLUCOSE 112 (H) 70 - 110 mg/dL Electric Organ Checker [id number] Basic Metabolic Panel Status: Abnormal Collection Time: 06/06/25 4:24 AM Result Value Ref Range Sodium 145 136 - 145 meq/L Potassium 4.2 3.4 - 5.1 meq/L CO2 31 (H) 22 - 29 meq/L Chloride 100 98 - 112 meq/L Glucose 111 82 - 115 mg/dL BUN 68.2 (H) 9.8 - 20.1 mg/dL Creatinine 4.17 (H) 0.57 - 1.11 mg/dL BUN/Creatinine 16 8 - 20 Calcium 8.3 (L) 8.4 - 10.2 mg/dL Anion Gap 18 (H) 4 - 12 eGFR (mL/min/1.73m2) 10 (L) >=60 mL/min/1.73m2 Osmolality Calc 309.2 mOsm/kg CBC with automated diff Status: Abnormal Collection Time: 06/06/25 4:24 AM Result Value Ref Range WBC 4.1 4.0 - 10.0 K/??L RBC 3.14 (L) 3.93 - 5.22 M/??L Hemoglobin 8.7 (L) 11.2 - 15.7 GM/DL Hematocrit 29.0 (L) 34.1 - 44.9 % MCV 92 79 - 95 fL MCH 27.7 25.6 - 32.2 pg MCHC 30.0 (L) 32.2 - 35.5 GM/DL RDW 17.4 (H) 11.7 - 14.4 % Platelets 79 (L) 140 - 375 K/CU MM MPV 11.7 9.4 - 12.3 fL % Neutros 70 34 - 71 % % Lymphs 17 (L) 19 - 52 % % Monos 9 5 - 13 % % Eos 2 1 - 6 % % Baso 0 0 - 1 % NRBC Absolute <0.01 0 - 0.012 K/ul # Neutros 2.90 1.56 - 6.13 K/??L # Lymphs 0.69 (L) 1.18 - 3.74 K/??L # Monos 0.39 0.24 - 0.86 K/??L # Eos 0.09 0.04 - 0.36 K/??L # Baso <0.03 0.01 - 0.08 K/ L Immature Granulocytes-Relative 1.40 (H) 0.01 - 0.43 % # IG 0.06 (H) 0.00 - 0.03 K/uL Magnesium Status: Normal Collection Time: 06/06/25 4:24 AM Result Value Ref Range Magnesium 1.8 1.6 - 2.6 mg/dL Glucose, Nova Meter Status: None Collection Time: 06/06/25 6:24 AM Result Value Ref Range POC-GLUCOSE 97 70 - 110 mg/dL Electric Organ Checker [id number] ECG 12 lead Status: None Collection Time: 06/06/25 7:24 AM Result Value Ref Range SYSTOLIC BLOOD PRESSURE (MCT) 128 mmHg DIASTOLIC BLOOD PRESSURE (MCT) 58 mmHg VENTRICULAR RATE EKG/MIN 68 BPM ATRIAL RATE (MCT) 68 BPM QRS-INTERVAL (MSEC) 128 ms QT Interval 414 ms QTC Interval 440 ms R AXIS (MCT) 37 degrees T Wave [place] 72 degrees [place] Diagnosis Sinus arrhythmia Right bundle branch block Abnormal ECG When compared with ECG of 06-JUN-2025 07:23, Previous ECG has undetermined rhythm, needs review Confirmed by Brandyn LAO STEVE ([id number]) on 06/06/2025 10:14:40 AM Radiology: Radiology Results (last 3 days) Procedure Component Value Units Date/Time XR KUB PORTABLE [[id number]] Collected: 06/05/25 1418 Order Status: Completed Updated: 06/05/251710 Narrative: SINGLE VIEW ABDOMEN HISTORY: Feeding tube adjustment. COMPARISON: June 04, 2025. ABDOMEN: Single view of the abdomen demonstrates a nonspecific bowel gas pattern. No abnormal calcifications are identified. There is a feeding tube identified with the tip at the junction of the second and third portion of the duodenum. Impression: Nonspecific bowel gas pattern. Feeding tube tip terminates at the junction of the second and third portion of the duodenum. Images reviewed, interpreted, and dictated by Dr. Lino Main. Transcribed by Estela Bueno PA-C. CT CHEST WITHOUT IV CONTRAST [[id number]] Collected: 06/05/251144 Order Status: Completed Updated: 06/05/251708 Narrative: CT SCAN OF THE CHEST WITHOUT CONTRAST 06/05/2025 10:51 AM HISTORY: Pneumonia, unresolved. PROCEDURE: Axial CT images were obtained from the lung apex to the mid abdomen without IV contrast. Coronal and sagittal reformatted images generated from the axial data set and provided for interpretation. This study was performed with techniques to keep radiation doses as low as reasonably achievable, (ALARA). Individualized dose reduction techniques using automated exposure control or adjustment of mA and/or kV according to the patient size were employed. COMPARISON: None. FINDINGS: CHEST: Lack of IV contrast somewhat limits evaluation of the thoracic viscera. Lungs/Pleura: There is severe emphysema. There is severe bronchial wall thickening in the bilateral mid and lower lung zones. Patchy peribronchial consolidations are consistent with bronchopneumonia. There is superimposed atelectasis. No pneumothorax or pleural effusion. Heart, vessels and mediastinum: The heart is normal in size. No pericardial effusion. There is enlargement of the pulmonary arteries, at to 42 mm. This is consistent with pulmonary arterial hypertension. Coronary artery disease is present. Lymph nodes: No pathologically enlarged thoracic lymph nodes within the limits of a noncontrast-enhanced examination. Chest wall: No acute findings. Bones: No acute fracture. Upper abdomen: Gallbladder is distended with gallstones. There is no evidence of acute cholecystitis. A feeding tube is in place. Impression: Bronchopneumonia with superimposed atelectasis. Images reviewed, interpreted, and dictated by Dr. Lino Main. Transcribed by Estela Bueno PA-C. XR KUB PORTABLE [[id number]] Collected: 06/04/25 1525 Order Status: Completed Updated: 06/04/25 1536 Narrative: KUB 06/04/2025 2:50 PM HISTORY: Feeding tube placement. COMPARISON: None. FINDINGS: A single view of the abdomen was performed. The feeding tube is identified below the diaphragm at the junction of the second and third portions of duodenum. There is a nonspecific, nonobstructive bowel gas pattern. Impression: Corpak feeding tube tip terminates in the second and third portions of duodenum. Images reviewed, interpreted, and dictated by Dr. Matt Lund. Transcribed by Marzena Menendez PA-C. Ultrasound renal limited [[id number]] Collected: 06/04/25 1435 Order Status: Completed Updated: 06/04/25 1447 Narrative: RENAL ULTRASOUND HISTORY: Acute kidney injury. PROCEDURE: Ultrasound images of the kidneys were obtained. FINDINGS: Limited images of the liver parenchyma demonstrate normal echogenicity . There are gallstones within the gallbladder. The right kidney measures 10 cm in length. It is normal echogenicity . There is no hydronephrosis . The left kidney measures 11 cm in length. It is normal echogenicity . There is no hydronephrosis . Impression: Normal renal ultrasound . Images reviewed, interpreted, and dictated by Dr. Marisela Luther. Transcribed by Maryam Duran PA-C. XR chest AP portable [[id number]] Collected: 06/04/25 1000 Order Status: Completed Updated: 06/04/25 1004 Narrative: PORTABLE CHEST 06/04/2025 9:06 AM HISTORY: Acute shortness of breath COMPARISON: 6 hours prior FINDINGS: The heart is mildly enlarged. The mediastinum is unremarkable. Lungs are underinflated with chronic changes throughout both lungs. There is bibasilar atelectasis. There is no pneumothorax. The osseous structures are unremarkable. Impression: No acute cardiopulmonary process. Images reviewed, interpreted, and dictated by Dr. Matt Lund. Transcribed by Marzena Menendez PA-C. XR chest AP portable [[id number]] Collected: 06/04/25728 Order Status: Completed Updated: 06/04/25739 Narrative: PORTABLE CHEST 06/04/2025 1:44 AM HISTORY: Acute shortness of breath. COMPARISON: May 18, 2020. FINDINGS: The heart is normal in size . The mediastinum is unremarkable . Lungs are underinflated with mild chronic changes in the bases. There is no pneumothorax . Impression: No acute cardiopulmonary process . Images reviewed, interpreted, and dictated by Dr. Matt Lund. Transcribed by Pal Cosby PA-C Medications: Scheduled Meds: aztreonam 500 mg intravenous Q12H 500 mg at 06/06/25 0854 budesonide 0.5 mg nebulization 2 times daily 0.5 mg at 06/06/25 0757 doxycycline 100 mg intravenous Q12H IVPB Stopped at 06/06/25 0958 famotidine 20 mg oral Daily 20 mg at 06/06/25 0855 heparin 5,000 Units subcutaneous Q8H 5,000 Units at 06/06/25 0551 insulin lispro 0-6 Units subcutaneous 4x Daily AC 1 Units at 06/04/25 1230 ipratropium-albuteroL 3 mL nebulization 2 times daily 3 mL at 06/06/25 0757 polyethylene glycol 3350 17 g oral Daily 17 g at 06/06/25 0854 Saccharomyces boulardii 250 mg oral BID 250 mg at 06/06/25 0855 sodium polystyrene sulf-sorbtL 60 g oral Once Continuous Infusions: Current Facility-Administered Medications Medication Dose Route Frequency Provider Last Rate Last Admin acetaminophen (TYLENOL) tablet 650 mg 650 mg oral Q6H PRN Sima Mancia MD aztreonam (AZACTAM) 500 mg in sodium chloride 0.9 % (NS) 100 mL IVPB 500 mg intravenous Q12H MD Cherelle 0 mL/hr at 06/06/25 0023 500 mg at 06/06/25 0854 budesonide (PULMICORT) nebulizer suspension 0.5 mg 0.5 mg nebulization 2 times daily Sima Mancia MD 0.5 mg at 06/06/25 0757 dextrose 50% (D50W) injection 25 g 25 g intravenous Q15 Min PRN Sima Mancia MD doxycycline (VIBRAMYCIN) 100 mg in sodium chloride 0.9 % (NS) MADELEINE IVPB 100 mg intravenous Q12H Octavio Odell MD IVPB Stopped at 06/06/25 0958 famotidine (PEPCID) tablet 20 mg 20 mg oral Daily Sima Mancia MD 20 mg at 06/06/25 0855 glucagon injection 1 mg 1 mg intraMUSCULAR Q15 Min PRN Sima Mancia MD glucose chew tab 16 g 16 g oral Q15 Min PRN Sima Mancia MD heparin injection 5,000 Units 5,000 Units subcutaneous Q8H Octavio Odell MD 5,000 Units at 06/06/25 0551 hydrALAZINE (APRESOLINE) injection 10 mg 10 mg intravenous Q6H PRN Sima Mancia MD insulin lispro (HUMALOG, ADMELOG) injection 0-6 Units 0-6 Units subcutaneous 4x Daily AC Sima Mancia MD 1 Units at 06/04/25 1230 ipratropium-albuteroL (DUO-NEB) 0.5 mg-3 mg(2.5 mg base)/3 mL nebulizer solution 3 mL 3 mL nebulization 2 times daily Sima Mancia MD 3 mL at 06/06/25 0757 ondansetron (ZOFRAN) injection 4 mg 4 mg intravenous Q6H PRN Sima Macnia MD polyethylene glycol (GLYCOLAX) packet 17 g 17 g oral Daily PRN Sima Mancia MD polyethylene glycol (GLYCOLAX) packet 17 g 17 g oral Daily Octavio Odell MD 17 g at 06/06/25 0854 Saccharomyces boulardii (FLORASTOR) capsule 250 mg 250 mg oral BID Sima Mancia MD 250 mg at 06/06/25 0855 sennosides-docusate sodium (SENOKOT S) 8.6-50 mg tablet 1 tablet 1 tablet oral BID PRN Sima Mancia MD sodium polystyrene sulf-sorbtL 15-20 gram/60 mL suspension 60 g 60 g oral Once Holger Mishra MD PRN Meds: @MEDSPRN@ Medications Discontinued During This Encounter Medication Reason doxycycline (MONODOX) capsule 100 mg cefTRIAXone (ROCEPHIN) 1 g in sodium chloride 0.9 % (NS) 50 mL MADELEINE IVPB piperacillin-tazobactam (ZOSYN) 2.25 g in sodium chloride 0.9 % (NS) MBP 50 mL IVPB sodium chloride 0.9 % infusion guaiFENesin (mucINEX) 12 hr tablet 600 mg sodium bicarbonate 150 mEq in sterile water 1,150 mL infusion aztreonam (AZACTAM) 1 g in sodium chloride 0.9 % (NS) MBP IVPB doxycycline (VIBRAMYCIN) capsule 100 mg sodium bicarbonate 150 mEq in sterile water 1,[address] scan chest Bronchopneumonia with superimposed atelectasis. Assessment and Plan Acute on chronic renal failure stage III with metabolic acidosis and hyperkalemia -Likely prerenal due to volume depletion -Baseline Cr unknown -Creatinine 5.3---> 4.7 -At home is on irbesartan -Urine studies ordered -Renal US noted within normal limit -Sodium bicarbonate drip discontinued -Nephro consulted Hyperkalemia -Due to renal failure -K+ at [facility] 7.2 -->6.1--> 6.0---> 4.6 -Hyperkalemia protocol at [facility] -[facility] ordered -Continue sodium bicarbonate drip -Monitor closely. -Nephrology following -Resolved Acute on Chronic Hypoxic Respiratory Failure due to bronchopneumonia -At baseline on 2L NC, currently on 6 L NC -Imaging at [facility] showed patchy infiltrate R mid to lower lung -CT scan chest consistent with bronchopneumonia -Urine strep and legionella - Neg -Respiratory PCR panel negative -Speech swallow eval -Corpak and start tube feed for now -DuoNebs BID -Has allergy to Ceftriaxone did get on admission and received solumedrol and benadryl, currently onAztreonam and Dox -CT scan chest pending. -Continue broad-spectrum IV antibiotics. -Pulmonary consulted Acute Metabolic Encephalopathy -Likely due to renal failure -Pt was confused at nursing facility -CT Head showed no acute abnormality -Speech evaluation - Corpak placed -Started on tube feed titrate up as tolerated Urinary tract infection. Urinalysis noted. Urine culture pending. Continue broad-spectrum IV antibiotics Fall -CT C-Spine showed degenerative changes C3-4, C6-7, central canal narrowing C4- C5, C5-C6 -CT T-Spine showed showed stable moderate compression T12 -PT/OT Lactic Acidosis -Likely multifactorial volume depletion and hypoxia -Lactic acid 2.4 -Monitor Hypomagnesemia -Replace and monitor Anemia -Hgb currently 10 -Will check iron studies -Monitor Thrombocytopenia -Plt 84K -Will check B12 -Monitor HTN -Hold Irbesartan -IV Hydralazine PRN DM 2, Neuropathy -SSI -Have not restarted Lyrica at this time DVT: SCD's at this time Diet: Orders Placed This Encounter Procedures NPO diet Code Status: Current Code Status Full Code Discharge Planning: Acute on chronic renal failure with hyperkalemia and metabolic acidosis. Continue ICU management. Discharge date unable to determine. Signed: Jb Turner MD 06/06/2025, 12:22 PM * Octavio Odell MD - 06/06/2025 7:50 AM EDT Images from the original note were not included. Pulm/CC Date of consultation: 06/03/2025 Reason for consultation: ICU admission, renal failure Chief complaint: Weakness History of present illness: Patient is an 84-year-old female who presented to an outlying facility from the longterm for altered mental status. Patient has a past medical history including type 2 diabetes mellitus, chronic hypoxemic respiratory failure, chronic kidney disease, [place], hyperlipidemia, depression, GERD. Her mental status has deteriorated over the past couple of days with on and off confusion. Per report she has had multiple ground-level falls without trauma. In the emergency department her blood pressure was 105/44 with a heart rate in the 60s. She does have chronic respiratory failure and typically wears 2 L O2. Her initial laboratory data revealed sodium 140, potassium 7.2, serum CO2 24, serum creatin ine 6.00, glucose 115, WBC 8.5. Patient had a CT scan of the head that revealed no acute abnormalities. CT scan revealed diffuse patchy infiltrate noted throughout the right mid and lower lung. Patient was transferred to [facility] and admitted to the ICU. Pulmonary/critical care consulted for ICU admission. At time of evaluation, patient is awake, answering most questions appropriately. On 2 L O2 with adequate saturation. Hemodynamically stable not requiring vasopressors. No family present at bedside. She denies nausea, vomiting, diarrhea. No chest pain. 06/04 seen examined today, encephalopathic, confused, awake but not oriented, hypoxic 8 L nasal cannula bicarb drip, Azactam/Doxy, chest x-ray right lung infiltrate. Pneumonia panel pending, magnesium replaced, creatinine 5.35, urine output 300 cc. Nephrology following, ultrasound kidney pending 06/05: Seen and examined, awake, follow commands, 5 L nasal cannula, hemodynamically stable, afebrile, Azactam/Doxy. Creatinine trending down 4.7, UOP 1200 cc last 24 hours, 750 cc overnight, nephrology following p.o. diet Discontinue bicarb drip CAT scan of the chest pending 06/06: Seen and examined, remains encephalopathic, but awake follow some commands, alert, not oriented, on nasal cannula 6 L, CAT scan of the chest shows bilateral lower lobe pneumonia patient doxycycline/Azactam, dysphagia: PEG tube feeding, nephrology following. Creatinine 4.16. Patient making urine, urine repeat 2 L, magnesium 1.8. Placement, potassium 4.2. Close monitoring in the ICU PAST MEDICAL HISTORY: Past Medical History: Diagnosis Date Asthma Chronic kidney disease Emphysema lung (HCC) History of degenerative disc disease Hypertension Lumbar radiculopathy PAST SURGICAL HISTORY: Allergies: Allergies Allergen Reactions Azithromycin Ceftriaxone Pollen Extracts SOCIAL HISTORY: Social History Tobacco Use Smoking status: Former Current packs/day: 0.00 Types: Cigarettes Quit date: 2014 Years since quittin. Smokeless tobacco: Never Substance Use Topics Alcohol use: Never Drug use: Never FAMILY HISTORY: Family history is unknown by patient. ROS Constitutional: No fever, no weight changes HEENT: No headaches, no vision changes Cardiac: No chest pain, no palpitations, no orthopnea Pulmonary: No SOB, no TOLLIVER, no cough GI: No nausea, no vomiting, no abdominal pain, no melena, no constipation, no diarrhea : No dysuria, no hematuria, no flank pain MSK: No muscle cramping, + muscle weakness Neuro: No paresthesias, no focal deficits Skin: No rashes, no skin lesions Psych: No depression, no anxiety Vital Signs Temp: [96.2 ??F (35.7 ??C)-98.6 ??F (37 ??C)] 97.6 ??F (36.4 ??C) Pulse: [56-74] 72 Resp: [11-25] 25 BP: (90-171)/(49-108) 133/59 Current: Temp: 97.6 ??F (36.4 ??C) Pulse: 72 Resp: 25 BP: 133/59 SpO2: 96 % 24 Hour: BP Min: 90/53 Max: 171/74 Temp Min: 96.2 ??F (35.7 ??C) Max: 98.6 ??F (37 ??C) Pulse Min: 56 Max: 74 Resp Min: 11 Max: 25 SpO2 Min: 90 % Max: 99 % Intake/Output: I/O last 3 completed shifts: In: 935 [NG/GT:535; IV Piggyback:400] Out: 1924 [Urine:1924] Physical examination: General: Awake but confused Eyes: Pupils equal, round, reactive to light, extraocular movements intact, normal conjunctiva HENT: Normocephalic, atraumatic, Supple, nontender, no carotid bruit Respiratory: Breath sounds equal bilaterally, decreased in the bases, no rhonchi or wheezing Cardiovascular: Normal rhythm, normal rate, currently with controlled rate, S1-S2 Gastrointestinal: Soft, nontender, nondistended, normoactive bowel sounds Integumentary: Warm, intact Genitourinary: Deferred MSK: No deformities, normal range of motion Neurologic: Mostly alert, answers questions appropriately Psychiatric: Cooperative, appropriate mood Vent / O2 Management: LABS Results for orders placed or performed during the hospital encounter of 06/03/25 (from the past 24 hours) ECG 12 lead Status: None Collection Time: 06/05/25 8:06 AM Result Value Ref Range SYSTOLIC BLOOD PRESSURE (MCT) 151 mmHg DIASTOLIC BLOOD PRESSURE (MCT) 92 mmHg VENTRICULAR RATE EKG/MIN 63 BPM ATRIAL RATE (MCT) 88 BPM QRS-INTERVAL (MSEC) 136 ms QT Interval 440 ms QTC Interval 450 ms R AXIS (MCT) 29 degrees T Wave [place] 50 degrees [place] Diagnosis Normal sinus rhythm with premature atrial contractions Right bundle branch block Anterior infarct (cited on or before 05-JUN-2025) Abnormal ECG When compared with ECG of 05-JUN-2025 03:09, No significant change was found Confirmed by Brandyn LAO STEVE ([id number]) on 06/05/2025 6:27:52 PM Glucose, Nova Meter Status: None Collection Time: 06/05/25 11:30 AM Result Value Ref Range POC-GLUCOSE 87 70 - 110 mg/dL Electric Organ Checker [id number] Glucose, Nova Meter Status: None Collection Time: 06/05/25 5:29 PM Result Value Ref Range POC-GLUCOSE 110 70 - 110 mg/dL Electric Organ Checker [id number] Glucose, Nova Meter Status: None Collection Time: 06/05/25 9:34 PM Result Value Ref Range POC-GLUCOSE 87 70 - 110 mg/dL Electric Organ Checker [id number] Glucose, Nova Meter Status: Abnormal Collection Time: 06/06/25 12:16 AM Result Value Ref Range POC-GLUCOSE 112 (H) 70 - 110 mg/dL Electric Organ Checker [id number] Basic Metabolic Panel Status: Abnormal Collection Time: 06/06/25 4:24 AM Result Value Ref Range Sodium 145 136 - 145 meq/L Potassium 4.2 3.4 - 5.1 meq/L CO2 31 (H) 22 - 29 meq/L Chloride 100 98 - 112 meq/L Glucose 111 82 - 115 mg/dL BUN 68.2 (H) 9.8 - 20.1 mg/dL Creatinine 4.17 (H) 0.57 - 1.11 mg/dL BUN/Creatinine 16 8 - 20 Calcium 8.3 (L) 8.4 - 10.2 mg/dL Anion Gap 18 (H) 4 - 12 eGFR (mL/min/1.73m2) 10 (L) >=60 mL/min/1.73m2 Osmolality Calc 309.2 mOsm/kg CBC with automated diff Status: Abnormal Collection Time: 06/06/25 4:24 AM Result Value Ref Range WBC 4.1 4.0 - 10.0 K/??L RBC 3.14 (L) 3.93 - 5.22 M/??L Hemoglobin 8.7 (L) 11.2 - 15.7 GM/DL Hematocrit 29.0 (L) 34.1 - 44.9 % MCV 92 79 - 95 fL MCH 27.7 25.6 - 32.2 pg MCHC 30.0 (L) 32.2 - 35.5 GM/DL RDW 17.4 (H) 11.7 - 14.4 % Platelets 79 (L) 140 - 375 K/CU MM MPV 11.7 9.4 - 12.3 fL % Neutros 70 34 - 71 % % Lymphs 17 (L) 19 - 52 % % Monos 9 5 - 13 % % Eos 2 1 - 6 % % Baso 0 0 - 1 % NRBC Absolute <0.01 0 - 0.012 K/ul # Neutros 2.90 1.56 - 6.13 K/??L # Lymphs 0.69 (L) 1.18 - 3.74 K/??L # Monos 0.39 0.24 - 0.86 K/??L # Eos 0.09 0.04 - 0.36 K/??L # Baso <0.03 0.01 - 0.08 K/ L Immature Granulocytes-Relative 1.40 (H) 0.01 - 0.43 % # IG 0.06 (H) 0.00 - 0.03 K/uL Magnesium Status: Normal Collection Time: 06/06/25 4:24 AM Result Value Ref Range Magnesium 1.8 1.6 - 2.6 mg/dL Glucose, Nova Meter Status: None Collection Time: 06/06/25 6:24 AM Result Value Ref Range POC-GLUCOSE 97 70 - 110 mg/dL Electric Organ Checker [id number] ECG 12 lead Status: None (In process) Collection Time: 06/06/25 7:24 AM Result Value Ref Range SYSTOLIC BLOOD PRESSURE (MCT) 128 mmHg DIASTOLIC BLOOD PRESSURE (MCT) 58 mmHg VENTRICULAR RATE EKG/MIN 68 BPM ATRIAL RATE (MCT) 68 BPM QRS-INTERVAL (MSEC) 128 ms QT Interval 414 ms QTC Interval 440 ms R AXIS (MCT) 37 degrees T Wave [place] 72 degrees [place] Diagnosis Atrial fibrillation Right bundle branch block Anterior infarct (cited on or before 05-JUN-2025) Abnormal ECG When compared with ECG of 06-JUN-2025 07:23, Previous ECG has undetermined rhythm, needs review Radiology Radiology Results (last day) Procedure Component Value Units Date/Time XR KUB PORTABLE [[id number]] Collected: 06/05/25 1418 Order Status: Completed Updated: 06/05/25 7381 Narrative: SINGLE VIEW ABDOMEN HISTORY: Feeding tube adjustment. COMPARISON: June 04, 2025. ABDOMEN: Single view of the abdomen demonstrates a nonspecific bowel gas pattern. No abnormal calcifications are identified. There is a feeding tube identified with the tip at the junction of the second and third portion of the duodenum. Impression: Nonspecific bowel gas pattern. Feeding tube tip terminates at the junction of the second and third portion of the duodenum. Images reviewed, interpreted, and dictated by Dr. Lino Main. Transcribed by Estela Bueno PA-C. CT CHEST WITHOUT IV CONTRAST [[id number]] Collected: 06/05/25 1145 Order Status: Completed Updated: 06/05/25 1709 Narrative: CT SCAN OF THE CHEST WITHOUT CONTRAST 06/05/2025 10:51 AM HISTORY: Pneumonia, unresolved. PROCEDURE: Axial CT images were obtained from the lung apex to the mid abdomen without IV contrast. Coronal and sagittal reformatted images generated from the axial data set and provided for interpretation. This study was performed with techniques to keep radiation doses as low as reasonably achievable, (ALARA). Individualized dose reduction techniques using automated exposure control or adjustment of mA and/or kV according to the patient size were employed. COMPARISON: None. FINDINGS: CHEST: Lack of IV contrast somewhat limits evaluation of the thoracic viscera. Lungs/Pleura: There is severe emphysema. There is severe bronchial wall thickening in the bilateral mid and lower lung zones. Patchy peribronchial consolidations are consistent with bronchopneumonia. There is superimposed atelectasis. No pneumothorax or pleural effusion. Heart, vessels and mediastinum: The heart is normal in size. No pericardial effusion. There is enlargement of the pulmonary arteries, at to 42 mm. This is consistent with pulmonary arterial hypertension. Coronary artery disease is present. Lymph nodes: No pathologically enlarged thoracic lymph nodes within the limits of a noncontrast-enhanced examination. Chest wall: No acute findings. Bones: No acute fracture. Upper abdomen: Gallbladder is distended with gallstones. There is no evidence of acute cholecystitis. A feeding tube is in place. Impression: Bronchopneumonia with superimposed atelectasis. Images reviewed, interpreted, and dictated by Dr. Lino Main. Transcribed by Estela Bueno PA-C. Microbiology: Microbiology Results (last 7 days) Procedure Component Value Units Date/Time Respiratory Panel [[id number]] (Normal) Collected: 06/04/25 1323 Order Status: Completed Specimen: Nasopharyngeal Swab Updated: 06/04/25 1527 ADENOVIRUS Not detected CORONAVIRUS 229E Not detected CORONAVIRUS HKU1 Not detected CORONAVIRUS NL63 Not detected CORONAVIRUS OC43 Not detected SARS-COV2/RT-PCR Not Detected HUMAN METAPNEUMOVIRUS Not detected HUMAN RHINOVIRUS/ENTEROVIRUS Not detected INFLUENZA A Not detected INFLUENZA B Not detected PARAINFLUENZA VIRUS 1 Not detected PARAINFLUENZA VIRUS 2 Not detected PARAINFLUENZA VIRUS 3 Not detected PARAINFLUENZA VIRUS 4 Not detected RESPIRATORY SYNCYTIAL VIRUS Not detected BORDETELLA PARAPERTUSSIS Not detected BORDETELLA PERTUSSIS Not detected CHLAMYDIA PNEUMONIAE Not detected MYCOPLASMA PNEUMONIAE Not detected Narrative: Testing was performed with RT-PCR methodology using the [employer] Respiratory Panel 2.1 which has FD[employer]e Jacquie approval for SARS-CoV-2 testing. Negative results do not preclude infection with the SARS-CoV-2 virus and should not be used as the sole basis of patient treatment or public health decisions.Negative results must be considered in the context of an individual's recent exposures, history, and presence of clinical signs/symptoms. Follow-up testing should be performed according to the current CDC recommendations. Other viruses and bacteria not targeted by this PCR panel cannot be excluded; therefore clinical correlation and follow up of serology, culture results, and other molecular studies is required. The results are not intended to be used as the sole means for clinical diagnosis or patient management decisions. This sample was tested at the [facility] using the [employer] Respiratory Panel. It is FDA cleared and has been verified and approved by the [facility] for clinical use on nasopharyngeal swab specimens. The performance of the FilmArray RP has not been established in individuals who received influenza vaccine. Recent administration of a nasal influenza vaccine may cause false positive results for Influenza A and/or Influenza B. MRSA Screen [[id number]] (Normal) Collected: 06/04/25 1323 Order Status: Completed Specimen: Nasal from Nares Updated: 06/04/25 1527 MRSA by PCR [facility] MRSA Not Detected by PCR Pneumonia PCR Panel w/Respiratory Culture [[id number]] Order Status: Sent Specimen: Sputum from Expectorated Narrative: The following orders were created for panel order Pneumonia PCR Panel w/Respiratory Culture. Procedure Abnormality Status --------- ------ Pneumonia PCR Panel[[id number]] Respiratory Culture[[id number]] Please view results for these tests on the individual orders. Pneumonia PCR Panel [[id number]] Order Status: Sent Specimen: Sputum from Expectorated Respiratory Culture [[id number]] Order Status: Sent Specimen: Sputum from Expectorated Strep pneumoniae urine antigen [[id number]] (Normal) Collected: 06/03/25 2350 Order Status: Completed Specimen: Urine, Unspecified Source Updated: 06/04/25 001 Strep pneumoniae Antigen Presumptive negative for pneumococcal pneumonia - see comment Narrative: A presumptive negative result suggests no current or recent pneumococcal infection. Infection due to S. pneumoniae cannot be ruled out since the antigen present in the specimen may be below the detection limit of the test. Echo 06/04/25 Normal sized left ventricle. Mild left ventricular hypertrophy. Visually estimated ejection fraction 55% +/- 5%. Normal left ventricular systolic function with normal systolic strain pattern. Normal left ventricular diastolic function. Normal right ventricular size and function. No hemodynamically significant valvular heart disease. Impression: Neuro: Acute metabolic/uremic encephalopathy Ground level fall Degenerative cervical spine disease T12 compression fracture Pulmonary Acute/chronic hypoxic respiratory failure 6 L nasal cannula Bilateral lower lobe pneumonia Mild pulmonary vascular congestion CXR Former smoker possible COPD Cardiovascular History of hypertension Echo EF 55%, normal LV function, mild LVH Infectious disease Right lung pneumonia possible CAP Renal: Acute hyperkalemia-resolved Acute metabolic acidosis-resolved Acute kidney injury/CKD Hematology: Chronic anemia Chronic thrombocytopenia Endocrinology Type 2 diabetes mellitus Plan: Neuro: Acute encephalopathy in setting of worsening renal failure, sepsis, pneumonia,. Patient protecting airway on nasal cannula Head CT outside facility: Reported to be negative for acute finding. CT cervical spine degenerative changes with central canal narrowing, moderate compression T12 fracture. Recommend evaluation by neurosurgery. Pulmonary acute on chronic hypoxic respiratory failure nasal cannula 6 L, chest x-ray CAT scan bilateral lower lobe infiltrate community-acquired pneumonia possible aspiration Started on Azactam/doxycycline CAT scan of the chest: Bilateral lower lobe pneumonia 6L nasal cannula, Respiratory viral panel: Negative MRSA screen negative Streptococcus pneumonia antigen negative Pneumonia PCR pending Pulmicort/DuoNebs. Lactam/doxycycline recommend 7 days total Cardiovascular: Hemodynamically stable. Underlying heart failure with EF, proBNP/echo normal EF, mild LVH Infectious: CBC no leukocytosis, Pro-Erasmo elevated, chest imaging suggestive of bilateral pneumonia,IV Azactam doxycycline, pneumonia workup so far negative, repeat CAT scan of the chest 6 to 8 weeksfor resolution of the pneumonia, speech evaluation, rule out aspiration Renal: RICHIE/CKD, sodium unremarkable, hyperkalemia treated with hyperkalemia cocktail, magnesium replaced Nephrology consulted, ultrasound kidney normal renal ultrasound Mild metabolic acidosis improving. Discontinue bicarb drip Patient making urine. Continue monitoring creatinine trend electrolyte GI/nutrition: Dysphagia, possible aspiration, speech, [place]ak tube feeding LFT unremarkable, bilirubin unremarkable, bowel regimen Hematology: CBC no leukocytosis, H&H stable, thrombocytopenia chronic, mild anemia chronic. Monitor H&H, platelet number Prophylaxis: Subcu heparin/Pepcid CODE STATUS full Prognosis: Guarded/poor Dispo: ICU clear oxygenation/mental status improved PT OT evaluation given her history of fall. Neurosurgery evaluation recommended giving her T12 fracture Case discussed during round. I have personally evaluated the patient and performed a [id number] diagnostic evaluation on this patient; I have reviewed history, performed physical examination, reviewed laboratory studies. , andreviewed images independent of radiologist. I have actively directed the medical care, formulated assessemnt and plan of care. Patient requires a high complexity of decision making for assessment. 36minutes critical care time was spent. Voice management trainee technology ([employer]) is used for dictation of this note and sound-alike words might be erroneously placed despite reviewing the note for accuracy.Errors in dictation may reflect use of voice recognition software and not all errors in management trainee may have been detectedprior to signing * Holger Mishra MD - 06/05/2025 1:29 PM EDT Images from the original note were not included. Subjective: Patient was seen and examined with all infection control measures. On supplemental O2. Feeling better today and more alert. Hospital Course: Kirstie Nascimento is an 84 y.o. female with PMHx of stage III CKD, DM 2, HTN, Asthma, Chronic Respiratory Failure, Arthritis, who was transferred from outside hospital after she presented there from nursing facility due to fal and altered mental status. Initial workup showed RICHIE. CXR showed patchy infiltrate R mid to lower lung. Pt was given hyperkalemia protocol and was transferred to [facility] for renal evaluation. Patient is very poor historian and unable to provide reliable history. Allergies: Azithromycin, Ceftriaxone, and Pollen Extracts Home Medications: Prior to Admission medications Medication Sig Start Date End Date Taking? Authorizing Provider calcium carbonate (OS-ERASMO) 600 mg calcium (1,500 mg) Take 600 mg by mouth daily. Yes Historical Provider, cyanocobalamin 1000 MCG tablet Take 1 tablet (1,000 mcg total) by mouth daily. Yes Historical Provider, dapagliflozin propanediol (Farxiga) 10 mg tablet Take 1 tablet (10 mg total) by mouth daily. Yes Historical Provider, escitalopram (LEXAPRO) 20 MG tablet Take 1 tablet (20 mg total) by mouth daily. Yes Historical Provider, esomeprazole (NexIUM) 40 MG capsule Take 1 capsule (40 mg total) by mouth Daily (0600). Yes Historical Provider, famotidine (PEPCID) 20 MG tablet Take 2 tablets (40 mg total) by mouth once at bedtime. Yes Historical Provider, fluticasone propion-salmeteroL (ADVAIR) 250-50 mcg/dose diskus inhaler Inhale 1 puff by mouth 2 (two) times daily. Yes Historical Provider, furosemide (LASIX) 40 MG tablet Take 1 tablet (40 mg total) by mouth daily. Yes Historical Provider, ipratropium-albuteroL (DUO-NEB) 0.5 mg-3 mg(2.5 mg base)/3 mL nebulizer solution Inhale 3 mLs by nebulization every 6 (six) hours as needed for wheezing. Yes Historical Provider, irbesartan (AVAPRO) 300 MG tablet Take 1 tablet (300 mg total) by mouth nightly. Yes Historical Provider, loperamide (IMODIUM) 2 mg capsule Take 1 capsule (2 mg total) by mouth 4 (four) times daily as needed for diarrhea. Yes Historical Provider, metFORMIN (GLUCOPHAGE) 500 MG tablet Take 1 tablet (500 mg total) by mouth 2 (two) times daily withbreakfast and dinner Look-alike/Sound-alike medication. Yes Historical Provider, metoprolol succinate (TOPROL-XL) 50 MG 24 hr tablet Take 1 tablet (50 mg total) by mouth daily. YesHistorical Provider, montelukast (SINGULAIR) 10 mg tablet Take 1 tablet (10 mg total) by mouth nightly. Yes Historical Provider, multivitamin per tablet Take 1 tablet by mouth daily. Yes Historical Provider, oxybutynin (DITROPAN) 5 MG tablet Take 4 tablets (20 mg total) by mouth daily. Yes Historical Provider, pregabalin (LYRICA) 75 MG capsule Take 1 capsule (75 mg total) by mouth 2 (two) times daily. Max Daily Amount: 150 mg Yes Historical Provider, simvastatin (ZOCOR) 20 MG tablet Take 1 tablet (20 mg total) by mouth nightly. Yes Historical Provider, spironolactone (ALDACTONE) 50 MG tablet Take 1 tablet (50 mg total) by mouth daily. Yes Historical Provider, TiZANidine (ZANAFLEX) 2 MG capsule Take 1 capsule (2 mg total) by mouth once at bedtime. Yes Historical Provider, Current Medications: Current Facility-Administered Medications: acetaminophen (TYLENOL) tablet 650 mg, 650 mg, oral, Q6H PRN, Sima Mancia MD aztreonam (AZACTAM) 500 mg in sodium chloride 0.9 % (NS) 100 mL IVPB, 500 mg, intravenous, Q12H, Jb Turner MD, IVPB Stopped at 06/05/25 1207 budesonide (PULMICORT) nebulizer suspension 0.5 mg, 0.5 mg, nebulization, 2 times daily, Sima Mancia MD, 0.5 mg at 06/05/25 0819 dextrose 50% (D50W) injection 25 g, 25 g, intravenous, Q15 Min PRN, Sima Mancia MD doxycycline (VIBRAMYCIN) 100 mg in sodium chloride 0.9 % (NS) MADELEINE IVPB, 100 mg, intravenous, Q12H, Octavio Odell MD, IVPB Stopped at 06/05/25 1011 famotidine (PEPCID) tablet 20 mg, 20 mg, oral, Daily, Sima Mancia MD, 20 mg at 06/04/25 1538 glucagon injection 1 mg, 1 mg, intraMUSCULAR, Q15 Min PRN, Sima Mancia MD glucose chew tab 16 g, 16 g, oral, Q15 Min PRN, Sima Mancia MD heparin injection 5,000 Units, 5,000 Units, subcutaneous, Q8H, Octavio Odell MD, 5,000 Units at 06/05/25 0452 hydrALAZINE (APRESOLINE) injection 10 mg, 10 mg, intravenous, Q6H PRN, Sima Mancia MD insulin lispro (HUMALOG, ADMELOG) injection 0-6 Units, 0-6 Units, subcutaneous, 4x Daily AC, Sima Mancia MD, 1 Units at 06/04/25 1230 ipratropium-albuteroL (DUO-NEB) 0.5 mg-3 mg(2.5 mg base)/3 mL nebulizer solution 3 mL, 3 mL, nebulization, 2 times daily, Sima Mancia MD, 3 mL at 06/05/25 0818 ondansetron (ZOFRAN) injection 4 mg, 4 mg, intravenous, Q6H PRN, Sima Mancia MD polyethylene glycol (GLYCOLAX) packet 17 g, 17 g, oral, Daily PRN, Sima Mancia MD polyethylene glycol (GLYCOLAX) packet 17 g, 17 g, oral, Daily, Octavio Odell MD Saccharomyces boulardii (FLORASTOR) capsule 250 mg, 250 mg, oral, BID, Sima Mancia MD, 250 mg at 06/04/25 2040 sennosides-docusate sodium (SENOKOT S) 8.6-50 mg tablet 1 tablet, 1 tablet, oral, BID PRN, Sima Mancia MD sodium polystyrene sulf-sorbtL 15-20 gram/60 mL suspension 60 g, 60 g, oral, Once, Holger Mishra MD Review of Systems Unable to perform ROS: Mental status change Vitals Blood pressure (!) 151/66, pulse 61, temperature 96.2 ??F (35.7 ??C), temperature source Oral, resp. rate 12, height 1.702 m (5' 7 ), weight 86.7 kg (191 lb 2.2 oz), SpO2 97%. Physical Exam Vitals and nursing note reviewed. Constitutional: Appearance: She is normal weight. She is ill-appearing. HENT: Head: Normocephalic and atraumatic. Nose: Nose normal. Mouth/Throat: Pharynx: Oropharynx is clear. Eyes: Extraocular Movements: Extraocular movements intact. Conjunctiva/sclera: Conjunctivae normal. Pupils: Pupils are equal, round, and reactive to light. Cardiovascular: Rate and Rhythm: Normal rate. Rhythm irregular. Pulses: Normal pulses. Heart sounds: Normal heart sounds. Pulmonary: Effort: Pulmonary effort is normal. Breath sounds: Rhonchi and rales present. Abdominal: General: Abdomen is flat. Bowel sounds are normal. Palpations: Abdomen is soft. Musculoskeletal: General: Normal range of motion. Cervical back: Normal range of motion and neck supple. Right lower leg: Edema present. Left lower leg: Edema present. Skin: General: Skin is warm and dry. Neurological: General: No focal deficit present. Mental Status: She is alert. Mental status is at baseline. She is disoriented. Psychiatric: Behavior: Behavior normal. Labs: Recent Results (from the past 72 hours) CBC with automated diff Collection Time: 06/03/25 11:42 PM Result Value Ref Range WBC 5.4 4.0 - 10.0 K/??L RBC 3.53 (L) 3.93 - 5.22 M/??L Hemoglobin 10.1 (L) 11.2 - 15.7 GM/DL Hematocrit 33.5 (L) 34.1 - 44.9 % MCV 95 79 - 95 fL MCH 28.6 25.6 - 32.2 pg MCHC 30.1 (L) 32.2 - 35.5 GM/DL RDW 17.3 (H) 11.7 - 14.4 % Platelets 84 (L) 140 - 375 K/CU MM MPV 11.4 9.4 - 12.3 fL % Neutros 65 34 - 71 % % Lymphs 16 (L) 19 - 52 % % Monos 11 5 - 13 % % Eos 2 1 - 6 % % Baso 1 0 - 1 % NRBC Absolute <0.01 0 - 0.012 K/ul # Neutros 3.55 1.56 - 6.13 K/??L # Lymphs 0.88 (L) 1.18 - 3.74 K/??L # Monos 0.59 0.24 - 0.86 K/??L # Eos 0.13 0.04 - 0.36 K/??L # Baso 0.03 0.01 - 0.08 K/??L Immature Granulocytes-Relative 4.60 (H) 0.01 - 0.43 % # IG 0.25 (H) 0.00 - 0.03 K/uL Lactic Acid with reflex (SJ) Collection Time: 06/03/25 11:42 PM Result Value Ref Range Lactic Acid Level (mmol/L) 2.4 (HH) 0.5 - 2.2 mmol/L CBC Scan Collection Time: 06/03/25 11:42 PM Result Value Ref Range Platelet Estimate Decreased (A) Adequate RBC Morphology Normal Normal Basic Metabolic Panel Collection Time: 06/03/25 11:43 PM Result Value Ref Range Sodium 141 136 - 145 meq/L Potassium 6.1 (HH) 3.4 - 5.1 meq/L CO2 16 (L) 22 - 29 meq/L Chloride 109 98 - 112 meq/L Glucose 85 82 - 115 mg/dL BUN 82.5 (H) 9.8 - 20.1 mg/dL Creatinine 5.62 (H) 0.57 - 1.11 mg/dL BUN/Creatinine 15 8 - 20 Calcium 8.9 8.4 - 10.2 mg/dL Anion Gap 22 (H) 4 - 12 eGFR (mL/min/1.73m2) 7 (L) >=60 mL/min/1.73m2 Osmolality Calc 305.4 mOsm/kg Magnesium Collection Time: 06/03/25 11:43 PM Result Value Ref Range Magnesium 1.3 (L) 1.6 - 2.6 mg/dL Phosphorus Collection Time: 06/03/25 11:43 PM Result Value Ref Range Phosphorus 4.4 2.5 - 4.5 mg/dL Creatine Kinase (CK) Collection Time: 06/03/25 11:43 PM Result Value Ref Range Total CK 62 29 - 168 U/L Sodium, random urine Collection Time: 06/03/25 11:50 PM Result Value Ref Range Sodium Urine 109 See Comment meq/L Protein, random urine Collection Time: 06/03/25 11:50 PM Result Value Ref Range Protein, Urine 15 (H) 1 - 14 mg/dL Creatinine, random urine Collection Time: 06/03/25 11:50 PM Result Value Ref Range Creatinine, Ur 39.00 (L) 47.00 - 110.00 mg/dL Strep pneumoniae urine antigen Collection Time: 06/03/25 11:50 PM Specimen: Urine, Unspecified Source Result Value Ref Range Strep pneumoniae Antigen Presumptive negative for pneumococcal pneumonia- see comment Presumptive negative for pneumococcal pneumonia - see comment Legionella antigen, urine Collection Time: 06/03/25 11:50 PM Result Value Ref Range Legionella Urine Antigen Presumptive negative for L. pneumophila serogroup 1 antigen in urine- see comment Presumptive negative for L. pneumophila serogroup 1 antigen in urine- see comment Urea Nitrogen, random urine Collection Time: 06/03/25 11:50 PM Result Value Ref Range Urea Nitrogen, Ur 328 mg/dL Chloride, random urine Collection Time: 06/03/25 11:50 PM Result Value Ref Range ChlorideUr 109 See Comment mmol/L CBC with automated diff Collection Time: 06/04/25 4:41 AM Result Value Ref Range WBC 7.8 4.0 - 10.0 K/??L RBC 3.88 (L) 3.93 - 5.22 M/??L Hemoglobin 11.1 (L) 11.2 - 15.7 GM/DL Hematocrit 36.4 34.1 - 44.9 % MCV 94 79 - 95 fL MCH 28.6 25.6 - 32.2 pg MCHC 30.5 (L) 32.2 - 35.5 GM/DL RDW 17.4 (H) 11.7 - 14.4 % Platelets 83 (L) 140 - 375 K/CU MM MPV 11.5 9.4 - 12.3 fL % Neutros 88 (H) 34 - 71 % % Lymphs 5 (L) 19 - 52 % % Monos 4 (L) 5 - 13 % % Eos 0 (L) 1 - 6 % % Baso 1 0 - 1 % NRBC Absolute <0.01 0 - 0.012 K/ul # Neutros 6.81 (H) 1.56 - 6.13 K/??L # Lymphs 0.37 (L) 1.18 - 3.74 K/??L # Monos 0.28 0.24 - 0.86 K/??L # Eos 0.03 (L) 0.04 - 0.36 K/??L # Baso 0.04 0.01 - 0.08 K/??L Immature Granulocytes-Relative 3.10 (H) 0.01 - 0.43 % # IG 0.24 (H) 0.00 - 0.03 K/uL Comprehensive metabolic panel Collection Time: 06/04/25 5:02 AM Result Value Ref Range Sodium 145 136 - 145 meq/L Potassium 6.5 (HH) 3.4 - 5.1 meq/L Chloride 110 98 - 112 meq/L CO2 17 (L) 22 - 29 meq/L Calcium 8.7 8.4 - 10.2 mg/dL Glucose 116 (H) 82 - 115 mg/dL BUN 79.5 (H) 9.8 - 20.1 mg/dL Creatinine 5.35 (H) 0.57 - 1.11 mg/dL BUN/Creatinine 15 8 - 20 eGFR (mL/min/1.73m2) 7 (L) >=60 mL/min/1.73m2 Albumin 2.5 (L) 3.5 - 5.0 g/dL Alkaline Phosphatase 63 40 - 150 U/L ALT 10 <=34 U/L AST 36 (H) 11 - 34 U/L Total Bilirubin 0.5 0.2 - 1.2 mg/dL Protein, Total 6.3 (L) 6.4 - 8.3 g/dL Globulin 3.8 2.5 - 4.1 g/dL Anion Gap 25 (H) 4 - 12 A/G Ratio 0.7 0.7 - 1.9 Osmolality Calc 313.5 mOsm/kg Iron and TIBC Collection Time: 06/04/25 5:02 AM Result Value Ref Range Iron 101 50 - 170 ug/dL TIBC 244 (L) 250 - 435 ug/dL % Saturation 41 % UIBC 143 Ferritin Collection Time: 06/04/25 5:02 AM Result Value Ref Range Ferritin 162.66 4.63 - 204.00 ng/mL Vitamin B12 Collection Time: 06/04/25 5:02 AM Result Value Ref Range Vitamin B12 >2,000 (H) 213 - 816 pg/mL Magnesium Collection Time: 06/04/25 5:02 AM Result Value Ref Range Magnesium 3.2 (H) 1.6 - 2.6 mg/dL Lactate dehydrogenase (LDH) Collection Time: 06/04/25 5:02 AM Result Value Ref Range LDH 431 (H) 125 - 220 U/L Procalcitonin Collection Time: 06/04/25 5:02 AM Result Value Ref Range Procalcitonin 0.23 See Comment ng/mL PROBNP Collection Time: 06/04/25 5:02 AM Result Value Ref Range ProBNP (pg/mL) 5,625 (H) 16 - 956 pg/mL Glucose, Nova Meter Collection Time: 06/04/25 5:56 AM Result Value Ref Range POC-GLUCOSE 133 (H) 70 - 110 mg/dL [employer]er [id number] ECG 12 lead Collection Time: 06/04/25 7:16 AM Result Value Ref Range SYSTOLIC BLOOD PRESSURE (MCT) 112 mmHg DIASTOLIC BLOOD PRESSURE (MCT) 53 mmHg VENTRICULAR RATE EKG/MIN 65 BPM ATRIAL RATE (MCT) 65 BPM GA Interval 240 ms QRS-INTERVAL (MSEC) 128 ms QT Interval 420 ms QTC Interval 436 ms P [place] 25 degrees R AXIS (MCT) 20 degrees T Wave [place] 49 degrees [place] Diagnosis Sinus rhythm with 1st degree AV block Right bundle branch block No previous ECGs available Confirmed by Brandyn CONDE MATTHEW ([id number]) on 06/04/2025 6:17:17 PM Renal Function Panel Collection Time: 06/04/25 10:58 AM Result Value Ref Range Glucose 183 (H) 82 - 115 mg/dL BUN 81.4 (H) 9.8 - 20.1 mg/dL Creatinine 5.35 (H) 0.57 - 1.11 mg/dL BUN/Creatinine 15 8 - 20 eGFR (mL/min/1.73m2) 7 (L) >=60 mL/min/1.73m2 Sodium 142 136 - 145 meq/L Potassium 6.0 (HH) 3.4 - 5.1 meq/L Chloride 103 98 - 112 meq/L CO2 23 22 - 29 meq/L Anion Gap 22 (H) 4 - 12 Calcium 9.5 8.4 - 10.2 mg/dL Albumin 2.6 (L) 3.5 - 5.0 g/dL Phosphorus 5.1 (H) 2.5 - 4.5 mg/dL Osmolality Calc 312.4 mOsm/kg Glucose, Nova Meter Collection Time: 06/04/25 11:37 AM Result Value Ref Range POC-GLUCOSE 158 (H) 70 - 110 mg/dL [employer] [id number] MRSA Screen Collection Time: 06/04/25 1:23 PM Specimen: Nares; Nasal Result Value Ref Range MRSA by PCR [facility] MRSA Not Detected by PCR MRSA Not Detected by PCR Respiratory Panel Collection Time: 06/04/25 1:23 PM Specimen: Nasopharyngeal Swab Result Value Ref Range ADENOVIRUS Not detected Not detected CORONAVIRUS 229E Not detected Not detected CORONAVIRUS HKU1 Not detected Not detected CORONAVIRUS NL63 Not detected Not detected CORONAVIRUS OC43 Not detected Not detected SARS-COV2/RT-PCR Not Detected Not Detected HUMAN METAPNEUMOVIRUS Not detected Not detected HUMAN RHINOVIRUS/ENTEROVIRUS Not detected Not detected INFLUENZA A Not detected Not detected INFLUENZA B Not detected Not detected PARAINFLUENZA VIRUS 1 Not detected Not detected PARAINFLUENZA VIRUS 2 Not detected Not detected PARAINFLUENZA VIRUS 3 Not detected Not detected PARAINFLUENZA VIRUS 4 Not detected Not detected RESPIRATORY SYNCYTIAL VIRUS Not detected Not detected BORDETELLA PARAPERTUSSIS Not detected Not detected BORDETELLA PERTUSSIS Not detected Not detected CHLAMYDIA PNEUMONIAE Not detected Not detected MYCOPLASMA PNEUMONIAE Not detected Not detected Glucose, Nova Meter Collection Time: 06/04/25 5:48 PM Result Value Ref Range POC-GLUCOSE 137 (H) 70 - 110 mg/dL [employer] [id number] Renal Function Panel Collection Time: 06/04/25 5:59 PM Result Value Ref Range Glucose 143 (H) 82 - 115 mg/dL BUN 77.1 (H) 9.8 - 20.1 mg/dL Creatinine 5.22 (H) 0.57 - 1.11 mg/dL BUN/Creatinine 15 8 - 20 eGFR (mL/min/1.73m2) 8 (L) >=60 mL/min/1.73m2 Sodium 141 136 - 145 meq/L Potassium 5.7 (H) 3.4 - 5.1 meq/L Chloride 101 98 - 112 meq/L CO2 24 22 - 29 meq/L Anion Gap 22 (H) 4 - 12 Calcium 9.1 8.4 - 10.2 mg/dL Albumin 2.5 (L) 3.5 - 5.0 g/dL Phosphorus 5.3 (H) 2.5 - 4.5 mg/dL Osmolality Calc 306.7 mOsm/kg Urinalysis w/Microscopic Collection Time: 06/04/25 6:56 PM Result Value Ref Range Color, UA Light Yellow Clarity, UA Turbid (A) Clear Specific Goff, UA 1.013 1.005 - 1.030 pH, UA 5.5 (L) 6.0 - 8.0 Leukocytes, UA 250 Danielle/uL (A) Negative Nitrite, UA Negative Negative Protein, UA Trace (A) Negative Glucose, UA 2+ (A) Normal Ketones, UA Negative Negative Urobilinogen, UA Normal Normal Bilirubin, UA Negative Negative Blood, UA 3+ (A) Negative RBC, UA 51-100 (A) None Seen /HPF WBC, UA 21-50 (A) None Seen /HPF Bacteria, UA 1+ (A) None Seen, Trace Mucus 1+ (A) None Seen SQUAMOUS EPITHELIAL 0-2 (A) None Seen /HPF RENAL EPITHELIAL 0-2 (A) None Seen /HPF TRANSITIONAL EPITHELIAL CELLS 0-2 (A) None Seen /HPF HYALINE CASTS 3-5 (A) None Seen /LPF Specimen Source Urine, Ramirez ECG 12 lead Collection Time: 06/04/25 7:49 PM Result Value Ref Range VENTRICULAR RATE EKG/MIN 58 BPM ATRIAL RATE (MCT) 58 BPM GA Interval 230 ms QRS-INTERVAL (MSEC) 116 ms QT Interval 402 ms QTC Interval 394 ms P [place] 59 degrees R AXIS (MCT) 35 degrees T Wave [place] 12 degrees [place] Diagnosis Sinus bradycardia with 1st degree AV block with premature supraventricular complexes Right bundle branch block Abnormal ECG When compared with ECG of 04-JUN-2025 07:16, premature supraventricular complexes are now present Criteria for Septal infarct are no longer present Glucose, Nova Meter Collection Time: 06/04/25 8:47 PM Result Value Ref Range POC-GLUCOSE 109 70 - 110 mg/dL Electric Organ Checker [id number] ECG 12 lead Collection Time: 06/05/25 3:09 AM Result Value Ref Range SYSTOLIC BLOOD PRESSURE (MCT) 160 mmHg DIASTOLIC BLOOD PRESSURE (MCT) 66 mmHg VENTRICULAR RATE EKG/MIN 70 BPM ATRIAL RATE (MCT) 67 BPM QRS-INTERVAL (MSEC) 132 ms QT Interval 398 ms QTC Interval 429 ms R AXIS (MCT) 36 degrees T Wave [place] 53 degrees [place] Diagnosis Atrial fibrillation Right bundle branch block Anterior infarct , age undetermined Abnormal ECG When compared with ECG of 04-JUN-2025 19:49, Atrial fibrillation has replaced Sinus rhythm Anterior infarct is now present Basic Metabolic Panel Collection Time: 06/05/25 4:48 AM Result Value Ref Range Sodium 146 (H) 136 - 145 meq/L Potassium 4.6 3.4 - 5.1 meq/L CO2 30 (H) 22 - 29 meq/L Chloride 101 98 - 112 meq/L Glucose 105 82 - 115 mg/dL BUN 72.3 (H) 9.8 - 20.1 mg/dL Creatinine 4.79 (H) 0.57 - 1.11 mg/dL BUN/Creatinine 15 8 - 20 Calcium 8.7 8.4 - 10.2 mg/dL Anion Gap 20 (H) 4 - 12 eGFR (mL/min/1.73m2) 8 (L) >=60 mL/min/1.73m2 Osmolality Calc 312.2 mOsm/kg CBC with automated diff Collection Time: 06/05/25 4:48 AM Result Value Ref Range WBC 5.4 4.0 - 10.0 K/??L RBC 3.43 (L) 3.93 - 5.22 M/??L Hemoglobin 9.6 (L) 11.2 - 15.7 GM/DL Hematocrit 31.0 (L) 34.1 - 44.9 % MCV 90 79 - 95 fL MCH 28.0 25.6 - 32.2 pg MCHC 31.0 (L) 32.2 - 35.5 GM/DL RDW 17.2 (H) 11.7 - 14.4 % Platelets 87 (L) 140 - 375 K/CU MM MPV 11.5 9.4 - 12.3 fL % Neutros 78 (H) 34 - 71 % % Lymphs 10 (L) 19 - 52 % % Monos 10 5 - 13 % % Eos 0 (L) 1 - 6 % % Baso 0 0 - 1 % NRBC Absolute <0.01 0 - 0.012 K/ul # Neutros 4.22 1.56 - 6.13 K/??L # Lymphs 0.51 (L) 1.18 - 3.74 K/??L # Monos 0.51 0.24 - 0.86 K/??L # Eos <0.03 (L) 0.04 - 0.36 K/ L # Baso <0.03 0.01 - 0.08 K/ L Immature Granulocytes-Relative 2.40 (H) 0.01 - 0.43 % # IG 0.13 (H) 0.00 - 0.03 K/uL Glucose, Nova Meter Collection Time: 06/05/25 6:10 AM Result Value Ref Range POC-GLUCOSE 97 70 - 110 mg/dL Electric Organ Checker [id number] ECG 12 lead Collection Time: 06/05/25 8:06 AM Result Value Ref Range SYSTOLIC BLOOD PRESSURE (MCT) 151 mmHg DIASTOLIC BLOOD PRESSURE (MCT) 92 mmHg VENTRICULAR RATE EKG/MIN 63 BPM ATRIAL RATE (MCT) 88 BPM QRS-INTERVAL (MSEC) 136 ms QT Interval 440 ms QTC Interval 450 ms R AXIS (MCT) 29 degrees T Wave [place] 50 degrees [place] Diagnosis Atrial fibrillation Right bundle branch block Anterior infarct (cited on or before 05-JUN-2025) Abnormal ECG When compared with ECG of 05-JUN-2025 03:09, No significant change was found Glucose, Nova Meter Collection Time: 06/05/25 11:30 AM Result Value Ref Range POC-GLUCOSE 87 70 - 110 mg/dL Electric [employer] Checker [id number] Imaging: CT CHEST WITHOUT IV CONTRAST Result Date: 06/05/2025 CT SCAN OF THE CHEST WITHOUT CONTRAST 06/05/2025 10:51 AM HISTORY: Pneumonia, unresolved. PROCEDURE: Axial CT images were obtained from the lung apex to the mid abdomen without IV contrast. Coronal and sagittal reformatted images generated from the axial data set and provided for interpretation. This study was performed with techniques to keep radiation doses as low as reasonably achievable, (ALARA). Individualized dose reduction techniques using automated exposure control or adjustment of mA and/or kV according to the patient size were employed. COMPARISON: None. FINDINGS: CHEST: Lack of IV contrast somewhat limits evaluation of the thoracic viscera. Lungs/Pleura: There is severe emphysema. There is severe bronchial wall thickening in the bilateral mid and lower lung zones. Patchy peribronchial consolidations are consistent with bronchopneumonia. There is superimposed atelectasis. No pneumothorax or pleural effusion. Heart, vessels and mediastinum: The heart is normal in size. No erika cardial effusion. There is enlargement of the pulmonary arteries, at to 42 mm. This is consistent with pulmonary arterial hypertension. Coronary artery disease is present. Lymph nodes: No pathologically enlarged thoracic lymph nodes within the limits of a noncontrast-enhanced examination. Chest wall: No acute findings. Bones: No acute fracture. Upper abdomen: Gallbladder is distended with gallstones. There is no evidence of acute cholecystitis. A feeding tube is in place. Bronchopneumonia with superimposed atelectasis. Images reviewed, interpreted, and dictated by Dr. Lino Main. Transcribed by Estela Bueno PA-C. XR KUB PORTABLE Result Date: 06/04/2025 KUB 06/04/2025 2:50 PM HISTORY: Feeding tube placement. COMPARISON: None. FINDINGS: A single view of the abdomen was performed. The feeding tube is identified below the diaphragm at the junction of the second and third portions of duodenum. There is a nonspecific, nonobstructive bowel gas pattern. Corpak feeding tube tip terminates in the second and third portions of duodenum. Images reviewed, interpreted, and dictated by Dr. Matt Lund. Transcribed by Marzena Menendez PA-C. Ultrasound renal limited Result Date: 06/04/2025 RENAL ULTRASOUND HISTORY: Acute kidney injury. PROCEDURE: Ultrasound images of the kidneys were obtained. FINDINGS: Limited images of the liver parenchyma demonstrate normal echogenicity . There are gallstones within the gallbladder. The right kidney measures 10 cm in length. It is normal echogenicity . There is no hydronephrosis . The left kidney measures 11 cm in length. It is normal echogenicity . There is no hydronephrosis . Normal renal ultrasound . Images reviewed, interpreted, and dictated by Dr. Marisela Luther. Transcribed by Maryam Duran PA-C. 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 HR: 60 bpmPatient Status: Routine IP [facility]quate [facility] History/Tech Notes: Indication: altered mental [id number] Impression: Definity ultrasound enhancing agent administered for endocardial border definition. ######################################## Normal sized left ventricle. Mild left ventricular hypertrophy. Visually estimated ejection fraction 55% +/- 5%. Normal left ventricular systolic function with normal systolic strain pattern. Normal left ventricular diastolic function. Normal right ventricular size and function. No hemodynamically significant valvular heart disease. ######################################## Measurements Summary: LVEDd: 3.77 cm LVESd: 2.47 cm IVSEd: 1.28 cm AO Root:3.08 cm LVPWd: 0.8 cm Contractility Score Normal Left Ventricular contractility was noted. LV regional wall motion: (0-Not visualized 1-Normal 2-Hypokinesis 3-Akinesis 4- Dyskinesis 5-Aneurysm) Left Ventricle Peak E-wave: 0.97 Peak A-wave: 1.16 m/s E/A ratio: 0.83 m/s Volume [id number] LV length: 7.95 cm CO: 5.84 l/min ml CI: 2.95 l/min*m^2 Volume [id number] ml LVOT diameter: 2.11 cm Normal sized left ventricle. Mild left ventricular hypertrophy. Visually estimated ejection fraction 55% +/- 5%. Normal left ventricular systolic function with normal systolic strain pattern. Normal left ventricular diastolic function. No left ventricular masses or thrombi. Right Ventricle Diastolic dimension:3.39 RV systolic pressure: 24.99 mmHg cm Normal sized right ventricle. Normal TAPSE c/w normal right ventricular function Left Atrium LA dimension: 3.85 cm LA volume:48.99 ml LA/Aorta: 1.25 Normal sized left atrium. Normal left atrial volume index 24.74 ml/m^2. Intact atrial septum. No atrial mass or thrombus. Right Atrium Abnormal right atrial size. Intact atrial septum. No atrial mass or thrombus. Mitral Valve Deceleration time: Mean velocity: 0.8 178.78 msec Area (continuity): m/s 2.95 cm^2 Mean gradient: 2.84 mmHg Peak gradient: 6.38 mmHg Structurally normal mitral valve. Mitral valve annulus calcification. Mild (1+) mitral regurgitation. No mitral stenosis. No masses or vegetations seen. Aortic Valve LVOT VTI: 27.84 cm Mildly thickend free edges of the aortic valve leaflets. Trace aortic valve regurgitation. No aortic stenosis. No masses or vegetations seen. Tricuspid Valve TR velocity: 2.06 m/s TR gradient: 16.92050 mmHg Estimated RAP: 8 mmHg RVSP: 24.99 mmHg Structurally normaltricuspid valve. Trace tricuspid regurgitation. No tricuspid stenosis. No masses or vegetations seen. Pulmonic Valve Acceleration time: 74.22 msec PASP: 24.99 mmHg Structurally normal pulmonic valve.Abnormal pulmonary acceleration time. Trace pulmonic valve regurgitation. No pulmonic stenosis. No masses or vegetations seen. Great Vessels Aorta Aortic Root: 3.08 cm Ascending Aorta: 3.12 cm LVOT Diameter: 2.11 cm Visualized thoracic aorta is normal. Normal aortic root. No evidence of dissection.Dilated IVC with partial inspiratory collapse. Borderline elevated central venous pressure (8-12mmHg). Pericardium / Pleura No pericardial effusion. XR chest AP portable Result Date: 06/04/2025 PORTABLE CHEST 06/04/2025 9:06 AM HISTORY: Acute shortness of breath COMPARISON: 6 hours prior FINDINGS: The heart is mildly enlarged. The mediastinum is unremarkable. Lungs are underinflated with chronic changes throughout both lungs. There is bibasilar atelectasis. There is no pneumothorax. The osseous structures are unremarkable. No acute cardiopulmonary process. Images reviewed, interpreted, and dictated by Dr. Matt Lund. Transcribed by Marzena Menendez PA-C. XR chest AP portable Result Date: 06/04/2025 PORTABLE CHEST 06/04/2025 1:44 AM HISTORY: Acute shortness of breath. COMPARISON: May 18, 2020. FINDINGS: The heart is normal in size . The mediastinum is unremarkable . Lungs are underinflatedwith mild chronic changes in the bases. There is no pneumothorax . No acute cardiopulmonary process . Images reviewed, interpreted, and dictated by Dr. Matt Lund. Transcribed by Pal Cosby PA-C Assessment: Acute kidney injury likely ATN on stage III CKD Hyperkalemia, resolved HAG Metabolic acidosis Uremic and Lactic, resolved Encephalopathy, likely metabolic Thrombocytopenia H/o essential HTN Type II DM Obesity Chronic hypoxemic respiratory failure [place] Plan: -Renal function has improved. No need for INTEGRITY CONSULTANT at this time. -Hyperkalemia and Metabolic acidosis had resolved -Held home meds Irbesartan, Spironolactone, Metformin, and Farxiga. -Initiated RICHIE work up -Avoidance of nephrotoxins -Renal dosing of meds -Follow renal function, electrolytes, I/O, and acid base status very closely -Further management of other medical problems is per primary team and other specialities Thank you for this interesting consultation. Please do not hesitate to contact me with any questionor concern regarding this patient at [phone]. Electronically signed by Holger Mishra MD 06/05/2025 at 1:29 PM EDT * Jb Turner MD - 06/05/2025 11:00 AM EDT HOSPITALIST PROGRESS NOTE Patient: Kirstie Pope New Date: 06/05/2025 Subjective Date of Service: 06/05/2025 Patient seen and examined at bedside this AM. In ICU. Lethargic and sleepy this morning. Requiring 6 L nasal cannula. Off sodium bicarbonate drip. Removed her Corpak this morning. No family at the bedside Objective Vitals: Temp: [96.2 ??F (35.7 ??C)-97.9 ??F (36.6 ??C)] 96.2 ??F (35.7 ??C) Pulse: [55-135] 61 Resp: [06-25] 12 BP: (110-159)/(52-104) 151/66 Intake/Output: Intake/Output Summary (Last 24 hours) at 06/05/2025 1100 Last data filed at 06/05/2025 0911 Gross per 24 hour Intake 450 ml Output 1625 ml Net -1175 ml Physical exam: General: Drowsy and lethargic, no acute distress Neurologic: no apparent focal deficits Eye: normal conjunctiva HENT: Normocephalic, atraumatic Neck: no JVD Lungs: Poor air entry bilaterally Heart: Normal rate, regular rhythm Abdomen: nondistended Musculoskeletal: Normal range of motion and strength, no tenderness or swelling Skin: Skin is warm, dry, no rashes or lesions Labs: Results for orders placed or performed during the hospital encounter of 06/03/25 (from the past 24 hours) Glucose, Nova Meter Status: Abnormal Collection Time: 06/04/25 11:37 AM Result Value Ref Range POC-GLUCOSE 158 (H) 70 - 110 mg/dL Electric Organ Checker [id number] MRSA Screen Status: Normal Collection Time: 06/04/25 1:23 PM Specimen: Nares; Nasal Result Value Ref Range MRSA by PCR [facility] MRSA Not Detected by PCR MRSA Not Detected by PCR Respiratory Panel Status: Normal Collection Time: 06/04/25 1:23 PM Specimen: Nasopharyngeal Swab Result Value Ref Range ADENOVIRUS Not detected Not detected CORONAVIRUS 229E Not detected Not detected CORONAVIRUS HKU1 Not detected Not detected CORONAVIRUS NL63 Not detected Not detected CORONAVIRUS OC43 Not detected Not detected SARS-COV2/RT-PCR Not Detected Not Detected HUMAN METAPNEUMOVIRUS Not detected Not detected HUMAN RHINOVIRUS/ENTEROVIRUS Not detected Not detected INFLUENZA A Not detected Not detected INFLUENZA B Not detected Not detected PARAINFLUENZA VIRUS 1 Not detected Not detected PARAINFLUENZA VIRUS 2 Not detected Not detected PARAINFLUENZA VIRUS 3 Not detected Not detected PARAINFLUENZA VIRUS 4 Not detected Not detected RESPIRATORY SYNCYTIAL VIRUS Not detected Not detected BORDETELLA PARAPERTUSSIS Not detected Not detected BORDETELLA PERTUSSIS Not detected Not detected CHLAMYDIA PNEUMONIAE Not detected Not detected MYCOPLASMA PNEUMONIAE Not detected Not detected Glucose, Nova Meter Status: Abnormal Collection Time: 06/04/25 5:48 PM Result Value Ref Range POC-GLUCOSE 137 (H) 70 - 110 mg/dL Electric Organ Checker [id number] Renal Function Panel Status: Abnormal Collection Time: 06/04/25 5:59 PM Result Value Ref Range Glucose 143 (H) 82 - 115 mg/dL BUN 77.1 (H) 9.8 - 20.1 mg/dL Creatinine 5.22 (H) 0.57 - 1.11 mg/dL BUN/Creatinine 15 8 - 20 eGFR (mL/min/1.73m2) 8 (L) >=60 mL/min/1.73m2 Sodium 141 136 - 145 meq/L Potassium 5.7 (H) 3.4 - 5.1 meq/L Chloride 101 98 - 112 meq/L CO2 24 22 - 29 meq/L Anion Gap 22 (H) 4 - 12 Calcium 9.1 8.4 - 10.2 mg/dL Albumin 2.5 (L) 3.5 - 5.0 g/dL Phosphorus 5.3 (H) 2.5 - 4.5 mg/dL Osmolality Calc 306.7 mOsm/kg Urinalysis w/Microscopic Status: Abnormal Collection Time: 06/04/25 6:56 PM Result Value Ref Range Color, UA Light Yellow Clarity, UA Turbid (A) Clear Specific Goff, UA 1.013 1.005 - 1.030 pH, UA 5.5 (L) 6.0 - 8.0 Leukocytes, UA 250 Danielle/uL (A) Negative Nitrite, UA Negative Negative Protein, UA Trace (A) Negative Glucose, UA 2+ (A) Normal Ketones, UA Negative Negative Urobilinogen, UA Normal Normal Bilirubin, UA Negative Negative Blood, UA 3+ (A) Negative RBC, UA 51-100 (A) None Seen /HPF WBC, UA 21-50 (A) None Seen /HPF Bacteria, UA 1+ (A) None Seen, Trace Mucus 1+ (A) None Seen SQUAMOUS EPITHELIAL 0-2 (A) None Seen /HPF RENAL EPITHELIAL 0-2 (A) None Seen /HPF TRANSITIONAL EPITHELIAL CELLS 0-2 (A) None Seen /HPF HYALINE CASTS 3-5 (A) None Seen /LPF Specimen Source Urine, Ramirez ECG 12 lead Status: None (In process) Collection Time: 06/04/25 7:49 PM Result Value Ref Range VENTRICULAR RATE EKG/MIN 58 BPM ATRIAL RATE (MCT) 58 BPM GA Interval 230 ms QRS-INTERVAL (MSEC) 116 ms QT Interval 402 ms QTC Interval 394 ms P [place] 59 degrees R AXIS (MCT) 35 degrees T Wave [place] 12 degrees [place] Diagnosis Sinus bradycardia with 1st degree AV block with premature supraventricular complexes Right bundle branch block Abnormal ECG When compared with ECG of 04-JUN-2025 07:16, premature supraventricular complexes are now present Criteria for Septal infarct are no longer present Glucose, Nova Meter Status: None Collection Time: 06/04/25 8:47 PM Result Value Ref Range POC-GLUCOSE 109 70 - 110 mg/dL Electric Organ Checker [id number] ECG 12 lead Status: None (In process) Collection Time: 06/05/25 3:09 AM Result Value Ref Range SYSTOLIC BLOOD PRESSURE (MCT) 160 mmHg DIASTOLIC BLOOD PRESSURE (MCT) 66 mmHg VENTRICULAR RATE EKG/MIN 70 BPM ATRIAL RATE (MCT) 67 BPM QRS-INTERVAL (MSEC) 132 ms QT Interval 398 ms QTC Interval 429 ms R AXIS (MCT) 36 degrees T Wave [place] 53 degrees [place] Diagnosis Atrial fibrillation Right bundle branch block Anterior infarct , age undetermined Abnormal ECG When compared with ECG of 04-JUN-2025 19:49, Atrial fibrillation has replaced Sinus rhythm Anterior infarct is now present Basic Metabolic Panel Status: Abnormal Collection Time: 06/05/25 4:48 AM Result Value Ref Range Sodium 146 (H) 136 - 145 meq/L Potassium 4.6 3.4 - 5.1 meq/L CO2 30 (H) 22 - 29 meq/L Chloride 101 98 - 112 meq/L Glucose 105 82 - 115 mg/dL BUN 72.3 (H) 9.8 - 20.1 mg/dL Creatinine 4.79 (H) 0.57 - 1.11 mg/dL BUN/Creatinine 15 8 - 20 Calcium 8.7 8.4 - 10.2 mg/dL Anion Gap 20 (H) 4 - 12 eGFR (mL/min/1.73m2) 8 (L) >=60 mL/min/1.73m2 Osmolality Calc 312.2 mOsm/kg CBC with automated diff Status: Abnormal Collection Time: 06/05/25 4:48 AM Result Value Ref Range WBC 5.4 4.0 - 10.0 K/??L RBC 3.43 (L) 3.93 - 5.22 M/??L Hemoglobin 9.6 (L) 11.2 - 15.7 GM/DL Hematocrit 31.0 (L) 34.1 - 44.9 % MCV 90 79 - 95 fL MCH 28.0 25.6 - 32.2 pg MCHC 31.0 (L) 32.2 - 35.5 GM/DL RDW 17.2 (H) 11.7 - 14.4 % Platelets 87 (L) 140 - 375 K/CU MM MPV 11.5 9.4 - 12.3 fL % Neutros 78 (H) 34 - 71 % % Lymphs 10 (L) 19 - 52 % % Monos 10 5 - 13 % % Eos 0 (L) 1 - 6 % % Baso 0 0 - 1 % NRBC Absolute <0.01 0 - 0.012 K/ul # Neutros 4.22 1.56 - 6.13 K/??L # Lymphs 0.51 (L) 1.18 - 3.74 K/??L # Monos 0.51 0.24 - 0.86 K/??L # Eos <0.03 (L) 0.04 - 0.36 K/ L # Baso <0.03 0.01 - 0.08 K/ L Immature Granulocytes-Relative 2.40 (H) 0.01 - 0.43 % # IG 0.13 (H) 0.00 - 0.03 K/uL Glucose, Nova Meter Status: None Collection Time: 06/05/25 6:10 AM Result Value Ref Range POC-GLUCOSE 97 70 - 110 mg/dL Electric Organ Checker [id number] ECG 12 lead Status: None (In process) Collection Time: 06/05/25 8:06 AM Result Value Ref Range SYSTOLIC BLOOD PRESSURE (MCT) 151 mmHg DIASTOLIC BLOOD PRESSURE (MCT) 92 mmHg VENTRICULAR RATE EKG/MIN 63 BPM ATRIAL RATE (MCT) 88 BPM QRS-INTERVAL (MSEC) 136 ms QT Interval 440 ms QTC Interval 450 ms R AXIS (MCT) 29 degrees T Wave [place] 50 degrees [place] Diagnosis Atrial fibrillation Right bundle branch block Anterior infarct (cited on or before 05-JUN-2025) Abnormal ECG When compared with ECG of 05-JUN-2025 03:09, No significant change was found Radiology: Radiology Results (last 3 days) Procedure Component Value Units Date/Time XR KUB PORTABLE [[id number]] Collected: 06/04/25 1525 Order Status: Completed Updated: 06/04/25 1536 Narrative: KUB 06/04/2025 2:50 PM HISTORY: Feeding tube placement. COMPARISON: None. FINDINGS: A single view of the abdomen was performed. The feeding tube is identified below the diaphragm at the junction of the second and third portions of duodenum. There is a nonspecific, nonobstructive bowel gas pattern. Impression: Corpak feeding tube tip terminates in the second and third portions of duodenum. Images reviewed, interpreted, and dictated by Dr. Matt Lund. Transcribed by Marzena [place], PA-C. Ultrasound renal limited [[id number]] Collected: 06/04/25 1435 Order Status: Completed Updated: 06/04/25 1447 Narrative: RENAL ULTRASOUND HISTORY: Acute kidney injury. PROCEDURE: Ultrasound images of the kidneys were obtained. FINDINGS: Limited images of the liver parenchyma demonstrate normal echogenicity . There are gallstones within the gallbladder. The right kidney measures 10 cm in length. It is normal echogenicity . There is no hydronephrosis . The left kidney measures 11 cm in length. It is normal echogenicity . There is no hydronephrosis . Impression: Normal renal ultrasound . Images reviewed, interpreted, and dictated by Dr. Marisela Luther. Transcribed by Maryam Duran PA-C. XR chest AP portable [[id number]] Collected: 06/04/25 1000 Order Status: Completed Updated: 06/04/25 1004 Narrative: PORTABLE CHEST 06/04/2025 9:06 AM HISTORY: Acute shortness of breath COMPARISON: 6 hours prior FINDINGS: The heart is mildly enlarged. The mediastinum is unremarkable. Lungs are underinflated with chronic changes throughout both lungs. There is bibasilar atelectasis. There is no pneumothorax. The osseous structures are unremarkable. Impression: No acute cardiopulmonary process. Images reviewed, interpreted, and dictated by Dr. Matt Lund. Transcribed by Marzena Menendez PA-C. XR chest AP portable [[id number]] Collected: 06/04/25 0729 Order Status: Completed Updated: 06/04/25 0740 Narrative: PORTABLE CHEST 06/04/2025 1:44 AM HISTORY: Acute shortness of breath. COMPARISON: May 18, 2020. FINDINGS: The heart is normal in size . The mediastinum is unremarkable . Lungs are underinflated with mild chronic changes in the bases. There is no pneumothorax . Impression: No acute cardiopulmonary process . Images reviewed, interpreted, and dictated by Dr. Matt Lund. Transcribed by Pal Cosby PA-C Medications: Scheduled Meds: aztreonam 500 mg intravenous Q12H 500 mg at 06/05/25 0907 budesonide 0.5 mg nebulization 2 times daily 0.5 mg at 06/05/25 0819 doxycycline 100 mg intravenous Q12H IVPB Stopped at 06/05/25 1011 famotidine 20 mg oral Daily 20 mg at 06/04/25 1538 heparin 5,000 Units subcutaneous Q8H 5,000 Units at 06/05/25 0452 insulin lispro 0-6 Units subcutaneous 4x Daily AC 1 Units at 06/04/25 1230 ipratropium-albuteroL 3 mL nebulization 2 times daily 3 mL at 06/05/25 0818 polyethylene glycol 3350 17 g oral Daily Saccharomyces boulardii 250 mg oral BID 250 mg at 06/04/25 2040 sodium polystyrene sulf-sorbtL 60 g oral Once Continuous Infusions: Current Facility-Administered Medications Medication Dose Route Frequency Provider Last Rate Last Admin acetaminophen (TYLENOL) tablet 650 mg 650 mg oral Q6H PRN Sima Mancia MD aztreonam (AZACTAM) 500 mg in sodium chloride 0.9 % (NS) 100 mL IVPB 500 mg intravenous Q12H MD Cherelle 0 mL/hr at 06/04/25 2339 500 mg at 06/05/25 0907 budesonide (PULMICORT) nebulizer suspension 0.5 mg 0.5 mg nebulization 2 times daily Sima Mancia MD 0.5 mg at 06/05/25 0819 dextrose 50% (D50W) injection 25 g 25 g intravenous Q15 Min PRAmelie Mancia MD doxycycline (VIBRAMYCIN) 100 mg in sodium chloride 0.9 % (NS) MADELEINE IVPB 100 mg intravenous Q12H Octavio Odell MD IVPB Stopped at 06/05/25 1011 famotidine (PEPCID) tablet 20 mg 20 mg oral Daily Sima Mancia MD 20 mg at 06/04/25 1538 glucagon injection 1 mg 1 mg intraMUSCULAR Q15 Min PRN Sima Mancia MD glucose chew tab 16 g 16 g oral Q15 Min PRN Sima Mancia MD heparin injection 5,000 Units 5,000 Units subcutaneous Q8H Octavio Odell MD 5,000 Units at 06/05/25 0452 hydrALAZINE (APRESOLINE) injection 10 mg 10 mg intravenous Q6H PRAmelie Mancia MD insulin lispro (HUMALOG, ADMELOG) injection 0-6 Units 0-6 Units subcutaneous 4x Daily AC Sima Mancia MD 1 Units at 06/04/25 1230 ipratropium-albuteroL (DUO-NEB) 0.5 mg-3 mg(2.5 mg base)/3 mL nebulizer solution 3 mL 3 mL nebulization 2 times daily Sima Mancia MD 3 mL at 06/05/25 0818 ondansetron (ZOFRAN) injection 4 mg 4 mg intravenous Q6H PRN Sima Mancia MD polyethylene glycol (GLYCOLAX) packet 17 g 17 g oral Daily PRN Sima Mancia MD polyethylene glycol (GLYCOLAX) packet 17 g 17 g oral Daily Octavio Odell MD Saccharomyces boulardii (FLORASTOR) capsule 250 mg 250 mg oral BID Sima Mancia MD 250 mg at 06/04/252039 sennosides-docusate sodium (SENOKOT S) 8.6-50 mg tablet 1 tablet 1 tablet oral BID PRN Sima Mancia MD sodium polystyrene sulf-sorbtL 15-20 gram/60 mL suspension 60 g 60 g oral Once Holger Mishra MD PRN Meds: @[email or web address]@ Medications Discontinued During This Encounter Medication Reason doxycycline (MONODOX) capsule 100 mg cefTRIAXone (ROCEPHIN) 1 g in sodium chloride 0.9 % (NS) 50 mL MADELEINE IVPB piperacillin-tazobactam (ZOSYN) 2.25 g in sodium chloride 0.9 % (NS) MBP 50 mL IVPB sodium chloride 0.9 % infusion guaiFENesin (mucINEX) 12 hr tablet 600 mg sodium bicarbonate 150 mEq in sterile water 1,150 mL infusion aztreonam (AZACTAM) 1 g in sodium chloride 0.9 % (NS) MBP IVPB doxycycline (VIBRAMYCIN) capsule 100 mg sodium bicarbonate 150 mEq in sterile water 1,150 mL infusion Assessment and Plan Acute on chronic renal failure stage III with metabolic acidosis and hyperkalemia -Likely prerenal due to volume depletion -Baseline Cr unknown -Creatinine 5.3---> 4.7 -At home is on irbesartan -Urine studies ordered -Renal US noted within normal limit -Sodium bicarbonate drip discontinued -Nephro consulted Hyperkalemia -Due to renal failure -K+ at [facility] 7.2 -->6.1--> 6.0---> 4.6 -Hyperkalemia protocol at [facility] -[facility] ordered -Continue sodium bicarbonate drip -Monitor closely. -Nephrology following -Resolved Acute on Chronic Hypoxic Respiratory Failure due to PNA Asthma -At baseline on 2L NC, currently on 6 L NC -Imaging at [facility] showed patchy infiltrate R mid to lower lung -Urine strep and legionella - Neg -Speech swallow eval -Corpak and start tube feed for now -DuoNebs BID -Has allergy to Ceftriaxone did get on admission and received solumedrol and benadryl, currently onAztreonam and Dox -CT scan chest pending. -Continue broad-spectrum IV antibiotics. -Pulmonary consulted Acute Metabolic Encephalopathy -Likely due to renal failure -Pt was confused at nursing facility -CT Head showed no acute abnormality -Speech evaluation -May need Corpak and start tube feeding Urinary tract infection. Urinalysis noted. Urine culture pending. Continue broad-spectrum IV antibiotics Fall -CT C-Spine showed degenerative changes C3-4, C6-7, central canal narrowing C4- C5, C5-C6 -CT T-Spine showed showed stable moderate compression T12 -PT/OT Lactic Acidosis -Likely multifactorial volume depletion and hypoxia -Lactic acid 2.4 -Monitor Hypomagnesemia -Replace and monitor Anemia -Hgb currently 10 -Will check iron studies -Monitor Thrombocytopenia -Plt 84K -Will check B12 -Monitor HTN -Hold Irbesartan -IV Hydralazine PRN DM 2, Neuropathy -SSI -Have not restarted Lyrica at this time DVT: SCD's at this time Diet: Orders Placed This Encounter Procedures Level 6 Soft and Bite Sized Dysphagia diet Additional Modifiers: Consistent Carbohydrate, Low Potassium; Carbohydrate: 5 Carbohydrate (5 CHO, 75g per meal) Code Status: Current Code Status Full Code Discharge Planning: Acute on chronic renal failure with hyperkalemia and metabolic acidosis. Continue ICU management. Discharge date unable to determine. Signed: Jb Turner MD 06/05/2025, 12:22 PM * Octavio Odell MD - 06/05/2025 7:53 AM EDT Images from the original note were not included. Pulm/CC Date of consultation: 06/03/2025 Reason for consultation: ICU admission, renal failure Chief complaint: Weakness History of present illness: Patient is an 84-year-old female who presented to an outlying facility from the longterm for altered mental status. Patient has a past medical history including type 2 diabetes mellitus, chronic hypoxemic respiratory failure, chronic kidney disease, BRIDGETTE, hyperlipidemia, depression, GERD. Her mental status has deteriorated over the past couple of days with on and off confusion. Per report she has had multiple ground-level falls without trauma. In the emergency department her blood pressure was 105/44 with a heart rate in the 60s. She does have chronic respiratory failure and typically wears 2 L O2. Her initial laboratory data revealed sodium 140, potassium 7.2, serum CO2 24, serum creatin ine 6.00, glucose 115, WBC 8.5. Patient had a CT scan of the head that revealed no acute abnormalities. CT scan revealed diffuse patchy infiltrate noted throughout the right mid and lower lung. Patient was transferred to [facility] and admitted to the ICU. Pulmonary/critical care consulted for ICU admission. At time of evaluation, patient is awake, answering most questions appropriately. On 2 L O2 with adequate saturation. Hemodynamically stable not requiring vasopressors. No family present at bedside. She denies nausea, vomiting, diarrhea. No chest pain. 06/04 seen examined today, encephalopathic, confused, awake but not oriented, hypoxic 8 L nasal cannula bicarb drip, Azactam/Doxy, chest x-ray right lung infiltrate. Pneumonia panel pending, magnesium replaced, creatinine 5.35, urine output 300 cc. Nephrology following, ultrasound kidney pending 06/05: Seen and examined, awake, follow commands, 5 L nasal cannula, hemodynamically stable, afebrile, Azactam/Doxy. Creatinine trending down 4.7, UOP 1200 cc last 24 hours, 750 cc overnight, nephrology following p.o. diet Discontinue bicarb drip CAT scan of the chest pending PAST MEDICAL HISTORY: Past Medical History: Diagnosis Date Asthma Chronic kidney disease Emphysema lung (HCC) History of degenerative disc disease Hypertension Lumbar radiculopathy PAST SURGICAL HISTORY: Allergies: Allergies Allergen Reactions Azithromycin Ceftriaxone Pollen Extracts SOCIAL HISTORY: Social History Tobacco Use Smoking status: Former Current packs/day: 0.00 Types: Cigarettes Quit date: 2014 Years since quittin.7 Smokeless tobacco: Never Substance Use Topics Alcohol use: Never Drug use: Never FAMILY HISTORY: Family history is unknown by patient. ROS Constitutional: No fever, no weight changes HEENT: No headaches, no vision changes Cardiac: No chest pain, no palpitations, no orthopnea Pulmonary: No SOB, no TOLLIVER, no cough GI: No nausea, no vomiting, no abdominal pain, no melena, no constipation, no diarrhea : No dysuria, no hematuria, no flank pain MSK: No muscle cramping, + muscle weakness Neuro: No paresthesias, no focal deficits Skin: No rashes, no skin lesions Psych: No depression, no anxiety Vital Signs Temp: [97.2 ??F (36.2 ??C)-98.2 ??F (36.8 ??C)] 97.9 ??F (36.6 ??C) Pulse: [55-135] 65 Resp: [10-53] 12 BP: (110-159)/(52-104) 151/66 Current: Temp: 97.9 ??F (36.6 ??C) Pulse: 65 Resp: 12 BP: (!) 151/66 SpO2: 98 % 24 Hour: BP Min: 110/52 Max: 159/67 Temp Min: 97.2 ??F (36.2 ??C) Max: 98.2 ??F (36.8 ??C) Pulse Min: 55 Max: 135 Resp Min: 10 Max: 53 SpO2 Min: 91 % Max: 99 % Intake/Output: I/O last 3 completed shifts: In: 627.1 [I.V.:277.1; NG/GT:250; IV Piggyback:100] Out: 1175 [Urine:1175] Physical examination: General: Awake but confused Eyes: Pupils equal, round, reactive to light, extraocular movements intact, normal conjunctiva HENT: Normocephalic, atraumatic, Supple, nontender, no carotid bruit Respiratory: Breath sounds equal bilaterally, decreased in the bases, no rhonchi or wheezing Cardiovascular: Normal rhythm, normal rate, currently with controlled rate, S1-S2 Gastrointestinal: Soft, nontender, nondistended, normoactive bowel sounds Integumentary: Warm, intact Genitourinary: Deferred MSK: No deformities, normal range of motion Neurologic: Mostly alert, answers questions appropriately Psychiatric: Cooperative, appropriate mood Vent / O2 Management: LABS Results for orders placed or performed during the hospital encounter of 06/03/25 (from the past 24 hours) Renal Function Panel Status: Abnormal Collection Time: 06/04/25 10:58 AM Result Value Ref Range Glucose 183 (H) 82 - 115 mg/dL BUN 81.4 (H) 9.8 - 20.1 mg/dL Creatinine 5.35 (H) 0.57 - 1.11 mg/dL BUN/Creatinine 15 8 - 20 eGFR (mL/min/1.73m2) 7 (L) >=60 mL/min/1.73m2 Sodium 142 136 - 145 meq/L Potassium 6.0 (HH) 3.4 - 5.1 meq/L Chloride 103 98 - 112 meq/L CO2 23 22 - 29 meq/L Anion Gap 22 (H) 4 - 12 Calcium 9.5 8.4 - 10.2 mg/dL Albumin 2.6 (L) 3.5 - 5.0 g/dL Phosphorus 5.1 (H) 2.5 - 4.5 mg/dL Osmolality Calc 312.4 mOsm/kg Glucose, Nova Meter Status: Abnormal Collection Time: 06/04/25 11:37 AM Result Value Ref Range POC-GLUCOSE 158 (H) 70 - 110 mg/dL Electric Organ Checker [id number] MRSA Screen Status: Normal Collection Time: 06/04/25 1:23 PM Specimen: Nares; Nasal Result Value Ref Range MRSA by PCR [facility] MRSA Not Detected by PCR MRSA Not Detected by PCR Respiratory Panel Status: Normal Collection Time: 06/04/25 1:23 PM Specimen: Nasopharyngeal Swab Result Value Ref Range ADENOVIRUS Not detected Not detected CORONAVIRUS 229E Not detected Not detected CORONAVIRUS HKU1 Not detected Not detected CORONAVIRUS NL63 Not detected Not detected CORONAVIRUS OC43 Not detected Not detected SARS-COV2/RT-PCR Not Detected Not Detected HUMAN METAPNEUMOVIRUS Not detected Not detected HUMAN RHINOVIRUS/ENTEROVIRUS Not detected Not detected INFLUENZA A Not detected Not detected INFLUENZA B Not detected Not detected PARAINFLUENZA VIRUS 1 Not detected Not detected PARAINFLUENZA VIRUS 2 Not detected Not detected PARAINFLUENZA VIRUS 3 Not detected Not detected PARAINFLUENZA VIRUS 4 Not detected Not detected RESPIRATORY SYNCYTIAL VIRUS Not detected Not detected BORDETELLA PARAPERTUSSIS Not detected Not detected BORDETELLA PERTUSSIS Not detected Not detected CHLAMYDIA PNEUMONIAE Not detected Not detected MYCOPLASMA PNEUMONIAE Not detected Not detected Glucose, Nova Meter Status: Abnormal Collection Time: 06/04/25 5:48 PM Result Value Ref Range POC-GLUCOSE 137 (H) 70 - 110 mg/dL Electric Organ Checker [id number] Renal Function Panel Status: Abnormal Collection Time: 06/04/25 5:59 PM Result Value Ref Range Glucose 143 (H) 82 - 115 mg/dL BUN 77.1 (H) 9.8 - 20.1 mg/dL Creatinine 5.22 (H) 0.57 - 1.11 mg/dL BUN/Creatinine 15 8 - 20 eGFR (mL/min/1.73m2) 8 (L) >=60 mL/min/1.73m2 Sodium 141 136 - 145 meq/L Potassium 5.7 (H) 3.4 - 5.1 meq/L Chloride 101 98 - 112 meq/L CO2 24 22 - 29 meq/L Anion Gap 22 (H) 4 - 12 Calcium 9.1 8.4 - 10.2 mg/dL Albumin 2.5 (L) 3.5 - 5.0 g/dL Phosphorus 5.3 (H) 2.5 - 4.5 mg/dL Osmolality Calc 306.7 mOsm/kg Urinalysis w/Microscopic Status: Abnormal Collection Time: 06/04/25 6:56 PM Result Value Ref Range Color, UA Light Yellow Clarity, UA Turbid (A) Clear Specific Goff, UA 1.013 1.005 - 1.030 pH, UA 5.5 (L) 6.0 - 8.0 Leukocytes, UA 250 Danielle/uL (A) Negative Nitrite, UA Negative Negative Protein, UA Trace (A) Negative Glucose, UA 2+ (A) Normal Ketones, UA Negative Negative Urobilinogen, UA Normal Normal Bilirubin, UA Negative Negative Blood, UA 3+ (A) Negative RBC, UA 51-100 (A) None Seen /HPF WBC, UA 21-50 (A) None Seen /HPF Bacteria, UA 1+ (A) None Seen, Trace Mucus 1+ (A) None Seen SQUAMOUS EPITHELIAL 0-2 (A) None Seen /HPF RENAL EPITHELIAL 0-2 (A) None Seen /HPF TRANSITIONAL EPITHELIAL CELLS 0-2 (A) None Seen /HPF HYALINE CASTS 3-5 (A) None Seen /LPF Specimen Source Urine, Ramirez ECG 12 lead Status: None (In process) Collection Time: 06/04/25 7:49 PM Result Value Ref Range VENTRICULAR RATE EKG/MIN 58 BPM ATRIAL RATE (MCT) 58 BPM GA Interval 230 ms QRS-INTERVAL (MSEC) 116 ms QT Interval 402 ms QTC Interval 394 ms P [place] 59 degrees R AXIS (MCT) 35 degrees T Wave [place] 12 degrees [place] Diagnosis Sinus bradycardia with 1st degree AV block with premature supraventricular complexes Right bundle branch block Abnormal ECG When compared with ECG of 04-JUN-2025 07:16, premature supraventricular complexes are now present Criteria for Septal infarct are no longer present Glucose, Nova Meter Status: None Collection Time: 06/04/25 8:47 PM Result Value Ref Range POC-GLUCOSE 109 70 - 110 mg/dL Electric Organ Checker [id number] ECG 12 lead Status: None (In process) Collection Time: 06/05/25 3:09 AM Result Value Ref Range SYSTOLIC BLOOD PRESSURE (MCT) 160 mmHg DIASTOLIC BLOOD PRESSURE (MCT) 66 mmHg VENTRICULAR RATE EKG/MIN 70 BPM ATRIAL RATE (MCT) 67 BPM QRS-INTERVAL (MSEC) 132 ms QT Interval 398 ms QTC Interval 429 ms R AXIS (MCT) 36 degrees T Wave [place] 53 degrees [place] Diagnosis Atrial fibrillation Right bundle branch block Anterior infarct , age undetermined Abnormal ECG When compared with ECG of 04-JUN-2025 19:49, Atrial fibrillation has replaced Sinus rhythm Anterior infarct is now present Basic Metabolic Panel Status: Abnormal Collection Time: 06/05/25 4:48 AM Result Value Ref Range Sodium 146 (H) 136 - 145 meq/L Potassium 4.6 3.4 - 5.1 meq/L CO2 30 (H) 22 - 29 meq/L Chloride 101 98 - 112 meq/L Glucose 105 82 - 115 mg/dL BUN 72.3 (H) 9.8 - 20.1 mg/dL Creatinine 4.79 (H) 0.57 - 1.11 mg/dL BUN/Creatinine 15 8 - 20 Calcium 8.7 8.4 - 10.2 mg/dL Anion Gap 20 (H) 4 - 12 eGFR (mL/min/1.73m2) 8 (L) >=60 mL/min/1.73m2 Osmolality Calc 312.2 mOsm/kg CBC with automated diff Status: Abnormal Collection Time: 06/05/25 4:48 AM Result Value Ref Range WBC 5.4 4.0 - 10.0 K/??L RBC 3.43 (L) 3.93 - 5.22 M/??L Hemoglobin 9.6 (L) 11.2 - 15.7 GM/DL Hematocrit 31.0 (L) 34.1 - 44.9 % MCV 90 79 - 95 fL MCH 28.0 25.6 - 32.2 pg MCHC 31.0 (L) 32.2 - 35.5 GM/DL RDW 17.2 (H) 11.7 - 14.4 % Platelets 87 (L) 140 - 375 K/CU MM MPV 11.5 9.4 - 12.3 fL % Neutros 78 (H) 34 - 71 % % Lymphs 10 (L) 19 - 52 % % Monos 10 5 - 13 % % Eos 0 (L) 1 - 6 % % Baso 0 0 - 1 % NRBC Absolute <0.01 0 - 0.012 K/ul # Neutros 4.22 1.56 - 6.13 K/??L # Lymphs 0.51 (L) 1.18 - 3.74 K/??L # Monos 0.51 0.24 - 0.86 K/??L # Eos <0.03 (L) 0.04 - 0.36 K/ L # Baso <0.03 0.01 - 0.08 K/ L Immature Granulocytes-Relative 2.40 (H) 0.01 - 0.43 % # IG 0.13 (H) 0.00 - 0.03 K/uL Glucose, Nova Meter Status: None Collection Time: 06/05/25 6:10 AM Result Value Ref Range POC-GLUCOSE 97 70 - 110 mg/dL Electric Organ Checker [id number] Radiology Radiology Results (last day) Procedure Component Value Units Date/Time XR KUB PORTABLE [[id number]] Collected: 06/04/25 1525 Order Status: Completed Updated: 06/04/25 153 Narrative: KUB 06/04/2025 2:50 PM HISTORY: Feeding tube placement. COMPARISON: None. FINDINGS: A single view of the abdomen was performed. The feeding tube is identified below the diaphragm at the junction of the second and third portions of duodenum. There is a nonspecific, nonobstructive bowel gas pattern. Impression: Corpak feeding tube tip terminates in the second and third portions of duodenum. Images reviewed, interpreted, and dictated by Dr. Matt Lund. Transcribed by Marzena Menendez PA-C. Ultrasound renal limited [[id number]] Collected: 06/04/25 1435 Order Status: Completed Updated: 06/04/25 1447 Narrative: RENAL ULTRASOUND HISTORY: Acute kidney injury. PROCEDURE: Ultrasound images of the kidneys were obtained. FINDINGS: Limited images of the liver parenchyma demonstrate normal echogenicity . There are gallstones within the gallbladder. The right kidney measures 10 cm in length. It is normal echogenicity . There is no hydronephrosis . The left kidney measures 11 cm in length. It is normal echogenicity . There is no hydronephrosis . Impression: Normal renal ultrasound . Images reviewed, interpreted, and dictated by Dr. Marisela Luther. Transcribed by Maryam Duran PA-C. XR chest AP portable [[id number]] Collected: 06/04/25 1000 Order Status: Completed Updated: 06/04/25 1004 Narrative: PORTABLE CHEST 06/04/2025 9:06 AM HISTORY: Acute shortness of breath COMPARISON: 6 hours prior FINDINGS: The heart is mildly enlarged. The mediastinum is unremarkable. Lungs are underinflated with chronic changes throughout both lungs. There is bibasilar atelectasis. There is no pneumothorax. The osseous structures are unremarkable. Impression: No acute cardiopulmonary process. Images reviewed, interpreted, and dictated by Dr. Matt Lund. Transcribed by Marzena Menendez PA-C. Microbiology: Microbiology Results (last 7 days) Procedure Component Value Units Date/Time Respiratory Panel [[id number]] (Normal) Collected: 06/04/25 1323 Order Status: Completed Specimen: Nasopharyngeal Swab Updated: 06/04/25 1527 ADENOVIRUS Not detected CORONAVIRUS 229E Not detected CORONAVIRUS HKU1 Not detected CORONAVIRUS NL63 Not detected CORONAVIRUS OC43 Not detected SARS-COV2/RT-PCR Not Detected HUMAN METAPNEUMOVIRUS Not detected HUMAN RHINOVIRUS/ENTEROVIRUS Not detected INFLUENZA A Not detected INFLUENZA B Not detected PARAINFLUENZA VIRUS 1 Not detected PARAINFLUENZA VIRUS 2 Not detected PARAINFLUENZA VIRUS 3 Not detected PARAINFLUENZA VIRUS 4 Not detected RESPIRATORY SYNCYTIAL VIRUS Not detected BORDETELLA PARAPERTUSSIS Not detected BORDETELLA PERTUSSIS Not detected CHLAMYDIA PNEUMONIAE Not detected MYCOPLASMA PNEUMONIAE Not detected Narrative: Testing was performed with RT-PCR methodology using the [employer] Respiratory Panel 2.1 which has FDADe Jacquie approval for SARS-CoV-2 testing. Negative results do not preclude infection with the SARS-CoV-2 virus and should not be used as the sole basis of patient treatment or public health decisions.Negative results must be considered in the context of an individual's recent exposures, history, and presence of clinical signs/symptoms. Follow-up testing should be performed according to the current CDC recommendations. Other viruses and bacteria not targeted by this PCR panel cannot be excluded; therefore clinical correlation and follow up of serology, culture results, and other molecular studies is required. The results are not intended to be used as the sole means for clinical diagnosis or patient management decisions. This sample was tested at the [facility] using the [employer] Respiratory Panel. It is FDA cleared and has been verified and approved by the [facility] for clinical use on nasopharyngeal swab specimens. The performance of the FilmArray RP has not been established in individuals who received influenza vaccine. Recent administration of a nasal influenza vaccine may cause false positive results for Influenza A and/or Influenza B. MRSA Screen [[id number]] (Normal) Collected: 06/04/25 1323 Order Status: Completed Specimen: Nasal from Nares Updated: 06/04/25 1527 MRSA by PCR [facility] MRSA Not Detected by PCR Pneumonia PCR Panel w/Respiratory Culture [[id number]] Order Status: Sent Specimen: Sputum from Expectorated Narrative: The following orders were created for panel order Pneumonia PCR Panel w/Respiratory Culture. Procedure Abnormality Status --------- ------ Pneumonia PCR Panel[[id number]] Respiratory Culture[[id number]] Please view results for these tests on the individual orders. Pneumonia PCR Panel [[id number]] Order Status: Sent Specimen: Sputum from Expectorated Respiratory Culture [[id number]] Order Status: Sent Specimen: Sputum from Expectorated Strep pneumoniae urine antigen [[id number]] (Normal) Collected: 06/03/25 2350 Order Status: Completed Specimen: Urine, Unspecified Source Updated: 06/04/25 0012 Strep pneumoniae Antigen Presumptive negative for pneumococcal pneumonia - see comment Narrative: A presumptive negative result suggests no current or recent pneumococcal infection. Infection due to S. pneumoniae cannot be ruled out since the antigen present in the specimen may be below the detection limit of the test. Echo 06/04/25 Normal sized left ventricle. Mild left ventricular hypertrophy. Visually estimated ejection fraction 55% +/- 5%. Normal left ventricular systolic function with normal systolic strain pattern. Normal left ventricular diastolic function. Normal right ventricular size and function. No hemodynamically significant valvular heart disease. Impression: Neuro: Acute metabolic/uremic encephalopathy Ground level fall Degenerative cervical spine disease T12 compression fracture Pulmonary Acute/chronic hypoxic respiratory failure 8 L nasal cannula Bilateral lower lobe pneumonia Mild pulmonary vascular congestion CXR Former smoker possible COPD Cardiovascular History of hypertension Echo EF 55%, normal LV function, mild LVH Infectious disease Right lung pneumonia possible CAP Renal: Acute hyperkalemia-resolved Acute metabolic acidosis-resolved Acute kidney injury/CKD Hematology: Chronic anemia Chronic thrombocytopenia Endocrinology Type 2 diabetes mellitus Plan: Neuro: Acute encephalopathy in setting of worsening renal failure hyperkalemia cannot rule out underlying pneumonia. Patient protecting airway on nasal cannula Head CT outside facility: Reported to be negative for acute finding. CT cervical spine degenerative changes with central canal narrowing, moderate compression T12 fracture. Recommend evaluation by neurosurgery . Pulmonary acute on chronic hypoxic respiratory failure nasal cannula right lung infiltrate on chestx-ray possible community-acquired pneumonia Started on Azactam/doxycycline CAT scan of the chest: Bilateral lower lobe pneumonia 4 L nasal cannula, Respiratory viral panel: Negative MRSA screen negative Streptococcus pneumonia antigen negative Pneumonia PCR pending Pulmicort/DuoNebs. Cardiovascular: Hemodynamically stable. Underlying heart failure with EF, proBNP/echo normal EF, mild LVH Infectious: CBC no leukocytosis, Pro-Erasmo level, chest x-ray lung infiltrate on the right, empirically started on IV Azactam doxycycline, pneumonia workup so far negative, repeat CAT scan of the chest Renal: RICHIE/CKD, sodium unremarkable, hyperkalemia treated with hyperkalemia cocktail, magnesium replaced Nephrology consulted, ultrasound kidney normal renal ultrasound Mild metabolic acidosis improving. Discontinue bicarb drip Patient making urine. Continue monitoring creatinine trend electrolyte GI/nutrition: Dysphagia, possible aspiration, speech, Corpak tube feeding LFT unremarkable, bilirubin unremarkable, bowel regimen Hematology: CBC no leukocytosis, H&H stable, thrombocytopenia chronic, mild anemia chronic. Prophylaxis: Subcu heparin/Pepcid CODE STATUS full Prognosis: Guarded/poor Dispo: ICU Case discussed during round. I have personally evaluated the patient and performed a [id number] diagnostic evaluation on this patient; I have reviewed history, performed physical examination, reviewed laboratory studies. , andreviewed images independent of radiologist. I have actively directed the medical care, formulated assessemnt and plan of care. Patient requires a high complexity of decision making for assessment. 55 minutes critical care time was spent. Voice management trainee technology (H[employer]) is used for dictation of this note and sound-alike words might be erroneously placed despite reviewing the note for accuracy.Errors in dictation may reflect use of voice recognition software and not all errors in management trainee may have been detectedprior to signing * Dayday Schwartz, PT - 06/04/2025 2:40 PM EDT Images from the original note were not included. Inpatient Physical Therapy Attempt to Treat Patient Name: Kirstie Nascimento Birthday: 1940 Date of Attempt: 06/04/2025 Attempted to see patient this afternoon. On first attempt pt receiving bedside ultrasound. On 2nd attempt pt having corpak placed. Discussed with nurse who reported pt was very weak and unsure how much she would be able to participate in evaluation. PT will continue to follow. 10 minutes spent for nursing collaboration, thorough chart and systems review, and clinical reasoning in direct relation to patient care. 1 zero charges dropped to account for therapist's time. Electronically signed by Dayday Schwartz, PT - 06/04/2025 - 2:40 PM EDT * CARLOS Melendez/Aditya - 06/04/2025 2:00 PM EDT Images from the original note were not included. [facility] Inpatient Occupational Therapy Attempt to Treat Patient Name: Kirstie Nascimento Birthday: 1940 Date of Attempt: 06/04/2025 Attempted to see patient this afternoon. On first attempt pt receiving bedside ultrasound. On 2nd attempt pt having corpak placed. Discussed with nurse who reported pt was very weak and unsure how much she would be able to participate in evaluation. OT will continue to follow.10 minutes spent for nursing collaboration, thorough chart and systems review, and clinical reasoning in direct relation to patient care. 1 zero charges dropped to account for therapist's time. Electronically signed by Rosmery Gill OTR/L - 06/04/2025 - 3:01 PM EDT * Jb Turner MD - 06/04/2025 12:22 PM EDT HOSPITALIST PROGRESS NOTE Patient: Kirstie Nascimento Date: 06/04/2025 Subjective Date of Service: 06/04/2025 Patient seen and examined at bedside this AM. In ICU. Lethargic and sleepy this morning. Requiring 6 L nasal cannula. No family at the bedside Objective Vitals: Temp: [98.4 ??F (36.9 ??C)] 98.4 ??F (36.9 ??C) Pulse: [48-80] 50 Resp: [11-53] 53 BP: (89-155)/(50-66) 144/66 Intake/Output: Intake/Output Summary (Last 24 hours) at 06/04/2025 1222 Last data filed at 06/04/2025 0400 Gross per 24 hour Intake 377.08 ml Output 300 ml Net 77.08 ml Physical exam: General: Drowsy and lethargic, no acute distress Neurologic: no apparent focal deficits Eye: normal conjunctiva HENT: Normocephalic, atraumatic Neck: no JVD Lungs: Poor air entry bilaterally Heart: Normal rate, regular rhythm Abdomen: nondistended Musculoskeletal: Normal range of motion and strength, no tenderness or swelling Skin: Skin is warm, dry, no rashes or lesions Labs: Results for orders placed or performed during the hospital encounter of 06/03/25 (from the past 24 hours) CBC with automated diff Status: Abnormal Collection Time: 06/03/25 11:42 PM Result Value Ref Range WBC 5.4 4.0 - 10.0 K/??L RBC 3.53 (L) 3.93 - 5.22 M/??L Hemoglobin 10.1 (L) 11.2 - 15.7 GM/DL Hematocrit 33.5 (L) 34.1 - 44.9 % MCV 95 79 - 95 fL MCH 28.6 25.6 - 32.2 pg MCHC 30.1 (L) 32.2 - 35.5 GM/DL RDW 17.3 (H) 11.7 - 14.4 % Platelets 84 (L) 140 - 375 K/CU MM MPV 11.4 9.4 - 12.3 fL % Neutros 65 34 - 71 % % Lymphs 16 (L) 19 - 52 % % Monos 11 5 - 13 % % Eos 2 1 - 6 % % Baso 1 0 - 1 % NRBC Absolute <0.01 0 - 0.012 K/ul # Neutros 3.55 1.56 - 6.13 K/??L # Lymphs 0.88 (L) 1.18 - 3.74 K/??L # Monos 0.59 0.24 - 0.86 K/??L # Eos 0.13 0.04 - 0.36 K/??L # Baso 0.03 0.01 - 0.08 K/??L Immature Granulocytes-Relative 4.60 (H) 0.01 - 0.43 % # IG 0.25 (H) 0.00 - 0.03 K/uL Lactic Acid with reflex (SJ) Status: Abnormal Collection Time: 06/03/25 11:42 PM Result Value Ref Range Lactic Acid Level (mmol/L) 2.4 (HH) 0.5 - 2.2 mmol/L CBC Scan Status: Abnormal Collection Time: 06/03/25 11:42 PM Result Value Ref Range Platelet Estimate Decreased (A) Adequate RBC Morphology Normal Normal Basic Metabolic Panel Status: Abnormal Collection Time: 06/03/25 11:43 PM Result Value Ref Range Sodium 141 136 - 145 meq/L Potassium 6.1 (HH) 3.4 - 5.1 meq/L CO2 16 (L) 22 - 29 meq/L Chloride 109 98 - 112 meq/L Glucose 85 82 - 115 mg/dL BUN 82.5 (H) 9.8 - 20.1 mg/dL Creatinine 5.62 (H) 0.57 - 1.11 mg/dL BUN/Creatinine 15 8 - 20 Calcium 8.9 8.4 - 10.2 mg/dL Anion Gap 22 (H) 4 - 12 eGFR (mL/min/1.73m2) 7 (L) >=60 mL/min/1.73m2 Osmolality Calc 305.4 mOsm/kg Magnesium Status: Abnormal Collection Time: 06/03/25 11:43 PM Result Value Ref Range Magnesium 1.3 (L) 1.6 - 2.6 mg/dL Phosphorus Status: Normal Collection Time: 06/03/25 11:43 PM Result Value Ref Range Phosphorus 4.4 2.5 - 4.5 mg/dL Creatine Kinase (CK) Status: Normal Collection Time: 06/03/25 11:43 PM Result Value Ref Range Total CK 62 29 - 168 U/L Sodium, random urine Status: None Collection Time: 06/03/25 11:50 PM Result Value Ref Range Sodium Urine 109 See Comment meq/L Protein, random urine Status: Abnormal Collection Time: 06/03/25 11:50 PM Result Value Ref Range Protein, Urine 15 (H) 1 - 14 mg/dL Creatinine, random urine Status: Abnormal Collection Time: 06/03/25 11:50 PM Result Value Ref Range Creatinine, Ur 39.00 (L) 47.00 - 110.00 mg/dL Strep pneumoniae urine antigen Status: Normal Collection Time: 06/03/25 11:50 PM Specimen: Urine, Unspecified Source Result Value Ref Range Strep pneumoniae Antigen Presumptive negative for pneumococcal pneumonia- see comment Presumptive negative for pneumococcal pneumonia - see comment Legionella antigen, urine Status: Normal Collection Time: 06/03/25 11:50 PM Result Value Ref Range Legionella Urine Antigen Presumptive negative for L. pneumophila serogroup 1 antigen in urine- see comment Presumptive negative for L. pneumophila serogroup 1 antigen in urine- see comment Urea Nitrogen, random urine Status: None Collection Time: 06/03/25 11:50 PM Result Value Ref Range Urea Nitrogen, Ur 328 mg/dL Chloride, random urine Status: None Collection Time: 06/03/25 11:50 PM Result Value Ref Range ChlorideUr 109 See Comment mmol/L CBC with automated diff Status: Abnormal Collection Time: 06/04/25 4:41 AM Result Value Ref Range WBC 7.8 4.0 - 10.0 K/??L RBC 3.88 (L) 3.93 - 5.22 M/??L Hemoglobin 11.1 (L) 11.2 - 15.7 GM/DL Hematocrit 36.4 34.1 - 44.9 % MCV 94 79 - 95 fL MCH 28.6 25.6 - 32.2 pg MCHC 30.5 (L) 32.2 - 35.5 GM/DL RDW 17.4 (H) 11.7 - 14.4 % Platelets 83 (L) 140 - 375 K/CU MM MPV 11.5 9.4 - 12.3 fL % Neutros 88 (H) 34 - 71 % % Lymphs 5 (L) 19 - 52 % % Monos 4 (L) 5 - 13 % % Eos 0 (L) 1 - 6 % % Baso 1 0 - 1 % NRBC Absolute <0.01 0 - 0.012 K/ul # Neutros 6.81 (H) 1.56 - 6.13 K/??L # Lymphs 0.37 (L) 1.18 - 3.74 K/??L # Monos 0.28 0.24 - 0.86 K/??L # Eos 0.03 (L) 0.04 - 0.36 K/??L # Baso 0.04 0.01 - 0.08 K/??L Immature Granulocytes-Relative 3.10 (H) 0.01 - 0.43 % # IG 0.24 (H) 0.00 - 0.03 K/uL Comprehensive metabolic panel Status: Abnormal Collection Time: 06/04/25 5:02 AM Result Value Ref Range Sodium 145 136 - 145 meq/L Potassium 6.5 (HH) 3.4 - 5.1 meq/L Chloride 110 98 - 112 meq/L CO2 17 (L) 22 - 29 meq/L Calcium 8.7 8.4 - 10.2 mg/dL Glucose 116 (H) 82 - 115 mg/dL BUN 79.5 (H) 9.8 - 20.1 mg/dL Creatinine 5.35 (H) 0.57 - 1.11 mg/dL BUN/Creatinine 15 8 - 20 eGFR (mL/min/1.73m2) 7 (L) >=60 mL/min/1.73m2 Albumin 2.5 (L) 3.5 - 5.0 g/dL Alkaline Phosphatase 63 40 - 150 U/L ALT 10 <=34 U/L AST 36 (H) 11 - 34 U/L Total Bilirubin 0.5 0.2 - 1.2 mg/dL Protein, Total 6.3 (L) 6.4 - 8.3 g/dL Globulin 3.8 2.5 - 4.1 g/dL Anion Gap 25 (H) 4 - 12 A/G Ratio 0.7 0.7 - 1.9 Osmolality Calc 313.5 mOsm/kg Iron and TIBC Status: Abnormal Collection Time: 06/04/25 5:02 AM Result Value Ref Range Iron 101 50 - 170 ug/dL TIBC 244 (L) 250 - 435 ug/dL % Saturation 41 % UIBC 143 Ferritin Status: Normal Collection Time: 06/04/25 5:02 AM Result Value Ref Range Ferritin 162.66 4.63 - 204.00 ng/mL Vitamin B12 Status: Abnormal Collection Time: 06/04/25 5:02 AM Result Value Ref Range Vitamin B12 >2,000 (H) 213 - 816 pg/mL Magnesium Status: Abnormal Collection Time: 06/04/25 5:02 AM Result Value Ref Range Magnesium 3.2 (H) 1.6 - 2.6 mg/dL Lactate dehydrogenase (LDH) Status: Abnormal Collection Time: 06/04/25 5:02 AM Result Value Ref Range LDH 431 (H) 125 - 220 U/L Procalcitonin Status: Normal Collection Time: 06/04/25 5:02 AM Result Value Ref Range Procalcitonin 0.23 See Comment ng/mL PROBNP Status: Abnormal Collection Time: 06/04/25 5:02 AM Result Value Ref Range ProBNP (pg/mL) 5,625 (H) 16 - 956 pg/mL Glucose, Nova Meter Status: Abnormal Collection Time: 06/04/25 5:56 AM Result Value Ref Range POC-GLUCOSE 133 (H) 70 - 110 mg/dL Electric Organ Checker [id number] ECG 12 lead Status: None (In process) Collection Time: 06/04/25 7:16 AM Result Value Ref Range SYSTOLIC BLOOD PRESSURE (MCT) 112 mmHg DIASTOLIC BLOOD PRESSURE (MCT) 53 mmHg VENTRICULAR RATE EKG/MIN 65 BPM ATRIAL RATE (MCT) 65 BPM GA Interval 240 ms QRS-INTERVAL (MSEC) 128 ms QT Interval 420 ms QTC Interval 436 ms P [place] 25 degrees R AXIS (MCT) 20 degrees T Wave [place] 49 degrees [place] Diagnosis Sinus rhythm with 1st degree AV block Right bundle branch block Septal infarct , age undetermined Abnormal ECG No previous ECGs available Renal Function Panel Status: Abnormal Collection Time: 06/04/25 10:58 AM Result Value Ref Range Glucose 183 (H) 82 - 115 mg/dL BUN 81.4 (H) 9.8 - 20.1 mg/dL Creatinine 5.35 (H) 0.57 - 1.11 mg/dL BUN/Creatinine 15 8 - 20 eGFR (mL/min/1.73m2) 7 (L) >=60 mL/min/1.73m2 Sodium 142 136 - 145 meq/L Potassium 6.0 (HH) 3.4 - 5.1 meq/L Chloride 103 98 - 112 meq/L CO2 23 22 - 29 meq/L Anion Gap 22 (H) 4 - 12 Calcium 9.5 8.4 - 10.2 mg/dL Albumin 2.6 (L) 3.5 - 5.0 g/dL Phosphorus 5.1 (H) 2.5 - 4.5 mg/dL Osmolality Calc 312.4 mOsm/kg Glucose, Nova Meter Status: Abnormal Collection Time: 06/04/25 11:37 AM Result Value Ref Range POC-GLUCOSE 158 (H) 70 - 110 mg/dL Electric Organ Checker [id number] Radiology: Radiology Results (last 3 days) Procedure Component Value Units Date/Time XR chest AP portable [[id number]] Collected: 06/04/25 1000 Order Status: Completed Updated: 06/04/25 1004 Narrative: PORTABLE CHEST 06/04/2025 9:06 AM HISTORY: Acute shortness of breath COMPARISON: 6 hours prior FINDINGS: The heart is mildly enlarged. The mediastinum is unremarkable. Lungs are underinflated with chronic changes throughout both lungs. There is bibasilar atelectasis. There is no pneumothorax. The osseous structures are unremarkable. Impression: No acute cardiopulmonary process. Images reviewed, interpreted, and dictated by Dr. Matt Lund. Transcribed by Marzena Menendez PA-C. XR chest AP portable [[id number]] Collected: 06/04/25 07 Order Status: Completed Updated: 06/04/25 0740 Narrative: PORTABLE CHEST 06/04/2025 1:44 AM HISTORY: Acute shortness of breath. COMPARISON: May 18, 2020. FINDINGS: The heart is normal in size . The mediastinum is unremarkable . Lungs are underinflated with mild chronic changes in the bases. There is no pneumothorax . Impression: No acute cardiopulmonary process . Images reviewed, interpreted, and dictated by Dr. Matt Lund. Transcribed by Pal Cosby PA-C Medications: Scheduled Meds: aztreonam 500 mg intravenous Q12H budesonide 0.5 mg nebulization 2 times daily 0.5 mg at 06/04/25 0833 doxycycline 100 mg intravenous Q12H famotidine 20 mg oral Daily heparin 5,000 Units subcutaneous Q8H insulin lispro 0-6 Units subcutaneous 4x Daily AC ipratropium-albuteroL 3 mL nebulization 2 times daily 3 mL at 06/04/25 0833 polyethylene glycol 3350 17 g oral Daily Saccharomyces boulardii 250 mg oral BID sodium polystyrene sulf-sorbtL 60 g oral Once sodium polystyrene sulf-sorbtL 60 g other - see admin instructions/comments Once sodium zirconium cyclosilicate 10 g oral Once Continuous Infusions: Current Facility-Administered Medications Medication Dose Route Frequency Provider Last Rate Last Admin acetaminophen (TYLENOL) tablet 650 mg 650 mg oral Q6H PRN Sima Mancia MD aztreonam (AZACTAM) 500 mg in sodium chloride 0.9 % (NS) 100 mL IVPB 500 mg intravenous Q12H MD Cherelle budesonide (PULMICORT) nebulizer suspension 0.5 mg 0.5 mg nebulization 2 times daily Sima Mancia MD 0.5 mg at 06/04/25 0833 dextrose 50% (D50W) injection 25 g 25 g intravenous Q15 Min PRN Sima Mancia MD doxycycline (VIBRAMYCIN) 100 mg in sodium chloride 0.9 % (NS) MADELEINE IVPB 100 mg intravenous Q12H Octavio Odell MD famotidine (PEPCID) tablet 20 mg 20 mg oral Daily Sima Mancia MD glucagon injection 1 mg 1 mg intraMUSCULAR Q15 Min PRN Sima Mancia MD glucose chew tab 16 g 16 g oral Q15 Min PRN Sima Mancia MD heparin injection 5,000 Units 5,000 Units subcutaneous Q8H Octavio Odell MD hydrALAZINE (APRESOLINE) injection 10 mg 10 mg intravenous Q6H PRN Sima Mancia MD insulin lispro (HUMALOG, ADMELOG) injection 0-6 Units 0-6 Units subcutaneous 4x Daily AC Sima Mancia MD ipratropium-albuteroL (DUO-NEB) 0.5 mg-3 mg(2.5 mg base)/3 mL nebulizer solution 3 mL 3 mL nebulization 2 times daily Sima Mancia MD 3 mL at 06/04/25 0833 ondansetron (ZOFRAN) injection 4 mg 4 mg intravenous Q6H PRN Sima Mancia MD polyethylene glycol (GLYCOLAX) packet 17 g 17 g oral Daily PRN Sima Mancia MD polyethylene glycol (GLYCOLAX) packet 17 g 17 g oral Daily Octavio Odell MD Saccharomyces boulardii (FLORASTOR) capsule 250 mg 250 mg oral BID Sima Mancia MD sennosides-docusate sodium (SENOKOT S) 8.6-50 mg tablet 1 tablet 1 tablet oral BID PRN Sima Mancia MD sodium bicarbonate 150 mEq in sterile water 1,150 mL infusion 150 mEq intravenous Continuous Sima Mancia MD 100 mL/hr at 06/04/25 0702 150 mEq at 06/04/25 0702 sodium polystyrene sulf-sorbtL 15-20 gram/60 mL suspension 60 g 60 g oral Once Holger Mishra MD sodium polystyrene sulf-sorbtL 15-20 gram/60 mL suspension 60 g 60 g other - see admin instructions/comments Once Holger Mishra MD sodium zirconium cyclosilicate (LOKELMA) packet 10 g 10 g oral Once Sima Mancia MD PRN Meds: @[email or web address]@ Medications Discontinued During This Encounter Medication Reason doxycycline (MONODOX) capsule 100 mg cefTRIAXone (ROCEPHIN) 1 g in sodium chloride 0.9 % (NS) 50 mL MADELEINE IVPB piperacillin-tazobactam (ZOSYN) 2.25 g in sodium chloride 0.9 % (NS) MBP 50 mL IVPB sodium chloride 0.9 % infusion guaiFENesin (mucINEX) 12 hr tablet 600 mg sodium bicarbonate 150 mEq in sterile water 1,150 mL infusion aztreonam (AZACTAM) 1 g in sodium chloride 0.9 % (NS) MBP IVPB doxycycline (VIBRAMYCIN) capsule 100 mg Assessment and Plan Acute on chronic renal failure stage III with metabolic acidosis and hyperkalemia -Likely prerenal due to volume depletion -Baseline Cr unknown -At home is on irbesartan -Urine studies ordered -Renal US pending -Continue sodium bicarbonate drip -Nephro consulted Hyperkalemia -Due to renal failure -K+ at [facility] 7.2 -->6.1--> 6.0 -Hyperkalemia protocol at [facility] -[facility] ordered -Continue sodium bicarbonate drip -Monitor closely. -Nephrology following Acute on Chronic Hypoxic Respiratory Failure due to PNA Asthma -At baseline on 2L NC, currently on 3L NC -Imaging at [facility] showed patchy infiltrate R mid to lower lung -Urine strep and legionella - Neg -Speech swallow eval -DuoNebs BID -Has allergy to Ceftriaxone did get on admission and received solumedrol and benadryl, currently onAztreonam and Dox Acute Metabolic Encephalopathy -Likely due to renal failure -Pt was confused at nursing facility -CT Head showed no acute abnormality -Speech evaluation -May need Corpak and start tube feeding Fall -CT C-Spine showed degenerative changes C3-4, C6-7, central canal narrowing C4- C5, C5-C6 -CT T-Spine showed showed stable moderate compression T12 -PT/OT Lactic Acidosis -Likely multifactorial volume depletion and hypoxia -Lactic acid 2.4 -Monitor Hypomagnesemia -Replace and monitor Anemia -Hgb currently 10 -Will check iron studies -Monitor Thrombocytopenia -Plt 84K -Will check B12 -Monitor HTN -Hold Irbesartan -IV Hydralazine PRN DM 2, Neuropathy -SSI -Have not restarted Lyrica at this time DVT: SCD's at this time Diet: Orders Placed This Encounter Procedures Level 6 Soft and Bite Sized Dysphagia diet Additional Modifiers: Consistent Carbohydrate, Low Potassium; Carbohydrate: 5 Carbohydrate (5 CHO, 75g per meal) Code Status: Current Code Status Full Code Discharge Planning: Acute on chronic renal failure with hyperkalemia and metabolic acidosis. Continue ICU management. Discharge date unable to determine. Signed: Jb Turner MD 06/04/2025, 12:22 PM * APOLINAR Al - 06/04/2025 8:29 AM Herminio SCHMID Initial Assessment 06/04/25 0819 Home Environment Type of Residence [facility] Living Arrangements Other (Comment) (SNF) Support Systems Home care staff;Family members Home Caregiver SNF caregivers Accessibilty Issues None Agency Type SNF SNF Name and Number [facility] Patient returning to prior living situation? Yes Adherence Patient has moderate rate of compliance with treatment. Motivation Patient has moderate desire for learning/change. Affect Behavior Confused Prior/Regular Transportation Other (Comment) (Ambulance) Needs Assistance with Transportation Yes ADL Assessment Current Sensory Deficits Cognitive Deficit Patient's Vision Adequate to Safely Complete Daily Activities 1 Patient's Judgement Adequate to Safely Complete Daily Activities 2 Dressing Independent Current Home Care Services Physical Therapy;Speech Therapy;Wound/Ostomy Care (Comment) Assistive Devices Walker;Oxygen;Commode;Other (Comment) (Hospital bed) Special/Community Services None Transition Needs Home or Post Acute Services Post acute facilities (Rehab/SNF/etc) Type of Post Acute Facility Services [facility] Does the patient have the ability to fill and receive their discharge medications? Yes Discharge Plan Discussed The discharge plan was discussed with patient or patient vendor representatives. Discharge Plan Outcome Patient/family vendor representatives agrees with the discharge plan Discharge Barriers Medication(s);Test(s) Pending Type of Assistive Devices Needed for Discharge None Patient Discharge Goal [facility] Facility Mandated Reporting Not applicable Care Coordination Initial Assessment Home Environment Type of Residence: [facility] Living Arrangements: Other (Comment) (SNF) Support System: Home care staff, Family members Home Caregiver: SNF caregivers Accessibility Issues: None Current Agency Name & Number: Agency Type: [facility] SNF Name and Number: [facility] Patient returning to prior living situation? Yes Compliance: Patient has moderate rate of compliance with treatment. Motivation: Patient has moderate desire for learning/change. Affect/Behavior: Confused Prior/Regular Transportation: Other (Comment) (Ambulance) Current Transportation Agency Information: Needs assistance with transportation:Yes ADL Screen Current Sensory Deficits: Cognitive Deficit Patient's Vision Adequate to Safely complete ADLs:Yes Patient's Judgement Adequate to safely completed ADLs: No Dressing: Independent Current Home Care Services: Current Home Care Services: Physical Therapy, Speech Therapy, Wound/Ostomy Care (Comment) Assistive DevicesYes Patient's Judgement Adequate to Safely Complete Daily Activities: No Dressing: Independent Current Lines, Tubes: Special/Community Services: (P) None Transition Needs Expected Discharge Date: Home or Post Acute Services Needed: (P) Post acute facilities (Rehab/SNF/etc) Does the patient have the ability to fill and receive their discharge medications: (P) Yes Discharge plan discussed: (P) The discharge plan was discussed with patient or patient vendor representatives. Discharge Barriers: (P) Medication(s), Test(s) Pending Type of Assistive Devices Needed for Discharge: (P) None Patient Discharge Goal: (P) [facility] Facility Mandated Reporting: (P) Not applicable PT/OT/BETTING CLERKS Recommendations PT Recommendations: OT Recommendations: BETTING CLERKS Recommendations: Pt has a readmission risk score of 12%. Pt is day 1 of undetermined GMLOS so expected DC date is TBD. Pt is from [facility] [place], [place]. CM has touched base w/ Angelica of [facility] to notify her of admission & to see if she can help get POA/guardianship or family member contact info. Pt is a group home resident at [facility] & can return if medically appropriate. Pt will require ambulance transport. Pt is currently on 8 LNC O2 via oxy mask. DC plan is to return to [facility] for now. Barrier: medical readiness, LNOK for decision making, ambulance transportation. CM will continue to follow. Update: Pt's niece is listed as POA (Mia [facility]). Pt listed a secondary POA Minerva Broussard, but we have no contact info for her at this time. Mia is to visit today & we will solicit a number for Minerva from her. CM updated Face Sheet & provided copy of the document to Chaplain Aquino. APOLINAR Al, CASING WRINGER OPERATOR * Melony Acevedo [facility]ETTING [facility]ER[facility] - 06/04/2025 8:06 AM EDT Images from the original note were not included. [facility] Speech Language Pathology Clinical Swallow Evaluation Initial evaluation Therapy Diagnosis: Slow oral skills and seemingly functional pharyngeal swallow Recommendations: Soft solids and thin liquids, meds as able Patient Name: Kirstie Nascimento Birthday: 1940 Age: 84 y.o. Today: 06/04/2025 Time: [id number] includes time spent for nursing collaboration, chart and systems review, and clinical reasoning. Mental status:Alert and Cooperative Pain: [address] Faces History Additional History: 84-year-old female who presented to an outlying facility from the longterm for AMS. Patient has a past medical history including type 2 diabetes mellitus, chronic hypoxemic respiratory failure, chronic kidney disease, BRIDGETTE, hyperlipidemia, depression, GERD. Her mental status has deteriorated over the past couple of days with on and off confusion. Speech and Dysphagia History: NA Intubation History:NA Patient Active Problem List Diagnosis Acute renal failure (ARF) ([facility]) Past Medical History: Diagnosis Date Asthma Chronic kidney disease Emphysema lung (HCC) History of degenerative disc disease Hypertension Lumbar radiculopathy No past surgical history on file. Diet prior to admission:regular Current diet: Consistent Carbohydrate Additional Modifiers: Low Potassium; Carbohydrate: 5 Carbohydrate (5 CHO, 75g per meal) Subjective RN okayed session Objective Respiratory Status: nasal cannula Oral Mechanism Exam: intact Dentition :Limited Dentition and Poor Condition Oral hygiene: WFL Secretion Management: functional Vocal Quality: adequate Cough: - Volitional :strong - Reflexive : Did not observe Oral Care Completed: yes Oral Feeding Trials: Positioning: upright at 90' Feeding assistance: max assistance Consistencies Administered:ice chips, thin, puree/pudding, and solids Reading Swallow Test: Patient failed the 3 oz water challenge which has high sensitivity in detecting aspiration (>95%). When this is failed an objective swallow study (MBS or FEES) is indicated to further evaluate swallow function and verify safest means of nutrition.-patient unable to consecutivesips of liquids The three ounce water test -- or Sofie Swallow Protocol -- is a test that identifies patients who may be aspirating. Patients are instructed to drink three ounces of room temperature water consecutively until the cup is empty. This test has high sensitivity/specificity at identifying aspiration, per current research. (Sarah Schmidt. & Kenisha Lezama., 2014) Assessment Cognitive/Communication Status: Able to follow commands for evaluation Summary: Patient seen for clinical swallow evaluation. Patient presents with seemingly functional oropharyngeal swallow skills. Oral phase decreased with dry solids with lingual residue post swallow.Functional with puree and soft solid trials. No overt pharyngeal signs of aspiration across all presentations. Recommend soft solids and thin liquids, meds as able. No further dysphagia needs. Prognosis: Good Patient Education:Instructed and Verbalized understanding Results and recommendations of this evaluation were communicated to RN Plan BETTING CLERKS Recommendation at Discharge:No further dysphagia therapy This will serve as a discharge statement if patient is discharged before further visits. Electronically signed by Melony Acevedo CCC-BETTING CLERKS - 06/04/2025 - 8:56 AM EDT BETTING CLERKS Evaluation Completed * Octavio Odell MD - 06/04/2025 4:42 AM EDT Images from the original note were not included. Pulm/CC Date of consultation: 06/03/2025 Reason for consultation: ICU admission, renal failure Chief complaint: Weakness History of present illness: Patient is an 84-year-old female who presented to an outlying facility from the longterm for altered mental status. Patient has a past medical history including type 2 diabetes mellitus, chronic hypoxemic respiratory failure, chronic kidney disease, BRIDGETTE, hyperlipidemia, depression, GERD. Her mental status has deteriorated over the past couple of days with on and off confusion. Per report she has had multiple ground-level falls without trauma. In the emergency department her blood pressure was 105/44 with a heart rate in the 60s. She does have chronic respiratory failure and typically wears 2 L O2. Her initial laboratory data revealed sodium 140, potassium 7.2, serum CO2 24, serum creatin ine 6.00, glucose 115, WBC 8.5. Patient had a CT scan of the head that revealed no acute abnormalities. CT scan revealed diffuse patchy infiltrate noted throughout the right mid and lower lung. Patient was transferred to [facility] and admitted to the ICU. Pulmonary/critical care consulted for ICU admission. At time of evaluation, patient is awake, answering most questions appropriately. On 2 L O2 with adequate saturation. Hemodynamically stable not requiring vasopressors. No family present at bedside. She denies nausea, vomiting, diarrhea. No chest pain. 06/04 seen examined today, encephalopathic, confused, awake but not oriented, hypoxic 8 L nasal cannula bicarb drip, Azactam/Doxy, chest x-ray right lung infiltrate. Pneumonia panel pending, magnesium replaced, creatinine 5.35, urine output 300 cc. Nephrology following, ultrasound kidney pending PAST MEDICAL HISTORY: Past Medical History: Diagnosis Date Asthma Chronic kidney disease Emphysema lung (HCC) History of degenerative disc disease Hypertension Lumbar radiculopathy PAST SURGICAL HISTORY: Allergies: Allergies Allergen Reactions Azithromycin Ceftriaxone Pollen Extracts SOCIAL HISTORY: Social History Tobacco Use Smoking status: Former Current packs/day: 0.00 Types: Cigarettes Quit date: 2014 Years since quittin.7 Smokeless tobacco: Never Substance Use Topics Alcohol use: Never Drug use: Never FAMILY HISTORY: Family history is unknown by patient. ROS Constitutional: No fever, no weight changes HEENT: No headaches, no vision changes Cardiac: No chest pain, no palpitations, no orthopnea Pulmonary: No SOB, no TOLLIVER, no cough GI: No nausea, no vomiting, no abdominal pain, no melena, no constipation, no diarrhea : No dysuria, no hematuria, no flank pain MSK: No muscle cramping, + muscle weakness Neuro: No paresthesias, no focal deficits Skin: No rashes, no skin lesions Psych: No depression, no anxiety Vital Signs Temp: [98.4 ??F (36.9 ??C)] 98.4 ??F (36.9 ??C) Pulse: [74] 74 Resp: [22-24] 22 BP: (104)/(56) 104/56 Current: Temp: 98.4 ??F (36.9 ??C) Pulse: 74 Resp: 22 BP: 104/56 SpO2: 93 % 24 Hour: BP Min: 104/56 Max: 104/56 Temp Min: 98.4 ??F (36.9 ??C) Max: 98.4 ??F (36.9 ??C) Pulse Min: 74 Max: 74 Resp Min: 22 Max: 24 SpO2 Min: 92 % Max: 93 % Height Min: 170.2 cm (5' 7 ) Max: 170.2 cm (5' 7 ) Weight Min: 86.7 kg (191 lb 2.2 oz) Max: 86.7 kg (191 lb 2.2 oz) Intake/Output: No intake/output data recorded. Physical examination: General: Awake but confused Eyes: Pupils equal, round, reactive to light, extraocular movements intact, normal conjunctiva HENT: Normocephalic, atraumatic, Supple, nontender, no carotid bruit Respiratory: Breath sounds equal bilaterally, decreased in the bases, no rhonchi or wheezing Cardiovascular: Normal rhythm, normal rate, currently with controlled rate, S1-S2 Gastrointestinal: Soft, nontender, nondistended, normoactive bowel sounds Integumentary: Warm, intact Genitourinary: Deferred MSK: No deformities, normal range of motion Neurologic: Mostly alert, answers questions appropriately Psychiatric: Cooperative, appropriate mood Vent / O2 Management: LABS Results for orders placed or performed during the hospital encounter of 06/03/25 (from the past 24 hours) CBC with automated diff Status: Abnormal Collection Time: 06/03/25 11:42 PM Result Value Ref Range WBC 5.4 4.0 - 10.0 K/??L RBC 3.53 (L) 3.93 - 5.22 M/??L Hemoglobin 10.1 (L) 11.2 - 15.7 GM/DL Hematocrit 33.5 (L) 34.1 - 44.9 % MCV 95 79 - 95 fL MCH 28.6 25.6 - 32.2 pg MCHC 30.1 (L) 32.2 - 35.5 GM/DL RDW 17.3 (H) 11.7 - 14.4 % Platelets 84 (L) 140 - 375 K/CU MM MPV 11.4 9.4 - 12.3 fL % Neutros 65 34 - 71 % % Lymphs 16 (L) 19 - 52 % % Monos 11 5 - 13 % % Eos 2 1 - 6 % % Baso 1 0 - 1 % NRBC Absolute <0.01 0 - 0.012 K/ul # Neutros 3.55 1.56 - 6.13 K/??L # Lymphs 0.88 (L) 1.18 - 3.74 K/??L # Monos 0.59 0.24 - 0.86 K/??L # Eos 0.13 0.04 - 0.36 K/??L # Baso 0.03 0.01 - 0.08 K/??L Immature Granulocytes-Relative 4.60 (H) 0.01 - 0.43 % # IG 0.25 (H) 0.00 - 0.03 K/uL Lactic Acid with reflex (SJ) Status: Abnormal Collection Time: 06/03/25 11:42 PM Result Value Ref Range Lactic Acid Level (mmol/L) 2.4 (HH) 0.5 - 2.2 mmol/L CBC Scan Status: Abnormal Collection Time: 06/03/25 11:42 PM Result Value Ref Range Platelet Estimate Decreased (A) Adequate RBC Morphology Normal Normal Basic Metabolic Panel Status: Abnormal Collection Time: 06/03/25 11:43 PM Result Value Ref Range Sodium 141 136 - 145 meq/L Potassium 6.1 (HH) 3.4 - 5.1 meq/L CO2 16 (L) 22 - 29 meq/L Chloride 109 98 - 112 meq/L Glucose 85 82 - 115 mg/dL BUN 82.5 (H) 9.8 - 20.1 mg/dL Creatinine 5.62 (H) 0.57 - 1.11 mg/dL BUN/Creatinine 15 8 - 20 Calcium 8.9 8.4 - 10.2 mg/dL Anion Gap 22 (H) 4 - 12 eGFR (mL/min/1.73m2) 7 (L) >=60 mL/min/1.73m2 Osmolality Calc 305.4 mOsm/kg Magnesium Status: Abnormal Collection Time: 06/03/25 11:43 PM Result Value Ref Range Magnesium 1.3 (L) 1.6 - 2.6 mg/dL Phosphorus Status: Normal Collection Time: 06/03/25 11:43 PM Result Value Ref Range Phosphorus 4.4 2.5 - 4.5 mg/dL Creatine Kinase (CK) Status: Normal Collection Time: 06/03/25 11:43 PM Result Value Ref Range Total CK 62 29 - 168 U/L Sodium, random urine Status: None Collection Time: 06/03/25 11:50 PM Result Value Ref Range Sodium Urine 109 See Comment meq/L Protein, random urine Status: Abnormal Collection Time: 06/03/25 11:50 PM Result Value Ref Range Protein, Urine 15 (H) 1 - 14 mg/dL Creatinine, random urine Status: Abnormal Collection Time: 06/03/25 11:50 PM Result Value Ref Range Creatinine, Ur 39.00 (L) 47.00 - 110.00 mg/dL Strep pneumoniae urine antigen Status: Normal Collection Time: 06/03/25 11:50 PM Specimen: Urine, Unspecified Source Result Value Ref Range Strep pneumoniae Antigen Presumptive negative for pneumococcal pneumonia- see comment Presumptive negative for pneumococcal pneumonia - see comment Legionella antigen, urine Status: Normal Collection Time: 06/03/25 11:50 PM Result Value Ref Range Legionella Urine Antigen Presumptive negative for L. pneumophila serogroup 1 antigen in urine- see comment Presumptive negative for L. pneumophila serogroup 1 antigen in urine- see comment Urea Nitrogen, random urine Status: None Collection Time: 06/03/25 11:50 PM Result Value Ref Range Urea Nitrogen, Ur 328 mg/dL Chloride, random urine Status: None Collection Time: 06/03/25 11:50 PM Result Value Ref Range ChlorideUr 109 See Comment mmol/L Radiology Radiology Results (last day) Procedure Component Value Units Date/Time XR chest AP portable - In process [[id number]] Resulted: 06/04/25 0149 Order Status: Sent Updated: 06/04/25 0150 This result has not been signed. Information might be incomplete. Microbiology: Microbiology Results (last 7 days) Procedure Component Value Units Date/Time Strep pneumoniae urine antigen [[id number]] (Normal) Collected: 06/03/25 2350 Order Status: Completed Specimen: Urine, Unspecified Source Updated: 06/04/25 0012 Strep pneumoniae Antigen Presumptive negative for pneumococcal pneumonia - see comment Narrative: A presumptive negative result suggests no current or recent pneumococcal infection. Infection due to S. pneumoniae cannot be ruled out since the antigen present in the specimen may be below the detection limit of the test. Impression: Neuro: Acute metabolic/uremic encephalopathy Ground level fall Degenerative cervical spine disease T12 compression fracture Pulmonary Acute/chronic hypoxic respiratory failure 8 L nasal cannula Right lung infiltrate/pneumonia Mild pulmonary vascular congestion CXR Former smoker possible COPD Cardiovascular History of hypertension Possible CHF Infectious disease Right lung pneumonia possible CAP Renal: Acute hyperkalemia Acute kidney injury/CKD Hematology: Chronic anemia Chronic thrombocytopenia Endocrinology Type 2 diabetes mellitus Plan: Neuro: Acute encephalopathy in setting of worsening renal failure hyperkalemia cannot rule out underlying pneumonia. Patient protecting airway on nasal cannula Head CT outside facility: Reported to be negative for acute finding. CT cervical spine degenerative changes with central canal narrowing, moderate compression T12 fracture. Will need evaluation by neurosurgery versus orthopedic Pulmonary acute on chronic hypoxic respiratory failure 8 L nasal cannula, ABG pending Chest x-ray right lung infiltrate cannot rule out community-acquired pneumonia started minocycline/doxycycline Pneumonia panel: Ordered, pending Strep/Legionella antigen: Negative MRSA screen: Ordered, pending Follow-up daily chest x-ray, wean down oxygen to keep sat above 90 DuoNeb/Pulmicort Once stable dedicated CAT scan chest for right lung infiltrate Cardiovascular: Hemodynamically stable. Underlying heart failure with EF, proBNP/echo pending Infectious: CBC no leukocytosis, Pro-Erasmo pending, chest x-ray lung infiltrate on the right, empirically started on Sigtab/doxycycline, pneumonia workup ordered, pending Renal: RICHIE/CKD, sodium unremarkable, hyperkalemia treated with hyperkalemia cocktail, magnesium replaced Nephrology consulted, UA/ultrasound kidney ordered Mild metabolic acidosis likely due to renal failure. Started bicarb drip Nephrology following. Decision about HD pending GI/nutrition: P.o. diet, LFT unremarkable, bilirubin unremarkable, bowel regimen Hematology: CBC no leukocytosis, H&H stable, thrombocytopenia chronic, mild anemia chronic. Prophylaxis: Subcu heparin/Pepcid CODE STATUS full Prognosis: Guarded/poor Dispo: ICU Case discussed during round. I have personally evaluated the patient and performed a [id number] diagnostic evaluation on this patient; I have reviewed history, performed physical examination, reviewed laboratory studies. , andreviewed images independent of radiologist. I have actively directed the medical care, formulated assessemnt and plan of care. Patient requires a high complexity of decision making for assessment. 55 minutes critical care time was spent. Voice management trainee technology ([employer]) is used for dictation of this note and sound-alike words might be erroneously placed despite reviewing the note for accuracy.Errors in dictation may reflect use of voice recognition software and not all errors in management trainee may have been detectedprior to signing documented in this encounter H&P Notes * Sima Mancia MD - 06/03/2025 11:14 PM EDT History of Present Illness History Of Present Illness 84 YO Female with PMH CKD 3, DM 2, HTN, Asthma, Chronic Respiratory Failure, Arthritis, presented on 06/03 from [facility] after she presented there from nursing facility after a fall and noted to have altered mental status and workup showed acute renal failure. It is difficult getting history from pt although she is oriented. It is not clear how pt fell. She reports she hasn't been eating/drinking well because she can't get to the food. She reports of SOB but denies fever, chills, cough, n/v/d. At the [facility] workup showed, Na 140, K+ 7.2, Cr 6.00, CO2 24, UA neg, CT Head showed no acute abnormality, CT C-Spine showed degenerative changes C3-4, C6-7, central canal narrowing C4-C5, C5-C6, CT T- Spine showed showed stable moderate compression T12, patchy infiltrate R mid to lower lung. Pt was placed on hyperkalemia protocol and was transferred for Nephro evaluation. Past Medical History CKD 3, DM 2, HTN, Asthma, Arthritis Surgical History She has no past surgical history on file. Social History She has no history on file for tobacco use, alcohol use, and drug use. Family History Dad and Brother- CAD Allergies Patient has no known allergies. Medications No current outpatient medications Review of Systems Review of Systems Constitutional: [No fevers, chills] Respiratory: [+ shortness of breath, denies cough] Cardiovascular: [No Chest pain] Gastrointestinal: [denies nausea, vomiting, diarrhea] Neurologic: [No tremors, blackouts] Last Recorded Vitals There were no vitals taken for this visit. Physical Exam General: [Awake, lethargic, and oriented x3 but confused, NAD] Neurologic: [Awake, confused, no focal deficits]. Eye: [PERRL, normal conjuctiva]. HENT: [Normocephalic, no scleral icterus]. Neck: [Supple, no JVD]. Lungs: [Clear to auscultation, on 2L NC ]. Heart: [Regular rate, regular rhythm, no gallop, trace edema]. Abdomen: [Soft, non-tender, non-distended, normal bowel sounds, no masses]. Musculoskeletal: [L ankle deformity (chronic)]. Skin: [Skin is warm, dry, ecchymosis b/l LE] Psychiatric: [Cooperative]. Diagnostic Results No visits with results within 1 Day(s) from this visit. Latest known visit with results is: Historic Encounter on 05/18/2020 Component Date Value Ref Range Status Glucose POC2 05/18/2020 138 (H) 70 - 110 mg/dL Final Electric Organ Checker 05/18/2020 [id number] Final Device SN 05/18/2020 [id number] Final XR chest 1 view portable / bedside PORTABLE CHEST 05/18/2020 9:29 AM HISTORY: Precordial chest pain. COMPARISON: None. FINDINGS: The heart is normal in size . The mediastinum is unremarkable . Prominent interstitial changes are noted, likely secondary to interstitial edema. There is no pneumothorax . The osseous structures are unremarkable . IMPRESSION: Prominent interstitial changes are likely secondary to interstitial edema. Continued follow-up is recommended . Images reviewed, interpreted, and dictated by Dr. Marisela Luther. Transcribed by Kirill Collins(R). I have personally viewed, interpreted and dictated the examination. I have read and agree with the above final transcribed report. [place] radio broadcaster in or 30 minute increments FLUOROSCOPY TIME PROCEDURE: Fluoroscopy in the operating room. HISTORY: Right hip pain FINDINGS: 1.5 minutes of fluoroscopy time were provided by the radiology department for the clinical service. 10 intraoperative films demonstrate a right hip arthroplasty. Please see the operative report. IMPRESSION: Fluoroscopy provided as above Images reviewed, interpreted, and dictated by Elbert Hercules MD Assessment & Plan Principal Problem: Acute renal failure (ARF) (HCC) Assessment and Plan: Acute Renal Failure on CKD 3 Metabolic Acidosis -Likely prerenal due to volume depletion -Baseline Cr unknown -At home is on irbesartan -Urine studies ordered -Renal US ordered -Cr 6 -->5.62; CO2 - 16 -Currently on bicarb drip -Nephro consulted Hyperkalemia -Due to renal failure -K+ at [facility] 7.2 -->6.1 -Hyperkalemia protocol at [facility] -[facility] ordered -Currently on bicarb drip -Monitor Acute on Chronic Hypoxic Respiratory Failure due to PNA Asthma -At baseline on 2L NC, currently on 3L NC -Imaging at [facility] showed patchy infiltrate R mid to lower lung -Urine strep and legionella - Neg -Speech swallow eval -DuoNebs BID -Has allergy to Ceftriaxone did get on admission and received solumedrol and benadryl, currently onAztreonam and Dox Acute Metabolic Encephalopathy -Likely due to renal failure -Pt was confused at nursing facility -CT Head showed no acute abnormality Fall -CT C-Spine showed degenerative changes C3-4, C6-7, central canal narrowing C4- C5, C5-C6 -CT T-Spine showed showed stable moderate compression T12 -PT/OT Lactic Acidosis -Likely multifactorial volume depletion and hypoxia -Lactic acid 2.4 -Monitor Hypomagnesemia -Replace and monitor Anemia -Hgb currently 10 -Will check iron studies -Monitor Thrombocytopenia -Plt 84K -Will check B12 -Monitor HTN -Hold Irbesartan -IV Hydralazine PRN DM 2, Neuropathy -SSI -Have not restarted Lyrica at this time DVT: SCD's at this time Expected to have greater than 2 midnight stay Electronically signed by: Sima Mancia MD, 06/03/2025 at 11:15 PM documented in this encounter Consult Notes * APOLINAR Al - 06/07/2025 2:14 PM EDTAssociated Order(s): IP CONSULT TO CARE COORDINATION Summary: CM Progress Note 5 LNC O2 via simple mask IV Azactam & Doxy Pt is from [facility] w/ [facility] is following pt to assist w/ getting pt back to [place] at DC Pt will require ambulance transportation No precert will be required to return to [facility] DC plan is return to [facility] Expected DC Date: TBD Barrier: medical readiness CM will continue to follow APOLINAR Quintero, CASING WRINGER OPERATOR * Michelle Shaffer RD - 06/05/2025 1:54 PM EDTAssociated Order(s): FS_MODEL_IP IP CONSULT TO DIETITIAN RD check on 06/05: Pt remains in ICU, on oxymask. Consult received for TF. Noted per pulmonary- pt with possible aspiration. Corpak placed. KUB pending. Diet still in place, spoke with RN/pulmonary- ok to make pt NPO at this time. Drips: none Labs: Na 146, Glu 105 (FSBS 87, 97, 109), phos 5.3 (06/04) Estimated Needs 5122-8527 kcal/day (20-22 kcal/kg) ~85 g protein/day (1.0 g/kg) Nutrition Monitoring and Goals: - Will adjust diet to NPO per pulmonary. Rec BETTING CLERKS re-eval prior to restarting diet (rec 60g CHO dietwith ONS prn) Goal: safe PO -Once corpak placement confirmed, then rec Jevity 1.5 at 20 ml/hr, AAT to goal of 55 ml/hr (1815 kcal and 77 g protein). FW per MD Goal: meet >80% of et needs - Obtain wt 2x weekly Goal: avoid involuntary significant wt change - Monitor elytes/renal fxn *Noted phos 5.3 yesterday. Will monitor trend and adjust to Nepro prn (Nepro at 45 ml/hr will provide 1782 kcal and 80 g protein) Goal: wnls - Assess for PCM as able Goal: accurate PCM diagnosis Nutrition Risk Level: High Risk Michelle Shaffer RD * Olivia Casas RD - 06/04/2025 9:[address] ADIME NUTRITION ASSESSMENT ADIME Nutrition Assessment The patient is a 84 y.o. female presenting with AMS and s/p fall. Present on Admission: Acute renal failure (ARF) (HCC) Acute resp failure Pna Acute metabolic encephalopathy Nutrition Evaluation Type: Initial Assessment Reason for Evaluation: MST=2 (2-13# wt loss, decreased intakes) Subjective Comments: 06/04: Screened pt for MST=2. Pt admitted for AMS, s/p falls. Pt passed BETTING CLERKS eval, on soft and bite sized diet. Intakes establishing. Not much wt hx in EMR to determine wt loss. Pt is not appropriate for interview at this time. Will continue to assess for PCM as able. Noted K+ elevated, will add restriction for now. Past Medical/Surgical History: Past Medical History: Diagnosis Date Asthma Chronic kidney disease Emphysema lung (HCC) History of degenerative disc disease Hypertension Lumbar radiculopathy No past surgical history on file. 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 PU to coccyx per nsg Allergies: Allergies Allergen Reactions Azithromycin Ceftriaxone Pollen Extracts Scheduled Medications: Current Facility-Administered Medications Medication Dose Route Frequency Provider Last Rate Last Admin acetaminophen (TYLENOL) tablet 650 mg 650 mg oral Q6H PRN Sima Mancia MD aztreonam (AZACTAM) 500 mg in sodium chloride 0.9 % (NS) 100 mL IVPB 500 mg intravenous Q12H MD Cherelle budesonide (PULMICORT) nebulizer suspension 0.5 mg 0.5 mg nebulization 2 times daily Sima Mancia MD 0.5 mg at 06/04/25 0833 dextrose 50% (D50W) injection 25 g 25 g intravenous Q15 Min PRN Sima Mancia MD doxycycline (VIBRAMYCIN) capsule 100 mg 100 mg oral Q12H Sima Mancia MD 100 mg at 06/03/25 2331 famotidine (PEPCID) tablet 20 mg 20 mg oral Daily Sima Mancia MD glucagon injection 1 mg 1 mg intraMUSCULAR Q15 Min PRN Sima Mancia MD glucose chew tab 16 g 16 g oral Q15 Min PRN Sima Mancia MD heparin injection 5,000 Units 5,000 Units subcutaneous Q8H Octavio Odell MD hydrALAZINE (APRESOLINE) injection 10 mg 10 mg intravenous Q6H PRN Sima Mancia MD insulin lispro (HUMALOG, ADMELOG) injection 0-6 Units 0-6 Units subcutaneous 4x Daily AC Sima Mancia MD ipratropium-albuteroL (DUO-NEB) 0.5 mg-3 mg(2.5 mg base)/3 mL nebulizer solution 3 mL 3 mL nebulization 2 times daily Sima Mancia MD 3 mL at 06/04/25 0833 ondansetron (ZOFRAN) injection 4 mg 4 mg intravenous Q6H PRN Sima Mancia MD polyethylene glycol (GLYCOLAX) packet 17 g 17 g oral Daily PRAmelie Mancia MD polyethylene glycol (GLYCOLAX) packet 17 g 17 g oral Daily Octavio Odell MD Saccharomyces boulardii (FLORASTOR) capsule 250 mg 250 mg oral BID Sima Mancia MD sennosides-docusate sodium (SENOKOT S) 8.6-50 mg tablet 1 tablet 1 tablet oral BID PRN Sima Mancia MD sodium bicarbonate 150 mEq in sterile water 1,150 mL infusion 150 mEq intravenous Continuous Sima Mancia MD 100 mL/hr at 06/04/25 0702 150 mEq at 06/04/25 0702 sodium polystyrene sulf-sorbtL 15-20 gram/60 mL suspension 60 g 60 g oral Once Holger Mishra MD sodium zirconium cyclosilicate (LOKELMA) packet 10 g 10 g oral Once Sima Mancia MD Drips: [place] Recent Labs 06/03/25 2342 06/03/25 2343 06/04/25 0441 06/04/25 0502 06/04/25 0556 NA -- 141 -- 145 -- K -- 6.1* -- 6.5* -- CO2 -- 16* -- 17* -- BUN -- 82.5* -- 79.5* -- CREATININE -- 5.62* -- 5.35* -- GLUCOSE -- 85 -- 116* 133* CALCIUM -- 8.9 -- 8.7 -- PROT -- -- -- 6.3* -- ALBUMIN -- -- -- 2.5* -- BILITOT -- -- -- 0.5 -- ALKPHOS -- -- -- 63 -- AST -- -- -- 36* -- ALT -- -- -- 10 -- HGB 10.1* -- 11.1* -- -- HCT 33.5* -- 36.4 -- -- No results found for: HGBA1C Anthropometrics: Ht: Height: 170.2 cm (5' 7 ) Wt: Weight: 86.7 kg (191 lb 2.2 oz) Wt hx: 194# (9/30/25) BMI: Body mass index is 29.94 kg/m??. Wt Change: fairly stable UBW: UTO IBW: 135# Percent IBW: 141% Current Nutrition Intake: Diet Orders: Diet Order(s): Level 6 Soft and Bite Sized Dysphagia diet Additional Modifiers: Consistent Carbohydrate; Carbohydrate: 5 Carbohydrate (5 CHO, 75g per meal) Supplements: none Intake: establishing Enteral Nutrition? no Diet Experience and Nutrition History: Previous Nutrition Education: Unknown Diet Education Provided: pt not appropriate at this time Nutrition Focused Physical Exam: Date performed: 06/04 - unable to assess Physical signs of fat or muscle wasting with severity: UTO Energy intake hx: UTO Wt loss: UTO Assessment of Malnutrition: Unable to complete malnutrition evaluation at this time. Nutrition Diagnoses: Problem #1: Predicted Sub Optimal Intake Etiology: inability to meet metabolic demand Signs/Symptoms: MST=2 Status: New Nutrition Interventions and Recommendations: Collaboration with other providers, General, healthfuldiet, and Commercial beverage Nutrition Monitoring and Goals: - Adjust diet to soft and bite sized, 75 gm CHO/low K+ diet. RD to add Nepro BID Goal: >50% PO intake + ONS (goal progressing) - Obtain wt 2x weekly Goal: avoid involuntary significant wt change - Monitor elytes/renal fxn Goal: wnls - Assess for PCM as able Goal: accurate PCM diagnosis Nutrition Risk Level: High Risk Olivia Casas RD * Holger Mishra MD - 06/04/2025 7:44 AM EDTAssociated Order(s): Inpatient consult to Care Coordination Images from the original note were not included. Inpatient consult to Care Coordination Consult performed by: Holger Mishra MD Consult ordered by: Sima Mancia MD Coverage for Dr Ochoa History of Present Illness: Kirstie Nascimento is an 84 y.o. female with PMHx of stage III CKD, DM 2, HTN, Asthma, Chronic Respiratory Failure, Arthritis, who was transferred from outside hospital after she presented there from nursing facility due to fal and altered mental status. Initial workup showed RICHIE. CXR showed patchy infiltrate R mid to lower lung. Pt was given hyperkalemia protocol and was transferred to [facility] for renal evaluation. Patient is very poor historian and unable to provide reliable history. Past Medical History She has a past medical history of Asthma, Chronic kidney disease, Emphysema lung (HCC), History of degenerative disc disease, Hypertension, and Lumbar radiculopathy. Past Surgical History She has no past surgical history on file. Family History: Her Family history is unknown by patient. Allergies: Azithromycin, Ceftriaxone, and Pollen Extracts Home Medications: Prior to Admission medications Medication Sig Start Date End Date Taking? Authorizing Provider calcium carbonate (OS-ERASMO) 600 mg calcium (1,500 mg) Take 600 mg by mouth daily. Yes Historical Provider, cyanocobalamin 1000 MCG tablet Take 1 tablet (1,000 mcg total) by mouth daily. Yes Historical Provider, dapagliflozin propanediol (Farxiga) 10 mg tablet Take 1 tablet (10 mg total) by mouth daily. Yes Historical Provider, escitalopram (LEXAPRO) 20 MG tablet Take 1 tablet (20 mg total) by mouth daily. Yes Historical Provider, esomeprazole (NexIUM) 40 MG capsule Take 1 capsule (40 mg total) by mouth Daily (0600). Yes Historical Provider, famotidine (PEPCID) 20 MG tablet Take 2 tablets (40 mg total) by mouth once at bedtime. Yes Historical Provider, fluticasone propion-salmeteroL (ADVAIR) 250-50 mcg/dose diskus inhaler Inhale 1 puff by mouth 2 (two) times daily. Yes Historical Provider, furosemide (LASIX) 40 MG tablet Take 1 tablet (40 mg total) by mouth daily. Yes Historical Provider, ipratropium-albuteroL (DUO-NEB) 0.5 mg-3 mg(2.5 mg base)/3 mL nebulizer solution Inhale 3 mLs by nebulization every 6 (six) hours as needed for wheezing. Yes Historical Provider, irbesartan (AVAPRO) 300 MG tablet Take 1 tablet (300 mg total) by mouth nightly. Yes Historical Provider, loperamide (IMODIUM) 2 mg capsule Take 1 capsule (2 mg total) by mouth 4 (four) times daily as needed for diarrhea. Yes Historical Provider, metFORMIN (GLUCOPHAGE) 500 MG tablet Take 1 tablet (500 mg total) by mouth 2 (two) times daily withbreakfast and dinner Look-alike/Sound-alike medication. Yes Historical Provider, metoprolol succinate (TOPROL-XL) 50 MG 24 hr tablet Take 1 tablet (50 mg total) by mouth daily. YesHistorical Provider, montelukast (SINGULAIR) 10 mg tablet Take 1 tablet (10 mg total) by mouth nightly. Yes Historical Provider, multivitamin per tablet Take 1 tablet by mouth daily. Yes Historical Provider, oxybutynin (DITROPAN) 5 MG tablet Take 4 tablets (20 mg total) by mouth daily. Yes Historical Provider, pregabalin (LYRICA) 75 MG capsule Take 1 capsule (75 mg total) by mouth 2 (two) times daily. Max Daily Amount: 150 mg Yes Historical Provider, simvastatin (ZOCOR) 20 MG tablet Take 1 tablet (20 mg total) by mouth nightly. Yes Historical Provider, spironolactone (ALDACTONE) 50 MG tablet Take 1 tablet (50 mg total) by mouth daily. Yes Historical Provider, TiZANidine (ZANAFLEX) 2 MG capsule Take 1 capsule (2 mg total) by mouth once at bedtime. Yes Historical Provider, Current Medications: Current Facility-Administered Medications: acetaminophen (TYLENOL) tablet 650 mg, 650 mg, oral, Q6H PRN, Sima Mancia MD aztreonam (AZACTAM) 1 g in sodium chloride 0.9 % (NS) MBP IVPB, 1 g, intravenous, Q8H, Sima Mancia MD, 1 g at 06/04/25 0510 budesonide (PULMICORT) nebulizer suspension 0.5 mg, 0.5 mg, nebulization, 2 times daily, Sima Mancia MD dextrose 50% (D50W) injection 25 g, 25 g, intravenous, Q15 Min PRN, Sima Mancia MD doxycycline (VIBRAMYCIN) capsule 100 mg, 100 mg, oral, Q12H, Sima Mancia MD, 100 mg at 06/03/25 2331 famotidine (PEPCID) tablet 20 mg, 20 mg, oral, Daily, Sima Mancia MD glucagon injection 1 mg, 1 mg, intraMUSCULAR, Q15 Min PRN, Sima Mancia MD glucose chew tab 16 g, 16 g, oral, Q15 Min PRN, Sima Mancia MD hydrALAZINE (APRESOLINE) injection 10 mg, 10 mg, intravenous, Q6H PRN, Sima Mancia MD insulin lispro (HUMALOG, ADMELOG) injection 0-6 Units, 0-6 Units, subcutaneous, 4x Daily AC, Sima Mancia MD ipratropium-albuteroL (DUO-NEB) 0.5 mg-3 mg(2.5 mg base)/3 mL nebulizer solution 3 mL, 3 mL, nebulization, 2 times daily, Sima Mancia MD, 3 mL at 06/03/25 2347 ondansetron (ZOFRAN) injection 4 mg, 4 mg, intravenous, Q6H PRN, Sima Mancia MD polyethylene glycol (GLYCOLAX) packet 17 g, 17 g, oral, Daily PRN, Sima Mancia MD Saccharomyces boulardii (FLORASTOR) capsule 250 mg, 250 mg, oral, BID, Sima Mancia MD sennosides-docusate sodium (SENOKOT S) 8.6-50 mg tablet 1 tablet, 1 tablet, oral, BID PRN, Sima Mancia MD sodium bicarbonate 150 mEq in sterile water 1,150 mL infusion, 150 mEq, intravenous, Continuous, Sima Mancia MD, Last Rate: 100 mL/hr at 06/04/25 0702, 150 mEq at 06/04/25 0702 sodium polystyrene sulf-sorbtL 15-20 gram/60 mL suspension 60 g, 60 g, oral, Once, Holger Mishra MD sodium zirconium cyclosilicate (LOKELMA) packet 10 g, 10 g, oral, Once, Sima Mancia MD Review of Systems Unable to perform ROS: Mental status change Vitals Blood pressure (!) 144/66, pulse 50, temperature 98.4 ??F (36.9 ??C), temperature source Oral, resp. rate 15, height 1.702 m (5' 7 ), weight 86.7 kg (191 lb 2.2 oz), SpO2 95%. Physical Exam Vitals and nursing note reviewed. Constitutional: Appearance: Normal appearance. She is normal weight. HENT: Head: Normocephalic and atraumatic. Nose: Nose normal. Mouth/Throat: Pharynx: Oropharynx is clear. Eyes: Extraocular Movements: Extraocular movements intact. Conjunctiva/sclera: Conjunctivae normal. Pupils: Pupils are equal, round, and reactive to light. Cardiovascular: Rate and Rhythm: Normal rate. Rhythm irregular. Pulses: Normal pulses. Heart sounds: Normal heart sounds. Pulmonary: Effort: Pulmonary effort is normal. Breath sounds: Rhonchi and rales present. Abdominal: General: Abdomen is flat. Bowel sounds are normal. Palpations: Abdomen is soft. Musculoskeletal: General: Normal range of motion. Cervical back: Normal range of motion and neck supple. Right lower leg: Edema present. Left lower leg: Edema present. Skin: General: Skin is warm and dry. Neurological: General: No focal deficit present. Mental Status: She is alert. Mental status is at baseline. She is disoriented. Psychiatric: Behavior: Behavior normal. Labs: Recent Results (from the past 72 hours) CBC with automated diff Collection Time: 06/03/25 11:42 PM Result Value Ref Range WBC 5.4 4.0 - 10.0 K/??L RBC 3.53 (L) 3.93 - 5.22 M/??L Hemoglobin 10.1 (L) 11.2 - 15.7 GM/DL Hematocrit 33.5 (L) 34.1 - 44.9 % MCV 95 79 - 95 fL MCH 28.6 25.6 - 32.2 pg MCHC 30.1 (L) 32.2 - 35.5 GM/DL RDW 17.3 (H) 11.7 - 14.4 % Platelets 84 (L) 140 - 375 K/CU MM MPV 11.4 9.4 - 12.3 fL % Neutros 65 34 - 71 % % Lymphs 16 (L) 19 - 52 % % Monos 11 5 - 13 % % Eos 2 1 - 6 % % Baso 1 0 - 1 % NRBC Absolute <0.01 0 - 0.012 K/ul # Neutros 3.55 1.56 - 6.13 K/??L # Lymphs 0.88 (L) 1.18 - 3.74 K/??L # Monos 0.59 0.24 - 0.86 K/??L # Eos 0.13 0.04 - 0.36 K/??L # Baso 0.03 0.01 - 0.08 K/??L Immature Granulocytes-Relative 4.60 (H) 0.01 - 0.43 % # IG 0.25 (H) 0.00 - 0.03 K/uL Lactic Acid with reflex (SJ) Collection Time: 06/03/25 11:42 PM Result Value Ref Range Lactic Acid Level (mmol/L) 2.4 (HH) 0.5 - 2.2 mmol/L CBC Scan Collection Time: 06/03/25 11:42 PM Result Value Ref Range Platelet Estimate Decreased (A) Adequate RBC Morphology Normal Normal Basic Metabolic Panel Collection Time: 06/03/25 11:43 PM Result Value Ref Range Sodium 141 136 - 145 meq/L Potassium 6.1 (HH) 3.4 - 5.1 meq/L CO2 16 (L) 22 - 29 meq/L Chloride 109 98 - 112 meq/L Glucose 85 82 - 115 mg/dL BUN 82.5 (H) 9.8 - 20.1 mg/dL Creatinine 5.62 (H) 0.57 - 1.11 mg/dL BUN/Creatinine 15 8 - 20 Calcium 8.9 8.4 - 10.2 mg/dL Anion Gap 22 (H) 4 - 12 eGFR (mL/min/1.73m2) 7 (L) >=60 mL/min/1.73m2 Osmolality Calc 305.4 mOsm/kg Magnesium Collection Time: 06/03/25 11:43 PM Result Value Ref Range Magnesium 1.3 (L) 1.6 - 2.6 mg/dL Phosphorus Collection Time: 06/03/25 11:43 PM Result Value Ref Range Phosphorus 4.4 2.5 - 4.5 mg/dL Creatine Kinase (CK) Collection Time: 06/03/25 11:43 PM Result Value Ref Range Total CK 62 29 - 168 U/L Sodium, random urine Collection Time: 06/03/25 11:50 PM Result Value Ref Range Sodium Urine 109 See Comment meq/L Protein, random urine Collection Time: 06/03/25 11:50 PM Result Value Ref Range Protein, Urine 15 (H) 1 - 14 mg/dL Creatinine, random urine Collection Time: 06/03/25 11:50 PM Result Value Ref Range Creatinine, Ur 39.00 (L) 47.00 - 110.00 mg/dL Strep pneumoniae urine antigen Collection Time: 06/03/25 11:50 PM Specimen: Urine, Unspecified Source Result Value Ref Range Strep pneumoniae Antigen Presumptive negative for pneumococcal pneumonia- see comment Presumptive negative for pneumococcal pneumonia - see comment Legionella antigen, urine Collection Time: 06/03/25 11:50 PM Result Value Ref Range Legionella Urine Antigen Presumptive negative for L. pneumophila serogroup 1 antigen in urine- see comment Presumptive negative for L. pneumophila serogroup 1 antigen in urine- see comment Urea Nitrogen, random urine Collection Time: 06/03/25 11:50 PM Result Value Ref Range Urea Nitrogen, Ur 328 mg/dL Chloride, random urine Collection Time: 06/03/25 11:50 PM Result Value Ref Range ChlorideUr 109 See Comment mmol/L CBC with automated diff Collection Time: 06/04/25 4:41 AM Result Value Ref Range WBC 7.8 4.0 - 10.0 K/??L RBC 3.88 (L) 3.93 - 5.22 M/??L Hemoglobin 11.1 (L) 11.2 - 15.7 GM/DL Hematocrit 36.4 34.1 - 44.9 % MCV 94 79 - 95 fL MCH 28.6 25.6 - 32.2 pg MCHC 30.5 (L) 32.2 - 35.5 GM/DL RDW 17.4 (H) 11.7 - 14.4 % Platelets 83 (L) 140 - 375 K/CU MM MPV 11.5 9.4 - 12.3 fL % Neutros 88 (H) 34 - 71 % % Lymphs 5 (L) 19 - 52 % % Monos 4 (L) 5 - 13 % % Eos 0 (L) 1 - 6 % % Baso 1 0 - 1 % NRBC Absolute <0.01 0 - 0.012 K/ul # Neutros 6.81 (H) 1.56 - 6.13 K/??L # Lymphs 0.37 (L) 1.18 - 3.74 K/??L # Monos 0.28 0.24 - 0.86 K/??L # Eos 0.03 (L) 0.04 - 0.36 K/??L # Baso 0.04 0.01 - 0.08 K/??L Immature Granulocytes-Relative 3.10 (H) 0.01 - 0.43 % # IG 0.24 (H) 0.00 - 0.03 K/uL Comprehensive metabolic panel Collection Time: 06/04/25 5:02 AM Result Value Ref Range Sodium 145 136 - 145 meq/L Potassium 6.5 (HH) 3.4 - 5.1 meq/L Chloride 110 98 - 112 meq/L CO2 17 (L) 22 - 29 meq/L Calcium 8.7 8.4 - 10.2 mg/dL Glucose 116 (H) 82 - 115 mg/dL BUN 79.5 (H) 9.8 - 20.1 mg/dL Creatinine 5.35 (H) 0.57 - 1.11 mg/dL BUN/Creatinine 15 8 - 20 eGFR (mL/min/1.73m2) 7 (L) >=60 mL/min/1.73m2 Albumin 2.5 (L) 3.5 - 5.0 g/dL Alkaline Phosphatase 63 40 - 150 U/L ALT 10 <=34 U/L AST 36 (H) 11 - 34 U/L Total Bilirubin 0.5 0.2 - 1.2 mg/dL Protein, Total 6.3 (L) 6.4 - 8.3 g/dL Globulin 3.8 2.5 - 4.1 g/dL Anion Gap 25 (H) 4 - 12 A/G Ratio 0.7 0.7 - 1.9 Osmolality Calc 313.5 mOsm/kg Iron and TIBC Collection Time: 06/04/25 5:02 AM Result Value Ref Range Iron 101 50 - 170 ug/dL TIBC 244 (L) 250 - 435 ug/dL % Saturation 41 % UIBC 143 Ferritin Collection Time: 06/04/25 5:02 AM Result Value Ref Range Ferritin 162.66 4.63 - 204.00 ng/mL Vitamin B12 Collection Time: 06/04/25 5:02 AM Result Value Ref Range Vitamin B12 >2,000 (H) 213 - 816 pg/mL Magnesium Collection Time: 06/04/25 5:02 AM Result Value Ref Range Magnesium 3.2 (H) 1.6 - 2.6 mg/dL Glucose, Nova Meter Collection Time: 06/04/25 5:56 AM Result Value Ref Range POC-GLUCOSE 133 (H) 70 - 110 mg/dL Electric [employer]er [id number] Imaging: XR chest AP portable Result Date: 06/04/2025 PORTABLE CHEST 06/04/2025 1:44 AM HISTORY: Acute shortness of breath. COMPARISON: May 18, 2020. FINDINGS: The heart is normal in size . The mediastinum is unremarkable . Lungs are underinflatedwith mild chronic changes in the bases. There is no pneumothorax . No acute cardiopulmonary process . Images reviewed, interpreted, and dictated by Dr. Matt Lund. Transcribed by Pal Cosby PA-C Assessment: Acute kidney injury likely ATN on stage III CKD Hyperkalemia HAG Metabolic acidosis Uremic and Lactic Encephalopathy, likely metabolic Thrombocytopenia H/o essential HTN Type II DM Obesity Chronic hypoxemic respiratory failure BRIDGETTE Plan: -Renal function slightly improved -Administer Kayexelate 60 gm PO -Patient is at risk for [employer], repeat BMP in few hours to determine how to proceed -Hold home meds Irbesartan, Spironolactone, Metformin, and Farxiga. -Agree with alkali therapy -Initiate RICHIE work up -Avoidance of nephrotoxins -Renal dosing of meds -Follow renal function, electrolytes, I/O, and acid base status very closely -Further management of other medical problems is per primary team and other specialities Thank you for this interesting consultation. Please do not hesitate to contact me with any question or concernregarding this patient at [phone]. Electronically signed by Holger Mishra MD 06/04/2025 at 7:45 AM EDT * Steffen Juan PA-C - 06/03/2025 10:53 PM EDT Pulm/CC Date of consultation: 06/03/2025 Reason for consultation: ICU admission, renal failure Chief complaint: Weakness History of present illness: Patient is an 84-year-old female who presented to an outlying facility from the longterm for altered mental status. Patient has a past medical history including type 2 diabetes mellitus, chronic hypoxemic respiratory failure, chronic kidney disease, BRIDGETTE, hyperlipidemia, depression, GERD. Her mental status has deteriorated over the past couple of days with on and off confusion. Per report she has had multiple ground-level falls without trauma. In the emergency department her blood pressure was 105/44 with a heart rate in the 60s. She does have chronic respiratory failure and typically wears 2 L O2. Her initial laboratory data revealed sodium 140, potassium 7.2, serum CO2 24, serum creatin ine 6.00, glucose 115, WBC 8.5. Patient had a CT scan of the head that revealed no acute abnormalities. CT scan revealed diffuse patchy infiltrate noted throughout the right mid and lower lung. Patient was transferred to [facility] and admitted to the ICU. Pulmonary/critical care consulted for ICU admission. At time of evaluation, patient is awake, answering most questions appropriately. On 2 L O2 with adequate saturation. Hemodynamically stable not requiring vasopressors. No family present at bedside. She denies nausea, vomiting, diarrhea. No chest pain. PAST MEDICAL HISTORY: No past medical history on file. PAST SURGICAL HISTORY: Allergies: No Known Allergies SOCIAL HISTORY: FAMILY HISTORY: family history is not on file. ROS Constitutional: No fever, no weight changes HEENT: No headaches, no vision changes Cardiac: No chest pain, no palpitations, no orthopnea Pulmonary: No SOB, no TOLLIVER, no cough GI: No nausea, no vomiting, no abdominal pain, no melena, no constipation, no diarrhea : No dysuria, no hematuria, no flank pain MSK: No muscle cramping, + muscle weakness Neuro: No paresthesias, no focal deficits Skin: No rashes, no skin lesions Psych: No depression, no anxiety Vital Signs Current: 24 Hour: No data recorded Intake/Output: No intake/output data recorded. Physical examination: General: Awake, alert, answers most questions appropriately, no distress Eyes: Pupils equal, round, reactive to light, extraocular movements intact, normal conjunctiva HENT: Normocephalic, atraumatic, Supple, nontender, no carotid bruit Respiratory: Breath sounds equal bilaterally, decreased in the bases, no rhonchi or wheezing Cardiovascular: Normal rhythm, normal rate, currently with controlled rate, S1-S2 Gastrointestinal: Soft, nontender, nondistended, normoactive bowel sounds Integumentary: Warm, intact Genitourinary: Deferred MSK: No deformities, normal range of motion Neurologic: Mostly alert, answers questions appropriately Psychiatric: Cooperative, appropriate mood Vent / O2 Management: LABS No results found for this visit on 06/03/25 (from the past 24 hours). Radiology Radiology Results (last day) No results found for the last 24 hours. Microbiology: Microbiology Results (last 7 days) Procedure Component Value Units Date/Time Strep pneumoniae urine antigen [[id number]] Order Status: Sent Specimen: Urine, Unspecified Source Impression: Pulmonary -Chronic hypoxemic respiratory failure on 2 L -Former smoker, unknown pack years -BRIDGETTE -CT thoracic spine per report revealed mild infiltration in the right mid and lower lung: Possible pneumonia Cardiovascular -History of hypertension Infectious disease -Possible right mid/lower lung pneumonia GI -Obesity Endocrinology -Type 2 diabetes mellitus Renal -Acute kidney injury -Chronic kidney disease stage III -Hyperkalemia Hematology/oncology -Thrombocytopenia Neurologic -Acute metabolic encephalopathy Plan: -Supplemental O2, goal saturation 90 to 94% -Currently 2 L O2, baseline -Encourage incentive spirometry -DuoNebs -Pulmicort nebs -IVF: Normal saline 125 cc an hour -Obtain in-house labs -Urine sodium, protein, creatinine -Order renal ultrasound -Follow potassium level -Obtain chest x-ray -Glycemic control: SSIq6 -Strep/Legionella urine antigen -Given CT revealing right lung infiltration reasonable to start antimicrobial coverage -IV ceftriaxone and doxycycline -Pepcid for GI prophylaxis Will make further recommendations when results of ordered laboratory data returns. [id number] CODE STATUS: Full Cosigned by Peggy Richards MD at 06/14/2025 1:17 PM EDT documented in this encounter Miscellaneous Notes * Plan of Care - Emi Salguero RN - 06/11/2025 11:22 AM EDT Problem: Compromised Skin Integrity Goal: LTG - Patient will be free from infection Outcome: Progressing Goal: LTG - Patient will maintain/improve skin integrity through proper skin care techniques Outcome: Progressing Goal: LTG - Patient will demonstrate appropriate pressure relief techniques Outcome: Progressing Goal: LTG - Patient will demonstrate appropriate skin care techniques Outcome: Progressing Goal: LTG - Patient will be free from infection Outcome: Progressing Goal: STG - Patient demonstrates skin care/treatment/dressing change Outcome: Progressing Goal: STG - Patient will maintain good skin integrity Outcome: Progressing Goal: STG - Patient exhibits signs of wound healing. Outcome: Progressing Goal: STG - Patient demonstrates pressure reduction techniques Outcome: Progressing Goal: STG - Patient demonstrates preventative skin care measures Outcome: Progressing Problem: Knowledge Deficit Goal: Patient/family/caregiver demonstrates understanding of disease process, treatment plan, medications, and discharge instructions Description: Complete learning assessment and assess knowledge base. Outcome: Progressing Problem: Potential for Falls Goal: Patient will remain free of falls Description: Assess and monitor vitals signs, neurological status including level of consciousness and orientation. Reassess fall risk per hospital policy. Ensure arm band on, uncluttered walking paths in room, adequate room lighting, call light and overbed table within reach, bed in low position, wheels locked, side rails up per policy, and non-skid footwear provided. Outcome: Progressing Problem: Swallowing Goal: LTG - Patient will tolerate the least restrictive diet consistency to allow for safe consumption of daily meals Outcome: Progressing Problem: Risk for Falls Goal: No falls during hospitalization Description: Patient will not fall during hospitalization. Outcome: Progressing Problem: Knowledge Deficit Goal: Knowledge - personal safety Description: Patient will verbalize understanding of fall prevention. Outcome: Progressing * Plan of Care - Emi Salguero RN - 06/10/2025 12:33 PM EDT Problem: Compromised Skin Integrity Goal: LTG - Patient will be free from infection Outcome: Progressing Goal: LTG - Patient will maintain/improve skin integrity through proper skin care techniques Outcome: Progressing Goal: LTG - Patient will demonstrate appropriate pressure relief techniques Outcome: Progressing Goal: LTG - Patient will demonstrate appropriate skin care techniques Outcome: Progressing Goal: LTG - Patient will be free from infection Outcome: Progressing Goal: STG - Patient demonstrates skin care/treatment/dressing change Outcome: Progressing Goal: STG - Patient will maintain good skin integrity Outcome: Progressing Goal: STG - Patient exhibits signs of wound healing. Outcome: Progressing Goal: STG - Patient demonstrates pressure reduction techniques Outcome: Progressing Goal: STG - Patient demonstrates preventative skin care measures Outcome: Progressing Problem: Knowledge Deficit Goal: Patient/family/caregiver demonstrates understanding of disease process, treatment plan, medications, and discharge instructions Description: Complete learning assessment and assess knowledge base. Outcome: Progressing Problem: Potential for Falls Goal: Patient will remain free of falls Description: Assess and monitor vitals signs, neurological status including level of consciousness and orientation. Reassess fall risk per hospital policy. Ensure arm band on, uncluttered walking paths in room, adequate room lighting, call light and overbed table within reach, bed in low position, wheels locked, side rails up per policy, and non-skid footwear provided. Outcome: Progressing Problem: Swallowing Goal: LTG - Patient will tolerate the least restrictive diet consistency to allow for safe consumption of daily meals Outcome: Progressing Problem: Risk for Falls Goal: No falls during hospitalization Description: Patient will not fall during hospitalization. Outcome: Progressing Problem: Knowledge Deficit Goal: Knowledge - personal safety Description: Patient will verbalize understanding of fall prevention. Outcome: Progressing * Plan of Care - Bal Guallpa RN - 06/09/2025 5:43 PM EDT Problem: Compromised Skin Integrity Goal: LTG - Patient will be free from infection Outcome: Progressing Goal: LTG - Patient will maintain/improve skin integrity through proper skin care techniques Outcome: Progressing Goal: LTG - Patient will demonstrate appropriate pressure relief techniques Outcome: Progressing Goal: LTG - Patient will demonstrate appropriate skin care techniques Outcome: Progressing Goal: LTG - Patient will be free from infection Outcome: Progressing Goal: STG - Patient demonstrates skin care/treatment/dressing change Outcome: Progressing Goal: STG - Patient will maintain good skin integrity Outcome: Progressing Goal: STG - Patient exhibits signs of wound healing. Outcome: Progressing Goal: STG - Patient demonstrates pressure reduction techniques Outcome: Progressing Goal: STG - Patient demonstrates preventative skin care measures Outcome: Progressing Problem: Knowledge Deficit Goal: Patient/family/caregiver demonstrates understanding of disease process, treatment plan, medications, and discharge instructions Description: Complete learning assessment and assess knowledge base. Outcome: Progressing Problem: Potential for Falls Goal: Patient will remain free of falls Description: Assess and monitor vitals signs, neurological status including level of consciousness and orientation. Reassess fall risk per hospital policy. Ensure arm band on, uncluttered walking paths in room, adequate room lighting, call light and overbed table within reach, bed in low position, wheels locked, side rails up per policy, and non-skid footwear provided. Outcome: Progressing Problem: Swallowing Goal: LTG - Patient will tolerate the least restrictive diet consistency to allow for safe consumption of daily meals Outcome: Progressing Problem: Risk for Falls Goal: No falls during hospitalization Description: Patient will not fall during hospitalization. Outcome: Progressing Problem: Knowledge Deficit Goal: Knowledge - personal safety Description: Patient will verbalize understanding of fall prevention. Outcome: Progressing * Plan of Care - Melanie Copeland RN - 06/09/2025 1:21 AM EDT Problem: Compromised Skin Integrity Goal: LTG - Patient will be free from infection Outcome: Progressing Goal: LTG - Patient will maintain/improve skin integrity through proper skin care techniques Outcome: Progressing Goal: LTG - Patient will demonstrate appropriate pressure relief techniques Outcome: Progressing Goal: LTG - Patient will demonstrate appropriate skin care techniques Outcome: Progressing Goal: LTG - Patient will be free from infection Outcome: Progressing Goal: STG - Patient demonstrates skin care/treatment/dressing change Outcome: Progressing Goal: STG - Patient will maintain good skin integrity Outcome: Progressing Goal: STG - Patient exhibits signs of wound healing. Outcome: Progressing Goal: STG - Patient demonstrates pressure reduction techniques Outcome: Progressing Goal: STG - Patient demonstrates preventative skin care measures Outcome: Progressing Problem: Knowledge Deficit Goal: Patient/family/caregiver demonstrates understanding of disease process, treatment plan, medications, and discharge instructions Description: Complete learning assessment and assess knowledge base. Outcome: Progressing Problem: Potential for Falls Goal: Patient will remain free of falls Description: Assess and monitor vitals signs, neurological status including level of consciousness and orientation. Reassess fall risk per hospital policy. Ensure arm band on, uncluttered walking paths in room, adequate room lighting, call light and overbed table within reach, bed in low position, wheels locked, side rails up per policy, and non-skid footwear provided. Outcome: Progressing Problem: Swallowing Goal: LTG - Patient will tolerate the least restrictive diet consistency to allow for safe consumption of daily meals Outcome: Progressing * Plan of Care - Melony Acevedo CCC-BETTING CLERKS - 06/08/2025 10:42 AM EDT Problem: Swallowing Goal: LTG - Patient will tolerate the least restrictive diet consistency to allow for safe consumption of daily meals Outcome: Progressing * Plan of Care - Cassy Adams RN - 06/07/2025 4:38 PM EDT Problem: Compromised Skin Integrity Goal: LTG - Patient will be free from infection Outcome: Progressing Goal: LTG - Patient will maintain/improve skin integrity through proper skin care techniques Outcome: Progressing Goal: LTG - Patient will demonstrate appropriate pressure relief techniques Outcome: Progressing Goal: LTG - Patient will demonstrate appropriate skin care techniques Outcome: Progressing Goal: LTG - Patient will be free from infection Outcome: Progressing Goal: STG - Patient demonstrates skin care/treatment/dressing change Outcome: Progressing Goal: STG - Patient will maintain good skin integrity Outcome: Progressing Goal: STG - Patient exhibits signs of wound healing. Outcome: Progressing Goal: STG - Patient demonstrates pressure reduction techniques Outcome: Progressing Goal: STG - Patient demonstrates preventative skin care measures Outcome: Progressing Problem: Knowledge Deficit Goal: Patient/family/caregiver demonstrates understanding of disease process, treatment plan, medications, and discharge instructions Description: Complete learning assessment and assess knowledge base. Outcome: Progressing Problem: Potential for Falls Goal: Patient will remain free of falls Description: Assess and monitor vitals signs, neurological status including level of consciousness and orientation. Reassess fall risk per hospital policy. Ensure arm band on, uncluttered walking paths in room, adequate room lighting, call light and overbed table within reach, bed in low position, wheels locked, side rails up per policy, and non-skid footwear provided. Outcome: Progressing * Plan of Care - Johanny Araya RN - 06/06/2025 11:03 PM EDT Problem: Compromised Skin Integrity Goal: LTG - Patient will be free from infection Outcome: Progressing Goal: LTG - Patient will maintain/improve skin integrity through proper skin care techniques Outcome: Progressing Goal: LTG - Patient will demonstrate appropriate pressure relief techniques Outcome: Progressing Goal: LTG - Patient will demonstrate appropriate skin care techniques Outcome: Progressing Goal: LTG - Patient will be free from infection Outcome: Progressing Goal: STG - Patient demonstrates skin care/treatment/dressing change Outcome: Progressing Goal: STG - Patient will maintain good skin integrity Outcome: Progressing Goal: STG - Patient exhibits signs of wound healing. Outcome: Progressing Goal: STG - Patient demonstrates pressure reduction techniques Outcome: Progressing Goal: STG - Patient demonstrates preventative skin care measures Outcome: Progressing Problem: Knowledge Deficit Goal: Patient/family/caregiver demonstrates understanding of disease process, treatment plan, medications, and discharge instructions Description: Complete learning assessment and assess knowledge base. Outcome: Progressing Problem: Potential for Falls Goal: Patient will remain free of falls Description: Assess and monitor vitals signs, neurological status including level of consciousness and orientation. Reassess fall risk per hospital policy. Ensure arm band on, uncluttered walking paths in room, adequate room lighting, call light and overbed table within reach, bed in low position, wheels locked, side rails up per policy, and non-skid footwear provided. Outcome: Progressing * Plan of Care - Cassy Adams RN - 06/06/2025 3:41 PM EDT Problem: Compromised Skin Integrity Goal: LTG - Patient will be free from infection Outcome: Progressing Goal: LTG - Patient will maintain/improve skin integrity through proper skin care techniques Outcome: Progressing Goal: LTG - Patient will demonstrate appropriate pressure relief techniques Outcome: Not Progressing Goal: LTG - Patient will demonstrate appropriate skin care techniques Outcome: Not Progressing Goal: LTG - Patient will be free from infection Outcome: Progressing Goal: STG - Patient demonstrates skin care/treatment/dressing change Outcome: Not Progressing Goal: STG - Patient will maintain good skin integrity Outcome: Progressing Goal: STG - Patient exhibits signs of wound healing. Outcome: Progressing Goal: STG - Patient demonstrates pressure reduction techniques Outcome: Not Progressing Goal: STG - Patient demonstrates preventative skin care measures Outcome: Not Progressing Problem: Knowledge Deficit Goal: Patient/family/caregiver demonstrates understanding of disease process, treatment plan, medications, and discharge instructions Description: Complete learning assessment and assess knowledge base. Outcome: Not Progressing Problem: Potential for Falls Goal: Patient will remain free of falls Description: Assess and monitor vitals signs, neurological status including level of consciousness and orientation. Reassess fall risk per hospital policy. Ensure arm band on, uncluttered walking paths in room, adequate room lighting, call light and overbed table within reach, bed in low position, wheels locked, side rails up per policy, and non-skid footwear provided. Outcome: Progressing * Plan of Care - Matt Nascimento RN - 06/06/2025 12:53 AM EDT Problem: Compromised Skin Integrity Goal: LTG - Patient will be free from infection Outcome: Progressing Goal: LTG - Patient will maintain/improve skin integrity through proper skin care techniques Outcome: Progressing Goal: LTG - Patient will demonstrate appropriate pressure relief techniques Outcome: Progressing Goal: LTG - Patient will demonstrate appropriate skin care techniques Outcome: Progressing Goal: LTG - Patient will be free from infection Outcome: Progressing Goal: STG - Patient demonstrates skin care/treatment/dressing change Outcome: Progressing Goal: STG - Patient will maintain good skin integrity Outcome: Progressing Goal: STG - Patient exhibits signs of wound healing. Outcome: Progressing Goal: STG - Patient demonstrates pressure reduction techniques Outcome: Progressing Goal: STG - Patient demonstrates preventative skin care measures Outcome: Progressing Problem: Knowledge Deficit Goal: Patient/family/caregiver demonstrates understanding of disease process, treatment plan, medications, and discharge instructions Description: Complete learning assessment and assess knowledge base. Outcome: Progressing Problem: Potential for Falls Goal: Patient will remain free of falls Description: Assess and monitor vitals signs, neurological status including level of consciousness and orientation. Reassess fall risk per hospital policy. Ensure arm band on, uncluttered walking paths in room, adequate room lighting, call light and overbed table within reach, bed in low position, wheels locked, side rails up per policy, and non-skid footwear provided. Outcome: Progressing * Plan of Care - Za May RN - 06/05/2025 1:37 PM EDT Problem: Compromised Skin Integrity Goal: LTG - Patient will be free from infection Outcome: Progressing Goal: LTG - Patient will maintain/improve skin integrity through proper skin care techniques Outcome: Progressing Goal: LTG - Patient will demonstrate appropriate pressure relief techniques Outcome: Progressing Goal: LTG - Patient will demonstrate appropriate skin care techniques Outcome: Progressing Goal: LTG - Patient will be free from infection Outcome: Progressing Goal: STG - Patient demonstrates skin care/treatment/dressing change Outcome: Progressing Goal: STG - Patient will maintain good skin integrity Outcome: Progressing Goal: STG - Patient exhibits signs of wound healing. Outcome: Progressing Goal: STG - Patient demonstrates pressure reduction techniques Outcome: Progressing Goal: STG - Patient demonstrates preventative skin care measures Outcome: Progressing Problem: Knowledge Deficit Goal: Patient/family/caregiver demonstrates understanding of disease process, treatment plan, medications, and discharge instructions Description: Complete learning assessment and assess knowledge base. Outcome: Progressing Problem: Potential for Falls Goal: Patient will remain free of falls Description: Assess and monitor vitals signs, neurological status including level of consciousness and orientation. Reassess fall risk per hospital policy. Ensure arm band on, uncluttered walking paths in room, adequate room lighting, call light and overbed table within reach, bed in low position, wheels locked, side rails up per policy, and non-skid footwear provided. Outcome: Progressing * Plan of Care - Wanda Yin RN - 06/04/2025 11:08 PM EDT Problem: Compromised Skin Integrity Goal: LTG - Patient will be free from infection Outcome: Progressing Goal: LTG - Patient will maintain/improve skin integrity through proper skin care techniques Outcome: Progressing Goal: LTG - Patient will demonstrate appropriate pressure relief techniques Outcome: Progressing Goal: LTG - Patient will demonstrate appropriate skin care techniques Outcome: Progressing Goal: LTG - Patient will be free from infection Outcome: Progressing Goal: STG - Patient demonstrates skin care/treatment/dressing change Outcome: Progressing Goal: STG - Patient will maintain good skin integrity Outcome: Progressing Goal: STG - Patient exhibits signs of wound healing. Outcome: Progressing Goal: STG - Patient demonstrates pressure reduction techniques Outcome: Progressing Goal: STG - Patient demonstrates preventative skin care measures Outcome: Progressing Problem: Knowledge Deficit Goal: Patient/family/caregiver demonstrates understanding of disease process, treatment plan, medications, and discharge instructions Description: Complete learning assessment and assess knowledge base. Outcome: Progressing Problem: Potential for Falls Goal: Patient will remain free of falls Description: Assess and monitor vitals signs, neurological status including level of consciousness and orientation. Reassess fall risk per hospital policy. Ensure arm band on, uncluttered walking paths in room, adequate room lighting, call light and overbed table within reach, bed in low position, wheels locked, side rails up per policy, and non-skid footwear provided. Outcome: Progressing * Plan of Care - Za May RN - 06/04/2025 4:59 PM EDT Problem: Compromised Skin Integrity Goal: LTG - Patient will be free from infection Outcome: Progressing Goal: LTG - Patient will maintain/improve skin integrity through proper skin care techniques Outcome: Progressing Goal: LTG - Patient will demonstrate appropriate pressure relief techniques Outcome: Progressing Goal: LTG - Patient will demonstrate appropriate skin care techniques Outcome: Progressing Goal: LTG - Patient will be free from infection Outcome: Progressing Goal: STG - Patient demonstrates skin care/treatment/dressing change Outcome: Progressing Goal: STG - Patient will maintain good skin integrity Outcome: Progressing Goal: STG - Patient exhibits signs of wound healing. Outcome: Progressing Goal: STG - Patient demonstrates pressure reduction techniques Outcome: Progressing Goal: STG - Patient demonstrates preventative skin care measures Outcome: Progressing Problem: Knowledge Deficit Goal: Patient/family/caregiver demonstrates understanding of disease process, treatment plan, medications, and discharge instructions Description: Complete learning assessment and assess knowledge base. Outcome: Progressing Problem: Potential for Falls Goal: Patient will remain free of falls Description: Assess and monitor vitals signs, neurological status including level of consciousness and orientation. Reassess fall risk per hospital policy. Ensure arm band on, uncluttered walking paths in room, adequate room lighting, call light and overbed table within reach, bed in low position, wheels locked, side rails up per policy, and non-skid footwear provided. Outcome: Progressing * ACP (Advance Care Planning) - Miles Sierra - 06/04/2025 9:32 AM EDTSummary: Durable Power of Privacy Compliance Manager Durable Power of Privacy Compliance Manager was received from CM. Mia Oni is the primary and Minerva Broussard is the alternate. scanned one copy in the PT's electronic chart. documented in this encounter Plan of Treatment Not on file documented as of this encounter Procedures Procedure Name Priority Date/Time Associated Diagnosis Comments NOVA GLUCOSE POC Routine 06/11/2025 3:46 PM EDT NOVA GLUCOSE POC Routine 06/11/2025 11:0 3 AM EDT NOVA GLUCOSE POC Routine 06/11/2025 5:21 AM EDT CBC W/ AUTO DIFF Routine 06/11/2025 4:35 AM EDT BASIC METABOLIC PANEL Routine 06/11/2025 4:35 AM EDT NOVA GLUCOSE POC Routine 06/10/2025 7:54 PM EDT NOVA GLUCOSE POC Routine 06/10/2025 3:36 PM EDT POTASSIUM Routine 06/10/2025 11:08 AM EDT NOVA GLUCOSE POC Routine 06/10/2025 10:3 7 AM EDT FS_MODEL_IP_ECG 12-LEAD Routine 06/10/2025 9:57 AM EDT NOVA GLUCOSE POC Routine 06/10/2025 6:05 AM EDT CBC W/ AUTO DIFF Routine 06/10/2025 3:43 AM EDT MAGNESIUM Routine 06/10/2025 3:43 AM EDT BASIC METABOLIC PANEL Routine 06/10/2025 3:43 AM EDT NOVA GLUCOSE POC Routine 06/09/2025 8:49 PM EDT NOVA GLUCOSE POC Routine 06/09/2025 5:50 PM EDT NOVA GLUCOSE POC Routine 06/09/2025 11:4 3 AM EDT CBC W/ AUTO DIFF Routine 06/09/2025 7:2 4 AM EDT MAGNESIUM Routine 06/09/2025 7:24 AM EDT BASIC METABOLIC PANEL Routine 06/09/2025 7:24 AM EDT NOVA GLUCOSE POC Routine 06/09/2025 6:13 AM EDT NOVA GLUCOSE POC Routine 06/09/2025 12:2 8 AM EDT XR ABDOMEN/KUB 1 VIEW PORTABLE STAT 06/08/2025 10:23 PM EDT NOVA GLUCOSE POC Routine 06/08/2025 6:27 PM EDT BASIC METABOLIC PANEL Routine 06/08/2025 2:55 PM EDT NOVA GLUCOSE POC Routine 06/08/2025 12:0 3 PM EDT XR ABDOMEN/KUB 1 VIEW PORTABLE STAT 06/08/2025 11:47 AM EDT NOVA GLUCOSE POC Routine 06/08/2025 5:53 AM EDT CBC W/ AUTO DIFF Routine 06/08/2025 2:55 AM EDT BASIC METABOLIC PANEL Routine 06/08/2025 2:55 AM EDT NOVA GLUCOSE POC Routine 06/07/2025 11:4 0 PM EDT NOVA GLUCOSE POC Routine 06/07/2025 5:44 PM EDT XR CHEST AP PORTABLE STAT 06/07/2025 2:31 PM EDT NOVA GLUCOSE POC Routine 06/07/2025 11:2 9 AM EDT FS_MODEL_IP_ECG 12-LEAD Routine 06/07/2025 7:49 AM EDT NOVA GLUCOSE POC Routine 06/07/2025 6:21 AM EDT CBC W/ AUTO DIFF Routine 06/07/2025 4:23 AM EDT MAGNESIUM Routine 06/07/2025 4:23 AM EDT BASIC METABOLIC PANEL Routine 06/07/2025 4:23 AM EDT XR CHEST AP PORTABLE Routine 06/07/2025 2:55 AM EDT NOVA GLUCOSE POC Routine 06/07/2025 12:0 6 AM EDT FS_MODEL_IP_ECG 12-LEAD Routine 06/06/2025 8:45 PM EDT NOVA GLUCOSE POC Routine 06/06/2025 4:38 PM EDT NOVA GLUCOSE POC Routine 06/06/2025 11:3 6 AM EDT FS_MODEL_IP_ECG 12-LEAD Routine 06/06/2025 7:24 AM EDT NOVA GLUCOSE POC Routine 06/06/2025 6:24 AM EDT CBC W/ AUTO DIFF Routine 06/06/2025 4:24 AM EDT MAGNESIUM Routine 06/06/2025 4:24 AM EDT BASIC METABOLIC PANEL Routine 06/06/2025 4:24 AM EDT NOVA GLUCOSE POC Routine 06/06/2025 12:1 6 AM EDT NOVA GLUCOSE POC Routine 06/05/2025 9:34 PM EDT NOVA GLUCOSE POC Routine 06/05/2025 5:29 PM EDT XR ABDOMEN/KUB 1 VIEW PORTABLE STAT 06/05/2025 12:37 PM EDT NOVA GLUCOSE POC Routine 06/05/2025 11:[address] CHEST WITHOUT IV CONTRAST Routine 06/05/2025 11:11 AM EDT FS_MODEL_IP_ECG 12-LEAD Routine 06/05/2025 8:06 AM EDT NOVA GLUCOSE POC Routine 06/05/2025 6:10 AM EDT CBC W/ AUTO DIFF Routine 06/05/2025 4:48 AM EDT BASIC METABOLIC PANEL Routine 06/05/2025 4:48 AM EDT FS_MODEL_IP_ECG 12-LEAD Routine 06/05/2025 3:09 AM EDT NOVA GLUCOSE POC Routine 06/04/2025 8:47 PM EDT FS_MODEL_IP_ECG 12-LEAD Routine 06/04/2025 7:49 PM EDT URINALYSIS W/ MICROSCOPIC Routine 06/04/2025 6:56 PM EDT RENAL FUNCTION PANEL STAT 06/04/2025 5:59 PM EDT NOVA GLUCOSE POC Routine 06/04/2025 5:48 PM EDT XR ABDOMEN/KUB 1 VIEW PORTABLE STAT 06/04/2025 2:58 PM EDT US RENAL LIMITED Routine 06/04/2025 1:28 PM EDT RESPIRATORY PANEL ARMANDO 06/04/2025 1:2 3 PM EDT MRSA SCREEN ARMANDO 06/04/2025 1:23 PM EDT ECHO COMPLETE (DOPPLER / COLOR) W CONTRAST Routine 06/04/2025 1:05 PM EDT NOVA GLUCOSE POC Routine 06/04/2025 11:3 7 AM EDT RENAL FUNCTION PANEL STAT 06/04/2025 10:58 AM EDT [id number] ACTIVITY(SENDOUT) Routine 06/04/2025 10:58 AM EDT SHAYAN REFLEXIVE PROFILE(SENDOUT) Routine 06/04/2025 10:57 AM EDT COMPLEMENT COMPONENTS 3 AND 4(SENDOUT) Routine 06/04/2025 10:53 AM EDT XR CHEST AP PORTABLE Routine 06/04/2025 9:07 AM EDT FS_MODEL_IP_ECG 12-LEAD Routine 06/04/2025 7:16 AM EDT NOVA GLUCOSE POC Routine 06/04/2025 5:56 AM EDT PROCALCITONIN Add-On 06/04/2025 5:02 AM EDT PROBNP Add-On 06/04/2025 5:02 AM EDT IRON AND TIBC Routine 06/04/2025 5:02 AM EDT MAGNESIUM Routine 06/04/2025 5:02 AM EDT LACTATE DEHYDROGENASE (LDH) Add-On 06/04/2025 5:02 AM EDT FERRITIN Routine 06/04/2025 5:02 AM EDT VITAMIN B12 Routine 06/04/2025 5:02 AM EDT COMPREHENSIVE METABOLIC PANEL Routine 06/04/2025 5:02 AM EDT CBC W/ AUTO DIFF Routine 06/04/2025 4:41 AM EDT XR CHEST AP PORTABLE ARMANDO 06/04/2025 1:49 AM EDT STREP PNEUMONIAE URINE ANTIGEN Routine 06/03/2025 11:50 PM EDT UREA NITROGEN, RANDOM URINE Routine 06/03/2025 11:50 PM EDT LEGIONELLA ANTIGEN, URINE Routine 06/03/2025 11:50 PM EDT SODIUM, RANDOM URINE Routine 06/03/2025 11:50 PM EDT PROTEIN, RANDOM URINE Routine 06/03/2025 11:50 PM EDT CREATININE, RANDOM URINE Routine 06/03/2025 11:50 PM EDT CHLORIDE, RANDOM URINE Routine 11:50 PM EDT PHOSPHORUS STAT 06/03/2025 11:43 PM EDT MAGNESIUM STAT 06/03/2025 11:43 PM EDT CREATINE KINASE (CK) Routine 06/03/2025 11:43 PM EDT BASIC METABOLIC PANEL STAT 06/03/2025 11:43 PM EDT [facility] CBC SCAN Routine 06/03/2025 11:42 PM EDT CBC W/ AUTO DIFF STAT 06/03/2025 11:4 2 PM EDT LACTIC ACID WITH REFLEX STAT 06/03/2025 11:42 PM EDT EKG-SCANNED 06/03/2025 EKG-SCANNED 06/03/2025 documented in this encounter Results * Glucose, Nova Meter (06/11/2025 3:46 PM EDT) POC-GLUCOSE 86 70 - 110 mg/dL 06/11/2025 3:55 PM EDT [facility] Comment:In the event of poor peripheral blood flow, venous or arterial blood should be used due to the potential of erroneous results. Electric Organ Checker [id number] 06/11/2025 3:55 PM EDT [facility] Blood WHOLE BLOOD / Unknown 06/11/2025 3:46 PM EDT 06/11/2025 3:55 PM EDT Narrative [facility] - 06/11/2025 3:55 PM EDT Notified RN/MD us Charity Steiner MD POINT OF CARE TEST ORDERABLES Fi nal Result [facility] [address] [place], [place] [address] [phone] * Glucose, Nova Meter (06/11/2025 11:03 AM EDT) POC-GLUCOSE 87 70 - 110 mg/dL 06/11/2025 11:11 AM EDT [facility] Comment:In the event of poor peripheral blood flow, venous or arterial blood should be used due to the potential of erroneous results. Electric Organ Checker [id number] 06/11/2025 11:11 AM EDT [facility] Blood WHOLE BLOOD / Unknown 06/11/2025 11:03 AM EDT 06/11/2025 11:11 AM EDT Narrative [facility] - 06/11/2025 11:11 AM EDT Notified RN/MD us Charity Steiner MD POINT OF CARE TEST ORDERABLES Fi nal Result Performing Organization Address [facility] Co de Phone Number [facility] [address] [phone] * Glucose, Nova Meter (06/11/2025 5:21 AM EDT) Pathologist [facility] [place] POC-GLUCOSE 90 70 - 110 mg/dL 06/11/2025 5:29 AM EDT [facility] Comment:In the event of poor peripheral blood flow, venous or arterial blood should be used due to the potential of erroneous results. Electric Organ Checker [id number] 06/11/2025 5:29 AM EDT [facility] Blood WHOLE BLOOD / Unknown 06/11/2025 5:21 AM EDT 06/11/2025 5:29 AM EDT Narrative [facility] - 06/11/2025 5:29 AM EDT Notified RN/MD us Charity Steiner MD POINT OF CARE TEST ORDERABLES Fi nal Result Performing Organization Address City/[facility]/ZIP Co de Phone Number [facility] [address] [phone] * (ABNORMAL) CBC with automated diff (06/11/2025 4:35 AM EDT) WBC 6.0 4.0 - 10.0 K/ L 06/11/2025 5:07 AM EDT [facility] RBC 3.11(L) 3.93 - 5.22 M/ L 06/11/2025 5:07 AM EDT [facility] Hemoglobin 9.4(L) 11.2 - 15.7 GM/DL 06/11/2025 5:07 AM EDT [facility] Hematocrit 28.5(L) 34.1 - 44.9 % 06/11/2025 5:07 AM EDT [facility] MCV 92 79 - 95 fL 06/11/2025 5:07 AM EDT [facility] MCH 30.2 25.6 - 32.2 pg 06/11/2025 5:07 AM EDT [facility] MCHC 33.0 32.2 - 35.5 GM/DL 06/11/2025 5:07 AM EDT [facility] RDW 16.9(H) 11.7 - 14.4 % 06/11/2025 5:07 AM EDT [facility] Platelets 246 140 - 375 K/CU MM 06/11/2025 5:07 AM EDT [facility] MPV 11.7 9.4 - 12.3 fL 06/11/2025 5:07 AM EDT [facility] % Neutros 60 34 - 71 % 06/11/2025 5:07 AM EDT [facility] % Lymphs 20 19 - 52 % 06/11/2025 5:07 AM EDT [facility] % Monos 13 5 - 13 % 06/11/2025 5:07 AM EDT [facility] % Eos 3.7 1.0 - 6.0 % 06/11/2025 5:07 AM EDT [facility] % Baso 1 0 - 1 % 06/11/2025 5:07 AM EDT [facility] NRBC Absolute <0.01 0 - 0.012 K/ul 06/11/2025 5:07 AM EDT [facility] # Neutros 3.59 1.56 - 6.13 K/ L 06/11/2025 5:07 AM EDT [facility] # Lymphs 1.18 1.18 - 3.74 K/ L 06/11/2025 5:07 AM EDT [facility] # Monos 0.78 0.24 - 0.86 K/ L 06/11/2025 5:07 AM EDT [facility] # Eos 0.22 0.04 - 0.36 K/ L 06/11/2025 5:07 AM EDT [facility] # Baso 0.04 0.01 - 0.08 K/ L 06/11/2025 5:07 AM EDT [facility] % Imm Grans 3.50(H) 0.01 - 0.43 % 06/11/2025 5:07 AM EDT [facility] # IG 0.21(H) 0.00 - 0.03 K/uL 06/11/2025 5:07 AM EDT [facility] Blood Venipuncture / Unknown 06/11/2025 4:35 AM EDT 06/11/2025 4:54 AM EDT Narrative [facility] - 06/11/2025 5:07 AM EDT When CBC w/ Auto Diff is ordered the lab will add a Manual Differential as a quality check at no additional charge if: Lymphocytes greater than seventy five percent with normal or increased WBC Monocytes greater than Fifteen percent Basophil greater than four percent Bands >10% or several immature myeloids are seen on scan Blast? Flag noted Atypical Lymph flag noted us Charity Steiner MD LAB BLOOD ORDERABLES Final Resul t [facility] [address] [phone] * (ABNORMAL) Basic Metabolic Panel (06/11/2025 4:35 AM EDT) Sodium 142 136 - 145 meq/L 06/11/2025 5:24 AM EDT [facility] Potassium 4.2 3.4 - 5.1 meq/L 06/11/2025 5:24 AM EDT [facility] CO2 28 22 - 29 meq/L 06/11/2025 5:24 AM EDT [facility] Chloride 102 98 - 112 meq/L 06/11/2025 5:24 AM EDT [facility] Glucose 82 82 - 115 mg/dL 06/11/2025 5:24 AM EDT [facility] BUN 54.3(H) 9.8 - 20.1 mg/dL 06/11/2025 5:24 AM EDT [facility] Creatinine 2.40(H) 0.50 - 1.20 mg/dL 06/11/2025 5:24 AM EDT [facility] BUN/Creatinine 23(H) 8 - 20 06/11/2025 5:24 AM EDT [facility] Calcium 9.2 8.4 - 10.2 mg/dL 06/11/2025 5:24 AM EDT [facility] Anion Gap 16(H) 4 - 12 06/11/2025 5:24 AM EDT [facility] eGFR (mL/min/1.73m2) 19(L) >=60 mL/min/1.7 3m2 06/11/2025 5:24 AM EDT [facility] Comment:ESTIMATED GFR IS NOT ACCURATE CREATININE CLEARANCE IN PREDICTING GLOMERULAR FILTRATION RATE. ESTIMATED GFR IS NOT APPLICABLE FOR DIALYSIS PATIENTS. Osmolality Calc 297.1 mOsm/kg 5:24 AM EDT [facility] Blood Venipuncture / Unknown 06/11/2025 4:35 AM EDT 06/11/2025 4:52 AM EDT us Charity Steiner MD LAB BLOOD ORDERABLES Final Resul t [facility] [address] [phone] * (ABNORMAL) Glucose, Nova Meter (06/10/2025 7:54 PM EDT) POC-GLUCOSE 114(H) 70 - 110 mg/dL 06/10/2025 8:03 PM EDT [facility] Comment:In the event of poor peripheral blood flow, venous or arterial blood should be used due to the potential of erroneous results. Electric Organ Checker [id number] 06/10/2025 8:03 PM EDT [facility] Blood WHOLE BLOOD / Unknown 06/10/2025 7:54 PM EDT 06/10/2025 8:03 PM EDT Narrative [facility] - 06/10/2025 8:03 PM EDT Notified RN/MD us Charity Steiner MD POINT OF CARE TEST ORDERABLES Fi nal Result Performing Organization Address [facility]/ZIP Co de Phone Number [facility] [address] [place] [address], [facility] [phone] * Glucose, Nova Meter (06/10/2025 3:36 PM EDT) Pathologist [facility] [place] POC-GLUCOSE 98 70 - 110 mg/dL 06/10/2025 3:45 PM EDT [facility] Comment:In the event of poor peripheral blood flow, venous or arterial blood should be used due to the potential of erroneous results. Electric Organ Checker [id number] 06/10/2025 3:45 PM EDT [facility] Blood WHOLE BLOOD / Unknown 06/10/2025 3:36 PM EDT 06/10/2025 3:45 PM EDT Narrative [facility] - 06/10/2025 3:45 PM EDT Notified RN/MD us Charity Steiner MD POINT OF CARE TEST ORDERABLES Fi nal Result Performing Organization Address [facility]/ZIP Co de Phone Number [facility] [address] [phone] * Potassium (06/10/2025 11:08 AM EDT) Pathologist [facility] [place] Potassium 3.9 3.4 - 5.1 meq/L 06/10/2025 1:48 PM EDT [facility] Blood Venipuncture / Unknown 06/10/2025 11:08 AM EDT 06/10/2025 11:11 AM EDT us Charity Steiner MD LAB BLOOD ORDERABLES Final Resul t [facility] 1 [place] [address], [facility] [phone] * Glucose, Nova Meter (06/10/2025 10:37 AM EDT) [facility] POC-GLUCOSE 97 70 - 110 mg/dL 06/10/2025 10:46 AM EDT [facility] Comment:In the event of poor peripheral blood flow, venous or arterial blood should be used due to the potential of erroneous results. Electric Organ Checker [id number] 06/10/2025 10:46 AM EDT [facility] Blood WHOLE BLOOD / Unknown 06/10/2025 10:37 AM EDT 06/10/2025 10:46 AM EDT Narrative [facility] - 06/10/2025 10:46 AM EDT Notified RN/MD Charity Steiner MD POINT OF CARE TEST ORDERABLES Fi nal Result Performing Organization Address City/[facility]/ZIP Co de Phone Number [facility] [address] [phone] * ECG 12 lead (06/10/2025 9:57 AM EDT) [facility] VENTRICULAR RATE EKG/MIN 56 BPM GE MUSE ATRIAL RATE (MCT) 56 BPM GE MUSE GA Interval 228 ms GE MUSE QRS-INTERVAL (MSEC) 126 ms GE MUSE QT Interval 450 ms GE MUSE QTC Interval 434 ms GE MUSE P [place] 8 degrees GE MUSE R AXIS (MCT) 25 degrees GE MUSE T Wave [place] 0 degrees GE MUSE [place] Diagnosis Sinus bradycardia with 1st degree AV block Right bundle branch block Abnormal ECG When compared with ECG of 07-JUN-2025 07:49, premature supraventricular complexes are no longer present Criteria for Anterior infarct are no longer present Nonspecific T wave abnormality, improved in Lateral leads Confirmed by Brandyn LAO STEVE ([id number]) on 06/11/2025 12:09:29 AM GE MUSE 06/10/2025 9:57 AM EDT 06/11/2025 12:09 AM EDT Charity Steiner MD ECG ORDERABLES Final Result Performing Organization Address [facility] Co de Phone Number GE MUSE * Glucose, Nova Meter (06/10/2025 6:05 AM EDT) POC-GLUCOSE 83 70 - 110 mg/dL 06/10/2025 6:13 AM EDT [facility] Comment:In the event of poor peripheral blood flow, venous or arterial blood should be used due to the potential of erroneous results. Electric Organ Checker [id number] 06/10/2025 6:13 AM EDT [facility] Blood WHOLE BLOOD / Unknown 06/10/2025 6:05 AM EDT 06/10/2025 6:13 AM EDT Narrative [facility] - 06/10/2025 6:13 AM EDT Notified RN/MD us Charity Steiner MD POINT OF CARE TEST ORDERABLES Fi nal Result [facility] [address] [phone] * Magnesium (06/10/2025 3:43 AM EDT) Magnesium 1.6 1.6 - 2.6 mg/dL 06/10/2025 4:21 AM EDT [facility] Blood Venipuncture / Unknown 06/10/2025 3:43 AM EDT 06/10/2025 3:56 AM EDT us Charity Steiner MD LAB BLOOD ORDERABLES Final Resul t Performing Organization Address [facility]/ZIP Co de Phone Number [facility] [address] [phone] * (ABNORMAL) CBC with automated diff (06/10/2025 3:43 AM EDT) WBC 4.6 4.0 - 10.0 K/ L 06/10/2025 4:09 AM EDT [facility] RBC 3.10(L) 3.93 - 5.22 M/ L 06/10/2025 4:09 AM EDT [facility] Hemoglobin 8.6(L) 11.2 - 15.7 GM/DL 06/10/2025 4:09 AM EDT [facility] Hematocrit 28.7(L) 34.1 - 44.9 % 06/10/2025 4:09 AM EDT [facility] MCV 93 79 - 95 fL 06/10/2025 4:09 AM EDT [facility] MCH 27.7 25.6 - 32.2 pg 06/10/2025 4:09 AM EDT [facility] MCHC 30.0(L) 32.2 - 35.5 GM/DL 06/10/2025 4:09 AM EDT [facility] RDW 16.6(H) 11.7 - 14.4 % 06/10/2025 4:09 AM EDT [facility] Platelets 68(L) 140 - 375 K/CU MM 06/10/2025 4:09 AM EDT [facility] MPV 12.3 9.4 - 12.3 fL 06/10/2025 4:09 AM EDT [facility] % Neutros 64 34 - 71 % 06/10/2025 4:09 AM EDT [facility] % Lymphs 19 19 - 52 % 06/10/2025 4:09 AM EDT [facility] % Monos 12 5 - 13 % 06/10/2025 4:09 AM EDT [facility] % Eos 1.7 1.0 - 6.0 % 06/10/2025 4:09 AM EDT [facility] % Baso 0 0 - 1 % 06/10/2025 4:09 AM EDT [facility] NRBC Absolute <0.01 0 - 0.012 K/ul 06/10/2025 4:09 AM EDT [facility] # Neutros 2.94 1.56 - 6.13 K/ L 06/10/2025 4:09 AM EDT [facility] # Lymphs 0.86(L) 1.18 - 3.74 K/ L 06/10/2025 4:09 AM EDT [facility] # Monos 0.54 0.24 - 0.86 K/ L 06/10/2025 4:09 AM EDT [facility] # Eos 0.08 0.04 - 0.36 K/ L 06/10/2025 4:09 AM EDT [facility] # Baso <0.03 0.01 - 0.08 K/ L 06/10/2025 4:09 AM EDT [facility] % Imm Grans 4.30(H) 0.01 - 0.43 % 06/10/2025 4:09 AM EDT [facility] # IG 0.20(H) 0.00 - 0.03 K/uL 06/10/2025 4:09 AM EDT [facility] Blood Venipuncture / Unknown 06/10/2025 3:43 AM EDT 06/10/2025 3:56 AM EDT Narrative [facility] - 06/10/2025 4:09 AM EDT When CBC w/ Auto Diff is ordered the lab will add a Manual Differential as a quality check at no additional charge if: Lymphocytes greater than seventy five percent with normal or increased WBC Monocytes greater than Fifteen percent Basophil greater than four percent Bands >10% or several immature myeloids are seen on scan Blast? Flag noted Atypical Lymph flag noted us Charity Steiner MD LAB BLOOD ORDERABLES Final Resul t [facility] [address] [phone] * (ABNORMAL) Basic Metabolic Panel (06/10/2025 3:43 AM EDT) Sodium 143 136 - 145 meq/L 06/10/2025 4:21 AM EDT [facility] Potassium 3.7 3.4 - 5.1 meq/L 06/10/2025 4:21 AM EDT [facility] CO2 32(H) 22 - 29 meq/L 06/10/2025 4:21 AM EDT [facility] Chloride 102 98 - 112 meq/L 06/10/2025 4:21 AM EDT [facility] Glucose 88 82 - 115 mg/dL 06/10/2025 4:21 AM EDT [facility] BUN 57.3(H) 9.8 - 20.1 mg/dL 06/10/2025 4:21 AM EDT [facility] Creatinine 2.47(H) 0.50 - 1.20 mg/dL 06/10/2025 4:21 AM EDT [facility] BUN/Creatinine 23(H) 8 - 20 06/10/2025 4:21 AM EDT [facility] Calcium 9.2 8.4 - 10.2 mg/dL 06/10/2025 4:21 AM EDT [facility] Anion Gap 13(H) 4 - 12 06/10/2025 4:21 AM EDT [facility] eGFR (mL/min/1.73m2) 19(L) >=60 mL/min/1.7 3m2 06/10/2025 4:21 AM EDT [facility] Comment:ESTIMATED GFR IS NOT ACCURATE CREATININE CLEARANCE IN PREDICTING GLOMERULAR FILTRATION RATE. ESTIMATED GFR IS NOT APPLICABLE FOR DIALYSIS PATIENTS. Osmolality Calc 300.3 mOsm/kg 4:21 AM EDT [facility] Blood Venipuncture / Unknown 06/10/2025 3:43 AM EDT 06/10/2025 3:56 AM EDT us Charity Steiner MD LAB BLOOD ORDERABLES Final Resul t [facility] [address] [place] [address] * (ABNORMAL) Glucose, Nova Meter (06/09/2025 8:49 PM EDT) POC-GLUCOSE 159(H) 70 - 110 mg/dL 06/09/2025 8:57 PM EDT [facility] Comment:In the event of poor peripheral blood flow, venous or arterial blood should be used due to the potential of erroneous results. Electric Organ Checker [id number] 06/09/2025 8:57 PM EDT [facility] Blood WHOLE BLOOD / Unknown 06/09/2025 8:49 PM EDT 06/09/2025 8:57 PM EDT Narrative [facility] - 06/09/2025 8:57 PM EDT Notified RN/MD us Charity Steiner MD POINT OF CARE TEST ORDERABLES Fi nal Result Performing Organization Address [facility] Co de Phone Number [facility] [address] [phone] * (ABNORMAL) Glucose, Nova Meter (06/09/2025 5:50 PM EDT) POC-GLUCOSE 121(H) 70 - 110 mg/dL 06/09/2025 5:59 PM EDT [facility] Comment:In the event of poor peripheral blood flow, venous or arterial blood should be used due to the potential of erroneous results. Electric Organ Checker [id number] 06/09/2025 5:59 PM EDT [facility] Blood WHOLE BLOOD / Unknown 06/09/2025 5:50 PM EDT 06/09/2025 5:59 PM EDT [facility] - 06/09/2025 5:59 PM EDT Notified RN/MD us Charity Steiner MD POINT OF CARE TEST ORDERABLES Fi nal Result Performing Organization Address [facility] de Phone Number [facility] [address] [phone] * (ABNORMAL) Glucose, Nova Meter (06/09/2025 11:43 AM EDT) POC-GLUCOSE 134(H) 70 - 110 mg/dL 06/09/2025 11:47 AM EDT [facility] Comment: In the event of poor peripheral blood flow, venous or arterial blood should be used due to the potential of erroneous results. Notified Nurse RBV Protocols Followed Electric Organ Checker [id number] 06/09/2025 11:47 AM EDT [facility] Blood WHOLE BLOOD / Unknown 06/09/2025 11:43 AM EDT 06/09/2025 11:47 AM EDT [facility] - 06/09/2025 11:47 AM EDT Electric Organ Checker ID is - [id number] us Charity Steiner MD POINT OF CARE TEST ORDERABLES Fi nal Result [facility] [address] [phone] * Magnesium (06/09/2025 7:24 AM EDT) Pathologist [facility] [place] Magnesium 1.8 1.6 - 2.6 mg/dL 06/09/2025 7:44 AM EDT [facility] Blood Venipuncture / Unknown 06/09/2025 7:24 AM EDT 06/09/2025 7:26 AM EDT us Charity Steiner MD LAB BLOOD ORDERABLES Final Resul t Performing Organization Address [facility]/State/ZIP Co de Phone Number [facility] [address] [phone] * (ABNORMAL) CBC with automated diff (06/09/2025 7:24 AM EDT) [facility] WBC 5.3 4.0 - 10.0 K/ L 06/09/2025 7:32 AM EDT [facility] RBC 3.25(L) 3.93 - 5.22 M/ L 06/09/2025 7:32 AM EDT [facility] Hemoglobin 9.2(L) 11.2 - 15.7 GM/DL 06/09/2025 7:32 AM EDT [facility] Hematocrit 30.0(L) 34.1 - 44.9 % 06/09/2025 7:32 AM EDT [facility] MCV 92 79 - 95 fL 06/09/2025 7:32 AM EDT [facility] MCH 28.3 25.6 - 32.2 pg 06/09/2025 7:32 AM EDT [facility] MCHC 30.7(L) 32.2 - 35.5 GM/DL 06/09/2025 7:32 AM EDT [facility] RDW 16.6(H) 11.7 - 14.4 % 06/09/2025 7:32 AM EDT [facility] Platelets 71(L) 140 - 375 K/CU MM 06/09/2025 7:32 AM EDT [facility] MPV 11.1 9.4 - 12.3 fL 06/09/2025 7:32 AM EDT [facility] % Neutros 69 34 - 71 % 06/09/2025 7:32 AM EDT [facility] % Lymphs 16(L) 19 - 52 % 06/09/2025 7:32 AM EDT [facility] % Monos 10 5 - 13 % 06/09/2025 7:32 AM EDT [facility] % Eos 2.5 1.0 - 6.0 % 06/09/2025 7:32 AM EDT [facility] % Baso 0 0 - 1 % 06/09/2025 7:32 AM EDT [facility] NRBC Absolute <0.01 0 - 0.012 K/ul 06/09/2025 7:32 AM EDT [facility] # Neutros 3.65 1.56 - 6.13 K/ L 06/09/2025 7:32 AM EDT [facility] # Lymphs 0.85(L) 1.18 - 3.74 K/ L 06/09/2025 7:32 AM EDT [facility] # Monos 0.53 0.24 - 0.86 K/ L 06/09/2025 7:32 AM EDT [facility] # Eos 0.13 0.04 - 0.36 K/ L 06/09/2025 7:32 AM EDT [facility] # Baso <0.03 0.01 - 0.08 K/ L 06/09/2025 7:32 AM EDT [facility] % Imm Grans 2.10(H) 0.01 - 0.43 % 06/09/2025 7:32 AM EDT [facility] # IG 0.11(H) 0.00 - 0.03 K/uL 06/09/2025 7:32 AM EDT [facility] Blood Venipuncture / Unknown 06/09/2025 7:24 AM EDT 06/09/2025 7:26 AM EDT Narrative [facility] - 06/09/2025 7:32 AM EDT When CBC w/ Auto Diff is ordered the lab will add a Manual Differential as a quality check at no additional charge if: Lymphocytes greater than seventy five percent with normal or increased WBC Monocytes greater than Fifteen percent Basophil greater than four percent Bands >10% or several immature myeloids are seen on scan Blast? Flag noted Atypical Lymph flag noted us Charity Steiner MD LAB BLOOD ORDERABLES Final Resul t [facility] [address] [phone] * (ABNORMAL) Basic Metabolic Panel (06/09/2025 7:24 AM EDT) Sodium 147(H) 136 - 145 meq/L 06/09/2025 7:44 AM EDT [facility] Potassium 3.4 3.4 - 5.1 meq/L 06/09/2025 7:44 AM EDT [facility] CO2 35(H) 22 - 29 meq/L 06/09/2025 7:44 AM EDT [facility] Chloride 102 98 - 112 meq/L 06/09/2025 7:44 AM EDT [facility] Glucose 124(H) 82 - 115 mg/dL 06/09/2025 7:44 AM EDT [facility] BUN 57.1(H) 9.8 - 20.1 mg/dL 06/09/2025 7:44 AM EDT [facility] Creatinine 2.50(H) 0.50 - 1.20 mg/dL 06/09/2025 7:44 AM EDT [facility] BUN/Creatinine 23(H) 8 - 20 06/09/2025 7:44 AM EDT [facility] Calcium 9.1 8.4 - 10.2 mg/dL 06/09/2025 7:44 AM EDT [facility] Anion Gap 13(H) 4 - 12 06/09/2025 7:44 AM EDT [facility] eGFR (mL/min/1.73m2) 18(L) >=60 mL/min/1.7 3m2 06/09/2025 7:44 AM EDT [facility] Comment:ESTIMATED GFR IS NOT ACCURATE CREATININE CLEARANCE IN PREDICTING GLOMERULAR FILTRATION RATE. ESTIMATED GFR IS NOT APPLICABLE FOR DIALYSIS PATIENTS. Osmolality Calc 309.7 mOsm/kg 7:44 AM EDT [facility] Blood Venipuncture / Unknown 06/09/2025 7:24 AM EDT 06/09/2025 7:26 AM EDT us Charity Steiner MD LAB BLOOD ORDERABLES Final Resul t Performing Organization Address [facility] de Phone Number [facility] [address] [phone] * Glucose, Nova Meter (06/09/2025 6:13 AM EDT) POC-GLUCOSE 105 70 - 110 mg/dL 06/09/2025 6:14 AM EDT [facility] Comment: In the event of poor peripheral blood flow, venous or arterial blood should be used due to the potential of erroneous results. Protocols Followed Electric Organ Checker [id number] 06/09/2025 6:14 AM EDT [facility] Blood WHOLE BLOOD / Unknown 06/09/2025 6:13 AM EDT 06/09/2025 6:14 AM EDT Narrative [facility] - 06/09/2025 6:14 AM EDT Electric Organ Checker ID is - [id number] us Charity Steiner MD POINT OF CARE TEST ORDERABLES Fi nal Result Performing Organization Address [facility] de Phone Number [facility] [address] [phone] * (ABNORMAL) Glucose, Nova Meter (06/09/2025 12:28 AM EDT) POC-GLUCOSE 113(H) 70 - 110 mg/dL 06/09/2025 12:29 AM EDT [facility] Comment: In the event of poor peripheral blood flow, venous or arterial blood should be used due to the potential of erroneous results. Protocols Followed Electric Organ Checker [id number] 06/09/2025 12:29 AM EDT [facility] Blood WHOLE BLOOD / Unknown 06/09/2025 12:28 AM EDT 06/09/2025 12:29 AM EDT Narrative [facility] - 06/09/2025 12:29 AM EDT Electric Organ Checker ID is - [id number] Charity Steiner MD POINT OF CARE TEST ORDERABLES Fi nal Result [facility] [address] [phone] * XR KUB PORTABLE (06/08/2025 10:23 PM EDT) Anatomical Region Laterality Modality Abdomen X-Ray 06/08/2025 11:0 2 PM EDT Impressions 06/08/2025 11:05 PM EDT Non-obstructive bowel gas pattern. Weighted feeding tube as described above, with tip again overlying the distal second portion of the duodenum. Images reviewed, interpreted, and dictated by Keyon Levy M.D. Narrative 06/08/2025 11:05 PM EDT KUB HISTORY: Corpak tube placement. COMPARISON: Earlier in the same day. FINDINGS: A single view of the abdomen/pelvis demonstrates an unremarkable bowel gas pattern. A weighted feeding tube is seen just right of midline. This again likely reflects placement within the second portion of the duodenum. There are no abnormal calcifications are identified over the renal shadows or course of the ureters.. No acute osseous findings. Procedure Note Ford Levy MD - 06/08/2025 KUB HISTORY: Corpak tube placement. COMPARISON: Earlier in the same day. FINDINGS: A single view of the abdomen/pelvis demonstrates an unremarkable bowel gas pattern. A weighted feeding tube is seen just right of midline. This again likely reflects placement within the second portion of the duodenum. There are no abnormal calcifications are identified over the renal shadows or course of the ureters.. No acute osseous findings. IMPRESSION: Non-obstructive bowel gas pattern. Weighted feeding tube as described above, with tip again overlying the distal second portion of the duodenum. Images reviewed, interpreted, and dictated by Keyon Levy M.D. us Lukas Mckenzie APRN IMG DIAGNOSTIC IMAGING ORDERAB LES Final Result * (ABNORMAL) Glucose, Nova Meter (06/08/2025 6:27 PM EDT) [facility] POC-GLUCOSE 129(H) 70 - 110 mg/dL 06/08/2025 6:28 PM EDT [facility] Comment: In the event of poor peripheral blood flow, venous or arterial blood should be used due to the potential of erroneous results. Protocols Followed Electric Organ Checker [id number] 06/08/2025 6:28 PM EDT [facility] Blood WHOLE BLOOD / Unknown 06/08/2025 6:27 PM EDT 06/08/2025 6:28 PM EDT Narrative [facility] - 06/08/2025 6:28 PM EDT Electric [employer] Checker ID is - [id number] us Charity Steiner MD POINT OF CARE TEST ORDERABLES Fi nal Result [facility] [address] [phone] * (ABNORMAL) Basic Metabolic Panel (06/08/2025 2:55 PM EDT) [facility] Sodium 146(H) 136 - 145 meq/L 06/08/2025 3:16 PM EDT [facility] Potassium 3.7 3.4 - 5.1 meq/L 06/08/2025 3:16 PM EDT [facility] CO2 33(H) 22 - 29 meq/L 06/08/2025 3:16 PM EDT [facility] Chloride 100 98 - 112 meq/L 06/08/2025 3:16 PM EDT [facility] Glucose 125(H) 82 - 115 mg/dL 06/08/2025 3:16 PM EDT [facility] BUN 59.0(H) 9.8 - 20.1 mg/dL 06/08/2025 3:16 PM EDT [facility] Creatinine 2.86(H) 0.50 - 1.20 mg/dL 06/08/2025 3:16 PM EDT [facility] BUN/Creatinine 21(H) 8 - 20 06/08/2025 3:16 PM EDT [facility] Calcium 8.9 8.4 - 10.2 mg/dL 06/08/2025 3:16 PM EDT [facility] Anion Gap 17(H) 4 - 12 06/08/2025 3:16 PM EDT [facility] eGFR (mL/min/1.73m2) 16(L) >=60 mL/min/1.7 3m2 06/08/2025 3:16 PM EDT [facility] Comment:ESTIMATED GFR IS NOT ACCURATE CREATININE CLEARANCE IN PREDICTING GLOMERULAR FILTRATION RATE. ESTIMATED GFR IS NOT APPLICABLE FOR DIALYSIS PATIENTS. Osmolality Calc 308.6 mOsm/kg 3:16 PM EDT [facility] Blood Venipuncture / Unknown 06/08/2025 2:55 PM EDT 06/08/2025 2:55 PM EDT [facility] - 06/08/2025 3:16 PM EDT Specimen slightly hemolyzed us Bela Abel MD LAB BLOOD ORDERABLES Final Res ult [facility] [address] [phone] * (ABNORMAL) Glucose, Nova Meter (06/08/2025 12:03 PM EDT) POC-GLUCOSE 119(H) 70 - 110 mg/dL 06/08/2025 12:04 PM EDT [facility] Comment: In the event of poor peripheral blood flow, venous or arterial blood should be used due to the potential of erroneous results. Protocols Followed [employer] [id number] 06/08/2025 12:04 PM EDT [facility] Blood WHOLE BLOOD / Unknown 06/08/2025 12:03 PM EDT 06/08/2025 12:04 PM EDT [facility] - 06/08/2025 12:04 PM EDT [employer] ID is - [id number] Charity Steiner MD POINT OF CARE TEST ORDERABLES Fi nal Result [facility] [address] [phone] * XR KUB PORTABLE (06/08/2025 11:47 AM EDT) Anatomical Region Laterality Modality Abdomen X-Ray 06/08/2025 2:21 PM EDT Impressions 06/08/2025 3:06 PM EDT Feeding tube tip terminates in the proximal second portion of the duodenum. Images reviewed, interpreted, and dictated by Dr. Elbert Hercules. Transcribed by Valarie Abbott Narrative 06/08/2025 3:06 PM EDT KUB HISTORY: Feeding tube placement. COMPARISON: 06/05/2025 FINDINGS: The [place] feeding tube is identified with the tip in the proximal second portion of the duodenum. The bowel gas pattern is nonspecific. There is no bowel obstruction. Procedure Note Elbert Hercules MD - 06/08/2025 KUB HISTORY: Feeding tube placement. COMPARISON: 06/05/2025 FINDINGS: The [place] feeding tube is identified with the tip in the proximal second portion of the duodenum. The bowel gas pattern is nonspecific. There is no bowel obstruction. IMPRESSION: Feeding tube tip terminates in the proximal second portion of the duodenum. Images reviewed, interpreted, and dictated by Dr. Elbert Hercules. Transcribed by Valarie Abbott Bela Abel MD IMG DIAGNOSTIC IMAGING ORDERAB LES Final Result * Glucose, Nova Meter (06/08/2025 5:53 AM EDT) POC-GLUCOSE 99 70 - 110 mg/dL 06/08/2025 5:55 AM EDT [facility] Comment: In the event of poor peripheral blood flow, venous or arterial blood should be used due to the potential of erroneous results. Notified Nurse RBV Protocols Followed Electric Organ Checker [id number] 06/08/2025 5:55 AM EDT [facility] Blood WHOLE BLOOD / Unknown 06/08/2025 5:53 AM EDT 06/08/2025 5:55 AM EDT Narrative [facility] - 06/08/2025 5:55 AM EDT Electric Organ Checker ID is - [id number] us Jb Turner MD POINT OF CARE TEST ORDERABLES F inal Result [facility] [address] [phone] * (ABNORMAL) CBC with automated diff (06/08/2025 2:55 AM EDT) WBC 4.1 4.0 - 10.0 K/ L 06/08/2025 3:08 AM EDT [facility] RBC 3.30(L) 3.93 - 5.22 M/ L 06/08/2025 3:08 AM EDT [facility] Hemoglobin 9.3(L) 11.2 - 15.7 GM/DL 06/08/2025 3:08 AM EDT [facility] Hematocrit 31.0(L) 34.1 - 44.9 % 06/08/2025 3:08 AM EDT [facility] MCV 94 79 - 95 fL 06/08/2025 3:08 AM EDT [facility] MCH 28.2 25.6 - 32.2 pg 06/08/2025 3:08 AM EDT [facility] MCHC 30.0(L) 32.2 - 35.5 GM/DL 06/08/2025 3:08 AM EDT [facility] RDW 16.8(H) 11.7 - 14.4 % 06/08/2025 3:08 AM EDT [facility] Platelets 70(L) 140 - 375 K/CU MM 06/08/2025 3:08 AM EDT [facility] MPV 11.3 9.4 - 12.3 fL 06/08/2025 3:08 AM EDT [facility] % Neutros 70 34 - 71 % 06/08/2025 3:08 AM EDT [facility] % Lymphs 14(L) 19 - 52 % 06/08/2025 3:08 AM EDT [facility] % Monos 9 5 - 13 % 06/08/2025 3:08 AM EDT [facility] % Eos 3 1 - 6 % 06/08/2025 3:08 AM EDT [facility] % Baso 0 0 - 1 % 06/08/2025 3:08 AM EDT [facility] NRBC Absolute <0.01 0 - 0.012 K/ul 06/08/2025 3:08 AM EDT [facility] # Neutros 2.84 1.56 - 6.13 K/ L 06/08/2025 3:08 AM EDT [facility] # Lymphs 0.55(L) 1.18 - 3.74 K/ L 06/08/2025 3:08 AM EDT [facility] # Monos 0.37 0.24 - 0.86 K/ L 06/08/2025 3:08 AM EDT [facility] # Eos 0.11 0.04 - 0.36 K/ L 06/08/2025 3:08 AM EDT [facility] # Baso <0.03 0.01 - 0.08 K/ L 06/08/2025 3:08 AM EDT [facility] % Imm Grans 4.20(H) 0.01 - 0.43 % 06/08/2025 3:08 AM EDT [facility] # IG 0.17(H) 0.00 - 0.03 K/uL 06/08/2025 3:08 AM EDT [facility] Blood Venipuncture / Unknown 06/08/2025 2:55 AM EDT 06/08/2025 2:55 AM EDT Narrative [facility] - 06/08/2025 3:08 AM EDT When CBC w/ Auto Diff is ordered the lab will add a Manual Differential as a quality check at no additional charge if: Lymphocytes greater than seventy five percent with normal or increased WBC Monocytes greater than Fifteen percent Basophil greater than four percent Bands >10% or several immature myeloids are seen on scan Blast? Flag noted Atypical Lymph flag noted us Jb Turner MD LAB BLOOD ORDERABLES Final Resu lt [facility] [address] [phone] * (ABNORMAL) Basic Metabolic Panel (06/08/2025 2:55 AM EDT) Sodium 152(HH) 136 - 145 meq/L 06/08/2025 3:13 AM EDT [facility] Potassium 3.7 3.4 - 5.1 meq/L 06/08/2025 3:13 AM EDT [facility] CO2 33(H) 22 - 29 meq/L 06/08/2025 3:13 AM EDT [facility] Chloride 106 98 - 112 meq/L 06/08/2025 3:13 AM EDT [facility] Glucose 94 82 - 115 mg/dL 06/08/2025 3:13 AM EDT [facility] BUN 62.9(H) 9.8 - 20.1 mg/dL 06/08/2025 3:13 AM EDT [facility] Creatinine 3.01(H) 0.57 - 1.11 mg/dL 06/08/2025 3:13 AM EDT [facility] BUN/Creatinine 21(H) 8 - 20 06/08/2025 3:13 AM EDT [facility] Calcium 8.9 8.4 - 10.2 mg/dL 06/08/2025 3:13 AM EDT [facility] Anion Gap 17(H) 4 - 12 06/08/2025 3:13 AM EDT [facility] eGFR (mL/min/1.73m2) 15(L) >=60 mL/min/1.7 3m2 06/08/2025 3:13 AM EDT [facility] Comment:ESTIMATED GFR IS NOT ACCURATE CREATININE CLEARANCE IN PREDICTING GLOMERULAR FILTRATION RATE. ESTIMATED GFR IS NOT APPLICABLE FOR DIALYSIS PATIENTS. Osmolality Calc 319.4 mOsm/kg 3:13 AM EDT [facility] Blood Venipuncture / Unknown 06/08/2025 2:55 AM EDT 06/08/2025 2:55 AM EDT us Jb Turner MD LAB BLOOD ORDERABLES Final Resu lt Performing Organization Address City/[facility]/ZIP Co de Phone Number [facility] [address] [phone] * Glucose, Nova Meter (06/07/2025 11:40 PM EDT) POC-GLUCOSE 94 70 - 110 mg/dL 06/07/2025 11:41 PM EDT [facility] Comment: In the event of poor peripheral blood flow, venous or arterial blood should be used due to the potential of erroneous results. Notified Nurse RBV Protocols Followed Electric Organ Checker [id number] 06/07/2025 11:41 PM EDT [facility] Blood WHOLE BLOOD / Unknown 06/07/2025 11:40 PM EDT 06/07/2025 11:41 PM EDT [facility] - 06/07/2025 11:41 PM EDT Electric Organ Checker ID is - [id number] us Jb Turner MD POINT OF CARE TEST ORDERABLES F inal Result Performing Organization Address City/[facility] Co de Phone Number [facility] [address] [phone] * (ABNORMAL) Glucose, Nova Meter (06/07/2025 5:44 PM EDT) POC-GLUCOSE 127(H) 70 - 110 mg/dL 06/07/2025 5:48 PM EDT [facility] Comment: In the event of poor peripheral blood flow, venous or arterial blood should be used due to the potential of erroneous results. No action Require Electric Organ Checker [id number] 06/07/2025 5:48 PM EDT [facility] Blood WHOLE BLOOD / Unknown 06/07/2025 5:44 PM EDT 06/07/2025 5:48 PM EDT [facility] - 06/07/2025 5:48 PM EDT Electric Organ Checker ID is - [id number] Jb Turner MD POINT OF CARE TEST ORDERABLES F inal Result [facility] [address] [place], [place] [address] [phone] * XR chest AP portable (06/07/2025 2:31 PM EDT) Anatomical Region Laterality Modality Chest X-Ray 06/07/2025 3:52 PM EDT Impressions 06/07/2025 4:07 PM EDT There has been interval improvement . Continued follow up recommended . Images reviewed, interpreted, and dictated by Dr. Marisela Luther. Transcribed by Estela Bueno PA-C. Narrative 06/07/2025 4:07 PM EDT PORTABLE CHEST 06/07/2025 2:27 AM HISTORY: Shortness of breath. COMPARISON: Chest x-ray from approximately 11 hours prior. FINDINGS: The heart is stable in size . There has been interval improvement in the perihilar opacities. Small pleural effusions are stable. There is no pneumothorax . Procedure Note Natacha Luther MD - 06/07/2025 PORTABLE CHEST 06/07/2025 2:27 AM HISTORY: Shortness of breath. COMPARISON: Chest x-ray from approximately 11 hours prior. FINDINGS: The heart is stable in size . There has been interval improvement in the perihilar opacities. Small pleural effusions are stable. There is no pneumothorax . IMPRESSION: There has been interval improvement . Continued follow up recommended . Images reviewed, interpreted, and dictated by Dr. Marisela Luther. Transcribed by Estela Bueno PA-C. Bela Abel MD IMG DIAGNOSTIC IMAGING ORDERAB LES Final Result * (ABNORMAL) Glucose, Nova Meter (06/07/2025 11:29 AM EDT) POC-GLUCOSE 132(H) 70 - 110 mg/dL 06/07/2025 11:30 AM EDT [facility] Comment: In the event of poor peripheral blood flow, venous or arterial blood should be used due to the potential of erroneous results. Notified Nurse RBV Protocols Followed Electric Organ Checker [id number] 06/07/2025 11:30 AM EDT [facility] Blood WHOLE BLOOD / Unknown 06/07/2025 11:29 AM EDT 06/07/2025 11:30 AM EDT Narrative [facility] - 06/07/2025 11:30 AM EDT Electric Organ Checker ID is - [id number] Jb Turner MD POINT OF CARE TEST ORDERABLES F inal Result [facility] [address] [phone] * ECG 12 lead (06/07/2025 7:49 AM EDT) SYSTOLIC BLOOD PRESSURE (MCT) 120 mmHg GE MUSE DIASTOLIC BLOOD PRESSURE (MCT) 85 mmHg GE MUSE VENTRICULAR RATE EKG/MIN 69 BPM GE MUSE ATRIAL RATE (MCT) 69 BPM GE MUSE GA Interval 220 ms GE MUSE QRS-INTERVAL (MSEC) 132 ms GE MUSE QT Interval 406 ms GE MUSE QTC Interval 435 ms GE MUSE P [place] 63 degrees GE MUSE R AXIS (MCT) 60 degrees GE MUSE T Wave [place] 82 degrees GE MUSE [place] Diagnosis Sinus rhythm with 1st degree AV block with premature supraventricular complexes Right bundle branch block Abnormal ECG When compared with ECG of 06-JUN-2025 20:45, Sinus rhythm has replaced Atrial fibrillation Confirmed by Mo Peter ([id number]) on 06/07/2025 8:58:06 PM GE MUSE 06/07/2025 7:49 AM EDT 06/07/2025 8:58 PM EDT Jb Turner MD ECG ORDERABLES Final Result GE MUSE * (ABNORMAL) Glucose, Nova Meter (06/07/2025 6:21 AM EDT) POC-GLUCOSE 119(H) 70 - 110 mg/dL 06/07/2025 6:22 AM EDT [facility] Comment: In the event of poor peripheral blood flow, venous or arterial blood should be used due to the potential of erroneous results. Protocols Followed Electric Organ Checker [id number] 06/07/2025 6:22 AM EDT [facility] Blood WHOLE BLOOD / Unknown 06/07/2025 6:21 AM EDT 06/07/2025 6:22 AM EDT Narrative [facility] - 06/07/2025 6:22 AM EDT Electric Organ Checker ID is - [id number] Jb Turner MD POINT OF CARE TEST ORDERABLES F inal Result Performing Organization Address [facility] Co de Phone Number [facility] [address] [phone] * Magnesium (06/07/2025 4:23 AM EDT) Magnesium 1.7 1.6 - 2.6 mg/dL 06/07/2025 5:03 AM EDT [facility] Blood Venipuncture / Unknown 06/07/2025 4:23 AM EDT 06/07/2025 4:32 AM EDT Jb Turner MD LAB BLOOD ORDERABLES Final Resu lt Performing Organization Address [facility] Co de Phone Number [facility] [address] [phone] * (ABNORMAL) CBC with automated diff (06/07/2025 4:23 AM EDT) WBC 4.4 4.0 - 10.0 K/ L 06/07/2025 4:46 AM EDT [facility] RBC 2.92(L) 3.93 - 5.22 M/ L 06/07/2025 4:46 AM EDT [facility] Hemoglobin 8.2(L) 11.2 - 15.7 GM/DL 06/07/2025 4:46 AM EDT [facility] Hematocrit 27.4(L) 34.1 - 44.9 % 06/07/2025 4:46 AM EDT [facility] MCV 94 79 - 95 fL 06/07/2025 4:46 AM EDT [facility] MCH 28.1 25.6 - 32.2 pg 06/07/2025 4:46 AM EDT [facility] MCHC 29.9(L) 32.2 - 35.5 GM/DL 06/07/2025 4:46 AM EDT [facility] RDW 17.0(H) 11.7 - 14.4 % 06/07/2025 4:46 AM EDT [facility] Platelets 61(L) 140 - 375 K/CU MM 06/07/2025 4:46 AM EDT [facility] MPV 11.3 9.4 - 12.3 fL 06/07/2025 4:46 AM EDT [facility] % Neutros 73(H) 34 - 71 % 06/07/2025 4:46 AM EDT [facility] % Lymphs 13(L) 19 - 52 % 06/07/2025 4:46 AM EDT [facility] % Monos 10 5 - 13 % 06/07/2025 4:46 AM EDT [facility] % Eos 2 1 - 6 % 06/07/2025 4:46 AM EDT [facility] % Baso 0 0 - 1 % 06/07/2025 4:46 AM EDT [facility] NRBC Absolute <0.01 0 - 0.012 K/ul 06/07/2025 4:46 AM EDT [facility] # Neutros 3.20 1.56 - 6.13 K/ L 06/07/2025 4:46 AM EDT [facility] # Lymphs 0.59(L) 1.18 - 3.74 K/ L 06/07/2025 4:46 AM EDT [facility] # Monos 0.43 0.24 - 0.86 K/ L 06/07/2025 4:46 AM EDT [facility] # Eos 0.10 0.04 - 0.36 K/ L 06/07/2025 4:46 AM EDT [facility] # Baso <0.03 0.01 - 0.08 K/ L 06/07/2025 4:46 AM EDT [facility] % Imm Grans 1.40(H) 0.01 - 0.43 % 06/07/2025 4:46 AM EDT [facility] # IG 0.06(H) 0.00 - 0.03 K/uL 06/07/2025 4:46 AM EDT [facility] Blood Venipuncture / Unknown 06/07/2025 4:23 AM EDT 06/07/2025 4:30 AM EDT Narrative [facility] - 06/07/2025 4:46 AM EDT When CBC w/ Auto Diff is ordered the lab will add a Manual Differential as a quality check at no additional charge if: Lymphocytes greater than seventy five percent with normal or increased WBC Monocytes greater than Fifteen percent Basophil greater than four percent Bands >10% or several immature myeloids are seen on scan Blast? Flag noted Atypical Lymph flag noted us Jb Turner MD LAB BLOOD ORDERABLES Final Resu lt [facility] [address] [phone] * (ABNORMAL) Basic Metabolic Panel (06/07/2025 4:23 AM EDT) Sodium 147(H) 136 - 145 meq/L 06/07/2025 5:03 AM EDT [facility] Potassium 4.0 3.4 - 5.1 meq/L 06/07/2025 5:03 AM EDT [facility] CO2 32(H) 22 - 29 meq/L 06/07/2025 5:03 AM EDT [facility] Chloride 103 98 - 112 meq/L 06/07/2025 5:03 AM EDT [facility] Glucose 121(H) 82 - 115 mg/dL 06/07/2025 5:03 AM EDT [facility] BUN 66.4(H) 9.8 - 20.1 mg/dL 06/07/2025 5:03 AM EDT [facility] Creatinine 3.64(H) 0.57 - 1.11 mg/dL 06/07/2025 5:03 AM EDT [facility] BUN/Creatinine 18 8 - 20 06/07/2025 5:03 AM EDT [facility] Calcium 8.5 8.4 - 10.2 mg/dL 06/07/2025 5:03 AM EDT [facility] Anion Gap 16(H) 4 - 12 06/07/2025 5:03 AM EDT [facility] eGFR (mL/min/1.73m2) 12(L) >=60 mL/min/1.7 3m2 06/07/2025 5:03 AM EDT [facility] Comment:ESTIMATED GFR IS NOT ACCURATE CREATININE CLEARANCE IN PREDICTING GLOMERULAR FILTRATION RATE. ESTIMATED GFR IS NOT APPLICABLE FOR DIALYSIS PATIENTS. Osmolality Calc 312.9 mOsm/kg 5:03 AM EDT [facility] Blood Venipuncture / Unknown 06/07/2025 4:23 AM EDT 06/07/2025 4:32 AM EDT us Jb Turner MD LAB BLOOD ORDERABLES Final Resu lt [facility] [address] [phone] * XR chest AP portable (06/07/2025 2:55 AM EDT) Anatomical Region Laterality Modality Chest X-Ray 06/07/2025 8:02 AM EDT Impressions 06/07/2025 8:03 AM EDT Worsening bibasilar lung infiltrates, which may represent atelectasis and/or pneumonia. Narrative 06/07/2025 8:03 AM EDT Portable chest HISTORY: Shortness of breath FINDINGS: Comparison date 06/04/2025. An enteric tube has been placed rectum towards the left upper quadrant although tip is not included. There are worsening bibasilar infiltrates. There may be a small right effusion. There are low lung volumes with poor inspiration. Heart size is normal. Procedure Note Christen Yeboah MD - 06/07/2025 Portable chest HISTORY: Shortness of breath FINDINGS: Comparison date 06/04/2025. An enteric tube has been placed rectum towards the left upper quadrant although tip is not included. There are worsening bibasilar infiltrates. There may be a small right effusion. There are low lung volumes with poor inspiration. Heart size is normal. IMPRESSION: Worsening bibasilar lung infiltrates, which may represent atelectasis and/or pneumonia. us Octavio Odell MD IMG DIAGNOSTIC IMAGING ORDERA BLES Final Result * (ABNORMAL) Glucose, Nova Meter (06/07/2025 12:06 AM EDT) POC-GLUCOSE 160(H) 70 - 110 mg/dL 06/07/2025 12:07 AM EDT [facility] Comment: In the event of poor peripheral blood flow, venous or arterial blood should be used due to the potential of erroneous results. Protocols Followed Electric Organ Checker [id number] 06/07/2025 12:07 AM EDT [facility] Blood WHOLE BLOOD / Unknown 06/07/2025 12:06 AM EDT 06/07/2025 12:07 AM EDT Narrative [facility] - 06/07/2025 12:07 AM EDT Electric Organ Checker ID is - [id number] us Jb Turner MD POINT OF CARE TEST ORDERABLES F inal Result [facility] [address] [phone] * ECG 12 lead (06/06/2025 8:45 PM EDT) SYSTOLIC BLOOD PRESSURE (MCT) 135 mmHg GE MUSE DIASTOLIC BLOOD PRESSURE (MCT) 62 mmHg GE MUSE VENTRICULAR RATE EKG/MIN 74 BPM GE MUSE ATRIAL RATE (MCT) 61 BPM GE MUSE QRS-INTERVAL (MSEC) 140 ms GE MUSE QT Interval 402 ms GE MUSE QTC Interval 446 ms GE MUSE R AXIS (MCT) 25 degrees GE MUSE T Wave [place] 39 degrees GE MUSE [place] Diagnosis Atrial fibrillation Right bundle branch block Abnormal ECG When compared with ECG of 06-JUN-2025 07:24, No significant change was found Confirmed by Mo Peter ([id number]) on 06/07/2025 8:46:00 PM GE MUSE 06/06/2025 8:45 PM EDT 06/07/2025 8:46 PM EDT us Jb Turner MD ECG ORDERABLES Final Result Performing Organization Address [facility] Co de Phone Number GE MUSE * (ABNORMAL) Glucose, Nova Meter (06/06/2025 4:38 PM EDT) POC-GLUCOSE 134(H) 70 - 110 mg/dL 06/06/2025 4:40 PM EDT [facility] Comment: In the event of poor peripheral blood flow, venous or arterial blood should be used due to the potential of erroneous results. Notified Nurse RBV Electric Organ Checker [id number] 06/06/2025 4:40 PM EDT [facility] Blood WHOLE BLOOD / Unknown 06/06/2025 4:38 PM EDT 06/06/2025 4:40 PM EDT Narrative [facility] - 06/06/2025 4:40 PM EDT Electric Organ Checker ID is - [id number] us Jb Turner MD POINT OF CARE TEST ORDERABLES F inal Result Performing Organization Address [facility] Co de Phone Number [facility] [address] [phone] * (ABNORMAL) Glucose, Nova Meter (06/06/2025 11:36 AM EDT) POC-GLUCOSE 152(H) 70 - 110 mg/dL 06/06/2025 11:37 AM EDT [facility] Comment: In the event of poor peripheral blood flow, venous or arterial blood should be used due to the potential of erroneous results. Notified Nurse RBV Electric Organ Checker [id number] 06/06/2025 11:37 AM EDT [facility] Blood WHOLE BLOOD / Unknown 06/06/2025 11:36 AM EDT 06/06/2025 11:37 AM EDT Narrative [facility] - 06/06/2025 11:37 AM EDT Electric Organ Checker ID is - [id number] us Jb Turner MD POINT OF CARE TEST ORDERABLES F inal Result [facility] [address] [phone] * ECG 12 lead (06/06/2025 7:24 AM EDT) SYSTOLIC BLOOD PRESSURE (MCT) 128 mmHg GE MUSE DIASTOLIC BLOOD PRESSURE (MCT) 58 mmHg GE MUSE VENTRICULAR RATE EKG/MIN 68 BPM GE MUSE ATRIAL RATE (MCT) 68 BPM GE MUSE QRS-INTERVAL (MSEC) 128 ms GE MUSE QT Interval 414 ms GE MUSE QTC Interval 440 ms GE MUSE R AXIS (MCT) 37 degrees GE MUSE T Wave [place] 72 degrees GE MUSE [place] Diagnosis Sinus arrhythmia Right bundle branch block Abnormal ECG When compared with ECG of 06-JUN-2025 07:23, Previous ECG has undetermined rhythm, needs review Confirmed by Brandyn LAO STEVE ([id number]) on 06/06/2025 10:14:40 AM GE MUSE 06/06/2025 7:24 AM EDT 06/06/2025 10:14 AM EDT us Jb Turner MD ECG ORDERABLES Final Result Performing Organization Address City/[facility]/ZIP Co de Phone Number GE MUSE * Glucose, Nova Meter (06/06/2025 6:24 AM EDT) POC-GLUCOSE 97 70 - 110 mg/dL 06/06/2025 6:25 AM EDT [facility] Comment: In the event of poor peripheral blood flow, venous or arterial blood should be used due to the potential of erroneous results. Protocols Followed Notified Nurse RBV Electric Organ Checker [id number] 06/06/2025 6:25 AM EDT [facility] Blood WHOLE BLOOD / Unknown 06/06/2025 6:24 AM EDT 06/06/2025 6:25 AM EDT Narrative [facility] - 06/06/2025 6:25 AM EDT Electric Organ Checker ID is - [id number] us Jb Turner MD POINT OF CARE TEST ORDERABLES F inal Result Performing Organization Address [facility] Co de Phone Number [facility] [address] [phone] * Magnesium (06/06/2025 4:24 AM EDT) [facility] Magnesium 1.8 1.6 - 2.6 mg/dL 06/06/2025 4:54 AM EDT [facility] Blood ENTIRE RIGHT UPPER ARM / Unknown Venipuncture / Unknown 06/06/2025 4:24 AM EDT 06/06/2025 4:30 AM EDT us Jb Turner MD LAB BLOOD ORDERABLES Final Resu lt Performing Organization Address [facility] Co de Phone Number [facility] [address] [phone] * (ABNORMAL) CBC with automated diff (06/06/2025 4:24 AM EDT) [facility] WBC 4.1 4.0 - 10.0 K/ L 06/06/2025 4:54 AM EDT [facility] RBC 3.14(L) 3.93 - 5.22 M/ L 06/06/2025 4:54 AM EDT [facility] Hemoglobin 8.7(L) 11.2 - 15.7 GM/DL 06/06/2025 4:54 AM EDT [facility] Hematocrit 29.0(L) 34.1 - 44.9 % 06/06/2025 4:54 AM EDT [facility] MCV 92 79 - 95 fL 06/06/2025 4:54 AM EDT [facility] MCH 27.7 25.6 - 32.2 pg 06/06/2025 4:54 AM EDT [facility] MCHC 30.0(L) 32.2 - 35.5 GM/DL 06/06/2025 4:54 AM EDT [facility] RDW 17.4(H) 11.7 - 14.4 % 06/06/2025 4:54 AM EDT [facility] Platelets 79(L) 140 - 375 K/CU MM 06/06/2025 4:54 AM EDT [facility] MPV 11.7 9.4 - 12.3 fL 06/06/2025 4:54 AM EDT [facility] % Neutros 70 34 - 71 % 06/06/2025 4:54 AM EDT [facility] % Lymphs 17(L) 19 - 52 % 06/06/2025 4:54 AM EDT [facility] % Monos 9 5 - 13 % 06/06/2025 4:54 AM EDT [facility] % Eos 2 1 - 6 % 06/06/2025 4:54 AM EDT [facility] % Baso 0 0 - 1 % 06/06/2025 4:54 AM EDT [facility] NRBC Absolute <0.01 0 - 0.012 K/ul 06/06/2025 4:54 AM EDT [facility] # Neutros 2.90 1.56 - 6.13 K/ L 06/06/2025 4:54 AM EDT [facility] # Lymphs 0.69(L) 1.18 - 3.74 K/ L 06/06/2025 4:54 AM EDT [facility] # Monos 0.39 0.24 - 0.86 K/ L 06/06/2025 4:54 AM EDT [facility] # Eos 0.09 0.04 - 0.36 K/ L 06/06/2025 4:54 AM EDT [facility] # Baso <0.03 0.01 - 0.08 K/ L 06/06/2025 4:54 AM EDT [facility] % Imm Grans 1.40(H) 0.01 - 0.43 % 06/06/2025 4:54 AM EDT [facility] # IG 0.06(H) 0.00 - 0.03 K/uL 06/06/2025 4:54 AM EDT [facility] Blood ENTIRE RIGHT UPPER ARM / Unknown Venipuncture / Unknown 06/06/2025 4:24 AM EDT 06/06/2025 4:33 AM EDT Narrative [facility] - 06/06/2025 4:54 AM EDT When CBC w/ Auto Diff is ordered the lab will add a Manual Differential as a quality check at no additional charge if: Lymphocytes greater than seventy five percent with normal or increased WBC Monocytes greater than Fifteen percent Basophil greater than four percent Bands >10% or several immature myeloids are seen on scan Blast? Flag noted Atypical Lymph flag noted us Jb Turner MD LAB BLOOD ORDERABLES Final Resu lt [facility] [address] [phone] * (ABNORMAL) Basic Metabolic Panel (06/06/2025 4:24 AM EDT) Sodium 145 136 - 145 meq/L 06/06/2025 4:54 AM EDT [facility] Potassium 4.2 3.4 - 5.1 meq/L 06/06/2025 4:54 AM EDT [facility] CO2 31(H) 22 - 29 meq/L 06/06/2025 4:54 AM EDT [facility] Chloride 100 98 - 112 meq/L 06/06/2025 4:54 AM EDT [facility] Glucose 111 82 - 115 mg/dL 06/06/2025 4:54 AM EDT [facility] BUN 68.2(H) 9.8 - 20.1 mg/dL 06/06/2025 4:54 AM EDT [facility] Creatinine 4.17(H) 0.57 - 1.11 mg/dL 06/06/2025 4:54 AM EDT [facility] BUN/Creatinine 16 8 - 20 06/06/2025 4:54 AM EDT [facility] Calcium 8.3(L) 8.4 - 10.2 mg/dL 06/06/2025 4:54 AM EDT [facility] Anion Gap 18(H) 4 - 12 06/06/2025 4:54 AM EDT [facility] eGFR (mL/min/1.73m2) 10(L) >=60 mL/min/1.7 3m2 06/06/2025 4:54 AM EDT [facility] Comment:ESTIMATED GFR IS NOT ACCURATE CREATININE CLEARANCE IN PREDICTING GLOMERULAR FILTRATION RATE. ESTIMATED GFR IS NOT APPLICABLE FOR DIALYSIS PATIENTS. Osmolality Calc 309.2 mOsm/kg 4:54 AM EDT [facility] Blood ENTIRE RIGHT UPPER ARM / Unknown Venipuncture / Unknown 06/06/2025 4:24 AM EDT 06/06/2025 4:30 AM EDT Jb Turner MD LAB BLOOD ORDERABLES Final Resu lt Performing Organization Address [facility] Co [facility] Phone Number [facility] [address] [phone] * (ABNORMAL) Glucose, Nova Meter (06/06/2025 12:16 AM EDT) POC-GLUCOSE 112(H) 70 - 110 mg/dL 06/06/2025 12:17 AM EDT [facility] Comment: In the event of poor peripheral blood flow, venous or arterial blood should be used due to the potential of erroneous results. Protocols Followed Notified Nurse RBV Electric Organ Checker [id number] 06/06/2025 12:17 AM EDT [facility] Blood WHOLE BLOOD / Unknown 06/06/2025 12:16 AM EDT 06/06/2025 12:17 AM EDT Narrative [facility] - 06/06/2025 12:17 AM EDT Electric Organ Checker ID is - [id number] Jb Turner MD POINT OF CARE TEST ORDERABLES F inal Result Performing Organization Address [facility] Co de Phone Number [facility] [address] [place] [address], [facility] [phone] * Glucose, Nova Meter (06/05/2025 9:34 PM EDT) POC-GLUCOSE 87 70 - 110 mg/dL 06/05/2025 9:35 PM EDT [facility] Comment: In the event of poor peripheral blood flow, venous or arterial blood should be used due to the potential of erroneous results. Notified Nurse RBV Electric Organ Checker [id number] 06/05/2025 9:35 PM EDT [facility] Blood WHOLE BLOOD / Unknown 06/05/2025 9:34 PM EDT 06/05/2025 9:35 PM EDT Narrative [facility] - 06/05/2025 9:35 PM EDT Electric Organ Checker ID is - [id number] Jb Turner MD POINT OF CARE TEST ORDERABLES F inal Result Performing Organization Address [facility] Phone Number [facility] [address] [phone] * Glucose, Nova Meter (06/05/2025 5:29 PM EDT) Pathologist [facility] [place] POC-GLUCOSE 110 70 - 110 mg/dL 06/05/2025 5:33 PM EDT [facility] Comment: In the event of poor peripheral blood flow, venous or arterial blood should be used due to the potential of erroneous results. Notified Nurse RBV Protocols Followed Electric Organ Checker [id number] 06/05/2025 5:33 PM EDT [facility] Blood WHOLE BLOOD / Unknown 06/05/2025 5:29 PM EDT 06/05/2025 5:33 PM EDT Narrative [facility] - 06/05/2025 5:33 PM EDT Electric Organ Checker ID is - [id number] us Jb Turner MD POINT OF CARE TEST ORDERABLES F inal Result Performing Organization Address [facility] Co de Phone Number [facility] [address] [place] [address], [facility] [phone] * XR KUB PORTABLE (06/05/2025 12:37 PM EDT) Anatomical Region Laterality Modality Abdomen X-Ray 06/05/2025 2:18 PM EDT Impressions 06/05/2025 5:08 PM EDT Nonspecific bowel gas pattern. Feeding tube tip terminates at the junction of the second and third portion of the duodenum. Images reviewed, interpreted, and dictated by Dr. Lino Main. Transcribed by Estela Bueno PA-C. Narrative 06/05/2025 5:08 PM EDT SINGLE VIEW ABDOMEN HISTORY: Feeding tube adjustment. COMPARISON: June 04, 2025. ABDOMEN: Single view of the abdomen demonstrates a nonspecific bowel gas pattern. No abnormal calcifications are identified. There is a feeding tube identified with the tip at the junction of the second and third portion of the duodenum. Procedure Note Lino Main MD - 06/05/2025 SINGLE VIEW ABDOMEN HISTORY: Feeding tube adjustment. COMPARISON: June 04, 2025. ABDOMEN: Single view of the abdomen demonstrates a nonspecific bowel gas pattern. No abnormal calcifications are identified. There is a feeding tube identified with the tip at the junction of the second and third portion of the duodenum. IMPRESSION: Nonspecific bowel gas pattern. Feeding tube tip terminates at the junction of the second and third portion of the duodenum. Images reviewed, interpreted, and dictated by Dr. Lino Main. Transcribed by Estela Beuno PA-C. us Octavio Odell MD IMG DIAGNOSTIC IMAGING ORDERA BLES Final Result * Glucose, Nova Meter (06/05/2025 11:30 AM EDT) POC-GLUCOSE 87 70 - 110 mg/dL 06/05/2025 11:32 AM EDT [facility] Comment: In the event of poor peripheral blood flow, venous or arterial blood should be used due to the potential of erroneous results. Protocols Followed Notified Nurse RBV Electric Organ Checker [id number] 06/05/2025 11:32 AM EDT [facility] Blood WHOLE BLOOD / Unknown 06/05/2025 11:30 AM EDT 06/05/2025 11:32 AM EDT Narrative [facility] - 06/05/2025 11:32 AM EDT Electric Organ Checker ID is - [id number] us Jb Turner MD POINT OF CARE TEST ORDERABLES F inal Result [facility] [address] [place] [address], [facility] [phone] * CT CHEST WITHOUT IV CONTRAST (06/05/2025 11:11 AM EDT) Anatomical Region Laterality Modality Chest, Lung Computed Tomogra phy (CT) 06/05/2025 11:4 5 AM EDT Impressions 06/05/2025 5:07 PM EDT Bronchopneumonia with superimposed atelectasis. Images reviewed, interpreted, and dictated by Dr. Lino Main. Transcribed by Estela Bueno PA-C. Narrative 06/05/2025 5:[address] SCAN OF THE CHEST WITHOUT CONTRAST 06/05/2025 10:51 AM HISTORY: Pneumonia, unresolved. PROCEDURE: Axial CT images were obtained from the lung apex to the mid abdomen without IV contrast. Coronal and sagittal reformatted images generated from the axial data set and provided for interpretation. This study was performed with techniques to keep radiation doses as low as reasonably achievable, (ALARA). Individualized dose reduction techniques using automated exposure control or adjustment of mA and/or kV according to the patient size were employed. COMPARISON: None. FINDINGS: CHEST: Lack of IV contrast somewhat limits evaluation of the thoracic viscera. Lungs/Pleura: There is severe emphysema. There is severe bronchial wall thickening in the bilateral mid and lower lung zones. Patchy peribronchial consolidations are consistent with bronchopneumonia. There is superimposed atelectasis. No pneumothorax or pleural effusion. Heart, vessels and mediastinum: The heart is normal in size. No pericardial effusion. There is enlargement of the pulmonary arteries, at to 42 mm. This is consistent with pulmonary arterial hypertension. Coronary artery disease is present. Lymph nodes: No pathologically enlarged thoracic lymph nodes within the limits of a noncontrast-enhanced examination. Chest wall: No acute findings. Bones: No acute fracture. Upper abdomen: Gallbladder is distended with gallstones. There is no evidence of acute cholecystitis. A feeding tube is in place. Procedure Note Lino Main MD - 06/05/2025 CT SCAN OF THE CHEST WITHOUT CONTRAST 06/05/2025 10:51 AM HISTORY: Pneumonia, unresolved. PROCEDURE: Axial CT images were obtained from the lung apex to the mid abdomen without IV contrast. Coronal and sagittal reformatted images generated from the axial data set and provided for interpretation. This study was performed with techniques to keep radiation doses as low as reasonably achievable, (ALARA). Individualized dose reduction techniques using automated exposure control or adjustment of mA and/or kV according to the patient size were employed. COMPARISON: None. FINDINGS: CHEST: Lack of IV contrast somewhat limits evaluation of the thoracic viscera. Lungs/Pleura: There is severe emphysema. There is severe bronchial wall thickening in the bilateral mid and lower lung zones. Patchy peribronchial consolidations are consistent with bronchopneumonia. There is superimposed atelectasis. No pneumothorax or pleural effusion. Heart, vessels and mediastinum: The heart is normal in size. No pericardial effusion. There is enlargement of the pulmonary arteries, at to 42 mm. This is consistent with pulmonary arterial hypertension. Coronary artery disease is present. Lymph nodes: No pathologically enlarged thoracic lymph nodes within the limits of a noncontrast-enhanced examination. Chest wall: No acute findings. Bones: No acute fracture. Upper abdomen: Gallbladder is distended with gallstones. There is no evidence of acute cholecystitis. A feeding tube is in place. IMPRESSION: Bronchopneumonia with superimposed atelectasis. Images reviewed, interpreted, and dictated by Dr. Lino Main. Transcribed by Estela Bueno PA-C. us Octavio Odell MD IMG CT ORDERABLES Final Resul t * ECG 12 lead (06/05/2025 8:06 AM EDT) SYSTOLIC BLOOD PRESSURE (MCT) 151 mmHg GE MUSE DIASTOLIC BLOOD PRESSURE (MCT) 92 mmHg GE MUSE VENTRICULAR RATE EKG/MIN 63 BPM GE MUSE ATRIAL RATE (MCT) 88 BPM GE MUSE QRS-INTERVAL (MSEC) 136 ms GE MUSE QT Interval 440 ms GE MUSE QTC Interval 450 ms GE MUSE R AXIS (MCT) 29 degrees GE MUSE T Wave [place] 50 degrees GE MUSE [place] Diagnosis Normal sinus rhythm with premature atrial contractions Right bundle branch block Anterior infarct (cited on or before 05-JUN-2025) Abnormal ECG When compared with ECG of 05-JUN-2025 03:09, No significant change was found Confirmed by Brandyn LAO STEVE ([id number]) on 06/05/2025 6:27:52 PM GE MUSE 06/05/2025 8:06 AM EDT 06/05/2025 6:27 PM EDT Jb Turner MD ECG ORDERABLES Final Result Performing Organization Address City/[facility] Co de Phone Number GE MUSE * Glucose, Nova Meter (06/05/2025 6:10 AM EDT) [facility] POC-GLUCOSE 97 70 - 110 mg/dL 06/05/2025 6:11 AM EDT [facility] Comment: In the event of poor peripheral blood flow, venous or arterial blood should be used due to the potential of erroneous results. Protocols Followed Electric Organ Checker [id number] 06/05/2025 6:11 AM EDT [facility] Blood WHOLE BLOOD / Unknown 06/05/2025 6:10 AM EDT 06/05/2025 6:11 AM EDT Narrative [facility] - 06/05/2025 6:11 AM EDT Electric Organ Checker ID is - [id number] Jb Turner MD POINT OF CARE TEST ORDERABLES F inal Result Performing Organization Address City/[facility]/ZIP Co de Phone Number [facility] [address] [phone] * (ABNORMAL) CBC with automated diff (06/05/2025 4:48 AM EDT) [facility] WBC 5.4 4.0 - 10.0 K/ L 06/05/2025 5:12 AM EDT [facility] RBC 3.43(L) 3.93 - 5.22 M/ L 06/05/2025 5:12 AM EDT [facility] Hemoglobin 9.6(L) 11.2 - 15.7 GM/DL 06/05/2025 5:12 AM EDT [facility] Hematocrit 31.0(L) 34.1 - 44.9 % 06/05/2025 5:12 AM EDT [facility] MCV 90 79 - 95 fL 06/05/2025 5:12 AM EDT [facility] MCH 28.0 25.6 - 32.2 pg 06/05/2025 5:12 AM EDT [facility] MCHC 31.0(L) 32.2 - 35.5 GM/DL 06/05/2025 5:12 AM EDT [facility] RDW 17.2(H) 11.7 - 14.4 % 06/05/2025 5:12 AM EDT [facility] Platelets 87(L) 140 - 375 K/CU MM 06/05/2025 5:12 AM EDT [facility] MPV 11.5 9.4 - 12.3 fL 06/05/2025 5:12 AM EDT [facility] % Neutros 78(H) 34 - 71 % 06/05/2025 5:12 AM EDT [facility] % Lymphs 10(L) 19 - 52 % 06/05/2025 5:12 AM EDT [facility] % Monos 10 5 - 13 % 06/05/2025 5:12 AM EDT [facility] % Eos 0(L) 1 - 6 % 06/05/2025 5:12 AM EDT [facility] % Baso 0 0 - 1 % 06/05/2025 5:12 AM EDT [facility] NRBC Absolute <0.01 0 - 0.012 K/ul 06/05/2025 5:12 AM EDT [facility] # Neutros 4.22 1.56 - 6.13 K/ L 06/05/2025 5:12 AM EDT [facility] # Lymphs 0.51(L) 1.18 - 3.74 K/ L 06/05/2025 5:12 AM EDT [facility] # Monos 0.51 0.24 - 0.86 K/ L 06/05/2025 5:12 AM EDT [facility] # Eos <0.03(L) 0.04 - 0.36 K/ L 06/05/2025 5:12 AM EDT [facility] # Baso <0.03 0.01 - 0.08 K/ L 06/05/2025 5:12 AM EDT [facility] % Imm Grans 2.40(H) 0.01 - 0.43 % 06/05/2025 5:12 AM EDT [facility] # IG 0.13(H) 0.00 - 0.03 K/uL 06/05/2025 5:12 AM EDT [facility] Blood Venipuncture / Unknown 06/05/2025 4:48 AM EDT 06/05/2025 4:52 AM EDT Narrative [facility] - 06/05/2025 5:12 AM EDT When CBC w/ Auto Diff is ordered the lab will add a Manual Differential as a quality check at no additional charge if: Lymphocytes greater than seventy five percent with normal or increased WBC Monocytes greater than Fifteen percent Basophil greater than four percent Bands >10% or several immature myeloids are seen on scan Blast? Flag noted Atypical Lymph flag noted us Jb Turner MD LAB BLOOD ORDERABLES Final Resu lt [facility] [address] [phone] * (ABNORMAL) Basic Metabolic Panel (06/05/2025 4:48 AM EDT) Sodium 146(H) 136 - 145 meq/L 06/05/2025 5:22 AM EDT [facility] Potassium 4.6 3.4 - 5.1 meq/L 06/05/2025 5:22 AM EDT [facility] CO2 30(H) 22 - 29 meq/L 06/05/2025 5:22 AM EDT [facility] Chloride 101 98 - 112 meq/L 06/05/2025 5:22 AM EDT [facility] Glucose 105 82 - 115 mg/dL 06/05/2025 5:22 AM EDT [facility] BUN 72.3(H) 9.8 - 20.1 mg/dL 06/05/2025 5:22 AM EDT [facility] Creatinine 4.79(H) 0.57 - 1.11 mg/dL 06/05/2025 5:22 AM EDT [facility] BUN/Creatinine 15 8 - 20 06/05/2025 5:22 AM EDT [facility] Calcium 8.7 8.4 - 10.2 mg/dL 06/05/2025 5:22 AM EDT [facility] Anion Gap 20(H) 4 - 12 06/05/2025 5:22 AM EDT [facility] eGFR (mL/min/1.73m2) 8(L) >=60 mL/min/1.7 3m2 06/05/2025 5:22 AM EDT [facility] Comment:ESTIMATED GFR IS NOT ACCURATE CREATININE CLEARANCE IN PREDICTING GLOMERULAR FILTRATION RATE. ESTIMATED GFR IS NOT APPLICABLE FOR DIALYSIS PATIENTS. Osmolality Calc 312.2 mOsm/kg 5:22 AM EDT [facility] Blood Venipuncture / Unknown 06/05/2025 4:48 AM EDT 06/05/2025 4:52 AM EDT us Jb Turner MD LAB BLOOD ORDERABLES Final Resu lt [facility] [address] [phone] * ECG 12 lead (06/05/2025 3:09 AM EDT) SYSTOLIC BLOOD PRESSURE (MCT) 160 mmHg GE MUSE DIASTOLIC BLOOD PRESSURE (MCT) 66 mmHg GE MUSE VENTRICULAR RATE EKG/MIN 70 BPM GE MUSE ATRIAL RATE (MCT) 67 BPM GE MUSE QRS-INTERVAL (MSEC) 132 ms GE MUSE QT Interval 398 ms GE MUSE QTC Interval 429 ms GE MUSE R AXIS (MCT) 36 degrees GE MUSE T Wave [place] 53 degrees GE MUSE [place] Diagnosis Normal sinus rhythm Right bundle branch block Anterior infarct , age undetermined Abnormal ECG When compared with ECG of 04-JUN-2025 19:49, Atrial fibrillation has replaced Sinus rhythm Anterior infarct is now present Confirmed by Brandyn LAO STEVE ([id number]) on 06/05/2025 6:30:39 PM GE MUSE 06/05/2025 3:09 AM EDT 06/05/2025 6:30 PM EDT Jb Turner MD ECG ORDERABLES Final Result Performing Organization Address City/[facility] Co de Phone Number GE MUSE * Glucose, Nova Meter (06/04/2025 8:47 PM EDT) [facility] POC-GLUCOSE 109 70 - 110 mg/dL 06/04/2025 8:48 PM EDT [facility] Comment: In the event of poor peripheral blood flow, venous or arterial blood should be used due to the potential of erroneous results. Protocols Followed Electric Organ Checker [id number] 06/04/2025 8:48 PM EDT [facility] Blood WHOLE BLOOD / Unknown 06/04/2025 8:47 PM EDT 06/04/2025 8:48 PM EDT Narrative [facility] - 06/04/2025 8:48 PM EDT Electric Organ Checker ID is - [id number] Jb Turner MD POINT OF CARE TEST ORDERABLES F inal Result Performing Organization Address [facility] Co de Phone Number [facility] [address] [phone] * ECG 12 lead (06/04/2025 7:49 PM EDT) Pathologist [facility] [place] VENTRICULAR RATE EKG/MIN 58 BPM GE MUSE ATRIAL RATE (MCT) 58 BPM GE MUSE GA Interval 230 ms GE MUSE QRS-INTERVAL (MSEC) 116 ms GE MUSE QT Interval 402 ms GE MUSE QTC Interval 394 ms GE MUSE P [place] 59 degrees GE MUSE R AXIS (MCT) 35 degrees GE MUSE T Wave [place] 12 degrees GE MUSE [place] Diagnosis Sinus bradycardia with 1st degree AV block with premature supraventricular complexes Right bundle branch block Poor data quality, interpretation may be adversely affected When compared with ECG of 04-JUN-2025 07:16, premature supraventricular complexes are now present Criteria for Septal infarct are no longer present Confirmed by Brandyn LAO STEVE ([id number]) on 06/05/2025 6:51:23 PM GE MUSE 06/04/2025 7:49 PM EDT 06/05/2025 6:51 PM EDT us Jb Turner MD ECG ORDERABLES Final Result GE MUSE * (ABNORMAL) Urinalysis w/Microscopic (06/04/2025 6:56 PM EDT) Color, UA Light Yellow 06/04/2025 7:33 PM EDT [facility] Clarity, UA Turbid(A) Clear 06/04/2025 7:33 PM EDT [facility] Specific Goff, UA 1.013 1.005 - 1.030 06/04/2025 7:33 PM EDT [facility] pH, UA 5.5(L) 6.0 - 8.0 06/04/2025 7:33 PM EDT [facility] Leukocytes, UA 250 Danielle/uL(A) Negative 06/04/2025 7:33 PM EDT [facility] Nitrite, UA Negative Negative 06/04/2025 7:33 PM EDT [facility] Protein, UA Trace(A) Negative 06/04/2025 7:33 PM EDT [facility] Glucose, UA 2+(A) Normal 06/04/2025 7:33 PM EDT [facility] Ketones, UA Negative Negative 06/04/2025 7:33 PM EDT [facility] Urobilinogen, UA Normal Normal 06/04/20 25 7:33 PM EDT [facility] Bilirubin, UA Negative Negative 06/04/2025 7:33 PM EDT [facility] Blood, UA 3+(A) Negative 06/04/2025 7:33 PM EDT [facility] RBC, UA 51-100(A) None Seen /HPF 06/04/2025 7:33 PM EDT [facility] WBC, UA 21-50(A) None Seen /HPF 06/04/2025 7:33 PM EDT [facility] Bacteria, UA 1+(A) None Seen, Trace 06/04/2025 7:33 PM EDT [facility] Mucus 1+(A) None Seen 06/04/2025 7:33 PM EDT [facility] SQUAMOUS EPITHELIAL 0-2(A) None Seen /HPF 06/04/2025 7:33 PM EDT [facility] RENAL EPITHELIAL 0-2(A) None Seen /HPF 06/04/2025 7:33 PM EDT [facility] TRANSITIONAL EPITHELIAL CELLS 0-2(A) None Seen /HPF 06/04/2025 7:33 PM EDT [facility] HYALINE CASTS 3-5(A) None Seen /LPF 06/04/2025 7:33 PM EDT [facility] Specimen Source Urine, Ramirez 06/04/2025 7:33 PM EDT [facility] Urine URINE SPECIMEN COLLECTION, CATHETERIZED / Unknown 06/04/2025 6:56 PM EDT 06/04/2025 7:17 PM EDT us Octavio Odell MD URINE ORDERABLES Final Result [facility] [address] [phone] * (ABNORMAL) Renal Function Panel (06/04/2025 5:59 PM EDT) Glucose 143(H) 82 - 115 mg/dL 06/04/2025 6:37 PM EDT [facility] BUN 77.1(H) 9.8 - 20.1 mg/dL 06/04/2025 6:37 PM EDT [facility] Creatinine 5.22(H) 0.57 - 1.11 mg/dL 06/04/2025 6:37 PM EDT [facility] BUN/Creatinine 15 8 - 20 06/04/2025 6:37 PM EDT [facility] eGFR (mL/min/1.73m2) 8(L) >=60 mL/min/1.7 3m2 06/04/2025 6:37 PM EDT [facility] Comment:ESTIMATED GFR IS NOT ACCURATE CREATININE CLEARANCE IN PREDICTING GLOMERULAR FILTRATION RATE. ESTIMATED GFR IS NOT APPLICABLE FOR DIALYSIS PATIENTS. Sodium 141 136 - 145 meq/L 06/04/2025 6:37 PM EDT [facility] Potassium 5.7(H) 3.4 - 5.1 meq/L 06/04/2025 6:37 PM EDT [facility] Chloride 101 98 - 112 meq/L 06/04/2025 6:37 PM EDT [facility] CO2 24 22 - 29 meq/L 06/04/2025 6:37 PM EDT [facility] Anion Gap 22(H) 4 - 12 06/04/2025 6:37 PM EDT [facility] Calcium 9.1 8.4 - 10.2 mg/dL 06/04/2025 6:37 PM EDT [facility] Albumin 2.5(L) 3.5 - 5.0 g/dL 06/04/2025 6:37 PM EDT [facility] Phosphorus 5.3(H) 2.5 - 4.5 mg/dL 06/04/2025 6:37 PM EDT [facility] Osmolality Calc 306.7 mOsm/kg 6:37 PM EDT [facility] Blood ENTIRE RIGHT UPPER ARM / Unknown Venipuncture / Unknown 06/04/2025 5:59 PM EDT 06/04/2025 6:06 PM EDT Narrative [facility] - 06/04/2025 6:37 PM EDT Specimen slightly hemolyzed us Holger Mishra MD LAB BLOOD ORDERABLES Final Resul t [facility] [address] [place] [id number], [facility] [phone] * (ABNORMAL) Glucose, Nova Meter (06/04/2025 5:48 PM EDT) POC-GLUCOSE 137(H) 70 - 110 mg/dL 06/04/2025 5:50 PM EDT [facility] Comment: In the event of poor peripheral blood flow, venous or arterial blood should be used due to the potential of erroneous results. Notified Nurse RBV Protocols Followed Electric Organ Checker [id number] 06/04/2025 5:50 PM EDT [facility] [facility] Blood WHOLE BLOOD / Unknown 06/04/2025 5:48 PM EDT 06/04/2025 5:50 PM EDT Narrative [facility] - 06/04/2025 5:50 PM EDT Electric Organ Checker ID is - [id number] us Jb Turner MD POINT OF CARE TEST ORDERABLES F inal Result [facility] [address] [phone] * XR KUB PORTABLE (06/04/2025 2:58 PM EDT) Anatomical Region Laterality Modality Abdomen X-Ray 06/04/2025 3:25 PM EDT Impressions 06/04/2025 3:34 PM EDT Corpak feeding tube tip terminates in the second and third portions of duodenum. Images reviewed, interpreted, and dictated by Dr. Matt Lund. Transcribed by Marzena Menendez PA-C. Narrative 06/04/2025 3:34 PM EDT KUB 06/04/2025 2:50 PM HISTORY: Feeding tube placement. COMPARISON: None. FINDINGS: A single view of the abdomen was performed. The feeding tube is identified below the diaphragm at the junction of the second and third portions of duodenum. There is a nonspecific, nonobstructive bowel gas pattern. Procedure Note Matt Lund MD - 06/04/2025 KUB 06/04/2025 2:50 PM HISTORY: Feeding tube placement. COMPARISON: None. FINDINGS: A single view of the abdomen was performed. The feeding tube is identified below the diaphragm at the junction of the second and third portions of duodenum. There is a nonspecific, nonobstructive bowel gas pattern. IMPRESSION: Corpak feeding tube tip terminates in the second and third portions of duodenum. Images reviewed, interpreted, and dictated by Dr. Matt Lund. Transcribed by Marzena Menendez PA-C. us Octavio Odell MD IMG DIAGNOSTIC IMAGING ORDERA BLES Final Result * Ultrasound renal limited (06/04/2025 1:28 PM EDT) Anatomical Region Laterality Modality Abdomen, Kidney Ultrasound 06/04/2025 2:35 PM EDT Impressions 06/04/2025 2:45 PM EDT Normal renal ultrasound . Images reviewed, interpreted, and dictated by Dr. Marisela Luther. Transcribed by Maryam Duran PA-C. Narrative 06/04/2025 2:45 PM EDT RENAL ULTRASOUND HISTORY: Acute kidney injury. PROCEDURE: Ultrasound images of the kidneys were obtained. FINDINGS: Limited images of the liver parenchyma demonstrate normal echogenicity . There are gallstones within the gallbladder. The right kidney measures 10 cm in length. It is normal echogenicity . There is no hydronephrosis . The left kidney measures 11 cm in length. It is normal echogenicity . There is no hydronephrosis . Procedure Note Natacha Luther MD - 06/04/2025 RENAL ULTRASOUND HISTORY: Acute kidney injury. PROCEDURE: Ultrasound images of the kidneys were obtained. FINDINGS: Limited images of the liver parenchyma demonstrate normal echogenicity . There are gallstones within the gallbladder. The right kidney measures 10 cm in length. It is normal echogenicity . There is no hydronephrosis . The left kidney measures 11 cm in length. It is normal echogenicity . There is no hydronephrosis . IMPRESSION: Normal renal ultrasound . Images reviewed, interpreted, and dictated by Dr. Marisela Luther. Transcribed by Maryam Duran PA-C. us Steffen Juan PA-C [facility] US ORDERABLES Final Result * Respiratory Panel (06/04/2025 1:23 PM EDT) ADENOVIRUS Not detected Not detected 06/04/2025 3:27 PM EDT [facility] CORONAVIRUS 229E Not detected Not detected 06/04/2025 3:27 PM EDT [facility] CORONAVIRUS HKU1 Not detected Not detected 06/04/2025 3:27 PM EDT [facility] CORONAVIRUS NL63 Not detected Not detected 06/04/2025 3:27 PM EDT [facility] CORONAVIRUS OC43 Not detected Not detected 06/04/2025 3:27 PM EDT [facility] SARS-COV2/RT-PCR Not Detected Not Detected 06/04/2025 3:27 PM EDT [facility] HUMAN METAPNEUMOVIRUS Not detected Not detected 06/04/2025 3:27 PM EDT [facility] HUMAN RHINOVIRUS/ENTEROV IRUS Not detected Not detected 06/04/2025 3:27 PM EDT [facility] INFLUENZA A Not detected Not detected 06/04/2025 3:27 PM EDT [facility] INFLUENZA B Not detected Not detected 06/04/2025 3:27 PM EDT [facility] PARAINFLUENZA VIRUS 1 Not detected Not detected 06/04/2025 3:27 PM EDT [facility] PARAINFLUENZA VIRUS 2 Not detected Not detected 06/04/2025 3:27 PM EDT [facility] PARAINFLUENZA VIRUS 3 Not detected Not detected 06/04/2025 3:27 PM EDT [facility] PARAINFLUENZA VIRUS 4 Not detected Not detected 06/04/2025 3:27 PM EDT [facility] RESPIRATORY SYNCYTIAL VIRUS Not detected Not detected 06/04/2025 3:27 PM EDT [facility] BORDETELLA PARAPERTUSSIS Not detected Not detected 06/04/2025 3:27 PM EDT [facility] BORDETELLA PERTUSSIS Not detected Not detected 06/04/2025 3:27 PM EDT [facility] CHLAMYDIA PNEUMONIAE Not detected Not detected 06/04/2025 3:27 PM EDT [facility] MYCOPLASMA PNEUMONIAE Not detected Not detected 06/04/2025 3:27 PM EDT [facility] Nasopharyngeal NASOPHARYNGEAL SWAB / Unknown 06/04/2025 1:23 PM EDT 06/04/2025 1:36 PM EDT [facility] - 06/04/2025 3:27 PM EDT Testing was performed with RT-PCR methodology using the Xagenic Respiratory Panel 2.1 which has FDA [place] approval for SARS-CoV-2 testing. Negative results do not preclude infection with the SARS-CoV-2 virus and should not be used as the sole basis of patient treatment or public health decisions. Negative results must be considered in the context of an individual's recent exposures, history, and presence of clinical signs/symptoms. Follow-up testing should be performed according to the current CDC recommendations. Other viruses and bacteria not targeted by this PCR panel cannot be excluded; therefore clinical correlation and follow up of serology, culture results, and other molecular studies is required. The results are not intended to be used as the sole means for clinical diagnosis or patient management decisions. This sample was tested at the [facility] using the LangticeArray Respiratory Panel. It is FDA cleared and has been verified and approved by the [facility] for clinical use on nasopharyngeal swab specimens. The performance of the FilmArray RP has not been established in individuals who received influenza vaccine. Recent administration of a nasal influenza vaccine may cause false positive results for Influenza A and/or Influenza B. Octavio Odell MD MICROBIOLOGY - GENERAL ORDERA BLES Final Result Performing Organization Address City/[facility]/ZIP Co de Phone Number [facility] [address] [phone] * MRSA Screen (06/04/2025 1:23 PM EDT) Pathologist [facility] [place] MRSA by PCR [facility] MRSA Not Detected by PCR MRSA Not Detected by PCR DEVICE ID9 06/04/2025 3:27 PM EDT [facility] Nasal BOTH ANTERIOR NARES / Unknown 06/04/2025 1:23 PM EDT 06/04/2025 1:36 PM EDT Octavio Odell MD MICROBIOLOGY - GENERAL ORDERA BLES Final Result Performing Organization Address [facility]/ZIP Co de Phone Number [facility] [address] [phone] * ECHO COMPLETE (DOPPLER / COLOR) W CONTRAST (06/04/2025 1:05 PM EDT) Anatomical Region Laterality Modality Heart Vascular Ultraso und 06/04/2025 12:5 4 PM EDT Narrative 06/04/2025 2:42 PM EDT TRANSTHORACIC ECHOCARDIOGRAPHY REPORT Demographics Patient Name: ULISES POPE : 1940 Age: 84 year(s) Corporate ID Number: [id number] Gender Female 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 HR: 60 bpmPatient Status: Routine IP [facility] History/Tech Notes: Indication: altered mental status R40.4 Impression: Definity ultrasound enhancing agent administered for endocardial border definition. ######################################## Normal sized left ventricle. Mild left ventricular hypertrophy. Visually estimated ejection fraction 55% +/- 5%. Normal left ventricular systolic function with normal systolic strain pattern. Normal left ventricular diastolic function. Normal right ventricular size and function. No hemodynamically significant valvular heart disease. ######################################## Measurements Summary: LVEDd: 3.77 cm LVESd: 2.47 cm IVSEd: 1.28 cm AO Root:3.08 cm LVPWd: 0.8 cm Contractility Score Normal Left Ventricular contractility was noted. LV regional wall motion: (0-Not visualized 1-Normal 2-Hypokinesis 3-Akinesis 4-Dyskinesis 5-Aneurysm) Left Ventricle Peak E-wave: 0.97 Peak A-wave: 1.16 m/s E/A ratio: 0.83 m/s Volume .89 LV length: 7.95 cm CO: 5.84 l/min ml CI: 2.95 l/min*m^2 Volume olpenpil11.77 ml LVOT diameter: 2.11 cm Normal sized left ventricle. Mild left ventricular hypertrophy. Visually estimated ejection fraction 55% +/- 5%. Normal left ventricular systolic function with normal systolic strain pattern. Normal left ventricular diastolic function. No left ventricular masses or thrombi. Right Ventricle Diastolic dimension: 3.39 RV systolic pressure: 24.99 mmHg cm Normal sized right ventricle. Normal TAPSE c/w normal right ventricular function Left Atrium LA dimension: 3.85 cm LA volume:48.99 ml LA/Aorta: 1.25 Normal sized left atrium. Normal left atrial volume index 24.74 ml/m^2. Intact atrial septum. No atrial mass or thrombus. Right Atrium Abnormal right atrial size. Intact atrial septum. No atrial mass or thrombus. Mitral Valve Deceleration time: Mean velocity: 0.8 178.78 msec Area (continuity): m/s 2.95 cm^2 Mean gradient: 2.84 mmHg Peak gradient: 6.38 mmHg Structurally normal mitral valve. Mitral valve annulus calcification. Mild (1+) mitral regurgitation. No mitral stenosis. No masses or vegetations seen. Aortic Valve LVOT VTI: 27.84 cm Mildly thickend free edges of the aortic valve leaflets. Trace aortic valve regurgitation. No aortic stenosis. No masses or vegetations seen. Tricuspid Valve TR velocity: 2.06 m/s TR gradient: 16.07212 mmHg Estimated RAP: 8 mmHg RVSP: 24.99 mmHg Structurally normal tricuspid valve. Trace tricuspid regurgitation. No tricuspid stenosis. No masses or vegetations seen. Pulmonic Valve Acceleration time: 74.22 msec PASP: 24.99 mmHg Structurally normal pulmonic valve. Abnormal pulmonary acceleration time. Trace pulmonic valve regurgitation. No pulmonic stenosis. No masses or vegetations seen. Great Vessels Aorta Aortic Root: 3.08 cm Ascending Aorta: 3.12 cm LVOT Diameter: 2.11 cm Visualized thoracic aorta is normal. Normal aortic root. No evidence of dissection. Dilated IVC with partial inspiratory collapse. Borderline elevated central venous pressure (8-12mmHg). Pericardium / Pleura No pericardial effusion. 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 HR: 60 bpmPatient Status: Routine IP Study Location: [facility]ical Quality: Adequate visualization History/Tech Notes: Indication: altered mental status R40.4 Impression: Definity ultrasound enhancing agent administered for endocardial border definition. ######################################## Normal sized left ventricle. Mild left ventricular hypertrophy. Visually estimated ejection fraction 55% +/- 5%. Normal left ventricular systolic function with normal systolic strain pattern. Normal left ventricular diastolic function. Normal right ventricular size and function. No hemodynamically significant valvular heart disease. ######################################## Measurements Summary: LVEDd: 3.77 cm LVESd: 2.47 cm IVSEd: 1.28 cm AO Root:3.08 cm LVPWd: 0.8 cm Contractility Score Normal Left Ventricular contractility was noted. LV regional wall motion: (0-Not visualized 1-Normal 2-Hypokinesis 3-Akinesis 4-Dyskinesis 5-Aneurysm) Left Ventricle Peak E-wave: 0.97 Peak A-wave: 1.16 m/s E/A ratio: 0.83 m/s Volume losctrxzr99.89 LV length: 7.95 cm CO: 5.84 l/min ml CI: 2.95 l/min*m^2 Volume erluzwlf31.77 ml LVOT diameter: 2.11 cm Normal sized left ventricle. Mild left ventricular hypertrophy. Visually estimated ejection fraction 55% +/- 5%. Normal left ventricular systolic function with normal systolic strain pattern. Normal left ventricular diastolic function. No left ventricular masses or thrombi. Right Ventricle Diastolic dimension: 3.39 RV systolic pressure: 24.99 mmHg cm Normal sized right ventricle. Normal TAPSE c/w normal right ventricular function Left Atrium LA dimension: 3.85 cm LA volume:48.99 ml LA/Aorta: 1.25 Normal sized left atrium. Normal left atrial volume index 24.74 ml/m^2. Intact atrial septum. No atrial mass or thrombus. Right Atrium Abnormal right atrial size. Intact atrial septum. No atrial mass or thrombus. Mitral Valve Deceleration time: Mean velocity: 0.8 178.78 msec Area (continuity): m/s 2.95 cm^2 Mean gradient: 2.84 mmHg Peak gradient: 6.38 mmHg Structurally normal mitral valve. Mitral valve annulus calcification. Mild (1+) mitral regurgitation. No mitral stenosis. No masses or vegetations seen. Aortic Valve LVOT VTI: 27.84 cm Mildly thickend free edges of the aortic valve leaflets. Trace aortic valve regurgitation. No aortic stenosis. No masses or vegetations seen. Tricuspid Valve TR velocity: 2.06 m/s TR gradient: 16.20633 mmHg Estimated RAP: 8 mmHg RVSP: 24.99 mmHg Structurally normal tricuspid valve. Trace tricuspid regurgitation. No tricuspid stenosis. No masses or vegetations seen. Pulmonic Valve Acceleration time: 74.22 msec PASP: 24.99 mmHg Structurally normal pulmonic valve. Abnormal pulmonary acceleration time. Trace pulmonic valve regurgitation. No pulmonic stenosis. No masses or vegetations seen. Great Vessels Aorta Aortic Root: 3.08 cm Ascending Aorta: 3.12 cm LVOT Diameter: 2.11 cm Visualized thoracic aorta is normal. Normal aortic root. No evidence of dissection. Dilated IVC with partial inspiratory collapse. Borderline elevated central venous pressure (8-12mmHg). Pericardium / Pleura No pericardial effusion. us Octavio Odell MD CV ECHO ORDERABLES Final Resu lt * (ABNORMAL) Glucose, Nova Meter (06/04/2025 11:37 AM EDT) POC-GLUCOSE 158(H) 70 - 110 mg/dL 06/04/2025 11:39 AM EDT [facility] Comment: In the event of poor peripheral blood flow, venous or arterial blood should be used due to the potential of erroneous results. Protocols Followed Notified Nurse RBV Electric Organ Checker [id number] 06/04/2025 11:39 AM EDT [facility] Blood WHOLE BLOOD / Unknown 06/04/2025 11:37 AM EDT 06/04/2025 11:39 AM EDT Narrative [facility] - 06/04/2025 11:39 AM EDT Electric Organ Checker ID is - [id number] us Jb Turner MD POINT OF CARE TEST ORDERABLES F inal Result [facility] [address] [phone] * [id number] Activity(SENDOUT) (06/04/2025 10:58 AM EDT) [id number] Activity 80 >=61 % 025 10:24 AM EDT [facility] Comment: INTERPRETIVE INFORMATION: [id number] Activity [id number] levels of less than 10 percent may be associated with either inherited (Lynda-Brad Syndrome) or acquired thrombotic thrombocytopenic purpura (TTP). A variety of medical conditions may result in a mild to moderate deficiency of NGFAWP69 activity. Recent plasma exchange therapy may raise the observed QYWNSM69 activity. This test was developed and its performance characteristics determined by [facility]. It has not been cleared or approved by the [place] Food and Drug Administration. This test was performed in a CLIA certified laboratory and is intended for clinical purposes. Performed By: [facility] [address] [place] [address] Medical Liaison: Adolfo [place] MD, PhD CLIA Number: [id number] Blood Venipuncture / Unknown 06/04/2025 10:58 AM EDT 06/04/2025 10:58 AM EDT Holger Mishra MD LAB BLOOD ORDERABLES Final Resul t [facility] [address] [phone] * (ABNORMAL) Renal Function Panel (06/04/2025 10:58 AM EDT) Glucose 183(H) 82 - 115 mg/dL 06/04/2025 11:26 AM EDT [facility] BUN 81.4(H) 9.8 - 20.1 mg/dL 06/04/2025 11:26 AM EDT [facility] Creatinine 5.35(H) 0.57 - 1.11 mg/dL 06/04/2025 11:26 AM EDT [facility] BUN/Creatinine 15 8 - 20 06/04/2025 11:26 AM EDT [facility] eGFR (mL/min/1.73m2) 7(L) >=60 mL/min/1.7 3m2 06/04/2025 11:26 AM EDT [facility] Comment:ESTIMATED GFR IS NOT ACCURATE CREATININE CLEARANCE IN PREDICTING GLOMERULAR FILTRATION RATE. ESTIMATED GFR IS NOT APPLICABLE FOR DIALYSIS PATIENTS. Sodium 142 136 - 145 meq/L 06/04/2025 11:26 AM EDT [facility] Potassium 6.0(HH) 3.4 - 5.1 meq/L 06/04/2025 11:26 AM EDT [facility] Chloride 103 98 - 112 meq/L 06/04/2025 11:26 AM EDT [facility] CO2 23 22 - 29 meq/L 06/04/2025 11:[facility] Anion Gap 22(H) 4 - 12 06/04/2025 11:26 AM [facility] Calcium 9.5 8.4 - 10.2 mg/dL 06/04/2025 11:26 AM [facility] Albumin 2.6(L) 3.5 - 5.0 g/dL 06/04/2025 11:26 AM T [facility] Phosphorus 5.1(H) 2.5 - 4.5 mg/dL 06/04/2025 11:26 AM [facility] Osmolality Calc 312.4 mOsm/kg 11:26 AM [facility] Blood Venipuncture / Unknown 06/04/2025 10:58 AM EDT 06/04/2025 10:58 AM EDT Bridgette Perez MD LAB BLOOD ORDERABLES Final Resu lt [facility] [address] [phone] * SHAYAN Reflexive Profile(SENDOUT) (06/04/2025 10:57 AM EDT) Anti-Nuclear Ab (SHAYAN), IgG by NORM None Detected None Detected 06/07/2025 10:36 AM EDT [facility] Comment: No Anti-Nuclear Antibodies (SHAYAN) detected by NORM. The Extractable Nuclear Antigen Antibodies (PROCESS CHEMIST, Starks, SSA 52, SSA 60, Scleroderma, Ana Cristina-1 and SSB) and Double Stranded DNA (dsDNA) Antibody, IgG will not be performed. If suspicion of connective tissue disease is strong, and SHAYAN is negative by NORM, consider testing for SHAYAN by IFA ([id number]). INTERPRETIVE INFORMATION: Anti-Nuclear Antibodies (SHAYAN), IgG by NORM Antinuclear Antibodies (SHAYAN), IgG by NORM: SHAYAN specimens are screened using enzyme-linked immunosorbent assay (NORM) methodology. All NORM results reported as Detected are further tested by indirect fluorescent assay (IFA) using HEp-2 substrate with an IgG-specific conjugate. The SHAYAN NORM screen is designed to detect antibodies against dsDNA, histones, SS-A (Ro), SS-B (La), Starks, Starks/PROCESS CHEMIST, Scl-70, Ana Cristina-1, centromeric proteins, other antigens extracted from the HEp-2 cell nucleus. SHAYAN NORM assays have been reported to have lower sensitivities than SHAYAN IFA for systemic autoimmune rheumatic diseases (SARD). Negative results do not necessarily rule out SARD. Performed By: [facility] [address] [place] [address] Medical Liaison: Adolfo [place] MD, PhD CLIA Number: [id number] Blood Venipuncture / Unknown 06/04/2025 10:57 AM EDT 06/04/2025 10:57 AM EDT us Holger Mishra MD LAB BLOOD ORDERABLES Final Resul t [facility] [address] [place] [address], [facility] [phone] * Complement Components 3 and 4(SENDOUT) (06/04/2025 10:53 AM EDT) Complement Component 3 109 90 - 180 mg/dL 06/06/2025 2:24 AM EDT [facility] Comment: REFERENCE INTERVAL: Complement Component 3 Access complete set of age- and/or gender-specific reference intervals for this test in the [facility] Test Directory ([facility]). Complement Component 4 30 10 - 40 mg/dL 06/06/2025 2:24 AM EDT [facility] Comment: REFERENCE INTERVAL: Complement Component 4 Access complete set of age- and/or gender-specific reference intervals for this test in the [facility] Test Directory ([employer]). Performed By: [facility] [address] [place] [address] Medical Liaison: Adolfo [place] MD, PhD CLIA Number: [id number] Blood Venipuncture / Unknown 06/04/2025 10:53 AM EDT 06/04/2025 10:53 AM EDT Holger Mishra MD LAB BLOOD ORDERABLES Final Resul t [facility] [address] [place] [address], [facility] [phone] * XR chest AP portable (06/04/2025 9:07 AM EDT) Anatomical Region Laterality Modality Chest X-Ray 06/04/2025 10:0 0 AM EDT Impressions 06/04/2025 10:02 AM EDT No acute cardiopulmonary process. Images reviewed, interpreted, and dictated by Dr. Matt Lund. Transcribed by Marzena Menendez PA-C. Narrative 06/04/2025 10:02 AM EDT PORTABLE CHEST 06/04/2025 9:06 AM HISTORY: Acute shortness of breath COMPARISON: 6 hours prior FINDINGS: The heart is mildly enlarged. The mediastinum is unremarkable. Lungs are underinflated with chronic changes throughout both lungs. There is bibasilar atelectasis. There is no pneumothorax. The osseous structures are unremarkable. Procedure Note Matt Lund MD - 06/04/2025 PORTABLE CHEST 06/04/2025 9:06 AM HISTORY: Acute shortness of breath COMPARISON: 6 hours prior FINDINGS: The heart is mildly enlarged. The mediastinum is unremarkable. Lungs are underinflated with chronic changes throughout both lungs. There is bibasilar atelectasis. There is no pneumothorax. The osseous structures are unremarkable. IMPRESSION: No acute cardiopulmonary process. Images reviewed, interpreted, and dictated by Dr. Matt Lund. Transcribed by Marzena [place], PA-C. Sima Mancia MD IMG DIAGNOSTIC IMAGING ORDERA BLES Final Result * ECG 12 lead (06/04/2025 7:16 AM EDT) [facility] SYSTOLIC BLOOD PRESSURE (MCT) 112 mmHg GE MUSE DIASTOLIC BLOOD PRESSURE (MCT) 53 mmHg GE MUSE VENTRICULAR RATE EKG/MIN 65 BPM GE MUSE ATRIAL RATE (MCT) 65 BPM GE MUSE GA Interval 240 ms GE MUSE QRS-INTERVAL (MSEC) 128 ms GE MUSE QT Interval 420 ms GE MUSE QTC Interval 436 ms GE MUSE P [place] 25 degrees GE MUSE R AXIS (MCT) 20 degrees GE MUSE T Wave [place] 49 degrees GE MUSE [place] Diagnosis Sinus rhythm with 1st degree AV block Right bundle branch block No previous ECGs available Confirmed by Brandyn CONDE, LIN ([id number]) on 06/04/2025 6:17:17 PM GE MUSE 06/04/2025 7:16 AM EDT 06/04/2025 6:17 PM EDT Jb Turner MD ECG ORDERABLES Final Result GE MUSE * (ABNORMAL) Glucose, Nova Meter (06/04/2025 5:56 AM EDT) [facility] POC-GLUCOSE 133(H) 70 - 110 mg/dL 06/04/2025 5:58 AM EDT [facility] Comment: In the event of poor peripheral blood flow, venous or arterial blood should be used due to the potential of erroneous results. Protocols Followed Electric [employer]er [id number] 06/04/2025 5:58 AM EDT [facility] Blood WHOLE BLOOD / Unknown 06/04/2025 5:56 AM EDT 06/04/2025 5:58 AM EDT Narrative [facility] - 06/04/2025 5:58 AM EDT [employer] Checker ID is - [id number] Sima Mancia MD POINT OF CARE TEST ORDERABLES Final Result [facility] [address] [phone] * (ABNORMAL) PROBNP (06/04/2025 5:02 AM EDT) ProBNP (pg/mL) 5,625(H) 16 - 956 pg/mL 06/04/2025 10:38 AM EDT [facility] Blood Venipuncture / Unknown 06/04/2025 5:02 AM EDT 06/04/2025 5:02 AM EDT [facility] - 06/04/2025 10:38 AM EDT As of January 14, 2025: NT-ProBNP is a new test on our [employer] Immunoassay analyzer. Please review new age and gender specific reference ranges. us Octavio Odell MD LAB BLOOD ORDERABLES Final Re sult [facility] [address] [phone] * Procalcitonin (06/04/2025 5:02 AM EDT) [facility] Procalcitonin 0.23 See Comment ng/mL 06/04/2025 10:38 AM EDT [facility] Comment: Sepsis comment <0.5 Antibiotics Discouraged >0.5 Antibiotics Encouraged *Assessing Sepsis Risk and Severity* >2.0 ng/mL High Risk for Progression to severe sepsis and/or septic shock 0.5-2.0 ng/mL Sepsis should be considered <0.5 ng/mL Low Risk for Progression to Severe and/or septic shock Lower Respiratory Tract Infection (LRT) <0.25 Antibiotics Discouraged >0.25 Antibiotics Encouraged *Procalcitonin results should be interpreted carefully in settings that are known to falsely elevate results such as renal failure, trauma, localized infections and eddy. Blood Venipuncture / Unknown 06/04/2025 5:02 AM EDT 06/04/2025 5:02 AM EDT [facility] - 06/04/2025 10:38 AM EDT Specimen slightly hemolyzed us Octavio Odell MD LAB BLOOD ORDERABLES Final Re sult [facility] [address] [phone] * (ABNORMAL) Lactate dehydrogenase (LDH) (06/04/2025 5:02 AM EDT) LDH 431(H) 125 - 220 U/L 06/04/2025 9:08 AM EDT [facility] Blood Venipuncture / Unknown 06/04/2025 5:02 AM EDT 06/04/2025 5:02 AM EDT Narrative [facility] - 06/04/2025 9:08 AM EDT Specimen slightly hemolyzed us Holger Mishra MD LAB BLOOD ORDERABLES Final Resul t Performing Organization Address City/[facility]/ZIP Co de Phone Number [facility] [address] [phone] * (ABNORMAL) Magnesium (06/04/2025 5:02 AM EDT) Magnesium 3.2(H) 1.6 - 2.6 mg/dL 06/04/2025 6:19 AM EDT [facility] Blood Venipuncture / Unknown 06/04/2025 5:02 AM EDT 06/04/2025 5:02 AM EDT Narrative [facility] - 06/04/2025 6:19 AM EDT Specimen slightly hemolyzed us Sima Mancia MD LAB BLOOD ORDERABLES Final Re sult [facility] [address] [phone] * (ABNORMAL) Vitamin B12 (06/04/2025 5:02 AM EDT) Vitamin B12 >2,000(H) 213 - 816 pg/mL 06/04/2025 6:19 AM EDT [facility] Blood Venipuncture / Unknown 06/04/2025 5:02 AM EDT 06/04/2025 5:02 AM EDT [facility] - 06/04/2025 6:19 AM EDT Specimen slightly hemolyzed Sima Mancia MD LAB BLOOD ORDERABLES Final Re sult Performing Organization Address City/[facility]/ZIP Co de Phone Number [facility] [address] [phone] * Ferritin (06/04/2025 5:02 AM EDT) Ferritin 162.66 4.63 - 204.00 ng/mL 06/04/2025 6:16 AM EDT [facility] Blood Venipuncture / Unknown 06/04/2025 5:02 AM EDT 06/04/2025 5:02 AM EDT [facility] - 06/04/2025 6:16 AM EDT Specimen slightly hemolyzed Sima Mancia MD LAB BLOOD ORDERABLES Final Re sult Performing Organization Address [facility] Co de Phone Number [facility] [address] [phone] * (ABNORMAL) Iron and TIBC (06/04/2025 5:02 AM EDT) Iron 101 50 - 170 ug/dL 06/04/2025 6:16 AM EDT [facility] TIBC 244(L) 250 - 435 ug/dL 06/04/2025 6:16 AM EDT [facility] % Saturation 41 % 06/04/2025 6:16 AM EDT [facility] UIBC 143 06/04/2025 6:16 AM EDT [facility] Blood Venipuncture / Unknown 06/04/2025 5:02 AM EDT 06/04/2025 5:02 AM EDT [facility] - 06/04/2025 6:16 AM EDT Specimen slightly hemolyzed us Sima Mancia MD LAB BLOOD ORDERABLES Final Re sult [facility] [address] [place] [id number] [phone] * (ABNORMAL) Comprehensive metabolic panel (06/04/2025 5:02 AM EDT) Sodium 145 136 - 145 meq/L 06/04/2025 6:18 AM EDT [facility] Potassium 6.5(HH) 3.4 - 5.1 meq/L 06/04/2025 6:18 AM EDT [facility] Chloride 110 98 - 112 meq/L 06/04/2025 6:18 AM EDT [facility] CO2 17(L) 22 - 29 meq/L 06/04/2025 6:18 AM EDT [facility] Calcium 8.7 8.4 - 10.2 mg/dL 06/04/2025 6:18 AM EDT [facility] Glucose 116(H) 82 - 115 mg/dL 06/04/2025 6:18 AM T [facility] BUN 79.5(H) 9.8 - 20.1 mg/dL 06/04/2025 6:18 AM T [facility] Creatinine 5.35(H) 0.57 - 1.11 mg/dL 06/04/2025 6:18 AM [facility] BUN/Creatinine 15 8 - 20 06/04/2025 6:18 AM [facility] eGFR (mL/min/1.73m2) 7(L) >=60 mL/min/1. 73m2 06/04/2025 6:18 AM [facility] Comment:ESTIMATED GFR IS NOT ACCURATE CREATININE CLEARANCE IN PREDICTING GLOMERULAR FILTRATION RATE. ESTIMATED GFR IS NOT APPLICABLE FOR DIALYSIS PATIENTS. Albumin 2.5(L) 3.5 - 5.0 g/dL 06/04/2025 6:18 AM EDT [facility] Alkaline Phosphatase 63 40 - 150 U/L 06/04/2025 6:18 AM T [facility] ALT 10 <=34 U/L 06/04/2025 6:18 AM EDT [facility] Comment: ALT2 reagent used for testing does not contain P5P supplementation and therefore may miss ALT elevations in patients with B6 deficiency. This population may be as high as 10% in the [place], with risk factors including malabsorption, drug interactions, and alcoholic hepatitis. AST 36(H) 11 - 34 U/L 06/04/2025 6:18 AM EDT [facility] Comment: AST2 reagent used for testing does not contain P5P supplementation and therefore may miss AST elevations in patients with B6 deficiency. This population may be as high as 10% in the [place], with risk factors including malabsorption, drug interactions, and alcoholic hepatitis. Total Bilirubin 0.5 0.2 - 1.2 mg/dL 06/04/2025 6:18 AM EDT [facility] Protein, Total 6.3(L) 6.4 - 8.3 g/dL 06/04/2025 6:18 AM EDT [facility] Globulin 3.8 2.5 - 4.1 g/dL 06/04/2025 6:18 AM EDT [facility] Anion Gap 25(H) 4 - 12 06/04/2025 6:18 AM EDT [facility] A/G Ratio 0.7 0.7 - 1.9 06/04/2025 6:18 AM EDT [facility] Osmolality Calc 313.5 mOsm/kg 6:18 AM EDT [facility] Blood Venipuncture / Unknown 06/04/2025 5:02 AM EDT 06/04/2025 5:02 AM EDT Narrative [facility] - 06/04/2025 6:18 AM EDT Specimen slightly hemolyzed us Steffen Juan PA-C LAB BLOOD ORDERABLES Final Res ult [facility] 1 [place] [address], [facility] [phone] * (ABNORMAL) CBC with automated diff (06/04/2025 4:41 AM EDT) WBC 7.8 4.0 - 10.0 K/ L 06/04/2025 4:53 AM EDT [facility] RBC 3.88(L) 3.93 - 5.22 M/ L 06/04/2025 4:53 AM EDT [facility] Hemoglobin 11.1(L) 11.2 - 15.7 GM/DL 06/04/2025 4:53 AM EDT [facility] Hematocrit 36.4 34.1 - 44.9 % 06/04/2025 4:53 AM EDT [facility] MCV 94 79 - 95 fL 06/04/2025 4:53 AM EDT [facility] MCH 28.6 25.6 - 32.2 pg 06/04/2025 4:53 AM EDT [facility] MCHC 30.5(L) 32.2 - 35.5 GM/DL 06/04/2025 4:53 AM EDT [facility] RDW 17.4(H) 11.7 - 14.4 % 06/04/2025 4:53 AM EDT [facility] Platelets 83(L) 140 - 375 K/CU MM 06/04/2025 4:53 AM EDT [facility] MPV 11.5 9.4 - 12.3 fL 06/04/2025 4:53 AM EDT [facility] % Neutros 88(H) 34 - 71 % 06/04/2025 4:53 AM EDT [facility] % Lymphs 5(L) 19 - 52 % 06/04/2025 4:53 AM EDT [facility] % Monos 4(L) 5 - 13 % 06/04/2025 4:53 AM EDT [facility] % Eos 0(L) 1 - 6 % 06/04/2025 4:53 AM EDT [facility] % Baso 1 0 - 1 % 06/04/2025 4:53 AM EDT [facility] NRBC Absolute <0.01 0 - 0.012 K/ul 06/04/2025 4:53 AM EDT [facility] # Neutros 6.81(H) 1.56 - 6.13 K/ L 06/04/2025 4:53 AM EDT [facility] # Lymphs 0.37(L) 1.18 - 3.74 K/ L 06/04/2025 4:53 AM EDT [facility] # Monos 0.28 0.24 - 0.86 K/ L 06/04/2025 4:53 AM EDT [facility] # Eos 0.03(L) 0.04 - 0.36 K/ L 06/04/2025 4:53 AM EDT [facility] # Baso 0.04 0.01 - 0.08 K/ L 06/04/2025 4:53 AM EDT [facility] % Imm Grans 3.10(H) 0.01 - 0.43 % 06/04/2025 4:53 AM EDT [facility] # IG 0.24(H) 0.00 - 0.03 K/uL 06/04/2025 4:53 AM EDT [facility] Blood Venipuncture / Unknown 06/04/2025 4:41 AM EDT 06/04/2025 4:41 AM EDT Narrative [facility] - 06/04/2025 4:53 AM EDT When CBC w/ Auto Diff is ordered the lab will add a Manual Differential as a quality check at no additional charge if: Lymphocytes greater than seventy five percent with normal or increased WBC Monocytes greater than Fifteen percent Basophil greater than four percent Bands >10% or several immature myeloids are seen on scan Blast? Flag noted Atypical Lymph flag noted us Steffen Juan PA-C LAB BLOOD ORDERABLES Final Res ult [facility] [address] [phone] * XR chest AP portable (06/04/2025 1:49 AM EDT) Anatomical Region Laterality Modality Chest X-Ray 06/04/2025 7:29 AM EDT Impressions 06/04/2025 7:38 AM EDT No acute cardiopulmonary process . Images reviewed, interpreted, and dictated by Dr. Matt Lund. Transcribed by Pal Cosby PA-C Narrative 06/04/2025 7:38 AM EDT PORTABLE CHEST 06/04/2025 1:44 AM HISTORY: Acute shortness of breath. COMPARISON: May 18, 2020. FINDINGS: The heart is normal in size . The mediastinum is unremarkable . Lungs are underinflated with mild chronic changes in the bases. There is no pneumothorax . Procedure Note Matt Lund MD - 06/04/2025 PORTABLE CHEST 06/04/2025 1:44 AM HISTORY: Acute shortness of breath. COMPARISON: May 18, 2020. FINDINGS: The heart is normal in size . The mediastinum is unremarkable . Lungs are underinflated with mild chronic changes in the bases. There is no pneumothorax . IMPRESSION: No acute cardiopulmonary process . Images reviewed, interpreted, and dictated by Dr. Matt Lund. Transcribed by Pal Cosby PA-C Steffen Juan PA-C IMG DIAGNOSTIC IMAGING ORDERAB LES Final Result * Chloride, random urine (06/03/2025 11:50 PM EDT) ChlorideUr 109 See Comment mmol/L 06/04/2025 12:17 AM EDT [facility] Comment:Reference range not established Urine 06/03/2025 11:5 0 PM EDT 06/03/2025 11:50 PM EDT Sima Mancia MD URINE ORDERABLES Final Result [facility] [address] [phone] * Urea Nitrogen, random urine (06/03/2025 11:50 PM EDT) Urea Nitrogen, Ur 328 mg/dL 06/04/2025 12:14 AM EDT [facility] Comment: Reference Range not established Reference range not established Urine 06/03/2025 11:5 0 PM EDT 06/03/2025 11:50 PM EDT us Sima Mancia MD URINE ORDERABLES Final Result [facility] [address] [phone] * Legionella antigen, urine (06/03/2025 11:50 PM EDT) Legionella Urine Antigen Presumptive negative for L. pneumophila serogroup 1 antigen in urine- see comment Presumptive negative for L. pneumophila serogroup 1 antigen in urine- see comment 06/04/2025 12:12 AM EDT [facility] Urine 06/03/2025 11:5 0 PM EDT 06/03/2025 11:50 PM EDT Narrative [facility] - 06/04/2025 12:12 AM EDT Presumptive negative for L. pneumophilia serogroup 1 antigen in urine, suggesting no recent or current infection. Infection due to Legionella cannot be ruled out since other serogroups and species may cause disease, antigen may not be present in urine in early infection, and the level of antigen present in the specimen may be below the detection limit of the test. us Sima Mancia MD URINE ORDERABLES Final Result Performing Organization Address City/[facility]/ZIP Co de Phone Number [facility] [address] [phone] * Strep pneumoniae urine antigen (06/03/2025 11:50 PM EDT) Strep pneumoniae Antigen Presumptive negative for pneumococcal pneumonia - see comment Presumptive negative for pneumococcal pneumonia- see comment 06/04/2025 12:12 AM EDT [facility] Urine URINE / Unknown 06/03/2025 1 1:50 PM EDT 06/03/2025 11:50 PM EDT Narrative [facility] - 06/04/2025 12:12 AM EDT A presumptive negative result suggests no current or recent pneumococcal infection. Infection due to S. pneumoniae cannot be ruled out since the antigen present in the specimen may be below the detection limit of the test. us Sima Mancia MD MICROBIOLOGY - GENERAL ORDERA BLES Final Result Performing Organization Address [facility] Co de Phone Number [facility] 1 [place] [address], [facility] [phone] * (ABNORMAL) Creatinine, random urine (06/03/2025 11:50 PM EDT) Creatinine, Ur 39.00(L) 47.00 - 110.00 mg/dL 06/04/2025 12:14 AM EDT [facility] Urine 06/03/2025 11:5 0 PM EDT 06/03/2025 11:50 PM EDT us Steffen MIMS-C URINE ORDERABLES Final Result Performing Organization Address [facility] Co de Phone Number [facility] [address] [phone] * (ABNORMAL) Protein, random urine (06/03/2025 11:50 PM EDT) Protein, Urine 15(H) 1 - 14 mg/dL 06/04/2025 12:14 AM EDT [facility] Comment:No normal reference range established Urine 06/03/2025 11:5 0 PM EDT 06/03/2025 11:50 PM EDT us Steffen MIMS-Halle URINE ORDERABLES Final Result Performing Organization Address [facility] Co de Phone Number [facility] [address] [phone] * Sodium, random urine (06/03/2025 11:50 PM EDT) Sodium Urine 109 See Comment meq/L 06/04/2025 12:14 AM EDT [facility] Comment:Reference Range not established Urine 06/03/2025 11:5 0 PM EDT 06/03/2025 11:50 PM EDT us Steffen MIMS-C URINE ORDERABLES Final Result Performing Organization Address [facility]/ZIP Co de Phone Number [facility] [address] [phone] * Creatine Kinase (CK) (06/03/2025 11:43 PM EDT) Total CK 62 29 - 168 U/L 06/04/2025 12:07 AM EDT [facility] Blood Venipuncture / Unknown 06/03/2025 11:43 PM EDT 06/03/2025 11:47 PM EDT Steffen MIMS-C LAB BLOOD ORDERABLES Final Res ult Performing Organization Address [facility] Co de Phone Number [facility] [address] [phone] * Phosphorus (06/03/2025 11:43 PM EDT) Phosphorus 4.4 2.5 - 4.5 mg/dL 06/04/2025 12:07 AM EDT [facility] Blood Venipuncture / Unknown 06/03/2025 11:43 PM EDT 06/03/2025 11:47 PM EDT Steffen MIMS-C LAB BLOOD ORDERABLES Final Res ult Performing Organization Address City/[facility]/ZIP Co de Phone Number [facility] [address] [phone] * (ABNORMAL) Magnesium (06/03/2025 11:43 PM EDT) Magnesium 1.3(L) 1.6 - 2.6 mg/dL 06/04/2025 12:07 AM EDT [facility] Blood Venipuncture / Unknown 06/03/2025 11:43 PM EDT 06/03/2025 11:47 PM EDT Steffen C Juan PA-C LAB BLOOD ORDERABLES Final Res ult [facility] [address] [phone] * (ABNORMAL) Basic Metabolic Panel (06/03/2025 11:43 PM EDT) Sodium 141 136 - 145 meq/L 06/04/2025 12:13 AM [facility] Potassium 6.1(HH) 3.4 - 5.1 meq/L 06/04/2025 12:13 AM [facility] CO2 16(L) 22 - 29 meq/L 06/04/2025 12:13 AM [facility] Chloride 109 98 - 112 meq/L 06/04/2025 12:13 AM [facility] Glucose 85 82 - 115 mg/dL 06/04/2025 12:13 AM [facility] BUN 82.5(H) 9.8 - 20.1 mg/dL 06/04/2025 12:13 AM [facility] Creatinine 5.62(H) 0.57 - 1.11 mg/dL 06/04/2025 12:13 AM [facility] BUN/Creatinine 15 8 - 20 06/04/2025 12:13 AM [facility] Calcium 8.9 8.4 - 10.2 mg/dL 06/04/2025 12:13 AM [facility] Anion Gap 22(H) 4 - 12 06/04/2025 12:13 AM [facility] eGFR (mL/min/1.73m2) 7(L) >=60 mL/min/1.7 3m2 06/04/2025 12:13 AM [facility] Comment:ESTIMATED GFR IS NOT ACCURATE CREATININE CLEARANCE IN PREDICTING GLOMERULAR FILTRATION RATE. ESTIMATED GFR IS NOT APPLICABLE FOR DIALYSIS PATIENTS. Osmolality Calc 305.4 mOsm/kg 12:13 AM [facility] Blood Venipuncture / Unknown 06/03/2025 11:43 PM EDT 06/03/2025 11:47 PM EDT Steffen MIMS-C LAB BLOOD ORDERABLES Final Res ult Performing Organization Address [facility] Co de Phone Number [facility] [address] [phone] * (ABNORMAL) CBC Scan (06/03/2025 11:42 PM EDT) Platelet Estimate Decreased( A) Adequate 06/04/2025 12:48 AM EDT [facility] RBC Morphology Normal Normal 06/04/2025 12:48 AM EDT [facility] Blood Venipuncture / Unknown 06/03/2025 11:42 PM EDT 06/03/2025 11:47 PM EDT Steffen Juan PA-C LAB BLOOD ORDERABLES Final Res ult Performing Organization Address [facility] Phone Number [facility] [address] [phone] * (ABNORMAL) Lactic Acid with reflex (SJ) (06/03/2025 11:42 PM EDT) Lactic Acid Level (mmol/L) 2.4(HH) 0.5 - 2.2 mmol/L 06/04/2025 12:13 AM EDT [facility] Blood Venipuncture / Unknown 06/03/2025 11:42 PM EDT 06/03/2025 11:47 PM EDT Steffen MIMS-C LAB BLOOD ORDERABLES Final Res ult Performing Organization Address [facility] Co de Phone Number [facility] [address] [phone] * (ABNORMAL) CBC with automated diff (06/03/2025 11:42 PM EDT) WBC 5.4 4.0 - 10.0 K/ L 06/04/2025 12:10 AM EDT [facility] RBC 3.53(L) 3.93 - 5.22 M/ L 06/04/2025 12:10 AM EDT [facility] Hemoglobin 10.1(L) 11.2 - 15.7 GM/DL 06/04/2025 12:10 [facility] Hematocrit 33.5(L) 34.1 - 44.9 % 06/04/2025 12:10 AM [facility] MCV 95 79 - 95 fL 06/04/2025 12:10 AM [facility] MCH 28.6 25.6 - 32.2 pg 06/04/2025 12:10 AM EDT [facility] MCHC 30.1(L) 32.2 - 35.5 GM/DL 06/04/2025 12:10 AM [facility] RDW 17.3(H) 11.7 - 14.4 % 06/04/2025 12:10 AM [facility] Platelets 84(L) 140 - 375 K/CU MM 06/04/2025 12:10 AM [facility] MPV 11.4 9.4 - 12.3 fL 06/04/2025 12:10 AM [facility] % Neutros 65 34 - 71 % 06/04/2025 12:10 AM [facility] % Lymphs 16(L) 19 - 52 % 06/04/2025 12:10 AM [facility] % Monos 11 5 - 13 % 06/04/2025 12:10 AM EDT [facility] % Eos 2 1 - 6 % 06/04/2025 12:10 AM EDT [facility] % Baso 1 0 - 1 % 06/04/2025 12:10 AM EDT [facility] NRBC Absolute <0.01 0 - 0.012 K/ul 06/04/2025 12:10 AM [facility] # Neutros 3.55 1.56 - 6.13 K/ L 06/04/2025 12:10 AM [facility] # Lymphs 0.88(L) 1.18 - 3.74 K/ L 06/04/2025 12:10 AM EDT [facility] # Monos 0.59 0.24 - 0.86 K/ L 06/04/2025 12:10 AM EDT [facility] # Eos 0.13 0.04 - 0.36 K/ L 06/04/2025 12:10 AM EDT [facility] # Baso 0.03 0.01 - 0.08 K/ L 06/04/2025 12:10 AM EDT [facility] % Imm Grans 4.60(H) 0.01 - 0.43 % 06/04/2025 12:10 AM EDT [facility] # IG 0.25(H) 0.00 - 0.03 K/uL 06/04/2025 12:10 AM EDT [facility] Blood Venipuncture / Unknown 06/03/2025 11:42 PM EDT 06/03/2025 11:47 PM EDT Narrative [facility] - 06/04/2025 12:10 AM EDT When CBC w/ Auto Diff is ordered the lab will add a Manual Differential as a quality check at no additional charge if: Lymphocytes greater than seventy five percent with normal or increased WBC Monocytes greater than Fifteen percent Basophil greater than four percent Bands >10% or several immature myeloids are seen on scan Blast? Flag noted Atypical Lymph flag noted us Steffen Juan PA-C LAB BLOOD ORDERABLES Final Res ult [facility] [address] [place] [address] * EKG-SCANNED (06/03/2025) Narrative 06/03/2025 Ordered by an unspecified provider. us Default Scanning Provider SCAN ORDERS Final Result * EKG-SCANNED (06/03/2025) Narrative 06/03/2025 Ordered by an unspecified provider. us Default Scanning Provider SCAN ORDERS Final Result documented in this encounter Visit Diagnoses Diagnosis Acute renal failure (ARF) (HCC)- Primary Acute kidney failure, unspecified Acute renal failure, unspecified acute renal failure type (HCC) documented in this encounter Admitting Diagnoses Diagnosis Acute renal failure (ARF) (HCC) Acute kidney failure, unspecified documented in this encounter Administered Medications Inactive Administered Medications - up to 3 most recent administrations Medication Order MAR Action Action Date Dose Rate Site acetaminophen (TYLENOL) tablet 650 mg 650 mg Every 6 hours PRN, oral, mild pain (1-3), Starting on [place] 06/03/25 at 2312, Recommended maximum dose of acetaminophen is 4000 mg from all sources in 24 hours Given 06/09/2025 10:34 PM EDT 650 mg albuterol 2.5 mg/0.5 mL nebulizer solution 2.5 mg 2.5 mg Once, nebulization, On Sat06/04/25 at 0700, For 1 dose, * RESPIRATORY THERAPY TREATMENT *, What is the respiratory therapy Modality? Small volume Nebulization Given 06/04/2025 6:45 AM EDT 2.5 mg amLODIPine (NORVASC) tablet 5 mg 5 mg Daily, oral, First dose on Sat06/08/25 at 1100, Antihypertensive - Check BP - Check Pulse Given 06/10/2025 9:11 AM EDT 5 mg Given 06/09/2025 8:12 AM EDT 5 mg Given 06/08/2025 4:28 PM EDT 5 mg atorvastatin (LIPITOR) tablet 10 mg 10 mg Daily, oral, First dose on Sat06/09/25 at 1130, Therapeutic Interchange for Statins. Given 06/11/2025 9:3 7 AM EDT 10 mg Given 06/10/2025 9:11 AM EDT 10 mg Given 06/09/2025 11:39 AM EDT 10 mg aztreonam (AZACTAM) 1 g in sodium chloride 0.9 % (NS) MBP IVPB 1 g Every 8 hours scheduled, intravenous, First dose on Sat06/04/25 at 0500, Please choose an indication: Pneumonia IVPB Started 06/04/2025 5:10 AM EDT 1 g aztreonam (AZACTAM) 1 g in sodium chloride 0.9 % (NS) MBP IVPB 1 g Every 12 hours scheduled, intravenous, First dose (after last modification) on Sat06/08/25 at 1230, For 6 doses, Please choose an indication: Pneumonia IVPB Started 06/10/2025 9:37 PM EDT 1 g Restarted 06/10/2025 11:39 AM EDT IVPB Started 06/10/2025 9:10 AM EDT 1 g aztreonam (AZACTAM) 500 mg in sodium chloride 0.9 % (NS) 100 mL IVPB 500 mg Every 12 hours scheduled, intravenous, First dose (after last modification) on Sat06/04/25 at 2100, Please choose an indication: Pneumonia IVPB Started 06/07/2025 9:01 PM ED T 500 mg IVPB Started 06/07/2025 8:47 AM EDT 500 mg IVPB Started 06/06/2025 9:00 PM EDT 500 mg budesonide (PULMICORT) nebulizer suspension 0.5 mg 0.5 mg 2 times daily (RT), nebulization, First dose on Sat06/04/25 at 0800, *RESPIRATORY THERAPY TREATMENT*, What is the respiratory therapy Modality? Small volume Nebulization Given 06/10/2025 8:10 PM EDT 0.5 mg Given 06/10/2025 8:26 AM EDT 0.5 mg Given 06/09/2025 9:43 PM EDT 0.5 mg bumetanide (BUMEX) injection 0.5 mg 0.5 mg Once, intravenous, On Sat06/04/25 at 0830, For 1 dose Given 06/04/2025 8:57 AM EDT 0.5 mg calcium gluconate 2 g in sodium chloride 0.9 % (NS) 100 mL IVPB at 100 mL/hr, Administer over 60 Minutes, intravenous, Once, On Sat06/04/25 at 0700, For 1 dose IVPB Started 06/04/2025 6:43 AM EDT 2 g 100 mL/hr cefTRIAXone (ROCEPHIN) 1 g in sodium chloride 0.9 % (NS) 50 mL MADELEINE IVPB 1 g Every 24 hours, intravenous, at 100 mL/hr, First dose on [place] 06/03/25 at 2330, Please choose an indication: Pneumonia IVPB Started 06/03/2025 11:30 PM EDT 1 g 100 mL/hr cyanocobalamin tablet 1,000 mcg 1,000 mcg Daily, oral, First dose on Sat06/09/25 at 1130 Given 06/11/2025 9:36 AM EDT 1,000 mcg Given 06/10/2025 9:11 AM EDT 1,000 mcg Given 06/09/2025 11:39 AM EDT 1,000 mcg dextrose 5 % and sodium chloride 0.2 % infusion 60 mL/hr Continuous, intravenous, Starting on Sat06/08/25 at 1300, For 2 days New Bag 06/09/2025 12:29 PM EDT 60 mL/hr 60 mL/hr New Bag 06/08/2025 2:18 PM EDT 60 mL/hr 60 mL/hr dextrose 5 % infusion 100 mL/hr Continuous, intravenous, Starting on Sat06/08/25 at 0400, For 2 days 8 hours New Bag 06/10/2025 1:01 AM EDT 100 mL/hr 100 mL/hr New Bag 06/09/2025 2:41 PM EDT 100 mL/hr 100 mL/hr Rate/Dose Change 06/09/2025 1:13 PM EDT 100 mL/hr 100 mL/ hr dextrose 50% (D50W) injection 25 g 25 g Once (50 mL), intravenous, On Sat06/04/25 at 0100, For 1 dose Given 06/04/2025 12:25 AM EDT 25 g dextrose 50% (D50W) injection 25 g 25 g Once (50 mL), intravenous, On Sat06/04/25 at 0700, For 1 dose Given 06/04/2025 6:43 AM EDT 25 g dextrose 50% (D50W) injection 25 g 25 g Every 15 min PRN, intravenous, low blood glucose (specify value in prn comments), less than 41 mg/dL or 41-69 mg/dL and unable to take PO, Starting on Sat06/09/25 at 1954, Repeat blood glucose every 15 minutes until blood glucose greater than 70 mg/dL. Call Provider if not resolved after 2 treatments Repeat BS in 1 hour, retime for 1 hour after blood sugar greater than 70 mg/dL If less than 41: Repeat Finger stick within 5 minutes with same machine Send serum glucose level: Do not wait on lab to treat diphenhydrAMINE (BENADRYL) injection 25 mg 25 mg Once, intravenous, On Sat06/04/25 at 0030, For 1 dose Given 06/04/2025 12:11 AM EDT 25 mg doxycycline (VIBRAMYCIN) 100 mg in sodium chloride 0.9 % (NS) MADELEINE IVPB 100 mg Every 12 hours scheduled, intravenous, at 100 mL/hr, First dose on Sat06/04/25 at 1030, For 14 doses, Please choose an indication: Pneumonia IVPB Started 06/09/2025 8:12 AM EDT 100 mg 100 mL/hr IVPB Started 06/08/2025 9:03 PM EDT 100 mg 100 mL/hr IVPB Started 06/08/2025 8:10 AM EDT 100 mg 100 mL/hr doxycycline (VIBRAMYCIN) capsule 100 mg 100 mg Every 12 hours scheduled, oral, First dose on Sat06/04/25 at 0000, Please choose an indication: Pneumonia Given 06/03/2025 11:31 PM EDT 100 mg escitalopram (LEXAPRO) tablet 20 mg 20 mg Daily, oral, First dose on Sat06/09/25 at 1130 Given 06/11/2025 9:37 AM EDT 20 mg Given 06/10/2025 9:10 AM EDT 20 mg Given 06/09/2025 11:39 AM EDT 20 mg famotidine (PEPCID) tablet 20 mg 20 mg Daily, oral, First dose on Sat06/04/25 at 0900, Pharmacist to renally dose if CrCl is less than 50 mL/min or on CRRT. Given 06/11/2025 9:36 AM EDT 20 mg Given 06/10/2025 9:11 AM EDT 20 mg Given 06/09/2025 8:12 AM EDT 20 mg glucagon injection 1 mg 1 mg Every 15 min PRN, intraMUSCULAR, low blood glucose (specify value in prn comments), For Patients without IV access and blood glucose 41-69 mg/dL AND unable to take PO OR Less than 41 mg/dL, Starting on Sat06/09/25 at 1954, Caution: glucagon . Roll patient on their side when administering to prevent aspiration. Call Provider if not resolved after 2 treatments Repeat BS in 1 hour, retime for 1 hour after blood sugar greater than 70 mg/dL glucose chew tab 16 g 16 g Every 15 min PRN, oral, low blood glucose (specify value in prn comments), 41-69 mg/dL, Starting on Sat06/09/25 at 1954, For Patients who can take oral AND blood glucose 41-69 mg/dL Give 4 Tabs every 15 minutes. Recheck blood glucose every 15 minutes and repeat 15 grams of carbohydrates until blood glucose is above 70 mg/dL. Give Meal or Snack Call Provider if not resolved after 3 treatments Repeat BS in 1 hour, retime for 1 hour after blood sugar greater than 70 mg/dL guaiFENesin (mucINEX) 12 hr tablet 600 mg 600 mg 2 times daily, oral, First dose on Sat06/03/25 at 2330, * DO NOT CRUSH THIS DOSAGE FORM * Look-alike/Sound-alike medication Given 06/03/2025 11:31 PM EDT 600 mg heparin injection 5,000 Units 5,000 Units Every 8 hours scheduled, subcutaneous, First dose on Sat06/04/25 at 1300Indications:Acute renal failure, unspecified acute renal failure type (HCC) Given 06/11/2025 1:31 PM EDT 5,000 Units Abdominal Tissue Given 06/11/2025 5:19 AM EDT 5,000 Units A bdominal Tissue Given 06/10/2025 8:56 PM EDT 5,000 Units A bdominal Tissue hydrALAZINE (APRESOLINE) injection 10 mg 10 mg Every 6 hours PRN, intravenous, high blood pressure (specify), SBP >170 or DBP >100, Starting on Sat06/03/25 at 2323, Hold if SBP < 100 mmHg, DBP < 50 mmHg, or patient is on pressor. Look-alike/Sound-alike medication Given 06/07/2025 9:21 PM EDT 10 mg insulin lispro (HUMALOG, ADMELOG) injection 0-6 Units 0-6 Units 4 times daily (before meals and nightly), subcutaneous, First dose on Sat06/04/25 at 0730, If Blood Sugar is less than 180 between 2927-7926, DO NOT give corrective insulin unless otherwise ordered. Corrective Scale A 0 units for fingerstick blood glucose LESS than 140 mg/dL 1 unit subcutaneously once for fingerstick blood glucose [140] - [180] mg/dL 2 units subcutaneously once for fingerstick blood glucose [181] - [220] mg/dL 3 units subcutaneously once for fingerstick blood glucose [221] - [260] mg/dL 4 units subcutaneously once for fingerstick blood glucose [261] - [300] mg/dL 5 units subcutaneously once for fingerstick blood glucose [301] - [350] mg/dL 6 units subcutaneously once for fingerstick blood glucose [351] - [400] mg/dL Notify provider of glucose levels LESS than [70] and GREATER than [400] Given 06/04/2025 12:30 PM EDT 1 Units Abdominal Tissue insulin lispro (HUMALOG, ADMELOG) injection 0-6 Units 0-6 Units 4 times daily (before meals and nightly), subcutaneous, First dose on Sat06/09/25 at 2100, If Blood Sugar is less than 180 between 5242-9126, DO NOT give corrective insulin unless otherwise ordered. Corrective Scale A 0 units for fingerstick blood glucose LESS than 140 mg/dL 1 unit subcutaneously once for fingerstick blood glucose [140] - [180] mg/dL 2 units subcutaneously once for fingerstick blood glucose [181] - [220] mg/dL 3 units subcutaneously once for fingerstick blood glucose [221] - [260] mg/dL 4 units subcutaneously once for fingerstick blood glucose [261] - [300] mg/dL 5 units subcutaneously once for fingerstick blood glucose [301] - [350] mg/dL 6 units subcutaneously once for fingerstick blood glucose [351] - [400] mg/dL Notify provider of glucose levels LESS than [70] and GREATER than [400] insulin regular (HUMULIN R,NOVOLIN R) injection 10 Units Once, intravenous, On Sat06/04/25 at 0100, For 1 dose, If blood sugar is less than 180 between 1792-8122, DO NOT give corrective insulin unless otherwise ordered. Given 06/04/2025 12:26 AM EDT 10 Units Left Arm insulin regular (HUMULIN R,NOVOLIN R) injection 10 Units Once, subcutaneous, On Sat06/04/25 at 0700, For 1 dose, If blood sugar is less than 180 between 1679-5450, DO NOT give corrective insulin unless otherwise ordered. Given 06/04/2025 6:43 AM EDT 10 Units Right Arm insulin regular (HUMULIN R,NOVOLIN R) injection 0-6 Units Every 6 hours scheduled, subcutaneous, First dose on Sat06/06/25 at 2000, Corrective Scale A 0 units for fingerstick blood glucose LESS than 140 mg/dL 1 unit subcutaneously once for fingerstick blood glucose [140] - [180] mg/dL 2 units subcutaneously once for fingerstick blood glucose [181] - [220] mg/dL 3 units subcutaneously once for fingerstick blood glucose [221] - [260] mg/dL 4 units subcutaneously once for fingerstick blood glucose [261] - [300] mg/dL 5 units subcutaneously once for fingerstick blood glucose [301] - [350] mg/dL 6 units subcutaneously once for fingerstick blood glucose [351] - [400] mg/dL Notify provider of glucose levels LESS than [70] and GREATER than [400] Given 06/07/2025 12:25 AM EDT 2 Units Abdominal Tissue ipratropium-albuteroL (DUO-NEB) 0.5 mg-3 mg(2.5 mg base)/3 mL nebulizer solution 3 mL 3 mL 2 times daily (RT), nebulization, First dose on [place] 06/03/25 at 2330, RESPIRATORY THERAPY TREATMENT Protect from Light, What is the respiratory therapy Modality? Small volume Nebulization Given 06/10/2025 8:10 PM EDT 3 mLs Given 06/10/2025 8:26 AM EDT 3 mLs Given 06/09/2025 9:43 PM EDT 3 mLs magnesium sulfate IVPB 2 g in sterile water 50 mL (premix) at 25 mL/hr, Administer over 120 Minutes, intravenous, Once, On Sat06/04/25 at 0100, For 1 dose IVPB Started 06/04/2025 12:25 AM EDT 2 g 25 mL/hr magnesium sulfate IVPB 2 g in sterile water 50 mL (premix) at 25 mL/hr, Administer over 120 Minutes, intravenous, Once, On Sat06/04/25 at 0230, For 1 dose IVPB Started 06/04/2025 2:30 AM EDT 2 g 25 mL/hr magnesium sulfate IVPB 2 g in sterile water 50 mL (premix) at 25 mL/hr, Administer over 120 Minutes, intravenous, Once, On Sat06/07/25 at 1100, For 1 dose IVPB Started 06/07/2025 10:30 AM EDT 2 g 25 mL/hr magnesium sulfate IVPB 2 g in sterile water 50 mL (premix) at 25 mL/hr, Administer over 120 Minutes, intravenous, Once, On [place] 06/10/25 at 0900, For 1 dose IVPB Started 06/10/2025 3:22 PM EDT 2 g 25 mL/hr methylPREDNISolone sodium succinate (PF) (Solu-MEDROL) injection 60 mg 60 mg Once, intravenous, On Sat06/04/25 at 0030, For 1 dose Given 06/04/2025 12:11 AM EDT 60 mg metoprolol succinate (TOPROL-XL) 24 hr tablet 50 mg 50 mg Daily, oral, First dose on Sat06/09/25 at 1130, Hold for systolic BP < 90 mmHg or for HR < 50 BPM Do Not Crush or Chew (Tablet may be split) Given 06/10/2025 9:11 AM EDT 50 mg Given 06/09/2025 11:39 AM EDT 50 mg montelukast (SINGULAIR) tablet 10 mg 10 mg Every Night, oral, First dose on Sat06/09/25 at 2100 Given 06/10/2025 8:56 PM EDT 10 mg Given 06/09/2025 10:34 PM EDT 10 mg multivitamin (THERAGRAN) tablet 1 tablet 1 tablet Daily, oral, First dose on Sat06/09/25 at 1130, Therapeutic Interchange for Multivitamins. Given 06/11/2025 9:36 AM EDT 1 tablet Given 06/10/2025 9:12 AM EDT 1 tablet Given 06/09/2025 11:39 AM EDT 1 tablet ondansetron (ZOFRAN) injection 4 mg 4 mg Every 6 hours PRN, intravenous, nausea, Starting on [place] 06/03/25 at 2323, For IV push, give over 2 - 5 minutes. oxybutynin (DITROPAN) tablet 20 mg 20 mg Daily, oral, First dose on Sat06/09/25 at 1130 Given 06/11/2025 9:36 AM EDT 20 mg Given 06/10/2025 9:11 AM EDT 20 mg Given 06/09/2025 11:39 AM EDT 20 mg perflutren lipid microspheres (DEFINITY) injection 1.1 mg/mL IMG once as needed, Starting on Sat06/04/25 at 1254, Intra-op Given 06/04/2025 12:54 PM EDT 2 mLs piperacillin-tazobactam (ZOSYN) 4.5 g in sodium chloride 0.9 % (NS) MBP 100 mL IVPB 4.5 g Once, intravenous, Administer over 30 Minutes, On Sat06/04/25 at 0030, For 1 dose, Please choose an indication: Pneumonia IVPB Started 06/04/2025 12:26 AM EDT 4.5 g 200 mL/hr polyethylene glycol (GLYCOLAX) packet 17 g 17 g Daily as needed, oral, constipation, Starting on Sat06/03/25 at 2324, DISSOLVE IN 8 OUNCES OF WATER, JUICE, SODA, COFFEE OR TEA polyethylene glycol (GLYCOLAX) packet 17 g 17 g Daily, oral, First dose on Sat06/04/25 at 0900, DISSOLVE IN 8 OUNCES OF WATER, JUICE, SODA, COFFEE OR TEAIndications:Acute renal failure, unspecified acute renal failure type (HCC) Given 06/07/2025 8:42 AM EDT 17 g Given 06/06/2025 8:54 AM EDT 17 g potassium bicarbonate (EFFER-K) disintegrating tablet 40 mEq 40 mEq Once, oral, On Sat06/09/25 at 1030, For 1 dose, Do NOT crush or chew the effervescent tablet. Preparation: Dissolve 1 effervescent tablet in 3-4 ounces of cold water or juice and drink slowly. If giving through tube feeding, please flush feeding tube before and after this medication administration. Given 06/09/2025 10:33 AM EDT 40 mEq potassium chloride (KLOR-CON) ER tablet 40 mEq 40 mEq Once, oral, On Sat06/10/25 at 0900, For 1 dose Given 06/10/2025 9:11 AM EDT 40 mEq pregabalin (LYRICA) capsule 75 mg 75 mg 2 times daily, oral, First dose on Sat06/09/25 at 1130 Given 06/11/2025 9:37 AM EDT 75 mg Given 06/10/2025 8:56 PM EDT 75 mg Given 06/10/2025 9:11 AM EDT 75 mg Saccharomyces boulardii (FLORASTOR) capsule 250 mg 250 mg 2 times daily, oral, First dose on Sat06/04/25 at 0900, Do not crush or open capsule. Must be swallowed whole. Given 06/11/2025 9:36 AM EDT 250 mg Given 06/10/2025 8:56 PM EDT 250 mg Given 06/10/2025 9:11 AM EDT 250 mg sennosides-docusate sodium (SENOKOT S) 8.6-50 mg tablet 1 tablet 1 tablet 2 times daily PRN, oral, constipation, Starting on [place] 06/03/25 at 2323 sodium bicarbonate 150 mEq in sterile water 1,150 mL infusion at 125 mL/hr, intravenous, Continuous, Starting on Sat06/04/25 at 0100 IVPB Started 06/04/2025 1:47 AM EDT 150 mEq 125 mL/hr sodium bicarbonate 150 mEq in sterile water 1,150 mL infusion at 100 mL/hr, intravenous, Continuous, Starting on Sat06/04/25 at 0730 IVPB Started 06/05/2025 1:16 AM EDT 150 mEq 100 mL/hr IVPB Started 06/04/2025 1:00 PM EDT 150 mEq 100 mL/hr IVPB Started 06/04/2025 7:02 AM EDT 150 mEq 100 mL/hr sodium chloride 0.9 % infusion 125 mL/hr Continuous, intravenous, Starting on Sat06/03/25 at 2330 New Bag 06/03/2025 11:31 PM EDT 125 mL/hr 125 mL/hr sodium polystyrene sulf-sorbtL 15-20 gram/60 mL suspension 60 g 60 g Once, other - see admin instructions/comments, On Sat06/04/25 at 1130, For 1 dose, Rectally To reduce the likelihood of decreased absorption and effectiveness of orally administered medications, do not administer sodium polystyrene sulfonate within 3 hours of other oral medications. Given 06/04/2025 1:00 PM EDT 60 g sodium zirconium cyclosilicate (LOKELMA) packet 10 g 10 g Once, oral, On Sat06/04/25 at 0100, For 1 dose, Administer other oral meds 2 hrs before or 2 hrs after Lokelma. Empty entire contents of pkt(s) into a drinking glass containing about 3 tbsp of water or more, if desired. Stir well & drink immediately. If powder remains in drinking glass, add water, stir, & drink immediately. Repeat until no powder remains to ensure the entire dose is taken. Given 06/04/2025 1:51 AM EDT 10 g sodium zirconium cyclosilicate (LOKELMA) packet 10 g 10 g Once, oral, On Sat06/04/25 at 0730, For 1 dose, Administer other oral meds 2 hrs before or 2 hrs after Lokelma. Empty entire contents of pkt(s) into a drinking glass containing about 3 tbsp of water or more, if desired. Stir well & drink immediately. If powder remains in drinking glass, add water, stir, & drink immediately. Repeat until no powder remains to ensure the entire dose is taken. Given 06/04/2025 3:39 PM EDT 10 g documented in this encounter Active and Recently Administered Medications Times are shown in EDT. Scheduled Medication Order 06/09/2025 06/10/2025 06/11/2025 amLODIPine (NORVASC) tablet 5 mg 5 mg Daily, oral, First dose on Sat06/08/25 at 1100, Antihypertensive - Check BP - Check Pulse 0812 (Given - Provider: Lazara Camargo) 0911 (Given - Provider: Emi Salguero RN) 0936 (Not Given - Provider: Emi Salguero RN - Reason: Order parameters not met) atorvastatin (LIPITOR) tablet 10 mg 10 mg Daily, oral, First dose on Sat06/09/25 at 1130, Therapeutic Interchange for Statins. 1139 (Given - Provider: Lazara Camargo) 0911 (Given - Provider: Emi Salguero RN) 0937 (Given - Provider: Emi Salguero RN) aztreonam (AZACTAM) 1 g in sodium chloride 0.9 % (NS) MBP IVPB (COMPLETED) 1 g Every 12 hours scheduled, intravenous, First dose (after last modification) on Sat06/08/25 at 1230, For 6 doses, Please choose an indication: Pneumonia 0048 (IVPB Stopped - Provider: Melanie Copeland RN)1033 (IVPB Started - Provider: Mariluz Mera RN)1425 (IVPB Stopped - Provider: Bal Guallpa RN) 0100 (IVPB Started - Provider: Shaheed Chaudhary, NEO)0415 (IVPB Stopped - Provider: Shaheed Chaudhary RN)0910 (IVPB Started - Provider: Emi Salguero RN)1139 (Restarted - Provider: Emi Salguero RN)1439 (IVPB Stopped - Provider: Emi Salguero RN)2137 (IVPB Started - Provider: Rodri Hurt, NEO) 0258 (IVPB Stopped - Provider: Rodri Hurt, NEO) budesonide (PULMICORT) nebulizer suspension 0.5 mg 0.5 mg 2 times daily (RT), nebulization, First dose on Sat06/04/25 at 0800, *RESPIRATORY THERAPY TREATMENT*, What is the respiratory therapy Modality? Small volume Nebulization 08 (Given - Provider: Dwight Valero, INTEGRITY CONSULTANT)2142 (Given - Provider: Hadley Sky, INTEGRITY CONSULTANT) 825 (Given - Provider: Katie Moore, INTEGRITY CONSULTANT)2009 (Given - Provider: Lizabeth Loera, INTEGRITY CONSULTANT) 0839 (Not Given - Provider: Jennie Trejo, CUSTOMER SERVICE CONSULTANT - Reason: Patient/family refused - Comment: she said why no i dont want nothing with a breathing tx) cyanocobalamin tablet 1,000 mcg 1,000 mcg Daily, oral, First dose on Sat06/09/25 at 1130 1139 (Given - Provider: Lazara Camargo) 0911 (Given - Provider: Emi Salguero RN) 0936 (Given - Provider: Emi Salguero RN) doxycycline (VIBRAMYCIN) 100 mg in sodium chloride 0.9 % (NS) MADELEINE IVPB (CANCELED) 100 mg Every 12 hours scheduled, intravenous, at 100 mL/hr, First dose on Sat06/04/25 at 1030, For 14 doses, Please choose an indication: Pneumonia 0812 (IVPB Started - Provider: Lazara Camargo)0904 (IVPB Stopped - Provider: Mariluz Mera, NEO) escitalopram (LEXAPRO) tablet 20 mg 20 mg Daily, oral, First dose on Sat06/09/25 at 1130 1139 (Given - Provider: Lazara Camargo) 0910 (Given - Provider: Emi Salguero RN) 0937 (Given - Provider: Emi Salguero, NEO) famotidine (PEPCID) tablet 20 mg 20 mg Daily, oral, First dose on Sat06/04/25 at 0900, Pharmacist to renally dose if CrCl is less than 50 mL/min or on CRRT. 0812 (Given - Provider: Lazara Camargo) 0911 (Given - Provider: Emi Salguero RN) 0936 (Given - Provider: Emi Salguero RN) heparin injection 5,000 Units 5,000 Units Every 8 hours scheduled, subcutaneous, First dose on Sat06/04/25 at 1300 0559 (Given - Provider: Melanie Copeland RN)1222 (Given - Provider: Lazara Camargo)2235 (Given - Provider: Shaheed Chaudhary RN) 0647 (Given - Provider: Shaheed Chaudhary RN)1522 (Given - Provider: Emi Salguero, NEO)2056 (Given - Provider: Rodri Hurt, RN) 0519 (Given - Provider: Rodri Hurt, RN)1331 (Given - Provider: Emi Salguero RN) insulin lispro (HUMALOG, ADMELOG) injection 0-6 Units 0-6 Units 4 times daily (before meals and nightly), subcutaneous, First dose on Sat06/09/25 at 2100, If Blood Sugar is less than 180 between 6496-3409, DO NOT give corrective insulin unless otherwise ordered. Corrective Scale A 0 units for fingerstick blood glucose LESS than 140 mg/dL 1 unit subcutaneously once for fingerstick blood glucose [140] - [180] mg/dL 2 units subcutaneously once for fingerstick blood glucose [181] - [220] mg/dL 3 units subcutaneously once for fingerstick blood glucose [221] - [260] mg/dL 4 units subcutaneously once for fingerstick blood glucose [261] - [300] mg/dL 5 units subcutaneously once for fingerstick blood glucose [301] - [350] mg/dL 6 units subcutaneously once for fingerstick blood glucose [351] - [400] mg/dL Notify provider of glucose levels LESS than [70] and GREATER than [400] 2106 (Not Given - Provider: Shaheed Chaudhary RN - Reason: Order parameters not met) 0626 (Not Given - Provider: Shaheed Chaudhary RN - Reason: Order parameters not met)1116 (Not Given - Provider: Emi Salguero RN - Reason: Order parameters not met)1553 (Not Given - Provider: Emi Salguero RN - Reason: Order parameters not met)2149 (Not Given - Provider: Rodri Hurt RN - Reason: Order parameters not met) 1012 (Not Given - Provider: Emi Salguero RN - Reason: Order parameters not met)1145 (Not Given - Provider: Emi Salguero RN - Reason: Order parameters not met)1554 (Not Given - Provider: Emi Salguero RN - Reason: Order parameters not met - Comment: BS 84) ipratropium-albuteroL (DUO-NEB) 0.5 mg-3 mg(2.5 mg base)/3 mL nebulizer solution 3 mL 3 mL 2 times daily (RT), nebulization, First dose on Sat06/03/25 at 2330, RESPIRATORY THERAPY TREATMENT Protect from Light, What is the respiratory therapy Modality? Small volume Nebulization 08 (Given - Provider: Dwight Valero, INTEGRITY CONSULTANT)2142 (Given - Provider: Hadley Sky, INTEGRITY CONSULTANT) 08 (Given - Provider: Katie Moore, INTEGRITY CONSULTANT)2009 (Given - Provider: Lizabeth Loera, INTEGRITY CONSULTANT) 0839 (Not Given - Provider: Jennie Trejo, CUSTOMER SERVICE CONSULTANT - Reason: Patient/family refused - Comment: she said why no i dont want nothing with a breathing tx) magnesium sulfate IVPB 2 g in sterile water 50 mL (premix) (COMPLETED) at 25 mL/hr, Administer over 120 Minutes, intravenous, Once, On [place] 06/10/25 at 0900, For 1 dose 1522 (IVPB Started - Provider: Emi Salguero RN)1734 (IVPB Stopped - Provider: Emi Salguero RN) metoprolol succinate (TOPROL-XL) 24 hr tablet 50 mg (CANCELED) 50 mg Daily, oral, First dose on Sat06/09/25 at 1130, Hold for systolic BP < 90 mmHg or for HR < 50 BPM Do Not Crush or Chew (Tablet may be split) 1139 (Given - Provider: Lazara Camargo) 0911 (Given - Provider: Emi Salguero RN) montelukast (SINGULAIR) tablet 10 mg 10 mg Every Night, oral, First dose on Sat06/09/25 at 2100 2234 (Given - Provider: Shaheed Chaudhary RN) 2056 (Given - Provider: Rodri Hurt RN) multivitamin (THERAGRAN) tablet 1 tablet 1 tablet Daily, oral, First dose on Sat06/09/25 at 1130, Therapeutic Interchange for Multivitamins. 1139 (Given - Provider: Lazara Camargo) 0912 (Given - Provider: Emi Salguero RN) 0936 (Given - Provider: Emi Salguero RN) oxybutynin (DITROPAN) tablet 20 mg 20 mg Daily, oral, First dose on Sat06/09/25 at 1130 1139 (Given - Provider: Lazara Camargo) 0911 (Given - Provider: Emi Salguero RN) 09 (Given - Provider: Emi Salguero RN) polyethylene glycol (GLYCOLAX) packet 17 g 17 g Daily, oral, First dose on Sat06/04/25 at 0900, DISSOLVE IN 8 OUNCES OF WATER, JUICE, SODA, COFFEE OR TEA 0824 (Not Given - Provider: Mariluz Mera RN - Reason: Order parameters not met) 0928 (Not Given - Provider: Emi Salguero RN - Reason: Other (with Comment)) 0941 (Not Given - Provider: Emi Salguero RN - Reason: Other (with Comment)) potassium bicarbonate (EFFER-K) disintegrating tablet 40 mEq (COMPLETED) 40 mEq Once, oral, On Sat06/09/25 at 1030, For 1 dose, Do NOT crush or chew the effervescent tablet. Preparation: Dissolve 1 effervescent tablet in 3-4 ounces of cold water or juice and drink slowly. If giving through tube feeding, please flush feeding tube before and after this medication administration. 1033 (Given - Provider: Mariluz Mera RN) potassium chloride (KLOR-CON) ER tablet 40 mEq (COMPLETED) 40 mEq Once, oral, On Sat06/10/25 at 0900, For 1 dose 09 (Given - Provider: Emi Salguero RN) pregabalin (LYRICA) capsule 75 mg 75 mg 2 times daily, oral, First dose on Sat06/09/25 at 1130 1139 (Given - Provider: Lazara Camargo)2234 (Given - Provider: Shaheed Chaudhary RN) 910 (Given - Provider: Emi Salguero RN)2055 (Given - Provider: Rodri Hurt, NEO) 09 (Given - Provider: Emi Salguero, NEO) Saccharomyces boulardii (FLORASTOR) capsule 250 mg 250 mg 2 times daily, oral, First dose on Sat06/04/25 at 0900, Do not crush or open capsule. Must be swallowed whole. 0812 (Given - Provider: Lazara Camargo)2232 (Given - Provider: Shaheed Chaudhary RN) 910 (Given - Provider: Emi Salguero RN)2055 (Given - Provider: Rodri Hurt, NEO) 0936 (Given - Provider: Emi Salguero RN) sodium polystyrene sulf-sorbtL 15-20 gram/60 mL suspension 60 g 60 g Once, oral, On Sat06/04/25 at 0730, For 1 dose, To reduce the likelihood of decreased absorption and effectiveness of orally administered medications, do not administer sodium polystyrene sulfonate within 3 hours of other oral medications. Continuous Medication Order 06/09/2025 06/10/2025 06/11/2025 dextrose 5 % and sodium chloride 0.2 % infusion (CANCELED) 60 mL/hr Continuous, intravenous, Starting on Sat06/08/25 at 1300, For 2 days 1229 (New Bag - Provider: Lazara Camargo)1305 (Stopped - Provider: Mariluz Mera RN) dextrose 5 % infusion (CANCELED) 100 mL/hr Continuous, intravenous, Starting on Sat06/08/25 at 0400, For 2 days 8 hours 1313 (Rate/Dose Change - Provider: Mariluz Mera RN)1441 (New Bag - Provider: Bal Guallpa RN) 0101 (New Bag - Provider: Shaheed Chaudhary RN) PRN Medication Order 06/09/2025 06/10/2025 06/11/2025 acetaminophen (TYLENOL) tablet 650 mg 650 mg Every 6 hours PRN, oral, mild pain (1-3), Starting on Sat06/03/25 at 2312, Recommended maximum dose of acetaminophen is 4000 mg from all sources in 24 hours 2234 (Given - Provider: Shaheed Chaudhary, RN) dextrose 50% (D50W) injection 25 g 25 g Every 15 min PRN, intravenous, low blood glucose (specify value in prn comments), less than 41 mg/dL or 41-69 mg/dL and unable to take PO, Starting on Sat06/09/25 at 1953, Repeat blood glucose every 15 minutes until blood glucose greater than 70 mg/dL. Call Provider if not resolved after 2 treatments Repeat BS in 1 hour, retime for 1 hour after blood sugar greater than 70 mg/dL If less than 41: Repeat Finger stick within 5 minutes with same machine Send serum glucose level: Do not wait on lab to treat glucagon injection 1 mg 1 mg Every 15 min PRN, intraMUSCULAR, low blood glucose (specify value in prn comments), For Patients without IV access and blood glucose 41-69 mg/dL AND unable to take PO OR Less than 41 mg/dL, Starting on Sat06/09/25 at 1953, Caution: glucagon . Roll patient on their side when administering to prevent aspiration. Call Provider if not resolved after 2 treatments Repeat BS in 1 hour, retime for 1 hour after blood sugar greater than 70 mg/dL glucose chew tab 16 g 16 g Every 15 min PRN, oral, low blood glucose (specify value in prn comments), 41-69 mg/dL, Starting on Sat06/09/25 at 1953, For Patients who can take oral AND blood glucose 41-69 mg/dL Give 4 Tabs every 15 minutes. Recheck blood glucose every 15 minutes and repeat 15 grams of carbohydrates until blood glucose is above 70 mg/dL. Give Meal or Snack Call Provider if not resolved after 3 treatments Repeat BS in 1 hour, retime for 1 hour after blood sugar greater than 70 mg/dL hydrALAZINE (APRESOLINE) injection 10 mg 10 mg Every 6 hours PRN, intravenous, high blood pressure (specify), SBP >170 or DBP >100, Starting on Sat06/03/25 at 2323, Hold if SBP < 100 mmHg, DBP < 50 mmHg, or patient is on pressor. Look-alike/Sound-alike medication ondansetron (ZOFRAN) injection 4 mg 4 mg Every 6 hours PRN, intravenous, nausea, Starting on Sat06/03/25 at 2323, For IV push, give over 2 - 5 minutes. polyethylene glycol (GLYCOLAX) packet 17 g 17 g Daily as needed, oral, constipation, Starting on Sat06/03/25 at 2324, DISSOLVE IN 8 OUNCES OF WATER, JUICE, SODA, COFFEE OR TEA sennosides-docusate sodium (SENOKOT S) 8.6-50 mg tablet 1 tablet 1 tablet 2 times daily PRN, oral, constipation, Starting on Dixie 06/03/25 at 2323 documented in this encounter Care Teams Silk Screen Cutter Relationship Specialty Start Date End Date [facility] Mikal, [facility] [place] [address] PCP - General 06/03/25 06/10/25 Allan Adamson MD [address] [facility] [address] [place] [address] PCP - General Family Medicine 06/11/25 documented as of this encounter
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
--- OUTSIDE RECORDS SUMMARY | 2025-06-29 12:15 | XMS_ITS ---
Author Organization [facility] Address [address] [facility] [address] [place] [id number] Care Team Providers Care Soap Boiler Name Role Phone Rolando Adamsonian Primary Care Provider [phone] Yvette Harris Unavailable [phone] Allergies No Known Allergies REASON FOR VISIT [facility] VISIT Medications Medication SIG (Take, Route, Frequency, Duration) Notes Start Date End Date Status Bumetanide 1 MG 1 tablet Orally Once a day; Duration: 30 day(s) 07/04/2025 Active Eye Vitamins - as directed Orally Not-Taking Caltrate 600+D3 600-800 MG-UNIT 1 tablet with a meal Orally Once a day Active Hospital Bed - as directed 12/28/2024 Ac tive Regular Diet - as directed RICARDO; CCHO; mechanical soft Active Ipratropium-Albutero l 0.5-2.5 (3) MG/3ML 3 mL as needed Inhalation every 6 hrs Active amLODIPine Besylate 5 MG 1 tablet Orally Once a day; Duration: 30 day(s) Active Famotidine 20 MG 1 tablet Orally Once a day Active Ipratropium-Albutero l 0.5-2.5 (3) MG/3ML 3 mL as needed Inhalation every 6 hours As needed Active Simvastatin 20 MG TAKE 1 TABLET BY MOUTH ONCE DAILY AT BEDTIME FOR 90 DAYS Active CeraVe Daily Moisturizing - as directed Externally daily Active oxyBUTYnin Chloride ER 10 MG 2 tab(s) Orally Once a day Active Lidocaine 4 % 1 patch as needed Externally daily As needed Active Loperamide HCl 2 MG 1 capsule as needed Orally 4 times a day As needed Active Nebulizer Air Tube/Plugs - as directed 12/03/2024 Active Nebulizer - as directed 12/03/2024 Activ e Oxygen - per nasal cannula as directed 3 LPM Active Metoprolol Succinate 50 MG 1/2 tab Orally Once a day Active Esomeprazole Magnesium 40 MG 1 cap(s) orally once a day Active Vitamin B12 1000 MCG 1 tablet Orally Once a day Active Fluticasone-Salmeter ol 250-50 MCG/ACT 1 puff Inhalation Twice a day Active amLODIPine Besylate 5 MG 1 tablet Orally Once a day Active Nystatin 001080 UNIT/GM 1 application beneath b breasts Externally Twice a day Active Acetaminophen 500 MG 1 tablet as needed Orally every 6h prn Active Glucosamine Sulfate 1000 MG as directed Orally qd Active CPAP machine and supplies - as directed as directed at night and whenever sleepng Active Multivitamin Adults - as directed Orally [...] device 1 use as directed Activ e Biofreeze 10 % to hands Externally 4 times a day As needed Active Paste Base - as directed Kate's magic butt paste daily to gluteal folds Active Zocor 20 MG 1 tab(s) orally once a day at bedtime Active Pregabalin 75 MG 1 cap(s) orally 2 times a day Active Problems Problem Type SNOMED Code ICD Code Onset Dates Problem Status W/U Status Risk Notes Problem Diabetes mellitus without complication (258641709) 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, 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) Active confirmed Problem Diabetes mellitus type 2 (disorder) (90308633) DM2 (diabetes mellitus, type 2) (E11.9) Active confirmed Vital Signs Weight 182 lbs 06/29/2025 Blood pressure systolic 146 mm Hg 06/29/20 25 Blood pressure diastolic 82 mm Hg 025 Heart Rate 75 /min 06/29/2025 Respiratory Rate 18 /min 06/29/2025 Encounters Encounter Location Date Provider Diagnosis [address] [place] [id number] 06/29/2025 Yvette Harris Chronic pulmonary ed [place] J81.1 [...] Peripheral edema R60.9 ; Dry skin L85.3 ; Hyperlipidemia 272.4 ; Hyperkalemia E87.5 ; 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 dAamson 06/29/2025 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) 06/29/2025 Chronic respiratory failure, unspecified whether with hypoxia or hypercapnia (ICD-10 - J96.10) 06/29/2025 Chronic obstructive pulmonary disease, unspecified COPD type (ICD-10 - J44.9) 06/29/2025 Hyperlipidemia, unspecified hyperlipidemia type (ICD-10 - E78.5) 06/29/2025 Essential hypertension (ICD-10 - I10) 06/29/2025 Depression with anxiety (ICD-10 - F41.8) 06/29/2025 Gastroesophageal reflux disease, esophagitis presence not specified (ICD-10 - K21.9) 06/29/2025 Primary osteoarthritis involving multiple joints (ICD-10 - M15.0) 06/29/2025 Obstructive sleep apnea (ICD-10 - G47.33) 06/29/2025 Allergic rhinitis (ICD-10 - J30.9) 06/29/2025 Debility (ICD-10 - R53.81) Encouraged out of the room activities; also to continue with PT with focus on transfers 06/29/2025 Anemia, unspecified type (ICD-10 - D64.9) 06/29/2025 Peripheral edema (ICD-10 - R60.9) recheck in 1 week; will try Bume 06/29/2025 Dry skin (ICD-10 - L85.3) 06/29/2025 Hyperlipidemia (ICD9-CM - 272.4) 06/29/2025 Hyperkalemia (ICD-10 - E87.5) 06/29/2025 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, 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) 06/29/2025 Controlled type 2 diabetes mellitus without complication, without long-term current use of insulin (ICD-10 - E11.9) 06/29/2025 DM2 (diabetes mellitus, type 2) (ICD-10 - E11.9) low BS with A1c 5; Lantus discontinued and placed on low intensity sliding scale insulin AM and 4PM Plan Of Treatment Medication Medication Name Sig Start Date Stop Date Notes Bumetanide 1 MG 1 tablet Orally Once a day; Duration: 30 day(s) 07/04/2025 Ipratropium-Albuterol 0.5-2.5 (3) MG/3ML 3 mL as needed Inhalation every 6 hrs amLODIPine Besylate 5 MG 1 tablet Orally Once a day; Duration: 30 day(s) Famotidine 20 MG 1 tablet Orally Once a day CeraVe Daily Moisturizing - as directed Externally daily oxyBUTYnin Chloride ER 10 MG 2 tab(s) Orally Once a day Metoprolol Succinate 50 MG 1/2 tab Orally Once a day Esomeprazole Magnesium 40 MG 1 cap(s) orally once a day Vitamin B12 1000 MCG 1 tablet Orally Onc e a day Fluticasone-Salmeterol 250-50 MCG/ACT 1 puff Inhalation Twice a day Acetaminophen 500 MG 1 tablet as needed Orally every 6h prn Glucosamine Sulfate 1000 MG as directed Orally qd CPAP machine and supplies - as directed as directed at night and whenever sleepng Multivitamin Adults - as directed Orally qd [...] a day Paste Base - as directed Yudy patrick butt paste daily to gluteal folds Zocor 20 MG 1 tab(s) orally once a day at bedtime Pregabalin 75 MG 1 cap(s) orally 2 times a day Treatment Notes Assessment Notes Stage 3b chronic kidney disease (CKD) re nal function has not as yet improved; discussed with Dr. Adamson Debility Encouraged out of e room activities; also to continue with PT with focus on transfers Peripheral edema recheck in 1 week; w ill try Bume DM2 (diabetes mellitus, type 2) low BS w ith A1c 5; Lantus discontinued and placed on low intensity sliding scale insulin AM and 4PM Next Appt Details Follow Up: 2 Weeks, Reason: Progress Notes * CAMPOS MONTGOMERYDOB:1940 ( 84 yo F)Acc No.[id number]:06/29/2025 Progress Notes Patient: CAMPOS PHAM Provider: NICHOLAS Gonzalez :1940 A ge:84 Y S ex:Female Date:06/29/2025 Address:[address] [place] [address] [id number] Pcp:Allan Adamson Subjective: * Chief Complaints: * 1 . [facility] VISIT. * HPI: H PI: For routine Care Home visit; chart reviewed and patient examined; see ROS . * ROS: R ESPIRATORY: Shortness of breath d oes not admit being SOB; wears nasal O2 continuously. C ARDIOLOGY: no C hest pain. L eg edema y es, n urses report leg edema is worse. G ASTROENTEROLOGY: no V omiting. n o D iarrhea. M USCULOSKELETAL: no J oint pain. * Medical History: H yperlipidemia, Osteoarthritis , [...] [facility] 12/30/2009-01/03/2010, RT Under Arm Cellulitis- [facility] 09/08/2009, LT Ankle Swollen- [facility] ER 02/14/2012, Radiation for Melanoma on Left Eye- [facility] 03/30-04/2016, Gastritis- [facility] 09/12-, Hip Replacement Surgery- [facility] 05/17-, Rehab- [place] May 2020, [facility] : CAP, Acute renal [...] smoking 2007. * Medications: T aking Nystatin 670354 UNIT/GM Powder 1 application beneath b breasts [...] Bed - - as directed , Taking Caltrate 600+D3 600-800 MG-UNIT Tablet 1 tablet with a meal Orally Once a day , Taking Zocor 20 MG [...] Tablet as directed Orally qd , Taking CPAP machine and supplies - [...] tablet Orally Once a day , Taking amLODIPine Besylate 5 MG Tablet 1 tablet Orally Once a day , Taking Ipratropium-Albuterol 0.5-2.5 (3) MG/3ML Solution 3 mL as needed Inhalation every 6 hrs , Taking Pregabalin 75 MG Capsule 1 cap(s) orally 2 times a day , Not-Taking Eye Vitamins - Capsule as directed Orally , Discontinued Lantus 100 UNIT/ML Solution 5 units Subcutaneous daily * Allergies: N .K.D.A. Objective: * Vitals: W t: 182, Temp: 98.1, BP: 146/82, HR: 75, O2 Sat: 91%, Nurse: reviewed/recorded by [facility], RR: 18. * Examination: G eneral Examination: General Appearance: N AD, alert; in bathroom with nurse getting ready for dinner; she is excited about some new clothes she bought today. H eart:?RRR. L ungs: d ecreased BS posteriorly. A bdomen: b owel sounds present, soft and nontender. N eurologic Exam: a lert and oriented; conversant. E xtremities: b ilateral leg edema. L ABS: date of labs 08/28/2024. C reatinine 3 .5. B UN?39. S odium 1 42. P otassium 4 .7. c hloride 1 01. C O2 2 6.?glucose 1 38. c alcium 9 . C BC-hgb/hct/wbc 9 .6/29.7/6.[address] [id number].?HbA1C 5 .0. S GOT/SGPT 2 9/18. a lk phos 1 11. t otal bilirubin 0 .33. a lbumin 3 .5. G FR 12. Assessment: * Assessment: 1. S tage 3b [...] 1 6. D ry skin - L85.3 1 7. H yperlipidemia - 272.4 1 8. H yperkalemia - E87.5 1 9. C ontrolled slow onset type 1 diabetes mellitus, managed as type 2 - E13.9 2 0. C ontrolled type 2 diabetes mellitus without complication, without long-term current use of insulin - E11.9 2 1. D M2 (diabetes mellitus, type 2) - E11.9 Plan: * Treatment: 2. D iabetic polyneuropathy [...] to Pharmacist: at night and whenever sleepng; C ontinue Ipratropium-Albuterol Solution, 0.5-2.5 (3) MG/3ML, 3 mL as needed, Inhalation, every 6 hrs.? 4. C hronic obstructive pulmonary disease, unspecified [...] Once a day. 13. P eripheral edema Stop Furosemide Tablet, 40 MG, 1 tablet, Orally, every other day; S tart Bumetanide Tablet, 1 MG, 1 tablet, Orally, Once a day, 30 day(s), 30. Notes: recheck in 1 week; will try Bume 14. D ry skin Start CeraVe Daily Moisturizing Lotion, -, as directed, Externally, daily. 15. D M2 (diabetes mellitus, type 2) Notes: low BS with A1c 5; Lantus discontinued and placed on low intensity sliding scale insulin AM and 4PM * Follow Up: 2 Weeks * Images: Billing Information: * Visit Code: 99456 subs. level 4. * Procedure Codes: * Electronic signature of Tatiana Harris APRN on 07/19/2025 at 07:23 AM EST Sign off status: Pending * Provider: NICHOLAS Gonzalez Date: 08/29/2024 Generated for Chucho forrester/Rubia/Cammieitting on: 09/18/2024 07:23 AM EST History and Physical Notes * Examination Category Sub-Category Detail Notes Category Not es General Examination Heart: RRR Lungs: decreased BS posteri edison Abdomen: bowel sounds present , soft and nontender Extremities: bilateral leg edema General Appearance: NAD, alert; in bathr oom with nurse getting ready for dinner; she is excited about some new clothes she bought today Neurologic Exam: alert and oriented; conversant LABS CBC-hgb/hct/wbc 9.6/29.7/6.[address] 1430 00 GFR 12 Creatinine 3.5 SGOT/SGPT 29/18 glucose 138 HbA1C 5.0 Potassium 4.7 Sodium 142 BUN 39 calcium 9 chloride 101 CO2 26 alk phos 111 total bilirubin 0.33 albumin 3.5 date of labs 06/28/2025
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
--- NOTE | 2025-07-19 | CA_ITS ---
APPROVED REPORT Exam: Pharmacologic Technologist: Coni Whiteside Ht: 5 ft 6 in Wt: 184 lbs BSA: 1.93 m2 HR: 59 bpm BP: 121/73 mmHg Medical History Medical History: HTN, Hyperlipidemia, Diabetes, Smoking Medications: Tylenol, Calcium, Famotidine, Wixela, Duoneb, Metoprolol, Montelukast, Oxybutyni Chloride, Prehabalin, Simvastatin Allergies: Azithryomycin, Ceftriaxone Cardiac Risk Factors: HTN, Hyperlipidemia, Diabetes, FHX of CAD, Smoking Stress Test Details Test: Lexiscan HR Resting HR: 59 bpm Max Heart Rate (APMHR): 134.308853 bpm Target HR (85% APMHR): 113.229884 bpm Recovery HR: 67 bpm BP Resting BP: 121.0/73.0 mmHg Recovery BP: 156.0/64.0 mmHg ECG Stress ECG Conclusion Pt had no symptoms Lexiscan Electronically signed by : Erica Romero MD 07/25/2025 22:25:18
--- NOTE | 2025-07-19 07:00 | NM_ITS ---
APPROVED REPORT Exam: Nuclear Stress Test Indication: Abnormal EKG, HTN, DM, High cholesterol, Former tobacco use, Family history Patient Location: Outpatient Stress Tech: Coni Whiteside [place] Tech:Ally Solomon, ARRT, RT (R)(N) Ht: 5 ft 6 in Wt: 181 lbs Bra Size: B HR: 55 bpm BP: 121/73 mmHg BSA: 1.92 m2 TID: 1.26 BMI: 29.2 History: Abnormal EKG, HTN, DM, High cholesterol, Former tobacco use, Family history Procedure: Patient received 0.4 mg of intravenous Lexiscan, resting heart rate 55 bpm, resting blood pressure 121/73 mmHg, with Lexiscan maximum heart rate achieved was 74 bpm which is % of the maximum predicted heart rate and blood pressure was 156/64 mmHg. With Lexiscan, patient denied any complaint of chest pain. The pt was not able to lay on her abdomen for prone images. Cardiac Stress and Resting SPECT Images: Cardiac Stress and Resting SPECT images were obtained using technetium 99m Myoview 29.1 mCi stress and 9.88 mCi at rest. The patient could not lie on her abdomen. Therefore, prone stress imaging could not be performed. This may affect the diagnostic interpretation of the study findings. Resting and stress imaging spine positions demonstrate no evidence of fixed or reversible perfusion defects. There is increased transient ischemic dilatation ratio (TID 1.26), which may be suggestive of possible multivessel disease or balanced ischemia. Gated imaging demonstrates normal global LV systolic function. LVEF is calculated at 71%. Conclusion: No evidence of fixed or reversible perfusion defects. There is increased transient ischemic dilatation ratio (TID 1.26), which may be suggestive of possible multivessel disease or balanced ischemia. Gated imaging demonstrates normal global LV systolic function. LVEF is calculated at 71%. Electronically signed by : Erica Romero MD 07/25/2025 22:04:07
--- OUTSIDE RECORDS SUMMARY | 2025-07-19 07:21 | XMS_ITS ---
Author Organization Unknown ENCOUNTERS Encounter Performer Location Date Diagnosis Diagnosis Status Emergency [facility] [address] [place] [address] [id number] XOTH Pre Admit [facility] [address] [place] [address] [id number] Inpatient [facility] [address] [place] [address] [id number] XSNF Outpatient [facility] [address] [place] [address] [id number] Emergency [facility] [address] [place] [address] [id number] Pre Admit [facility] [address] [place] [address] [id number] Inpatient [facility] [address] [place] [address] [id number] XSNF Emergency [facility] [address] [place] [address] [id number] A Pre Admit [facility] [address] [place] [address] [id number] Emergency [facility] [address] [place] [address] [id number] PEREZ Pre Admit [facility] [address] [place] [address] [id number] Inpatient [facility] [address] [place] [address] [id number] XSNF Outpatient [facility] [address] [place] [address] [id number] Emergency Claudia Henderson [facility] [address] [place] [address] [id number] Pre Admit Claudia [facility] [address] [place] [address] [id number] Inpatient Allan [facility] [address] [place] [address] [id number] XSNF Pre Admit Ken Alston [facility] [address] [place] [address] [id number] Emergency Ken [facility] [address] [place] [address] [id number] Outpatient [facility] [address] [place] [address] [id number] PEREZ [facility] [address] [place] [address] [id number] A Pre Admit [facility] [address] [place] [address] [id number] Outpatient [facility] [address] [place] [address] [id number] PEREZ Emergency J [facility] [address] [place] [address] [id number] A Pre Admit J [facility] [address] [place] [address] [id number] Inpatient [facility] [address] [place] [address] [id number] XSNF Emergency [facility] [address] [place] [address] [id number] A Pre Admit [facility] [address] [place] [address] [id number] PAT Inpatient Allan [facility] [address] [place] [address] [id number] HHS Outpatient [facility] [address] [place] [address] [id number] Pre Admit [facility] [address] [place] [address] [id number] Emergency [facility] [address] [place] [address] [id number] A *Note: Encounters from your own facility or health system may be excluded. Allergies, Adverse Reactions, Alerts Allergen Type Severity Identification Date azithromycin drug allergy 1 [id number] pollen extracts drug allergy 3 [id number] ceftriaxone drug allergy 1 20250401 Medications Name Date Quantity Days Supplied GPI Number
--- OUTSIDE RECORDS SUMMARY | 2025-07-19 07:22 | XMS_ITS | Clinical Summary ---
Author Organization [facility] Address [address] [place] [address] Care Team Providers Care Grades 7 8 Tutor Name Role Phone Allan Adamson MD Primary Care Provider [phone] Allergies No known active allergies Medications lisinopril [...] (two) times a day. Active HYDROcodone-rikki taminophen ([place]) 5-325 MG tablet Active oxybutynin XL (Ditropan-XL) [...] file Insurance MEDICARE [facility] Care Teams Grades 7 8 Tutor Relationship Specialty Start Date End Date Allan Adamson MD [facility] [place] [address] PCP - General 01/06/21
--- OUTSIDE RECORDS SUMMARY | 2025-07-19 07:24 | XMS_ITS | Patient Health Record ---
[facility] Address [address] [facility] [address] [place] [id number] Care Team Providers Care Renewable Energy Project Manager Name Role Phone Allan Adamson Primary Care Provider [phone] Ata Vences Unavailable [phone] Yvette Harris Unavailable [phone] Allergies No Known Allergies Results Component Value [...] - 38 platlet 134 100 - 400 H-UA Reviewed date:02/24/2025 04:52:18 PM Interpretation: Performing [...] 3-5 0-5 #/hpf UBACT Trace NONE /lpf H-CBC Reviewed date:08/11/2024 10:07:56 AM Interpretation: Performing [...] Performing Lab: Notes/Report: VANCT 14.2 5.0-10.0 ug/mL P-Basic Metabolic Panel (BMP ) Reviewed date:12/22/2024 09:28:32 AM Interpretation:co2-34, gluc 61, bun 51, Cr 1.87, gfr 26 Performing Lab: Notes/Report: Test performed by [facility] [address] [place] [address] , [address], [place] [address] Tristian Amado MD, French Professor CLIA: [id number] Sodium 142 135-145 mmol/L Potassium 5.0 3.5-5.3 mmol/L Chloride 99 97-108 mmol/L CO2 34 22-32 mmol/L Glucose 61 65-99 mg/dL BUN 51 8-23 mg/dL Creatinine 1.87 0.50-1.00 mg/dL Calcium 9.3 8.6-10.4 mg/dL eGFR by Creatinine 26 >59 mL/min/1.73m2 P-Hemoglobin A1C Reviewed date:12/22/2024 09:28:32 AM Interpretation:6.1 Performing Lab: Notes/Report: Test performed by [facility] [address] [place] [address] , [address], [place] [id number] Tristian Amado MD, French Professor CLIA: [id number] Hemoglobin A1C 6.1 <5.7 % The following HbA1c ranges recommended by the [place] [employer] (ADA) may be used as an aid in the diagnosis of diabetes mellitus. HbA1c Suggested Diagnosis >=6.5% Diabetic 5.7% - 6.4% Pre-Diabetic <5.7% Non-Diabetic P-Magnesium Reviewed date:12/22/2024 09:28:32 AM Interpretation: Normal Performing Lab: Notes/Report: Test performed by [facility] [address] [place] [address] , [address], [place] [address] Tristian Amado MD, French Professor CLIA: [id number] Magnesium 1.9 1.6-2.4 mg/dL H-Vancomycin, Peak Reviewed date:08/12/2024 02:40:36 PM Interpretation: Performing Lab: Notes/Report: VANCP 29.6 11-39 ug/ml H-BMP Reviewed date:08/13/2024 09:36:50 AM Interpretation: Performing [...] 0.1 0.0-0.4 K/mm3 BA# 0.1 0-0.2 K/mm3 CMP Reviewed date:06/29/2025 01:17:30 PM Interpretation: Performing Lab: Notes/Report: Estimated Average Glucose Reviewed date:12/22/2024 09:28:32 AM Interpretation:128 Performing Lab: Notes/Report: Test performed by [facility] [address] [place] [address] , [address] , [place] [address] Tristian Amado MD, French Professor CLIA: [id number] Estimated Average Glucose (eAG) 128 Estimated Average Glucose (eAG) is calculated using the equation eAG = (28.7 x HbA1c) - 46.7 based on the guidelines established by the ADA. If the patient has certain diseases including kidney disease, sickle cell anemia, thalassemia, or is taking medications such as dapsone, erythropoietin, or iron, eAG should not be evaluated. H-CBC Reviewed date:08/10/2024 03:13:24 PM Interpretation: Performing [...] 2.0 1.6-2.3 mg/dl Delta: 0.8 on 08/08/24-07 CXR Reviewed date:12/24/2024 08:24:52 AM Interpretation: Performing Lab: Notes/Report: H-Urine Culture and Sensitiv ity Reviewed date:02/24/2025 02:29:45 PM Interpretation:suggests contamination Performing Lab: Notes/Report: suggests contamination H-CBC Reviewed date:05/10/2025 09:28:19 AM Interpretation: Performing Lab: Notes/Report: WBC 7.1 4.8-10.8 [...] 0.0 0-0.2 K/mm3 NRBC# 0 IG# 0.06 BMP Reviewed date:05/03/2025 04:19:34 PM Interpretation: Performing Lab: Notes/Report: CMP Reviewed date:04/23/2025 11:42:34 AM Interpretation:Abnormal Performing Lab: Notes/Report: Abnormal H-BMP Reviewed date:04/05/2025 08:37:42 AM Interpretation: Performing Lab: Notes/Report: NA 141 136-145 mmol/L K 4.7 3.5-5.1 mmoL/L CL 98 98-107 mmol/L CO2 39 22.0-30.0 mmol/L GAP 8.7 5-15 mEq/L BUN 52 7-17 mg/dl CREATT 1.40 0.52-1.04 mg/dl CRCLE 42 50-200 mL/min GFRAA 43 >60 ML/MIN EGFR 36 >60 ml/min GLU 113 74-100 mg/dl CA 9.3 8.4-10.2 mg/dl H-CBC Reviewed date:04/05/2025 08:37:42 AM [...] 0.0 0-0.2 K/mm3 NRBC# 0 IG# 0.16 H-Sputum Culture with Gram Chaim gilliland Reviewed date:04/07/2025 01:00:59 PM Interpretation: Performing Lab: Notes/Report: Comment: Induce w/3ml NS neb tx if necessary Cancelled via OM: Order cancelled - Patient discharged Cancel Comments M-Venous Blood Gas Reviewed date:04/02/2025 11:02:14 AM Interpretation: Performing Lab: Notes/Report: PHVEN 7.37 7.31-7.41 mmol/L [id number] 59.8 35-51 mmol/L CRITICAL RESULT Results called to:DARLING RN by RT Oni, SCRAP CRANE OPERATOR at 0307 on 04/02/25 PO2VEN 36.9 28-40 mmol/L [id number] 34.0 23-30 mmol/L [id number] 35.9 23-27 mmol/L BEVEN 8.8 -2.4-2.3 mmol/L [id number] 71.7 50-70 % LACVEN 1.7 0.4-2.0 mmol/L CBC Reviewed date:04/01/2025 04:10:32 PM Interpretation: Performing Lab: Notes/Report: Iron Reviewed date:04/02/2025 11:02:14 AM Interpretation: Performing Lab: Notes/Report: Urine Culture and Sensitivit y Reviewed date:03/31/2025 02:29:25 PM Interpretation:No Growth Performing Lab: Notes/Report: No Growth UA Reviewed date:03/30/2025 01:01:11 PM Interpretation:Abnormal Performing Lab: Notes/Report: Abnormal H-DIFF Reviewed date:05/10/2025 09:28:20 AM Interpretation: Performing Lab: Notes/Report: MDIFF MANUAL DIFFERENTIAL MANUAL DIFF TCC 100 NEUT%M 87 42-76 % LYMPH%M 8 10-50 % MONO%M 5 2-9 % PLTE Slight Decrease RM Normal M-Venous Blood Gas Reviewed date:05/10/2025 09:28:20 AM Interpretation: Performing Lab: Notes/Report: PHVEN 7.52 7.31-7.41 mmol/L [id number] 25.1 35-51 mmol/L PO2VEN 163.1 28-40 mmol/L TMB1STT 19.8 23-30 mmol/L [id number] 20.6 23-27 mmol/L BEVEN -3.1 -2.4-2.3 mmol/L [id number] 98.9 50-70 % LACVEN 1.5 0.4-2.0 mmol/L H-CMP Reviewed date:05/10/2025 09:28:20 AM Interpretation: Performing Lab: Notes/Report: NA 141 [...] AGRATIO 1.3 1.1-1.8 ALP 74 38-126 U/L H-Sputum Culture with Gram S talat Reviewed date:05/14/2025 12:15:40 PM Interpretation: Performing Lab: Notes/Report: Comment: Induce w/3ml NS neb tx if necessary Cancelled via OM: Order cancelled - Patient discharged Cancel Comments H-CBC Reviewed date:05/10/2025 09:28:19 AM Interpretation: Performing Lab: Notes/Report: WBC 7.2 4.8-10.8 [...] 0-0.2 K/mm3 NRBC# 0 IG# 0.11 H-CMP Reviewed date:05/10/2025 09:28:19 AM Interpretation: Performing Lab: Notes/Report: NA 139 [...] 1.3 1.1-1.8 ALP 59 38-126 U/L H-PHOS Reviewed date:05/10/2025 09:28:19 AM Interpretation: Performing Lab: Notes/Report: PHOS 3.5 2.5-4.5 mg/dl H-Magnesium Reviewed date:05/10/2025 09:28:19 AM Interpretation: Performing Lab: Notes/Report: MG 1.7 1.6-2.3 mg/dl H-CBC Reviewed date:05/12/2025 08:46:02 AM Interpretation: Performing Lab: Notes/Report: WBC 10.7 4.8-10.8 K/mm3 Delta: 7.2 on 05/10/25 RBC 3.88 4.20-5.40 M/mm3 HGB 10.8 12.2-16.2 g/dL HCT 34.9 37.0-47.0 % MCV 89.9 81-99 fl MCH 27.8 27.0-31.2 pg MCHC 30.9 31.8-35.4 g/dL RDW-SD 58.0 RDW 17.8 11.5-17.5 % PLT 134 142-424 K/mm3 Delta: 101 on 05/10/25 MPV 10.0 7.4-10.4 fl NE% 75.3 37.0-80.0 % LY% 9.6 10-50 % MO% 7.5 1.7-9.3 % EO% 1.2 0.1-12.0 % BA% 0.6 0.1-2.0 % NRBC% 0 IG% 5.8 NE# 8.1 1.8-7.8 K/mm3 LY# 1.0 0.7-4.5 K/mm3 MO# 0.8 0.1-1.0 K/mm3 EO# 0.1 0.0-0.4 Kmm3 BA# 0.1 0-0.2 K/mm3 NRBC# 0 IG# 0.62 H-DIFF Reviewed date:05/12/2025 08:46:03 AM Interpretation: Performing Lab: Notes/Report: PIPE MANUAL DIFFERENTIAL MANUAL DIFF TCC 100 NEUT%M 81 42-76 % LYMPH%M 10 10-50 % MONO%M 8 2-9 % EOS%M 1 0-3 % PLTE Normal RM Normal H-CMP Reviewed date:05/12/2025 08:46:03 AM Interpretation: Performing Lab: Notes/Report: NA 143 136-145 mmol/L K 4.2 3.5-5.1 mmoL/L CL 110 98-107 mmol/L CO2 28 22.0-30.0 mmol/L GAP 9.2 5-15 mEq/L BUN 40 7-17 mg/dl Delta: 67 on 05/10/25 CREATT 1.70 0.52-1.04 mg/dl CRCLE 35 50-200 mL/min GFRAA 34 >60 ML/MIN Delta: 27 on 05/10/25-535 EGFR 28 >60 ml/min GLU 105 74-100 mg/dl CA 9.4 8.4-10.2 mg/dl BILIT 0.6 0.2-1.3 mg/dl AST 33 14-36 U/L ALT 11 12-78 U/L TP 6.0 6.3-8.2 g/dl ALB 3.2 3.5-5.0 g/dl GLOB 2.8 1.3-3.2 g/dL AGRATIO 1.1 1.1-1.8 ALP 80 38-126 U/L H-UA Reviewed date:03/15/2025 04:38:33 PM [...] Lab: Notes/Report: CUU Multiple organisms, suggests contamination. H-Urine Culture and Sensitiv ity Reviewed date:03/15/2025 04:38:33 PM Interpretation: Performing Lab: Notes/Report: CUU Multiple organisms, suggests contamination. Medications Medication SIG (Take, Route, Frequency, Duration) Notes Start Date End Date Status Fluticasone-Salmeter ol 250-50 MCG/ACT 1 puff Inhalation Twice a day Active Nebulizer - as directed 12/03/2024 Activ e Glucosamine Sulfate 1000 MG as directed Orally qd Active Oxygen - per nasal cannula as directed 3 LPM Active CPAP machine and supplies - as directed as directed at night and whenever sleepng Active amLODIPine Besylate 5 MG 1 tablet Orally Once a day Active Multivitamin Adults - as directed Orally qd Active Nystatin 232321 UNIT/GM 1 application beneath b breasts Externally Twice a day Active Fluticasone Propionate 50 MCG/DOSE [...] orally once a day at bedtime Active Bumetanide 1 MG 1 tablet Orally Once a day; Duration: 30 day(s) 07/04/2025 Active Eye Vitamins - as directed Orally Not-Taking Pregabalin 75 MG 1 cap(s) orally 2 times a day Active Ipratropium-Albutero l 0.5-2.5 (3) MG/3ML 3 mL as needed Inhalation every 6 hrs Active amLODIPine Besylate 5 MG 1 tablet Orally Once a day; Duration: 30 day(s) Active Caltrate 600+D3 600-800 MG-UNIT 1 tablet with a meal Orally Once a day Active Famotidine 20 MG 1 tablet Orally Once a day Active Hospital Bed - as directed 12/28/2024 Ac tive CeraVe Daily Moisturizing - as directed Externally daily Active Regular Diet - as directed RICARDO; CCHO; mechanical soft Active oxyBUTYnin Chloride ER 10 MG 2 tab(s) Orally Once a day Active Ipratropium-Albutero l 0.5-2.5 (3) MG/3ML 3 mL as needed Inhalation every 6 hours As needed Active Metoprolol Succinate 50 MG 1/2 tab Orally Once a day Active Simvastatin 20 MG TAKE 1 TABLET BY MOUTH ONCE DAILY AT BEDTIME FOR 90 DAYS Active Esomeprazole Magnesium 40 MG 1 cap(s) orally once a day Active Lidocaine 4 % 1 patch as needed Externally daily As needed Active Vitamin B12 1000 MCG 1 tablet Orally Once a day Active Loperamide HCl 2 MG 1 capsule as needed Orally 4 times a day As needed Active Acetaminophen 500 MG 1 tablet as needed Orally every 6h prn Active Nebulizer Air Tube/Plugs - as directed [...] Status W/U Status Risk Notes Problem Hyperlipidaemia (84901694) Hyperlipemia (272.4) Active confirmed Problem Essential hypertension (43532813) Essential (primary) hypertension (I10) Active confirmed Problem Tear film insufficiency (21221271) Dry eyes, bilateral (H04.123) Active confirmed Problem History of malignant melanoma of the skin (985476530200) History of melanoma (Z85.820) Active confirmed Problem Essential hypertension (30281710) Essential hypertension (I10) Active confirmed Problem Hypertriglyceridemia (198492093) Hypertriglyceridemia (E78.1) Active confirmed Problem Long-term current us e 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 (865165880) 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) Active confirmed Problem Obstructive sleep apnea (45221331) Obstructive sleep apnea (G47.33) Active confirmed Problem Hypokalemia (49047876) History of hypokalemia (Z86.39) Active confirmed Problem Mixed anxiety and depressive disorder (419922271) Depression with anxiety (F41.8) Active confirmed Problem Acute exacerbation o f chronic obstructive airways disease () COPD exacerbation (J44.1) Active confirmed Problem Mixed hyperlipidemia (922256483) Mixed hyperlipidemia (E78.2) Active confirmed Problem Hypomagnesemia (926091809) Hypomagnesemia (E83.42) Active confirmed Problem Allergic rhinitis (13026217) Allergic rhinitis, unspecified (J30.9) Active confirmed Problem Chronic pulmonary edema (47111787) Chronic pulmonary edema (J81.1) Active confirmed Problem Chronic respiratory failure (47297141) Chronic respiratory failure, unspecified whether with hypoxia or hypercapnia (J96.10) Active confirmed Problem Lyckw-un-jrlzalh hypoxemic respiratory failure (75491567915411221) Acute and chronic respiratory failure with hypoxia (J96.21) Active confirmed Problem Abnormal findings on diagnostic imaging of breast (650027167) Other abnormal and inconclusive findings on diagnostic imaging of breast (R92.8) Active confirmed Problem History of polyp of colon (situation) (328921318) History of colon polyps (Z86.010) Active confirmed Problem Chronic pain (00904157) Other chronic pain (G89.29) Active confirmed Problem Pulmonary emphysema (21398614) Pulmonary emphysema, unspecified emphysema type (J43.9) Active confirmed Problem Primary osteoarthritis (934694953) Primary osteoarthritis involving multiple joints (M15.0) Active confirmed Problem Gastroesophageal reflux disease (disorder) (155175015) Chronic GERD (K21.9) Active confirmed Problem COPD - Chronic obstructive pulmonary disease (13495107) Chronic obstructive pulmonary disease, unspecified COPD type (J44.9) Active confirmed Problem Acute exacerbation o f chronic obstructive airways disease () Acute exacerbation of chronic obstructive pulmonary disease (COPD) (J44.1) Active confirmed Problem Gastroesophageal reflux disease (450740244) Gastroesophageal reflux disease, esophagitis presence not specified (K21.9) Active confirmed Problem Neuropathy (016861101) Neuropathy (G62.9) Active confirmed Problem Allergic rhinitis (01259236) Allergic rhinitis (J30.9) Active confirmed Problem Lumbar spinal stenosis (89954913) Spinal stenosis, lumbar (M48.06) Active confirmed Problem Osteoporosis (72780227) Osteoporosis (M81.0) Active confirmed Problem Cardiac arrhythmia (574493841) Atrial dysrhythmia (I49.8) Active confirmed Problem Anemia (473023144) Anemia, unspe cified type (D64.9) Active confirmed Problem Sleep apnea (96646978) Sleep apnea, unspecified type (G47.30) Active confirmed Problem Hyperlipidaemia (03064041) Hyperlipidemia, unspecified hyperlipidemia type (E78.5) Active confirmed Problem Polyneuropathy due t o type 2 diabetes mellitus (370153322) 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) Active confirmed Problem Blcvx-bb-lahlrhm hypoxemic respiratory failure (00344058937983040) Acute on chronic respiratory failure with hypoxia (J96.21) Active confirmed Problem Diabetes mellitus type 2 (disorder) (47807149) DM2 (diabetes mellitus, type 2) (E11.9) Active confirmed Problem Atrial ectopic (777121853) Atrial ectopic (I49.1) Active confirmed Problem Low back pain (836029329) Chronic right-sided low back pain without sciatica (M54.5) Active confirmed Problem Type II diabetes mellitus without complication (974996284) Type 2 diabetes mellitus without complication, without long-term current use of insulin (E11.9) Active confirmed Problem Cramp in lower leg associated with rest (344143269) Leg cramps, sleep related (G47.62) Active confirmed Problem 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, choroid, 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 Problem Hypertensive urgency (524497871) Hypertensive urgency (I16.0) Active confirmed Problem Urge incontinence of urine (89220209) Urge incontinence of urine (N39.41) Active confirmed Problem Sleep apnea (32752394) Sleep apnea in adult (G47.30) Active confirmed Problem Arthritis of right hip (3438408601476646) Arthritis of right hip (M16.11) Active confirmed Problem Deformity of foot (finding) (731861220) Deformity of foot, unspecified laterality (M21.969) Active confirmed Problem Type II diabetes mellitus without complication (419176906) Type 2 diabetes mellitus without complication, unspecified whether assisted insulin use (E11.9) Active confirmed Problem Diastolic dysfunctio n (9498290) Diastolic dysfunction (I51.89) Active confirmed Problem Osteomyelitis (09937886) Osteomyelitis of toe of right foot (M86.9) Active confirmed Problem Gastroesophageal reflux disease (885760513) Gastroesophageal reflux disease, unspecified whether esophagitis present (K21.9) Active confirmed Problem Diabetes mellitus without complication (139066677) 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, 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) Active confirmed Problem Chronic kidney disease stage 3B (disorder) (886501469) Stage 3b chronic kidney disease (CKD) (N18.32) Active confirmed Problem Chronic kidney disease stage 3A (disorder) (956437910) Stage 3a chronic kidney disease (CKD) (N18.31) Active confirmed Problem Anemia (043516088) Acute anemia (D64.9) Active confirmed Problem Abnormal gait (92921688) Inability to bear weight (R26.89) Active confirmed Problem Left ankle joint deformity (M21.962) Active confirmed Vital Signs Heart Rate 79 /min 07/13/2025 Respiratory Rate 16 /min 07/13/2025 Blood pressure diastolic 70 mm Hg 07/13/2025 Height 65.50 in 04/22/2025 Blood pressure systolic 145 mm Hg 07/13/2025 Weight 190.6 lbs 07/13/2025 BMI 32.51 kg/m2 04/22/2025 Encounters Encounter Location Date Provider Diagnosis [address] [place] [id number] 07/21/2024 Yvette Harris Acute on chronic respiratory failure with hypoxia J96.21 ; Acute left ankle pain M25.572 ; Left ankle joint deformity M21.962 ; Left ankle instability M25.372 ; Hypoxia R09.02 ; Generalized weakness R53.1 ; Type 2 diabetes mellitus without complication, unspecified whether assisted insulin use E11.9 ; Essential (primary) hypertension [...] R53.81 and Leg cramps, sleep related G47.[address] [facility] [address] [place] [id number] 08/25/2024 Yvette Harris Left ankle joint deformity M21.962 ; Acute anemia D64.9 ; Neuropathy G62.9 ; Hyperlipidemia, unspecified hyperlipidemia type E78.5 ; Hypomagnesemia E83.42 ; Acute on chronic respiratory failure with hypoxia J96.21 ; Acute left ankle pain M25.572 ; Left ankle instability M25.372 ; Hypoxia R09.02 ; Generalized weakness R53.1 ; Type 2 diabetes mellitus without complication, unspecified whether children librarian insulin use E11.9 ; Essential (primary) hypertension [...] R53.81 and Leg cramps, sleep related G47.62 [facility] [address] [facility] [address] [place] [id number] 09/22/2024 Allan Adamson Essential hypertensi on I10 ; Chronic obstructive pulmonary disease, unspecified COPD type J44.9 ; Dry eyes, bilateral H04.123 ; Depression with anxiety F41.8 ; Gastroesophageal reflux disease, esophagitis presence not specified K21.9 ; Hypomagnesemia E83.42 ; Debility R53.81 ; Allergic rhinitis J30.9 ; Osteoporosis M81.0 and Obstructive sleep apnea G47.33 [facility] [address] [place] [id number] 12/21/2024 Allan Adamson Type 2 diabetes rere itus without complication, without long-term current use of insulin E11.9 ; Chronic respiratory failure, unspecified whether with hypoxia or hypercapnia J96.10 ; Other hemorrhoids K64.8 ; BRBPR (bright red blood per rectum) K62.5 ; Hypomagnesemia E83.42 ; Stage 3b chronic kidney disease (CKD) N18.32 and Chronic obstructive pulmonary disease, unspecified COPD type J44.[address] [place] [id number] 04/13/2025 Yvette Harris Chronic pulmonary [place] [...] 2 diabetes mellitus without complication, unspecified whether assisted insulin use E11.[address] [place] [id number] 04/27/2025 Yvette Harris Chronic pulmonary [place] [...] Peripheral edema R60.9 and Dry skin L85.3 [place] [address] [place] [id number] 05/18/2025 Yvette Harris Acute pneumonia J18. 9 [...] 2 diabetes mellitus without complication, unspecified whether assisted insulin use E11.[address] [place] [id number] 05/25/2025 Yvette Harris Acute pneumonia J18. 9 [...] 2 diabetes mellitus without complication, unspecified whether children librarian insulin use E11.[address] [id number] 06/15/2025 [facility] Chronic pulmonary ed [place] J81.1 ; Diabetic [...] Peripheral edema R60.9 and Dry skin L85.[address] [id number] 06/22/2025 [facility] Chronic pulmonary ed [place] J81.1 ; Stage [...] Peripheral edema R60.9 and Dry skin L85.[address] [place] [address] [place], [place] [id number] 06/29/2025 Yvette Harris Chronic pulmonary ed [place] [...] and DM2 (diabetes mellitus, type 2) E11.[address] [place] [address] [place] [id number] 07/13/2025 Yvette Harris [facility] [address] [place] [id number] 08/04/2024 Allan [place] [facility] [address] [place] [id number] 08/10/2024 Allan [place] [facility] [address] [place], [place] [id number] 08/21/2024 Allan [place] [facility] [address] [place], [place] [id number] 09/07/2024 Allan [place] Diabetic polyneuropa thy associated with type 2 diabetes mellitus E11.42 [facility] [address] [place] [id number] 09/07/2024 Allan [place] Type 2 diabetes rere itus without complication, unspecified whether children librarian insulin use E11.9 ; Peripheral edema R60.9 and Debility R53.81 [facility] [address] [place] [id number] 09/08/2024 Allan [place] Type 2 diabetes rere itus without complication, unspecified whether children librarian insulin use E11.9 [facility] [address] [place] [id number] 09/22/2024 Allan [place] [facility] [address] [place] [id number] 09/24/2024 Allan [place] Allergic rhinitis J3 0.9 [facility] [address] [place] [id number] 11/04/2024 Allan [place] [facility] [address] [place] [id number] 11/04/2024 Allan [place] Gastroesophageal ref lux disease, esophagitis presence not specified K21.9 and Diabetic polyneuropathy associated with type 2 diabetes mellitus E11.42 [facility] [address] [place] [id number] 11/05/2024 Allan [place] [facility] [address] [place] [id number] 11/12/2024 Allan [place] [facility] [address] [place] [id number] 11/13/2024 Ata Vences Essential hypertensi on I10 and Diabetic polyneuropathy associated with type 2 diabetes mellitus E11.42 [facility] [address] [place] [id number] 11/27/2024 Allan [place] [facility] [address] [place] [id number] 12/03/2024 Allan [place] Chronic obstructive pulmonary disease, unspecified COPD type J44.9 [facility] [address] [place] [id number] 12/18/2024 Allan [place] [facility] [address] [place] [id number] 12/21/2024 Allan [place] Urge incontinence of urine N39.41 and Hyperlipidemia, unspecified hyperlipidemia type E78.5 [facility] [address] [place] [id number] 12/22/2024 Allan [place] [facility] [address] [place] [id number] 12/23/2024 Allan [place] [facility] [address] [place] [id number] 12/24/2024 Allan [place] [facility] [address] [place] [id number] 12/25/2024 Allan [place] [facility] [address] [place] [id number] 12/28/2024 Allan [place] [facility] [address] [place] [id number] 12/30/2024 Allan [place] [facility] [address] [place] [id number] 12/30/2024 Allan [place] [facility] [address] [place] [id number] 01/04/2025 Allan [place] [facility] [address] [place] [id number] 02/12/2025 Allan [place] [facility] [address] [place] [id number] 02/24/2025 Allan [place] [facility] [address] [place] [id number] 03/02/2025 Allan [place] [facility] [address] [place] [id number] 03/08/2025 Allan [place] Diabetic polyneuropa thy associated with type 2 diabetes mellitus E11.42 [facility] [address] [place] [id number] 03/25/2025 Allan [place] [facility] [address] [place] [id number] 03/29/2025 Allan [place] [facility] [address] [place] [id number] 03/31/2025 Allan [place] [facility] [address] [place] [id number] 03/31/2025 Allan Mount Vernon [facility] [address] [place], [place] [id number] 04/01/2025 Allan Mount Vernon [facility] [address] [place], [place] [id number] 04/07/2025 Allan Mount Vernon Diabetic polyneuropa thy associated with type 2 diabetes mellitus E11.42 [facility] [address] [place], [place] [id number] 04/14/2025 Allan Mount Vernon [facility] [address] [place], [place] [id number] 04/15/2025 Allan Mount Vernon [facility] [address] [place] [id number] 04/19/2025 Allan Mount Vernon [facility] [address] [place], [place] [id number] 04/21/2025 Allan Mount Vernon [facility] [address] [place], [place] [id number] 04/21/2025 Vyette Harris [facility] [address] [place], [place] [id number] 04/22/2025 Yvette Harris [facility] [address] [place] [id number] 04/23/2025 Allan Mount Vernon [facility] [address] [place] [id number] 04/28/2025 Yvette Harris [facility] [address] [place] [id number] 05/06/2025 Allan Mount Vernon [facility] [address] [place], [place] [id number] 05/14/2025 Allan Mount Vernon [facility] [address] [place] [id number] 05/19/2025 Allan Mount Vernon [facility] [address] [place] [id number] 05/26/2025 Allan Mount Vernon [facility] [address] [place] [id number] 05/27/2025 Allan Mount Vernon [facility] [address] [place] [id number] 05/31/2025 Allan Mount Vernon [facility] [address] [place] [id number] 06/01/2025 Allan Mount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
--- OUTSIDE RECORDS SUMMARY | 2025-07-19 07:25 | XMS_ITS | Encounter Summary ---
Author Organization [employer] ([place], [place], [place], [place], [place]) Address [address] [place] [address] Care Team Providers Care Shovel Handle Assembler Name Role Phone [facility] Mikal, Find-A-Doc Primary Care Provider Encounter Details Date Type Department Care Team (Latest Contact Info) Description 06/04/2025 Travel Social History Tobacco Use Types Packs/Day Years Used Date Smoking Tobacco: Former Cigarettes Q uit: 2015 Smokeless Tobacco: Never Alcohol Use Standard Drinks/Week Comments Never 0 [...] your living situation today? I [facility] live 06/04/2025 Think about the [...] Do you speak a language other than [place] [facility]? No 06/04/2025 Do you want help with [...] on file documented as of this encounter Plan of Treatment Not on file documented as of this encounter Visit Diagnoses Not on filedocumented in this encounter Care Teams Shovel Handle Assembler Relationship Specialty Start Date End Date [facility], Find-A-Doc [facility] Find-a-Doc [place] [phone] PCP - General 06/03/25 06/10/25 documented as of this encounter
--- OUTSIDE RECORDS SUMMARY | 2025-07-19 07:27 | XMS_ITS | Referral Summary ---
Author Organization [employer] ([place], [place], [place], [place], [place]) Address [address] [place] [address] Care Team Providers Care Senior Storage Administrator Name Role Phone Allan Adamson MD Primary Care Provider [phone] Encounters Date Type Department Care Team Description 06/03/2025 10:40 PM EDT - 06/11/2025 5:36 PM EDT Hospital Encounter [facility] 5B Medical Telemetry Unit [address] [place] [address] Sima Mancia MD Kredan, Tawfik, MD Lewis, Paige, MD Acute renal failure, unspecified acute renal failure type (HCC) (Primary Dx) Discharge Disposition: [facility] 06/04/2025 Travel from Last 3 Months Allergies Active Allergy Reactions Criticality Noted Date Comments Azithromycin 06/03/2025 Ceftriaxone 06/03/2025 Pollen Extracts 06/03/2025 Medications metFORMIN (GLUCOPHAGE) 500 MG tablet Take 1 tablet (500 mg total) by mouth 2 (two) times daily with breakfast and dinner Look-alike/Jane nd-alike medication. Active simvastatin (ZOCOR) 20 MG tablet Take 1 tablet (20 mg total) by mouth nightly. Active escitalopram (LEXAPRO) 20 MG tablet Take 1 tablet (20 mg total) by mouth daily. Active fluticasone propion-salmete roL (ADVAIR) 250-50 mcg/dose diskus inhaler Inhale 1 puff by mouth 2 (two) times daily. Active esomeprazole (NexIUM) 40 MG capsule Take 1 capsule (40 mg total) by mouth Daily (0600). Active calcium carbonate (OS-ERASMO) 600 mg calcium (1,500 mg) Take 600 mg by mouth daily. Active furosemide (LASIX) 40 MG tablet Take 1 tablet (40 mg total) by mouth daily. Active dapagliflozin propanediol (Farxiga) 10 mg tablet Take 1 tablet (10 mg total) by mouth daily. Active ipratropium-alb uteroL (DUO-NEB) 0.5 mg-3 mg(2.5 mg base)/3 mL nebulizer solution Inhale 3 mLs by nebulization every 6 (six) hours as needed for wheezing. Active montelukast (SINGULAIR) 10 mg tablet Take 1 tablet (10 mg total) by mouth nightly. Active cyanocobalamin 1000 MCG tablet Take 1 tablet (1,000 mcg total) by mouth daily. Active loperamide (IMODIUM) 2 mg capsule Take 1 capsule (2 mg total) by mouth 4 (four) times daily as needed for diarrhea. Active oxybutynin (DITROPAN-XL) 10 MG 24 hr tablet Take 2 tablets (20 mg total) by mouth nightly. Active acetaminophen (TYLENOL) 500 MG tablet Take 1 tablet (500 mg total) by mouth every 6 (six) hours as needed for pain. Active menthol (Biofreeze, menthol,) 5 % gel Apply 1 Application topically 4 (four) times daily as needed (Pain). Active ceramides 1,3,6-II (CeraVe Daily Moisturizing) lotn Apply 1 Application topically daily. Active jsqzeoqb-rhx-HI -lycopen-lutein (CertaVite Senior) 0.4 mg-300 mcg- 250 mcg tab tablet Take 1 tablet by mouth daily. Active glucosamine sulfate (Glucosamine) 500 mg tab Take 1,000 mg by mouth daily. Active fluticasone propionate (FLONASE) 50 mcg/actuation nasal spray Administer 2 sprays into each nostril daily. Active lidocaine (LIDODERM) 4 % patch Place 1 patch on the skin daily. Active famotidine (PEPCID) 20 MG tablet Take 1 tablet (20 mg total) by mouth daily. 5 Active metoprolol succinate (TOPROL-XL) 25 MG 24 hr tablet Take 0.5 tablets (12.5 mg total) by mouth daily for 30 days. 15 tablet 5 025 amLODIPine (NORVASC) 5 MG tablet Take 1 tablet (5 mg total) by mouth daily for 30 days. 30 tablet 5 025 Active Problems Problem Noted Date Diagnosed Date Acute renal failure (ARF) 06/03/2025 Social History Tobacco Use Types Packs/Day Years Used Date Smoking Tobacco: Former Cigarettes Q uit: 2014 Smokeless Tobacco: Never Tobacco Cessation:Counseling Given: Not [...] your living situation today? [facility] a [facility] live 06/04/2025 Think about [...] Do you speak a language other than [place] [facility]? No 06/04/2025 Do you want help with [...] PM CDT Sexual Orientation Not on file Last Filed [...] Mass Index 29.94 06/04/2025 1:00 AM EDT Plan of Treatment Not on file Procedures Procedure Name Priority Date/Time Associated Diagnosis [...] GLUCOSE POC Routine 06/10/2025 6:05 AM EDT MAGNESIUM Routine 06/10/2025 3:43 AM EDT CBC W/ AUTO DIFF Routine 06/10/2025 3:43 AM EDT BASIC METABOLIC PANEL Routine 06/10/2025 3:43 AM EDT NOVA GLUCOSE POC Routine 06/09/2025 8:49 PM EDT NOVA GLUCOSE POC Routine 06/09/2025 5:50 PM EDT NOVA GLUCOSE POC Routine 06/09/2025 11:4 3 AM EDT MAGNESIUM Routine 06/09/2025 7:24 AM EDT CBC W/ AUTO DIFF Routine 06/09/2025 7:24 AM EDT BASIC METABOLIC [...] GLUCOSE POC Routine 06/07/2025 6:21 AM EDT MAGNESIUM Routine 06/07/2025 4:23 AM EDT CBC W/ AUTO DIFF Routine 06/07/2025 4:23 AM EDT BASIC METABOLIC [...] GLUCOSE POC Routine 06/06/2025 6:24 AM EDT MAGNESIUM Routine 06/06/2025 4:24 AM EDT CBC W/ AUTO DIFF Routine 06/06/2025 4:24 AM EDT BASIC METABOLIC [...] POC Routine 06/04/2025 11:3 7 AM EDT [id number] ACTIVITY(SENDOUT) Routine 06/04/2025 10:58 AM EDT RENAL FUNCTION PANEL STAT 06/04/2025 10:58 AM EDT SHAYAN REFLEXIVE PROFILE(SENDOUT) Routine 06/04/2025 10:57 AM EDT COMPLEMENT COMPONENTS 3 AND 4(SENDOUT) Routine 06/04/2025 10:53 AM EDT XR CHEST AP PORTABLE Routine 06/04/2025 9:07 AM EDT FS_MODEL_IP_ECG 12-LEAD Routine 06/04/2025 7:16 AM EDT NOVA GLUCOSE POC Routine 06/04/2025 5:56 AM EDT PROBNP Add-On 06/04/2025 5:02 AM EDT PROCALCITONIN Add-On 06/04/2025 5:02 AM EDT LACTATE DEHYDROGENASE (LDH) Add-On 06/04/2025 5:02 AM EDT MAGNESIUM Routine 06/04/2025 5:02 AM EDT VITAMIN B12 Routine 06/04/2025 5:02 AM EDT FERRITIN Routine 06/04/2025 5:02 AM EDT IRON AND TIBC Routine 06/04/2025 5:02 AM EDT COMPREHENSIVE METABOLIC PANEL Routine 06/04/2025 5:02 AM EDT CBC W/ AUTO DIFF Routine 06/04/2025 4:41 AM EDT XR CHEST AP PORTABLE ARMANDO 06/04/2025 1:49 AM EDT CHLORIDE, RANDOM URINE Routine 11:50 PM EDT UREA NITROGEN, RANDOM URINE Routine 06/03/2025 11:50 PM EDT LEGIONELLA ANTIGEN, URINE Routine 06/03/2025 11:50 PM EDT CREATININE, RANDOM URINE Routine 06/03/2025 11:50 PM EDT PROTEIN, RANDOM URINE Routine 06/03/2025 11:50 PM EDT SODIUM, RANDOM URINE Routine 06/03/2025 11:50 PM EDT STREP PNEUMONIAE URINE ANTIGEN Routine 06/03/2025 11:50 PM EDT CREATINE KINASE (CK) Routine 06/03/2025 11:43 PM EDT PHOSPHORUS STAT 06/03/2025 11:43 PM EDT MAGNESIUM STAT 06/03/2025 11:43 PM EDT BASIC METABOLIC PANEL STAT 06/03/2025 11:43 PM EDT [facility] CBC SCAN Routine 06/03/2025 11:42 PM EDT LACTIC ACID WITH REFLEX STAT 06/03/2025 11:42 PM EDT CBC W/ AUTO DIFF STAT 06/03/2025 11:4 2 PM EDT EKG-SCANNED 06/03/2025 EKG-SCANNED 06/03/2025 from Last 3 Months Results * Glucose, Nova Meter (06/11/2025 3:46 PM EDT) Only the most recent of32 resultswithin the time period is included. [facility] POC-GLUCOSE 86 70 - 110 mg/dL 06/11/2025 3:[address] [facility] Comment:In the event of poor peripheral blood flow, venous or arterial blood should be used due to the potential of erroneous results. Pyrotechnician [id number] 06/11/2025 3:[address] [facility] Blood WHOLE BLOOD / Unknown 06/11/2025 3:46 PM EDT 06/11/2025 3:[address] [facility] - 06/11/2025 3:55 PM EDT Notified RN/MD us Charity Steiner MD POINT OF CARE TEST ORDERABLES Fi nal Result [facility] [address] [place] [id number], [facility] [phone] * (ABNORMAL) CBC with automated diff (06/11/2025 4:35 AM EDT) Only the most recent of9 resultswithin the time period is included. [facility] WBC 6.0 4.0 - 10.0 K/ L 06/11/2025 5:[address] [facility] RBC 3.11(L) 3.93 - 5.22 M/ L 06/11/2025 5:[address] [facility] Hemoglobin 9.4(L) 11.2 - 15.7 GM/DL 06/11/2025 5:[address] [facility] Hematocrit 28.5(L) 34.1 - 44.9 % 06/11/2025 5:[address] [facility] MCV 92 79 - 95 fL 06/11/2025 5:[address] [facility] MCH 30.2 25.6 - 32.2 pg 06/11/2025 5:[address] [facility] MCHC 33.0 32.2 - 35.5 GM/DL 06/11/2025 5:[address] [facility] RDW 16.9(H) 11.7 - 14.4 % 06/11/2025 5:[address] [facility] Platelets 246 140 - 375 K/CU MM 06/11/2025 5:[address] [facility] MPV 11.7 9.4 - 12.3 fL 06/11/2025 5:[address] [facility] % Neutros 60 34 - 71 % 06/11/2025 5:[address] [facility] % Lymphs 20 19 - 52 % 06/11/2025 5:[address] [facility] % Monos 13 5 - 13 % 06/11/2025 5:[address] [facility] % Eos 3.7 1.0 - 6.0 % 06/11/2025 5:[address] [facility] % Baso 1 0 - 1 % 06/11/2025 5:[address] [facility] NRBC Absolute <0.01 0 - 0.012 K/ul 06/11/2025 5:[address] [facility] # Neutros 3.59 1.56 - 6.13 K/ L 06/11/2025 5:[address] [facility] # Lymphs 1.18 1.18 - 3.74 K/ L 06/11/2025 5:[address] [facility] # Monos 0.78 0.24 - 0.86 K/ L 06/11/2025 5:[address] [facility] # Eos 0.22 0.04 - 0.36 K/ L 06/11/2025 5:[address] [facility] # Baso 0.04 0.01 - 0.08 K/ L 06/11/2025 5:[address] [facility] % Imm Grans 3.50(H) 0.01 - 0.43 % 06/11/2025 5:[address] [facility] # IG 0.21(H) 0.00 - 0.03 K/uL 06/11/2025 5:[address] [facility] Blood Venipuncture / Unknown 06/11/2025 4:35 AM EDT 06/11/2025 4:[address] [facility] - 06/11/2025 5:07 AM EDT When [...] MD LAB BLOOD ORDERABLES Final Resul t [facility] [address] [phone] * (ABNORMAL) Basic Metabolic Panel (06/11/2025 4:35 AM EDT) Only the most recent of9 resultswithin the time period is included. Sodium 142 136 - 145 meq/L 06/11/2025 5:[address] [facility] Potassium 4.2 3.4 - 5.1 meq/L 06/11/2025 5:[address] [facility] CO2 28 22 - 29 meq/L 06/11/2025 5:[address] [facility] Chloride 102 98 - 112 meq/L 06/11/2025 5:[address] [facility] Glucose 82 82 - 115 mg/dL 06/11/2025 5:[address] [facility] BUN 54.3(H) 9.8 - 20.1 mg/dL 06/11/2025 5:[address] [facility] Creatinine 2.40(H) 0.50 - 1.20 mg/dL 06/11/2025 5:[address] [facility] BUN/Creatinine 23(H) 8 - 20 06/11/2025 5:[address] [facility] Calcium 9.2 8.4 - 10.2 mg/dL 06/11/2025 5:[address] [facility] Anion Gap 16(H) 4 - 12 06/11/2025 5:[address] [facility] eGFR (mL/min/1.73m2) 19(L) >=60 mL/min/1.7 3m2 06/11/2025 5:[address] [facility] Comment:ESTIMATED GFR IS NOT ACCURATE CREATININE CLEARANCE IN PREDICTING GLOMERULAR FILTRATION RATE. ESTIMATED GFR IS NOT APPLICABLE FOR DIALYSIS PATIENTS. Osmolality Calc 297.1 mOsm/kg 5:[address] [facility] Blood Venipuncture / Unknown 06/11/2025 4:35 AM EDT 06/11/2025 4:52 AM EDT us Charity Steiner MD LAB BLOOD ORDERABLES Final Resul t [facility] [address] [phone] * Potassium (06/10/2025 11:08 AM EDT) Potassium 3.9 3.4 - 5.1 meq/L 06/10/2025 1:[address] [facility] Blood Venipuncture / Unknown 06/10/2025 11:08 AM EDT 06/10/2025 11:11 AM EDT us Charity Steiner MD LAB BLOOD ORDERABLES Final Resul t Performing Organization Address [facility] Co de Phone Number [facility] [address] [id number] [phone] * ECG 12 lead (06/10/2025 9:57 AM EDT) Only the most recent of8 resultswithin the time period is included. VENTRICULAR RATE EKG/MIN 56 BPM GE MUSE ATRIAL RATE (MCT) 56 BPM GE MUSE MI Interval 228 ms GE MUSE QRS-INTERVAL (MSEC) 126 ms GE MUSE QT Interval 450 ms GE MUSE QTC Interval 434 ms GE MUSE P [place] 8 degrees GE MUSE R AXIS (MCT) 25 degrees GE MUSE T Wave [place] 0 degrees GE MUSE [place] Diagnosis Sinus bradycardia with 1st degree AV [...] 9:57 AM EDT 06/11/2025 12:09 AM EDT us Charity Steiner MD ECG ORDERABLES Final Result Performing Organization Address [facility] de Phone Number GE MUSE * Magnesium (06/10/2025 3:43 AM EDT) Only the most recent of6 resultswithin the time period is included. Pathologist [facility] Magnesium 1.6 1.6 - 2.6 mg/dL 06/10/2025 4:[address] [facility] Blood Venipuncture / Unknown 06/10/2025 3:43 AM EDT 06/10/2025 3:56 AM EDT us Charity Steiner MD LAB BLOOD ORDERABLES Final Resul t Performing Organization Address City/[facility] Co de Phone Number [facility] [address] [place] [address] * XR KUB PORTABLE (06/08/2025 10:23 PM EDT) Only the most recent of4 resultswithin the time period is included. Anatomical Region Laterality Modality Abdomen X-Ray 06/08/2025 [...] DIAGNOSTIC IMAGING ORDERAB LES Final Result * XR chest AP portable (06/07/2025 2:31 PM EDT) Only the most recent of4 resultswithin the time period is included. Anatomical Region Laterality Modality Chest X-Ray 06/07/2025 [...] DIAGNOSTIC IMAGING ORDERAB LES Final Result * CT CHEST WITHOUT IV CONTRAST (06/05/2025 [...] Lino Main. Transcribed by Estela Bueno PA-C. Octavio Odell MD IMG CT ORDERABLES Final Resul t * (ABNORMAL) Urinalysis w/Microscopic (06/04/2025 6:56 PM EDT) Color, UA Light Yellow 06/04/2025 7:[address] [facility] Clarity, UA Turbid(A) Clear 06/04/2025 7:[address] [facility] Specific [place], UA 1.013 1.005 - 1.030 06/04/2025 7:[address] [facility] pH, UA 5.5(L) 6.0 - 8.0 06/04/2025 7:[address] [facility] Leukocytes, UA 250 Danielle/uL(A) Negative 06/04/2025 7:[address] [facility] Nitrite, UA Negative Negative 06/04/2025 7:[address] [facility] Protein, UA Trace(A) Negative 06/04/2025 7:[address] [facility] Glucose, UA 2+(A) Normal 06/04/2025 7:[address] [facility] Ketones, UA Negative Negative 06/04/2025 7:[address] [facility] Urobilinogen, UA Normal Normal 06/04/20 25 7:[address] [facility] Bilirubin, UA Negative Negative 06/04/2025 7:[address] [facility] Blood, UA 3+(A) Negative 06/04/2025 7:[address] [facility] RBC, UA 51-100(A) None Seen /HPF 06/04/2025 7:[address] [facility] WBC, UA 21-50(A) None Seen /HPF 06/04/2025 7:[address] [facility] Bacteria, UA 1+(A) None Seen, Trace 06/04/2025 7:[address] [facility] Mucus 1+(A) None Seen 06/04/2025 7:[address] [facility] SQUAMOUS EPITHELIAL 0-2(A) None Seen /HPF 06/04/2025 7:[address] [facility] RENAL EPITHELIAL 0-2(A) None Seen /HPF 06/04/2025 7:[address] [facility] TRANSITIONAL EPITHELIAL CELLS 0-2(A) None Seen /HPF 06/04/2025 7:[address] [facility] HYALINE CASTS 3-5(A) None Seen /LPF 06/04/2025 7:[address] [facility] Specimen Source Urine, Ramirez 06/04/2025 7:[address] [facility] Urine URINE SPECIMEN COLLECTION, CATHETERIZED / Unknown 06/04/2025 6:56 PM EDT 06/04/2025 7:17 PM EDT us Octavio Odell MD URINE ORDERABLES Final Result [facility] [address] [place] [address] * (ABNORMAL) Renal Function Panel (06/04/2025 5:59 PM EDT) Only the most recent of2 resultswithin the time period is included. Glucose 143(H) 82 - 115 mg/dL 06/04/2025 6:[address] [facility] BUN 77.1(H) 9.8 - 20.1 mg/dL 06/04/2025 6:[address] [facility] Creatinine 5.22(H) 0.57 - 1.11 mg/dL 06/04/2025 6:[address] [facility] BUN/Creatinine 15 8 - 20 06/04/2025 6:[address] [facility] eGFR (mL/min/1.73m2) 8(L) >=60 mL/min/1.7 3m2 06/04/2025 6:[address] [facility] Comment:ESTIMATED GFR IS NOT ACCURATE CREATININE CLEARANCE IN PREDICTING GLOMERULAR FILTRATION RATE. ESTIMATED GFR IS NOT APPLICABLE FOR DIALYSIS PATIENTS. Sodium 141 136 - 145 meq/L 06/04/2025 6:[address] [facility] Potassium 5.7(H) 3.4 - 5.1 meq/L 06/04/2025 6:[address] [facility] Chloride 101 98 - 112 meq/L 06/04/2025 6:[address] [facility] CO2 24 22 - 29 meq/L 06/04/2025 6:[address] [facility] Anion Gap 22(H) 4 - 12 06/04/2025 6:[address] [facility] Calcium 9.1 8.4 - 10.2 mg/dL 06/04/2025 6:[address] [facility] Albumin 2.5(L) 3.5 - 5.0 g/dL 06/04/2025 6:[address] [facility] Phosphorus 5.3(H) 2.5 - 4.5 mg/dL 06/04/2025 6:[address] [facility] Osmolality Calc 306.7 mOsm/kg 6:[address] [facility] Blood ENTIRE RIGHT UPPER ARM / Unknown Venipuncture / Unknown 06/04/2025 5:59 PM EDT 06/04/2025 6:[address] [facility] - 06/04/2025 6:37 PM EDT Specimen slightly hemolyzed us Holger Mishra MD LAB BLOOD ORDERABLES Final Resul t [facility] [address] [place] [address], [facility] [phone] * Ultrasound renal limited (06/04/2025 1:28 PM [...] Marisela Luther. Transcribed by Maryam Duran PA-C. Steffen Juan PA-C [facility] US ORDERABLES Final Result * Respiratory Panel (06/04/2025 1:23 PM EDT) ADENOVIRUS Not detected Not detected 06/04/2025 3:[address] [facility] CORONAVIRUS 229E Not detected Not detected 06/04/2025 3:[address] [facility] CORONAVIRUS HKU1 Not detected Not detected 06/04/2025 3:[address] [facility] CORONAVIRUS NL63 Not detected Not detected 06/04/2025 3:[address] [facility] CORONAVIRUS OC43 Not detected Not detected 06/04/2025 3:[address] [facility] SARS-COV2/RT-PCR Not Detected Not Detected 06/04/2025 3:[address] [facility] HUMAN METAPNEUMOVIRUS Not detected Not detected 06/04/2025 3:[address] [facility] HUMAN RHINOVIRUS/ENTEROV IRUS Not detected Not detected 06/04/2025 3:[address] [facility] INFLUENZA A Not detected Not detected 06/04/2025 3:[address] [facility] INFLUENZA B Not detected Not detected 06/04/2025 3:[address] [facility] PARAINFLUENZA VIRUS 1 Not detected Not detected 06/04/2025 3:[address] [facility] PARAINFLUENZA VIRUS 2 Not detected Not detected 06/04/2025 3:[address] [facility] PARAINFLUENZA VIRUS 3 Not detected Not detected 06/04/2025 3:[address] [facility] PARAINFLUENZA VIRUS 4 Not detected Not detected 06/04/2025 3:[address] [facility] RESPIRATORY SYNCYTIAL VIRUS Not detected Not detected 06/04/2025 3:[address] [facility] BORDETELLA PARAPERTUSSIS Not detected Not detected 06/04/2025 3:[address] [facility] BORDETELLA PERTUSSIS Not detected Not detected 06/04/2025 3:[address] [facility] CHLAMYDIA PNEUMONIAE Not detected Not detected 06/04/2025 3:[address] [facility] MYCOPLASMA PNEUMONIAE Not detected Not detected 06/04/2025 3:[address] [facility] Nasopharyngeal NASOPHARYNGEAL SWAB / Unknown 06/04/2025 1:23 PM EDT 06/04/2025 1:36 PM EDT [facility] - 06/04/2025 3:27 PM EDT Testing was performed with RT-PCR methodology using the [employer] Respiratory Panel 2.1 which has FDA De [...] decisions. This sample was tested at the [facility] using the [employer] FilmArray Respiratory Panel. It is FDA cleared and has been verified and approved by the [facility] for clinical use on nasopharyngeal swab specimens. The performance of the FilmArray RP has not been established in individuals who received influenza vaccine. Recent administration of a nasal influenza vaccine may cause false positive results for Influenza A and/or Influenza B. Octavio Odell MD MICROBIOLOGY - GENERAL ORDERA BLES Final Result Performing Organization Address City/[facility]/ZIP Co de Phone Number [facility] [address] [phone] * MRSA Screen (06/04/2025 1:23 PM EDT) [facility] MRSA by PCR [facility] MRSA Not Detected by PCR MRSA Not Detected by PCR DEVICE ID9 06/04/2025 3:[address] [facility] Nasal BOTH ANTERIOR NARES / Unknown 06/04/2025 1:23 PM EDT 06/04/2025 1:36 PM EDT Octavio Odell MD MICROBIOLOGY - GENERAL ORDERA BLES Final Result Performing Organization Address [facility] Co de Phone Number [facility] [address] [phone] * ECHO COMPLETE (DOPPLER / COLOR) W CONTRAST (06/04/2025 1:05 PM EDT) Anatomical Region Laterality Modality Heart Vascular Ultraso und 06/04/2025 12:5 4 PM EDT Narrative 06/04/2025 2:42 PM EDT TRANSTHORACIC ECHOCARDIOGRAPHY REPORT Demographics Patient Name: ULISES VELASCO : 1940 Age: 84 year(s) Corporate ID Number: [id number] Gender Female Senior Regulatory Affairs Specialist: Neena DEL ANGEL Height: 67 inches Referring Physician: DEONTE WILCOX Weight: 191 pounds Interpreting Physician: TAMI SIMON MD BMI: 29.91 kg/m^2 Date of Service: 06/04/2025 Blood Pressure: 127/93 mmHg Room Number: CCU 7 Type of Study: TTE procedure: ECHO COMPLETE (DOPPLER / COLOR) W OR WO CONTRAST. HR: 60 bpmPatient Status: [facility]ine [facility]quate visualization History/Tech Notes: Indication: altered [...] 1.16 m/s E/A ratio: 0.83 m/s Volume [id number] LV length: 7.95 cm CO: 5.84 l/min [...] Valve TR velocity: 2.06 m/s TR gradient: 16.57948 mmHg Estimated RAP: 8 mmHg RVSP: 24.99 [...] TRANSTHORACIC ECHOCARDIOGRAPHY REPORT Demographics Patient Name: ULISES VELASCO : 1940 Age: 84 year(s) Corporate ID Number: [id number] Gender Female Senior Regulatory Affairs Specialist: Neena DEL ANGEL Height: 67 inches Referring [...] 1.16 m/s E/A ratio: 0.83 m/s Volume [id number] LV length: 7.95 cm CO: 5.84 l/min [...] Valve TR velocity: 2.06 m/s TR gradient: 16.10223 mmHg Estimated RAP: 8 mmHg RVSP: 24.99 [...] (8-12mmHg). Pericardium / Pleura No pericardial effusion. Octavio Odell MD CV ECHO ORDERABLES Final Resu lt * [id number] Activity(SENDOUT) (06/04/2025 10:58 AM EDT) Pathologist [facility] [id number] Activity 80 >=61 % 025 10:24 AM EDT [facility] Comment: INTERPRETIVE INFORMATION: [id number] Activity [id number] levels of less than 10 percent may be associated with either inherited (Lynda-Brad Syndrome) or acquired thrombotic thrombocytopenic purpura (TTP). A variety of medical conditions may result in a mild to moderate deficiency of LEMEQM11 activity. Recent plasma exchange therapy may raise the observed FDWSLE80 activity. This test was developed and its performance characteristics determined by [facility]. It has not been cleared or approved by the [place] Food and Drug Administration. This test was performed in a CLIA certified laboratory and is intended for clinical purposes. Performed By: [facility] [address] [place] [address] Supervisor Typesetting: Adolfo Hoffman MD, PhD CLIA Number: [id number] Blood Venipuncture / Unknown 06/04/2025 10:58 AM EDT 06/04/2025 10:58 AM EDT Holger Mishra MD LAB BLOOD ORDERABLES Final Resul t [facility] [address] [place] [address], [facility] [phone] * SHAYAN Reflexive Profile(SENDOUT) (06/04/2025 10:57 AM EDT) Pathologist [facility] Anti-Nuclear Ab (SHAYAN), IgG by NORM None Detected None Detected 06/07/2025 10:36 AM EDT [facility] Comment: No Anti-Nuclear Antibodies (SHAYAN) detected by NORM. The Extractable Nuclear Antigen Antibodies (STEAM SHOVEL OPERATOR, Starks, SSA 52, SSA 60, Scleroderma, Ana Cristina-1 and SSB) and Double Stranded DNA (dsDNA) Antibody, IgG will not be performed. If suspicion of connective tissue disease is strong, and SHAYAN is negative by NORM, consider testing for SHAYAN by IFA ([id number]). INTERPRETIVE INFORMATION: Anti-Nuclear Antibodies (SHAYAN), IgG by NORM Antinuclear Antibodies (SHAYAN), IgG by NORM: SHAYAN specimens are screened using enzyme-linked immunosorbent assay (NORM) methodology. All NORM results reported as Detected are further tested by indirect fluorescent assay (IFA) using HEp-2 substrate with an IgG-specific conjugate. The SHAYAN NORM screen is designed to detect antibodies against dsDNA, histones, SS-A (Ro), SS-B (La), Starks, Starks/STEAM SHOVEL OPERATOR, Scl-70, Ana Cristina-1, centromeric proteins, other antigens extracted from the HEp-2 cell nucleus. SHAYAN NORM assays have been reported to have lower sensitivities than SHAYAN IFA for systemic autoimmune rheumatic diseases (SARD). Negative results do not necessarily rule out SARD. Performed By: [facility] [address] [place] [address] Supervisor Typesetting: Adolfo Hoffman MD, PhD CLIA Number: [id number] Blood Venipuncture / Unknown 06/04/2025 10:57 AM EDT 06/04/2025 10:57 AM EDT Holger Mishra MD LAB BLOOD ORDERABLES Final Resul t [facility] [address] [place] [address], [facility] [phone] * Complement Components 3 and 4(SENDOUT) (06/04/2025 10:53 AM EDT) Complement Component 3 109 90 - 180 mg/dL 06/06/2025 2:24 AM EDT [facility] Comment: REFERENCE INTERVAL: Complement Component 3 Access complete set of age- and/or gender-specific reference intervals for this test in the [facility] Test Directory ([employer]). Complement Component 4 30 10 - 40 mg/dL 06/06/2025 2:24 AM EDT [facility] [employer] Comment: REFERENCE INTERVAL: Complement Component 4 Access complete set of age- and/or gender-specific reference intervals for this test in the [facility] Test Directory ([employer]less). Performed By: [employer] [address] [place] [address] Supervisor Typesetting: Adolfo Hoffman MD, PhD CLIA Number: [id number] Blood Venipuncture / Unknown 06/04/2025 10:53 AM EDT 06/04/2025 10:53 AM EDT us Holger Mishra MD LAB BLOOD ORDERABLES Final Resul t Performing Organization Address [facility] [place] [address], [facility] [phone] * Procalcitonin (06/04/2025 5:02 AM EDT) Procalcitonin 0.23 See Comment ng/mL 06/04/2025 10:[address] [facility] Comment: Sepsis comment <0.5 Antibiotics Discouraged [...] AM EDT 06/04/2025 5:[address] [facility] - 06/04/2025 10:38 AM EDT Specimen slightly hemolyzed us Octavio Odell MD LAB BLOOD ORDERABLES Final Re sult [facility] [address] [phone] * (ABNORMAL) PROBNP (06/04/2025 5:02 AM EDT) ProBNP (pg/mL) 5,625(H) 16 - 956 pg/mL 06/04/2025 10:[address] [facility] Blood Venipuncture / Unknown 06/04/2025 5:02 AM EDT 06/04/2025 5:[address] [facility] - 06/04/2025 10:38 AM EDT As of January 14, 2025: NT-ProBNP is a new test on our [employer] Immunoassay analyzer. Please review new age and gender specific reference ranges. us Octavio Odell MD LAB BLOOD ORDERABLES Final Re sult [facility] [address] [phone] * (ABNORMAL) Iron and TIBC (06/04/2025 5:02 AM EDT) Pathologist [facility] Iron 101 50 - 170 ug/dL 06/04/2025 6:[address] [facility] TIBC 244(L) 250 - 435 ug/dL 06/04/2025 6:[address] [facility] % Saturation 41 % 06/04/2025 6:[address] [facility] UIBC 143 06/04/2025 6:[address] [facility] Blood Venipuncture / Unknown 06/04/2025 5:02 AM EDT 06/04/2025 5:[address] [facility] - 06/04/2025 6:16 AM EDT Specimen slightly hemolyzed us Sima Mancia MD LAB BLOOD ORDERABLES Final Re sult [facility] [address] [phone] * (ABNORMAL) Lactate dehydrogenase (LDH) (06/04/2025 5:02 AM EDT) LDH 431(H) 125 - 220 U/L 06/04/2025 9:[address] [facility] Blood Venipuncture / Unknown 06/04/2025 5:02 AM EDT 06/04/2025 5:02 AM EDT [facility] - 06/04/2025 9:08 AM EDT Specimen slightly hemolyzed us Holger Mishra MD LAB BLOOD ORDERABLES Final Resul t [facility] [address] [phone] * Ferritin (06/04/2025 5:02 AM EDT) Ferritin 162.66 4.63 - 204.00 ng/mL 06/04/2025 6:[address] [facility] Blood Venipuncture / Unknown 06/04/2025 5:02 AM EDT 06/04/2025 5:02 AM EDT [facility] - 06/04/2025 6:16 AM EDT Specimen slightly hemolyzed us Sima Mancia MD LAB BLOOD ORDERABLES Final Re sult [facility] [address] [phone] * (ABNORMAL) Vitamin B12 (06/04/2025 5:02 AM EDT) Vitamin B12 >2,000(H) 213 - 816 pg/mL 06/04/2025 6:[address] [facility] Blood Venipuncture / Unknown 06/04/2025 5:02 AM EDT 06/04/2025 5:02 AM EDT [facility] - 06/04/2025 6:19 AM EDT Specimen slightly hemolyzed us Sima Mancia MD LAB BLOOD ORDERABLES Final Re sult [facility] [address] [place] [id number] [phone] * (ABNORMAL) Comprehensive metabolic panel (06/04/2025 5:02 AM EDT) Sodium 145 136 - 145 meq/L 06/04/2025 6:[address] [facility] Potassium 6.5(HH) 3.4 - 5.1 meq/L 06/04/2025 6:[address] [facility] Chloride 110 98 - 112 meq/L 06/04/2025 6:[address] [facility] CO2 17(L) 22 - 29 meq/L 06/04/2025 6:[address] [facility] Calcium 8.7 8.4 - 10.2 mg/dL 06/04/2025 6:[address] [facility] Glucose 116(H) 82 - 115 mg/dL 06/04/2025 6:[address] [facility] BUN 79.5(H) 9.8 - 20.1 mg/dL 06/04/2025 6:[address] [facility] Creatinine 5.35(H) 0.57 - 1.11 mg/dL 06/04/2025 6:18 AM [facility] BUN/Creatinine 15 8 - 20 06/04/2025 6:18 AM [facility] eGFR (mL/min/1.73m2) 7(L) >=60 mL/min/1. 73m2 06/04/2025 6:18 AM [facility] Comment:ESTIMATED GFR IS NOT ACCURATE CREATININE CLEARANCE IN PREDICTING GLOMERULAR FILTRATION RATE. ESTIMATED GFR IS NOT APPLICABLE FOR DIALYSIS PATIENTS. Albumin 2.5(L) 3.5 - 5.0 g/dL 06/04/2025 6:[address] [facility] Alkaline Phosphatase 63 40 - 150 U/L 06/04/2025 6:[address] [facility] ALT 10 <=34 U/L 06/04/2025 6:[address] [facility] Comment: ALT2 reagent used for testing does not contain P5P supplementation and therefore may miss ALT elevations in patients with B6 deficiency. This population may be as high as 10% in the [place], with risk factors including malabsorption, drug interactions, and alcoholic hepatitis. AST 36(H) 11 - 34 U/L 06/04/2025 6:[address] [facility] Comment: AST2 reagent used for testing does not contain P5P supplementation and therefore may miss AST elevations in patients with B6 deficiency. This population may be as high as 10% in the [place], with risk factors including malabsorption, drug interactions, and alcoholic hepatitis. Total Bilirubin 0.5 0.2 - 1.2 mg/dL 06/04/2025 6:[address] [facility] Protein, Total 6.3(L) 6.4 - 8.3 g/dL 06/04/2025 6:[address] [facility] Globulin 3.8 2.5 - 4.1 g/dL 06/04/2025 6:[address] [facility] Anion Gap 25(H) 4 - 12 06/04/2025 6:[address] [facility] A/G Ratio 0.7 0.7 - 1.9 06/04/2025 6:[address] [facility] Osmolality Calc 313.5 mOsm/kg 6:[address] [facility] Blood Venipuncture / Unknown 06/04/2025 5:02 AM EDT 06/04/2025 5:[address] [facility] - 06/04/2025 6:18 AM EDT Specimen slightly hemolyzed us Steffen Juan PA-C LAB BLOOD ORDERABLES Final Res ult [facility] [address] [phone] * Strep pneumoniae urine antigen (06/03/2025 11:50 PM EDT) Strep pneumoniae Antigen Presumptive negative for pneumococcal pneumonia - see comment Presumptive negative for pneumococcal pneumonia- see comment 06/04/2025 12:[address] [facility] Urine URINE / Unknown 06/03/2025 1 1:50 PM EDT 06/03/2025 11:[address] [facility] - 06/04/2025 12:12 AM EDT A presumptive negative result suggests no current or recent pneumococcal infection. Infection due to S. pneumoniae cannot be ruled out since the antigen present in the specimen may be below the detection limit of the test. us Sima Mancia MD MICROBIOLOGY - GENERAL ORDERA BLES Final Result Performing Organization Address City/[facility]/ZIP Co de Phone Number [facility] [address] [phone] * Urea Nitrogen, random urine (06/03/2025 11:50 PM EDT) Urea Nitrogen, Ur 328 mg/dL 06/04/2025 12:[address] [facility] Comment: Reference Range not established Reference range not established Urine 06/03/2025 11:5 0 PM EDT 06/03/2025 11:50 PM EDT us Sima Mancia MD URINE ORDERABLES Final Result Performing Organization Address City/[facility]/ZIP Co de Phone Number [facility] [address] [phone] * Legionella antigen, urine (06/03/2025 11:50 PM EDT) Legionella Urine Antigen Presumptive negative for L. pneumophila serogroup 1 antigen in urine- see comment Presumptive negative for L. pneumophila serogroup 1 antigen in urine- see comment 06/04/2025 12:[address] [facility] Urine 06/03/2025 11:5 0 PM EDT 06/03/2025 11:[address] [facility] - 06/04/2025 12:12 AM EDT Presumptive [...] below the detection limit of the test. Sima Mancia MD URINE ORDERABLES Final Result Performing Organization Address [facility] Co de Phone Number [facility] [address] [phone] * Sodium, random urine (06/03/2025 11:50 PM EDT) Sodium Urine 109 See Comment meq/L 06/04/2025 12:[address] [facility] Comment:Reference Range not established Urine 06/03/2025 11:5 0 PM EDT 06/03/2025 11:50 PM EDT Steffen Juan PA-C URINE ORDERABLES Final Result Performing Organization Address [facility] Co de Phone Number [facility] [address] [phone] * (ABNORMAL) Protein, random urine (06/03/2025 11:50 PM EDT) Protein, Urine 15(H) 1 - 14 mg/dL 06/04/2025 12:[address] [facility] Comment:No normal reference range established Urine 06/03/2025 11:5 0 PM EDT 06/03/2025 11:50 PM EDT Steffen MIMS-C URINE ORDERABLES Final Result Performing Organization Address [facility] Co de Phone Number [facility] [address] [phone] * (ABNORMAL) Creatinine, random urine (06/03/2025 11:50 PM EDT) Creatinine, Ur 39.00(L) 47.00 - 110.00 mg/dL 06/04/2025 12:[address] [facility] Urine 06/03/2025 11:5 0 PM EDT 06/03/2025 11:50 PM EDT Steffen MIMS-Halle URINE ORDERABLES Final Result Performing Organization Address City/[facility]/ZIP Co de Phone Number [facility] [address] [phone] * Chloride, random urine (06/03/2025 11:50 PM EDT) ChlorideUr 109 See Comment mmol/L 06/04/2025 12:[address] [facility] Comment:Reference range not established Urine 06/03/2025 11:5 0 PM EDT 06/03/2025 11:50 PM EDT Sima Mancia MD URINE ORDERABLES Final Result Performing Organization Address [facility] Co de Phone Number [facility] [address] [phone] * Phosphorus (06/03/2025 11:43 PM EDT) Phosphorus 4.4 2.5 - 4.5 mg/dL 06/04/2025 12:[address] [facility] Blood Venipuncture / Unknown 06/03/2025 11:43 PM EDT 06/03/2025 11:47 PM EDT Steffen Juan PA-C LAB BLOOD ORDERABLES Final Res ult Performing Organization Address [facility]/ZIP Co de Phone Number [facility] [address] [phone] * Creatine Kinase (CK) (06/03/2025 11:43 PM EDT) Total CK 62 29 - 168 U/L 06/04/2025 12:[address] [facility] Blood Venipuncture / Unknown 06/03/2025 11:43 PM EDT 06/03/2025 11:47 PM EDT Steffen Neri Juan PA-C LAB BLOOD ORDERABLES Final Res ult Performing Organization Address City/[facility]/ZIP Co de Phone Number [facility] [address] [phone] * (ABNORMAL) CBC Scan (06/03/2025 11:42 PM EDT) Platelet Estimate Decreased( A) Adequate 06/04/2025 12:[address] [facility] RBC Morphology Normal Normal 06/04/2025 12:[address] [facility] Blood Venipuncture / Unknown 06/03/2025 11:42 PM EDT 06/03/2025 11:47 PM EDT Estadeboda PA-C LAB BLOOD ORDERABLES Final Res ult Performing Organization Address [facility]/ZIP Co de Phone Number [facility] [address] [phone] * (ABNORMAL) Lactic Acid with reflex (SJ) (06/03/2025 11:42 PM EDT) Lactic Acid Level (mmol/L) 2.4(HH) 0.5 - 2.2 mmol/L 06/04/2025 12:[address] [facility] Blood Venipuncture / Unknown 06/03/2025 11:42 PM EDT 06/03/2025 11:47 PM EDT Estadeboda PA-C LAB BLOOD ORDERABLES Final Res ult Performing Organization Address City/[facility]/ZIP Co de Phone Number [facility] [address] [phone] * EKG-SCANNED (06/03/2025) Only the most recent of2 resultswithin the time period is included. Narrative 06/03/2025 Ordered by an unspecified provider. 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
--- OUTSIDE RECORDS SUMMARY | 2025-07-19 07:27 | XMS_ITS | Clinical Summary ---
Author Organization [employer] ([place], [place], [place], [place], [place]) Address [address] [place] [address] Care Team Providers [employer] Job Titles Name Role Phone Allan Adamson MD Primary Care Provider [phone] Allergies Active Allergy Reactions Criticality Noted Date [...] lotn Apply 1 Application topically daily. Active yxcgiwtu-ymr-YJ -lycopen-lutein (CertaVite Senior) 0.4 mg-300 mcg- 250 [...] (20 mg total) by mouth daily. Active metoprolol succinate (TOPROL-XL) 25 MG 24 hr tablet Take 0.5 tablets (12.5 mg total) by mouth daily for 30 days. 15 tablet 5 025 amLODIPine (NORVASC) 5 MG tablet Take 1 tablet (5 mg total) by mouth daily for 30 days. 30 tablet 5 025 Active Problems Problem Noted Date Diagnosed Date Acute renal failure (ARF) 06/03/2025 Encounters Date Type Department Care Team Description 06/04/2025 Travel 06/03/2025 10:40 PM EDT - 06/11/2025 5:36 PM EDT Hospital Encounter [address] Medical Telemetry Unit 1 [place] [address] Sima Mancia MD Kredan, Tawfik, MD Lewis, Paige, MD Acute renal failure, unspecified acute renal failure type (HCC) (Primary Dx) Discharge Disposition: [facility]pc Facility from Last 3 Months Social History Tobacco Use Types Packs/Day Years [...] your living situation today? I have a [facility] place to live 06/04/2025 Think about [...] Do you speak a language other than [facility]? No 06/04/2025 Do you want help [...] 06/04/2025 1:00 AM EDT Plan of Treatment Health Maintenance Due Date Last Done Comments Depression Screening (12+) 1952 Respiratory Syncytial Virus (RSV) Adult or (1 - 1-dose 75+ series) 2013 DTAP/TDAP/TD VACCINES (2 - T d or Tdap) 10/30/2023 10/29/2013 Falls Risk Screening 08/26/2024 COVID-19 VACCINE (2023-2 5 season) 2025 06/09/2024, 06/05/2023, 06/06/2022, Additional history exists Influenza Vaccine (#1) 2025 4, 05/17/2023, 05/02/2022, Additional history exists Medicare IPPE (Welcome to Medicare) [id number] 05/26/2025 Tobacco Cessation Counseling and Screening (12+) 06/04/2026 06/04/2025 Shingles Vaccine (Zoster) Completed 03/18/2019, Pneumococcal 50+ years Completed 2, 06/12/2016, 11/01/2014 Procedures Procedure Name Priority Date/Time Associated Diagnosis [...] POC Routine 06/04/2025 11:3 7 AM EDT [id number] ACTIVITY(SENDOUT) Routine 06/04/2025 10:58 AM EDT RENAL [...] METABOLIC PANEL STAT 06/03/2025 11:43 PM EDT [facility] CBC SCAN Routine 06/03/2025 11:42 PM EDT LACTIC ACID WITH REFLEX STAT 06/03/2025 11:42 PM EDT CBC W/ AUTO DIFF STAT 06/03/2025 11:4 2 PM EDT EKG-SCANNED 06/03/2025 EKG-SCANNED 06/03/2025 from Last 3 Months Results * Glucose, Nova Meter (06/11/2025 3:46 PM EDT) Only the most recent of32 resultswithin the time period is included. [facility] POC-GLUCOSE 86 70 - 110 mg/dL 06/11/2025 3:55 PM EDT [facility] Comment:In the event of poor peripheral blood flow, venous or arterial blood should be used due to the potential of erroneous results. Dish Stacker [phone] 06/11/2025 3:55 PM EDT [facility] Blood WHOLE BLOOD / Unknown 06/11/2025 3:46 PM EDT 06/11/2025 3:55 PM EDT Narrative [facility] - 06/11/2025 3:55 PM EDT Notified RN/MD us Charity Steiner MD POINT OF CARE TEST ORDERABLES Fi nal Result [facility] [address] [phone] * (ABNORMAL) CBC with automated diff (06/11/2025 4:35 AM EDT) Only the most recent of9 resultswithin the time period is included. WBC 6.0 4.0 - 10.0 K/ L 06/11/2025 5:07 AM EDT [facility] RBC 3.11(L) 3.93 - 5.22 M/ L 06/11/2025 5:07 AM EDT [facility] Hemoglobin 9.4(L) 11.2 - 15.7 GM/DL 06/11/2025 5:07 AM EDT [facility] Hematocrit 28.5(L) 34.1 - 44.9 % 06/11/2025 5:07 AM EDT [facility] MCV 92 79 - 95 fL 06/11/2025 5:07 AM EDT [facility] MCH 30.2 25.6 - 32.2 pg 06/11/2025 5:07 AM EDT [facility] MCHC 33.0 32.2 - 35.5 GM/DL 06/11/2025 5:07 AM EDT [facility] RDW 16.9(H) 11.7 - 14.4 % 06/11/2025 5:07 AM EDT [facility] Platelets 246 140 - 375 K/CU MM 06/11/2025 5:07 AM EDT [facility] MPV 11.7 9.4 - 12.3 fL 06/11/2025 5:07 AM EDT [facility] % Neutros 60 34 - 71 % 06/11/2025 5:07 AM EDT [facility] % Lymphs 20 19 - 52 % 06/11/2025 5:07 AM EDT [facility] % Monos 13 5 - 13 % 06/11/2025 5:07 AM EDT [facility] % Eos 3.7 1.0 - 6.0 % 06/11/2025 5:07 AM EDT [facility] % Baso 1 0 - 1 % 06/11/2025 5:07 AM EDT [facility] NRBC Absolute <0.01 0 - 0.012 K/ul 06/11/2025 5:07 AM EDT [facility] # Neutros 3.59 1.56 - 6.13 K/ L 06/11/2025 5:07 AM EDT [facility] # Lymphs 1.18 1.18 - 3.74 K/ L 06/11/2025 5:07 AM EDT [facility] # Monos 0.78 0.24 - 0.86 K/ L 06/11/2025 5:07 AM EDT [facility] # Eos 0.22 0.04 - 0.36 K/ L 06/11/2025 5:07 AM EDT [facility] # Baso 0.04 0.01 - 0.08 K/ L 06/11/2025 5:07 AM EDT [facility] % Imm Grans 3.50(H) 0.01 - 0.43 % 06/11/2025 5:07 AM EDT [facility] # IG 0.21(H) 0.00 - 0.03 K/uL 06/11/2025 5:07 AM EDT [facility] Blood Venipuncture / Unknown 06/11/2025 4:35 AM EDT 06/11/2025 4:54 AM EDT Narrative [facility] - 06/11/2025 5:07 AM EDT When [...] MD LAB BLOOD ORDERABLES Final Resul t [facility] [address] [phone] * (ABNORMAL) Basic Metabolic Panel (06/11/2025 4:35 AM EDT) Only the most recent of9 resultswithin the time period is included. Sodium 142 136 - 145 meq/L 06/11/2025 5:24 AM EDT [facility] Potassium 4.2 3.4 - 5.1 meq/L 06/11/2025 5:24 AM EDT [facility] CO2 28 22 - 29 meq/L 06/11/2025 5:24 AM EDT [facility] Chloride 102 98 - 112 meq/L 06/11/2025 5:24 AM EDT [facility] Glucose 82 82 - 115 mg/dL 06/11/2025 5:24 AM EDT [facility] BUN 54.3(H) 9.8 - 20.1 mg/dL 06/11/2025 5:24 AM EDT [facility] Creatinine 2.40(H) 0.50 - 1.20 mg/dL 06/11/2025 5:24 AM EDT [facility] BUN/Creatinine 23(H) 8 - 20 06/11/2025 5:24 AM EDT [facility] Calcium 9.2 8.4 - 10.2 mg/dL 06/11/2025 5:24 AM EDT [facility] Anion Gap 16(H) 4 - 12 06/11/2025 5:24 AM EDT [facility] eGFR (mL/min/1.73m2) 19(L) >=60 mL/min/1.7 3m2 06/11/2025 5:24 AM EDT [facility] Comment:ESTIMATED GFR IS NOT ACCURATE CREATININE CLEARANCE IN PREDICTING GLOMERULAR FILTRATION RATE. ESTIMATED GFR IS NOT APPLICABLE FOR DIALYSIS PATIENTS. Osmolality Calc 297.1 mOsm/kg 5:24 AM EDT [facility] Blood Venipuncture / Unknown 06/11/2025 4:35 AM EDT 06/11/2025 4:52 AM EDT us Charity Steiner MD LAB BLOOD ORDERABLES Final Resul t Performing Organization Address [facility] de Phone Number [facility] [address] [phone] * Potassium (06/10/2025 11:08 AM EDT) [facility] Potassium 3.9 3.4 - 5.1 meq/L 06/10/2025 1:48 PM EDT [facility] Blood Venipuncture / Unknown 06/10/2025 11:08 AM EDT 06/10/2025 11:11 AM EDT us Charity Steiner MD LAB BLOOD ORDERABLES Final Resul t Performing Organization Address [facility] Phone Number [facility] [address] [phone] * ECG 12 lead (06/10/2025 9:57 AM EDT) Only the most recent of8 resultswithin the time period is included. VENTRICULAR RATE EKG/MIN 56 BPM GE MUSE ATRIAL RATE (MCT) 56 BPM GE MUSE MS Interval 228 ms GE MUSE QRS-INTERVAL (MSEC) 126 ms GE MUSE QT Interval 450 ms GE MUSE QTC Interval 434 ms GE MUSE P [place] 8 degrees GE MUSE R AXIS (MCT) 25 degrees GE MUSE T Wave [place] 0 degrees GE MUSE [place] Diagnosis Sinus bradycardia with 1st degree AV [...] ECG ORDERABLES Final Result Performing Organization Address City/[facility] Co de Phone Number GE MUSE * Magnesium (06/10/2025 3:43 AM EDT) Only the most recent of6 resultswithin the time period is included. Magnesium 1.6 1.6 - 2.6 mg/dL 06/10/2025 4:21 AM EDT [facility] Blood Venipuncture / Unknown 06/10/2025 3:43 AM EDT 06/10/2025 3:56 AM EDT us Charity Steiner MD LAB BLOOD ORDERABLES Final Resul t Performing Organization Address [facility] Co de Phone Number [facility] [address] [phone] * XR KUB PORTABLE (06/08/2025 10:23 PM [...] interpreted, and dictated by Keyon Levy M.D. Lukas Mckenzie ERIC IMG DIAGNOSTIC IMAGING ORDERAB LES Final Result [...] by Dr. Marisela Luther. Transcribed by Estela Bueon PA-C. Bela Abel MD IMG DIAGNOSTIC IMAGING [...] by Estela Bueno PA-C. Octavio Odell MD IM CT ORDERABLES Final Resul t * (ABNORMAL) Urinalysis w/Microscopic (06/04/2025 6:56 PM EDT) Color, UA Light Yellow 06/04/2025 7:33 PM EDT [facility] Clarity, UA Turbid(A) Clear 06/04/2025 7:33 PM EDT [facility] Specific [place], UA 1.013 1.005 - 1.030 06/04/2025 7:33 PM EDT [facility] pH, UA 5.5(L) 6.0 - 8.0 06/04/2025 7:33 PM EDT [facility] Leukocytes, UA 250 Danielle/uL(A) Negative 06/04/2025 7:33 PM EDT [facility] Nitrite, UA Negative Negative 06/04/2025 7:33 PM EDT [facility] Protein, UA Trace(A) Negative 06/04/2025 7:33 PM EDT [facility] Glucose, UA 2+(A) Normal 06/04/2025 7:33 PM EDT [facility] Ketones, UA Negative Negative 06/04/2025 7:33 PM EDT [facility] Urobilinogen, UA Normal Normal 06/04/20 7:33 PM EDT [facility] Bilirubin, UA Negative Negative 06/04/2025 7:33 PM EDT [facility] Blood, UA 3+(A) Negative 06/04/2025 7:33 PM EDT [facility] RBC, UA 51-100(A) None Seen /HPF 06/04/2025 7:33 PM EDT [facility] WBC, UA 21-50(A) None Seen /HPF 06/04/2025 7:33 PM EDT [facility] Bacteria, UA 1+(A) None Seen, Trace 06/04/2025 7:33 PM EDT [facility] Mucus 1+(A) None Seen 06/04/2025 7:33 PM EDT [facility] SQUAMOUS EPITHELIAL 0-2(A) None Seen /HPF 06/04/2025 7:33 PM EDT [facility] RENAL EPITHELIAL 0-2(A) None Seen /HPF 06/04/2025 7:33 PM EDT [facility] TRANSITIONAL EPITHELIAL CELLS 0-2(A) None Seen /HPF 06/04/2025 7:33 PM EDT [facility] HYALINE CASTS 3-5(A) None Seen /LPF 06/04/2025 7:33 PM EDT [facility] Specimen Source Urine, Ramirez 06/04/2025 7:33 PM EDT [facility] Urine URINE SPECIMEN COLLECTION, CATHETERIZED / Unknown 06/04/2025 6:56 PM EDT 06/04/2025 7:17 PM EDT us Octavio Odell MD URINE ORDERABLES Final Result [facility] [address] [phone] * (ABNORMAL) Renal Function Panel (06/04/2025 5:59 PM EDT) Only the most recent of2 resultswithin the time period is included. Glucose 143(H) 82 - 115 mg/dL 06/04/2025 6:37 PM EDT [facility] BUN 77.1(H) 9.8 - 20.1 mg/dL 06/04/2025 6:37 PM EDT [facility] Creatinine 5.22(H) 0.57 - 1.11 mg/dL 06/04/2025 6:37 PM EDT [facility] BUN/Creatinine 15 8 - 20 06/04/2025 6:37 PM EDT [facility] eGFR (mL/min/1.73m2) 8(L) >=60 mL/min/1.7 3m2 06/04/2025 6:37 PM EDT [facility] Comment:ESTIMATED GFR IS NOT ACCURATE CREATININE CLEARANCE IN PREDICTING GLOMERULAR FILTRATION RATE. ESTIMATED GFR IS NOT APPLICABLE FOR DIALYSIS PATIENTS. Sodium 141 136 - 145 meq/L 06/04/2025 6:37 PM EDT [facility] Potassium 5.7(H) 3.4 - 5.1 meq/L 06/04/2025 6:37 PM EDT [facility] Chloride 101 98 - 112 meq/L 06/04/2025 6:37 PM EDT [facility] CO2 24 22 - 29 meq/L 06/04/2025 6:37 PM EDT [facility] Anion Gap 22(H) 4 - 12 06/04/2025 6:37 PM EDT [facility] Calcium 9.1 8.4 - 10.2 mg/dL 06/04/2025 6:37 PM EDT [facility] Albumin 2.5(L) 3.5 - 5.0 g/dL 06/04/2025 6:37 PM EDT [facility] Phosphorus 5.3(H) 2.5 - 4.5 mg/dL 06/04/2025 6:37 PM EDT [facility] Osmolality Calc 306.7 mOsm/kg 6:37 PM EDT [facility] Blood ENTIRE RIGHT UPPER ARM / Unknown Venipuncture / Unknown 06/04/2025 5:59 PM EDT 06/04/2025 6:06 PM EDT Narrative [facility] - 06/04/2025 6:37 PM EDT Specimen slightly hemolyzed us Holger Mishra MD LAB BLOOD ORDERABLES Final Resul t [facility] [address] [phone] * Ultrasound renal limited (06/04/2025 1:28 PM [...] by Maryam Duran PA-C. Steffen Juan PA-C [facility] [place] ORDERABLES Final Result * Respiratory Panel (06/04/2025 1:23 PM EDT) ADENOVIRUS Not detected Not detected 06/04/2025 3:27 PM EDT [facility] CORONAVIRUS 229E Not detected Not detected 06/04/2025 3:27 PM EDT [facility] CORONAVIRUS HKU1 Not detected Not detected 06/04/2025 3:27 PM EDT [facility] CORONAVIRUS NL63 Not detected Not detected 06/04/2025 3:27 PM EDT [facility] CORONAVIRUS OC43 Not detected Not detected 06/04/2025 3:27 PM EDT [facility] SARS-COV2/RT-PCR Not Detected Not Detected 06/04/2025 3:27 PM EDT [facility] HUMAN METAPNEUMOVIRUS Not detected Not detected 06/04/2025 3:27 PM EDT [facility] HUMAN RHINOVIRUS/ENTEROV IRUS Not detected Not detected 06/04/2025 3:27 PM EDT [facility] INFLUENZA A Not detected Not detected 06/04/2025 3:27 PM EDT [facility] INFLUENZA B Not detected Not detected 06/04/2025 3:27 PM EDT [facility] PARAINFLUENZA VIRUS 1 Not detected Not detected 06/04/2025 3:27 PM EDT [facility] PARAINFLUENZA VIRUS 2 Not detected Not detected 06/04/2025 3:27 PM EDT [facility] PARAINFLUENZA VIRUS 3 Not detected Not detected 06/04/2025 3:27 PM EDT [facility] PARAINFLUENZA VIRUS 4 Not detected Not detected 06/04/2025 3:27 PM EDT [facility] RESPIRATORY SYNCYTIAL VIRUS Not detected Not detected 06/04/2025 3:27 PM EDT [facility] BORDETELLA PARAPERTUSSIS Not detected Not detected 06/04/2025 3:27 PM EDT [facility] BORDETELLA PERTUSSIS Not detected Not detected 06/04/2025 3:27 PM EDT [facility] CHLAMYDIA PNEUMONIAE Not detected Not detected 06/04/2025 3:27 PM EDT [facility] MYCOPLASMA PNEUMONIAE Not detected Not detected 06/04/2025 3:27 PM EDT [facility] Nasopharyngeal NASOPHARYNGEAL SWAB / Unknown 06/04/2025 1:23 PM EDT 06/04/2025 1:36 PM EDT Narrative [facility] - 06/04/2025 3:27 PM EDT Testing was performed with RT-PCR methodology using the [employer] Respiratory Panel 2.1 which has FDA De [...] decisions. This sample was tested at the [facility] using the MedalliaArray Respiratory Panel. It is FDA cleared and has been verified and approved by the [facility] for clinical use on nasopharyngeal swab specimens. The performance of the FilmArray RP has not been established in individuals who received influenza vaccine. Recent administration of a nasal influenza vaccine may cause false positive results for Influenza A and/or Influenza B. us Octavio Odell MD MICROBIOLOGY - GENERAL ORDERA BLES Final Result [facility] [address] [phone] * MRSA Screen (06/04/2025 1:23 PM EDT) Pathologist [facility] MRSA by PCR [facility] MRSA Not Detected by PCR MRSA Not Detected by PCR DEVICE ID9 06/04/2025 3:27 PM EDT [facility] Nasal BOTH ANTERIOR NARES / Unknown 06/04/2025 1:23 PM EDT 06/04/2025 1:36 PM EDT Octavio Odell MD MICROBIOLOGY - GENERAL ORDERA BLES Final Result [facility] [address] [phone] * ECHO COMPLETE (DOPPLER / COLOR) W CONTRAST (06/04/2025 1:05 PM EDT) Anatomical Region Laterality Modality Heart Vascular Ultraso und 06/04/2025 12:5 4 PM EDT Narrative 06/04/2025 2:42 PM EDT TRANSTHORACIC ECHOCARDIOGRAPHY REPORT Demographics Patient Name: ULISES VELASCO : 1940 Age: 84 year(s) Corporate ID Number: [id number] Gender Female 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 HR: 60 bpmPatient Status: Routine [facility] History/Tech Notes: Indication: [...] 1.16 m/s E/A ratio: 0.83 m/s Volume xdcxxmswe34.89 LV length: 7.95 cm CO: 5.84 l/min ml CI: 2.95 l/min*m^2 Volume jhivvxwi60.77 ml LVOT diameter: 2.11 cm Normal sized [...] Valve TR velocity: 2.06 m/s TR gradient: 16.80898 mmHg Estimated RAP: 8 mmHg RVSP: 24.99 [...] 1940 Age: 84 year(s) Corporate ID Number: [id number] Gender Female Cap Jewel Plate Assembler: Neena DEL ANGEL Height: 67 inches Referring [...] 1.16 m/s E/A ratio: 0.83 m/s Volume zpruxskqq73.89 LV length: 7.95 cm CO: 5.84 l/min ml CI: 2.95 l/min*m^2 Volume isxjjsgd31.77 ml LVOT diameter: 2.11 cm Normal sized [...] Valve TR velocity: 2.06 m/s TR gradient: 16.80237 mmHg Estimated RAP: 8 mmHg RVSP: 24.99 [...] CV ECHO ORDERABLES Final Resu lt * [id number] Activity(SENDOUT) (06/04/2025 10:58 AM EDT) [facility] [id number] Activity 80 >=61 % 025 10:24 AM EDT [facility] Comment: INTERPRETIVE INFORMATION: [id number] Activity [id number] levels of less than 10 percent may be associated with either inherited (Lynda-Brad Syndrome) or acquired thrombotic thrombocytopenic purpura (TTP). A variety of medical conditions may result in a mild to moderate deficiency of VMPBJK23 activity. Recent plasma exchange therapy may raise the observed PJQVUG67 activity. This test was developed and its performance characteristics determined by [employer] [facility]. It has not been cleared or approved by the [place] Food and Drug Administration. This test was performed in a CLIA certified laboratory and is intended for clinical purposes. Performed By: [facility] [facility] [address] [place] [id number] Executive Consultant: Adolfo Hoffman MD, PhD CLIA Number: [id number] Blood Venipuncture / Unknown 06/04/2025 10:58 AM EDT 06/04/2025 10:58 AM EDT Holger Mishra MD LAB BLOOD ORDERABLES Final Resul t [facility] [employer] [address] [place], [place] [id number], [facility] [phone] * SHAYAN Reflexive Profile(SENDOUT) (06/04/2025 10:57 AM EDT) Anti-Nuclear Ab (SHAYAN), IgG by NORM None Detected None Detected 06/07/2025 10:36 AM EDT [facility] Comment: No Anti-Nuclear Antibodies (SHAYAN) detected by NORM. The Extractable Nuclear Antigen Antibodies (ASSISTANT DIRECTOR, Starks, SSA 52, SSA 60, Scleroderma, Ana Cristina-1 and SSB) and Double Stranded DNA (dsDNA) Antibody, IgG will not be performed. If suspicion of connective tissue disease is strong, and SHAYAN is negative by NORM, consider testing for SHAYAN by IFA ([id number]). INTERPRETIVE INFORMATION: Anti-Nuclear Antibodies (SHAYAN), IgG by NORM Antinuclear Antibodies (SHAYAN), IgG by NORM: SHAYAN specimens are screened using enzyme-linked immunosorbent assay (NORM) methodology. All NOMR results reported as Detected are further tested by indirect fluorescent assay (IFA) using HEp-2 substrate with an IgG-specific conjugate. The SHAYAN NORM screen is designed to detect antibodies against dsDNA, histones, SS-A (Ro), SS-B (La), Starks, Starks/ASSISTANT DIRECTOR, Scl-70, Ana Cristina-1, centromeric proteins, other antigens extracted from the HEp-2 cell nucleus. SHAYAN NORM assays have been reported to have lower sensitivities than SHAYAN IFA for systemic autoimmune rheumatic diseases (SARD). Negative results do not necessarily rule out SARD. Performed By: [facility] [address] [place] [address] Executive Consultant: Adolfo Hoffman MD, PhD CLIA Number: [id number] Blood Venipuncture / Unknown 06/04/2025 10:57 AM EDT 06/04/2025 10:57 AM EDT Holger Mishra MD LAB BLOOD ORDERABLES Final Resul t Performing Organization Address [facility] Co de Phone Number [address] [phone] * Complement Components 3 and 4(SENDOUT) (06/04/2025 10:53 AM EDT) Complement Component 3 109 90 - 180 mg/dL 06/06/2025 2:24 AM EDT TNYour Policy Manager Comment: REFERENCE INTERVAL: Complement Component 3 Access complete set of age- and/or gender-specific reference intervals for this test in the [facility] ([employer] Complement Component 4 30 10 - 40 mg/dL 06/06/2025 2:24 AM EDT [facility] Comment: REFERENCE INTERVAL: Complement Component 4 Access complete set of age- and/or gender-specific reference intervals for this test in the [facility] ([employer] Performed By: [employer] [address] [place] [address] Executive Consultant: Adolfo Hoffman MD, PhD CLIA Number: [id number] Blood Venipuncture / Unknown 06/04/2025 10:53 AM EDT 06/04/2025 10:53 AM EDT Holger Mishra MD LAB BLOOD ORDERABLES Final Resul t Performing Organization Address City/[facility] Co de Phone Number [address] [phone] * Procalcitonin (06/04/2025 5:02 AM EDT) Procalcitonin 0.23 See Comment ng/mL 06/04/2025 10:38 AM EDT [facility] Comment: Sepsis comment <0.5 Antibiotics Discouraged [...] EDT 06/04/2025 5:02 AM EDT [facility] LABORATORY - 06/04/2025 10:38 AM EDT Specimen slightly hemolyzed Octavio Odell MD LAB BLOOD ORDERABLES Final Re sult Performing Organization Address [facility] Co de Phone Number [facility] [address] [phone] * (ABNORMAL) PROBNP (06/04/2025 5:02 AM EDT) [facility] ProBNP (pg/mL) 5,625(H) 16 - 956 pg/mL 06/04/2025 10:38 AM EDT [facility] Blood Venipuncture / Unknown 06/04/2025 5:02 AM EDT 06/04/2025 5:02 AM EDT [facility] LABORATORY - 06/04/2025 10:38 AM EDT As of January 14, 2025: NT-ProBNP is a new test on our [employer] Immunoassay analyzer. Please review new age and gender specific reference ranges. us Octavio Odell MD LAB BLOOD ORDERABLES Final Re sult Performing Organization Address [facility] Co de Phone Number [facility] [address] [phone] * (ABNORMAL) Iron and TIBC (06/04/2025 5:02 AM EDT) Iron 101 50 - 170 ug/dL 06/04/2025 6:16 AM EDT [facility] TIBC 244(L) 250 - 435 ug/dL 06/04/2025 6:16 AM EDT [facility] % Saturation 41 % 06/04/2025 6:16 AM EDT [facility] UIBC 143 06/04/2025 6:16 AM EDT [facility] Blood Venipuncture / Unknown 06/04/2025 5:02 AM EDT 06/04/2025 5:02 AM EDT [facility] LABORATORY - 06/04/2025 6:16 AM EDT Specimen slightly hemolyzed us Sima Mancia MD LAB BLOOD ORDERABLES Final Re sult [facility] [address] [phone] * (ABNORMAL) Lactate dehydrogenase (LDH) (06/04/2025 5:02 AM EDT) LDH 431(H) 125 - 220 U/L 06/04/2025 9:08 AM EDT [facility] Blood Venipuncture / Unknown 06/04/2025 5:02 AM EDT 06/04/2025 5:02 AM EDT [facility] LABORATORY - 06/04/2025 9:08 AM EDT Specimen slightly hemolyzed us Holger Mishra MD LAB BLOOD ORDERABLES Final Resul t [facility] [address] [phone] * Ferritin (06/04/2025 5:02 AM EDT) Ferritin 162.66 4.63 - 204.00 ng/mL 06/04/2025 6:16 AM EDT [facility] Blood Venipuncture / Unknown 06/04/2025 5:02 AM EDT 06/04/2025 5:02 AM EDT Narrative [facility] - 06/04/2025 6:16 AM EDT Specimen slightly hemolyzed us Sima Mancia MD LAB BLOOD ORDERABLES Final Re sult Performing Organization Address [facility]/ZIP Co de Phone Number [facility] [address] [phone] * (ABNORMAL) Vitamin B12 (06/04/2025 5:02 AM EDT) Vitamin B12 >2,000(H) 213 - 816 pg/mL 06/04/2025 6:19 AM EDT [facility] Blood Venipuncture / Unknown 06/04/2025 5:02 AM EDT 06/04/2025 5:02 AM EDT Narrative [facility] - 06/04/2025 6:19 AM EDT Specimen slightly hemolyzed us Sima Mancia MD LAB BLOOD ORDERABLES Final Re sult Performing Organization Address [facility] Co de Phone Number [facility] [address] [phone] * (ABNORMAL) Comprehensive metabolic panel (06/04/2025 5:02 AM EDT) Sodium 145 136 - 145 meq/L 06/04/2025 6:18 AM EDT [facility] Potassium 6.5(HH) 3.4 - 5.1 meq/L 06/04/2025 6:18 AM EDT [facility] Chloride 110 98 - 112 meq/L 06/04/2025 6:18 AM EDT [facility] CO2 17(L) 22 - 29 meq/L 06/04/2025 6:18 AM EDT [facility] Calcium 8.7 8.4 - 10.2 mg/dL 06/04/2025 6:18 AM EDT [facility] Glucose 116(H) 82 - 115 mg/dL 06/04/2025 6:18 AM [facility] BUN 79.5(H) 9.8 - 20.1 mg/dL 06/04/2025 6:18 AM [facility] Creatinine 5.35(H) 0.57 - 1.11 mg/dL 06/04/2025 6:18 AM [facility] BUN/Creatinine 15 8 - 20 06/04/2025 6:18 AM [facility] eGFR (mL/min/1.73m2) 7(L) >=60 mL/min/1. 73m2 06/04/2025 6:18 AM [facility] Comment:ESTIMATED GFR IS NOT ACCURATE CREATININE CLEARANCE IN PREDICTING GLOMERULAR FILTRATION RATE. ESTIMATED GFR IS NOT APPLICABLE FOR DIALYSIS PATIENTS. Albumin 2.5(L) 3.5 - 5.0 g/dL 06/04/2025 6:18 AM [facility] Alkaline Phosphatase 63 40 - 150 U/L 06/04/2025 6:18 AM [facility] ALT 10 <=34 U/L 06/04/2025 6:18 AM [facility] Comment: ALT2 reagent used for testing does not contain P5P supplementation and therefore may miss ALT elevations in patients with B6 deficiency. This population may be as high as 10% in the [place], with risk factors including malabsorption, drug interactions, and alcoholic hepatitis. AST 36(H) 11 - 34 U/L 06/04/2025 6:18 AM [facility] Comment: AST2 reagent used for testing does not contain P5P supplementation and therefore may miss AST elevations in patients with B6 deficiency. This population may be as high as 10% in the [place], with risk factors including malabsorption, drug interactions, and alcoholic hepatitis. Total Bilirubin 0.5 0.2 - 1.2 mg/dL 06/04/2025 6:18 AM [facility] Protein, Total 6.3(L) 6.4 - 8.3 g/dL 06/04/2025 6:18 AM [facility] Globulin 3.8 2.5 - 4.1 g/dL 06/04/2025 6:18 AM [facility] Anion Gap 25(H) 4 - 12 06/04/2025 6:18 AM EDT [facility] A/G Ratio 0.7 0.7 - 1.9 06/04/2025 6:18 AM EDT [facility] Osmolality Calc 313.5 mOsm/kg 6:18 AM EDT [facility] Blood Venipuncture / Unknown 06/04/2025 5:02 AM EDT 06/04/2025 5:02 AM EDT [facility] LABORATORY - 06/04/2025 6:18 AM EDT Specimen slightly hemolyzed us Steffen Juan PA-C LAB BLOOD ORDERABLES Final Res ult Performing Organization Address [facility]/ZIP Co de Phone Number [facility] [address] [phone] * Strep pneumoniae urine antigen (06/03/2025 11:50 PM EDT) Strep pneumoniae Antigen Presumptive negative for pneumococcal pneumonia - see comment Presumptive negative for pneumococcal pneumonia- see comment 06/04/2025 12:12 AM EDT [facility] Urine URINE / Unknown 06/03/2025 1 1:50 PM EDT 06/03/2025 11:50 PM EDT [facility] LABORATORY - 06/04/2025 12:12 AM EDT A presumptive negative result suggests no current or recent pneumococcal infection. Infection due to S. pneumoniae cannot be ruled out since the antigen present in the specimen may be below the detection limit of the test. us Sima Mancia MD MICROBIOLOGY - GENERAL ORDERA BLES Final Result Performing Organization Address City/[facility]/ZIP Co de Phone Number [facility] [address] [phone] * Urea Nitrogen, random urine (06/03/2025 11:50 PM EDT) Urea Nitrogen, Ur 328 mg/dL 06/04/2025 12:14 AM EDT [facility] Comment: Reference Range not established Reference range not established Urine 06/03/2025 11:5 0 PM EDT 06/03/2025 11:50 PM EDT Sima Mancia MD URINE ORDERABLES Final Result Performing Organization Address City/[facility]/ZIP Co de Phone Number [facility] [address] [phone] * Legionella antigen, urine (06/03/2025 11:50 PM EDT) Legionella Urine Antigen Presumptive negative for L. pneumophila serogroup 1 antigen in urine- see comment Presumptive negative for L. pneumophila serogroup 1 antigen in urine- see comment 06/04/2025 12:12 AM EDT [facility] Urine 06/03/2025 11:5 0 PM EDT 06/03/2025 11:50 PM EDT Narrative [facility] - 06/04/2025 12:12 AM EDT Presumptive [...] ORDERABLES Final Result Performing Organization Address [facility] Co de Phone Number [facility] [address] [phone] * Sodium, random urine (06/03/2025 11:50 PM EDT) Sodium Urine 109 See Comment meq/L 06/04/2025 12:14 AM EDT [facility] Comment:Reference Range not established Urine 06/03/2025 11:5 0 PM EDT 06/03/2025 11:50 PM EDT Steffen Juan PA-C URINE ORDERABLES Final Result [facility] [address] [phone] * (ABNORMAL) Protein, random urine (06/03/2025 11:50 PM EDT) Protein, Urine 15(H) 1 - 14 mg/dL 06/04/2025 12:14 AM EDT [facility] Comment:No normal reference range established Urine 06/03/2025 11:5 0 PM EDT 06/03/2025 11:50 PM EDT us Steffen Juan PA-C URINE ORDERABLES Final Result Performing Organization Address [facility] Co de Phone Number [facility] [address] [phone] * (ABNORMAL) Creatinine, random urine (06/03/2025 11:50 PM EDT) Creatinine, Ur 39.00(L) 47.00 - 110.00 mg/dL 06/04/2025 12:14 AM EDT [facility] Urine 06/03/2025 11:5 0 PM EDT 06/03/2025 11:50 PM EDT us Steffen MIMS-C URINE ORDERABLES Final Result Performing Organization Address [facility]/ZIP Co de Phone Number [facility] [address] [place] [address], [facility] [phone] * Chloride, random urine (06/03/2025 11:50 PM EDT) ChlorideUr 109 See Comment mmol/L 06/04/2025 12:17 AM EDT [facility] Comment:Reference range not established Urine 06/03/2025 11:5 0 PM EDT 06/03/2025 11:50 PM EDT us Sima Mancia MD URINE ORDERABLES Final Result Performing Organization Address City/[facility]/ZIP Co de Phone Number [facility] [address] [place] [address], [facility] [phone] * Phosphorus (06/03/2025 11:43 PM EDT) Phosphorus 4.4 2.5 - 4.5 mg/dL 06/04/2025 12:07 AM EDT [facility] Blood Venipuncture / Unknown 06/03/2025 11:43 PM EDT 06/03/2025 11:47 PM EDT Steffen Juan PA-C LAB BLOOD ORDERABLES Final Res ult Performing Organization Address City/[facility]/ZIP Co de Phone Number [facility] [address] [place] [address], [facility] [phone] * Creatine Kinase (CK) (06/03/2025 11:43 PM EDT) Pathologist [facility] Total CK 62 29 - 168 U/L 06/04/2025 12:07 AM EDT [facility] Blood Venipuncture / Unknown 06/03/2025 11:43 PM EDT 06/03/2025 11:47 PM EDT Steffen Juan PA-C LAB BLOOD ORDERABLES Final Res ult Performing Organization Address City/[facility]/ZIP Co de Phone Number [facility] [address] [place] [address], [facility] [phone] * (ABNORMAL) CBC Scan (06/03/2025 11:42 PM EDT) Pathologist [facility] Platelet Estimate Decreased( A) Adequate 06/04/2025 12:48 AM EDT [facility] RBC Morphology Normal Normal 06/04/2025 12:48 AM EDT [facility] Blood Venipuncture / Unknown 06/03/2025 11:42 PM EDT 06/03/2025 11:47 PM EDT Steffen Juan PA-C LAB BLOOD ORDERABLES Final Res ult Performing Organization Address City/[facility]/ZIP Co de Phone Number [facility] [address] [phone] * (ABNORMAL) Lactic Acid with reflex (SJ) (06/03/2025 11:42 PM EDT) Lactic Acid Level (mmol/L) 2.4(HH) 0.5 - 2.2 mmol/L 06/04/2025 12:13 AM EDT [facility] Blood Venipuncture / Unknown 06/03/2025 11:42 PM EDT 06/03/2025 11:47 PM EDT Steffen Juan PA-C LAB BLOOD ORDERABLES Final Res ult Performing Organization Address [facility] Co de Phone Number [facility] [address] [phone] * EKG-SCANNED (06/03/2025) Only the most recent of2 resultswithin the time period is included. Narrative 06/03/2025 Ordered by an unspecified provider. 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
[2025-07-19] MEDS: ISOTOPE MYOVIEW (PER STUDY) 1 DOSE IV (09:25)
[2025-07-19] MEDS: SODIUM CHLORIDE 0.9% 10ML SYR (RAD ONLY) 10 ML IV ×2 (09:25)
== END 2025-07-19 23:59 | disposition home or self-care (01) ==
LOC: RAD 07:19
PROVIDERS: PCP Family Medicine; Visit Provider Physician Assistant
DX: R94.39 Abnormal result of other cardiovascular function study (principal); R94.31 Abnormal electrocardiogram [ECG] [EKG]; I10 Essential (primary) hypertension; E11.9 Type 2 diabetes mellitus without complications; E78.00 Pure hypercholesterolemia, unspecified; Z87.891 Personal history of nicotine dependence
CPT/HCPCS: 78452; 93017; 93018; A9502; J2785

== ENCOUNTER 2025-08-11 18:49 | Inpatient (IN) | payer MEDICARE, BC, SELFPAY ==
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
--- OUTSIDE RECORDS SUMMARY | 2025-06-29 12:15 | XMS_ITS ---
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, 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) Active confirmed Problem Diabetes mellitus type 2 (disorder) (60699383) DM2 (diabetes mellitus, type 2) (E11.9) Active confirmed Vital Signs Blood pressure systolic 146 mm Hg 06/29/20 25 Blood pressure diastolic 82 mm Hg 025 Heart Rate 75 /min 06/29/2025 Respiratory Rate 18 /min 06/29/2025 Weight 182 lbs 06/29/2025 Encounters Encounter Location Date Provider Diagnosis [address] [place] [phone] 06/29/2025 Yvette Harris Chronic pulmonary ed [place] [...] * CAMPOS MONTGOMERYDOB:1940 ( 84 yo F)Acc No.[id number]:06/29/2025 Progress Notes Patient: CAMPOS PHAM Provider: NICHOLAS Gonzalez :1940 A ge:84 Y S ex:Female Date:06/29/2025 Address:[address] [place] [address] [id number] Pcp:Allan Adamson Subjective: * Chief Complaints: * 1 . [facility] VISIT. * HPI: H PI: For [...] [facility] 12/30/2009-01/03/2010, RT Under Arm Cellulitis- [facility] 09/08/2009, LT Ankle Swollen- [facility] ER 02/14/2012, Radiation for Melanoma on Left Eye- [facility] 03/30-04/2016, Gastritis- [facility] 09/12-, Hip Replacement Surgery- [facility] 05/17-, Rehab- [place] May 2020, [facility] : CAP, Acute renal [...] 04/01-04/07/2025. * Family History: F ather: , [place]. M other: , alzheimer. 1 brother(s) . . Bro [place] 2001. * Social History: C URRENT TOBACCO USE: No S moking Status: Patient does NOT smoke. H ome smoke detector use: yes. Marital Status: . Past smoking status: no, quit smoking 2007. * Medications: T aking Nystatin 260055 UNIT/GM Powder 1 application beneath b breasts [...] 75, O2 Sat: 91%, Nurse: reviewed/recorded by [facility], RR: 18. * Examination: G [...] . C BC-hgb/hct/wbc 9 .6/29.7/6.[address] [id number].?HbA1C 5 .0. S GOT/SGPT 2 9/18. a [...] * Images: Billing Information: * Visit Code: 65230 subs. level 4. * Procedure Codes: * Electronic signature of Tatiana Harris APRN on 08/12/2025 at 07:48 AM EST Sign off status: Pending * Provider: NICHOLAS Gonzalez Date: 08/29/2024 Generated for Chucho forrester/Rubia/Cammieitting on: 10/13/2024 07:48 AM EST History and [...] 1430 00 GFR 12 Creatinine 3.5 SGOT/SGPT glucose 138 HbA1C 5.0 Potassium 4.7 Sodium 142 BUN 39 calcium 9 chloride 101 CO2 26 alk phos 111 total bilirubin 0.33 albumin 3.5 date of labs 06/28/2025
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
[2025-08-11] VITALS (8 sets, daily range): BP systolic 121–138; BP diastolic 54–58; PULSE 70–80; RESP 17–30; TEMP 36.7–37; O2SAT 94–97; BMI 36.6
--- NOTE | 2025-08-11 18:54 | XR_ITS ---
PROCEDURE INFORMATION: Exam: XR Chest Exam date and time: 08/11/2025 6:58 PM Age: 84 years old Clinical indication: Shortness of breath; Additional info: SOA, resp failure TECHNIQUE: Imaging protocol: Radiologic exam of the chest. Views: 1 view. COMPARISON: CR XR CHEST PORTABLE 05/12/2025 5:26 AM FINDINGS: Limitations: Evaluation of the lung apices is limited by patient positioning and overlying soft tissues. Lungs: Bilateral lower lung airspace opacities. Pleural spaces: No obvious pneumothorax or large pleural effusion. Heart/Mediastinum: Heart size can not be accurately assessed in this projection Bones/joints: Unremarkable. IMPRESSION: Bilateral lower lung airspace opacities may represent pneumonia in the appropriate clinical setting. Pulmonary edema with layering effusions and atelectasis is on the differential. Correlate clinically.
--- NOTE | 2025-08-11 18:55 | ECG_ITS ---
APPROVED REPORT Exam: Resting ECG HR:79 bpm ECG Measurements Heart Rate 79 AXES QRSd 146 QRS 19 QT 384 T -15 QTc 418 Conclusion UNCERTAIN REGULAR RHYTHM INDETERMINATE AXIS RIGHT BUNDLE BRANCH BLOCK [120+ ms QRS DURATION, UPRIGHT V1, 40+ ms S IN I/aVL/V4/V5/V6] ABNORMAL ECG UNCONFIRMED REPORT Electronically signed by : ELISABET CORNEJO, 08/13/2025 06:59:46
[2025-08-11] MEDS: IPRATROPIUM/ALBUTEROL 3 ML NEB 9 ML IH (19:12)
[2025-08-11 19:13] LABS: Lactate Venous 1.5 mmol/L (0.4-2.0); VBG HCO3 26.0 mmol/L (23-30); VBG PH 7.27 mmol/L (7.31-7.41); VBG PO2 34.6 mmol/L (28-40)
--- OUTSIDE RECORDS SUMMARY | 2025-08-11 19:14 | XMS_ITS | Clinical Summary ---
Author Organization [facility] Address [address] [place] [address] Care Team Providers Care Director Of Food And Nutrition Services Name Role Phone Allan Adamson MD Primary Care Provider [phone] Allergies No known active allergies Medications lisinopril [...] (two) times a day. Active HYDROcodone-rikki taminophen ([place]) 5-325 MG tablet Active oxybutynin XL (Ditropan-XL) [...] of Treatment Not on file Insurance MEDICARE FOR[facility]LY [facility] Care Teams Director Of Food And Nutrition Services Relationship Specialty Start Date End Date Allan Adamson MD [facility] [place] [address] PCP - General 01/06/21
[2025-08-11] MEDS: MAGNESIUM SULFATE IN WATER 2 GM/50 ML PIGGYBACK IV (19:15)
--- OUTSIDE RECORDS SUMMARY | 2025-08-11 19:15 | XMS_ITS | Patient Health Record ---
Author Organization [facility] Address [address] [facility] [address] [place] [id number] Care Team Providers Care Lay Out Worker Name Role Phone Allan Adamson Primary Care Provider [phone] Ata Vences Unavailable [phone] Yvette Harris Unavailable [phone] Allergies No Known Allergies Results Component Value Reference Range Notes H-Sputum Culture with Gram S tain Reviewed date:04/07/2025 01:00:59 PM Interpretation: Performing Lab: Notes/Report: Cancel Comments Cancelled via OM: Order cancelled - Patient discharged Comment: Induce w/3ml NS neb tx if necessary CMP Reviewed date:04/23/2025 11:42:34 AM Interpretation:Abnormal Performing Lab: Notes/Report: Abnormal BMP Reviewed date:05/03/2025 04:19:34 PM Interpretation: Performing Lab: Notes/Report: Estimated Average Glucose Reviewed date:12/22/2024 09:28:32 AM Interpretation:128 Performing Lab: Notes/Report: Test performed by [facility], [place] [address] [place] [address] , [address], [place] [address] Tristian Amado MD, Paper Cone Machine Operator CLIA: [id number] Estimated Average Glucose (eAG) 128 Estimated Average Glucose (eAG) is calculated using the equation eAG = (28.7 x HbA1c) - 46.7 based on the guidelines established by the ADA. If the patient has certain diseases including kidney disease, sickle cell anemia, thalassemia, or is taking medications such as dapsone, erythropoietin, or iron, eAG should not be evaluated. H-BMP Reviewed date:04/05/2025 08:37:42 AM Interpretation: Performing [...] 0.0 0-0.2 K/mm3 NRBC# 0 IG# 0.16 M-Venous Blood Gas Reviewed date:04/02/2025 11:02:14 AM Interpretation: Performing Lab: Notes/Report: PHVEN 7.37 7.31-7.41 mmol/L [id number] 59.8 35-51 mmol/L CRITICAL RESULT Results called to:DARLING LARSON by RT Oni, VP OF MARKETING at 0307 on 04/02/25 PO2VEN 36.9 28-40 mmol/L [id number] 34.0 23-30 mmol/L [id number] 35.9 23-27 mmol/L BEVEN 8.8 -2.4-2.3 mmol/L [id number] 71.7 50-70 % LACVEN 1.7 0.4-2.0 mmol/L CBC Reviewed date:04/01/2025 04:10:32 PM Interpretation: Performing Lab: Notes/Report: UA Reviewed date:03/30/2025 01:01:11 PM Interpretation:Abnormal Performing Lab: Notes/Report: Abnormal H-BMP Reviewed date:08/13/2024 09:36:50 AM Interpretation: Performing [...] 0.1 0.0-0.4 K/mm3 BA# 0.1 0-0.2 K/mm3 H-Vancomycin, Peak Reviewed date:08/12/2024 02:40:36 PM Interpretation: Performing Lab: Notes/Report: VANCP 29.6 11-39 ug/ml CBC Venipuncture (in house) Reviewed date:12/27/2024 09:21:10 [...] 26 Performing Lab: Notes/Report: Test performed by [facility] [address] [place] [address] , [address], [place] [address] Tristian Amado MD, Paper Cone Machine Operator CLIA: [id number] Sodium 142 135-145 mmol/L Potassium 5.0 3.5-5.3 mmol/L Chloride 99 97-108 mmol/L CO2 34 22-32 mmol/L Glucose 61 65-99 mg/dL BUN 51 8-23 mg/dL Creatinine 1.87 0.50-1.00 mg/dL Calcium 9.3 8.6-10.4 mg/dL eGFR by Creatinine 26 >59 mL/min/1.73m2 P-Hemoglobin A1C Reviewed date:12/22/2024 09:28:32 AM Interpretation:6.1 Performing Lab: Notes/Report: Test performed by [facility] [address] [place], [place] [address] , [address], [place] [address] Tristian Amado MD, Paper Cone Machine Operator CLIA: [id number] Hemoglobin A1C 6.1 <5.7 % The following HbA1c ranges recommended by the [place] [employer] (ADA) may be used as an aid in the diagnosis of diabetes mellitus. HbA1c Suggested Diagnosis >=6.5% Diabetic 5.7% - 6.4% Pre-Diabetic <5.7% Non-Diabetic P-Magnesium Reviewed date:12/22/2024 09:28:32 AM Interpretation: Normal Performing Lab: Notes/Report: Test performed by [facility] [address] [place] [address] , [address], [place] [address] Tristian Amado MD, Paper Cone Machine Operator CLIA: [id number] Magnesium 1.9 1.6-2.4 mg/dL Iron Reviewed date:04/02/2025 11:02:14 AM Interpretation: Performing Lab: Notes/Report: Urine Culture and Sensitivit y Reviewed date:03/31/2025 02:29:25 PM Interpretation:No Growth Performing Lab: Notes/Report: No Growth H-Urine Culture and Sensitiv ity Reviewed date:02/24/2025 02:29:45 PM Interpretation:suggests contamination Performing Lab: Notes/Report: suggests contamination H-Vancomycin, Trough Reviewed date:08/11/2024 10:07:57 AM Interpretation: [...] 6.7 4.8-10.8 K/mm3 Delta: 10.9 o n 08/10/24-645 RBC 4.12 4.20-5.40 M/mm3 HGB 10.1 12.2-16.2 [...] 0.1 0.0-0.4 K/mm3 BA# 0.1 0-0.2 K/mm3 H-CBC Reviewed date:05/10/2025 09:28:19 AM Interpretation: Performing [...] Notes/Report: MG 1.7 1.6-2.3 mg/dl H-CBC Reviewed date:05/10/2025 09:28:19 AM Interpretation: Performing [...] 0.0 0-0.2 K/mm3 NRBC# 0 IG# 0.06 H-DIFF Reviewed date:05/10/2025 09:28:20 AM Interpretation: Performing Lab: Notes/Report: PIPE MANUAL DIFFERENTIAL MANUAL DIFF TCC 100 NEUT%M 87 42-76 % LYMPH%M 8 10-50 % MONO%M 5 2-9 % PLTE Slight Decrease RM Normal M-Venous Blood Gas Reviewed date:05/10/2025 09:28:20 AM Interpretation: Performing Lab: Notes/Report: PHVEN 7.52 7.31-7.41 mmol/L [id number] 25.1 35-51 mmol/L PO2VEN 163.1 28-40 mmol/L XQU7NAI 19.8 23-30 mmol/L [id number] 20.6 23-27 mmol/L BEVEN -3.1 -2.4-2.3 mmol/L [id number] 98.9 50-70 % LACVEN 1.5 0.4-2.0 mmol/L [...] AGRATIO 1.3 1.1-1.8 ALP 74 38-126 U/L CXR Reviewed date:12/24/2024 08:24:52 AM Interpretation: Performing Lab: Notes/Report: H-UA Reviewed date:02/24/2025 [...] Occasional 0-5 #/hpf UBACT Trace NONE /lpf H-CBC Reviewed date:05/12/2025 08:46:02 AM Interpretation: Performing [...] GFRAA 34 >60 ML/MIN Delta: 27 on 05/10/25 EGFR 28 >60 ml/min GLU 105 74-100 mg/dl CA 9.4 8.4-10.2 mg/dl BILIT 0.6 0.2-1.3 mg/dl AST 33 14-36 U/L ALT 11 12-78 U/L TP 6.0 6.3-8.2 g/dl ALB 3.2 3.5-5.0 g/dl GLOB 2.8 1.3-3.2 g/dL AGRATIO 1.1 1.1-1.8 ALP 80 38-126 U/L H-Sputum Culture with Gram S talat Reviewed date:05/14/2025 12:15:40 PM Interpretation: Performing Lab: Notes/Report: Cancel Comments Cancelled via OM: Order cancelled - Patient discharged Comment: Induce w/3ml NS neb tx if necessary CMP Reviewed date:06/29/2025 01:17:30 PM Interpretation: Performing Lab: Notes/Report: Medications Medication [...] butt paste daily to gluteal folds Active Wheelchair - as directed As needed Diagnosis: E11.42, M15.0, M16.11, M21.969, I51.89, J44.9, M21.962, R26.89, G62.9 Active Montelukast Sodium 10 MG 1 tablet Orally Once a day Active o2 with portable conserving device 1 use as directed Activ e Biofreeze 10 % to hands Externally 4 times a day As needed Active CPAP machine and supplies - as [...] times a day As needed Active Nebulizer - as directed 12/03/2024 Activ e Nystatin 902078 UNIT/GM 1 application beneath b breasts Externally Twice a day Active Oxygen - per nasal cannula as directed 3 LPM Active Glucosamine Sulfate 1000 MG as directed Orally qd Active Bumetanide 1 MG 1 tablet Orally Once a day; Duration: 30 day(s) Active Caltrate 600+D3 600-800 MG-UNIT 1 tablet with a meal Orally twice a day Active Simvastatin 20 MG TAKE 1 TABLET BY MOUTH ONCE DAILY AT BEDTIME FOR 90 DAYS Active Lidocaine 4 % 1 patch as needed Externally daily As needed Active Nebulizer Air Tube/Plugs - as directed 12/03/2024 Active Eye Vitamins - as directed Orally Not-Taking Hospital Bed - as directed 12/28/2024 Ac tive Vitamin B12 1000 MCG 1 tablet Orally Once a day Active Acetaminophen 500 MG 1 tablet as needed Orally every 6h prn Active Zocor 20 MG 1 tab(s) orally once a day at bedtime Active Fluticasone-Salmeter ol 250-50 MCG/ACT 1 puff Inhalation Twice a day Active Pregabalin 75 MG 1 cap(s) orally 2 times a day Active CeraVe Daily Moisturizing - as directed Externally daily Active oxyBUTYnin Chloride ER 10 MG 2 tab(s) Orally Once a day Active Metoprolol Succinate 25 MG 1/2 tab Orally Once a day Active Esomeprazole Magnesium 40 MG 1 cap(s) orally once a day Active Immunizations Vaccine Route Administration [...] Status W/U Status Risk Notes Problem Hyperlipidaemia (46935833) Hyperlipemia (272.4) Active confirmed Problem Hyperlipidemia (77121181) Hyperlipidemia (272.4) Active confirmed Problem Essential hypertension (03295627) Essential (primary) hypertension (I10) Active confirmed Problem Tear film insufficiency (81647812) Dry eyes, bilateral (H04.123) Active confirmed Problem History of malignant melanoma of the skin (917874166510) History of melanoma (Z85.820) Active confirmed Problem Essential hypertension (67646467) Essential hypertension (I10) Active confirmed Problem Hypertriglyceridemia (818207187) Hypertriglyceridemia (E78.1) Active confirmed Problem Long-term current us e 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 (727610642) retirement current use 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 (Z79.01) Active confirmed Problem Obstructive sleep apnea (05224396) Obstructive sleep apnea (G47.33) Active confirmed Problem Hypokalemia (31683097) History of hypokalemia (Z86.39) Active confirmed Problem Mixed anxiety and depressive disorder (573699194) Depression with anxiety (F41.8) Active confirmed Problem Acute exacerbation o f chronic obstructive airways disease () COPD exacerbation (J44.1) Active confirmed Problem Mixed hyperlipidemia (392711382) Mixed hyperlipidemia (E78.2) Active confirmed Problem Hypomagnesemia (432759094) Hypomagnesemia (E83.42) Active confirmed Problem Allergic rhinitis (35736899) Allergic rhinitis, unspecified (J30.9) Active confirmed Problem Chronic pulmonary edema (30740455) Chronic pulmonary edema (J81.1) Active confirmed Problem Chronic respiratory failure (26428349) Chronic respiratory failure, unspecified whether with hypoxia or hypercapnia (J96.10) Active confirmed Problem Uaidn-qa-fgwabvu hypoxemic respiratory failure (98432938206348196) Acute and chronic respiratory failure with hypoxia (J96.21) Active confirmed Problem Abnormal findings on diagnostic imaging of breast (476540966) Other abnormal and inconclusive findings on diagnostic imaging of breast (R92.8) Active confirmed Problem History of polyp of colon (situation) (718268121) History of colon polyps (Z86.010) Active confirmed Problem Chronic pain (64693943) Other chronic pain (G89.29) Active confirmed Problem Pulmonary emphysema (76462442) Pulmonary emphysema, unspecified emphysema type (J43.9) Active confirmed Problem Primary osteoarthritis (256442184) Primary osteoarthritis involving multiple joints (M15.0) Active confirmed Problem Gastroesophageal reflux disease (disorder) (118643090) Chronic GERD (K21.9) Active confirmed Problem COPD - Chronic obstructive pulmonary disease (43069696) Chronic obstructive pulmonary disease, unspecified COPD type (J44.9) Active confirmed Problem Acute exacerbation o f chronic obstructive airways disease (037648685) Acute exacerbation of chronic obstructive pulmonary disease (COPD) (J44.1) Active confirmed Problem Gastroesophageal reflux disease (802013750) Gastroesophageal reflux disease, esophagitis presence not specified (K21.9) Active confirmed Problem Neuropathy (434753868) Neuropathy (G62.9) Active confirmed Problem Allergic rhinitis (88912041) Allergic rhinitis (J30.9) Active confirmed Problem Lumbar spinal stenosis (39637497) Spinal stenosis, lumbar (M48.06) Active confirmed Problem Osteoporosis (58536322) Osteoporosis (M81.0) Active confirmed Problem Cardiac arrhythmia (990125133) Atrial dysrhythmia (I49.8) Active confirmed Problem Anemia (895490589) Anemia, unspe cified type (D64.9) Active confirmed Problem Sleep apnea (59196159) Sleep apnea, unspecified type (G47.30) Active confirmed Problem Hyperlipidaemia (90102661) Hyperlipidemia, unspecified hyperlipidemia type (E78.5) Active confirmed Problem Polyneuropathy due t o type 2 diabetes mellitus (222141727) 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) Active confirmed Problem Kmqxt-kh-finbjsv hypoxemic respiratory failure (80840134539694650) Acute on chronic respiratory failure with hypoxia (J96.21) Active confirmed Problem Diabetes mellitus type 2 (disorder) (16967455) DM2 (diabetes mellitus, type 2) (E11.9) Active confirmed Problem Atrial ectopic (161670077) Atrial ectopic (I49.1) Active confirmed Problem Low back pain (812391458) Chronic right-sided low back pain without sciatica (M54.5) Active confirmed Problem Type II diabetes mellitus without complication (607041150) Type 2 diabetes mellitus without complication, without long-term current use of insulin (E11.9) Active confirmed Problem Cramp in lower leg associated with rest (140763790) Leg cramps, sleep related (G47.62) Active confirmed Problem 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, choroid, 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 Problem Hypertensive urgency (682605149) Hypertensive urgency (I16.0) Active confirmed Problem Urge incontinence of urine (33424044) Urge incontinence of urine (N39.41) Active confirmed Problem Sleep apnea (87080134) Sleep apnea in adult (G47.30) Active confirmed Problem Arthritis of right hip (5059408405574633) Arthritis of right hip (M16.11) Active confirmed Problem Deformity of foot (finding) (910776534) Deformity of foot, unspecified laterality (M21.969) Active confirmed Problem Type II diabetes mellitus without complication (724126428) Type 2 diabetes mellitus without complication, unspecified whether senior care insulin use (E11.9) Active confirmed Problem Diastolic dysfunctio n (8311113) Diastolic dysfunction (I51.89) Active confirmed Problem Osteomyelitis (36341456) Osteomyelitis of toe of right foot (M86.9) Active confirmed Problem Gastroesophageal reflux disease (027027032) Gastroesophageal reflux disease, unspecified whether esophagitis present (K21.9) Active confirmed Problem Diabetes mellitus without complication (820484052) 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, 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) Active confirmed Problem Chronic kidney disease stage 3B (disorder) (856056334) Stage 3b chronic kidney disease (CKD) (N18.32) Active confirmed Problem Chronic kidney disease stage 3A (disorder) (792224459) Stage 3a chronic kidney disease (CKD) (N18.31) Active confirmed Problem Anemia (413455246) Acute anemia (D64.9) Active confirmed Problem Abnormal gait (92925310) Inability to bear weight (R26.89) Active confirmed Problem Left ankle joint deformity (M21.962) Active confirmed Vital Signs Heart Rate 79 /min 07/13/2025 Respiratory Rate 16 /min 07/13/2025 Blood pressure diastolic 70 mm Hg 07/13/2025 Height 65.50 in 04/22/2025 Blood pressure systolic 145 mm Hg 07/13/2025 Weight 190.6 lbs 07/13/2025 BMI 32.51 kg/m2 04/22/2025 Encounters Encounter Location Date Provider Diagnosis [address] [place] [id number] 08/25/2024 Yvette Harris Left ankle joint deformity [...] unspecified whether senior care insulin use E11.9 ; Essential (primary) hypertension [...] R53.81 and Leg cramps, sleep related G47.62 [facility] [address] [facility] [address] [place] [id number] 09/22/2024 Allan [place] Essential hypertensi on I10 ; Chronic obstructive pulmonary disease, unspecified COPD type J44.9 ; Dry eyes, bilateral H04.123 ; Depression with anxiety F41.8 ; Gastroesophageal reflux disease, esophagitis presence not specified K21.9 ; Hypomagnesemia E83.42 ; Debility R53.81 ; Allergic rhinitis J30.9 ; Osteoporosis M81.0 and Obstructive sleep apnea G47.33 [facility] [address] [place], [place] [id number] 12/21/2024 Allan [place] Type 2 diabetes rere itus without complication, without long-term current use of insulin E11.9 ; Chronic respiratory failure, unspecified whether with hypoxia or hypercapnia J96.10 ; Other hemorrhoids K64.8 ; BRBPR (bright red blood per rectum) K62.5 ; Hypomagnesemia E83.42 ; Stage 3b chronic kidney disease (CKD) N18.32 and Chronic obstructive pulmonary disease, unspecified COPD type J44.9 [address] [place] [id number] 04/13/2025 Yvette Harris Chronic pulmonary [place] [...] 2 diabetes mellitus without complication, unspecified whether child and family services worker insulin use E11.[address] [id number] 04/27/2025 Yvette Harris Chronic pulmonary [place] [...] Peripheral edema R60.9 and Dry skin L85.3 [address] [id number] 05/18/2025 Yvette Harris Acute pneumonia J18. 9 [...] 2 diabetes mellitus without complication, unspecified whether child and family services worker insulin use E11.[address] [place] [id number] 05/25/2025 Yvette Harris Acute pneumonia J18. 9 [...] unspecified whether senior care insulin use E11.[address] [place] [id number] 06/15/2025 Yvette Harris Chronic pulmonary [place] [...] Peripheral edema R60.9 and Dry skin L85.[address] [place], [place] [id number] 06/22/2025 Yvette Harris Chronic pulmonary [place] [...] Peripheral edema R60.9 and Dry skin L85.3 [place] [address] [id number] 06/29/2025 Yvette Harris Chronic pulmonary [place] [...] and DM2 (diabetes mellitus, type 2) E11.9 [place] [address] [id number] 07/13/2025 Yvette Harris Chronic pulmonary [place] [...] Candidiasis of skin B37.2 and Osteoporosis M81.0 [facility] [address] [place], [place] [id number] 08/21/2024 Allan [place] [facility] [address] [facility] [address] [place] [id number] 09/07/2024 Allan [place] Diabetic polyneuropa thy associated with type 2 diabetes mellitus E11.42 [facility] [address] [facility] [address] [place], [place] [id number] 09/07/2024 Allan [place] Type 2 diabetes rere itus without complication, unspecified whether child and family services worker insulin use E11.9 ; Peripheral edema R60.9 and Debility R53.81 [facility] [address] [facility] [address] [place], [place] [id number] 09/08/2024 Allan [place] Type 2 diabetes rere itus without complication, unspecified whether senior care insulin use E11.9 [facility] [address] [facility] [address] [place] [id number] 09/22/2024 Allan [place] [facility] [address] [place] [id number] 09/24/2024 Allan [place] Allergic rhinitis J3 0.9 [facility] [address] [place] [id number] 11/04/2024 Allan [place] [facility] [address] [facility] [address] [place] [id number] 11/04/2024 Allan [place] Gastroesophageal ref lux disease, esophagitis presence not specified K21.9 and Diabetic polyneuropathy associated with type 2 diabetes mellitus E11.42 [facility] [address] [place], [place] [id number] 11/05/2024 Allan [place] [facility] [address] [place] [id number] 11/12/2024 Allan [place] [facility] [address] [place], [place] [id number] 11/13/2024 Ata Vences Essential hypertensi on I10 and Diabetic polyneuropathy associated with type 2 diabetes mellitus E11.42 [facility] [address] [place], [place] [id number] 11/27/2024 Allan [place] [facility] [address] [place] [id number] 12/03/2024 Allan [place] Chronic obstructive pulmonary disease, unspecified COPD type J44.9 [facility] [address] [place] [id number] 12/18/2024 Allan [place] [facility] [address] [place], [place] [id number] 12/21/2024 Allan [place] Urge incontinence of urine N39.41 and Hyperlipidemia, unspecified hyperlipidemia type E78.5 [facility] [address] [place], [place] [id number] 12/22/2024 Allan [place] [facility] [address] [place] [id number] 12/23/2024 Allan [place] [facility] [address] [place] [id number] 12/24/2024 Allan [place] [facility] [address] [place] [id number] 12/25/2024 Allan [place] [facility] [address] [place] [id number] 12/28/2024 Allan [place] [facility] [address] [place] [id number] 12/30/2024 Allan [place] [facility] [address] [place] [id number] 12/30/2024 Allan [place] [facility] [address] [place] [id number] 01/04/2025 Allan [place] [facility] [address] [place] [id number] 02/12/2025 Allan [place] [facility] [address] [place] [id number] 02/24/2025 Allan [place] [facility] [address] [place] [id number] 03/02/2025 Allan [place] [facility] [address] [place] [id number] 03/08/2025 Allan [place] Diabetic polyneuropa thy associated with type 2 diabetes mellitus E11.42 [facility] [address] [place] [id number] 03/25/2025 Allan [place] [facility] [address] [place] [id number] 03/29/2025 Allan [place] [facility] [address] [place] [id number] 03/31/2025 Allan [place] [facility] [address] [place] [id number] 03/31/2025 Allan [place] [facility] [address] [place] [id number] 04/01/2025 Allan [place] [facility] [address] [place] [id number] 04/07/2025 Allan [place] Diabetic polyneuropa thy associated with type 2 diabetes mellitus E11.42 [facility] [address] [place] [id number] 04/14/2025 Allan [place] [facility] [address] [place] [id number] 04/15/2025 Allan [place] [facility] [address] [place] [id number] 04/19/2025 Allan [place] [facility] [address] [place] [id number] 04/21/2025 Allan [place] [facility] [address] [place] [id number] 04/21/2025 Yvette Harris [facility] [address] [place] [id number] 04/22/2025 Yvette Harris [facility] [address] [place] [id number] 04/23/2025 Allan [place] [facility] [address] [place] [id number] 04/28/2025 Yvette Harris [facility] [address] [place] [id number] 05/06/2025 Allan [place] [facility] [address] [place] [id number] 05/14/2025 Allan [place] [facility] [address] [place] [id number] 05/19/2025 Allan [place] [facility] [address] [place] [id number] 05/26/2025 Allan [place] [facility] [address] [place] [id number] 05/27/2025 Allan [place] [facility] [address] [place] [id number] 05/31/2025 Allan [place] [facility] [address] [place] [id number] 06/01/2025 Allan [place] [facility] [address] [place] [id number] 06/03/2025 Allan [place] [facility] [address] [place] [id number] 06/15/2025 Yvette Harris [facility] [address] [place] [id number] 06/25/2025 Allan [place] [facility] [address] [place] [id number] 06/28/2025 Allan [place] Diabetic polyneuropa thy associated with type 2 diabetes mellitus E11.42 [facility] [address] [place] [id number] 06/29/2025 Allan [place] [facility] [address] [place] [id number] 08/04/2025 Allan [place] [facility] [address] [place] [id number] 08/06/2025 Allan [place] [facility] [address] [place] [id number] 08/10/2025 Allan [place] Assessments Encounter Date Diagnosis (ICD Code) Assessment Notes Treatment Notes Treatment Clinical Notes Section Notes 08/25/2024 Left ankle joint deformity (ICD-10 - M21.962) 09/07/2024 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) 09/07/2024 Type 2 diabetes mellitus without complication, unspecified whether child and family services worker insulin use (ICD-10 - E11.9) 09/08/2024 Type 2 diabetes mellitus without complication, unspecified whether child and family services worker insulin use (ICD-10 - E11.9) 09/22/2024 Essential hypertension (ICD-10 - I10) 09/22/2024 Chronic obstructive pulmonary disease, unspecified COPD type (ICD-10 - J44.9) Patient to follow up with pulmonology this afternoon 11/04/2024 Gastroesophageal reflux disease, esophagitis presence not specified (ICD-10 - K21.9) 11/13/2024 Essential hypertension (ICD-10 - I10) 12/03/2024 Chronic obstructive pulmonary disease, unspecified COPD type (ICD-10 - J44.9) 12/21/2024 Urge incontinence of urine (ICD-10 - N39.41) 04/07/2025 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) 04/27/2025 Chronic pulmonary edema (ICD-10 - J81.1) 05/18/2025 Acute pneumonia (ICD-10 - J18.9) 05/25/2025 Acute pneumonia (ICD-10 - J18.9) 06/28/2025 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) 07/13/2025 Chronic pulmonary edema (ICD-10 - J81.1) 06/29/2025 Chronic pulmonary edema (ICD-10 - J81.1) 06/22/2025 Chronic pulmonary edema (ICD-10 - J81.1) 06/22/2025 Stage 3b chronic kidney disease (CKD) (ICD-10 - N18.32) GFR 13 with creatinine 3.3; metformin and Farxiga discontinued; lasix made QOD; will start daily Lantus and check A1C adn BS AM and 4 PM ; will continue to monitor renal function; pt states she is not going on dialysis 06/15/2025 Chronic pulmonary edema (ICD-10 - J81.1) 04/13/2025 Chronic pulmonary edema (ICD-10 - J81.1) 03/08/2025 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) 12/21/2024 Chronic respiratory failure, unspecified whether with hypoxia or hypercapnia (ICD-10 - J96.10) 12/21/2024 Type 2 diabetes mellitus without complication, without long-term current use of insulin (ICD-10 - E11.9) 09/24/2024 Allergic rhinitis (ICD-10 - J30.9) 12/21/2024 Other hemorrhoids (ICD-10 - K64.8) 04/13/2025 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) 06/15/2025 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) 06/22/2025 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) 06/29/2025 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) 06/29/2025 Stage 3b chronic kidney disease (CKD) (ICD-10 -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
[2025-08-11 19:16] LABS: VBG PCO2 58.5 mmol/L (35-51)
[2025-08-11] MEDS: METHYLPREDNISOLONE SOD SUCC 125MG VIAL 125 MG IV (19:16)
--- OUTSIDE RECORDS SUMMARY | 2025-08-11 19:19 | XMS_ITS | Referral Summary ---
Author Organization [employer] ([place], [place], [place], [place], [place]) Address [address] [place] [address] Care Team Providers Care Edge Cutter Name Role Phone Allan Adamson MD Primary Care Provider [phone] Encounters Date Type Department Care Team Description 06/03/2025 10:40 PM EDT - 06/11/2025 5:36 PM EDT Hospital Encounter [facility] 5B Medical Telemetry Unit 1 [place] [address] Sima Mancia MD Kredan, Tawfik, MD Lewis, Paige, MD Acute renal failure, unspecified acute renal failure type (HCC) (Primary Dx) Discharge Disposition: Jail Facility 06/04/2025 Travel from Last 3 Months [...] lotn Apply 1 Application topically daily. Active glnxiqwo-uvr-VP -lycopen-lutein ([employer] Senior) 0.4 mg-300 mcg- 250 [...] mg total) by mouth daily. 5 Active Active Problems Problem Noted Date Diagnosed Date [...] your living situation today? I have a [facility] place to live 06/04/2025 Think about [...] Do you speak a language other than Nigerian at ho me? No 06/04/2025 Do you want help with [...] POC Routine 06/04/2025 11:3 7 AM EDT [id number] ACTIVITY(SENDOUT) Routine 06/04/2025 10:58 AM EDT RENAL [...] METABOLIC PANEL STAT 06/03/2025 11:43 PM EDT [facility] CBC SCAN Routine 06/03/2025 11:42 PM EDT LACTIC ACID WITH REFLEX STAT 06/03/2025 11:42 PM EDT CBC W/ AUTO DIFF STAT 06/03/2025 11:4 2 PM EDT EKG-SCANNED 06/03/2025 EKG-SCANNED 06/03/2025 from Last 3 Months Results * Glucose, Nova Meter (06/11/2025 3:46 PM EDT) Only the most recent of32 resultswithin the time period is included. [facility] POC-GLUCOSE 86 70 - 110 mg/dL 06/11/2025 3:55 PM EDT [facility] Comment:In the event of poor peripheral blood flow, venous or arterial blood should be used due to the potential of erroneous results. Weatherization Installer [id number] 06/11/2025 3:55 PM EDT [facility] Blood WHOLE BLOOD / Unknown 06/11/2025 3:46 PM EDT 06/11/2025 3:55 PM EDT Narrative [facility] - 06/11/2025 3:55 PM EDT Notified RN/MD us Charity Steiner MD POINT OF CARE TEST ORDERABLES Fi nal Result [facility] [address] [phone] * (ABNORMAL) CBC with automated diff (06/11/2025 4:35 AM EDT) Only the most recent of9 resultswithin the time period is included. [facility] WBC 6.0 4.0 - 10.0 K/ L 06/11/2025 5:07 AM EDT [facility] RBC 3.11(L) 3.93 - 5.22 M/ L 06/11/2025 5:07 AM EDT [facility] Hemoglobin 9.4(L) 11.2 - 15.7 GM/DL 06/11/2025 5:07 AM EDT [facility] Hematocrit 28.5(L) 34.1 - 44.9 % 06/11/2025 5:07 AM EDT [facility] MCV 92 79 - 95 fL 06/11/2025 5:07 AM EDT [facility] MCH 30.2 25.6 - 32.2 pg 06/11/2025 5:07 AM EDT [facility] MCHC 33.0 32.2 - 35.5 GM/DL 06/11/2025 5:07 AM EDT [facility] RDW 16.9(H) 11.7 - 14.4 % 06/11/2025 5:07 AM EDT [facility] Platelets 246 140 - 375 K/CU MM 06/11/2025 5:07 AM EDT [facility] MPV 11.7 9.4 - 12.3 fL 06/11/2025 5:07 AM EDT [facility] % Neutros 60 34 - 71 % 06/11/2025 5:07 AM EDT [facility] % Lymphs 20 19 - 52 % 06/11/2025 5:07 AM EDT [facility] % Monos 13 5 - 13 % 06/11/2025 5:07 AM EDT [facility] % Eos 3.7 1.0 - 6.0 % 06/11/2025 5:07 AM EDT [facility] % Baso 1 0 - 1 % 06/11/2025 5:07 AM EDT [facility] NRBC Absolute <0.01 0 - 0.012 K/ul 06/11/2025 5:07 AM EDT [facility] # Neutros 3.59 1.56 - 6.13 K/ L 06/11/2025 5:07 AM EDT [facility] # Lymphs 1.18 1.18 - 3.74 K/ L 06/11/2025 5:07 AM EDT [facility] # Monos 0.78 0.24 - 0.86 K/ L 06/11/2025 5:07 AM EDT [facility] # Eos 0.22 0.04 - 0.36 K/ L 06/11/2025 5:07 AM EDT [facility] # Baso 0.04 0.01 - 0.08 K/ L 06/11/2025 5:07 AM EDT [facility] % Imm Grans 3.50(H) 0.01 - 0.43 % 06/11/2025 5:07 AM EDT [facility] # IG 0.21(H) 0.00 - 0.03 K/uL 06/11/2025 5:07 AM EDT [facility] Blood Venipuncture / Unknown 06/11/2025 4:35 AM EDT 06/11/2025 4:54 AM EDT Narrative [facility] - 06/11/2025 5:07 [...] MD LAB BLOOD ORDERABLES Final Resul t [facility] [address] [phone] * (ABNORMAL) Basic Metabolic Panel (06/11/2025 4:35 AM EDT) Only the most recent of9 resultswithin the time period is included. Sodium 142 136 - 145 meq/L 06/11/2025 5:24 AM EDT [facility] Potassium 4.2 3.4 - 5.1 meq/L 06/11/2025 5:24 AM EDT [facility] CO2 28 22 - 29 meq/L 06/11/2025 5:24 AM EDT [facility] Chloride 102 98 - 112 meq/L 06/11/2025 5:24 AM EDT [facility] Glucose 82 82 - 115 mg/dL 06/11/2025 5:24 AM EDT [facility] BUN 54.3(H) 9.8 - 20.1 mg/dL 06/11/2025 5:24 AM EDT [facility] Creatinine 2.40(H) 0.50 - 1.20 mg/dL 06/11/2025 5:24 AM EDT [facility] BUN/Creatinine 23(H) 8 - 20 06/11/2025 5:24 AM EDT [facility] Calcium 9.2 8.4 - 10.2 mg/dL 06/11/2025 5:24 AM EDT [facility] Anion Gap 16(H) 4 - 12 06/11/2025 5:24 AM EDT [facility] eGFR (mL/min/1.73m2) 19(L) >=60 mL/min/1.7 3m2 06/11/2025 5:24 AM EDT [facility] Comment:ESTIMATED GFR IS NOT ACCURATE CREATININE CLEARANCE IN PREDICTING GLOMERULAR FILTRATION RATE. ESTIMATED GFR IS NOT APPLICABLE FOR DIALYSIS PATIENTS. Osmolality Calc 297.1 mOsm/kg 5:24 AM EDT [facility] Blood Venipuncture / Unknown 06/11/2025 4:35 AM EDT 06/11/2025 4:52 AM EDT us Charity Steiner MD LAB BLOOD ORDERABLES Final Resul t [facility] [address] [phone] * Potassium (06/10/2025 11:08 AM EDT) Potassium 3.9 3.4 - 5.1 meq/L 06/10/2025 1:48 PM EDT [facility] Blood Venipuncture / Unknown 06/10/2025 11:08 AM EDT 06/10/2025 11:11 AM EDT us Charity Steiner MD LAB BLOOD ORDERABLES Final Resul t [facility] [address] [phone] * ECG 12 lead (06/10/2025 9:57 AM EDT) Only the most recent of8 resultswithin the time period is included. VENTRICULAR RATE EKG/MIN 56 BPM GE MUSE ATRIAL RATE (MCT) 56 BPM GE MUSE RI Interval 228 ms GE MUSE QRS-INTERVAL (MSEC) 126 ms GE MUSE QT Interval 450 ms GE MUSE QTC Interval 434 ms GE MUSE P [place] 8 degrees GE MUSE R AXIS (MCT) 25 degrees GE MUSE T Wave [place] 0 degrees GE MUSE [place] Diagnosis Sinus bradycardia with 1st degree AV [...] ECG ORDERABLES Final Result Performing Organization Address City/[facility]/ZIP Co de Phone Number GE MUSE * Magnesium (06/10/2025 3:43 AM EDT) Only the most recent of6 resultswithin the time period is included. Magnesium 1.6 1.6 - 2.6 mg/dL 06/10/2025 4:21 AM EDT [facility] Blood Venipuncture / Unknown 06/10/2025 3:43 AM EDT 06/10/2025 3:56 AM EDT us Charity Steiner MD LAB BLOOD ORDERABLES Final Resul t [facility] [address] [phone] * XR KUB PORTABLE (06/08/2025 10:23 PM [...] UA Light Yellow 06/04/2025 7:33 PM EDT [facility] Clarity, UA Turbid(A) Clear 06/04/2025 7:33 PM EDT [facility] Specific [place], UA 1.013 1.005 - 1.030 06/04/2025 7:33 PM EDT [facility] pH, UA 5.5(L) 6.0 - 8.0 06/04/2025 7:33 PM EDT [facility] Leukocytes, UA 250 Danielle/uL(A) Negative 06/04/2025 7:33 PM EDT [facility] Nitrite, UA Negative Negative 06/04/2025 7:33 PM EDT [facility] Protein, UA Trace(A) Negative 06/04/2025 7:33 PM EDT [facility] Glucose, UA 2+(A) Normal 06/04/2025 7:33 PM EDT [facility] Ketones, UA Negative Negative 06/04/2025 7:33 PM EDT [facility] Urobilinogen, UA Normal Normal 06/04/20 7:33 PM EDT [facility] Bilirubin, UA Negative Negative 06/04/2025 7:33 PM EDT [facility] Blood, UA 3+(A) Negative 06/04/2025 7:33 PM EDT [facility] RBC, UA 51-100(A) None Seen /HPF 06/04/2025 7:33 PM EDT [facility] WBC, UA 21-50(A) None Seen /HPF 06/04/2025 7:33 PM EDT [facility] Bacteria, UA 1+(A) None Seen, Trace 06/04/2025 7:33 PM EDT [facility] Mucus 1+(A) None Seen 06/04/2025 7:33 PM EDT [facility] SQUAMOUS EPITHELIAL 0-2(A) None Seen /HPF 06/04/2025 7:33 PM EDT [facility] RENAL EPITHELIAL 0-2(A) None Seen /HPF 06/04/2025 7:33 PM EDT [facility] TRANSITIONAL EPITHELIAL CELLS 0-2(A) None Seen /HPF 06/04/2025 7:33 PM EDT [facility] HYALINE CASTS 3-5(A) None Seen /LPF 06/04/2025 7:33 PM EDT [facility] Specimen Source Urine, Ramirez 06/04/2025 7:33 PM EDT [facility] Urine URINE SPECIMEN COLLECTION, CATHETERIZED / Unknown 06/04/2025 6:56 PM EDT 06/04/2025 7:17 PM EDT us Octavio Odell MD URINE ORDERABLES Final Result [facility] 1 [place] [address], [facility] [phone] * (ABNORMAL) Renal Function Panel (06/04/2025 5:59 PM EDT) Only the most recent of2 resultswithin the time period is included. Glucose 143(H) 82 - 115 mg/dL 06/04/2025 6:37 PM EDT [facility] BUN 77.1(H) 9.8 - 20.1 mg/dL 06/04/2025 6:37 PM EDT [facility] Creatinine 5.22(H) 0.57 - 1.11 mg/dL 06/04/2025 6:37 PM EDT [facility] BUN/Creatinine 15 8 - 20 06/04/2025 6:37 PM EDT [facility] eGFR (mL/min/1.73m2) 8(L) >=60 mL/min/1.7 3m2 06/04/2025 6:37 PM EDT [facility] Comment:ESTIMATED GFR IS NOT ACCURATE CREATININE CLEARANCE IN PREDICTING GLOMERULAR FILTRATION RATE. ESTIMATED GFR IS NOT APPLICABLE FOR DIALYSIS PATIENTS. Sodium 141 136 - 145 meq/L 06/04/2025 6:37 PM EDT [facility] Potassium 5.7(H) 3.4 - 5.1 meq/L 06/04/2025 6:37 PM EDT [facility] Chloride 101 98 - 112 meq/L 06/04/2025 6:37 PM EDT [facility] CO2 24 22 - 29 meq/L 06/04/2025 6:37 PM EDT [facility] Anion Gap 22(H) 4 - 12 06/04/2025 6:37 PM EDT [facility] Calcium 9.1 8.4 - 10.2 mg/dL 06/04/2025 6:37 PM EDT [facility] Albumin 2.5(L) 3.5 - 5.0 g/dL 06/04/2025 6:37 PM EDT [facility] Phosphorus 5.3(H) 2.5 - 4.5 mg/dL 06/04/2025 6:37 PM EDT [facility] Osmolality Calc 306.7 mOsm/kg 6:37 PM EDT [facility] Blood ENTIRE RIGHT UPPER ARM / Unknown Venipuncture / Unknown 06/04/2025 5:59 PM EDT 06/04/2025 6:06 PM EDT Narrative [facility] - 06/04/2025 6:37 PM EDT Specimen slightly hemolyzed us Holger Mishra MD LAB BLOOD ORDERABLES Final Resul t [facility] [address] [phone] * Ultrasound renal limited (06/04/2025 1:28 PM [...] by Maryam Duran PA-C. Steffen Juan PA-C [employer] US ORDERABLES Final Result * Respiratory Panel (06/04/2025 1:23 PM EDT) ADENOVIRUS Not detected Not detected 06/04/2025 3:27 PM EDT [facility] CORONAVIRUS 229E Not detected Not detected 06/04/2025 3:27 PM EDT [facility] CORONAVIRUS HKU1 Not detected Not detected 06/04/2025 3:27 PM EDT [facility] CORONAVIRUS NL63 Not detected Not detected 06/04/2025 3:27 PM EDT [facility] CORONAVIRUS OC43 Not detected Not detected 06/04/2025 3:27 PM EDT [facility] SARS-COV2/RT-PCR Not Detected Not Detected 06/04/2025 3:27 PM EDT [facility] HUMAN METAPNEUMOVIRUS Not detected Not detected 06/04/2025 3:27 PM EDT [facility] HUMAN RHINOVIRUS/ENTEROV IRUS Not detected Not detected 06/04/2025 3:27 PM EDT [facility] INFLUENZA A Not detected Not detected 06/04/2025 3:27 PM EDT [facility] INFLUENZA B Not detected Not detected 06/04/2025 3:27 PM EDT [facility] PARAINFLUENZA VIRUS 1 Not detected Not detected 06/04/2025 3:27 PM EDT [facility] PARAINFLUENZA VIRUS 2 Not detected Not detected 06/04/2025 3:27 PM EDT [facility] PARAINFLUENZA VIRUS 3 Not detected Not detected 06/04/2025 3:27 PM EDT [facility] PARAINFLUENZA VIRUS 4 Not detected Not detected 06/04/2025 3:27 PM EDT [facility] RESPIRATORY SYNCYTIAL VIRUS Not detected Not detected 06/04/2025 3:27 PM EDT [facility] BORDETELLA PARAPERTUSSIS Not detected Not detected 06/04/2025 3:27 PM EDT [facility] BORDETELLA PERTUSSIS Not detected Not detected 06/04/2025 3:27 PM EDT [facility] CHLAMYDIA PNEUMONIAE Not detected Not detected 06/04/2025 3:27 PM EDT [facility] MYCOPLASMA PNEUMONIAE Not detected Not detected 06/04/2025 3:27 PM EDT [facility] Nasopharyngeal NASOPHARYNGEAL SWAB / Unknown 06/04/2025 1:23 PM EDT 06/04/2025 1:36 PM EDT [facility] - 06/04/2025 3:27 PM EDT Testing was performed with RT-PCR methodology using the [employer] Respiratory Panel 2.1 which has FDA De [...] decisions. This sample was tested at the [facility] using the [employer]oo[employer] Respiratory Panel. It is FDA cleared and has been verified and approved by the [facility] for clinical use on nasopharyngeal swab specimens. The performance of the FilmArray RP has not been established in individuals who received influenza vaccine. Recent administration of a nasal influenza vaccine may cause false positive results for Influenza A and/or Influenza B. Octavio Odell MD MICROBIOLOGY - GENERAL ORDERA BLES Final Result Performing Organization Address [facility] Co de Phone Number [facility] [address] [phone] * MRSA Screen (06/04/2025 1:23 PM EDT) [facility] MRSA by PCR [facility] MRSA Not Detected by PCR MRSA Not Detected by PCR DEVICE ID9 06/04/2025 3:27 PM EDT [facility] Nasal BOTH ANTERIOR NARES / Unknown 06/04/2025 1:23 PM EDT 06/04/2025 1:36 PM EDT Octavio Odell MD MICROBIOLOGY - GENERAL ORDERA BLES Final Result Performing Organization Address [facility] de Phone Number [facility] [address] [phone] * ECHO COMPLETE (DOPPLER / COLOR) W CONTRAST (06/04/2025 1:05 PM EDT) Anatomical Region Laterality Modality Heart Vascular Ultraso und 06/04/2025 12:5 4 PM EDT Narrative 06/04/2025 2:42 PM EDT TRANSTHORACIC ECHOCARDIOGRAPHY REPORT Demographics Patient Name: ULISES VELASCO : 1940 Age: 84 year(s) Corporate ID Number: [id number] Gender Female Doctor Of Radiology: Neena DEL ANGEL Height: 67 inches Referring Physician: DEONTE WILCOX Weight: 191 pounds Interpreting Physician: TAMI SIMON MD BMI: 29.91 kg/m^2 Date of Service: 06/04/2025 Blood Pressure: 127/93 mmHg Room Number: CCU 7 Type of Study: TTE procedure: ECHO COMPLETE (DOPPLER / COLOR) W OR WO CONTRAST. HR: 60 bpmPatient Status: Routine IP [facility]quate visualization History/Tech Notes: Indication: altered [...] 1.16 m/s E/A ratio: 0.83 m/s Volume pttxjrrub95.89 LV length: 7.95 cm CO: 5.84 l/min ml CI: 2.95 l/min*m^2 Volume fcfvpkwo45.77 ml LVOT diameter: 2.11 cm Normal sized [...] Valve TR velocity: 2.06 m/s TR gradient: 16.50570 mmHg Estimated RAP: 8 mmHg RVSP: 24.99 [...] 1940 Age: 84 year(s) Corporate ID Number: [id number] Gender Female Doctor Of Radiology: Neena DEL ANGEL Height: 67 inches Referring Physician: DEONTE WILCOX Weight: 191 pounds Interpreting Physician: TAMI SIMON MD BMI: 29.91kg/m^2 Date of Service: 06/04/2025 Blood Pressure: 127/93 mmHg Room Number: CCU 7 Type of Study: TTE procedure: ECHO COMPLETE (DOPPLER / COLOR) W OR WO CONTRAST. HR: 60 bpmPatient Status: Routine IP [facility]: Adequate visualization History/Tech Notes: Indication: altered [...] 1.16 m/s E/A ratio: 0.83 m/s Volume whtvneltc40.89 LV length: 7.95 cm CO: 5.84 l/min ml CI: 2.95 l/min*m^2 Volume xyzbjzvy86.77 ml LVOT diameter: 2.11 cm Normal sized [...] Valve TR velocity: 2.06 m/s TR gradient: 16.57447 mmHg Estimated RAP: 8 mmHg RVSP: 24.99 [...] CV ECHO ORDERABLES Final Resu lt * [id number] Activity(SENDOUT) (06/04/2025 10:58 AM EDT) PJBAWQ23 Activity 80 >=61 % 025 10:24 AM EDT [facility] Comment: INTERPRETIVE INFORMATION: ESCQHM28 Activity QCUFWI72 levels of less than 10 percent may be associated with either inherited (Lynda-Brad Syndrome) or acquired thrombotic thrombocytopenic purpura (TTP). A variety of medical conditions may result in a mild to moderate deficiency of OZXWKN92 activity. Recent plasma exchange therapy may raise the observed PGIJCV63 activity. This test was developed and its performance characteristics determined by [facility]. It has not been cleared or approved by the US Food and Drug Administration. This test was performed in a CLIA certified laboratory and is intended for clinical purposes. Performed By: [facility] [address] [place] [address] Roller Skate Repairer: Adolfo oHffman MD, PhD CLIA Number: [id number] Blood Venipuncture / Unknown 06/04/2025 10:58 AM EDT 06/04/2025 10:58 AM EDT Holger Mishra MD LAB BLOOD ORDERABLES Final Resul t [facility] [address] [place] [address], [facility] [phone] * SHAYAN Reflexive Profile(SENDOUT) (06/04/2025 10:57 AM EDT) Anti-Nuclear Ab (SHAYAN), IgG by NORM None Detected None Detected 06/07/2025 10:36 AM EDT [facility] Comment: No Anti-Nuclear Antibodies (SHAYAN) detected by NORM. The Extractable Nuclear Antigen Antibodies (FREELANCE [address] REPORTER, Starks, SSA 52, SSA 60, Scleroderma, Ana Cristina-1 and SSB) and Double Stranded DNA (dsDNA) Antibody, IgG will not be performed. If suspicion of connective tissue disease is strong, and SHAYAN is negative by NORM, consider testing for SHAYAN by IFA ([id number]). INTERPRETIVE INFORMATION: Anti-Nuclear Antibodies (SHAYAN), IgG by NORM Antinuclear Antibodies (SHAYAN), IgG by NORM: SHAYAN specimens are screened using enzyme-linked immunosorbent assay (NORM) methodology. All NORM results reported as Detected are further tested by indirect fluorescent assay (IFA) using HEp-2 substrate with an IgG-specific conjugate. The SHAYAN NORM screen is designed to detect antibodies against dsDNA, histones, SS-A (Ro), SS-B ([place]), Starks, Starks/FREELANCE COURT REPORTER, Scl-70, Ana Cristina-1, centromeric proteins, other antigens extracted from the HEp-2 cell nucleus. SHAYAN NORM assays have been reported to have lower sensitivities than SHAYAN IFA for systemic autoimmune rheumatic diseases (SARD). Negative results do not necessarily rule out SARD. Performed By: [facility] [address] [place] [address] Roller Skate Repairer: Adolfo Hoffman MD, PhD CLIA Number: [id number] Blood Venipuncture / Unknown 06/04/2025 10:57 AM EDT 06/04/2025 10:57 AM EDT Holger Mishra MD LAB BLOOD ORDERABLES Final Resul t [facility] [address] [place] [address], [facility] [phone] * Complement Components 3 and 4(SENDOUT) (06/04/2025 10:53 AM EDT) Complement Component 3 109 90 - 180 mg/dL 06/06/2025 2:24 AM EDT [facility] Comment: REFERENCE INTERVAL: Complement Component 3 Access complete set of age- and/or gender-specific reference intervals for this test in the [facility] ([facility]). Complement Component 4 30 10 - 40 mg/dL 06/06/2025 2:24 AM EDT [facility] Comment: REFERENCE INTERVAL: Complement Component 4 Access complete set of age- and/or gender-specific reference intervals for this test in the [facility] ([facility]). Performed By: [facility] [address] [place] [address] Roller Skate Repairer: Adolfo Hoffman MD, PhD CLIA Number: [id number] Blood Venipuncture / Unknown 06/04/2025 10:53 AM EDT 06/04/2025 10:53 AM EDT us Holger Mishra MD LAB BLOOD ORDERABLES [place] [address], [facility] [phone] * Procalcitonin (06/04/2025 5:02 AM EDT) Procalcitonin 0.23 See Comment ng/mL 06/04/2025 10:38 AM EDT [facility] Comment: Sepsis comment [...] AM EDT 06/04/2025 5:02 AM EDT Narrative [facility] - 06/04/2025 10:38 AM EDT Specimen slightly hemolyzed us Octavio Odell MD LAB BLOOD ORDERABLES Final Re sult [facility] [address] [phone] * (ABNORMAL) PROBNP (06/04/2025 5:02 AM EDT) ProBNP (pg/mL) 5,625(H) 16 - 956 pg/mL 06/04/2025 10:38 AM EDT [facility] Blood Venipuncture / Unknown 06/04/2025 5:02 AM EDT 06/04/2025 5:02 AM EDT Narrative [facility] - 06/04/2025 10:38 AM EDT As of January 14, 2025: NT-ProBNP is a new test on our [employer] Alinity Immunoassay analyzer. Please review new age and gender specific reference ranges. us Octavio Odell MD LAB BLOOD ORDERABLES Final Re sult [facility] [address] [place] [address], [facility] [phone] * (ABNORMAL) Iron and TIBC (06/04/2025 5:02 AM EDT) Iron 101 50 - 170 ug/dL 06/04/2025 6:16 AM EDT [facility] TIBC 244(L) 250 - 435 ug/dL 06/04/2025 6:16 AM EDT [facility] % Saturation 41 % 06/04/2025 6:16 AM EDT [facility] UIBC 143 06/04/2025 6:16 AM EDT [facility] Blood Venipuncture / Unknown 06/04/2025 5:02 AM EDT 06/04/2025 5:02 AM EDT Narrative [facility] - 06/04/2025 6:16 AM EDT Specimen slightly hemolyzed us Sima Mancia MD LAB BLOOD ORDERABLES Final Re sult [facility] [address] [place] [address], [facility] [phone] * (ABNORMAL) Lactate dehydrogenase (LDH) (06/04/2025 5:02 AM EDT) LDH 431(H) 125 - 220 U/L 06/04/2025 9:08 AM EDT [facility] Blood Venipuncture / Unknown 06/04/2025 5:02 AM EDT 06/04/2025 5:02 AM EDT Narrative [facility] - 06/04/2025 9:08 AM EDT Specimen slightly hemolyzed Holger Mishra MD LAB BLOOD ORDERABLES Final Resul t [facility] [address] [phone] * Ferritin (06/04/2025 5:02 AM EDT) Ferritin 162.66 4.63 - 204.00 ng/mL 06/04/2025 6:16 AM EDT [facility] Blood Venipuncture / Unknown 06/04/2025 5:02 AM EDT 06/04/2025 5:02 AM EDT Narrative [facility] - 06/04/2025 6:16 AM EDT Specimen slightly hemolyzed Sima Mancia MD LAB BLOOD ORDERABLES Final Re sult Performing Organization Address City/[facility]/ZIP Co de Phone Number [facility] [address] [phone] * (ABNORMAL) Vitamin B12 (06/04/2025 5:02 AM EDT) Vitamin B12 >2,000(H) 213 - 816 pg/mL 06/04/2025 6:19 AM EDT [facility] Blood Venipuncture / Unknown 06/04/2025 5:02 AM EDT 06/04/2025 5:02 AM EDT Narrative [facility] - 06/04/2025 6:19 AM EDT Specimen slightly hemolyzed Sima Mancia MD LAB BLOOD ORDERABLES Final Re sult [facility] [address] [phone] * (ABNORMAL) Comprehensive metabolic panel (06/04/2025 5:02 AM EDT) Sodium 145 136 - 145 meq/L 06/04/2025 6:18 AM [facility] Potassium 6.5(HH) 3.4 - 5.1 meq/L 06/04/2025 6:18 AM [facility] Chloride 110 98 - 112 meq/L 06/04/2025 6:18 AM [facility] CO2 17(L) 22 - 29 meq/L 06/04/2025 6:18 AM [facility] Calcium 8.7 8.4 - 10.2 mg/dL 06/04/2025 6:18 AM [facility] Glucose 116(H) 82 - 115 mg/dL 06/04/2025 6:18 AM [facility] BUN 79.5(H) 9.8 - 20.1 mg/dL 06/04/2025 6:18 AM [facility] Creatinine 5.35(H) 0.57 - 1.11 mg/dL 06/04/2025 6:18 AM [facility] BUN/Creatinine 15 8 - 20 06/04/2025 6:18 AM [facility] eGFR (mL/min/1.73m2) 7(L) >=60 mL/min/1. 73m2 06/04/2025 6:18 AM [facility] Comment:ESTIMATED GFR IS NOT ACCURATE CREATININE CLEARANCE IN PREDICTING GLOMERULAR FILTRATION RATE. ESTIMATED GFR IS NOT APPLICABLE FOR DIALYSIS PATIENTS. Albumin 2.5(L) 3.5 - 5.0 g/dL 06/04/2025 6:18 AM [facility] Alkaline Phosphatase 63 40 - 150 U/L 06/04/2025 6:18 AM [facility] ALT 10 <=34 U/L 06/04/2025 6:18 AM [facility] Comment: ALT2 reagent used for testing does not contain P5P supplementation and therefore may miss ALT elevations in patients with B6 deficiency. This population may be as high as 10% in the [place], with risk factors including malabsorption, drug interactions, and alcoholic hepatitis. AST 36(H) 11 - 34 U/L 06/04/2025 6:18 AM EDT [facility] Comment: AST2 reagent used for testing does not contain P5P supplementation and therefore may miss AST elevations in patients with B6 deficiency. This population may be as high as 10% in the [place], with risk factors including malabsorption, drug interactions, and alcoholic hepatitis. Total Bilirubin 0.5 0.2 - 1.2 mg/dL 06/04/2025 6:18 AM EDT [facility] Protein, Total 6.3(L) 6.4 - 8.3 g/dL 06/04/2025 6:18 AM EDT [facility] Globulin 3.8 2.5 - 4.1 g/dL 06/04/2025 6:18 AM EDT [facility] Anion Gap 25(H) 4 - 12 06/04/2025 6:18 AM EDT [facility] A/G Ratio 0.7 0.7 - 1.9 06/04/2025 6:18 AM EDT [facility] Osmolality Calc 313.5 mOsm/kg 6:18 AM EDT [facility] Blood Venipuncture / Unknown 06/04/2025 5:02 AM EDT 06/04/2025 5:02 AM EDT [facility] - 06/04/2025 6:18 AM EDT Specimen slightly hemolyzed us Steffen Juan PA-C LAB BLOOD ORDERABLES Final Res ult Performing Organization Address City/State/[facility] Co de Phone Number [facility] [address] [phone] * Strep pneumoniae urine antigen (06/03/2025 11:50 PM EDT) Strep pneumoniae Antigen Presumptive negative for pneumococcal pneumonia - see comment Presumptive negative for pneumococcal pneumonia- see comment 06/04/2025 12:12 AM EDT [facility] Urine URINE / Unknown 06/03/2025 1 1:50 PM EDT 06/03/2025 11:50 PM EDT [facility] - 06/04/2025 12:12 AM EDT A presumptive negative result suggests no current or recent pneumococcal infection. Infection due to S. pneumoniae cannot be ruled out since the antigen present in the specimen may be below the detection limit of the test. us Sima Mancia MD MICROBIOLOGY - GENERAL ORDERA BLES Final Result Performing Organization Address [facility] Co de Phone Number [facility] [address] [phone] * Urea Nitrogen, random urine (06/03/2025 11:50 PM EDT) Urea Nitrogen, Ur 328 mg/dL 06/04/2025 12:14 AM EDT [facility] Comment: Reference Range not established Reference range not established Urine 06/03/2025 11:5 0 PM EDT 06/03/2025 11:50 PM EDT us Sima Mancia MD URINE ORDERABLES Final Result Performing Organization Address [facility] de Phone Number [facility] [address] [phone] * Legionella antigen, urine (06/03/2025 11:50 PM EDT) Legionella Urine Antigen Presumptive negative for L. pneumophila serogroup 1 antigen in urine- see comment Presumptive negative for L. pneumophila serogroup 1 antigen in urine- see comment 06/04/2025 12:12 AM EDT [facility] Urine 06/03/2025 11:5 0 PM EDT 06/03/2025 11:50 PM EDT Narrative [facility] - 06/04/2025 12:12 [...] URINE ORDERABLES Final Result Performing Organization Address [facility]/ZIP Co de Phone Number [facility] [address] [phone] * Sodium, random urine (06/03/2025 11:50 PM EDT) Sodium Urine 109 See Comment meq/L 06/04/2025 12:14 AM EDT [facility] Comment:Reference Range not established Urine 06/03/2025 11:5 0 PM EDT 06/03/2025 11:50 PM EDT Steffen Juan PA-C URINE ORDERABLES Final Result Performing Organization Address [facility] Co de Phone Number [facility] [address] [phone] * (ABNORMAL) Protein, random urine (06/03/2025 11:50 PM EDT) Protein, Urine 15(H) 1 - 14 mg/dL 06/04/2025 12:14 AM EDT [facility] Comment:No normal reference range established Urine 06/03/2025 11:5 0 PM EDT 06/03/2025 11:50 PM EDT Steffen Juan PA-C URINE ORDERABLES Final Result Performing Organization Address [facility] Co de Phone Number [facility] 1 [place] [address], [facility] [phone] * (ABNORMAL) Creatinine, random urine (06/03/2025 11:50 PM EDT) Creatinine, Ur 39.00(L) 47.00 - 110.00 mg/dL 06/04/2025 12:14 AM EDT [facility] Urine 06/03/2025 11:5 0 PM EDT 06/03/2025 11:50 PM EDT us Steffen Neri Juan PA-C URINE ORDERABLES Final Result Performing Organization Address [facility]/ZIP Co de Phone Number [facility] [address] [phone] * Chloride, random urine (06/03/2025 11:50 PM EDT) ChlorideUr 109 See Comment mmol/L 06/04/2025 12:17 AM EDT [facility] Comment:Reference range not established Urine 06/03/2025 11:5 0 PM EDT 06/03/2025 11:50 PM EDT us Sima Mancia MD URINE ORDERABLES Final Result Performing Organization Address [facility] Co de Phone Number [facility] [address] [phone] * Phosphorus (06/03/2025 11:43 PM EDT) Phosphorus 4.4 2.5 - 4.5 mg/dL 06/04/2025 12:07 AM EDT [facility] Blood Venipuncture / Unknown 06/03/2025 11:43 PM EDT 06/03/2025 11:47 PM EDT us Steffen MIMS-C LAB BLOOD ORDERABLES Final Res ult Performing Organization Address [facility] Co de Phone Number [facility] 1 [place] [address], [facility] [phone] * Creatine Kinase (CK) (06/03/2025 11:43 PM EDT) Total CK 62 29 - 168 U/L 06/04/2025 12:07 AM EDT [facility] Blood Venipuncture / Unknown 06/03/2025 11:43 PM EDT 06/03/2025 11:47 PM EDT Steffen Juan PA-C LAB BLOOD ORDERABLES Final Res ult [facility] [address] [phone] * (ABNORMAL) CBC Scan (06/03/2025 11:42 PM EDT) Platelet Estimate Decreased( A) Adequate 06/04/2025 12:48 AM EDT [facility] RBC Morphology Normal Normal 06/04/2025 12:48 AM EDT [facility] Blood Venipuncture / Unknown 06/03/2025 11:42 PM EDT 06/03/2025 11:47 PM EDT us Steffen Juan PA-C LAB BLOOD ORDERABLES Final Res ult Performing Organization Address [facility]/ZIP Co de Phone Number [facility] [address] [phone] * (ABNORMAL) Lactic Acid with reflex (SJ) (06/03/2025 11:42 PM EDT) Lactic Acid Level (mmol/L) 2.4(HH) 0.5 - 2.2 mmol/L 06/04/2025 12:13 AM EDT [facility] Blood Venipuncture / Unknown 06/03/2025 11:42 PM EDT 06/03/2025 11:47 PM EDT us Steffen Juan PA-C LAB BLOOD ORDERABLES Final Res ult Performing Organization Address [facility]/ZIP Co de Phone Number [facility] [address] [phone] * EKG-SCANNED (06/03/2025) Only the most recent of2 resultswithin the time period is included. Narrative 06/03/2025 Ordered by an unspecified provider. us Default Scanning Provider SCAN ORDERS Final Result from Last 3 Months Insurance [place] [id number] MEDICARE PART A B CROSS/BLUE SHIELD Advance Directives For more information, please contact: [phone] Documents on File Type Date Recorded Patient Orange Picker Expl anation Advance Directives and Living Will 06/04/2025 Durable Power of Community Development Planner Advance Directives and Living Will 06/03/2025 Power of Community Development Planner 06/03/2025 * Full Code (Latest Code Status on File) Date Activated Date Inactivated Comments 06/04/2025 3:12 AM 06/11/2025 6:37 PM Care Teams Edge Cutter Relationship Specialty Start Date End Date Allan Adamson MD [address] [place] [phone] PCP - General Family Medicine 06/11/25
--- OUTSIDE RECORDS SUMMARY | 2025-08-11 19:20 | XMS_ITS ---
Author Organization Unknown ENCOUNTERS Encounter Performer Location Date Diagnosis Diagnosis Status Emergency [facility] [address] [place] [address] [id number] Pre Admit [facility] [address] [place] [address] [id number] Emergency [facility] [address] [place] [address] [id number] XOTH Pre Admit [facility] [address] [place] [address] [id number] Inpatient [facility] [address] [place] [address] [id number] XSNF Outpatient [facility] [address] [place] [address] [id number] Emergency [facility] [address] [place] [address] [id number] Pre Admit [facility] [address] [place] [address] [id number] Inpatient [facility] [address] [place] [address] [id number] XSNF Emergency [facility] [address] [place] [address] [id number] A Pre Admit [facility] [address] [place] [address] [id number] Emergency [facility] [address] [place] [address] [id number] PEREZ Pre Admit [facility] [address] [place] [address] [id number] Outpatient [facility] [address] [place] [address] [id number] Inpatient Allan Columbia [facility] [address] [place] [address] [id number] XSNF Emergency Claudia Henderson [facility] [address] [place] [address] [id number] Pre Admit [facility] [address] [place] [address] [id number] Inpatient Allan Hazard [facility] [address] [place] [address] [id number] XSNF Emergency [facility] [address] [place] [address] [id number] Pre Admit [facility] [address] [place] [address] [id number] Outpatient [facility] [address] [place] [address] [id number] PEREZ Emergency [facility] [address] [place] [address] [id number] A Pre Admit [facility] [address] [place] [address] [id number] Outpatient [facility] [address] [place] [address] [id number] PEREZ Emergency J [facility] [address] [place] [address] [id number] A Pre Admit [facility] [address] [place] [address] [id number] Inpatient Allan Hazard [facility] [address] [place] [address] [id number] XSNF Emergency [facility] [address] [place] [address] [id number] A Pre Admit [facility] [address] [place] [address] [id number] PAT Inpatient [facility] [address] [place] [address] [id number] [facility] Outpatient [facility] [address] [place] [address] [id number] Pre Admit [facility] [address] [facility] [address] [place] [address] [id number] Emergency [address] [place] [address] [id number] A *Note: Encounters from your own facility or health system may be excluded. Allergies, Adverse Reactions, Alerts Allergen Type Severity Identification Date azithromycin drug allergy 1 [id number] pollen extracts drug allergy 3 [id number] ceftriaxone drug allergy 1 [id number] Medications Name Date Quantity Days Supplied [facility] Number
--- OUTSIDE RECORDS SUMMARY | 2025-08-11 19:20 | XMS_ITS | Clinical Summary ---
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 Active nsgxoybd-bpu-YQ -lycopen-lutein ([employer] Senior) 0.4 mg-300 mcg- 250 [...] (20 mg total) by mouth daily. Active Active Problems Problem Noted Date Diagnosed Date Acute renal failure (ARF) 06/03/2025 Encounters Date Type Department Care Team Description 06/04/2025 Travel 06/03/2025 10:40 PM EDT - 06/11/2025 5:36 PM EDT Hospital Encounter [address] Medical Telemetry Unit 1 [place] [address] Sima Mancia MD Kredan, Tawf[place], MD Lewis, Paige, MD Acute renal failure, unspecified acute renal failure type (HCC) (Primary Dx) Discharge Disposition: Snf Facility from Last 3 Months Social History [...] your living situation today? I have a [facility] place [facility] 06/04/2025 Think about the [...] Do you speak a language other than Togolese at ho me? No 06/04/2025 Do you [...] 10/29/2013 Falls Risk Screening 08/26/2024 COVID-19 VACCINE (8 2023-2 5 season) 2025 06/09/2024, 06/05/2023, 06/06/2022, Additional [...] POC Routine 06/04/2025 11:3 7 AM EDT [id number] ACTIVITY(SENDOUT) Routine 06/04/2025 10:58 AM EDT RENAL [...] METABOLIC PANEL STAT 06/03/2025 11:43 PM EDT [facility] CBC SCAN Routine 06/03/2025 11:42 PM EDT LACTIC ACID WITH REFLEX STAT 06/03/2025 11:42 PM EDT CBC W/ AUTO DIFF STAT 06/03/2025 11:4 2 PM EDT EKG-SCANNED 06/03/2025 EKG-SCANNED 06/03/2025 from Last 3 Months Results * Glucose, Nova Meter (06/11/2025 3:46 PM EDT) Only the most recent of32 resultswithin the time period is included. POC-GLUCOSE 86 70 - 110 mg/dL 06/11/2025 3:55 PM EDT [facility] Comment:In the event of poor peripheral blood flow, venous or arterial blood should be used due to the potential of erroneous results. 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 WBC 6.0 4.0 - 10.0 K/ L 06/11/2025 5:07 AM EDT [facility] RBC 3.11(L) 3.93 - 5.22 M/ L 06/11/2025 5:07 AM EDT [facility] Hemoglobin 9.4(L) 11.2 - 15.7 GM/DL 06/11/2025 5:07 AM EDT [facility] Hematocrit 28.5(L) 34.1 - 44.9 % 06/11/2025 5:07 AM EDT [facility] MCV 92 79 - 95 fL 06/11/2025 5:07 AM EDT [facility] MCH 30.2 25.6 - 32.2 pg 06/11/2025 5:07 AM EDT [facility] MCHC 33.0 32.2 - 35.5 GM/DL 06/11/2025 5:07 AM EDT [facility] RDW 16.9(H) 11.7 - 14.4 % 06/11/2025 5:07 AM EDT [facility] Platelets 246 140 - 375 K/CU MM 06/11/2025 5:07 AM EDT [facility] MPV 11.7 9.4 - 12.3 fL 06/11/2025 5:07 AM EDT [facility] % Neutros 60 34 - 71 % 06/11/2025 5:07 AM EDT [facility] % Lymphs 20 19 - 52 % 06/11/2025 5:07 AM EDT [facility] % Monos 13 5 - 13 % 06/11/2025 5:07 AM EDT [facility] % Eos 3.7 1.0 - 6.0 % 06/11/2025 5:07 AM EDT [facility] % Baso 1 0 - 1 % 06/11/2025 5:07 AM EDT [facility] NRBC Absolute <0.01 0 - 0.012 K/ul 06/11/2025 5:07 AM EDT [facility] # Neutros 3.59 1.56 - 6.13 K/ L 06/11/2025 5:07 AM EDT [facility] # Lymphs 1.18 1.18 - 3.74 K/ L 06/11/2025 5:07 AM EDT [facility] # Monos 0.78 0.24 - 0.86 K/ L 06/11/2025 5:07 AM EDT [facility] # Eos 0.22 0.04 - 0.36 K/ L 06/11/2025 5:07 AM EDT [facility] # Baso 0.04 0.01 - 0.08 K/ L 06/11/2025 5:07 AM EDT [facility] % Imm Grans 3.50(H) 0.01 - 0.43 % 06/11/2025 5:07 AM EDT [facility] # IG 0.21(H) 0.00 - 0.03 K/uL 06/11/2025 5:07 AM EDT [facility] Blood Venipuncture / Unknown 06/11/2025 4:35 AM EDT 06/11/2025 4:54 AM EDT Narrative [facility] - 06/11/2025 5:07 AM [...] MD LAB BLOOD ORDERABLES Final Resul t [facility] [address] [phone] * (ABNORMAL) Basic Metabolic Panel (06/11/2025 4:35 AM EDT) Only the most recent of9 resultswithin the time period is included. Sodium 142 136 - 145 meq/L 06/11/2025 5:24 AM EDT [facility] Potassium 4.2 3.4 - 5.1 meq/L 06/11/2025 5:24 AM EDT [facility] CO2 28 22 - 29 meq/L 06/11/2025 5:24 AM EDT [facility] Chloride 102 98 - 112 meq/L 06/11/2025 5:24 AM EDT [facility] Glucose 82 82 - 115 mg/dL 06/11/2025 5:24 AM EDT [facility] BUN 54.3(H) 9.8 - 20.1 mg/dL 06/11/2025 5:24 AM EDT [facility] Creatinine 2.40(H) 0.50 - 1.20 mg/dL 06/11/2025 5:24 AM EDT [facility] BUN/Creatinine 23(H) 8 - 20 06/11/2025 5:24 AM EDT [facility] Calcium 9.2 8.4 - 10.2 mg/dL 06/11/2025 5:24 AM EDT [facility] Anion Gap 16(H) 4 - 12 06/11/2025 5:24 AM EDT [facility] eGFR (mL/min/1.73m2) 19(L) >=60 mL/min/1.7 3m2 06/11/2025 5:24 AM EDT [facility] Comment:ESTIMATED GFR IS NOT ACCURATE CREATININE CLEARANCE IN PREDICTING GLOMERULAR FILTRATION RATE. ESTIMATED GFR IS NOT APPLICABLE FOR DIALYSIS PATIENTS. Osmolality Calc 297.1 mOsm/kg 5:24 AM EDT [facility] Blood Venipuncture / Unknown 06/11/2025 4:35 AM EDT 06/11/2025 4:52 AM EDT us Charity Steiner MD LAB BLOOD ORDERABLES Final Resul t Performing Organization Address City/[facility]/ZIP Co de Phone Number [facility] [address] [phone] * Potassium (06/10/2025 11:08 AM EDT) Potassium 3.9 3.4 - 5.1 meq/L 06/10/2025 1:48 PM EDT [facility] Blood Venipuncture / Unknown 06/10/2025 11:08 AM EDT 06/10/2025 11:11 AM EDT Result Taiwo Steiner MD LAB BLOOD ORDERABLES Final Resul t Performing Organization Address [facility] Co de Phone Number [facility] [address] [phone] * ECG 12 lead (06/10/2025 9:57 AM EDT) Only the most recent of8 resultswithin the time period is included. VENTRICULAR RATE EKG/MIN 56 BPM GE MUSE ATRIAL RATE (MCT) 56 BPM GE MUSE WA Interval 228 ms GE MUSE QRS-INTERVAL (MSEC) 126 ms GE MUSE QT Interval 450 ms GE MUSE QTC Interval 434 ms GE MUSE P [place] 8 degrees GE MUSE R AXIS (MCT) 25 degrees GE MUSE T Wave [place] 0 degrees GE MUSE [place] Diagnosis Sinus bradycardia with 1st degree AV [...] ECG ORDERABLES Final Result Performing Organization Address [facility] Co de Phone Number GE MUSE * Magnesium (06/10/2025 3:43 AM EDT) Only the most recent of6 resultswithin the time period is included. Magnesium 1.6 1.6 - 2.6 mg/dL 06/10/2025 4:21 AM EDT [facility] Blood Venipuncture / Unknown 06/10/2025 3:43 AM EDT 06/10/2025 3:56 AM EDT us Charity Steiner MD LAB BLOOD ORDERABLES Final Resul t [facility] [address] [phone] * XR KUB PORTABLE (06/08/2025 10:23 PM [...] and dictated by Keyon Levy M.D. Lukas Kenjulia REYES [facility]AG[facility] ORDERAB LES Final Result * [...] by Estela Bueno PA-C. Bela Abel MD [facility] ORDERAB LES Final Result * [...] UA Light Yellow 06/04/2025 7:33 PM EDT [facility] Clarity, UA Turbid(A) Clear 06/04/2025 7:33 PM EDT [facility] Specific [place], UA 1.013 1.005 - 1.030 06/04/2025 7:33 PM EDT [facility] pH, UA 5.5(L) 6.0 - 8.0 06/04/2025 7:33 PM EDT [facility] Leukocytes, UA 250 Danielle/uL(A) Negative 06/04/2025 7:33 PM EDT [facility] Nitrite, UA Negative Negative 06/04/2025 7:33 PM EDT [facility] Protein, UA Trace(A) Negative 06/04/2025 7:33 PM EDT [facility] Glucose, UA 2+(A) Normal 06/04/2025 7:33 PM EDT [facility] Ketones, UA Negative Negative 06/04/2025 7:33 PM EDT [facility] Urobilinogen, UA Normal Normal 06/04/20 7:33 PM EDT [facility] Bilirubin, UA Negative Negative 06/04/2025 7:33 PM EDT [facility] Blood, UA 3+(A) Negative 06/04/2025 7:33 PM EDT [facility] RBC, UA 51-100(A) None Seen /HPF 06/04/2025 7:33 PM EDT [facility] WBC, UA 21-50(A) None Seen /HPF 06/04/2025 7:33 PM EDT [facility] Bacteria, UA 1+(A) None Seen, Trace 06/04/2025 7:33 PM EDT [facility] Mucus 1+(A) None Seen 06/04/2025 7:33 PM EDT [facility] SQUAMOUS EPITHELIAL 0-2(A) None Seen /HPF 06/04/2025 7:33 PM EDT [facility] RENAL EPITHELIAL 0-2(A) None Seen /HPF 06/04/2025 7:33 PM EDT [facility] TRANSITIONAL EPITHELIAL CELLS 0-2(A) None Seen /HPF 06/04/2025 7:33 PM EDT [facility] HYALINE CASTS 3-5(A) None Seen /LPF 06/04/2025 7:33 PM EDT [facility] Specimen Source Urine, Ramirez 06/04/2025 7:33 PM EDT [facility] Urine URINE SPECIMEN COLLECTION, CATHETERIZED / Unknown 06/04/2025 6:56 PM EDT 06/04/2025 7:17 PM EDT us Octavio Odell MD URINE ORDERABLES Final Result [facility] [address] [phone] * (ABNORMAL) Renal Function Panel (06/04/2025 5:59 PM EDT) Only the most recent of2 resultswithin the time period is included. Glucose 143(H) 82 - 115 mg/dL 06/04/2025 6:37 PM [facility] BUN 77.1(H) 9.8 - 20.1 mg/dL 06/04/2025 6:37 PM [facility] Creatinine 5.22(H) 0.57 - 1.11 mg/dL 06/04/2025 6:37 PM [facility] BUN/Creatinine 15 8 - 20 06/04/2025 6:37 PM [facility] eGFR (mL/min/1.73m2) 8(L) >=60 mL/min/1.7 3m2 06/04/2025 6:37 PM [facility] Comment:ESTIMATED GFR IS NOT ACCURATE CREATININE CLEARANCE IN PREDICTING GLOMERULAR FILTRATION RATE. ESTIMATED GFR IS NOT APPLICABLE FOR DIALYSIS PATIENTS. Sodium 141 136 - 145 meq/L 06/04/2025 6:37 PM [facility] Potassium 5.7(H) 3.4 - 5.1 meq/L 06/04/2025 6:37 PM [facility] Chloride 101 98 - 112 meq/L 06/04/2025 6:37 PM [facility] CO2 24 22 - 29 meq/L 06/04/2025 6:37 PM [facility] Anion Gap 22(H) 4 - 12 06/04/2025 6:37 PM [facility] Calcium 9.1 8.4 - 10.2 mg/dL 06/04/2025 6:37 PM [facility] Albumin 2.5(L) 3.5 - 5.0 g/dL 06/04/2025 6:37 PM [facility] Phosphorus 5.3(H) 2.5 - 4.5 mg/dL 06/04/2025 6:37 PM [facility] Osmolality Calc 306.7 mOsm/kg 6:37 PM [facility] Blood ENTIRE RIGHT UPPER ARM / Unknown Venipuncture / Unknown 06/04/2025 5:59 PM EDT 06/04/2025 6:06 PM [facility] - 06/04/2025 6:37 PM EDT Specimen slightly hemolyzed us Holger Mishra MD LAB BLOOD ORDERABLES Final Resul t [facility] [address] [place] [address], [facility] [phone] * Ultrasound renal limited (06/04/2025 1:28 PM [...] Maryam Duran PA-C. us Steffen Juan PA-C IMG US ORDERABLES Final Result * Respiratory Panel (06/04/2025 1:23 PM EDT) ADENOVIRUS Not detected Not detected 06/04/2025 3:27 PM EDT [facility] CORONAVIRUS 229E Not detected Not detected 06/04/2025 3:27 PM EDT [facility] CORONAVIRUS HKU1 Not detected Not detected 06/04/2025 3:27 PM EDT [facility] CORONAVIRUS NL63 Not detected Not detected 06/04/2025 3:27 PM EDT [facility] CORONAVIRUS OC43 Not detected Not detected 06/04/2025 3:27 PM EDT [facility] SARS-COV2/RT-PCR Not Detected Not Detected 06/04/2025 3:27 PM EDT [facility] HUMAN METAPNEUMOVIRUS Not detected Not detected 06/04/2025 3:27 PM EDT [facility] HUMAN RHINOVIRUS/ENTEROV IRUS Not detected Not detected 06/04/2025 3:27 PM EDT [facility] INFLUENZA A Not detected Not detected 06/04/2025 3:27 PM EDT [facility] INFLUENZA B Not detected Not detected 06/04/2025 3:27 PM EDT [facility] PARAINFLUENZA VIRUS 1 Not detected Not detected 06/04/2025 3:27 PM EDT [facility] PARAINFLUENZA VIRUS 2 Not detected Not detected 06/04/2025 3:27 PM EDT [facility] PARAINFLUENZA VIRUS 3 Not detected Not detected 06/04/2025 3:27 PM EDT [facility] PARAINFLUENZA VIRUS 4 Not detected Not detected 06/04/2025 3:27 PM EDT [facility] RESPIRATORY SYNCYTIAL VIRUS Not detected Not detected 06/04/2025 3:27 PM EDT [facility] BORDETELLA PARAPERTUSSIS Not detected Not detected 06/04/2025 3:27 PM EDT [facility] BORDETELLA PERTUSSIS Not detected Not detected 06/04/2025 3:27 PM EDT [facility] CHLAMYDIA PNEUMONIAE Not detected Not detected 06/04/2025 3:27 PM EDT [facility] MYCOPLASMA PNEUMONIAE Not detected Not detected 06/04/2025 3:27 PM EDT [facility] Nasopharyngeal NASOPHARYNGEAL SWAB / Unknown 06/04/2025 1:23 PM EDT 06/04/2025 1:36 PM EDT Narrative [facility] - 06/04/2025 3:27 PM EDT Testing was performed with RT-PCR methodology using the [employer] Respiratory Panel 2.1 which has FDA De [...] decisions. This sample was tested at the [facility] using the [employer] Respiratory Panel. It is FDA cleared and has been verified and approved by the [facility] for clinical use on nasopharyngeal swab specimens. The performance of the Film[employer] RP has not been established in individuals who received influenza vaccine. Recent administration of a nasal influenza vaccine may cause false positive results for Influenza A and/or Influenza B. Octavio Odell MD MICROBIOLOGY - GENERAL ORDERA BLES Final Result Performing Organization Address City/[facility]/ZIP Co de Phone Number [facility] [address] [phone] * MRSA Screen (06/04/2025 1:23 PM EDT) Pathologist [facility] MRSA by PCR [facility] MRSA Not Detected by PCR MRSA Not Detected by PCR DEVICE ID9 06/04/2025 3:27 PM EDT [facility] Nasal BOTH ANTERIOR NARES / Unknown 06/04/2025 1:23 PM EDT 06/04/2025 1:36 PM EDT Octavio Odell MD MICROBIOLOGY - GENERAL ORDERA BLES Final Result Performing Organization Address [facility]/ZIP Co de Phone Number [facility] [address] [phone] * ECHO COMPLETE (DOPPLER / COLOR) W CONTRAST (06/04/2025 1:05 PM EDT) Anatomical Region Laterality Modality Heart Vascular Ultraso und 06/04/2025 12:5 4 PM EDT Narrative 06/04/2025 2:42 PM EDT TRANSTHORACIC ECHOCARDIOGRAPHY REPORT Demographics Patient Name: ULISES VELASCO : 1940 Age: 84 year(s) Corporate ID Number: [id number] Gender Female Pot Tender: Neena DEL ANGEL Height: 67 inches Referring [...] 5.84 l/min ml CI: 2.95 l/min*m^2 Volume mwpcgadu59.77 ml LVOT diameter: 2.11 cm Normal sized [...] Valve TR velocity: 2.06 m/s TR gradient: 16.97028 mmHg Estimated RAP: 8 mmHg RVSP: 24.99 [...] 1940 Age: 84 year(s) Corporate ID Number: [id number] Gender Female Pot Tender: Neena DEL ANGEL Height: 67 inches Referring Physician: DEONTE WILCOX Weight: 191 pounds Interpreting Physician: TAMI SIMON MD BMI: 29.91kg/m^2 Date of Service: 06/04/2025 Blood Pressure: 127/93 mmHg Room Number: CCU 7 Type of Study: TTE procedure: ECHO COMPLETE (DOPPLER / COLOR) W OR WO CONTRAST. HR: 60 bpmPatient Status: Routine IP [facility]qu[facility] History/Tech Notes: Indication: [...] 5.84 l/min ml CI: 2.95 l/min*m^2 Volume vijjeyfn81.77 ml LVOT diameter: 2.11 cm Normal sized [...] Valve TR velocity: 2.06 m/s TR gradient: 16.91323 mmHg Estimated RAP: 8 mmHg RVSP: 24.99 [...] CV ECHO ORDERABLES Final Resu lt * [id number] Activity(SENDOUT) (06/04/2025 10:58 AM EDT) Pathologist [facility] [id number] Activity 80 >=61 % 025 10:24 AM EDT [employer] [facility] Comment: INTERPRETIVE INFORMATION: [id number] Activity [id number] levels of less than 10 percent may be associated with either inherited (Lynda-Brad Syndrome) or acquired thrombotic thrombocytopenic purpura (TTP). A variety of medical conditions may result in a mild to moderate deficiency of UREPGA55 activity. Recent plasma exchange therapy may raise the observed PXDZXJ56 activity. This test was developed and its performance characteristics determined by [facility]. It has not been cleared or approved by the [place] Food and Drug Administration. This test was performed in a CLIA certified laboratory and is intended for clinical purposes. Performed By: [facility] [address] [place] [address] Distance Learning Administrator: Adolfo Hoffman MD, PhD CLIA Number: [id number] Blood Venipuncture / Unknown 06/04/2025 10:58 AM EDT 06/04/2025 10:58 AM EDT Holger Mishra MD LAB BLOOD ORDERABLES Final Resul t [facility] [address] [place] [address], [facility] [phone] * SHAYAN Reflexive Profile(SENDOUT) (06/04/2025 10:57 AM EDT) Anti-Nuclear Ab (SHAYAN), IgG by NORM None Detected None Detected 06/07/2025 10:36 AM EDT [employer] [facility] Comment: No Anti-Nuclear Antibodies (SHAYAN) detected by NORM. The Extractable Nuclear Antigen Antibodies (ATOMIC WELDER, Starks, SSA 52, SSA 60, Scleroderma, Ana Cristina-1 and SSB) and Double Stranded DNA (dsDNA) Antibody, IgG will not be performed. If suspicion of connective tissue disease is strong, and SHAYAN is negative by NORM, consider testing for SHAYAN by IFA ([id number]). INTERPRETIVE INFORMATION: Anti-Nuclear Antibodies (SHAYAN), IgG by NORM Antinuclear Antibodies (SHAYAN), IgG by NORM: SHAYAN specimens are screened using enzyme-linked immunosorbent assay (NORM) methodology. All NORM results reported as Detected are further tested by indirect fluorescent assay (IFA) using HEp-2 substrate with an IgG-specific conjugate. The SHAYAN NORM screen is designed to detect antibodies against dsDNA, histones, SS-A (Ro), SS-B (La), Starks, Starks/ATOMIC WELDER, Scl-70, Ana Cristina-1, centromeric proteins, other antigens extracted from the HEp-2 cell nucleus. SHAYAN NORM assays have been reported to have lower sensitivities than SHAYAN IFA for systemic autoimmune rheumatic diseases (SARD). Negative results do not necessarily rule out SARD. Performed By: [facility] [address] [place] [address] Distance Learning Administrator: Adolfo Hoffman MD, PhD CLIA Number: [id number] Blood Venipuncture / Unknown 06/04/2025 10:57 AM EDT 06/04/2025 10:57 AM EDT us Holger Mishra MD LAB BLOOD ORDERABLES Final Resul t Performing Organization Address City/[facility]/ZIP Co de Phone Number [facility] [address] [place] [address], [facility] [phone] * Complement Components 3 and 4(SENDOUT) (06/04/2025 10:53 AM EDT) Complement Component 3 109 90 - 180 mg/dL 06/06/2025 2:24 AM EDT [employer] [facility] Comment: REFERENCE INTERVAL: Complement Component 3 Access complete set of age- and/or gender-specific reference intervals for this test in the [facility] ([facility]). Complement Component 4 30 10 - 40 mg/dL 06/06/2025 2:24 AM EDT [employer] [facility] Comment: REFERENCE INTERVAL: Complement Component 4 Access complete set of age- and/or gender-specific reference intervals for this test in the [facility] ([facility]). Performed By: [facility] [address] [place] [address] Distance Learning Administrator: Adolfo Hoffman MD, PhD CLIA Number: [id number] Blood Venipuncture / Unknown 06/04/2025 10:53 AM EDT 06/04/2025 10:53 AM EDT us Holger Mishra MD LAB BLOOD ORDERABLES Final Resul t Performing Organization Address City/[facility] Co de Phone Number [facility] [employer] [address] [place] [address], [facility] [phone] * Procalcitonin (06/04/2025 5:02 AM EDT) Procalcitonin 0.23 See Comment ng/mL 06/04/2025 10:38 AM EDT [facility] Comment: Sepsis comment <0.5 [...] 5:02 AM EDT 06/04/2025 5:02 AM EDT [facility] - 06/04/2025 10:38 AM EDT Specimen slightly hemolyzed us Octavio Odell MD LAB BLOOD ORDERABLES Final Re sult Performing Organization Address [facility] de Phone Number [facility] [address] [phone] * (ABNORMAL) PROBNP (06/04/2025 5:02 AM EDT) ProBNP (pg/mL) 5,625(H) 16 - 956 pg/mL 06/04/2025 10:38 AM EDT [facility] Blood Venipuncture / Unknown 06/04/2025 5:02 AM EDT 06/04/2025 5:02 AM EDT [facility] - 06/04/2025 10:38 AM EDT As of January 14, 2025: NT-ProBNP is a new test on our [employer] Immunoassay analyzer. Please review new age and gender specific reference ranges. us Octavio Odell MD LAB BLOOD ORDERABLES Final Re sult Performing Organization Address [facility] Co de Phone Number [facility] [address] [phone] * (ABNORMAL) Iron and TIBC (06/04/2025 5:02 AM EDT) Iron 101 50 - 170 ug/dL 06/04/2025 6:16 AM EDT [facility] TIBC 244(L) 250 - 435 ug/dL 06/04/2025 6:16 AM EDT [facility] % Saturation 41 % 06/04/2025 6:16 AM EDT [facility] UIBC 143 06/04/2025 6:16 AM EDT [facility] Blood Venipuncture / Unknown 06/04/2025 5:02 AM EDT 06/04/2025 5:02 AM EDT [facility] - 06/04/2025 6:16 AM EDT Specimen slightly hemolyzed us Sima Mancia MD LAB BLOOD ORDERABLES Final Re sult Performing Organization Address City/[facility]/ZIP Co de Phone Number [facility] [address] [phone] * (ABNORMAL) Lactate dehydrogenase (LDH) (06/04/2025 5:02 AM EDT) LDH 431(H) 125 - 220 U/L 06/04/2025 9:08 AM EDT [facility] Blood Venipuncture / Unknown 06/04/2025 5:02 AM EDT 06/04/2025 5:02 AM EDT [facility] - 06/04/2025 9:08 AM EDT Specimen slightly hemolyzed us Holger Mishra MD LAB BLOOD ORDERABLES Final Resul t Performing Organization Address [facility] Co de Phone Number [facility] [address] [phone] * Ferritin (06/04/2025 5:02 AM EDT) Ferritin 162.66 4.63 - 204.00 ng/mL 06/04/2025 6:16 AM EDT [facility] Blood Venipuncture / Unknown 06/04/2025 5:02 AM EDT 06/04/2025 5:02 AM EDT [facility] - 06/04/2025 6:16 AM EDT Specimen slightly hemolyzed us Sima Mancia MD LAB BLOOD ORDERABLES Final Re sult [facility] [address] [place] [address], [facility] [phone] * (ABNORMAL) Vitamin B12 (06/04/2025 5:02 AM EDT) Pathologist [facility] Vitamin B12 >2,000(H) 213 - 816 pg/mL 06/04/2025 6:19 AM EDT [facility] Blood Venipuncture / Unknown 06/04/2025 5:02 AM EDT 06/04/2025 5:02 AM EDT Narrative [facility] - 06/04/2025 6:19 AM EDT Specimen slightly hemolyzed us Sima Mancia MD LAB BLOOD ORDERABLES Final Re sult Performing Organization Address City/State/[facility] Co de Phone Number [facility] [address] [phone] * (ABNORMAL) Comprehensive metabolic panel (06/04/2025 5:02 AM EDT) [facility] Sodium 145 136 - 145 meq/L 06/04/2025 6:18 AM EDT [facility] Potassium 6.5(HH) 3.4 - 5.1 meq/L 06/04/2025 6:18 AM EDT [facility] Chloride 110 98 - 112 meq/L 06/04/2025 6:18 AM EDT [facility] CO2 17(L) 22 - 29 meq/L 06/04/2025 6:18 AM EDT [facility] Calcium 8.7 8.4 - 10.2 mg/dL 06/04/2025 6:18 AM EDT [facility] Glucose 116(H) 82 - 115 mg/dL 06/04/2025 6:18 AM EDT [facility] BUN 79.5(H) 9.8 - 20.1 mg/dL 06/04/2025 6:18 AM EDT [facility] Creatinine 5.35(H) 0.57 - 1.11 mg/dL 06/04/2025 6:18 AM EDT [facility] BUN/Creatinine 15 8 - 20 06/04/2025 6:18 AM [facility] eGFR (mL/min/1.73m2) 7(L) >=60 mL/min/1. 73m2 06/04/2025 6:18 AM [facility] Comment:ESTIMATED GFR IS NOT ACCURATE CREATININE CLEARANCE IN PREDICTING GLOMERULAR FILTRATION RATE. ESTIMATED GFR IS NOT APPLICABLE FOR DIALYSIS PATIENTS. Albumin 2.5(L) 3.5 - 5.0 g/dL 06/04/2025 6:18 AM [facility] Alkaline Phosphatase 63 40 - 150 U/L 06/04/2025 6:18 AM [facility] ALT 10 <=34 U/L 06/04/2025 6:18 AM [facility] Comment: ALT2 reagent used for testing does not contain P5P supplementation and therefore may miss ALT elevations in patients with B6 deficiency. This population may be as high as 10% in the [place], with risk factors including malabsorption, drug interactions, and alcoholic hepatitis. AST 36(H) 11 - 34 U/L 06/04/2025 6:18 AM [facility] Comment: AST2 reagent used for testing does not contain P5P supplementation and therefore may miss AST elevations in patients with B6 deficiency. This population may be as high as 10% in the [place], with risk factors including malabsorption, drug interactions, and alcoholic hepatitis. Total Bilirubin 0.5 0.2 - 1.2 mg/dL 06/04/2025 6:18 AM [facility] Protein, Total 6.3(L) 6.4 - 8.3 g/dL 06/04/2025 6:18 AM [facility] Globulin 3.8 2.5 - 4.1 g/dL 06/04/2025 6:18 AM [facility] Anion Gap 25(H) 4 - 12 06/04/2025 6:18 AM [facility] A/G Ratio 0.7 0.7 - 1.9 06/04/2025 6:18 AM [facility] Osmolality Calc 313.5 mOsm/kg 6:18 AM [facility] Blood Venipuncture / Unknown 06/04/2025 5:02 AM EDT 06/04/2025 5:02 AM EDT Narrative [facility] - 06/04/2025 6:18 AM EDT Specimen slightly hemolyzed Steffen Juan PA-C LAB BLOOD ORDERABLES Final Res ult Performing Organization Address [facility]/ZIP Co de Phone Number [facility] [address] [phone] * Strep pneumoniae urine antigen (06/03/2025 11:50 PM EDT) Strep pneumoniae Antigen Presumptive negative for pneumococcal pneumonia - see comment Presumptive negative for pneumococcal pneumonia- see comment 06/04/2025 12:12 AM EDT [facility] Urine URINE / Unknown 06/03/2025 1 1:50 PM EDT 06/03/2025 11:50 PM EDT Narrative [facility] - 06/04/2025 12:12 AM EDT A presumptive negative result suggests no current or recent pneumococcal infection. Infection due to S. pneumoniae cannot be ruled out since the antigen present in the specimen may be below the detection limit of the test. Sima Mancia MD MICROBIOLOGY - GENERAL ORDERA BLES Final Result Performing Organization Address [facility] Co de Phone Number [facility] [address] [phone] * Urea Nitrogen, random urine (06/03/2025 11:50 PM EDT) Urea Nitrogen, Ur 328 mg/dL 06/04/2025 12:14 AM EDT [facility] Comment: Reference Range not established Reference range not established Urine 06/03/2025 11:5 0 PM EDT 06/03/2025 11:50 PM EDT Sima Mancia MD URINE ORDERABLES Final Result Performing Organization Address City/[facility] Co de Phone Number [facility] [address] [phone] * Legionella antigen, urine (06/03/2025 11:50 PM EDT) Legionella Urine Antigen Presumptive negative for L. pneumophila serogroup 1 antigen in urine- see comment Presumptive negative for L. pneumophila serogroup 1 antigen in urine- see comment 06/04/2025 12:12 AM EDT [facility] Urine 06/03/2025 11:5 0 PM EDT 06/03/2025 11:50 PM EDT Narrative [facility] - 06/04/2025 12:12 AM [...] Sima Mancia MD URINE ORDERABLES Final Result [facility] [address] [phone] * Sodium, random urine (06/03/2025 11:50 PM EDT) Sodium Urine 109 See Comment meq/L 06/04/2025 12:14 AM EDT [facility] Comment:Reference Range not established Urine 06/03/2025 11:5 0 PM EDT 06/03/2025 11:50 PM EDT Steffen Juan PA-C URINE ORDERABLES Final Result [facility] [address] [phone] * (ABNORMAL) Protein, random urine (06/03/2025 11:50 PM EDT) Protein, Urine 15(H) 1 - 14 mg/dL 06/04/2025 12:14 AM EDT [facility] Comment:No normal reference range established Urine 06/03/2025 11:5 0 PM EDT 06/03/2025 11:50 PM EDT Steffen Juan PA-C URINE ORDERABLES Final Result Performing Organization Address [facility] Co de Phone Number [facility] [address] [phone] * (ABNORMAL) Creatinine, random urine (06/03/2025 11:50 PM EDT) Creatinine, Ur 39.00(L) 47.00 - 110.00 mg/dL 06/04/2025 12:14 AM EDT [facility] Urine 06/03/2025 11:5 0 PM EDT 06/03/2025 11:50 PM EDT us Steffen MIMS-C URINE ORDERABLES Final Result Performing Organization Address [facility] Co de Phone Number [facility] [address] [phone] * Chloride, random urine (06/03/2025 11:50 PM EDT) ChlorideUr 109 See Comment mmol/L 06/04/2025 12:17 AM EDT [facility] Comment:Reference range not established Urine 06/03/2025 11:5 0 PM EDT 06/03/2025 11:50 PM EDT us Sima Mancia MD URINE ORDERABLES Final Result Performing Organization Address [facility] Co de Phone Number [facility] [address] [place] [address], [facility] [phone] * Phosphorus (06/03/2025 11:43 PM EDT) Phosphorus 4.4 2.5 - 4.5 mg/dL 06/04/2025 12:07 AM EDT [facility] Blood Venipuncture / Unknown 06/03/2025 11:43 PM EDT 06/03/2025 11:47 PM EDT Steffen Juan PA-C LAB BLOOD ORDERABLES Final Res ult Performing Organization Address [facility]/ZIP Co de Phone Number [facility] [address] [phone] * Creatine Kinase (CK) (06/03/2025 11:43 PM EDT) Total CK 62 29 - 168 U/L 06/04/2025 12:07 AM EDT [facility] Blood Venipuncture / Unknown 06/03/2025 11:43 PM EDT 06/03/2025 11:47 PM EDT Steffen Juan PA-C LAB BLOOD ORDERABLES Final Res ult Performing Organization Address [facility] Co de Phone Number [facility] [address] [phone] * (ABNORMAL) CBC Scan (06/03/2025 11:42 PM EDT) Pathologist [facility] Platelet Estimate Decreased( A) Adequate 06/04/2025 12:48 AM EDT [facility] RBC Morphology Normal Normal 06/04/2025 12:48 AM EDT [facility] Blood Venipuncture / Unknown 06/03/2025 11:42 PM EDT 06/03/2025 11:47 PM EDT Steffen Juan PA-C LAB BLOOD ORDERABLES Final Res ult Performing Organization Address [facility] Co de Phone Number [facility] [address] [phone] * (ABNORMAL) Lactic Acid with reflex (SJ) (06/03/2025 11:42 PM EDT) Lactic Acid Level (mmol/L) 2.4(HH) 0.5 - 2.2 mmol/L 06/04/2025 12:13 AM EDT [facility] Blood Venipuncture / Unknown 06/03/2025 11:42 PM EDT 06/03/2025 11:47 PM EDT us Steffen Juan PA-C LAB BLOOD ORDERABLES Final Res ult [facility] [address] [place] [id number] [phone] * EKG-SCANNED (06/03/2025) Only the most recent of2 resultswithin the time period is included. Narrative 06/03/2025 Ordered by an unspecified provider. us Default Scanning Provider SCAN ORDERS Final Result from Last 3 Months Insurance MEDICARE PART A B [employer] Advance Directives For more information, please contact: [phone] Documents on File Type Date Recorded Patient Unishear Operator Expl anation Advance Directives and Living Will 06/04/2025 Durable Power of [employer] Advance Directives and Living Will 06/03/2025 Power of [employer] 06/03/2025 * Full Code (Latest Code Status on File) Date Activated Date Inactivated Comments 06/04/2025 3:12 AM 06/11/2025 6:37 PM Care Teams 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
[2025-08-11 19:27] LABS: Hematocrit 30.9 % (37.0-47.0); Hemoglobin 9.4 g/dL (12.2-16.2); Immature Granulocytes % 1.6 %; Mean Corpuscular HGB Conc 30.4 g/dL (31.8-35.4); Mean Corpuscular Hemoglobin 28.9 pg (27.0-31.2); Mean Corpuscular Volume 95.1 fl (81-99); Nucleated Red Blood Cells % 0 %; Platelet Count 109 K/mm3 (142-424); Red Blood Count 3.25 M/mm3 (4.20-5.40); Red Cell Distribution Width-SD 53.8 fL; White Blood Count 8.7 K/mm3 (4.8-10.8)
[2025-08-11 19:27] LABS: Coronavirus 19, PCR Not Detected (NotDetected); Influenza A, PCR Not Detected (NotDetected); Influenza B, PCR Not Detected (NotDetected)
[2025-08-11 19:36] LABS: Alanine Aminotransferase 20 U/L (12-78); Albumin Level 4.1 g/dl (3.5-5.0); Albumin/Globulin Ratio 1.3 (1.1-1.8); Alkaline Phosphatase 92 U/L (38-126); Anion Gap 12.2 mEq/L (5-15); Aspartate Amino Transferase 44 U/L (14-36); Bilirubin,Total 0.6 mg/dl (0.2-1.3); Blood Urea Nitrogen 44 mg/dl (7-17); Calcium 9.1 mg/dl (8.4-10.2); Carbon Dioxide 31 mmol/L (22.0-30.0); Chloride 102 mmol/L (98-107); Creatinine Clearance Estimated 22 mL/min (50-200); Creatinine,Serum 2.60 mg/dl (0.52-1.04); Estimated Glomerular Filt Rate 17 ml/min (>60); GFR (African American) 21 ML/MIN (>60); Globulin 3.1 g/dL (1.3-3.2); Glucose 157 mg/dl (74-100); Magnesium 1.6 mg/dl (1.6-2.3); Potassium 5.2 mmoL/L (3.5-5.1); Sodium 140 mmol/L (136-145); Total Protein,Serum 7.2 g/dl (6.3-8.2)
[2025-08-11 19:41] LABS: D-Dimer 1.18 ug/mL (0.0-0.5)
[2025-08-11 19:42] LABS: C-Reactive Protein 34.1 mg/L (0-4)
[2025-08-11 19:51] LABS: NT Pro Brain Natriuretic Pep. 2990 pg/mL (0-450)
[2025-08-11 19:52] LABS: Troponin I 0.01 ng/ml (0.00-0.034)
[2025-08-11 19:56] LABS: Procalcitonin 0.238 ng/mL (0.0-2.0); T4 (Thyroxine) 9.3 ug/dl (5.53-11.0)
[2025-08-11] MEDS: ALBUTEROL 0.083% 2.5 MG/3 ML NEB 20 MG IH (20:05)
[2025-08-11 20:10] LABS: Thyroid Stimulating Hormone 1.09 uIU/mL (0.465-4.68)
[2025-08-11] MEDS: LEVOFLOXACIN/D5W 750 MG/150 ML 750 MG/150 ML PIGGYBACK 100 MG IV (20:38)
[2025-08-11] MEDS: BUMETANIDE 1MG/4ML VIAL 1 MG IV (20:38)
--- NOTE | 2025-08-11 21:25 | P.HP_ITS ---
<Statement entered by Cl Bailey MD - 08/13/25 12:10> Agree with the plan of care as outlined in VP COMMUNICATIONS below. History of Present Illness *Admission Date: 08/11/25 *Reason for visit:: Shortness of breath *History of present illness: Kirstie Nascimento is an 84-year-old female with past medical history significant for oxygen dependent COPD, supplemental oxygen 4 L, COPD, former smoker, GERD, CKD, mediastinal lymphadenopathy, diabetes mellitus, inability to bear weight, HTN, HLD, neuropathy, depression and GERD. Patient presents to [facility] due to shortness of breath. Patient is a poor historian, history provided per staff and chart review. EMS notified per nursing facility due to concern of fever. On arrival to [facility], patient was found to be hypoxic. Saturations in the 60's while on baseline supplemental oxygen. Patient placed on CPAP en route to the hospital and then transitioned to BiPAP while in the emergency department. Noted improvement with BiPAP. Due to respiratory failure with hypoxia, patient will be admitted for further evaluation/treatment. Patient denies chest pain, nausea, vomiting, abdominal pain, urinary symptoms. Initial ED workup included laboratory studies and imaging. Significant laboratory findings include D-dimer 1.18, venous blood gas pH 7.27, pCO2 58.5, total CO2 27.8, creatinine 2.60, BUN 44, GFR 17, AST 44, CRP 34, BNP 2990. Imaging study included chest x-ray which I personally reviewed bilateral lower lung opacities pneumonia versus pulmonary edema. Patient assessed at bedside, she is without acute distress. Resting comfortably on BiPAP. Hemodynamically stable. [facility] Disclaimer: The information contained in this section may have been updated after the patient was seen, as this information can be updated by other users. Medical History (Updated 08/12/25 @ 04:40 by Claudia Abdi APRN) CAP (community acquired pneumonia) Abnormal ECG Former smoker BRIDGETTE (obstructive sleep apnea) Edema PAF (paroxysmal atrial fibrillation) Asthma Fibrosis of lung Decreased diffusion capacity of lung Pulmonary emphysema Chronic respiratory failure with hypoxia Recurrent pneumonia Acute and chronic respiratory failure with hypoxia Lumbar radiculopathy Degenerative disc disease, lumbar Paratracheal lymphadenopathy RICHIE (acute kidney injury) Hypertensive urgency Elevated brain natriuretic peptide (BNP) level Hypertensive emergency CKD (chronic kidney disease) stage 3, GFR 30-59 ml/min Pneumonia Allergic rhinitis Colon polyps Hemorrhoids, internal Osteoporosis Herpes zoster Closed left ankle fracture Closed left hip fracture Lumbar spinal stenosis Lumbar compression fracture Ocular melanoma COPD (chronic obstructive pulmonary disease) Mediastinal lymphadenopathy Sleep apnea Hyperlipidemia Neuropathy Depression GERD (gastroesophageal reflux disease) Arthritis Hypertension Diabetes Surgical History History of right knee joint replacement History of left knee replacement History of left hip replacement History of left ankle joint replacement 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 History of arthroplasty of right knee History of appendectomy Family History Other Heart attack Social History (Updated 08/11/25 @ 22:21 by Jessica Quispe RN) Smoking Status: Former smoker alcohol intake: never substance use type: denies use current occupational status: other Travel in the last 8 weeks?: None household members: none caffeine: Yes Have you lived/traveled outside [place] in past 30 days?: No Contact w/someone who lives/traveled outside US past 30 days?: No Exposure to someone with infectious disease in past 14 days?: No Do you have a fever (greater than 100.4 F or 38 C)?: No Have you tested positive for COVID-19?: No Exposed to someone with COVID-19 in past 14 days?: No Do you have a sore throat?: No Do you have a cough?: No Do you have any weakness?: No Do you have any diarrhea?: No Are you experiencing any unusual bleeding?: No Do you have any muscle aches/pain?: No Do you have any abdominal pain?: No Are you experiencing loss of taste or smell?: No Other Medical History Have you received the Flu Vaccine for this season: No Have you received the Pneumonia Vaccine: No Review of Systems Review of Systems Review of systems:: pertinent systems reviewed and negative unless documented below Constitutional Constitutional: Reports system reviewed and no additional complaints, except as documented and Reports as per HPI Eyes Eyes: Reports system reviewed and no additional complaints, except as documented and Reports as per HPI ENT Ears, Nose, Mouth, and Throat: Reports system reviewed and no additional complaints, except as documented and Reports as per HPI *Cardiovascular Cardiovascular: Reports as per HPI and Reports dyspnea Comments: Lower extremity edema, left greater than right (chronic ) *Respiratory Respiratory: Reports as per HPI, Reports cough and Reports dyspnea *Gastrointestinal Gastrointestinal: Reports system reviewed and no additional complaints, except as documented and Reports as per HPI *Genitourinary Genitourinary: Reports system reviewed and no additional complaints, except as documented and Reports as per HPI *Musculoskeletal Musculoskeletal: Reports as per HPI, Reports limited range of motion and Reports muscle weakness Integumentary/Breasts Skin/Breast: Reports system reviewed and no additional complaints, except as documented and Reports as per HPI *Neurologic Neurologic: Reports system reviewed and no additional complaints, except as documented and Reports as per HPI Psychiatric Psychiatric: Reports system reviewed and no additional complaints, except as documented and Reports as per HPI Endocrine Endocrine: Reports system reviewed and no additional complaints, except as documented and Reports as per HPI Hematologic/Lymphatic Hematologic/Lymphatic: Reports system reviewed and no additional complaints, except as documented and Reports as per HPI Allergic/Immunologic Allergic/Immunologic: Reports system reviewed and no additional complaints, except as documented and Reports as per HPI Meds Home Medications and Allergies Home Medications ?Medication ?Instructions ?Recorded ?Confirmed ?Type simvastatin 20 mg tablet 20 mg PO HS 03/06/18 5 History escitalopram oxalate 20 mg tablet 20 mg PO DAILY 11/0908/11/25 History fluticasone 250 mcg-salmeterol 50 1 ea inhalation BIDR T 11/10/23 08/11/25 History mcg/dose blistr powdr for inhalation (Wixela Inhub) oxybutynin chloride 10 mg 20 mg PO DAILY 11/10/2307/26 History tablet,extended release 24 hr esomeprazole magnesium 40 mg 40 mg PO DAILY 05/09/24 1 10/12/24 History capsule,delayed release fluticasone propionate 50 2 spray intranasal DAILY 08/11/25 History mcg/actuation nasal spray,suspension calcium carbonate (Calcium 600) 600 mg PO DAILY 08/11/25 History glucosamine sulfate 2KCl 1,000 mg 1,000 mg PO DAILY 08/11/25 History tablet acetaminophen 500 mg tablet 500 mg PO Q6HP PRN Mild Pa in 04/02/25 08/11/25 History (Scale Score 1-4) ipratropium 0.5 mg-albuterol 3 mg 3 ml inhalation Q6HP PRN Shortness 04/02/25 08/11/25 History (2.5 mg base)/3 mL nebulization Of Breath soln lidocaine 4 % topical patch 1 patch topical DAILY PRN Pain 04/02/25 08/11/25 History montelukast 10 mg tablet 10 mg PO PM 04/02/25 5 History cyanocobalamin (vitamin B-12) 1,000 mcg PO DAILY 05/0908/11/25 History 1,000 mcg tablet famotidine 40 mg tablet 20 mg PO HS 05/09/25 5 History menthol 5 % topical gel (Biofreeze 1 ea topical QIDP P RN Pain 05/09/25 08/11/25 History (menthol)) vit C 250 mg-vit E 90 mg-zinc 40 1 tab PO BID 05/09/25 07/26/25 History mg-copper 1 [id number] capsule (PreserVision AREDS-2) pregabalin 75 mg capsule 75 mg PO BID #60 caps 08/11/25 Rx amlodipine 5 mg tablet 5 mg PO DAILY 08/11/2508/11 History bumetanide 0.5 mg tablet 0.5 mg PO DAILY 08/11/25 History metoprolol succinate 25 mg 12.5 mg PO DAILY 08/11/25 1 10/12/24 History tablet,extended release 24 hr nystatin 100,000 unit/gram topical 1 applic topical BI D 08/11/25 08/11/25 History powder polyethylene glycol 3350 17 gram 17 g PO NEEDED PRN Constipation 08/11/25 08/11/25 History oral powder packet (Miralax) New Prescriptions to Start Prescriptions: Allergies Allergy/AdvReac Type Severity Reaction Status Date / Time pollen extracts (POLLEN Allergy Intermediate ASTHMA Verified 07/26/25 10:32 EXTRACTS) azithromycin Allergy Redness of Verified 07/26/25 10:32 Skin ceftriaxone (From Rocephin) Allergy Redness of Verified 07/26/25 10:32 Skin Exam Data for Last 24 hours Vital signs and Labs for Last 24 Hours: Temp Pulse Resp BP Pulse Ox O2 Del Method FiO2 98.0 F 80 30 H 138/58 L 97 BiPAP 45 08/11/25 18:53 08/11/25 18:53 08/11/25 18:53 08/11/25 18:53 08/11/25 19:13 08/11/25 19:13 08/11/25 19:00 Laboratory Results - last 24 hr 08/11/25 18:55: WBC 8.7, RBC 3.25 L, Hgb 9.4 L, Hct 30.9 L, MCV 95.1, MCH 28.9, MCHC 30.4 L, RDW 15.3, Plt Count 109 L, MPV 10.3, Neut % (Auto) 76.7, Lymph % (Auto) 12.9, [place] % (Auto) 7.4, Eos % (Auto) 1.2, Baso % (Auto) 0.2, Neut # (Auto) 6.6, Lymph # (Auto) 1.1, [place] # (Auto) 0.6, Eos # (Auto) 0.1, Baso # (Auto) 0.0, D-Dimer 1.18 H, Sodium 140, Potassium 5.2 H, Chloride 102, Carbon Dioxide 31 H, Anion Gap 12.2, BUN 44 H, Creatinine 2.60 H, Estimated Creat Clear 22, Estimated GFR 17 L*, Est GFR ( Amer) 21 L, Glucose 157 H, Lactate 1.2, Calcium 9.1, Magnesium 1.6, Total Bilirubin 0.6, AST 44 H, ALT 20, Alkaline Phosphatase 92, Troponin I 0.01, C-Reactive Protein 34.1 H, NT-Pro-B Natriuret Pep 2990 H, Total Protein 7.2, Albumin 4.1, Globulin 3.1, Albumin/Globulin Ratio 1.3, Procalcitonin 0.238, TSH 1.09, Thyroxine (T4) 9.3 08/11/25 19:10: VBG pH 7.27 L, VBG pCO2 58.5 H, VBG pO2 34.6, VBG HCO3 26.0, VBG Total CO2 27.8 H, VBG O2 Saturation 61.4, VBG Base Excess -1.0, VBG Lactic Acid 1.5 08/11/25 19:19: SARS-CoV-2 (PCR) Not detected, Influenza A Untype (PCR) Not detected, Influenza Type B (PCR) Not detected I & O for Last 24 hours: Intake & Output 08/08/25 08/09/25 08/10/25 08/11/25 23:59 23:59 23:59 23:59 Weight 90.718 kg Constitutional Constitutional: no acute distress, chronically ill appearing and cooperative *Routine HEENT Exam Head: Present normocephalic and atraumatic Eye: Present EOMI, PERRL and normal accommodation ENT: Present mucous membranes moist *Routine Neck Exam Neck: Present supple and full ROM *Routine Respiratory Exam Respiratory: Present decreased breath sounds, wheezes, distant breath sounds and diminished air movement *Routine Cardiovascular Exam Cardiovascular: Present RRR, Normal S1 and Normal S2 *Routine Abdominal Exam Abdominal: Present soft and normoactive bowel sounds *Routine Rectal Exam Rectal:: deferred *Routine Genitalia Exam Genitalia:: deferred *Routine Extremities Exam Extremities: Present edema, pulses intact and normal capillary refill Comments: Lower extremity edema-left lower extremity greater than right (chronic) *Routine Skin Exam Skin: Present intact *Routine Neurological Exam Neurological: Present alert Comments: Patient alert and oriented to person and place, notable lethargy secondary to respiratory failure with hypoxia and hypercapnia Assessment and Plan *Assessment and plan (1) Community acquired bilateral lower lobe pneumonia: Status: Acute Category: Medical Code(s): J18.9 - Pneumonia, unspecified organism (2) Acute on chronic respiratory failure with hypoxia and hypercapnia: Status: Acute Category: Medical Code(s): J96.21 - Acute and chronic respiratory failure with hypoxia; J96.22 - Acute and chronic respiratory failure with hypercapnia (3) Acute exacerbation of chronic obstructive pulmonary disease: Status: Acute Category: Medical Code(s): J44.1 - Chronic obstructive pulmonary disease with (acute) exacerbation (4) Bilateral lower extremity edema: Status: Acute Category: Medical Code(s): R60.0 - Localized edema (5) BRIDGETTE (obstructive sleep apnea): Status: Acute Category: Medical Code(s): G47.33 - Obstructive sleep apnea (adult) (pediatric) (6) D-dimer, elevated: Status: Acute Category: Medical Code(s): R79.89 - Other specified abnormal findings of blood chemistry (7) CKD (chronic kidney disease) stage 4, GFR 15-29 ml/min: Status: Acute Category: Medical Code(s): N18.4 - Chronic kidney disease, stage 4 (severe) (8) CHF (congestive heart failure): Status: Acute Qualifiers: Heart failure chronicity: chronic Heart failure type: unspecified Qualified Code(s): I50.9 - Heart failure, unspecified Category: Medical Code(s): I50.9 - Heart failure, unspecified (9) Thrombocytopenia: Status: Acute Category: Medical Code(s): D69.6 - Thrombocytopenia, unspecified (10) Diabetes: Status: Acute Qualifiers: Diabetes mellitus type: type 2 Diabetes mellitus middle or intermediate school principal insulin use: without middle or intermediate school principal use Diabetes mellitus complication status: without complication Qualified Code(s): E11.9 - Type 2 diabetes mellitus without complications Category: Medical Code(s): E11.9 - Type 2 diabetes mellitus without complications (11) Hypertension: Status: Acute Qualifiers: Hypertension type: primary hypertension Qualified Code(s): I10 - Essential (primary) hypertension Category: Medical Code(s): I10 - Essential (primary) hypertension (12) Hyperlipidemia: Status: Acute Qualifiers: Hyperlipidemia type: unspecified Qualified Code(s): E78.5 - Hyperlipidemia, unspecified Category: Medical Code(s): E78.5 - Hyperlipidemia, unspecified (13) Elevated troponin: Status: Acute Category: Medical Code(s): R79.89 - Other specified abnormal findings of blood chemistry Plan Assessment/plan: This case was discussed with the emergency department provider and agree with hospital admission for further evaluation/treatment. 84-year-old female history significant for COPD, dependent supplemental O2, CKD, BRIGDETTE. Presents from her nursing facility [facility] with shortness of breath. Noted to be hypoxic on 4 L nasal cannula. Placed on BiPAP on arrival to the emergency department. Received nebulizing treatment, Solu-Medrol 125, IV Bumex and Levaquin. Imaging studies as noted suggestive of pneumonia versus pulmonary edema. Admitted to stepdown unit, plan with continuation of BiPAP tonight. Resume IV antibiotic therapy, follow-up cultures, resume nebs as needed for shortness of breath/wheezing. 1. Community acquired bilateral lower pneumonia: Chest x-ray imaging as noted above, suggestive of bilateral lower lobe pneumonia. Blood cultures obtained/pending. IV Levaquin initiated, therapy. Scheduled and as needed nebs for shortness of breath. Follow cultures, trend morning labs. Pulmonary hygiene. Continuous O2 monitoring. Resume BiPAP. 2. Acute exacerbation of COPD/acute on chronic respiratory failure with hypoxia and hypercapnia: As noted above patient placed on BiPAP. Nebs as needed and s cheduled. Mucolytic and antitussive. Received 1 dose Solu-Medrol 125 mcg while in emergency department. Minimal expiratory wheezing. Resume IV Solu-Medrol 40 mg Q8h. maintain sats equal or greater than 90%. ABG upon arrival to the unit. IS at bedside. Consult placed to pulmonary for further evaluation and input appreciated. Diet for the a.m. if patient appropriate/respiratory status improv es. 3. CHF/bilateral lower extremity edema: Imaging of pulmonary edema vs pna- received 1 mg Bumex while in the emergency department. Left lower extremity larger than right- noted to be chronic. 2D echo obtained at [facility] 05/1025, EF 55%, normal diastolic function with no significant VHD. Will resume home dose of Bumex-> monitor renal function closely. 4. Elevated D-dimer: Resulted 1.18-> per chart review appears to be consistently elevated. There was discussion regarding obtaining CTA chest due to noted elevation. Concern proceeding with CTA chest due to contrast And underlying CKD. Due to chart review with consistent elevated D-dimer finding and caution with CKD will hold off on CTA chest-Will defer to daytime provider with possible plan of pursuing VQ scan if suspected pulmonary embolism. Patient is without any complaint of chest pain, noted significant improvement with above treatment. 5. Elevated troponin: Initial troponin within the emergency department unremarkable-repeated troponin level trending up-> possibly demand ischemia with hypoxic state. Continue to trend/monitor. Resume cardiac monitoring. 6. CKD stage IV: Creatinine 2.60, GFR 17, BUN 44. Creatinine has significantly fluctuated from 1.5 to an abnormally elevated creatinine this past May at 6.2-> presenting creatinine on this admission likely baseline. Continue to monitor, avoid nephrotoxic medication will trend with morning labs. 7. Thrombocytopenia: Platelet count 109-> chronic in nature, continue to monitor. No sign of active bleeding. Trend with morning labs. 8. Diabetes mellitus: Stable glucose-monitor every 6 hours, insulin sliding scale. DNR/DNI DVT prophylaxis: subq heparin DM diet
--- NOTE | 2025-08-11 21:29 | HMH.EDCP ---
Discharge Plan Disposition Patient Disposition: Admitted Condition: Fair Clinical Impressions Clinical Impression: Acute on chronic respiratory failure with hypoxia and hypercapnia, Acute exacerbation of chronic obstructive pulmonary disease, Pneumonia, CHF (congestive heart failure), D-dimer, elevated Discharge ED Provider: Claudia Henderson HPI General Chief Complaint: Shortness of Breath/Dyspnea Stated Complaint: shaking, fever, high BP Time Seen by Provider: 08/11/25 18:52 Mode of Arrival: EMS Source of Information: Patient, EMS and Medical Record Description of Symptoms (Recalled from ER Triage Doc. by RN): pt was gasping wheelchair on baseline 4L nc when ems arrived, pt has been febrile and eneida johns gave tylenol at 1730, has extensive pulmonary hx History of Present Illness HPI narrative: This patient is an 84-year-old female with a history of COPD on 4 L nasal cannula, BRIDGETTE, paroxysmal atrial fibrillation, CKD 3, CHF, type 2 diabetes, GERD, hypertension and hyperlipidemia presented to the emergency department for evaluation with concern for shortness of breath. According to EMS, they were called to the facility for possible fever. Upon their arrival, the patient was noted to be saturating 60% on her home 4 L nasal cannula and respiratory distress. Placed on nonrebreather and then escalated to CPAP with only slight improvement in her clinical status. Patient states that is having shortness of breath, she has no other concerns or complaints. I am unable to get good history from her, however, due to respiratory distress and clinical picture upon arrival. Per medical record review as well as POA, she has DNR/DNI status Related Data Home Medications ?Medication ?Instructions ?Recorded ?Confirmed simvastatin 20 mg tablet 20 mg PO HS 03/06/18 07/26/25 escitalopram oxalate 20 mg tablet 20 mg PO DAILY 11/10/23 07/26/25 fluticasone 250 mcg-salmeterol 50 1 ea inhalation BIDRT 11/10/23 07/26/25 mcg/dose blistr powdr for inhalation (Ishan Inhub) oxybutynin chloride 10 mg 20 mg PO DAILY 11/10/23 07/26/25 tablet,extended release 24 hr esomeprazole magnesium 40 mg 40 mg PO DAILY 05/09/24 07/26/25 capsule,delayed release metoprolol succinate 50 mg 50 mg PO DAILY 05/09/24 07/26/25 tablet,extended release 24 hr fluticasone propionate 50 2 spray intranasal DAILY 05/12/24 07/26/25 mcg/actuation nasal spray,suspension calcium carbonate (Calcium 600) 600 mg PO DAILY 07/08/24 07/26/25 glucosamine sulfate 2KCl 1,000 mg 1,000 mg PO DAILY 07/08/24 07/26/25 tablet multivitamin 1 tab PO DAILY 07/08/24 07/26/25 acetaminophen 500 mg tablet 500 mg PO Q6HP PRN Mild Pain 04/02/25 07/26/25 (Scale Score 1-4) ipratropium 0.5 mg-albuterol 3 mg 3 ml inhalation Q6HP PRN Shortness 04/02/25 07/26/25 (2.5 mg base)/3 mL nebulization Of Breath soln lidocaine 4 % topical patch 1 patch topical DAILY 04/02/25 07/26/25 montelukast 10 mg tablet 10 mg PO PM 04/02/25 07/26/25 cyanocobalamin (vitamin B-12) 1,000 mcg PO DAILY 05/09/25 07/26/25 1,000 mcg tablet famotidine 40 mg tablet 40 mg PO HS 05/09/25 07/26/25 menthol 5 % topical gel (Biofreeze 1 ea topical QIDP PRN Pain 05/09/25 07/26/25 (menthol)) vit C 250 mg-vit E 90 mg-zinc 40 1 tab PO BID 05/09/25 07/26/25 mg-copper 1 [id number] capsule (PreserVision AREDS-2) Previous Rx's ?Medication ?Instructions ?Recorded pregabalin 75 mg capsule 75 mg PO BID #60 caps 05/13/25 Allergies Allergy/AdvReac Type Severity Reaction Status Date / Time pollen extracts (POLLEN Allergy Intermediate ASTHMA Verified 07/26/25 10:32 EXTRACTS) azithromycin Allergy Redness of Verified 07/26/25 10:32 Skin ceftriaxone (From Rocephin) Allergy Redness of Verified 07/26/25 10:32 Skin PFSH PFSH Disclaimer: The information contained in this section may have been updated after the patient was seen, as this information can be updated by other users. Medical History Abnormal ECG Former smoker BRIDGETTE (obstructive sleep apnea) Edema PAF (paroxysmal atrial fibrillation) Asthma Fibrosis of lung Decreased diffusion capacity of lung Pulmonary emphysema Chronic respiratory failure with hypoxia Recurrent pneumonia Acute and chronic respiratory failure with hypoxia Lumbar radiculopathy Degenerative disc disease, lumbar Paratracheal lymphadenopathy CAP (community acquired pneumonia) RICHIE (acute kidney injury) Hypertensive urgency Elevated brain natriuretic peptide (BNP) level Hypertensive emergency CKD (chronic kidney disease) stage 3, GFR 30-59 ml/min Pneumonia Allergic rhinitis Colon polyps Hemorrhoids, internal Osteoporosis Herpes zoster Closed left ankle fracture Closed left hip fracture Lumbar spinal stenosis Lumbar compression fracture Ocular melanoma COPD (chronic obstructive pulmonary disease) Mediastinal lymphadenopathy Sleep apnea Hyperlipidemia Neuropathy Depression GERD (gastroesophageal reflux disease) Arthritis Hypertension Diabetes Surgical History History of right knee joint replacement History of left knee replacement History of left hip replacement History of left ankle joint replacement 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 History of arthroplasty of right knee History of appendectomy Family History Other Heart attack Social History Smoking Status: Former smoker alcohol intake: never substance use type: denies use current occupational status: other Travel in the last 8 weeks?: None household members: none caffeine: Yes Have you lived/traveled outside [place] in past 30 days?: No Contact w/someone who lives/traveled outside US past 30 days?: No Exposure to someone with infectious disease in past 14 days?: No Do you have a fever (greater than 100.4 F or 38 C)?: No Have you tested positive for COVID-19?: No Exposed to someone with COVID-19 in past 14 days?: No Do you have a sore throat?: No Do you have a cough?: No Do you have any weakness?: No Do you have any diarrhea?: No Are you experiencing any unusual bleeding?: No Do you have any muscle aches/pain?: No Do you have any abdominal pain?: No Are you experiencing loss of taste or smell?: No Other Medical History Have you received the Flu Vaccine for this season: No Have you received the Pneumonia Vaccine: No ROS Obtained: Yes unobtainable due to mental condition Physical Exam General General appearance: alert and in distress Head Head exam: atraumatic and normocephalic Eye Eye exam: Present normal appearance, PERRL and EOMI ENT ENT exam: Present normal exam and normal oropharynx Neck Neck exam: Present normal inspection and full ROM Chest Chest inspection: Present normal inspection and symmetric chest wall rise Respiratory Respiratory exam: Present respiratory distress, accessory muscle use, prolonged expiratory phase and other (Significant diminished breath sounds bilaterally); Absent normal lung sounds bilaterally Cardiovascular Cardiovascular exam: Present regular rate; Absent normal rhythm Abdominal Exam Abdominal exam: Present soft; Absent distention or tenderness Extremities Exam Extremities exam: Present edema and other (Left greater than right lower extremity edema with chronic skin changes) Neurological Exam Neurological exam: Present alert and other (Generally weak without any focal deficits) HEART Score HEART Score HEART Score assessment performed?: Yes History (anamnesis): Slightly suspicious ECG: Non-specific disturbance Age: >65 years Risk factors: Atherosclerosis history Troponin: </= normal limit HEART Score: 5 Critical Care Critical Care Time Critical Care Time: Yes Attestation: On 08/11/25, the high probability of a clinically significant, sudden or life threatening deterioration of the following system(s) required my full and direct attention, intervention and personal management. The time I documented below is in addition to time spent performing reported procedures but includes the following listed in this critical care notation. Total Time Total Critical Care Time: 45 Medical Decision Making Gabriele Inquiry Pt receiving controlled substance: No Vital Signs Vital Signs: 08/11/25 18:53 08/11/25 19:00 08/11/25 19:13 Temperature 98.0 F Temperature Source Temporal Artery Scan Pulse Rate [Left Radial] 80 Respiratory Rate 30 H Blood Pressure [Right Arm] 138/58 L Blood Pressure Mean [Right Arm] 84 02 Sat by Pulse Oximetry 95 97 Oxygen Delivery Method BiPAP BiPAP Fraction of Inspired Oxygen 45 Lab Data Labs: Lab Results 08/11/25 18:55: WBC 8.7, RBC 3.25 L, Hgb 9.4 L, Hct 30.9 L, MCV 95.1, MCH 28.9, MCHC 30.4 L, RDW 15.3, Plt Count 109 L, MPV 10.3, Neut % (Auto) 76.7, Lymph % (Auto) 12.9, [place] % (Auto) 7.4, Eos % (Auto) 1.2, Baso % (Auto) 0.2, Neut # (Auto) 6.6, Lymph # (Auto) 1.1, [place] # (Auto) 0.6, Eos # (Auto) 0.1, Baso # (Auto) 0.0, D-Dimer 1.18 H, Sodium 140, Potassium 5.2 H, Chloride 102, Carbon Dioxide 31 H, Anion Gap 12.2, BUN 44 H, Creatinine 2.60 H, Estimated Creat Clear 22, Estimated GFR 17 L*, Est GFR ( Amer) 21 L, Glucose 157 H, Lactate 1.2, Calcium 9.1, Magnesium 1.6, Total Bilirubin 0.6, AST 44 H, ALT 20, Alkaline Phosphatase 92, Troponin I 0.01, C-Reactive Protein 34.1 H, NT-Pro-B Natriuret Pep 2990 H, Total Protein 7.2, Albumin 4.1, Globulin 3.1, Albumin/Globulin Ratio 1.3, Procalcitonin 0.238, TSH 1.09, Thyroxine (T4) 9.3 08/11/25 19:10: VBG pH 7.27 L, VBG pCO2 58.5 H, VBG pO2 34.6, VBG HCO3 26.0, VBG Total CO2 27.8 H, VBG O2 Saturation 61.4, VBG Base Excess -1.0, VBG Lactic Acid 1.5 08/11/25 19:19: SARS-CoV-2 (PCR) Not detected, Influenza A Untype (PCR) Not detected, Influenza Type B (PCR) Not detected 08/11/25 18:55 08/11/25 18:55 Response Orders (Tests/Meds): ED MEDICATIONS Generic Name Dose Route Start Last Admin Trade Name Freq PRN Reason Stop Dose Admin Albuterol/Ipratropium 3 ml 08/11/25 21:06 Ipratropium/Albuterol 3 Ml Neb 09/10/25 21:05 Q4HP PRN Shortness Of Breath Or Wheezing Albuterol/Ipratropium 3 ml 08/12/25 02:00 Ipratropium/Albuterol 3 Ml Neb 09/11/25 01:59 Q6RT GALA Guaifenesin 200 mg 08/11/25 21:12 Guaifenesin 200mg/10ml Syrup Udc PO 09/10/25 21:11 Q4HP PRN Cough Heparin Sodium (Porcine) 5,000 unit 08/12/25 09:00 Heparin Sodium 5,000 Unit/Ml Vial SUBCUT 09/11/25 08:59 TID GALA Levofloxacin/Dextrose 750 mg in 150 mls @ 100 mls/hr 08/11/25 20:30 08/11/25 20:38 Levofloxacin 750mg/150ml Premix IV 08/11/25 21:59 100 mls/hr ONCE ONE Administration Levofloxacin/Dextrose 750 mg in 150 mls @ 100 mls/hr 08/12/25 20:00 Levofloxacin 750mg/150ml Premix IV 08/22/25 19:59 Q24H GALA Sodium Chloride 3 ml 08/11/25 21:12 Sodium Chloride 3% 15ml [facility] 09/10/25 21:11 ONCE PRN INDUCE SPUTUM COLLECTION Discontinued Medications Generic Name Dose Route Start Last Admin Trade Name Freq PRN Reason Stop Dose Admin Albuterol Sulfate 20 mg 08/11/25 19:21 08/11/25 20:05 Albuterol 0.083% 2.5 Mg/3 Ml [facility] 08/11/25 19:22 20 mg ONCE ONE Administration Albuterol/Ipratropium 9 ml 08/11/25 18:54 08/11/25 19:12 Ipratropium/Albuterol 3 Ml [facility] 08/11/25 18:55 9 ml ONCE ONE Administration Bumetanide 1 mg 08/11/25 20:17 08/11/25 20:38 Bumetanide 1mg/4ml Vial IV 08/11/25 20:18 1 mg ONCE ONE Administration Magnesium Sulfate 2 gm in 50 mls @ 50 mls/hr 08/11/25 18:54 08/11/25 19:15 Magnesium Sulfate 2gm/50ml Premix IV 08/11/25 19:53 50 mls/hr ONCE ONE Administration Methylprednisolone Sodium Succinate 125 mg 08/11/25 18:54 08/11/25 19:16 Methylprednisolone Sod Succ 125mg Vial IV 08/11/25 18:55 125 mg ONCE ONE Administration ORDERS Category Date Time Status Consult to Case Management [CONS] Routine Cons 08/11/25 20:59 Active Consult to Pulmonology [CONS] Routine Cons 08/12/25 07:00 Active Nutrition Consult [CONS] Routine Cons 08/11/25 20:59 Active CXR --portable [XR chest portable] Stat Exams 08/11/25 18:54 Completed BNP [NT Pro Brain Natriuretic Pep.] Stat Lab 08/11/25 18:55 Completed CRP [C-Reactive Protein] Stat Lab 08/11/25 18:55 Completed Complete Blood Count Auto Diff DAILY Lab 08/12/25 06:00 Ordered Complete Blood Count Auto Diff Stat Lab 08/11/25 18:55 Completed Comprehensive Metabolic Panel AMLAB Lab 08/12/25 06:00 Ordered Comprehensive Metabolic Panel Stat Lab 08/11/25 18:55 Completed D-Dimer Stat Lab 08/11/25 18:55 Completed Lactic Acid Stat Lab 08/11/25 18:55 Completed MAG [Magnesium] Stat Lab 08/11/25 18:55 Completed Procalcitonin Stat Lab 08/11/25 18:55 Completed Rapid PCR Covid and Flu A/B Stat Lab 08/11/25 19:19 Completed T4 (Thyroxine) Stat Lab 08/11/25 18:55 Completed TSH [Thyroid Stimulating Hormone] Stat Lab 08/11/25 18:55 Completed Trop I [Troponin I] Stat Lab 08/11/25 18:55 Completed Troponin I Q3H Lab 08/11/25 22:00 Ordered Troponin I Q3H Lab 08/12/25 01:00 Ordered Blood Culture Stat Micro 08/11/25 19:10 Received Venous Blood Gas Stat RT 08/11/25 19:10 Completed ECG Data Tracing #1: Attestation: I reviewed this ECG and interpreted as documented below: ECG Narrative: I independently interpreted EKG at 1856 and noted what appears to be atrial fibrillation with a ventricular to 79 bpm. Difficult to determine baseline given motion effect from respiratory efforts. Right bundle branch block. No acute ST changes concerning for STEMI ECG initial impression date: 08/11/25 ECG initial impression time: 18:56 MDM Narrative Medical Decision Narrative: In summary, this patient is a 84-year-old female presenting to the Emergency Department for evaluation of respiratory distress, low O2 saturation at nursing facility. She also reportedly had fever earlier today. Differential diagnoses considered include but are not limited to pneumonia, viral syndrome, respiratory failure, COPD exacerbation, CHF exacerbation, sepsis, among others. Ruling out the most morbid conditions drove assessment. It should be noted patient's history includes COPD, CKD, BRIDGETTE, paroxysmal atrial fibrillation, hypertension hyperlipidemia, diabetes, chronic respiratory failure, obesity, GERD which may or may not be at goal therapy. This complicates all aspects of care by increasing patient's risk for morbidity. I reviewed patient's past medical records and noted prior admission in the past for RICHIE as well as prior evaluations for respiratory failure. Patient arrives in respiratory distress with accessory muscle use, prolonged expiratory phase, low O2 saturation despite being on EMS CPAP. She has significant diminished breath sounds bilaterally. She is placed on BiPAP immediately on arrival given her respiratory status. Nursing staff confirmed DNR/DNI status with POA. She was given DuoNebs x 3 as well as a continuous albuterol neb in addition to IV methylprednisolone and IV magnesium for severe COPD exacerbation. Workup included lab evaluation to evaluate infectious, metabolic, cardiac derangements of her current presentation as well as chest x-ray. I independently interpreted x-ray prior to the radiologist read and noted bibasilar infiltrates concerning for pneumonia versus CHF. Please see their read for final interpretation. Given this, I did go ahead and elect to administer IV Bumex as well as IV Levaquin, as she has allergy to Rocephin and azithromycin per medical record review. Labs were obtained that demonstrated reassuring CBC with no significant leukocytosis. She does have mild worsening and chronic anemia. Chemistry demonstrates very mild hyperkalemia with potassium of 5.2. Creatinine is actually improved from her prior at 2.6, down from above 6. BNP is elevated, though not as high as prior. CRP is elevated. Initial troponin is reassuring. D-dimer is elevated in the setting of left greater than right lower extremity swelling, but I had interactive discussion with hospitalist who is going to be admitting the patient for respiratory failure and we feel the risk of contrast would outweigh benefit at this time. Plan for ultrasound and further assessment in the morning. I feel PE is less likely given clinical improvement after nebs. On subsequent reassessment, the patient is doing much better after nebs. She has improved aeration and improved breath sounds bilaterally. She is empirically covered for pneumonia and also has been treated for possible CHF exacerbation given concerns for volume overload on x-ray. She was admitted on BiPAP in stable condition for acute on chronic respiratory failure
--- NOTE | 2025-08-11 21:31 | PC.NURSE ---
report called to NEO Lopez
[2025-08-11 21:56] LABS: ABG HCO3 28.3 mmhg (22.0-26.0); ABG PH 7.31 mmol/L (7.35-7.45); ABG TCO2 30.1 mmhg (23-27)
[2025-08-11 22:03] LABS: Source Right Radial
[2025-08-11 22:04] LABS: ABG PCO2 57.1 mmhg (35.0-45.0); ABG PO2 48.1 mmhg (80-100)
[2025-08-11 22:50] LABS: Troponin I 0.16 ng/ml (0.00-0.034)
[2025-08-12] VITALS (18 sets, daily range): BP systolic 95–136; BP diastolic 45–64; PULSE 61–77; RESP 14–26; TEMP 36.8–37.3; O2SAT 88–97; BMI 36.8
[2025-08-12] MEDS: IPRATROPIUM/ALBUTEROL 3 ML NEB IH ×5 (02:10→23:16)
[2025-08-12] MEDS: SODIUM CHLORIDE 3% 15ML NEB 3 ML IH (02:10)
[2025-08-12 03:12] LABS: Troponin I 0.25 ng/ml (0.00-0.034)
[2025-08-12] MEDS: METHYLPREDNISOLONE SOD SUCC 40MG VIAL 40 MG IV ×3 (05:05→20:20)
[2025-08-12 05:10] LABS: POC Glucose,Bedside 207 gm/dL (70-110)
[2025-08-12 05:30] LABS: Hematocrit 29.3 % (37.0-47.0); Hemoglobin 8.9 g/dL (12.2-16.2); Immature Granulocytes % 0.9 %; Mean Corpuscular HGB Conc 30.4 g/dL (31.8-35.4); Mean Corpuscular Hemoglobin 28.8 pg (27.0-31.2); Mean Corpuscular Volume 94.8 fl (81-99); Nucleated Red Blood Cells % 0 %; Platelet Count 103 K/mm3 (142-424); Red Blood Count 3.09 M/mm3 (4.20-5.40); Red Cell Distribution Width-SD 52.0 fL; White Blood Count 10.3 K/mm3 (4.8-10.8)
[2025-08-12 05:35] LABS: Albumin Level 4.1 g/dl (3.5-5.0); Chloride 102 mmol/L (98-107); Sodium 139 mmol/L (136-145)
[2025-08-12 05:36] LABS: Potassium 5.0 mmoL/L (3.5-5.1)
[2025-08-12 05:38] LABS: Alanine Aminotransferase 22 U/L (12-78); Anion Gap 10.0 mEq/L (5-15); Aspartate Amino Transferase 41 U/L (14-36); Blood Urea Nitrogen 45 mg/dl (7-17); Carbon Dioxide 32 mmol/L (22.0-30.0); Creatinine Clearance Estimated 21 mL/min (50-200); Creatinine,Serum 2.70 mg/dl (0.52-1.04); Estimated Glomerular Filt Rate 17 ml/min (>60); GFR (African American) 20 ML/MIN (>60)
[2025-08-12 05:39] LABS: Albumin/Globulin Ratio 1.4 (1.1-1.8); Alkaline Phosphatase 77 U/L (38-126); Bilirubin,Total 0.4 mg/dl (0.2-1.3); Calcium 8.6 mg/dl (8.4-10.2); Globulin 3.0 g/dL (1.3-3.2); Glucose 183 mg/dl (74-100); Total Protein,Serum 7.1 g/dl (6.3-8.2)
[2025-08-12 05:56] LABS: Troponin I 0.30 ng/ml (0.00-0.034)
[2025-08-12 06:36] LABS: RBC Morphology Normal; Total Cells Counted 100
--- OUTSIDE RECORDS SUMMARY | 2025-08-12 07:48 | XMS_ITS | Clinical Summary ---
Author Organization [facility] Address [address] [place] [address] Care Team Providers Care Oyster Preparer Name Role Phone Allan Adamson MD Primary Care Provider [phone] Allergies No known active allergies Medications lisinopril [...] (two) times a day. Active HYDROcodone-rikki taminophen ([place]) 5-325 MG tablet Active oxybutynin XL (Ditropan-XL) [...] of Treatment Not on file Insurance MEDICARE [facility] Care Teams Oyster Preparer Relationship Specialty Start Date End Date Allan Adamson MD [facility] [place] [address] PCP - General 01/06/21
--- OUTSIDE RECORDS SUMMARY | 2025-08-12 07:50 | XMS_ITS | Patient Health Record ---
[facility] Address [address] [place] [id number] Care Team Providers Care Fare Register Repairer Name Role Phone Allan Adamson Primary Care Provider Ata Vences Unavailable [phone] Yvette Harris Unavailable [phone] Allergies No Known Allergies Results Component Value Reference Range Notes H-UA Reviewed date:02/24/2025 04:52:18 PM Interpretation: Performing [...] 3-5 0-5 #/hpf UBACT Trace NONE /lpf H-BMP Reviewed date:04/05/2025 08:37:42 AM Interpretation: Performing [...] 0.0 0-0.2 K/mm3 NRBC# 0 IG# 0.16 CBC Reviewed date:04/01/2025 04:10:32 PM Interpretation: Performing Lab: Notes/Report: M-Venous Blood Gas Reviewed date:04/02/2025 11:02:14 AM Interpretation: Performing Lab: Notes/Report: PHVEN 7.37 7.31-7.41 mmol/L AAC4SVH 59.8 35-51 mmol/L CRITICAL RESULT Results called to:DARLING RN by RT Oni, MEDICAL RECORDS TECHNICIAN at 0307 on 04/02/25 PO2VEN 36.9 28-40 mmol/L DSW2CJF 34.0 23-30 mmol/L XCM1MDX 35.9 23-27 mmol/L BEVEN 8.8 -2.4-2.3 mmol/L P6QCUCSI 71.7 50-70 % LACVEN 1.7 0.4-2.0 mmol/L Estimated Average Glucose Reviewed date:12/22/2024 09:28:32 AM Interpretation:128 Performing Lab: Notes/Report: CLIA: [id number] Tristian Amado MD, Nipple Threader [address] [facility] , [address], [place] [address] Test performed by [facility] Estimated Average Glucose (eAG) 128 Estimated Average Glucose (eAG) is calculated using the equation eAG = (28.7 x HbA1c) - 46.7 based on the guidelines established by the ADA. If the patient has certain diseases including kidney disease, sickle cell anemia, thalassemia, or is taking medications such as dapsone, erythropoietin, or iron, eAG should not be evaluated. H-CBC Reviewed date:08/13/2024 09:36:50 AM Interpretation: Performing [...] Interpretation:suggests contamination Performing Lab: Notes/Report: suggests contamination UA Reviewed date:03/30/2025 01:01:11 PM Interpretation:Abnormal Performing Lab: Notes/Report: Abnormal CBC Venipuncture (in house) Reviewed date:12/27/2024 09:21:10 [...] 26 Performing Lab: Notes/Report: Test performed by [facility] [address] [place] [address] , [address], [place] [address] Tristian Amado MD, Nipple Threader CLIA: [id number] Sodium 142 135-145 mmol/L Potassium 5.0 3.5-5.3 mmol/L Chloride 99 97-108 mmol/L CO2 34 22-32 mmol/L Glucose 61 65-99 mg/dL BUN 51 8-23 mg/dL Creatinine 1.87 0.50-1.00 mg/dL Calcium 9.3 8.6-10.4 mg/dL eGFR by Creatinine 26 >59 mL/min/1.73m2 P-Hemoglobin A1C Reviewed date:12/22/2024 09:28:32 AM Interpretation:6.1 Performing Lab: Notes/Report: Test performed by [facility] [address] [place] [address] , [address], [place] [address] Tristian Amado MD, Nipple Threader CLIA: [id number] Hemoglobin A1C 6.1 <5.7 % The following HbA1c ranges recommended by the [place] [employer] (ADA) may be used as an aid in the diagnosis of diabetes mellitus. HbA1c Suggested Diagnosis >=6.5% Diabetic 5.7% - 6.4% Pre-Diabetic <5.7% Non-Diabetic P-Magnesium Reviewed date:12/22/2024 09:28:32 AM Interpretation: Normal Performing Lab: Notes/Report: Test performed by [facility] [address] [place] [address] , [address], [place] [address] Tristian Amado MD, Nipple Threader CLIA: [id number] Magnesium 1.9 1.6-2.4 mg/dL H-Urine Culture and Sensitiv ity Reviewed date:03/15/2025 [...] Lab: Notes/Report: CUU Multiple organisms, suggests contamination. Urine Culture and Sensitivit y Reviewed date:03/31/2025 02:29:25 PM Interpretation:No Growth Performing Lab: Notes/Report: No Growth Iron Reviewed date:04/02/2025 11:02:14 AM Interpretation: Performing Lab: Notes/Report: H-Sputum Culture with Gram S talat Reviewed date:04/07/2025 01:00:59 PM Interpretation: Performing Lab: Notes/Report: Cancel Comments Cancelled via OM: Order cancelled - Patient discharged Comment: Induce w/3ml NS neb tx if necessary CMP Reviewed date:04/23/2025 11:42:34 AM Interpretation:Abnormal Performing Lab: Notes/Report: Abnormal BMP Reviewed date:05/03/2025 04:19:34 PM Interpretation: Performing Lab: Notes/Report: H-CBC Reviewed date:05/10/2025 09:28:19 AM Interpretation: Performing [...] Performing Lab: Notes/Report: PHVEN 7.52 7.31-7.41 mmol/L SWQ5QRB 25.1 35-51 mmol/L PO2VEN 163.1 28-40 mmol/L ZBB1GOI 19.8 23-30 mmol/L TSL2THF 20.6 23-27 mmol/L BEVEN -3.1 -2.4-2.3 mmol/L U2RWCOVP 98.9 50-70 % LACVEN 1.5 0.4-2.0 mmol/L [...] NS neb tx if necessary H-CBC Reviewed date:05/10/2025 09:28:19 AM Interpretation: Performing [...] AST 42 14-36 U/L Delta: 27 on 09/14/25-0545 ALT 12 12-78 U/L TP 6.2 6.3-8.2 [...] AGRATIO 1.1 1.1-1.8 ALP 80 38-126 U/L CMP Reviewed date:06/29/2025 01:17:30 PM Interpretation: Performing [...] - as directed 12/03/2024 Activ e Nystatin [id number] UNIT/GM 1 application beneath b breasts Externally [...] Administered PNEUMOVAX 23 VACCINE IM Intramuscular 06/12/2016 Administ ered Prevnar (PCV13) IM Intramuscular 11/01/2014 Administered Shingrix IM Intramuscular 01/13/2019 Administered Shingrix IM Intramuscular 03/18/2019 Administered Tetanus Tdap-Adacel (over 7yrs) IM Intramuscular 10/29/2013 Administered xFluzone High Dose-private (65yr&older) IM Intramuscular 05/13/2013 Administered xFluzone High Dose-private (65yr&older) Unknown 05/14/2019 Administered XXXDexamethasone IM Intramuscular 02/01/2006 Administered Problems Problem Type SNOMED Code ICD Code Onset Dates Problem Status W/U Status Risk Notes Problem Hyperlipidaemia (53962701) Hyperlipemia (272.4) Active confirmed Problem Hyperlipidemia (59791886) Hyperlipidemia (272.4) Active confirmed Problem Essential hypertension (83567546) Essential (primary) hypertension (I10) Active confirmed Problem Tear film insufficiency (23490187) Dry eyes, bilateral (H04.123) Active confirmed Problem History of malignant melanoma of the skin (009855387310) History of melanoma (Z85.820) Active confirmed Problem Essential hypertension (68572360) Essential hypertension (I10) Active confirmed Problem Hypertriglyceridemia (058219408) Hypertriglyceridemia (E78.1) Active confirmed Problem Long-term current us e 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 (990595620) 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) Active confirmed Problem Obstructive sleep apnea (56965241) Obstructive sleep apnea (G47.33) Active confirmed Problem Hypokalemia (45779342) History of hypokalemia (Z86.39) Active confirmed Problem Mixed anxiety and depressive disorder (933582894) Depression with anxiety (F41.8) Active confirmed Problem Acute exacerbation o f chronic obstructive airways disease (164407473) COPD exacerbation (J44.1) Active confirmed Problem Mixed hyperlipidemia (671938459) Mixed hyperlipidemia (E78.2) Active confirmed Problem Hypomagnesemia (396964077) Hypomagnesemia (E83.42) Active confirmed Problem Allergic rhinitis (25689992) Allergic rhinitis, unspecified (J30.9) Active confirmed Problem Chronic pulmonary edema (87178912) Chronic pulmonary edema (J81.1) Active confirmed Problem Chronic respiratory failure (86838926) Chronic respiratory failure, unspecified whether with hypoxia or hypercapnia (J96.10) Active confirmed Problem Zkuli-ik-vcopekm hypoxemic respiratory failure (77360840651586024) Acute and chronic respiratory failure with hypoxia (J96.21) Active confirmed Problem Abnormal findings on diagnostic imaging of breast (948105295) Other abnormal and inconclusive findings on diagnostic imaging of breast (R92.8) Active confirmed Problem History of polyp of colon (situation) (359699997) History of colon polyps (Z86.010) Active confirmed Problem Chronic pain (22181508) Other chronic pain (G89.29) Active confirmed Problem Pulmonary emphysema (62932156) Pulmonary emphysema, unspecified emphysema type (J43.9) Active confirmed Problem Primary osteoarthritis (724224546) Primary osteoarthritis involving multiple joints (M15.0) Active confirmed Problem Gastroesophageal reflux disease (disorder) (267529757) Chronic GERD (K21.9) Active confirmed Problem COPD - Chronic obstructive pulmonary disease (16090029) Chronic obstructive pulmonary disease, unspecified COPD type (J44.9) Active confirmed Problem Acute exacerbation o f chronic obstructive airways disease (379659455) Acute exacerbation of chronic obstructive pulmonary disease (COPD) (J44.1) Active confirmed Problem Gastroesophageal reflux disease (700687587) Gastroesophageal reflux disease, esophagitis presence not specified (K21.9) Active confirmed Problem Neuropathy (927217185) Neuropathy (G62.9) Active confirmed Problem Allergic rhinitis (84572936) Allergic rhinitis (J30.9) Active confirmed Problem Lumbar spinal stenosis (53485587) Spinal stenosis, lumbar (M48.06) Active confirmed Problem Osteoporosis (74804060) Osteoporosis (M81.0) Active confirmed Problem Cardiac arrhythmia (960488988) Atrial dysrhythmia (I49.8) Active confirmed Problem Anemia (696976983) Anemia, unspe cified type (D64.9) Active confirmed Problem Sleep apnea (10739748) Sleep apnea, unspecified type (G47.30) Active confirmed Problem Hyperlipidaemia (88311392) Hyperlipidemia, unspecified hyperlipidemia type (E78.5) Active confirmed Problem Polyneuropathy due t o type 2 diabetes mellitus (454074131) 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) Active confirmed Problem Pcukh-sp-snqvjei hypoxemic respiratory failure (93376533437947669) Acute on chronic respiratory failure with hypoxia (J96.21) Active confirmed Problem Diabetes mellitus type 2 (disorder) (43315357) DM2 (diabetes mellitus, type 2) (E11.9) Active confirmed Problem Atrial ectopic (740726027) Atrial ectopic (I49.1) Active confirmed Problem Low back pain (673733147) Chronic right-sided low back pain without sciatica (M54.5) Active confirmed Problem Type II diabetes mellitus without complication (326248022) Type 2 diabetes mellitus without complication, without long-term current use of insulin (E11.9) Active confirmed Problem Cramp in lower leg associated with rest (347829170) Leg cramps, sleep related (G47.62) Active confirmed Problem 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, choroid, 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 Problem Hypertensive urgency (205864708) Hypertensive urgency (I16.0) Active confirmed Problem Urge incontinence of urine (23202045) Urge incontinence of urine (N39.41) Active confirmed Problem Sleep apnea (25608378) Sleep apnea in adult (G47.30) Active confirmed Problem Arthritis of right hip (1240111309743785) Arthritis of right hip (M16.11) Active confirmed Problem Deformity of foot (finding) (805895419) Deformity of foot, unspecified laterality (M21.969) Active confirmed Problem Type II diabetes mellitus without complication (960642727) Type 2 diabetes mellitus without complication, unspecified whether jail insulin use (E11.9) Active confirmed Problem Diastolic dysfunctio n (1082801) Diastolic dysfunction (I51.89) Active confirmed Problem Osteomyelitis (56816607) Osteomyelitis of toe of right foot (M86.9) Active confirmed Problem Gastroesophageal reflux disease (234068693) Gastroesophageal reflux disease, unspecified whether esophagitis present (K21.9) Active confirmed Problem Diabetes mellitus without complication (551269907) 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, 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) Active confirmed Problem Chronic kidney disease stage 3B (disorder) (405902190) Stage 3b chronic kidney disease (CKD) (N18.32) Active confirmed Problem Chronic kidney disease stage 3A (disorder) (578583427) Stage 3a chronic kidney disease (CKD) (N18.31) Active confirmed Problem Anemia (862236436) Acute anemia (D64.9) Active confirmed Problem Abnormal gait (79509088) Inability to bear weight (R26.89) Active confirmed Problem Left ankle joint deformity (M21.962) Active confirmed Vital Signs Heart Rate 79 /min 07/13/2025 Respiratory Rate 16 /min 07/13/2025 Blood pressure diastolic 70 mm Hg 07/13/2025 Height 65.50 in 04/22/2025 Blood pressure systolic 145 mm Hg 07/13/2025 Weight 190.6 lbs 07/13/2025 BMI 32.51 kg/m2 04/22/2025 Encounters Encounter Location Date Provider Diagnosis [place] [id number] [place] [id number] 08/25/2024 Yvette Harris Left ankle joint deformity M21.962 ; Acute anemia D64.9 ; Neuropathy G62.9 ; Hyperlipidemia, unspecified hyperlipidemia type E78.5 ; Hypomagnesemia E83.42 ; Acute on chronic respiratory failure with hypoxia J96.21 ; Acute left ankle pain M25.572 ; Left ankle instability M25.372 ; Hypoxia R09.02 ; Generalized weakness R53.1 ; Type 2 diabetes mellitus without complication, unspecified whether jail insulin use E11.9 ; Essential (primary) hypertension [...] R53.81 and Leg cramps, sleep related G47.62 [facility] [address] [facility] [address] [facility] [address] [place] [id number] 09/22/2024 Allan Hanover Essential hypertensi on I10 ; Chronic obstructive pulmonary disease, unspecified COPD type J44.9 ; Dry eyes, bilateral H04.123 ; Depression with anxiety F41.8 ; Gastroesophageal reflux disease, esophagitis presence not specified K21.9 ; Hypomagnesemia E83.42 ; Debility R53.81 ; Allergic rhinitis J30.9 ; Osteoporosis M81.0 and Obstructive sleep apnea G47.33 [facility] [address] [facility] [address] [place] [id number] 12/21/2024 Allan Juan Diego Type 2 diabetes rere itus without complication, without long-term current use of insulin E11.9 ; Chronic respiratory failure, unspecified whether with hypoxia or hypercapnia J96.10 ; Other hemorrhoids K64.8 ; BRBPR (bright red blood per rectum) K62.5 ; Hypomagnesemia E83.42 ; Stage 3b chronic kidney disease (CKD) N18.32 and Chronic obstructive pulmonary disease, unspecified COPD type J44.9 [address] [place] [id number] 04/13/2025 Yvette Harris Chronic pulmonary [place] [...] without complication, unspecified whether jail insulin use E11.[address] [id number] 04/27/2025 Yvette Harris Chronic pulmonary [place] [...] Peripheral edema R60.9 and Dry skin L85.[address] [id number] 05/18/2025 Yvette Harris Acute pneumonia J18. 9 [...] without complication, unspecified whether jail insulin use E11.9 [place] [id number] [id number] 05/25/2025 Yvette Harris Acute pneumonia J18. 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 use E11.9 [place] [address] [place] [id number] 06/15/2025 Yvette Harris Chronic pulmonary [place] [...] Peripheral edema R60.9 and Dry skin L85.3 [place] [address] [place] [id number] 06/22/2025 Yvette Harris Chronic pulmonary [place] [...] Peripheral edema R60.9 and Dry skin L85.3 [place] [address] [place] [id number] 06/29/2025 Yvette Harris Chronic pulmonary [place] [...] and DM2 (diabetes mellitus, type 2) E11.[address] [place] [id number] 07/13/2025 Yvette Harris Chronic pulmonary [place] [...] Candidiasis of skin B37.2 and Osteoporosis M81.0 [facility] [address] [facility] [address] [place] [id number] 08/21/2024 Allan Hanover [facility] [address] [facility] [address] [place] [id number] 09/07/2024 Allan Hanover Diabetic polyneuropa thy associated with type 2 diabetes mellitus E11.42 [facility] [address] [facility] [address] [place] [id number] 09/07/2024 Allan Hanover Type 2 diabetes rere itus without complication, unspecified whether jail insulin use E11.9 ; Peripheral edema R60.9 and Debility R53.81 [facility] [address] [facility] [address] [place] [id number] 09/08/2024 Allan Hanover Type 2 diabetes rere itus without complication, unspecified whether termite exterminator insulin use E11.9 [facility] [address] [facility] [address] [place] [id number] 09/22/2024 Allan Hanover [facility] [address] [facility] [address] [place] [id number] 09/24/2024 Allan Hanover Allergic rhinitis J3 0.9 [facility] [address] [facility] [address] [place] [id number] 11/04/2024 Allan Hanover [facility] [address] [facility] [address] [place] [id number] 11/04/2024 Allan Hanover Gastroesophageal ref lux disease, esophagitis presence not specified K21.9 and Diabetic polyneuropathy associated with type 2 diabetes mellitus E11.42 [facility] [address] [place] [id number] 11/05/2024 Allan Hanover [facility] [address] [place] [id number] 11/12/2024 Allan Hanover [facility] [address] [place] [id number] 11/13/2024 Ata Wilber Vences Essential hypertensi on I10 and Diabetic polyneuropathy associated with type 2 diabetes mellitus E11.42 [facility] [address] [place] [id number] 11/27/2024 Allan Hanover [facility] [address] [place] [id number] 12/03/2024 Allan Hanover Chronic obstructive pulmonary disease, unspecified COPD type J44.9 [facility] [address] [place] [id number] 12/18/2024 Allan Hanover [facility] [address] [place] [id number] 12/21/2024 Allan Hanover Urge incontinence of urine N39.41 and Hyperlipidemia, unspecified hyperlipidemia type E78.5 [facility] [address] [place] [id number] 12/22/2024 Allan Hanover [facility] [address] [place] [id number] 12/23/2024 Allan Hanover [facility] [address] [place] [id number] 12/24/2024 Allan Hanover [facility] [address] [place] [id number] 12/25/2024 Allan Hanover [facility] [address] [place] [id number] 12/28/2024 Allan Hanover [facility] [address] [place] [id number] 12/30/2024 Allan Hanover [facility] [address] [place] [id number] 12/30/2024 Allan Hanover [facility] [address] [place] [id number] 01/04/2025 Allan Hanover [facility] [address] [place] [id number] 02/12/2025 Allan Hanover [facility] [address] [place] [id number] 02/24/2025 Allan Hanover [facility] [address] [place] [id number] 03/02/2025 Allan Hanover [facility] [address] [place] [id number] 03/08/2025 Allan Hanover Diabetic polyneuropa thy associated with type 2 diabetes mellitus E11.42 [facility] [address] [place] [id number] 03/25/2025 Allan Hanover [facility] [address] [place] [id number] 03/29/2025 Allan Hanover [facility] [address] [place] [id number] 03/31/2025 Allan Hanover [facility] [address] [place] [id number] 03/31/2025 Allan Hanover [facility] [address] [place] [id number] 04/01/2025 Allan Hanover [facility] [address] [place] [id number] 04/07/2025 Allan Hanover Diabetic polyneuropa thy associated with type 2 diabetes mellitus E11.42 [facility] [address] [place] [id number] 04/14/2025 Allan Hanover [facility] [address] [place] [id number] 04/15/2025 Allan Hanover [facility] [address] [place] [id number] 04/19/2025 Allan Hanover [facility] [address] [place] [id number] 04/21/2025 Allan Hanover [facility] [address] [place] [id number] 04/21/2025 Yvette Harris [facility] [address] [place] [id number] 04/22/2025 Yvette Harris [facility] [address] [place] [id number] 04/23/2025 Allan Hanover [facility] [address] [place] [id number] 04/28/2025 Yvette Harris [facility] [address] [place] [id number] 05/06/2025 Allan Hanover [facility] [address] [place] [id number] 05/14/2025 Allan Hanover [facility] [address] [place] [id number] 05/19/2025 Allan Hanover [facility] [address] [place] [id number] 05/26/2025 Allan Hanover [facility] [address] [place] [id number] 05/27/2025 Allan Hanover [facility] [address] [place] [id number] 05/31/2025 Allan Hanover [facility] [address] [place] [id number] 06/01/2025 Allan Hanover [facility] [address] [place] [id number] 06/03/2025 Allan Hanover [facility] [address] [place] [id number] 06/15/2025 Yvette Harris [facility] [address] [place] [id number] 06/25/2025 Allan Hanover [facility] [address] [place] [id number] 06/28/2025 Allan Hanover Diabetic polyneuropa thy associated with type 2 diabetes mellitus E11.42 [facility] [address] [place] [id number] 06/29/2025 Allan Hanover [facility] [address] [place] [id number] 08/04/2025 Allan Hanover [facility] [address] [place] [id number] 08/06/2025 Allan Hanover [facility] [address] [place] [id number] 08/10/2025 Allan Hanover Assessments Encounter Date Diagnosis (ICD Code) Assessment Notes Treatment Notes Treatment Clinical Notes Section Notes 08/25/2024 Left ankle joint deformity (ICD-10 - M21.962) 09/07/2024 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) 09/07/2024 Type 2 diabetes mellitus without complication, unspecified whether termite exterminator insulin use (ICD-10 - E11.9) 09/08/2024 Type 2 diabetes mellitus without complication, unspecified whether jail insulin use (ICD-10 - E11.9) 09/22/2024 Essential [...] 06/29/2025 Chronic pulmonary edema (ICD-10 - J81.1) 07/13/2025 Chronic pulmonary edema (ICD-10 - J81.1) [...] stated that she will not do dialysis 06/22/2025 Diabetic polyneuropathy associated with type [...] use of insulin (ICD-10 - E11.9) 07/13/2025 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) 06/29/2025 Chronic respiratory failure, unspecified whether with hypoxia or hypercapnia (ICD-10 - J96.10) 06/29/2025 Chronic obstructive pulmonary disease, unspecified COPD type (ICD-10 - J44.9) 07/13/2025 Chronic respiratory failure, unspecified whether with [...] unspecified hyperlipidemia type (ICD-10 - E78.5) 08/25/2024 Hypomagnesemia (ICD-10 - E83.42) 09/22/2024 Hypomagnesemia (ICD-10 - E83.42) 04/27/2025 Chronic [...] chronic kidney disease (CKD) (ICD-10 - N18.32) 07/13/2025 Chronic obstructive pulmonary disease, unspecified COPD type (ICD-10 - J44.9) 06/29/2025 Hyperlipidemia, unspecified hyperlipidemia type (ICD-10 - E78.5) 06/29/2025 Essential hypertension (ICD-10 - I10) 07/13/2025 Hyperlipidemia, unspecified hyperlipidemia type (ICD-10 - E78.5) 06/22/2025 Essential hypertension (ICD-10 - I10) 05/25/2025 [...] pain (ICD-10 - M25.572) 08/25/2024 Left ankle instability (ICD-10 - M25.372) [...] 06/29/2025 Depression with anxiety (ICD-10 - F41.8) 07/13/2025 Essential hypertension (ICD-10 - I10) 06/29/2025 Gastroesophageal reflux disease, esophagitis presence not specified (ICD-10 - K21.9) 07/13/2025 Depression with anxiety (ICD-10 - F41.8) 06/22/2025 [...] AND IF SLEEPS DURING THE DAY 08/25/2024 Generalized weakness (ICD-10 - R53.1) CONTINUE [...] involving multiple joints (ICD-10 - M15.0) 07/13/2025 Gastroesophageal reflux disease, esophagitis presence not specified (ICD-10 - K21.9) 06/29/2025 Obstructive sleep apnea (ICD-10 - G47.33) 07/13/2025 Primary osteoarthritis involving multiple joints (ICD-10 [...] 2 diabetes mellitus without complication, unspecified whether termite exterminator insulin use (ICD-10 - E11.9) 08/25/2024 Essential [...] J30.9) 06/29/2025 Allergic rhinitis (ICD-10 - J30.9) 07/13/2025 Obstructive sleep apnea (ICD-10 - G47.33) CPAP when sleeping 07/13/2025 Allergic rhinitis (ICD-10 - J30.9) 06/29/2025 Debility [...] 06/29/2025 Anemia, unspecified type (ICD-10 - D64.9) 07/13/2025 Debility (ICD-10 - R53.81) Encouraged out of the room activities; also to continue with PT with focus on transfers 06/29/2025 Peripheral edema (ICD-10 - R60.9) recheck in 1 week; will try [place] 07/13/2025 Anemia, unspecified type (ICD-10 - D64.9) 06/22/2025 Peripheral edema (ICD-10 - R60.9) 06/15/2025 [...] presence not specified (ICD-10 - K21.9) 04/27/2025 Anemia, unspecified type (ICD-10 - D64.9) [...] L85.3) 06/29/2025 Dry skin (ICD-10 - L85.3) 07/13/2025 Peripheral edema (ICD-10 - R60.9) leg edema is better; will continue Bumex and monitoring of renal function 06/29/2025 Hyperlipidemia (ICD9-CM - 272.4) 07/13/2025 Dry skin (ICD-10 - L85.3) 06/15/2025 Anemia, unspecified type (ICD-10 - D64.9) [...] whether jail insulin use (ICD-10 - E11.9) 05/25/2025 Anemia, unspecified type (ICD-10 - D64.9) 05/18/2025 Anemia, unspecified type (ICD-10 - D64.9) 06/15/2025 Peripheral edema (ICD-10 - R60.9) 06/29/2025 Hyperkalemia (ICD-10 - E87.5) 07/13/2025 Hyperlipidemia (ICD9-CM - 272.4) 07/13/2025 Hyperkalemia (ICD-10 - E87.5) 06/29/2025 Controlled slow [...] use of insulin (ICD-10 - E11.9) 07/13/2025 Candidiasis of skin (ICD-10 - B37.2) 07/13/2025 DM2 (diabetes mellitus, type 2) (ICD-10 - E11.9) BS have been satisfactory; will disc FSBS bid with sliding scale; maintain CCHO diet 06/29/2025 DM2 (diabetes mellitus, type 2) (ICD-10 - E11.9) low BS with A1c 5; Lantus discontinued and placed on low intensity sliding scale insulin AM and 4PM 07/13/2025 Osteoporosis (ICD-10 - M81.0) 05/18/2025 Type 2 diabetes mellitus without complication, unspecified whether jail insulin use (ICD-10 - E11.9) 05/25/2025 Type 2 diabetes mellitus without complication, unspecified whether termite exterminator insulin use (ICD-10 - E11.9) 08/25/2024 Osteoporosis [...] visit note; she will be [place] [facility] [place]; to do CMP and CBC Plan Of Treatment Pending Test Test Name Order Date Mammogram 08/17/2024 Insurance Providers Payer Name Payer Address Payer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
--- OUTSIDE RECORDS SUMMARY | 2025-08-12 07:52 | XMS_ITS | Referral Summary ---
Author Organization [employer] ([place], [place], [place], [place], [place]) Address [address] [place] [address] Care Team Providers Care Shelf Stocker Name Role Phone Allan Adamson MD Primary Care Provider [phone] Encounters Date Type Department Care Team Description 06/03/2025 10:40 PM EDT - 06/11/2025 5:36 PM EDT Hospital Encounter [facility] 5B Medical Telemetry Unit 1 [place] [address] Sima Mancia MD Kredan, Tawfik, MD Lewis, Paige, MD Acute renal failure, unspecified acute renal failure type (HCC) (Primary Dx) Discharge Disposition: Long-Term Facility 06/04/2025 Travel from Last 3 Months [...] lotn Apply 1 Application topically daily. Active [id number]-[id number]-UJ -lycopen-lutein ([employer] Senior) 0.4 mg-300 mcg- 250 [...] your living situation today? I have a [facility] place to live 06/04/2025 Think about the [...] Do you speak a language other than [place] at ho me? No 06/04/2025 Do you [...] POC Routine 06/04/2025 11:3 7 AM EDT [id number] ACTIVITY(SENDOUT) Routine 06/04/2025 10:58 AM EDT RENAL [...] METABOLIC PANEL STAT 06/03/2025 11:43 PM EDT [facility] CBC SCAN Routine 06/03/2025 11:42 PM EDT LACTIC ACID WITH REFLEX STAT 06/03/2025 11:42 PM EDT CBC W/ AUTO DIFF STAT 06/03/2025 11:4 2 PM EDT EKG-SCANNED 06/03/2025 EKG-SCANNED 06/03/2025 from Last 3 Months Results * Glucose, Nova Meter (06/11/2025 3:46 PM EDT) Only the most recent of32 resultswithin the time period is included. [facility] POC-GLUCOSE 86 70 - 110 mg/dL 06/11/2025 3:[address] [facility] Comment:In the event of poor peripheral blood flow, venous or arterial blood should be used due to the potential of erroneous results. School Resource Officer [id number] 06/11/2025 3:[address] [facility] Blood WHOLE BLOOD / Unknown 06/11/2025 3:46 PM EDT 06/11/2025 3:[address] [facility] - 06/11/2025 3:55 PM EDT Notified RN/MD us Charity Steiner MD POINT OF CARE TEST ORDERABLES Fi nal Result [facility] [address] [phone] * (ABNORMAL) CBC with automated diff (06/11/2025 4:35 AM EDT) Only the most recent of9 resultswithin the time period is included. [facility] WBC 6.0 4.0 - 10.0 K/ L 06/11/2025 5:[address] [facility] RBC 3.11(L) 3.93 - 5.22 M/ L 06/11/2025 5:[address] [facility] Hemoglobin 9.4(L) 11.2 - 15.7 GM/DL 06/11/2025 5:[address] [facility] Hematocrit 28.5(L) 34.1 - 44.9 % 06/11/2025 5:[address] [facility] MCV 92 79 - 95 fL 06/11/2025 5:[address] [facility] MCH 30.2 25.6 - 32.2 pg 06/11/2025 5:[address] [facility] MCHC 33.0 32.2 - 35.5 GM/DL 06/11/2025 5:[address] [facility] RDW 16.9(H) 11.7 - 14.4 % 06/11/2025 5:[address] [facility] Platelets 246 140 - 375 K/CU MM 06/11/2025 5:[address] [facility] MPV 11.7 9.4 - 12.3 fL 06/11/2025 5:[address] [facility] % Neutros 60 34 - 71 % 06/11/2025 5:[address] [facility] % Lymphs 20 19 - 52 % 06/11/2025 5:[address] [facility] % Monos 13 5 - 13 % 06/11/2025 5:[address] [facility] % Eos 3.7 1.0 - 6.0 % 06/11/2025 5:[address] [facility] % Baso 1 0 - 1 % 06/11/2025 5:[address] [facility] NRBC Absolute <0.01 0 - 0.012 K/ul 06/11/2025 5:[address] [facility] # Neutros 3.59 1.56 - 6.13 K/ L 06/11/2025 5:[address] [facility] # Lymphs 1.18 1.18 - 3.74 K/ L 06/11/2025 5:[address] [facility] # Monos 0.78 0.24 - 0.86 K/ L 06/11/2025 5:[address] [facility] # Eos 0.22 0.04 - 0.36 K/ L 06/11/2025 5:[address] [facility] # Baso 0.04 0.01 - 0.08 K/ L 06/11/2025 5:[address] [facility] % Imm Grans 3.50(H) 0.01 - 0.43 % 06/11/2025 5:[address] [facility] # IG 0.21(H) 0.00 - 0.03 K/uL 06/11/2025 5:[address] [facility] Blood Venipuncture / Unknown 06/11/2025 4:35 AM EDT 06/11/2025 4:[address] [facility] - 06/11/2025 5:07 AM EDT When [...] LAB BLOOD ORDERABLES Final Resul t [facility] [address] [phone] * (ABNORMAL) Basic Metabolic Panel (06/11/2025 4:35 AM EDT) Only the most recent of9 resultswithin the time period is included. Sodium 142 136 - 145 meq/L 06/11/2025 5:[address] [facility] Potassium 4.2 3.4 - 5.1 meq/L 06/11/2025 5:[address] [facility] CO2 28 22 - 29 meq/L 06/11/2025 5:[address] [facility] Chloride 102 98 - 112 meq/L 06/11/2025 5:[address] [facility] Glucose 82 82 - 115 mg/dL 06/11/2025 5:[address] [facility] BUN 54.3(H) 9.8 - 20.1 mg/dL 06/11/2025 5:[address] [facility] Creatinine 2.40(H) 0.50 - 1.20 mg/dL 06/11/2025 5:[address] [facility] BUN/Creatinine 23(H) 8 - 20 06/11/2025 5:[address] [facility] Calcium 9.2 8.4 - 10.2 mg/dL 06/11/2025 5:[address] [facility] Anion Gap 16(H) 4 - 12 06/11/2025 5:[address] [facility] eGFR (mL/min/1.73m2) 19(L) >=60 mL/min/1.7 3m2 06/11/2025 5:[address] [facility] Comment:ESTIMATED GFR IS NOT ACCURATE CREATININE CLEARANCE IN PREDICTING GLOMERULAR FILTRATION RATE. ESTIMATED GFR IS NOT APPLICABLE FOR DIALYSIS PATIENTS. Osmolality Calc 297.1 mOsm/kg 5:[address] [facility] Blood Venipuncture / Unknown 06/11/2025 4:35 AM EDT 06/11/2025 4:52 AM EDT us Charity Steienr MD LAB BLOOD ORDERABLES Final Resul t [facility] [address] [phone] * Potassium (06/10/2025 11:08 AM EDT) Potassium 3.9 3.4 - 5.1 meq/L 06/10/2025 1:[address] [facility] Blood Venipuncture / Unknown 06/10/2025 11:08 AM EDT 06/10/2025 11:11 AM EDT us Charity Steiner MD LAB BLOOD ORDERABLES Final Resul t [facility] [address] [phone] * ECG 12 lead (06/10/2025 9:57 AM EDT) Only the most recent of8 resultswithin the time period is included. VENTRICULAR RATE EKG/MIN 56 BPM GE MUSE ATRIAL RATE (MCT) 56 BPM GE MUSE TX Interval 228 ms GE MUSE QRS-INTERVAL (MSEC) 126 ms GE MUSE QT Interval 450 ms GE MUSE QTC Interval 434 ms GE MUSE P [place] 8 degrees GE MUSE R AXIS (MCT) 25 degrees GE MUSE T Wave [place] 0 degrees GE MUSE Bude Diagnosis Sinus bradycardia with 1st degree AV [...] ECG ORDERABLES Final Result Performing Organization Address City/[facility]/ZIP Co de Phone Number GE MUSE * Magnesium (06/10/2025 3:43 AM EDT) Only the most recent of6 resultswithin the time period is included. Magnesium 1.6 1.6 - 2.6 mg/dL 06/10/2025 4:[address] [facility] Blood Venipuncture / Unknown 06/10/2025 3:43 AM EDT 06/10/2025 3:56 AM EDT us Charity Steiner MD LAB BLOOD ORDERABLES Final Resul t [facility] [address] [phone] * XR KUB PORTABLE (06/08/2025 10:23 PM [...] Light Yellow 06/04/2025 7:[address] [facility] Clarity, UA Turbid(A) Clear 06/04/2025 7:[address] [facility] Specific [place], UA 1.013 1.005 - 1.030 06/04/2025 7:[address] [facility] pH, UA 5.5(L) 6.0 - 8.0 06/04/2025 7:[address] [facility] Leukocytes, UA 250 Danielle/uL(A) Negative 06/04/2025 7:[address] [facility] Nitrite, UA Negative Negative 06/04/2025 7:[address] [facility] Protein, UA Trace(A) Negative 06/04/2025 7:[address] [facility] Glucose, UA 2+(A) Normal 06/04/2025 7:[address] [facility] Ketones, UA Negative Negative 06/04/2025 7:[address] [facility] Urobilinogen, UA Normal Normal 06/04/20 7:[address] [facility] Bilirubin, UA Negative Negative 06/04/2025 7:[address] [facility] Blood, UA 3+(A) Negative 06/04/2025 7:[address] [facility] RBC, UA 51-100(A) None Seen /HPF 06/04/2025 7:[address] [facility] WBC, UA 21-50(A) None Seen /HPF 06/04/2025 7:[address] [facility] Bacteria, UA 1+(A) None Seen, Trace 06/04/2025 7:[address] [facility] Mucus 1+(A) None Seen 06/04/2025 7:[address] [facility] SQUAMOUS EPITHELIAL 0-2(A) None Seen /HPF 06/04/2025 7:[address] [facility] RENAL EPITHELIAL 0-2(A) None Seen /HPF 06/04/2025 7:[address] [facility] TRANSITIONAL EPITHELIAL CELLS 0-2(A) None Seen /HPF 06/04/2025 7:[address] [facility] HYALINE CASTS 3-5(A) None Seen /LPF 06/04/2025 7:[address] [facility] Specimen Source Urine, Ramirez 06/04/2025 7:[address] [facility] Urine URINE SPECIMEN COLLECTION, CATHETERIZED / Unknown 06/04/2025 6:56 PM EDT 06/04/2025 7:17 PM EDT us Octavio Odell MD URINE ORDERABLES Final Result [facility] 1 [place] [address], [facility] [phone] * (ABNORMAL) Renal Function Panel (06/04/2025 5:59 PM EDT) Only the most recent of2 resultswithin the time period is included. Glucose 143(H) 82 - 115 mg/dL 06/04/2025 6:[address] [facility] BUN 77.1(H) 9.8 - 20.1 mg/dL 06/04/2025 6:[address] [facility] Creatinine 5.22(H) 0.57 - 1.11 mg/dL 06/04/2025 6:[address] [facility] BUN/Creatinine 15 8 - 20 06/04/2025 6:[address] [facility] eGFR (mL/min/1.73m2) 8(L) >=60 mL/min/1.7 3m2 06/04/2025 6:[address] [facility] Comment:ESTIMATED GFR IS NOT ACCURATE CREATININE CLEARANCE IN PREDICTING GLOMERULAR FILTRATION RATE. ESTIMATED GFR IS NOT APPLICABLE FOR DIALYSIS PATIENTS. Sodium 141 136 - 145 meq/L 06/04/2025 6:[address] [facility] Potassium 5.7(H) 3.4 - 5.1 meq/L 06/04/2025 6:[address] [facility] Chloride 101 98 - 112 meq/L 06/04/2025 6:[address] [facility] CO2 24 22 - 29 meq/L 06/04/2025 6:[address] [facility] Anion Gap 22(H) 4 - 12 06/04/2025 6:[address] [facility] Calcium 9.1 8.4 - 10.2 mg/dL 06/04/2025 6:[address] [facility] Albumin 2.5(L) 3.5 - 5.0 g/dL 06/04/2025 6:[address] [facility] Phosphorus 5.3(H) 2.5 - 4.5 mg/dL 06/04/2025 6:[address] [facility] Osmolality Calc 306.7 mOsm/kg 6:[address] [facility] Blood ENTIRE RIGHT UPPER ARM / Unknown Venipuncture / Unknown 06/04/2025 5:59 PM EDT 06/04/2025 6:[address] [facility] - 06/04/2025 6:37 PM EDT Specimen slightly hemolyzed us Holger Mishra MD LAB BLOOD ORDERABLES Final Resul t [facility] [address] [phone] * Ultrasound renal limited (06/04/2025 1:28 PM [...] Not detected 06/04/2025 3:[address] [facility] CORONAVIRUS 229E Not detected Not detected 06/04/2025 3:[address] [facility] CORONAVIRUS HKU1 Not detected Not detected 06/04/2025 3:[address] [facility] CORONAVIRUS NL63 Not detected Not detected 06/04/2025 3:[address] [facility] CORONAVIRUS OC43 Not detected Not detected 06/04/2025 3:[address] [facility] SARS-COV2/RT-PCR Not Detected Not Detected 06/04/2025 3:[address] [facility] HUMAN METAPNEUMOVIRUS Not detected Not detected 06/04/2025 3:[address] [facility] HUMAN RHINOVIRUS/ENTEROV IRUS Not detected Not detected 06/04/2025 3:[address] [facility] INFLUENZA A Not detected Not detected 06/04/2025 3:[address] [facility] INFLUENZA B Not detected Not detected 06/04/2025 3:[address] [facility] PARAINFLUENZA VIRUS 1 Not detected Not detected 06/04/2025 3:[address] [facility] PARAINFLUENZA VIRUS 2 Not detected Not detected 06/04/2025 3:[address] [facility] PARAINFLUENZA VIRUS 3 Not detected Not detected 06/04/2025 3:[address] [facility] PARAINFLUENZA VIRUS 4 Not detected Not detected 06/04/2025 3:[address] [facility] RESPIRATORY SYNCYTIAL VIRUS Not detected Not detected 06/04/2025 3:[address] [facility] BORDETELLA PARAPERTUSSIS Not detected Not detected 06/04/2025 3:[address] [facility] BORDETELLA PERTUSSIS Not detected Not detected 06/04/2025 3:[address] [facility] CHLAMYDIA PNEUMONIAE Not detected Not detected 06/04/2025 3:[address] [facility] MYCOPLASMA PNEUMONIAE Not detected Not detected 06/04/2025 3:[address] [facility] Nasopharyngeal NASOPHARYNGEAL SWAB / Unknown 06/04/2025 1:23 PM EDT 06/04/2025 1:36 PM EDT [facility] - 06/04/2025 3:27 PM EDT Testing was performed with RT-PCR methodology using the Keek Respiratory Panel 2.1 which has FDA De [...] This sample was tested at the [facility] using the [employer] BiosciencesArray Respiratory Panel. It is FDA cleared and has been verified and approved by the [facility] for clinical use on nasopharyngeal swab specimens. The performance of the FilmArray RP has not been established in individuals who received influenza vaccine. Recent administration of a nasal influenza vaccine may cause false positive results for Influenza A and/or Influenza B. Octavio Odell MD MICROBIOLOGY - GENERAL ORDERA BLES Final Result Performing Organization Address [facility] Co de Phone Number [facility] [address] [phone] * MRSA Screen (06/04/2025 1:23 PM EDT) [facility] MRSA by PCR [facility] MRSA Not Detected by PCR MRSA Not Detected by PCR DEVICE ID9 06/04/2025 3:[address] [facility] Nasal B[employer] AN[employer] NARES / Unknown 06/04/2025 1:23 PM EDT 06/04/2025 1:36 PM EDT Octavio Odell MD MICROBIOLOGY - GENERAL ORDERA BLES Final Result Performing Organization Address [facility] de Phone Number [facility] [address] [phone] * ECHO COMPLETE (DOPPLER / COLOR) W CONTRAST (06/04/2025 1:05 PM EDT) Anatomical Region Laterality Modality Heart Vascular Ultraso und 06/04/2025 12:5 4 PM EDT Narrative 06/04/2025 2:42 PM EDT TRANSTHORACIC ECHOCARDIOGRAPHY REPORT Demographics Patient Name: ULISES VELASCO : 1940 Age: 84 year(s) Corporate ID Number: [id number] Gender Female Religion Department Chair: Neena DEL ANGEL Height: 67 inches Referring Physician: DEONTE WILCOX Weight: 191 pounds Interpreting Physician: TAMI SIMON MD BMI: 29.91 kg/m^2 Date of Service: 06/04/2025 Blood Pressure: 127/93 mmHg Room Number: CCU 7 Type of Study: TTE procedure: ECHO COMPLETE (DOPPLER / COLOR) W OR WO CONTRAST. HR: 60 bpmPatient Status: Routine IP [facility]: Adequate visualization History/Tech Notes: Indication: altered [...] 1.16 m/s E/A ratio: 0.83 m/s Volume neoxjnbhz57.89 LV length: 7.95 cm CO: 5.84 l/min [...] Valve TR velocity: 2.06 m/s TR gradient: 16.30538 mmHg Estimated RAP: 8 mmHg RVSP: 24.99 [...] 1940 Age: 84 year(s) Corporate ID Number: [id number] Gender Female Religion Department Chair: Neena DEL ANGEL Height: 67 inches Referring Physician: DEONTE WILCOX Weight: 191 pounds Interpreting Physician: TAMI SIMON MD BMI: 29.91kg/m^2 Date of Service: 06/04/2025 Blood Pressure: 127/93 mmHg Room Number: CCU 7 Type of Study: TTE procedure: ECHO COMPLETE (DOPPLER / COLOR) W OR WO CONTRAST. HR: 60 bpmPatient Status: Routine IP [facility] Quality: Adequate visualization History/Tech Notes: Indication: altered [...] 1.16 m/s E/A ratio: 0.83 m/s Volume ozcshjeql32.89 LV length: 7.95 cm CO: 5.84 l/min [...] Valve TR velocity: 2.06 m/s TR gradient: 16.29776 mmHg Estimated RAP: 8 mmHg RVSP: 24.99 [...] CV ECHO ORDERABLES Final Resu lt * [id number] Activity(SENDOUT) (06/04/2025 10:58 AM EDT) [id number] Activity 80 >=61 % 025 10:24 AM EDT [facility] Comment: INTERPRETIVE INFORMATION: [id number] Activity [id number] levels of less than 10 percent may be associated with either inherited (Lynda-Brad Syndrome) or acquired thrombotic thrombocytopenic purpura (TTP). A variety of medical conditions may result in a mild to moderate deficiency of CZWOJS14 activity. Recent plasma exchange therapy may raise the observed IOGRLZ63 activity. This test was developed and its performance characteristics determined by [facility]. It has not been cleared or approved by the [place] Food and Drug Administration. This test was performed in a CLIA certified laboratory and is intended for clinical purposes. Performed By: [facility] [address] [place] [address] Senior Gamemaster: Adolfo Hoffman MD, PhD CLIA Number: [id number] Blood Venipuncture / Unknown 06/04/2025 10:58 AM EDT 06/04/2025 10:58 AM EDT Holger Mishra MD LAB BLOOD ORDERABLES Final Resul t [facility] [employer] [address] [place] [address], [facility] [phone] * SHAYAN Reflexive Profile(SENDOUT) (06/04/2025 10:57 AM EDT) Anti-Nuclear Ab (SHAYAN), IgG by NORM None Detected None Detected 06/07/2025 10:36 AM EDT [facility] Comment: No Anti-Nuclear Antibodies (SHAYAN) detected by NORM. The Extractable Nuclear Antigen Antibodies ([facility], Starks, SSA 52, SSA 60, Scleroderma, Ana Cristina-1 and SSB) and Double Stranded DNA (dsDNA) Antibody, IgG will not be performed. If suspicion of connective tissue disease is strong, and SHAYAN is negative by NORM, consider testing for SHAYAN by IFA ([id number]). INTERPRETIVE INFORMATION: Anti-Nuclear Antibodies (SHAYAN), IgG by NORM Antinuclear Antibodies (SHAYAN), IgG by NORM: SHAYAN specimens are screened using enzyme-linked immunosorbent assay (NORM) methodology. All NORM results reported as Detected are further tested by indirect fluorescent assay (IFA) using HEp-2 substrate with an IgG-specific conjugate. The SHAYAN NORM screen is designed to detect antibodies against dsDNA, histones, SS-A (Ro), SS-B (La), Starks, Starks/[facility], Scl-70, Ana Cristina-1, centromeric proteins, other antigens extracted from the HEp-2 cell nucleus. SHAYAN NORM assays have been reported to have lower sensitivities than SHAYAN IFA for systemic autoimmune rheumatic diseases (SARD). Negative results do not necessarily rule out SARD. Performed By: [facility] [address] [place] [address] Senior Gamemaster: Adolfo Hoffman MD, PhD CLIA Number: [id number] Blood Venipuncture / Unknown 06/04/2025 10:57 AM EDT 06/04/2025 10:57 AM EDT oHlger Mishra MD LAB BLOOD ORDERABLES Final Resul t [facility] [address] [place] [address], [facility] [phone] * Complement Components 3 and 4(SENDOUT) (06/04/2025 10:53 AM EDT) Complement Component 3 109 90 - 180 mg/dL 06/06/2025 2:24 AM EDT [facility] Comment: REFERENCE INTERVAL: Complement Component 3 Access complete set of age- and/or gender-specific reference intervals for this test in the [facility] ([employer]). Complement Component 4 30 10 - 40 mg/dL 06/06/2025 2:24 AM EDT [facility] Comment: REFERENCE INTERVAL: Complement Component 4 Access complete set of age- and/or gender-specific reference intervals for this test in the [facility] Directory ([employer]). Performed By: [facility] [address] [place] [address] Senior Gamemaster: Adolfo Hoffman MD, PhD CLIA Number: [id number] Blood Venipuncture / Unknown 06/04/2025 10:53 AM EDT 06/04/2025 10:53 AM EDT us Holger Mishra MD LAB BLOOD ORDERABLES [place] [address], [facility] [phone] * Procalcitonin (06/04/2025 5:02 AM EDT) Procalcitonin 0.23 See Comment ng/mL 06/04/2025 10:[address] [facility] Comment: Sepsis comment <0.5 Antibiotics Discouraged [...] EDT 06/04/2025 5:[address] [facility] - 06/04/2025 10:38 AM EDT Specimen slightly hemolyzed us Octavio Odell MD LAB BLOOD ORDERABLES Final Re sult [facility] [address] [phone] * (ABNORMAL) PROBNP (06/04/2025 5:02 AM EDT) ProBNP (pg/mL) 5,625(H) 16 - 956 pg/mL 06/04/2025 10:[address] [facility] Blood Venipuncture / Unknown 06/04/2025 5:02 AM EDT 06/04/2025 5:[address] [facility] - 06/04/2025 10:38 AM EDT As of January 14, 2025: NT-ProBNP is a new test on our ISBX Alinity Immunoassay analyzer. Please review new age and gender specific reference ranges. us Octavio Odell MD LAB BLOOD ORDERABLES Final Re sult [facility] [address] [place] [address], [facility] [phone] * (ABNORMAL) Iron and TIBC (06/04/2025 5:02 AM EDT) Iron 101 50 - 170 ug/dL 06/04/2025 6:[address] [facility] TIBC 244(L) 250 - 435 ug/dL 06/04/2025 6:[address] [facility] % Saturation 41 % 06/04/2025 6:[address] [facility] UIBC 143 06/04/2025 6:[address] [facility] Blood Venipuncture / Unknown 06/04/2025 5:02 AM EDT 06/04/2025 5:[address] [facility] - 06/04/2025 6:16 AM EDT Specimen slightly hemolyzed us Sima Mancia MD LAB BLOOD ORDERABLES Final Re sult [facility] [address] [place] [address], [facility] [phone] * (ABNORMAL) Lactate dehydrogenase (LDH) (06/04/2025 5:02 AM EDT) LDH 431(H) 125 - 220 U/L 06/04/2025 9:[address] [facility] Blood Venipuncture / Unknown 06/04/2025 5:02 AM EDT 06/04/2025 5:[address] [facility] - 06/04/2025 9:08 AM EDT Specimen slightly hemolyzed Holger Mishra MD LAB BLOOD ORDERABLES Final Resul t [facility] [address] [phone] * Ferritin (06/04/2025 5:02 AM EDT) Ferritin 162.66 4.63 - 204.00 ng/mL 06/04/2025 6:[address] [facility] Blood Venipuncture / Unknown 06/04/2025 5:02 AM EDT 06/04/2025 5:02 AM EDT Narrative [facility] - 06/04/2025 6:16 AM EDT Specimen slightly hemolyzed Sima Mancia MD LAB BLOOD ORDERABLES Final Re sult Performing Organization Address City/[facility]/ZIP Co de Phone Number [facility] [address] [phone] * (ABNORMAL) Vitamin B12 (06/04/2025 5:02 AM EDT) Vitamin B12 >2,000(H) 213 - 816 pg/mL 06/04/2025 6:[address] [facility] Blood Venipuncture / Unknown 06/04/2025 5:02 AM EDT 06/04/2025 5:[address] [facility] - 06/04/2025 6:19 AM EDT Specimen slightly hemolyzed Sima Mancia MD LAB BLOOD ORDERABLES Final Re sult [facility] [address] [phone] * (ABNORMAL) Comprehensive metabolic panel (06/04/2025 5:02 AM EDT) Sodium 145 136 - 145 meq/L 06/04/2025 6:18 AM [facility] Potassium 6.5(HH) 3.4 - 5.1 meq/L 06/04/2025 6:18 AM [facility] Chloride 110 98 - 112 meq/L 06/04/2025 6:18 AM [facility] CO2 17(L) 22 - 29 meq/L 06/04/2025 6:18 AM [facility] Calcium 8.7 8.4 - 10.2 mg/dL 06/04/2025 6:18 AM [facility] Glucose 116(H) 82 - 115 mg/dL 06/04/2025 6:18 AM [facility] BUN 79.5(H) 9.8 - 20.1 mg/dL 06/04/2025 6:18 AM [facility] Creatinine 5.35(H) 0.57 - 1.11 mg/dL 06/04/2025 6:18 AM [facility] BUN/Creatinine 15 8 - 20 06/04/2025 6:18 AM [facility] eGFR (mL/min/1.73m2) 7(L) >=60 mL/min/1. 73m2 06/04/2025 6:18 AM [facility] Comment:ESTIMATED GFR IS NOT ACCURATE CREATININE CLEARANCE IN PREDICTING GLOMERULAR FILTRATION RATE. ESTIMATED GFR IS NOT APPLICABLE FOR DIALYSIS PATIENTS. Albumin 2.5(L) 3.5 - 5.0 g/dL 06/04/2025 6:18 AM [facility] Alkaline Phosphatase 63 40 - 150 U/L 06/04/2025 6:18 AM [facility] ALT 10 <=34 U/L 06/04/2025 6:18 AM [facility] Comment: ALT2 reagent used for testing does not contain P5P supplementation and therefore may miss ALT elevations in patients with B6 deficiency. This population may be as high as 10% in the [place], with risk factors including malabsorption, drug interactions, and alcoholic hepatitis. AST 36(H) 11 - 34 U/L 06/04/2025 6:[address] [facility] Comment: AST2 reagent used for testing does not contain P5P supplementation and therefore may miss AST elevations in patients with B6 deficiency. This population may be as high as 10% in the [place], with risk factors including malabsorption, drug interactions, and alcoholic hepatitis. Total Bilirubin 0.5 0.2 - 1.2 mg/dL 06/04/2025 6:[address] [facility] Protein, Total 6.3(L) 6.4 - 8.3 g/dL 06/04/2025 6:[address] [facility] Globulin 3.8 2.5 - 4.1 g/dL 06/04/2025 6:[address] [facility] Anion Gap 25(H) 4 - 12 06/04/2025 6:[address] [facility] A/G Ratio 0.7 0.7 - 1.9 06/04/2025 6:[address] [facility] Osmolality Calc 313.5 mOsm/kg 6:[address] [facility] Blood Venipuncture / Unknown 06/04/2025 5:02 AM EDT 06/04/2025 5:02 AM EDT [facility] [place] [facility] - 06/04/2025 6:18 AM EDT Specimen slightly hemolyzed us Steffen Juan PA-C LAB BLOOD ORDERABLES Final Res ult Performing Organization Address City/State/[facility] Co de Phone Number [facility] [address] [phone] * Strep pneumoniae urine antigen (06/03/2025 11:50 PM EDT) Strep pneumoniae Antigen Presumptive negative for pneumococcal pneumonia - see comment Presumptive negative for pneumococcal pneumonia- see comment 06/04/2025 12:[address] [facility] Urine URINE / Unknown 06/03/2025 1 1:50 PM EDT 06/03/2025 11:50 PM EDT [facility] [place] [facility] - 06/04/2025 12:12 AM EDT A presumptive negative result suggests no current or recent pneumococcal infection. Infection due to S. pneumoniae cannot be ruled out since the antigen present in the specimen may be below the detection limit of the test. us Sima Mancia MD MICROBIOLOGY - GENERAL ORDERA BLES Final Result Performing Organization Address [facility] Co de Phone Number [facility] [address] [phone] * Urea Nitrogen, random urine (06/03/2025 11:50 PM EDT) Urea Nitrogen, Ur 328 mg/dL 06/04/2025 12:[address] [facility] Comment: Reference Range not established Reference range not established Urine 06/03/2025 11:5 0 PM EDT 06/03/2025 11:50 PM EDT us Sima Mancia MD URINE ORDERABLES Final Result Performing Organization Address [facility] de Phone Number [facility] [address] [phone] * Legionella antigen, urine (06/03/2025 11:50 PM EDT) Legionella Urine Antigen Presumptive negative for L. pneumophila serogroup 1 antigen in urine- see comment Presumptive negative for L. pneumophila serogroup 1 antigen in urine- see comment 06/04/2025 12:[address] [facility] Urine 06/03/2025 11:5 0 PM EDT 06/03/2025 11:[address] [facility] - 06/04/2025 12:12 AM EDT Presumptive [...] ORDERABLES Final Result Performing Organization Address [facility]/ZIP Co de Phone Number [facility] [address] [phone] * Sodium, random urine (06/03/2025 11:50 PM EDT) Sodium Urine 109 See Comment meq/L 06/04/2025 12:[address] [facility] Comment:Reference Range not established Urine 06/03/2025 11:5 0 PM EDT 06/03/2025 11:50 PM EDT Steffen Juan PA-C URINE ORDERABLES Final Result Performing Organization Address [facility] Co de Phone Number [facility] [address] [phone] * (ABNORMAL) Protein, random urine (06/03/2025 11:50 PM EDT) Protein, Urine 15(H) 1 - 14 mg/dL 06/04/2025 12:[address] [facility] Comment:No normal reference range established Urine 06/03/2025 11:5 0 PM EDT 06/03/2025 11:50 PM EDT Steffen Juan PA-C URINE ORDERABLES Final Result Performing Organization Address [facility] Co de Phone Number [facility] [address] [place] [address], [facility] [phone] * (ABNORMAL) Creatinine, random urine (06/03/2025 11:50 PM EDT) Creatinine, Ur 39.00(L) 47.00 - 110.00 mg/dL 06/04/2025 12:[address] [facility] Urine 06/03/2025 11:5 0 PM EDT 06/03/2025 11:50 PM EDT us Steffen Neri Juan PA-C URINE ORDERABLES Final Result Performing Organization Address [facility]/ZIP Co de Phone Number [facility] [address] [phone] * Chloride, random urine (06/03/2025 11:50 PM EDT) ChlorideUr 109 See Comment mmol/L 06/04/2025 12:[address] [facility] Comment:Reference range not established Urine 06/03/2025 11:5 0 PM EDT 06/03/2025 11:50 PM EDT us Sima Mancia MD URINE ORDERABLES Final Result Performing Organization Address [facility] Co de Phone Number [facility] [address] [phone] * Phosphorus (06/03/2025 11:43 PM EDT) Phosphorus 4.4 2.5 - 4.5 mg/dL 06/04/2025 12:[address] [facility] Blood Venipuncture / Unknown 06/03/2025 11:43 PM EDT 06/03/2025 11:47 PM EDT us Steffen MIMS-C LAB BLOOD ORDERABLES Final Res ult Performing Organization Address [facility] Co de Phone Number [facility] 1 [place] [address], [facility] [phone] * Creatine Kinase (CK) (06/03/2025 11:43 PM EDT) Total CK 62 29 - 168 U/L 06/04/2025 12:[address] [facility] Blood Venipuncture / Unknown 06/03/2025 11:43 PM EDT 06/03/2025 11:47 PM EDT Steffen Juan PA-C LAB BLOOD ORDERABLES Final Res ult [facility] [address] [phone] * (ABNORMAL) CBC Scan (06/03/2025 11:42 PM EDT) Platelet Estimate Decreased( A) Adequate 06/04/2025 12:[address] [facility] RBC Morphology Normal Normal 06/04/2025 12:[address] [facility] Blood Venipuncture / Unknown 06/03/2025 11:42 PM EDT 06/03/2025 11:47 PM EDT us Steffen Juan PA-C LAB BLOOD ORDERABLES Final Res ult Performing Organization Address [facility]/ZIP Co de Phone Number [facility] [address] [phone] * (ABNORMAL) Lactic Acid with reflex (SJ) (06/03/2025 11:42 PM EDT) Lactic Acid Level (mmol/L) 2.4(HH) 0.5 - 2.2 mmol/L 06/04/2025 12:[address] [facility] Blood Venipuncture / Unknown 06/03/2025 11:42 PM EDT 06/03/2025 11:47 PM EDT us Steffen Juan PA-C LAB BLOOD ORDERABLES Final Res ult Performing Organization Address [facility]/ZIP Co de Phone Number [facility] [address] [phone] * EKG-SCANNED (06/03/2025) Only the most recent of2 resultswithin the time period is included. Narrative 06/03/2025 Ordered by an unspecified provider. us Default Scanning Provider SCAN ORDERS Final Result from Last 3 Months Insurance [place] [id number] MEDICARE PART A B CROSS/BLUE SHIELD Advance Directives For more information, please contact: [phone] Documents on File Type Date Recorded Patient Show Design Supervisor Expl anation Advance Directives and Living Will 06/04/2025 Durable Power of Protective Signal Operator Advance Directives and Living Will 06/03/2025 Power of Protective Signal Operator 06/03/2025 * Full Code (Latest Code Status on File) Date Activated Date Inactivated Comments 06/04/2025 3:12 AM 06/11/2025 6:37 PM Care Teams Shelf Stocker Relationship Specialty Start Date End Date Allan Adamson MD [address] [place] [phone] PCP - General Family Medicine 06/11/25
--- OUTSIDE RECORDS SUMMARY | 2025-08-12 07:53 | XMS_ITS ---
Author Organization Unknown ENCOUNTERS Encounter Performer Location Date Diagnosis Diagnosis Status Inpatient [facility] [address] [place] [address] [id number] Emergency [facility] [address] [place] [address] [id number] Pre Admit [facility] [address] [place] [address] [id number] Emergency [facility] [address] [place] [address] [id number] XOTH Pre Admit [facility] [address] [place] [address] [id number] Inpatient [facility] [address] [place] [address] [id number] XSNF Outpatient [facility] [address] [place] [address] [id number] Emergency [facility] [address] [place] [address] [id number] Pre Admit [facility] [address] [place] [address] [id number] Inpatient [facility] [address] [place] [address] [id number] XSNF Emergency [facility] [address] [place] [address] [id number] A Pre Admit [facility] [address] [place] [address] [id number] Emergency [facility] [address] [place] [address] [id number] PEREZ Pre Admit [facility] [address] [place] [address] [id number] [facility] [address] [place] [address] [id number] Inpatient Allan [facility] [address] [place] [address] [id number] XSNF Emergency [facility] [address] [place] [address] [id number] Pre Admit [facility] [address] [place] [address] [id number] Inpatient [facility] [address] [place] [address] [id number] XSNF Emergency [facility] [address] [place] [address] [id number] Pre Admit [facility] [address] [place] [address] [id number] Outpatient [facility] [address] [place] [address] [id number] PEREZ Emergency [facility] [address] [place] [address] [id number] A Pre Admit [facility] [address] [place] [address] [id number] Outpatient [facility] [address] [place] [address] [id number] PEREZ Emergency J [facility] [address] [place] [address] [id number] A Pre Admit [facility] [address] [place] [address] [id number] Inpatient [facility] [address] [place] [address] [id number] XSNF Emergency [facility] [address] [place] [address] [id number] A Pre Admit [facility] [address] [place] [address] [id number] PAT Inpatient [facility] [address] [place] [address] [id number] [facility] Outpatient Allan Adamson [facility] [address] [facility] [address] [facility] [address] [id number] Pre Admit [address] [place] [address] [id number] Emergency [address] [place] [address] [id number] A *Note: Encounters from your own facility or health system may be excluded. Allergies, Adverse Reactions, Alerts Allergen Type Severity Identification Date azithromycin drug allergy 1 20250401 pollen extracts drug allergy 3 [id number] ceftriaxone drug allergy 1 20250401 Medications Name Date Quantity Days Supplied GPI Number
--- OUTSIDE RECORDS SUMMARY | 2025-08-12 07:53 | XMS_ITS | Clinical Summary ---
Author Organization [employer] ([place], [place], [place], [place], [place]) Address [address] [place] [address] Care Team Providers Care Physician Obstetrician Name Role Phone Allan Adamson MD Primary Care Provider [phone] Allergies Active Allergy Reactions Criticality Noted Date [...] lotn Apply 1 Application topically daily. Active agvsialv-wpg-QV -lycopen-lutein (CertaVite Senior) 0.4 mg-300 mcg- 250 [...] - 06/11/2025 5:36 PM EDT Hospital Encounter [address] Medical Telemetry Unit 1 [place] [address] Sima Mancia MD Kredan, Tawf[place], MD Lewis, Paige, MD Acute renal failure, unspecified acute renal failure type (HCC) (Primary Dx) Discharge Disposition: Halfway Facility from Last 3 Months Social History [...] your living situation today? I have a [facility] place to live 06/04/2025 Think about [...] Do you speak a language other than Portuguese at ho me? No 06/04/2025 Do you [...] POC Routine 06/04/2025 11:3 7 AM EDT [id number] ACTIVITY(SENDOUT) Routine 06/04/2025 10:58 AM EDT RENAL [...] METABOLIC PANEL STAT 06/03/2025 11:43 PM EDT [facility] CBC SCAN Routine 06/03/2025 11:42 PM [...] - 110 mg/dL 06/11/2025 3:55 PM EDT [facility] Comment:In the event of poor peripheral blood flow, venous or arterial blood should be used due to the potential of erroneous results. Production Packager [id number] 06/11/2025 3:55 PM EDT [facility] Blood WHOLE BLOOD / Unknown 06/11/2025 3:46 PM EDT 06/11/2025 3:55 PM EDT Narrative [facility] - 06/11/2025 3:55 PM EDT Notified RN/MD us Charity Steiner MD POINT OF CARE TEST ORDERABLES Fi nal Result [facility] [address] [place] [address], [facility] [phone] * (ABNORMAL) CBC with automated diff (06/11/2025 4:35 AM EDT) Only the most recent of9 resultswithin the time period is included. WBC 6.0 4.0 - 10.0 K/ L 06/11/2025 5:07 AM EDT [facility] RBC 3.11(L) 3.93 - 5.22 M/ L 06/11/2025 5:07 AM EDT [facility] Hemoglobin 9.4(L) 11.2 - 15.7 GM/DL 06/11/2025 5:07 AM EDT [facility] Hematocrit 28.5(L) 34.1 - 44.9 % 06/11/2025 5:07 AM EDT [facility] MCV 92 79 - 95 fL 06/11/2025 5:07 AM EDT [facility] MCH 30.2 25.6 - 32.2 pg 06/11/2025 5:07 AM EDT [facility] MCHC 33.0 32.2 - 35.5 GM/DL 06/11/2025 5:07 AM EDT [facility] RDW 16.9(H) 11.7 - 14.4 % 06/11/2025 5:07 AM EDT [facility] Platelets 246 140 - 375 K/CU MM 06/11/2025 5:07 AM EDT [facility] MPV 11.7 9.4 - 12.3 fL 06/11/2025 5:07 AM EDT [facility] % Neutros 60 34 - 71 % 06/11/2025 5:07 AM EDT [facility] % Lymphs 20 19 - 52 % 06/11/2025 5:07 AM EDT [facility] % Monos 13 5 - 13 % 06/11/2025 5:07 AM EDT [facility] % Eos 3.7 1.0 - 6.0 % 06/11/2025 5:07 AM EDT [facility] % Baso 1 0 - 1 % 06/11/2025 5:07 AM EDT [facility] NRBC Absolute <0.01 0 - 0.012 K/ul 06/11/2025 5:07 AM EDT [facility] # Neutros 3.59 1.56 - 6.13 K/ L 06/11/2025 5:07 AM EDT [facility] # Lymphs 1.18 1.18 - 3.74 K/ L 06/11/2025 5:07 AM EDT [facility] # Monos 0.78 0.24 - 0.86 K/ L 06/11/2025 5:07 AM EDT [facility] # Eos 0.22 0.04 - 0.36 K/ L 06/11/2025 5:07 AM EDT [facility] # Baso 0.04 0.01 - 0.08 K/ L 06/11/2025 5:07 AM EDT [facility] % Imm Grans 3.50(H) 0.01 - 0.43 % 06/11/2025 5:07 AM EDT [facility] # IG 0.21(H) 0.00 - 0.03 K/uL 06/11/2025 5:07 AM EDT [facility] Blood Venipuncture / Unknown 06/11/2025 4:35 AM EDT 06/11/2025 4:54 AM EDT Narrative [facility] - 06/11/2025 5:07 AM EDT [...] MD LAB BLOOD ORDERABLES Final Resul t [facility] [address] [phone] * (ABNORMAL) Basic Metabolic Panel (06/11/2025 4:35 AM EDT) Only the most recent of9 resultswithin the time period is included. Sodium 142 136 - 145 meq/L 06/11/2025 5:24 AM EDT [facility] Potassium 4.2 3.4 - 5.1 meq/L 06/11/2025 5:24 AM EDT [facility] CO2 28 22 - 29 meq/L 06/11/2025 5:24 AM EDT [facility] Chloride 102 98 - 112 meq/L 06/11/2025 5:24 AM EDT [facility] Glucose 82 82 - 115 mg/dL 06/11/2025 5:24 AM EDT [facility] BUN 54.3(H) 9.8 - 20.1 mg/dL 06/11/2025 5:24 AM EDT [facility] Creatinine 2.40(H) 0.50 - 1.20 mg/dL 06/11/2025 5:24 AM EDT [facility] BUN/Creatinine 23(H) 8 - 20 06/11/2025 5:24 AM EDT [facility] Calcium 9.2 8.4 - 10.2 mg/dL 06/11/2025 5:24 AM EDT [facility] Anion Gap 16(H) 4 - 12 06/11/2025 5:24 AM EDT [facility] eGFR (mL/min/1.73m2) 19(L) >=60 mL/min/1.7 3m2 06/11/2025 5:24 AM EDT [facility] Comment:ESTIMATED GFR IS NOT ACCURATE CREATININE CLEARANCE IN PREDICTING GLOMERULAR FILTRATION RATE. ESTIMATED GFR IS NOT APPLICABLE FOR DIALYSIS PATIENTS. Osmolality Calc 297.1 mOsm/kg 5:24 AM EDT [facility] Blood Venipuncture / Unknown 06/11/2025 4:35 AM EDT 06/11/2025 4:52 AM EDT us Charity Steiner MD LAB BLOOD ORDERABLES Final Resul t Performing Organization Address City/[facility]/ZIP Co de Phone Number [facility] [address] [phone] * Potassium (06/10/2025 11:08 AM EDT) Potassium 3.9 3.4 - 5.1 meq/L 06/10/2025 1:48 PM EDT [facility] Blood Venipuncture / Unknown 06/10/2025 11:08 AM EDT 06/10/2025 11:11 AM EDT Result Taiwo Steiner MD LAB BLOOD ORDERABLES Final Resul t Performing Organization Address [facility] Co de Phone Number [facility] [address] [phone] * ECG 12 lead (06/10/2025 9:57 AM EDT) Only the most recent of8 resultswithin the time period is included. VENTRICULAR RATE EKG/MIN 56 BPM GE MUSE ATRIAL RATE (MCT) 56 BPM GE MUSE ID Interval 228 ms GE MUSE QRS-INTERVAL (MSEC) 126 ms GE MUSE QT Interval 450 ms GE MUSE QTC Interval 434 ms GE MUSE P [place] 8 degrees GE MUSE R AXIS (MCT) 25 degrees GE MUSE T Wave [place] 0 degrees GE MUSE [place] Diagnosis Sinus bradycardia with 1st degree AV [...] ECG ORDERABLES Final Result Performing Organization Address [facility] Co de Phone Number GE MUSE * Magnesium (06/10/2025 3:43 AM EDT) Only the most recent of6 resultswithin the time period is included. Magnesium 1.6 1.6 - 2.6 mg/dL 06/10/2025 4:21 AM EDT [facility] Blood Venipuncture / Unknown 06/10/2025 3:43 AM EDT 06/10/2025 3:56 AM EDT us Charity Steiner MD LAB BLOOD ORDERABLES Final Resul t [facility] [address] [phone] * XR KUB PORTABLE (06/08/2025 10:23 PM [...] by Keyon Levy M.D. Lukas Kenjulia REYES [facility] DIAGNOSTIC IMAGING ORDERAB LES Final Result * [...] by Estela Bueno PA-C. Bela Abel MD [facility] DIAGNOSTIC IMAGING ORDERAB LES Final Result * [...] UA Light Yellow 06/04/2025 7:33 PM EDT [facility] Clarity, UA Turbid(A) Clear 06/04/2025 7:33 PM EDT [facility] Specific [place], UA 1.013 1.005 - 1.030 06/04/2025 7:33 PM EDT [facility] pH, UA 5.5(L) 6.0 - 8.0 06/04/2025 7:33 PM EDT [facility] Leukocytes, UA 250 Danielle/uL(A) Negative 06/04/2025 7:33 PM EDT [facility] Nitrite, UA Negative Negative 06/04/2025 7:33 PM EDT [facility] Protein, UA Trace(A) Negative 06/04/2025 7:33 PM EDT [facility] Glucose, UA 2+(A) Normal 06/04/2025 7:33 PM EDT [facility] Ketones, UA Negative Negative 06/04/2025 7:33 PM EDT [facility] Urobilinogen, UA Normal Normal 06/04/20 7:33 PM EDT [facility] Bilirubin, UA Negative Negative 06/04/2025 7:33 PM EDT [facility] Blood, UA 3+(A) Negative 06/04/2025 7:33 PM EDT [facility] RBC, UA 51-100(A) None Seen /HPF 06/04/2025 7:33 PM EDT [facility] WBC, UA 21-50(A) None Seen /HPF 06/04/2025 7:33 PM EDT [facility] Bacteria, UA 1+(A) None Seen, Trace 06/04/2025 7:33 PM EDT [facility] Mucus 1+(A) None Seen 06/04/2025 7:33 PM EDT [facility] SQUAMOUS EPITHELIAL 0-2(A) None Seen /HPF 06/04/2025 7:33 PM EDT [facility] RENAL EPITHELIAL 0-2(A) None Seen /HPF 06/04/2025 7:33 PM EDT [facility] TRANSITIONAL EPITHELIAL CELLS 0-2(A) None Seen /HPF 06/04/2025 7:33 PM EDT [facility] HYALINE CASTS 3-5(A) None Seen /LPF 06/04/2025 7:33 PM EDT [facility] Specimen Source Urine, Ramirez 06/04/2025 7:33 PM EDT [facility] Urine URINE SPECIMEN COLLECTION, CATHETERIZED / Unknown 06/04/2025 6:56 PM EDT 06/04/2025 7:17 PM EDT us Octavio Odell MD URINE ORDERABLES Final Result [facility] [address] [phone] * (ABNORMAL) Renal Function Panel (06/04/2025 5:59 PM EDT) Only the most recent of2 resultswithin the time period is included. Glucose 143(H) 82 - 115 mg/dL 06/04/2025 6:37 PM [facility] BUN 77.1(H) 9.8 - 20.1 mg/dL 06/04/2025 6:37 PM [facility] Creatinine 5.22(H) 0.57 - 1.11 mg/dL 06/04/2025 6:37 PM [facility] BUN/Creatinine 15 8 - 20 06/04/2025 6:37 PM [facility] eGFR (mL/min/1.73m2) 8(L) >=60 mL/min/1.7 3m2 06/04/2025 6:37 PM [facility] Comment:ESTIMATED GFR IS NOT ACCURATE CREATININE CLEARANCE IN PREDICTING GLOMERULAR FILTRATION RATE. ESTIMATED GFR IS NOT APPLICABLE FOR DIALYSIS PATIENTS. Sodium 141 136 - 145 meq/L 06/04/2025 6:37 PM [facility] Potassium 5.7(H) 3.4 - 5.1 meq/L 06/04/2025 6:37 PM [facility] Chloride 101 98 - 112 meq/L 06/04/2025 6:37 PM [facility] CO2 24 22 - 29 meq/L 06/04/2025 6:37 PM [facility] Anion Gap 22(H) 4 - 12 06/04/2025 6:37 PM [facility] Calcium 9.1 8.4 - 10.2 mg/dL 06/04/2025 6:37 PM [facility] Albumin 2.5(L) 3.5 - 5.0 g/dL 06/04/2025 6:37 PM [facility] Phosphorus 5.3(H) 2.5 - 4.5 mg/dL 06/04/2025 6:37 PM [facility] Osmolality Calc 306.7 mOsm/kg 6:37 PM [facility] Blood ENTIRE RIGHT UPPER ARM / Unknown Venipuncture / Unknown 06/04/2025 5:59 PM EDT 06/04/2025 6:06 PM [facility] - 06/04/2025 6:37 PM EDT Specimen slightly hemolyzed us Holger Mishra MD LAB BLOOD ORDERABLES Final Resul t [facility] [address] [place] [address], [facility] [phone] * Ultrasound renal limited (06/04/2025 1:28 PM [...] detected Not detected 06/04/2025 3:27 PM EDT [facility] CORONAVIRUS 229E Not detected Not detected 06/04/2025 3:27 PM EDT [facility] CORONAVIRUS HKU1 Not detected Not detected 06/04/2025 3:27 PM EDT [facility] CORONAVIRUS NL63 Not detected Not detected 06/04/2025 3:27 PM EDT [facility] CORONAVIRUS OC43 Not detected Not detected 06/04/2025 3:27 PM EDT [facility] SARS-COV2/RT-PCR Not Detected Not Detected 06/04/2025 3:27 PM EDT [facility] HUMAN METAPNEUMOVIRUS Not detected Not detected 06/04/2025 3:27 PM EDT [facility] HUMAN RHINOVIRUS/ENTEROV IRUS Not detected Not detected 06/04/2025 3:27 PM EDT [facility] INFLUENZA A Not detected Not detected 06/04/2025 3:27 PM EDT [facility] INFLUENZA B Not detected Not detected 06/04/2025 3:27 PM EDT [facility] PARAINFLUENZA VIRUS 1 Not detected Not detected 06/04/2025 3:27 PM EDT [facility] PARAINFLUENZA VIRUS 2 Not detected Not detected 06/04/2025 3:27 PM EDT [facility] PARAINFLUENZA VIRUS 3 Not detected Not detected 06/04/2025 3:27 PM EDT [facility] PARAINFLUENZA VIRUS 4 Not detected Not detected 06/04/2025 3:27 PM EDT [facility] RESPIRATORY SYNCYTIAL VIRUS Not detected Not detected 06/04/2025 3:27 PM EDT [facility] BORDETELLA PARAPERTUSSIS Not detected Not detected 06/04/2025 3:27 PM EDT [facility] BORDETELLA PERTUSSIS Not detected Not detected 06/04/2025 3:27 PM EDT [facility] CHLAMYDIA PNEUMONIAE Not detected Not detected 06/04/2025 3:27 PM EDT [facility] MYCOPLASMA PNEUMONIAE Not detected Not detected 06/04/2025 3:27 PM EDT [facility] Nasopharyngeal NASOPHARYNGEAL SWAB / Unknown 06/04/2025 1:23 PM EDT 06/04/2025 1:36 PM EDT Narrative [facility] - 06/04/2025 3:27 PM EDT Testing was performed with RT-PCR methodology using the [employer] Respiratory Panel 2.1 which has FDA De [...] decisions. This sample was tested at the [facility] using the [employer] Research[employer] Respiratory Panel. It is FDA cleared and has been verified and approved by the [facility] for clinical use on nasopharyngeal swab specimens. The performance of the FilmArray RP has not been established in individuals who received influenza vaccine. Recent administration of a nasal influenza vaccine may cause false positive results for Influenza A and/or Influenza B. Octavio Odell MD MICROBIOLOGY - GENERAL ORDERA BLES Final Result Performing Organization Address City/[facility]/ZIP Co de Phone Number [facility] [address] [phone] * MRSA Screen (06/04/2025 1:23 PM EDT) Pathologist [facility] MRSA by PCR [facility] MRSA Not Detected by PCR MRSA Not Detected by PCR DEVICE ID9 06/04/2025 3:27 PM EDT [facility] Nasal BOTH ANTERIOR NARES / Unknown 06/04/2025 1:23 PM EDT 06/04/2025 1:36 PM EDT Octavio Odell MD MICROBIOLOGY - GENERAL ORDERA BLES Final Result Performing Organization Address [facility]/ZIP Co de Phone Number [facility] [address] [phone] * ECHO COMPLETE (DOPPLER / COLOR) W CONTRAST (06/04/2025 1:05 PM EDT) Anatomical Region Laterality Modality Heart Vascular Ultraso und 06/04/2025 12:5 4 PM EDT Narrative 06/04/2025 2:42 PM EDT TRANSTHORACIC ECHOCARDIOGRAPHY REPORT Demographics Patient Name: ULISES VELASCO : 1940 Age: 84 year(s) Corporate ID Number: [id number] Gender Female Knockup Worker: Neena DEL ANGEL Height: 67 inches Referring [...] 1.16 m/s E/A ratio: 0.83 m/s Volume hnisfkkpe05.89 LV length: 7.95 cm CO: 5.84 l/min ml CI: 2.95 l/min*m^2 Volume djhbscaj48.77 ml LVOT diameter: 2.11 cm Normal sized [...] Valve TR velocity: 2.06 m/s TR gradient: 16.98869 mmHg Estimated RAP: 8 mmHg RVSP: 24.99 [...] 06/04/2025 TRANSTHORACIC ECHOCARDIOGRAPHY REPORT Demographics Patient Name: UILSES VELASCO : 1940 Age: 84 year(s) Corporate ID Number: [id number] Gender Female Knockup Worker: Neena DEL ANGEL Height: 67 inches Referring Physician: DEONTE WILCOX Weight: 191 pounds Interpreting Physician: TAMI SIMON MD BMI: 29.91kg/m^2 Date of Service: 06/04/2025 Blood Pressure: 127/93 mmHg Room Number: CCU 7 Type of Study: TTE procedure: ECHO COMPLETE (DOPPLER / COLOR) W OR WO CONTRAST. HR: 60 bpmPatient Status: Routine IP [facility] History/Tech Notes: Indication: [...] 1.16 m/s E/A ratio: 0.83 m/s Volume gmwebyomg50.89 LV length: 7.95 cm CO: 5.84 l/min ml CI: 2.95 l/min*m^2 Volume osgyouxb47.77 ml LVOT diameter: 2.11 cm Normal sized [...] Valve TR velocity: 2.06 m/s TR gradient: 16.53714 mmHg Estimated RAP: 8 mmHg RVSP: 24.99 [...] CV ECHO ORDERABLES Final Resu lt * [id number] Activity(SENDOUT) (06/04/2025 10:58 AM EDT) Pathologist [facility] [id number] Activity 80 >=61 % 025 10:24 AM EDT [employer] Comment: INTERPRETIVE INFORMATION: [id number] Activity [id number] levels of less than 10 percent may be associated with either inherited (Lynda-Brad Syndrome) or acquired thrombotic thrombocytopenic purpura (TTP). A variety of medical conditions may result in a mild to moderate deficiency of XKWECX96 activity. Recent plasma exchange therapy may raise the observed ZSVCPP39 activity. This test was developed and its performance characteristics determined by [facility]. It has not been cleared or approved by the [place] Food and Drug Administration. This test was performed in a CLIA certified laboratory and is intended for clinical purposes. Performed By: [facility] [address] [place] [address] Telegraph Repeater Technician: Adolfo Hoffman MD, PhD CLIA Number: [id number] Blood Venipuncture / Unknown 06/04/2025 10:58 AM EDT 06/04/2025 10:58 AM EDT Holger Mishra MD LAB BLOOD ORDERABLES Final Resul t [facility] [address] [place] [address], [facility] [phone] * SHAYAN Reflexive Profile(SENDOUT) (06/04/2025 10:57 AM EDT) Anti-Nuclear Ab (SHAYAN), IgG by NORM None Detected None Detected 06/07/2025 10:36 AM EDT [employer] Comment: No Anti-Nuclear Antibodies (SHAYAN) detected by NORM. The Extractable Nuclear Antigen Antibodies (WATERSHED TENDER, Starks, SSA 52, SSA 60, Scleroderma, Ana Cristina-1 and SSB) and Double Stranded DNA (dsDNA) Antibody, IgG will not be performed. If suspicion of connective tissue disease is strong, and SHAYAN is negative by NORM, consider testing for SHAYAN by IFA ([id number]). INTERPRETIVE INFORMATION: Anti-Nuclear Antibodies (SHAYAN), IgG by NORM Antinuclear Antibodies (SHAYAN), IgG by NORM: SHAYAN specimens are screened using enzyme-linked immunosorbent assay (NORM) methodology. All NORM results reported as Detected are further tested by indirect fluorescent assay (IFA) using HEp-2 substrate with an IgG-specific conjugate. The SHAYAN NORM screen is designed to detect antibodies against dsDNA, histones, SS-A (Ro), SS-B (La), Starks, Starks/WATERSHED TENDER, Scl-70, Ana Cristina-1, centromeric proteins, other antigens extracted from the HEp-2 cell nucleus. SHAYAN NORM assays have been reported to have lower sensitivities than SHAYAN IFA for systemic autoimmune rheumatic diseases (SARD). Negative results do not necessarily rule out SARD. Performed By: [facility] [address] [place] [address] Telegraph Repeater Technician: Adolfo Hoffman MD, PhD CLIA Number: [id number] Blood Venipuncture / Unknown 06/04/2025 10:57 AM EDT 06/04/2025 10:57 AM EDT us Holger Mishra MD LAB BLOOD ORDERABLES Final Resul t Performing Organization Address City/[facility]/ZIP Co de Phone Number [facility] [employer] [address] [place] [address], [facility] [phone] * Complement Components 3 and 4(SENDOUT) (06/04/2025 10:53 AM EDT) Complement Component 3 109 90 - 180 mg/dL 06/06/2025 2:24 AM EDT [employer] Comment: REFERENCE INTERVAL: Complement Component 3 Access complete set of age- and/or gender-specific reference intervals for this test in the [facility] Test Directory (AdECN). Complement Component 4 30 10 - 40 mg/dL 06/06/2025 2:24 AM EDT [employer] Comment: REFERENCE INTERVAL: Complement Component 4 Access complete set of age- and/or gender-specific reference intervals for this test in the [facility] Test Directory (AdECN). Performed By: [facility] [address] [place] [address] Telegraph Repeater Technician: Adolfo Hoffman MD, PhD CLIA Number: [id number] Blood Venipuncture / Unknown 06/04/2025 10:53 AM EDT 06/04/2025 10:53 AM EDT us Holger Mishra MD LAB BLOOD ORDERABLES Final Resul t Performing Organization Address City/[facility] Co de Phone Number [facility] [employer] [address] [place] [address], [facility] [phone] * Procalcitonin (06/04/2025 5:02 AM EDT) Procalcitonin 0.23 See Comment ng/mL 06/04/2025 10:38 AM EDT [facility] Comment: Sepsis comment <0.5 Antibiotics [...] 5:02 AM EDT 06/04/2025 5:02 AM EDT [facility] - 06/04/2025 10:38 AM EDT Specimen slightly hemolyzed us Octavio Odell MD LAB BLOOD ORDERABLES Final Re sult Performing Organization Address [facility] de Phone Number [facility] [address] [phone] * (ABNORMAL) PROBNP (06/04/2025 5:02 AM EDT) ProBNP (pg/mL) 5,625(H) 16 - 956 pg/mL 06/04/2025 10:38 AM EDT [facility] Blood Venipuncture / Unknown 06/04/2025 5:02 AM EDT 06/04/2025 5:02 AM EDT [facility] - 06/04/2025 10:38 AM EDT As of January 14, 2025: NT-ProBNP is a new test on our i[employer] Immunoassay analyzer. Please review new age and gender specific reference ranges. us Octavio Odell MD LAB BLOOD ORDERABLES Final Re sult Performing Organization Address [facility] Co de Phone Number [facility] [address] [phone] * (ABNORMAL) Iron and TIBC (06/04/2025 5:02 AM EDT) Iron 101 50 - 170 ug/dL 06/04/2025 6:16 AM EDT [facility] TIBC 244(L) 250 - 435 ug/dL 06/04/2025 6:16 AM EDT [facility] % Saturation 41 % 06/04/2025 6:16 AM EDT [facility] UIBC 143 06/04/2025 6:16 AM EDT [facility] Blood Venipuncture / Unknown 06/04/2025 5:02 AM EDT 06/04/2025 5:02 AM EDT [facility] - 06/04/2025 6:16 AM EDT Specimen slightly hemolyzed us Sima Mancia MD LAB BLOOD ORDERABLES Final Re sult Performing Organization Address City/[facility]/ZIP Co de Phone Number [facility] [address] [phone] * (ABNORMAL) Lactate dehydrogenase (LDH) (06/04/2025 5:02 AM EDT) LDH 431(H) 125 - 220 U/L 06/04/2025 9:08 AM EDT [facility] Blood Venipuncture / Unknown 06/04/2025 5:02 AM EDT 06/04/2025 5:02 AM EDT [facility] - 06/04/2025 9:08 AM EDT Specimen slightly hemolyzed us Holger Mishra MD LAB BLOOD ORDERABLES Final Resul t Performing Organization Address [facility] Co de Phone Number [facility] [address] [phone] * Ferritin (06/04/2025 5:02 AM EDT) Ferritin 162.66 4.63 - 204.00 ng/mL 06/04/2025 6:16 AM EDT [facility] Blood Venipuncture / Unknown 06/04/2025 5:02 AM EDT 06/04/2025 5:02 AM EDT [facility] - 06/04/2025 6:16 AM EDT Specimen slightly hemolyzed us Sima Mancia MD LAB BLOOD ORDERABLES Final Re sult [facility] [address] [place] [address], [facility] [phone] * (ABNORMAL) Vitamin B12 (06/04/2025 5:02 AM EDT) Pathologist [facility] Vitamin B12 >2,000(H) 213 - 816 pg/mL 06/04/2025 6:19 AM EDT [facility] Blood Venipuncture / Unknown 06/04/2025 5:02 AM EDT 06/04/2025 5:02 AM EDT Narrative [facility] - 06/04/2025 6:19 AM EDT Specimen slightly hemolyzed us Sima Mancia MD LAB BLOOD ORDERABLES Final Re sult Performing Organization Address City/State/[facility] Co de Phone Number [facility] [address] [phone] * (ABNORMAL) Comprehensive metabolic panel (06/04/2025 5:02 AM EDT) [facility] [address] Sodium 145 136 - 145 meq/L 06/04/2025 6:18 AM EDT [facility] Potassium 6.5(HH) 3.4 - 5.1 meq/L 06/04/2025 6:18 AM EDT [facility] Chloride 110 98 - 112 meq/L 06/04/2025 6:18 AM EDT [facility] CO2 17(L) 22 - 29 meq/L 06/04/2025 6:18 AM EDT [facility] Calcium 8.7 8.4 - 10.2 mg/dL 06/04/2025 6:18 AM EDT [facility] Glucose 116(H) 82 - 115 mg/dL 06/04/2025 6:18 AM EDT [facility] BUN 79.5(H) 9.8 - 20.1 mg/dL 06/04/2025 6:18 AM EDT [facility] Creatinine 5.35(H) 0.57 - 1.11 mg/dL 06/04/2025 6:18 AM EDT [facility] BUN/Creatinine 15 8 - 20 06/04/2025 6:18 AM [facility] eGFR (mL/min/1.73m2) 7(L) >=60 mL/min/1. 73m2 06/04/2025 6:18 AM [facility] Comment:ESTIMATED GFR IS NOT ACCURATE CREATININE CLEARANCE IN PREDICTING GLOMERULAR FILTRATION RATE. ESTIMATED GFR IS NOT APPLICABLE FOR DIALYSIS PATIENTS. Albumin 2.5(L) 3.5 - 5.0 g/dL 06/04/2025 6:18 AM [facility] Alkaline Phosphatase 63 40 - 150 U/L 06/04/2025 6:18 AM [facility] ALT 10 <=34 U/L 06/04/2025 6:18 AM [facility] Comment: ALT2 reagent used for testing does not contain P5P supplementation and therefore may miss ALT elevations in patients with B6 deficiency. This population may be as high as 10% in the [place], with risk factors including malabsorption, drug interactions, and alcoholic hepatitis. AST 36(H) 11 - 34 U/L 06/04/2025 6:18 AM [facility] Comment: AST2 reagent used for testing does not contain P5P supplementation and therefore may miss AST elevations in patients with B6 deficiency. This population may be as high as 10% in the [place], with risk factors including malabsorption, drug interactions, and alcoholic hepatitis. Total Bilirubin 0.5 0.2 - 1.2 mg/dL 06/04/2025 6:18 AM [facility] Protein, Total 6.3(L) 6.4 - 8.3 g/dL 06/04/2025 6:18 AM [facility] Globulin 3.8 2.5 - 4.1 g/dL 06/04/2025 6:18 AM [facility] Anion Gap 25(H) 4 - 12 06/04/2025 6:18 AM [facility] A/G Ratio 0.7 0.7 - 1.9 06/04/2025 6:18 AM [facility] Osmolality Calc 313.5 mOsm/kg 6:18 AM [facility] Blood Venipuncture / Unknown 06/04/2025 5:02 AM EDT 06/04/2025 5:02 AM EDT Narrative [facility] - 06/04/2025 6:18 AM EDT Specimen slightly hemolyzed Steffen Juan PA-C LAB BLOOD ORDERABLES Final Res ult Performing Organization Address [facility]/ZIP Co de Phone Number [facility] [address] [phone] * Strep pneumoniae urine antigen (06/03/2025 11:50 PM EDT) Strep pneumoniae Antigen Presumptive negative for pneumococcal pneumonia - see comment Presumptive negative for pneumococcal pneumonia- see comment 06/04/2025 12:12 AM EDT [facility] Urine URINE / Unknown 06/03/2025 1 1:50 PM EDT 06/03/2025 11:50 PM EDT Narrative [facility] - 06/04/2025 12:12 AM EDT A presumptive negative result suggests no current or recent pneumococcal infection. Infection due to S. pneumoniae cannot be ruled out since the antigen present in the specimen may be below the detection limit of the test. Sima Mancia MD MICROBIOLOGY - GENERAL ORDERA BLES Final Result Performing Organization Address [facility] Co de Phone Number [facility] [address] [phone] * Urea Nitrogen, random urine (06/03/2025 11:50 PM EDT) Urea Nitrogen, Ur 328 mg/dL 06/04/2025 12:14 AM EDT [facility] Comment: Reference Range not established Reference range not established Urine 06/03/2025 11:5 0 PM EDT 06/03/2025 11:50 PM EDT Sima Mancia MD URINE ORDERABLES Final Result Performing Organization Address City/[facility] Co de Phone Number [facility] [address] [phone] * Legionella antigen, urine (06/03/2025 11:50 PM EDT) Legionella Urine Antigen Presumptive negative for L. pneumophila serogroup 1 antigen in urine- see comment Presumptive negative for L. pneumophila serogroup 1 antigen in urine- see comment 06/04/2025 12:12 AM EDT [facility] Urine 06/03/2025 11:5 0 PM EDT 06/03/2025 11:50 PM EDT Narrative [facility] - 06/04/2025 12:12 AM EDT [...] Sima Mancia MD URINE ORDERABLES Final Result [facility] [address] [phone] * Sodium, random urine (06/03/2025 11:50 PM EDT) Sodium Urine 109 See Comment meq/L 06/04/2025 12:14 AM EDT [facility] Comment:Reference Range not established Urine 06/03/2025 11:5 0 PM EDT 06/03/2025 11:50 PM EDT Steffen Juan PA-C URINE ORDERABLES Final Result [facility] [address] [phone] * (ABNORMAL) Protein, random urine (06/03/2025 11:50 PM EDT) Protein, Urine 15(H) 1 - 14 mg/dL 06/04/2025 12:14 AM EDT [facility] Comment:No normal reference range established Urine 06/03/2025 11:5 0 PM EDT 06/03/2025 11:50 PM EDT Steffen Juan PA-C URINE ORDERABLES Final Result Performing Organization Address [facility] Co de Phone Number [facility] [address] [phone] * (ABNORMAL) Creatinine, random urine (06/03/2025 11:50 PM EDT) Creatinine, Ur 39.00(L) 47.00 - 110.00 mg/dL 06/04/2025 12:14 AM EDT [facility] Urine 06/03/2025 11:5 0 PM EDT 06/03/2025 11:50 PM EDT us Steffen MIMS-C URINE ORDERABLES Final Result Performing Organization Address [facility] Co de Phone Number [facility] [address] [phone] * Chloride, random urine (06/03/2025 11:50 PM EDT) ChlorideUr 109 See Comment mmol/L 06/04/2025 12:17 AM EDT [facility] Comment:Reference range not established Urine 06/03/2025 11:5 0 PM EDT 06/03/2025 11:50 PM EDT us Sima Mancia MD URINE ORDERABLES Final Result Performing Organization Address [facility] Co de Phone Number [facility] [address] [place] [address], [facility] [phone] * Phosphorus (06/03/2025 11:43 PM EDT) Phosphorus 4.4 2.5 - 4.5 mg/dL 06/04/2025 12:07 AM EDT [facility] Blood Venipuncture / Unknown 06/03/2025 11:43 PM EDT 06/03/2025 11:47 PM EDT Steffen Juan PA-C LAB BLOOD ORDERABLES Final Res ult Performing Organization Address [facility]/ZIP Co de Phone Number [facility] [address] [phone] * Creatine Kinase (CK) (06/03/2025 11:43 PM EDT) Total CK 62 29 - 168 U/L 06/04/2025 12:07 AM EDT [facility] Blood Venipuncture / Unknown 06/03/2025 11:43 PM EDT 06/03/2025 11:47 PM EDT Steffen Juan PA-C LAB BLOOD ORDERABLES Final Res ult Performing Organization Address [facility] Co de Phone Number [facility] [address] [phone] * (ABNORMAL) CBC Scan (06/03/2025 11:42 PM EDT) Pathologist [facility] Platelet Estimate Decreased( A) Adequate 06/04/2025 12:48 AM EDT [facility] RBC Morphology Normal Normal 06/04/2025 12:48 AM EDT [facility] Blood Venipuncture / Unknown 06/03/2025 11:42 PM EDT 06/03/2025 11:47 PM EDT Steffen Juan PA-C LAB BLOOD ORDERABLES Final Res ult Performing Organization Address [facility] Co de Phone Number [facility] [address] [phone] * (ABNORMAL) Lactic Acid with reflex (SJ) (06/03/2025 11:42 PM EDT) Lactic Acid Level (mmol/L) 2.4(HH) 0.5 - 2.2 mmol/L 06/04/2025 12:13 AM EDT [facility] Blood Venipuncture / Unknown 06/03/2025 11:42 PM EDT 06/03/2025 11:47 PM EDT us Steffen Juan PA-C LAB BLOOD ORDERABLES Final Res ult [facility] [address] [place] [id number] [phone] * EKG-SCANNED (06/03/2025) Only the most recent of2 resultswithin the time period is included. Narrative 06/03/2025 Ordered by an unspecified provider. us Default Scanning Provider SCAN ORDERS Final Result from Last 3 Months Insurance MEDICARE PART A B [place] [employer] Advance Directives For more information, please contact: [phone] Documents on File Type Date Recorded Patient Planning Official Expl anation Advance Directives and Living Will 06/04/2025 Durable Power of Sports Team Manager Advance Directives and Living Will 06/03/2025 Power of Sports Team Manager 06/03/2025 * Full Code (Latest Code Status on File) Date Activated Date Inactivated Comments 06/04/2025 3:12 AM 06/11/2025 6:37 PM Care Teams Physician Obstetrician Relationship Specialty Start Date End Date Allan Adamson MD [address] [facility] [address] [place] [address] PCP - General Family Medicine 06/11/25
--- NOTE | 2025-08-12 07:55 | SW/DCPLANNER ---
Addendum entered by Melony Kim 08/16/25 08:59: Patient will return [facility] level of care. Addendum entered by Melony Groton 08/16/25 08:29: I have updated Larry shine/ Isaías Moralez that patient will return today. Addendum entered by Melony Kim 08/16/25 07:32: Updated patient information faxed to Isaías Moralez. Original Note: Patient currently resides at [facility] level of care. Updated patient information has been faxed to Larry shine/ Isaías Moralez. Discharge date is unknown at this time. CM will continue to follow up.
--- NOTE | 2025-08-12 08:21 | P.PN_ITS ---
Subjective *Date: 08/12/25 *Time: 08:37 Interval history: Patient is awake and more alert this am. She denies any pain or SOA. She states her breathing is better. Medical Exam Vital signs and Labs for Last 24 Hours: Vital Signs Temp Pulse Pulse Resp BP BP Pulse Ox 08/12/25 08:00 99.1 F 65 16 95/46 L 95 08/12/25 06:50 08/12/25 06:04 64 08/12/25 06:04 61 08/12/25 06:04 08/12/25 06:00 63 16 106/51 L 96 08/12/25 05:00 08/12/25 04:00 70 08/12/25 04:00 98.6 F 69 14 99/50 L 90 L 08/12/25 03:00 08/12/25 02:10 25 H 08/12/25 02:10 94 L 08/12/25 02:00 64 95 08/12/25 02:00 08/12/25 02:00 112/55 L 97 08/12/25 01:00 08/12/25 00:00 70 08/12/25 00:00 98.3 F 68 16 130/60 92 L 08/11/25 22:37 08/11/25 22:36 70 08/11/25 22:23 72 94 L 08/11/25 22:15 08/11/25 22:15 71 17 94 L 08/11/25 22:00 74 94 L 08/11/25 21:59 98.6 F 75 20 121/54 L 08/11/25 19:13 97 08/11/25 19:00 08/11/25 18:53 98.0 F 80 30 H 138/58 L 95 O2 Del Method FiO2 08/12/25 08:00 BiPAP 08/12/25 06:50 BiPAP 08/12/25 06:04 08/12/25 06:04 08/12/25 06:04 45 08/12/25 06:00 BiPAP 08/12/25 05:00 BiPAP 08/12/25 04:00 08/12/25 04:00 BiPAP 08/12/25 03:00 BiPAP 08/12/25 02:10 08/12/25 02:10 BiPAP 45 08/12/25 02:00 BiPAP 08/12/25 02:00 45 08/12/25 02:00 BiPAP 08/12/25 01:00 BiPAP 08/12/25 00:00 08/12/25 00:00 BiPAP 08/11/25 22:37 BiPAP 08/11/25 22:36 08/11/25 22:23 BiPAP 08/11/25 22:15 45 08/11/25 22:15 08/11/25 22:00 08/11/25 21:59 08/11/25 19:13 BiPAP 08/11/25 19:00 45 08/11/25 18:53 BiPAP Intake and Output 08/11/25 08/12/25 08/12/25 19:59 03:59 11:59 Intake Total 200 / 200 Output Total 200 / 750 550 / 750 Balance 0 / -550 -550 / -550 Intake: Intake, Total IV Amount 200 / 200 Levofloxacin/D5w 750 mg/150 ml 150 / 150 750 mg In 150 ml @ 100 mls/hr IV ONCE ONE Rx#:[id number] Magnesium Sulfate in Water 2 gm 50 / 50 In 50 ml @ 50 mls/hr IV ONCE ONE Rx#:[id number] Output: Output, Urine Amount 200 / 750 550 / 750 Other: Number of Unmeasured Voids 0 0 Weight 200 lb 199 lb 15.348 oz Patient Weight 08/12/25 11:59 Weight 199 lb 15.348 oz Laboratory Results - last 24 hr 08/11/25 18:55: WBC 8.7, RBC 3.25 L, Hgb 9.4 L, Hct 30.9 L, MCV 95.1, MCH 28.9, MCHC 30.4 L, RDW 15.3, Plt Count 109 L, MPV 10.3, Neut % (Auto) 76.7, Lymph % (Auto) 12.9, [place] % (Auto) 7.4, Eos % (Auto) 1.2, Baso % (Auto) 0.2, Neut # (Auto) 6.6, Lymph # (Auto) 1.1, [place] # (Auto) 0.6, Eos # (Auto) 0.1, Baso # (Auto) 0.0, D-Dimer 1.18 H, Sodium 140, Potassium 5.2 H, Chloride 102, Carbon Dioxide 31 H, Anion Gap 12.2, BUN 44 H, Creatinine 2.60 H, Estimated Creat Clear 22, Estimated GFR 17 L*, Est GFR ( Amer) 21 L, Glucose 157 H, Lactate 1.2, Calcium 9.1, Magnesium 1.6, Total Bilirubin 0.6, AST 44 H, ALT 20, Alkaline Phosphatase 92, Troponin I 0.01, C-Reactive Protein 34.1 H, NT-Pro-B Natriuret Pep 2990 H, Total Protein 7.2, Albumin 4.1, Globulin 3.1, Albumin/Globulin Ratio 1.3, Procalcitonin 0.238, TSH 1.09, Thyroxine (T4) 9.3 08/11/25 19:10: VBG pH 7.27 L, VBG pCO2 58.5 H, VBG pO2 34.6, VBG HCO3 26.0, VBG Total CO2 27.8 H, VBG O2 Saturation 61.4, VBG Base Excess -1.0, VBG Lactic Acid 1.5 08/11/25 19:19: SARS-CoV-2 (PCR) Not detected, Influenza A Untype (PCR) Not detected, Influenza Type B (PCR) Not detected 08/11/25 21:12: Troponin I 0.16 H 08/11/25 21:55: Specimen Source Right radial, O2 % 6l, ABG pH 7.31 L, ABG pCO2 57.1 H, ABG pO2 48.1 L, ABG HCO3 28.3 H, ABG Total CO2 30.1 H, ABG O2 Saturation 81 L*, ABG Base Excess 2.1, Janusz Test Acceptable 08/12/25 01:14: Troponin I 0.25 H 08/12/25 04:07: WBC 10.3, RBC 3.09 L, Hgb 8.9 L, Hct 29.3 L, MCV 94.8, MCH 28.8, MCHC 30.4 L, RDW 15.0, Plt Count 103 L, MPV 10.7 H, Neut % (Auto) 91.8 H, Lymph % (Auto) 3.4 L, [place] % (Auto) 3.7, Eos % (Auto) 0.0 L, Baso % (Auto) 0.2, Neut # (Auto) 9.5 H, Lymph # (Auto) 0.4 L, [place] # (Auto) 0.4, Eos # (Auto) 0.0, Baso # (Auto) 0.0, Total Counted 100, Neutrophils % (Manual) 94 H, Lymphocytes % (Manual) 5 L, Monocytes % (Manual) 1 L, Platelet Estimate Slight decrease, RBC Morphology Normal, Sodium 139, Potassium 5.0, Chloride 102, Carbon Dioxide 32 H, Anion Gap 10.0, BUN 45 H, Creatinine 2.70 H, Estimated Creat Clear 21, Estimated GFR 17 L*, Est GFR ( Amer) 20 L, Glucose 183 H, Calcium 8.6, Total Bilirubin 0.4, AST 41 H, ALT 22, Alkaline Phosphatase 77, Troponin I 0.30 H, Total Protein 7.1, Albumin 4.1, Globulin 3.0, Albumin/Globulin Ratio 1.4 08/12/25 05:02: POC Glucose 207 H I & O for Labs for Last 24 Hours: Intake & Output 08/09/25 08/10/25 08/11/25 08/12/25 11:59 11:59 11:59 11:59 Intake Total 200 / 200 Output Total 750 / 750 Balance -550 / -550 Weight 199 lb 15.348 oz Constitutional: Present no acute distress Respiratory: Present decreased breath sounds (BIPAP in place) Cardiac: Present Reg Rate and Rhythm GI: Present soft; Absent distention, tenderness or guarding Extremities: Present edema (trace bilateral) Skin: Present intact Neuro: Present alert and awake; Absent oriented x 3 Assessment and Plan *Assessment and plan (1) Community acquired bilateral lower lobe pneumonia: Status: Acute Category: Medical Code(s): J18.9 - Pneumonia, unspecified organism (2) Acute on chronic respiratory failure with hypoxia and hypercapnia: Status: Acute Category: Medical Code(s): J96.21 - Acute and chronic respiratory failure with hypoxia; J96.22 - Acute and chronic respiratory failure with hypercapnia (3) Acute exacerbation of chronic obstructive pulmonary disease: Status: Acute Category: Medical Code(s): J44.1 - Chronic obstructive pulmonary disease with (acute) exacerbation (4) Bilateral lower extremity edema: Status: Acute Category: Medical Code(s): R60.0 - Localized edema (5) BRIDGETTE (obstructive sleep apnea): Status: Acute Category: Medical Code(s): G47.33 - Obstructive sleep apnea (adult) (pediatric) (6) D-dimer, elevated: Status: Acute Category: Medical Code(s): R79.89 - Other specified abnormal findings of blood chemistry (7) CKD (chronic kidney disease) stage 4, GFR 15-29 ml/min: Status: Acute Category: Medical Code(s): N18.4 - Chronic kidney disease, stage 4 (severe) (8) CHF (congestive heart failure): Status: Acute Qualifiers: Heart failure chronicity: chronic Heart failure type: unspecified Qualified Code(s): I50.9 - Heart failure, unspecified Category: Medical Code(s): I50.9 - Heart failure, unspecified (9) Thrombocytopenia: Status: Acute Category: Medical Code(s): D69.6 - Thrombocytopenia, unspecified (10) Diabetes: Status: Acute Qualifiers: Diabetes mellitus complication status: without complication Diabetes mellitus longwall headgate operator insulin use: without longwall headgate operator use Diabetes mellitus type: type 2 Qualified Code(s): E11.9 - Type 2 diabetes mellitus without complications Category: Medical Code(s): E11.9 - Type 2 diabetes mellitus without complications (11) Hypertension: Status: Acute Qualifiers: Hypertension type: primary hypertension Qualified Code(s): I10 - Essential (primary) hypertension Category: Medical Code(s): I10 - Essential (primary) hypertension (12) Hyperlipidemia: Status: Acute Qualifiers: Hyperlipidemia type: unspecified Qualified Code(s): E78.5 - Hyper lipidemia, unspecified Category: Medical Code(s): E78.5 - Hyperlipidemia, unspecified (13) Elevated troponin: Status: Acute Category: Medical Code(s): R79.89 - Other specified abnormal findings of blood chemistry Plan She received nebs, Solu-Medrol 125, IV Bumex and Levaquin in the ER. Imaging studies show pneumonia versus pulmonary edema. She has been continued on BIPAP, steroids, and IV abx. Cultures are pending. Her home dose of bumex was continued, but her renal function is worsening. Her D-dimer and troponins were elevated. A CTA was not done due to renal function. She may need a VQ scan. Will discuss with Dr. Adamson. Dr. Adamson entry - Saw patient, agree with above note. Patient's mentationhas improved since starting BiPAP. Pulmonology to see her later today.
--- NOTE | 2025-08-12 08:26 | HMH.PHAAMS2 ---
- Antimicrobial Stewardship Review culture & sensitivity review Stewardship interventions: culture & sensitivity review (CURRENTLY RECEIVING LEVAQUIN, WBC WNL, TMAX 99.1, CX PENDING.)
[2025-08-12 08:29] LABS: VBG HCO3 29.8 mmol/L (23-30); VBG PH 7.37 mmol/L (7.31-7.41); VBG PO2 41.5 mmol/L (28-40)
[2025-08-12 08:31] LABS: VBG PCO2 53.3 mmol/L (35-51)
[2025-08-12 08:32] LABS: Lactate Venous 2.4 mmol/L (0.4-2.0)
[2025-08-12 08:34] LABS: Acinetobacter calcoaceticus-ba Not Detected; Bacteroides fragilis Not Detected; CTX-M Not Detected; Candida auris Not Detected; Candida glabrata Not Detected; Enterobacterales Detected; Enterococcus faecalis Not Detected; Enterococcus faecium Not Detected; IMP Not Detected; KPC Not Detected; Klebsiella aerogenes Not Detected; Klebsiella pneumoniae grp Not Detected; NDM Not Detected; OXA-48-like Not Detected; Proteus spp. Not Detected; Salmonella spp. Not Detected; Serratia marcescens Not Detected; Staphylococcus epidermidis Not Detected; Staphylococcus lugdunensis Not Detected; Staphylococcus spp. Not Detected; Stenotrophomonas maltophilia Not Detected; Streptococcus agalactiae(GrpB) Not Detected; Streptococcus pyogenes Group A Not Detected; Streptococcus spp. Not Detected; VIM Not Detected; mcr-1 Not Detected
--- NOTE | 2025-08-12 09:42 | EXP.PULM.CON ---
History of Present Illness History of present illness: Ms. Nascimento is a 84-year-old female with reported history of COPD chronic hypoxic respiratory failure CKD diabetes mellitus hypertension dyslipidemia presented to the hospital from [facility] [place] complaining of worsening respiratory distress found to be hypoxic hypercarbic respiratory failure needing noninvasive ventilator therapy and pulmonary was called for further evaluation and management. She is following with cardiology, promotes echocardiogram from outside hospital normal EF at 85%, normal diastolic function. [facility] Disclaimer: The information contained in this section may have been updated after the patient was seen, as this information can be updated by other users. Medical History (Updated 08/12/25 @ 04:40 by Claudia Abdi APRN) CAP (community acquired pneumonia) Abnormal ECG Former smoker BRIDGETTE (obstructive sleep apnea) Edema PAF (paroxysmal atrial fibrillation) Asthma Fibrosis of lung Decreased diffusion capacity of lung Pulmonary emphysema Chronic respiratory failure with hypoxia Recurrent pneumonia Acute and chronic respiratory failure with hypoxia Lumbar radiculopathy Degenerative disc disease, lumbar Paratracheal lymphadenopathy RICHIE (acute kidney injury) Hypertensive urgency Elevated brain natriuretic peptide (BNP) level Hypertensive emergency CKD (chronic kidney disease) stage 3, GFR 30-59 ml/min Pneumonia Allergic rhinitis Colon polyps Hemorrhoids, internal Osteoporosis Herpes zoster Closed left ankle fracture Closed left hip fracture Lumbar spinal stenosis Lumbar compression fracture Ocular melanoma COPD (chronic obstructive pulmonary disease) Mediastinal lymphadenopathy Sleep apnea Hyperlipidemia Neuropathy Depression GERD (gastroesophageal reflux disease) Arthritis Hypertension Diabetes Surgical History History of right knee joint replacement History of left knee replacement History of left hip replacement History of left ankle joint replacement 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 History of arthroplasty of right knee History of appendectomy Family History Other Heart attack Social History (Updated 08/11/25 @ 22:21 by Jessica Quispe RN) Smoking Status: Former smoker alcohol intake: never substance use type: denies use current occupational status: other Travel in the last 8 weeks?: None household members: none caffeine: Yes Have you lived/traveled outside US in past 30 days?: No Contact w/someone who lives/traveled outside US past 30 days?: No Exposure to someone with infectious disease in past 14 days?: No Do you have a fever (greater than 100.4 F or 38 C)?: No Have you tested positive for COVID-19?: No Exposed to someone with COVID-19 in past 14 days?: No Do you have a sore throat?: No Do you have a cough?: No Do you have any weakness?: No Do you have any diarrhea?: No Are you experiencing any unusual bleeding?: No Do you have any muscle aches/pain?: No Do you have any abdominal pain?: No Are you experiencing loss of taste or smell?: No Review of Systems Constitutional Constitutional: Reports anorexia, Reports body ache(s) and Reports fatigue Eyes Eyes: Denies eye discharge, Denies dry eyes, Denies irritation and Denies itchy eyes ENT Ears, Nose, Mouth, and Throat: Denies epistaxis, Denies facial pain, Denies lip swelling and Denies throat swelling *Cardiovascular Cardiovascular: Reports dyspnea, Reports dyspnea on exertion, Reports leg edema and Reports orthopnea *Respiratory Respiratory: Denies change in phlegm color, Reports chest congestion, Reports cough, Reports dyspnea, Reports dyspnea on exertion, Reports excessive phlegm production, Denies hemoptysis, Denies pain on inspiration, Denies pain with cough and Reports wheezing *Gastrointestinal Gastrointestinal: Denies abdominal pain, Denies belching and Denies cramping *Musculoskeletal Musculoskeletal: Reports back pain, Reports myalgias and Reports other (No small joint swelling or Pain) *Neurologic Neurologic: Reports system reviewed and no additional complaints, except as documented and Reports as per HPI Psychiatric Psychiatric: Denies homicidal ideation and Denies suicidal ideation Endocrine Endocrine: Reports fatigue and Denies heat intolerance Hematologic/Lymphatic Hematologic/Lymphatic: Denies easy bleeding and Denies lymphadenopathy Allergic/Immunologic Allergic/Immunologic: Denies itchy eyes, Denies lip swelling, Denies throat swelling and Reports wheezing Pulmonology Exam Inpatient Vital signs and Labs for Last 24 Hours: Temp Pulse Resp BP Pulse Ox O2 Del Method FiO2 99.1 F 65 16 95/46 L 95 BiPAP 45 08/12/25 08:00 08/12/25 08:00 08/12/25 08:00 08/12/25 08:00 08/12/25 08:00 08/12/25 08:00 08/12/25 06:04 Laboratory Results - last 24 hr 08/11/25 18:55: WBC 8.7, RBC 3.25 L, Hgb 9.4 L, Hct 30.9 L, MCV 95.1, MCH 28.9, MCHC 30.4 L, RDW 15.3, Plt Count 109 L, MPV 10.3, Neut % (Auto) 76.7, Lymph % (Auto) 12.9, [place] % (Auto) 7.4, Eos % (Auto) 1.2, Baso % (Auto) 0.2, Neut # (Auto) 6.6, Lymph # (Auto) 1.1, [place] # (Auto) 0.6, Eos # (Auto) 0.1, Baso # (Auto) 0.0, D-Dimer 1.18 H, Sodium 140, Potassium 5.2 H, Chloride 102, Carbon Dioxide 31 H, Anion Gap 12.2, BUN 44 H, Creatinine 2.60 H, Estimated Creat Clear 22, Estimated GFR 17 L*, Est GFR ( Amer) 21 L, Glucose 157 H, Lactate 1.2, Calcium 9.1, Magnesium 1.6, Total Bilirubin 0.6, AST 44 H, ALT 20, Alkaline Phosphatase 92, Troponin I 0.01, C-Reactive Protein 34.1 H, NT-Pro-B Natriuret Pep 2990 H, Total Protein 7.2, Albumin 4.1, Globulin 3.1, Albumin/Globulin Ratio 1.3, Procalcitonin 0.238, TSH 1.09, Thyroxine (T4) 9.3 08/11/25 19:10: VBG pH 7.27 L, VBG pCO2 58.5 H, VBG pO2 34.6, VBG HCO3 26.0, VBG Total CO2 27.8 H, VBG O2 Saturation 61.4, VBG Base Excess -1.0, VBG Lactic Acid 1.5, A. baumannii (PCR) Not detected, Bacteroides fragilis Not detected, Cara albicans (PCR) Not detected, Cara auris (PCR) Not detected, C. glabrata (PCR) Not detected, C. krusei (PCR) Not detected, C. parapsilosis (PCR) Not detected, C. tropicalis (PCR) Not detected, Cryptococcus neoformans PCR Not detected, Enterobacterales (PCR) Detected A, Enterococc faecalis PCR Not detected, Enterococc faecium PCR Not detected, E. coli (PCR) Detected A, H. influenzae DNA Not detected, Klebsiella aerogenes (PCR) Not detected, Klebsiella oxytoca PCR Not detected, K. pneumoniae group (PCR) Not detected, List. monocytogenes PCR Not detected, N. meningitidis (PCR) Not detected, Proteus species (PCR) Not detected, Salmonella spp. (PCR) Not detected, Serratia marcescens PCR Not detected, Staphylococcus sp PCR Not detected, Staph aureus (PCR) Not detected, mecA/C & MREJ Resist Gene Not applicable, mecA/C-Methicil Resis Gene Not applicable, Staph epidermidis (PCR) Not detected, Staph lugdunensis (TEM-PCR) Not detected, S. maltophilia (PCR) Not detected, Streptococcus sp PCR Not detected, S.agalactiae Grp B ARGELIA Not detected, Strep pneumoniae (PCR) Not detected, S. pyogenes GrpA ARGELIA Not detected, P. aeruginosa (PCR) Not detected, Akosua/B-Vanco Res Genes Not applicable, blaIMP Car res Gene PCR Not detected, KPC-Carbap Res Gene PCR Not detected, blaNDM Car Res Gene PCR Not detected, OXA-48 Carbapenem Resis Gene (PCR) Not detected, blaVIM Car Res Gene PCR Not detected, CTX-M Gene Resistance (PCR) Not detected, MCR-1 Resistance Gene Not detected 08/11/25 19:19: SARS-CoV-2 (PCR) Not detected, Influenza A Untype (PCR) Not detected, Influenza Type B (PCR) Not detected 08/11/25 21:12: Troponin I 0.16 H 08/11/25 21:55: Specimen Source Right radial, O2 % 6l, ABG pH 7.31 L, ABG pCO2 57.1 H, ABG pO2 48.1 L, ABG HCO3 28.3 H, ABG Total CO2 30.1 H, ABG O2 Saturation 81 L*, ABG Base Excess 2.1, Janusz Test Acceptable 08/12/25 01:14: Troponin I 0.25 H 08/12/25 04:07: WBC 10.3, RBC 3.09 L, Hgb 8.9 L, Hct 29.3 L, MCV 94.8, MCH 28.8, MCHC 30.4 L, RDW 15.0, Plt Count 103 L, MPV 10.7 H, Neut % (Auto) 91.8 H, Lymph % (Auto) 3.4 L, [place] % (Auto) 3.7, Eos % (Auto) 0.0 L, Baso % (Auto) 0.2, Neut # (Auto) 9.5 H, Lymph # (Auto) 0.4 L, [place] # (Auto) 0.4, Eos # (Auto) 0.0, Baso # (Auto) 0.0, Total Counted 100, Neutrophils % (Manual) 94 H, Lymphocytes % (Manual) 5 L, Monocytes % (Manual) 1 L, Platelet Estimate Slight decrease, RBC Morphology Normal, Sodium 139, Potassium 5.0, Chloride 102, Carbon Dioxide 32 H, Anion Gap 10.0, BUN 45 H, Creatinine 2.70 H, Estimated Creat Clear 21, Estimated GFR 17 L*, Est GFR ( Amer) 20 L, Glucose 183 H, Calcium 8.6, Total Bilirubin 0.4, AST 41 H, ALT 22, Alkaline Phosphatase 77, Troponin I 0.30 H, Total Protein 7.1, Albumin 4.1, Globulin 3.0, Albumin/Globulin Ratio 1.4 08/12/25 05:02: POC Glucose 207 H 08/12/25 08:00: VBG pH 7.37, VBG pCO2 53.3 H, VBG pO2 41.5 H, VBG HCO3 29.8, VBG Total CO2 31.5 H, VBG O2 Saturation 77.2 H, VBG Base Excess 4.5 H, VBG Lactic Acid 2.4 H I & O for Labs for Last 24 Hours: Intake & Output 08/09/25 08/10/25 08/11/25 08/12/25 23:59 23:59 23:59 23:59 Intake Total 200 / 200 Output Total 200 / 200 550 / 550 Balance 0 / 0 -550 / -550 Weight 200 lb 199 lb 15.348 oz Microbiology Reports for the Last 24 Hours: Microbiology 08/11/25 19:10 Blood Blood Culture - Preliminary Constitutional: Present severe distress Head: Present normocephalic and atraumatic ENT: Present normal exam, normal oropharynx and mucous membranes moist Neck: Present normal inspection and full ROM Respiratory: Present respiratory distress, rhonchi, crackles, diminished air movement and able to speak in complete sentences; Absent wheezes Cardiac: Present S1/S2, Tachycardia and radial pulses present GI: Present soft and distention; Absent tenderness or guarding Rectal (female): Present deferred (female): Present deferred Skin: Present intact; Absent cyanosis or jaundice Neuro: Present alert, awake and oriented x 3 Extremities: Present normal inspection and edema; Absent clubbing or cyanosis Psychiatric: Present normal affect and cooperative Meds Home Medications and Allergies Home Medications ?Medication ?Instructions ?Recorded ?Confirmed ?Type simvastatin 20 mg tablet 20 mg PO HS 03/06/18 08/11/25 History escitalopram oxalate 20 mg tablet 20 mg PO DAILY 11/10/23 08/11/25 History fluticasone 250 mcg-salmeterol 50 1 ea inhalation BIDRT 11/10/23 08/11/25 History mcg/dose blistr powdr for inhalation (Wixela Inhub) oxybutynin chloride 10 mg 20 mg PO DAILY 11/10/23 08/11/25 History tablet,extended release 24 hr esomeprazole magnesium 40 mg 40 mg PO DAILY 05/09/24 08/11/25 History capsule,delayed release fluticasone propionate 50 2 spray intranasal DAILY 05/12/24 08/11/25 History mcg/actuation nasal spray,suspension calcium carbonate (Calcium 600) 600 mg PO DAILY 07/08/24 08/11/25 History glucosamine sulfate 2KCl 1,000 mg 1,000 mg PO DAILY 07/08/24 08/11/25 History tablet acetaminophen 500 mg tablet 500 mg PO Q6HP PRN Mild Pain 04/02/25 08/11/25 History (Scale Score 1-4) ipratropium 0.5 mg-albuterol 3 mg 3 ml inhalation Q6HP PRN Shortness 04/02/25 08/11/25 History (2.5 mg base)/3 mL nebulization Of Breath soln lidocaine 4 % topical patch 1 patch topical DAILY PRN Pain 04/02/25 08/11/25 History montelukast 10 mg tablet 10 mg PO PM 04/02/25 08/11/25 History cyanocobalamin (vitamin B-12) 1,000 mcg PO DAILY 05/09/25 08/11/25 History 1,000 mcg tablet menthol 5 % topical gel (Biofreeze 1 ea topical QIDP PRN Pain 05/09/25 08/11/25 History (menthol)) pregabalin 75 mg capsule 75 mg PO BID #60 caps 05/13/25 08/11/25 Rx amlodipine 5 mg tablet 5 mg PO DAILY 08/11/25 08/11/25 History bumetanide 0.5 mg tablet 0.5 mg PO DAILY 08/11/25 08/11/25 History metoprolol succinate 25 mg 12.5 mg PO DAILY 08/11/25 08/11/25 History tablet,extended release 24 hr nystatin 100,000 unit/gram topical 1 applic topical BID 08/11/25 08/11/25 History powder polyethylene glycol 3350 17 gram 17 g PO DAILYP PRN Constipation 08/11/25 08/12/25 History oral powder packet (Miralax) famotidine 20 mg tablet 20 mg PO DAILY 08/12/25 08/12/25 History New Prescriptions to Start Prescriptions: Allergies Allergy/AdvReac Type Severity Reaction Status Date / Time pollen extracts (POLLEN Allergy Intermediate ASTHMA Verified 07/26/25 10:32 EXTRACTS) azithromycin Allergy Redness of Verified 07/26/25 10:32 Skin ceftriaxone (From [facility]) Allergy Redness of Verified 07/26/25 10:32 Skin Results Laboratory Findings 08/12/25 04:07 08/12/25 04:07 ABG ABG pH 7.31 mmol/L (7.35-7.45) L 08/11/25 21:55 ABG pCO2 57.1 mmhg (35.0-45.0) H 08/11/25 21:55 ABG pO2 48.1 mmhg (80-100) L 08/11/25 21:55 ABG O2 Saturation 81 % (90-100) L* 08/11/25 21:55 PT/INR, D-dimer D-Dimer 1.18 ug/mL (0.0-0.5) H 08/11/25 18:55 Abnormal lab findings: Abnormal Labs 08/11/25 08/11/25 08/11/25 18:55 19:10 21:12 RBC 3.25 L Hgb 9.4 L Hct 30.9 L MCHC 30.4 L Plt Count 109 L MPV Neut % (Auto) Lymph % (Auto) Eos % (Auto) Neut # (Auto) Lymph # (Auto) Neutrophils % (Manual) Lymphocytes % (Manual) Monocytes % (Manual) D-Dimer 1.18 H ABG pH ABG pCO2 ABG pO2 ABG HCO3 ABG Total CO2 ABG O2 Saturation VBG pH 7.27 L VBG pCO2 58.5 H VBG pO2 VBG Total CO2 27.8 H VBG O2 Saturation VBG Base Excess VBG Lactic Acid Potassium 5.2 H Carbon Dioxide 31 H BUN 44 H Creatinine 2.60 H Estimated GFR 17 L* Est GFR ( Amer) 21 L Glucose 157 H POC Glucose AST 44 H Troponin I 0.16 H C-Reactive Protein 34.1 H NT-Pro-B Natriuret Pep 2990 H Enterobacterales (PCR) Detected A E. coli (PCR) Detected A 08/11/25 08/12/25 08/12/25 21:55 01:14 04:07 RBC 3.09 L Hgb 8.9 L Hct 29.3 L MCHC 30.4 L Plt Count 103 L MPV 10.7 H Neut % (Auto) 91.8 H Lymph % (Auto) 3.4 L Eos % (Auto) 0.0 L Neut # (Auto) 9.5 H Lymph # (Auto) 0.4 L Neutrophils % (Manual) 94 H Lymphocytes % (Manual) 5 L Monocytes % (Manual) 1 L D-Dimer ABG pH 7.31 L ABG pCO2 57.1 H ABG pO2 48.1 L ABG HCO3 28.3 H ABG Total CO2 30.1 H ABG O2 Saturation 81 L* VBG pH VBG pCO2 VBG pO2 VBG Total CO2 VBG O2 Saturation VBG Base Excess VBG Lactic Acid Potassium Carbon Dioxide 32 H BUN 45 H Creatinine 2.70 H Estimated GFR 17 L* Est GFR ( Amer) 20 L Glucose 183 H POC Glucose AST 41 H Troponin I 0.25 H 0.30 H C-Reactive Protein NT-Pro-B Natriuret Pep Enterobacterales (PCR) E. coli (PCR) 08/12/25 08/12/25 05:02 08:00 RBC Hgb Hct MCHC Plt Count MPV Neut % (Auto) Lymph % (Auto) Eos % (Auto) Neut # (Auto) Lymph # (Auto) Neutrophils % (Manual) Lymphocytes % (Manual) Monocytes % (Manual) D-Dimer ABG pH ABG pCO2 ABG pO2 ABG HCO3 ABG Total CO2 ABG O2 Saturation VBG pH VBG pCO2 53.3 H VBG pO2 41.5 H VBG Total CO2 31.5 H VBG O2 Saturation 77.2 H VBG Base Excess 4.5 H VBG Lactic Acid 2.4 H Potassium Carbon Dioxide BUN Creatinine Estimated GFR Est GFR ( Amer) Glucose POC Glucose 207 H AST Troponin I C-Reactive Protein NT-Pro-B Natriuret Pep Enterobacterales (PCR) E. coli (PCR) Assessment and Plan *Assessment and plan (1) Acute and chronic respiratory failure with hypoxia: Status: Acute Category: Medical Code(s): J96.21 - Acute and chronic respiratory failure with hypoxia (2) Acute exacerbation of chronic obstructive pulmonary disease: Status: Acute Category: Medical Code(s): J44.1 - Chronic obstructive pulmonary disease with (acute) exacerbation (3) Pneumonia: Status: Acute Category: Medical Code(s): J18.9 - Pneumonia, unspecified organism Plan Ms. Nascimento is a 84-year-old female with reported history of COPD chronic hypoxic respiratory failure CKD diabetes mellitus hypertension dyslipidemia presented to the hospital from [facility] [place] complaining of worsening respiratory distress found to be hypoxic hypercarbic respiratory failure needing noninvasive ventilator therapy and pulmonary was called for further evaluation and management. She is following with cardiology, promotes echocardiogram from outside hospital normal EF at 85%, normal diastolic function. Afebrile hemodynamically stable. No evidence of leukocytosis. BNP elevated though improved from prior. Elevated troponins. CKD. Blood gas upon admission mixed metabolic and resp acoidosis with pH of 7.27 and pCO2 58.5, subsequent blood gas showed improvement with 7.37 and 53.3. Chest x-ray upon admission bilateral lower lobe predominant infiltrates, concerning left pleural effusion and right hilar infiltrate. CT chest from April 2025 station 7 and 4R and right hilar lymphadenopathy and also noted to have airspace disease in that CT scan. Right middle lobe and lower lobe pleural-based lesions can well be airspace disease though need repeat scan for further follow-up. Currently being managed for pneumonia COPD exacerbation with steroids, levofloxacin and nebulization therapies. Also receiving Bumex 0.5 mg daily for diuresis, holding. Plan: Wean BiPAP to nasal cannula, needing 6 L to maintain O2 saturation goal of 90% and above Continue levofloxacin pending final culture results DuoNebs every 6 hours and Pulmicort every [address] chest without contrast Volume optimization as per primary team and cardiology # Thank you for involving pulmonary in this patient care. Will continue to follow-up
--- NOTE | 2025-08-12 10:58 | CT_ITS ---
FINAL REPORT TECHNIQUE: Thin section axial images were obtained from the lung apices through the upper abdomen without contrast. This study was performed with techniques to keep radiation doses as low as reasonably achievable (ALARA). Individualized dose reduction techniques using automated exposure control or adjustment of mA and/or kV according to the patient's size were employed. CLINICAL HISTORY: Hypoxic resp failure/Effusion/Adeopathy/Nodule COMPARISON: 05/08/2025 FINDINGS: The thyroid is mildly enlarged. There are bilateral thyroid nodules. There is no axillary lymphadenopathy. Enlarged lymph nodes in the mediastinum including right paratracheal nodule on series 2, image 20 measuring 23 mm in was 19 mm. A more inferior right paratracheal lymph node on series 2, image 26 measures 37 mm and was 21 mm. Other lymph nodes are also slightly larger in size. There is no hilar lymphadenopathy.. No pleural or pericardial effusion. There are prominent coronary artery calcifications. Interval worsening of patchy opacities in the left lung with more consolidation in the left lower lobe. Reticulonodular opacities in the right upper lobe are improved and patchy airspace opacities in the right middle lobe and right lower lobe are also improved.. Limited, unenhanced evaluation of the upper abdomen demonstrates no acute findings.. There is no acute osseous abnormality. There is a stable T12 compression fracture. IMPRESSION: Improved right but worsening left pneumonia. Worsening lymphadenopathy, favor reactive. Reviewed, Interpreted and Dictated by Michelle rFank MD Transcribed by Mariann Hayes Authenticated and [facility]
--- NOTE | 2025-08-12 11:38 | PC.NURSE ---
Pt going down for CT at this time via stretcher. Ok per MD to go down without monitoring.
[2025-08-12 11:44] LABS: POC Glucose,Bedside 178 gm/dL (70-110)
[2025-08-12 12:30] LABS: Reflex Lactic Add Lactic Reflex
[2025-08-12] MEDS: BUMETANIDE 1 MG TABLET 0.5 MG PO (13:11)
[2025-08-12] MEDS: NYSTATIN TOPICAL POWDER 30GM TP ×2 (13:11→20:20)
[2025-08-12] MEDS: ESCITALOPRAM 20MG TABLET 20 MG PO (13:14)
[2025-08-12] MEDS: METOPROLOL SUCCINATE XL 25MG TABLET 12.5 MG PO (13:17)
[2025-08-12] MEDS: FLUTICASONE PROP 50MCG NASAL SPRAY 16GM 2 SPRAY NS (13:20)
[2025-08-12] MEDS: OYSTER SHELL CALCIUM (ELEMENTAL) 500MG TAB 500 MG PO (13:20)
[2025-08-12] MEDS: HEPARIN SODIUM 5,000 UNIT/ML VIAL 5000 UNIT SUBCUT ×2 (13:21→20:20)
[2025-08-12 13:26] LABS: Lactic Acid Follow Up (RFLX 1) 2.9 mmol/L (0.7-2.1)
[2025-08-12] MEDS: PREGABALIN 25MG CAPSULE 75 MG PO ×2 (13:26→20:20)
[2025-08-12] MEDS: humaLOG 100 UNITS/ML 10ML VIAL (SSI) SUBCUT ×2 (13:28→21:56)
--- NOTE | 2025-08-12 13:41 | HMH.OTEV ---
OT Evaluation Rehab OT IP Evaluation Start: 08/12/25 08:00 Freq: ONCE Status: Active Protocol: Document 08/12/25 13:36 [facility] (Rec: 08/12/25 13:41 [facility] [id number]) Rehab OT IP Assessment Subjective History Pt oriented x 3 on arrival. Pt agreeable to engage in therapy session. Pt admitted on 08/11/25 due to COPD exacerbation. History and physical: Kirstie Nascimento is an 84-year-old female with past medical history significant for oxygen dependent COPD, supplemental oxygen 4 L, COPD, former smoker, GERD, CKD, mediastinal lymphadenopathy, diabetes mellitus, inability to bear weight, HTN, HLD, neuropathy, depression and GERD. Patient presents to [facility] from [facility] [place] due to shortness of breath. Patient is a poor historian, history provided per staff and chart review. EMS notified per nursing facility due to concern of fever. On arrival to [facility], patient was found to be hypoxic. Saturations in the 60's while on baseline supplemental oxygen. Patient placed on CPAP en route to the hospital and then transitioned to BiPAP while in the emergency department. Noted improvement with BiPAP . Due to respiratory failure with hypoxia, patient will be admitted for further evaluation/treatment. Patient denies chest pain, nausea, vomiting, abdominal pain, urinary symptoms. Initial ED workup included laboratory studies and imaging. Significant laboratory findings include D- dimer 1.18, venous blood gas pH 7.27, pCO2 58.5, total CO2 27.8, creatinine 2.60, BUN 44, GFR 17, AST 44, CRP 34, BNP 2990. Imaging study included chest x-ray which I personally reviewed bilateral lower lung opacities pneumonia versus pulmonary edema. Patient assessed at bedside, she is without acute distress. Resting comfortably on BiPAP. Hemodynamically stable. Subjective Prior to being in the hospital, pt was living at [facility] [place]. Pt reports she required assistance with both dressing and bathing, specifically lower body. She was independent with feeding. Pt also reports she completes all functional transfers using a wheelchair. She does require assistance to transfer to and from wheelchair from staff. She is on oxygen at all times as well. Objective Patient Orientation Person,Place,Birthday Right Upper WFL Extremity Gross ROM Left Upper Extremity WFL Gross ROM Bed Mobility bed mobility-scooting,bed mobility - supine/sit Assist Level Minimal x 2 (25% assist) Transfer Training Sit/Stand Transfer Assist Level Minimal x 2 (25% assist) Lower Body Dressing Moderate Assistance Ability Rehab OT IP prob,goals,plan Problems Date of Evaluation: 08/12/25 OT IP Problems Bed Mobility,Transfers,Balance,Self care,Safety Rehab Potential Rehab Potential Good Equipment Needs Assistive Devices Rolling / Wheeled Walker Plan OT intervention Plan Bed Mobility,Transfers,Balance,Self care,Safety, Therapeutic Exercise OT Plan Frequency Daily Duration LOS Discharge Goals Bed Mobility Ability Assistance x1 Sit to Stand Chair Minimal x 1 (25% assist) Transfer Ability Chair Transfer Minimal x 1 (25% assist) Ability Chair Transfer Stand Step Pivot Technique Chair Transfer Rolling Walker Assistive Devices Feeding Ability Assist with Tray Set Up Lower Body Dressing Minimal Assistance Ability Upper Body Dressing Standby Assistance Ability Performing Toilet Minimal Assistance Hygiene Ability Overall Commode/ Minimal Assistance Toilet Transfer Ability Commode/Toilet Stand Step Pivot Transfer Technique Discharge Plan OT Discharge Plan Pt appears to be close to her baseline with functional transfers and ADL independence. Pt can return to [facility] once she is medically stable per physician . Pt will continue to be seen for OT services while at [facility] in order to prevent further decline with functional ability. Eval Complexity Eval Charge Codes 76426 - Moderate Complexity PHYSICIAN CERTIFICATION: I certify the specified therapy services for Kirstie Nascimento are required, authorized, and reviewed every 30 days.
[2025-08-12 14:56] LABS: Reflex Lactic (2 hrs) Add Lactic Reflex
[2025-08-12 15:55] LABS: Lactic Acid Follow up (RFLX 2) 2.2 mmol/L (0.7-2.1)
[2025-08-12 16:53] LABS: POC Glucose,Bedside 144 gm/dL (70-110)
[2025-08-12] MEDS: MONTELUKAST SODIUM 10MG TAB 10 MG PO (18:32)
[2025-08-12] MEDS: BUDESONIDE 0.5MG/2ML NEB 0.5 MG IH (18:42)
[2025-08-12] MEDS: PANTOPRAZOLE 40MG TABLET 40 MG PO (20:20)
[2025-08-12] MEDS: PRAVASTATIN 40MG TAB 40 MG PO (20:20)
[2025-08-12 20:25] LABS: POC Glucose,Bedside 170 gm/dL (70-110)
[2025-08-13] VITALS (19 sets, daily range): BP systolic 120–136; BP diastolic 52–66; PULSE 58–71; RESP 15–24; TEMP 36.4–36.7; O2SAT 91–96; BMI 36.8
[2025-08-13] MEDS: humaLOG 100 UNITS/ML 10ML VIAL (SSI) SUBCUT ×4 (05:10→21:49)
[2025-08-13] MEDS: METHYLPREDNISOLONE SOD SUCC 40MG VIAL 40 MG IV ×3 (05:10→20:12)
[2025-08-13 05:16] LABS: POC Glucose,Bedside 174 gm/dL (70-110)
[2025-08-13 05:22] LABS: Hematocrit 25.1 % (37.0-47.0); Hemoglobin 7.8 g/dL (12.2-16.2); Immature Granulocytes % 1.6 %; Mean Corpuscular HGB Conc 31.1 g/dL (31.8-35.4); Mean Corpuscular Hemoglobin 29.1 pg (27.0-31.2); Mean Corpuscular Volume 93.7 fl (81-99); Nucleated Red Blood Cells % 0 %; Platelet Count 106 K/mm3 (142-424); Red Blood Count 2.68 M/mm3 (4.20-5.40); Red Cell Distribution Width-SD 51.8 fL; White Blood Count 10.2 K/mm3 (4.8-10.8)
[2025-08-13 05:23] LABS: Chloride 100 mmol/L (98-107)
[2025-08-13 05:24] LABS: Potassium 4.8 mmoL/L (3.5-5.1); Sodium 138 mmol/L (136-145)
[2025-08-13 05:26] LABS: Blood Urea Nitrogen 56 mg/dl (7-17); Creatinine Clearance Estimated 22 mL/min (50-200); Creatinine,Serum 2.60 mg/dl (0.52-1.04); Estimated Glomerular Filt Rate 17 ml/min (>60); GFR (African American) 21 ML/MIN (>60)
[2025-08-13 05:27] LABS: Anion Gap 11.8 mEq/L (5-15); Calcium 8.6 mg/dl (8.4-10.2); Carbon Dioxide 31 mmol/L (22.0-30.0); Glucose 148 mg/dl (74-100)
[2025-08-13] MEDS: IPRATROPIUM/ALBUTEROL 3 ML NEB IH ×4 (05:50→23:46)
[2025-08-13] MEDS: BUDESONIDE 0.5MG/2ML NEB 0.5 MG IH ×2 (05:50→18:22)
[2025-08-13 05:55] LABS: Total Cells Counted 100
--- NOTE | 2025-08-13 06:00 | XR_ITS ---
PROCEDURE INFORMATION: Exam: XR Chest Exam date and time: 08/13/2025 5:29 AM Age: 84 years old Clinical indication: Other: Cap TECHNIQUE: Imaging protocol: Radiologic exam of the chest. Views: 1 view. COMPARISON: CT CHEST WO CON 08/12/2025 11:40 AM FINDINGS: Lungs: Pulmonary vascular prominence. No consolidation. Pleural spaces: Unremarkable. No pleural effusion. No pneumothorax. Heart/Mediastinum: Moderate cardiomegaly. Bones/joints: Unremarkable. IMPRESSION: Possible volume overload. Moderate cardiomegaly. Mild pulmonary vascular prominence.
--- NOTE | 2025-08-13 08:16 | P.PN_ITS ---
Subjective *Date: 08/13/25 *Time: 09:10 Interval history: Patient is feeling better today. She is less SOA. She had nasal oxygen on this am. She was sitting up eating breakfast. Medical Exam Vital signs and Labs for Last 24 Hours: Vital Signs Temp Pulse Resp BP Pulse Ox O2 Del Method O2 Flow Rate 08/13/25 07:00 Nasal Cannula 5 08/13/25 06:03 58 L 08/13/25 06:03 61 08/13/25 06:03 94 L CPAP 08/13/25 05:00 BiPAP 10 08/13/25 04:00 97.6 F 63 18 136/66 91 L 08/13/25 03:00 BiPAP 10 08/13/25 02:16 08/13/25 02:00 92 L BiPAP 10 08/13/25 01:00 BiPAP 10 08/13/25 00:00 BiPAP 10 08/13/25 00:00 97.9 F 71 17 120/57 L 93 L 08/12/25 23:16 64 08/12/25 23:16 68 08/12/25 23:00 BiPAP 10 08/12/25 22:23 94 L CPAP 08/12/25 22:23 08/12/25 21:00 Nasal Cannula 5 08/12/25 20:00 93 L Nasal Cannula 5 08/12/25 20:00 98.4 F 72 18 112/45 L 89 L 08/12/25 18:43 72 08/12/25 18:43 76 08/12/25 18:43 90 L Nasal Cannula 5 08/12/25 17:00 Nasal Cannula 5 08/12/25 16:00 98.3 F 77 15 115/64 92 L Nasal Cannula 4 08/12/25 15:00 Nasal Cannula 5 08/12/25 14:00 117/51 L 08/12/25 14:00 92 L Nasal Cannula 5 08/12/25 13:01 136/61 08/12/25 13:00 Nasal Cannula 5 08/12/25 12:03 98.2 F 74 14 122/60 88 L Nasal Cannula 4 08/12/25 11:15 69 08/12/25 11:15 71 08/12/25 11:15 91 L Nasal Cannula 6 08/12/25 11:00 Nasal Cannula 6 08/12/25 10:00 67 18 106/53 L 96 BiPAP 08/12/25 09:00 BiPAP 08/12/25 08:30 94 L BiPAP FiO2 08/13/25 07:00 08/13/25 06:03 08/13/25 06:03 08/13/25 06:03 40 08/13/25 05:00 08/13/25 04:00 08/13/25 03:00 08/13/25 02:16 40 08/13/25 02:00 40 08/13/25 01:00 08/13/25 00:00 40 08/13/25 00:00 08/12/25 23:16 08/12/25 23:16 08/12/25 23:00 08/12/25 22:23 40 08/12/25 22:23 40 08/12/25 21:00 08/12/25 20:00 08/12/25 20:00 08/12/25 18:43 08/12/25 18:43 08/12/25 18:43 08/12/25 17:00 08/12/25 16:00 08/12/25 15:00 08/12/25 14:00 08/12/25 14:00 08/12/25 13:01 08/12/25 13:00 08/12/25 12:03 08/12/25 11:15 08/12/25 11:15 08/12/25 11:15 08/12/25 11:00 08/12/25 10:00 08/12/25 09:00 08/12/25 08:30 Intake and Output 08/12/25 08/13/25 08/13/25 19:59 03:59 11:59 Intake Total 600 / 840 240 / 840 Output Total 500 / 975 475 / 975 Balance 100 / -135 240 / -135 -475 / -135 Intake: Intake, Oral Amount 600 / 840 240 / 840 Output: Output, Urine Amount 500 / 975 475 / 975 Other: Number of Unmeasured Voids 0 Weight 199 lb 15.348 oz Patient Weight 08/13/25 11:59 Weight 199 lb 15.348 oz Laboratory Results - last 24 hr 08/11/25 19:10: A. baumannii (PCR) Not detected, Bacteroides fragilis Not detected, Cara albicans (PCR) Not detected, Cara auris (PCR) Not detected, C. glabrata (PCR) Not detected, C. krusei (PCR) Not detected, C. parapsilosis (PCR) Not detected, C. tropicalis (PCR) Not detected, Cryptococcus neoformans PCR Not detected, Enterobacterales (PCR) Detected A, Enterococc faecalis PCR Not detected, Enterococc faecium PCR Not detected, E. coli (PCR) Detected A, H. influenzae DNA Not detected, Klebsiella aerogenes (PCR) Not detected, Klebsiella oxytoca PCR Not detected, K. pneumoniae group (PCR) Not detected, List. monocytogenes PCR Not detected, N. meningitidis (PCR) Not detected, Proteus species (PCR) Not detected, Salmonella spp. (PCR) Not detected, Serratia marcescens PCR Not detected, Staphylococcus sp PCR Not detected, Staph aureus (PCR) Not detected, mecA/C & MREJ Resist Gene Not applicable, mecA/C-Methicil Resis Gene Not applicable, Staph epidermidis (PCR) Not detected, Staph lugdunensis (TEM-PCR) Not detected, S. maltophilia (PCR) Not detected, Streptococcus sp PCR Not detected, S.agalactiae Grp B ARGELIA Not detected, Strep pneumoniae (PCR) Not detected, S. pyogenes GrpA ARGELIA Not detected, P. aeruginosa (PCR) Not detected, Akosua/B-Vanco Res Genes Not applicable, blaIMP Car res Gene PCR Not detected, KPC-Carbap Res Gene PCR Not detected, blaNDM Car Res Gene PCR Not detected, OXA-48 Carbapenem Resis Gene (PCR) Not detected, blaVIM Car Res Gene PCR Not detected, CTX-M Gene Resistance (PCR) Not detected, MCR-1 Resistance Gene Not detected 08/12/25 08:00: VBG pH 7.37, VBG pCO2 53.3 H, VBG pO2 41.5 H, VBG HCO3 29.8, VBG Total CO2 31.5 H, VBG O2 Saturation 77.2 H, VBG Base Excess 4.5 H, VBG Lactic Acid 2.4 H 08/12/25 10:55: POC Glucose 178 H 08/12/25 12:50: Lactate 2.9 H 08/12/25 15:25: Lactate 2.2 H 08/12/25 16:46: POC Glucose 144 H 08/12/25 20:17: POC Glucose 170 H 08/13/25 04:39: WBC 10.2, RBC 2.68 L, Hgb 7.8 L, Hct 25.1 L, MCV 93.7, MCH 29.1, MCHC 31.1 L, RDW 15.0, Plt Count 106 L, MPV 10.7 H, Neut % (Auto) 90.4 H, Lymph % (Auto) 5.0 L, [place] % (Auto) 2.9, Eos % (Auto) 0.0 L, Baso % (Auto) 0.1, Neut # (Auto) 9.2 H, Lymph # (Auto) 0.5 L, [place] # (Auto) 0.3, Eos # (Auto) 0.0, Baso # (Auto) 0.0, Total Counted 100, Neutrophils % (Manual) 87 H, Band Neutrophils % 8, Lymphocytes % (Manual) 3 L, Monocytes % (Manual) 2, Sodium 138, Potassium 4 .8, Chloride 100, Carbon Dioxide 31 H, Anion Gap 11.8, BUN 56 H, Creatinine 2.60 H, Estimated Creat Clear 22, Estimated GFR 17 L*, Est GFR ( Amer) 21 L, Glucose 148 H, Calcium 8.6 08/13/25 05:07: POC Glucose 174 H I & O for Labs for Last 24 Hours: Intake & Output 08/10/25 08/11/25 08/12/25 08/13/25 11:59 11:59 11:59 11:59 Intake Total 200 / 200 840 / 840 Output Total 750 / 750 975 / 975 Balance -550 / -550 -135 / -135 Weight 199 lb 15.348 oz 199 lb 15.348 oz Microbiology Reports for the Last 24 Hours: Microbiology 08/11/25 19:10 Blood Blood Culture - Preliminary 08/11/25 18:55 Blood Blood Culture - Preliminary NO GROWTH AFTER 24 HOURS Constitutional: Present no acute distress Respiratory: Present wheezes (bilateral) Cardiac: Present Reg Rate and Rhythm GI: Present soft; Absent distention or tenderness Extremities: Absent edema Skin: Present intact Neuro: Present alert, awake and oriented x 3 Assessment and Plan *Assessment and plan (1) Community acquired bilateral lower lobe pneumonia: Status: Acute Category: Medical Code(s): J18.9 - Pneumonia, unspecified organism (2) Acute on chronic respiratory failure with hypoxia and hypercapnia: Status: Acute Category: Medical Code(s): J96.21 - Acute and chronic respiratory failure with hypoxia; J96.22 - Acute and chronic respiratory failure with hypercapnia (3) Acute exacerbation of chronic obstructive pulmonary disease: Status: Acute Category: Medical Code(s): J44.1 - Chronic obstructive pulmonary disease with (acute) exacerbation (4) Bilateral lower extremity edema: Status: Acute Category: Medical Code(s): R60.0 - Localized edema (5) BRIDGETTE (obstructive sleep apnea): Status: Acute Category: Medical Code(s): G47.33 - Obstructive sleep apnea (adult) (pediatric) (6) D-dimer, elevated: Status: Acute Category: Medical Code(s): R79.89 - Other specified abnormal findings of blood chemistry (7) CKD (chronic kidney disease) stage 4, GFR 15-29 ml/min: Status: Acute Category: Medical Code(s): N18.4 - Chronic kidney disease, stage 4 (severe) (8) CHF (congestive heart failure): Status: Acute Qualifiers: Heart failure chronicity: chronic Heart failure type: unspecified Qualified Code(s): I50.9 - Heart failure, unspecified Category: Medical Code(s): I50.9 - Heart failure, unspecified (9) Thrombocytopenia: Status: Acute Category: Medical Code(s): D69.6 - Thrombocytopenia, unspecified (10) Diabetes: Status: Acute Qualifiers: Diabetes mellitus complication status: without complication Diabetes mellitus 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 wall mining machine helper insulin use: without long wall mining machine helper use Diabetes mellitus type: type 2 Qualified Code(s): E11.9 - Type 2 diabetes mellitus without complications Category: Medical Code(s): E11.9 - Type 2 diabetes mellitus without complications (11) Hypertension: Status: Acute Qualifiers: Hypertension type: primary hypertension Qualified Code(s): I10 - Essential (primary) hypertension Category: Medical Code(s): I10 - Essential (primary) hypertension (12) Hyperlipidemia: Status: Acute Qualifiers: Hyperlipidemia type: unspecified Qualified Code(s): E78.5 - Hyperlipidemia, unspecified Category: Medical Code(s): E78.5 - Hyperlipidemia, unspecified (13) Elevated troponin: Status: Acute Category: Medical Code(s): R79.89 - Other specified abnormal findings of blood chemistry (14) Acute and chronic respiratory failure with hypoxia: Status: Acute Category: Medical Code(s): J96.21 - Acute and chronic respiratory failure with hypoxia (15) Acute exacerbation of chronic obstructive pulmonary disease: Status: Acute Category: Medical Code(s): J44.1 - Chronic obstructive pulmonary disease with (acute) exacerbation (16) Pneumonia: Status: Acute Category: Medical Code(s): J18.9 - Pneumonia, unspecified organism (17) E coli bacteremia: Status: Acute Category: Medical Code(s): R78.81 - Bacteremia; B96.20 - Unspecified Escherichia coli [E. coli] as the cause of diseases classified elsewhere (18) Anemia: Status: Acute Category: Medical Code(s): D64.9 - Anemia, unspecified Plan Pulmonology saw the patient and wanted to wean BiPAP to nasal cannula and continue levaquin. Will also continue duonebs and pulmicort and get a CT of the chest without contrast. Chest CT showed improved right but worsening left pneumonia. Dr. Adamson entry - Saw patient, agree with above note. She has improved. She has E.coli bacteremia and likely E. coli UTI. Plan to continue Levaquin for now. H/H is lower today, will check stool for occult blood. Will check LV EF today due to elevated troponin and abnormal CXR.
--- NOTE | 2025-08-13 09:14 | CA_ITS ---
APPROVED REPORT EXAM: Limited 2D and color flow Echocardiogram Spray Machine Operator: Milli Brock RCS, RVS Ht: 5 ft 2 in Wt: 199lbs BSA: 1.91 BP: 106/53 mmHg Indications: COPD exacerbation, Infections, Elevated troponin M-Mode Dimensions RVDd 3.05 cm (0.9-2.6) LA Diam 4.16 cm (1.9-4.0) LVDd 4.58 cm (3.5-5.7) LVDs 3.34 cm (3.5-5.7) IVSd 1.04 cm (0.6-1.1) PWd 1.00 cm (0.6-1.1) EF (Teich) 52.90% EPSs 0.97 cm FS 27.10% EDV (Teich) 96.30 mL TAPSE 2.87 (<1.7) ESV (Teich) 45.40 mL Other Information Study Quality: Technically Difficult Conclusion This is a limited TTE to evaluate for biventricular systolic function. Limited windows are obtained. The left ventricle is normal in size. There is increased LV wall thickness. There is normal global LV systolic function. LVEF is 60%. The right ventricle is mildly dilated. There is mild reduction in RV systolic function. Electronically signed by : Erica Romero MD 08/13/2025 13:10:22
[2025-08-13] MEDS: FLUTICASONE PROP 50MCG NASAL SPRAY 16GM 2 SPRAY NS (09:29)
[2025-08-13] MEDS: HEPARIN SODIUM 5,000 UNIT/ML VIAL 5000 UNIT SUBCUT ×3 (09:53→20:11)
[2025-08-13] MEDS: BUMETANIDE 1 MG TABLET 0.5 MG PO (09:54)
[2025-08-13] MEDS: METOPROLOL SUCCINATE XL 25MG TABLET 12.5 MG PO (09:55)
[2025-08-13] MEDS: ESCITALOPRAM 20MG TABLET 20 MG PO (09:56)
[2025-08-13] MEDS: OYSTER SHELL CALCIUM (ELEMENTAL) 500MG TAB 500 MG PO (09:56)
[2025-08-13] MEDS: PREGABALIN 25MG CAPSULE 75 MG PO ×2 (09:56→20:14)
[2025-08-13] MEDS: NYSTATIN TOPICAL POWDER 30GM TP ×2 (09:58→20:10)
--- NOTE | 2025-08-13 10:02 | [facility].PHAAMS2 ---
- Antimicrobial Stewardship Review culture & sensitivity review Stewardship interventions: culture & sensitivity review, reviewed - no change Comments: BLOOD CX PRELIMINARY RESULTS E COLI WITH SENSITIVITY PENDING, CURRENTLY ON LEVAQUIN FOR PNEUMONIA, UTI, BACTEREMIA. WBC WNL AT 10.2 K/mm3, AFEBRILE OVER 24 HR.
--- NOTE | 2025-08-13 10:32 | PC.NURSE ---
I asked patient if she knew when her last BM was. Patient stated she could not remember because it had been a while. I asked if she wanted a dose of miralax today and she stated that it does not really help her. I offered her prune juice and she stated that usually helps. Prune juice taken to bedside and patient stated she would drink it.
--- NOTE | 2025-08-13 10:59 | P.PN_ITS ---
Subjective *Date: 08/13/25 *Time: 12:36 Interval history: No acute respiratory vents overnight Pulmonology Exam Inpatient Vital signs and Labs for Last 24 Hours: Temp Pulse Resp BP Pulse Ox O2 Del Method O2 Flow Rate 97.7 F 71 24 122/54 L 93 L Nasal Cannula 5 08/13/25 08:10 08/13/25 08:10 08/13/25 08:10 08/13/25 08:10 08/13/25 09:22 08/13/25 10:39 08/13/25 10:39 FiO2 40 08/13/25 06:03 Laboratory Results - last 24 hr 08/12/25 10:55: POC Glucose 178 H 08/12/25 12:50: Lactate 2.9 H 08/12/25 15:25: Lactate 2.2 H 08/12/25 16:46: POC Glucose 144 H 08/12/25 20:17: POC Glucose 170 H 08/13/25 04:39: WBC 10.2, RBC 2.68 L, Hgb 7.8 L, Hct 25.1 L, MCV 93.7, MCH 29.1, MCHC 31.1 L, RDW 15.0, Plt Count 106 L, MPV 10.7 H, Neut % (Auto) 90.4 H, Lymph % (Auto) 5.0 L, [place] % (Auto) 2.9, Eos % (Auto) 0.0 L, Baso % (Auto) 0.1, Neut # (Auto) 9.2 H, Lymph # (Auto) 0.5 L, [place] # (Auto) 0.3, Eos # (Auto) 0.0, Baso # (Auto) 0.0, Total Counted 100, Neutrophils % (Manual) 87 H, Band Neutrophils % 8, Lymphocytes % (Manual) 3 L, Monocytes % (Manual) 2, Sodium 138, Potassium 4.8, Chloride 100, Carbon Dioxide 31 H, Anion Gap 11.8, BUN 56 H, Creatinine 2.60 H, Estimated Creat Clear 22, Estimated GFR 17 L*, Est GFR ( Amer) 21 L, Glucose 148 H, Calcium 8.6 08/13/25 05:07: POC Glucose 174 H Temp Pulse Resp BP Pulse Ox O2 Del Method FiO2 99.1 F 65 16 95/46 L 95 BiPAP 45 08/12/25 08:00 08/12/25 08:00 08/12/25 08:00 08/12/25 08:00 08/12/25 08:00 08/12/25 08:00 08/12/25 06:04 Laboratory Results - last 24 hr 08/11/25 18:55: WBC 8.7, RBC 3.25 L, Hgb 9.4 L, Hct 30.9 L, MCV 95.1, MCH 28.9, MCHC 30.4 L, RDW 15.3, Plt Count 109 L, MPV 10.3, Neut % (Auto) 76.7, Lymph % (Auto) 12.9, [place] % (Auto) 7.4, Eos % (Auto) 1.2, Baso % (Auto) 0.2, Neut # (Auto) 6.6, Lymph # (Auto) 1.1, [place] # (Auto) 0.6, Eos # (Auto) 0.1, Baso # (Auto) 0.0, D-Dimer 1.18 H, Sodium 140, Potassium 5.2 H, Chloride 102, Carbon Dioxide 31 H, Anion Gap 12.2, BUN 44 H, Creatinine 2.60 H, Estimated Creat Clear 22, Estimated GFR 17 L*, Est GFR ( Amer) 21 L, Glucose 157 H, Lactate 1.2, Calcium 9.1, Magnesium 1.6, Total Bilirubin 0.6, AST 44 H, ALT 20, Alkaline Phosphatase 92, Troponin I 0.01, C-Reactive Protein 34.1 H, NT-Pro-B Natriuret Pep 2990 H, Total Protein 7.2, Albumin 4.1, Globulin 3.1, Albumin/Globulin Ratio 1.3, Procalcitonin 0.238, TSH 1.09, Thyroxine (T4) 9.3 08/11/25 19:10: VBG pH 7.27 L, VBG pCO2 58.5 H, VBG pO2 34.6, VBG HCO3 26.0, VBG Total CO2 27.8 H, VBG O2 Saturation 61.4, VBG Base Excess -1.0, VBG Lactic Acid 1.5, A. baumannii (PCR) Not detected, Bacteroides fragilis Not detected, Cara albicans (PCR) Not detected, Cara auris (PCR) Not detected, C. glabrata (PCR) Not detected, C. krusei (PCR) Not detected, C. parapsilosis (PCR) Not detected, C. tropicalis (PCR) Not detected, Cryptococcus neoformans PCR Not detected, Enterobacterales (PCR) Detected A, Enterococc faecalis PCR Not detected, Enterococc faecium PCR Not detected, E. coli (PCR) Detected A, H. influenzae DNA Not detected, Klebsiella aerogenes (PCR) Not detected, Klebsiella oxytoca PCR Not detected, K. pneumoniae group (PCR) Not detected, List. monocytogenes PCR Not detected, N. meningitidis (PCR) Not detected, Proteus species (PCR) Not detected, Salmonella spp. (PCR) Not detected, Serratia marcescens PCR Not detected, Staphylococcus sp PCR Not detected, Staph aureus (PCR) Not detected, mecA/C & MREJ Resist Gene Not applicable, mecA/C-Methicil Resis Gene Not applicable, Staph epidermidis (PCR) Not detected, Staph lugdunensis (TEM-PCR) Not detected, S. maltophilia (PCR) Not detected, Streptococcus sp PCR Not detected, S.agalactiae Grp B ARGELIA Not detected, Strep pneumoniae (PCR) Not detected, S. pyogenes GrpA ARGELIA Not detected, P. aeruginosa (PCR) Not detected, Akosua/B-Vanco Res Genes Not applicable, blaIMP Car res Gene PCR Not detected, KPC-Carbap Res Gene PCR Not detected, blaNDM Car Res Gene PCR Not detected, OXA- 48 Carbapenem Resis Gene (PCR) Not detected, blaVIM Car Res Gene PCR Not detected, CTX-M Gene Resistance (PCR) Not detected, MCR-1 Resistance Gene Not detected 08/11/25 19:19: SARS-CoV-2 (PCR) Not detected, Influenza A Untype (PCR) Not detected, Influenza Type B (PCR) Not detected 08/11/25 21:12: Troponin I 0.16 H 08/11/25 21:55: Specimen Source Right radial, O2 % 6l, ABG pH 7.31 L, ABG pCO2 57.1 H, ABG pO2 48.1 L, ABG HCO3 28.3 H, ABG Total CO2 30.1 H, ABG O2 Saturation 81 L*, ABG Base Excess 2.1, Janusz Test Acceptable 08/12/25 01:14: Troponin I 0.25 H 08/12/25 04:07: WBC 10.3, RBC 3.09 L, Hgb 8.9 L, Hct 29.3 L, MCV 94.8, MCH 28.8, MCHC 30.4 L, RDW 15.0, Plt Count 103 L, MPV 10.7 H, Neut % (Auto) 91.8 H, Lymph % (Auto) 3.4 L, [place] % (Auto) 3.7, Eos % (Auto) 0.0 L, Baso % (Auto) 0.2, Neut # (Auto) 9.5 H, Lymph # (Auto) 0.4 L, [place] # (Auto) 0.4, Eos # (Auto) 0.0, Baso # (Auto) 0.0, Total Counted 100, Neutrophils % (Manual) 94 H, Lymphocytes % (Manual) 5 L, Monocytes % (Manual) 1 L, Platelet Estimate Slight decrease, RBC Morphology Normal, Sodium 139, Potassium 5.0, Chloride 102, Carbon Dioxide 32 H, Anion Gap 10.0, BUN 45 H, Creatinine 2.70 H, Estimated Creat Clear 21, Estimated GFR 17 L*, Est GFR ( Amer) 20 L, Glucose 183 H, Calcium 8.6, Total Bilirubin 0.4, AST 41 H, ALT 22, Alkaline Phosphatase 77, Troponin I 0.30 H, Total Protein 7.1, Albumin 4.1, Globulin 3.0, Albumin/Globulin Ratio 1.4 08/12/25 05:02: POC Glucose 207 H 08/12/25 08:00: VBG pH 7.37, VBG pCO2 53.3 H, VBG pO2 41.5 H, VBG HCO3 29.8, VBG Total CO2 31.5 H, VBG O2 Saturation 77.2 H, VBG Base Excess 4.5 H, VBG Lactic Acid 2.4 H I & O for Labs for Last 24 Hours: Intake & Output 08/10/25 08/11/25 08/12/25 08/13/25 23:59 23:59 23:59 23:59 Intake Total 200 / 200 600 / 840 570 / 570 Output Total 200 / 200 1050 / 1050 475 / 475 Balance 0 / 0 -450 / -210 95 / 95 Weight 200 lb 199 lb 15.348 oz 199 lb 15.348 oz Intake & Output 08/09/25 08/10/25 08/11/25 08/12/25 23:59 23:59 23:59 23:59 Intake Total 200 / 200 Output Total 200 / 200 550 / 550 Balance 0 / 0 -550 / -550 Weight 200 lb 199 lb 15.348 oz Microbiology Reports for the Last 24 Hours: Microbiology 08/11/25 19:10 Blood Blood Culture - Preliminary 08/11/25 18:55 Blood Blood Culture - Preliminary NO GROWTH AFTER 24 HOURS Microbiology 08/11/25 19:10 Blood Blood Culture - Preliminary Constitutional: Present severe distress Head: Present normocephalic and atraumatic ENT: Present normal exam, normal oropharynx and mucous membranes moist Neck: Present normal inspection and full ROM Respiratory: Present respiratory distress, rhonchi, crackles, diminished air movement and able to speak in complete sentences; Absent wheezes Cardiac: Present S1/S2, Tachycardia and radial pulses present GI: Present soft and distention; Absent tenderness or guarding Rectal (female): Present deferred (female): Present deferred Skin: Present intact; Absent cyanosis or jaundice Neuro: Present alert, awake and oriented x 3 Extremities: Present normal inspection and edema; Absent clubbing or cyanosis Psychiatric: Present normal affect and cooperative Assessment and Plan *Assessment and plan (1) Acute and chronic respiratory failure with hypoxia: Status: Acute Category: Medical Code(s): J96.21 - Acute and chronic respiratory failure with hypoxia (2) Acute exacerbation of chronic obstructive pulmonary disease: Status: Acute Category: Medical Code(s): J44.1 - Chronic obstructive pulmonary disease with (acute) exacerbation (3) Pneumonia: Status: Acute Category: Medical Code(s): J18.9 - Pneumonia, unspecified organism Plan Ms. Nascimento is a 84-year-old female with reported history of COPD chronic hypoxic respiratory failure CKD diabetes mellitus hypertension dyslipidemia presented to the hospital from [facility] complaining of worsening respiratory distress found to be hypoxic hypercarbic respiratory failure needing noninvasive ventilator therapy and pulmonary was called for further evaluation and management. She is following with cardiology, promotes echocardiogram from outside hospital normal EF at 85%, normal diastolic function. Afebrile hemodynamically stable. No evidence of leukocytosis. BNP elevated though improved from prior. Elevated troponins. CKD. Blood gas upon admission mixed metabolic and resp acoidosis with pH of 7.27 and pCO2 58.5, subsequent blood gas showed improvement with 7.37 and 53.3. Chest x-ray upon admission bilateral lower lobe predominant infiltrates, concerning left pleural effusion and right hilar infiltrate. CT chest from April 2025 station 7 and 4R and right hilar lymphadenopathy and also noted to have airspace disease in that CT scan. Right middle lobe and lower lobe pleural-based lesions can well be airspace disease though need repeat scan for further follow-up. Currently being managed for pneumonia COPD exacerbation with steroids, levofloxacin and nebulization therapies. Also receiving Bumex 0.5 mg daily for diuresis, holding. Interval data: CT chest bilateral diffuse ground glass opacities and also patchy airspace disease predominantly in the left lower lobe. Also medial right upper lobe medial patchy airspace disease noted. Mediastinal lymphadenopathy. No significant effusions noted. Coronary artery calcifications noted. Continue to remain on oxygen supplementation, needing 4 to 5 L to maintain O2 saturation goal of 90% and above. Blood cultures in 1 bottle from admission showing gram-negative rods. Plan: Recommend repeating blood cultures Continue levofloxacin x 7 days from pulmonary standpitn for the noted Pneumonia. Follow-up with final culture results Trelegy 200 inhaler along with DuoNebs 4 times daily as needed (Home meds include Wixela 500) Continue prednisone 40 mg daily or equivalent to complete a total of 5-day course # Thank you for involving pulmonary in this patient care. Will follow the patient in pulmonary clinic 1 to 2 weeks post discharge.
[2025-08-13] MEDS: LEVOFLOXACIN/D5W 750 MG/150 ML 750 MG/150 ML PIGGYBACK 100 MG IV (11:11)
[2025-08-13 11:40] LABS: POC Glucose,Bedside 254 gm/dL (70-110)
[2025-08-13 16:24] LABS: Occult Blood,Stool Negative (Negative)
[2025-08-13 16:46] LABS: POC Glucose,Bedside 154 gm/dL (70-110)
[2025-08-13] MEDS: MONTELUKAST SODIUM 10MG TAB 10 MG PO (18:01)
[2025-08-13] MEDS: PANTOPRAZOLE 40MG TABLET 40 MG PO (20:12)
[2025-08-13] MEDS: PRAVASTATIN 40MG TAB 40 MG PO (20:12)
[2025-08-14] VITALS (20 sets, daily range): BP systolic 120–152; BP diastolic 40–62; PULSE 50–70; RESP 14–21; TEMP 36.4–36.8; O2SAT 89–96; BMI 36.6
[2025-08-14] MEDS: METHYLPREDNISOLONE SOD SUCC 40MG VIAL 40 MG IV ×3 (04:28→20:34)
[2025-08-14] MEDS: IPRATROPIUM/ALBUTEROL 3 ML NEB IH ×4 (06:04→23:27)
[2025-08-14] MEDS: BUDESONIDE 0.5MG/2ML NEB 0.5 MG IH ×2 (06:05→18:14)
[2025-08-14 06:22] LABS: POC Glucose,Bedside 168 gm/dL (70-110)
[2025-08-14 07:05] LABS: Hematocrit 27.1 % (37.0-47.0); Hemoglobin 8.5 g/dL (12.2-16.2); Immature Granulocytes % 5.7 %; Mean Corpuscular HGB Conc 31.4 g/dL (31.8-35.4); Mean Corpuscular Hemoglobin 29.2 pg (27.0-31.2); Mean Corpuscular Volume 93.1 fl (81-99); Nucleated Red Blood Cells % 0 %; Platelet Count 89 K/mm3 (142-424); Red Blood Count 2.91 M/mm3 (4.20-5.40); Red Cell Distribution Width-SD 49.3 fL; White Blood Count 7.9 K/mm3 (4.8-10.8)
[2025-08-14 07:12] LABS: Chloride 101 mmol/L (98-107); Potassium 5.0 mmoL/L (3.5-5.1); Sodium 138 mmol/L (136-145)
[2025-08-14 07:15] LABS: Anion Gap 15.0 mEq/L (5-15); Blood Urea Nitrogen 64 mg/dl (7-17); Calcium 8.9 mg/dl (8.4-10.2); Carbon Dioxide 27 mmol/L (22.0-30.0); Creatinine Clearance Estimated 29 mL/min (50-200); Creatinine,Serum 2.00 mg/dl (0.52-1.04); Estimated Glomerular Filt Rate 24 ml/min (>60); GFR (African American) 29 ML/MIN (>60); Glucose 155 mg/dl (74-100)
--- NOTE | 2025-08-14 08:31 | EXP.ACUTE.PN ---
Subjective *Date: 08/14/25 *Time: 08:47 Interval history: Patient feels better today. She had 2 small bowel movements yesterday and was able to sit up in a chair. Medical Exam Vital signs and Labs for Last 24 Hours: Vital Signs Temp Pulse Resp BP Pulse Ox O2 Del Method O2 Flow Rate 08/14/25 08:00 70 08/14/25 06:39 Nasal Cannula 5 08/14/25 06:32 56 L 08/14/25 06:32 58 L 08/14/25 06:32 95 Nasal Cannula 5 08/14/25 05:00 Nasal Cannula 08/14/25 04:16 97.7 F 60 17 124/48 L 93 L Nasal Cannula 5 08/14/25 04:00 64 08/14/25 03:00 Nasal Cannula 5 08/14/25 02:00 BiPAP 08/14/25 02:00 95 CPAP 08/14/25 02:00 08/14/25 01:00 Nasal Cannula 5 08/14/25 00:13 97.7 F 61 20 140/62 95 CPAP 08/14/25 00:00 59 L 08/13/25 23:59 08/13/25 23:47 64 08/13/25 23:47 68 08/13/25 23:00 Nasal Cannula 5 08/13/25 21:15 91 L Nasal Cannula 5 08/13/25 21:00 Nasal Cannula 5 08/13/25 20:33 98.0 F 67 18 134/59 L 93 L Nasal Cannula 5 08/13/25 20:00 93 L Nasal Cannula 5 08/13/25 20:00 68 08/13/25 19:00 Nasal Cannula 5 08/13/25 18:23 64 08/13/25 18:23 68 08/13/25 18:23 96 Nasal Cannula 5 08/13/25 17:15 97.9 F 62 17 129/53 L 94 L Nasal Cannula 5 08/13/25 17:00 Nasal Cannula 5 08/13/25 16:00 70 08/13/25 16:00 93 L Nasal Cannula 5 08/13/25 15:00 Nasal Cannula 5 08/13/25 14:00 Nasal Cannula 5 08/13/25 13:00 Nasal Cannula 5 08/13/25 12:00 60 08/13/25 11:21 97.6 F 65 20 122/52 L 94 L Nasal Cannula 5 08/13/25 11:12 68 08/13/25 11:12 63 08/13/25 11:12 94 L Nasal Cannula 5 08/13/25 11:00 Nasal Cannula 5 08/13/25 10:39 Nasal Cannula 5 08/13/25 09:22 93 L Nasal Cannula 5 08/13/25 09:00 Nasal Cannula FiO2 08/14/25 08:00 08/14/25 06:39 08/14/25 06:32 08/14/25 06:32 08/14/25 06:32 08/14/25 05:00 08/14/25 04:16 08/14/25 04:00 08/14/25 03:00 08/14/25 02:00 08/14/25 02:00 40 08/14/25 02:00 40 08/14/25 01:00 08/14/25 00:13 08/14/25 00:00 08/13/25 23:59 40 08/13/25 23:47 08/13/25 23:47 08/13/25 23:00 08/13/25 21:15 08/13/25 21:00 08/13/25 20:33 08/13/25 20:00 08/13/25 20:00 08/13/25 19:00 08/13/25 18:23 08/13/25 18:23 08/13/25 18:23 40 08/13/25 17:15 08/13/25 17:00 08/13/25 16:00 08/13/25 16:00 08/13/25 15:00 08/13/25 14:00 08/13/25 13:00 08/13/25 12:00 08/13/25 11:21 08/13/25 11:12 08/13/25 11:12 08/13/25 11:12 08/13/25 11:00 08/13/25 10:39 08/13/25 09:22 08/13/25 09:00 Intake and Output 08/13/25 08/14/25 08/14/25 23:59 07:59 15:59 Intake Total 210 / 1470 120 / 120 Output Total 600 / 1075 700 / 700 Balance -390 / 395 -580 / -580 Intake: Intake, Oral Amount 210 / 1320 120 / 120 Output: Output, Urine Amount 600 / 1075 700 / 700 Other: Number of Unmeasured Voids 0 0 Number of Bowel Movements 1 Weight 199 lb 4.766 oz Patient Weight 08/14/25 23:59 Weight 199 lb 4.766 oz Laboratory Results - last 24 hr 08/13/25 11:17: POC Glucose 254 H 08/13/25 15:10: Stool Occult Blood Negative 08/13/25 16:24: POC Glucose 154 H 08/14/25 06:15: POC Glucose 168 H 08/14/25 06:25: WBC 7.9, RBC 2.91 L, Hgb 8.5 L, Hct 27.1 L, MCV 93.1, MCH 29.2, MCHC 31.4 L, RDW 14.6, Plt Count 89 L, MPV 13.4 H, Neut % (Auto) 81.9 H, Lymph % (Auto) 7.6 L, [place] % (Auto) 4.4, Eos % (Auto) 0.1, Baso % (Auto) 0.3, Neut # (Auto) 6.5, Lymph # (Auto) 0.6 L, [place] # (Auto) 0.4, Eos # (Auto) 0.0, Baso # (Auto) 0.0, Sodium 138, Potassium 5.0, Chloride 101, Carbon Dioxide 27, Anion Gap 15.0, BUN 64 H, Creatinine 2.00 H D, Estimated Creat Clear 29, Estimated GFR 24 L, Est GFR ( Amer) 29 L D, Glucose 155 H, Calcium 8.9 I & O for Labs for Last 24 Hours: Intake & Output 08/11/25 08/12/25 08/13/25 08/14/25 23:59 23:59 23:59 23:59 Intake Total 200 / 200 600 / 840 1350 / 1470 120 / 120 Output Total 200 / 200 1050 / 1050 1075 / 1075 700 / 700 Balance 0 / 0 -450 / -210 275 / 395 -580 / -580 Weight 200 lb 199 lb 15.348 oz 199 lb 15.348 oz 199 lb 4.766 oz Microbiology Reports for the Last 24 Hours: Microbiology 08/11/25 18:55 Blood Blood Culture - Preliminary NO GROWTH AFTER 48 HOURS 08/11/25 19:10 Blood Aerobic Organism ID Result 1 - Final Not Reportable 08/11/25 19:10 Blood Aerobic Organism ID Result 2 - Final Not Reportable 08/11/25 19:10 Blood Aerobic Organism ID Result 3 - Final Not Reportable 08/11/25 19:10 Blood Aerobic Organism ID Result 4 - Final Not Reportable 08/11/25 19:10 Blood Antimicrobic Susceptibility - Final Not Reportable 08/11/25 19:10 Blood Blood Culture - Preliminary Constitutional: Present no acute distress Respiratory: Present wheezes (bilateral) and normal respiratory effort; Absent crackles Cardiac: Present Reg Rate and Rhythm GI: Present soft; Absent distention or tenderness Extremities: Absent edema Skin: Present intact Neuro: Present alert, awake and oriented x 3 Assessment and Plan *Assessment and plan (1) Community acquired bilateral lower lobe pneumonia: Status: Acute Category: Medical Code(s): J18.9 - Pneumonia, unspecified organism (2) Acute on chronic respiratory failure with hypoxia and hypercapnia: Status: Acute Category: Medical Code(s): J96.21 - Acute and chronic respiratory failure with hypoxia; J96.22 - Acute and chronic respiratory failure with hypercapnia (3) Acute exacerbation of chronic obstructive pulmonary disease: Status: Acute Category: Medical Code(s): J44.1 - Chronic obstructive pulmonary disease with (acute) exacerbation (4) Bilateral lower extremity edema: Status: Acute Category: Medical Code(s): R60.0 - Localized edema (5) BRIDGETTE (obstructive sleep apnea): Status: Acute Category: Medical Code(s): G47.33 - Obstructive sleep apnea (adult) (pediatric) (6) D-dimer, elevated: Status: Acute Category: Medical Code(s): R79.89 - Other specified abnormal findings of blood chemistry (7) CKD (chronic kidney disease) stage 4, GFR 15-29 ml/min: Status: Acute Category: Medical Code(s): N18.4 - Chronic kidney disease, stage 4 (severe) (8) CHF (congestive heart failure): Status: Acute Qualifiers: Heart failure chronicity: chronic Heart failure type: unspecified Qualified Code(s): I50.9 - Heart failure, unspecified Category: Medical Code(s): I50.9 - Heart failure, unspecified (9) Thrombocytopenia: Status: Acute Category: Medical Code(s): D69.6 - Thrombocytopenia, unspecified (10) Diabetes: Status: Acute Qualifiers: Diabetes mellitus complication status: without complication Diabetes 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 insulin use: without nursing home use Diabetes mellitus type: type 2 Qualified Code(s): E11.9 - Type 2 diabetes mellitus without complications Category: Medical Code(s): E11.9 - Type 2 diabetes mellitus without complications (11) Hypertension: Status: Acute Qualifiers: Hypertension type: primary hypertension Qualified Code(s): I10 - Essential (primary) hypertension Category: Medical Code(s): I10 - Essential (primary) hypertension (12) Hyperlipidemia: Status: Acute Qualifiers: Hyperlipidemia type: unspecified Qualified Code(s): E78.5 - Hyperlipidemia, unspecified Category: Medical Code(s): E78.5 - Hyperlipidemia, unspecified (13) Elevated troponin: Status: Acute Category: Medical Code(s): R79.89 - Other specified abnormal findings of blood chemistry (14) Acute and chronic respiratory failure with hypoxia: Status: Acute Category: Medical Code(s): J96.21 - Acute and chronic respiratory failure with hypoxia (15) Acute exacerbation of chronic obstructive pulmonary disease: Status: Acute Category: Medical Code(s): J44.1 - Chronic obstructive pulmonary disease with (acute) exacerbation (16) Pneumonia: Status: Acute Category: Medical Code(s): J18.9 - Pneumonia, unspecified organism (17) E coli bacteremia: Status: Acute Category: Medical Code(s): R78.81 - Bacteremia; B96.20 - Unspecified Escherichia coli [E. coli] as the cause of diseases classified elsewhere (18) Anemia: Status: Acute Category: Medical Code(s): D64.9 - Anemia, unspecified Plan Patient continues to improve slowly, will stop Heparin today, give 1 liter of IV NS, recheck labs tomorrow, await culture results.
[2025-08-14] MEDS: NYSTATIN TOPICAL POWDER 30GM TP ×2 (08:41→20:33)
[2025-08-14] MEDS: PREGABALIN 25MG CAPSULE 75 MG PO ×2 (08:41→20:36)
[2025-08-14] MEDS: FLUTICASONE PROP 50MCG NASAL SPRAY 16GM 2 SPRAY NS (08:42)
[2025-08-14] MEDS: METOPROLOL SUCCINATE XL 25MG TABLET 12.5 MG PO (08:43)
[2025-08-14] MEDS: BUMETANIDE 1 MG TABLET 0.5 MG PO (08:44)
[2025-08-14] MEDS: OYSTER SHELL CALCIUM (ELEMENTAL) 500MG TAB 500 MG PO (08:50)
[2025-08-14] MEDS: ESCITALOPRAM 20MG TABLET 20 MG PO (08:50)
[2025-08-14] MEDS: 0.9 % SODIUM CHLORIDE 1000ML 1,000 ML 75 ML IV (08:53)
[2025-08-14 09:49] LABS: Total Cells Counted 100
[2025-08-14 09:51] LABS: Anisocytosis 1+
--- NOTE | 2025-08-14 10:59 | HMH.PHAAMS2 ---
- Antimicrobial Stewardship Review culture & sensitivity review Stewardship interventions: culture & sensitivity review (CURRENTLY RECEIVING LEVAQUIN, WBC WNL, AFEBRILE, CX PENDING.)
[2025-08-14] MEDS: humaLOG 100 UNITS/ML 10ML VIAL (SSI) SUBCUT ×3 (11:16→21:46)
[2025-08-14 11:17] LABS: POC Glucose,Bedside 240 gm/dL (70-110)
[2025-08-14 16:19] LABS: POC Glucose,Bedside 263 gm/dL (70-110)
[2025-08-14] MEDS: MONTELUKAST SODIUM 10MG TAB 10 MG PO (18:10)
[2025-08-14] MEDS: PANTOPRAZOLE 40MG TABLET 40 MG PO (20:34)
[2025-08-14] MEDS: PRAVASTATIN 40MG TAB 40 MG PO (20:34)
[2025-08-14 20:52] LABS: POC Glucose,Bedside 206 gm/dL (70-110)
--- NOTE | 2025-08-14 23:42 | PC.NURSE ---
Per RT patient refusing to wear bipap
--- NOTE | 2025-08-14 23:45 | PC.NURSE ---
Patient refused bipap
[2025-08-15] VITALS (18 sets, daily range): BP systolic 127–167; BP diastolic 56–73; PULSE 57–84; RESP 13–24; TEMP 36.4–36.6; O2SAT 90–98; BMI 36.6
--- NOTE | 2025-08-15 01:08 | PC.NURSE ---
Patient continues to desat. while sleeping; agreeable to be placed back on bipap;
[2025-08-15] MEDS: METHYLPREDNISOLONE SOD SUCC 40MG VIAL 40 MG IV ×3 (04:30→20:07)
[2025-08-15] MEDS: IPRATROPIUM/ALBUTEROL 3 ML NEB IH ×4 (06:11→23:05)
[2025-08-15] MEDS: BUDESONIDE 0.5MG/2ML NEB 0.5 MG IH ×2 (06:11→18:28)
[2025-08-15 06:14] LABS: POC Glucose,Bedside 191 gm/dL (70-110)
[2025-08-15 07:22] LABS: Hematocrit 26.8 % (37.0-47.0); Hemoglobin 8.4 g/dL (12.2-16.2); Immature Granulocytes % 8.6 %; Mean Corpuscular HGB Conc 31.3 g/dL (31.8-35.4); Mean Corpuscular Hemoglobin 28.8 pg (27.0-31.2); Mean Corpuscular Volume 91.8 fl (81-99); Nucleated Red Blood Cells % 0 %; Platelet Count 102 K/mm3 (142-424); Red Blood Count 2.92 M/mm3 (4.20-5.40); Red Cell Distribution Width-SD 48.0 fL; White Blood Count 7.6 K/mm3 (4.8-10.8)
[2025-08-15 07:31] LABS: Chloride 99 mmol/L (98-107); Potassium 4.5 mmoL/L (3.5-5.1); Sodium 138 mmol/L (136-145)
[2025-08-15 07:34] LABS: Anion Gap 13.5 mEq/L (5-15); Blood Urea Nitrogen 60 mg/dl (7-17); Carbon Dioxide 30 mmol/L (22.0-30.0); Creatinine Clearance Estimated 29 mL/min (50-200); Creatinine,Serum 2.00 mg/dl (0.52-1.04); Estimated Glomerular Filt Rate 24 ml/min (>60); GFR (African American) 29 ML/MIN (>60)
[2025-08-15 07:35] LABS: Calcium 8.5 mg/dl (8.4-10.2); Glucose 182 mg/dl (74-100)
[2025-08-15] MEDS: BUMETANIDE 1 MG TABLET 0.5 MG PO (08:31)
[2025-08-15] MEDS: ESCITALOPRAM 20MG TABLET 20 MG PO (08:32)
[2025-08-15] MEDS: METOPROLOL SUCCINATE XL 25MG TABLET 12.5 MG PO (08:32)
[2025-08-15] MEDS: NYSTATIN TOPICAL POWDER 30GM TP ×2 (08:33→20:07)
[2025-08-15] MEDS: OYSTER SHELL CALCIUM (ELEMENTAL) 500MG TAB 500 MG PO (08:33)
[2025-08-15] MEDS: FLUTICASONE PROP 50MCG NASAL SPRAY 16GM 2 SPRAY NS (08:33)
[2025-08-15] MEDS: PREGABALIN 25MG CAPSULE 75 MG PO ×2 (08:35→20:07)
--- NOTE | 2025-08-15 09:15 | EXP.ACUTE.PN ---
Subjective *Date: 08/15/25 *Time: 09:15 Interval history: Patient feels better today. Medical Exam Vital signs and Labs for Last 24 Hours: Vital Signs Temp Pulse Resp BP Pulse Ox O2 Del Method O2 Flow Rate 08/15/25 08:32 94 L Nasal Cannula 08/15/25 08:14 97.9 F 75 19 139/64 91 L Nasal Cannula 3 08/15/25 08:00 93 L Nasal Cannula 3 08/15/25 06:44 Nasal Cannula 4 08/15/25 06:11 57 L 08/15/25 06:11 59 L 08/15/25 06:11 94 L Nasal Cannula 3 08/15/25 05:00 Nasal Cannula 4 08/15/25 04:30 57 L 20 93 L 08/15/25 04:19 97.6 F 59 L 24 167/73 H 98 CPAP 08/15/25 04:00 65 08/15/25 03:00 Nasal Cannula 4 08/15/25 02:04 08/15/25 01:00 Nasal Cannula 4 08/15/25 00:01 97.6 F 65 13 139/64 90 L Nasal Cannula 4 08/15/25 00:01 139/64 08/15/25 00:00 96 BiPAP 08/15/25 00:00 63 08/14/25 23:35 68 08/14/25 23:34 66 08/14/25 23:00 Nasal Cannula 4 08/14/25 21:00 Nasal Cannula 4 08/14/25 20:21 98.0 F 65 19 152/60 H 90 L Nasal Cannula 4 08/14/25 20:00 96 Nasal Cannula 4 08/14/25 20:00 64 08/14/25 18:48 Nasal Cannula 4 08/14/25 18:47 66 08/14/25 18:46 63 08/14/25 18:43 Nasal Cannula 4 08/14/25 17:00 Nasal Cannula 4 08/14/25 16:11 97.7 F 61 21 138/58 L 95 Nasal Cannula 4 08/14/25 16:00 Nasal Cannula 4 08/14/25 16:00 50 L 08/14/25 15:00 Nasal Cannula 4 08/14/25 14:00 Nasal Cannula 4 08/14/25 13:40 97.5 F L 63 15 126/51 L 90 L Nasal Cannula 4 08/14/25 13:00 Nasal Cannula 4 08/14/25 12:00 70 08/14/25 11:06 58 L 08/14/25 11:06 64 08/14/25 11:06 92 L Nasal Cannula 4 08/14/25 11:00 Nasal Cannula 4 08/14/25 09:35 94 L Nasal Cannula 4 FiO2 08/15/25 08:32 08/15/25 08:14 08/15/25 08:00 08/15/25 06:44 08/15/25 06:11 08/15/25 06:11 08/15/25 06:11 08/15/25 05:00 08/15/25 04:30 08/15/25 04:19 08/15/25 04:00 08/15/25 03:00 08/15/25 02:04 40 08/15/25 01:00 08/15/25 00:01 08/15/25 00:01 08/15/25 00:00 40 08/15/25 00:00 08/14/25 23:35 08/14/25 23:34 08/14/25 23:00 08/14/25 21:00 08/14/25 20:21 08/14/25 20:00 08/14/25 20:00 08/14/25 18:48 08/14/25 18:47 08/14/25 18:46 08/14/25 18:43 08/14/25 17:00 08/14/25 16:11 08/14/25 16:00 08/14/25 16:00 08/14/25 15:00 08/14/25 14:00 08/14/25 13:40 08/14/25 13:00 08/14/25 12:00 08/14/25 11:06 08/14/25 11:06 08/14/25 11:06 08/14/25 11:00 08/14/25 09:35 Intake and Output 08/14/25 08/15/25 08/15/25 23:59 07:59 15:59 Intake Total 1444 / 2584 300 / 300 Output Total 650 / 2150 1050 / 1050 Balance 794 / 434 -750 / -750 Intake: Intake, Oral Amount 444 / 1584 300 / 300 Intake, Total IV Amount 1000 / 1000 0.9 % Sodium Chloride 1000ML 1, 1000 / 1000 000 ml @ 75 mls/hr IV .[id number] [facility] Rx#:[id number] Output: Output, Urine Amount 650 / 2150 1050 / 1050 Other: Number of Unmeasured Voids 0 0 0 Weight 199 lb 4.766 oz Patient Weight 08/15/25 23:59 Weight 199 lb 4.766 oz Laboratory Results - last 24 hr 08/14/25 06:25: Total Counted 100, Neutrophils % (Manual) 86 H, Lymphocytes % (Manual) 9 L, Monocytes % (Manual) 5, Platelet Estimate Moderate decrease, Anisocytosis 1+ 08/14/25 11:09: POC Glucose 240 H 08/14/25 16:10: POC Glucose 263 H 08/14/25 20:44: POC Glucose 206 H 08/15/25 06:07: POC Glucose 191 H 08/15/25 06:50: WBC 7.6, RBC 2.92 L, Hgb 8.4 L, Hct 26.8 L, MCV 91.8, MCH 28.8, MCHC 31.3 L, RDW 14.2, Plt Count 102 L, MPV 10.1, Neut % (Auto) 78.5, Lymph % (Auto) 7.8 L, [place] % (Auto) 4.4, Eos % (Auto) 0.0 L, Baso % (Auto) 0.7, Neut # (Auto) 5.9, Lymph # (Auto) 0.6 L, [place] # (Auto) 0.3, Eos # (Auto) 0.0, Baso # (Auto) 0.1, Sodium 138, Potassium 4.5, Chloride 99, Carbon Dioxide 30, Anion Gap 13.5, BUN 60 H, Creatinine 2.00 H, Estimated Creat Clear 29, Estimated GFR 24 L, Est GFR ( Amer) 29 L, Glucose 182 H, Calcium 8.5 I & O for Labs for Last 24 Hours: Intake & Output 08/12/25 08/13/25 08/14/25 08/15/25 23:59 23:59 23:59 23:59 Intake Total 600 / 840 1350 / 1470 2284 / 2584 300 / 300 Output Total 1050 / 1050 1075 / 1075 1900 / 2150 1050 / 1050 Balance -450 / -210 275 / 395 384 / 434 -750 / -750 Weight 199 lb 15.348 oz 199 lb 15.348 oz 199 lb 4.766 oz 199 lb 4.766 oz Constitutional: Present no acute distress Respiratory: Present wheezes (bilateral) and normal respiratory effort; Absent crackles Cardiac: Present Reg Rate and Rhythm GI: Present soft; Absent distention or tenderness Extremities: Absent edema Skin: Present intact Neuro: Present alert, awake and oriented x 3 Assessment and Plan *Assessment and plan (1) Community acquired bilateral lower lobe pneumonia: Status: Acute Category: Medical Code(s): J18.9 - Pneumonia, unspecified organism (2) Acute on chronic respiratory failure with hypoxia and hypercapnia: Status: Acute Category: Medical Code(s): J96.21 - Acute and chronic respiratory failure with hypoxia; J96.22 - Acute and chronic respiratory failure with hypercapnia (3) Acute exacerbation of chronic obstructive pulmonary disease: Status: Acute Category: Medical Code(s): J44.1 - Chronic obstructive pulmonary disease with (acute) exacerbation (4) Bilateral lower extremity edema: Status: Acute Category: Medical Code(s): R60.0 - Localized edema (5) BRIDGETTE (obstructive sleep apnea): Status: Acute Category: Medical Code(s): G47.33 - Obstructive sleep apnea (adult) (pediatric) (6) D-dimer, elevated: Status: Acute Category: Medical Code(s): R79.89 - Other specified abnormal findings of blood chemistry (7) CKD (chronic kidney disease) stage 4, GFR 15-29 ml/min: Status: Acute Category: Medical Code(s): N18.4 - Chronic kidney disease, stage 4 (severe) (8) CHF (congestive heart failure): Status: Acute Qualifiers: Heart failure chronicity: chronic Heart failure type: unspecified Qualified Code(s): I50.9 - Heart failure, unspecified Category: Medical Code(s): I50.9 - Heart failure, unspecified (9) Thrombocytopenia: Status: Acute Category: Medical Code(s): D69.6 - Thrombocytopenia, unspecified (10) Diabetes: Status: Acute Qualifiers: Diabetes mellitus type: type 2 Diabetes mellitus medical terminologist insulin use: without mcc use Diabetes mellitus complication status: without complication Qualified Code(s): E11.9 - Type 2 diabetes mellitus without complications Category: Medical Code(s): E11.9 - Type 2 diabetes mellitus without complications (11) Hypertension: Status: Acute Qualifiers: Hypertension type: primary hypertension Qualified Code(s): I10 - Essential (primary) hypertension Category: Medical Code(s): I10 - Essential (primary) hypertension (12) Hyperlipidemia: Status: Acute Qualifiers: Hyperlipidemia type: unspecified Qualified Code(s): E78.5 - Hyperlipidemia, unspecified Category: Medical Code(s): E78.5 - Hyperlipidemia, unspecified (13) Elevated troponin: Status: Acute Category: Medical Code(s): R79.89 - Other specified abnormal findings of blood chemistry (14) Acute and chronic respiratory failure with hypoxia: Status: Acute Category: Medical Code(s): J96.21 - Acute and chronic respiratory failure with hypoxia (15) Acute exacerbation of chronic obstructive pulmonary disease: Status: Acute Category: Medical Code(s): J44.1 - Chronic obstructive pulmonary disease with (acute) exacerbation (16) Pneumonia: Status: Acute Category: Medical Code(s): J18.9 - Pneumonia, unspecified organism (17) E coli bacteremia: Status: Acute Category: Medical Code(s): R78.81 - Bacteremia; B96.20 - Unspecified Escherichia coli [E. coli] as the cause of diseases classified elsewhere (18) Anemia: Status: Acute Category: Medical Code(s): D64.9 - Anemia, unspecified Plan Patient is slowly improving. Remove Ramirez today, possible discharge back to [facility] tomorrow.
[2025-08-15 10:36] LABS: RBC Morphology Normal; Total Cells Counted 100
[2025-08-15 11:08] LABS: POC Glucose,Bedside 296 gm/dL (70-110)
[2025-08-15] MEDS: humaLOG 100 UNITS/ML 10ML VIAL (SSI) SUBCUT ×3 (11:20→22:38)
[2025-08-15] MEDS: LEVOFLOXACIN/D5W 750 MG/150 ML 750 MG/150 ML PIGGYBACK 100 MG IV (11:21)
--- NOTE | 2025-08-15 11:26 | HMH.PHAAMS2 ---
- Antimicrobial Stewardship Review culture & sensitivity review Stewardship interventions: culture & sensitivity review (CURRENTLY RECEIVING LEVAQUIN FOR PNA, WBC WNL, AFEBRILE, CX PENDING.)
--- NOTE | 2025-08-15 11:28 | HMH.PHAAMS2 ---
- Antimicrobial Stewardship Review 48 hour timeout review Stewardship interventions: 48 hour timeout review (CURRENTLY RECEIVING LEVAQUIN FOR PNA, WBC WNL, AFEBRILE, CX PENDING.)
[2025-08-15 16:27] LABS: POC Glucose,Bedside 296 gm/dL (70-110)
[2025-08-15] MEDS: MONTELUKAST SODIUM 10MG TAB 10 MG PO (17:31)
--- NOTE | 2025-08-15 17:38 | PC.NURSE ---
Patient has done well this shift. She has been up to the chair for a majority of the shift. Ramirez cath was removed this AM and she has voided since removal. No c/o pain, nausea or vomiting this shift. BS active. Remains on 3L nasal cannula and is tolerating well. She A&O x4. Lung sounds diminished.
[2025-08-15] MEDS: PANTOPRAZOLE 40MG TABLET 40 MG PO (20:07)
[2025-08-15] MEDS: PRAVASTATIN 40MG TAB 40 MG PO (20:08)
[2025-08-15 22:12] LABS: POC Glucose,Bedside 267 gm/dL (70-110)
[2025-08-16] VITALS (8 sets, daily range): BP systolic 120–144; BP diastolic 63–78; PULSE 60–84; RESP 16–20; TEMP 36.6–36.9; O2SAT 90–99; BMI 36.8
[2025-08-16 05:34] LABS: POC Glucose,Bedside 224 gm/dL (70-110)
[2025-08-16] MEDS: METHYLPREDNISOLONE SOD SUCC 40MG VIAL 40 MG IV ×2 (05:40→13:07)
[2025-08-16] MEDS: humaLOG 100 UNITS/ML 10ML VIAL (SSI) SUBCUT ×2 (05:40→11:23)
[2025-08-16 06:02] LABS: Hematocrit 26.7 % (37.0-47.0); Hemoglobin 8.3 g/dL (12.2-16.2); Immature Granulocytes % 11.9 %; Mean Corpuscular HGB Conc 31.1 g/dL (31.8-35.4); Mean Corpuscular Hemoglobin 28.5 pg (27.0-31.2); Mean Corpuscular Volume 91.8 fl (81-99); Nucleated Red Blood Cells % 0 %; Platelet Count 111 K/mm3 (142-424); Red Blood Count 2.91 M/mm3 (4.20-5.40); Red Cell Distribution Width-SD 47.6 fL; White Blood Count 8.8 K/mm3 (4.8-10.8)
[2025-08-16 06:07] LABS: Chloride 99 mmol/L (98-107)
[2025-08-16 06:08] LABS: Potassium 4.3 mmoL/L (3.5-5.1); Sodium 140 mmol/L (136-145)
[2025-08-16 06:10] LABS: Blood Urea Nitrogen 60 mg/dl (7-17); Creatinine Clearance Estimated 30 mL/min (50-200); Creatinine,Serum 1.90 mg/dl (0.52-1.04); Estimated Glomerular Filt Rate 25 ml/min (>60); GFR (African American) 30 ML/MIN (>60)
[2025-08-16 06:11] LABS: Anion Gap 11.3 mEq/L (5-15); Calcium 8.3 mg/dl (8.4-10.2); Carbon Dioxide 34 mmol/L (22.0-30.0); Glucose 185 mg/dl (74-100)
[2025-08-16] MEDS: BUDESONIDE 0.5MG/2ML NEB 0.5 MG IH (06:17)
[2025-08-16] MEDS: IPRATROPIUM/ALBUTEROL 3 ML NEB IH (06:17)
[2025-08-16 07:34] LABS: Hypochromasia 1+; Total Cells Counted 100
--- NOTE | 2025-08-16 08:31 | EXP.ACUTE.PN ---
Subjective *Date: 08/16/25 *Time: 08:50 Interval history: Patient feels a little better today. No new complaints. Medical Exam Vital signs and Labs for Last 24 Hours: Vital Signs Temp Pulse Pulse Resp BP BP Pulse Ox 08/16/25 08:00 97.8 F 70 18 120/63 94 L 08/16/25 07:59 90 L 08/16/25 06:43 08/16/25 06:18 84 08/16/25 06:18 80 08/16/25 05:28 08/16/25 04:00 60 08/16/25 03:58 97.8 F 81 16 144/78 H 99 08/16/25 03:26 08/16/25 01:22 08/16/25 00:00 70 08/15/25 23:49 98 F 73 17 147/64 H 93 L 08/15/25 23:06 64 08/15/25 23:06 68 08/15/25 23:06 94 L 08/15/25 23:00 08/15/25 21:12 08/15/25 20:17 08/15/25 20:00 70 08/15/25 20:00 98 F 73 16 130/67 95 08/15/25 19:00 08/15/25 18:28 82 08/15/25 18:28 84 08/15/25 18:28 95 08/15/25 17:00 08/15/25 16:28 70 08/15/25 16:07 08/15/25 15:00 08/15/25 13:00 08/15/25 12:12 97.9 F 66 19 127/56 L 93 L 08/15/25 12:00 60 08/15/25 11:32 63 08/15/25 11:32 73 08/15/25 11:00 08/15/25 09:00 08/15/25 08:32 94 L O2 Del Method O2 Flow Rate FiO2 08/16/25 08:00 Nasal Cannula 3 08/16/25 07:59 Nasal Cannula 3 08/16/25 06:43 Nasal Cannula 3 08/16/25 06:18 08/16/25 06:18 08/16/25 05:28 Nasal Cannula 08/16/25 04:00 08/16/25 03:58 Nasal Cannula 3 08/16/25 03:26 Nasal Cannula 08/16/25 01:22 Nasal Cannula 08/16/25 00:00 08/15/25 23:49 Nasal Cannula 3 08/15/25 23:06 08/15/25 23:06 08/15/25 23:06 Nasal Cannula 3 08/15/25 23:00 Nasal Cannula 08/15/25 21:12 Nasal Cannula 08/15/25 20:17 Nasal Cannula 3 08/15/25 20:00 08/15/25 20:00 Nasal Cannula 3 08/15/25 19:00 Nasal Cannula 3 08/15/25 18:28 08/15/25 18:28 08/15/25 18:28 Nasal Cannula 3 08/15/25 17:00 Nasal Cannula 3 08/15/25 16:28 08/15/25 16:07 Nasal Cannula 4 08/15/25 15:00 Nasal Cannula 4 08/15/25 13:00 Nasal Cannula 4 08/15/25 12:12 Nasal Cannula 4 08/15/25 12:00 08/15/25 11:32 08/15/25 11:32 08/15/25 11:00 Nasal Cannula 4 08/15/25 09:00 Nasal Cannula 3 08/15/25 08:32 Nasal Cannula Intake and Output 08/15/25 08/16/25 08/16/25 23:59 07:59 15:59 Intake Total 220 / 1228 480 / 480 Output Total 700 / 2550 550 / 950 400 / 950 Balance -480 / -1322 -550 / -470 80 / -470 Intake: Intake, Oral Amount 220 / 1078 480 / 480 Output: Output, Urine Amount 700 / 1950 550 / 950 400 / 950 Other: Number of Voids 1 Number of Unmeasured Voids 200 0 Weight 200 lb 4.8 oz Patient Weight 08/16/25 23:59 Weight 200 lb 4.8 oz Laboratory Results - last 24 hr 08/15/25 06:50: Total Counted 100, Neutrophils % (Manual) 87 H, Lymphocytes % (Manual) 8 L, Monocytes % (Manual) 5, Platelet Estimate Slight decrease, RBC Morphology Normal 08/15/25 11:01: POC Glucose 296 H 08/15/25 16:17: POC Glucose 296 H 08/15/25 22:04: POC Glucose 267 H 08/16/25 05:27: POC Glucose 224 H 08/16/25 05:45: WBC 8.8, RBC 2.91 L, Hgb 8.3 L, Hct 26.7 L, MCV 91.8, MCH 28.5, MCHC 31.1 L, RDW 14.1, Plt Count 111 L, MPV 10.3, Neut % (Auto) 75.2, Lymph % (Auto) 7.8 L, [place] % (Auto) 4.9, Eos % (Auto) 0.0 L, Baso % (Auto) 0.2, Neut # (Auto) 6.7, Lymph # (Auto) 0.7, [place] # (Auto) 0.4, Eos # (Auto) 0.0, Baso # (Auto) 0.0, Total Counted 100, Neutrophils % (Manual) 74, Lymphocytes % (Manual) 18, Monocytes % (Manual) 5, Eosinophils % (Manual) 3, Platelet Estimate Slight decrease, Hypochromasia 1+, Sodium 140, Potassium 4.3, Chloride 99, Carbon Dioxide 34 H, Anion Gap 11.3, BUN 60 H, Creatinine 1.90 H, Estimated Creat Clear 30, Estimated GFR 25 L, Est GFR ( Amer) 30 L, Glucose 185 H, Calcium 8.3 L I & O for Labs for Last 24 Hours: Intake & Output 08/13/25 08/14/25 08/15/25 08/16/25 23:59 23:59 23:59 23:59 Intake Total 1350 / 1470 2284 / 2584 1228 / 1228 480 / 480 Output Total 1075 / 1075 1900 / 2150 2550 / 2550 950 / 950 Balance 275 / 395 384 / 434 -1322 / -1322 -470 / -470 Weight 199 lb 15.348 oz 199 lb 4.766 oz 199 lb 4.766 oz 200 lb 4.8 oz Microbiology Reports for the Last 24 Hours: Microbiology 08/11/25 18:55 Blood Blood Culture - Preliminary NO GROWTH AFTER 4 DAYS 08/14/25 13:30 Blood Blood Culture - Preliminary NO GROWTH AFTER 24 HOURS 08/14/25 13:25 Blood Blood Culture - Preliminary NO GROWTH AFTER 24 HOURS Constitutional: Present no acute distress Respiratory: Present wheezes (bilateral) and normal respiratory effort; Absent crackles Cardiac: Present Reg Rate and Rhythm GI: Present soft; Absent distention or tenderness Extremities: Absent edema Skin: Present intact Neuro: Present alert, awake and oriented x 3 Assessment and Plan *Assessment and plan (1) Community acquired bilateral lower lobe pneumonia: Status: Acute Category: Medical Code(s): J18.9 - Pneumonia, unspecified organism (2) Acute on chronic respiratory failure with hypoxia and hypercapnia: Status: Acute Category: Medical Code(s): J96.21 - Acute and chronic respiratory failure with hypoxia; J96.22 - Acute and chronic respiratory failure with hypercapnia (3) Acute exacerbation of chronic obstructive pulmonary disease: Status: Acute Category: Medical Code(s): J44.1 - Chronic obstructive pulmonary disease with (acute) exacerbation (4) Bilateral lower extremity edema: Status: Acute Category: Medical Code(s): R60.0 - Localized edema (5) BRIDGETTE (obstructive sleep apnea): Status: Acute Category: Medical Code(s): G47.33 - Obstructive sleep apnea (adult) (pediatric) (6) D-dimer, elevated: Status: Acute Category: Medical Code(s): R79.89 - Other specified abnormal findings of blood chemistry (7) CKD (chronic kidney disease) stage 4, GFR 15-29 ml/min: Status: Acute Category: Medical Code(s): N18.4 - Chronic kidney disease, stage 4 (severe) (8) CHF (congestive heart failure): Status: Acute Qualifiers: Heart failure chronicity: chronic Heart failure type: unspecified Qualified Code(s): I50.9 - Heart failure, unspecified Category: Medical Code(s): I50.9 - Heart failure, unspecified (9) Thrombocytopenia: Status: Acute Category: Medical Code(s): D69.6 - Thrombocytopenia, unspecified (10) Diabetes: Status: Acute Qualifiers: Diabetes mellitus complication status: without complication 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: without alf use Diabetes mellitus type: type 2 Qualified Code(s): E11.9 - Type 2 diabetes mellitus without complications Category: Medical Code(s): E11.9 - Type 2 diabetes mellitus without complications (11) Hypertension: Status: Acute Qualifiers: Hypertension type: primary hypertension Qualified Code(s): I10 - Essential (primary) hypertension Category: Medical Code(s): I10 - Essential (primary) hypertension (12) Hyperlipidemia: Status: Acute Qualifiers: Hyperlipidemia type: unspecified Qualified Code(s): E78.5 - Hyperlipidemia, unspecified Category: Medical Code(s): E78.5 - Hyperlipidemia, unspecified (13) Elevated troponin: Status: Acute Category: Medical Code(s): R79.89 - Other specified abnormal findings of blood chemistry (14) Acute and chronic respiratory failure with hypoxia: Status: Acute Category: Medical Code(s): J96.21 - Acute and chronic respiratory failure with hypoxia (15) Acute exacerbation of chronic obstructive pulmonary disease: Status: Acute Category: Medical Code(s): J44.1 - Chronic obstructive pulmonary disease with (acute) exacerbation (16) Pneumonia: Status: Acute Category: Medical Code(s): J18.9 - Pneumonia, unspecified organism (17) E coli bacteremia: Status: Acute Category: Medical Code(s): R78.81 - Bacteremia; B96.20 - Unspecified Escherichia coli [E. coli] as the cause of diseases classified elsewhere (18) Anemia: Status: Acute Category: Medical Code(s): D64.9 - Anemia, unspecified Plan Plan discharge back to [facility] today, will treat with oral Levaquin 750 mg every other day for 10 more days.
--- NOTE | 2025-08-16 08:41 | HMH.PHAAMS2 ---
- Antimicrobial Stewardship Review culture & sensitivity review Stewardship interventions: culture & sensitivity review (CURRENTLY ON LEVAQUIN, WBC WNL, AFEBRILE, BLD CX PENDING.)
--- NOTE | 2025-08-16 08:55 | EXP.DC.SUM ---
General Admission date:: 08/11/25 Discharge date: 08/16/25 HPI HPI HPI: Kirstie Nascimento is an 84-year-old female with past medical history significant for oxygen dependent COPD, supplemental oxygen 4 L, COPD, former smoker, GERD, CKD, mediastinal lymphadenopathy, diabetes mellitus, inability to bear weight, HTN, HLD, neuropathy, depression and GERD. Patient [facility] [place] [facility] [place] breath. Patient is a poor historian, history provided per staff and chart review. EMS notified per nursing facility due to concern of fever. On arrival to intermediate, patient was found to be hypoxic. Saturations in the 60's while on baseline supplemental oxygen. Patient placed on CPAP en route to the hospital and then transitioned to BiPAP while in the emergency department. Noted improvement with BiPAP. Due to respiratory failure with hypoxia, patient will be admitted for further evaluation/treatment. Patient denies chest pain, nausea, vomiting, abdominal pain, urinary symptoms. Initial ED workup included laboratory studies and imaging. Significant laboratory findings include D-dimer 1.18, venous blood gas pH 7.27, pCO2 58.5, total CO2 27.8, creatinine 2.60, BUN 44, GFR 17, AST 44, CRP 34, BNP 2990. Imaging study included chest x-ray which I personally reviewed bilateral lower lung opacities pneumonia versus pulmonary edema. Patient assessed at bedside, she is without acute distress. Resting comfortably on BiPAP. Hemodynamically stable. Hospital Course Hospital Course Hospital Course: Patient was admitted to [facility] and treated for pneumonia and respiratory failure. She improved after being treated with BiPAP. She was found to be have E. coli bacteremia. She was treated with Levaquin and improved. She was eventially weaned down to 3 L/min per NC on the day of discharge. Exam Data for Last 24 hours Vital signs and Labs for Last 24 Hours: Temp Pulse Resp BP Pulse Ox O2 Del Method O2 Flow Rate 97.8 F 70 18 120/63 94 L Nasal Cannula 3 08/16/25 08:00 08/16/25 08:00 08/16/25 08:00 08/16/25 08:00 08/16/25 08:00 08/16/25 08:00 08/16/25 07:59 FiO2 3 08/16/25 08:00 Laboratory Results - last 24 hr 08/15/25 06:50: Total Counted 100, Neutrophils % (Manual) 87 H, Lymphocytes % (Manual) 8 L, Monocytes % (Manual) 5, Platelet Estimate Slight decrease, RBC Morphology Normal 08/15/25 11:01: POC Glucose 296 H 08/15/25 16:17: POC Glucose 296 H 08/15/25 22:04: POC Glucose 267 H 08/16/25 05:27: POC Glucose 224 H 08/16/25 05:45: WBC 8.8, RBC 2.91 L, Hgb 8.3 L, Hct 26.7 L, MCV 91.8, MCH 28.5, MCHC 31.1 L, RDW 14.1, Plt Count 111 L, MPV 10.3, Neut % (Auto) 75.2, Lymph % (Auto) 7.8 L, [place] % (Auto) 4.9, Eos % (Auto) 0.0 L, Baso % (Auto) 0.2, Neut # (Auto) 6.7, Lymph # (Auto) 0.7, [place] # (Auto) 0.4, Eos # (Auto) 0.0, Baso # (Auto) 0.0, Total Counted 100, Neutrophils % (Manual) 74, Lymphocytes % (Manual) 18, Monocytes % (Manual) 5, Eosinophils % (Manual) 3, Platelet Estimate Slight decrease, Hypochromasia 1+, Sodium 140, Potassium 4.3, Chloride 99, Carbon Dioxide 34 H, Anion Gap 11.3, BUN 60 H, Creatinine 1.90 H, Estimated Creat Clear 30, Estimated GFR 25 L, Est GFR ( Amer) 30 L, Glucose 185 H, Calcium 8.3 L I & O for Last 24 hours: Intake & Output 08/13/25 08/14/25 08/15/25 08/16/25 23:59 23:59 23:59 23:59 Intake Total 1350 / 1470 2284 / 2584 1228 / 1228 480 / 480 Output Total 1075 / 1075 1900 / 2150 2550 / 2550 950 / 950 Balance 275 / 395 384 / 434 -1322 / -1322 -470 / -470 Weight 199 lb 15.348 oz 199 lb 4.766 oz 199 lb 4.766 oz 200 lb 4.8 oz Microbiology Reports for the Last 24 Hours: Microbiology 08/11/25 18:55 Blood Blood Culture - Preliminary NO GROWTH AFTER 4 DAYS 08/14/25 13:30 Blood Blood Culture - Preliminary NO GROWTH AFTER 24 HOURS 08/14/25 13:25 Blood Blood Culture - Preliminary NO GROWTH AFTER 24 HOURS Constitutional Constitutional: no acute distress *Routine HEENT Exam Head: Present normocephalic Eye: Present EOMI and PERRL ENT: Present mucous membranes moist *Routine Neck Exam Neck: Present supple; Absent lymphadenopathy *Routine Respiratory Exam Respiratory: Present distant breath sounds; Absent wheezes *Routine Cardiovascular Exam Cardiovascular: Present RRR *Routine Abdominal Exam Abdominal: Present soft and normoactive bowel sounds; Absent tenderness *Routine Extremities Exam Extremities: Absent cyanosis, clubbing or edema *Routine Skin Exam Skin: Present warm; Absent rash *Routine Neurological Exam Neurological: Present alert and oriented X3 Results Data Completed and Pending Labs on day of discharge: Labs from last 24 hours 08/16/25 08/16/25 08/15/25 05:45 05:27 22:04 WBC 8.8 RBC 2.91 L Hgb 8.3 L Hct 26.7 L MCV 91.8 MCH 28.5 MCHC 31.1 L RDW 14.1 Plt Count 111 L MPV 10.3 Neut % (Auto) 75.2 Lymph % (Auto) 7.8 L [place] % (Auto) 4.9 Eos % (Auto) 0.0 L Baso % (Auto) 0.2 Neut # (Auto) 6.7 Lymph # (Auto) 0.7 [place] # (Auto) 0.4 Eos # (Auto) 0.0 Baso # (Auto) 0.0 Total Counted 100 Neutrophils % (Manual) 74 Lymphocytes % (Manual) 18 Monocytes % (Manual) 5 Eosinophils % (Manual) 3 Platelet Estimate Slight decrease RBC Morphology Hypochromasia 1+ Sodium 140 Potassium 4.3 Chloride 99 Carbon Dioxide 34 H Anion Gap 11.3 BUN 60 H Creatinine 1.90 H Estimated Creat Clear 30 Estimated GFR 25 L Est GFR ( Amer) 30 L Glucose 185 H POC Glucose 224 H 267 H Calcium 8.3 L 08/15/25 08/15/25 08/15/25 16:17 11:01 06:50 WBC RBC Hgb Hct MCV MCH MCHC RDW Plt Count MPV Neut % (Auto) Lymph % (Auto) [place] % (Auto) Eos % (Auto) Baso % (Auto) Neut # (Auto) Lymph # (Auto) [place] # (Auto) Eos # (Auto) Baso # (Auto) Total Counted 100 Neutrophils % (Manual) 87 H Lymphocytes % (Manual) 8 L Monocytes % (Manual) 5 Eosinophils % (Manual) Platelet Estimate Slight decrease RBC Morphology Normal Hypochromasia Sodium Potassium Chloride Carbon Dioxide Anion Gap BUN Creatinine Estimated Creat Clear Estimated GFR Est GFR ( Amer) Glucose POC Glucose 296 H 296 H Calcium Preliminary micro results at discharge 08/11/25 18:55 Blood Culture - Preliminary Blood NO GROWTH AFTER 4 DAYS 08/14/25 13:30 Blood Culture - Preliminary Blood NO GROWTH AFTER 24 HOURS 08/14/25 13:25 Blood Culture - Preliminary Blood NO GROWTH AFTER 24 HOURS 08/11/25 19:10 Blood Culture - Preliminary Blood DS: Diagnosis Discharge Diagnosis (1) Community acquired bilateral lower lobe pneumonia: Status: Acute Code(s): J18.9 - Pneumonia, unspecified organism (2) Acute on chronic respiratory failure with hypoxia and hypercapnia: Status: Acute Code(s): J96.21 - Acute and chronic respiratory failure with hypoxia; J96.22 - Acute and chronic respiratory failure with hypercapnia (3) Acute exacerbation of chronic obstructive pulmonary disease: Status: Acute Code(s): J44.1 - Chronic obstructive pulmonary disease with (acute) exacerbation (4) Bilateral lower extremity edema: Status: Acute Code(s): R60.0 - Localized edema (5) BRIDGETTE (obstructive sleep apnea): Status: Acute Code(s): G47.33 - Obstructive sleep apnea (adult) (pediatric) (6) D-dimer, elevated: Status: Acute Code(s): R79.89 - Other specified abnormal findings of blood chemistry (7) CKD (chronic kidney disease) stage 4, GFR 15-29 ml/min: Status: Acute Code(s): N18.4 - Chronic kidney disease, stage 4 (severe) (8) CHF (congestive heart failure): Status: Acute Code(s): I50.9 - Heart failure, unspecified Qualifiers: Heart failure chronicity: chronic Heart failure type: unspecified Qualified Code(s): I50.9 - Heart failure, unspecified (9) Thrombocytopenia: Status: Acute Code(s): D69.6 - Thrombocytopenia, unspecified (10) Diabetes: Status: Acute Code(s): E11.9 - Type 2 diabetes mellitus without complications Qualifiers: Diabetes mellitus type: type 2 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 use Diabetes mellitus complication status: without complication Qualified Code(s): E11.9 - Type 2 diabetes mellitus without complications (11) Hypertension: Status: Acute Code(s): I10 - Essential (primary) hypertension Qualifiers: Hypertension type: primary hypertension Qualified Code(s): I10 - Essential (primary) hypertension (12) Hyperlipidemia: Status: Acute Code(s): E78.5 - Hyperlipidemia, unspecified Qualifiers: Hyperlipidemia type: unspecified Qualified Code(s): E78.5 - Hyperlipidemia, unspecified (13) Elevated troponin: Status: Acute Code(s): R79.89 - Other specified abnormal findings of blood chemistry (14) Acute and chronic respiratory failure with hypoxia: Status: Acute Code(s): J96.21 - Acute and chronic respiratory failure with hypoxia (15) Pneumonia: Status: Acute Code(s): J18.9 - Pneumonia, unspecified organism (16) E coli bacteremia: Status: Acute Code(s): R78.81 - Bacteremia; B96.20 - Unspecified Escherichia coli [E. coli] as the cause of diseases classified elsewhere (17) Anemia: Status: Acute Code(s): D64.9 - Anemia, unspecified Meds Home Medications and Allergies Home Medications ?Medication ?Instructions ?Recorded ?Confirmed ?Type simvastatin 20 mg tablet 20 mg PO HS 03/06/18 08/11/25 History escitalopram oxalate 20 mg tablet 20 mg PO DAILY 11/10/23 08/11/25 History fluticasone 250 mcg-salmeterol 50 1 ea inhalation BIDRT 11/10/23 08/11/25 History mcg/dose blistr powdr for inhalation (Wixela Inhub) oxybutynin chloride 10 mg 20 mg PO DAILY 11/10/23 08/11/25 History tablet,extended release 24 hr esomeprazole magnesium 40 mg 40 mg PO DAILY 05/09/24 08/11/25 History capsule,delayed release fluticasone propionate 50 2 spray intranasal DAILY 05/12/24 08/11/25 History mcg/actuation nasal spray,suspension calcium carbonate (Calcium 600) 600 mg PO DAILY 07/08/24 08/11/25 History glucosamine sulfate 2KCl 1,000 mg 1,000 mg PO DAILY 07/08/24 08/11/25 History tablet acetaminophen 500 mg tablet 500 mg PO Q6HP PRN Mild Pain 04/02/25 08/11/25 History (Scale Score 1-4) ipratropium 0.5 mg-albuterol 3 mg 3 ml inhalation Q6HP PRN Shortness 04/02/25 08/11/25 History (2.5 mg base)/3 mL nebulization Of Breath soln lidocaine 4 % topical patch 1 patch topical DAILY PRN Pain 04/02/25 08/11/25 History montelukast 10 mg tablet 10 mg PO PM 04/02/25 08/11/25 History cyanocobalamin (vitamin B-12) 1,000 mcg PO DAILY 05/09/25 08/11/25 History 1,000 mcg tablet menthol 5 % topical gel (Biofreeze 1 ea topical QIDP PRN Pain 05/09/25 08/11/25 History (menthol)) amlodipine 5 mg tablet 5 mg PO DAILY 08/11/25 08/11/25 History bumetanide 0.5 mg tablet 0.5 mg PO DAILY 08/11/25 08/11/25 History metoprolol succinate 25 mg 12.5 mg PO DAILY 08/11/25 08/11/25 History tablet,extended release 24 hr nystatin 100,000 unit/gram topical 1 applic topical BID 08/11/25 08/11/25 History powder polyethylene glycol 3350 17 gram 17 g PO DAILYP PRN Constipation 08/11/25 08/12/25 History oral powder packet (Miralax) famotidine 20 mg tablet 20 mg PO DAILY 08/12/25 08/12/25 History levofloxacin 750 mg tablet 750 mg PO Q48H #5 tabs 08/16/25 Rx pregabalin 75 mg capsule 75 mg PO BID #60 caps 08/16/25 Rx New Prescriptions to Start Prescriptions: levofloxacin Tabor,Allan pregabalin Tabor,Allan Allergies Allergy/AdvReac Type Severity Reaction Status Date / Time pollen extracts (POLLEN Allergy Intermediate ASTHMA Verified 07/26/25 10:32 EXTRACTS) azithromycin Allergy Redness of Verified 07/26/25 10:32 Skin ceftriaxone (From Rocephin) Allergy Redness of Verified 07/26/25 10:32 Skin Discharge Plan Disposition Patient Disposition: Xfer SNF Condition: Fair Discharge Order Discharge Orders: Discharge Order (Routine); Ordered 08/16/25 Ordered By: Allan Adamson Follow up Plan Follow up with: Allan Adamson MD [Primary Care Provider, Medical] - Enter time for follow up Referral Note: Follow up at [place] Prescriptions/Medication Reconciliation: New levofloxacin 750 mg tablet 750 mg PO Q48H Qty: 5 0RF Continued fluticasone propion-salmeterol [Wixela Inhub] 250-50 mcg/dose blister with device 1 ea INHALATION BIDRT oxybutynin chloride 10 mg tablet extended release 24hr 20 mg PO DAILY Patient Comments: TAKE 2 TABLETS BY MOUTH ONCE DAILY escitalopram oxalate 20 mg tablet 20 mg PO DAILY calcium carbonate [Calcium 600] 600 mg calcium (1,500 mg) Tablet 600 mg PO DAILY glucosamine sulfate 2KCl 1,000 mg Tablet 1,000 mg PO DAILY Rx Instructions: administer with meals ipratropium-albuterol 0.5 mg-3 mg(2.5 mg base)/3 mL Solution For Nebulization 3 ml INHALATION Q6HP PRN (Reason: Shortness Of Breath) lidocaine 4 % Adhesive Patch,Medicated 1 patch TOPICAL DAILY PRN (Reason: Pain) acetaminophen 500 mg Tablet 500 mg PO Q6HP PRN (Reason: Mild Pain (Scale Score 1-4)) montelukast 10 mg tablet 10 mg PO PM cyanocobalamin (vitamin B-12) 1,000 mcg Tablet 1,000 mcg PO DAILY Biofreeze (menthol) 5 % Gel 1 ea TOPICAL QIDP PRN (Reason: Pain) amlodipine 5 mg Tablet 5 mg PO DAILY bumetanide 0.5 mg Tablet 0.5 mg PO DAILY metoprolol succinate 25 mg Tablet Extended Release 24 Hr 12.5 mg PO DAILY polyethylene glycol 3350 [Miralax] 17 gram Powder In Packet 17 g PO DAILYP PRN (Reason: Constipation) nystatin 100,000 unit/gram Powder 1 applic TOPICAL BID famotidine 20 mg tablet 20 mg PO DAILY pregabalin 75 mg Capsule 75 mg PO BID Qty: 60 0RF simvastatin 20 tablet 20 mg PO HS esomeprazole magnesium 40 mg capsule,delayed release(DR/EC) 40 mg PO DAILY fluticasone propionate 50 mcg/actuation [place],Suspension 2 spray INTRANASAL DAILY Rx Instructions: administer into each nostril Problem Reconciliation Problems Reviewed?: Yes Patient Discharge Instructions ACTIVITY: Continue current activity DIET: continue same diet Patient Instructions: DI for Bacteremia in Adults, Stop Light Pneumonia, Stop Light COPD, Stop Light Heart Failure Print Language: Chinese Providers Primary Care Provider: Allan Adamson Admit Provider: Cl Bailey Attending Provider: Allan Adamson
[2025-08-16] MEDS: ESCITALOPRAM 20MG TABLET 20 MG PO (09:35)
[2025-08-16] MEDS: OYSTER SHELL CALCIUM (ELEMENTAL) 500MG TAB 500 MG PO (09:35)
[2025-08-16] MEDS: BUMETANIDE 1 MG TABLET 0.5 MG PO (09:35)
[2025-08-16] MEDS: FLUTICASONE PROP 50MCG NASAL SPRAY 16GM 2 SPRAY NS (09:35)
[2025-08-16] MEDS: METOPROLOL SUCCINATE XL 25MG TABLET 12.5 MG PO (09:36)
[2025-08-16] MEDS: NYSTATIN TOPICAL POWDER 30GM TP (09:36)
[2025-08-16] MEDS: PREGABALIN 25MG CAPSULE 75 MG PO (09:37)
--- NOTE | 2025-08-16 10:02 | P.PN_ITS ---
Subjective *Date: 08/16/25 *Time: 13:03 Interval history: No acute respiratory vents overnight. Patient admits stable respiratory symptoms with no new respiratory complaints Pulmonology Exam Inpatient Vital signs and Labs for Last 24 Hours: Temp Pulse Resp BP Pulse Ox O2 Del Method O2 Flow Rate 97.8 F 67 18 139/66 96 Nasal Cannula 3 08/16/25 08:00 08/16/25 09:35 08/16/25 09:35 08/16/25 09:35 08/16/25 09:35 08/16/25 09:35 08/16/25 09:35 FiO2 3 08/16/25 08:00 Laboratory Results - last 24 hr 08/15/25 06:50: Total Counted 100, Neutrophils % (Manual) 87 H, Lymphocytes % (Manual) 8 L, Monocytes % (Manual) 5, Platelet Estimate Slight decrease, RBC Morphology Normal 08/15/25 11:01: POC Glucose 296 H 08/15/25 16:17: POC Glucose 296 H 08/15/25 22:04: POC Glucose 267 H 08/16/25 05:27: POC Glucose 224 H 08/16/25 05:45: WBC 8.8, RBC 2.91 L, Hgb 8.3 L, Hct 26.7 L, MCV 91.8, MCH 28.5, MCHC 31.1 L, RDW 14.1, Plt Count 111 L, MPV 10.3, Neut % (Auto) 75.2, Lymph % (Auto) 7.8 L, [place] % (Auto) 4.9, Eos % (Auto) 0.0 L, Baso % (Auto) 0.2, Neut # (Auto) 6.7, Lymph # (Auto) 0.7, [place] # (Auto) 0.4, Eos # (Auto) 0.0, Baso # (Auto) 0.0, Total Counted 100, Neutrophils % (Manual) 74, Lymphocytes % (Manual) 18, Monocytes % (Manual) 5, Eosinophils % (Manual) 3, Platelet Estimate Slight decrease, Hypochromasia 1+, Sodium 140, Potassium 4.3, Chloride 99, Carbon Dioxide 34 H, Anion Gap 11.3, BUN 60 H, Creatinine 1.90 H, Estimated Creat Clear 30, Estimated GFR 25 L, Est GFR ( Amer) 30 L, Glucose 185 H, Calcium 8.3 L Temp Pulse Resp BP Pulse Ox O2 Del Method FiO2 99.1 F 65 16 95/46 L 95 BiPAP 45 08/12/25 08:00 08/12/25 08:00 08/12/25 08:00 08/12/25 08:00 08/12/25 08:00 08/12/25 08:00 08/12/25 06:04 Laboratory Results - last 24 hr 08/11/25 18:55: WBC 8.7, RBC 3.25 L, Hgb 9.4 L, Hct 30.9 L, MCV 95.1, MCH 28.9, MCHC 30.4 L, RDW 15.3, Plt Count 109 L, MPV 10.3, Neut % (Auto) 76.7, Lymph % (Auto) 12.9, [place] % (Auto) 7.4, Eos % (Auto) 1.2, Baso % (Auto) 0.2, Neut # (Auto) 6.6, Lymph # (Auto) 1.1, [place] # (Auto) 0.6, Eos # (Auto) 0.1, Baso # (Auto) 0.0, D-Dimer 1.18 H, Sodium 140, Potassium 5.2 H, Chloride 102, Carbon Dioxide 31 H, Anion Gap 12.2, BUN 44 H, Creatinine 2.60 H, Estimated Creat Clear 22, Estimated GFR 17 L*, Est GFR ( Amer) 21 L, Glucose 157 H, Lactate 1.2, Calcium 9.1, Magnesium 1.6, Total Bilirubin 0.6, AST 44 H, ALT 20, Alkaline Phosphatase 92, Troponin I 0.01, C-Reactive Protein 34.1 H, NT-Pro-B Natriuret Pep 2990 H, Total Protein 7.2, Albumin 4.1, Globulin 3.1, Albumin/Globulin Ratio 1.3, Procalcitonin 0.238, TSH 1.09, Thyroxine (T4) 9.3 08/11/25 19:10: VBG pH 7.27 L, VBG pCO2 58.5 H, VBG pO2 34.6, VBG HCO3 26.0, VBG Total CO2 27.8 H, VBG O2 Saturation 61.4, VBG Base Excess -1.0, VBG Lactic Acid 1.5, A. baumannii (PCR) Not detected, Bacteroides fragilis Not detected, Cara albicans (PCR) Not detected, Cara auris (PCR) Not detected, C. glabrata (PCR) Not detected, C. krusei (PCR) Not detected, C. parapsilosis (PCR) Not detected, C. tropicalis (PCR) Not detected, Cryptococcus neoformans PCR Not detected, Enterobacterales (PCR) Detected A, Enterococc faecalis PCR Not detected, Enterococc faecium PCR Not detected, E. coli (PCR) Detected A, H. influenzae DNA Not detected, Klebsiella aerogenes (PCR) Not detected, Klebsiella oxytoca PCR Not detected, K. pneumoniae group (PCR) Not detected, List. monocytogenes PCR Not detected, N. meningitidis (PCR) Not detected, Proteus species (PCR) Not detected, Salmonella spp. (PCR) Not detected, Serratia marcescens PCR Not detected, Staphylococcus sp PCR Not detected, Staph aureus (PCR) Not detected, mecA/C & MREJ Resist Gene Not applicable, mecA/C-Methicil Resis Gene Not applicable, Staph epidermidis (PCR) Not detected, Staph lugdunensis (TEM-PCR) Not detected, S. maltophilia (PCR) Not detected, Streptococcus sp PCR Not detected, S.agalactiae Grp B ARGELIA Not detected, Strep pneumoniae (PCR) Not detected, S. pyogenes GrpA ARGELIA Not detected, P. aeruginosa (PCR) Not detected, [place]/B-Vanco Res Genes Not applicable, blaIMP Car res Gene PCR Not detected, KPC-Carbap Res Gene PCR Not detected, blaNDM Car Res Gene PCR Not detected, OXA- 48 Carbapenem Resis Gene (PCR) Not detected, blaVIM Car Res Gene PCR Not detected, CTX-M Gene Resistance (PCR) Not detected, MCR-1 Resistance Gene Not detected 08/11/25 19:19: SARS-CoV-2 (PCR) Not detected, Influenza A Untype (PCR) Not detected, Influenza Type B (PCR) Not detected 08/11/25 21:12: Troponin I 0.16 H 08/11/25 21:55: Specimen Source Right radial, O2 % 6l, ABG pH 7.31 L, ABG pCO2 57.1 H, ABG pO2 48.1 L, ABG HCO3 28.3 H, ABG Total CO2 30.1 H, ABG O2 Saturation 81 L*, ABG Base Excess 2.1, Janusz Test Acceptable 08/12/25 01:14: Troponin I 0.25 H 08/12/25 04:07: WBC 10.3, RBC 3.09 L, Hgb 8.9 L, Hct 29.3 L, MCV 94.8, MCH 28.8, MCHC 30.4 L, RDW 15.0, Plt Count 103 L, MPV 10.7 H, Neut % (Auto) 91.8 H, Lymph % (Auto) 3.4 L, [place] % (Auto) 3.7, Eos % (Auto) 0.0 L, Baso % (Auto) 0.2, Neut # (Auto) 9.5 H, Lymph # (Auto) 0.4 L, [place] # (Auto) 0.4, Eos # (Auto) 0.0, Baso # (Auto) 0.0, Total Counted 100, Neutrophils % (Manual) 94 H, Lymphocytes % (Manual) 5 L, Monocytes % (Manual) 1 L, Platelet Estimate Slight decrease, RBC Morphology Normal, Sodium 139, Potassium 5.0, Chloride 102, Carbon Dioxide 32 H, Anion Gap 10.0, BUN 45 H, Creatinine 2.70 H, Estimated Creat Clear 21, Estimated GFR 17 L*, Est GFR ( Amer) 20 L, Glucose 183 H, Calcium 8.6, Total Bilirubin 0.4, AST 41 H, ALT 22, Alkaline Phosphatase 77, Troponin I 0.30 H, Total Protein 7.1, Albumin 4.1, Globulin 3.0, Albumin/Globulin Ratio 1.4 08/12/25 05:02: POC Glucose 207 H 08/12/25 08:00: VBG pH 7.37, VBG pCO2 53.3 H, VBG pO2 41.5 H, VBG HCO3 29.8, VBG Total CO2 31.5 H, VBG O2 Saturation 77.2 H, VBG Base Excess 4.5 H, VBG Lactic Acid 2.4 H I & O for Labs for Last 24 Hours: Intake & Output 08/13/25 08/14/25 08/15/25 08/16/25 23:59 23:59 23:59 23:59 Intake Total 1350 / 1470 2284 / 2584 1228 / 1228 480 / 480 Output Total 1075 / 1075 1900 / 2150 2550 / 2550 950 / 950 Balance 275 / 395 384 / 434 -1322 / -1322 -470 / -470 Weight 199 lb 15.348 oz 199 lb 4.766 oz 199 lb 4.766 oz 200 lb 4.8 oz Intake & Output 08/09/25 08/10/25 08/11/25 08/12/25 23:59 23:59 23:59 23:59 Intake Total 200 / 200 Output Total 200 / 200 550 / 550 Balance 0 / 0 -550 / -550 Weight 200 lb 199 lb 15.348 oz Microbiology Reports for the Last 24 Hours: Microbiology 08/11/25 18:55 Blood Blood Culture - Preliminary NO GROWTH AFTER 4 DAYS 08/14/25 13:30 Blood Blood Culture - Preliminary NO GROWTH AFTER 24 HOURS 08/14/25 13:25 Blood Blood Culture - Preliminary NO GROWTH AFTER 24 HOURS Microbiology 08/11/25 19:10 Blood Blood Culture - Preliminary Constitutional: Present mild distress Head: Present normocephalic and atraumatic ENT: Present normal exam, normal oropharynx and mucous membranes moist Neck: Present normal inspection and full ROM Respiratory: Present rhonchi and able to speak in complete sentences; Absent respiratory distress, wheezes or diminished air movement Cardiac: Present S1/S2, Tachycardia and radial pulses present GI: Present soft and distention; Absent tenderness or guarding Rectal (female): Present deferred (female): Present deferred Skin: Present intact; Absent cyanosis or jaundice Neuro: Present alert, awake and oriented x 3 Extremities: Present normal inspection and edema; Absent clubbing or cyanosis Psychiatric: Present normal affect and cooperative Assessment and Plan *Assessment and plan (1) Acute and chronic respiratory failure with hypoxia: Status: Acute Category: Medical Code(s): J96.21 - Acute and chronic respiratory failure with hypoxia (2) Acute exacerbation of chronic obstructive pulmonary disease: Status: Acute Category: Medical Code(s): J44.1 - Chronic obstructive pulmonary disease with (acute) exacerbation (3) Pneumonia: Status: Acute Category: Medical Code(s): J18.9 - Pneumonia, unspecified organism Plan Ms. Nascimento is a 84-year-old female with reported history of COPD chronic hypoxic respiratory failure CKD diabetes mellitus hypertension dyslipidemia [place] [facility] [place] [facility] of worsening respiratory distress found to be hypoxic hypercarbic respiratory failure needing noninvasive ventilator therapy and pulmonary was called for further evaluation and management. She is following with cardiology, promotes echocardiogram from outside hospital normal EF at 85%, normal diastolic function. Afebrile hemodynamically stable. No evidence of leukocytosis. BNP elevated though improved from prior. Elevated troponins. CKD. Blood gas upon admission mixed metabolic and resp acoidosis with pH of 7.27 and pCO2 58.5, subsequent blood gas showed improvement with 7.37 and 53.3. Chest x-ray upon admission bilateral lower lobe predominant infiltrates, concerning left pleural effusion and right hilar infiltrate. CT chest from April 2025 station 7 and 4R and right hilar lymphadenopathy and also noted to have airspace disease in that CT scan. Right middle lobe and lower lobe pleural-based lesions can well be airspace disease though need repeat scan for further follow-up. Currently being managed for pneumonia COPD exacerbation with steroids, levofloxacin and nebulization therapies. Also receiving Bumex 0.5 mg daily for diuresis, holding. CT chest bilateral diffuse ground glass opacities and also patchy airspace disease predominantly in the left lower lobe. Also medial right upper lobe medial patchy airspace disease noted. Mediastinal lymphadenopathy. No significant effusions noted. Coronary artery calcifications noted. Interval data: Blood cultures upon admission 1 bottle E. coli. Repeat blood cultures no growth so far. Continue to receive levofloxacin for airspace disease. Afebrile. Hemodynamically stable. No evidence of leukocytosis. Completed 5-day course of prednisone. Plan: Recommend to continue levofloxacin x 7 days from the date of negative blood cultures which is 08/14/2025. Currently receiving Advair 250 twice daily. Continue along with DuoNebs 4 times daily as needed. # Thank you for involving pulmonary in this patient care. Will follow the patient in pulmonary clinic 1 to 2 weeks post discharge.
[2025-08-16 11:21] LABS: POC Glucose,Bedside 203 gm/dL (70-110)
[2025-08-16 12:05] LABS: POC Glucose,Bedside 305 gm/dL (70-110)
--- NOTE | 2025-08-16 14:00 | PC.NURSE ---
Report given to NEO Ivey.
== END 2025-08-16 14:58 | DRG 193 ==
LOC: ER 19:22 → ICU 21:08 → 2ND 08-15 14:50
PROVIDERS: Internal Medicine Pulmonary Disease; Nurse Practitioner Acute Care; Admitting Provider Student in an Organized Health Care Education/Training Program; Emergency Provider Emergency Medicine; PCP Family Medicine; Visit Provider Family Medicine
DX: J18.9 Pneumonia, unspecified organism (principal); J96.21 Acute and chronic respiratory failure with hypoxia; J96.22 Acute and chronic respiratory failure with hypercapnia; J44.0 Chronic obstructive pulmonary disease with (acute) lower respiratory infection; J44.1 Chronic obstructive pulmonary disease with (acute) exacerbation; N18.4 Chronic kidney disease, stage 4 (severe); I13.0 Hypertensive heart and chronic kidney disease with heart failure and stage 1 through stage 4 chronic kidney disease, or unspecified chronic kidney disease; E87.4 Mixed disorder of acid-base balance; R78.81 Bacteremia; Z66 Do not resuscitate; Z99.81 Dependence on supplemental oxygen; G47.33 Obstructive sleep apnea (adult) (pediatric); I50.9 Heart failure, unspecified; D69.6 Thrombocytopenia, unspecified; E11.22 Type 2 diabetes mellitus with diabetic chronic kidney disease; E78.5 Hyperlipidemia, unspecified; D63.1 Anemia in chronic kidney disease; Z88.1 Allergy status to other antibiotic agents; Z91.048 Other nonmedicinal substance allergy status; I48.0 Paroxysmal atrial fibrillation; K21.9 Gastro-esophageal reflux disease without esophagitis; Z87.891 Personal history of nicotine dependence; E11.40 Type 2 diabetes mellitus with diabetic neuropathy, unspecified; F32.A Depression, unspecified; Z96.653 Presence of artificial knee joint, bilateral; Z96.643 Presence of artificial hip joint, bilateral; Z96.662 Presence of left artificial ankle joint; E66.9 Obesity, unspecified; Z68.36 Body mass index [BMI] 36.0-36.9, adult; E87.5 Hyperkalemia; B96.20 Unspecified Escherichia coli [E. coli] as the cause of diseases classified elsewhere; R79.89 Other specified abnormal findings of blood chemistry
CPT/HCPCS: 36415; 36600; 71045; 71250; 80048; 80053; 82272; 82803; 82962; 83605; 83735; 83880; 84145; 84436; 84443; 84484; 85007; 85025; 85378; 86140; 87040; 87077; 87154; 87636; 89220; 93005; 93308; 94640; 94660; 94761; 97163; 97166; 97530; 99285; G0328; J1644; J1939; J1956; J2919; J3475; J7030